=== PATIENT | female | born 1975 | race Caucasian/White ===

== ENCOUNTER 2017-11-21 12:58 | Emergency (ER) | payer MEDICAID, SELFPAY ==
[2017-11-21 12:59] VITALS: BP 151/93; PULSE 75; RESP 17; TEMP 36.9; O2SAT 95; BMI 81.8
--- NOTE | 2017-11-21 14:13 | ED.DCSUM_ITS ---
- ER Visit Summary Date of Service: 11/21/17 Chief Complaint: Abdominal wound evaluation History of Present Illness: The patient is a 42 F orbitally obese female who had a 9 years ago and has had trouble with the wound healing ever since. She states yesterday she noticed that a small area is open that was not before. It is unknown when this occurred. She has no pain or fevers, there is a much larger open area that is also not bothering her. She has trouble bandaging the area because of her obesity and the location on the underside of her pannus. Incidentally she has had about 1 week of upper respiratory infection symptoms with congestion, rhinorrhea, nonproductive cough, dry mouth. No dyspnea with exertion, wheezing, headache, facial pain, fevers. Physical Examination: Other than mild hypertension her vital signs are normal and she is well-appearing. Morbidly obese. On the underside of her pannus there is a vertical scar, there appears to be a chronic dehiscence of this at the caudal aspect of it, maybe 6 cm or so in length, superficial. There is a second 1 superior to this that is around 1-2 cm in length, also superficial and nontender. All of this area is nontender, without any signs of cellulitis or discharge or abscess. Lungs are clear to auscultation throughout, no cervical lymphadenopathy, TMs normal bilaterally. Posterior pharynx is clear. Lips are dry oral mucous membranes are moist. No sinus tenderness. Test Results: n/a Emergency Department Course and Treatment: Reassured. Her wound dehiscence is of unknown age and suturing for healing by primary intent is not indicated. We placed gauze packing/dressing with Mastisol for increased adhesion, and reevaluation with her PCP. No indication for antibiotics at this time for this , or her upper respiratory infection, which I think is viral. Advised that she could take Coricidin high blood pressure or Afrin as needed for symptoms. Treatment Plan: As above, supportive Disposition: Discharge home Impression: Chronic abdominal wound dehiscence Viral upper respiratory infection This note was generated with [employer] software. It may contain incorrect words, spelling, and punctuation that were not noted in review of the chart prior to signing ED Disposition - Plan for ED Patient: Disposition: Home or Assisted Living Chief Complaint: Wound Instructions: ED Burn Wound Check No Infec, ED URI Viral Referrals: Franco Bardales DO [Primary Care Provider] - 3-5 Days
== END 2017-11-21 14:29 | disposition home or self-care (01) ==
PROVIDERS: Emergency Provider Emergency Medicine; Family Provider Student in an Organized Health Care Education/Training Program; PCP Student in an Organized Health Care Education/Training Program
DX: T81.30XA Disruption of wound, unspecified, initial encounter (principal); J06.9 Acute upper respiratory infection, unspecified; E66.01 Morbid (severe) obesity due to excess calories; I10 Essential (primary) hypertension; R73.03 Prediabetes; R11.0 Nausea; Z79.899 Other long term (current) drug therapy
CPT/HCPCS: 99282

== ENCOUNTER 2018-03-08 00:42 | Emergency (ER) | payer MEDICAID, SELFPAY ==
--- NOTE | 2018-03-08 00:42 | DT_ITS ---
This patient was seen during an EMR downtime March 08, 2018 - March 15, 2018. This patient may have a combination of paper and electronic documentation or all paper documentation. All documentation is viewable within the e-chart portion of [employer] for each patient visit.
[2018-03-08 00:43] VITALS: BP 144/86; PULSE 91; RESP 20; TEMP 36.9; O2SAT 98; BMI 97.9
--- NOTE | 2018-03-08 00:54 | CT_ITS ---
STUDY: CT ABDOMEN AND PELVIS WITHOUT CONTRAST REASON FOR EXAM: Female, 42 years old. Hernia, abdominal pain RADIATION DOSAGE (If Supplied By Facility): CTDIvol = ( 24.18 ) mGy, DLP = ( 1579.66 ) mGycm TECHNIQUE: Transaxial 2.5 mm images were obtained from the dome of the diaphragm to the symphysis pubis without oral contrast, and without intravenous contrast. Sagittal and coronal images were reconstructed. This examination is limited for the evaluation of gastrointestinal, solid organs and vascular structures due to the lack of intravenous and oral contrast. There is obesity, the entirety of soft tissue is not imaged. There is poor [id number] ratio limiting the examination. The anterior abdominal wall cutaneous tissue and portion of the peritoneum are not included. Individualized dose optimization techniques were used for this CT. COMPARISON: None. FINDINGS: The visualized lung bases are unremarkable. The visualized portions of the heart are within normal limits. There is decreased attenuation of the enlarged liver consistent with steatosis. There are surgical clips in the gallbladder fossa consistent with a prior cholecystectomy. Normal spleen. Poorly visualized pancreas and bilateral adrenal glands. No overt significant hydronephrosis. Calcification left inferior renal pole likely nonobstructing calculus. Normal visualized stomach. What is seen of the intraperitoneal small and large bowel is nonobstructed. Extremely limited gastrointestinal assessment. There is non-visualization of the appendix. Normal abdominal aorta. Normal inferior vena cava. Normal retroperitoneum. Normal urinary bladder. There is a portion of a left lower anterior abdominal wall hernia containing small bowel partially imaged, opening of the hernia appears to be 4.5 cm coronal image 23. Hernia sac and hernia content detail is not included on the images. Fat attenuation of the inferior pannus partially noted. Retrolisthesis L5 on S1. Joint space narrowing. CT/Abdomen/Pelvis without Cont IMPRESSION: Extremely limited examination, the majority of the anterior abdominal subcutaneous tissue, wall and anterior peritoneal are not included in the [id number]. Portion of a left anterior inferior abdominal wall hernia with an opening of 4.5 cm containing small bowel is imaged. No overt colonic or small bowel obstruction, ascites or pneumoperitoneum on submitted images. Hepatomegaly and hepatic steatosis. Cholecystectomy. Nonobstructing left inferior renal pole calculus. Electronically Signed: Marisol Harris MD at 2:52 EDT , Service support ,
--- NOTE | 2018-03-08 01:01 | ED.VISSUMM ---
- ER Visit Summary Date of Service: 03/08/18 Chief Complaint: [] Abdominal pain History of Present Illness: The patient is a 42 F [] who is extremely morbidly obese weighing over 500 pounds presenting with abdominal pain around her umbilical area. Her mother is at the bedside. The patient is concerned for umbilical hernia. She has an extremely large abdomen with a very large pannus. She reports she is taking Bactrim and Keflex for a nonhealing incision from over 10 years ago. In review of her pill bottles she has been noncompliant since the date of the onset of the antibiotic prescription for this wound. Her main concern however is not this nonhealing wound but rather the pain from her umbilical area. She does report a previous surgical history of cholecystectomy. Past medical history of borderline diabetes, hypertension, enlarged liver, thyroid disease. Physical Examination: [] Afebrile, vital signs stable. 42-year-old female in no acute distress. Extreme morbid obesity. Patient is conversational. Cardiovascular exam is regular rate and rhythm. Lungs are clear to auscultation however there is diminished breath sounds secondary to body habitus. Abdomen is morbidly obese with tenderness around the umbilical area. It is hard to determine on palpation if what I am palpating is an incarcerated hernia or just soft tissue/adipose. Test Results: [] Labs: CT of the abdomen/pelvis without contrast: Emergency Department Course and Treatment: [] Patient given intravenous fluid bolus, Phenergan, Dilaudid. Treatment Plan: [] Disposition: [] Impression: [] This note was generated with [employer] dictation software. It may contain incorrect words, spelling, and punctuation that were not noted in review of the chart prior to signing ED Disposition - Plan for ED Patient: Chief Complaint: Abd Pain Referrals: Franco Bardales DO [Primary Care Provider] -
[2018-03-08] MEDS: proMETHazine 25 MG/ML Syringe 6.25 MG IV (01:12)
[2018-03-08] MEDS: 0.9% Normal Saline 1,000 ML 1000 ML IV (01:13)
[2018-03-08] MEDS: HYDROmorphone 1 MG/ML Syringe IV (01:13)
[2018-03-08 02:44] LABS: Absolute Neutrophil Count 12.2 X10^3/uL (2.0-7.7); Basophil# 0.03 X10^3/uL; Basophil% 0.2 % (0-1); Eosinophil# 0.29 X10^3/uL; Eosinophils% 1.9 % (0-5); Hematocrit 39.5 % (37-47); Hemoglobin 12.3 g/dl (12.0-15.0); Lymphocyte % 14.7 % (19-41); Mean Corp Hgb Conc 31.1 g/gl (32-36); Mean Corpuscular Hgb 29.8 pg (27.0-32.0); Mean Corpuscular Volume 95.6 fL (81-99); Mean Platelet Vol. 10.5 fl (6.2-12.0); Monocyte# 0.82 X10^3/uL; Monocyte% 5.2 % (0-10); Neutrophil # 12.18 X10^3/uL (2.7-7.7); Neutrophil % 77.7 % (47-70); Platelet Count 277 K/mm3 (150-450); RBC Distribution Width CV 14.2 % (11.6-14.6); RBC Distribution Width SD 47.9 fl (35.1-43.9); Red Blood Count 4.13 M/mm3 (4.2-5.4); White Blood Count 15.7 K/mm3 (4.4-11.0)
[2018-03-08 02:49] LABS: POSITIVE COUNT NO; POSITIVE DIFFERENTIAL NO; POSITIVE MORPHOLOGY NO
[2018-03-08 02:50] VITALS: BP 140/70; PULSE 85; RESP 16; O2SAT 94
[2018-03-08 02:52] LABS: AST(SGOT) 21 U/L (15-37); Alanine Aminotransfer ALT/SGPT 23 U/L (13-56); Albumin, Serum 3.6 g/dL (3.2-5.0); Alkaline Phosphatase 51 U/L (45-117); Anion Gap 7 (5-15); BUN 10 mg/dL (7-18); BUN/Creat Ratio 9.7 RATIO (10-20); Chloride 102 mmol/L (98-107); Creatinine, Serum 1.03 mg/dL (0.55-1.02); EST Glomerular Filtration Rate 62 mL/min (>60); Est Glom Filt Rate - Afr Amer 75 mL/min (>60); Estimated Creatinine Clearance 53.69 ml/min; Globulin 4.5 g/dL (2.2-4.2); Glucose 111 mg/dL (74-106); Lipase 168 U/L (73-393); Potassium 3.7 mmol/L (3.5-5.1); Protein, Total 8.1 g/dL (6.4-8.2); Sodium Level 139 mmol/L (136-145)
[2018-03-08 02:55] LABS: International Normalized Ratio 0.9; Prothrombin Time (Protime)PT. 12.6 SECONDS (11.7-14.9)
[2018-03-08 03:04] LABS: Lactic Acid 1.4 mmol/L (0.4-2.0)
[2018-03-08 03:15] VITALS: BP 145/84; RESP 18; O2SAT 96
--- NOTE | 2018-03-15 08:07 | ED.RN ---
see downtime documentation
== END 2018-03-08 07:00 | disposition short-term general hospital (02) ==
LOC: ED 02:06
PROVIDERS: Emergency Provider Emergency Medicine; Family Provider Student in an Organized Health Care Education/Training Program; PCP Student in an Organized Health Care Education/Training Program
DX: R10.9 Unspecified abdominal pain (principal); E11.9 Type 2 diabetes mellitus without complications; I10 Essential (primary) hypertension; E66.01 Morbid (severe) obesity due to excess calories; R16.0 Hepatomegaly, not elsewhere classified; E07.9 Disorder of thyroid, unspecified
CPT/HCPCS: 36415; 74176; 80048; 80076; 83605; 83690; 85025; 85610; 86850; 86900; 96374; 96375; 96376; 99282; 99284; J7030; A4216

== ENCOUNTER 2018-05-06 15:10 | Inpatient (IN) | payer MEDICAID, SELFPAY ==
[2018-05-06 15:11] VITALS: BP 127/84; PULSE 106; RESP 20; TEMP 36.7; O2SAT 98; BMI 90.6
--- NOTE | 2018-05-06 15:30 | EKG12_ITS ---
Test Reason : WOUND Blood Pressure : / mmHG Vent. Rate : 098 BPM Atrial Rate : 098 BPM P-R Int : 166 ms QRS Dur : 086 ms QT Int : 352 ms P-R-T Axes : 062 005 029 degrees QTc Int : 449 ms Normal sinus rhythm Normal ECG Confirmed by GRACIE GILMORE, BROOKE ([id number]), society editor DON FARRELL ([id number]) on 05/10/2018 2:25:42 PM Referred By: FADY Confirmed By:BROOKE BOWMAN MD
--- NOTE | 2018-05-06 15:36 | ED.DCSUM_ITS ---
- ER Visit Summary Date of Service: 05/06/18 Chief Complaint: Abdominal wall infection History of Present Illness: The patient is a 42 F presenting with abdominal wall infection. She states this has been going on for some time and has worsened over the past several days. She was recently on Bactrim and Keflex. She finished these antibiotics over a week ago. She is not currently on antibiotics. She saw her primary care physician today who sent her to the ED for IV antibiotics. Physical Examination: Vitals are stable. Patient is afebrile. Alert no acute distress. HEENT exam is unremarkable. Lungs are clear and equal bilaterally. Heart is regular and tachycardic Abdomen is soft morbidly obese, erythema inferior aspect of the pannus with 8 cm open wound with foul-smelling purulent drainage Extremities: mild bilateral lower extremity erythema Skin is warm and dry. Remainder of exam is unremarkable. Emergency Department Course and Treatment: Patient is given Clindamycin IV. CBC shows a white count of 11.6. Chemistry is unremarkable other than potassium 3.3. Lactic acid 2.2. Blood cultures were sent. EKG is sinus rate of 98 with no acute ischemic changes. Chest x-ray shows right elevated hemidiaphragm which is nonspecific otherwise no acute process. Patient has failed outpatient treatment. Will discuss with the hospitalist for admission for IV antibiotics. Disposition: Admission Impression: Abdominal wall cellulitis This note was generated with [employer] dictation software. It may contain incorrect words, spelling, and punctuation that were not noted in review of the chart prior to signing ED Disposition - Plan for ED Patient: Chief Complaint: Wound Referrals: Franco Bardales DO [Primary Care Provider] -
--- NOTE | 2018-05-06 15:45 | RAD_ITS ---
STUDY: X-RAY CHEST REASON FOR EXAM: Female, 42 years old. Shortness of breath, dyspnea. Abdominal infection. TECHNIQUE: Portable chest AP upright COMPARISON: 05/12/2017. FINDINGS: Elevated right hemidiaphragm. Clear lungs. Normal cardiomediastinal silhouette, donn and pleural margins. No acute osseous or upper abdominal process is evident. RAD/Chest 1 View (Portable) IMPRESSION: Elevated hemidiaphragm on the right. Nonspecific. Otherwise no acute cardiopulmonary process is evident. Electronically Signed: Karthik Smart, at 16:27 EDT Tel , Service support ,
[2018-05-06 17:14] VITALS: BP 122/78; PULSE 102; RESP 18; O2SAT 97
[2018-05-06 17:24] LABS: Absolute Lymphocyte Count 2.75 X10^3/ul (0.83-4.51); Absolute Neutrophil Count 7.7 X10^3/uL (2.0-7.7); Basophil# 0.04 X10^3/uL; Basophil% 0.3 % (0-1); Eosinophil# 0.46 X10^3/uL; Hematocrit 38.1 % (37-47); Hemoglobin 11.7 g/dl (12.0-15.0); Lymphocyte # 2.75 X10^3/ul (4.0); Lymphocyte % 23.7 % (19-41); Mean Corp Hgb Conc 30.7 g/gl (32-36); Mean Corpuscular Hgb 26.8 pg (27.0-32.0); Mean Corpuscular Volume 87.2 fL (81-99); Mean Platelet Vol. 10.6 fl (6.2-12.0); Monocyte# 0.66 X10^3/uL; Monocyte% 5.7 % (0-10); Neutrophil # 7.66 X10^3/uL (2.7-7.7); Neutrophil % 66.1 % (47-70); Platelet Count 293 K/mm3 (150-450); RBC Distribution Width CV 14.3 % (11.6-14.6); RBC Distribution Width SD 45.7 fl (35.1-43.9); Red Blood Count 4.37 M/mm3 (4.2-5.4); White Blood Count 11.6 K/mm3 (4.4-11.0)
[2018-05-06 17:31] LABS: POSITIVE COUNT NO; POSITIVE DIFFERENTIAL NO; POSITIVE MORPHOLOGY NO
[2018-05-06 17:40] LABS: Anion Gap 5 (5-15); BUN 7 mg/dL (7-18); BUN/Creat Ratio 8.8 RATIO (10-20); Calcium,Total 8.9 mg/dL (8.5-10.1); Chloride 106 mmol/L (98-107); EST Glomerular Filtration Rate 83 mL/min (>60); Est Glom Filt Rate - Afr Amer 101 mL/min (>60); Estimated Creatinine Clearance 69.13 ml/min; Glucose 89 mg/dL (74-106); Potassium 3.3 mmol/L (3.5-5.1); Sodium Level 140 mmol/L (136-145)
[2018-05-06 17:51] LABS: Lactic Acid 2.2 mmol/L (0.4-2.0)
--- NOTE | 2018-05-06 17:56 | ED.RN ---
PT VERBALIZES UNABLE TO GIVE URINE SAMPLE AT THIS TIME
[2018-05-06 19:48] VITALS: BP 120/62; PULSE 83; RESP 18; O2SAT 97
--- NOTE | 2018-05-06 19:55 | HP.PCM_ITS ---
Problem List (1) Panniculitis Status: Acute (2) Anxiety and depression Status: Chronic (3) Allergic rhinitis Status: Chronic Qualifiers: Allergic rhinitis trigger: unspecified (4) MARCE (obstructive sleep apnea) Status: Chronic Comment: not on CPAP (pt refusal) (5) Asthma Status: Chronic Qualifiers: Asthma severity: unspecified severity Asthma persistence: unspecified Asthma complication type: unspecified Qualified Code(s): J45.909 - Unspecified asthma, uncomplicated (6) Prediabetes Status: Chronic (7) Hypertension Status: Chronic Qualifiers: Hypertension type: essential hypertension Qualified Code(s): I10 - Essential (primary) hypertension (8) Hypothyroid Status: Chronic Qualifiers: Hypothyroidism type: unspecified Qualified Code(s): E03.9 - Hypothyroidism , unspecified History of Present Illness Date of Admission: 05/06/18 Chief Complaint: Abdominal fold redness, infection ongoing despite outpatient treatment. The patient is a 42 y/o F w/ PMHx: Morbid Obesity, Asthma, MARCE refusing to wear CPAP, Pre-Diabetes mellitus mellitus, HTN, GERD, Anxiety and Depression, Allergic Rhinitis, Hypothyroidism who presents to the [facility] ED on 05/06/18 with history of prolonged difficulties w/ abdominal wall/pannicular cellulitis most recently treated inpatient ~ 2 months prior at [facility] with improvement; however, worsened again recently after completion of outpatient abx therapy (~2 weeks prior) w/ PCP directed abx attempt (3 total including bactrim, keflex and another unclear agent) outpatient but not resolving with no associated fevers or chills. Patient notes she needs to have resolution of the infection in order to continue with future plans for panniculectomy although she does need to loose more weight prior. Workup in the ED included T 98.1, heart rate 106, BP 127/84, respiratory rate 22, 98% on room air, CBC w/ WBC 11.6, Hgb 11.7, Plts 293 without marked shift, BMP w/ K 3.3, LA 2.2, CXR with elevated R hemidiaphragm otherwise not marked appearing, Bld Cx x 2 obtained in the ED. In the ED patient administered Clindamycin. Past Medical History Past Medical History (Chronic Problems): Chronic Problems Anxiety and depression (Chronic) Allergic rhinitis (Chronic) MARCE (obstructive sleep apnea) (Chronic) not on CPAP (pt refusal) Obesity, Class III, BMI 40-49.9 (morbid obesity) (Chronic) Asthma (Chronic) Super-super obese (Chronic) Prediabetes (Chronic) Hypertension (Chronic) Hypothyroid (Chronic) Allergies diphenhydramine HCl [From Benadryl] Allergy (Verified 05/06/18 15:13) Hives metronidazole [From Flagyl] Allergy (Verified 05/06/18 15:13) Rash venom-honey bee [bee venom (honey bee)] Allergy (Verified 05/06/18 15:13) Anaphylaxis aspirin Adverse Reaction (Verified 05/06/18 15:13) Upset Stomach codeine Adverse Reaction (Verified 05/06/18 15:13) Other ibuprofen Adverse Reaction (Verified 05/06/18 15:13) Upset Stomach Penicillins Adverse Reaction (Verified 05/06/18 15:13) Nausea Home Medications: Ambulatory Orders Medication Instructions Recorded Lisinopril/Hydrochlorothiazide 1 tablet PO DAILY 03/08/18 [Zestoretic 10/12.5 Tablet] Loratadine [Claritin] 10 mg PO DAILY 03/08/18 Montelukast Sodium [Singulair] 10 mg PO DAILY 03/08/18 Omeprazole [Prilosec] 20 mg PO DAILY 03/08/18 Sertraline HCl [Zoloft] 100 mg PO DAILY 03/08/18 Dimethicone/Da/Vit A,C,E/Kristian 1 applic TP PRN PRN 05/06/18 [Gold Mustafa Ult Diabetic Cream] Levothyroxine Sodium [Synthroid] 300 mcg PO DAILY 05/06/18 Naproxen Sodium [Aleve] 440 mg PO PRN PRN 05/06/18 Surgical History: - - ?3, cholecystectomy, tonsillectomy. Psychiatric History: Anxiety, Depression PROCESSING ASSISTANT History: No pertinent PROCESSING ASSISTANT history Lives: With Family - Patient lives with her 3 children. Smoking Status: Never smoker Tobacco Use: Non-smoker Alcohol: None Drugs: None - *Family History Maternal History Items: - - Patient notes a maternal and paternal family history of heart disease, diabetes, high cholesterol, cancer. Paternal History Items: - - Patient notes a maternal and paternal family history of heart disease, diabetes, high cholesterol, cancer. Review of Systems Constitutional: Reports: Malaise, Weakness, Fatigue. Denies: Chills, Fever, Weight Change HEENT: Denies: Head Aches, Sinus Congestion, Sinus Drainage Cardiovascular: Denies: Chest Pain, Palpitations Respiratory: Reports: Shortness of breath upon exertion. Denies: Cough, Shortness of breath at rest, Sputum production Gastrointestinal: Denies: Abdominal Pain, Nausea, Vomiting Genitourinary: Denies: Dysuria Musculoskeletal: Reports: Back Pain. Denies: Joint Pain, Joint Tenderness Skin: Reports: Skin Changes. Denies: Rash, Wounds Neurological: Denies: Numbness, Tingling, Focal weakness Psychiatric: Reports: Anxiety, Depression. Denies: Homicidal Ideations, Suicidal Ideations Hematologic/ Lymphatic: Denies: Easy Bruising, Easy Bleeding VTE Information - Inpt Only VTE Present on Admission: No VTE Mechan Device Prophylaxis: SCD's VTE Pharm Prophylaxis ordered?: Yes Subjective: Seated upright in the ED bed, NAD, foul smell immediately upon entering room. Objective: Physical Examination: General: awake, alert, oriented x 3 and cooperative, seated upright in the ED bed in no apparent distress. Skin: normal color, turgor, no icterus, cyanosis except notable RLE appearance ? erythema, warm to touch, TTP, 1+ pitting edema to this region in addition to pannicular erythema, TTP, no fluctuant regions noted. HEENT: AT/NC, EOMI, PERRLA, mildly dry MM, no carotid bruits or JVD noted; however, habitus makes this difficult to exam. Lungs: Diminished BS diffusely, distant, likely secondary to habitus, mild effort, no rales, ronchi or wheezing. Heart: Mildly tachycardic with regular rhythm; no gallop, rub audible. Abdomen: soft, morbidly obese, notable pannus w/ acute panniculitis notable, see skin, expected TTP of this region otherwise NTTP upper abd, ND, distant BS, unable to assess HSM well secondary to morbid obesity. Extremities: no cyanosis, clubbing, see skin. Neurological: patient awake, alert, oriented x 3; cognitive function intact; pupils equally reactive to light and accomodation; cranial nerves II-XII grossly normal, moving all 4 extremities, no focal deficits, strength severely globally decreased secondary to habitus and acute presentation. Psychiatric: affect appears normal, no acute evidence of depressive or anxiety feelings. - Physical Exam Vital Signs Temp Pulse Resp BP Pulse Ox 98.1 F 102 H 18 122/78 H 97 05/06/18 15:11 05/06/18 17:14 05/06/18 17:14 05/06/18 17:14 05/06/18 17:14 Oxygen Delivery Method Room Air Weight: 480 lb Body Mass Index (BMI) 90.6 Laboratory Tests Past 24 Hrs 05/06/18 05/06/18 05/06/18 16:50 16:50 16:50 WBC 11.6 H RBC 4.37 Hgb 11.7 L Hct 38.1 MCV 87.2 MCH 26.8 L MCHC 30.7 L RDW 14.3 RDW Differential 45.7 H Plt Count 293 MPV 10.6 Immature Gran % (Auto) 0.200 Neut % (Auto) 66.1 Lymph % (Auto) 23.7 [place] % (Auto) 5.7 Eos % (Auto) 4.0 Baso % (Auto) 0.3 Absolute Neuts (auto) 7.7 Absolute Lymphs (auto) 2.75 Total Counted Not Reportable Sodium 140 Potassium 3.3 L Chloride 106 Carbon Dioxide 29.0 Anion Gap 5 BUN 7 Creatinine 0.80 Estim Creat Clear Calc 69.13 Est GFR (MDRD) Af Amer 101 Est GFR (MDRD) Non-Af 83 BUN/Creatinine Ratio 8.8 L Glucose 89 Lactic Acid 2.2 H Calcium 8.9 Assessment/Plan All Active Problems Severe sepsis (Acute) UTI (urinary tract infection) (Acute) Panniculitis (Acute) Recurrent cellulitis (Acute) Left sided abdominal pain (Acute) UTI (urinary tract infection) (Acute) The patient is a 42 y/o F w/ PMHx: Morbid Obesity, Asthma, MARCE refusing to wear CPAP, Pre-Diabetes mellitus mellitus, HTN, GERD, Anxiety and Depression, Allergic Rhinitis, Hypothyroidism who presents to the [facility] ED on 05/06/18 with history of prolonged difficulties w/ abdominal wall/pannicular cellulitis most recently treated inpatient ~ 2 months prior at [facility] with improvement; however, worsened again recently w/ PCP directed abx attempt outpatient but not resolving with no associated fevers or chills. (1) Severe Sepsis secondary to Abdominal Wall, Pannicular Cellulitis, Failed outpatient Abx Therapies w/ Intertrigo, ? Concurrent RLE anterior tidwell Cellulitis versus Chronic Venous Stasis Changes: ED evaluation w/ tachycardia, increased RR, elevated LA. Will admit to [facility], maintain on IV vanc and zosyn, if able will obtain Wound Cx and Wound MRSA PCR, plan repeat CBC in AM, continue pannus elevation as able, monitor erythema outline with VS checks, attempt to keep pannus region clean and dry, consult Wound RN. Mag pending. HgBA1c pending. DVT US RLE pending. Repeat LA per protocol. (2) Hypertension: Continue home regimen including lisinopril, hydrochlorothiazide, PRN hydralazine. (3) Diabetes mellitus type II: Not on regimen, HgbA1c pending, ADA diet, accu checks w/ ISS. (4) Morbid Obesity: Weight loss and lifestyle changes encouraged, nutrition consulted. (5) Hypothyroidism: Continue home synthroid regimen. (6) Allergic rhinitis: Continue home Claritin and Singulair regimen. (7) Anxiety and Depression: Continue home zoloft regimen. (8) GERD: Famotidine. (9) MARCE: CPAP non-compliant. (10) Asthma: Likely hypoventilation syndrome contributing, PRN albuterol, HOB, IS. (11) Hypokalemia: Admission K+ 3.3, supplementation given, repeat level in AM. (12) DVT Prophylaxis: SCDs, lovenox 40 BID given habitus. Code Visit Inpatient E&M: 53709 Init Hosp L3
--- NOTE | 2018-05-06 20:12 | VDLE_ITS ---
Reason For Study: RLE Pain RIGHT GSV is normal. POP V is compressible, spontaneous, phasic, competent and demonstrates normal augmentation. T/P Trunk is compressible. PTV is compressible. RT PerV is compressible. Unable to visualize Rt CFV, Rt FV prox/mid, Rt GSV thigh, Rt PTV prox, and Rt PeroV prox due to pt body habitus. Procedure Exam performed portable in patient room. The study was technically difficult. The study was technically limited. A preliminary report was called and/or faxed to [facility]. Interpretation Summary What was visualized of the right lower extremity deep venous system appears patent and compressible. There is no evidence of right lower extremity deep vein thrombosis. However, the right common femoral vein, proximal and mid- femoral vein, proximal posterior tibial vein and proximal peroneal vein were not visualized due to the patient's body habitus. The right greater saphenous vein appears patent and compressible, though the greater saphenous vein in the thigh was not visualized. Ordering Physician: Cuca Mast Referring Physician: Franco Jacques Performed By: Anna Cespedes, SHARAD, RVT
[2018-05-06 20:31] VITALS: BMI 90.6
[2018-05-06 20:34] VITALS: BP 130/74; PULSE 86; RESP 20; TEMP 36.9; O2SAT 97
[2018-05-06 20:47] VITALS: BMI 90.7
[2018-05-06 21:02] LABS: Hemoglobin A1c 5.7 % (4.2-6.3)
[2018-05-06 21:08] LABS: Reflex Lactate? Y
[2018-05-06] MEDS: 0.9% Normal Saline 1,000 ML 125 ML IV (21:15)
[2018-05-06] MEDS: Nystatin Powder 15gm Bottle 1 APPLIC TOPICAL (21:43)
[2018-05-06] MEDS: Enoxaparin 40 MG/0.4 ML Syringe SC (21:44)
[2018-05-06] MEDS: Famotidine 20 MG Tablet PO (21:44)
[2018-05-06 22:00] LABS: Bedside Glucose 81 mg/dL (70-110)
[2018-05-06 22:03] LABS: Lactic Acid 1.1 mmol/L (0.4-2.0)
[2018-05-06] MEDS: Piperacil/Tazobactam 3.375 GM/50 ML ML IV (22:46)
[2018-05-06 23:45] VITALS: O2SAT 96
[2018-05-07] VITALS (8 sets, daily range): BP systolic 112–122; BP diastolic 68–78; PULSE 74–91; RESP 18–20; TEMP 36.9–37.2; O2SAT 93–97
[2018-05-07 06:08] LABS: Absolute Lymphocyte Count 1.73 X10^3/ul (0.83-4.51); Absolute Neutrophil Count 4.1 X10^3/uL (2.0-7.7); Basophil# 0.03 X10^3/uL; Basophil% 0.4 % (0-1); Eosinophil# 0.45 X10^3/uL; Eosinophils% 6.5 % (0-5); Hemoglobin 10.4 g/dl (12.0-15.0); Lymphocyte # 1.73 X10^3/ul (4.0); Lymphocyte % 24.9 % (19-41); Mean Corp Hgb Conc 30.6 g/gl (32-36); Mean Corpuscular Hgb 27.1 pg (27.0-32.0); Mean Corpuscular Volume 88.5 fL (81-99); Mean Platelet Vol. 10.4 fl (6.2-12.0); Monocyte# 0.64 X10^3/uL; Monocyte% 9.2 % (0-10); Neutrophil # 4.08 X10^3/uL (2.7-7.7); Neutrophil % 58.9 % (47-70); Platelet Count 274 K/mm3 (150-450); RBC Distribution Width CV 14.3 % (11.6-14.6); RBC Distribution Width SD 45.6 fl (35.1-43.9); Red Blood Count 3.84 M/mm3 (4.2-5.4); White Blood Count 6.9 K/mm3 (4.4-11.0)
[2018-05-07 06:09] LABS: POSITIVE COUNT NO; POSITIVE DIFFERENTIAL NO; POSITIVE MORPHOLOGY NO
[2018-05-07 06:32] LABS: Anion Gap 10 (5-15); BUN 7 mg/dL (7-18); Calcium,Total 8.1 mg/dL (8.5-10.1); Chloride 109 mmol/L (98-107); EST Glomerular Filtration Rate 97 mL/min (>60); Est Glom Filt Rate - Afr Amer 118 mL/min (>60); Glucose 91 mg/dL (74-106); Potassium 3.5 mmol/L (3.5-5.1); Sodium Level 144 mmol/L (136-145)
[2018-05-07] MEDS: Piperacil/Tazobactam 3.375 GM/50 ML ML IV ×2 (06:48→14:21)
[2018-05-07] MEDS: Levothyroxine 150 MCG Tablet 300 MCG PO (06:48)
[2018-05-07] MEDS: Nystatin Powder 15gm Bottle 1 APPLIC TOPICAL ×3 (06:48→21:31)
[2018-05-07 06:55] LABS: Bedside Glucose 102 mg/dL (70-110)
[2018-05-07] MEDS: 0.9% Normal Saline 1,000 ML 125 ML IV ×2 (07:30→17:04)
[2018-05-07] MEDS: Enoxaparin 40 MG/0.4 ML Syringe SC ×2 (09:45→21:32)
[2018-05-07] MEDS: Sertraline 100 MG Tablet PO (09:46)
[2018-05-07] MEDS: Famotidine 20 MG Tablet PO ×2 (09:46→21:31)
[2018-05-07] MEDS: HYDROCHLOROTHIAZIDE 12.5 MG CAPSULE PO (09:46)
[2018-05-07] MEDS: Lisinopril 10 MG Tablet PO (09:46)
[2018-05-07] MEDS: Loratadine 10 MG Tablet PO (09:46)
[2018-05-07] MEDS: Montelukast 10 MG Tablet PO (09:46)
--- NOTE | 2018-05-07 11:44 | CASEMGMT ---
JENIFER SHAH Face to Face with patient for initial transition planning/care coordination assessment. RN PABLO introduced self and role at [facility]. Patient lying, alert and oriented. Patient willing to participate in assessment and is able to answer all questions appropriately. Care providers, pharmacy, and demographics verified. See link attached. Patient wishes to discharge home with resumption of alf HHC with [facility]. Patient states she has no further needs or concerns at this time. CM to follow for discharge planning needs that may arise. Disposition Plan: Patient to discharge home with resumption of HHC, family support, and follow-up plans in place.
[2018-05-07 11:46] LABS: Bedside Glucose 93 mg/dL (70-110)
[2018-05-07] MEDS: Furosemide 40 MG/4 ML Vial IV ×2 (18:32→21:25)
--- NOTE | 2018-05-07 19:09 | PCM.CONS.GEN ---
Reason for Consult Date of Consultation: 05/07/18 Reason for Consultation: Nonhealing infected ulcer lower anterior abdominal wall with massive panniculus and panniculitis. REFERRING PHYSICIAN: Dr. Mast. [employer]BER: Dr. Hendricks. History of Present Illness: The patient is a 42 year old F with a history of morbid obesity and borderline diabetes who presented to the ED with worsening pain and redness and swelling in her massive abdominal panniculus with a nonhealing infected ulcer and panniculitis. She has been treated for her intermittent bouts of abdominal panniculitis, the most recent in [place]. Recently she was placed on oral antibiotics for another episode and has worsening symptomatology. In the ED, her WBC was 11.6 and her Lactate was 2.2. Repeat labs the next morning showed the WBC had improved to 6.9 and the Lactate had decreased to 1.1. She was given Cleocin in the ED. On the floor she was started on Ancef. Patient states she has an umbilical hernia and she was told that will be repaired in the future after she loses weight. She was in the ED back in 03/[address] Abdomen and Pelvis was done. It showed extremely limited examination, the majority of the anterior abdominal subcutaneous tissue, wall and anterior peritoneal are not included in the [id number]. Portion of a left anterior inferior abdominal wall hernia with an opening of 4.5 cm containing small bowel is imaged. No overt colonic or small bowel obstruction, ascites or pneumoperitoneum on submitted images. Hepatomegaly and hepatic steatosis. Cholecystectomy. Nonobstructing left inferior renal pole calculus. I was asked to evaluate this patient for surgical options for treatment. Past Medical History Past Medical History (Chronic Problems): Chronic Problems Erythema intertrigo (Chronic) abdominal wall skin crease intertrigo Abdominal panniculus, symptomatic (Chronic) Skin ulcer of abdominal wall with fat layer exposed (Chronic) Anxiety and depression (Chronic) Allergic rhinitis (Chronic) MARCE (obstructive sleep apnea) (Chronic) not on CPAP (pt refusal) Obesity, Class III, BMI 40-49.9 (morbid obesity) (Chronic) Asthma (Chronic) Super-super obese (Chronic) Prediabetes (Chronic) Hypertension (Chronic) Hypothyroid (Chronic) Allergies diphenhydramine HCl [From Benadryl] Allergy (Verified 05/06/18 15:13) Hives metronidazole [From Flagyl] Allergy (Verified 05/06/18 15:13) Rash venom-honey bee [bee venom (honey bee)] Allergy (Verified 05/06/18 15:13) Anaphylaxis aspirin Adverse Reaction (Verified 05/06/18 15:13) Upset Stomach codeine Adverse Reaction (Verified 05/06/18 15:13) Other ibuprofen Adverse Reaction (Verified 05/06/18 15:13) Upset Stomach Penicillins Adverse Reaction (Verified 05/06/18 15:13) Nausea Current Medications Acetaminophen (Tylenol) 650 mg PO Q6H PRN Al Hydroxide/Mg Hydroxide (Mylanta Ii) 30 ml PO Q6H PRN Albuterol Sulfate (Ventolin Aerosols) 2.5 mg INHALATION Q2H PRN Enoxaparin Sodium (Lovenox) 40 mg SC BID [facility] Famotidine (Pepcid) 20 mg PO BID [facility] Furosemide (Lasix) 40 mg IV Q8 [facility] Cefazolin Sodium () 1 gm in 50 mls @ 100 mls/hr IV Q8 [facility] Levothyroxine Sodium (Synthroid) 300 mcg PO DAILY@0600 [facility] Lisinopril (Zestril) 10 mg PO DAILY [facility] Loratadine (Claritin) 10 mg PO DAILY [facility] Magnesium Hydroxide (Milk Of Magnesia) 30 ml PO DAILY PRN Montelukast Sodium (Singulair) 10 mg PO DAILY [facility] Morphine Sulfate () 2 - 4 mg IV Q3H PRN Morphine Sulfate () 1 - 2 mg IV Q4H PRN Nutritional Formula (Lactose Free) (Glucerna Shake) 120 ml PO TIDCM [facility] Nystatin (Mycostatin Powder) 1 applic TOPICAL TID [facility] Ondansetron HCl (Zofran) 4 mg IV Q8H PRN Oxycodone HCl (Oxyir) 5 mg PO Q4H PRN Potassium Chloride (K-Dur) 20 meq PO BIDCM [facility] Promethazine HCl (Phenergan) 12.5 mg IV Q6H PRN Sertraline HCl (Zoloft) 100 mg PO DAILY [facility] Home Medications: Ambulatory Orders Medication Instructions Recorded Lisinopril/Hydrochlorothiazide 1 tablet PO DAILY 03/08/18 [Zestoretic 10/12.5 Tablet] Loratadine [Claritin] 10 mg PO DAILY 03/08/18 Montelukast Sodium [Singulair] 10 mg PO DAILY 03/08/18 Omeprazole [Prilosec] 20 mg PO DAILY 03/08/18 Sertraline HCl [Zoloft] 100 mg PO DAILY 03/08/18 Dimethicone/Da/Vit A,C,E/Kristian 1 applic TP DAILY PRN PRN 05/06/18 [Gold Mustafa Ult Diabetic Cream] Levothyroxine Sodium [Synthroid] 300 mcg PO DAILY 05/06/18 Naproxen Sodium [Aleve] 440 mg PO Q12H PRN PRN 05/06/18 Surgical History: - - ?3, cholecystectomy, tonsillectomy. 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 Smoking Status: Never smoker Tobacco Use: Non-smoker Alcohol: None Drugs: None - *Family History Maternal History Items: - - Patient notes a maternal and paternal family history of heart disease, diabetes, high cholesterol, cancer. Paternal History Items: - - Patient notes a maternal and paternal family history of heart disease, diabetes, high cholesterol, cancer. Review of Systems Comment: General - Denies fever, fatigue, and weight loss. Eyes - Denies cataracts and glaucoma. ENT - Denies nasal congestion and sore throat. Endocrine - Denies excessive thirst and urination. Has borderline diabetes. Skin - Denies skin cancer. Has massive abdominal panniculus with non healing infected ulcer and panniculitis. Musculoskeletal - Denies joint pain, joint stiffness, weakness of muscles and joints, back pain, and arthritis. Neuro - Denies headaches. Cardiovascular - Denies chest pain, fatigue, and shortness of breath with exertion. Psych - Denies anxiety and depression. Respiratory - Denies chronic cough and shortness of breath. Gastrointestinal - Denies nausea, vomiting, diarrhea, and constipation. Hematologic - Denies abnormal bruising and bleeding. Genitourinary - Denies hematuria and urinary frequency. Patient Problems: Active and Suspected Problems Panniculitis (Acute) Incisional hernia (Acute) - Physical Exam General - Alert and Oriented HEENT - PERRL. EOMI. Throat is clear. Neck - Supple and nontender. No cervical adenopathy. Lungs - Clear to auscultation. Heart - Regular rate and rhythm. Abdomen - Massive abdominal panniculus with panniculitis. Tenderness to palpation lower anterior abdominal wall. Large ulceration in midline scar. Measures 15 cm. Exudate present. Surrounding cellulitis. Firm dependent edema present. No purulent drainage noted. Lower midline scar from umbilicus to pubis. Extensive abdominal wall skin crease intertrigo. Extremities - FROM. No axillary adenopathy. Radial pulses are palpable. Neuro - CN II-XII grossly intact. Psych - Normal mood and affect. Vital Signs Temp Pulse Resp BP Pulse Ox 98.9 F 80 18 120/69 97 05/07/18 17:01 05/07/18 17:01 05/07/18 17:01 05/07/18 17:01 05/07/18 17:01 Oxygen Delivery Method Room Air Weight: 479 lb 15.988 oz Body Mass Index (BMI) 90.6 Intake and Output for Last 24 Hours 05/05/18 05/06/18 05/07/18 23:59 23:59 23:59 Intake Total 3169 / 3169 Output Total 725 / 725 Balance 2444 / 2444 Laboratory Tests Past 24 Hrs 05/06/18 05/07/18 05/07/18 21:23 05:36 05:36 WBC 6.9 RBC 3.84 L Hgb 10.4 L Hct 34.0 L MCV 88.5 MCH 27.1 MCHC 30.6 L RDW 14.3 RDW Differential 45.6 H Plt Count 274 MPV 10.4 Immature Gran % (Auto) 0.100 Neut % (Auto) 58.9 Lymph % (Auto) 24.9 [place] % (Auto) 9.2 Eos % (Auto) 6.5 H Baso % (Auto) 0.4 Absolute Neuts (auto) 4.1 Absolute Lymphs (auto) 1.73 Total Counted Not Reportable Sodium 144 Potassium 3.5 Chloride 109 H Carbon Dioxide 25.0 Anion Gap 10 BUN 7 Creatinine 0.70 Estim Creat Clear Calc 79.00 Est GFR (MDRD) Af Amer 118 Est GFR (MDRD) Non-Af 97 BUN/Creatinine Ratio 10.0 Glucose 91 Lactic Acid 1.1 Calcium 8.1 L POC Glucose 05/07/18 05/07/18 05/06/18 11:38 06:39 21:49 POC Glucose 93 102 81 Diagnostic Data Chest X-Ray 05/06/18 15:45 IMPRESSION: Elevated hemidiaphragm on the right. Nonspecific. Otherwise no acute cardiopulmonary process is evident. Electronically Signed: Karthik Smart, at 16:27 EDT Tel , Service support , Assessment/Plan All Active Problems Panniculitis (Acute) Incisional hernia (Acute) Severe sepsis (Acute) 1. 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 2. Borderline diabetes. 3. Abdominal wall skin crease intertrigo. 4. Left anterior inferior abdominal wall hernia containing small bowel (umbilical per patient?). 5. Morbid obesity. 6. Incisional hernia. Patient was started on Ancef. Based on previous cultures and her risk of infection, I will change the antibiotics to Vancomycin, Cleocin, and Levaquin. Will check a wound culture. Her previous cultures from last May showed Staphylococcus aureus, Streptococcus group G, and E. coli. Will begin wound care with half strength Dakin's twice a day to the abdominal wall infected ulcer. Will repeat the CT Abdomen and Pelvis with contrast. Presence of a hernia will complicate the decision making. Most of the redness and swelling and pain and ulceration is on the right abdominal wall. Excision of this infected tissue can be done. Usually requires extension to the abdominal wall especially if necrotizing infection is seen at the time of surgery. Even the limited excisional debridement and panniculectomy (which would still be extensive due to her size) would be risky for the patient and the presence of the hernia would increase that risk tremendously. If the CT shows the hernia is mostly an umbilical hernia, the excisional debridement is limited to the tissue below the umbilicus. However, before I proceed with any operative debridement, General Surgery evaluation would be needed and they would need to be available if the hernia is worse than expected and needed to be repaired. If they think that surgery would be too high risk for [facility], then she would need to go to a tertiary center for further treatment. She states she has been in [place] before. Anticipate increased metabolic demands from her ulcerations and infection. Will check a Prealbumin. Encourage nutritional supplementation with protein to help the healing process. If surgery is done here, then postop wound care would be with the [facility]. Post discharge, can then followup at the Wound Center. Any tissue that is removed would be sent to Pathology for analysis to rule out carcinoma and to Microbiology for culture. A positive culture may necessitate antibiotic modification. Patient was informed of the risks and complications of the procedure including alternatives to surgery. These were discussed with the patient personally. Patient voices understanding and wishes to proceed. She understands that surgery may need to be done at a tertiary center. Code Visit Inpatient E&M: 26055 Init Hosp L2 - ICD-10 - L98.492, E65, M79.3, R73.03, L30.4, K43.2, E66.9
--- NOTE | 2018-05-07 19:30 | PN_ITS ---
Subjective: She was seen and examined today, mainly she has severe edema over the abdominal wall, there is an orange peel appearance to the skin. There is also a pressure injury over an old scarred area from a previous . There is odor from the area but I think this is mainly from poor hygiene and possibly yeast. Patient was admitted yesterday for possible severe sepsis, she did not meet criteria however for sepsis as there were not enough servers criteria-admitting physician documented an increased respiratory rate above 20 but there was no documentation the patient's chart to support this. Patient had history of wound on her abdomen in the past which grew out E. coli and strep group G, patient's white blood cell count today was 6.9. I have decided to stop the patient's vancomycin and Zosyn and place her on Ancef, I have plastic surgery see the patient for consultation today. Patient has super morbid obesity, this will greatly complicate her wound healing and she also has hygiene issues that are unusual for a patient of age 42. - Physical Exam General: Alert, Oriented x3, Cooperative, No apparent distress, Well developed HEENT: Atraumatic, PERRLA, EOMI, Normocephalic Oral: Moist Mucosa Neck: Supple, No JVD, Trachea Midline, Thyroid Normal Size and Texture Lungs: Clear to auscultation, Normal air movement, No rhonchi, No wheeze Cardiovascular: Regular rate, Regular Rhythm, Normal S1, Normal S2, No murmurs, No Ectopic Activity, PMI Normal, No rub noted, No Gallop Abdomen: Bowel Sounds Present, Soft, Non Tender, Non-Distended, Obese, No hernias noted, - - There is an open area over a scarred area of her lower abdomen which is open, this area is approximately 6 cm in diameter and is a shallow wound. I see no purulent material coming from the area at the time my examination today Extremities: No clubbing, No cyanosis, Capillary Refill Less than 3 Seconds Skin: No rashes, No breakdown Musculoskeletal: No Tenderness to Palpation of Joints or Extremities Neurological: Cranial nerves II-XII grossly intact, Neuro grossly intact, Sensory exam intact to light touch and pain, Coordination normal Psych/Mental Status: Normal Affect, Appropriate, Alert and oriented to time, place, person, mood and affect Vital Signs Temp Pulse Resp BP Pulse Ox 98.9 F 80 18 120/69 97 05/07/18 17:01 05/07/18 17:01 05/07/18 17:01 05/07/18 17:01 05/07/18 17:01 Oxygen Delivery Method Room Air Weight: 217.724 kg Body Mass Index (BMI) 90.6 Intake and Output for Last 24 Hours 05/05/18 05/06/18 05/07/18 23:59 23:59 23:59 Intake Total 3169 / 3169 Output Total 725 / 725 Balance 2444 / 2444 Laboratory Tests Past 24 Hrs 05/06/18 05/07/18 05/07/18 21:23 05:36 05:36 WBC 6.9 RBC 3.84 L Hgb 10.4 L Hct 34.0 L MCV 88.5 MCH 27.1 MCHC 30.6 L RDW 14.3 RDW Differential 45.6 H Plt Count 274 MPV 10.4 Immature Gran % (Auto) 0.100 Neut % (Auto) 58.9 Lymph % (Auto) 24.9 [place] % (Auto) 9.2 Eos % (Auto) 6.5 H Baso % (Auto) 0.4 Absolute Neuts (auto) 4.1 Absolute Lymphs (auto) 1.73 Total Counted Not Reportable Sodium 144 Potassium 3.5 Chloride 109 H Carbon Dioxide 25.0 Anion Gap 10 BUN 7 Creatinine 0.70 Estim Creat Clear Calc 79.00 Est GFR (MDRD) Af Amer 118 Est GFR (MDRD) Non-Af 97 BUN/Creatinine Ratio 10.0 Glucose 91 Lactic Acid 1.1 Calcium 8.1 L POC Glucose 05/07/18 05/07/18 05/06/18 11:38 06:39 21:49 POC Glucose 93 102 81 Medical Necessity - Tobacco Use Smoking Status: Never smoker Tobacco Use: Non-smoker Assessment/Plan All Active Problems Severe sepsis (Acute) UTI (urinary tract infection) (Acute) Panniculitis (Acute) Recurrent cellulitis (Acute) Left sided abdominal pain (Resolved) UTI (urinary tract infection) (Resolved) #1 abdominal wall cellulitis complicated by generalized edema in the abdominal wall which appears to be chronic in nature, patient's antibiotics were changed today, I have placed her on IV Lasix to try to diurese her, BMP will be repeated tomorrow #2 super morbid obesity-complicates care greatly #3 large panniculus #4 poor hygiene #5 hypokalemia-resolved #6 poor compliance with medical regimen-patient history antibiotics a week ago, she states she was supposed to make an appointment with wound care center who called her but she was unable to because she is moving from her house #7 obstructive sleep apnea-noncompliant with treatment #8 asthma by history #9 hypertension #10 depression and anxiety Code Visit Inpatient E&M: 18739 Subs Hosp L2
[2018-05-07] MEDS: Acetaminophen 325 MG Tablet 650 MG PO (21:26)
[2018-05-07] MEDS: Cefazolin 1 GM/50 ML BAG IV (21:26)
[2018-05-07 22:30] LABS: Vancomycin, Trough Level 10.6 ug/mL (5.0-15.0)
[2018-05-08 04:09] VITALS: BP 107/66; PULSE 79; RESP 18; TEMP 36.6; O2SAT 97
[2018-05-08] MEDS: Levothyroxine 150 MCG Tablet 300 MCG PO (05:52)
[2018-05-08] MEDS: Cefazolin 1 GM/50 ML BAG IV (05:55)
[2018-05-08] MEDS: Furosemide 40 MG/4 ML Vial IV ×3 (05:55→21:56)
[2018-05-08] MEDS: Nystatin Powder 15gm Bottle 1 APPLIC TOPICAL ×3 (05:55→21:57)
[2018-05-08 06:58] VITALS: O2SAT 96
[2018-05-08 07:25] LABS: Anion Gap 9 (5-15); BUN 7 mg/dL (7-18); BUN/Creat Ratio 10.5 RATIO (10-20); Calcium,Total 8.3 mg/dL (8.5-10.1); Chloride 105 mmol/L (98-107); Creatinine, Serum 0.67 mg/dL (0.55-1.02); EST Glomerular Filtration Rate 103 mL/min (>60); Est Glom Filt Rate - Afr Amer 124 mL/min (>60); Estimated Creatinine Clearance 82.54 ml/min; Glucose 96 mg/dL (74-106); Potassium 3.5 mmol/L (3.5-5.1); Sodium Level 143 mmol/L (136-145)
[2018-05-08 08:08] VITALS: BP 123/69; PULSE 72; RESP 16; TEMP 36.7; O2SAT 99
--- NOTE | 2018-05-08 09:54 | PCM.PN.HOSP ---
Subjective: States that the some discomfort in her lower pannus. Patient did have some erythema involving which seems to be improving. Vitals/I&O's: Vital Signs Temp Pulse Resp BP Pulse Ox 36.7 C 72 16 123/69 H 99 05/08/18 08:08 05/08/18 08:08 05/08/18 08:08 05/08/18 08:08 05/08/18 08:08 Oxygen Delivery Method Room Air Weight: 217.724 kg Body Mass Index (BMI) 90.6 Intake and Output for Last 24 Hours 05/06/18 05/07/18 05/08/18 23:59 23:59 23:59 Intake Total 3169 / 3169 1026 / 1026 Output Total 1625 / 1625 6025 / 6025 Balance 1544 / 1544 -4999 / -4999 General: Alert, Cooperative, No apparent distress HEENT: Atraumatic, Normocephalic Oral: Moist Mucosa, No Gingival or Mucosal Lesions/ Ulcerations Neck: No Nodes, Thyroid Normal Size and Texture Abdomen: Obese, - - Large pannus Extremities: No Calf Tenderness, Edema - Trace Skin: - - Patient with large pannus and patient has a old vertical scar and on the underside of the pannus dressings with some serous drainage noted. Did not remove the dressing. Patient had some mild erythema of her right anterior tidwell that had areas of demarcation. Appears to be withdrawn from the lines of demarcation. Musculoskeletal: No Tenderness to Palpation of Joints or Extremities, No Muscle Wasting Psych/Mental Status: Normal Affect, Appropriate Laboratory Results 05/07/18 11:38: POC Glucose 93 05/07/18 21:53: Vancomycin Trough 10.6 05/08/18 06:18: Sodium 143, Potassium 3.5, Chloride 105, Carbon Dioxide 29.0, Anion Gap 9, BUN 7, Creatinine 0.67, Estim Creat Clear Calc 82.54, Est GFR (MDRD) Af Amer 124, Est GFR (MDRD) Non-Af 103, BUN/Creatinine Ratio 10.5, Glucose 96, Calcium 8.3 L Current Medications Acetaminophen (Tylenol) 650 mg PO Q6H PRN PRN PRN Reason: Mild Pain (scale 0-3)/T>100.7 Last Admin: 05/07/18 21:26 Dose: 650 mg Al Hydroxide/Mg Hydroxide (Mylanta Ii) 30 ml PO Q6H PRN PRN PRN Reason: Gastric burning Albuterol Sulfate (Ventolin Aerosols) 2.5 mg INHALATION Q2H PRN PRN PRN Reason: dyspnea, wheezing Enoxaparin Sodium (Lovenox) 40 mg SC BID [facility] Last Admin: 05/07/18 21:32 Dose: 40 mg Famotidine (Pepcid) 20 mg PO BID [facility] Last Admin: 05/07/18 21:31 Dose: 20 mg Furosemide (Lasix) 40 mg IV Q8 [facility] Last Admin: 05/08/18 05:55 Dose: 40 mg Sodium Chloride () 250 mls @ 15 mls/hr IV .[id number] PRN PRN Reason: SALINE FLUSH Cefazolin Sodium () 1 gm in 50 mls @ 100 mls/hr IV Q8 [facility] Last Admin: 05/08/18 05:55 Dose: 100 mls/hr Levothyroxine Sodium (Synthroid) 300 mcg PO DAILY@0600 [facility] Last Admin: 05/08/18 05:52 Dose: 300 mcg Lisinopril (Zestril) 10 mg PO DAILY [facility] Last Admin: 05/07/18 09:46 Dose: 10 mg Loratadine (Claritin) 10 mg PO DAILY [facility] Last Admin: 05/07/18 09:46 Dose: 10 mg Magnesium Hydroxide (Milk Of Magnesia) 30 ml PO DAILY PRN PRN PRN Reason: Constipation Montelukast Sodium (Singulair) 10 mg PO DAILY [facility] Last Admin: 05/07/18 09:46 Dose: 10 mg Morphine Sulfate () 2 - 4 mg IV Q3H PRN PRN PRN Reason: Severe Pain (pain scale 6-10) Morphine Sulfate () 1 - 2 mg IV Q4H PRN PRN PRN Reason: Moderate Pain (pain scale 4-5) Nutritional Formula (Lactose Free) (Glucerna Shake) 120 ml PO TIDCM [facility] Last Admin: 05/08/18 08:19 Dose: Not Given Nystatin (Mycostatin Powder) 1 applic TOPICAL TID [facility] PRN Reason: Protocol Last Admin: 05/08/18 05:55 Dose: 1 applicatio Ondansetron HCl (Zofran) 4 mg IV Q8H PRN PRN PRN Reason: NAUSEA Oxycodone HCl (Oxyir) 5 mg PO Q4H PRN PRN PRN Reason: Moderate Pain (pain scale 4-5) Potassium Chloride (K-Dur) 20 meq PO BIDCM [facility] Last Admin: 05/08/18 08:20 Dose: 20 meq Promethazine HCl (Phenergan) 12.5 mg IV Q6H PRN PRN PRN Reason: NAUSEA/VOMITING Sertraline HCl (Zoloft) 100 mg PO DAILY [facility] Last Admin: 05/07/18 09:46 Dose: 100 mg Sodium Chloride () 5 - 30 ml IV UD PRN PRN Reason: SALINE FLUSH Medical Necessity - Tobacco Use Smoking Status: Never smoker Tobacco Use: Non-smoker Assessment/Plan All Active Problems Severe sepsis (Acute) UTI (urinary tract infection) (Acute) Panniculitis (Acute) Recurrent cellulitis (Acute) Left sided abdominal pain (Resolved) UTI (urinary tract infection) (Resolved) 1. Severe sepsis Present on arrival Secondary to panniculitis/cellulitis Resolved 2. Panniculitis/cellulitis Patient has had a history of vertical scar related with an emergent she had with her 22-year-old and then had a 19-year-old and 10-year-old twins who all underwent C-sections. Patient has had some dehiscence of that wound. Patient was seen by Dr. foster and the plan is to take her to surgery either on over the Patient has been recommended weight loss on numerous occasions as patient is very large pannus continues to add same amount attention to this wound and continue to make it worse. Patient does have some edema and has been started on Lasix Blood cultures from the 2nd so far negative on Cefazolin. 3. Morbid obesity Causing significant morbidity for this patient 4. Obstructive sleep apnea Patient has not been able to tolerate a variety of CPAP masks, including full face, nasal pillows and the like. Patient said that she gets too claustrophobic Advised patient to follow-up with otolaryngology as outpatient to see if a UPPP would be advisable Feel that her untreated sleep and may be contributing to potentially right heart strain and pulmonary hypertension that may lead to some of his edema that we are encountering 5. DVT prophylaxis with Lovenox Code Visit Inpatient E&M: 18469 Subs Hosp L2
[2018-05-08] MEDS: Famotidine 20 MG Tablet PO ×2 (09:56→21:56)
[2018-05-08] MEDS: Loratadine 10 MG Tablet PO (09:56)
[2018-05-08] MEDS: Montelukast 10 MG Tablet PO (09:56)
[2018-05-08] MEDS: Lisinopril 10 MG Tablet PO (09:56)
[2018-05-08] MEDS: Sertraline 100 MG Tablet PO (09:56)
[2018-05-08] MEDS: Enoxaparin 40 MG/0.4 ML Syringe SC ×2 (09:57→21:57)
--- NOTE | 2018-05-08 10:01 | PN_ITS ---
Subjective: States that the some discomfort in her lower pannus. Patient did have some erythema involving which seems to be improving. Vitals/I&O's: Vital Signs Temp Pulse Resp BP Pulse Ox 36.7 C 72 16 123/69 H 99 05/08/18 08:08 05/08/18 08:08 05/08/18 08:08 05/08/18 08:08 05/08/18 08:08 Oxygen Delivery Method Room Air Weight: 217.724 kg Body Mass Index (BMI) 90.6 Intake and Output for Last 24 Hours 05/06/18 05/07/18 05/08/18 23:59 23:59 23:59 Intake Total 3169 / 3169 1026 / 1026 Output Total 1625 / 1625 6025 / 6025 Balance 1544 / 1544 -4999 / -4999 General: Alert, Cooperative, No apparent distress HEENT: Atraumatic, Normocephalic Oral: Moist Mucosa, No Gingival or Mucosal Lesions/ Ulcerations Neck: No Nodes, Thyroid Normal Size and Texture Abdomen: Obese, - - Large pannus Extremities: No Calf Tenderness, Edema - Trace Skin: - - Patient with large pannus and patient has a old vertical scar and on the underside of the pannus dressings with some serous drainage noted. Did not remove the dressing. Patient had some mild erythema of her right anterior tidwell that had areas of demarcation. Appears to be withdrawn from the lines of demarcation. Musculoskeletal: No Tenderness to Palpation of Joints or Extremities, No Muscle Wasting Psych/Mental Status: Normal Affect, Appropriate Laboratory Results 05/07/18 11:38: POC Glucose 93 05/07/18 21:53: Vancomycin Trough 10.6 05/08/18 06:18: Sodium 143, Potassium 3.5, Chloride 105, Carbon Dioxide 29.0, Anion Gap 9, BUN 7, Creatinine 0.67, Estim Creat Clear Calc 82.54, Est GFR (MDRD ) Af Amer 124, Est GFR (MDRD) Non-Af 103, BUN/Creatinine Ratio 10.5, Glucose 96 , Calcium 8.3 L Current Medications Acetaminophen (Tylenol) 650 mg PO Q6H PRN PRN PRN Reason: Mild Pain (scale 0-3)/T>100.7 Last Admin: 05/07/18 21:26 Dose: 650 mg Al Hydroxide/Mg Hydroxide (Mylanta Ii) 30 ml PO Q6H PRN PRN PRN Reason: Gastric burning Albuterol Sulfate (Ventolin Aerosols) 2.5 mg INHALATION Q2H PRN PRN PRN Reason: dyspnea, wheezing Enoxaparin Sodium (Lovenox) 40 mg SC BID [facility] Last Admin: 05/07/18 21:32 Dose: 40 mg Famotidine (Pepcid) 20 mg PO BID [facility] Last Admin: 05/07/18 21:31 Dose: 20 mg Furosemide (Lasix) 40 mg IV Q8 [facility] Last Admin: 05/08/18 05:55 Dose: 40 mg Sodium Chloride () 250 mls @ 15 mls/hr IV .[id number] PRN PRN Reason: SALINE FLUSH Cefazolin Sodium () 1 gm in 50 mls @ 100 mls/hr IV Q8 [facility] Last Admin: 05/08/18 05:55 Dose: 100 mls/hr Levothyroxine Sodium (Synthroid) 300 mcg PO DAILY@0600 [facility] Last Admin: 05/08/18 05:52 Dose: 300 mcg Lisinopril (Zestril) 10 mg PO DAILY [facility] Last Admin: 05/07/18 09:46 Dose: 10 mg Loratadine (Claritin) 10 mg PO DAILY [facility] Last Admin: 05/07/18 09:46 Dose: 10 mg Magnesium Hydroxide (Milk Of Magnesia) 30 ml PO DAILY PRN PRN PRN Reason: Constipation Montelukast Sodium (Singulair) 10 mg PO DAILY [facility] Last Admin: 05/07/18 09:46 Dose: 10 mg Morphine Sulfate () 2 - 4 mg IV Q3H PRN PRN PRN Reason: Severe Pain (pain scale 6-10) Morphine Sulfate () 1 - 2 mg IV Q4H PRN PRN PRN Reason: Moderate Pain (pain scale 4-5) Nutritional Formula (Lactose Free) (Glucerna Shake) 120 ml PO TIDCM [facility] Last Admin: 05/08/18 08:19 Dose: Not Given Nystatin (Mycostatin Powder) 1 applic TOPICAL TID [facility] PRN Reason: Protocol Last Admin: 05/08/18 05:55 Dose: 1 applicatio Ondansetron HCl (Zofran) 4 mg IV Q8H PRN PRN PRN Reason: NAUSEA Oxycodone HCl (Oxyir) 5 mg PO Q4H PRN PRN PRN Reason: Moderate Pain (pain scale 4-5) Potassium Chloride (K-Dur) 20 meq PO BIDCM [facility] Last Admin: 05/08/18 08:20 Dose: 20 meq Promethazine HCl (Phenergan) 12.5 mg IV Q6H PRN PRN PRN Reason: NAUSEA/VOMITING Sertraline HCl (Zoloft) 100 mg PO DAILY [facility] Last Admin: 05/07/18 09:46 Dose: 100 mg Sodium Chloride () 5 - 30 ml IV UD PRN PRN Reason: SALINE FLUSH Medical Necessity - Tobacco Use Smoking Status: Never smoker Tobacco Use: Non-smoker Assessment/Plan All Active Problems Severe sepsis (Acute) UTI (urinary tract infection) (Acute) Panniculitis (Acute) Recurrent cellulitis (Acute) Left sided abdominal pain (Resolved) UTI (urinary tract infection) (Resolved) 1. Severe sepsis * Present on arrival * Secondary to panniculitis/cellulitis * Resolved 2. Panniculitis/cellulitis * Patient has had a history of vertical scar related with an emergent she had with her 22-year-old and then had a 19-year-old and 10-year- old twins who all underwent C-sections. Patient has had some dehiscence of that wound. * Patient was seen by Dr. foster and the plan is to take her to surgery either on over the * Patient has been recommended weight loss on numerous occasions as patient is very large pannus continues to add same amount attention to this wound and continue to make it worse. * Patient does have some edema and has been started on Lasix * Blood cultures from the 2nd so far negative * on Cefazolin. 3. Morbid obesity * Causing significant morbidity for this patient 4. Obstructive sleep apnea * Patient has not been able to tolerate a variety of CPAP masks, including full face, nasal pillows and the like. Patient said that she gets too claustrophobic * Advised patient to follow-up with otolaryngology as outpatient to see if a UPPP would be advisable * Feel that her untreated sleep and may be contributing to potentially right heart strain and pulmonary hypertension that may lead to some of his edema that we are encountering 5. DVT prophylaxis with Lovenox Code Visit Inpatient E&M: 93335 Subs Hosp L2
--- NOTE | 2018-05-08 13:08 | CT_ITS ---
STUDY: CT ABDOMEN AND PELVIS WITH CONTRAST REASON FOR EXAM: Female, 42 years old. Abdominal pain, umbilical hernia. RADIATION DOSAGE (If Supplied By Facility): CTDIvol = ( 34.45 ) mGy, DLP = ( 2595.49 ) mGycm TECHNIQUE: Transaxial images were obtained from the dome of the diaphragm to the symphysis pubis with oral contrast. 100ML ml of Isovue 300 contrast was administered. Sagittal and coronal images were reconstructed. Individualized dose optimization techniques were used for this CT. COMPARISON: CT Abdomen/Pelvis Mar 08 2018 1:48am FINDINGS: The visualized lung bases are unremarkable. The visualized portions of the heart are within normal limits. Normal liver. There are surgical clips in the gallbladder fossa consistent with a prior cholecystectomy. Normal spleen. Normal pancreas. Normal bilateral adrenal glands. Normal right kidney. Normal left kidney. Normal visualized stomach. There is a lower midline ventral hernia containing nonobstructed small bowel. Small bowel extends into the patient's pannus. Normal colon. There is non-visualization of the appendix. Normal abdominal aorta. Normal inferior vena cava. Normal retroperitoneum. Normal urinary bladder. Normal visualized uterus. Normal abdominal wall. Normal osseous structures. CT/Abdomen/Pelvis WITH Contrast IMPRESSION: There is a lower midline ventral hernia containing nonobstructed small bowel. Small bowel extends into the patient's pannus. Electronically Signed: Bry Yoon MD at 20:00 EDT , Service support ,
[2018-05-08 14:08] VITALS: BP 122/68; PULSE 85; RESP 16; TEMP 37.1; O2SAT 94
[2018-05-08] MEDS: levoFLOXacin IV 500 MG/100 ML BAG 100 MG IV (14:46)
--- NOTE | 2018-05-08 15:39 | PCM.RX.CS ---
Consult Pharmacy has been consulted to manage selected antiobiotic: Vancomycin Type of Consult: New start Suspected Infection: Skin/Soft tissue Labs: Sodium 143 mmol/L (136-145) 05/08/18 06:18 Potassium 3.5 mmol/L (3.5-5.1) 05/08/18 06:18 Chloride 105 mmol/L (98-107) 05/08/18 06:18 Carbon Dioxide 29.0 mmol/L (21.0-32.0) 05/08/18 06:18 Anion Gap 9 (5-15) 05/08/18 06:18 BUN 7 mg/dL (7-18) 05/08/18 06:18 Creatinine 0.67 mg/dL (0.55-1.02) 05/08/18 06:18 Est GFR (MDRD) Af Amer 124 mL/min (>60) 05/08/18 06:18 Est GFR (MDRD) Non-Af 103 mL/min (>60) 05/08/18 06:18 BUN/Creatinine Ratio 10.5 RATIO (10-20) 05/08/18 06:18 Glucose 96 mg/dL (74-106) 05/08/18 06:18 Vancomycin Trough 10.6 ug/mL (5.0-15.0) 05/07/18 21:53 Weight used for dosin kg Goal Trough: 10-15 mcg/mL Pharmacy Plan for Drug Dosing: Patient previously maintained on vancomycin 1500mg IV q8h with trough in current goal range. Recommend to re-start at same dose and interval, check trough prior to 4th dose per nomogram/protocol. Pharmacy Service will continue to monitor and adjust dosing as required. Follow-Up Labs: Trough Vancomycin - 05/09/18 @ 1600
[2018-05-08 17:11] LABS: M R Staph aureus DNA By PCR Negative (Negative); Probe Check PASS; Specimen Processing Control PASS; Staph aureus DNA By PCR NEGATIVE (Negative)
[2018-05-08 20:38] VITALS: BP 106/62; PULSE 83; RESP 16; TEMP 36.8; O2SAT 97
[2018-05-08] MEDS: oxyCODONE 5 MG Tablet PO (20:43)
[2018-05-09 02:30] VITALS: BP 118/68; PULSE 80; RESP 16; TEMP 37.1; O2SAT 96
[2018-05-09 06:12] LABS: Anion Gap 9 (5-15); BUN 9 mg/dL (7-18); BUN/Creat Ratio 13.3 RATIO (10-20); Calcium,Total 8.5 mg/dL (8.5-10.1); Chloride 103 mmol/L (98-107); Creatinine, Serum 0.68 mg/dL (0.55-1.02); EST Glomerular Filtration Rate 101 mL/min (>60); Est Glom Filt Rate - Afr Amer 123 mL/min (>60); Estimated Creatinine Clearance 81.33 ml/min; Glucose 91 mg/dL (74-106); Potassium 3.9 mmol/L (3.5-5.1); Prealbumin 17.3 mg/dL (20.0-40.0); Sodium Level 142 mmol/L (136-145)
[2018-05-09] MEDS: Nystatin Powder 15gm Bottle 1 APPLIC TOPICAL ×3 (06:14→21:58)
[2018-05-09] MEDS: Furosemide 40 MG/4 ML Vial IV ×3 (06:14→21:57)
[2018-05-09] MEDS: Levothyroxine 150 MCG Tablet 300 MCG PO (06:14)
[2018-05-09 06:48] LABS: Erythrocyte Sedimentation Rate 40 mm/hr (0-20)
[2018-05-09 08:11] VITALS: BP 101/70; PULSE 71; RESP 20; TEMP 36.5; O2SAT 95
--- NOTE | 2018-05-09 09:25 | PCM.PN.HOSP ---
Subjective: No new events. Vitals/I&O's: Vital Signs Temp Pulse Resp BP Pulse Ox 36.5 C L 71 20 H 101/70 95 05/09/18 08:11 05/09/18 08:11 05/09/18 08:11 05/09/18 08:11 05/09/18 08:11 Oxygen Delivery Method Room Air Weight: 217.724 kg Body Mass Index (BMI) 90.6 Intake and Output for Last 24 Hours 05/07/18 05/08/18 05/09/18 23:59 23:59 23:59 Intake Total 3169 / 3169 2229 / 2229 755 / 755 Output Total 1625 / 1625 9225 / 9225 2300 / 2300 Balance 1544 / 1544 -6996 / -6996 -1545 / -1545 General: Alert, No apparent distress HEENT: Atraumatic, Normocephalic Oral: Moist Mucosa, No Gingival or Mucosal Lesions/ Ulcerations Lungs: Clear to auscultation, Normal air movement, No rhonchi, No wheeze Cardiovascular: Regular rate, Regular Rhythm, Normal S1, Normal S2, No murmurs Abdomen: Bowel Sounds Present, Soft, Non Tender, Obese Extremities: No edema, No Calf Tenderness Skin: - - clean based ulcer at vertical scar ~2cm. resolving erythema of RLE. decreased induration and swelling of pannus. Musculoskeletal: No Tenderness to Palpation of Joints or Extremities, No Muscle Wasting Psych/Mental Status: Normal Affect, Appropriate Laboratory Results 05/08/18 15:40: S.aureus Protein A PCR NEGATIVE, MRSA (PCR) Negative 05/09/18 05:10: Sodium 142, Potassium 3.9, Chloride 103, Carbon Dioxide 30.0, Anion Gap 9, BUN 9, Creatinine 0.68, Estim Creat Clear Calc 81.33, Est GFR (MDRD) Af Amer 123, Est GFR (MDRD) Non-Af 101, BUN/Creatinine Ratio 13.3, Glucose 91, Calcium 8.5, C-React Prot Ext Range 16.60 H, Prealbumin 17.3 L 05/09/18 05:10: ESR 40 H Clinical Impression(s) from Imaging Studies Abdomen/Pelvis CT 05/08/18 13:08 IMPRESSION: There is a lower midline ventral hernia containing nonobstructed small bowel. Small bowel extends into the patient's pannus. Electronically Signed: Bry Yoon MD at 20:00 EDT , Service support , Current Medications Acetaminophen (Tylenol) 650 mg PO Q6H PRN PRN PRN Reason: Mild Pain (scale 0-3)/T>100.7 Last Admin: 05/07/18 21:26 Dose: 650 mg Al Hydroxide/Mg Hydroxide (Mylanta Ii) 30 ml PO Q6H PRN PRN PRN Reason: Gastric burning Albuterol Sulfate (Ventolin Aerosols) 2.5 mg INHALATION Q2H PRN PRN PRN Reason: dyspnea, wheezing Enoxaparin Sodium (Lovenox) 40 mg SC BID [facility] Last Admin: 05/08/18 21:57 Dose: 40 mg Famotidine (Pepcid) 20 mg PO BID [facility] Last Admin: 05/08/18 21:56 Dose: 20 mg Furosemide (Lasix) 40 mg IV Q8 [facility] Last Admin: 05/09/18 06:14 Dose: 40 mg Sodium Chloride () 250 mls @ 15 mls/hr IV .[id number] PRN PRN Reason: SALINE FLUSH Clindamycin Phosphate 600 mg/ (Dextrose) 54 mls @ 162 mls/hr IV Q8 [facility] Last Admin: 05/09/18 06:13 Dose: 162 mls/hr Levofloxacin (Levaquin Iv) 500 mg in 100 mls @ 100 mls/hr IV Q24 [facility] Last Admin: 05/08/18 14:46 Dose: 100 mls/hr Vancomycin HCl 1,500 mg/ (Sodium Chloride) 530 mls @ 250 mls/hr IV Q8H [facility] Last Admin: 05/09/18 08:05 Dose: 250 mls/hr Levothyroxine Sodium (Synthroid) 300 mcg PO DAILY@0600 [facility] Last Admin: 05/09/18 06:14 Dose: 300 mcg Lisinopril (Zestril) 10 mg PO DAILY [facility] Last Admin: 05/08/18 09:56 Dose: 10 mg Loratadine (Claritin) 10 mg PO DAILY [facility] Last Admin: 05/08/18 09:56 Dose: 10 mg Magnesium Hydroxide (Milk Of Magnesia) 30 ml PO DAILY PRN PRN PRN Reason: Constipation Montelukast Sodium (Singulair) 10 mg PO DAILY [facility] Last Admin: 05/08/18 09:56 Dose: 10 mg Morphine Sulfate () 2 - 4 mg IV Q3H PRN PRN PRN Reason: Severe Pain (pain scale 6-10) Morphine Sulfate () 1 - 2 mg IV Q4H PRN PRN PRN Reason: Moderate Pain (pain scale 4-5) Nutritional Formula (Lactose Free) (Glucerna Shake) 120 ml PO TIDCM [facility] Last Admin: 05/08/18 16:53 Dose: Not Given Nystatin (Mycostatin Powder) 1 applic TOPICAL TID [facility] PRN Reason: Protocol Last Admin: 05/09/18 06:14 Dose: 1 applicatio Ondansetron HCl (Zofran) 4 mg IV Q8H PRN PRN PRN Reason: NAUSEA Oxycodone HCl (Oxyir) 5 mg PO Q4H PRN PRN PRN Reason: Moderate Pain (pain scale 4-5) Last Admin: 05/08/18 20:43 Dose: 5 mg Potassium Chloride (K-Dur) 20 meq PO BIDCM [facility] Last Admin: 05/09/18 08:07 Dose: 20 meq Promethazine HCl (Phenergan) 12.5 mg IV Q6H PRN PRN PRN Reason: NAUSEA/VOMITING Sertraline HCl (Zoloft) 100 mg PO DAILY [facility] Last Admin: 05/08/18 09:56 Dose: 100 mg Sodium Chloride () 5 - 30 ml IV UD PRN PRN Reason: SALINE FLUSH Medical Necessity - Tobacco Use Smoking Status: Never smoker Tobacco Use: Non-smoker Assessment/Plan All Active Problems Severe sepsis (Acute) UTI (urinary tract infection) (Acute) Panniculitis (Acute) Recurrent cellulitis (Acute) Left sided abdominal pain (Resolved) UTI (urinary tract infection) (Resolved) 1. Severe sepsis Present on arrival Secondary to panniculitis/cellulitis Resolved 2. Panniculitis/cellulitis Patient has had a history of vertical scar related with an emergent she had with her 22-year-old and then had a 19-year-old and 10-year-old twins who all underwent C-sections. Patient has had some dehiscence of that wound. Patient was seen by Dr. foster and the plan is to take her to surgery either on 6 over the seventh Patient has been recommended weight loss on numerous occasions as patient is very large pannus continues to add same amount attention to this wound and continue to make it worse. Patient does have some edema and has been started on Lasix Blood cultures from the 2nd so far negative changed to Clinda, Vanc and Lvq by PRS Left message with Dr. Hendricks to discuss CT finding. 3. Morbid obesity Causing significant morbidity for this patient 4. Obstructive sleep apnea Patient has not been able to tolerate a variety of CPAP masks, including full face, nasal pillows and the like. Patient said that she gets too claustrophobic Advised patient to follow-up with otolaryngology as outpatient to see if a UPPP would be advisable Feel that her untreated sleep and may be contributing to potentially right heart strain and pulmonary hypertension that may lead to some of his edema that we are encountering 5. DVT prophylaxis with Lovenox Code Visit Inpatient E&M: [id number] Subs Hosp L2
--- NOTE | 2018-05-09 09:38 | PN_ITS ---
Subjective: No new events. Vitals/I&O's: Vital Signs Temp Pulse Resp BP Pulse Ox 36.5 C L 71 20 H 101/70 95 05/09/18 08:11 05/09/18 08:11 05/09/18 08:11 05/09/18 08:11 05/09/18 08:11 Oxygen Delivery Method Room Air Weight: 217.724 kg Body Mass Index (BMI) 90.6 Intake and Output for Last 24 Hours 05/07/18 05/08/18 05/09/18 23:59 23:59 23:59 Intake Total 3169 / 3169 2229 / 2229 755 / 755 Output Total 1625 / 1625 9225 / 9225 2300 / 2300 Balance 1544 / 1544 -6996 / -6996 -1545 / -1545 General: Alert, No apparent distress HEENT: Atraumatic, Normocephalic Oral: Moist Mucosa, No Gingival or Mucosal Lesions/ Ulcerations Lungs: Clear to auscultation, Normal air movement, No rhonchi, No wheeze Cardiovascular: Regular rate, Regular Rhythm, Normal S1, Normal S2, No murmurs Abdomen: Bowel Sounds Present, Soft, Non Tender, Obese Extremities: No edema, No Calf Tenderness Skin: - - clean based ulcer at vertical scar ~2cm. resolving erythema of RLE. decreased induration and swelling of pannus. Musculoskeletal: No Tenderness to Palpation of Joints or Extremities, No Muscle Wasting Psych/Mental Status: Normal Affect, Appropriate Laboratory Results 05/08/18 15:40: S.aureus Protein A PCR NEGATIVE, MRSA (PCR) Negative 05/09/18 05:10: Sodium 142, Potassium 3.9, Chloride 103, Carbon Dioxide 30.0, Anion Gap 9, BUN 9, Creatinine 0.68, Estim Creat Clear Calc 81.33, Est GFR (MDRD ) Af Amer 123, Est GFR (MDRD) Non-Af 101, BUN/Creatinine Ratio 13.3, Glucose 91 , Calcium 8.5, C-React Prot Ext Range 16.60 H, Prealbumin 17.3 L 05/09/18 05:10: ESR 40 H Clinical Impression(s) from Imaging Studies Abdomen/Pelvis CT 05/08/18 13:08 IMPRESSION: There is a lower midline ventral hernia containing nonobstructed small bowel. Small bowel extends into the patient's pannus. Electronically Signed: Bry Yoon MD at 20:00 EDT , Service support , Current Medications Acetaminophen (Tylenol) 650 mg PO Q6H PRN PRN PRN Reason: Mild Pain (scale 0-3)/T>100.7 Last Admin: 05/07/18 21:26 Dose: 650 mg Al Hydroxide/Mg Hydroxide (Mylanta Ii) 30 ml PO Q6H PRN PRN PRN Reason: Gastric burning Albuterol Sulfate (Ventolin Aerosols) 2.5 mg INHALATION Q2H PRN PRN PRN Reason: dyspnea, wheezing Enoxaparin Sodium (Lovenox) 40 mg SC BID [facility] Last Admin: 05/08/18 21:57 Dose: 40 mg Famotidine (Pepcid) 20 mg PO BID [facility] Last Admin: 05/08/18 21:56 Dose: 20 mg Furosemide (Lasix) 40 mg IV Q8 [facility] Last Admin: 05/09/18 06:14 Dose: 40 mg Sodium Chloride () 250 mls @ 15 mls/hr IV .[id number] PRN PRN Reason: SALINE FLUSH Clindamycin Phosphate 600 mg/ (Dextrose) 54 mls @ 162 mls/hr IV Q8 [facility] Last Admin: 05/09/18 06:13 Dose: 162 mls/hr Levofloxacin (Levaquin Iv) 500 mg in 100 mls @ 100 mls/hr IV Q24 [facility] Last Admin: 05/08/18 14:46 Dose: 100 mls/hr Vancomycin HCl 1,500 mg/ (Sodium Chloride) 530 mls @ 250 mls/hr IV Q8H [facility] Last Admin: 05/09/18 08:05 Dose: 250 mls/hr Levothyroxine Sodium (Synthroid) 300 mcg PO DAILY@0600 [facility] Last Admin: 05/09/18 06:14 Dose: 300 mcg Lisinopril (Zestril) 10 mg PO DAILY [facility] Last Admin: 05/08/18 09:56 Dose: 10 mg Loratadine (Claritin) 10 mg PO DAILY [facility] Last Admin: 05/08/18 09:56 Dose: 10 mg Magnesium Hydroxide (Milk Of Magnesia) 30 ml PO DAILY PRN PRN PRN Reason: Constipation Montelukast Sodium (Singulair) 10 mg PO DAILY [facility] Last Admin: 05/08/18 09:56 Dose: 10 mg Morphine Sulfate () 2 - 4 mg IV Q3H PRN PRN PRN Reason: Severe Pain (pain scale 6-10) Morphine Sulfate () 1 - 2 mg IV Q4H PRN PRN PRN Reason: Moderate Pain (pain scale 4-5) Nutritional Formula (Lactose Free) (Glucerna Shake) 120 ml PO TIDCM [facility] Last Admin: 05/08/18 16:53 Dose: Not Given Nystatin (Mycostatin Powder) 1 applic TOPICAL TID [facility] PRN Reason: Protocol Last Admin: 05/09/18 06:14 Dose: 1 applicatio Ondansetron HCl (Zofran) 4 mg IV Q8H PRN PRN PRN Reason: NAUSEA Oxycodone HCl (Oxyir) 5 mg PO Q4H PRN PRN PRN Reason: Moderate Pain (pain scale 4-5) Last Admin: 05/08/18 20:43 Dose: 5 mg Potassium Chloride (K-Dur) 20 meq PO BIDCM [facility] Last Admin: 05/09/18 08:07 Dose: 20 meq Promethazine HCl (Phenergan) 12.5 mg IV Q6H PRN PRN PRN Reason: NAUSEA/VOMITING Sertraline HCl (Zoloft) 100 mg PO DAILY [facility] Last Admin: 05/08/18 09:56 Dose: 100 mg Sodium Chloride () 5 - 30 ml IV UD PRN PRN Reason: SALINE FLUSH Medical Necessity - Tobacco Use Smoking Status: Never smoker Tobacco Use: Non-smoker Assessment/Plan All Active Problems Severe sepsis (Acute) UTI (urinary tract infection) (Acute) Panniculitis (Acute) Recurrent cellulitis (Acute) Left sided abdominal pain (Resolved) UTI (urinary tract infection) (Resolved) 1. Severe sepsis * Present on arrival * Secondary to panniculitis/cellulitis * Resolved 2. Panniculitis/cellulitis * Patient has had a history of vertical scar related with an emergent she had with her 22-year-old and then had a 19-year-old and 10-year- old twins who all underwent C-sections. Patient has had some dehiscence of that wound. * Patient was seen by Dr. foster and the plan is to take her to surgery either on 6 over the seventh * Patient has been recommended weight loss on numerous occasions as patient is very large pannus continues to add same amount attention to this wound and continue to make it worse. * Patient does have some edema and has been started on Lasix * Blood cultures from the 2nd so far negative * changed to Clinda, Vanc and Lvq by PRS * Left message with Dr. Hendricks to discuss CT finding. 3. Morbid obesity * Causing significant morbidity for this patient 4. Obstructive sleep apnea * Patient has not been able to tolerate a variety of CPAP masks, including full face, nasal pillows and the like. Patient said that she gets too claustrophobic * Advised patient to follow-up with otolaryngology as outpatient to see if a UPPP would be advisable * Feel that her untreated sleep and may be contributing to potentially right heart strain and pulmonary hypertension that may lead to some of his edema that we are encountering 5. DVT prophylaxis with Lovenox Code Visit Inpatient E&M: 89540 Subs Hosp L2
[2018-05-09] MEDS: Loratadine 10 MG Tablet PO (10:46)
[2018-05-09] MEDS: Enoxaparin 40 MG/0.4 ML Syringe SC ×2 (10:46→21:57)
[2018-05-09] MEDS: Famotidine 20 MG Tablet PO ×2 (10:46→21:57)
[2018-05-09] MEDS: Sertraline 100 MG Tablet PO (10:47)
[2018-05-09] MEDS: Lisinopril 10 MG Tablet PO (10:47)
[2018-05-09] MEDS: Montelukast 10 MG Tablet PO (10:47)
--- NOTE | 2018-05-09 11:37 | NURSING ---
1100 IV out-leaking. charge nurse aware and 2 New IV attempts tried with no success. Dr Madrigal notified. new order given for midline placement. pt aware Olman Mcgee RN
[2018-05-09] MEDS: 0.9% NaCl Peripheral Flush Adult/Peds IV ×2 (13:20→22:03)
[2018-05-09] MEDS: levoFLOXacin IV 500 MG/100 ML BAG 100 MG IV (13:24)
[2018-05-09 14:00] VITALS: BP 97/60; PULSE 86; RESP 20; TEMP 36.6; O2SAT 95
[2018-05-09 14:45] VITALS: PULSE 86
[2018-05-09 16:05] LABS: Vancomycin, Trough Level 20.4 ug/mL (5.0-15.0)
[2018-05-09] MEDS: Glucerna Shake 120 ML LIQUID PO (17:22)
--- NOTE | 2018-05-09 18:40 | CON.PCM_ITS ---
Problem List (1) Incisional hernia Status: Acute Qualifiers: Obstruction and gangrene presence: without obstruction or gangrene Qualified Code(s): K43.2 - Incisional hernia without obstruction or gangrene; K43.91 - Incisional hernia, without obstruction or gangrene Reason for Consult Date of Consultation: 05/09/18 History of Present Illness: The patient is a 42 year old F with a history of morbid obesity and borderline diabetes who presented to the ED with worsening pain and redness and swelling in her massive abdominal panniculus with a nonhealing infected ulcer and panniculitis. She has been treated for her intermittent bouts of abdominal panniculitis, the most recent in [place]. Recently she was placed on oral antibiotics for another episode and has worsening symptomatology. In the ED, her WBC was 11.6 and her Lactate was 2.2. Repeat labs the next morning showed the WBC had improved to 6.9 and the Lactate had decreased to 1.1. She was given Cleocin in the ED. On the floor she was started on Ancef. Patient states she has an umbilical hernia and she was told that will be repaired in the future after she loses weight. She was in the ED back in 03/[address] Abdomen and Pelvis was done. It showed extremely limited examination, the majority of the anterior abdominal subcutaneous tissue, wall and anterior peritoneal are not included in the field- of-view. Portion of a left anterior inferior abdominal wall hernia with an opening of 4.5 cm containing small bowel is imaged. No overt colonic or small bowel obstruction, ascites or pneumoperitoneum on submitted images. Hepatomegaly and hepatic steatosis. Cholecystectomy. Nonobstructing left inferior renal pole calculus. I was asked to evaluate this patient for possible hernia repair in conjunction with panniculectomy. I discussed this case with Dr. Hendricks and he would like surgery backup in case he gets into the hernia at the time of the panniculectomy. Past Medical History Past Medical History (Chronic Problems): Chronic Problems Anxiety and depression (Chronic) Allergic rhinitis (Chronic) MARCE (obstructive sleep apnea) (Chronic) not on CPAP (pt refusal) Obesity, Class III, BMI 40-49.9 (morbid obesity) (Chronic) Asthma (Chronic) Super-super obese (Chronic) Prediabetes (Chronic) Hypertension (Chronic) Hypothyroid (Chronic) Allergies diphenhydramine HCl [From Benadryl] Allergy (Verified 05/06/18 15:13) Hives metronidazole [From Flagyl] Allergy (Verified 05/06/18 15:13) Rash venom-honey bee [bee venom (honey bee)] Allergy (Verified 05/06/18 15:13) Anaphylaxis aspirin Adverse Reaction (Verified 05/06/18 15:13) Upset Stomach codeine Adverse Reaction (Verified 05/06/18 15:13) Other ibuprofen Adverse Reaction (Verified 05/06/18 15:13) Upset Stomach Penicillins Adverse Reaction (Verified 05/06/18 15:13) Nausea Home Medications: Ambulatory Orders Medication Instructions Recorded Lisinopril/Hydrochlorothiazide 1 tablet PO DAILY 03/08/18 [Zestoretic 10/12.5 Tablet] Loratadine [Claritin] 10 mg PO DAILY 03/08/18 Montelukast Sodium [Singulair] 10 mg PO DAILY 03/08/18 Omeprazole [Prilosec] 20 mg PO DAILY 03/08/18 Sertraline HCl [Zoloft] 100 mg PO DAILY 03/08/18 Dimethicone/Da/Vit A,C,E/Kristian 1 applic TP DAILY PRN PRN 05/06/18 [Gold Mustafa Ult Diabetic Cream] Levothyroxine Sodium [Synthroid] 300 mcg PO DAILY 05/06/18 Naproxen Sodium [Aleve] 440 mg PO Q12H PRN PRN 05/06/18 Surgical History: cholecystectomy - Patient has had sections in the past, - - ?3, cholecystectomy, tonsillectomy. 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 Smoking Status: Never smoker Tobacco Use: Non-smoker Alcohol: None Drugs: None - *Family History Maternal History Items: - - Patient notes a maternal and paternal family history of heart disease, diabetes, high cholesterol, cancer. Paternal History Items: - - Patient notes a maternal and paternal family history of heart disease, diabetes, high cholesterol, cancer. Review of Systems Constitutional: Denies: Chills, Fever, Weight Change Cardiovascular: Denies: Chest Pain, Chest Pressure, Chest Tightness, Palpitations Respiratory: Denies: Cough, Hemoptysis, Shortness of breath at rest, Shortness of breath upon exertion, Wheezing Gastrointestinal: Denies: Abdominal Pain, Constipation, Diarrhea, Hematemesis, Nausea, Melena, Vomiting Patient Problems: Active and Suspected Problems Incisional hernia (Acute) - Physical Exam Lungs: Clear to auscultation Cardiovascular: Regular rate, Regular Rhythm, No murmurs Abdomen: Obese - Extremely large pannus and hernia is clearly palpable at the umbilicus and extending down into the pannus itself. Large ulceration in midline extending to right side. Measures 15 cm. Exudate present. Surrounding cellulitis. Firm dependent edema present. No purulent drainage noted. Lower midline scar from umbilicus to pubis. Vital Signs Temp Pulse Resp BP Pulse Ox 98 F 86 20 H 97/60 95 05/09/18 14:00 05/09/18 14:45 05/09/18 14:00 05/09/18 14:00 05/09/18 14:00 Oxygen Delivery Method Room Air Weight: 479 lb 15.988 oz Body Mass Index (BMI) 90.6 Intake and Output for Last 24 Hours 05/07/18 05/08/18 05/09/18 23:59 23:59 23:59 Intake Total 3169 / 3169 2229 / 2229 1938 / 1938 Output Total 1625 / 1625 9225 / 9225 4850 / 4850 Balance 1544 / 1544 -6996 / -6996 -2912 / -2912 Laboratory Tests Past 24 Hrs 05/09/18 05/09/18 05/09/18 05:10 05:10 15:30 ESR 40 H Sodium 142 Potassium 3.9 Chloride 103 Carbon Dioxide 30.0 Anion Gap 9 BUN 9 Creatinine 0.68 Estim Creat Clear Calc 81.33 Est GFR (MDRD) Af Amer 123 Est GFR (MDRD) Non-Af 101 BUN/Creatinine Ratio 13.3 Glucose 91 Calcium 8.5 C-React Prot Ext Range 16.60 H Prealbumin 17.3 L Vancomycin Trough 20.4 H Assessment/Plan All Active Problems Incisional hernia (Acute) Severe sepsis (Acute) UTI (urinary tract infection) (Acute) Panniculitis (Acute) Recurrent cellulitis (Acute) Left sided abdominal pain (Resolved) UTI (urinary tract infection) (Resolved) I discussed this case with Dr. kelley and I will have to ask if 1 of my partners would like to be on standby for him. I will be unavailable the rest of this week. In looking at the hernia I cannot see how he is not possibly going to get into the defect. Which then leads she going to need tissue component separation to close the defect as well as repair of the pannus that he is going to remove. If 1 of my partners thinks that this would be better in a tertiary referral center that I think that that is probably going to be the best case scenario here.
[2018-05-09 21:52] VITALS: BP 101/61; PULSE 85; RESP 18; TEMP 36.8; O2SAT 96
[2018-05-10] MEDS: oxyCODONE 5 MG Tablet PO (00:10)
[2018-05-10 03:54] VITALS: BP 114/66; PULSE 80; RESP 18; TEMP 36.9; O2SAT 95
[2018-05-10] MEDS: Nystatin Powder 15gm Bottle 1 APPLIC TOPICAL ×3 (05:56→21:28)
[2018-05-10] MEDS: Furosemide 40 MG/4 ML Vial IV (05:56)
[2018-05-10] MEDS: Levothyroxine 150 MCG Tablet 300 MCG PO (05:56)
[2018-05-10] MEDS: 0.9% NaCl Peripheral Flush Adult/Peds IV ×2 (05:57→21:29)
[2018-05-10 09:09] VITALS: BP 105/67; PULSE 68; RESP 16; TEMP 36.7; O2SAT 94
[2018-05-10] MEDS: Glucerna Shake 120 ML LIQUID PO ×3 (09:11→16:34)
[2018-05-10] MEDS: levoFLOXacin IV 500 MG/100 ML BAG 100 MG IV (09:12)
[2018-05-10] MEDS: Sertraline 100 MG Tablet PO (09:13)
[2018-05-10] MEDS: Lisinopril 10 MG Tablet PO (09:13)
[2018-05-10] MEDS: Famotidine 20 MG Tablet PO ×2 (09:13→21:28)
[2018-05-10] MEDS: Loratadine 10 MG Tablet PO (09:14)
[2018-05-10] MEDS: Enoxaparin 40 MG/0.4 ML Syringe SC ×2 (09:14→21:28)
[2018-05-10] MEDS: Montelukast 10 MG Tablet PO (09:14)
--- NOTE | 2018-05-10 09:44 | PN_ITS ---
Patient Problems: Active and Suspected Problems Incisional hernia (Acute) Subjective: Chief complaint: Follow-up after admission for massive abdominal panniculus with nonhealing infected ulcer and panniculitis. Patient seen and examined. No acute events overnight. She denies any significant complaints. She denies abdominal pain, nausea or vomiting. Denied fever or chills. Denies chest pain or shortness of breath. Her vital signs are stable. - Physical Exam General: Alert, Oriented x3, Cooperative, No apparent distress HEENT: Atraumatic, PERRLA, EOMI, Normocephalic Oral: Moist Mucosa, No Gingival or Mucosal Lesions/ Ulcerations Neck: Supple, No JVD, Trachea Midline, Thyroid Normal Size and Texture Lungs: Clear to auscultation, No rhonchi, No wheeze, No rales, Diminished Cardiovascular: Regular rate, Regular Rhythm, Normal S1, Normal S2, No murmurs Abdomen: Bowel Sounds Present, Soft, Non Tender, Non-Distended, No Hepato- splenomegaly, Obese Extremities: No clubbing, No cyanosis, No edema, - - Right leg: Minimal redness and hot to palpation. Skin: No rashes, - - Lower abdominal pannus with erythema and swelling consistent with panniculitis. Lymphatic: No Cervical, Supraclavicular, or Inguinal Adenopathy Neurological: Cranial nerves II-XII grossly intact, Motor Exam 5/5 strength throughout Psych/Mental Status: Normal Affect, Appropriate, Alert and oriented to time, place, person, mood and affect Vital Signs Temp Pulse Resp BP Pulse Ox 98.0 F 68 16 105/67 94 05/10/18 09:09 05/10/18 09:09 05/10/18 09:09 05/10/18 09:09 05/10/18 09:09 Oxygen Delivery Method Room Air Weight: 479 lb 15.988 oz Body Mass Index (BMI) 90.6 Intake and Output for Last 24 Hours 05/08/18 05/09/18 05/10/18 23:59 23:59 23:59 Intake Total 2229 / 2229 3388 / 3388 579 / 579 Output Total 9225 / 9225 6825 / 6825 2800 / 2800 Balance -6996 / -6996 -3437 / -3437 -2221 / -2221 Laboratory Tests Past 24 Hrs 05/09/18 15:30 Vancomycin Trough 20.4 H Medical Necessity - Tobacco Use Smoking Status: Never smoker Tobacco Use: Non-smoker Assessment/Plan All Active Problems Incisional hernia (Acute) Severe sepsis (Acute) UTI (urinary tract infection) (Acute) Panniculitis (Acute) Recurrent cellulitis (Acute) Left sided abdominal pain (Resolved) UTI (urinary tract infection) (Resolved) This is a 42 years old female patient presented to the emergency room because of worsening abdominal wall pain, erythema and swelling with 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 #1 acute/recurrent anterior abdominal wall cellulitis/nonhealing infected ulcer and panniculitis: She is on IV clindamycin and Levaquin. Her vital signs are stable, afebrile. White blood cell count is back to normal. Blood culture showed no growth in 48 hours. Plastic and general surgery consulted, plan for surgery this coming . #2 severe sepsis: Secondary to above. She has been on IV fluids and IV antibiotics. Lactic acid is back to normal. Hemodynamically stable, afebrile. Plan as above. #3 hypertension: Blood pressure stable, continue lisinopril. #4 hypothyroidism: Continue levothyroxine. #5 bronchial asthma: #6 obstructive sleep apnea: Clinically stable, pulse ox is maintained on room air. She is on albuterol as needed. #7 depression: Continue Zoloft. Continue Zoloft. #8 DVT prophylaxis: Subcu Lovenox. This note was generated with [employer] dictation software. It may contain incorrect words, spelling, and punctuation that were not noted in checking the note before signing. Code Visit Inpatient E&M: 60225 Subs Hosp L2
--- NOTE | 2018-05-10 11:09 | PCM.PN.SRG ---
Patient Problems: Active and Suspected Problems Incisional hernia (Acute) Subjective: The patient reports no changes or issues overnight. - Physical Exam General: Alert, Oriented x3, Cooperative Neck: No JVD Lungs: Normal air movement Cardiovascular: Regular rate, Regular Rhythm Abdomen: Obese, - - As an open area at the bottom of her pannus with cellulitis. Vital Signs Temp Pulse Resp BP Pulse Ox 98.0 F 68 16 105/67 94 05/10/18 09:09 05/10/18 09:09 05/10/18 09:09 05/10/18 09:09 05/10/18 09:09 Oxygen Delivery Method Room Air Weight: 479 lb 15.988 oz Body Mass Index (BMI) 90.6 Intake and Output for Last 24 Hours 05/08/18 05/09/18 05/10/18 23:59 23:59 23:59 Intake Total 2229 / 2229 3388 / 3388 579 / 579 Output Total 9225 / 9225 6825 / 6825 2800 / 2800 Balance -6996 / -6996 -3437 / -3437 -2221 / -2221 Laboratory Tests Past 24 Hrs 05/09/18 15:30 Vancomycin Trough 20.4 H Medical Necessity - Tobacco Use Smoking Status: Never smoker Tobacco Use: Non-smoker Assessment/Plan All Active Problems Incisional hernia (Acute) Severe sepsis (Acute) UTI (urinary tract infection) (Acute) Panniculitis (Acute) Recurrent cellulitis (Acute) Left sided abdominal pain (Resolved) UTI (urinary tract infection) (Resolved) 42-year-old female with panniculitis and incisional ventral hernia 1. I was contacted by Dr. Hendricks to be available to help him during panniculectomy with the repair of hernia. I discussed this with Dr. Hendricks and the patient. The hernia neck appears small and it may be able to be repaired primarily or may require component separation. I would not like to place any synthetic mesh in the face of active inflammation and infection. I may place a biologic and if there is a recurrence of hernia, fix it laparoscopically from the inside once inflammation has resolved. 2. I discussed the risks of surgery including but not limited to bleeding, infection, recurrence of hernia, bowel injury, need for component separation. 3. As of now the plan is for surgery Gato Lobo MD Pager: [facility] [address] [place] [address], [facility] [address] [place] [address] Office:
--- NOTE | 2018-05-10 11:12 | PN.SURG_ITS ---
Patient Problems: Active and Suspected Problems Incisional hernia (Acute) Subjective: The patient reports no changes or issues overnight. - Physical Exam General: Alert, Oriented x3, Cooperative Neck: No JVD Lungs: Normal air movement Cardiovascular: Regular rate, Regular Rhythm Abdomen: Obese, - - As an open area at the bottom of her pannus with cellulitis. Vital Signs Temp Pulse Resp BP Pulse Ox 98.0 F 68 16 105/67 94 05/10/18 09:09 05/10/18 09:09 05/10/18 09:09 05/10/18 09:09 05/10/18 09:09 Oxygen Delivery Method Room Air Weight: 479 lb 15.988 oz Body Mass Index (BMI) 90.6 Intake and Output for Last 24 Hours 05/08/18 05/09/18 05/10/18 23:59 23:59 23:59 Intake Total 2229 / 2229 3388 / 3388 579 / 579 Output Total 9225 / 9225 6825 / 6825 2800 / 2800 Balance -6996 / -6996 -3437 / -3437 -2221 / -2221 Laboratory Tests Past 24 Hrs 05/09/18 15:30 Vancomycin Trough 20.4 H Medical Necessity - Tobacco Use Smoking Status: Never smoker Tobacco Use: Non-smoker Assessment/Plan All Active Problems Incisional hernia (Acute) Severe sepsis (Acute) UTI (urinary tract infection) (Acute) Panniculitis (Acute) Recurrent cellulitis (Acute) Left sided abdominal pain (Resolved) UTI (urinary tract infection) (Resolved) 42-year-old female with panniculitis and incisional ventral hernia 1. I was contacted by Dr. Hendricks to be available to help him during panniculectomy with the repair of hernia. I discussed this with Dr. Hendricks and the patient. The hernia neck appears small and it may be able to be repaired primarily or may require component separation. I would not like to place any synthetic mesh in the face of active inflammation and infection. I may place a biologic and if there is a recurrence of hernia, fix it laparoscopically from the inside once inflammation has resolved. 2. I discussed the risks of surgery including but not limited to bleeding, infection, recurrence of hernia, bowel injury, need for component separation. 3. As of now the plan is for surgery Gato Lobo MD Pager: [facility] [address] [place] [address], [facility] [address] [place] [address] Office:
[2018-05-10 15:40] VITALS: BP 108/67; PULSE 84; RESP 18; TEMP 36.7; O2SAT 94
[2018-05-10 21:18] VITALS: BP 139/72; PULSE 91; RESP 18; TEMP 36.7; O2SAT 100
--- NOTE | 2018-05-10 22:09 | PCM.PN.SRG ---
Patient Problems: Active and Suspected Problems Incisional hernia (Acute) Subjective: Patient is resting comfortably. She states the pain has improved with the IV antibiotics. - Physical Exam General: Alert, Oriented x3 HEENT: PERRLA, EOMI Oral: Moist Mucosa Neck: Supple, JVD, Left Lungs: Clear to auscultation Cardiovascular: Regular rate, Regular Rhythm Abdomen: Obese, - - lower midline nonhealing ulcer in previous scar is stable. Less exudate. Less tender. The dependent massive panniculus is less heavy and less red. Most of the redness is on the right side. milling machine tender to palpation. Extremities: No clubbing, No cyanosis, Edema - in lower extremities., Peripheral Pulses Normal Lymphatic: - - no inguinal adenopathy,. Neurological: Cranial nerves II-XII grossly intact Psych/Mental Status: Normal Affect, Appropriate Vital Signs Temp Pulse Resp BP Pulse Ox 98.0 F 91 18 139/72 H 100 05/10/18 21:18 05/10/18 21:18 05/10/18 21:18 05/10/18 21:18 05/10/18 21:18 Oxygen Delivery Method Room Air Weight: 479 lb 15.988 oz Body Mass Index (BMI) 90.6 Intake and Output for Last 24 Hours 05/08/18 05/09/18 05/10/18 23:59 23:59 23:59 Intake Total 2229 / 2229 3388 / 3388 919 / 919 Output Total 9225 / 9225 6825 / 6825 5100 / 5100 Balance -6996 / -6996 -3437 / -3437 -4181 / -4181 Diagnostic Data Chest X-Ray 05/06/18 15:45 IMPRESSION: Elevated hemidiaphragm on the right. Nonspecific. Otherwise no acute cardiopulmonary process is evident. Electronically Signed: Karthik Smart, at 16:27 EDT Tel , Service support , Abdomen/Pelvis CT 05/08/18 13:08 IMPRESSION: There is a lower midline ventral hernia containing nonobstructed small bowel. Small bowel extends into the patient's pannus. Electronically Signed: Bry Yoon MD at 20:00 EDT , Service support , Medical Necessity - Tobacco Use Smoking Status: Never smoker Tobacco Use: Non-smoker Assessment/Plan All Active Problems Incisional hernia (Acute) Severe sepsis (Acute) 1. 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 2. Borderline diabetes. 3. Abdominal wall skin crease intertrigo. 4. Left anterior inferior abdominal wall hernia containing small bowel (umbilical per patient?). 5. Morbid obesity. Continue Cleocin and Levaquin. The Vancomycin has been stopped. Will check a wound culture. Her previous cultures from last May showed Staphylococcus aureus, Streptococcus group G, and E. coli. Continue wound care with half strength Dakin's twice a day to the abdominal wall infected ulcer. Repeat CT Abdomen and Pelvis showed presence of a hernia. General Surgery was consulted. Dr. Hollingsworth and Dr. Lobo input appreciated. Dr. Lobo is willing to be available for repair of the hernia. Mesh cannot be used because of the infection. Biologic graft can be used as a temporizing measure if necessary. Doubt that complex abdominal wall reconstruction with components separation with myofascial advancement flaps would be needed but won't hesitate to proceed with the complex reconstruction if necessary. Will excise the area of most induration and pain and redness along with the ulceration in the midline. Tissue will be sent to Pathology for analysis to rule out carcinoma and to Microbiology for culture. A positive culture may necessitate antibiotic modification. Presence of a hernia will complicate the decision making. Most of the redness and swelling and pain and ulceration is on the right abdominal wall. Excision of this infected tissue can be done. Usually requires extension to the abdominal wall especially if necrotizing infection is seen at the time of surgery. Even the limited excisional debridement and panniculectomy (which would still be extensive due to her size) would be risky for the patient and the presence of the hernia would increase that risk tremendously. She is aware of that possibility and increased risk and voices understanding and wishes to proceed. Anticipate increased metabolic demands from her ulcerations and infection. Will check a Prealbumin. Encourage nutritional supplementation with protein to help the healing process. After surgery, the postop wound care would be with the VAC. Post discharge, can then followup at the Wound Center. Patient was informed of the risks and complications of the procedure including alternatives to surgery. These were discussed with the patient personally. Patient voices understanding and wishes to proceed. She understands the wound will not be closed initially and that a large wound is anticipated. She voices understanding. She is also aware that excising all the tissue will not be done at one time because of anticipated large amounts of blood loss. Excision will be done safely and in stages.
[2018-05-11] VITALS (11 sets, daily range): BP systolic 109–129; BP diastolic 59–96; PULSE 67–104; RESP 16–18; TEMP 36.3–37; O2SAT 94–100; BMI 90.6
[2018-05-11 05:58] LABS: Absolute Lymphocyte Count 2.04 X10^3/ul (0.83-4.51); Absolute Neutrophil Count 5.7 X10^3/uL (2.0-7.7); Basophil# 0.04 X10^3/uL; Basophil% 0.4 % (0-1); Eosinophils% 4.5 % (0-5); Hematocrit 35.6 % (37-47); Lymphocyte # 2.04 X10^3/ul (4.0); Lymphocyte % 22.8 % (19-41); Mean Corp Hgb Conc 30.9 g/gl (32-36); Mean Corpuscular Volume 87.5 fL (81-99); Mean Platelet Vol. 10.4 fl (6.2-12.0); Monocyte# 0.71 X10^3/uL; Monocyte% 7.9 % (0-10); Neutrophil # 5.72 X10^3/uL (2.7-7.7); Platelet Count 261 K/mm3 (150-450); RBC Distribution Width CV 14.8 % (11.6-14.6); RBC Distribution Width SD 46.6 fl (35.1-43.9); Red Blood Count 4.07 M/mm3 (4.2-5.4)
[2018-05-11 06:01] LABS: International Normalized Ratio 1.1; Partial Thromboplast Time 30.9 Seconds (24.1-36.2); Prothrombin Time (Protime)PT. 13.8 SECONDS (11.7-14.9)
[2018-05-11 06:05] LABS: POSITIVE COUNT NO; POSITIVE DIFFERENTIAL NO; POSITIVE MORPHOLOGY NO
[2018-05-11] MEDS: Levothyroxine 150 MCG Tablet 300 MCG PO (06:33)
[2018-05-11] MEDS: Nystatin Powder 15gm Bottle 1 APPLIC TOPICAL ×3 (06:33→22:33)
[2018-05-11] MEDS: 0.9% NaCl Peripheral Flush Adult/Peds IV ×2 (06:34→22:34)
[2018-05-11 06:36] LABS: Pregnancy, Serum, hCG Quali. NEGATIVE Negative (0-9 Nonpreg)
[2018-05-11 06:38] LABS: Anion Gap 8 (5-15); BUN 14 mg/dL (7-18); BUN/Creat Ratio 18.3 RATIO (10-20); Chloride 100 mmol/L (98-107); Creatinine, Serum 0.77 mg/dL (0.55-1.02); EST Glomerular Filtration Rate 88 mL/min (>60); Est Glom Filt Rate - Afr Amer 106 mL/min (>60); Estimated Creatinine Clearance 71.82 ml/min; Glucose 94 mg/dL (74-106); Potassium 4.2 mmol/L (3.5-5.1); Sodium Level 139 mmol/L (136-145)
--- NOTE | 2018-05-11 07:35 | PCM.PN.SRG ---
Patient Problems: Active and Suspected Problems Panniculitis (Acute) Incisional hernia (Acute) Subjective: Patient had no issues overnight. - Physical Exam General: Alert, Oriented x3, Cooperative Lungs: Normal air movement Cardiovascular: Regular rate, Regular Rhythm Abdomen: Soft, Obese Vital Signs Temp Pulse Resp BP Pulse Ox 98.0 F 81 18 123/68 H 99 05/11/18 03:30 05/11/18 03:30 05/11/18 03:30 05/11/18 03:30 05/11/18 03:30 Oxygen Delivery Method Room Air Weight: 479 lb 15.988 oz Body Mass Index (BMI) 90.6 Intake and Output for Last 24 Hours 05/09/18 05/10/18 05/11/18 23:59 23:59 23:59 Intake Total 3388 / 3388 919 / 919 1206 / 1206 Output Total 6825 / 6825 5100 / 5100 100 / 100 Balance -3437 / -3437 -4181 / -4181 1106 / 1106 Laboratory Tests Past 24 Hrs 05/11/18 05/11/18 05/11/18 05:25 05:25 05:25 WBC 9.0 RBC 4.07 L Hgb 11.0 L Hct 35.6 L MCV 87.5 MCH 27.0 MCHC 30.9 L RDW 14.8 H RDW Differential 46.6 H Plt Count 261 MPV 10.4 Immature Gran % (Auto) 0.400 Neut % (Auto) 64.0 Lymph % (Auto) 22.8 [place] % (Auto) 7.9 Eos % (Auto) 4.5 Baso % (Auto) 0.4 Absolute Neuts (auto) 5.7 Absolute Lymphs (auto) 2.04 Total Counted Not Reportable PT 13.8 INR 1.1 APTT 30.9 Sodium 139 Potassium 4.2 Chloride 100 Carbon Dioxide 31.0 Anion Gap 8 BUN 14 Creatinine 0.77 Estim Creat Clear Calc 71.82 Est GFR (MDRD) Af Amer 106 Est GFR (MDRD) Non-Af 88 BUN/Creatinine Ratio 18.3 Glucose 94 Calcium 9.0 TSH 47.40 H Serum , Qual 05/11/18 05:25 WBC RBC Hgb Hct MCV MCH MCHC RDW RDW Differential Plt Count MPV Immature Gran % (Auto) Neut % (Auto) Lymph % (Auto) [place] % (Auto) Eos % (Auto) Baso % (Auto) Absolute Neuts (auto) Absolute Lymphs (auto) Total Counted PT INR APTT Sodium Potassium Chloride Carbon Dioxide Anion Gap BUN Creatinine Estim Creat Clear Calc Est GFR (MDRD) Af Amer Est GFR (MDRD) Non-Af BUN/Creatinine Ratio Glucose Calcium TSH Serum , Qual NEGATIVE Medical Necessity - Tobacco Use Smoking Status: Never smoker Tobacco Use: Non-smoker Assessment/Plan All Active Problems Panniculitis (Acute) Incisional hernia (Acute) Severe sepsis (Acute) 42-year-old female with panniculitis and ventral hernia 1. The patient is scheduled for abdominal wall debridement today as well as possible ventral hernia repair. I would be the one performing the ventral hernia repair and Dr. Hendricks will perform abdominal wall debridement. I described ventral hernia repair to the patient in detail and I explained that I would not be placing any synthetic mesh for the risk of infection. I explained that this will increase her risk of recurrence but in the face of cellulitis and infection I would not want to have a mesh infection as well. I also explained the possibility of using biologic mesh to reinforce the repair. I also explained the possibility of having to perform component separation. The patient understands the risks as I described them. I described the risks of bleeding, infection, bowel injury. The patient is willing to proceed with ventral hernia repair if needed during her abdominal wall debridement. Gato Lobo MD Pager: [facility] [address] [place] [address], [address] [place] [address] Office:
[2018-05-11] MEDS: Famotidine 20 MG Tablet PO ×2 (07:58→22:33)
[2018-05-11] MEDS: Loratadine 10 MG Tablet PO (07:58)
[2018-05-11] MEDS: Montelukast 10 MG Tablet PO (07:59)
[2018-05-11] MEDS: Lisinopril 10 MG Tablet PO (07:59)
[2018-05-11] MEDS: Sertraline 100 MG Tablet PO (07:59)
--- NOTE | 2018-05-11 08:50 | PCM.PROGNOTE ---
Patient Problems: Active and Suspected Problems Panniculitis (Acute) Incisional hernia (Acute) Subjective: Chief complaint: Follow-up after admission for massive abdominal panniculus with nonhealing infected ulcer and panniculitis. Patient seen and examined. No acute events overnight. She is asymptomatic, no significant complaints. Her vital signs are stable. She is going for surgery today. - Physical Exam General: Alert, Oriented x3, Cooperative, No apparent distress HEENT: Atraumatic, PERRLA, EOMI, Normocephalic Oral: Moist Mucosa, No Gingival or Mucosal Lesions/ Ulcerations Neck: Supple, No JVD, Negative Carotid Bruits, Trachea Midline, Thyroid Normal Size and Texture Lungs: Clear to auscultation, No rhonchi, No wheeze, No rales, Diminished Cardiovascular: Regular rate, Regular Rhythm, Normal S1, Normal S2, No murmurs Abdomen: Bowel Sounds Present, Soft, Non Tender, Non-Distended, No Hepato-splenomegaly, Obese Extremities: No clubbing, No cyanosis, No edema Skin: No rashes, Ulcer/ Wound Lymphatic: No Cervical, Supraclavicular, or Inguinal Adenopathy Neurological: Cranial nerves II-XII grossly intact, Neuro grossly intact Psych/Mental Status: Normal Affect, Appropriate, Alert and oriented to time, place, person, mood and affect Vital Signs Temp Pulse Resp BP Pulse Ox 98.0 F 81 18 123/68 H 99 05/11/18 03:30 05/11/18 03:30 05/11/18 03:30 05/11/18 03:30 05/11/18 03:30 Oxygen Delivery Method Room Air Weight: 479 lb 15.988 oz Body Mass Index (BMI) 90.6 Intake and Output for Last 24 Hours 05/09/18 05/10/18 05/11/18 23:59 23:59 23:59 Intake Total 3388 / 3388 919 / 919 1206 / 1206 Output Total 6825 / 6825 5100 / 5100 100 / 100 Balance -3437 / -3437 -4181 / -4181 1106 / 1106 Laboratory Tests Past 24 Hrs 05/11/18 05/11/18 05/11/18 05:25 05:25 05:25 WBC 9.0 RBC 4.07 L Hgb 11.0 L Hct 35.6 L MCV 87.5 MCH 27.0 MCHC 30.9 L RDW 14.8 H RDW Differential 46.6 H Plt Count 261 MPV 10.4 Immature Gran % (Auto) 0.400 Neut % (Auto) 64.0 Lymph % (Auto) 22.8 Randolph % (Auto) 7.9 Eos % (Auto) 4.5 Baso % (Auto) 0.4 Absolute Neuts (auto) 5.7 Absolute Lymphs (auto) 2.04 Total Counted Not Reportable PT 13.8 INR 1.1 APTT 30.9 Sodium 139 Potassium 4.2 Chloride 100 Carbon Dioxide 31.0 Anion Gap 8 BUN 14 Creatinine 0.77 Estim Creat Clear Calc 71.82 Est GFR (MDRD) Af Amer 106 Est GFR (MDRD) Non-Af 88 BUN/Creatinine Ratio 18.3 Glucose 94 Calcium 9.0 TSH 47.40 H Serum , Qual 05/11/18 05:25 WBC RBC Hgb Hct MCV MCH MCHC RDW RDW Differential Plt Count MPV Immature Gran % (Auto) Neut % (Auto) Lymph % (Auto) Randolph % (Auto) Eos % (Auto) Baso % (Auto) Absolute Neuts (auto) Absolute Lymphs (auto) Total Counted PT INR APTT Sodium Potassium Chloride Carbon Dioxide Anion Gap BUN Creatinine Estim Creat Clear Calc Est GFR (MDRD) Af Amer Est GFR (MDRD) Non-Af BUN/Creatinine Ratio Glucose Calcium TSH Serum , Qual NEGATIVE Medical Necessity - Tobacco Use Smoking Status: Never smoker Tobacco Use: Non-smoker Assessment/Plan All Active Problems Panniculitis (Acute) Incisional hernia (Acute) Severe sepsis (Acute) This is a 42 years old female patient presented to the emergency room because of worsening abdominal wall pain, erythema and swelling with 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 #1 acute/recurrent anterior abdominal wall cellulitis/nonhealing infected ulcer and panniculitis: She is on IV clindamycin and Levaquin. Her vital signs are stable, afebrile. White blood cell count is back to normal. Blood culture showed no growth in 48 hours. Wound cultures pending. Plastic and general surgery on the case, plan for surgery today. #2 severe sepsis: Secondary to above. She has been on IV fluids and IV antibiotics. Lactic acid is back to normal. Hemodynamically stable, afebrile. Plan as above. #3 hypertension: Blood pressure stable, continue lisinopril. #4 hypothyroidism: Continue levothyroxine. #5 bronchial asthma: #6 obstructive sleep apnea: Clinically stable, pulse ox is maintained on room air. She is on albuterol as needed. #7 depression: Continue Zoloft. Continue Zoloft. #8 DVT prophylaxis: Subcu Lovenox. This note was generated with [employer] dictation software. It may contain incorrect words, spelling, and punctuation that were not noted in checking the note before signing. Code Visit Inpatient E&M: 23906 Subs Hosp L2
--- NOTE | 2018-05-11 09:00 | PANN_PTH ---
PATIENT: ROSALIE RUFF LOC: MS3 U#:[id number] AGE/SX: 42/F ROOM: MS317 RE05/06/[address]: Dr. Cuca Mast MD : 1975 BED: 1 DIS: 05/21/2018 SPEC #: [id number] RECD: 05/12/18 08:33 STATUS: NIMISHA REQ #: [id number] TANA: 05/11/18 09:[address]: Yrn Hendricks DEPT: SURGICAL PATHOLOGY RECD BY: Karthik Burrell ENTERED: 05/12/18 13:01 SP TYPE: PANNUS OTHR DR: MD Dr. Adonay Vinson MD Dr. Ghasem E Ashelfah, MD Dr. Jordan Garrison, DO Dr. James A Slaby, MD Tissues: Abdomen, NOS Procedures: Surgery Specimen Level III Comments: @ Ordering doctor for SUIV edited from to @ by DARWINOD at 05/12/18 1504 @ Submitting doctor edited from to @ by RGOOD at 05/12/18 1504 HEADER OPERATION: Abdominal panniculectomy, debridement, ulcer, lower abdominal wall PRE-OP DIAGNOSIS: Panniculitis, severe sepsis TISSUE SUBMITTED: Abdominal wall abscess/tissue MICROSCOPIC DIAGNOSIS Abdominal wall abscess/tissue, panniculectomy: Pieces of skin with underlying tissue with focal ulceration, fat necrosis and associated inflammation. MOOK:jeromy 05/13/18 MICROSCOPIC DESCRIPTION Slides are reviewed. GROSS DESCRIPTION Received in fixative is one container labeled with the patient's name and designated abdominal wall abscess/tissue. The specimen consists of a piece of skin with underlying tissue measuring 21 x 19 cm and up to 5 cm in thickness. Also present in the container is a detached piece of skin with underlying tissue. The skin piece measures 8 x 9 cm and the underlying tissue measures 13 x 6 x 3 cm. A focal area of ulceration is noted in this piece. Sections do not reveal any mass lesion. [employer] sections are submitted in four cassettes. / MOOK:jeromy 05/12/18 TC:2 CPT: 57635
[2018-05-11] MEDS: levoFLOXacin IV 500 MG/100 ML BAG 100 MG IV (09:29)
--- NOTE | 2018-05-11 17:37 | PCA ---
pt off floor
--- NOTE | 2018-05-11 18:30 | OP.PN_ITS ---
Immediate Post-Op Note Date of Procedure: 05/11/18 Primary Surgeon/Physician: Yrn Hendricks elevator operator: Gato Lobo MD Pre-Operative Diagnosis: 1. 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 2. Borderline diabetes. 3. Abdominal wall skin crease intertrigo. 4. Morbid obesity. 5. Incisional hernia. Post-Operative Diagnosis: 1. Massive abdominal panniculus with nonhealing infected ulcer and panniculitis and necrotizing soft tissue infection. 2. Borderline diabetes. 3. Abdominal wall skin crease intertrigo. 4. Morbid obesity. 5. Incisional hernia. Surgery/Procedure Performed:: Surgical preparation lower anterior abdominal wall massive panniculus with excisional debridement nonhealing ulcer and skin and subcutaneous tissue for necrotizing soft tissue infection and panniculectomy (777 cm2). Description of Surgical Findings:: The patient is a 42 year old F with a history of morbid obesity and borderline diabetes who presented to the ED with worsening pain and redness and swelling in her massive abdominal panniculus with a nonhealing infected ulcer and panniculitis. She has been treated for her intermittent bouts of abdominal panniculitis, the most recent in [place]. Recently she was placed on oral antibiotics for another episode and has worsening symptomatology. In the ED, her WBC was 11.6 and her Lactate was 2.2. Repeat labs the next morning showed the WBC had improved to 6.9 and the Lactate had decreased to 1.1. She was given Cleocin in the ED. On the floor she was started on Ancef. Patient states she has an umbilical hernia and she was told that will be repaired in the future after she loses weight. She was in the ED back in 03/[address] Abdomen and Pelvis was done. It showed A lower midline ventral hernia containing nonobstructed small bowel. Small bowel extends into the patient's pannus. Dr. Lobo from General Surgery was consulted to assist with the dissection and to repair the hernia if it is involved with the infected tissue that is being excised. Today the patient underwent surgical preparation lower anterior abdominal wall massive panniculus with excisional debridement nonhealing ulcer and skin and subcutaneous tissue for necrotizing soft tissue infection and panniculectomy ( 777 cm2). Size of defect lower anterior abdominal wall area - 21 x 37 x 4 cm. Estimated Blood Loss: 150 ml. Specimen's removed: Nonhealing ulcer abdominal wall with abdominal panniculus to Pathology and Microbiology. Drains: None. Type of Anesthesia:: General - Admit VTE Documentation VTE Present on Admission: No VTE Mechan Device Prophylaxis: SCD's VTE Pharm Prophylaxis ordered?: Yes
[2018-05-12] VITALS (8 sets, daily range): BP systolic 93–127; BP diastolic 47–69; PULSE 88–108; RESP 16–20; TEMP 36.6–37.1; O2SAT 94–99
[2018-05-12 06:04] LABS: Mean Corp Hgb Conc 29.7 g/gl (32-36); Mean Corpuscular Hgb 26.5 pg (27.0-32.0); Mean Corpuscular Volume 89.2 fL (81-99); Mean Platelet Vol. 10.1 fl (6.2-12.0); Platelet Count 273 K/mm3 (150-450); RBC Distribution Width CV 14.9 % (11.6-14.6); RBC Distribution Width SD 48.4 fl (35.1-43.9); Red Blood Count 4.15 M/mm3 (4.2-5.4); White Blood Count 16.5 K/mm3 (4.4-11.0)
[2018-05-12 06:07] LABS: Scan Indicated on CBC? Y/N NO
[2018-05-12] MEDS: Levothyroxine 150 MCG Tablet 300 MCG PO (06:15)
[2018-05-12] MEDS: Morphine 2 MG/ML Syringe IV ×4 (06:15→21:40)
[2018-05-12] MEDS: Nystatin Powder 15gm Bottle 1 APPLIC TOPICAL ×3 (06:15→21:41)
[2018-05-12] MEDS: 0.9% NaCl Peripheral Flush Adult/Peds IV ×3 (06:16→21:52)
[2018-05-12 06:32] LABS: Anion Gap 7 (5-15); BUN 9 mg/dL (7-18); Calcium,Total 8.6 mg/dL (8.5-10.1); Chloride 102 mmol/L (98-107); Creatinine, Serum 0.64 mg/dL (0.55-1.02); EST Glomerular Filtration Rate 107 mL/min (>60); Est Glom Filt Rate - Afr Amer 129 mL/min (>60); Estimated Creatinine Clearance 86.41 ml/min; Glucose 107 mg/dL (74-106); Potassium 4.5 mmol/L (3.5-5.1); Prealbumin 21.1 mg/dL (20.0-40.0); Sodium Level 139 mmol/L (136-145)
--- NOTE | 2018-05-12 08:56 | PCM.PROGNOTE ---
Patient Problems: Active and Suspected Problems Incisional hernia (Acute) Subjective: Chief complaint: Follow-up after admission for massive abdominal panniculus with nonhealing infected ulcer and panniculitis. Patient seen and examined. No acute events overnight. She denied any significant complaints. Her vital signs are stable. - Physical Exam General: Alert, Oriented x3, Cooperative, No apparent distress HEENT: Atraumatic, PERRLA, EOMI, Normocephalic Oral: Moist Mucosa, No Gingival or Mucosal Lesions/ Ulcerations Neck: Supple, No JVD, Negative Carotid Bruits, Trachea Midline, Thyroid Normal Size and Texture Lungs: Clear to auscultation, No rhonchi, No wheeze, No rales, Diminished Cardiovascular: Regular rate, Regular Rhythm, Normal S1, Normal S2, No murmurs Abdomen: Bowel Sounds Present, Soft, Non Tender, Non-Distended, No Hepato-splenomegaly, Obese Extremities: No clubbing, No cyanosis, No edema, Edema Skin: No rashes, Ulcer/ Wound Lymphatic: No Cervical, Supraclavicular, or Inguinal Adenopathy Neurological: Cranial nerves II-XII grossly intact, Motor Exam 5/5 strength throughout Psych/Mental Status: Normal Affect, Appropriate, Alert and oriented to time, place, person, mood and affect Vital Signs Temp Pulse Resp BP Pulse Ox 97.8 F 97 16 127/67 H 96 05/12/18 06:11 05/12/18 06:11 05/12/18 06:11 05/12/18 06:11 05/12/18 06:11 Oxygen Flow Rate (L/min) 2 Oxygen Delivery Method Nasal Cannula Weight: 479 lb 15.988 oz Body Mass Index (BMI) 90.6 Intake and Output for Last 24 Hours 05/10/18 05/11/18 05/12/18 23:59 23:59 23:59 Intake Total 919 / 919 4476 / 4476 934 / 934 Output Total 5100 / 5100 2465 / 2465 475 / 475 Balance -4181 / -4181 2010 459 / 459 Microbiology Past 72 Hours 05/10/18 21:50 Gram Stain - Final Wound - Abdominal Laboratory Tests Past 24 Hrs 05/12/18 05/12/18 05:40 05:40 WBC 16.5 H RBC 4.15 L Hgb 11.0 L Hct 37.0 MCV 89.2 MCH 26.5 L MCHC 29.7 L RDW 14.9 H RDW Differential 48.4 H Plt Count 273 MPV 10.1 Sodium 139 Potassium 4.5 Chloride 102 Carbon Dioxide 30.0 Anion Gap 7 BUN 9 Creatinine 0.64 Estim Creat Clear Calc 86.41 Est GFR (MDRD) Af Amer 129 Est GFR (MDRD) Non-Af 107 BUN/Creatinine Ratio 14.0 Glucose 107 H Calcium 8.6 Prealbumin 21.1 Medical Necessity - Tobacco Use Smoking Status: Never smoker Tobacco Use: Non-smoker Assessment/Plan All Active Problems Panniculitis (Acute) Incisional hernia (Acute) Severe sepsis (Acute) This is a 42 years old female patient presented to the emergency room because of worsening abdominal wall pain, erythema and swelling with 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 #1 acute/recurrent anterior abdominal wall cellulitis/nonhealing infected ulcer and panniculitis: Status post excision of nonhealing ulcer and panniculectomy, postoperative day 1. Remains on IV clindamycin and Levaquin. Her vital signs are stable, afebrile. White blood cell count is trending up, afebrile. Blood culture showed no growth in 48 hours. Wound cultures pending. Culture of the surgical specimen is pending as well. Plastic surgery on the case. Plan to continue same treatment, awaiting culture results. #2 severe sepsis: Secondary to above. She has been on IV fluids and IV antibiotics. Lactic acid is back to normal. Hemodynamically stable, afebrile. Plan as above. #3 hypertension: Blood pressure stable, continue lisinopril. #4 hypothyroidism: Continue levothyroxine. #5 bronchial asthma: #6 obstructive sleep apnea: Clinically stable, pulse ox is maintained on room air. She is on albuterol as needed. #7 depression: Continue Zoloft. Continue Zoloft. #8 DVT prophylaxis: Subcu Lovenox. This note was generated with [employer] dictation software. It may contain incorrect words, spelling, and punctuation that were not noted in checking the note before signing. Code Visit Inpatient E&M: 03350 Subs Hosp L2
[2018-05-12] MEDS: Lactated Ringers 1,000 ML 60 ML IV (09:17)
[2018-05-12] MEDS: levoFLOXacin IV 500 MG/100 ML BAG 100 MG IV (09:22)
[2018-05-12] MEDS: Sertraline 100 MG Tablet PO (09:22)
[2018-05-12] MEDS: Enoxaparin 40 MG/0.4 ML Syringe SC ×2 (09:23→21:41)
[2018-05-12] MEDS: Lisinopril 10 MG Tablet PO (09:23)
[2018-05-12] MEDS: Famotidine 20 MG Tablet PO ×2 (09:23→21:42)
[2018-05-12] MEDS: Montelukast 10 MG Tablet PO (09:23)
[2018-05-12] MEDS: Loratadine 10 MG Tablet PO (09:23)
--- NOTE | 2018-05-12 09:23 | OP.PCM_ITS ---
Report of Operation Date of Procedure: 05/11/18 Pre-Operative Diagnosis: 1. 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 2. Borderline diabetes. 3. Abdominal wall skin crease intertrigo. 4. Morbid obesity. 5. Incisional hernia. Post-Operative Diagnosis: 1. Massive abdominal panniculus with nonhealing infected ulcer and panniculitis and necrotizing soft tissue infection. 2. Borderline diabetes. 3. Abdominal wall skin crease intertrigo. 4. Morbid obesity. 5. Incisional hernia. Surgery/Procedure Performed:: Surgical preparation lower anterior abdominal wall massive panniculus with excisional debridement nonhealing ulcer and skin and subcutaneous tissue for necrotizing soft tissue infection and panniculectomy (777 cm2). Description of Surgical Findings:: The patient is a 42 year old F with a history of morbid obesity and borderline diabetes who presented to the ED with worsening pain and redness and swelling in her massive abdominal panniculus with a nonhealing infected ulcer and panniculitis. She has been treated for her intermittent bouts of abdominal panniculitis, the most recent in [place]. Recently she was placed on oral antibiotics for another episode and has worsening symptomatology. In the ED, her WBC was 11.6 and her Lactate was 2.2. Repeat labs the next morning showed the WBC had improved to 6.9 and the Lactate had decreased to 1.1. She was given Cleocin in the ED. On the floor she was started on Ancef. Patient states she has an umbilical hernia and she was told that will be repaired in the future after she loses weight. She was in the ED back in 03/[address] Abdomen and Pelvis was done. It showed A lower midline ventral hernia containing nonobstructed small bowel. Small bowel extends into the patient's pannus. Dr. Lobo from General Surgery was consulted to assist with the dissection and to repair the hernia if it is involved with the infected tissue that is being excised. Patient was informed of the risks and complications of the procedure including alternatives to surgery. These were discussed with the patient personally. Patient voices understanding and wishes to proceed. Patient understands the wound will be left open initially with wound care using the VAC. And removing this massive panniculus will take multiple procedures. Size of defect lower anterior abdominal wall area - 21 x 37 x 4 cm. director apparel: Gato Lobo MD Type of Anesthesia:: General Specimen's removed: Nonhealing ulcer abdominal wall with abdominal panniculus to Pathology and Microbiology. Drains: None. Estimated Blood Loss (mL): 150 ml. Description of Procedure: Patient was taken to the OR in supine position and was placed under general anesthesia. Her abdominal wall and pubic area and upper thighs were prepped and draped in the usual fashion. SCD's were placed for DVT prophylaxis. Perioperative antibiotics were given intravenously. A brady catheter was placed. Most of the infection was located just to the right of the midline in the lower most dependent portion of her massive panniculus. Dr. Lobo assisted me during the surgery. He performed a necessary and very important function of navigating around the hernia sac during the excision of the infected tissue. He was here to repair the incisional hernia if it became exposed during the excision of the infected tissue. Because of his expertise in dissecting the subcutaneous tissue off of the area that was located very closely clinically to the hernia, we were able to avoid having to repair the hernia at this time which would have increased the risk of postop problems since this was an infected ulcerated area that was excised and debrided. During the excisional debridement, there was a lot of fat necrosis and surrounding edema. Dissection was carried down to the abdominal wall fascia where the most indurated area was which looked viable and slightly inflamed. All of this fat necrosis was sharply excised and debrided. The nonhealing ulcer in the midline was also sharply excised and debrided. Some of the soft tissue was sent to Pathology for analysis to rule out carcinoma and to Microbiology for culture. A positive culture may necessitate antibiotic modification. There was a fair amount of bleeding that was easily controlled with electrocautery. The wound was irrigated with saline. After the indurated erythematous infected tissue was excised, the remaining tissue edges were soft and viable. No hernia sac was encountered. The size of the wound defect after excision and debridement of this necrotizing soft tissue infection was 21 x 37 x 4 cm or 777 cm2. The wound was then dressed with Mepitel nonadherent dressing followed by Kerlix gauze with Betadine followed by dry Kerlix gauze and ABD pads for a compression dressing. The VAC will be placed tomorrow. Will also place an abdominal binder on after she gets out of bed tomorrow. Patient tolerated the procedure well and was sent to PACU in satisfactory condition. She will be sent back upstairs for continued postop care. Due to the complexity of the wound and the need for a VAC and probably IV antibiotics, she may be better off going to an ECF for a short while at discharge. After discharge, she can followup at the [facility]. If there is a plateau in the healing process, can proceed with delayed closure with skin grafting or a complex secondary wound closure. Once again, Dr. Lobo assisted me during the surgery. He performed a necessary and very important function of navigating around the hernia sac during the excision of the infected tissue. Grafts/Implants Used: None. - Complications None. - Admit VTE Documentation VTE Present on Admission: No VTE Mechan Device Prophylaxis: SCD's VTE Pharm Prophylaxis ordered?: Yes Code Visit Surgery Charges CPT - 06489 ICD-10 - L98.492, M79.89, E65, M79.3, R73.03, L30.4, K43.2, E66.9
--- NOTE | 2018-05-12 14:30 | CASEMGMT ---
RN CM discussed discharge disposition plans with patient. RN CM discussed option of LTACH with patient and increased care for wounds and iv ATBs. Patient voiced understanding and would like to discuss plans with mother. RN CM will remain available for discharge planning.
--- NOTE | 2018-05-12 15:00 | CASEMGMT ---
RN CM asked to room. Patient, mother, and eldest daughter in room. RN CM explained details regarding LTACH and potential needs. Mother states that patient does not want to go to LTACH due to it being in [place] and does not want to be away from family. Patient wishes to discharge home with resumption of HHC. CM will follow up with [facility] if they are able to resume care with patient.
--- NOTE | 2018-05-12 15:30 | CASEMGMT ---
JENIFER SHAH discussed with [facility] patient's needs at discharge. [facility] is reviewing patient's care and if they are able to accept. JENIFER SHAH updated patient and asked if she would be willing to go to SNF if [facility] is unable to accept her. Patient states she is agreeable to SNF if [facility] can not be setup with [facility]. JENIFER SHAH updated SW in regard to potential SNF referral. PABLO will continue to follow this patient and plan for a safe discharge.
--- NOTE | 2018-05-12 19:09 | PN.SURG_ITS ---
Patient Problems: Active and Suspected Problems Incisional hernia (Acute) Subjective: Postop #1 VAC placed today. - Physical Exam General: Alert, Oriented x3 HEENT: PERRLA, EOMI Oral: Moist Mucosa Neck: Supple Abdomen: Hernia - stable. Skin: Ulcer/ Wound - lower anterior abdominal wall wound is stable. No bleeding noted. VAC applied today. Neurological: Cranial nerves II-XII grossly intact Psych/Mental Status: Normal Affect, Appropriate Vital Signs Temp Pulse Resp BP Pulse Ox 98.7 F 108 H 16 98/54 L 95 05/12/18 13:33 05/12/18 13:33 05/12/18 13:33 05/12/18 13:33 05/12/18 13:33 Oxygen Flow Rate (L/min) 2 Oxygen Delivery Method Room Air Weight: 479 lb 15.988 oz Body Mass Index (BMI) 90.6 Intake and Output for Last 24 Hours 05/10/18 05/11/18 05/12/18 23:59 23:59 23:59 Intake Total 919 / 919 4476 / 4476 934 / 934 Output Total 5100 / 5100 2465 / 2465 475 / 475 Balance -4181 / -4181 2010 459 / 459 Microbiology Past 72 Hours 05/11/18 Unknown Gram Stain - Final Incision/Surgical Site Wound Culture - Preliminary No growth-Final to follow 05/10/18 21:50 Gram Stain - Final Wound - Abdominal Wound Culture - Preliminary Staphylococcus species Laboratory Tests Past 24 Hrs 05/12/18 05/12/18 05:40 05:40 WBC 16.5 H RBC 4.15 L Hgb 11.0 L Hct 37.0 MCV 89.2 MCH 26.5 L MCHC 29.7 L RDW 14.9 H RDW Differential 48.4 H Plt Count 273 MPV 10.1 Sodium 139 Potassium 4.5 Chloride 102 Carbon Dioxide 30.0 Anion Gap 7 BUN 9 Creatinine 0.64 Estim Creat Clear Calc 86.41 Est GFR (MDRD) Af Amer 129 Est GFR (MDRD) Non-Af 107 BUN/Creatinine Ratio 14.0 Glucose 107 H Calcium 8.6 Prealbumin 21.1 Medical Necessity - Tobacco Use Smoking Status: Never smoker Tobacco Use: Non-smoker Assessment/Plan All Active Problems Necrotizing soft tissue infection (Acute) Panniculitis (Acute) Incisional hernia (Acute) Severe sepsis (Acute) 1. Massive abdominal panniculus with nonhealing infected ulcer and panniculitis and necrotizing soft tissue infection. 2. Borderline diabetes. 3. Abdominal wall skin crease intertrigo. 4. Morbid obesity. 5. Incisional hernia. 6. s/p surgical preparation lower anterior abdominal wall massive panniculus with excisional debridement nonhealing ulcer and skin and subcutaneous tissue for necrotizing soft tissue infection and panniculectomy (777 cm2). Continue Cleocin and Levaquin. Culture thus far shows Staphylococcus aureus. Operative cultures are pending. VAC was applied today without difficulty. To be changed three times per week at 150 mmHg continuous suction. Prealbumin was 21.1. Encourage nutritional supplementation with protein to help the healing process. With the complexity of the wound with the VAC and with the need for IV antibiotics, she would be best served for a short stay at an [facility]. Patient was in agreement with that plan. Post discharge, can then followup at the Wound Center. Code Visit Inpatient E&M: 47840 Subs Hosp L2 - ICD-10 - L98.492, M79.89, E65, M79.3, R73.03, L30.4, K43.2, E66.9
[2018-05-12] MEDS: Ondansetron 4 MG/2 ML Vial IV (21:39)
[2018-05-13] VITALS (9 sets, daily range): BP systolic 85–121; BP diastolic 41–63; PULSE 83–104; RESP 16–18; TEMP 36.4–37.3; O2SAT 94–100
[2018-05-13] MEDS: 0.9% Normal Saline 1,000 ML 999 ML IV ×2 (02:03→04:30)
[2018-05-13 05:36] LABS: Absolute Lymphocyte Count 2.56 X10^3/ul (0.83-4.51); Basophil# 0.03 X10^3/uL; Basophil% 0.2 % (0-1); Eosinophil# 0.26 X10^3/uL; Eosinophils% 2.2 % (0-5); Hematocrit 30.6 % (37-47); Hemoglobin 9.2 g/dl (12.0-15.0); Lymphocyte # 2.56 X10^3/ul (4.0); Lymphocyte % 21.2 % (19-41); Mean Corp Hgb Conc 30.1 g/gl (32-36); Mean Corpuscular Hgb 27.2 pg (27.0-32.0); Mean Corpuscular Volume 90.5 fL (81-99); Mean Platelet Vol. 10.5 fl (6.2-12.0); Monocyte# 1.16 X10^3/uL; Monocyte% 9.6 % (0-10); Neutrophil # 8.01 X10^3/uL (2.7-7.7); Neutrophil % 66.4 % (47-70); Platelet Count 234 K/mm3 (150-450); Red Blood Count 3.38 M/mm3 (4.2-5.4); White Blood Count 12.1 K/mm3 (4.4-11.0)
[2018-05-13 05:52] LABS: POSITIVE COUNT NO; POSITIVE DIFFERENTIAL NO; POSITIVE MORPHOLOGY NO
[2018-05-13 05:56] LABS: Anion Gap 7 (5-15); BUN 18 mg/dL (7-18); BUN/Creat Ratio 22.1 RATIO (10-20); Calcium,Total 7.9 mg/dL (8.5-10.1); Chloride 105 mmol/L (98-107); Creatinine, Serum 0.82 mg/dL (0.55-1.02); EST Glomerular Filtration Rate 82 mL/min (>60); Est Glom Filt Rate - Afr Amer 99 mL/min (>60); Estimated Creatinine Clearance 67.44 ml/min; Glucose 90 mg/dL (74-106); Potassium 4.5 mmol/L (3.5-5.1); Sodium Level 140 mmol/L (136-145)
[2018-05-13 05:59] LABS: Lactic Acid 0.5 mmol/L (0.4-2.0)
[2018-05-13] MEDS: 0.9% NaCl Peripheral Flush Adult/Peds IV (06:10)
[2018-05-13] MEDS: Nystatin Powder 15gm Bottle 1 APPLIC TOPICAL ×3 (06:11→20:57)
[2018-05-13] MEDS: Levothyroxine 150 MCG Tablet 300 MCG PO (06:12)
--- NOTE | 2018-05-13 09:06 | PCM.PROGNOTE ---
Patient Problems: Active and Suspected Problems Incisional hernia (Acute) Subjective: Chief complaint: Follow-up after admission for massive abdominal panniculus with nonhealing infected ulcer and panniculitis. Patient seen and examined. Overnight, patient became hypotensive while asleep. She received bolus of IV fluids and his blood pressure improved. She complains of lower abdominal discomfort after incision of the wound VAC. This morning, her vital signs are stable. - Physical Exam General: Alert, Oriented x3, Cooperative, No apparent distress HEENT: Atraumatic, PERRLA, EOMI, Normocephalic Oral: Moist Mucosa, No Gingival or Mucosal Lesions/ Ulcerations Neck: Supple, No JVD, Negative Carotid Bruits, Trachea Midline, Thyroid Normal Size and Texture Lungs: Clear to auscultation, No rhonchi, No wheeze, No rales, Diminished Cardiovascular: Regular rate, Regular Rhythm, Normal S1, Normal S2, PMI Normal Abdomen: Bowel Sounds Present, Soft, Non Tender, Non-Distended, No Hepato-splenomegaly, Obese Extremities: No clubbing, No cyanosis, No edema Skin: No rashes, Ulcer/ Wound Lymphatic: No Cervical, Supraclavicular, or Inguinal Adenopathy Neurological: Cranial nerves II-XII grossly intact, Neuro grossly intact Psych/Mental Status: Normal Affect, Appropriate, Alert and oriented to time, place, person, mood and affect Vital Signs Temp Pulse Resp BP Pulse Ox 98.7 F 95 16 121/63 H 100 05/13/18 07:43 05/13/18 07:43 05/13/18 07:43 05/13/18 07:43 05/13/18 07:43 Oxygen Flow Rate (L/min) 2 Oxygen Delivery Method Nasal Cannula Weight: 479 lb 15.988 oz Body Mass Index (BMI) 90.6 Intake and Output for Last 24 Hours 05/11/18 05/12/18 05/13/18 23:59 23:59 23:59 Intake Total 4476 / 4476 2575 / 2575 2586 / 2586 Output Total 2465 / 2465 1100 / 1100 850 / 850 Balance 2010 1475 / 1475 1736 / 1736 Microbiology Past 72 Hours 05/10/18 21:50 Gram Stain - Final Wound - Abdominal Wound Culture - Preliminary Staphylococcus species Anaerobic Culture - Preliminary Checking for anaerobes, further studies to follow. 05/11/18 Unknown Gram Stain - Final Incision/Surgical Site Wound Culture - Preliminary No growth-Final to follow Laboratory Tests Past 24 Hrs 05/13/18 05/13/18 05/13/18 05:00 05:00 05:00 WBC 12.1 H RBC 3.38 L Hgb 9.2 L Hct 30.6 L MCV 90.5 MCH 27.2 MCHC 30.1 L RDW 15.0 H RDW Differential 49.0 H Plt Count 234 MPV 10.5 Immature Gran % (Auto) 0.400 Neut % (Auto) 66.4 Lymph % (Auto) 21.2 [place] % (Auto) 9.6 Eos % (Auto) 2.2 Baso % (Auto) 0.2 Absolute Neuts (auto) 8.0 H Absolute Lymphs (auto) 2.56 Total Counted Not Reportable Sodium 140 Potassium 4.5 Chloride 105 Carbon Dioxide 28.0 Anion Gap 7 BUN 18 Creatinine 0.82 Estim Creat Clear Calc 67.44 Est GFR (MDRD) Af Amer 99 Est GFR (MDRD) Non-Af 82 BUN/Creatinine Ratio 22.1 H Glucose 90 Lactic Acid 0.5 Calcium 7.9 L Medical Necessity - Tobacco Use Smoking Status: Never smoker Tobacco Use: Non-smoker Assessment/Plan All Active Problems Panniculitis (Acute) Incisional hernia (Acute) Severe sepsis (Acute) This is a 42 years old female patient presented to the emergency room because of worsening abdominal wall pain, erythema and swelling with 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 #1 acute/recurrent anterior abdominal wall cellulitis/nonhealing infected ulcer and panniculitis: Status post excision of nonhealing ulcer and panniculectomy, status post wound VAC insertion, postoperative day 2. Remains on IV clindamycin and Levaquin. Overnight, she became hypotensive while asleep but blood pressure improved after IV fluid bolus. White blood cell count is trending down, afebrile. Blood culture showed no growth in 5 days. Wound cultures revealed Staphylococcus species, final is pending. Culture of the surgical specimen is pending as well. Plastic surgery on the case. Plan to continue same treatment, patient will need placement [facility]. #2 severe sepsis: Secondary to above. She has been on IV fluids and IV antibiotics. Lactic acid is back to normal. Plan as above. #3 hypertension: Blood pressure became low last night while patient sleep, improved with IV fluid bolus. This morning, blood pressure stable, continue lisinopril. #4 hypothyroidism: Continue levothyroxine. #5 bronchial asthma: Clinically stable, pulse ox is maintained on 2 L. She is on albuterol as needed. #6 depression: Continue Zoloft. Continue Zoloft. #7 DVT prophylaxis: Subcu Lovenox. This note was generated with Slingbox dictation software. It may contain incorrect words, spelling, and punctuation that were not noted in checking the note before signing. Code Visit Inpatient E&M: 80907 Subs Hosp L2
--- NOTE | 2018-05-13 10:04 | CASEMGMT ---
Social Work Note RN PABLO Ryan informed this worker that pt's care might be too much for HHC and pt could benefit from SNF at discharge. SW in to speak with pt regarding SNF. Pt agreeable to SNF referral. SW provided verbal list of in network facilities to pt. Pt states that she would like a referral sent to either [facility] or [facility]. Pt doesn't want a referral sent to [facility] as pt states her dad was at [facility] and didn't get the help he needed. SW explained referral process and pre-certification process. Pt states understanding. Pt denied additional needs or concerns at this time. SW faxed referral to both [facility] and [facility]. Plan: SNF pending acceptance and pre-cert Lindsay Noguera AUTO ELECTRICAL TECHNICIAN, RUG SHAMPOOER
[2018-05-13] MEDS: levoFLOXacin IV 500 MG/100 ML BAG 100 MG IV (10:27)
[2018-05-13] MEDS: Famotidine 20 MG Tablet PO ×2 (10:29→21:00)
[2018-05-13] MEDS: Enoxaparin 40 MG/0.4 ML Syringe SC ×2 (10:29→21:00)
[2018-05-13] MEDS: Loratadine 10 MG Tablet PO (10:29)
[2018-05-13] MEDS: Lisinopril 10 MG Tablet PO (10:30)
[2018-05-13] MEDS: Sertraline 100 MG Tablet PO (10:30)
[2018-05-13] MEDS: Montelukast 10 MG Tablet PO (10:30)
[2018-05-13] MEDS: Lactated Ringers 1,000 ML 60 ML IV (10:36)
--- NOTE | 2018-05-13 12:29 | CASEMGMT ---
Addendum entered by Lindsay Noguera 05/13/18 14:41: GEORGIE attempted to see pt to update of acceptance into [facility] but pt soundly sleeping. GEROGIE will attempt at a later time as time allows or update pt tomorrow. Original Note: Social Work Note GEORGIE received message from Halina at [facility] inquiring about pt having own cpap, about therapy, and about IV antibiotics for pt. SW in to ask pt about cpap. Pt states that she doesn't have a cpap. GEORGIE placed a call back to Halina and informed her that pt doesn't have a cpap, that pt is not getting therapy at [facility] and per JENIFER Stephens pt is standy by for therapy including transfers, and that pt is currently on IV Clindamycin and Levofloxacin and that pt will be discharged on IV antiobiotics but that this worker is unsure at this time the IV antibiotics pt will be on at discharge. Halina states that she is able to accept pt and will submit for pre-cert. GEORGIE faxed wound vac order to Halina at [facility]. GEORGIE placed a call to Charlette at [facility] and left her a message that pt has been accepted into another facility and to cancel referral for [facility]. Plan: [facility] pending pre-cert Lindsay Noguera CASE INVESTIGATOR, RETORT FURNACE OPERATOR
[2018-05-13] MEDS: Acetaminophen 325 MG Tablet 650 MG PO (20:58)
[2018-05-13] MEDS: oxyCODONE 5 MG Tablet PO (20:59)
--- NOTE | 2018-05-14 01:45 | NURSING ---
Pt oxygen sats alarm going off with 02 2l. Pt is mouth breather, 02 tubing placed in mouth. Pt having periods of sleep apnea also. Pt had told this nurse previously that she is suppose to wear cpap, and refuses as she has claustraphobia.
[2018-05-14 04:00] VITALS: BP 111/55; PULSE 82; RESP 18; TEMP 36.8; O2SAT 96
[2018-05-14] MEDS: Lactated Ringers 1,000 ML 60 ML IV (05:35)
[2018-05-14] MEDS: Nystatin Powder 15gm Bottle 1 APPLIC TOPICAL ×3 (05:36→22:06)
[2018-05-14] MEDS: Levothyroxine 150 MCG Tablet 300 MCG PO (05:37)
[2018-05-14 07:40] VITALS: O2SAT 97
--- NOTE | 2018-05-14 09:03 | PCM.RX.CS ---
Consult Pharmacy has been consulted to manage selected antiobiotic: Vancomycin Type of Consult: New start Suspected Infection: Sepsis Labs: Sodium 140 mmol/L (136-145) 05/13/18 05:00 Potassium 4.5 mmol/L (3.5-5.1) 05/13/18 05:00 Chloride 105 mmol/L (98-107) 05/13/18 05:00 Carbon Dioxide 28.0 mmol/L (21.0-32.0) 05/13/18 05:00 Anion Gap 7 (5-15) 05/13/18 05:00 BUN 18 mg/dL (7-18) 05/13/18 05:00 Creatinine 0.82 mg/dL (0.55-1.02) 05/13/18 05:00 Est GFR (MDRD) Af Amer 99 mL/min (>60) 05/13/18 05:00 Est GFR (MDRD) Non-Af 82 mL/min (>60) 05/13/18 05:00 BUN/Creatinine Ratio 22.1 RATIO (10-20) H 05/13/18 05:00 Glucose 90 mg/dL (74-106) 05/13/18 05:00 Vancomycin Trough 20.4 ug/mL (5.0-15.0) H 05/09/18 15:30 Microbiology: Microbiology 05/10/18 21:50 Wound - Abdominal Gram Stain - Final 05/10/18 21:50 Wound - Abdominal Wound Culture - Final Staphylococcus epidermidis Corynebacterium amycolatum 05/10/18 21:50 Wound - Abdominal Anaerobic Culture - Final No anaerobic bacteria isolated. 05/11/18 Unknown Incision/Surgical Site Gram Stain - Final 05/11/18 Unknown Incision/Surgical Site Wound Culture - Preliminary Gram positive organism Weight used for dosin.7 kg Estimated Creatinine Clearance: 67 Goal Trough: 15-20 mcg/mL - PATIENT PREVIOUSLY ON VANCOMYCIN. WILL DOSE AT 1250MG Q8H AND CHECK TROUGH ON 05/15/18 @ 0830 PRIOR TO 4TH NEW DOSE. Pharmacy Plan for Drug Dosing: Pharmacy Service will continue to monitor and adjust dosing as required.
--- NOTE | 2018-05-14 09:06 | PN_ITS ---
Patient Problems: Active and Suspected Problems Incisional hernia (Acute) Subjective: Chief complaint: Follow-up after admission for massive abdominal panniculus with nonhealing infected ulcer and panniculitis. Patient seen and examined. No acute events overnight. She has no specific complaints. Vital signs are stable, afebrile. - Physical Exam General: Alert, Oriented x3, Cooperative, No apparent distress HEENT: Atraumatic, PERRLA, EOMI, Normocephalic Oral: Moist Mucosa, No Gingival or Mucosal Lesions/ Ulcerations Neck: Supple, No JVD, Negative Carotid Bruits, Trachea Midline, Thyroid Normal Size and Texture Lungs: Clear to auscultation, No rhonchi, No wheeze, No rales, Diminished Cardiovascular: Regular rate, Regular Rhythm, Normal S1, Normal S2, No murmurs, PMI Normal Abdomen: Bowel Sounds Present, Soft, Non Tender, Non-Distended, No Hepato- splenomegaly, Obese Extremities: No clubbing, No cyanosis, No edema Skin: No rashes, Ulcer/ Wound Lymphatic: No Cervical, Supraclavicular, or Inguinal Adenopathy Neurological: Cranial nerves II-XII grossly intact, Neuro grossly intact Psych/Mental Status: Normal Affect Vital Signs Temp Pulse Resp BP Pulse Ox 98.2 F 82 18 111/55 L 97 05/14/18 04:00 05/14/18 04:00 05/14/18 04:00 05/14/18 04:00 05/14/18 07:40 Oxygen Flow Rate (L/min) 2 Oxygen Delivery Method Room Air Weight: 479 lb 15.988 oz Body Mass Index (BMI) 90.6 Intake and Output for Last 24 Hours 05/12/18 05/13/18 05/14/18 23:59 23:59 23:59 Intake Total 2575 / 2575 4306 / 4306 1866 / 1866 Output Total 1100 / 1100 3525 / 3525 1350 / 1350 Balance 1475 / 1475 781 / 781 516 / 516 Microbiology Past 72 Hours 05/10/18 21:50 Gram Stain - Final Wound - Abdominal Wound Culture - Final Staphylococcus epidermidis Corynebacterium amycolatum Anaerobic Culture - Final No anaerobic bacteria isolated. 05/11/18 Unknown Gram Stain - Final Incision/Surgical Site Wound Culture - Preliminary Gram positive organism Microbiology 05/10/18 21:50 Wound - Abdominal Gram Stain - Final 05/10/18 21:50 Wound - Abdominal Wound Culture - Final Staphylococcus epidermidis Corynebacterium amycolatum 05/10/18 21:50 Wound - Abdominal Anaerobic Culture - Final No anaerobic bacteria isolated. 05/11/18 Unknown Incision/Surgical Site Gram Stain - Final 05/11/18 Unknown Incision/Surgical Site Wound Culture - Preliminary Gram positive organism 05/06/18 17:00 Blood Culture (Wb) - Right Hand Blood Culture - Final No growth in 5 days. 05/06/18 16:50 Blood Culture (Wb) - Left Hand Blood Culture - Final No growth in 5 days. 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 #1 acute/recurrent anterior abdominal wall cellulitis/nonhealing infected ulcer and panniculitis: Status post excision of nonhealing ulcer and panniculectomy, status post wound VAC insertion, postoperative day 3. Remains on IV clindamycin and Levaquin. Vital signs are stable. Wound culture revealed staph epidermidis and corynebacterium. Staph epidermidis is resistant to oxacillin as well as clindamycin and Levaquin. Blood culture showed no growth in 5 days. Plan: Change antibiotics to IV vancomycin, DC IV clindamycin and Levaquin, infectious disease consult. #2 severe sepsis: Secondary to above. She has been on IV fluids and IV antibiotics. Lactic acid is back to normal. Plan as above. #3 hypertension: This morning, blood pressure stable, continue lisinopril. #4 hypothyroidism: Continue levothyroxine. #5 bronchial asthma: Clinically stable, pulse ox is maintained on 2 L. She is on albuterol as needed. #6 depression: Continue Zoloft. Continue Zoloft. #7 DVT prophylaxis: Subcu Lovenox. This note was generated with Access Intelligenceation software. It may contain incorrect words, spelling, and punctuation that were not noted in checking the note before signing. Code Visit Inpatient E&M: 31356 Subs Hosp L2
--- NOTE | 2018-05-14 09:16 | CASEMGMT ---
Addendum entered by Lindsay Noguera 05/14/18 14:35: SW received update from Yennifer BRUNER who states she got a call from Halina at [facility] stating that they have called [facility] and has not heard back yet in regards to pre-cert. Original Note: Addendum entered by Lindsay Noguera 05/14/18 12:21: SW updated pt on acceptance into [facility] and waiting for pre-cert. Pt states understanding. Pt denied additional needs or concerns at this time. Original Note: Social Work Note SW faxed updated clinicals to [facility]. Plan: [facility] pending pre-cert Lindsay Noguera EDUCATIONAL ADVISER, TILT TRAY DRIVER
[2018-05-14 09:35] VITALS: BP 119/61; PULSE 92; RESP 20; TEMP 36.7; O2SAT 100
[2018-05-14] MEDS: Loratadine 10 MG Tablet PO (09:59)
[2018-05-14] MEDS: Famotidine 20 MG Tablet PO ×2 (09:59→22:07)
[2018-05-14] MEDS: Lisinopril 10 MG Tablet PO (10:00)
[2018-05-14] MEDS: Sertraline 100 MG Tablet PO (10:00)
[2018-05-14] MEDS: Enoxaparin 40 MG/0.4 ML Syringe SC ×2 (10:00→22:07)
[2018-05-14] MEDS: Montelukast 10 MG Tablet PO (10:00)
[2018-05-14] MEDS: oxyCODONE 5 MG Tablet PO ×2 (10:03→17:07)
[2018-05-14 10:05] VITALS: O2SAT 99
[2018-05-14] MEDS: Morphine 2 MG/ML Syringe IV ×2 (13:33→16:44)
[2018-05-14] MEDS: 0.9% NaCl Peripheral Flush Adult/Peds IV ×2 (13:41→16:45)
--- NOTE | 2018-05-14 13:56 | PCM.HP.ID ---
Problem List (1) Necrotizing soft tissue infection Status: Acute (2) Panniculitis Status: Acute Reason for Consult: panniculitis Consulted by: Dr. Jones History of Present Illness: The patient is a 42 year old F with morbid obesity and recurrent panniculitis for several years who presented with several weeks of worsened pain, redness, swelling. Some chills. Had been at [facility] recently and d/c on iv abx. Now came to ED, taken to OR 05/[address] Hendricks. Now on iv vanc, picc in place. Feeling better but abd still sore. No n/v/d. Full ROS performed and neg except as noted above. - Medical History Past Medical History (Chronic Problems): Chronic Problems Erythema intertrigo (Chronic) abdominal wall skin crease intertrigo Abdominal panniculus, symptomatic (Chronic) Skin ulcer of abdominal wall with fat layer exposed (Chronic) Anxiety and depression (Chronic) Allergic rhinitis (Chronic) MARCE (obstructive sleep apnea) (Chronic) not on CPAP (pt refusal) Obesity, Class III, BMI 40-49.9 (morbid obesity) (Chronic) Asthma (Chronic) Super-super obese (Chronic) Prediabetes (Chronic) Hypertension (Chronic) Hypothyroid (Chronic) Allergies/Adverse Reactions: Allergies diphenhydramine HCl [From Benadryl] Allergy (Verified 05/06/18 15:13) Hives metronidazole [From Flagyl] Allergy (Verified 05/06/18 15:13) Rash venom-honey bee [bee venom (honey bee)] Allergy (Verified 05/06/18 15:13) Anaphylaxis aspirin Adverse Reaction (Verified 05/06/18 15:13) Upset Stomach codeine Adverse Reaction (Verified 05/06/18 15:13) Other ibuprofen Adverse Reaction (Verified 05/06/18 15:13) Upset Stomach Penicillins Adverse Reaction (Verified 05/06/18 15:13) Nausea Home Medications: Ambulatory Orders Medication Instructions Recorded Lisinopril/Hydrochlorothiazide 1 tablet PO DAILY 03/08/18 [Zestoretic 10/12.5 Tablet] Loratadine [Claritin] 10 mg PO DAILY 03/08/18 Montelukast Sodium [Singulair] 10 mg PO DAILY 03/08/18 Omeprazole [Prilosec] 20 mg PO DAILY 03/08/18 Sertraline HCl [Zoloft] 100 mg PO DAILY 03/08/18 Dimethicone/Da/Vit A,C,E/Kristian 1 applic TP DAILY PRN PRN 05/06/18 [Gold Mustafa Ult Diabetic Cream] Levothyroxine Sodium [Synthroid] 300 mcg PO DAILY 05/06/18 Naproxen Sodium [Aleve] 440 mg PO Q12H PRN PRN 05/06/18 Vancomycin IV 1,250 mg IV Q8H 10 Days #30 vial 05/14/18 - Social History SMOKING STATUS:: Never smoker Vital Signs Temp Pulse Resp BP Pulse Ox 98.0 F 92 20 H 119/61 99 05/14/18 09:35 05/14/18 09:35 05/14/18 09:35 05/14/18 09:35 05/14/18 10:05 Oxygen Flow Rate (L/min) 2 Oxygen Delivery Method Room Air Weight: 217.724 kg Body Mass Index (BMI) 90.6 Microbiology Past 72 Hours 05/11/18 Unknown Gram Stain - Final Incision/Surgical Site Wound Culture - Preliminary Gram positive organism Anaerobic Culture - Preliminary Checking for anaerobes, further studies to follow. 05/10/18 21:50 Gram Stain - Final Wound - Abdominal Wound Culture - Final Staphylococcus epidermidis Corynebacterium amycolatum Anaerobic Culture - Final No anaerobic bacteria isolated. - Other Studies Radiology: [] reviewed Other Studies: [] Route of nutrition/ use of supplements: [] Nutritional Intake: [] IV Site: [] Vitale Catheter: [] - Physical Exam General: Alert, Oriented x3, Cooperative, No apparent distress HEENT: Atraumatic, PERRLA, EOMI Neck: Supple, No Nodes Lungs: Clear to auscultation, Normal air movement Cardiovascular: Regular rate, Regular Rhythm Abdomen: Soft, Non Tender, Non-Distended Extremities: Edema Skin: Ulcer/ Wound - wound vac in place over abd pannus IV Site: PICC, without redness Musculoskeletal: No Tenderness to Palpation of Joints or Extremities Neurological: Cranial nerves II-XII grossly intact - Assessment/Plan Antibiotics: [] Assessment/Plan: [] Active and Suspected Problems Incisional hernia (Acute) Abd panniculitis with necrotizing infection - surg cx with GPC. Wound cx with MRSE, corynebacterium. MRSE was R to clinda and levaquin. Agree with vanc. Plan on discharge on iv vanc for 10 more days for 14 day total. Weekly bmp, cbc, and vanc trough. Will follow, thank you. D/w patient case manager, rx written for labs and abx.
--- NOTE | 2018-05-14 14:01 | CON.PCM_ITS ---
Problem List (1) Necrotizing soft tissue infection Status: Acute (2) Panniculitis Status: Acute Reason for Consult: panniculitis Consulted by: Dr. Jones History of Present Illness: The patient is a 42 year old F with morbid obesity and recurrent panniculitis for several years who presented with several weeks of worsened pain, redness, swelling. Some chills. Had been at [facility] recently and d/c on iv abx. Now came to ED, taken to OR 05/[address] Hendricks. Now on iv vanc, picc in place. Feeling better but abd still sore. No n/v/d. Full ROS performed and neg except as noted above. - Medical History Past Medical History (Chronic Problems): Chronic Problems Erythema intertrigo (Chronic) abdominal wall skin crease intertrigo Abdominal panniculus, symptomatic (Chronic) Skin ulcer of abdominal wall with fat layer exposed (Chronic) Anxiety and depression (Chronic) Allergic rhinitis (Chronic) MARCE (obstructive sleep apnea) (Chronic) not on CPAP (pt refusal) Obesity, Class III, BMI 40-49.9 (morbid obesity) (Chronic) Asthma (Chronic) Super-super obese (Chronic) Prediabetes (Chronic) Hypertension (Chronic) Hypothyroid (Chronic) Allergies/Adverse Reactions: Allergies diphenhydramine HCl [From Benadryl] Allergy (Verified 05/06/18 15:13) Hives metronidazole [From Flagyl] Allergy (Verified 05/06/18 15:13) Rash venom-honey bee [bee venom (honey bee)] Allergy (Verified 05/06/18 15:13) Anaphylaxis aspirin Adverse Reaction (Verified 05/06/18 15:13) Upset Stomach codeine Adverse Reaction (Verified 05/06/18 15:13) Other ibuprofen Adverse Reaction (Verified 05/06/18 15:13) Upset Stomach Penicillins Adverse Reaction (Verified 05/06/18 15:13) Nausea Home Medications: Ambulatory Orders Medication Instructions Recorded Lisinopril/Hydrochlorothiazide 1 tablet PO DAILY 03/08/18 [Zestoretic 10/12.5 Tablet] Loratadine [Claritin] 10 mg PO DAILY 03/08/18 Montelukast Sodium [Singulair] 10 mg PO DAILY 03/08/18 Omeprazole [Prilosec] 20 mg PO DAILY 03/08/18 Sertraline HCl [Zoloft] 100 mg PO DAILY 03/08/18 Dimethicone/Da/Vit A,C,E/Kristian 1 applic TP DAILY PRN PRN 05/06/18 [Gold Mustafa Ult Diabetic Cream] Levothyroxine Sodium [Synthroid] 300 mcg PO DAILY 05/06/18 Naproxen Sodium [Aleve] 440 mg PO Q12H PRN PRN 05/06/18 Vancomycin IV 1,250 mg IV Q8H 10 Days #30 vial 05/14/18 - Social History SMOKING STATUS:: Never smoker Vital Signs Temp Pulse Resp BP Pulse Ox 98.0 F 92 20 H 119/61 99 05/14/18 09:35 05/14/18 09:35 05/14/18 09:35 05/14/18 09:35 05/14/18 10:05 Oxygen Flow Rate (L/min) 2 Oxygen Delivery Method Room Air Weight: 217.724 kg Body Mass Index (BMI) 90.6 Microbiology Past 72 Hours 05/11/18 Unknown Gram Stain - Final Incision/Surgical Site Wound Culture - Preliminary Gram positive organism Anaerobic Culture - Preliminary Checking for anaerobes, further studies to follow. 05/10/18 21:50 Gram Stain - Final Wound - Abdominal Wound Culture - Final Staphylococcus epidermidis Corynebacterium amycolatum Anaerobic Culture - Final No anaerobic bacteria isolated. - Other Studies Radiology: [] reviewed Other Studies: [] Route of nutrition/ use of supplements: [] Nutritional Intake: [] IV Site: [] Vitale Catheter: [] - Physical Exam General: Alert, Oriented x3, Cooperative, No apparent distress HEENT: Atraumatic, PERRLA, EOMI Neck: Supple, No Nodes Lungs: Clear to auscultation, Normal air movement Cardiovascular: Regular rate, Regular Rhythm Abdomen: Soft, Non Tender, Non-Distended Extremities: Edema Skin: Ulcer/ Wound - wound vac in place over abd pannus IV Site: PICC, without redness Musculoskeletal: No Tenderness to Palpation of Joints or Extremities Neurological: Cranial nerves II-XII grossly intact - Assessment/Plan Antibiotics: [] Assessment/Plan: [] Active and Suspected Problems Incisional hernia (Acute) Abd panniculitis with necrotizing infection - surg cx with GPC. Wound cx with MRSE, corynebacterium. MRSE was R to clinda and levaquin. Agree with vanc. Plan on discharge on iv vanc for 10 more days for 14 day total. Weekly bmp, cbc , and vanc trough. Will follow, thank you. D/w manager case management, rx written for labs and abx.
--- NOTE | 2018-05-14 15:08 | CASEMGMT ---
Social Work Note SW placed a call to Halina at [facility] and informed her that this worker is leaving for the day and if she gets pre-cert to call [facility] main line. SW provided [facility] main line. GEORGIE updated [employer] of this. Plan: [facility] pending pre-cert Lindsay Noguera OUTREACH PROFESSIONAL, FINANCIAL PROFESSIONAL
--- NOTE | 2018-05-14 17:13 | PN.SURG_ITS ---
Patient Problems: Active and Suspected Problems Incisional hernia (Acute) Subjective: Postop #3 Patient complains of wound pain. - Physical Exam General: Alert, Oriented x3 HEENT: PERRLA, EOMI Oral: Moist Mucosa Neck: Supple Lungs: Clear to auscultation Cardiovascular: Regular rate, Regular Rhythm Abdomen: Obese, Hernia - stable Extremities: No clubbing, No cyanosis, Edema - mild edema in lower extremities. Skin: Ulcer/ Wound - lower anterior abdominal wall wound is stable. No bleeding noted. VAC changed today without difficulty. Neurological: Cranial nerves II-XII grossly intact Psych/Mental Status: Normal Affect, Appropriate Vital Signs Temp Pulse Resp BP Pulse Ox 98.0 F 92 20 H 119/61 99 05/14/18 09:35 05/14/18 09:35 05/14/18 09:35 05/14/18 09:35 05/14/18 10:05 Oxygen Flow Rate (L/min) 2 Oxygen Delivery Method Room Air Weight: 479 lb 15.988 oz Body Mass Index (BMI) 90.6 Intake and Output for Last 24 Hours 05/12/18 05/13/18 05/14/18 23:59 23:59 23:59 Intake Total 2575 / 2575 4306 / 4306 2646 / 2646 Output Total 1100 / 1100 3525 / 3525 1750 / 1750 Balance 1475 / 1475 781 / 781 896 / 896 Microbiology Past 72 Hours 05/11/18 Unknown Gram Stain - Final Incision/Surgical Site Wound Culture - Preliminary Gram positive organism Anaerobic Culture - Preliminary Checking for anaerobes, further studies to follow. 05/10/18 21:50 Gram Stain - Final Wound - Abdominal Wound Culture - Final Staphylococcus epidermidis Corynebacterium amycolatum Anaerobic Culture - Final No anaerobic bacteria isolated. Medical Necessity - Tobacco Use Smoking Status: Never smoker Tobacco Use: Non-smoker Assessment/Plan All Active Problems Necrotizing soft tissue infection (Acute) Panniculitis (Acute) Incisional hernia (Acute) Severe sepsis (Acute) 1. Massive abdominal panniculus with nonhealing infected ulcer and panniculitis and necrotizing soft tissue infection. 2. Borderline diabetes. 3. Abdominal wall skin crease intertrigo. 4. Morbid obesity. 5. Incisional hernia. 6. s/p surgical preparation lower anterior abdominal wall massive panniculus with excisional debridement nonhealing ulcer and skin and subcutaneous tissue for necrotizing soft tissue infection and panniculectomy (777 cm2). 7. MRSE. Operative culture shows MRSE. Levaquin and Cleocin has been discontinued. Started IV Vancomycin. Infectious Diseases consulted. VAC changed today without difficulty. To be changed three times per week at 150 mmHg continuous suction. Prealbumin was 21.1. Encourage nutritional supplementation with protein to help the healing process. With the complexity of the wound with the VAC and with the need for IV antibiotics, she would be best served for a short stay at an [facility]. Patient was in agreement with that plan. Post discharge, can then followup at the [facility]. Code Visit Inpatient E&M: 75281 Subs Hosp L2 - ICD-10 - L98.492, M79.89, E65, M79.3, R73.03, L30.4, K43.2, E66.9
[2018-05-14 17:42] VITALS: BP 116/58; PULSE 95; RESP 18; TEMP 37.3; O2SAT 96
[2018-05-14 21:58] VITALS: BP 120/61; PULSE 103; RESP 16; TEMP 37.2; O2SAT 97
[2018-05-15 04:00] VITALS: BP 121/64; PULSE 100; RESP 16; TEMP 36.6; O2SAT 95
[2018-05-15] MEDS: Levothyroxine 150 MCG Tablet 300 MCG PO (06:35)
[2018-05-15] MEDS: Nystatin Powder 15gm Bottle 1 APPLIC TOPICAL ×3 (06:36→22:28)
[2018-05-15 07:30] VITALS: O2SAT 96
[2018-05-15 09:00] VITALS: BP 134/68; PULSE 98; RESP 20; TEMP 36.6; O2SAT 99
--- NOTE | 2018-05-15 09:06 | PN_ITS ---
Patient Problems: Active and Suspected Problems Incisional hernia (Acute) Subjective: Chief complaint: Follow-up after admission for massive abdominal panniculus with nonhealing infected ulcer and panniculitis. Patient seen and examined. No acute events overnight. She denied any significant complaints. Vital signs are stable, afebrile. - Physical Exam General: Alert, Oriented x3, Cooperative, No apparent distress HEENT: Atraumatic, PERRLA, EOMI, Normocephalic Oral: Moist Mucosa, No Gingival or Mucosal Lesions/ Ulcerations Neck: Supple, No JVD, Negative Carotid Bruits, Trachea Midline, Thyroid Normal Size and Texture Lungs: Clear to auscultation, No rhonchi, No wheeze, No rales, Diminished Cardiovascular: Regular rate, Regular Rhythm, Normal S1, Normal S2, No murmurs Abdomen: Bowel Sounds Present, Soft, Non Tender, Non-Distended, No Hepato- splenomegaly, Obese Extremities: No clubbing, No cyanosis, No edema Skin: No rashes, Ulcer/ Wound Lymphatic: No Cervical, Supraclavicular, or Inguinal Adenopathy Neurological: Cranial nerves II-XII grossly intact, Neuro grossly intact Psych/Mental Status: Normal Affect, Appropriate, Alert and oriented to time, place, person, mood and affect Vital Signs Temp Pulse Resp BP Pulse Ox 98 F 100 16 121/64 H 96 05/15/18 04:00 05/15/18 04:00 05/15/18 04:00 05/15/18 04:00 05/15/18 07:30 Oxygen Flow Rate (L/min) 2 Oxygen Delivery Method Nasal Cannula Weight: 479 lb 15.988 oz Body Mass Index (BMI) 90.6 Intake and Output for Last 24 Hours 05/13/18 05/14/18 05/15/18 23:59 23:59 23:59 Intake Total 4306 / 4306 2646 / 2646 400 / 400 Output Total 3525 / 3525 1750 / 1750 Balance 781 / 781 896 / 896 400 / 400 Microbiology Past 72 Hours 05/11/18 Unknown Gram Stain - Final Incision/Surgical Site Wound Culture - Final Enterococcus faecalis Gram positive marisel Staphylococcus hominis hominis Anaerobic Culture - Preliminary Checking for anaerobes, further studies to follow. 05/10/18 21:50 Gram Stain - Final Wound - Abdominal Wound Culture - Final Staphylococcus epidermidis Corynebacterium amycolatum Anaerobic Culture - Final No anaerobic bacteria isolated. Laboratory Tests Past 24 Hrs 05/15/18 08:24 Vancomycin Trough Pending Medical Necessity - Tobacco Use Smoking Status: Never smoker Tobacco Use: Non-smoker Assessment/Plan All Active Problems Necrotizing soft tissue infection (Acute) Panniculitis (Acute) Incisional hernia (Acute) Severe sepsis (Acute) This is a 42 years old female patient presented to the emergency room because of worsening abdominal wall pain, erythema and swelling with 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 #1 acute/recurrent anterior abdominal wall cellulitis/nonhealing infected ulcer and panniculitis: Status post excision of nonhealing ulcer and panniculectomy, status post wound VAC insertion, postoperative day 4. Vancomycin based on wound cultures. IV clindamycin and Levaquin discontinued. Vital signs are stable. Wound culture revealed methicillin-resistant staph epidermidis and corynebacterium. Wound culture of the surgical specimen revealed Enterococcus faecalis, staph hominis hominis and gram-positive rods. Blood culture showed no growth in 5 days. Infectious disease consulted. Plan to continue IV vancomycin for another 10 days to complete total of 14 days of treatment, awaiting insurance approval for placement to residential facility. #2 severe sepsis: Secondary to above. She has been on IV fluids and IV antibiotics. Lactic acid is back to normal. Plan as above. #3 hypertension: blood pressure stable, continue lisinopril. #4 hypothyroidism: Continue levothyroxine. #5 bronchial asthma: Clinically stable, pulse ox is maintained on 2 L. She is on albuterol as needed. #6 depression: Continue Zoloft. Continue Zoloft. #7 DVT prophylaxis: Subcu Lovenox. This note was generated with [employer] dictation software. It may contain incorrect words, spelling, and punctuation that were not noted in checking the note before signing. Code Visit Inpatient E&M: 89059 Subs Hosp L2
[2018-05-15] MEDS: Montelukast 10 MG Tablet PO (09:37)
[2018-05-15] MEDS: Lisinopril 10 MG Tablet PO (09:37)
[2018-05-15] MEDS: Loratadine 10 MG Tablet PO (09:37)
[2018-05-15] MEDS: Sertraline 100 MG Tablet PO (09:37)
[2018-05-15] MEDS: Famotidine 20 MG Tablet PO ×2 (09:37→22:28)
[2018-05-15] MEDS: Enoxaparin 40 MG/0.4 ML Syringe SC ×2 (09:38→22:37)
--- NOTE | 2018-05-15 13:23 | PHA.PHARE_ITS ---
Consult Pharmacy has been consulted to manage selected antiobiotic: Vancomycin Type of Consult: Follow-up Suspected Infection: Skin/Soft tissue Prior Doses of Antibiotics Received/Current Regimen: CURRENT REGIMEN 1250MG IV Q8H Labs: Sodium 140 mmol/L (136-145) 05/13/18 05:00 Potassium 4.5 mmol/L (3.5-5.1) 05/13/18 05:00 Chloride 105 mmol/L (98-107) 05/13/18 05:00 Carbon Dioxide 28.0 mmol/L (21.0-32.0) 05/13/18 05:00 Anion Gap 7 (5-15) 05/13/18 05:00 BUN 18 mg/dL (7-18) 05/13/18 05:00 Creatinine 0.82 mg/dL (0.55-1.02) 05/13/18 05:00 Est GFR (MDRD) Af Amer 99 mL/min (>60) 05/13/18 05:00 Est GFR (MDRD) Non-Af 82 mL/min (>60) 05/13/18 05:00 BUN/Creatinine Ratio 22.1 RATIO (10-20) H 05/13/18 05:00 Glucose 90 mg/dL (74-106) 05/13/18 05:00 Vancomycin Trough 13.0 ug/mL (5.0-15.0) 05/15/18 08:24 Microbiology: Microbiology 05/11/18 Unknown Incision/Surgical Site Gram Stain - Final 05/11/18 Unknown Incision/Surgical Site Wound Culture - Final Enterococcus faecalis Gram positive marisel Staphylococcus hominis hominis 05/11/18 Unknown Incision/Surgical Site Anaerobic Culture - Preliminary Checking for anaerobes, further studies to follow. 05/10/18 21:50 Wound - Abdominal Gram Stain - Final 05/10/18 21:50 Wound - Abdominal Wound Culture - Final Staphylococcus epidermidis Corynebacterium amycolatum 05/10/18 21:50 Wound - Abdominal Anaerobic Culture - Final No anaerobic bacteria isolated. Weight used for dosin.7 kg Estimated Creatinine Clearance: 67 ML/MIN Goal Trough: 15-20 mcg/mL Pharmacy Plan for Drug Dosing: Vancomycin dose and trough reviewed. Trough in AM 05.15.18 is 13 (goal 15-20 mcg/ ml). Renal function unchanged (Cr 0.8). Per pharmacokinetcs will increase dose to 1500mg iv q8h and get repeat vancomycin trough level before 4th dose of new regimen. Pharmacy Service will continue to monitor and adjust dosing as required. Follow-Up Labs: Trough Vancomycin - 8.18 @7963
[2018-05-15 15:17] VITALS: BP 113/67; PULSE 99; RESP 18; TEMP 36.9; O2SAT 100
[2018-05-15] MEDS: Glucerna Shake 120 ML LIQUID PO (18:04)
[2018-05-15 21:00] VITALS: BP 139/69; PULSE 103; RESP 20; TEMP 37.4; O2SAT 98
[2018-05-15] MEDS: oxyCODONE 5 MG Tablet PO (23:38)
[2018-05-16 03:00] VITALS: BP 116/64; PULSE 99; RESP 20; TEMP 36.9; O2SAT 94
[2018-05-16] MEDS: Levothyroxine 150 MCG Tablet 300 MCG PO (06:07)
[2018-05-16] MEDS: 0.9% NaCl Peripheral Flush Adult/Peds IV (06:08)
[2018-05-16] MEDS: Nystatin Powder 15gm Bottle 1 APPLIC TOPICAL ×3 (06:09→22:06)
[2018-05-16 08:10] VITALS: BP 119/67; PULSE 99; RESP 18; TEMP 36.7; O2SAT 95
--- NOTE | 2018-05-16 08:55 | PCM.PROGNOTE ---
Patient Problems: Active and Suspected Problems Incisional hernia (Acute) Subjective: Chief complaint: Follow-up after admission for massive abdominal panniculus with nonhealing infected ulcer and panniculitis. Patient seen and examined. No acute events overnight. She has no significant complaints. Vital signs are stable. - Physical Exam General: Alert, Oriented x3, Cooperative, No apparent distress HEENT: Atraumatic, PERRLA, EOMI, Normocephalic Oral: Moist Mucosa, No Gingival or Mucosal Lesions/ Ulcerations Neck: Supple, No JVD, Negative Carotid Bruits, Trachea Midline, Thyroid Normal Size and Texture Lungs: Clear to auscultation, No rhonchi, No wheeze, No rales, Diminished Cardiovascular: Regular rate, Regular Rhythm, Normal S1, Normal S2, PMI Normal Abdomen: Bowel Sounds Present, Soft, Non Tender, Non-Distended, No Hepato-splenomegaly, Obese Extremities: No clubbing, No cyanosis, No edema Skin: No rashes, No breakdown Lymphatic: No Cervical, Supraclavicular, or Inguinal Adenopathy Neurological: Cranial nerves II-XII grossly intact, Neuro grossly intact Psych/Mental Status: Normal Affect, Appropriate, Alert and oriented to time, place, person, mood and affect Vital Signs Temp Pulse Resp BP Pulse Ox 98.0 F 99 18 119/67 95 05/16/18 08:10 05/16/18 08:10 05/16/18 08:10 05/16/18 08:10 05/16/18 08:10 Oxygen Flow Rate (L/min) 2 Oxygen Delivery Method Room Air Weight: 479 lb 15.988 oz Body Mass Index (BMI) 90.6 Intake and Output for Last 24 Hours 05/14/18 05/15/18 05/16/18 23:59 23:59 23:59 Intake Total 2646 / 2646 2612 / 2612 1573 / 1573 Output Total 1750 / 1750 6 / 6 900 / 900 Balance 896 / 896 2606 / 2606 673 / 673 Microbiology Past 72 Hours 05/11/18 Unknown Gram Stain - Final Incision/Surgical Site Wound Culture - Final Enterococcus faecalis Gram positive marisel Staphylococcus hominis hominis Anaerobic Culture - Preliminary Checking for anaerobes, further studies to follow. 05/10/18 21:50 Gram Stain - Final Wound - Abdominal Wound Culture - Final Staphylococcus epidermidis Corynebacterium amycolatum Anaerobic Culture - Final No anaerobic bacteria isolated. Laboratory Tests Past 24 Hrs 05/15/18 08:24 Vancomycin Trough 13.0 Medical Necessity - Tobacco Use Smoking Status: Never smoker Tobacco Use: Non-smoker Assessment/Plan All Active Problems Necrotizing soft tissue infection (Acute) Panniculitis (Acute) Incisional hernia (Acute) Severe sepsis (Acute) This is a 42 years old female patient presented to the emergency room because of worsening abdominal wall pain, erythema and swelling with 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 #1 Polymicrobial acute/recurrent anterior abdominal wall cellulitis/nonhealing infected ulcer and panniculitis: Status post excision of nonhealing ulcer and panniculectomy, status post wound VAC insertion, postoperative day 5. She remained on IV vancomycin. Vital signs are stable. Wound culture revealed methicillin-resistant staph epidermidis and corynebacterium. Wound culture of the surgical specimen revealed Enterococcus faecalis, staph hominis hominis and gram-positive rods. Blood culture showed no growth in 5 days. Infectious disease consulted. Plan to continue IV vancomycin for total of 14 days, awaiting [facility]. #2 severe sepsis: Secondary to above. She has been on IV fluids and IV antibiotics. Lactic acid is back to normal. Plan as above. #3 hypertension: blood pressure stable, continue lisinopril. #4 hypothyroidism: Continue levothyroxine. #5 bronchial asthma: Clinically stable, pulse ox is maintained on room air. She is on albuterol as needed. #6 depression: Continue Zoloft. Continue Zoloft. #7 DVT prophylaxis: Subcu Lovenox. This note was generated with [employer] dictation software. It may contain incorrect words, spelling, and punctuation that were not noted in checking the note before signing. Code Visit Inpatient E&M: 56956 Subs Hosp L2
--- NOTE | 2018-05-16 08:58 | PN_ITS ---
Patient Problems: Active and Suspected Problems Incisional hernia (Acute) Subjective: Chief complaint: Follow-up after admission for massive abdominal panniculus with nonhealing infected ulcer and panniculitis. Patient seen and examined. No acute events overnight. She has no significant complaints. Vital signs are stable. - Physical Exam General: Alert, Oriented x3, Cooperative, No apparent distress HEENT: Atraumatic, PERRLA, EOMI, Normocephalic Oral: Moist Mucosa, No Gingival or Mucosal Lesions/ Ulcerations Neck: Supple, No JVD, Negative Carotid Bruits, Trachea Midline, Thyroid Normal Size and Texture Lungs: Clear to auscultation, No rhonchi, No wheeze, No rales, Diminished Cardiovascular: Regular rate, Regular Rhythm, Normal S1, Normal S2, PMI Normal Abdomen: Bowel Sounds Present, Soft, Non Tender, Non-Distended, No Hepato- splenomegaly, Obese Extremities: No clubbing, No cyanosis, No edema Skin: No rashes, No breakdown Lymphatic: No Cervical, Supraclavicular, or Inguinal Adenopathy Neurological: Cranial nerves II-XII grossly intact, Neuro grossly intact Psych/Mental Status: Normal Affect, Appropriate, Alert and oriented to time, place, person, mood and affect Vital Signs Temp Pulse Resp BP Pulse Ox 98.0 F 99 18 119/67 95 05/16/18 08:10 05/16/18 08:10 05/16/18 08:10 05/16/18 08:10 05/16/18 08:10 Oxygen Flow Rate (L/min) 2 Oxygen Delivery Method Room Air Weight: 479 lb 15.988 oz Body Mass Index (BMI) 90.6 Intake and Output for Last 24 Hours 05/14/18 05/15/18 05/16/18 23:59 23:59 23:59 Intake Total 2646 / 2646 2612 / 2612 1573 / 1573 Output Total 1750 / 1750 6 / 6 900 / 900 Balance 896 / 896 2606 / 2606 673 / 673 Microbiology Past 72 Hours 05/11/18 Unknown Gram Stain - Final Incision/Surgical Site Wound Culture - Final Enterococcus faecalis Gram positive marisel Staphylococcus hominis hominis Anaerobic Culture - Preliminary Checking for anaerobes, further studies to follow. 05/10/18 21:50 Gram Stain - Final Wound - Abdominal Wound Culture - Final Staphylococcus epidermidis Corynebacterium amycolatum Anaerobic Culture - Final No anaerobic bacteria isolated. Laboratory Tests Past 24 Hrs 05/15/18 08:24 Vancomycin Trough 13.0 Medical Necessity - Tobacco Use Smoking Status: Never smoker Tobacco Use: Non-smoker Assessment/Plan All Active Problems Necrotizing soft tissue infection (Acute) Panniculitis (Acute) Incisional hernia (Acute) Severe sepsis (Acute) This is a 42 years old female patient presented to the emergency room because of worsening abdominal wall pain, erythema and swelling with 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 #1 Polymicrobial acute/recurrent anterior abdominal wall cellulitis/nonhealing infected ulcer and panniculitis: Status post excision of nonhealing ulcer and panniculectomy, status post wound VAC insertion, postoperative day 5. She remained on IV vancomycin. Vital signs are stable. Wound culture revealed methicillin-resistant staph epidermidis and corynebacterium. Wound culture of the surgical specimen revealed Enterococcus faecalis, staph hominis hominis and gram-positive rods. Blood culture showed no growth in 5 days. Infectious disease consulted. Plan to continue IV vancomycin for total of 14 days, awaiting insurance approval for placement to [facility] facility. #2 severe sepsis: Secondary to above. She has been on IV fluids and IV antibiotics. Lactic acid is back to normal. Plan as above. #3 hypertension: blood pressure stable, continue lisinopril. #4 hypothyroidism: Continue levothyroxine. #5 bronchial asthma: Clinically stable, pulse ox is maintained on room air. She is on albuterol as needed. #6 depression: Continue Zoloft. Continue Zoloft. #7 DVT prophylaxis: Subcu Lovenox. This note was generated with [employer] dictation software. It may contain incorrect words, spelling, and punctuation that were not noted in checking the note before signing. Code Visit Inpatient E&M: 52597 Subs Hosp L2
[2018-05-16] MEDS: Loratadine 10 MG Tablet PO (10:15)
[2018-05-16] MEDS: Famotidine 20 MG Tablet PO ×2 (10:16→22:06)
[2018-05-16] MEDS: Montelukast 10 MG Tablet PO (10:16)
[2018-05-16] MEDS: Enoxaparin 40 MG/0.4 ML Syringe SC ×2 (10:16→22:06)
[2018-05-16] MEDS: Sertraline 100 MG Tablet PO (10:16)
[2018-05-16] MEDS: Lisinopril 10 MG Tablet PO (10:16)
[2018-05-16 15:25] VITALS: BP 118/62; PULSE 99; RESP 18; TEMP 37.2; O2SAT 99
[2018-05-16] MEDS: oxyCODONE 5 MG Tablet PO (15:25)
[2018-05-16] MEDS: Acetaminophen 325 MG Tablet 650 MG PO (18:09)
[2018-05-16 18:11] LABS: Vancomycin, Trough Level 18.8 ug/mL (5.0-15.0)
--- NOTE | 2018-05-16 18:48 | PCM.RX.CS ---
Consult Pharmacy has been consulted to manage selected antiobiotic: Vancomycin Type of Consult: Follow-up Suspected Infection: Sepsis Prior Doses of Antibiotics Received/Current Regimen: Currently on 1500mg iv q8h. Labs: Sodium 140 mmol/L (136-145) 05/13/18 05:00 Potassium 4.5 mmol/L (3.5-5.1) 05/13/18 05:00 Chloride 105 mmol/L (98-107) 05/13/18 05:00 Carbon Dioxide 28.0 mmol/L (21.0-32.0) 05/13/18 05:00 Anion Gap 7 (5-15) 05/13/18 05:00 BUN 18 mg/dL (7-18) 05/13/18 05:00 Creatinine 0.82 mg/dL (0.55-1.02) 05/13/18 05:00 Est GFR (MDRD) Af Amer 99 mL/min (>60) 05/13/18 05:00 Est GFR (MDRD) Non-Af 82 mL/min (>60) 05/13/18 05:00 BUN/Creatinine Ratio 22.1 RATIO (10-20) H 05/13/18 05:00 Glucose 90 mg/dL (74-106) 05/13/18 05:00 Vancomycin Trough 18.8 ug/mL (5.0-15.0) H 05/16/18 17:30 Microbiology: Microbiology 05/11/18 Unknown Incision/Surgical Site Gram Stain - Final 05/11/18 Unknown Incision/Surgical Site Wound Culture - Final Enterococcus faecalis Gram positive marisel Staphylococcus hominis hominis 05/11/18 Unknown Incision/Surgical Site Anaerobic Culture - Preliminary Checking for anaerobes, further studies to follow. 05/10/18 21:50 Wound - Abdominal Gram Stain - Final 05/10/18 21:50 Wound - Abdominal Wound Culture - Final Staphylococcus epidermidis Corynebacterium amycolatum 05/10/18 21:50 Wound - Abdominal Anaerobic Culture - Final No anaerobic bacteria isolated. Weight used for dosin.7 kg Estimated Creatinine Clearance: ~67 ml/min Goal Trough: 15-20 mcg/mL Pharmacy Plan for Drug Dosing: Vancomycin trough 05.16.18 @1730 was 18.8 (goal 15-20 mcg/ml). Renal function unchanged. Will continue with same dose and get repeat vancomycin trough before 3rd dose. Pharmacy Service will continue to monitor and adjust dosing as required.
[2018-05-16 21:56] VITALS: BP 109/62; PULSE 99; RESP 18; TEMP 36.7; O2SAT 95
[2018-05-17 04:20] VITALS: BP 112/58; PULSE 94; RESP 18; TEMP 36.6; O2SAT 96
[2018-05-17] MEDS: Levothyroxine 150 MCG Tablet 300 MCG PO (06:15)
[2018-05-17] MEDS: Nystatin Powder 15gm Bottle 1 APPLIC TOPICAL ×3 (06:16→21:17)
[2018-05-17 07:39] VITALS: O2SAT 91
[2018-05-17 09:00] VITALS: BP 106/65; PULSE 107; RESP 18; TEMP 36.6; O2SAT 98
[2018-05-17] MEDS: Glucerna Shake 120 ML LIQUID PO (09:01)
[2018-05-17] MEDS: Lisinopril 10 MG Tablet PO (09:02)
[2018-05-17] MEDS: Loratadine 10 MG Tablet PO (09:02)
[2018-05-17] MEDS: Enoxaparin 40 MG/0.4 ML Syringe SC ×2 (09:02→21:17)
[2018-05-17] MEDS: Sertraline 100 MG Tablet PO (09:02)
[2018-05-17] MEDS: Montelukast 10 MG Tablet PO (09:02)
[2018-05-17] MEDS: Famotidine 20 MG Tablet PO ×2 (09:02→21:17)
--- NOTE | 2018-05-17 09:55 | CASEMGMT ---
Social Work Note SW faxed updated clinicals to [facility]. Plan: [facility] pending pre-cert Lindsay Noguera PRODUCTION CREW SUPERVISOR, MATERIAL CONTROL CLERK
[2018-05-17 10:20] LABS: Vancomycin, Trough Level 19.5 ug/mL (5.0-15.0)
--- NOTE | 2018-05-17 11:20 | PCM.TXEXTCAR ---
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 kerlix - Suggestions for Active Care Change Position every (hours): 3 Hours to sit in a chair: 3 Times a day to sit in chair: 3 - Therapies Weight Bearing: Weight bearing as tolerated Physical Therapy: Eval and Treat Occupational Therapy: Eval and Treat Speech Therapy: Eval and Treat - Allergies/Procedures Done in Hospital Allergies/Adverse Reactions: Allergies diphenhydramine HCl [From Benadryl] Allergy (Verified 05/06/18 15:13) Hives metronidazole [From Flagyl] Allergy (Verified 05/06/18 15:13) Rash venom-honey bee [bee venom (honey bee)] Allergy (Verified 05/06/18 15:13) Anaphylaxis aspirin Adverse Reaction (Verified 05/06/18 15:13) Upset Stomach codeine Adverse Reaction (Verified 05/06/18 15:13) Other ibuprofen Adverse Reaction (Verified 05/06/18 15:13) Upset Stomach Penicillins Adverse Reaction (Verified 05/06/18 15:13) Nausea - Type of Care/Length of Stay Estimated LOS: Convalescent Care Less Than 30 days Type of Care Needed: Skilled Rehab Potential: Good Prognosis: Good - Additional Orders/Day of Discharge H&P will serve as current which was dated: 05/06/18 Day of Discharge: 05/17/18 - Dietary and Speech Recommendations Dietitian Recommendations/Changes: Please check current wt. Rec diet change to 2000 calorie diet. Will d/c ONS medpass - pt receiving on meal trays. Rec Royer bid to help w/ wound healing (order from pharmacy). - Follow Up Care Primary Care Physician: Franco Bardales DO [Primary Care Provider] - Please follow up with your Primary Care Physician in: 1 week. Please Follow Up With: Yrn Hendricks MD When: in 1-2 weeks at the wound care center. Please Follow Up With: Moisés Soriano MD When: call his office.
--- NOTE | 2018-05-17 12:00 | PCM.PROGNOTE ---
Patient Problems: Active and Suspected Problems Incisional hernia (Acute) Subjective: Chief complaint: Follow-up after admission for massive abdominal panniculus with nonhealing infected ulcer and panniculitis. Patient seen and examined. No acute events overnight. She remains asymptomatic, no complaints. Her vital signs are stable. We are still awaiting insurance approval for placement to long-term facility. - Physical Exam General: Alert, Oriented x3, Cooperative, No apparent distress HEENT: Atraumatic, PERRLA, EOMI, Normocephalic Oral: Moist Mucosa, No Gingival or Mucosal Lesions/ Ulcerations Neck: Supple, No JVD, Negative Carotid Bruits, Trachea Midline, Thyroid Normal Size and Texture Lungs: Clear to auscultation, No rhonchi, No wheeze, No rales, Diminished Cardiovascular: Regular rate, Regular Rhythm, Normal S1, Normal S2, PMI Normal Abdomen: Bowel Sounds Present, Soft, Non Tender, Non-Distended, No Hepato-splenomegaly, Obese Extremities: No clubbing, No cyanosis, No edema Skin: No rashes, Ulcer/ Wound Lymphatic: No Cervical, Supraclavicular, or Inguinal Adenopathy Neurological: Cranial nerves II-XII grossly intact, Motor Exam 5/5 strength throughout Psych/Mental Status: Normal Affect, Appropriate, Alert and oriented to time, place, person, mood and affect Vital Signs Temp Pulse Resp BP Pulse Ox 97.8 F 107 H 18 106/65 98 05/17/18 09:00 05/17/18 09:00 05/17/18 09:00 05/17/18 09:00 05/17/18 09:00 Oxygen Flow Rate (L/min) 2 Oxygen Delivery Method Room Air Weight: 479 lb 15.988 oz Body Mass Index (BMI) 90.6 Intake and Output for Last 24 Hours 05/15/18 05/16/18 05/17/18 23:59 23:59 23:59 Intake Total 2612 / 2612 3347 / 3347 3173 / 3173 Output Total / 900 / 900 1300 / 1300 Balance 2606 / 2606 2447 / 2447 1873 / 1873 Microbiology Past 72 Hours 05/11/18 Unknown Gram Stain - Final Incision/Surgical Site Wound Culture - Final Enterococcus faecalis Gram positive marisel Staphylococcus hominis hominis Anaerobic Culture - Preliminary Checking for anaerobes, further studies to follow. 05/10/18 21:50 Gram Stain - Final Wound - Abdominal Wound Culture - Final Staphylococcus epidermidis Corynebacterium amycolatum Anaerobic Culture - Final No anaerobic bacteria isolated. Laboratory Tests Past 24 Hrs 05/16/18 05/17/18 17:30 09:30 Vancomycin Trough 18.8 H 19.5 H Medical Necessity - Tobacco Use Smoking Status: Never smoker Tobacco Use: Non-smoker Assessment/Plan All Active Problems Necrotizing soft tissue infection (Acute) Panniculitis (Acute) Incisional hernia (Acute) Severe sepsis (Acute) This is a 42 years old female patient presented to the emergency room because of worsening abdominal wall pain, erythema and swelling with 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 #1 Polymicrobial acute/recurrent anterior abdominal wall cellulitis/nonhealing infected ulcer and panniculitis: Status post excision of nonhealing ulcer and panniculectomy, status post wound VAC insertion, postoperative day 6. She remained on IV vancomycin. Vital signs are stable. Wound culture revealed methicillin-resistant staph epidermidis and corynebacterium. Wound culture of the surgical specimen revealed Enterococcus faecalis, staph hominis hominis and gram-positive rods. Blood culture showed no growth in 5 days. Infectious disease consulted. Plan to continue IV vancomycin for total of 14 days, awaiting insurance approval for placement to long-term facility. #2 severe sepsis: Secondary to above. She has been on IV fluids and IV antibiotics. Lactic acid is back to normal. Plan as above. #3 hypertension: blood pressure stable, continue lisinopril. #4 hypothyroidism: Continue levothyroxine. #5 bronchial asthma: Clinically stable, pulse ox is maintained on room air. She is on albuterol as needed. #6 depression: Continue Zoloft. Continue Zoloft. #7 DVT prophylaxis: Subcu Lovenox. This note was generated with [employer] software. It may contain incorrect words, spelling, and punctuation that were not noted in checking the note before signing.
--- NOTE | 2018-05-17 12:09 | CASEMGMT ---
Social Work Note SW placed a call to [facility] and pre-cert is still pending. Plan: [place] pending pre-cert Lindsay Noguera EMPLOYMENT ATTORNEY, PHOTOGRAPH EDITOR
--- NOTE | 2018-05-17 13:46 | PCM.PN.ID ---
Patient Problems: Active and Suspected Problems Incisional hernia (Acute) Subjective: Feeling better, abd less sore, no fever - Physical Exam General: Alert, Cooperative, No apparent distress Lungs: Clear to auscultation, Normal air movement Cardiovascular: Regular rate, Regular Rhythm Abdomen: Soft, Obese, - - wound vac in place, improved redness Vital Signs Temp Pulse Resp BP Pulse Ox 97.8 F 107 H 18 106/65 98 05/17/18 09:00 05/17/18 09:00 05/17/18 09:00 05/17/18 09:00 05/17/18 09:00 Oxygen Flow Rate (L/min) 2 Oxygen Delivery Method Room Air Weight: 217.724 kg Body Mass Index (BMI) 90.6 Intake and Output for Last 24 Hours 05/15/18 05/16/18 05/17/18 23:59 23:59 23:59 Intake Total 2612 / 2612 3347 / 3347 3173 / 3173 Output Total 6 / 6 900 / 900 1300 / 1300 Balance 2606 / 2606 2447 / 2447 1873 / 1873 Microbiology Past 72 Hours 05/11/18 Unknown Gram Stain - Final Incision/Surgical Site Wound Culture - Final Enterococcus faecalis Gram positive marisel Staphylococcus hominis hominis Anaerobic Culture - Preliminary Checking for anaerobes, further studies to follow. Laboratory Tests Past 24 Hrs 05/16/18 05/17/18 17:30 09:30 Vancomycin Trough 18.8 H 19.5 H Medical Necessity - Tobacco Use Smoking Status: Never smoker Tobacco Use: Non-smoker Route of nutrition/ use of supplements: [] Nutritional Intake: [] IV Site: [] Vitale Catheter: [] - Assessment/Plan Antibiotics: [] Assessment/Plan: [] Active and Suspected Problems Incisional hernia (Acute) Abd panniculitis with necrotizing infection - surg cx with efaecalis and staph hominis. Wound cx with MRSE, corynebacterium. MRSE was R to clinda and levaquin. Improving with vanc. Plan on discharge on iv vanc for 8 more days for 14 day total. Weekly bmp, cbc, and vanc trough. Will follow, D/w case finisher, rx updated
--- NOTE | 2018-05-17 14:33 | PCM.DC.SUM ---
Discharge Date and Diagnosis - Problem List Patient Problems: Active and Suspected Problems Incisional hernia (Acute) Date of Admission: 05/06/18 Date of Discharge: 05/17/18 - Primary Discharge Diagnosis Active and Suspected Problems Incisional hernia (Acute) - Secondary Discharge Diagnosis Chronic Problems Erythema intertrigo (Chronic) abdominal wall skin crease intertrigo Abdominal panniculus, symptomatic (Chronic) Skin ulcer of abdominal wall with fat layer exposed (Chronic) Anxiety and depression (Chronic) Allergic rhinitis (Chronic) MARCE (obstructive sleep apnea) (Chronic) not on CPAP (pt refusal) Obesity, Class III, BMI 40-49.9 (morbid obesity) (Chronic) Asthma (Chronic) Super-super obese (Chronic) Prediabetes (Chronic) Hypertension (Chronic) Hypothyroid (Chronic) Hospital Course and Treatment Imaging Results: Clinical Impression(s) from Imaging Studies Chest X-Ray 05/06/18 15:45 IMPRESSION: Elevated hemidiaphragm on the right. Nonspecific. Otherwise no acute cardiopulmonary process is evident. Electronically Signed: Karthik Smart at 16:27 EDT Tel , Service support , Abdomen/Pelvis CT 05/08/18 13:08 IMPRESSION: There is a lower midline ventral hernia containing nonobstructed small bowel. Small bowel extends into the patient's pannus. Electronically Signed: Bry Yoon MD at 20:00 EDT , Service support , Operations: None Summary of Care Provided: The patient is a 42 year old F [] Home Medications: Medications to take at Discharge Lisinopril/Hydrochlorothiazide [Zestoretic 10/12.5 Tablet] 1 tablet PO DAILY 03/08/18 Loratadine [Claritin] 10 mg PO DAILY 03/08/18 Montelukast Sodium [Singulair] 10 mg PO DAILY 03/08/18 Omeprazole [Prilosec] 20 mg PO DAILY 03/08/18 Sertraline HCl [Zoloft] 100 mg PO DAILY 03/08/18 Dimethicone/Da/Vit A,C,E/Kristian [Gold Mustafa Ult Diabetic Cream] 1 applic TP DAILY PRN PRN 05/06/18 Levothyroxine Sodium [Synthroid] 300 mcg PO DAILY 05/06/18 Naproxen Sodium [Aleve] 440 mg PO Q12H PRN PRN 05/06/18 Vancomycin IV 1,500 mg IV Q12H #16 vial 05/17/18 Following Prescrptions Were Given to Patient: Vancomycin IV 1,500 mg IV Q12H #16 vial Primary Care Physician: Franco Bardales DO [Primary Care Provider] - Please follow up with your Primary Care Physician in: 1 week. Please Follow Up With: Yrn Hendricks MD When: in 1-2 weeks at the wound care center. Please Follow Up With: Moisés Soriano MD When: call his office. Medical Necessity - Tobacco Use Smoking Status: Never smoker Tobacco Use: Non-smoker
[2018-05-17 15:22] VITALS: BP 110/63; PULSE 98; RESP 18; TEMP 36.6; O2SAT 96
--- NOTE | 2018-05-17 16:32 | CASEMGMT ---
Social Work Note SW received call from Judi at [place] stating that they have been in contact with [facility] and [facility] has told them that they can take up to 10 days to approve or deny pre-cert. Judi states that she will call this worker as soon as they hear from [facility]. Plan: [place] pending pre-cert Lindsay Noguera ACCOUNTANT BOOKKEEPER, TACK CUTTER
[2018-05-17] MEDS: oxyCODONE 5 MG Tablet PO ×2 (16:50→21:32)
[2018-05-17 21:00] VITALS: BP 112/58; PULSE 103; RESP 18; TEMP 37.4; O2SAT 97
--- NOTE | 2018-05-17 23:30 | PCM.PN.SRG ---
Patient Problems: Active and Suspected Problems Incisional hernia (Acute) Subjective: Postop #6 Patient is resting comfortably. VAC changed today and was tolerated reasonably well. - Physical Exam General: Alert, Oriented x3 HEENT: PERRLA, EOMI Neck: Supple Lungs: Clear to auscultation Cardiovascular: Regular rate, Regular Rhythm Abdomen: Obese, Hernia - stable Extremities: No clubbing, No cyanosis, Edema - mid edema in lower extremities. Skin: Ulcer/ Wound - lower anterior abdominal wall wound is stable. No bleeding noted. VAC changed today without diffculty. Neurological: Cranial nerves II-XII grossly intact Psych/Mental Status: Normal Affect, Appropriate Vital Signs Temp Pulse Resp BP Pulse Ox 99.3 F H 103 H 18 112/58 L 97 05/17/18 21:00 05/17/18 21:00 05/17/18 21:00 05/17/18 21:00 05/17/18 21:00 Oxygen Flow Rate (L/min) 2 Oxygen Delivery Method Room Air Weight: 479 lb 15.988 oz Body Mass Index (BMI) 90.6 Intake and Output for Last 24 Hours 05/15/18 05/16/18 05/17/18 23:59 23:59 23:59 Intake Total 2612 / 2612 3347 / 3347 3173 / 3173 Output Total 900 / 900 1300 / 1300 Balance 2606 / 2606 2447 / 2447 1873 / 1873 Microbiology Past 72 Hours 05/11/18 Unknown Gram Stain - Final Incision/Surgical Site Wound Culture - Final Enterococcus faecalis Gram positive marisel Staphylococcus hominis hominis Anaerobic Culture - Preliminary Checking for anaerobes, further studies to follow. Laboratory Tests Past 24 Hrs 05/17/18 09:30 Vancomycin Trough 19.5 H Medical Necessity - Tobacco Use Smoking Status: Never smoker Tobacco Use: Non-smoker Assessment/Plan All Active Problems Panniculitis (Acute) Necrotizing soft tissue infection (Acute) Panniculitis (Acute) Incisional hernia (Acute) Severe sepsis (Acute) 1. Massive abdominal panniculus with nonhealing infected ulcer and panniculitis and necrotizing soft tissue infection. 2. Borderline diabetes. 3. Abdominal wall skin crease intertrigo. 4. Morbid obesity. 5. Incisional hernia. 6. s/p surgical preparation lower anterior abdominal wall massive panniculus with excisional debridement nonhealing ulcer and skin and subcutaneous tissue for necrotizing soft tissue infection and panniculectomy (777 cm2). 7. MRSE. Operative culture shows Enterococcus faecalis, and Staphylococcus hominis hominis, and Gram positive marisel. Continue Vancomycin. Anaerobes are pending. VAC changed today without difficulty. To be changed three times per week at 150 mmHg continuous suction. Prealbumin was 21.1. Encourage nutritional supplementation with protein to help the healing process. With the complexity of the wound with the VAC and with the need for IV antibiotics, she would be best served for [facility] Awaiting approval from the insurance. Patient was in agreement with that plan. Post discharge, can then followup at the Wound Center. Code Visit Inpatient E&M: 97892 Subs Hosp L2 - ICD-10 - L98.492, M79.89, E65, M79.3, R73.03, L30.4, K43.2, E66.9
[2018-05-18] MEDS: oxyCODONE 5 MG Tablet PO (02:47)
[2018-05-18 02:56] VITALS: BP 117/64; PULSE 94; RESP 20; TEMP 36.8; O2SAT 98
[2018-05-18] MEDS: Levothyroxine 150 MCG Tablet 300 MCG PO (06:18)
[2018-05-18] MEDS: Nystatin Powder 15gm Bottle 1 APPLIC TOPICAL ×3 (06:18→21:21)
[2018-05-18 07:50] VITALS: BP 110/57; PULSE 88; RESP 18; TEMP 37.1; O2SAT 97
--- NOTE | 2018-05-18 07:50 | PCM.RX.CS ---
Consult Pharmacy has been consulted to manage selected antiobiotic: Vancomycin Type of Consult: Follow-up Suspected Infection: Skin/Soft tissue Prior Doses of Antibiotics Received/Current Regimen: Medications Discontinued Medications Vancomycin HCl 1,500 mg/ (Sodium Chloride) 530 mls @ 250 mls/hr IV Q8H GHISLAINE Last Admin: 05/17/18 09:43 Dose: 250 mls/hr Labs: Sodium 140 mmol/L (136-145) 05/13/18 05:00 Potassium 4.5 mmol/L (3.5-5.1) 05/13/18 05:00 Chloride 105 mmol/L (98-107) 05/13/18 05:00 Carbon Dioxide 28.0 mmol/L (21.0-32.0) 05/13/18 05:00 Anion Gap 7 (5-15) 05/13/18 05:00 BUN 18 mg/dL (7-18) 05/13/18 05:00 Creatinine 0.82 mg/dL (0.55-1.02) 05/13/18 05:00 Est GFR (MDRD) Af Amer 99 mL/min (>60) 05/13/18 05:00 Est GFR (MDRD) Non-Af 82 mL/min (>60) 05/13/18 05:00 BUN/Creatinine Ratio 22.1 RATIO (10-20) H 05/13/18 05:00 Glucose 90 mg/dL (74-106) 05/13/18 05:00 Vancomycin Trough 19.5 ug/mL (5.0-15.0) H 05/17/18 09:30 Microbiology: Microbiology 05/11/18 Unknown Incision/Surgical Site Gram Stain - Final 05/11/18 Unknown Incision/Surgical Site Wound Culture - Final Enterococcus faecalis Gram positive marisel Staphylococcus hominis hominis 05/11/18 Unknown Incision/Surgical Site Anaerobic Culture - Preliminary Checking for anaerobes, further studies to follow. 05/10/18 21:50 Wound - Abdominal Gram Stain - Final 05/10/18 21:50 Wound - Abdominal Wound Culture - Final Staphylococcus epidermidis Corynebacterium amycolatum 05/10/18 21:50 Wound - Abdominal Anaerobic Culture - Final No anaerobic bacteria isolated. Weight used for dosin kg Goal Trough: 10-15 mcg/mL Pharmacy Plan for Drug Dosing: Vancomycin trough within goal range, however, per Dr Soriano will decrease goal to 10-15 mcg/mL. Recommend to hold until Thursday, re-start 1500mg IV q12h. No trough for now, will have weekly at home. Pharmacy Service will continue to monitor and adjust dosing as required.
[2018-05-18 07:54] VITALS: PULSE 60
[2018-05-18] MEDS: 0.9% NaCl Peripheral Flush Adult/Peds IV ×5 (08:04→21:24)
[2018-05-18] MEDS: Montelukast 10 MG Tablet PO (09:29)
[2018-05-18] MEDS: Famotidine 20 MG Tablet PO ×2 (09:29→21:28)
[2018-05-18] MEDS: Enoxaparin 40 MG/0.4 ML Syringe SC ×2 (09:29→21:24)
[2018-05-18] MEDS: Loratadine 10 MG Tablet PO (09:30)
[2018-05-18] MEDS: Sertraline 100 MG Tablet PO (09:30)
[2018-05-18] MEDS: Lisinopril 10 MG Tablet PO (09:30)
--- NOTE | 2018-05-18 09:52 | PCM.PROGNOTE ---
Patient Problems: Active and Suspected Problems Incisional hernia (Acute) Subjective: Chief complaint: Follow-up after admission for massive abdominal panniculus with nonhealing infected ulcer and panniculitis. Patient seen and examined. No acute events overnight. She denied any significant complaints. Her vital signs are stable, afebrile. - Physical Exam General: Alert, Oriented x3, Cooperative, No apparent distress HEENT: Atraumatic, PERRLA, EOMI, Normocephalic Oral: Moist Mucosa, No Gingival or Mucosal Lesions/ Ulcerations Neck: Supple, No JVD, Negative Carotid Bruits, Trachea Midline, Thyroid Normal Size and Texture Lungs: Clear to auscultation, No rhonchi, No wheeze, No rales, Diminished Cardiovascular: Regular rate, Regular Rhythm, Normal S1, Normal S2, PMI Normal Abdomen: Bowel Sounds Present, Soft, Non Tender, Non-Distended, No Hepato-splenomegaly, Obese Extremities: No clubbing, No cyanosis, No edema Skin: No rashes, Ulcer/ Wound Lymphatic: No Cervical, Supraclavicular, or Inguinal Adenopathy Neurological: Cranial nerves II-XII grossly intact, Neuro grossly intact Psych/Mental Status: Normal Affect, Appropriate, Alert and oriented to time, place, person, mood and affect Vital Signs Temp Pulse Resp BP Pulse Ox 98.7 F 60 18 110/57 L 97 05/18/18 07:50 05/18/18 07:54 05/18/18 07:50 05/18/18 07:50 05/18/18 07:50 Oxygen Flow Rate (L/min) 2 Oxygen Delivery Method Room Air Weight: 479 lb 15.988 oz Body Mass Index (BMI) 90.6 Intake and Output for Last 24 Hours 05/16/18 05/17/18 05/18/18 23:59 23:59 23:59 Intake Total 3347 / 3347 3173 / 3173 1470 / 1470 Output Total 900 / 900 1300 / 1300 950 / 950 Balance 2447 / 2447 1873 / 1873 520 / 520 Microbiology Past 72 Hours 05/11/18 Unknown Gram Stain - Final Incision/Surgical Site Wound Culture - Final Enterococcus faecalis Gram positive marisel Staphylococcus hominis hominis Anaerobic Culture - Final Prevotella melaninogenica Anaerococcus prevotii Laboratory Tests Past 24 Hrs 05/17/18 09:30 Vancomycin Trough 19.5 H Medical Necessity - Tobacco Use Smoking Status: Never smoker Tobacco Use: Non-smoker Assessment/Plan All Active Problems Necrotizing soft tissue infection (Acute) Panniculitis (Acute) Incisional hernia (Acute) Severe sepsis (Acute) This is a 42 years old female patient presented to the emergency room because of worsening abdominal wall pain, erythema and swelling with 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 #1 Polymicrobial acute/recurrent anterior abdominal wall cellulitis/nonhealing infected ulcer and panniculitis: Status post excision of nonhealing ulcer and panniculectomy, status post wound VAC insertion, postoperative day 7. She remained on IV vancomycin. Vital signs are stable. Wound culture revealed methicillin-resistant staph epidermidis and corynebacterium. Wound culture of the surgical specimen revealed Enterococcus faecalis, staph hominis hominis and gram-positive rods. Blood culture showed no growth in 5 days. Infectious disease consulted. Plan to continue IV vancomycin for total of 14 days, awaiting insurance approval for placement to longterm facility. #2 severe sepsis: Secondary to above. She has been on IV fluids and IV antibiotics. Lactic acid is back to normal. Plan as above. #3 hypertension: blood pressure stable, continue lisinopril. #4 hypothyroidism: Continue levothyroxine. #5 bronchial asthma: Clinically stable, pulse ox is maintained on room air. She is on albuterol as needed. #6 depression: Continue Zoloft. Continue Zoloft. #7 DVT prophylaxis: Subcu Lovenox. This note was generated with [employer] dictation software. It may contain incorrect words, spelling, and punctuation that were not noted in checking the note before signing. Code Visit Inpatient E&M: 58343 Subs Hosp L2
--- NOTE | 2018-05-18 11:48 | CASEMGMT ---
Social Work Note SW faxed updated clinicals to [facility]. Plan: [facility] pending pre-cert Lindsay Noguera HOT DOG VENDOR, ARMED SECURITY OFFICER
[2018-05-18 13:46] VITALS: BP 120/71; PULSE 96; RESP 16; TEMP 37.3; O2SAT 93
[2018-05-18 20:25] VITALS: BP 132/55; PULSE 99; RESP 18; TEMP 37.7; O2SAT 97
[2018-05-18 22:30] VITALS: PULSE 99; RESP 18; O2SAT 97
[2018-05-19] MEDS: oxyCODONE 5 MG Tablet PO ×2 (00:03→15:39)
[2018-05-19 03:00] VITALS: BP 107/47; PULSE 87; RESP 18; TEMP 36.9; O2SAT 100
[2018-05-19 03:10] VITALS: PULSE 87
[2018-05-19] MEDS: Levothyroxine 150 MCG Tablet 300 MCG PO (06:12)
[2018-05-19] MEDS: Clindamycin HCl 150 MG Capsule 300 MG PO ×3 (06:12→22:22)
[2018-05-19] MEDS: Nystatin Powder 15gm Bottle 1 APPLIC TOPICAL ×3 (06:13→22:22)
[2018-05-19] MEDS: Ondansetron 4 MG/2 ML Vial IV (06:56)
[2018-05-19] MEDS: 0.9% NaCl Peripheral Flush Adult/Peds IV ×5 (06:56→20:13)
--- NOTE | 2018-05-19 08:22 | PCM.PN.HOSP ---
Patient Problems: Active and Suspected Problems Incisional hernia (Acute) Subjective: Patient with no acute events overnight per self and per nursing report. Patient states pain controlled on oral regimen. Patient tolerating VAC placement and changes with plan to change today if detention facility transition not yet authorized per insurance. Patient states she is tolerating therapies and moving with greater ease than initial presentation. Patient denies fevers, chills, nausea, emesis, abdominal pain, chest pain or dyspnea. Objective: Physical Examination: General: awake, alert, oriented x 3 and cooperative, seated upright in the bed in no apparent distress. Skin: normal color, turgor, no icterus, cyanosis except for markedly improved abdominal erythema, status post operative intervention with VAC in place with no christina-incisional erythema noted, VAC output serosanguineous in appearance, decreased edema to this region, less tender to palpation, bilateral lower extremities with chronic venous stasis skin changes with no obvious cellulitic findings. HEENT: AT/NC, EOMI, PERRLA, improved MMM. Lungs: Diminished BS BL bases, distant, mild effort, no rales, ronchi or wheezing. Heart: Regular rate and regular rhythm; no gallop, rub audible. Abdomen: soft, morbidly obese, notable pannus, s/p OR as noted, see skin, VAC in place, expected mild TTP but notable improved since initial presentation, ND but difficult assessment given habitus, distant BS. Extremities: no cyanosis, clubbing, see skin. Neurological: patient awake, alert, oriented x 3; cognitive function intact; pupils equally reactive to light and accomodation; cranial nerves II-XII grossly normal, moving all 4 extremities, no focal deficits, strength improved, moderately to severely globally decreased secondary to habitus and acute presentation. Psychiatric: affect appears normal, no acute evidence of depressive or anxiety feelings. Vitals/I&O's: Vital Signs Temp Pulse Resp BP Pulse Ox 98.5 F 87 18 107/47 L 100 05/19/18 03:00 05/19/18 03:10 05/19/18 03:00 05/19/18 03:00 05/19/18 03:00 Oxygen Flow Rate (L/min) 2 Oxygen Delivery Method Room Air Weight: 479 lb 15.988 oz Body Mass Index (BMI) 90.6 Intake and Output for Last 24 Hours 05/17/18 05/18/18 05/19/18 23:59 23:59 23:59 Intake Total 3173 / 3173 2172 / 2172 1824 / 1824 Output Total 1300 / 1300 950 / 950 900 / 900 Balance 1873 / 1873 1222 / 1222 924 / 924 Microbiology Past 72 Hours 05/11/18 Unknown Incision/Surgical Site Gram Stain - Final 05/11/18 Unknown Incision/Surgical Site Wound Culture - Final Enterococcus faecalis Gram positive marisel Staphylococcus hominis hominis 05/11/18 Unknown Incision/Surgical Site Anaerobic Culture - Final Prevotella melaninogenica Anaerococcus prevotii Current Medications Acetaminophen (Tylenol) 650 mg PO Q6H PRN PRN PRN Reason: Mild Pain (scale 0-3)/T>100.7 Last Admin: 05/16/18 18:09 Dose: 650 mg Al Hydroxide/Mg Hydroxide (Mylanta Ii) 30 ml PO Q6H PRN PRN PRN Reason: Gastric burning Albuterol Sulfate (Ventolin Aerosols) 2.5 mg INHALATION Q2H PRN PRN PRN Reason: dyspnea, wheezing Clindamycin HCl (Cleocin) 300 mg PO TID [facility] Last Admin: 05/19/18 06:12 Dose: 300 mg Enoxaparin Sodium (Lovenox) 40 mg SC BID [facility] Last Admin: 05/18/18 21:24 Dose: 40 mg Famotidine (Pepcid) 20 mg PO BID [facility] Last Admin: 05/18/18 21:28 Dose: 20 mg Sodium Chloride () 250 mls @ 15 mls/hr IV .[id number] PRN PRN Reason: SALINE FLUSH Vancomycin HCl 1,500 mg/ (Sodium Chloride) 530 mls @ 250 mls/hr IV Q12H [facility] Last Admin: 05/18/18 20:27 Dose: 250 mls/hr Levothyroxine Sodium (Synthroid) 300 mcg PO DAILY@0600 [facility] Last Admin: 05/19/18 06:12 Dose: 300 mcg Lisinopril (Zestril) 10 mg PO DAILY [facility] Last Admin: 05/18/18 09:30 Dose: 10 mg Loratadine (Claritin) 10 mg PO DAILY [facility] Last Admin: 05/18/18 09:30 Dose: 10 mg Magnesium Hydroxide (Milk Of Magnesia) 30 ml PO DAILY PRN PRN PRN Reason: Constipation Montelukast Sodium (Singulair) 10 mg PO DAILY [facility] Last Admin: 05/18/18 09:29 Dose: 10 mg Morphine Sulfate () 2 - 4 mg IV Q3H PRN PRN PRN Reason: Severe Pain (pain scale 6-10) Morphine Sulfate () 1 - 2 mg IV Q4H PRN PRN PRN Reason: Moderate Pain (pain scale 4-5) Morphine Sulfate () 2 - 4 mg IV Q3H PRN PRN PRN Reason: Severe Pain (pain scale 6-10) Nystatin (Mycostatin Powder) 1 applic TOPICAL TID [facility] PRN Reason: Protocol Last Admin: 05/19/18 06:13 Dose: 1 applicatio Ondansetron HCl (Zofran) 4 mg IV Q8H PRN PRN PRN Reason: NAUSEA Last Admin: 05/19/18 06:56 Dose: 4 mg Oxycodone HCl (Oxyir) 5 mg PO Q4H PRN PRN PRN Reason: Moderate Pain (pain scale 4-5) Last Admin: 05/19/18 00:03 Dose: 5 mg Promethazine HCl (Phenergan) 12.5 mg IV Q6H PRN PRN PRN Reason: NAUSEA/VOMITING Sertraline HCl (Zoloft) 100 mg PO DAILY [facility] Last Admin: 05/18/18 09:30 Dose: 100 mg Sodium Chloride () 5 - 30 ml IV UD PRN PRN Reason: SALINE FLUSH Last Admin: 05/19/18 06:56 Dose: 20 ml Medical Necessity - Tobacco Use Smoking Status: Never smoker Tobacco Use: Non-smoker Assessment/Plan All Active Problems Necrotizing soft tissue infection (Acute) Panniculitis (Acute) Incisional hernia (Acute) Severe sepsis (Acute) The patient is a 42 y/o F w/ PMHx: Morbid Obesity, Asthma, MARCE refusing to wear CPAP, Pre-Diabetes mellitus mellitus, HTN, GERD, Anxiety and Depression, Allergic Rhinitis, Hypothyroidism who presents to the [facility] ED on 05/06/18 with history of prolonged difficulties w/ abdominal wall/pannicular cellulitis most recently treated inpatient ~ 2 months prior at [facility] with improvement; however, worsened again recently w/ PCP directed abx attempt outpatient but not resolving with no associated fevers or chills. (1) Severe Sepsis secondary to Polymicrobial Acute Panniculitis w/ Necrotizing Infection w/ Non-healing Ulcers (Wound Cx methicillin-resistant staph epidermidis and corynebacterium, Wound OR Cx Enterococcus faecalis, staph hominis hominis and gram-positive rods) w/ Intertrigo, Concurrent RLE anterior tidwell Cellulitis RULED OUT, felt secondary to Chronic Venous Stasis Changes, Failed outpatient Abx Therapies: ED evaluation w/ tachycardia, increased RR, elevated LA. Admitted to [facility], maintained initially on IV vanc and zosyn-->transitioned to vanc per ID and clinda per Surgery, Wound Cx methicillin-resistant staph epidermidis and corynebacterium and Wound Cx OR w/ Enterococcus faecalis, staph hominis hominis and gram-positive rods. OR 05/11/18 with excisional debridement of nonhealing ulcer and skin and subcutaneous tissue for necrotizing soft tissue infection and panniculectomy with VAC placement following. Bld Cx NGTD. Infectious disease and Plastic Surgery consulted and following. Plan per ID recommendation to continue IV vancomycin x 14 days (currently 6 days remaining including today) with SNF transition once approval obtained. VAC changes MWF, awaiting SNF possible transition today, will hold on AM VAC change, if remains will change today otherwise will need to transition to wet-->dry with VAC placement af facility. Will need follow-up with Surgery. Lab trending (weekly bmp, cbc, vanc trough) w/ Vanc usage per ID in addition to oral clindamycin with planned 14 days total regimen w/ currently 7 additional day need (completion date: 05/26/18). (2) Hypertension: Continue home regimen including lisinopril, hydrochlorothiazide, PRN hydralazine. (3) Diabetes mellitus type II: Not on regimen, HgbA1c 5.7%, ADA diet, accu checks w/ ISS. (4) Morbid Obesity: Weight loss and lifestyle changes encouraged, nutrition consulted. (5) Hypothyroidism: Continue home synthroid regimen. 05/11/18 TSH obtained 47.40, acute setting, repeated TSH as clinically improved w/ FT4 to assess regimen change needs, TSH 4.27, FT4 1.64, will plan on repeat in 4-6 weeks given acute presentation and not marked since initial check. (6) Allergic rhinitis: Continue home Claritin and Singulair regimen. (7) Anxiety and Depression: Continue home zoloft regimen. (8) GERD: Famotidine. (9) MARCE: CPAP non-compliant. (10) Asthma: Likely hypoventilation syndrome contributing, PRN albuterol, HOB, IS. (11) Hypokalemia: Admission K+ 3.3, supplementation given, resolved. (12) DVT Prophylaxis: SCDs, lovenox. Code Visit Inpatient E&M: 03839 Subs Hosp L2
--- NOTE | 2018-05-19 08:39 | CASEMGMT ---
Social Work Note SW placed a call to Halina at [facility] asking for update on pre-cert. Halina states that she hasn't heard back yet from [facility] and she will be calling them today around 9:00am to see about an update. Plan: [facility] pending pre-cert Lindsay Noguera ABATTOIR SUPERVISOR, MASH PREPARATORY OPERATOR
[2018-05-19 08:50] VITALS: BP 103/61; PULSE 90; RESP 16; RESP 17; TEMP 37; O2SAT 99
[2018-05-19] MEDS: Sertraline 100 MG Tablet PO (09:05)
[2018-05-19] MEDS: Montelukast 10 MG Tablet PO (09:06)
[2018-05-19] MEDS: Lisinopril 10 MG Tablet PO (09:06)
[2018-05-19] MEDS: Loratadine 10 MG Tablet PO (09:06)
[2018-05-19] MEDS: Enoxaparin 40 MG/0.4 ML Syringe SC ×2 (09:08→22:22)
[2018-05-19] MEDS: Famotidine 20 MG Tablet PO ×2 (09:08→22:22)
[2018-05-19 09:26] VITALS: O2SAT 98
[2018-05-19 10:26] LABS: T4 Free Direct 1.64 ng/dL (0.76-1.46); Thyroid Stim Hormone (TSH) 4.27 uIU/mL (0.358-3.74)
--- NOTE | 2018-05-19 10:50 | PCM.PN.ID ---
Patient Problems: Active and Suspected Problems Incisional hernia (Acute) Subjective: Feeling ok, some nausea with clinda. No fever. - Physical Exam General: Alert, Cooperative, No apparent distress Lungs: Clear to auscultation, Normal air movement Cardiovascular: Regular rate, Regular Rhythm Abdomen: Soft, Non Tender, Non-Distended Skin: Ulcer/ Wound - wound vac in place Vital Signs Temp Pulse Resp BP Pulse Ox 98.6 F 90 17 103/61 98 05/19/18 08:50 05/19/18 08:50 05/19/18 08:50 05/19/18 08:50 05/19/18 09:26 Oxygen Flow Rate (L/min) 2 Oxygen Delivery Method Room Air Weight: 217.724 kg Body Mass Index (BMI) 90.6 Intake and Output for Last 24 Hours 05/17/18 05/18/18 05/19/18 23:59 23:59 23:59 Intake Total 3173 / 3173 2172 / 2172 1824 / 1824 Output Total 1300 / 1300 950 / 950 900 / 900 Balance 1873 / 1873 1222 / 1222 924 / 924 Microbiology Past 72 Hours 05/11/18 Unknown Gram Stain - Final Incision/Surgical Site Wound Culture - Final Enterococcus faecalis Gram positive marisel Staphylococcus hominis hominis Anaerobic Culture - Final Prevotella melaninogenica Anaerococcus prevotii Laboratory Tests Past 24 Hrs 05/19/18 09:55 TSH 4.27 H Free T4 1.64 H Medical Necessity - Tobacco Use Smoking Status: Never smoker Tobacco Use: Non-smoker Route of nutrition/ use of supplements: [] Nutritional Intake: [] IV Site: [] Vitale Catheter: [] - Assessment/Plan Antibiotics: [] Assessment/Plan: [] Active and Suspected Problems Incisional hernia (Acute) Abd panniculitis with necrotizing infection - surg cx with efaecalis and staph hominis. Wound cx with MRSE, corynebacterium. MRSE was R to clinda and levaquin. Now growth of anaerobes. Improving with vanc. Plan on discharge on iv vanc and po clinda for 7 more days for 14 day total from date of surgery. Weekly bmp, cbc, and vanc trough. Will follow, D/w primary team
--- NOTE | 2018-05-19 12:49 | PCM.TXEXTCAR ---
- Diet 05/11/18 22:23 Diet: Calorie Controlled and Cardiac Diet Type of Dietary Supplement:: Glucerna Shake Is pt able to select menu?: Yes Diet Comments: prefers chocolate glucerna How many daily calories?: 1600 calorie - Routine Orders/Code Status Enema Type: Fleetz Enema Frequency: Daily PRN Suppository Type: Dulcolax 10mg Suppository Frequency: Daily PRN Keep PO Greater than or Equal to (%): 92 Routine Lab Work: - - CBC, BMP, vanc trough weekly while on the antibiotic therapy with results to be faxed to Dr. Soriano. Code Status: Full Code - Wound(s) LOWER ABD Wound Type: non healing surgical incision Dressing Change: VAC MWF mid abd Wound Type: Surgical Incision Dressing Change: mepitel/ ABDs/ Medipore/ betadine wood boring machine operator kerlix - Suggestions for Active Care Change Position every (hours): 3 Hours to sit in a chair: 6 Times a day to sit in chair: 3 - Therapies Weight Bearing: Weight bearing as tolerated Physical Therapy: Eval and Treat Occupational Therapy: Eval and Treat - Problem/Diagnosis (1) Panniculitis Status: Acute Current Visit: No (2) Anxiety and depression Status: Chronic Current Visit: No (3) Allergic rhinitis Status: Chronic Current Visit: No (4) MARCE (obstructive sleep apnea) Status: Chronic Comment: not on CPAP (pt refusal) Current Visit: No (5) Asthma Status: Chronic Current Visit: No (6) Prediabetes Status: Chronic Current Visit: No (7) Hypertension Status: Chronic Current Visit: No (8) Hypothyroid Status: Chronic Current Visit: No - Allergies/Procedures Done in Hospital Allergies/Adverse Reactions: Allergies diphenhydramine HCl [From Benadryl] Allergy (Verified 05/06/18 15:13) Hives metronidazole [From Flagyl] Allergy (Verified 05/06/18 15:13) Rash venom-honey bee [bee venom (honey bee)] Allergy (Verified 05/06/18 15:13) Anaphylaxis aspirin Adverse Reaction (Verified 05/06/18 15:13) Upset Stomach codeine Adverse Reaction (Verified 05/06/18 15:13) Other ibuprofen Adverse Reaction (Verified 05/06/18 15:13) Upset Stomach Penicillins Adverse Reaction (Verified 05/06/18 15:13) Nausea Procedures: - - OR 05/11/18 with excisional debridement of nonhealing ulcer and skin and subcutaneous tissue for necrotizing soft tissue infection and panniculectomy with VAC placement following. - Type of Care/Length of Stay Estimated LOS: Convalescent Care Less Than 30 days Type of Care Needed: Skilled Rehab Potential: Good Prognosis: Good - Additional Orders/Day of Discharge Additional Orders: (1) VAC changes MWF with Wound RN to follow. (2) Fall precautions. (3) HOB > 30 with continued IS 10x/hr 7a-7p. (4) Encourage CPAP usage, non-compliant, q HS. (5) Continue nutrition consultation for morbid obesity. (6) Recommendation repeat TSH, Free T4 in 4-6 weeks as abnormal during admission but obtained during acute illness. (7) Noted Diabetes history, HgBA1c 5.7%, recommend continued ADA diet. H&P will serve as current which was dated: 05/06/18 Day of Discharge: 05/17/18 - Dietary and Speech Recommendations Dietitian Recommendations/Changes: Please check current wt. Rec diet change to 2000 calorie diet. Will d/c ONS medpass - pt receiving on meal trays. Rec Royer bid to help w/ wound healing (order from pharmacy). - Follow Up Care Primary Care Physician: Franco Bardales DO [Primary Care Provider] - Please follow up with your Primary Care Physician in: 1 week. Please Follow Up With: Yrn Hendricks MD When: in 1-2 weeks at the wound care center. Please Follow Up With: Moisés Soriano MD When: As needed, will continue to follow routine labs while on antibiotics
--- NOTE | 2018-05-19 14:47 | CASEMGMT ---
Social Work Note SW placed a call to [facility]. [facility] states that they have received referral and it is still pending and that they have 10 days to get back to SNF in regard to pre-cert. Lindsay Noguera RESEARCH AND DEVELOPMENT TESTER, OIL HEAT TECHNICIAN
[2018-05-19 15:41] VITALS: BP 101/61; PULSE 88; RESP 17; TEMP 36.9; O2SAT 96
--- NOTE | 2018-05-19 15:50 | NURSING ---
wound photo: mid/right lower abdomen
[2018-05-19 20:23] VITALS: BP 103/62; PULSE 97; RESP 16; TEMP 36.8; O2SAT 98
[2018-05-20 02:20] VITALS: BP 108/62; PULSE 72; RESP 16; TEMP 36.8; O2SAT 94
[2018-05-20] MEDS: Levothyroxine 150 MCG Tablet 300 MCG PO (05:18)
[2018-05-20] MEDS: Clindamycin HCl 150 MG Capsule 300 MG PO ×3 (05:18→21:27)
[2018-05-20] MEDS: Nystatin Powder 15gm Bottle 1 APPLIC TOPICAL ×3 (05:19→21:27)
[2018-05-20 07:12] VITALS: O2SAT 94
[2018-05-20] MEDS: Famotidine 20 MG Tablet PO ×2 (10:05→21:27)
[2018-05-20] MEDS: Enoxaparin 40 MG/0.4 ML Syringe SC ×2 (10:05→21:27)
[2018-05-20] MEDS: Sertraline 100 MG Tablet PO (10:06)
[2018-05-20] MEDS: Montelukast 10 MG Tablet PO (10:06)
[2018-05-20] MEDS: Lisinopril 10 MG Tablet PO (10:06)
[2018-05-20] MEDS: Loratadine 10 MG Tablet PO (10:06)
--- NOTE | 2018-05-20 10:10 | PCM.PN.ID ---
Patient Problems: Active and Suspected Problems Incisional hernia (Acute) Subjective: Feeling ok, nausea improved, no fever. - Physical Exam General: Alert, Cooperative Lungs: Clear to auscultation, Normal air movement Cardiovascular: Regular rate, Regular Rhythm Abdomen: Soft, Non Tender, Non-Distended, Obese Skin: Ulcer/ Wound - wound vac in place, reviewed photos Vital Signs Temp Pulse Resp BP Pulse Ox 98.3 F 72 16 108/62 94 05/20/18 02:20 05/20/18 02:20 05/20/18 02:20 05/20/18 02:20 05/20/18 07:12 Oxygen Flow Rate (L/min) 2 Oxygen Delivery Method Room Air Weight: 217.724 kg Body Mass Index (BMI) 90.6 Intake and Output for Last 24 Hours 05/18/18 05/19/18 05/20/18 23:59 23:59 23:59 Intake Total 2172 / 2172 2350 / 2350 323 / 323 Output Total 950 / 950 1300 / 1300 Balance 1222 / 1222 1050 / 1050 323 / 323 Microbiology Past 72 Hours 05/11/18 Unknown Gram Stain - Final Incision/Surgical Site Wound Culture - Final Enterococcus faecalis Gram positive marisel Staphylococcus hominis hominis Anaerobic Culture - Final Prevotella melaninogenica Anaerococcus prevotii Laboratory Tests Past 24 Hrs 05/19/18 09:55 TSH 4.27 H Free T4 1.64 H Medical Necessity - Tobacco Use Smoking Status: Never smoker Tobacco Use: Non-smoker Route of nutrition/ use of supplements: [] Nutritional Intake: [] IV Site: [] Vitale Catheter: [] - Assessment/Plan Antibiotics: [] Assessment/Plan: [] Active and Suspected Problems Incisional hernia (Acute) Abd panniculitis with necrotizing infection - surg cx with efaecalis and staph hominis. Wound cx with MRSE, corynebacterium. MRSE was R to clinda and levaquin. Now growth of anaerobes. Improving with vanc/clinda. Plan on discharge on iv vanc and po clinda for 5 more days for 14 day total from date of surgery, stop date 05/25/18. Weekly bmp, cbc, and vanc trough. Nausea improved. Will follow, D/w caser up.
[2018-05-20 10:12] VITALS: BP 124/58; PULSE 89; RESP 18; TEMP 37.1; O2SAT 98
[2018-05-20 10:26] LABS: Absolute Lymphocyte Count 2.13 X10^3/ul (0.83-4.51); Basophil# 0.04 X10^3/uL; Basophil% 0.4 % (0-1); Eosinophil# 0.49 X10^3/uL; Eosinophils% 4.7 % (0-5); Hematocrit 29.8 % (37-47); Lymphocyte # 2.13 X10^3/ul (4.0); Lymphocyte % 20.3 % (19-41); Mean Corp Hgb Conc 30.2 g/gl (32-36); Mean Corpuscular Hgb 26.3 pg (27.0-32.0); Mean Corpuscular Volume 87.1 fL (81-99); Mean Platelet Vol. 9.7 fl (6.2-12.0); Monocyte% 7.6 % (0-10); Neutrophil # 6.97 X10^3/uL (2.7-7.7); Neutrophil % 66.6 % (47-70); POSITIVE COUNT NO; POSITIVE DIFFERENTIAL NO; POSITIVE MORPHOLOGY NO; Platelet Count 324 K/mm3 (150-450); RBC Distribution Width CV 14.9 % (11.6-14.6); RBC Distribution Width SD 47.7 fl (35.1-43.9); Red Blood Count 3.42 M/mm3 (4.2-5.4); White Blood Count 10.5 K/mm3 (4.4-11.0)
[2018-05-20 10:40] LABS: Anion Gap 9 (5-15); BUN 11 mg/dL (7-18); BUN/Creat Ratio 16.7 RATIO (10-20); Calcium,Total 8.8 mg/dL (8.5-10.1); Chloride 104 mmol/L (98-107); Creatinine, Serum 0.66 mg/dL (0.55-1.02); EST Glomerular Filtration Rate 104 mL/min (>60); Est Glom Filt Rate - Afr Amer 126 mL/min (>60); Estimated Creatinine Clearance 83.79 ml/min; Glucose 104 mg/dL (74-106); Potassium 4.2 mmol/L (3.5-5.1); Sodium Level 139 mmol/L (136-145)
--- NOTE | 2018-05-20 11:31 | PCM.PN.HOSP ---
Patient Problems: Active and Suspected Problems Incisional hernia (Acute) Subjective: Patient overnight with VAC malfunction with removal of VAC today with possibility of replacement versus hold if able to transfer to senior care facility with redo back at facility. Patient denies any other acute events and confirmed by nursing staff. Patient continues to improve daily with greater ease of movement and increased activity toleration. Still awaiting allowance for transition to senior care facility. Patient denies fevers, chills, nausea, emesis, abdominal pain, chest pain or dyspnea. Objective: Physical Examination: General: awake, alert, oriented x 3 and cooperative, seated upright in the bed in no apparent distress. Skin: normal color, turgor, no icterus, cyanosis except for markedly improved abdominal erythema, status post operative intervention with initially VAC in place, currently being taken down secondary to malfunction, prior noted only continued canister serosanguineous. HEENT: AT/NC, EOMI, PERRLA, MMM. Lungs: Diminished BS BL bases, distant, mild effort, no rales, ronchi or wheezing. Heart: Regular rate and regular rhythm; no gallop, rub audible. Abdomen: soft, morbidly obese, notable pannus, s/p OR as noted, see skin, expected mild TTP but notable improved since initial presentation, ND but difficult assessment given habitus, distant BS. Extremities: no cyanosis, clubbing, see skin. Neurological: patient awake, alert, oriented x 3; cognitive function intact; pupils equally reactive to light and accomodation; cranial nerves II-XII grossly normal, moving all 4 extremities, no focal deficits, strength improved, moderately globally decreased secondary to habitus and acute presentation. Psychiatric: affect appears normal, no acute evidence of depressive or anxiety feelings. Vitals/I&O's: Vital Signs Temp Pulse Resp BP Pulse Ox 98.8 F 89 18 124/58 H 98 05/20/18 10:12 05/20/18 10:12 05/20/18 10:12 05/20/18 10:12 05/20/18 10:12 Oxygen Flow Rate (L/min) 2 Oxygen Delivery Method Room Air Weight: 479 lb 15.988 oz Body Mass Index (BMI) 90.6 Intake and Output for Last 24 Hours 05/18/18 05/19/18 05/20/18 23:59 23:59 23:59 Intake Total 2172 / 2172 2350 / 2350 323 / 323 Output Total 950 / 950 1300 / 1300 Balance 1222 / 1222 1050 / 1050 323 / 323 Microbiology Past 72 Hours 05/11/18 Unknown Incision/Surgical Site Gram Stain - Final 05/11/18 Unknown Incision/Surgical Site Wound Culture - Final Enterococcus faecalis Gram positive marisel Staphylococcus hominis hominis 05/11/18 Unknown Incision/Surgical Site Anaerobic Culture - Final Prevotella melaninogenica Anaerococcus prevotii Laboratory Results 05/20/18 10:15: WBC 10.5, RBC 3.42 L, Hgb 9.0 L, Hct 29.8 L, MCV 87.1, MCH 26.3 L, MCHC 30.2 L, RDW 14.9 H, RDW Differential 47.7 H, Plt Count 324, MPV 9.7, Immature Gran % (Auto) 0.400, Neut % (Auto) 66.6, Lymph % (Auto) 20.3, Lamb % (Auto) 7.6, Eos % (Auto) 4.7, Baso % (Auto) 0.4, Absolute Neuts (auto) 7.0, Absolute Lymphs (auto) 2.13, Total Counted Not Reportable 05/20/18 10:15: Sodium 139, Potassium 4.2, Chloride 104, Carbon Dioxide 26.0, Anion Gap 9, BUN 11, Creatinine 0.66, Estim Creat Clear Calc 83.79, Est GFR (MDRD) Af Amer 126, Est GFR (MDRD) Non-Af 104, BUN/Creatinine Ratio 16.7, Glucose 104, Calcium 8.8 Current Medications Acetaminophen (Tylenol) 650 mg PO Q6H PRN PRN PRN Reason: Mild Pain (scale 0-3)/T>100.7 Last Admin: 05/16/18 18:09 Dose: 650 mg Al Hydroxide/Mg Hydroxide (Mylanta Ii) 30 ml PO Q6H PRN PRN PRN Reason: Gastric burning Albuterol Sulfate (Ventolin Aerosols) 2.5 mg INHALATION Q2H PRN PRN PRN Reason: dyspnea, wheezing Clindamycin HCl (Cleocin) 300 mg PO TID [facility] Last Admin: 05/20/18 05:18 Dose: 300 mg Enoxaparin Sodium (Lovenox) 40 mg SC BID [facility] Last Admin: 05/20/18 10:05 Dose: 40 mg Famotidine (Pepcid) 20 mg PO BID [facility] Last Admin: 05/20/18 10:05 Dose: 20 mg Sodium Chloride () 250 mls @ 15 mls/hr IV .[id number] PRN PRN Reason: SALINE FLUSH Vancomycin HCl 1,500 mg/ (Sodium Chloride) 530 mls @ 250 mls/hr IV Q12H [facility] Last Admin: 05/19/18 20:12 Dose: 250 mls/hr Levothyroxine Sodium (Synthroid) 300 mcg PO DAILY@0600 [facility] Last Admin: 05/20/18 05:18 Dose: 300 mcg Lisinopril (Zestril) 10 mg PO DAILY [facility] Last Admin: 05/20/18 10:06 Dose: 10 mg Loratadine (Claritin) 10 mg PO DAILY [facility] Last Admin: 05/20/18 10:06 Dose: 10 mg Magnesium Hydroxide (Milk Of Magnesia) 30 ml PO DAILY PRN PRN PRN Reason: Constipation Montelukast Sodium (Singulair) 10 mg PO DAILY [facility] Last Admin: 05/20/18 10:06 Dose: 10 mg Morphine Sulfate () 2 - 4 mg IV Q3H PRN PRN PRN Reason: Severe Pain (pain scale 6-10) Morphine Sulfate () 1 - 2 mg IV Q4H PRN PRN PRN Reason: Moderate Pain (pain scale 4-5) Morphine Sulfate () 2 - 4 mg IV Q3H PRN PRN PRN Reason: Severe Pain (pain scale 6-10) Nystatin (Mycostatin Powder) 1 applic TOPICAL TID [facility] PRN Reason: Protocol Last Admin: 05/20/18 05:19 Dose: 1 applicatio Ondansetron HCl (Zofran) 4 mg IV Q8H PRN PRN PRN Reason: NAUSEA Last Admin: 05/19/18 06:56 Dose: 4 mg Oxycodone HCl (Oxyir) 5 mg PO Q4H PRN PRN PRN Reason: Moderate Pain (pain scale 4-5) Last Admin: 05/19/18 15:39 Dose: 5 mg Promethazine HCl (Phenergan) 12.5 mg IV Q6H PRN PRN PRN Reason: NAUSEA/VOMITING Sertraline HCl (Zoloft) 100 mg PO DAILY [facility] Last Admin: 05/20/18 10:06 Dose: 100 mg Sodium Chloride () 5 - 30 ml IV UD PRN PRN Reason: SALINE FLUSH Last Admin: 05/19/18 20:13 Dose: 10 ml Medical Necessity - Tobacco Use Smoking Status: Never smoker Tobacco Use: Non-smoker Assessment/Plan All Active Problems Panniculitis (Acute) Necrotizing soft tissue infection (Acute) Panniculitis (Acute) Incisional hernia (Acute) Severe sepsis (Acute) The patient is a 42 y/o F w/ PMHx: Morbid Obesity, Asthma, MARCE refusing to wear CPAP, Pre-Diabetes mellitus mellitus, HTN, GERD, Anxiety and Depression, Allergic Rhinitis, Hypothyroidism who presents to the [facility] ED on 05/06/18 with history of prolonged difficulties w/ abdominal wall/pannicular cellulitis most recently treated inpatient ~ 2 months prior at [facility] with improvement; however, worsened again recently w/ PCP directed abx attempt outpatient but not resolving with no associated fevers or chills. (1) Severe Sepsis secondary to Polymicrobial Acute Panniculitis w/ Necrotizing Infection w/ Non-healing Ulcers (Wound Cx methicillin-resistant staph epidermidis and corynebacterium, Wound OR Cx Enterococcus faecalis, staph hominis hominis and gram-positive rods) w/ Intertrigo, Concurrent RLE anterior tidwell Cellulitis RULED OUT, felt secondary to Chronic Venous Stasis Changes, Failed outpatient Abx Therapies: ED evaluation w/ tachycardia, increased RR, elevated LA. Admitted to [place], maintained initially on IV vanc and zosyn-->transitioned to vanc per ID and clinda per Surgery, Wound Cx methicillin-resistant staph epidermidis and corynebacterium and Wound Cx OR w/ Enterococcus faecalis, staph hominis hominis and gram-positive rods. OR 05/11/18 with excisional debridement of nonhealing ulcer and skin and subcutaneous tissue for necrotizing soft tissue infection and panniculectomy with VAC placement following. Bld Cx NGTD. Infectious disease and Plastic Surgery consulted and following. Will need follow-up with Surgery. Lab trending (weekly bmp, cbc, vanc trough) w/ Vanc usage per ID in addition to oral clindamycin with planned 14 days total regimen w/ currently 7 additional day need (completion date: 05/26/18). VAC malfunction 05/20/18 AM, taken down, awaiting CM update for possible SNF transition and if transfer today will hold on VAC replacement and perform at facility upon arrival. (2) Acute on Suspected Chronic Anemia: Admission Hgb 11.7, hydrated and decreased since admission, 05/20/18 Hgb 9, likely associated with operative intervention, Fe panel, ferritin, vitamin B12 and folic acid levels pending. (3) Hypertension: Continue home regimen including lisinopril, hydrochlorothiazide, PRN hydralazine. (4) Diet Controlled Diabetes mellitus type II: Not on regimen upon presentation, confirmed HgbA1c 5.7%, ADA diet, deferred accu checks/ISS. (5) Morbid Obesity: Weight loss and lifestyle changes encouraged, nutrition consulted for education and teaching. (6) Hypothyroidism: Continue home synthroid regimen. 05/11/18 TSH obtained 47.40, acute setting, repeated TSH as clinically improved w/ FT4 to assess regimen change needs, TSH 4.27, FT4 1.64, will plan on repeat in 4-6 weeks given acute presentation and not marked since initial check. (7) Allergic rhinitis: Continue home Claritin and Singulair regimen. (8) Anxiety and Depression: Continue home zoloft regimen. (9) GERD: Famotidine. (10) MARCE: CPAP non-compliant. (11) Asthma: Likely hypoventilation syndrome contributing, PRN albuterol, HOB, IS. (12) Hypokalemia: Admission K+ 3.3, supplementation given, resolved. 05/20/18 K 4.2. (13) DVT Prophylaxis: SCDs, lovenox. Code Visit Inpatient E&M: 50217 Subs Hosp L2
--- NOTE | 2018-05-20 12:33 | NURSING ---
letterpress printing machinist called regarding results of cxr, they are to return call.
--- NOTE | 2018-05-20 12:41 | NURSING ---
This nurse talked with Emeli from recruiting internship. She was made aware that PICC line is not giving a blood return but flushes easily and that xray was obtained and the results of that xray. Emeli suggested CathFlo or to replace the PICC line. This nurse will call Dr. Mast and ask her what we want to do.
[2018-05-20 13:01] LABS: Ferritin 95 ng/mL (8-252); Iron 20 ug/dL (50-170); Iron Binding Capacity,Total 338 ug/dL (250-450); PERCENT IRON SATURATION 5.9 % (15.0-55.0)
--- NOTE | 2018-05-20 13:06 | NURSING ---
This nurse spoke with Dr. Mast. Order to place new PICC at this time. volcanologist called and made aware. Emeli jiménez volcanologist will be here between 1400 and 1500 today to insert new PICC.
--- NOTE | 2018-05-20 15:12 | NURSING ---
Emeli from [facility] here and looked at the xray that was taken this morning. Emeli thinks that the tip of the catheter is in the right place and just did show up on xray b/c she is a bigger patient. This nurse informed Dr. Mast and after ditch worker suggested that we do cathflo instead of inserting a new PICC, Dr. Mast agreed and order was obtained.
[2018-05-20] MEDS: Alteplase 2 MG/2 ML Vial IV (15:48)
[2018-05-20 16:00] VITALS: BP 117/41; PULSE 85; RESP 18; TEMP 37.4; O2SAT 100
[2018-05-20] MEDS: 0.9% NaCl Peripheral Flush Adult/Peds IV ×3 (16:25→21:29)
[2018-05-20 20:16] VITALS: BP 119/60; PULSE 97; RESP 18; TEMP 37.3; O2SAT 98
[2018-05-21 02:15] VITALS: BP 113/61; PULSE 88; RESP 18; TEMP 37; O2SAT 94
[2018-05-21] MEDS: Clindamycin HCl 150 MG Capsule 300 MG PO ×2 (05:47→13:28)
[2018-05-21] MEDS: Levothyroxine 150 MCG Tablet 300 MCG PO (05:47)
[2018-05-21] MEDS: Nystatin Powder 15gm Bottle 1 APPLIC TOPICAL ×2 (05:47→13:28)
[2018-05-21 07:28] VITALS: O2SAT 97
[2018-05-21 08:15] VITALS: BP 100/57; PULSE 97; RESP 16; TEMP 36.6; O2SAT 96
[2018-05-21 08:24] LABS: Vancomycin, Trough Level 8.2 ug/mL (5.0-15.0)
[2018-05-21 08:37] LABS: Vitamin B12 392 pg/mL (211-911)
[2018-05-21] MEDS: Loratadine 10 MG Tablet PO (09:50)
[2018-05-21] MEDS: Enoxaparin 40 MG/0.4 ML Syringe SC (09:50)
[2018-05-21] MEDS: Famotidine 20 MG Tablet PO (09:51)
[2018-05-21] MEDS: Lisinopril 10 MG Tablet PO (09:51)
[2018-05-21] MEDS: Montelukast 10 MG Tablet PO (09:51)
[2018-05-21] MEDS: Sertraline 100 MG Tablet PO (09:51)
[2018-05-21 09:54] VITALS: BP 124/82; PULSE 96
--- NOTE | 2018-05-21 10:33 | PCM.RX.CS ---
Consult Pharmacy has been consulted to manage selected antiobiotic: Vancomycin Type of Consult: Follow-up Suspected Infection: Skin/Soft tissue Prior Doses of Antibiotics Received/Current Regimen: Medications Vancomycin HCl 1,500 mg/ (Sodium Chloride) 530 mls @ 250 mls/hr IV Q12H [facility] Last Admin: 05/21/18 08:26 Dose: 250 mls/hr Labs: Sodium 139 mmol/L (136-145) 05/20/18 10:15 Potassium 4.2 mmol/L (3.5-5.1) 05/20/18 10:15 Chloride 104 mmol/L (98-107) 05/20/18 10:15 Carbon Dioxide 26.0 mmol/L (21.0-32.0) 05/20/18 10:15 Anion Gap 9 (5-15) 05/20/18 10:15 BUN 11 mg/dL (7-18) 05/20/18 10:15 Creatinine 0.66 mg/dL (0.55-1.02) 05/20/18 10:15 Est GFR (MDRD) Af Amer 126 mL/min (>60) 05/20/18 10:15 Est GFR (MDRD) Non-Af 104 mL/min (>60) 05/20/18 10:15 BUN/Creatinine Ratio 16.7 RATIO (10-20) 05/20/18 10:15 Glucose 104 mg/dL (74-106) 05/20/18 10:15 Vancomycin Trough 8.2 ug/mL (5.0-15.0) 05/21/18 07:42 Microbiology: Microbiology 05/11/18 Unknown Incision/Surgical Site Gram Stain - Final 05/11/18 Unknown Incision/Surgical Site Wound Culture - Final Enterococcus faecalis Gram positive marisel Staphylococcus hominis hominis 05/11/18 Unknown Incision/Surgical Site Anaerobic Culture - Final Prevotella melaninogenica Anaerococcus prevotii 05/10/18 21:50 Wound - Abdominal Gram Stain - Final 05/10/18 21:50 Wound - Abdominal Wound Culture - Final Staphylococcus epidermidis Corynebacterium amycolatum 05/10/18 21:50 Wound - Abdominal Anaerobic Culture - Final No anaerobic bacteria isolated. Weight used for dosin kg Estimated Creatinine Clearance: 84 ml/min Goal Trough: 10-15 mcg/mL Pharmacy Plan for Drug Dosing: Vancomycin trough slightly below goal at this time. However, patient missed a dose yesterday due to PICC line difficulty, then received the 2000 dose 3 hours early, making this a 15 hr trough with a previous missed dose. Recommend to continue as ordered. Per Dr Soriano, will not order any more trough levels for duration of current therapy. Pharmacy Service will continue to monitor and adjust dosing as required.
--- NOTE | 2018-05-21 12:05 | PCM.DC.SUM ---
Discharge Date and Diagnosis - Problem List Patient Problems: Active and Suspected Problems Incisional hernia (Acute) Date of Admission: 05/06/18 Date of Discharge: 05/21/18 - Primary Discharge Diagnosis Active and Suspected Problems (1) Severe Sepsis secondary to Polymicrobial Acute Panniculitis w/ Necrotizing Infection w/ Non-healing Ulcers (Wound Cx methicillin-resistant staph epidermidis and corynebacterium, Wound OR Cx Enterococcus faecalis, staph hominis hominis and gram-positive rods) w/ Intertrigo, Concurrent RLE anterior tidwell Cellulitis RULED OUT, felt secondary to Chronic Venous Stasis Changes, Failed outpatient Abx Therapies (2) Acute on Chronic Anemia secondary to Operative Intervention and Blood Loss (3) Hypertension (4) Diet Controlled Diabetes mellitus type II (5) Morbid Obesity (6) Hypothyroidism (05/11/18 TSH obtained 47.40, acute setting, repeated TSH as clinically improved w/ FT4 to assess regimen change needs, TSH 4.27, FT4 1.64, recommended repeat 4-6 weeks given acute presentation) (7) Allergic rhinitis (8) Anxiety and Depression (9) GERD (10) MARCE, CPAP non-compliant. (11) Asthma (12) Hypokalemia - Secondary Discharge Diagnosis Chronic Problems Erythema intertrigo (Chronic) abdominal wall skin crease intertrigo Abdominal panniculus, symptomatic (Chronic) Skin ulcer of abdominal wall with fat layer exposed (Chronic) Anxiety and depression (Chronic) Allergic rhinitis (Chronic) MARCE (obstructive sleep apnea) (Chronic) not on CPAP (pt refusal) Obesity, Class III, BMI 40-49.9 (morbid obesity) (Chronic) Asthma (Chronic) Super-super obese (Chronic) Prediabetes (Chronic) Hypertension (Chronic) Hypothyroid (Chronic) Hospital Course and Treatment Dr. Hendricks Surgery, Plastic Dr. Soriano Infectious Disease Operations: - - OR 05/11/18 with excisional debridement of nonhealing ulcer and skin and subcutaneous tissue for necrotizing soft tissue infection and panniculectomy with VAC placement following per Dr. Hendricks. Procedures: EKG Summary of Care Provided: The patient is a 42 y/o F w/ PMHx: Morbid Obesity, Asthma, MARCE refusing to wear CPAP, Pre-Diabetes mellitus mellitus, HTN, GERD, Anxiety and Depression, Allergic Rhinitis, Hypothyroidism who presented to the [facility] ED on 05/06/18 with history of prolonged difficulties w/ abdominal wall/pannicular cellulitis most recently treated inpatient ~ 2 months prior at [facility] with improvement; however, worsened again recently w/ PCP directed abx attempt outpatient but not resolving with no associated fevers or chills. Patient admitted and treated for Severe Sepsis secondary to Polymicrobial Acute Panniculitis w/ Necrotizing Infection w/ Non-healing Ulcers (Wound Cx methicillin-resistant staph epidermidis and corynebacterium, Wound OR Cx Enterococcus faecalis, staph hominis hominis and gram-positive rods) w/ Intertrigo, Concurrent RLE anterior tidwell Cellulitis RULED OUT, felt secondary to Chronic Venous Stasis Changes, Failed outpatient Abx Therapies. ED evaluation w/ tachycardia, increased RR, elevated LA. Admitted to [place], maintained initially on IV vanc and zosyn-->transitioned to vanc per ID and clinda per Surgery, Wound Cx methicillin-resistant staph epidermidis and corynebacterium and Wound Cx OR w/ Enterococcus faecalis, staph hominis hominis and gram-positive rods. OR 05/11/18 with excisional debridement of nonhealing ulcer and skin and subcutaneous tissue for necrotizing soft tissue infection and panniculectomy with VAC placement following. Bld Cx NGTD. Infectious disease and Plastic Surgery consulted and followed. During admission patient w/ acute on Chronic Anemia secondary to operative interventions and blood loss. Patient w/ diet Controlled Diabetes mellitus type II, not on regimen upon presentation, confirmed HgbA1c 5.7%. Weight loss and lifestyle changes encouraged, nutrition consulted for education and teaching. Continued home synthroid regimen. 05/11/18 TSH obtained 47.40, acute setting, repeated TSH as clinically improved w/ FT4 to assess regimen change needs, TSH 4.27, FT4 1.64 with recommended repeat in 4-6 weeks given acute presentation and not marked since initial check. Encouraged MARCE CPAP compliance as not using. Upon discharge to [facility] planned follow-up with Plastic Surgery, ongoing Wound Care, ID as needed in addition to her PCP w/ lab trending (weekly bmp, cbc, vanc trough) w/ Vanc usage per ID in addition to oral clindamycin with planned 14 days total regimen w/ completion date: 05/26/18 and VAC changes MWF. DAY OF DISCHARGE PROGRESS NOTE: Subjective: Patient without acute event overnight per self and nursing report. Patient with back off currently with some serosanguineous drainage but not marketed with planned VAC replacement at facility. Patient denies fever, chills, nausea, emesis, abdominal pain, chest pain or dyspnea. Patient agreeable to discharge to SNF for ongoing antibiotic therapy, wound care, physical and occupational therapies. Patient will be discharged with follow-up with primary care physician, Plastic surgery as well as Infectious disease as needed. Objective: T 98, heart rate 97, BP 124/82, respiratory rate 18, 96% on room air. Physical Examination: General: awake, alert, oriented x 3 and cooperative, seated upright in the bed in no apparent distress. Skin: normal color, turgor, no icterus, cyanosis except for markedly improved abdominal erythema, status post operative intervention, dressing packing in place w/ mild serosanguineous drainage, VAC off. HEENT: AT/NC, EOMI, PERRLA, MMM. Lungs: Diminished BS BL bases, distant, mild effort, no rales, ronchi or wheezing. Heart: Regular rate and regular rhythm; no gallop, rub audible. Abdomen: soft, morbidly obese, notable pannus, s/p OR as noted, see skin, expected mild TTP but notable improved since initial presentation, ND but difficult assessment given habitus, distant BS. Extremities: no cyanosis, clubbing, see skin. Neurological: patient awake, alert, oriented x 3; cognitive function intact; pupils equally reactive to light and accomodation; cranial nerves II-XII grossly normal, moving all 4 extremities, no focal deficits, strength improved, moderately globally decreased secondary to habitus and acute presentation. Psychiatric: affect appears normal, no acute evidence of depressive or anxiety feelings. Assessment and Plan: Please see hospital summary above. Home Medications: Medications to take at Discharge Lisinopril/Hydrochlorothiazide [Zestoretic 10/12.5 Tablet] 1 tablet PO DAILY 03/08/18 Loratadine [Claritin] 10 mg PO DAILY 03/08/18 Montelukast Sodium [Singulair] 10 mg PO DAILY 03/08/18 Omeprazole [Prilosec] 20 mg PO DAILY 03/08/18 Sertraline HCl [Zoloft] 100 mg PO DAILY 03/08/18 Dimethicone/Da/Vit A,C,E/Kristian [Gold Mustafa Ult Diabetic Cream] 1 applic TP DAILY PRN PRN 05/06/18 Levothyroxine Sodium [Synthroid] 300 mcg PO DAILY 05/06/18 Naproxen Sodium [Aleve] 440 mg PO Q12H PRN PRN 05/06/18 Vancomycin IV 1,500 mg IV Q12H #16 vial 05/17/18 Acetaminophen [Tylenol Tablet] 650 mg PO Q6H PRN PRN tablet 05/19/18 Albuterol Aerosols [Ventolin Aerosols] 2.5 mg INHALATION Q2H PRN PRN #1 box 05/19/18 Clindamycin [Cleocin] 300 mg PO TID 7 Days capsule 05/19/18 Nystatin Powder [Mycostatin Powder] 1 applic TOPICAL TID #1 bottle 05/19/18 Oxycodone [Oxyir] 5 - 10 mg PO Q4H PRN PRN 5 Days #60 tab 05/19/18 Following Prescrptions Were Given to Patient: Albuterol Aerosols [Ventolin Aerosols] 2.5 mg INHALATION Q2H PRN PRN #1 box PRN Reason: dyspnea, wheezing Oxycodone [Oxyir] 5 - 10 mg PO Q4H PRN PRN 5 Days #60 tab PRN Reason: Moderate Pain (pain scale 4-5) Vancomycin IV 1,500 mg IV Q12H #16 vial Clindamycin [Cleocin] 300 mg PO TID 7 Days capsule Nystatin Powder [Mycostatin Powder] 1 applic TOPICAL TID #1 bottle Primary Care Physician: Franco Bardales DO [Primary Care Provider] - Please follow up with your Primary Care Physician in: 1 week. Please Follow Up With: Yrn Hendricks MD When: in 1-2 weeks at the wound care center. Please Follow Up With: Moisés Soriano MD When: As needed, will continue to follow routine labs while on antibiotics Disposition: Alf facility Minutes spent on discharge:: 35 Patient Condition:: Fair Medical Necessity - Tobacco Use Smoking Status: Never smoker Tobacco Use: Non-smoker Meaningful Use Info Meaningful Use Diagnoses (Choose all that apply): None applicable Code Visit Inpatient E&M: 50689 Disch Hosp
--- NOTE | 2018-05-21 12:36 | CASEMGMT ---
Social Work Note SW received message from Halina at [facility] stating that she has received pre-cert for pt to discharge today. GEORGIE updated Dr. Hendricks, Dr. Cuca Mast and RN of this. Dr. Cuca Mast states that she has completed discharge paperwork and has put discharge orders in. GEORGIE faxed completed discharge paperwork to Halina at [facility] including transfer to extended care facility, signed medication list and any scripts to [facility]. Originals in SNF folder and copy on pt's chart. [facility] has been completed in [facility]. Originals in SNF folder and copy on pt's chart. GEORGIE set up transportation via bariatric cot through [facility] for 2:00pm. Transportation form on SNF folder and copy on pt's chart. GEORGIE updated pt, JENIFER Zhao and placed a call to Halina at [facility] to update her on transportation time. Pt states that she will call her mom to let her know of discharge. Pt denied additional needs or concerns at this time. Plan: Pt to discharge to [facility] for continued care under skilled with [facility] transporting via bariatric cot at 2:00pm. Lindsay Noguera MANAGER [employer], [employer]
--- NOTE | 2018-05-21 12:42 | PCM.PN.ID ---
Patient Problems: Active and Suspected Problems Incisional hernia (Acute) Subjective: Abd feels heavier. No fever, no n/v/d. - Physical Exam General: Alert, Cooperative Lungs: Clear to auscultation, Normal air movement Cardiovascular: Regular rate, Regular Rhythm Abdomen: Soft, Non Tender, Non-Distended, Obese Skin: Ulcer/ Wound - wound vac off Vital Signs Temp Pulse Resp BP Pulse Ox 98 F 96 16 124/82 H 96 05/21/18 08:15 05/21/18 09:54 05/21/18 08:15 05/21/18 09:54 05/21/18 08:15 Oxygen Flow Rate (L/min) 2 Oxygen Delivery Method Room Air Weight: 217.724 kg Body Mass Index (BMI) 90.6 Intake and Output for Last 24 Hours 05/19/18 05/20/18 05/21/18 23:59 23:59 23:59 Intake Total 2350 / 2350 323 / 323 861 / 861 Output Total 1300 / 1300 300 / 300 Balance 1050 / 1050 323 / 323 561 / 561 Laboratory Tests Past 24 Hrs 05/20/18 05/20/18 05/21/18 10:15 10:15 07:42 Iron 20 L TIBC 338 Iron Saturation 5.9 L Ferritin 95 Vitamin B12 392 Folate 13.30 Vancomycin Trough 8.2 Medical Necessity - Tobacco Use Smoking Status: Never smoker Tobacco Use: Non-smoker Route of nutrition/ use of supplements: [] Nutritional Intake: [] IV Site: [] Vitale Catheter: [] - Assessment/Plan Antibiotics: [] Assessment/Plan: [] Active and Suspected Problems Incisional hernia (Acute) Abd panniculitis with necrotizing infection - surg cx with efaecalis and staph hominis. Wound cx with MRSE, corynebacterium. MRSE was R to clinda and levaquin. Now growth of anaerobes. Improving with vanc/clinda. Plan on discharge on iv vanc and po clinda for 4 more days for 14 day total from date of surgery, stop date 05/25/18. Nausea improved. Will follow, D/w case advocate.
[2018-05-21 13:26] VITALS: BP 147/73; PULSE 102; RESP 18; TEMP 36.4; O2SAT 99
--- NOTE | 2018-05-21 13:43 | NURSING ---
Pt being discharged to the long term today. wound VAC to be reapplied when the patient gets to the long term.
== END 2018-05-21 14:30 | disposition skilled nursing facility (03) | DRG 710 ==
LOC: ED 16:21 → MS3 20:11
PROVIDERS: Anesthesiology; Hospitalist; Internal Medicine; Internal Medicine Infectious Disease; Surgery; Admitting Provider Family Medicine; Emergency Provider Emergency Medicine; Family Provider Student in an Organized Health Care Education/Training Program; PCP Student in an Organized Health Care Education/Training Program; Visit Provider Family Medicine
PROC: 0JB80ZZ Excision of Abdomen Subcutaneous Tissue and Fascia, Open Approach (ICD-10-PCS; CPT 15830; principal; 2018-05-11 08:45)
DX: A41.9 Sepsis, unspecified organism (principal); L03.311 Cellulitis of abdominal wall; M79.3 Panniculitis, unspecified; E66.01 Morbid (severe) obesity due to excess calories; G47.33 Obstructive sleep apnea (adult) (pediatric); E03.9 Hypothyroidism, unspecified; Z68.45 Body mass index [BMI] 70 or greater, adult; I10 Essential (primary) hypertension; Z79.899 Other long term (current) drug therapy; E87.6 Hypokalemia; I87.8 Other specified disorders of veins; E11.9 Type 2 diabetes mellitus without complications; F32.9 Major depressive disorder, single episode, unspecified; F40.240 Claustrophobia; K21.9 Gastro-esophageal reflux disease without esophagitis; J45.909 Unspecified asthma, uncomplicated; L30.4 Erythema intertrigo; K43.2 Incisional hernia without obstruction or gangrene; L98.492 Non-pressure chronic ulcer of skin of other sites with fat layer exposed; Z91.19 Patient's noncompliance with other medical treatment and regimen; B95.7 Other staphylococcus as the cause of diseases classified elsewhere; B95.2 Enterococcus as the cause of diseases classified elsewhere
CPT/HCPCS: 36415; 36569; 71045; 74177; 80048; 80202; 82607; 82728; 82746; 82962; 83036; 83540; 83550; 83605; 83735; 84134; 84439; 84443; 84703; 85025; 85027; 85610; 85652; 85730; 86140; 87040; 87070; 87075; 87076; 87077; 87102; 87186; 87205; 87206; 87640; 88304; 88305; 93005; 93971; 97802; 99282; J2997; J7030; J7040; J7050; J7120; Q9967; A4216; C1751; J1940; J2405

== ENCOUNTER 2018-06-29 17:44 | Emergency (ER) | payer MEDICAID, SELFPAY ==
[2018-06-29 17:45] VITALS: PULSE 97; RESP 16; TEMP 37.5; O2SAT 95; BMI 82.5
[2018-06-29 17:48] VITALS: BP 117/67; PULSE 102; RESP 16; O2SAT 85
[2018-06-29 19:20] LABS: Lactic Acid 1.7 mmol/L (0.4-2.0)
[2018-06-29 19:31] LABS: Absolute Lymphocyte Count 2.09 X10^3/ul (0.83-4.51); Absolute Neutrophil Count 6.6 X10^3/uL (2.0-7.7); Basophil# 0.02 X10^3/uL; Basophil% 0.2 % (0-1); Eosinophil# 0.19 X10^3/uL; Eosinophils% 1.9 % (0-5); Hematocrit 31.5 % (37-47); Hemoglobin 9.2 g/dl (12.0-15.0); Lymphocyte # 2.09 X10^3/ul (4.0); Mean Corp Hgb Conc 29.2 g/gl (32-36); Mean Corpuscular Volume 78.8 fL (81-99); Mean Platelet Vol. 9.9 fl (6.2-12.0); Monocyte# 1.02 X10^3/uL; Monocyte% 10.3 % (0-10); Neutrophil % 66.3 % (47-70); POSITIVE COUNT NO; POSITIVE DIFFERENTIAL NO; POSITIVE MORPHOLOGY NO; Platelet Count 359 K/mm3 (150-450); RBC Distribution Width CV 15.8 % (11.6-14.6); RBC Distribution Width SD 45.7 fl (35.1-43.9)
[2018-06-29 19:41] LABS: Anion Gap 9 (5-15); BUN 13 mg/dL (7-18); BUN/Creat Ratio 21.5 RATIO (10-20); Chloride 98 mmol/L (98-107); EST Glomerular Filtration Rate 115 mL/min (>60); Est Glom Filt Rate - Afr Amer 139 mL/min (>60); Estimated Creatinine Clearance 91.23 ml/min; Glucose 100 mg/dL (74-106); Potassium 3.3 mmol/L (3.5-5.1); Sodium Level 136 mmol/L (136-145)
--- NOTE | 2018-06-29 21:10 | ED.DCSUM_ITS ---
- ER Visit Summary Date of Service: 06/29/18 Chief Complaint: Temperature 100.1 and concern for panniculitis History of Present Illness: The patient is a 43 F who was admitted for severe sepsis secondary to polymicrobial infection of panniculus. Patient and mother report increased swelling of the right abdominal wall with mild erythema. She has had a temperature documented 100.1. She has had no shaking chills. There is no complaint of nausea vomiting. She denies dysuria, frequency, urgency hematuria. She denies diarrhea. She has numerous allergies. Her prior records were reviewed. She denies cough, shortness of breath, difficulty breathing. Please read written note for complete detail Physical Examination: Vital signs noted and only abnormality is heart rate of 102. BMI is 82.5. The right abdominal wall is slightly erythematous with induration and slight warmth. The dressing was taken down and the wound has granulation tissue without drainage. Unable to determine lymphadenopathy similar to body habitus. Heart is regular without murmur, gallop or rub. S1 and S2 are normal. Lungs are clear to auscultation with good movement of air bilaterally. Test Results: White count is normal with normal differential. There is evidence of microcytic anemia with a hemoglobin 9.2 and MCV of 78. Electro panel revealed potassium 3.3. Emergency Department Course and Treatment: Because of the elevated temperature, which is not a fever by definition blood work was obtained. Since there is no leukocytosis or shift or hemodynamic instability will treat with p.o. antibiotics Treatment Plan: Bactrim and cephalexin for 7 days Disposition: Return to nursing facility Impression: Cellulitis abdominal wall This note was generated with [employer] dictation software. It may contain incorrect words, spelling, and punctuation that were not noted in review of the chart prior to signing ED Disposition - Plan for ED Patient: Disposition: Home or Assisted Living Chief Complaint: Fever Instructions: ED Infec Skin Cellulitis Prescriptions: Smz/Tmp Ds [Bactrim Ds] 1 tab PO BID #14 tab Cephalexin 500 mg PO 4X/DAY #28 cap Referrals: Franco Bardales DO [Primary Care Provider] - 3-5 Days
[2018-06-29] MEDS: Cephalexin 250 MG Capsule 500 MG PO (22:09)
[2018-06-29] MEDS: Smz/Tmp Ds Tablet 1 TABLET PO (22:09)
--- NOTE | 2018-06-29 22:40 | ED.RN ---
luther called and updated on patient discharge instructions
[2018-06-29 22:42] VITALS: BP 111/67; PULSE 92; RESP 18; O2SAT 98
== END 2018-06-29 23:19 | disposition skilled nursing facility (03) ==
PROVIDERS: Emergency Provider Emergency Medicine; Family Provider Student in an Organized Health Care Education/Training Program; PCP Student in an Organized Health Care Education/Training Program
DX: L03.311 Cellulitis of abdominal wall (principal); E66.9 Obesity, unspecified; Z68.45 Body mass index [BMI] 70 or greater, adult; Z86.19 Personal history of other infectious and parasitic diseases; Z79.899 Other long term (current) drug therapy
CPT/HCPCS: 80048; 83605; 85025; 99285

== ENCOUNTER 2018-08-02 10:06 | Outpatient (RCR) | payer MEDICAID, SELFPAY ==
[2018-08-02 10:45] VITALS: BP 149/80; PULSE 121; RESP 18; TEMP 37; BMI 81.8
--- NOTE | 2018-08-02 22:16 | PN.PCM_ITS ---
Type of Wound Date of Service: 08/02/18 Chief Complaint: Nonhealing ulcer lower anterior abdominal wall. History of Wound: Surgery 05/11/18 - Surgical preparation lower anterior abdominal wall massive panniculus with excisional debridement nonhealing ulcer and skin and subcutaneous tissue for necrotizing soft tissue infection and panniculectomy (777 cm2). Wound care - Silver. Operative culture - MRSE, Enterococcus faecalis, Methicillin resistant Staphylococcus hominis hominis, Prevotella roger ninogenica, Anaerococcus prevotii, and Corynebacterium amycolatum. She was treated with Vancomycin and Clindamycin and has finished them. Prealbumin from 05/12/18 was 21.1. Encourage nutritional supplementation with protein to help the healing process. CT from 05/08/18 showed a lower midline ventral hernia with nonobstructed small bowel extending into the pannus.. Today she has some discomfort in the right side of her large pannus because that is how she is rotated in bed and it has more dependent edema as compared to the left side of her large pannus. Progress of Wound: Slowly improving. - Physical Exam Vital Signs Temp Pulse Resp BP 98.6 F 121 H 18 149/80 H 08/02/18 10:45 08/02/18 10:45 08/02/18 10:45 08/02/18 10:45 Abdomen: Hernia - lower midline ventral hernia noted., - - massive abdominal panniculus with right sided panniculitis from the way she is lying in the bed. She is rotated toward the right leading to increased dependent edema. Right side area of panniculitis measures about 65 cm. Wound Measurements and Assessment WC - Nurse 1 - General Ulcer Measurement Start: 08/02/18 10:44 Freq: Status: Active Protocol: Activity Type Activity Date Activity User E-Sign Co-Sign Detail Recorded Client Recorded Date Recorded By Document 08/02/18 10:45 DV [id number] 08/02/18 10:55 DV 08/02/18 10:45 Wound Center Nurse 1 [Ulcer Assessment] #1 Right Pannis -Combined with other wound No -Current Size (cm) - Length 3.8 -Current Size (cm) - Width 25.0 -Current Size (cm) - Depth 1.8 -Total Square Cm 95.00 -Photo Taken Yes -Epithelialization None Present -Tunneling No -Undermining/Tunneling No -Circular Undermining No -Classification - Thickness Full Thickness without Exposed Support Structure -Exudate Amt Large (67-100%) -Exudate Type Serosanguineous -Wound Margin Distinct, Outline Attached -Granulation Amt Large (67-100%) -Granulation Quality [place] -Slough/Fibrin Yes -Necrosis Amt Large (67-100%) -Necrotic Tissue Type Adherent Slough -Structure Exposed N/A -Texture (Lyly-wound Skin Appearance) Assessed Scarring -Moisture (Lyly-wound Skin Appearance Assessed ) Weeping -Color (Lyly-wound Skin Appearance) Assessed Erythema -Temperature (Lyly-wound Skin No Abnormality Appearance) (Pt Warm) -Tenderness on Palpation (Lyly-wound No Skin Appearance) -Ulcer Cleansing Wound Cleanser -Foul Odor after Cleansing Yes -Anesthetic Used 5% Lidocaine Gel - Nurse 2 - General Ulcer CM Notes Start: 08/02/18 10:44 Freq: Status: Active Protocol: Activity Type Activity Date Activity User E-Sign Co-Sign Detail Recorded Client Recorded Date Recorded By Document 08/02/18 11:46 LOIS [id number] 08/02/18 11:47 08/02/18 11:46 Wound Center Nurse 2 [Procedure/Treatment] -Time 11:47 -Correct Patient Yes -Correct Side, Site, Position Yes -Correct Procedure Yes -Procedure Performed Yes -Type of Procedure Debridement -Clinical Debridement Subcutaneous -Post Debridement Size (cm) - Length 3.8 -Post Debridement Size (cm) - Width 25.1 -Post Debridement Size (cm) - Depth 1.8 -Total Square Cm 95.38 -Wound/Ulcer Outcome Not Healed -Ulcer Cleansing Rinsed/ Irrigated with Saline -Foul Odor after Cleansing No -Bioengineered Tissue No -Bleeding Controlled with Pressure -Treatment Response Procedure Tolerated Well [See Physician Procedure note for Specifics] Pain Scale: 0-10 Numeric [Pain] -Is Patient Pain Free? Yes Debridement Note Post-Debridement Measurements/Treatment - Nurse 2 - General Ulcer CM Notes Start: 08/02/18 10:44 Freq: Status: Active Protocol: Activity Type Activity Date Activity User E-Sign Co-Sign Detail Recorded Client Recorded Date Recorded By Document 08/02/18 11:46 LOIS [id number] 08/02/18 11:47 LOIS 08/02/18 11:46 Wound Center Nurse 2 #1 Right Pannis -Time 11:47 -Correct Patient Yes -Correct Side, Site, Position Yes -Correct Procedure Yes -Procedure Performed Yes -Type of Procedure Debridement -Clinical Debridement Subcutaneous -Post Debridement Size (cm) - Length 3.8 -Post Debridement Size (cm) - Width 25.1 -Post Debridement Size (cm) - Depth 1.8 -Total Square Cm 95.38 -Wound/Ulcer Outcome Not Healed -Ulcer Cleansing Rinsed/ Irrigated with Saline -Foul Odor after Cleansing No -Bioengineered Tissue No -Bleeding Controlled with Pressure -Treatment Response Procedure Tolerated Well Pain Scale: 0-10 Numeric Is Patient Pain Free? Yes Wound debrided: #1 Lower anterior abdominal wall. Laterality: Not Applicable Wound Grade/Stage: 3. Type of Debridement: Excisional debridement Anesthesia Used: 4% Lidocaine Solution Depth: Down to and including healthy tissue, in the subcutaneous layer Percentage of wound debrided: 100 Instrument Used: 7mm curette Tissue Removed: subcutaneous tissue. Severity: Fat Layer Exposed Amount of bleeding with debridement: Mild Bleeding Controlled with: Pressure Patient tolerated procedure well Assessment/Plan Assessment: 1. 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 2. 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 3. Borderline diabetes. 4. Abdominal wall skin crease intertrigo. 5. Morbid obesity. 6. Incisional hernia. 7. s/p surgical preparation lower anterior abdominal wall massive panniculus with excisional debridement nonhealing ulcer and skin and subcutaneous tissue for necrotizing soft tissue infection and panniculectomy (777 cm2). Plan: Continue Silver dressing changes daily. The right side of her large abdominal pannus has dependent edema and is at risk for another necrotizing infection. When she was in the hospital, it was discussed with her that she would need multiple panniculectomy procedures because of the risk of excising the massive panniculus all at once. Also the central portion would be excised last because of the presence of the hernia. At that time would need assistance from General Surgery for repair of the hernia. Will schedule the panniculectomy under general anesthesia with a surgical observation overnight stay in the hospital. The VAC will be applied the following day. Her Prealbumin from 05/12/18 was 21.1. Encourage nutritional supplementation with protein to help the healing process. Patient was informed of the risks and complications of the procedure including alternatives to surgery. These were discussed with her personally. She voices understanding and wishes to proceed. Followup 2 weeks.
== END 2018-08-04 23:59 ==
LOC: WC 10:06
PROVIDERS: Family Provider Student in an Organized Health Care Education/Training Program; PCP Student in an Organized Health Care Education/Training Program; Visit Provider Surgery
DX: L98.492 Non-pressure chronic ulcer of skin of other sites with fat layer exposed (principal); R73.09 Other abnormal glucose; E66.01 Morbid (severe) obesity due to excess calories; Z71.3 Dietary counseling and surveillance; L30.4 Erythema intertrigo; E65 Localized adiposity
CPT/HCPCS: 11042; 11045; 99213; G0463

== ENCOUNTER 2018-08-23 10:30 | Outpatient (RCR) | payer MEDICAID, SELFPAY ==
[2018-08-05 02:03] VITALS: BP 149/80; PULSE 121; RESP 18; TEMP 37
[2018-08-16 12:10] VITALS: BP 123/69; PULSE 115; RESP 16; TEMP 36.4
--- NOTE | 2018-08-16 22:00 | PCM.WC.PN ---
Type of Wound Date of Service: 08/16/18 Chief Complaint: Nonhealing ulcer lower anterior abdominal wall. History of Wound: Surgery 05/11/18 - Surgical preparation lower anterior abdominal wall massive panniculus with excisional debridement nonhealing ulcer and skin and subcutaneous tissue for necrotizing soft tissue infection and panniculectomy (777 cm2). Wound care - Silver. Operative culture - MRSE, Enterococcus faecalis, Methicillin resistant Staphylococcus hominis hominis, Prevotella melaninogenica, Anaerococcus prevotii, and Corynebacterium amycolatum. She was treated with Vancomycin and Clindamycin and has finished them. Prealbumin from 05/12/18 was 21.1. Encourage nutritional supplementation with protein to help the healing process. CT from 05/08/18 showed a lower midline ventral hernia with nonobstructed small bowel extending into the pannus.. Today she has some discomfort in the right side of her large pannus because that is how she is rotated in bed and it has more dependent edema as compared to the left side of her large pannus. Progress of Wound: Slowly improving. - Physical Exam Vital Signs Temp Pulse Resp BP 97.5 F L 115 H 16 123/69 H 08/16/18 12:10 08/16/18 12:10 08/16/18 12:10 08/16/18 12:10 Abdomen: Hernia - lower midline ventral hernia noted., - - massive abdominal panniculus with right sided panniculitis from the way she is lying in the bed. She is rotated toward the right leading to increased dependent edema. Right side area of panniculitis measures about 65 cm. Wound Measurements and Assessment WC - Nurse 1 - General Ulcer Measurement Start: 08/16/18 12:01 Freq: Status: Active Protocol: Activity Type Activity Date Activity User E-Sign Co-Sign Detail Recorded Client Recorded Date Recorded By Document 08/16/18 12:10 [facility] [id number] 08/16/18 12:11 [facility] 08/16/18 12:10 Wound Center Nurse 1 [Ulcer Assessment] #1 Right Pannis -Combined with other wound No -Current Size (cm) - Length 5 -Current Size (cm) - Width 21.1 -Current Size (cm) - Depth 2 -Total Square Cm 105.5 -Photo Taken No -Epithelialization Small 1-33% -Tunneling No -Undermining/Tunneling No -Circular Undermining No -Exudate Amt Large (67-100%) -Exudate Type Serosanguineous -Wound Margin Thickened -Granulation Amt Large (67-100%) -Granulation Quality [place] -Slough/Fibrin Yes -Necrosis Amt Small (1-33%) -Necrotic Tissue Type Adherent Slough -Texture (Lyly-wound Skin Appearance) Scarring -Moisture (Lyly-wound Skin Appearance Assessed ) -Color (Lyly-wound Skin Appearance) Assessed -Temperature (Lyly-wound Skin No Abnormality Appearance) (Pt Warm) -Tenderness on Palpation (Lyly-wound No Skin Appearance) -Ulcer Cleansing Wound Cleanser -Foul Odor after Cleansing No -Anesthetic Used 4% Lidocaine Solution - Nurse 2 - General Ulcer CM Notes Start: 08/16/18 12:01 Freq: Status: Active Protocol: Activity Type Activity Date Activity User E-Sign Co-Sign Detail Recorded Client Recorded Date Recorded By Document 08/16/18 12:29 [email or web address] 08/16/18 12:30 08/16/18 12:29 Wound Center Nurse 2 [Procedure/Treatment] -Time 12:29 -Correct Patient Yes -Correct Side, Site, Position Yes -Correct Procedure Yes -Procedure Performed Yes -Type of Procedure Debridement -Clinical Debridement Subcutaneous -Post Debridement Size (cm) - Length 5 -Post Debridement Size (cm) - Width 21.2 -Post Debridement Size (cm) - Depth 2.0 -Total Square Cm 106.0 -Wound/Ulcer Outcome Not Healed -Ulcer Cleansing Rinsed/ Irrigated with Saline -Foul Odor after Cleansing No -Bioengineered Tissue No -Bleeding Controlled with Pressure -Treatment Response Procedure Tolerated Well [See Physician Procedure note for Specifics] Pain Scale: 0-10 Numeric [Pain] -Is Patient Pain Free? Yes Debridement Note Post-Debridement Measurements/Treatment - Nurse 2 - General Ulcer CM Notes Start: 08/16/18 12:01 Freq: Status: Active Protocol: Activity Type Activity Date Activity User E-Sign Co-Sign Detail Recorded Client Recorded Date Recorded By Document 08/16/18 12:29 LOIS [id number] 08/16/18 12:30 08/16/18 12:29 Wound Center Nurse 2 #1 Right Pannis -Time 12:29 -Correct Patient Yes -Correct Side, Site, Position Yes -Correct Procedure Yes -Procedure Performed Yes -Type of Procedure Debridement -Clinical Debridement Subcutaneous -Post Debridement Size (cm) - Length 5 -Post Debridement Size (cm) - Width 21.2 -Post Debridement Size (cm) - Depth 2.0 -Total Square Cm 106.0 -Wound/Ulcer Outcome Not Healed -Ulcer Cleansing Rinsed/ Irrigated with Saline -Foul Odor after Cleansing No -Bioengineered Tissue No -Bleeding Controlled with Pressure -Treatment Response Procedure Tolerated Well Pain Scale: 0-10 Numeric Is Patient Pain Free? Yes Wound debrided: #1 Lower anterior abdominal wall. Laterality: Not Applicable Wound Grade/Stage: 3. Type of Debridement: Excisional debridement Anesthesia Used: 4% Lidocaine Solution Depth: Down to and including healthy tissue, in the subcutaneous layer Percentage of wound debrided: 100 Instrument Used: 7mm curette Tissue Removed: subcutaneous tissue. Severity: Fat Layer Exposed Amount of bleeding with debridement: Mild Bleeding Controlled with: Pressure Patient tolerated procedure well Assessment/Plan Assessment: 1. 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 2. 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 3. Borderline diabetes. 4. Abdominal wall skin crease intertrigo. 5. Morbid obesity. 6. Incisional hernia. 7. s/p surgical preparation lower anterior abdominal wall massive panniculus with excisional debridement nonhealing ulcer and skin and subcutaneous tissue for necrotizing soft tissue infection and panniculectomy (777 cm2). Plan: Continue Silver dressing changes daily. The right side of her large abdominal pannus has dependent edema and is at risk for another necrotizing infection. When she was in the hospital, it was discussed with her that she would need multiple panniculectomy procedures because of the risk of excising the massive panniculus all at once. Also the central portion would be excised last because of the presence of the hernia. At that time would need assistance from General Surgery for repair of the hernia. Will schedule the panniculectomy under general anesthesia with a surgical observation overnight stay in the hospital. The VAC will be applied the following day. Her Prealbumin from 05/12/18 was 21.1. Encourage nutritional supplementation with protein to help the healing process. Patient was informed of the risks and complications of the procedure including alternatives to surgery. These were discussed with her personally. She voices understanding and wishes to proceed. Followup 2 weeks.
--- NOTE | 2018-08-18 22:00 | PN.PCM_ITS ---
Type of Wound Date of Service: 08/16/18 Chief Complaint: Nonhealing ulcer lower anterior abdominal wall. History of Wound: Surgery 05/11/18 - Surgical preparation lower anterior abdominal wall massive panniculus with excisional debridement nonhealing ulcer and skin and subcutaneous tissue for necrotizing soft tissue infection and panniculectomy (777 cm2). Wound care - Silver. Operative culture - MRSE, Enterococcus faecalis, Methicillin resistant Staphylococcus hominis hominis, Prevotella roger ninogenica, Anaerococcus prevotii, and Corynebacterium amycolatum. She was treated with Vancomycin and Clindamycin and has finished them. Prealbumin from 05/12/18 was 21.1. Encourage nutritional supplementation with protein to help the healing process. CT from 05/08/18 showed a lower midline ventral hernia with nonobstructed small bowel extending into the pannus.. Today she has some discomfort in the right side of her large pannus because that is how she is rotated in bed and it has more dependent edema as compared to the left side of her large pannus. Progress of Wound: Slowly improving. - Physical Exam Vital Signs Temp Pulse Resp BP 97.5 F L 115 H 16 123/69 H 08/16/18 12:10 08/16/18 12:10 08/16/18 12:10 08/16/18 12:10 Abdomen: Hernia - lower midline ventral hernia noted., - - massive abdominal panniculus with right sided panniculitis from the way she is lying in the bed. She is rotated toward the right leading to increased dependent edema. Right side area of panniculitis measures about 65 cm. Wound Measurements and Assessment WC - Nurse 1 - General Ulcer Measurement Start: 08/16/18 12:01 Freq: Status: Active Protocol: Activity Type Activity Date Activity User E-Sign Co-Sign Detail Recorded Client Recorded Date Recorded By Document 08/16/18 12:10 [facility] [id number] 08/16/18 12:11 [facility] 08/16/18 12:10 Wound Center Nurse 1 [Ulcer Assessment] #1 Right Pannis -Combined with other wound No -Current Size (cm) - Length 5 -Current Size (cm) - Width 21.1 -Current Size (cm) - Depth 2 -Total Square Cm 105.5 -Photo Taken No -Epithelialization Small 1-33% -Tunneling No -Undermining/Tunneling No -Circular Undermining No -Exudate Amt Large (67-100%) -Exudate Type Serosanguineous -Wound Margin Thickened -Granulation Amt Large (67-100%) -Granulation Quality [place] -Slough/Fibrin Yes -Necrosis Amt Small (1-33%) -Necrotic Tissue Type Adherent Slough -Texture (Lyly-wound Skin Appearance) Scarring -Moisture (Lyly-wound Skin Appearance Assessed ) -Color (Lyly-wound Skin Appearance) Assessed -Temperature (Lyly-wound Skin No Abnormality Appearance) (Pt Warm) -Tenderness on Palpation (Lyly-wound No Skin Appearance) -Ulcer Cleansing Wound Cleanser -Foul Odor after Cleansing No -Anesthetic Used 4% Lidocaine Solution - Nurse 2 - General Ulcer CM Notes Start: 08/16/18 12:01 Freq: Status: Active Protocol: Activity Type Activity Date Activity User E-Sign Co-Sign Detail Recorded Client Recorded Date Recorded By Document 08/16/18 12:29 LOIS [id number] 08/16/18 12:30 08/16/18 12:29 Wound Center Nurse 2 [Procedure/Treatment] -Time 12:29 -Correct Patient Yes -Correct Side, Site, Position Yes -Correct Procedure Yes -Procedure Performed Yes -Type of Procedure Debridement -Clinical Debridement Subcutaneous -Post Debridement Size (cm) - Length 5 -Post Debridement Size (cm) - Width 21.2 -Post Debridement Size (cm) - Depth 2.0 -Total Square Cm 106.0 -Wound/Ulcer Outcome Not Healed -Ulcer Cleansing Rinsed/ Irrigated with Saline -Foul Odor after Cleansing No -Bioengineered Tissue No -Bleeding Controlled with Pressure -Treatment Response Procedure Tolerated Well [See Physician Procedure note for Specifics] Pain Scale: 0-10 Numeric [Pain] -Is Patient Pain Free? Yes Debridement Note Post-Debridement Measurements/Treatment - Nurse 2 - General Ulcer CM Notes Start: 08/16/18 12:01 Freq: Status: Active Protocol: Activity Type Activity Date Activity User E-Sign Co-Sign Detail Recorded Client Recorded Date Recorded By Document 08/16/18 12:29 LOIS [id number] 08/16/18 12:30 LOIS 08/16/18 12:29 Wound Center Nurse 2 #1 Right Pannis -Time 12:29 -Correct Patient Yes -Correct Side, Site, Position Yes -Correct Procedure Yes -Procedure Performed Yes -Type of Procedure Debridement -Clinical Debridement Subcutaneous -Post Debridement Size (cm) - Length 5 -Post Debridement Size (cm) - Width 21.2 -Post Debridement Size (cm) - Depth 2.0 -Total Square Cm 106.0 -Wound/Ulcer Outcome Not Healed -Ulcer Cleansing Rinsed/ Irrigated with Saline -Foul Odor after Cleansing No -Bioengineered Tissue No -Bleeding Controlled with Pressure -Treatment Response Procedure Tolerated Well Pain Scale: 0-10 Numeric Is Patient Pain Free? Yes Wound debrided: #1 Lower anterior abdominal wall. Laterality: Not Applicable Wound Grade/Stage: 3. Type of Debridement: Excisional debridement Anesthesia Used: 4% Lidocaine Solution Depth: Down to and including healthy tissue, in the subcutaneous layer Percentage of wound debrided: 100 Instrument Used: 7mm curette Tissue Removed: subcutaneous tissue. Severity: Fat Layer Exposed Amount of bleeding with debridement: Mild Bleeding Controlled with: Pressure Patient tolerated procedure well Assessment/Plan Assessment: 1. 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 2. 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 3. Borderline diabetes. 4. Abdominal wall skin crease intertrigo. 5. Morbid obesity. 6. Incisional hernia. 7. s/p surgical preparation lower anterior abdominal wall massive panniculus with excisional debridement nonhealing ulcer and skin and subcutaneous tissue for necrotizing soft tissue infection and panniculectomy (777 cm2). Plan: Continue Silver dressing changes daily. The right side of her large abdominal pannus has dependent edema and is at risk for another necrotizing infection. When she was in the hospital, it was discussed with her that she would need multiple panniculectomy procedures because of the risk of excising the massive panniculus all at once. Also the central portion would be excised last because of the presence of the hernia. At that time would need assistance from General Surgery for repair of the hernia. Will schedule the panniculectomy under general anesthesia with a surgical observation overnight stay in the hospital. The VAC will be applied the following day. Her Prealbumin from 05/12/18 was 21.1. Encourage nutritional supplementation with protein to help the healing process. Patient was informed of the risks and complications of the procedure including alternatives to surgery. These were discussed with her personally. She voices understanding and wishes to proceed. Followup 2 weeks.
[2018-08-23 10:39] VITALS: BP 121/60; PULSE 92; RESP 20; TEMP 36.6
--- NOTE | 2018-08-23 17:32 | PCM.WC.PN ---
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 Status: Chronic Current Visit: Yes Code(s): L98.492 - Non-pressure chronic ulcer of skin of other sites with fat layer exposed (2) Erythema intertrigo Status: Chronic Current Visit: Yes Code(s): L30.4 - Erythema intertrigo Comment: abdominal wall skin crease intertrigo (3) Abdominal panniculus, symptomatic Status: Chronic Current Visit: Yes Code(s): E65 - Localized adiposity (4) Obesity, Class III, BMI 40-49.9 (morbid obesity) Status: Chronic Current Visit: Yes Code(s): E66.01 - Morbid (severe) obesity due to excess calories Type of Wound Date of Service: 08/23/18 Chief Complaint: Nonhealing ulcer lower anterior abdominal wall. History of Wound: Surgery 05/11/18 - Surgical preparation lower anterior abdominal wall massive panniculus with excisional debridement nonhealing ulcer and skin and subcutaneous tissue for necrotizing soft tissue infection and panniculectomy (777 cm2). Wound care - Silver. Operative culture - MRSE, Enterococcus faecalis, Methicillin resistant Staphylococcus hominis hominis, Prevotella melaninogenica, Anaerococcus prevotii, and Corynebacterium amycolatum. She was treated with Vancomycin and Clindamycin and has finished them. Prealbumin from 05/12/18 was 21.1. Encourage nutritional supplementation with protein to help the healing process. CT from 05/08/18 showed a lower midline ventral hernia with nonobstructed small bowel extending into the pannus.. Today she has some discomfort in the right side of her large pannus because that is how she is rotated in bed and it has more dependent edema as compared to the left side of her large pannus. Progress of Wound: Slowly improving. - Physical Exam Vital Signs Temp Pulse Resp BP 97.8 F 92 20 H 121/60 H 08/23/18 10:39 08/23/18 10:39 08/23/18 10:39 08/23/18 10:39 General: Alert, Oriented x3, Cooperative HEENT: Atraumatic Extremities: Diminished Peripheral Pulses, Edema Skin: Ulcer/ Wound - Right bakari Panus ulcer Wound Measurements and Assessment WC - Nurse 1 - General Ulcer Measurement Start: 08/16/18 12:01 Freq: Status: Active Protocol: Activity Type Activity Date Activity User E-Sign Co-Sign Detail Recorded Client Recorded Date Recorded By Document 08/23/18 10:39 DL [id number] 08/23/18 10:54 DL 08/23/18 10:39 Wound Center Nurse 1 [Ulcer Assessment] #1 Right Pannis -Current Size (cm) - Length 4 -Current Size (cm) - Width 22.5 -Current Size (cm) - Depth 0.5 -Total Square Cm 90.0 -Photo Taken No -Exudate Amt Medium (34-66%) -Exudate Type Serosanguineous -Wound Margin Distinct, Outline Attached -Granulation Amt Large (67-100%) -Granulation Quality Red -Necrosis Amt Small (1-33%) -Necrotic Tissue Type Adherent Slough -Structure Exposed N/A -Texture (Lyly-wound Skin Appearance) Scarring -Moisture (Lyly-wound Skin Appearance Maceration ) -Color (Lyly-wound Skin Appearance) Rubor -Temperature (Lyly-wound Skin No Abnormality Appearance) (Pt Warm) -Ulcer Cleansing Wound Cleanser -Foul Odor after Cleansing No -Anesthetic Used 4% Lidocaine Solution WC - Nurse 2 - General Ulcer CM Notes Start: 08/16/18 12:01 Freq: Status: Active Protocol: Activity Type Activity Date Activity User E-Sign Co-Sign Detail Recorded Client Recorded Date Recorded By Document 08/23/18 11:13 [id number] 08/23/18 11:14 08/23/18 11:13 Wound Center Nurse 2 [Procedure/Treatment] -Time 11:13 -Correct Patient Yes -Correct Side, Site, Position Yes -Correct Procedure Yes -Procedure Performed Yes -Type of Procedure Debridement -Clinical Debridement Subcutaneous -Post Debridement Size (cm) - Length 4 -Post Debridement Size (cm) - Width 22.6 -Post Debridement Size (cm) - Depth 0.5 -Total Square Cm 90.4 -Wound/Ulcer Outcome Not Healed -Ulcer Cleansing Rinsed/ Irrigated with Saline -Foul Odor after Cleansing No -Bioengineered Tissue No -Bleeding Controlled with Pressure -Treatment Response Procedure Tolerated Well [See Physician Procedure note for Specifics] Pain Scale: 0-10 Numeric [Pain] -Is Patient Pain Free? Yes Musculoskeletal: No Tenderness to Palpation of Joints or Extremities Neurological: Neuro grossly intact Psych/Mental Status: Normal Affect, Appropriate Debridement Note Post-Debridement Measurements/Treatment WC - Nurse 2 - General Ulcer CM Notes Start: 08/16/18 12:01 Freq: Status: Active Protocol: Activity Type Activity Date Activity User E-Sign Co-Sign Detail Recorded Client Recorded Date Recorded By Document 08/16/18 12:29 [id number] 08/16/18 12:30 Document 08/23/18 11:13 [id number] 08/23/18 11:14 08/16/18 08/23/18 12:29 11:13 Wound Center Nurse 2 #1 Right Pannis -Time 12:29 11:13 -Correct Patient Yes Yes -Correct Side, Site, Position Yes Yes -Correct Procedure Yes Yes -Procedure Performed Yes Yes -Type of Procedure Debridement Debridement -Clinical Debridement Subcutaneous Subcutaneous -Post Debridement Size (cm) - Length 5 4 -Post Debridement Size (cm) - Width 21.2 22.6 -Post Debridement Size (cm) - Depth 2.0 0.5 -Total Square Cm 106.0 90.4 -Wound/Ulcer Outcome Not Healed Not Healed -Ulcer Cleansing Rinsed/ Rinsed/ Irrigated with Irrigated with Saline Saline -Foul Odor after Cleansing No No -Bioengineered Tissue No No -Bleeding Controlled with Pressure Pressure -Treatment Response Procedure Procedure Tolerated Well Tolerated Well Pain Scale: 0-10 Numeric Is Patient Pain Free? Yes Yes Wound debrided: Right sided panus fold Laterality: Right Type of Debridement: Excisional debridement Anesthesia Used: 4% Lidocaine Solution Depth: Down to and including healthy tissue, in the subcutaneous layer Percentage of wound debrided: 100 Instrument Used: 3mm curette Tissue Removed: Subcutaneous tissue and slough Severity: Fat Layer Exposed Amount of bleeding with debridement: Mild Bleeding Controlled with: Pressure Patient tolerated procedure well Assessment/Plan Active Problems Erythema intertrigo (Chronic) abdominal wall skin crease intertrigo Abdominal panniculus, symptomatic (Chronic) Skin ulcer of abdominal wall with fat layer exposed (Chronic) Obesity, Class III, BMI 40-49.9 (morbid obesity) (Chronic) Assessment: 1. 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 2. 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 3. Borderline diabetes. 4. Abdominal wall skin crease intertrigo. 5. Morbid obesity. 6. Incisional hernia. 7. s/p surgical preparation lower anterior abdominal wall massive panniculus with excisional debridement nonhealing ulcer and skin and subcutaneous tissue for necrotizing soft tissue infection and panniculectomy (777 cm2). Plan: Continue Silver dressing changes daily. The right side of her large abdominal pannus has dependent edema and is at risk for another necrotizing infection. When she was in the hospital, it was discussed with her that she would need multiple panniculectomy procedures because of the risk of excising the massive panniculus all at once. Also the central portion would be excised last because of the presence of the hernia. At that time would need assistance from General Surgery for repair of the hernia. Will schedule the panniculectomy under general anesthesia with a surgical observation overnight stay in the hospital. The VAC will be applied the following day. Her Prealbumin from 05/12/18 was 21.1. Encourage nutritional supplementation with protein to help the healing process. Patient was informed of the risks and complications of the procedure including alternatives to surgery. These were discussed with her personally. She voices understanding and wishes to proceed. Followup 2 weeks. Code Visit 111xxx-113xx: 24547 Josephine subq tissue 20 sq cm/< Add On Codes: [id number] Josephine subq tissue add-on - x4
--- NOTE | 2018-08-24 11:36 | PN.PCM_ITS ---
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 Status: Chronic Current Visit: Yes Code(s): L98.492 - Non-pressure chronic ulcer of skin of other sites with fat layer exposed (2) Erythema intertrigo Status: Chronic Current Visit: Yes Code(s): L30.4 - Erythema intertrigo Comment: abdominal wall skin crease intertrigo (3) Abdominal panniculus, symptomatic Status: Chronic Current Visit: Yes Code(s): E65 - Localized adiposity (4) Obesity, Class III, BMI 40-49.9 (morbid obesity) Status: Chronic Current Visit: Yes Code(s): E66.01 - Morbid (severe) obesity due to excess calories Type of Wound Date of Service: 08/23/18 Chief Complaint: Nonhealing ulcer lower anterior abdominal wall. History of Wound: Surgery 05/11/18 - Surgical preparation lower anterior abdominal wall massive panniculus with excisional debridement nonhealing ulcer and skin and subcutaneous tissue for necrotizing soft tissue infection and panniculectomy (777 cm2). Wound care - Silver. Operative culture - MRSE, Enterococcus faecalis, Methicillin resistant Staphylococcus hominis hominis, Prevotella melaninogenica, Anaerococcus prevotii, and Corynebacterium amycolatum. She was treated with Vancomycin and Clindamycin and has finished them. Prealbumin from 05/12/18 was 21.1. Encourage nutritional supplementation with protein to help the healing process. CT from 05/08/18 showed a lower midline ventral hernia with nonobstructed small bowel extending into the pannus.. Today she has some discomfort in the right side of her large pannus because that is how she is rotated in bed and it has more dependent edema as compared to the left side of her large pannus. Progress of Wound: Slowly improving. - Physical Exam Vital Signs Temp Pulse Resp BP 97.8 F 92 20 H 121/60 H 08/23/18 10:39 08/23/18 10:39 08/23/18 10:39 08/23/18 10:39 General: Alert, Oriented x3, Cooperative HEENT: Atraumatic Extremities: Diminished Peripheral Pulses, Edema Skin: Ulcer/ Wound - Right bakari Panus ulcer Wound Measurements and Assessment WC - Nurse 1 - General Ulcer Measurement Start: 08/16/18 12:01 Freq: Status: Active Protocol: Activity Type Activity Date Activity User E-Sign Co-Sign Detail Recorded Client Recorded Date Recorded By Document 08/23/18 10:39 DL [id number] 08/23/18 10:54 DL 08/23/18 10:39 Wound Center Nurse 1 [Ulcer Assessment] #1 Right Pannis -Current Size (cm) - Length 4 -Current Size (cm) - Width 22.5 -Current Size (cm) - Depth 0.5 -Total Square Cm 90.0 -Photo Taken No -Exudate Amt Medium (34-66%) -Exudate Type Serosanguineous -Wound Margin Distinct, Outline Attached -Granulation Amt Large (67-100%) -Granulation Quality Red -Necrosis Amt Small (1-33%) -Necrotic Tissue Type Adherent Slough -Structure Exposed N/A -Texture (Lyly-wound Skin Appearance) Scarring -Moisture (Lyly-wound Skin Appearance Maceration ) -Color (Lyly-wound Skin Appearance) Rubor -Temperature (Lyly-wound Skin No Abnormality Appearance) (Pt Warm) -Ulcer Cleansing Wound Cleanser -Foul Odor after Cleansing No -Anesthetic Used 4% Lidocaine Solution WC - Nurse 2 - General Ulcer CM Notes Start: 08/16/18 12:01 Freq: Status: Active Protocol: Activity Type Activity Date Activity User E-Sign Co-Sign Detail Recorded Client Recorded Date Recorded By Document 08/23/18 11:13 [id number] 08/23/18 11:14 08/23/18 11:13 Wound Center Nurse 2 [Procedure/Treatment] -Time 11:13 -Correct Patient Yes -Correct Side, Site, Position Yes -Correct Procedure Yes -Procedure Performed Yes -Type of Procedure Debridement -Clinical Debridement Subcutaneous -Post Debridement Size (cm) - Length 4 -Post Debridement Size (cm) - Width 22.6 -Post Debridement Size (cm) - Depth 0.5 -Total Square Cm 90.4 -Wound/Ulcer Outcome Not Healed -Ulcer Cleansing Rinsed/ Irrigated with Saline -Foul Odor after Cleansing No -Bioengineered Tissue No -Bleeding Controlled with Pressure -Treatment Response Procedure Tolerated Well [See Physician Procedure note for Specifics] Pain Scale: 0-10 Numeric [Pain] -Is Patient Pain Free? Yes Musculoskeletal: No Tenderness to Palpation of Joints or Extremities Neurological: Neuro grossly intact Psych/Mental Status: Normal Affect, Appropriate Debridement Note Post-Debridement Measurements/Treatment WC - Nurse 2 - General Ulcer CM Notes Start: 08/16/18 12:01 Freq: Status: Active Protocol: Activity Type Activity Date Activity User E-Sign Co-Sign Detail Recorded Client Recorded Date Recorded By Document 08/16/18 12:29 [id number] 08/16/18 12:30 Document 08/23/18 11:13 [id number] 08/23/18 11:14 08/16/18 08/23/18 12:29 11:13 Wound Center Nurse 2 #1 Right Pannis -Time 12:29 11:13 -Correct Patient Yes Yes -Correct Side, Site, Position Yes Yes -Correct Procedure Yes Yes -Procedure Performed Yes Yes -Type of Procedure Debridement Debridement -Clinical Debridement Subcutaneous Subcutaneous -Post Debridement Size (cm) - Length 5 4 -Post Debridement Size (cm) - Width 21.2 22.6 -Post Debridement Size (cm) - Depth 2.0 0.5 -Total Square Cm 106.0 90.4 -Wound/Ulcer Outcome Not Healed Not Healed -Ulcer Cleansing Rinsed/ Rinsed/ Irrigated with Irrigated with Saline Saline -Foul Odor after Cleansing No No -Bioengineered Tissue No No -Bleeding Controlled with Pressure Pressure -Treatment Response Procedure Procedure Tolerated Well Tolerated Well Pain Scale: 0-10 Numeric Is Patient Pain Free? Yes Yes Wound debrided: Right sided panus fold Laterality: Right Type of Debridement: Excisional debridement Anesthesia Used: 4% Lidocaine Solution Depth: Down to and including healthy tissue, in the subcutaneous layer Percentage of wound debrided: 100 Instrument Used: 3mm curette Tissue Removed: Subcutaneous tissue and slough Severity: Fat Layer Exposed Amount of bleeding with debridement: Mild Bleeding Controlled with: Pressure Patient tolerated procedure well Assessment/Plan Active Problems Erythema intertrigo (Chronic) abdominal wall skin crease intertrigo Abdominal panniculus, symptomatic (Chronic) Skin ulcer of abdominal wall with fat layer exposed (Chronic) Obesity, Class III, BMI 40-49.9 (morbid obesity) (Chronic) Assessment: 1. 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 2. 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 3. Borderline diabetes. 4. Abdominal wall skin crease intertrigo. 5. Morbid obesity. 6. Incisional hernia. 7. s/p surgical preparation lower anterior abdominal wall massive panniculus with excisional debridement nonhealing ulcer and skin and subcutaneous tissue for necrotizing soft tissue infection and panniculectomy (777 cm2). Plan: Continue Silver dressing changes daily. The right side of her large abdominal pannus has dependent edema and is at risk for another necrotizing infection. When she was in the hospital, it was discussed with her that she would need multiple panniculectomy procedures because of the risk of excising the massive panniculus all at once. Also the central portion would be excised last because of the presence of the hernia. At that time would need assistance from General Surgery for repair of the hernia. Will schedule the panniculectomy under general anesthesia with a surgical observation overnight stay in the hospital. The VAC will be applied the following day. Her Prealbumin from 05/12/18 was 21.1. Encourage nutritional supplementation with protein to help the healing process. Patient was informed of the risks and complications of the procedure including alternatives to surgery. These were discussed with her personally. She voices understanding and wishes to proceed. Followup 2 weeks. Code Visit 111xxx-113xx: [id number] Josephine subq tissue 20 sq cm/< Add On Codes: [id number] Josephine subq tissue add-on - x4
== END 2018-09-03 23:59 ==
LOC: WC 10:30
PROVIDERS: Family Provider Student in an Organized Health Care Education/Training Program; PCP Student in an Organized Health Care Education/Training Program; Visit Provider Surgery
DX: L98.492 Non-pressure chronic ulcer of skin of other sites with fat layer exposed (principal); R73.09 Other abnormal glucose; E66.01 Morbid (severe) obesity due to excess calories; E65 Localized adiposity; L30.4 Erythema intertrigo
CPT/HCPCS: 11042; 11045

== ENCOUNTER 2018-09-06 08:31 | Outpatient (RCR) | payer MEDICAID, SELFPAY ==
[2018-09-04 01:38] VITALS: BP 121/60; PULSE 92; RESP 20; TEMP 36.6
[2018-09-06 10:09] VITALS: BMI 81.8
--- NOTE | 2018-09-06 11:47 | PN.PCM_ITS ---
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 Status: Chronic Current Visit: Yes Code(s): L98.492 - Non-pressure chronic ulcer of skin of other sites with fat layer exposed (2) Panniculitis Status: Chronic Current Visit: Yes Code(s): M79.3 - Panniculitis, unspecified (3) Erythema intertrigo Status: Chronic Current Visit: Yes Code(s): L30.4 - Erythema intertrigo Comment: abdominal wall skin crease intertrigo (4) Super-super obese Status: Chronic Current Visit: Yes Code(s): E66.9 - Obesity, unspecified (5) Prediabetes Status: Chronic Current Visit: Yes Code(s): R73.03 - Prediabetes Type of Wound Date of Service: 09/06/18 Chief Complaint: Nonhealing ulcer lower anterior abdominal wall. History of Wound: Surgery 05/11/18 - Surgical preparation lower anterior abdominal wall massive panniculus with excisional debridement nonhealing ulcer and skin and subcutaneous tissue for necrotizing soft tissue infection and panniculectomy (777 cm2). Wound care - Silver. Operative culture - MRSE, Enterococcus faecalis, Methicillin resistant Staphylococcus hominis hominis, Prevotella melaninogenica, Anaerococcus prevotii, and Corynebacterium amycolatum. She was treated with Vancomycin and Clindamycin and has finished them. Prealbumin from 05/12/18 was 21.1. Encourage nutritional supplementation with protein to help the healing process. CT from 05/08/18 showed a lower midline ventral hernia with nonobstructed small bowel extending into the pannus.. Today she has some discomfort in the right side of her large pannus because that is how she is rotated in bed and it has more dependent edema as compared to the left side of her large pannus. Progress of Wound: Slowly improving. - Physical Exam Vital Signs Temp Pulse Resp BP 97.8 F 92 20 H 121/60 H 09/04/18 01:38 09/04/18 01:38 09/04/18 01:38 09/04/18 01:38 General: Alert, Oriented x3, Cooperative HEENT: Atraumatic Oral: Moist Mucosa Lungs: Normal air movement Cardiovascular: Regular rate Abdomen: Obese Extremities: Capillary Refill Less than 3 Seconds, Edema Skin: Ulcer/ Wound - Right abdomen under large panniculus. Has intertrigo pre sent also Wound Measurements and Assessment IRAIS - Nurse 1 - General Ulcer Measurement Start: 09/06/18 10:09 Freq: Status: Active Protocol: Activity Type Activity Date Activity User E-Sign Co-Sign Detail Recorded Client Recorded Date Recorded By Document 09/06/18 10:09 NORMA [id number] 09/06/18 10:16 NORMA 09/06/18 10:09 Wound Center Nurse 1 [Ulcer Assessment] #1 Right Pannis -Current Size (cm) - Length 3.4 -Current Size (cm) - Width 20.3 -Current Size (cm) - Depth 0.3 -Total Square Cm 69.02 -Photo Taken No -Epithelialization Small 1-33% -Tunneling No -Undermining/Tunneling No -Circular Undermining No -Classification - Thickness Full Thickness without Exposed Support Structure -Exudate Amt Large (67-100%) -Exudate Type Serosanguineous -Wound Margin Flat & Intact -Granulation Amt Large (67-100%) -Granulation Quality Red -Slough/Fibrin Yes -Necrosis Amt Medium (34-66%) -Necrotic Tissue Type Adherent Slough -Structure Exposed None/Limited to Skin Breakdown -Texture (Lyly-wound Skin Appearance) Assessed Localized Edema Scarring -Moisture (Lyly-wound Skin Appearance Assessed ) Weeping -Color (Lyly-wound Skin Appearance) Assessed Erythema -Temperature (Lyly-wound Skin No Abnormality Appearance) (Pt Warm) -Tenderness on Palpation (Lyly-wound No Skin Appearance) -Ulcer Cleansing soap -Foul Odor after Cleansing No -Anesthetic Used 4% Lidocaine Solution IRAIS - Nurse 2 - General Ulcer CM Notes Start: 09/06/18 10:09 Freq: Status: Active Protocol: Activity Type Activity Date Activity User E-Sign Co-Sign Detail Recorded Client Recorded Date Recorded By Document 09/06/18 10:52 LOIS [id number] 09/06/18 10:53 LOIS 09/06/18 10:52 Wound Center Nurse 2 [Procedure/Treatment] -Time 10:52 -Correct Patient Yes -Correct Side, Site, Position Yes -Correct Procedure Yes -Procedure Performed Yes -Type of Procedure Debridement -Clinical Debridement Subcutaneous -Post Debridement Size (cm) - Length 3.2 -Post Debridement Size (cm) - Width 21.4 -Post Debridement Size (cm) - Depth 0.3 -Total Square Cm 68.48 -Wound/Ulcer Outcome Not Healed -Ulcer Cleansing Rinsed/ Irrigated with Saline -Foul Odor after Cleansing No -Bioengineered Tissue No -Bleeding Controlled with Pressure -Offloading No [See Physician Procedure note for Specifics] Pain Scale: 0-10 Numeric [Pain] -Is Patient Pain Free? Yes Musculoskeletal: No Tenderness to Palpation of Joints or Extremities Neurological: Neuro grossly intact Psych/Mental Status: Normal Affect, Appropriate Debridement Note Post-Debridement Measurements/Treatment WC - Nurse 2 - General Ulcer CM Notes Start: 09/06/18 10:09 Freq: Status: Active Protocol: Activity Type Activity Date Activity User E-Sign Co-Sign Detail Recorded Client Recorded Date Recorded By Document 09/06/18 10:52 LOIS [id number] 09/06/18 10:53 LOIS 09/06/18 10:52 Wound Center Nurse 2 #1 Right Pannis -Time 10:52 -Correct Patient Yes -Correct Side, Site, Position Yes -Correct Procedure Yes -Procedure Performed Yes -Type of Procedure Debridement -Clinical Debridement Subcutaneous -Post Debridement Size (cm) - Length 3.2 -Post Debridement Size (cm) - Width 21.4 -Post Debridement Size (cm) - Depth 0.3 -Total Square Cm 68.48 -Wound/Ulcer Outcome Not Healed -Ulcer Cleansing Rinsed/ Irrigated with Saline -Foul Odor after Cleansing No -Bioengineered Tissue No -Bleeding Controlled with Pressure -Offloading No Pain Scale: 0-10 Numeric Is Patient Pain Free? Yes Wound debrided: Right lower abdomen under pannus Laterality: Right Type of Debridement: Excisional debridement Anesthesia Used: 4% Lidocaine Solution Depth: Down to and including healthy tissue, in the subcutaneous layer Percentage of wound debrided: 100 Instrument Used: 3mm curette Tissue Removed: Subcutaneous tissue and slough Severity: Limited To Skin Breakdown Amount of bleeding with debridement: Mild Bleeding Controlled with: Pressure Patient tolerated procedure well Assessment/Plan Active Problems Erythema intertrigo (Chronic) abdominal wall skin crease intertrigo Panniculitis (Chronic) Skin ulcer of abdominal wall with fat layer exposed (Chronic) Super-super obese (Chronic) Prediabetes (Chronic) Assessment: 1. 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 2. 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 3. Borderline diabetes. 4. Abdominal wall skin crease intertrigo. 5. Morbid obesity. 6. Incisional hernia. 7. s/p surgical preparation lower anterior abdominal wall massive panniculus with excisional debridement nonhealing ulcer and skin and subcutaneous tissue for necrotizing soft tissue infection and panniculectomy (777 cm2). Plan: Continue Silver dressing changes daily. The right side of her large abdominal pannus has dependent edema and is at risk for another necrotizing infection. She is being discharged from [facility] tomorrow and is going home. When she was in the hospital, it was discussed with her that she would need multiple panniculectomy procedures because of the risk of excising the massive panniculus all at once. Also the central portion would be excised last because of the presence of the hernia. At that time would need assistance from General Surgery for repair of the hernia. Will schedule the panniculectomy under general anesthesia with a surgical observation overnight stay in the hospital. The VAC will be applied the following day. Her Prealbumin from 05/12/18 was 21.1. Encourage nutritional supplementation with protein to help the healing process. Patient was informed of the risks and complications of the procedure including alternatives to surgery. These were discussed with her personally. She voices understanding and wishes to proceed. Followup 2 weeks. Code Visit 111xxx-113xx: [id number] Josephine subq tissue 20 sq cm/< Add On Codes: [id number] Josephine subq tissue add-on - x3
--- OUTSIDE RECORDS SUMMARY | 2018-10-30 08:58 | XMS RPT_ITS ---
:1975 Author Organization OHIP Support Name Relationship Address Phone SERENITY, PAT Unavailable [address] + [place] [address] UE Unavailable Unavailable Unavailable SERENITY, PAT Unavailable [address] + [place] [address] UE Unavailable Unavailable Unavailable SERENITY, PAT Unavailable [address] + [place] [address] UE Unavailable Unavailable Unavailable SERENITY, PAT Unavailable [address] + [place] [address] UE Unavailable Unavailable Unavailable SERENITY, PAT Unavailable [address] + [place] [address] UE Unavailable Unavailable Unavailable SERENITY, PAT Unavailable [address] + [place] [address] UE Unavailable Unavailable Unavailable SERENITY, PAT Unavailable [address] + [place] [address] UE Unavailable Unavailable Unavailable SERENITY, PAT Unavailable [address] + [place] [address] UE Unavailable Unavailable Unavailable SERENITY, PAT Unavailable [address] + [place] [address] UE Unavailable Unavailable Unavailable SERENITY, PAT Unavailable [address] + [place] [address] UE Unavailable Unavailable Unavailable SERENITY, PAT Unavailable [address] + [place] [address] UE Unavailable Unavailable Unavailable SERENITY, PAT Unavailable [address] + [place] [address] YESI HORNE Unavailable [address] + [place] [address] UE Unavailable Unavailable Unavailable SERENITY, PAT Unavailable [address] + [place] [address] SPEEDY YESI Unavailable [address] + [place] [address] UE Unavailable Unavailable Unavailable SERENITY, PAT Unavailable [address] + [place] [address] SPEEDY, YESI Unavailable [address] + [place] [address] UE Unavailable Unavailable Unavailable SERENITY, PAT Unavailable [address] + [place] [address] SPEDEY, YESI Unavailable [address] + [place] [address] UE Unavailable Unavailable Unavailable SERENITY, PAT Unavailable [address] + [place] [address] SPEEDY, YESI Unavailable [address] + [place] [address] UE Unavailable Unavailable Unavailable SERENITY, PAT Unavailable [address] + [place] [address] SPEEDY, YESI Unavailable [address] + [place] [address] UE Unavailable Unavailable Unavailable SERENITY, PAT Unavailable [address] + [place] [address] SPEEDY, YESI Unavailable [address] + [place] [address] UE Unavailable Unavailable Unavailable SERENITY, PAT Unavailable [address] + [place] [address] SPEEDY, YESI Unavailable [address] + [place] [address] UE Unavailable Unavailable Unavailable SERENITY, PAT Unavailable [address] + [place] [address] SPEEDY, YESI Unavailable [address] + [place] [address] UE Unavailable Unavailable Unavailable SERENITY, PAT Unavailable [address] + [place] [address] SPEEDY, YESI Unavailable [address] + [place] [address] UE Unavailable Unavailable Unavailable SERENITY, PAT Unavailable [address] + [place] [address] SPEEDY, YESI Unavailable [address] + [place] [address] UE Unavailable Unavailable Unavailable SERENITY, PAT Unavailable [address] + [place] [address] SPEEDY, YESI Unavailable [address] + [place] [address] UE Unavailable Unavailable Unavailable SERENITY, PAT Unavailable [address] + [place] [address] SPEEDY, YESI Unavailable [address] + [place] [address] UE Unavailable Unavailable Unavailable SERENITY, PAT Unavailable [address] + [place] [address] SPEEDY, YESI Unavailable [address] + [place] [address] UE Unavailable Unavailable Unavailable SERENITY, PAT Unavailable [address] + [place] [address] SPEEDY, YESI Unavailable [address] + [place] [address] UE Unavailable Unavailable Unavailable SERENITY, PAT Unavailable [address] + [place] [address] SPEEDY, YESI Unavailable [address] + [place] [address] UE Unavailable Unavailable Unavailable SERENITY, PAT Unavailable [address] + [place] [address] SPEEDY, YESI Unavailable [address] + [place] [address] UE Unavailable Unavailable Unavailable SERENITY, PAT Unavailable [address] + [place] [address] SPEEDY, YESI Unavailable [address] + [place] [address] UE Unavailable Unavailable Unavailable SERENITY, PAT Unavailable [address] + [place] [address] SPEEDY, YESI Unavailable [address] + [place] [address] UE Unavailable Unavailable Unavailable SERENITY, PAT Unavailable [address] + [place] [address] SPEEDY, YESI Unavailable [address] + [place] [address] UE Unavailable Unavailable Unavailable SERENITY, PAT Unavailable [address] + [place] [address] SPEEDY, YESI Unavailable [address] + [place] [address] UE Unavailable Unavailable Unavailable SERENITY, PAT Unavailable [address] + [place] [address] SPEEDY, YESI Unavailable [address] + [place] [address] UE Unavailable Unavailable Unavailable SERENITY, PAT Unavailable [address] + [place] [address] SPEEDY, YESI Unavailable [address] + [place] [address] UE Unavailable Unavailable Unavailable SERENITY, PAT Unavailable [address] + [place] [address] SPEEDY, YESI Unavailable [address] + [place] [address] UE Unavailable Unavailable Unavailable SERENITY, PAT Unavailable [address] + [place] [address] SPEEDY, YESI Unavailable [address] + [place] [address] UE Unavailable Unavailable Unavailable SERENITY, PAT Unavailable [address] + [place] [address] SPEEDY, YESI Unavailable [address] + [place] [address] UE Unavailable Unavailable Unavailable SERENITY, PAT Unavailable [address] + [place] [address] SPEEDY, YESI Unavailable [address] + [place] [address] UE Unavailable Unavailable Unavailable SERENITY, PAT Unavailable [address] + [place] [address] SPEEDY, YESI Unavailable [address] + [place] [address] UE Unavailable Unavailable Unavailable SERENITY, OLIVIER/PAT Unavailable [address] + [place] [address] SPEEDY, YESI Unavailable [address] + [place] [address] UE Unavailable Unavailable Unavailable Care Team Providers Name Role Phone [facility] Primary Care Unavailable Elsy Levine Attending Unavailable Gato Lobo Attending Unavailable Slaby, Yrn Referring Unavailable Bardales, Franco Primary Care Unavailable Ruthie, Yrn Consulting Unavailable Jared Ambrose Attending Unavailable Slaby, Yrn Referring Unavailable Bardales, Franco Primary Care Unavailable Arnav Webber D.O. Consulting Unavailable Tersanjuanitaky, Jared Consulting Unavailable Ruthie, Yrn Consulting Unavailable Arnav Webber D.O. Attending Unavailable Ruthie, Yrn Referring Unavailable Bardales, Franco Primary Care Unavailable Arnav Webber D.O. Consulting Unavailable Nanciky, Jared Consulting Unavailable Mary Sanchez Consulting Unavailable Bardales, Franco Primary Care Unavailable PERRY MAY Attending Unavailable Bardales, Franco Primary Care Unavailable Xiomara Bynum Attending Unavailable Bardales, Cary Primary Care Unavailable White, Cuca Admitting Unavailable White, Cuca Attending Unavailable Slaby, Yrn Consulting Unavailable Huntington, Adonay Consulting Unavailable Olivier Sorinao Consulting Unavailable White, Cuca Admitting Unavailable White, Cuca Attending Unavailable Bardales, Franco Primary Care Unavailable White, Cuca Consulting Unavailable White, Cuca Admitting Unavailable Halie Jared Attending Unavailable Bardales, Franco Primary Care Unavailable Burtony, Yrn Consulting Unavailable Nanciky, Jared Consulting Unavailable White, Cuca Admitting Unavailable Rohan, Jerry Attending Unavailable Bardales, Franco Primary Care Unavailable Slaby, Yrn Consulting Unavailable Jopperi, Jerry Consulting Unavailable White, Cuca Admitting Unavailable Laylaeri, Jerry Attending Unavailable Bardales, Franco Primary Care Unavailable Slaby, Yrn Consulting Unavailable Jopperi, Jerry Consulting Unavailable White, Cuca Admitting Unavailable Darrick, Adonay Attending Unavailable Bardales, Franco Primary Care Unavailable Slaby, Yrn Consulting Unavailable Huntington, Adonay Consulting Unavailable Jopperi, Jerry Consulting Unavailable White, Cuca Admitting Unavailable Gato Lobo Attending Unavailable Bardales, Franco Primary Care Unavailable Slaby, Yrn Consulting Unavailable Darrick, Adonya Consulting Unavailable Ashelfah, Ghasem Consulting Unavailable White, Cuca Admitting Unavailable Ashelfah, Ghasem Attending Unavailable [facility] Unavailable Slaby, Yrn Consulting Unavailable Huntington, Adonay Consulting Unavailable Ashelfah, Ghasem Consulting Unavailable White, Cuca Admitting Unavailable Slaby, Yrn Attending Unavailable [facility] Primary Care Unavailable Slaby, Yrn Consulting Unavailable Darrick, Adonay Consulting Unavailable Ashelfah, Ghasem Consulting Unavailable White, Cuca Admitting Unavailable Gato Lobo Attending Un[facility] Unavailable Slaby, Yrn Consulting Unavailable Darrick, Adonay Consulting Unavailable Ashelfah, Ghasem Consulting Unavailable White, Cuca Admitting Unavailable Ashelfah, Ghasem Attending Unavailable [facility] Primary Care Unavailable Slaby, Yrn Consulting Unavailable Darrick, Adonay Consulting Unavailable Ashelfah, Ghasem Consulting Unavailable White, Cuca Admitting Unavailable Ashelfah, Ghasem Attending Unavailable [facility] Primary Care Unavailable Slaby, Yrn Consulting Unavailable Huntington, Adonay Consulting Unavailable Ashelfah, Ghasem Consulting Unavailable White, Cuca Admitting Unavailable Slaby, Yrn Attending Unavailable [facility] Primary Care Unavailable Slaby, Yrn Consulting Unavailable Darrick, Adonay Consulting Unavailable Ashelfah, Ghasem Consulting Unavailable White, Cuca Admitting Unavailable Ashelfah, Ghasem Attending Unavailable [facility] Primary Care Unavailable Slaby, Yrn Consulting Unavailable Darrick, Adonay Consulting Unavailable Ashelfah, Ghasem Consulting Unavailable White, Cuca Admitting Unavailable Ashelfah, Ghasem Attending Unavailable [facility] Primary Care Unavailable Slaby, Yrn Consulting Unavailable Darrick, Adonay Consulting Unavailable Ashelfah, Ghasem Consulting Unavailable White, Cuca Admitting Unavailable Slaby, Yrn Attending Unavailable [facility] Primary Care Unavailable Slaby, Yrn Consulting Unavailable Huntington, Adonay Consulting Unavailable Ashelfah, Ghasem Consulting Unavailable White, Cuca Admitting Unavailable Ashelfah, Ghasem Attending Unavailable [facility] Primary Care Unavailable Slaby, Yrn Consulting Unavailable Huntington, Adonay Consulting Unavailable Christie, Olivier Consulting Unavailable Ashelfah, Ghasem Consulting Unavailable White, Cuca Admitting Unavailable Ashelfah, Ghasem Attending Unavailable [facility] Primary Care Unavailable Slaby, Yrn Consulting Unavailable Huntington, Adonay Consulting Unavailable Christie, Olivier Consulting Unavailable Ashelfah, Ghasem Consulting Unavailable White, Cuca Admitting Unavailable Slaby, Yrn Attending Unavailable Bardales, Franco Primary Care Unavailable Slaby, Yrn Consulting Unavailable Darrick, Adonay Consulting Unavailable Christie, Olivier Consulting Unavailable Ashelfah, Ghasem Consulting Unavailable White, Cuca Admitting Unavailable Ashelfah, Ghasem Attending Unavailable Bardales, Franco Primary Care Unavailable Slaby, Yrn Consulting Unavailable Huntington, Adonay Consulting Unavailable Christie, Olivier Consulting Unavailable Ashelfah, Ghasem Consulting Unavailable White, Cuca Admitting Unavailable Ashelfah, Ghasem Attending Unavailable Bardales, Franco Primary Care Unavailable Slaby, Yrn Consulting Unavailable Darrick, Adonay Consulting Unavailable Christie, Olivier Consulting Unavailable Ashelfah, Ghasem Consulting Unavailable White, Cuca Admitting Unavailable White, Cuca Attending Unavailable Bardales, Franco Primary Care Unavailable Slaby, Yrn Consulting Unavailable Darrick, Adonay Consulting Unavailable Christie, Olivier Consulting Unavailable White, Cuca Consulting Unavailable White, Cuca Admitting Unavailable White, Cuca Attending Unavailable [facility] Primary Care Unavailable Slaby, Yrn Consulting Unavailable Darrick, Adonay Consulting Unavailable Christie, Olivier Consulting Unavailable White, Cuca Consulting Unavailable White, Cuca Admitting Unavailable White, Cuca Attending Unavailable Bardales, Franco Primary Care Unavailable Slaby, Yrn Consulting Unavailable Darrick, Adonay Consulting Unavailable Christie, Olivier Consulting Unavailable White, Cuca Consulting Unavailable Neville, Gabe Attending Unavailable White, Cuca Referring Unavailable Bardales, Franco Primary Care Unavailable Wyatt, Davon Attending Unavailable Slaby, Yrn Attending Unavailable Bardales, Franco Primary Care Unavailable Slaby, Yrn Attending Unavailable Bardales, Franco Primary Care Unavailable Slaby, Yrn Attending Unavailable Bardales, Franco Primary Care Unavailable Slaby, Yrn Consulting Unavailable Slaby, Yrn Attending Unavailable Bardales, Franco Primary Care Unavailable Slaby, Yrn Consulting Unavailable Sheron, Belinda E Attending Unavailable Bardales, Franco Primary Care Unavailable Slaby, Yrn Consulting Unavailable Slaby, Yrn Attending Unavailable Bardales, Franco Primary Care Unavailable Sheron, Belinda E Attending Unavailable Bardales, Franco Primary Care Unavailable Slaby, Yrn Consulting Unavailable Slaby, Yrn Referring Unavailable Slaby, Yrn Attending Unavailable Slaby, Yrn Referring Unavailable Bardales, Franco Primary Care Unavailable Burtony, Yrn Admitting Unavailable Arnav Brown, D.O. Consulting Unavailable Jared Ambrose Consulting Unavailable CORNIELLO, TRISHA L (POWDER BLENDER AND POURER) Attending Unavailable BARDALESFRANCO L Attending Unavailable CORNIELLO, TRISHA L (POWDER BLENDER AND POURER) Attending Unavailable BARDALES, FRANCO L Referring Unavailable CORNIELLO, TRISHA L (POWDER BLENDER AND POURER) Referring Unavailable BARDALES, FRANCO L Referring Unavailable CORNIELLO, TRISHA L (POWDER BLENDER AND POURER) Attending Unavailable CORNIELLO, TRISHA L (POWDER BLENDER AND POURER) Attending Unavailable CORNIELLO, TRISHA L (POWDER BLENDER AND POURER) Attending Unavailable CORNIELLO, TRISHA L (POWDER BLENDER AND POURER) Referring Unavailable ELRIFAI, MOHAMED Admitting Unavailable ELRIFAI, MOHAMED Attending Unavailable YVONNE CONTI Consulting Unavailable FRANCO BARDALES Primary Care Unavailable ELRIFAI, MOHAMED Admitting Unavailable ELRIFAI, MOHAMED Attending Unavailable Janeen CONTI Consulting Unavailable PROBLEMS PROBLEMS DATE TYPE CONDITION / CODE ATTENDING STATUS SOURCE 05/21/2018 Unknown M79.89 - Other White, Cuca Active [place] specified soft Community tissue disorders / Hospital M79.89(ICD-10) Repository 06/11/2018 Unknown Z01.810 - Encounter Gabe Lozada Active [place] for preprocedural [facility] examination / Repository Z01.810(ICD-10) 03/08/2018 Active Cellulitis of ELRIFAI, Active [place] abdominal wall / [facility] Other L03.311(ICD-10) [place] Repository 03/08/2018 Active Unspecified open ELRIFAI, Active [place] wound of abdominal [facility] Other wall, unspecified [place] quadrant without Repository penetration into peritoneal cavity, initial encounter / S31.109A(ICD-10) 03/08/2018 Active Local infection of ELRIFAI, Active [place] the skin and [facility] Other subcutaneous tissue, [place] unspecified / Repository L08.9(ICD-10) 03/08/2018 Active Umbilical hernia ELRIFAI, Active [place] with obstruction, [facility] Other without gangrene / [place] K42.0(ICD-10) Repository 03/08/2018 Admitting Unknown / ELRIFAI, Active [place] [facility] diagnosis UNK(Unknown) [facility] Repository 04/01/2018 Unknown R10.9 - Unspecified Ahmed, Rami Active [place] abdominal pain / Community R10.9(ICD-10) Hospital Repository 02/15/2018 Active Encounter for NA Active [place] screening mammogram [facility] for malignant [place] neoplasm of breast / Repository Z12.31(ICD-10) 05/05/2017 Active Localized adiposity NA Active [place] / E65(ICD-10) [facility] [place] Repository 12/16/2017 Active Hypothyroidism, NA Active [place] unspecified / [facility] E03.9(ICD-10) [place] Repository PROCEDURES PROCEDURES No Procedure Records FoundRESULTS RESULTS CONSULTATION Observed: 09/22/2018 Status: F Source: [place] 7:19 AM [facility] REPOSITORY [facility] Medical Records Department [address] [place] [address] Consultation 09/21/18 1524 MR#: [id number] Acct: [id number] Name: ROSALIE HORNE Rep #: [id number] : 1975 43 From: Arnav Webber DO PCP: Franco Jacques DO Status: REG [facility] Y Location: ICU [place] [address] Reason for Consult Date of Consultation: 09/21/18 Reason for Consultation: Hypovolemic/hemorrhagic shock History of Present Illness: The patient is a morbidly obese 43-year-old female, with a history as outlined below, who presented to the hospital for a scheduled excisional debridement and panniculectomy by Dr. Hendricks. The patient has a history of a nonhealing ulcer in the central aspect of her lower abdominal panniculus. The patient underwent a similar procedure in May 2018, at which time, operative cultures revealed staph hominis and anaerobes. Despite treatment with antibiotics, the patient had a persistent ulceration and worsening pain. Therefore, she presented to the hospital for surgical intervention. Postoperatively, I was contacted by anesthesia, who indicated that the patient was hypotensive in the PACU. A repeat H AND H obtained shortly after surgery revealed a hemoglobin of 6.2 g/dL. The patient's preoperative hemoglobin was 10.6 g/dL. The patient does report a long-standing history of anemia, but has been intolerant of iron sulfate therapy. I was told by anesthesia that the intraoperative blood loss was minimal, but that the patient did receive a total of 4 L of fluid. In the PACU, both a central venous catheter and arterial line was placed. The patient was given a total of 4 units of packed red blood cells. Despite having a central venous catheter in place, phenylephrine was initiated in the PACU through a peripheral IV. The patient was then transferred to the medical intensive care unit for ongoing management. 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) Erythema intertrigo (Chronic) abdominal wall skin crease intertrigo Panniculitis (Chronic) Abdominal panniculus, symptomatic (Chronic) Skin ulcer of abdominal wall with fat layer exposed (Chronic) Incisional hernia (Chronic) Anxiety and depression (Chronic) Allergic rhinitis (Chronic) MARCE (obstructive sleep apnea) (Chronic) not on CPAP (pt refusal) Obesity, Class III, BMI 40-49.9 (morbid obesity) (Chronic) Asthma (Chronic) Super-super obese (Chronic) Prediabetes (Chronic) Hypertension (Chronic) Hypothyroid (Chronic) Allergies diphenhydramine HCl [From Benadryl] Allergy (Verified 09/17/18 14:22) Hives metronidazole [From Flagyl] Allergy (Verified 09/17/18 14:22) Rash venom-honey bee [bee venom (honey bee)] Allergy (Verified 09/17/18 14:22) Anaphylaxis aspirin Adverse Reaction (Verified 09/17/18 14:22) Upset Stomach codeine Adverse Reaction (Verified 09/17/18 14:22) Other ibuprofen Adverse Reaction (Verified 09/17/18 14:22) Upset Stomach Penicillins Adverse Reaction (Verified 09/17/18 14:22) Nausea Home Medications: Ambulatory Orders Medication Instructions Recorded Loratadine [Claritin] 10 mg PO DAILY 03/08/18 Montelukast Sodium [Singulair] 10 mg PO DAILY 03/08/18 Omeprazole [Prilosec] 20 mg PO DAILY 03/08/18 Surgical History: - - 3, cholecystectomy, tonsillectomy. Psychiatric History: Anxiety, Depression MICA SPREADER History: No pertinent MICA SPREADER history Smoking Status: Never smoker - *Family History Maternal History Items: - - Patient notes a maternal and paternal family history of heart disease, diabetes, high cholesterol, cancer. Paternal History Items: - - Patient notes a maternal and paternal family history of heart disease, diabetes, high cholesterol, cancer. Review of Systems Constitutional: Denies: Chills, Fever, Weight Change Eyes: Denies: Blurred vision, Double vision HEENT: Denies: Head Aches, Sinus Congestion, Sinus Drainage Cardiovascular: Denies: Chest Pain, Palpitations Respiratory: Denies: Cough, Shortness of breath at rest, Sputum production Gastrointestinal: Reports: Abdominal Pain, Nausea, Vomiting Genitourinary: Denies: Dysuria Musculoskeletal: Denies: Joint Pain, Joint Tenderness Skin: Denies: Rash, Wounds Neurological: Denies: Numbness, Tingling, Focal weakness Psychiatric: Denies: Anxiety, Depression, Homicidal Ideations, Suicidal Ideations Hematologic/ Lymphatic: Reports: Anemia, Hx of blood transfusion Patient Problems: Active and Suspected Problems Encounter for adjustment or management of vascular access device (Acute) Objective: The patient's most recent lab work, culture data and imaging studies have all been personally reviewed. - Physical Exam General: Alert, Cooperative, - - Super morbidly obese. Nontoxic in appearance. HEENT: Atraumatic, PERRLA, Normocephalic Oral: No Gingival or Mucosal Lesions/ Ulcerations Neck: Supple, No Nodes, Trachea Midline, - - Large neck circumference with redundant soft tissue Lungs: No rhonchi, No wheeze, No rales, Diminished, - - Poor inspiratory effort Cardiovascular: Normal S1, Normal S2, No murmurs, Tachycardic Abdomen: Soft, Tender, - - Large pannus with postsurgical changes noted Extremities: No clubbing, No cyanosis, No edema Skin: Incision Musculoskeletal: No Muscle Wasting Lymphatic: No Cervical, Supraclavicular, or Inguinal Adenopathy Neurological: Neuro grossly intact Psych/Mental Status: Anxious Vital Signs Temp Pulse Resp BP Pulse Ox 36.1 C L 114 H 24 H 121/50 H 100 09/21/18 14:15 09/21/18 14:15 09/21/18 14:15 09/21/18 14:15 09/21/18 14:15 Oxygen Flow Rate (L/min) 6 Oxygen Delivery Method Simple Mask Weight: 415 lb Body Mass Index (BMI) 78.4 Intake and Output for Last 24 Hours Intake Total 5500 / 5500 Output Total 135 / 135 Balance 5365 / 5365 Microbiology Past 72 Hours 09/21/18 11:34 Gram Stain - Final Tissue - Other Laboratory Tests Past 24 Hrs WBC 7.6 RBC 4.99 Hgb 10.6 L Hct 36.7 L MCV 73.5 L WBC RBC Hgb 6.2 L Hct MCV MCH MCHC RDW RDW Differential Plt Count Clinical Impression(s) from Imaging Studies Chest X-Ray 09/21/18 14:03 IMPRESSION: The tip of the left central line is at the junction of the superior vena cava and left brachiocephalic vein. Electronically Signed: Michel Shannon MD at 14:27 EST Tel [phone], Service support , Clinical Impression(s) from Imaging Studies Chest X-Ray 09/21/18 14:03 IMPRESSION: The tip of the left central line is at the junction of the superior vena cava and left brachiocephalic vein. Electronically Signed: Michel Shannon MD at 14:27 EST Tel [phone], Service support , Assessment/Plan Active and Suspected Problems Encounter for adjustment or management of vascular access device (Acute) RECOMMENDATIONS: 1. Discontinue phenylephrine and monitor for hemodynamic stability. 2. If the patient does become hemodynamically stable once again, and initiate Levophed through central venous line. 3. Recheck stat H AND H. 4. Check free T4 level. 5. Continue antiemetics and pain control per surgery. 6. Continue broad-spectrum antibiotics. IMPRESSIONS: 1. Nonhealing ulcer of abdominal wall, now POD #0 s/p excisional debridement and panniculectomy Continue current supportive measures including supplemental IV fluid hydration, while the patient is n.p.o., along with pain control and antiemetics per surgery recommendations. Continue local wound care. Continue broad-spectrum antibiotics. 2. Hypovolemic versus hemorrhagic shock The patient was reportedly hypotensive and anemic postoperatively. Although it was reported that the blood loss intraoperatively was minimal, the patient's hemoglobin dropped by 4 g upon recheck in the PACU. She did receive 4 L of fluid intraoperatively, so it is unclear whether the repeat H AND H was delusional in nature. Despite this, the patient was given 4 units of packed red blood cells through a rapid infuser in the PACU. A follow- up H AND H in the ICU revealed a hemoglobin of 10.5. The patient did arrive on Eleuterio-Synephrine, which was able to be weaned off completely shortly after her arrival. She has remained hemodynamically stable without any signs of overt blood loss. Recommend monitoring hemoglobin with plans to transfuse if it drops below 7 g/dL. 3. Super morbid obesity/hypothyroidism/hypertension/anxiety/depression/asthma Complicates care, management, report recovery and prognosis. Continue home medications, once the patient is able to tolerate p.o. intake. Advance diet per surgery recommendations. TIME: 38 minutes of critical care time, independent of procedures, was spent addressing the patient's nonhealing abdominal wall ulcer, hypovolemic versus hemorrhagic shock, anemia, review of all data and collaboration with the care team. ([id number]) Code Visit 9xxxx: [id number] Critical care first hour 09/22/18718 <Electronically signed by Arnav Webber DO> Date Arnav Webber DO Cosigner Signature (if applicable): Date CC: Arnav Webber D.O.; Yrn Hendricks MD; Franco Jacques DO; Jared Ambrose DO Signed CBC-COMPLETE BLOOD CNT Collected: 09/22/2018 Status: F Source: [place] NO DIFF 5:00 AM [facility] REPOSITORY TYPE CODE TESTS RESULT OUT OF RANGE REFERENCE UNITS LAB L100.1000 4.4-11.0 K/mm3 High WBC 12.6 LAB L100.1200 4.2-5.4 M/mm3 Low RBC 3.59 LAB L100.1300 12.0-15.0 g/dl Low HGB 9.0 LAB L100.1400 37-47 % Low HCT 28.3 LAB L100.1500 81-99 fL Low MCV 78.8 LAB L100.1600 27.0-32.0 pg Low MCH 25.1 LAB L100.1700 32-36 g/gl Low MCHC 31.8 LAB L100.1810 11.6-14.6 % High RDW CV 18.5 LAB L100.1820 35.1-43.9 fl High RDW SD 53.8 LAB L100.1900 150-450 K/mm3 Normal PLT 207 LAB L100.2000 6.2-12.0 fl Normal MPV 9.8 Performed By: #### L100.0500 #### [facility] [address] [place], [address] BASIC METABOLIC Collected: 09/22/2018 Status: F Source: [place] PROFILE (BMP) 5:00 AM [facility] REPOSITORY TYPE CODE TESTS RESULT OUT OF RANGE REFERENCE UNITS LAB L501.0100 74-106 mg/dL High GLU 116 Result Comment: Fasting Glucose result from 100 to 125 mg/dL suggests IMPAIRED HOMEOSTASIS per A.D.A. criteria. Please note revised GLUCOSE reference range effective 2017. LAB L501.1000 7-18 mg/dL Normal BUN 15 LAB L501.1100 0.55-1.02 mg/dL Normal CREAT,SERUM 0.75 Result Comment: The validity of the calculated GFR AND GFRAA in patients over 70 years has not been determined. Clinical correlation is essential. LAB L501.1110 >60 mL/min Normal EST GFR 90 Result Comment: Non- GFR Calc LAB L501.1115 >60 mL/min Normal EST GFR - AA 109 Result Comment: GFR Calc LAB L501.1255 ml/min Normal Estimated CRCL 72.98 LAB L501.1300 10-20 RATIO Normal BUN/CRE 20.0 LAB L501.2200 8.5-10 mg/dL Low .1 CA 7.5 LAB L501.5300 136-14 mmol/L Normal 5 NA 141 LAB L501.5600 3.5-5. mmol/L Normal 1 K 4.4 LAB L501.5900 98-107 mmol/L Normal CL 107 LAB L501.6100 21.0-3 mmol/L Normal 2.0 CO2 26.0 LAB L501.6200 5-15 Normal GAP 8 Performed By: #### L500.2500, L506.0500 #### [facility] [address] [facility] [address] [address] [place], [address] PREALBUMIN Collected: 09/22/2018 Status: F Source: [place] 5:00 AM [facility] REPOSITORY TYPE CODE TESTS RESULT OUT OF REFERENCE UNITS RANGE LAB L506.0500 20.0-40.0 mg/dL Low PREALBUMIN 12.0 Performed By: #### L500.2500, L506.0500 #### [facility] [address] [place], [address] HEMOGLOBIN A1C Collected: 09/22/2018 Status: F Source: [place] 5:00 AM [facility] REPOSITORY TYPE CODE TESTS RESULT OUT OF RANGE REFERENCE UNITS LAB L501.9985 4.2-6.3 % Normal HGB A1C 5.2 Performed By: #### L501.9985 #### [facility] [address] [place], [address] HH, HEMOGLOBIN AND Collected: 09/21/2018 Status: F Source: [place] HEMATOCRIT 3:45 PM [facility] REPOSITORY TYPE CODE TESTS RESULT OUT OF RANGE REFERENCE UNITS LAB L100.1300 12.0-15.0 g/dl Low HGB 10.5 LAB L100.1400 37-47 % Low HCT 34.0 Performed By: #### L100.0600 #### [facility] [address] [place], [address] T4 FREE DIRECT Collected: 09/21/2018 Status: F Source: [place] 3:45 PM [facility] REPOSITORY TYPE CODE TESTS RESULT OUT OF REFERENCE UNITS RANGE LAB L506.0400 0.76-1.46 ng/dL High T4 FREE 1.53 DIRECT Performed By: #### L506.0400 #### [facility] [address] [place], [address] OPERATIVE REPORT Observed: 09/21/2018 Status: F Source: [place] 2:46 PM [facility] REPOSITORY [facility] Medical Records Department [address] [place] [id number] Operative Report 09/21/18 1441 MR#: [id number] Acct: [id number] Name: ROSALIE HORNE Tara Rep #: [id number] : 1975 43 From: Gato Lobo MD PCP: Franco Jacques DO Status: REG SDC Y Location: ICU ICU05-1 Problem List (1) Encounter for adjustment or management of vascular access device Status: Acute Report of Operation Date of Procedure: 09/21/18 Pre-Operative Diagnosis: Need for central venous access Post-Operative Diagnosis: Same. Surgery/Procedure Performed:: Ultrasound-guided left central line placement utilizing left IJ Description of Procedure: The patient's left neck was prepped and I was called into place a central access device. The left IJ was identified using ultrasound guidance and the skin was anesthetized with lidocaine. Using the access needle the IJ was accessed using direct visualization. There was good flow in the catheter and this was nonpulsatile. Next a guidewire was placed into this vessel and the needle was removed. A small incision was made and the dilator was placed over this as well as the central catheter. The guidewire was removed and there was nonpulsatile bleeding from the catheter. Next all the ports were aspirated and then flushed with saline. There is good draw back and flow in each of the ports. Next the skin was anesthetized with lidocaine and 2 sutures were used to suture the central line to the skin of the neck. The dressing was then placed by nursing and the drape was removed. The patient tolerated the procedure well and a chest x-ray will be obtained. Grafts/Implants Used: Triple lumen catheter 09/21/18 1446 <Electronically signed by Gato Lobo MD> Date Gato Lobo MD CC: Gato Lobo MD; Yrn Hendricks MD; Franco Jacques DO Signed CHEST 1 VIEW Observed: 09/21/2018 Status: F Source: [place] (PORTABLE) 2:04 PM [facility] REPOSITORY [facility] Imaging Services [address] [place] [address] Chest 1 View (Portable) MR#: [id number] Acct: [id number] Name: ROSALIE HORNE Rep #: [id number] : 1975 F 43 From: Michel Shannon MD PCP: Franco Jacques DO Status: REG [facility] [place] Study: Chest 1 View (Portable) Date of Exam: 09/21/18 Exam# [id number] Ordering Dr: Jerry Petersen MD STUDY: X-RAY CHEST REASON FOR EXAM: Female, 43 years old. Central line placement. TECHNIQUE: Single AP portable view of the chest. COMPARISON: Comparison is made with prior study dated May 06, 2018. FINDINGS: A left-sided central line catheter was placed. The tip is at the junction of the superior vena cava and left brachiocephalic vein. Mild increased linear markings in the upper lobes suggestive of a linear atelectasis and/or scarring. There is no demonstrated pleural abnormality. Normal size heart. Normal mediastinum and donn. Normal visualized pulmonary arteries. Normal visualized aortic arch and descending thoracic aorta. There are degenerative changes of the visualized thoracic spine. Normal visualized ribs, clavicles, and shoulders. There is no demonstrated abnormality of the visualized soft tissue structures of the upper abdomen. RAD/Chest 1 View (Portable) IMPRESSION: The tip of the left central line is at the junction of the superior vena cava and left brachiocephalic vein. Electronically Signed: Michel Shannon MD at 14:27 EST Tel [phone], Service support , CC: Jerry Petersen MD; Franco Jacques DO Efficiency Manager: Signed HEMOGLOBIN Collected: 09/21/2018 Status: F Source: [place] 12:05 PM [facility] REPOSITORY TYPE CODE TESTS RESULT OUT OF RANGE REFERENCE UNITS LAB L100.1300 12.0-15.0 g/dl Low HGB 6.2 Performed By: #### L100.1300 #### [facility] [address], [address] TYPE AND SCREEN Collected: 09/21/2018 Status: F Source: [place] 12:05 PM [facility] REPOSITORY Order Comment: CMV NEG? N Number of units to transfuse: 2 Comments: panniculectomy Is there a >20% drop in pt's BP? N Is the pt's CVP (central venous pressure) <3 cm/H2O? N Is the EBL >/= 1000ml in adults or >/= 12ml/kg in children? N Is there an orthostatic change in pt's BP(SBP drop >10mmHg)? N Is pt's HR > 100 bpm? N Reason for Ordering Blood: Acute Are the blood/blood products to be transfused? Y Is the patient having/had surgery? Y Has pt arrived? N Anticipated time of surgery: 09 CMV NEG?* N Give When? When Ready Irradiated? N Leukodepleted? Y Reason for Type AND Screen/Red Cells: SURGERY Surgery Date: 09/21/18 Time: 1200 Other - use comments: . Type of Surgery: OTHER TYPE CODE TESTS RESULT OUT OF RANGE REFERENCE UNITS LAB B10.0800 A Normal BLOOD TYPE GEL POSITIVE LAB B100.4000 Normal Antibody NEGATIVE Screen Performed By: #### B101.7450 #### [facility] [place], [address] RC Collected: 09/21/2018 Status: F Source: MELANIE 12:05 PM [facility] REPOSITORY TYPE CODE TESTS RESULT OUT OF REFERENCE UNITS RANGE LAB U100.0000 [id number] TRANSFUSED PRODUCT: T AND S with Crossmatch, Red Cells COUNT: 2 Performed By: #### U100.0000 #### [facility] - refer to report for specific site RC Collected: 09/21/2018 Status: F Source: MEL[place]IE 12:05 PM [facility] REPOSITORY TYPE CODE TESTS RESULT OUT OF REFERENCE UNITS RANGE LAB U100.0000 [id number] TRANSFUSED PRODUCT: T AND S with Crossmatch, Red Cells COUNT: 2 Performed By: #### U100.0000 #### [facility] - refer to report for specific site Observed: 09/21/2018 Status: P Source: [place]IE CULTURE, DEEP WOUND 11:34 AM [facility] REPOSITORY Order Date: 05/06/17 List Antibiotics Last 48 Hours? VANCOMYCIN Has pt arrived? Y Comments: TISSUE RIGHT PANNUS Gram Stain Gram Stain 4+ Red Blood Cells 1+ White Blood Cells No organisms seen Wound Culture Further studies to follow. ORGANISM 1: Mixed Gram Positive Organisms Amount Growth 1+ Performed By: #### M100.1500 #### [facility] [place], [address] CBC W/DIFF, AUTOMATED Collected: 09/21/2018 Status: F Source: MELANIE 7:31 AM [facility] REPOSITORY Order Comment: Reason for Laboratory Test surgery TYPE CODE TESTS RESULT OUT OF RANGE REFERENCE UNITS LAB L100.1000 4.4-11.0 K/mm3 Normal WBC 7.6 LAB L100.1200 4.2-5.4 M/mm3 Normal RBC 4.99 LAB L100.1300 12.0-15.0 g/dl Low HGB 10.6 LAB L100.1400 37-47 % Low HCT 36.7 LAB L100.1500 81-99 fL Low MCV 73.5 LAB L100.1600 27.0-32.0 pg Low MCH 21.2 LAB L100.1700 32-36 g/gl Low MCHC 28.9 LAB L100.1810 11.6-14.6 % High RDW CV 19.4 LAB L100.1820 35.1-43.9 fl High RDW SD 52.5 LAB L100.1900 150-450 K/mm3 Normal PLT 306 LAB L100.2000 6.2-12.0 fl Normal MPV 10.1 LAB L100.2100 47-70 % Normal NEUT% 57.7 LAB L100.2200 19-41 % Normal LY% 30.9 LAB L100.2300 0-10 % Normal MONO% 5.8 LAB L100.2400 0-5 % High EO% 5.2 LAB L100.2500 0-1 % Normal BASO% 0.3 LAB L100.2550 0.0-0.9 % Normal IM GRAN % 0.100 Result Comment: IG% - Immature Granulocytes (promyelocytes, myelocytes and metamyelocytes) > 1% indicates that a LEFT SHIFT is Present. LAB L100.2620 2.0-7.7 X10 3/uL Normal Absolute Neut 4.4 LAB L100.2720 0.83-4.51 X10 3/ul Normal Absolute Lymph 2.33 LAB L100.4500 Normal SMEAR COMMENT COMMENT Result Comment: SLIDE SCANNED - 1+ HYPOCHROMIA, 1+ TARGET CELLS. Performed By: #### L100.0100 #### [facility] [address] [place], [place], [address] BASIC METABOLIC Collected: 09/21/2018 Status: F Source: [place]IE PROFILE (BMP) 7:31 AM [facility] REPOSITORY Order Comment: Reason for Laboratory Test surgery TYPE CODE TESTS RESULT OUT OF RANGE REFERENCE UNITS LAB L501.0100 74-106 mg/dL High GLU 108 Result Comment: Fasting Glucose result from 100 to 125 mg/dL suggests IMPAIRED HOMEOSTASIS per A.D.A. criteria. Please note revised GLUCOSE reference range effective 2017. LAB L501.1000 7-18 mg/dL Normal BUN 10 LAB L501.1100 0.55-1.02 mg/dL Normal CREAT,SERUM 0.63 Result Comment: The validity of the calculated GFR AND GFRAA in patients over 70 years has not been determined. Clinical correlation is essential. LAB L501.1110 >60 mL/min Normal EST GFR 110 Result Comment: Non- GFR Calc LAB L501.1115 >60 mL/min Normal EST GFR - AA 133 Result Comment: GFR Calc LAB L501.1255 ml/min Normal Estimated CRCL 86.89 LAB L501.1300 10-20 RATIO Normal BUN/CRE 15.9 LAB L501.2200 8.5-10 mg/dL Normal .1 CA 9.0 LAB L501.5300 136-14 mmol/L Normal 5 NA 139 LAB L501.5600 3.5-5. mmol/L Normal 1 K 3.5 LAB L501.5900 98-107 mmol/L Normal CL 104 LAB L501.6100 21.0-3 mmol/L Normal 2.0 CO2 25.0 LAB L501.6200 5-15 Normal GAP 10 Performed By: #### L500.2500, L501.9520 #### [facility] [address] [place], [place], [address] THYROID STIM HORMONE Collected: 09/21/2018 Status: F Source: MELANIE (TSH) 7:31 AM [facility] REPOSITORY Order Comment: Reason for Laboratory Test surgery TYPE CODE TESTS RESULT OUT OF RANGE REFERENCE UNITS LAB L501.9520 0.358-3.74 uIU/mL Low TSH 0.11 Performed By: #### L500.2500, L501.9520 #### [facility] [address] [place], [address] ,SERUM,HCG QUALI. Collected: Status: F Source: [place] 09/21/2018 7:31 AM [facility] REPOSITORY TYPE CODE TESTS RESULT OUT OF REFERENCE UNITS RANGE LAB L700.6700 =>Qualitative mIU/mL Normal HCG Qual < 1 triggr LAB L700.7000 0-9 Nonpreg Negative Normal HCGSQUAL NEGATIVE Performed By: #### L700.6800 #### [facility] [address], [address] CNPN Observed: 08/19/2018 Status: COMPLETED Source: [place] 12:00 AM [facility] RE[facility]IT[facility] ROSALIE HORNE ([id number]) 1975 F Date Time Provider Department 08/19/18 [facility] During your visit today, we recorded the following information about you: Bebe Velazco LPN 08/19/2018 1:50 PM Signed Jazmin with [facility] [phone] calling to request a prescription again for a Bariatric Wheelchair. This was orders for patient earlier and delivered but the patient was not able to fit in it and they had to come and pick it up. Patient has lost weight and will be able to fit in it now. [facility] requires a new prescription be sent to them and they can deliver to patient. Bebe Redding APRN.ALYCIA 08/19/2018 2:07 PM Signed Please process request. VASILIY Interiano LPN 08/19/2018 3:36 PM Signed Order pending. Please print order. Will fax once printed and signed. Satish Redding APRN.ALYCIA 08/19/2018 3:38 PM Signed completed Satish [place] LPN 08/19/2018 3:54 PM Signed Order printed and faxed to [facility]. Satish Braswell, RN, RN 08/20/2018 12:37 PM Signed [facility] calls, stating pt has requested wheelchair in past but was not able to fit. Message below given regarding weight loss. Faxed last office notes to [facility] per her request. Allergies As of Date: 08/19/2018 Noted Allergy Reaction ASA (ASPIRIN) 01/20/2012 14 - Other: See Comments Comments: Upset stomach BEES 07/21/2005 7 - Swelling BENADRYL (DIPHENHYDRAMINE HCL) 07/21/2005 4 - Hives CODEINE 07/21/2005 1 - Mental Status Change Comments: HALLUCINATIONS FLAGYL (METRONIDAZOLE HCL) 03/08/2018 14 - Other: See Comments Comments: Per pt, topical flagyl irritated her incision and po flagyl gave her GI upset. IBUPROFEN 07/21/2005 8 - GI Upset PENICILLINS 05/10/2015 8 - GI Upset Date Reviewed: 05/06/2018 Reviewed by: Satish [place] LPN - Fully Assessed Reason for Visit: Orders [681] Visit Diagnoses:Morbid obesity with BMI of 70 and over, adult (HCC) [E66.01, Z68.45] Arthralgia of multiple joints [M25.50] Order(s):COMPOUNDED PRESCRIPTIONBariatric Wheelchair Dx: E66.01 Z68.45 M25.50 Please send to address: [address] [place] [address](pt currently at this facility)Disp: 1 EachRfl: 0 Prescriptions as of 08/19/2018 Sig: COMPOUNDED PRESCRIPTION Bariatric Wheelchair Dx: E66.* TRANSPARENT DRESSINGS 4 12/10 * Apply 1 application to affect* GAUZE BANDAGE 4 X 4 Apply 1 application to affect* SODIUM CHLORIDE 0.75 X 39 B* Apply 1 application to affect* ADHESIVE TAPE 2 X 10 YARD Apply 1 application to affect* SODIUM CHLORIDE 0.9 % IRRIGAT* Irrigate 3-5 mL as instructed* LANCETS Test blood sugar(s) 1 times d* BLOOD SUGAR DIAGNOSTIC STRIPS Test blood sugar(s) 1 times d* NON-ADHERENT BANDAGE 5 X 9 Apply 1 application to affect* BOOST ORAL Take 1 Can by mouth twice dottie* SERTRALINE 100 MG TABLET Take 100 mg by mouth once dottie* LEVOTHYROXINE 300 MCG TABLET Take 1 tablet by mouth once d* PROTEIN ORAL POWDER Take 1 Dose by mouth twice da* OMEPRAZOLE 20 MG CAPSULE,RACHID* Take 1 capsule by mouth once * LISINOPRIL 10 MG-HYDROCHLOROT* Take 1 tablet by mouth once d* MONTELUKAST 10 MG TABLET Take 1 tablet by mouth once d* BLOOD-GLUCOSE METER KIT Glucose Meter of Choice - Kit* LANCING DEVICE Test blood sugar(s) 1 times d* ALBUTEROL SULFATE HFA 90 MCG/* Inhale 2 Puffs as instructed * EPINEPHRINE 0.3 MG/0.3 ML INJ* Use as needed for bee sting Problem List As Of Date 08/19/2018 Noted Resolved Environmental allergies [Z91.09] INVALID FOR* Major depressive disorder, recurrent episode (H*INVALID FOR* More... Obesity, Unspecified [E66.9] INVALID FOR*09/19/2009 Hypothyroidism [E03.9] INVALID FOR* Unspecified essential hypertension [I10] 03/22/2013 Adjustment disorder with depressed mood [F43.21] 12/15/2017 Unspecified asthma [J45.909] INVALID FOR* PLANTAR Fasciitis [M72.2] INVALID FOR* Calcaneal Spur [M77.30] INVALID FOR*09/19/2009 Supervision of Other High-Risk [O09.8*INVALID FOR*09/19/2009 Panic attacks [F41.0] INVALID FOR* Allergic rhinitis [J30.9] INVALID FOR*12/15/2017 Asthma [J45.909] INVALID FOR*08/13/2017 More... Esophageal reflux [K21.9] INVALID FOR* More... Hypertension [I10] INVALID FOR* More... Gallbladder disorder [K82.9] INVALID FOR*12/15/2017 Abnormal gallbladder ultrasound [R93.2] INVALID FOR*12/15/2017 Need for tetanus booster [Z23] INVALID FOR*12/15/2017 Epigastric pain [R10.13] INVALID FOR*12/15/2017 Unspecified gastritis and gastroduodenitis with*INVALID FOR* Morbid obesity with BMI of 70 and over, adult [*INVALID FOR* Cholelithiasis [K80.20] INVALID FOR* Chest pain [R07.9] INVALID FOR* Priority: A More... SUMMARY INVALID FOR*08/13/2017 Priority: A More... Borderline diabetes [R73.03] INVALID FOR*08/13/2017 Cellulitis, abdominal wall [L03.311] INVALID FOR* IFG (impaired fasting glucose) [R73.01] INVALID FOR* Abdominal pannus [E65] INVALID FOR* Vaginal odor [N89.8] INVALID FOR* Myalgia [M79.10] INVALID FOR* Arthralgia of multiple joints [M25.50] INVALID FOR* Protein-deficiency anemia [D53.0] INVALID FOR* Abdominal wall cellulitis [L03.311] INVALID FOR* Prescriptions ordered this encounter Disp Refills Start End COMPOUNDED PRESCRIPTION 1 Ea* 0 08/19/2018 Class: Print RX Sig: Bariatric Wheelchair Dx: E66.01 Z68.45 M25.50 [place] [address] [place] [address](pt currently at this facility) Medications Discontinued During This Encounter COMPOUNDED PRESCRIPTION 1 Ea* 0 06/02/2018 08/19/2018 Class: Print RX Sig: Bariatric Wheelchair Dx: E66.01 Z68.45 M25.50 Please send to address: [address] [place] [address](pt currently at this facility) Disc: Reason for discontinue is not on file. Encounter Status:Closed by SATISH HERNANDEZ LPN on 08/19/18 EMERGENCY DEPARTMENT Observed: 08/03/2018 Status: F Source: [place] SUMMARY 9:05 AM [facility] REPOSITORY [facility] Medical Records Department [address] [place] [address] Emergency Department Summary 03/08/18 0101 MR#: [id number] Acct: [id number] Name: ROSALIE HORNE Rep #: [id number] : 1975 42 From: Xiomara Bynum DO PCP: Franco Jacques DO Status: DEP ER - ER Visit Summary Date of Service: 03/08/18 Chief Complaint: [] Abdominal pain History of Present Illness: The patient is a 42 F [] who is extremely morbidly obese weighing over 500 pounds presenting with abdominal pain around her umbilical area. Her mother is at the bedside. The patient is concerned for umbilical hernia. She has an extremely large abdomen with a very large pannus. She reports she is taking Bactrim and Keflex for a nonhealing incision from over 10 years ago. In review of her pill bottles she has been noncompliant since the date of the onset of the antibiotic prescription for this wound. Her main concern however is not this nonhealing wound but rather the pain from her umbilical area. She does report a previous surgical history of cholecystectomy. Past medical history of borderline diabetes, hypertension, enlarged liver, thyroid disease. Physical Examination: [] Afebrile, vital signs stable. 42-year-old female in no acute distress. Extreme morbid obesity. Patient is conversational. Cardiovascular exam is regular rate and rhythm. Lungs are clear to auscultation however there is diminished breath sounds secondary to body habitus. Abdomen is morbidly obese with tenderness around the umbilical area. It is hard to determine on palpation if what I am palpating is an incarcerated hernia or just soft tissue/adipose. Test Results: [] Labs: CT of the abdomen/pelvis without contrast: Emergency Department Course and Treatment: [] Patient given intravenous fluid bolus, Phenergan, Dilaudid. Treatment Plan: [] Disposition: [] Impression: [] This note was generated with Streak dictation software. It may contain incorrect words, spelling, and punctuation that were not noted in review of the chart prior to signing ED Disposition - Plan for ED Patient: Chief Complaint: Abd Pain Referrals: Franco Bardales DO [Primary Care Provider] - What to do if you have Problems For any increased pain, shortness of breath, bleeding, nausea or vomiting, chest pain, or any unexpected problems, contact your Primary Care Provider. Call [facility] [facility] ([phone]) or report to the closest Emergency Room. Call 911 if necessary. Date Xiomara Bynum DO Cosigner Signature (If Indicated): Date CC: Franco Jacques DO EMERGENCY DEPARTMENT Observed: 06/29/2018 Status: F Source: [place] SUMMARY 9:13 PM [facility] REPOSITORY [facility] Medical Records Department [address] [place] [address] Emergency Department Summary 06/29/18 2106 MR#: [id number] Acct: [id number] Name: ROSALIE HORNE Rep #: [id number] : 1975 43 From: Davon Wyatt MD PCP: Franco Jacques DO Status: REG ER - ER Visit Summary Date of Service: 06/29/18 Chief Complaint: Temperature 100.1 and concern for panniculitis History of Present Illness: The patient is a 43 F who was admitted for severe sepsis secondary to polymicrobial infection of panniculus. Patient and mother report increased swelling of the right abdominal wall with mild erythema. She has had a temperature documented 100.1. She has had no shaking chills. There is no complaint of nausea vomiting. She denies dysuria, frequency, urgency hematuria. She denies diarrhea. She has numerous allergies. Her prior records were reviewed. She denies cough, shortness of breath, difficulty breathing. Please read written note for complete detail Physical Examination: Vital signs noted and only abnormality is heart rate of 102. BMI is 82.5. The right abdominal wall is slightly erythematous with induration and slight warmth. The dressing was taken down and the wound has granulation tissue without drainage. Unable to determine lymphadenopathy similar to body habitus. Heart is regular without murmur, gallop or rub. S1 and S2 are normal. Lungs are clear to auscultation with good movement of air bilaterally. Test Results: White count is normal with normal differential. There is evidence of microcytic anemia with a hemoglobin 9.2 and MCV of 78. Electro panel revealed potassium 3.3. Emergency Department Course and Treatment: Because of the elevated temperature, which is not a fever by definition blood work was obtained. Since there is no leukocytosis or shift or hemodynamic instability will treat with p.o. antibiotics Treatment Plan: Bactrim and cephalexin for 7 days Disposition: Return to nursing facility Impression: Cellulitis abdominal wall This note was generated with Streak dictation software. It may contain incorrect words, spelling, and punctuation that were not noted in review of the chart prior to signing ED Disposition - Plan for ED Patient: Disposition: Home or Assisted Living Chief Complaint: Fever Instructions: ED Infec Skin Cellulitis Prescriptions: Smz/Tmp Ds [Bactrim Ds] 1 tab PO BID #14 tab Cephalexin 500 mg PO 4X/DAY #28 cap Referrals: Franco Bardales DO [Primary Care Provider] - 3-5 Days What to do if you have Problems For any increased pain, shortness of breath, bleeding, nausea or vomiting, chest pain, or any unexpected problems, contact your Primary Care Provider. Call [facility] ([phone]) or report to the closest Emergency Room. Call 911 if necessary. 06/29/182112 <Electronically signed by Davon Wyatt MD> Date Davon Wyatt MD Cosigner Signature (If Indicated): Date CC: Yrn Hendricks MD; Franco Jacques DO LACTIC ACID Collected: 06/29/2018 Status: F Source: [place] 6:45 PM [facility] REPOSITORY Order Comment: Yes/No query for Sepsis Lactate Rule Y TYPE CODE TESTS RESULT OUT OF RANGE REFERENCE UNITS LAB L503.6005 0.4-2.0 mmol/L Normal LACTIC ACID 1.7 Performed By: #### L503.6005 #### [facility] [address] [place], [address] CBC W/DIFF, AUTOMATED Collected: 06/29/2018 Status: F Source: [place] 6:45 PM [facility] REPOSITORY TYPE CODE TESTS RESULT OUT OF RANGE REFERENCE UNITS LAB L100.1000 4.4-11.0 K/mm3 Normal WBC 10.0 LAB L100.1200 4.2-5.4 M/mm3 Low RBC 4.00 LAB L100.1300 12.0-15.0 g/dl Low HGB 9.2 LAB L100.1400 37-47 % Low HCT 31.5 LAB L100.1500 81-99 fL Low MCV 78.8 LAB L100.1600 27.0-32.0 pg Low MCH 23.0 LAB L100.1700 32-36 g/gl Low MCHC 29.2 LAB L100.1810 11.6-14.6 % High RDW CV 15.8 LAB L100.1820 35.1-43.9 fl High RDW SD 45.7 LAB L100.1900 150-450 K/mm3 Normal PLT 359 LAB L100.2000 6.2-12.0 fl Normal MPV 9.9 LAB L100.2100 47-70 % Normal NEUT% 66.3 LAB L100.2200 19-41 % Normal LY% 21.0 LAB L100.2300 0-10 % High MONO% 10.3 LAB L100.2400 0-5 % Normal EO% 1.9 LAB L100.2500 0-1 % Normal BASO% 0.2 LAB L100.2550 0.0-0.9 % Normal IM GRAN % 0.300 Result Comment: IG% - Immature Granulocytes (promyelocytes, myelocytes and metamyelocytes) > 1% indicates that a LEFT SHIFT is Present. LAB L100.2620 2.0-7.7 X10 3/uL Normal Absolute Neut 6.6 LAB L100.2720 0.83-4.51 X10 3/ul Normal Absolute Lymph 2.09 Performed By: #### L100.0100 #### [facility] [address] [place], [place], [id number] BASIC METABOLIC Collected: 06/29/2018 Status: F Source: [place] PROFILE (BMP) 6:45 PM [facility] REPOSITORY TYPE CODE TESTS RESULT OUT OF RANGE REFERENCE UNITS LAB L501.0100 74-106 mg/dL Normal GLU 100 Result Comment: Fasting Glucose result from 100 to 125 mg/dL suggests IMPAIRED HOMEOSTASIS per A.D.A. criteria. Please note revised GLUCOSE reference range effective 2017. LAB L501.1000 7-18 mg/dL Normal BUN 13 LAB L501.1100 0.55-1.02 mg/dL Normal CREAT,SERUM 0.60 Result Comment: The validity of the calculated GFR AND GFRAA in patients over 70 years has not been determined. Clinical correlation is essential. LAB L501.1110 >60 mL/min Normal EST GFR 115 Result Comment: Non- GFR Calc LAB L501.1115 >60 mL/min Normal EST GFR - AA 139 Result Comment: GFR Calc LAB L501.1255 ml/min Normal Estimated CRCL 91.23 LAB L501.1300 10-20 RATIO High BUN/CRE 21.5 LAB L501.2200 8.5-10 mg/dL Normal .1 CA 9.0 LAB L501.5300 136-14 mmol/L Normal 5 NA 136 LAB L501.5600 3.5-5. mmol/L Low 1 K 3.3 LAB L501.5900 98-107 mmol/L Normal CL 98 LAB L501.6100 21.0-3 mmol/L Normal 2.0 CO2 29.0 LAB L501.6200 5-15 Normal GAP 9 Performed By: #### L500.2500 #### [facility] [address] [place], [address] DISCHARGE SUMMARY Observed: 05/21/2018 Status: F Source: [place] 12:18 PM [facility] REPOSITORY [facility] Medical Records Department [facility] [place] [address] Discharge Summary 05/21/18 1205 MR#: [id number] Acct: [id number] Name: ROSALIE HORNE Tara Rep #: [id number] : 1975 42 From: Cuca Mast PCP: Franco Jacques DO Status: ADM IN Y [facility] Dis[facility] Date and Diagnosis - Problem List Patient Problems: Active and Suspected Problems Incisional hernia (Acute) Date of Admission: 05/06/18 Date of Discharge: 05/21/18 - Primary Discharge Diagnosis Active and Suspected Problems (1) Severe Sepsis secondary to Polymicrobial Acute Panniculitis w/ Necrotizing Infection w/ Non-healing Ulcers (Wound Cx methicillin-resistant staph epidermidis and corynebacterium, Wound OR Cx Enterococcus faecalis, staph hominis hominis and gram- positive rods) w/ Intertrigo, Concurrent RLE anterior tidwell Cellulitis RULED OUT, felt secondary to Chronic Venous Stasis Changes, Failed outpatient Abx Therapies (2) Acute on Chronic Anemia secondary to Operative Intervention and Blood Loss (3) Hypertension (4) Diet Controlled Diabetes mellitus type II (5) Morbid Obesity (6) Hypothyroidism (05/11/18 TSH obtained 47.40, acute setting, repeated TSH as clinically improved w/ FT4 to assess regimen change needs, TSH 4.27, FT4 1.64, recommended repeat 4-6 weeks given acute presentation) (7) Allergic rhinitis (8) Anxiety and Depression (9) GERD (10) MARCE, CPAP non-compliant. (11) Asthma (12) Hypokalemia - Secondary Discharge Diagnosis Chronic Problems Erythema intertrigo (Chronic) abdominal wall skin crease intertrigo Abdominal panniculus, symptomatic (Chronic) Skin ulcer of abdominal wall with fat layer exposed (Chronic) Anxiety and depression (Chronic) Allergic rhinitis (Chronic) MARCE (obstructive sleep apnea) (Chronic) not on CPAP (pt refusal) Obesity, Class III, BMI 40-49.9 (morbid obesity) (Chronic) Asthma (Chronic) Super-super obese (Chronic) Prediabetes (Chronic) Hypertension (Chronic) Hypothyroid (Chronic) Hospital Course and Treatment Dr. Hendricks Surgery, Plastic Dr. Soriano Infectious Disease Operations: - - OR 05/11/18 with excisional debridement of nonhealing ulcer and skin and subcutaneous tissue for necrotizing soft tissue infection and panniculectomy with VAC placement following per Dr. Hendricks. Procedures: EKG Summary of Care Provided: The patient is a 42 y/o F w/ PMHx: Morbid Obesity, Asthma, MARCE refusing to wear CPAP, Pre-Diabetes mellitus mellitus, HTN, GERD, Anxiety and Depression, Allergic Rhinitis, Hypothyroidism who presented to the [facility] ED on 05/06/18 with history of prolonged difficulties w/ abdominal wall/pannicular cellulitis most recently treated inpatient 2 months prior at [facility] with improvement; however, worsened again recently w/ PCP directed abx attempt outpatient but not resolving with no associated fevers or chills. Patient admitted and treated for Severe Sepsis secondary to Polymicrobial Acute Panniculitis w/ Necrotizing Infection w/ Non-healing Ulcers (Wound Cx methicillin-resistant staph epidermidis and corynebacterium, Wound OR Cx Enterococcus faecalis, staph hominis hominis and gram-positive rods) w/ Intertrigo, Concurrent RLE anterior tidwell Cellulitis RULED OUT, felt secondary to Chronic Venous Stasis Changes, Failed outpatient Abx Therapies. ED evaluation w/ tachycardia, increased RR, elevated LA. Admitted to [place], maintained initially on IV vanc and zosyn-->transitioned to vanc per ID and clinda per Surgery, Wound Cx methicillin-resistant staph epidermidis and corynebacterium and Wound Cx OR w/ Enterococcus faecalis, staph hominis hominis and gram-positive rods. OR 05/11/18 with excisional debridement of nonhealing ulcer and skin and subcutaneous tissue for necrotizing soft tissue infection and panniculectomy with VAC placement following. Bld Cx NGTD. Infectious disease and Plastic Surgery consulted and followed. During admission patient w/ acute on Chronic Anemia secondary to operative interventions and blood loss. Patient w/ diet Controlled Diabetes mellitus type II, not on regimen upon presentation, confirmed HgbA1c 5.7%. Weight loss and lifestyle changes encouraged, nutrition consulted for education and teaching. Continued home synthroid regimen. 05/11/18 TSH obtained 47.40, acute setting, repeated TSH as clinically improved w/ FT4 to assess regimen change needs, TSH 4.27, FT4 1.64 with recommended repeat in 4-6 weeks given acute presentation and not marked since initial check. Encouraged MARCE CPAP compliance as not using. Upon discharge to SNF planned follow- up with Plastic Surgery, ongoing Wound Care, ID as needed in addition to her PCP w/ lab trending (weekly bmp, cbc, vanc trough) w/ Vanc usage per ID in addition to oral clindamycin with planned 14 days total regimen w/ completion date: 05/26/18 and VAC changes MWF. DAY OF DISCHARGE PROGRESS NOTE: Subjective: Patient without acute event overnight per self and nursing report. Patient with back off currently with some serosanguineous drainage but not marketed with planned VAC replacement at facility. Patient denies fever, chills, nausea, emesis, abdominal pain, chest pain or dyspnea. Patient agreeable to discharge to SNF for ongoing antibiotic therapy, wound care, physical and occupational therapies. Patient will be discharged with follow-up with primary care physician, Plastic surgery as well as Infectious disease as needed. Objective: T 98, heart rate 97, BP 124/82, respiratory rate 18, 96% on room air. Physical Examination: General: awake, alert, oriented x 3 and cooperative, seated upright in the bed in no apparent distress. Skin: normal color, turgor, no icterus, cyanosis except for markedly improved abdominal erythema, status post operative intervention, dressing packing in place w/ mild serosanguineous drainage, VAC off. HEENT: AT/NC, EOMI, PERRLA, MMM. Lungs: Diminished BS BL bases, distant, mild effort, no rales, ronchi or wheezing. Heart: Regular rate and regular rhythm; no gallop, rub audible. Abdomen: soft, morbidly obese, notable pannus, s/p OR as noted, see skin, expected mild TTP but notable improved since initial presentation, ND but difficult assessment given habitus, distant BS. Extremities: no cyanosis, clubbing, see skin. Neurological: patient awake, alert, oriented x 3; cognitive function intact; pupils equally reactive to light and accomodation; cranial nerves II-XII grossly normal, moving all 4 extremities, no focal deficits, strength improved, moderately globally decreased secondary to habitus and acute presentation. Psychiatric: affect appears normal, no acute evidence of depressive or anxiety feelings. Assessment and Plan: Please see hospital summary above. Home Medications: Medications to take at Discharge Lisinopril/Hydrochlorothiazide [Zestoretic 07/16.5 Tablet] 1 tablet PO DAILY 03/08/18 Loratadine [Claritin] 10 mg PO DAILY 03/08/18 Montelukast Sodium [Singulair] 10 mg PO DAILY 03/08/18 Omeprazole [Prilosec] 20 mg PO DAILY 03/08/18 Sertraline HCl [Zoloft] 100 mg PO DAILY 03/08/18 Dimethicone/Da/Vit A,C,E/Kristian [Gold Mustafa Ult Diabetic Cream] 1 applic TP DAILY PRN PRN 05/06/18 Levothyroxine Sodium [Synthroid] 300 mcg PO DAILY 05/06/18 Naproxen Sodium [Aleve] 440 mg PO Q12H PRN PRN 05/06/18 Vancomycin IV 1,500 mg IV Q12H #16 vial 05/17/18 Acetaminophen [Tylenol Tablet] 650 mg PO Q6H PRN PRN tablet 05/19/18 Albuterol Aerosols [Ventolin Aerosols] 2.5 mg INHALATION Q2H PRN PRN #1 box 05/19/18 Clindamycin [Cleocin] 300 mg PO TID 7 Days capsule 05/19/18 Nystatin Powder [Mycostatin Powder] 1 applic TOPICAL TID #1 bottle 05/19/18 Oxycodone [Oxyir] 5 - 10 mg PO Q4H PRN PRN 5 Days #60 tab 05/19/18 Following Prescrptions Were Given to Patient: Albuterol Aerosols [Ventolin Aerosols] 2.5 mg INHALATION Q2H PRN PRN #1 box PRN Reason: dyspnea, wheezing Oxycodone [Oxyir] 5 - 10 mg PO Q4H PRN PRN 5 Days #60 tab PRN Reason: Moderate Pain (pain scale 4-5) Vancomycin IV 1,500 mg IV Q12H #16 vial Clindamycin [Cleocin] 300 mg PO TID 7 Days capsule Nystatin Powder [Mycostatin Powder] 1 applic TOPICAL TID #1 bottle Primary Care Physician: Franco Bardales DO [Primary Care Provider] - Please follow up with your Primary Care Physician in: 1 week. Please Follow Up With: Yrn Hendricks MD When: in 1-2 weeks at the wound care center. Please Follow Up With: Olivier Soriano MD When: As needed, will continue to follow routine labs while on antibiotics Disposition: Correction facility Minutes spent on discharge:: 35 Patient Condition:: Fair Medical Necessity - Tobacco Use Smoking Status: Never smoker Tobacco Use: Non-smoker Meaningful Use Info Meaningful Use Diagnoses (Choose all that apply): None applicable Code Visit Inpatient E AND M: 17250 Disch Hosp 05/21/18 1218 <Electronically signed by Cuca Mast > Date Cuca Mast Cosigner Signature (if applicable): Date CC: Cuca Mast; Franco Jacques DO Signed PROGRESS Observed: 05/21/2018 Status: COMPLETED Source: [place] 9:46 AM [facility] REPOSITORY HNO ID: [id number] Author: Porfirio Nguyen (Rn) Service: (none) Author Type: Registered Nurse Type: Progress Notes Filed: 05/21/2018 9:52 AM Note Text: PRIMARY CARE COORDINATION FOLLOW-UP NOTE Provider Action/CA Spk with [facility] Lindsay Joe RN CM, Pt remains Inpt awaiting precert authorization from Care source with anticipated transfer to [place] for IV ATB s/p Panniculectomy. Patient identified by name and date of . YES Wendy Monroy RN May 21, 2018 VANCOMYCIN, TROUGH Collected: 05/21/2018 Status: F Source: [facility] 7:42 AM [facility] REPOSITORY Order Comment: Time Medication is to be Given? 0730 TYPE CODE TESTS RESULT OUT OF RANGE REFERENCE UNITS LAB L501.8820 5.0-15.0 ug/mL Normal VANCO, TROUGH 8.2 Result Comment: VANCOMYCIN STANDARED DRUG THERAPY TROUGH LEVEL: 5.0 - 15.0 mg/L VANCOMYCIN HIGH INTENSITY THERAPY TROUGH LEVEL: 15.0 - 20.0 mg/L High Intensity therapy recommended for serious life threatening infections include: - Meningitis -Endocarditis -Pneumonia (Ventilator/Healtcare Associated) -Sepsis PLEASE CONTACT PHARMACY SERVICES (#[id number]) FOR INTERPRETATION OF RESULTS. Performed By: #### L501.8820 #### [facility] [address] [place], [place] [address]tara. [place], [address] [facility] Observed: 05/21/2018 Status: COMPLETED Source: [place] 12:00 AM [facility] REPOSITORY Patient Outreach (FAMPWS) ROSALIE HORNE ([id number]) 1975 F Date Time Provider Department 05/21/18 MONROY M WENDY (RN) FAMPWS During your visit today, we recorded the following information about you: Wendy Monroy RN 05/21/2018 9:52 AM Signed PRIMARY CARE COORDINATION FOLLOW-UP NOTE Provider Action/FYI Spk with [facility] Lindsay Joe RN CM, Pt remains Inpt awaiting precert authorization from Care source with anticipated transfer to [place] for IV ATB s/p Panniculectomy. Patient identified by name and date of . YES Wendy Monroy RN May 21, 2018 Allergies As of Date: 05/21/2018 Noted Allergy Reaction ASA (ASPIRIN) 01/20/2012 14 - Other: See Comments Comments: Upset stomach BEES 07/21/2005 7 - Swelling BENADRYL (DIPHENHYDRAMINE HCL) 07/21/2005 4 - Hives CODEINE 07/21/2005 1 - Mental Status Change Comments: HALLUCINATIONS FLAGYL (METRONIDAZOLE HCL) 03/08/2018 14 - Other: See Comments Comments: Per pt, topical flagyl irritated her incision and po flagyl gave her GI upset. IBUPROFEN 07/21/2005 8 - GI Upset PENICILLINS 05/10/2015 8 - GI Upset Date Reviewed: 05/06/2018 Reviewed by: Satish Hernandez LPN - Fully Assessed Reason for Visit: Facilities Supervisor Hospital Follow Up [4408] Cmt: [facility] Prescriptions as of 05/21/2018 Sig: TRANSPARENT DRESSINGS 4 12/10 * Apply 1 application to affect* GAUZE BANDAGE 4 X 4 Apply 1 application to affect* SODIUM CHLORIDE 0.75 X 39 B* Apply 1 application to affect* ADHESIVE TAPE 2 X 10 YARD Apply 1 application to affect* SODIUM CHLORIDE 0.9 % IRRIGAT* Irrigate 3-5 mL as instructed* LANCETS Test blood sugar(s) 1 times d* BLOOD SUGAR DIAGNOSTIC STRIPS Test blood sugar(s) 1 times d* NON-ADHERENT BANDAGE 5 X 9 Apply 1 application to affect* BOOST ORAL Take 1 Can by mouth twice dottie* SERTRALINE 100 MG TABLET Take 100 mg by mouth once dottie* LEVOTHYROXINE 300 MCG TABLET Take 1 tablet by mouth once d* PROTEIN ORAL POWDER Take 1 Dose by mouth twice da* OMEPRAZOLE 20 MG CAPSULE,RACHID* Take 1 capsule by mouth once * LISINOPRIL 10 MG-HYDROCHLOROT* Take 1 tablet by mouth once d* MONTELUKAST 10 MG TABLET Take 1 tablet by mouth once d* BLOOD-GLUCOSE METER KIT Glucose Meter of Choice - Kit* LANCING DEVICE Test blood sugar(s) 1 times d* ALBUTEROL SULFATE HFA 90 MCG/* Inhale 2 Puffs as instructed * EPINEPHRINE 0.3 MG/0.3 ML INJ* Use as needed for bee sting Problem List As Of Date 05/21/2018 Noted Resolved Environmental allergies [Z91.09] INVALID FOR* Major depressive disorder, recurrent episode (H*INVALID FOR* More... Obesity, Unspecified [E66.9] INVALID FOR*09/19/2009 Hypothyroidism [E03.9] INVALID FOR* Unspecified essential hypertension [I10] 03/22/2013 Adjustment disorder with depressed mood [F43.21] 12/15/2017 Unspecified asthma [J45.909] INVALID FOR* PLANTAR Fasciitis [M72.2] INVALID FOR* Calcaneal Spur [M77.30] INVALID FOR*09/19/2009 Supervision of Other High-Risk [O09.8*INVALID FOR*09/19/2009 Panic attacks [F41.0] INVALID FOR* Allergic rhinitis [J30.9] INVALID FOR*12/15/2017 Asthma [J45.909] INVALID FOR*08/13/2017 More... Esophageal reflux [K21.9] INVALID FOR* More... Hypertension [I10] INVALID FOR* More... Gallbladder disorder [K82.9] INVALID FOR*12/15/2017 Abnormal gallbladder ultrasound [R93.2] INVALID FOR*12/15/2017 Need for tetanus booster [Z23] INVALID FOR*12/15/2017 Epigastric pain [R10.13] INVALID FOR*12/15/2017 Unspecified gastritis and gastroduodenitis with*INVALID FOR* Morbid obesity with BMI of 70 and over, adult [*INVALID FOR* Cholelithiasis [K80.20] INVALID FOR* Chest pain [R07.9] INVALID FOR* Priority: A More... SUMMARY INVALID FOR*08/13/2017 Priority: A More... Borderline diabetes [R73.03] INVALID FOR*08/13/2017 Cellulitis, abdominal wall [L03.311] INVALID FOR* IFG (impaired fasting glucose) [R73.01] INVALID FOR* Abdominal pannus [E65] INVALID FOR* Vaginal odor [N89.8] INVALID FOR* Myalgia [M79.1] INVALID FOR* Arthralgia of multiple joints [M25.50] INVALID FOR* Protein-deficiency anemia [D53.0] INVALID FOR* Abdominal wall cellulitis [L03.311] INVALID FOR* Encounter Status:Closed by WENDY MONROY on 05/21/18 PROGRESS Observed: 05/20/2018 Status: COMPLETED Source: [place] 2:41 PM [facility] REPOSITORY HNO ID: [id number] Author: Porfirio Nguyen (Rn) Service: (none) Author Type: Registered Nurse Type: Progress Notes Filed: 05/20/2018 3:02 PM Note Text: PRIMARY CARE COORDINATION QUICK NOTE Provider Action/FYI 1. Chart review, Pt discharged to SNF 05/19/18 for Vac changes surgical wound M/W/F, Atb therapy, f/u at wound Care Center in 1-2 weeks. Hgb A1C 5.7. 2.Discharge documentation forwarded to Dr. Bardales 4. No Care Coordination needs at this time. Patient identified by name and date . Wendy Monroy RN May 20, 2018 2:41 PM CBC W/DIFF, AUTOMATED Collected: 05/20/2018 Status: F Source: [place] 10:15 AM [facility] REPOSITORY Order Comment: NURSE DRAW UTO TO OBTAIN FROM LINE CALLED LAB TO DRAW. TYPE CODE TESTS RESULT OUT OF RANGE REFERENCE UNITS LAB L100.1000 4.4-11.0 K/mm3 Normal WBC 10.5 LAB L100.1200 4.2-5.4 M/mm3 Low RBC 3.42 LAB L100.1300 12.0-15.0 g/dl Low HGB 9.0 LAB L100.1400 37-47 % Low HCT 29.8 LAB L100.1500 81-99 fL Normal MCV 87.1 LAB L100.1600 27.0-32.0 pg Low MCH 26.3 LAB L100.1700 32-36 g/gl Low MCHC 30.2 LAB L100.1810 11.6-14.6 % High RDW CV 14.9 LAB L100.1820 35.1-43.9 fl High RDW SD 47.7 LAB L100.1900 150-450 K/mm3 Normal PLT 324 LAB L100.2000 6.2-12.0 fl Normal MPV 9.7 LAB L100.2100 47-70 % Normal NEUT% 66.6 LAB L100.2200 19-41 % Normal LY% 20.3 LAB L100.2300 0-10 % Normal MONO% 7.6 LAB L100.2400 0-5 % Normal EO% 4.7 LAB L100.2500 0-1 % Normal BASO% 0.4 LAB L100.2550 0.0-0.9 % Normal IM GRAN % 0.400 Result Comment: IG% - Immature Granulocytes (promyelocytes, myelocytes and metamyelocytes) > 1% indicates that a LEFT SHIFT is Present. LAB L100.2620 2.0-7.7 X10 3/uL Normal Absolute Neut 7.0 LAB L100.2720 0.83-4.51 X10 3/ul Normal Absolute Lymph 2.13 Performed By: #### L100.0100 #### [facility] [address], [address] BASIC METABOLIC Collected: 05/20/2018 Status: F Source: [place] PROFILE (BMP) 10:15 AM [facility] REPOSITORY Order Comment: NURSE DRAW. UTO TO OBTAIN FROM LINE CALLED LAB TO DRAW. TYPE CODE TESTS RESULT OUT OF RANGE REFERENCE UNITS LAB L501.0100 74-106 mg/dL Normal GLU 104 Result Comment: Fasting Glucose result from 100 to 125 mg/dL suggests IMPAIRED HOMEOSTASIS per A.D.A. criteria. Please note revised GLUCOSE reference range effective 2017. LAB L501.1000 7-18 mg/dL Normal BUN 11 LAB L501.1100 0.55-1.02 mg/dL Normal CREAT,SERUM 0.66 Result Comment: The validity of the calculated GFR AND GFRAA in patients over 70 years has not been determined. Clinical correlation is essential. LAB L501.1110 >60 mL/min Normal EST GFR 104 Result Comment: Non- GFR Calc LAB L501.1115 >60 mL/min Normal EST GFR - AA 126 Result Comment: GFR Calc LAB L501.1255 ml/min Normal Estimated CRCL 83.79 LAB L501.1300 10-20 RATIO Normal BUN/CRE 16.7 LAB L501.2200 8.5-10 mg/dL Normal .1 CA 8.8 LAB L501.5300 136-14 mmol/L Normal 5 NA 139 LAB L501.5600 3.5-5. mmol/L Normal 1 K 4.2 LAB L501.5900 98-107 mmol/L Normal CL 104 LAB L501.6100 21.0-3 mmol/L Normal 2.0 CO2 26.0 LAB L501.6200 5-15 Normal GAP 9 Performed By: #### L500.2500 #### [facility] [address] [place], [address] IRON+IRON BINDING Collected: 05/20/2018 Status: F Source: [facility] 10:15 AM [facility] REPOSITORY TYPE CODE TESTS RESULT OUT OF RANGE REFERENCE UNITS LAB L503.6075 250-450 ug/dL TIBC Normal 338 LAB L503.6150 50-170 ug/dL Low IRON 20 LAB L503.6250 15.0-55.0 % Low IRON SATURATION 5.9 Performed By: #### L503.6030, L503.6550, L506.0250 #### [facility] [address] [place], [address] FERRITIN Collected: 05/20/2018 Status: F Source: [place] 10:15 AM [facility] REPOSITORY TYPE CODE TESTS RESULT OUT OF RANGE REFERENCE UNITS LAB L503.6550 8-252 ng/mL Normal FERRITIN 95 Performed By: #### L503.6030, L503.6550, L506.0250 #### [facility] [address] [place], [address] FOLATES, (FOLIC ACID) Collected: 05/20/2018 Status: F Source: [place] 10:15 AM [facility] REPOSITORY TYPE CODE TESTS RESULT OUT OF RANGE REFERENCE UNITS LAB L506.0250 3.1-55.4 ng/mL Normal FOLATES 13.30 Result Comment: Slight Hemolysis, Result may be falsely increased. Performed By: #### L503.6030, L503.6550, L506.0250 #### [facility] [address] [place], [address] VITAMIN B12 Collected: 05/20/2018 Status: F Source: [place] 10:15 AM [facility] REPOSITORY TYPE CODE TESTS RESULT OUT OF RANGE REFERENCE UNITS LAB L503.0105 211-911 pg/mL Normal Vitamin B12 392 Performed By: #### L503.0105 #### [facility] [address] [place], [address] CXR FOR LINE PLACEMENT Observed: 05/20/2018 Status: F Source: [place] 9:50 AM [facility] REPOSITORY [facility] Imaging Services [address] [place] [address] CXR for Line Placement MR#: [id number] Acct: [id number] Name: ROSALIE HORNE Rep #: [id number] : 1975 F 42 From: Michel Shannon MD PCP: Franco Jacques DO Status: ADM IN Study: CXR for Line Placement Date of Exam: 05/20/18 Exam# [id number] Ordering Dr: Cuca Mast STUDY: X-RAY CHEST REASON FOR EXAM: Female, 42 years old. PICC line placement. TECHNIQUE: Single AP portable view of the chest. COMPARISON: Comparison is made with prior study dated May 06, 2018. FINDINGS: A right-sided PICC line catheter is seen with the tip in the midportion of the superior vena cava. Stable mild elevation of the right hemidiaphragm. There is no demonstrated pleural abnormality. Normal size heart. Normal mediastinum and donn. Normal visualized pulmonary arteries. Normal visualized aortic arch and descending thoracic aorta. Normal visualized thoracic spine. Normal visualized ribs, clavicles, and shoulders. There is no demonstrated abnormality of the visualized soft tissue structures of the upper abdomen. RAD/CXR for Line Placement IMPRESSION: The tip of the right PICC line catheter is in the midportion of the superior vena cava. Electronically Signed: Michel Shannon MD at 12:23 EDT Tel [phone], Service support , CC: Cuca Mast; Franco Jacques DO Efficiency Manager: Signed ALYCIATOUTRBREEZY Observed: 05/20/2018 Status: COMPLETED Source: [place] 12:00 AM [facility] REPOSITORY Patient Outreach (FAMPWS) ROSALIE HORNE ([id number]) 1975 F Date Time Provider Department 05/20/18 PORFIRIO NGUYEN (RN) [facility] During your visit today, we recorded the following information about you: Wendy Monroy RN 05/20/2018 3:02 PM Signed PRIMARY CARE COORDINATION QUICK NOTE Provider Action/FYI 1. Chart review, Pt discharged to SNF 05/19/18 for Vac changes surgical wound M/W/F, Atb therapy, f/u at wound Care Center in 1-2 weeks. Hgb A1C 5.7. 2.Discharge documentation forwarded to Dr. Bardales 4. No Care Coordination needs at this time. Patient identified by name and date . Wendy Monroy RN May 20, 2018 2:41 PM Allergies As of Date: 05/20/2018 Noted Allergy Reaction ASA (ASPIRIN) 01/20/2012 14 - Other: See Comments Comments: Upset stomach BEES 07/21/2005 7 - Swelling BENADRYL (DIPHENHYDRAMINE HCL) 07/21/2005 4 - Hives CODEINE 07/21/2005 1 - Mental Status Change Comments: HALLUCINATIONS FLAGYL (METRONIDAZOLE HCL) 03/08/2018 14 - Other: See Comments Comments: Per pt, topical flagyl irritated her incision and po flagyl gave her GI upset. IBUPROFEN 07/21/2005 8 - GI Upset PENICILLINS 05/10/2015 8 - GI Upset Date Reviewed: 05/06/2018 Reviewed by: Satish Hernandez LPN - Fully Assessed Reason for Visit: Facilities Supervisor- Other [[id number]] Cmt: D/C to [facility] 05/19/18 Reason For Visit History Recorded Prescriptions as of 05/20/2018 Sig: TRANSPARENT DRESSINGS 4 3/ * Apply 1 application to affect* GAUZE BANDAGE 4 X 4 Apply 1 application to affect* SODIUM CHLORIDE 0.75 X 39 B* Apply 1 application to affect* ADHESIVE TAPE 2 X 10 YARD Apply 1 application to affect* SODIUM CHLORIDE 0.9 % IRRIGAT* Irrigate 3-5 mL as instructed* LANCETS Test blood sugar(s) 1 times d* BLOOD SUGAR DIAGNOSTIC STRIPS Test blood sugar(s) 1 times d* NON-ADHERENT BANDAGE 5 X 9 Apply 1 application to affect* BOOST ORAL Take 1 Can by mouth twice dottie* SERTRALINE 100 MG TABLET Take 100 mg by mouth once dottie* LEVOTHYROXINE 300 MCG TABLET Take 1 tablet by mouth once d* PROTEIN ORAL POWDER Take 1 Dose by mouth twice da* OMEPRAZOLE 20 MG CAPSULE,RACHID* Take 1 capsule by mouth once * LISINOPRIL 10 MG-HYDROCHLOROT* Take 1 tablet by mouth once d* MONTELUKAST 10 MG TABLET Take 1 tablet by mouth once d* BLOOD-GLUCOSE METER KIT Glucose Meter of Choice - Kit* LANCING DEVICE Test blood sugar(s) 1 times d* ALBUTEROL SULFATE HFA 90 MCG/* Inhale 2 Puffs as instructed * EPINEPHRINE 0.3 MG/0.3 ML INJ* Use as needed for bee sting Problem List As Of Date 05/20/2018 Noted Resolved Environmental allergies [Z91.09] INVALID FOR* Major depressive disorder, recurrent episode (H*INVALID FOR* More... Obesity, Unspecified [E66.9] INVALID FOR*09/19/2009 Hypothyroidism [E03.9] INVALID FOR* Unspecified essential hypertension [I10] 03/22/2013 Adjustment disorder with depressed mood [F43.21] 12/15/2017 Unspecified asthma [J45.909] INVALID FOR* PLANTAR Fasciitis [M72.2] INVALID FOR* Calcaneal Spur [M77.30] INVALID FOR*09/19/2009 Supervision of Other High-Risk [O09.8*INVALID FOR*09/19/2009 Panic attacks [F41.0] INVALID FOR* Allergic rhinitis [J30.9] INVALID FOR*12/15/2017 Asthma [J45.909] INVALID FOR*08/13/2017 More... Esophageal reflux [K21.9] INVALID FOR* More... Hypertension [I10] INVALID FOR* More... Gallbladder disorder [K82.9] INVALID FOR*12/15/2017 Abnormal gallbladder ultrasound [R93.2] INVALID FOR*12/15/2017 Need for tetanus booster [Z23] INVALID FOR*12/15/2017 Epigastric pain [R10.13] INVALID FOR*12/15/2017 Unspecified gastritis and gastroduodenitis with*INVALID FOR* Morbid obesity with BMI of 70 and over, adult [*INVALID FOR* Cholelithiasis [K80.20] INVALID FOR* Chest pain [R07.9] INVALID FOR* Priority: A More... SUMMARY INVALID FOR*08/13/2017 Priority: A More... Borderline diabetes [R73.03] INVALID FOR*08/13/2017 Cellulitis, abdominal wall [L03.311] INVALID FOR* IFG (impaired fasting glucose) [R73.01] INVALID FOR* Abdominal pannus [E65] INVALID FOR* Vaginal odor [N89.8] INVALID FOR* Myalgia [M79.1] INVALID FOR* Arthralgia of multiple joints [M25.50] INVALID FOR* Protein-deficiency anemia [D53.0] INVALID FOR* Abdominal wall cellulitis [L03.311] INVALID FOR* Encounter Status:Closed by WENDY MONROY on 05/20/18 TRANSFER TO EXTENDED Observed: 05/19/2018 Status: F Source: [facility] 12:58 PM [facility] REPOSITORY [facility] Medical Records Department [address] [place] [address] Transfer to [facility] Care MR#: [id number] Acct: [id number] Name: ROSALIE HORNE Rep #: [id number] : 1975 42 From: Cuca Mast PCP: Franco Jacques DO Status: ADM IN ROSALIE HORNE (Patient) (Health Ins. Claim No.) (Day of Discharge to Facility) Certification of patient admission REQUIRED AT TIME OF ADMISSION. I CERTIFY THAT POST-HOSPITAL ECF SERVICES ARE REQUIRED TO BE GIVEN ON AN IN-PATIENT BASIS BECAUSE OF THE ABOVE NAMED PATIENT'S NEED FOR LONG TERM CARE ON A CONTINUING BASIS FOR THE CONDITION(S) FOR WHICH HE/SHE WAS RECEIVING IN-PATIENT HOSPITAL SERVICES PRIOR TO HIS/HER TRANSFER TO THE ECF. 05/19/18 1258 <Electronically signed by Cuca Mast > Date Cuca Mast - Diet 05/11/18 22:23 Diet: Calorie Controlled and Cardiac Diet Type of Dietary Supplement:: Glucerna Shake Is pt able to select menu?: Yes Diet Comments: prefers chocolate glucerna How many daily calories?: 1600 calorie - Routine Orders/Code Status Enema Type: Fleetz Enema Frequency: Daily PRN Suppository Type: Dulcolax 10mg Suppository Frequency: Daily PRN Keep PO Greater than or Equal to (%): 92 Routine Lab Work: - - CBC, BMP, vanc trough weekly while on the antibiotic therapy with results to be faxed to Dr. Soriano. Code Status: Full Code - Wound(s) LOWER ABD Wound Type: non healing surgical incision Dressing Change: VAC MWF mid abd Wound Type: Surgical Incision Dressing Change: mepitel/ ABDs/ Medipore/ betadine diamond polisher kerlix - Suggestions for Active Care Change Position every (hours): 3 Hours to sit in a chair: 6 Times a day to sit in chair: 3 - Therapies Weight Bearing: Weight bearing as tolerated Physical Therapy: Eval and Treat Occupational Therapy: Eval and Treat - Problem/Diagnosis (1) Panniculitis Status: Acute Current Visit: No (2) Anxiety and depression Status: Chronic Current Visit: No (3) Allergic rhinitis Status: Chronic Current Visit: No (4) MARCE (obstructive sleep apnea) Status: Chronic Comment: not on CPAP (pt refusal) Current Visit: No (5) Asthma Status: Chronic Current Visit: No (6) Prediabetes Status: Chronic Current Visit: No (7) Hypertension Status: Chronic Current Visit: No (8) Hypothyroid Status: Chronic Current Visit: No - Allergies/Procedures Done in Hospital Allergies/Adverse Reactions: Allergies diphenhydramine HCl [From Benadryl] Allergy (Verified 05/06/18 15:13) Hives metronidazole [From Flagyl] Allergy (Verified 05/06/18 15:13) Rash venom-honey bee [bee venom (honey bee)] Allergy (Verified 05/06/18 15:13) Anaphylaxis aspirin Adverse Reaction (Verified 05/06/18 15:13) Upset Stomach codeine Adverse Reaction (Verified 05/06/18 15:13) Other ibuprofen Adverse Reaction (Verified 05/06/18 15:13) Upset Stomach Penicillins Adverse Reaction (Verified 05/06/18 15:13) Nausea Procedures: - - OR 05/11/18 with excisional debridement of nonhealing ulcer and skin and subcutaneous tissue for necrotizing soft tissue infection and panniculectomy with VAC placement following. - Type of Care/Length of Stay Estimated LOS: Convalescent Care Less Than 30 days Type of Care Needed: Skilled Rehab Potential: Good Prognosis: Good - Additional Orders/Day of Discharge Additional Orders: (1) VAC changes MWF with Wound RN to follow. (2) Fall precautions. (3) HOB > 30 with continued IS 10x/hr 7a-7p. (4) Encourage CPAP usage, non-compliant, q HS. (5) Continue nutrition consultation for morbid obesity. (6) Recommendation repeat TSH, Free T4 in 4-6 weeks as abnormal during admission but obtained during acute illness. (7) Noted Diabetes history, HgBA1c 5.7%, recommend continued ADA diet. H AND P will serve as current which was dated: 05/06/18 Day of Discharge: 05/17/18 - Dietary and Speech Recommendations Dietitian Recommendations/Changes: Please check current wt. Rec diet change to 2000 calorie diet. Will d/c ONS medpass - pt receiving on meal trays. Rec Royer bid to help w/ wound healing (order from pharmacy). - Follow Up Care Primary Care Physician: Franco Bardales DO [Primary Care Provider] - Please follow up with your Primary Care Physician in: 1 week. Please Follow Up With: Yrn Hendricks MD When: in 1-2 weeks at the wound care center. Please Follow Up With: Olivier Soriano MD When: As needed, will continue to follow routine labs while on antibiotics 05/19/18 1258 <Electronically signed by Cuca Mast > Date Cuca Mast CC: Adonay Hollingsworth MD; Yrn Hendricks MD; Franco Jacques DO; Olivier Soriano MD Signed THYROID STIM HORMONE Collected: 05/19/2018 Status: F Source: [place] ([place]) 9:55 AM [facility] REPOSITORY TYPE CODE TESTS RESULT OUT OF RANGE REFERENCE UNITS LAB L501.9520 0.358-3.74 uIU/mL High TSH 4.27 Performed By: #### L501.9520, L506.0400 #### [facility] [address] [place], [address] T4 FREE DIRECT Collected: 05/19/2018 Status: F Source: [place] 9:55 AM [facility] REPOSITORY TYPE CODE TESTS RESULT OUT OF REFERENCE UNITS RANGE LAB L506.0400 0.76-1.46 ng/dL High T4 FREE 1.64 DIRECT Performed By: #### L501.9520, L506.0400 #### [facility] [address] [place], [address] TRANSFER TO EXTENDED Observed: 05/17/2018 Status: F Source: [place] [facility] 11:23 AM [facility] REPOSITORY [facility] Medical Records Department [address] [place] [id number] Transfer to Extended Care MR#: [id number] Acct: [id number] Name: ROSALIE HRONE Rep #: [id number] : 1975 42 From: Lawrence Jones MD PCP: Franco Jacques DO Status: ADM IN SPEEDYROSALIE CROFT Tara (Patient) (Health Ins. Claim No.) (Day of Discharge to Facility) Certification of patient admission REQUIRED AT TIME OF ADMISSION. I CERTIFY THAT POST-HOSPITAL ECF SERVICES ARE REQUIRED TO BE GIVEN ON AN IN-PATIENT BASIS BECAUSE OF THE ABOVE NAMED PATIENT'S NEED FOR LONG TERM CARE ON A CONTINUING BASIS FOR THE CONDITION(S) FOR WHICH HE/SHE WAS RECEIVING IN-PATIENT HOSPITAL SERVICES PRIOR TO HIS/HER TRANSFER TO THE [facility]ICAL [facility]. 05/17/18 1123 <Electronically signed by Lawrence Jones MD> Date Lawrence Jones MD 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 diamond polisher kerlix - Suggestions for Active Care Change Position every (hours): 3 Hours to sit in a chair: 3 Times a day to sit in chair: 3 - Therapies Weight Bearing: Weight bearing as tolerated Physical Therapy: Eval and Treat Occupational Therapy: Eval and Treat Speech Therapy: Eval and Treat - Allergies/Procedures Done in Hospital Allergies/Adverse Reactions: Allergies diphenhydramine HCl [From Benadryl] Allergy (Verified 05/06/18 15:13) Hives metronidazole [From Flagyl] Allergy (Verified 05/06/18 15:13) Rash venom-honey bee [bee venom (honey bee)] Allergy (Verified 05/06/18 15:13) Anaphylaxis aspirin Adverse Reaction (Verified 05/06/18 15:13) Upset Stomach codeine Adverse Reaction (Verified 05/06/18 15:13) Other ibuprofen Adverse Reaction (Verified 05/06/18 15:13) Upset Stomach Penicillins Adverse Reaction (Verified 05/06/18 15:13) Nausea - Type of Care/Length of Stay Estimated LOS: Convalescent Care Less Than 30 days Type of Care Needed: Skilled Rehab Potential: Good Prognosis: Good - Additional Orders/Day of Discharge H AND P will serve as current which was dated: 05/06/18 Day of Discharge: 05/17/18 - Dietary and Speech Recommendations Dietitian Recommendations/Changes: Please check current wt. Rec diet change to 2000 calorie diet. Will d/c ONS medpass - pt receiving on meal trays. Rec Royer bid to help w/ wound healing (order from pharmacy). - Follow Up Care Primary Care Physician: Franco Bardales DO [Primary Care Provider] - Please follow up with your Primary Care Physician in: 1 week. Please Follow Up With: Yrn Hendricks MD When: in 1-2 weeks at the wound care center. Please Follow Up With: Olivier Soriano MD When: call his office. 05/17/18 1123 <Electronically signed by Lawrence Jones MD> Date Lawrence Jones MD CC: Adonay Hollingsworth MD; Yrn Hendricks MD; Franco Jacques DO; Olivier Soriano MD Signed VANCOMYCIN, TROUGH Collected: 05/17/2018 Status: F Source: [place] LEVEL 9:30 AM [facility] REPOSITORY Order Comment: Time Medication is to be Given? 1000 TYPE CODE TESTS RESULT OUT OF REFERENCE UNITS RANGE LAB L501.8820 5.0-15.0 ug/mL High VANCO, TROUGH 19.5 Result Comment: VANCOMYCIN STANDARED DRUG THERAPY TROUGH LEVEL: 5.0 - 15.0 mg/L VANCOMYCIN HIGH INTENSITY THERAPY TROUGH LEVEL: 15.0 - 20.0 mg/L High Intensity therapy recommended for serious life threatening infections include: - Meningitis -Endocarditis -Pneumonia (Ventilator/Healtcare Associated) -Sepsis PLEASE CONTACT PHARMACY SERVICES (#[id number]) FOR INTERPRETATION OF RESULTS. Performed By: #### L501.8820 #### [facility] [address] [place], [address] VANCOMYCIN, TROUGH Collected: 05/16/2018 Status: F Source: [place] L[place] 5:30 PM [facility] REPOSITORY Order Comment: Time Medication is to be Given? 1800 TYPE CODE TESTS RESULT OUT OF REFERENCE UNITS RANGE LAB L501.8820 5.0-15.0 ug/mL High VANCO, TROUGH 18.8 Result Comment: VANCOMYCIN STANDARED DRUG THERAPY TROUGH LEVEL: 5.0 - 15.0 mg/L VANCOMYCIN HIGH INTENSITY THERAPY TROUGH LEVEL: 15.0 - 20.0 mg/L High Intensity therapy recommended for serious life threatening infections include: - Meningitis -Endocarditis -Pneumonia (Ventilator/Healtcare Associated) -Sepsis PLEASE CONTACT PHARMACY SERVICES (#[id number]) FOR INTERPRETATION OF RESULTS. Performed By: #### L501.8820 #### [facility] [address], [address] VANCOMYCIN, TROUGH Collected: 05/15/2018 Status: F Source: [place] LEV[place] 8:24 AM [facility] REPOSITORY Order Comment: Comments: DRAW TROUGH LEVEL AT 0830 ON 05/15/18 Time Medication is to be Given? 0900 TYPE CODE TESTS RESULT OUT OF RANGE REFERENCE UNITS LAB L501.8820 5.0-15.0 ug/mL Normal VANCO, TROUGH 13.0 Result Comment: VANCOMYCIN STANDARED DRUG THERAPY TROUGH LEVEL: 5.0 - 15.0 mg/L VANCOMYCIN HIGH INTENSITY THERAPY TROUGH LEVEL: 15.0 - 20.0 mg/L High Intensity therapy recommended for serious life threatening infections include: - Meningitis -Endocarditis -Pneumonia (Ventilator/Healtcare Associated) -Sepsis PLEASE CONTACT PHARMACY SERVICES (#[id number]) FOR INTERPRETATION OF RESULTS. Performed By: #### L501.8820 #### [facility] [address] [place], [address] CONSULTATION Observed: 05/14/2018 Status: F Source: [place] 2:03 PM [facility] REPOSITORY [facility] Medical Records Department [address] [place] [address] Consultation 05/14/18 1356 MR#: [id number] Acct: [id number] Name: SPEEDYROSALIE E Rep #: [id number] : 1975 42 From: Olivier Soriano MD PCP: Franco Jacques DO Status: ADM IN Y [facility] Problem List (1) Necrotizing soft tissue infection Status: Acute (2) Panniculitis Status: Acute Reason for Consult: panniculitis Consulted by: Dr. Jones History of Present Illness: The patient is a 42 year old F with morbid obesity and recurrent panniculitis for several years who presented with several weeks of worsened pain, redness, swelling. Some chills. Had been at [facility] recently and d/c on iv abx. Now came to ED, taken to OR 05/[address] Hendricks. Now on iv vanc, picc in place. Feeling better but abd still sore. No n/v/d. Full ROS performed and neg except as noted above. - Medical History Past Medical History (Chronic Problems): Chronic Problems Erythema intertrigo (Chronic) abdominal wall skin crease intertrigo Abdominal panniculus, symptomatic (Chronic) Skin ulcer of abdominal wall with fat layer exposed (Chronic) Anxiety and depression (Chronic) Allergic rhinitis (Chronic) MARCE (obstructive sleep apnea) (Chronic) not on CPAP (pt refusal) Obesity, Class III, BMI 40-49.9 (morbid obesity) (Chronic) Asthma (Chronic) Super-super obese (Chronic) Prediabetes (Chronic) Hypertension (Chronic) Hypothyroid (Chronic) Allergies/Adverse Reactions: Allergies diphenhydramine HCl [From Benadryl] Allergy (Verified 05/06/18 15:13) Hives metronidazole [From Flagyl] Allergy (Verified 05/06/18 15:13) Rash venom-honey bee [bee venom (honey bee)] Allergy (Verified 05/06/18 15:13) Anaphylaxis aspirin Adverse Reaction (Verified 05/06/18 15:13) Upset Stomach codeine Adverse Reaction (Verified 05/06/18 15:13) Other ibuprofen Adverse Reaction (Verified 05/06/18 15:13) Upset Stomach Penicillins Adverse Reaction (Verified 05/06/18 15:13) Nausea Home Medications: Ambulatory Orders Medication Instructions Recorded - Social History SMOKING STATUS:: Never smoker Vital Signs Temp Pulse Resp BP Pulse Ox 98.0 F 92 20 H 119/61 99 05/14/18 09:35 05/14/18 09:35 05/14/18 09:35 05/14/18 09:35 05/14/18 10:05 Oxygen Flow Rate (L/min) 2 Oxygen Delivery Method Room Air Weight: 217.724 kg Body Mass Index (BMI) 90.6 Microbiology Past 72 Hours 05/11/18 Unknown Gram Stain - Final - Other Studies Radiology: [] reviewed Other Studies: [] Route of nutrition/ use of supplements: [] Nutritional Intake: [] IV Site: [] Vitale Catheter: [] - Physical Exam General: Alert, Oriented x3, Cooperative, No apparent distress HEENT: Atraumatic, PERRLA, EOMI Neck: Supple, No Nodes Lungs: Clear to auscultation, Normal air movement Cardiovascular: Regular rate, Regular Rhythm Abdomen: Soft, Non Tender, Non-Distended Extremities: Edema Skin: Ulcer/ Wound - wound vac in place over abd pannus IV Site: PICC, without redness Musculoskeletal: No Tenderness to Palpation of Joints or Extremities Neurological: Cranial nerves II-XII grossly intact - Assessment/Plan Antibiotics: [] Assessment/Plan: [] Active and Suspected Problems Incisional hernia (Acute) Abd panniculitis with necrotizing infection - surg cx with GPC. Wound cx with MRSE, corynebacterium. MRSE was R to clinda and levaquin. Agree with vanc. Plan on discharge on iv vanc for 10 more days for 14 day total. Weekly bmp, cbc, and vanc trough. Will follow, thank you. D/w director case, rx written for labs and abx. 05/14/18 1403 <Electronically signed by Olivier Soriano MD> Date Olivier Soriano MD Cosigner Signature (if applicable): Date CC: Adonay Hollingsworth MD; Yrn Hendricks MD; Franco Jacques DO; Olivier Soriano MD Signed OPERATIVE REPORT Observed: 05/14/2018 Status: F Source: [place] 1:32 PM [facility] REPOSITORY [facility] Medical Records Department [address] [place] [address] Operative Report 05/11/183 MR#: [id number] Acct: [id number] Name: ROSALIE HORNE Rep #: [id number] : 1975 42 From: Yrn Hendricks MD PCP: Franco Jacques DO Status: ADM IN Y Location: [place] [id number] Report of Operation Date of Procedure: 05/11/18 Pre-Operative Diagnosis: 1. 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 2. Borderline diabetes. 3. Abdominal wall skin crease intertrigo. 4. Morbid obesity. 5. Incisional hernia. Post-Operative Diagnosis: 1. Massive abdominal panniculus with nonhealing infected ulcer and panniculitis and necrotizing soft tissue infection. 2. Borderline diabetes. 3. Abdominal wall skin crease intertrigo. 4. Morbid obesity. 5. Incisional hernia. Surgery/Procedure Performed:: Surgical preparation lower anterior abdominal wall massive panniculus with excisional debridement nonhealing ulcer and skin and subcutaneous tissue for necrotizing soft tissue infection and panniculectomy (777 cm2). Description of Surgical Findings:: The patient is a 42 year old F with a history of morbid obesity and borderline diabetes who presented to the ED with worsening pain and redness and swelling in her massive abdominal panniculus with a nonhealing infected ulcer and panniculitis. She has been treated for her intermittent bouts of abdominal panniculitis, the most recent in [place]. Recently she was placed on oral antibiotics for another episode and has worsening symptomatology. In the ED, her WBC was 11.6 and her Lactate was 2.2. Repeat labs the next morning showed the WBC had improved to 6.9 and the Lactate had decreased to 1.1. She was given Cleocin in the ED. On the floor she was started on Ancef. Patient states she has an umbilical hernia and she was told that will be repaired in the future after she loses weight. She was in the ED back in 03/[address] Abdomen and Pelvis was done. It showed A lower midline ventral hernia containing nonobstructed small bowel. Small bowel extends into the patient's pannus. Dr. Lobo from General Surgery was consulted to assist with the dissection and to repair the hernia if it is involved with the infected tissue that is being excised. Patient was informed of the risks and complications of the procedure including alternatives to surgery. These were discussed with the patient personally. Patient voices understanding and wishes to proceed. Patient understands the wound will be left open initially with wound care using the VAC. And removing this massive panniculus will take multiple procedures. Size of defect lower anterior abdominal wall area - 21 x 37 x 4 cm. railroad purchasing agent: Gato Lobo MD Type of Anesthesia:: General Specimen's removed: Nonhealing ulcer abdominal wall with abdominal panniculus to Pathology and Microbiology. Drains: None. Estimated Blood Loss (mL): 150 ml. Description of Procedure: Patient was taken to the OR in supine position and was placed under general anesthesia. Her abdominal wall and pubic area and upper thighs were prepped and draped in the usual fashion. SCD's were placed for DVT prophylaxis. Perioperative antibiotics were given intravenously. A vitale catheter was placed. Most of the infection was located just to the right of the midline in the lower most dependent portion of her massive panniculus. Dr. Lobo assisted me during the surgery. He performed a necessary and very important function of navigating around the hernia sac during the excision of the infected tissue. He was here to repair the incisional hernia if it became exposed during the excision of the infected tissue. Because of his expertise in dissecting the subcutaneous tissue off of the area that was located very closely clinically to the hernia, we were able to avoid having to repair the hernia at this time which would have increased the risk of postop problems since this was an infected ulcerated area that was excised and debrided. During the excisional debridement, there was a lot of fat necrosis and surrounding edema. Dissection was carried down to the abdominal wall fascia where the most indurated area was which looked viable and slightly inflamed. All of this fat necrosis was sharply excised and debrided. The nonhealing ulcer in the midline was also sharply excised and debrided. Some of the soft tissue was sent to Pathology for analysis to rule out carcinoma and to Microbiology for culture. A positive culture may necessitate antibiotic modification. There was a fair amount of bleeding that was easily controlled with electrocautery. The wound was irrigated with saline. After the indurated erythematous infected tissue was excised, the remaining tissue edges were soft and viable. No hernia sac was encountered. The size of the wound defect after excision and debridement of this necrotizing soft tissue infection was 21 x 37 x 4 cm or 777 cm2. The wound was then dressed with Mepitel nonadherent dressing followed by Kerlix gauze with Betadine followed by dry Kerlix gauze and ABD pads for a compression dressing. The VAC will be placed tomorrow. Will also place an abdominal binder on after she gets out of bed tomorrow. Patient tolerated the procedure well and was sent to PACU in satisfactory condition. She will be sent back upstairs for continued postop care. Due to the complexity of the wound and the need for a VAC and probably IV antibiotics, she may be better off going to an ECF for a short while at discharge. After discharge, she can followup at the [facility]. If there is a plateau in the healing process, can proceed with delayed closure with skin grafting or a complex secondary wound closure. Once again, Dr. Lobo assisted me during the surgery. He performed a necessary and very important function of navigating around the hernia sac during the excision of the infected tissue. Grafts/Implants Used: None. - Complications None. - Admit VTE Documentation VTE Present on Admission: No VTE Mechan Device Prophylaxis: SCD's VTE Pharm Prophylaxis ordered?: Yes Code Visit Surgery Charges CPT - 49031 ICD-10 - L98.492, M79.89, E65, M79.3, R73.03, L30.4, K43.2, E66.9 05/14/18 1332 <Electronically signed by Yrn Hendricks MD> Date Yrn Hendricks MD CC: Gato Lobo MD; Cuca Mast; Adonya Hollinsgworth MD; Jerry Madrigal DO; Lawrence Jones; Yrn Hendricks MD; Franco Jacques DO; Jared Ambrose DO; [facility] Signed CBC W/DIFF, AUTOMATED Collected: 05/13/2018 Status: F Source: MELANIE 5:00 AM [facility] REPOSITORY Order Comment: SPECIMEN OBTAINED FROM LINE DRAW TYPE CODE TESTS RESULT OUT OF RANGE REFERENCE UNITS LAB L100.1000 4.4-11.0 K/mm3 High WBC 12.1 LAB L100.1200 4.2-5.4 M/mm3 Low RBC 3.38 LAB L100.1300 12.0-15.0 g/dl Low HGB 9.2 LAB L100.1400 37-47 % Low HCT 30.6 LAB L100.1500 81-99 fL Normal MCV 90.5 LAB L100.1600 27.0-32.0 pg Normal MCH 27.2 LAB L100.1700 32-36 g/gl Low MCHC 30.1 LAB L100.1810 11.6-14.6 % High RDW CV 15.0 LAB L100.1820 35.1-43.9 fl High RDW SD 49.0 LAB L100.1900 150-450 K/mm3 Normal PLT 234 LAB L100.2000 6.2-12.0 fl Normal MPV 10.5 LAB L100.2100 47-70 % Normal NEUT% 66.4 LAB L100.2200 19-41 % Normal LY% 21.2 LAB L100.2300 0-10 % Normal MONO% 9.6 LAB L100.2400 0-5 % Normal EO% 2.2 LAB L100.2500 0-1 % Normal BASO% 0.2 LAB L100.2550 0.0-0.9 % Normal IM GRAN % 0.400 Result Comment: IG% - Immature Granulocytes (promyelocytes, myelocytes and metamyelocytes) > 1% indicates that a LEFT SHIFT is Present. LAB L100.2620 2.0-7.7 X10 3/uL High Absolute Neut 8.0 LAB L100.2720 0.83-4.51 X10 3/ul Normal Absolute Lymph 2.56 Performed By: #### L100.0100 #### [facility] [address] [place], [place], [address] BASIC METABOLIC Collected: 05/13/2018 Status: F Source: [place] PROFILE (BMP) 5:00 AM [facility] REPOSITORY Order Comment: SPECIMEN OBTAINED FROM LINE DRAW TYPE CODE TESTS RESULT OUT OF RANGE REFERENCE UNITS LAB L501.0100 74-106 mg/dL Normal GLU 90 Result Comment: Please note revised GLUCOSE reference range effective 2017. LAB L501.1000 7-18 mg/dL Normal BUN 18 LAB L501.1100 0.55-1.02 mg/dL Normal CREAT,SERUM 0.82 Result Comment: The validity of the calculated GFR AND GFRAA in patients over 70 years has not been determined. Clinical correlation is essential. LAB L501.1110 >60 mL/min Normal EST GFR 82 Result Comment: Non- GFR Calc LAB L501.1115 >60 mL/min Normal EST GFR - AA 99 Result Comment: GFR Calc LAB L501.1255 ml/min Normal Estimated CRCL 67.44 LAB L501.1300 10-20 RATIO High BUN/CRE 22.1 LAB L501.2200 8.5-10 mg/dL Low .1 CA 7.9 LAB L501.5300 136-14 mmol/L Normal 5 NA 140 LAB L501.5600 3.5-5. mmol/L Normal 1 K 4.5 LAB L501.5900 98-107 mmol/L Normal CL 105 LAB L501.6100 21.0-3 mmol/L Normal 2.0 CO2 28.0 LAB L501.6200 5-15 Normal GAP 7 Performed By: #### L500.2500 #### [facility] [address] [place], [place], [address] LACTIC ACID Collected: 05/13/2018 Status: F Source: MELANIE 5:00 AM [facility] REPOSITORY Order Comment: SPECIMEN OBTAINED FROM LINE DRAW Yes/No query for Sepsis Lactate Rule Y TYPE CODE TESTS RESULT OUT OF RANGE REFERENCE UNITS LAB L503.6005 0.4-2.0 mmol/L Normal LACTIC ACID 0.5 Performed By: #### L503.6005 #### [facility] [address] [place], [place], [address] CBC-COMPLETE BLOOD CNT Collected: 05/12/2018 Status: F Source: MELANIE NO DIFF 5:40 AM [facility] REPOSITORY Order Comment: SPECIMEN OBTAINED FROM LINE DRAW TYPE CODE TESTS RESULT OUT OF RANGE REFERENCE UNITS LAB L100.1000 4.4-11.0 K/mm3 High WBC 16.5 LAB L100.1200 4.2-5.4 M/mm3 Low RBC 4.15 LAB L100.1300 12.0-15.0 g/dl Low HGB 11.0 LAB L100.1400 37-47 % Normal HCT 37.0 LAB L100.1500 81-99 fL Normal MCV 89.2 LAB L100.1600 27.0-32.0 pg Low MCH 26.5 LAB L100.1700 32-36 g/gl Low MCHC 29.7 LAB L100.1810 11.6-14.6 % High RDW CV 14.9 LAB L100.1820 35.1-43.9 fl High RDW SD 48.4 LAB L100.1900 150-450 K/mm3 Normal PLT 273 LAB L100.2000 6.2-12.0 fl Normal MPV 10.1 Performed By: #### L100.0500 #### [facility] [address] [place], [address] BASIC METABOLIC Collected: 05/12/2018 Status: F Source: [place] PROFILE (BMP) 5:40 AM [facility] REPOSITORY Order Comment: SPECIMEN OBTAINED FROM LINE DRAW TYPE CODE TESTS RESULT OUT OF RANGE REFERENCE UNITS LAB L501.0100 74-106 mg/dL High GLU 107 Result Comment: Fasting Glucose result from 100 to 125 mg/dL suggests IMPAIRED HOMEOSTASIS per A.D.A. criteria. Please note revised GLUCOSE reference range effective 2017. LAB L501.1000 7-18 mg/dL Normal BUN 9 LAB L501.1100 0.55-1.02 mg/dL Normal CREAT,SERUM 0.64 Result Comment: The validity of the calculated GFR AND GFRAA in patients over 70 years has not been determined. Clinical correlation is essential. LAB L501.1110 >60 mL/min Normal EST GFR 107 Result Comment: Non- GFR Calc LAB L501.1115 >60 mL/min Normal EST GFR - AA 129 Result Comment: GFR Calc LAB L501.1255 ml/min Normal Estimated CRCL 86.41 LAB L501.1300 10-20 RATIO Normal BUN/CRE 14.0 LAB L501.2200 8.5-10 mg/dL Normal .1 CA 8.6 LAB L501.5300 136-14 mmol/L Normal 5 NA 139 LAB L501.5600 3.5-5. mmol/L Normal 1 K 4.5 LAB L501.5900 98-107 mmol/L Normal CL 102 LAB L501.6100 21.0-3 mmol/L Normal 2.0 CO2 30.0 LAB L501.6200 5-15 Normal GAP 7 Performed By: #### L500.2500, L506.0500 #### [facility] [address] [place], [place], [address] PREALBUMIN Collected: 05/12/2018 Status: F Source: [place] 5:40 AM [facility] REPOSITORY Order Comment: SPECIMEN OBTAINED FROM LINE DRAW TYPE CODE TESTS RESULT OUT OF RANGE REFERENCE UNITS LAB L506.0500 20.0-40.0 mg/dL Normal PREALBUMIN 21.1 Performed By: #### L500.2500, L506.0500 #### [facility] [address] [place], [place], [address] PANNUS Observed: 05/11/2018 Status: F Source: [place] 9:00 AM [facility] REPOSITORY Patient: ROSALIE HORNE : 1975 (42/F) Acct Num: [id number] Phys: Lawrence Jones Unit Num: [id number] Loc: MS3 FE560-0 Specimen: [id number] Received: 05/12/18832 Spec Type: PANNUS TISSUES TISSUES: Abdomen, NOS GROSS DESCRIPTION Received in fixative is one container labeled with the patient's name and designated abdominal wall abscess/tissue. The specimen consists of a piece of skin with underlying tissue measuring 21 x 19 cm and up to 5 cm in thickness. Also present in the container is a detached piece of skin with underlying tissue. The skin piece measures 8 x 9 cm and the underlying tissue measures 13 x 6 x 3 cm. A focal area of ulceration is noted in this piece. Sections do not reveal any mass lesion. Information Technology Security Analyst sections are submitted in four cassettes. / MOOK:jeromy 05/12/18 TC:2 CPT: 84666 HEADER OPERATION: Abdominal panniculectomy, debridement, ulcer, lower abdominal wall PRE-OP DIAGNOSIS: Panniculitis, severe sepsis TISSUE SUBMITTED: Abdominal wall abscess/tissue MICROSCOPIC DESCRIPTION Slides are reviewed. MICROSCOPIC DIAGNOSIS Abdominal wall abscess/tissue, panniculectomy: Pieces of skin with underlying tissue with focal ulceration, fat necrosis and associated inflammation. MOOK:jeromy 05/13/18 Signed Hang Chew 05/13/18 <signature on file> Performed By: #### PPANN #### [facility] [address], [address] PROTHROMBIN TIME W/INR Collected: 05/11/2018 Status: F Source: [place] 5:25 AM [facility] REPOSITORY TYPE CODE TESTS RESULT OUT OF RANGE REFERENCE UNITS LAB L300.4150 11.7-14.9 SECONDS Normal PROTIME 13.8 LAB L300.4200 Normal INR 1.1 Performed By: #### L300.3900, L300.4310, L100.0100, L700.6800 #### [facility] [address] [place], [address] PARTIAL THROMBOPLAST Collected: 05/11/2018 Status: F Source: [place] TIME 5:25 AM [facility] REPOSITORY TYPE CODE TESTS RESULT OUT OF RANGE REFERENCE UNITS LAB L300.4310 24.1-36.2 Seconds Normal PTT 30.9 Performed By: #### L300.3900, L300.4310, L100.0100, L700.6800 #### [facility] [address] [place], [address] CBC W/DIFF, AUTOMATED Collected: 05/11/2018 Status: F Source: [place] 5:25 AM [facility] REPOSITORY TYPE CODE TESTS RESULT OUT OF RANGE REFERENCE UNITS LAB L100.1000 4.4-11.0 K/mm3 Normal WBC 9.0 LAB L100.1200 4.2-5.4 M/mm3 Low RBC 4.07 LAB L100.1300 12.0-15.0 g/dl Low HGB 11.0 LAB L100.1400 37-47 % Low HCT 35.6 LAB L100.1500 81-99 fL Normal MCV 87.5 LAB L100.1600 27.0-32.0 pg Normal MCH 27.0 LAB L100.1700 32-36 g/gl Low MCHC 30.9 LAB L100.1810 11.6-14.6 % High RDW CV 14.8 LAB L100.1820 35.1-43.9 fl High RDW SD 46.6 LAB L100.1900 150-450 K/mm3 Normal PLT 261 LAB L100.2000 6.2-12.0 fl Normal MPV 10.4 LAB L100.2100 47-70 % Normal NEUT% 64.0 LAB L100.2200 19-41 % Normal LY% 22.8 LAB L100.2300 0-10 % Normal MONO% 7.9 LAB L100.2400 0-5 % Normal EO% 4.5 LAB L100.2500 0-1 % Normal BASO% 0.4 LAB L100.2550 0.0-0.9 % Normal IM GRAN % 0.400 Result Comment: IG% - Immature Granulocytes (promyelocytes, myelocytes and metamyelocytes) > 1% indicates that a LEFT SHIFT is Present. LAB L100.2620 2.0-7.7 X10 3/uL Normal Absolute Neut 5.7 LAB L100.2720 0.83-4.51 X10 3/ul Normal Absolute Lymph 2.04 Performed By: #### L300.3900, L300.4310, L100.0100, L700.6800 #### [facility] [address] [facility] [place], [place], [address] ,SERUM,HCG QUALI. Collected: Status: F Source: [place] 05/11/2018 5:25 AM [facility] REPOSITORY TYPE CODE TESTS RESULT OUT OF REFERENCE UNITS RANGE LAB L700.7000 0-9 Nonpreg Negative Normal HCGSQUAL NEGATIVE LAB L700.6700 =>Qualitative mIU/mL Normal HCG Qual < 1 triggr Performed By: #### L300.3900, L300.4310, L100.0100, L700.6800 #### [facility] [address] [place], [place], [address] BASIC METABOLIC Collected: 05/11/2018 Status: F Source: [place] PROFILE (BMP) 5:25 AM [facility] REPOSITORY TYPE CODE TESTS RESULT OUT OF RANGE REFERENCE UNITS LAB L501.0100 74-106 mg/dL Normal GLU 94 Result Comment: Please note revised GLUCOSE reference range effective 2017. LAB L501.1000 7-18 mg/dL Normal BUN 14 LAB L501.1100 0.55-1.02 mg/dL Normal CREAT,SERUM 0.77 Result Comment: The validity of the calculated GFR AND GFRAA in patients over 70 years has not been determined. Clinical correlation is essential. LAB L501.1110 >60 mL/min Normal EST GFR 88 Result Comment: Non- GFR Calc LAB L501.1115 >60 mL/min Normal EST GFR - AA 106 Result Comment: GFR Calc LAB L501.1255 ml/min Normal Estimated CRCL 71.82 LAB L501.1300 10-20 RATIO Normal BUN/CRE 18.3 LAB L501.2200 8.5-10 mg/dL Normal .1 CA 9.0 LAB L501.5300 136-14 mmol/L Normal 5 NA 139 LAB L501.5600 3.5-5. mmol/L Normal 1 K 4.2 LAB L501.5900 98-107 mmol/L Normal CL 100 LAB L501.6100 21.0-3 mmol/L Normal 2.0 CO2 31.0 LAB L501.6200 5-15 Normal GAP 8 Performed By: #### L500.2500, L501.9520 #### [facility] [address] [place], [place], [address] THYROID STIM HORMONE Collected: 05/11/2018 Status: F Source: [place] (TSH) 5:25 AM [facility] REPOSITORY TYPE CODE TESTS RESULT OUT OF RANGE REFERENCE UNITS LAB L501.9520 0.358-3.74 uIU/mL High TSH 47.40 Performed By: #### L500.2500, L501.9520 #### [facility] [address] [place], [address] Observed: 05/11/2018 Status: F Source: [place] CULTURE, DEEP WOUND 12:00 AM [facility] REPOSITORY Comments: 1) ABDOMINAL WALL ABSCESS/TISSUE Gram Stain Gram Stain 1+ Red Cell Stroma No organisms seen Wound Culture #2 Gram positive marisel suggestive of a diptheroid. There are no CLSI standards for interpretation of this Drug/Organism combination. ORGANISM 1: Enterococcus faecalis Amount Growth Rare ORGANISM 2: Gram positive marisel Amount Growth Rare ORGANISM 3: Staphylococcus hominis hominis Enterococcus faecalis: REACTION Ampicillin $ <=2 S Benzylpenicillin NF 2 S Gentamicin SYN-S S Linezolid $$$$ 2 S Tigecycline $$$$ <=0.12 S Streptomycin $ SYN-S S Vancomycin $ 1 S (NF) indicates non-formulary drug at [facility]. Approval by Infectious Disease Specialist required before non-formulary drugs may be ordered and/or dispensed. * CLSI guidelines does not recommend testing of cephalosporins. This interpretation is deduced from Beta-lactam/penicillin results. Staphylococcus hominis hominis: REACTION Benzylpenicillin NF >=0.5 R Cefoxitin *NF + Clindamycin $$ >=8 R Inducable Clindamycin Resistan - Erythromycin $ >=8 R Gentamicin $ <=0.5 S Levofloxacin $ >=8 R Oxacillin NF >=4 R Tigecycline $$$$ <=0.12 S Rifampin $$ 1 S Tetracycline NF >=16 R Vancomycin $ 1 S (NF) indicates non-formulary drug at [facility]. Approval by Infectious Disease Specialist required before non-formulary drugs may be ordered and/or dispensed. * CLSI guidelines does not recommend testing of cephalosporins. This interpretation is deduced from Beta-lactam/penicillin results. Cult, Anaerobic #1 Studies have confirmed that Prevotella, Porphyromonas and Bacteroides species other than B. fragilis group are routinely susceptible to: Ampicillin/Sulbactam, Piperacillin/Tazobactam, Cefoxitin, Tigecycline, Ertapenem, Imipenem, Meropenem and Metronidazole and variable in resistance to: Penicillin/Ampicillin, Clindamycin and Moxifloxacin. #2 Studies have confirmed that Anaerobic Gram Positive Cocci are routinely susceptible to: Penicillin/Ampicillin, Ampicillin/Sulbactam, Piperacillin/Tazobactam, Cefoxatin, Ertapenem, Imipenem, Meropenem and Metronidazole and vary in resistance to: Clindamycin and Moxifloxacin. ORGANISM 1: Prevotella melaninogenica Beta Lactamase Negative ORGANISM 2: Anaerococcus prevotii Performed By: #### M100.1500 #### [facility] [place], [address] Observed: 05/11/2018 Status: F Source: REMI ALCANTAR W/ 12:00 [facility] [id number] REPOSITORY Comments: 1) ABDOMINAL WALL ABSCESS/TISSUE Is this test to exclude patient from TB Isolation? N [id number] TESTING PERFORMED AT [facility]. ORIGINAL REPORT ON FILE IN LAB CONTAINS ADDITIONAL TEST SITE INFORMATION. CUF No yeast or mold isolated after [address] TESTING PERFORMED AT [facility]. ORIGINAL REPORT ON FILE IN LAB CONTAINS ADDITIONAL TEST SITE INFORMATION. Fungus Stain No yeast or mold observed. Performed By: #### M600.1900 #### [facility] [address] [place] [address]. [place], [address] CONSULTATION Observed: 05/10/2018 Status: F Source: [place] 10:59 PM [facility] REPOSITORY [facility] Medical Records Department [address] [place] [id number] Consultation 05/07/18 190 MR#: [id number] Acct: [id number] Name: ROSALIE HORNE Tara Rep #: [id number] : 1975 42 From: Yrn Hendricks MD PCP: Franco Jacques DO Status: ADM IN Y Location: [facility] [place] [id number] Reason for Consult Date of Consultation: 05/07/18 Reason for Consultation: Nonhealing infected ulcer lower anterior abdominal wall with massive panniculus and panniculitis. REFERRING PHYSICIAN: Dr. Mast. PEDIATRIC PSYCHIATRIST: Dr. Hendricks. History of Present Illness: The patient is a 42 year old F with a history of morbid obesity and borderline diabetes who presented to the ED with worsening pain and redness and swelling in her massive abdominal panniculus with a nonhealing infected ulcer and panniculitis. She has been treated for her intermittent bouts of abdominal panniculitis, the most recent in [place]. Recently she was placed on oral antibiotics for another episode and has worsening symptomatology. In the ED, her WBC was 11.6 and her Lactate was 2.2. Repeat labs the next morning showed the WBC had improved to 6.9 and the Lactate had decreased to 1.1. She was given Cleocin in the ED. On the floor she was started on Ancef. Patient states she has an umbilical hernia and she was told that will be repaired in the future after she loses weight. She was in the ED back in 03/[address] Abdomen and Pelvis was done. It showed extremely limited examination, the majority of the anterior abdominal subcutaneous tissue, wall and anterior peritoneal are not included in the [id number]. Portion of a left anterior inferior abdominal wall hernia with an opening of 4.5 cm containing small bowel is imaged. No overt colonic or small bowel obstruction, ascites or pneumoperitoneum on submitted images. Hepatomegaly and hepatic steatosis. Cholecystectomy. Nonobstructing left inferior renal pole calculus. I was asked to evaluate this patient for surgical options for treatment. Past Medical History Past Medical History (Chronic Problems): Chronic Problems Erythema intertrigo (Chronic) abdominal wall skin crease intertrigo Abdominal panniculus, symptomatic (Chronic) Skin ulcer of abdominal wall with fat layer exposed (Chronic) Anxiety and depression (Chronic) Allergic rhinitis (Chronic) MARCE (obstructive sleep apnea) (Chronic) not on CPAP (pt refusal) Obesity, Class III, BMI 40-49.9 (morbid obesity) (Chronic) Asthma (Chronic) Super-super obese (Chronic) Prediabetes (Chronic) Hypertension (Chronic) Hypothyroid (Chronic) Allergies diphenhydramine HCl [From Benadryl] Allergy (Verified 05/06/18 15:13) Hives metronidazole [From Flagyl] Allergy (Verified 05/06/18 15:13) Rash venom-honey bee [bee venom (honey bee)] Allergy (Verified 05/06/18 15:13) Anaphylaxis aspirin Adverse Reaction (Verified 05/06/18 15:13) Upset Stomach codeine Adverse Reaction (Verified 05/06/18 15:13) Other ibuprofen Adverse Reaction (Verified 05/06/18 15:13) Upset Stomach Penicillins Adverse Reaction (Verified 05/06/18 15:13) Nausea Current Medications Acetaminophen (Tylenol) 650 mg PO Q6H PRN Al Hydroxide/Mg Hydroxide (Mylanta Ii) 30 ml PO Q6H PRN Albuterol Sulfate (Ventolin Aerosols) 2.5 mg INHALATION Q2H PRN Enoxaparin Sodium (Lovenox) 40 mg SC BID GHISLAINE Famotidine (Pepcid) 20 mg PO BID GHISLAINE Furosemide (Lasix) 40 mg IV Q8 GHISLAINE Cefazolin Sodium () 1 gm in 50 mls @ 100 mls/hr IV Q8 GHISLAINE Levothyroxine Sodium (Synthroid) 300 mcg PO DAILY@0600 GHISLAINE Lisinopril (Zestril) 10 mg PO DAILY GHISLAINE Loratadine (Claritin) 10 mg PO DAILY GHISLAINE Magnesium Hydroxide (Milk Of Magnesia) 30 ml PO DAILY PRN Montelukast Sodium (Singulair) 10 mg PO DAILY GHISLAINE Morphine Sulfate () 2 - 4 mg IV Q3H PRN Morphine Sulfate () 1 - 2 mg IV Q4H PRN Nutritional Formula (Lactose Free) (Glucerna Shake) 120 ml PO TIDCM GHISLAINE Nystatin (Mycostatin Powder) 1 applic TOPICAL TID GHISLAINE Ondansetron HCl (Zofran) 4 mg IV Q8H PRN Oxycodone HCl (Oxyir) 5 mg PO Q4H PRN Potassium Chloride (K-Dur) 20 meq PO BIDCM GHISLAINE Promethazine HCl (Phenergan) 12.5 mg IV Q6H PRN Sertraline HCl (Zoloft) 100 mg PO DAILY [facility] Home Medications: Ambulatory Orders Medication Instructions Recorded Lisinopril/Hydrochlorothiazide 1 tablet PO DAILY 03/08/18 [Zestoretic 10/12.5 Tablet] Loratadine [Claritin] 10 mg PO DAILY 03/08/18 Surgical History: - - 3, cholecystectomy, tonsillectomy. 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 Smoking Status: Never smoker Tobacco Use: Non-smoker Alcohol: None Drugs: None - *Family History Maternal History Items: - - Patient notes a maternal and paternal family history of heart disease, diabetes, high cholesterol, cancer. Paternal History Items: - - Patient notes a maternal and paternal family history of heart disease, diabetes, high cholesterol, cancer. Review of Systems Comment: General - Denies fever, fatigue, and weight loss. Eyes - Denies cataracts and glaucoma. ENT - Denies nasal congestion and sore throat. Endocrine - Denies excessive thirst and urination. Has borderline diabetes. Skin - Denies skin cancer. Has massive abdominal panniculus with non healing infected ulcer and panniculitis. Musculoskeletal - Denies joint pain, joint stiffness, weakness of muscles and joints, back pain, and arthritis. Neuro - Denies headaches. Cardiovascular - Denies chest pain, fatigue, and shortness of breath with exertion. Psych - Denies anxiety and depression. Respiratory - Denies chronic cough and shortness of breath. Gastrointestinal - Denies nausea, vomiting, diarrhea, and constipation. Hematologic - Denies abnormal bruising and bleeding. Genitourinary - Denies hematuria and urinary frequency. Patient Problems: Active and Suspected Problems Panniculitis (Acute) Incisional hernia (Acute) - Physical Exam General - Alert and Oriented HEENT - PERRL. EOMI. Throat is clear. Neck - Supple and nontender. No cervical adenopathy. Lungs - Clear to auscultation. Heart - Regular rate and rhythm. Abdomen - Massive abdominal panniculus with panniculitis. Tenderness to palpation lower anterior abdominal wall. Large ulceration in midline scar. Measures 15 cm. Exudate present. Surrounding cellulitis. Firm dependent edema present. No purulent drainage noted. Lower midline scar from umbilicus to pubis. Extensive abdominal wall skin crease intertrigo. Extremities - FROM. No axillary adenopathy. Radial pulses are palpable. Neuro - CN II-XII grossly intact. Psych - Normal mood and affect. Vital Signs Temp Pulse Resp BP Pulse Ox 98.9 F 80 18 120/69 97 05/07/18 17:01 05/07/18 17:01 05/07/18 17:01 05/07/18 17:01 05/07/18 17:01 Oxygen Delivery Method Room Air Weight: 479 lb 15.988 oz Body Mass Index (BMI) 90.6 Intake and Output for Last 24 Hours Intake Total 3169 / 3169 Output Total 725 / 725 Balance 2444 / 2444 Laboratory Tests Past 24 Hrs WBC 6.9 RBC 3.84 L Hgb 10.4 L Hct 34.0 L MCV 88.5 MCH 27.1 MCHC 30.6 L RDW 14.3 RDW Differential 45.6 H POC Glucose POC Glucose 93 102 81 Diagnostic Data Chest X-Ray 05/06/18 15:45 IMPRESSION: Elevated hemidiaphragm on the right. Nonspecific. Otherwise no acute cardiopulmonary process is evident. Electronically Signed: Karthik Smart, at 16:27 EDT Tel , Service support , Assessment/Plan All Active Problems Panniculitis (Acute) Incisional hernia (Acute) Severe sepsis (Acute) 1. 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 2. Borderline diabetes. 3. Abdominal wall skin crease intertrigo. 4. Left anterior inferior abdominal wall hernia containing small bowel (umbilical per patient?). 5. Morbid obesity. 6. Incisional hernia. Patient was started on Ancef. Based on previous cultures and her risk of infection, I will change the antibiotics to Vancomycin, Cleocin, and Levaquin. Will check a wound culture. Her previous cultures from last May showed Staphylococcus aureus, Streptococcus group G, and E. coli. Will begin wound care with half strength Dakin's twice a day to the abdominal wall infected ulcer. Will repeat the CT Abdomen and Pelvis with contrast. Presence of a hernia will complicate the decision making. Most of the redness and swelling and pain and ulceration is on the right abdominal wall. Excision of this infected tissue can be done. Usually requires extension to the abdominal wall especially if necrotizing infection is seen at the time of surgery. Even the limited excisional debridement and panniculectomy (which would still be extensive due to her size) would be risky for the patient and the presence of the hernia would increase that risk tremendously. If the CT shows the hernia is mostly an umbilical hernia, the excisional debridement is limited to the tissue below the umbilicus. However, before I proceed with any operative debridement, General Surgery evaluation would be needed and they would need to be available if the hernia is worse than expected and needed to be repaired. If they think that surgery would be too high risk for [facility], then she would need to go to a tertiary center for further treatment. She states she has been in [place] before. Anticipate increased metabolic demands from her ulcerations and infection. Will check a Prealbumin. Encourage nutritional supplementation with protein to help the healing process. If surgery is done here, then postop wound care would be with the [facility]. Post discharge, can then followup at the Wound Center. Any tissue that is removed would be sent to Pathology for analysis to rule out carcinoma and to Microbiology for culture. A positive culture may necessitate antibiotic modification. Patient was informed of the risks and complications of the procedure including alternatives to surgery. These were discussed with the patient personally. Patient voices understanding and wishes to proceed. She understands that surgery may need to be done at a tertiary center. Code Visit Inpatient E AND M: [id number] Init Hosp L2 - ICD-10 - L98.492, E65, M79.3, R73.03, L30.4, K43.2, E66.9 05/10/18 2259 <Electronically signed by Yrn Hendricks MD> Date Yrn Hendricks MD Cosigner Signature (if applicable): Date CC: Cuca Mast; Adonay Hollingsworth MD; Yrn Hendricks MD; Franco Jacques DO; Jared Ambrose DO; [facility] Signed Observed: 05/10/2018 Status: F Source: [place] CULTURE, DEEP WOUND 9:50 PM [facility] REPOSITORY Gram Stain Gram Stain 2+ White Blood Cells 2+ Gram positive cocci Wound Culture Clinical correlation necessary, Possible skin contamination. #2 There are no CLSI standards for interpretation of this Drug/Organism combination. ORGANISM 1: Staphylococcus epidermidis Amount Growth 2+ ORGANISM 2: Corynebacterium amycolatum Amount Growth 2+ Staphylococcus epidermidis: REACTION Benzylpenicillin NF >=0.5 R Cefoxitin *NF + Clindamycin $$ >=8 R Inducable Clindamycin Resistan - Erythromycin $ >=8 R Gentamicin $ <=0.5 S Levofloxacin $ >=8 R Linezolid $$$$ 1 S Oxacillin NF >=4 R Tigecycline $$$$ <=0.12 S Rifampin $$ <=0.5 S Tetracycline NF >=16 R Vancomycin $ 1 S (NF) indicates non-formulary drug at [facility]. Approval by Infectious Disease Specialist required before non-formulary drugs may be ordered and/or dispensed. * CLSI guidelines does not recommend testing of cephalosporins. This interpretation is deduced from Beta-lactam/penicillin results. Cult, Anaerobic No anaerobic bacteria isolated. Performed By: #### M100.1500 #### [facility] [address] [place], [address] 12 LEAD ELECTROCARDIOGRAM Observed: 05/10/2018 Status: F Source: [place] 2:26 PM [facility] REPOSITORY [facility] Cardiovascular Services [address] [place] [address] 12 Lead EKG 05/06/18 1543 MR#: [id number] Acct: [id number] Name: ROSALIE HORNE Rep #: [id number] : 1975 42 From: Nathan Alva MD Attending Dr: Lawrence Jones Status: ADM IN Ordering Dr: Mercedes Bear MD Date: 05/06/18 Location[place] [facility] [place] Sex: F C Admitted: 05/06/18 Test Reason : WOUND Blood Pressure : / mmHG Vent. Rate : 098 BPM Atrial Rate : 098 BPM P-R Int : 166 ms QRS Dur : 086 ms QT Int : 352 ms P-R-T Axes : 062 005 029 degrees QTc Int : 449 ms Normal sinus rhythm Normal ECG Confirmed by GRACIE GILMORE, NATHAN ([id number]), film or videotape editor DON FARRELL ([id number]) on 05/10/2018 2:25:42 PM Referred By: FADY Confirmed By:NATHAN ALVA MD 05/10/18 1425 Date Nathan Alva MD CC: Mercedes Bear MD; Lawrence Jones; Franco Jacques DO Signed CONSULTATION Observed: 05/09/2018 Status: F Source: [place] 6:41 PM [facility] REPOSITORY [facility] Medical Records Department [address] [place] [address] Consultation 05/09/18 1836 MR#: [id number] Acct: [id number] Name: ROSALIE HORNE Rep #: [id number] : 1975 42 From: Adonay Hollingsworth MD PCP: Fracno Jacques DO Status: ADM IN Y Location: [facility] [place] BM010-5 Problem List (1) Incisional hernia Status: Acute Qualifiers: Obstruction and gangrene presence: without obstruction or gangrene Qualified Code(s): K43.2 - Incisional hernia without obstruction or gangrene; K43.91 - Incisional hernia, without obstruction or gangrene Reason for Consult Date of Consultation: 05/09/18 History of Present Illness: The patient is a 42 year old F with a history of morbid obesity and borderline diabetes who presented to the ED with worsening pain and redness and swelling in her massive abdominal panniculus with a nonhealing infected ulcer and panniculitis. She has been treated for her intermittent bouts of abdominal panniculitis, the most recent in [place]. Recently she was placed on oral antibiotics for another episode and has worsening symptomatology. In the ED, her WBC was 11.6 and her Lactate was 2.2. Repeat labs the next morning showed the WBC had improved to 6.9 and the Lactate had decreased to 1.1. She was given Cleocin in the ED. On the floor she was started on Ancef. Patient states she has an umbilical hernia and she was told that will be repaired in the future after she loses weight. She was in the ED back in 03/[address] Abdomen and Pelvis was done. It showed extremely limited examination, the majority of the anterior abdominal subcutaneous tissue, wall and anterior peritoneal are not included in the [id number]. Portion of a left anterior inferior abdominal wall hernia with an opening of 4.5 cm containing small bowel is imaged. No overt colonic or small bowel obstruction, ascites or pneumoperitoneum on submitted images. Hepatomegaly and hepatic steatosis. Cholecystectomy. Nonobstructing left inferior renal pole calculus. I was asked to evaluate this patient for possible hernia repair in conjunction with panniculectomy. I discussed this case with Dr. Hendricks and he would like surgery backup in case he gets into the hernia at the time of the panniculectomy. Past Medical History Past Medical History (Chronic Problems): Chronic Problems Anxiety and depression (Chronic) Allergic rhinitis (Chronic) MARCE (obstructive sleep apnea) (Chronic) not on CPAP (pt refusal) Obesity, Class III, BMI 40-49.9 (morbid obesity) (Chronic) Asthma (Chronic) Super-super obese (Chronic) Prediabetes (Chronic) Hypertension (Chronic) Hypothyroid (Chronic) Allergies diphenhydramine HCl [From Benadryl] Allergy (Verified 05/06/18 15:13) Hives metronidazole [From Flagyl] Allergy (Verified 05/06/18 15:13) Rash venom-honey bee [bee venom (honey bee)] Allergy (Verified 05/06/18 15:13) Anaphylaxis aspirin Adverse Reaction (Verified 05/06/18 15:13) Upset Stomach codeine Adverse Reaction (Verified 05/06/18 15:13) Other ibuprofen Adverse Reaction (Verified 05/06/18 15:13) Upset Stomach Penicillins Adverse Reaction (Verified 05/06/18 15:13) Nausea Home Medications: Ambulatory Orders Medication Instructions Recorded Lisinopril/Hydrochlorothiazide 1 tablet PO DAILY 03/08/18 [Zestoretic 10/12.5 Tablet] Loratadine [Claritin] 10 mg PO DAILY 03/08/18 Surgical History: cholecystectomy - Patient has had sections in the past, - - 3, cholecystectomy, tonsillectomy. 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 Smoking Status: Never smoker Tobacco Use: Non-smoker Alcohol: None Drugs: None - *Family History Maternal History Items: - - Patient notes a maternal and paternal family history of heart disease, diabetes, high cholesterol, cancer. Paternal History Items: - - Patient notes a maternal and paternal family history of heart disease, diabetes, high cholesterol, cancer. Review of Systems Constitutional: Denies: Chills, Fever, Weight Change Cardiovascular: Denies: Chest Pain, Chest Pressure, Chest Tightness, Palpitations Respiratory: Denies: Cough, Hemoptysis, Shortness of breath at rest, Shortness of breath upon exertion, Wheezing Gastrointestinal: Denies: Abdominal Pain, Constipation, Diarrhea, Hematemesis, Nausea, Melena, Vomiting Patient Problems: Active and Suspected Problems Incisional hernia (Acute) - Physical Exam Lungs: Clear to auscultation Cardiovascular: Regular rate, Regular Rhythm, No murmurs Abdomen: Obese - Extremely large pannus and hernia is clearly palpable at the umbilicus and extending down into the pannus itself. Large ulceration in midline extending to right side. Measures 15 cm. Exudate present. Surrounding cellulitis. Firm dependent edema present. No purulent drainage noted. Lower midline scar from umbilicus to pubis. Vital Signs Temp Pulse Resp BP Pulse Ox 98 F 86 20 H 97/60 95 05/09/18 14:00 05/09/18 14:45 05/09/18 14:00 05/09/18 14:00 05/09/18 14:00 Oxygen Delivery Method Room Air Weight: 479 lb 15.988 oz Body Mass Index (BMI) 90.6 Intake and Output for Last 24 Hours Laboratory Tests Past 24 Hrs Assessment/Plan All Active Problems Incisional hernia (Acute) Severe sepsis (Acute) UTI (urinary tract infection) (Acute) Panniculitis (Acute) Recurrent cellulitis (Acute) Left sided abdominal pain (Resolved) UTI (urinary tract infection) (Resolved) I discussed this case with Dr. kelley and I will have to ask if 1 of my partners would like to be on standby for him. I will be unavailable the rest of this week. In looking at the hernia I cannot see how he is not possibly going to get into the defect. Which then leads she going to need tissue component separation to close the defect as well as repair of the pannus that he is going to remove. If 1 of my partners thinks that this would be better in a tertiary referral center that I think that that is probably going to be the best case scenario here. 05/09/18 1841 <Electronically signed by Adonay Hollingsworth MD> Date Adonay Hollingsworth MD Cosigner Signature (if applicable): Date CC: Adonay Hollingsworth MD; Yrn Hendricks MD; Franco Jacques DO Signed VANCOMYCIN, TROUGH Collected: 05/09/2018 Status: F Source: [place] LEVEL 3:30 PM [facility] REPOSITORY Order Comment: Time Medication is to be Given? 1600 TYPE CODE TESTS RESULT OUT OF REFERENCE UNITS RANGE LAB L501.8820 5.0-15.0 ug/mL High VANCO, TROUGH 20.4 Result Comment: VANCOMYCIN STANDARED DRUG THERAPY TROUGH LEVEL: 5.0 - 15.0 mg/L VANCOMYCIN HIGH INTENSITY THERAPY TROUGH LEVEL: 15.0 - 20.0 mg/L High Intensity therapy recommended for serious life threatening infections include: - Meningitis -Endocarditis -Pneumonia (Ventilator/Healtcare Associated) -Sepsis PLEASE CONTACT PHARMACY SERVICES (#[id number]) FOR INTERPRETATION OF RESULTS. Performed By: #### L501.8820 #### [facility] [address] [place], [address] BASIC METABOLIC Collected: 05/09/2018 Status: F Source: [place] PROFILE (BMP) 5:10 AM [facility] REPOSITORY TYPE CODE TESTS RESULT OUT OF RANGE REFERENCE UNITS LAB L501.0100 74-106 mg/dL Normal GLU 91 Result Comment: Please note revised GLUCOSE reference range effective 2017. LAB L501.1000 7-18 mg/dL Normal BUN 9 LAB L501.1100 0.55-1.02 mg/dL Normal CREAT,SERUM 0.68 Result Comment: The validity of the calculated GFR AND GFRAA in patients over 70 years has not been determined. Clinical correlation is essential. LAB L501.1110 >60 mL/min Normal EST GFR 101 Result Comment: Non- GFR Calc LAB L501.1115 >60 mL/min Normal EST GFR - AA 123 Result Comment: GFR Calc LAB L501.1255 ml/min Normal Estimated CRCL 81.33 LAB L501.1300 10-20 RATIO Normal BUN/CRE 13.3 LAB L501.2200 8.5-10 mg/dL Normal .1 CA 8.5 LAB L501.5300 136-14 mmol/L Normal 5 NA 142 LAB L501.5600 3.5-5. mmol/L Normal 1 K 3.9 LAB L501.5900 98-107 mmol/L Normal CL 103 LAB L501.6100 21.0-3 mmol/L Normal 2.0 CO2 30.0 LAB L501.6200 5-15 Normal GAP 9 Performed By: #### L500.2500, L501.6710, L506.0500 #### [facility] [address] [place], [address] CRP Collected: 05/09/2018 Status: F Source: [place] 5:10 AM [facility] REPOSITORY TYPE CODE TESTS RESULT OUT OF RANGE REFERENCE UNITS LAB L501.6710 0.0-3.0 mg/L High 16.60 C-REACTIVE PROT Result Comment: C-Reactive Protein (CRP) provides useful information for the diagnosis, therapy and monitoring of inflammatory processes and associated diseases. For the evaluation of Relative Risk for Cardiovascular Disease, a High Sensitivity CRP (HSCRP) should be ordered. Performed By: #### L500.2500, L501.6710, L506.0500 #### [facility] [address] [place], [address] PREALBUMIN Collected: 05/09/2018 Status: F Source: [place] 5:10 AM [facility] REPOSITORY TYPE CODE TESTS RESULT OUT OF REFERENCE UNITS RANGE LAB L506.0500 20.0-40.0 mg/dL Low PREALBUMIN 17.3 Performed By: #### L500.2500, L501.6710, L506.0500 #### [facility] [address] [place], [address] ERYTHROCYTE SED RATE Collected: 05/09/2018 Status: F Source: [place] 5:10 AM [facility] REPOSITORY TYPE CODE TESTS RESULT OUT OF RANGE REFERENCE UNITS LAB L102.0000 0-20 mm/hr High SED RATE 40 Performed By: #### L101.9900 #### [facility] [address] [place], [address] MRSA WOUND DNA BY Collected: 05/08/2018 Status: F Source: [place] PCR 3:40 PM [facility] REPOSITORY TYPE CODE TESTS RESULT OUT OF RANGE REFERENCE UNITS LAB L8200.1100 Negative Normal MRSA Negative RESULT LAB L8200.1150 Negative Normal SA RESULT NEGATIVE Performed By: #### L8200.1075 #### [facility] [address] [place], [address] VENOUS DUPLEX LOWER Observed: 05/08/2018 Status: F Source: [place] EXTREMITY 2:42 PM [facility] REPOSITORY [facility] Cardiovascular Services [address] [place] [address] Venous Duplex US, Unilateral 05/07/18 0833 MR#: [id number] Acct: [id number] Name: ROSALIE HORNE Rep #: [id number] : 1975 42 From: Beto Syed MD Attending Dr: Jerry Madrigal DO Status: ADM IN Ordering Dr: Cuca Mast Date: 05/06/18 Location: [facility] [place] Sex: F C Admitted: 05/06/18 Reason For Study: RLE Pain RIGHT GSV is normal. POP V is compressible, spontaneous, phasic, competent and demonstrates normal augmentation. T/P Trunk is compressible. PTV is compressible. RT PerV is compressible. Unable to visualize Rt CFV, Rt FV prox/mid, Rt GSV thigh, Rt PTV prox, and Rt PeroV prox due to pt body habitus. Procedure Exam performed portable in patient room. The study was technically difficult. The study was technically limited. A preliminary report was called and/or faxed to [facility] [place]. Interpretation Summary What was visualized of the right lower extremity deep venous system appears patent and compressible. There is no evidence of right lower extremity deep vein thrombosis. However, the right common femoral vein, proximal and mid- femoral vein, proximal posterior tibial vein and proximal peroneal vein were not visualized due to the patient's body habitus. The right greater saphenous vein appears patent and compressible, though the greater saphenous vein in the thigh was not visualized. Ordering Physician: Cuca Mast Referring Physician: Franco Jacques Performed By: Anna Cespedes RDCS, RVT 05/08/18 1441 Date Beto Syed MD CC: Cuca Mast; Jerry Madrigal DO; Franco Jacques DO Date Dictated: 05/07/1833 Date Transcribed: 05/08/18 144 Efficiency Manager: Signed ABDOMEN/PELVIS WITH Observed: 05/08/2018 Status: F Source: [place] CONTRAST 1:12 PM [facility] REPOSITORY [facility] Imaging Services [address] [place] [address] Abdomen/Pelvis WITH Contrast MR#: [id number] Acct: [id number] Name: ROSALIE HORNE Rep #: [id number] : 1975 F 42 From: Bry Yoon MD PCP: Franco Jacques DO Status: ADM IN Study: Abdomen/Pelvis WITH Contrast Date of Exam: 05/08/18 Exam# [id number] Ordering Dr: Yrn Hendricks MD STUDY: CT ABDOMEN AND PELVIS WITH CONTRAST REASON FOR EXAM: Female, 42 years old. Abdominal pain, umbilical hernia. RADIATION DOSAGE (If Supplied By Facility): CTDIvol = ( 34.45 ) mGy, DLP = ( 2595.49 ) mGycm TECHNIQUE: Transaxial images were obtained from the dome of the diaphragm to the symphysis pubis with oral contrast. 100ML ml of Isovue 300 contrast was administered. Sagittal and coronal images were reconstructed. Individualized dose optimization techniques were used for this CT. COMPARISON: CT Abdomen/Pelvis Mar 08 2018 1:48am FINDINGS: The visualized lung bases are unremarkable. The visualized portions of the heart are within normal limits. Normal liver. There are surgical clips in the gallbladder fossa consistent with a prior cholecystectomy. Normal spleen. Normal pancreas. Normal bilateral adrenal glands. Normal right kidney. Normal left kidney. Normal visualized stomach. There is a lower midline ventral hernia containing nonobstructed small bowel. Small bowel extends into the patient's pannus. Normal colon. There is non-visualization of the appendix. Normal abdominal aorta. Normal inferior vena cava. Normal retroperitoneum. Normal urinary bladder. Normal visualized uterus. Normal abdominal wall. Normal osseous structures. CT/Abdomen/Pelvis WITH Contrast IMPRESSION: There is a lower midline ventral hernia containing nonobstructed small bowel. Small bowel extends into the patient's pannus. Electronically Signed: Bry Yoon MD at 20:00 EDT , Service support , CC: Yrn Hendricks MD; Franco Jacques DO Efficiency Manager: Signed BASIC METABOLIC Collected: 05/08/2018 Status: F Source: [place] PROFILE (BMP) 6:18 AM [facility] REPOSITORY TYPE CODE TESTS RESULT OUT OF RANGE REFERENCE UNITS LAB L501.0100 74-106 mg/dL Normal GLU 96 Result Comment: Please note revised GLUCOSE reference range effective 2017. LAB L501.1000 7-18 mg/dL Normal BUN 7 LAB L501.1100 0.55-1.02 mg/dL Normal CREAT,SERUM 0.67 Result Comment: The validity of the calculated GFR AND GFRAA in patients over 70 years has not been determined. Clinical correlation is essential. LAB L501.1110 >60 mL/min Normal EST GFR 103 Result Comment: Non- GFR Calc LAB L501.1115 >60 mL/min Normal EST GFR - AA 124 Result Comment: GFR Calc LAB L501.1255 ml/min Normal Estimated CRCL 82.54 LAB L501.1300 10-20 RATIO Normal BUN/CRE 10.5 LAB L501.2200 8.5-10 mg/dL Low .1 CA 8.3 LAB L501.5300 136-14 mmol/L Normal 5 NA 143 LAB L501.5600 3.5-5. mmol/L Normal 1 K 3.5 LAB L501.5900 98-107 mmol/L Normal CL 105 LAB L501.6100 21.0-3 mmol/L Normal 2.0 CO2 29.0 LAB L501.6200 5-15 Normal GAP 9 Performed By: #### L500.2500 #### [facility] [address] [place], [address] VANCOMYCIN, TROUGH Collected: 05/07/2018 Status: F Source: [place] LEVEL 9:53 PM [facility] REPOSITORY Order Comment: Time Medication is to be Given? 2300 TYPE CODE TESTS RESULT OUT OF RANGE REFERENCE UNITS LAB L501.8820 5.0-15.0 ug/mL Normal VANCO, TROUGH 10.6 Result Comment: VANCOMYCIN STANDARED DRUG THERAPY TROUGH LEVEL: 5.0 - 15.0 mg/L VANCOMYCIN HIGH INTENSITY THERAPY TROUGH LEVEL: 15.0 - 20.0 mg/L High Intensity therapy recommended for serious life threatening infections include: - Meningitis -Endocarditis -Pneumonia (Ventilator/Healtcare Associated) -Sepsis PLEASE CONTACT PHARMACY SERVICES (#[id number]) FOR INTERPRETATION OF RESULTS. Performed By: #### L501.8820 #### [facility] [address] [place], [address] BEDSIDE GLUCOSE Collected: 05/07/2018 Status: F Source: [place] 11:38 AM [facility] REPOSITORY TYPE CODE TESTS RESULT OUT OF RANGE REFERENCE UNITS LAB L501.080 70-110 mg/dL Normal BEDSIDE GLU 93 Result Comment: MANAGEMENT OF PATIENT CARE PER NURSING PROTOCOL Performed By: #### L501.080 #### [facility] Point of Care [address] [place] [address] BEDSIDE GLUCOSE Collected: 05/07/2018 Status: F Source: [place] 6:39 AM [facility] REPOSITORY TYPE CODE TESTS RESULT OUT OF RANGE REFERENCE UNITS LAB L501.080 70-110 mg/dL Normal BEDSIDE GLU 102 Result Comment: MANAGEMENT OF PATIENT CARE PER NURSING PROTOCOL Performed By: #### L501.080 #### [facility] Point of Care [address] [place] [address] CBC W/DIFF, AUTOMATED Collected: 05/07/2018 Status: F Source: [place] 5:36 AM [facility] REPOSITORY TYPE CODE TESTS RESULT OUT OF RANGE REFERENCE UNITS LAB L100.1000 4.4-11.0 K/mm3 Normal WBC 6.9 LAB L100.1200 4.2-5.4 M/mm3 Low RBC 3.84 LAB L100.1300 12.0-15.0 g/dl Low HGB 10.4 LAB L100.1400 37-47 % Low HCT 34.0 LAB L100.1500 81-99 fL Normal MCV 88.5 LAB L100.1600 27.0-32.0 pg Normal MCH 27.1 LAB L100.1700 32-36 g/gl Low MCHC 30.6 LAB L100.1810 11.6-14.6 % Normal RDW CV 14.3 LAB L100.1820 35.1-43.9 fl High RDW SD 45.6 LAB L100.1900 150-450 K/mm3 Normal PLT 274 LAB L100.2000 6.2-12.0 fl Normal MPV 10.4 LAB L100.2100 47-70 % Normal NEUT% 58.9 LAB L100.2200 19-41 % Normal LY% 24.9 LAB L100.2300 0-10 % Normal MONO% 9.2 LAB L100.2400 0-5 % High EO% 6.5 LAB L100.2500 0-1 % Normal BASO% 0.4 LAB L100.2550 0.0-0.9 % Normal IM GRAN % 0.100 Result Comment: IG% - Immature Granulocytes (promyelocytes, myelocytes and metamyelocytes) > 1% indicates that a LEFT SHIFT is Present. LAB L100.2620 2.0-7.7 X10 3/uL Normal Absolute Neut 4.1 LAB L100.2720 0.83-4.51 X10 3/ul Normal Absolute Lymph 1.73 Performed By: #### L100.0100 #### [facility] [address] [place], [place], [id number] BASIC METABOLIC Collected: 05/07/2018 Status: F Source: MELANIE PROFILE (BMP) 5:36 AM [facility] REPOSITORY TYPE CODE TESTS RESULT OUT OF RANGE REFERENCE UNITS LAB L501.0100 74-106 mg/dL Normal GLU 91 Result Comment: Please note revised GLUCOSE reference range effective 2017. LAB L501.1000 7-18 mg/dL Normal BUN 7 LAB L501.1100 0.55-1.02 mg/dL Normal CREAT,SERUM 0.70 Result Comment: The validity of the calculated GFR AND GFRAA in patients over 70 years has not been determined. Clinical correlation is essential. LAB L501.1110 >60 mL/min Normal EST GFR 97 Result Comment: Non- GFR Calc LAB L501.1115 >60 mL/min Normal EST GFR - AA 118 Result Comment: GFR Calc LAB L501.1255 ml/min Normal Estimated CRCL 79.00 LAB L501.1300 10-20 RATIO Normal BUN/CRE 10.0 LAB L501.2200 8.5-10 mg/dL Low .1 CA 8.1 LAB L501.5300 136-14 mmol/L Normal 5 NA 144 LAB L501.5600 3.5-5. mmol/L Normal 1 K 3.5 LAB L501.5900 98-107 mmol/L High CL 109 LAB L501.6100 21.0-3 mmol/L Normal 2.0 CO2 25.0 LAB L501.6200 5-15 Normal GAP 10 Performed By: #### L500.2500 #### [facility] [address] [place] [address], [id number] BEDSIDE GLUCOSE Collected: 05/06/2018 Status: F Source: [place] 9:49 PM [facility] REPOSITORY TYPE CODE TESTS RESULT OUT OF RANGE REFERENCE UNITS LAB L501.080 70-110 mg/dL Normal BEDSIDE GLU 81 Result Comment: MANAGEMENT OF PATIENT CARE PER NURSING PROTOCOL Performed By: #### L501.080 #### [facility] Point of Care [address] [place], [place] [address] LACTIC ACID Collected: 05/06/2018 Status: F Source: [place] 9:23 PM [facility] REPOSITORY TYPE CODE TESTS RESULT OUT OF RANGE REFERENCE UNITS LAB L503.6005 0.4-2.0 mmol/L Normal LACTIC ACID 1.1 Performed By: #### L503.6005 #### [facility] [address] [place], [address] HISTORY AND PHYSICAL Observed: 05/06/2018 Status: F Source: [place] EXAM 8:17 PM [facility] REPOSITORY [facility] Medical Records Department [address] [place] [address] History and Physical 05/06/186 MR#: [id number] Acct: [id number] Name: ROSALIE HORNE Rep #: [id number] : 1975 42 From: Cuca Mast PCP: Franco Jacques DO Status: ADM IN Y [facility] Problem List (1) Panniculitis Status: Acute (2) Anxiety and depression Status: Chronic (3) Allergic rhinitis Status: Chronic Qualifiers: Allergic rhinitis trigger: unspecified (4) MARCE (obstructive sleep apnea) Status: Chronic Comment: not on CPAP (pt refusal) (5) Asthma Status: Chronic Qualifiers: Asthma severity: unspecified severity Asthma persistence: unspecified Asthma complication type: unspecified Qualified Code(s): J45.909 - Unspecified asthma, uncomplicated (6) Prediabetes Status: Chronic (7) Hypertension Status: Chronic Qualifiers: Hypertension type: essential hypertension Qualified Code(s): I10 - Essential (primary) hypertension (8) Hypothyroid Status: Chronic Qualifiers: Hypothyroidism type: unspecified Qualified Code(s): E03.9 - Hypothyroidism, unspecified History of Present Illness Date of Admission: 05/06/18 Chief Complaint: Abdominal fold redness, infection ongoing despite outpatient treatment. The patient is a 42 y/o F w/ PMHx: Morbid Obesity, Asthma, MARCE refusing to wear CPAP, Pre-Diabetes mellitus mellitus, HTN, GERD, Anxiety and Depression, Allergic Rhinitis, Hypothyroidism who presents to the [facility] ED on 05/06/18 with history of prolonged difficulties w/ abdominal wall/pannicular cellulitis most recently treated inpatient 2 months prior at [facility] with improvement; however, worsened again recently after completion of outpatient abx therapy ( 2 weeks prior) w/ PCP directed abx attempt (3 total including bactrim, keflex and another unclear agent) outpatient but not resolving with no associated fevers or chills. Patient notes she needs to have resolution of the infection in order to continue with future plans for panniculectomy although she does need to loose more weight prior. Workup in the ED included T 98.1, heart rate 106, BP 127/84, respiratory rate 22, 98% on room air, CBC w/ WBC 11.6, Hgb 11.7, Plts 293 without marked shift, BMP w/ K 3.3, LA 2.2, CXR with elevated R hemidiaphragm otherwise not marked appearing, Bld Cx x 2 obtained in the ED. In the ED patient administered Clindamycin. Past Medical History Past Medical History (Chronic Problems): Chronic Problems Anxiety and depression (Chronic) Allergic rhinitis (Chronic) MARCE (obstructive sleep apnea) (Chronic) not on CPAP (pt refusal) Obesity, Class III, BMI 40-49.9 (morbid obesity) (Chronic) Asthma (Chronic) Super-super obese (Chronic) Prediabetes (Chronic) Hypertension (Chronic) Hypothyroid (Chronic) Allergies diphenhydramine HCl [From Benadryl] Allergy (Verified 05/06/18 15:13) Hives metronidazole [From Flagyl] Allergy (Verified 05/06/18 15:13) Rash venom-honey bee [bee venom (honey bee)] Allergy (Verified 05/06/18 15:13) Anaphylaxis aspirin Adverse Reaction (Verified 05/06/18 15:13) Upset Stomach codeine Adverse Reaction (Verified 05/06/18 15:13) Other ibuprofen Adverse Reaction (Verified 05/06/18 15:13) Upset Stomach Penicillins Adverse Reaction (Verified 05/06/18 15:13) Nausea Home Medications: Ambulatory Orders Medication Instructions Recorded Lisinopril/Hydrochlorothiazide 1 tablet PO DAILY 03/08/18 [Zestoretic 10/12.5 Tablet] Loratadine [Claritin] 10 mg PO DAILY 03/08/18 Surgical History: - - 3, cholecystectomy, tonsillectomy. 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 Smoking Status: Never smoker Tobacco Use: Non-smoker Alcohol: None Drugs: None - *Family History Maternal History Items: - - Patient notes a maternal and paternal family history of heart disease, diabetes, high cholesterol, cancer. Paternal History Items: - - Patient notes a maternal and paternal family history of heart disease, diabetes, high cholesterol, cancer. Review of Systems Constitutional: Reports: Malaise, Weakness, Fatigue. Denies: Chills, Fever, Weight Change HEENT: Denies: Head Aches, Sinus Congestion, Sinus Drainage Cardiovascular: Denies: Chest Pain, Palpitations Respiratory: Reports: Shortness of breath upon exertion. Denies: Cough, Shortness of breath at rest, Sputum production Gastrointestinal: Denies: Abdominal Pain, Nausea, Vomiting Genitourinary: Denies: Dysuria Musculoskeletal: Reports: Back Pain. Denies: Joint Pain, Joint Tenderness Skin: Reports: Skin Changes. Denies: Rash, Wounds Neurological: Denies: Numbness, Tingling, Focal weakness Psychiatric: Reports: Anxiety, Depression. Denies: Homicidal Ideations, Suicidal Ideations Hematologic/ Lymphatic: Denies: Easy Bruising, Easy Bleeding VTE Information - Inpt Only VTE Present on Admission: No VTE Mechan Device Prophylaxis: SCD's VTE Pharm Prophylaxis ordered?: Yes Subjective: Seated upright in the ED bed, NAD, foul smell immediately upon entering room. Objective: Physical Examination: General: awake, alert, oriented x 3 and cooperative, seated upright in the ED bed in no apparent distress. Skin: normal color, turgor, no icterus, cyanosis except notable RLE appearance ? erythema, warm to touch, TTP, 1+ pitting edema to this region in addition to pannicular erythema, TTP, no fluctuant regions noted. HEENT: AT/NC, EOMI, PERRLA, mildly dry MM, no carotid bruits or JVD noted; however, habitus makes this difficult to exam. Lungs: Diminished BS diffusely, distant, likely secondary to habitus, mild effort, no rales, ronchi or wheezing. Heart: Mildly tachycardic with regular rhythm; no gallop, rub audible. Abdomen: soft, morbidly obese, notable pannus w/ acute panniculitis notable, see skin, expected TTP of this region otherwise NTTP upper abd, ND, distant BS, unable to assess HSM well secondary to morbid obesity. Extremities: no cyanosis, clubbing, see skin. Neurological: patient awake, alert, oriented x 3; cognitive function intact; pupils equally reactive to light and accomodation; cranial nerves II-XII grossly normal, moving all 4 extremities, no focal deficits, strength severely globally decreased secondary to habitus and acute presentation. Psychiatric: affect appears normal, no acute evidence of depressive or anxiety feelings. - Physical Exam Vital Signs Temp Pulse Resp BP Pulse Ox 98.1 F 102 H 18 122/78 H 97 05/06/18 15:11 05/06/18 17:14 05/06/18 17:14 05/06/18 17:14 05/06/18 17:14 Oxygen Delivery Method Room Air Weight: 480 lb Body Mass Index (BMI) 90.6 Laboratory Tests Past 24 Hrs WBC 11.6 H RBC 4.37 Hgb 11.7 L Hct 38.1 MCV 87.2 MCH 26.8 L MCHC 30.7 L RDW 14.3 RDW Differential 45.7 H Assessment/Plan All Active Problems Severe sepsis (Acute) UTI (urinary tract infection) (Acute) Panniculitis (Acute) Recurrent cellulitis (Acute) Left sided abdominal pain (Acute) UTI (urinary tract infection) (Acute) The patient is a 42 y/o F w/ PMHx: Morbid Obesity, Asthma, MARCE refusing to wear CPAP, Pre-Diabetes mellitus mellitus, HTN, GERD, Anxiety and Depression, Allergic Rhinitis, Hypothyroidism who presents to the [facility] ED on 05/06/18 with history of prolonged difficulties w/ abdominal wall/pannicular cellulitis most recently treated inpatient 2 months prior at [facility] with improvement; however, worsened again recently w/ PCP directed abx attempt outpatient but not resolving with no associated fevers or chills. (1) Severe Sepsis secondary to Abdominal Wall, Pannicular Cellulitis, Failed outpatient Abx Therapies w/ Intertrigo, ? Concurrent RLE anterior tidwell Cellulitis versus Chronic Venous Stasis Changes: ED evaluation w/ tachycardia, increased RR, elevated LA. Will admit to MS, maintain on IV vanc and zosyn, if able will obtain Wound Cx and Wound MRSA PCR, plan repeat CBC in AM, continue pannus elevation as able, monitor erythema outline with VS checks, attempt to keep pannus region clean and dry, consult Wound RN. Mag pending. HgBA1c pending. DVT US RLE pending. Repeat LA per protocol. (2) Hypertension: Continue home regimen including lisinopril, hydrochlorothiazide, PRN hydralazine. (3) Diabetes mellitus type II: Not on regimen, HgbA1c pending, ADA diet, accu checks w/ ISS. (4) Morbid Obesity: Weight loss and lifestyle changes encouraged, nutrition consulted. (5) Hypothyroidism: Continue home synthroid regimen. (6) Allergic rhinitis: Continue home Claritin and Singulair regimen. (7) Anxiety and Depression: Continue home zoloft regimen. (8) GERD: Famotidine. (9) MARCE: CPAP non-compliant. (10) Asthma: Likely hypoventilation syndrome contributing, PRN albuterol, HOB, IS. (11) Hypokalemia: Admission K+ 3.3, supplementation given, repeat level in AM. (12) DVT Prophylaxis: SCDs, lovenox 40 BID given habitus. Code Visit Inpatient E AND M: [id number] Init Hosp L3 05/06/18 2017 <Electronically signed by Cuca Mast > Date Cuca Mast Cosigner Signature: Date (if applicable) CC: Cuca Mast; Franco Jacques DO Signed EMERGENCY DEPARTMENT Observed: 05/06/2018 Status: F Source: [place] SUMMARY 7:49 PM [facility] REPOSITORY [facility] Medical Records Department [address] [place] [address] Emergency Department Summary 05/06/18 1533 MR#: [id number] Acct: [id number] Name: ROSALIE HORNE Rep #: [id number] : 1975 42 From: Mercedes Bear MD PCP: Franco Jacques DO Status: REG ER - ER Visit Summary Date of Service: 05/06/18 Chief Complaint: Abdominal wall infection History of Present Illness: The patient is a 42 F presenting with abdominal wall infection. She states this has been going on for some time and has worsened over the past several days. She was recently on Bactrim and Keflex. She finished these antibiotics over a week ago. She is not currently on antibiotics. She saw her primary care physician today who sent her to the ED for IV antibiotics. Physical Examination: Vitals are stable. Patient is afebrile. Alert no acute distress. HEENT exam is unremarkable. Lungs are clear and equal bilaterally. Heart is regular and tachycardic Abdomen is soft morbidly obese, erythema inferior aspect of the pannus with 8 cm open wound with foul-smelling purulent drainage Extremities: mild bilateral lower extremity erythema Skin is warm and dry. Remainder of exam is unremarkable. Emergency Department Course and Treatment: Patient is given Clindamycin IV. CBC shows a white count of 11.6. Chemistry is unremarkable other than potassium 3.3. Lactic acid 2.2. Blood cultures were sent. EKG is sinus rate of 98 with no acute ischemic changes. Chest x-ray shows right elevated hemidiaphragm which is nonspecific otherwise no acute process. Patient has failed outpatient treatment. Will discuss with the hospitalist for admission for IV antibiotics. Disposition: Admission Impression: Abdominal wall cellulitis This note was generated with Streak dictation software. It may contain incorrect words, spelling, and punctuation that were not noted in review of the chart prior to signing ED Disposition - Plan for ED Patient: Chief Complaint: Wound Referrals: Franco Bardales DO [Primary Care Provider] - What to do if you have Problems For any increased pain, shortness of breath, bleeding, nausea or vomiting, chest pain, or any unexpected problems, contact your Primary Care Provider. Call [facility] ([phone]) or report to the closest Emergency Room. Call 911 if necessary. 05/06/181948 <Electronically signed by Mercedes Bear MD> Date Mercedes Bear MD Cosigner Signature (If Indicated): Date CC: Franco Jacques DO Observed: 05/06/2018 Status: F Source: MELANIE CULTURE, BLOOD (WB) 5:00 PM [facility]OSPITAL REPOSITORY No growth in 5 days. Performed By: #### M200.1000 #### [facility] [address] [place], [place], [address] CBC W/DIFF, AUTOMATED Collected: 05/06/2018 Status: F Source: MELANIE 4:50 PM [facility] REPOSITORY TYPE CODE TESTS RESULT OUT OF RANGE REFERENCE UNITS LAB L100.1000 4.4-11.0 K/mm3 High WBC 11.6 LAB L100.1200 4.2-5.4 M/mm3 Normal RBC 4.37 LAB L100.1300 12.0-15.0 g/dl Low HGB 11.7 LAB L100.1400 37-47 % Normal HCT 38.1 LAB L100.1500 81-99 fL Normal MCV 87.2 LAB L100.1600 27.0-32.0 pg Low MCH 26.8 LAB L100.1700 32-36 g/gl Low MCHC 30.7 LAB L100.1810 11.6-14.6 % Normal RDW CV 14.3 LAB L100.1820 35.1-43.9 fl High RDW SD 45.7 LAB L100.1900 150-450 K/mm3 Normal PLT 293 LAB L100.2000 6.2-12.0 fl Normal MPV 10.6 LAB L100.2100 47-70 % Normal NEUT% 66.1 LAB L100.2200 19-41 % Normal LY% 23.7 LAB L100.2300 0-10 % Normal MONO% 5.7 LAB L100.2400 0-5 % Normal EO% 4.0 LAB L100.2500 0-1 % Normal BASO% 0.3 LAB L100.2550 0.0-0.9 % Normal IM GRAN % 0.200 Result Comment: IG% - Immature Granulocytes (promyelocytes, myelocytes and metamyelocytes) > 1% indicates that a LEFT SHIFT is Present. LAB L100.2620 2.0-7.7 X10 3/uL Normal Absolute Neut 7.7 LAB L100.2720 0.83-4.51 X10 3/ul Normal Absolute Lymph 2.75 Performed By: #### L100.0100 #### [facility] [address] [place], [address] BASIC METABOLIC Collected: 05/06/2018 Status: F Source: MELANIE PROFILE (BMP) 4:50 PM [facility] REPOSITORY TYPE CODE TESTS RESULT OUT OF RANGE REFERENCE UNITS LAB L501.0100 74-106 mg/dL Normal GLU 89 Result Comment: Please note revised GLUCOSE reference range effective 2017. LAB L501.1000 7-18 mg/dL Normal BUN 7 LAB L501.1100 0.55-1.02 mg/dL Normal CREAT,SERUM 0.80 Result Comment: The validity of the calculated GFR AND GFRAA in patients over 70 years has not been determined. Clinical correlation is essential. LAB L501.1110 >60 mL/min Normal EST GFR 83 Result Comment: Non- GFR Calc LAB L501.1115 >60 mL/min Normal EST GFR - AA 101 Result Comment: GFR Calc LAB L501.1255 ml/min Normal Estimated CRCL 69.13 LAB L501.1300 10-20 RATIO Low BUN/CRE 8.8 LAB L501.2200 8.5-10 mg/dL Normal .1 CA 8.9 LAB L501.5300 136-14 mmol/L Normal 5 NA 140 LAB L501.5600 3.5-5. mmol/L Low 1 K 3.3 LAB L501.5900 98-107 mmol/L Normal CL 106 LAB L501.6100 21.0-3 mmol/L Normal 2.0 CO2 29.0 LAB L501.6200 5-15 Normal GAP 5 Performed By: #### L500.2500 #### [facility] [address] [place], [place], [address] LACTIC ACID Collected: 05/06/2018 Status: F Source: MELANIE 4:50 PM [facility] REPOSITORY Order Comment: Yes/No query for Sepsis Lactate Rule Y TYPE CODE TESTS RESULT OUT OF REFERENCE UNITS RANGE LAB L503.6005 0.4-2.0 mmol/L High LACTIC ACID 2.2 Result Comment: Critical Result(s) Called at: 17:50:38 05/06/2018 by: [facility] Performed By: #### L503.6005 #### [facility] [address] [place], [address] MAGNESIUM Collected: 05/06/2018 Status: F Source: MELANIE 4:50 PM [facility] REPOSITORY TYPE CODE TESTS RESULT OUT OF RANGE REFERENCE UNITS LAB L501.5200 1.6-2.6 mg/dL Normal MG 2.0 Performed By: #### L501.5200 #### [facility] [address] [place], [address] HEMOGLOBIN A1C Collected: 05/06/2018 Status: F Source: MELANIE 4:50 PM [facility] REPOSITORY TYPE CODE TESTS RESULT OUT OF RANGE REFERENCE UNITS LAB L501.9985 4.2-6.3 % Normal HGB A1C 5.7 Performed By: #### L501.9985 #### [facility] [address] [place], [address] Observed: 05/06/2018 Status: F Source: MELANIE CULTURE, BLOOD (WB) 4:50 PM [facility] REPOSITORY BC No growth in 5 days. Performed By: #### M200.1000 #### [facility] [address] [place], [address] CHEST 1 VIEW Observed: 05/06/2018 Status: F Source: MELANIE (PORTABLE) 3:32 PM [facility] REPOSITORY [facility] Imaging Services [address] [place] [id number] Chest 1 View (Portable) MR#: [id number] Acct: [id number] Name: ROSALIE HORNE Tara Rep #: [id number] : 1975 F 42 From: Karthik Smart MD PCP: Franco Jacques DO Status: REG ER Study: Chest 1 View (Portable) Date of Exam: 05/06/18 Exam# [id number] Ordering Dr: Mercedes Bear MD STUDY: X-RAY CHEST REASON FOR EXAM: Female, 42 years old. Shortness of breath, dyspnea. Abdominal infection. TECHNIQUE: Portable chest AP upright COMPARISON: 05/12/2017. FINDINGS: Elevated right hemidiaphragm. Clear lungs. Normal cardiomediastinal silhouette, donn and pleural margins. No acute osseous or upper abdominal process is evident. RAD/Chest 1 View (Portable) IMPRESSION: Elevated hemidiaphragm on the right. Nonspecific. Otherwise no acute cardiopulmonary process is evident. Electronically Signed: Karthik Smart, at 16:27 EDT Tel , Service support , CC: Mercedes Bear MD; Franco Jacques DO Efficiency Manager: Signed PROGRESS Observed: 05/06/2018 Status: COMPLETED Source: [place] 2:22 PM [facility] REPOSITORY HNO ID: [id number] Author: Trisha Marie (Fur Stylist) Brittany Service: (none) Author Type: Nurse Practitioner Type: Progress Notes Filed: 05/06/2018 3:02 PM Note Text: HPI/CC: Rosalie Horne is a 42 year old female who presents for Recheck (4-6 week follow up). Patient states overall pannus wound not improving maybe even worse. Home care nurse 3 days a week for wound care, daughter completes wound care on the other days. Reports increased redness, swelling and tenderness. Now has extended to left pannus with open area, Fluid leaking from left panis. Also c/o RLE swelling, erythema and tenderness. Reports fatigue ROS as above, otherwise non-contributory. Reviewed PMHx, PSHx, social Hx, medications and allergies. PHYSICAL EXAMINATION: BP 118/82 Pulse 104 Resp 18 Wt (!) 217.7 kg (480 lb) BMI 90.70 kg/m? General appearance: Well appearing, alert, in no acute distress, well-hydrated, well nourished. and Morbidly obese Skin: right pannus- csection wound bed red/white in color, foul odor noted. Pannus is erythematous and edema with Peau d'orange appearance, tenderness to palpation. This has extended to the left pannus with serosanguinous drainage. ASSESSMENT/PLAN: 1. Cellulitis of skin - ICD9: 682.9, ICD10: L03.90 - ER for parenteral antibiotics and possible admission - verbalizes understanding and will go to [facility] ER. Trisha Redding APRN.CNP CNOV Observed: 05/06/2018 Status: COMPLETED Source: [place] 2:00 PM [facility] REPOSITORY Office Visit (FAMPWS) ROSALIE HORNE ([id number]) 1975 F Date Time Provider Department 05/06/18 2:00 PM TRISHA REDDING (ALYCIA) FAMPWS During your visit today, we recorded the following information about you: Pulse Respiration Blood pressure Weight 104/minute 18/minute 118/82 217.7 kg Trisha Redding APRN.CNP 05/06/2018 3:02 PM Signed HPI/CC: Rosalie Horne is a 42 year old female who presents for Recheck (4-6 week follow up). Patient states overall pannus wound not improving maybe even worse. Home care nurse 3 days a week for wound care, daughter completes wound care on the other days. Reports increased redness, swelling and tenderness. Now has extended to left pannus with open area, Fluid leaking from left panis. Also c/o RLE swelling, erythema and tenderness. Reports fatigue ROS as above, otherwise non-contributory. Reviewed PMHx, PSHx, social Hx, medications and allergies. PHYSICAL EXAMINATION: BP 118/82 Pulse 104 Resp 18 Wt (!) 217.7 kg (480 lb) BMI 90.70 kg/m? General appearance: Well appearing, alert, in no acute distress, well-hydrated, well nourished. and Morbidly obese Skin: right pannus- csection wound bed red/white in color, foul odor noted. Pannus is erythematous and edema with Peau d'orange appearance, tenderness to palpation. This has extended to the left pannus with serosanguinous drainage. ASSESSMENT/PLAN: 1. Cellulitis of skin - ICD9: 682.9, ICD10: L03.90 - ER for parenteral antibiotics and possible admission - verbalizes understanding and will go to [facility] ER. Trisha Redding APRN.POWDER BLENDER AND POURER Referring Provider: TRISHA REDDING (POWDER BLENDER AND POURER) [[id number]] Allergies As of Date: 05/06/2018 Noted Allergy Reaction ASA (ASPIRIN) 01/20/2012 14 - Other: See Comments Comments: Upset stomach BEES 07/21/2005 7 - Swelling BENADRYL (DIPHENHYDRAMINE HCL) 07/21/2005 4 - Hives CODEINE 07/21/2005 1 - Mental Status Change Comments: HALLUCINATIONS FLAGYL (METRONIDAZOLE HCL) 03/08/2018 14 - Other: See Comments Comments: Per pt, topical flagyl irritated her incision and po flagyl gave her GI upset. IBUPROFEN 07/21/2005 8 - GI Upset PENICILLINS 05/10/2015 8 - GI Upset Date Reviewed: 05/06/2018 Reviewed by: Satish Hernandez LPN - Fully Assessed Reason for Visit: Recheck [92] Cmt: 4-6 week follow up Primary Visit Diagnosis:Cellulitis of skin [L03.90] Order(s):Transparent Dressings (TEGADERM ABSORBENT) 4 3/8 X 5 bndgApply 1 application to affected area once daily.Disp: 90 EachRfl: 3 Gauze Bandage 4 X 4 bndgApply 1 application to affected area once daily.Disp: 90 EachRfl: 3 Prescriptions as of 05/06/2018 Sig: TRANSPARENT DRESSINGS 4 3/8 * Apply 1 application to affect* GAUZE BANDAGE 4 X 4 Apply 1 application to affect* SODIUM CHLORIDE 0.75 X 39 B* Apply 1 application to affect* ADHESIVE TAPE 2 X 10 YARD Apply 1 application to affect* SODIUM CHLORIDE 0.9 % IRRIGAT* Irrigate 3-5 mL as instructed* LANCETS Test blood sugar(s) 1 times d* BLOOD SUGAR DIAGNOSTIC STRIPS Test blood sugar(s) 1 times d* NON-ADHERENT BANDAGE 5 X 9 Apply 1 application to affect* BOOST ORAL Take 1 Can by mouth twice dottie* SERTRALINE 100 MG TABLET Take 100 mg by mouth once dottie* LEVOTHYROXINE 300 MCG TABLET Take 1 tablet by mouth once d* PROTEIN ORAL POWDER Take 1 Dose by mouth twice da* OMEPRAZOLE 20 MG CAPSULE,RACHID* Take 1 capsule by mouth once * LISINOPRIL 10 MG-HYDROCHLOROT* Take 1 tablet by mouth once d* MONTELUKAST 10 MG TABLET Take 1 tablet by mouth once d* BLOOD-GLUCOSE METER KIT Glucose Meter of Choice - Kit* LANCING DEVICE Test blood sugar(s) 1 times d* ALBUTEROL SULFATE HFA 90 MCG/* Inhale 2 Puffs as instructed * EPINEPHRINE 0.3 MG/0.3 ML INJ* Use as needed for bee sting Problem List As Of Date 05/06/2018 Noted Resolved Environmental allergies [Z91.09] INVALID FOR* Major depressive disorder, recurrent episode (H*INVALID FOR* More... Obesity, Unspecified [E66.9] INVALID FOR*09/19/2009 Hypothyroidism [E03.9] INVALID FOR* Unspecified essential hypertension [I10] 03/22/2013 Adjustment disorder with depressed mood [F43.21] 12/15/2017 Unspecified asthma [J45.909] INVALID FOR* PLANTAR Fasciitis [M72.2] INVALID FOR* Calcaneal Spur [M77.30] INVALID FOR*09/19/2009 Supervision of Other High-Risk [O09.8*INVALID FOR*09/19/2009 Panic attacks [F41.0] INVALID FOR* Allergic rhinitis [J30.9] INVALID FOR*12/15/2017 Asthma [J45.909] INVALID FOR*08/13/2017 More... Esophageal reflux [K21.9] INVALID FOR* More... Hypertension [I10] INVALID FOR* More... Gallbladder disorder [K82.9] INVALID FOR*12/15/2017 Abnormal gallbladder ultrasound [R93.2] INVALID FOR*12/15/2017 Need for tetanus booster [Z23] INVALID FOR*12/15/2017 Epigastric pain [R10.13] INVALID FOR*12/15/2017 Unspecified gastritis and gastroduodenitis with*INVALID FOR* Morbid obesity with BMI of 70 and over, adult [*INVALID FOR* Cholelithiasis [K80.20] INVALID FOR* Chest pain [R07.9] INVALID FOR* Priority: A More... SUMMARY INVALID FOR*08/13/2017 Priority: A More... Borderline diabetes [R73.03] INVALID FOR*08/13/2017 Cellulitis, abdominal wall [L03.311] INVALID FOR* IFG (impaired fasting glucose) [R73.01] INVALID FOR* Abdominal pannus [E65] INVALID FOR* Vaginal odor [N89.8] INVALID FOR* Myalgia [M79.1] INVALID FOR* Arthralgia of multiple joints [M25.50] INVALID FOR* Protein-deficiency anemia [D53.0] INVALID FOR* Abdominal wall cellulitis [L03.311] INVALID FOR* Prescriptions ordered this encounter Disp Refills Start End TRANSPARENT DRESSINGS 4 3/8 X 5 90 E* 3 05/06/2018 Route: TOPICAL Sig: Apply 1 application to affected area once daily. GAUZE BANDAGE 4 X 4 90 E* 3 05/06/2018 Route: TOPICAL Sig: Apply 1 application to affected area once daily. Medications Discontinued During This Encounter Transparent Dressings (TEGADERM ABSO* 30 E* 1 04/01/2018 05/06/2018 Class: Print RX Route: TOPICAL Sig: Apply 1 application to affected area once daily. Disc: Reason for discontinue is not on file. Gauze Bandage 4 X 4 bndg 30 E* 1 04/01/2018 05/06/2018 Class: Print RX Route: TOPICAL Sig: Apply 1 application to affected area once daily. Disc: Reason for discontinue is not on file. Encounter Status:Closed by TRISHA REDDING CNP on 05/06/18 PROGRESS Observed: 03/31/2018 Status: COMPLETED Source: [place] 2:25 PM [facility] REPOSITORY O ID: [id number] Author: Trisha Marie (Alycia) Brittany Service: (none) Author Type: Nurse Practitioner Type: Progress Notes Filed: 03/31/2018 2:39 PM Note Text: HPI/CC: Rosalie Horne is a 42 year old female who presents for wound Recheck. Right sided panis wound dressing changed daily by HH. Patient stating nurse is asking for a different order for bandaging- will need clarified. Patient is accompanied by daughter who helps with the dressing changes. Denies new symptoms. Denies fevers, chills, N/V, change in appetite. ROS as above, otherwise non-contributory. Reviewed PMHx, PSHx, social Hx, medications and allergies. PHYSICAL EXAMINATION: BP 106/82 (BP Site: Left Arm, BP Position: Sitting, BP Cuff Size: Regular Adult) Pulse 80 Resp 18 Wt (!) 211.4 kg (466 lb) BMI 88.05 kg/m? General appearance: Well appearing, alert, in no acute distress, well-hydrated, well nourished., Morbidly obese Skin: right panis/ c section scar site with open area measuring 3.5cm x 2.5cm x 0.2 cm. Wound bed appears to have granular tissue. No drainage, no erythema to surrounding tissue Lungs: Lungs clear to auscultation. No wheezing, rhonchi, rales Heart: RRR without murmur, gallop, or rubs. No ectopy ASSESSMENT/PLAN: 1. Cellulitis of skin - ICD9: 682.9, ICD10: L03.90 (primary diagnosis) 2. Open wound - ICD9: 879.8, ICD10: T14.8XXA - continue with HH daily dressing changes- orders updated awaiting PCP to sign for faxing - f/u in 4-6 weeks or before if healed VASILIY Interiano Observed: 03/31/2018 Status: COMPLETED Source: [place] 2:20 PM [facility] REPOSITORY Office Visit (FAMPWS) ROSALIE HORNE ([id number]) 1975 F Date Time Provider Department 03/31/18 2:20 PM TRISHA REDDING (ALYCIA) FAMPWS During your visit today, we recorded the following information about you: Pulse Respiration Blood pressure Weight 80/minute 18/minute 106/82 211.4 kg Trisha Redding APRN.CNP 03/31/2018 2:39 PM Signed HPI/CC: Rosalie Horne is a 42 year old female who presents for wound Recheck. Right sided panis wound dressing changed daily by HH. Patient stating nurse is asking for a different order for bandaging- will need clarified. Patient is accompanied by daughter who helps with the dressing changes. Denies new symptoms. Denies fevers, chills, N/V, change in appetite. ROS as above, otherwise non-contributory. Reviewed PMHx, PSHx, social Hx, medications and allergies. PHYSICAL EXAMINATION: BP 106/82 (BP Site: Left Arm, BP Position: Sitting, BP Cuff Size: Regular Adult) Pulse 80 Resp 18 Wt (!) 211.4 kg (466 lb) BMI 88.05 kg/m? General appearance: Well appearing, alert, in no acute distress, well-hydrated, well nourished., Morbidly obese Skin: right panis/ c section scar site with open area measuring 3.5cm x 2.5cm x 0.2 cm. Wound bed appears to have granular tissue. No drainage, no erythema to surrounding tissue Lungs: Lungs clear to auscultation. No wheezing, rhonchi, rales Heart: RRR without murmur, gallop, or rubs. No ectopy ASSESSMENT/PLAN: 1. Cellulitis of skin - ICD9: 682.9, ICD10: L03.90 (primary diagnosis) 2. Open wound - ICD9: 879.8, ICD10: T14.8XXA - continue with HH daily dressing changes- orders updated awaiting PCP to sign for faxing - f/u in 4-6 weeks or before if healed Trisha Redding APRN.POWDER BLENDER AND POURER Referring Provider: SELF [[id number]] Allergies As of Date: 03/31/2018 Noted Allergy Reaction ASA (ASPIRIN) 01/20/2012 14 - Other: See Comments Comments: Upset stomach BEES 07/21/2005 7 - Swelling BENADRYL (DIPHENHYDRAMINE HCL) 07/21/2005 4 - Hives CODEINE 07/21/2005 1 - Mental Status Change Comments: HALLUCINATIONS FLAGYL (METRONIDAZOLE HCL) 03/08/2018 14 - Other: See Comments Comments: Per pt, topical flagyl irritated her incision and po flagyl gave her GI upset. IBUPROFEN 07/21/2005 8 - GI Upset PENICILLINS 05/10/2015 8 - GI Upset Date Reviewed: 03/31/2018 Reviewed by: Arianna Nath LPN - Fully Assessed Reason for Visit: Recheck [92] Primary Visit Diagnosis:Cellulitis of skin [L03.90] Other Visit Diagnoses:Open wound [T14.8XXA] Abdominal wall cellulitis [L03.311] Order(s):Sodium Chloride (MESALT) 0.75 X 39 bndgApply 1 application to affected area once daily.Disp: 30 EachRfl: 1 Adhesive Tape (ALL PURPOSE CLOTH TAPE) 2 X 10 -yard tapeApply 1 application to affected area once daily.Disp: 5 EachRfl: 3 sodium chloride 0.9 % IRRIGATIONIrrigate 3-5 mL as instructed once daily.Disp: 100 mLRfl: 1 Prescriptions as of 03/31/2018 Sig: SODIUM CHLORIDE 0.75 X 39 B* Apply 1 application to affect* ADHESIVE TAPE 2 X 10 YARD Apply 1 application to affect* SODIUM CHLORIDE 0.9 % IRRIGAT* Irrigate 3-5 mL as instructed* LANCETS Test blood sugar(s) 1 times d* BLOOD SUGAR DIAGNOSTIC STRIPS Test blood sugar(s) 1 times d* NON-ADHERENT BANDAGE 5 X 9 Apply 1 application to affect* FLUCONAZOLE 200 MG TABLET Take 1 tablet by mouth once d* CLINDAMYCIN HCL 300 MG CAPSULE Take 1 capsule by mouth every* CEFADROXIL 500 MG CAPSULE Take 2 capsules by mouth twic* BOOST ORAL Take 1 Can by mouth twice dottie* SERTRALINE 100 MG TABLET Take 100 mg by mouth once dottie* LEVOTHYROXINE 300 MCG TABLET Take 1 tablet by mouth once d* PROTEIN ORAL POWDER Take 1 Dose by mouth twice da* OMEPRAZOLE 20 MG CAPSULE,RACHID* Take 1 capsule by mouth once * LISINOPRIL 10 MG-HYDROCHLOROT* Take 1 tablet by mouth once d* MONTELUKAST 10 MG TABLET Take 1 tablet by mouth once d* BLOOD-GLUCOSE METER KIT Glucose Meter of Choice - Kit* LANCING DEVICE Test blood sugar(s) 1 times d* ALBUTEROL SULFATE HFA 90 MCG/* Inhale 2 Puffs as instructed * EPINEPHRINE 0.3 MG/0.3 ML INJ* Use as needed for bee sting Problem List As Of Date 03/31/2018 Noted Resolved Environmental allergies [Z91.09] INVALID FOR* Major depressive disorder, recurrent episode (H*INVALID FOR* More... Obesity, Unspecified [E66.9] INVALID FOR*09/19/2009 Hypothyroidism [E03.9] INVALID FOR* Unspecified essential hypertension [I10] 03/22/2013 Adjustment disorder with depressed mood [F43.21] 12/15/2017 Unspecified asthma [J45.909] INVALID FOR* PLANTAR Fasciitis [M72.2] INVALID FOR* Calcaneal Spur [M77.30] INVALID FOR*09/19/2009 Supervision of Other High-Risk [O09.8*INVALID FOR*09/19/2009 Panic attacks [F41.0] INVALID FOR* Allergic rhinitis [J30.9] INVALID FOR*12/15/2017 Asthma [J45.909] INVALID FOR*08/13/2017 More... Esophageal reflux [K21.9] INVALID FOR* More... Hypertension [I10] INVALID FOR* More... Gallbladder disorder [K82.9] INVALID FOR*12/15/2017 Abnormal gallbladder ultrasound [R93.2] INVALID FOR*12/15/2017 Need for tetanus booster [Z23] INVALID FOR*12/15/2017 Epigastric pain [R10.13] INVALID FOR*12/15/2017 Unspecified gastritis and gastroduodenitis with*INVALID FOR* Morbid obesity with BMI of 70 and over, adult [*INVALID FOR* Cholelithiasis [K80.20] INVALID FOR* Chest pain [R07.9] INVALID FOR* Priority: A More... SUMMARY INVALID FOR*08/13/2017 Priority: A More... Borderline diabetes [R73.03] INVALID FOR*08/13/2017 Cellulitis, abdominal wall [L03.311] INVALID FOR* IFG (impaired fasting glucose) [R73.01] INVALID FOR* Abdominal pannus [E65] INVALID FOR* Vaginal odor [N89.8] INVALID FOR* Myalgia [M79.1] INVALID FOR* Arthralgia of multiple joints [M25.50] INVALID FOR* Protein-deficiency anemia [D53.0] INVALID FOR* Abdominal wall cellulitis [L03.311] INVALID FOR* Prescriptions ordered this encounter Disp Refills Start End SODIUM CHLORIDE 0.75 X 39 BANDAGE 30 E* 1 03/31/2018 Class: Print RX Route: TOPICAL Sig: Apply 1 application to affected area once daily. ADHESIVE TAPE 2 X 10 YARD 5 Ea* 3 03/31/2018 Class: Print RX Route: TOPICAL Sig: Apply 1 application to affected area once daily. SODIUM CHLORIDE 0.9 % IRRIGATION MIKKI* 100 * 1 03/31/2018 Class: Print RX Route: IRRIGATION Sig: Irrigate 3-5 mL as instructed once daily. Medications Discontinued During This Encounter Sodium Chloride (MESALT) 0.75 X 39 * 30 E* 1 03/17/2018 03/31/2018 Class: Print RX Route: TOPICAL Sig: Apply 1 application to affected area once daily. Disc: Reason for discontinue is not on file. Encounter Status:Closed by TRISHA REDDING CNP on 03/31/18 DOWNTIME REPORT Observed: 03/24/2018 Status: F Source: [place] 2:02 PM [facility] REPOSITORY [facility] Medical Records Department [address] [place] [address] Downtime Report MR#: [id number] Acct: [id number] Name: ROSALIE HORNE Rep #: [id number] : 1975 42 From: Steven Farrell MD PCP: Franco Jacques DO Status: DEP ER This patient was seen during an EMR downtime March 08, 2018 - March 15, 2018. This patient may have a combination of paper and electronic documentation or all paper documentation. All documentation is viewable within the e-chart portion of [employer] for each patient visit. CNOV Observed: 03/17/2018 Status: COMPLETED Source: [place] 1:20 PM [facility] REPOSITORY Office Visit (FAMPWS) ROSALIE HORNE ([id number]) 1975 F Date Time Provider Department 03/17/18 1:20 PM TRISHA REDDING (ALYCIA) FAMPWS During your visit today, we recorded the following information about you: Pulse Respiration Blood pressure Weight 76/minute 18/minute 118/84 218.2 kg Trisha Redding APRN.CNP 03/17/2018 1:54 PM Signed HPI/CC: Rosalieangela Horne is a 42 year old female who presents for hospital f/u d/t abdominal panis cellulitis. Cellulitis is a chronic recurrent problem. Admitted from 03/08/2018 to 2017 to [facility]. Was treated with IV antibiotics and sent home with Clindamycin, Ultracef and Diflucan. Also receiving home health care for wound care. HH nurse using mesalt and covering with bandage. Overall doing okay. Denies fevers, chills. ROS as above, otherwise non-contributory. Reviewed PMHx, PSHx, social Hx, medications and allergies. PHYSICAL EXAMINATION: BP 118/84 (BP Site: Left Arm, BP Position: Sitting, BP Cuff Size: Large Adult) Pulse 76 Resp 18 Wt (!) 218.2 kg (481 lb) BMI 90.88 kg/m? General appearance: Well appearing, alert, in no acute distress, well-hydrated, well nourished., Morbidly obese Skin: Skin color, texture, turgor normal, no suspicious rashes or lesions, right panis at c section insciion with open wound, serosang drainage, no purulent drainage. Lungs: Lungs clear to auscultation. No wheezing, rhonchi, rales Heart: RRR without murmur, gallop, or rubs. No ectopy ASSESSMENT/PLAN: 1. Abdominal wall cellulitis - ICD9: 682.2, ICD10: L03.311 - Continue treatment with Po antibiotics as ordered - Follow up for recheck in 2 weeks - follow up with ID - continue home health care with wound managment - SODIUM CHLORIDE 0.75 X 39 BANDAGE - NON-ADHERENT BANDAGE 5 X 9 - SKIN BARRIER WIPES BOX AK 50 Trisha Redding APRN.POWDER BLENDER AND POURER Referring Provider: SELF [200] Allergies As of Date: 03/17/2018 Noted Allergy Reaction ASA (ASPIRIN) 01/20/2012 14 - Other: See Comments Comments: Upset stomach BEES 07/21/2005 7 - Swelling BENADRYL (DIPHENHYDRAMINE HCL) 07/21/2005 4 - Hives CODEINE 07/21/2005 1 - Mental Status Change Comments: HALLUCINATIONS FLAGYL (METRONIDAZOLE HCL) 03/08/2018 14 - Other: See Comments Comments: Per pt, topical flagyl irritated her incision and po flagyl gave her GI upset. IBUPROFEN 07/21/2005 8 - GI Upset PENICILLINS 05/10/2015 8 - GI Upset Date Reviewed: 03/17/2018 Reviewed by: Arianna Nath LPN - Fully Assessed Reason for Visit: Recheck [92] Cmt: wound supplies Primary Visit Diagnosis:Abdominal wall cellulitis [L03.311] Order(s):Lancets lancetsTest blood sugar(s) 1 times daily. Dx: Other DM Code IFG Insulin: NoDisp: 50 EachRfl: 11 blood sugar diagnostic (BLOOD GLUCOSE TEST) test stripTest blood sugar(s) 1 times daily. Dx: Other DM Code IFG Insulin: NoDisp: 50 StripRfl: 11 Sodium Chloride (MESALT) 0.75 X 39 bndgApply 1 application to affected area once daily.Disp: 30 EachRfl: 1 Non-Adherent Bandage (CURITY ABDOMINAL PAD) 5 X 9 bndgApply 1 application to affected area once daily.Disp: 30 EachRfl: 1 SKIN BARRIER WIPES BOX AK 50 [[id number]] Order #: [id number] Prescriptions as of 03/17/2018 Sig: LANCETS Test blood sugar(s) 1 times d* BLOOD SUGAR DIAGNOSTIC STRIPS Test blood sugar(s) 1 times d* SODIUM CHLORIDE 0.75 X 39 B* Apply 1 application to affect* NON-ADHERENT BANDAGE 5 X 9 Apply 1 application to affect* FLUCONAZOLE 200 MG TABLET Take 1 tablet by mouth once d* CLINDAMYCIN HCL 300 MG CAPSULE Take 1 capsule by mouth every* CEFADROXIL 500 MG CAPSULE Take 2 capsules by mouth twic* BOOST ORAL Take 1 Can by mouth twice dottie* SERTRALINE 100 MG TABLET Take 100 mg by mouth once dottie* LEVOTHYROXINE 300 MCG TABLET Take 1 tablet by mouth once d* PROTEIN ORAL POWDER Take 1 Dose by mouth twice da* OMEPRAZOLE 20 MG CAPSULE,RACHID* Take 1 capsule by mouth once * LISINOPRIL 10 MG-HYDROCHLOROT* Take 1 tablet by mouth once d* MONTELUKAST 10 MG TABLET Take 1 tablet by mouth once d* BLOOD-GLUCOSE METER KIT Glucose Meter of Choice - Kit* LANCING DEVICE Test blood sugar(s) 1 times d* ALBUTEROL SULFATE HFA 90 MCG/* Inhale 2 Puffs as instructed * EPINEPHRINE 0.3 MG/0.3 ML INJ* Use as needed for bee sting Problem List As Of Date 03/17/2018 Noted Resolved Environmental allergies [Z91.09] INVALID FOR* Major depressive disorder, recurrent episode (H*INVALID FOR* More... Obesity, Unspecified [E66.9] INVALID FOR*09/19/2009 Hypothyroidism [E03.9] INVALID FOR* Unspecified essential hypertension [I10] 03/22/2013 Adjustment disorder with depressed mood [F43.21] 12/15/2017 Unspecified asthma [J45.909] INVALID FOR* PLANTAR Fasciitis [M72.2] INVALID FOR* Calcaneal Spur [M77.30] INVALID FOR*09/19/2009 Supervision of Other High-Risk [O09.8*INVALID FOR*09/19/2009 Panic attacks [F41.0] INVALID FOR* Allergic rhinitis [J30.9] INVALID FOR*12/15/2017 Asthma [J45.909] INVALID FOR*08/13/2017 More... Esophageal reflux [K21.9] INVALID FOR* More... Hypertension [I10] INVALID FOR* More... Gallbladder disorder [K82.9] INVALID FOR*12/15/2017 Abnormal gallbladder ultrasound [R93.2] INVALID FOR*12/15/2017 Need for tetanus booster [Z23] INVALID FOR*12/15/2017 Epigastric pain [R10.13] INVALID FOR*12/15/2017 Unspecified gastritis and gastroduodenitis with*INVALID FOR* Morbid obesity with BMI of 70 and over, adult [*INVALID FOR* Cholelithiasis [K80.20] INVALID FOR* Chest pain [R07.9] INVALID FOR* Priority: A More... SUMMARY INVALID FOR*08/13/2017 Priority: A More... Borderline diabetes [R73.03] INVALID FOR*08/13/2017 Cellulitis, abdominal wall [L03.311] INVALID FOR* IFG (impaired fasting glucose) [R73.01] INVALID FOR* Abdominal pannus [E65] INVALID FOR* Vaginal odor [N89.8] INVALID FOR* Myalgia [M79.1] INVALID FOR* Arthralgia of multiple joints [M25.50] INVALID FOR* Protein-deficiency anemia [D53.0] INVALID FOR* Abdominal wall cellulitis [L03.311] INVALID FOR* Prescriptions ordered this encounter Disp Refills Start End LANCETS 50 E* 11 03/17/2018 Sig: Test blood sugar(s) 1 times daily. Dx: Other DM Code IFG Insulin: No BLOOD SUGAR DIAGNOSTIC STRIPS 50 S* 11 03/17/2018 Sig: Test blood sugar(s) 1 times daily. Dx: Other DM Code IFG Insulin: No SODIUM CHLORIDE 0.75 X 39 BANDAGE 30 E* 1 03/17/2018 Class: Print RX Route: TOPICAL Sig: Apply 1 application to affected area once daily. NON-ADHERENT BANDAGE 5 X 9 30 E* 1 03/17/2018 Class: Print RX Route: TOPICAL Sig: Apply 1 application to affected area once daily. Medications Discontinued During This Encounter Lancets lancets 50 E* 11 02/06/2017 03/17/2018 Sig: Test blood sugar(s) 1 times daily. Dx: Other DM Code IFG Insulin: No Disc: Reason for discontinue is not on file. blood sugar diagnostic (BLOOD GLUCOS* 50 S* 11 02/06/2017 03/17/2018 Sig: Test blood sugar(s) 1 times daily. Dx: Other DM Code IFG Insulin: No Disc: Reason for discontinue is not on file. Encounter Status:Closed by TRISHA REDDING CNP on 03/17/18 PROGRESS Observed: 03/17/2018 Status: COMPLETED Source: [place] 1:15 PM [facility] REPOSITORY [facility] ID: [id number] Author: Trisha Marie (Alycia) Brittany Service: (none) Author Type: Nurse Practitioner Type: Progress Notes Filed: 03/17/2018 1:54 PM Note Text: HPI/CC: Rosalie Horne is a 42 year old female who presents for hospital f/u d/t abdominal panis cellulitis. Cellulitis is a chronic recurrent problem. Admitted from 03/08/2018 to 2017 to [facility]. Was treated with IV antibiotics and sent home with Clindamycin, Ultracef and Diflucan. Also receiving home health care for wound care. nurse using mesalt and covering with bandage. Overall doing okay. Denies fevers, chills. ROS as above, otherwise non-contributory. Reviewed PMHx, PSHx, social Hx, medications and allergies. PHYSICAL EXAMINATION: BP 118/84 (BP Site: Left Arm, BP Position: Sitting, BP Cuff Size: Large Adult) Pulse 76 Resp 18 Wt (!) 218.2 kg (481 lb) BMI 90.88 kg/m? General appearance: Well appearing, alert, in no acute distress, well-hydrated, well nourished., Morbidly obese Skin: Skin color, texture, turgor normal, no suspicious rashes or lesions, right panis at c section insciion with open wound, serosang drainage, no purulent drainage. Lungs: Lungs clear to auscultation. No wheezing, rhonchi, rales Heart: RRR without murmur, gallop, or rubs. No ectopy ASSESSMENT/PLAN: 1. Abdominal wall cellulitis - ICD9: 682.2, ICD10: L03.311 - Continue treatment with Po antibiotics as ordered - Follow up for recheck in 2 weeks - follow up with ID - continue home health care with wound managment - SODIUM CHLORIDE 0.75 X 39 BANDAGE - NON-ADHERENT BANDAGE 5 X 9 - SKIN BARRIER WIPES BOX AK 50 Trisha Redding APRN.POWDER BLENDER AND POURER [facility] Observed: 03/12/2018 Status: COMPLETED Source: [place] 4:11 PM [facility] REPOSIT[facility] HNO ID: [id number] Author: Barb Sood Coord Service: (none) Author Type: (none) Type: Allied Health Filed: 03/12/2018 4:12 PM Note Text: ADMINISTRATIVE ASSISTANT OFFICE MANAGER NOTE SERVICE DATE: 03/12/2018 SERVICE TIME: 4:11 PM Home Care consult ordered by Sanjay Alarcon DO SIGNATURE: Barb Sood Coord PATIENT NAME: Rosalie Horne DATE: March 12, 2018 TIME: 4:11 PM [facility] Observed: 03/12/2018 Status: COMPLETED Source: [place] 3:41 PM [facility] REPOSITORY HNO ID: [id number] Author: Dina VickRn) ADRIANNA Thomas Service: Home Care Services Author Type: Registered Nurse Type: Allied Health Filed: 03/12/2018 3:49 PM Note Text: ADMINISTRATIVE ASSISTANT OFFICE MANAGER NOTE SERVICE DATE: 03/12/2018 SERVICE TIME: 3:42 PM Discharge: Aware of Discharge home today Physician order placed for Home Care Services Home Care Agency: [facility] Start of care date: Patient/Family agree to discharge plan: SIGNATURE: Dina Thomas RN PATIENT NAME: Rosalie Horne DATE: March 12, 2018 TIME: 3:41 PM CNDS Observed: 03/12/2018 Status: COMPLETED Source: [place] 3:10 PM [facility] OTHER CAMPUS REPOSITORY HNO ID: [id number] Author: Sanjay Alarcon Service: Hospital Medicine Author Type: Physician Type: Discharge Summaries Filed: 03/12/2018 3:24 PM Note Text: DISCHARGE SUMMARY PATIENT NAME: Rosalie Horne ADMISSION DATE: 03/08/2018 DISCHARGE DATE: 03/12/2018 ATTENDING PHYSICIAN: Aj You MD REASON FOR HOSPITALIZATION: Abdominal wall cellulitis DIAGNOSIS: Active Problems: Abdominal wall cellulitis Resolved Problems: * No resolved hospital problems. * OPERATIONS DURING HOSPITALIZATION: None PROCEDURES DURING HOSPITALIZATION: No procedures performed HOSPITAL COURSE: This is a 42 year old female who presents with abdominal wall cellulitis. Was treated with IV antibiotics and discharged on oral antibiotics per ID recommendations. She will complete 3 weeks of antibiotics and follow up with Dr. Benjamin in person or over the phone. Surgery was consulted for possible incarcerated hernia, which was reduced in ED by surgery. No further inpatient interventions recommended by surgery. Patient stable for discharge. LABS AND PROCEDURES PENDING AT DISCHARGE: No pending results. CONSULTING TEAMS DURING HOSPITALIZATION: Infectious Disease: Dr. Benjamin Surgery : General PATIENT CONDITION AT DISCHARGE: Stable DISCHARGE DISPOSITION: Home with Home Health Care 03/11/18 1650 03/11/18 2200 03/12/18 0400 03/12/18 0739 BP: 137/74 137/74 137/77 108/52 Pulse: 78 84 80 85 Resp: Temp: 36.5 ?C (97.7 ?F) 36.6 ?C (97.9 ?F) 36.5 ?C (97.7 ?F) 36 ?C (96.8 ?F) TempSrc: Temporal Artery Oral Temporal Artery SpO2: 96% 94% 95% 93% Weight: Height: General: AANDOx3, NAD, Cooperative CV: RRR, +[id number], no murmurs Resp: CTA b/l, no wheeze Abd: Distended abdomen, Lower abdomen with dressings in place. No obvious drainage. Ext: no LE edema. DISCHARGE MEDICATION: Current Discharge Medication List START taking these medications fluconazole (DIFLUCAN) 200 mg Take 200 mg by mouth once daily. Qty: 21 tablet Refills: 0 clindamycin (CLEOCIN) 300 mg Take 300 mg by mouth every 6 hours. Qty: 83 capsule Refills: 0 cefADROxil (DURICEF) 1,000 mg Take 1,000 mg by mouth twice daily. Qty: 84 capsule Refills: 0 CONTINUE these medications which have NOT CHANGED lactose-reduced food (BOOST ORAL) 1 Can Take 1 Can by mouth twice daily. sertraline (ZOLOFT) 100 mg Take 100 mg by mouth once daily. levothyroxine (SYNTHROID) 300 mcg Take 300 mcg by mouth once daily. Take with 200 mcg tablet to total 225 mg a day Qty: 90 tablet Refills: 3 Associated Diagnoses:Hypothyroidism, unspecified type omeprazole (PriLOSEC) 20 mg Take 20 mg by mouth once daily. Qty: 60 capsule Refills: 11 lisinopril-hydrochlorothiazide (PRINZIDE,ZESTORETIC) 1 tablet Take 1 tablet by mouth once daily. Qty: 30 tablet Refills: 11 Associated Diagnoses:Essential hypertension montelukast (SINGULAIR) 10 mg Take 10 mg by mouth once daily. Qty: 30 tablet Refills: 11 Associated Diagnoses:Environmental allergies Blood-Glucose Meter monitoring kit Glucose Meter of Choice - Kit - Dx: Other DM Code Impaired fasting glucose Qty: 1 Each Refills: 0 blood sugar diagnostic (BLOOD GLUCOSE TEST) test strip Test blood sugar(s) 1 times daily. Dx: Other DM Code IFG Insulin: No Qty: 50 Strip Refills: 11 Lancets lancets Test blood sugar(s) 1 times daily. Dx: Other DM Code IFG Insulin: No Qty: 50 Each Refills: 11 EPINEPHrine (EPIPEN) 0.3 mg/0.3 mL PnIj Use as needed for bee sting Qty: 2 Each Refills: 1 Protein 1 Dose Take 1 Dose by mouth twice daily. Qty: 3 Can Refills: 3 Associated Diagnoses:Other iron deficiency anemia Lancing Device misc Test blood sugar(s) 1 times daily. Dx: Other DM Code IFG Insulin: No Qty: 1 Each Refills: 0 albuterol HFA (PROVENTIL HFA, VENTOLIN HFA) 2 Puffs Inhale 2 Puffs as instructed four times daily. Qty: 1 Each Refills: 11 Associated Diagnoses:Unspecified asthma(493.90) STOP taking these medications naproxen sodium (ALEVE ORAL) Comments: Reason for Stopping: cephALEXin (KEFLEX) 500 mg Comments: Reason for Stopping: sulfamethoxazole-trimethoprim (BACTRIM DS,SEPTRA DS) 1 tablet Comments: Reason for Stopping: metroNIDAZOLE 1 application Comments: Reason for Stopping: mupirocin (BACTROBAN) 1 application Comments: Reason for Stopping: loratadine (CLARITIN) 10 mg Comments: Reason for Stopping: nystatin (MYCOSTATIN) 1 application Comments: Reason for Stopping: buPROPion SR (ZYBAN SR; WELLBUTRIN SR) 150 mg Comments: Reason for Stopping: triamcinolone acetonide (KENALOG) 1 application Comments: Reason for Stopping: diclofenac sodium (VOLTAREN) 1 g Comments: Reason for Stopping: ondansetron (ZOFRAN) 4 mg Comments: Reason for Stopping: FUTURE APPOINTMENTS: Follow Up with PCP: Franco Bardales DO Follow Up with ID TIME OF CARE (Use first blank if not applicable): TIME OF CARE: Discharge Management: I personally spent greater than 30 minutes involved in the discharge management of this patient. SIGNATURE: Sanjay Alarcon DO PATIENT NAME: Rosalie Horne DATE: March 12, 2018 TIME: 3:10 PM PAGER/CONTACT #: [facility] Observed: 03/12/2018 Status: COMPLETED Source: [place] 2:29 PM CLINIC OTHER CAMPUS REPOSITORY [facility] ID: [id number] Author: Dina (Adrianna) ADRIANNA Granados Service: Home Care Services Author Type: Registered Nurse Type: Allied Health Filed: 03/12/2018 2:30 PM Note Text: ADMINISTRATIVE ASSISTANT OFFICE MANAGER NOTE SERVICE DATE: 03/12/2018 SERVICE TIME: 2:29 PM Patient Choice: Spoke with patient at bedside. Discussed home health care services. Patient given a choice - chose [facility] or first available. Discussed homebound requirements with pt. SIGNATURE: Dina Granados RN PATIENT NAME: Rosalie Horne DATE: March 12, 2018 TIME: 2:29 PM PROGRESS Observed: 03/12/2018 Status: COMPLETED Source: [place] 11:52 AM CLINIC OTHER CAMPUS REPOSITORY [facility] ID: [id number] Author: Candido Benjamin III Service: Infectious Disease Author Type: Physician Type: Progress Notes Filed: 03/12/2018 11:57 AM Note Text: CONSULT PROGRESS NOTE SERVICE DATE: March 12, 2018 11:52 AM CONSULTING SERVICE: INFECTIOUS DISEASE Subjective INTERVAL HPI: F/u panniculitis onzosyn, fluconazole Feeling better. Now has no in abdomen at rest, now only hurts when she gets up to go to the bathroom. No fevers or chills. Not having any nausea or diarrhea. No rashes. Current hospital medications: piperacillin-tazobactam 3.375 g in dextrose (iso-osmotic) 50 mL (ZOSYN) 3.375 g INTRAVENOUS q 6 H fluconazole 400 mg tab(s) (DIFLUCAN) 400 mg ORAL DAILY iv contrast (radiology procedure) INTRAVENOUS DIRECTED PRN albuterol HFA 90 mcg/actuation 2 Puff (PROVENTIL HFA, VENTOLIN HFA) 2 Puff INHALATION QID montelukast 10 mg tab(s) (SINGULAIR) 10 mg ORAL AT BEDTIME pantoprazole DR 40 mg tab(s) (PROTONIX) 40 mg ORAL DAILY (6 AM) levothyroxine 300 mcg (SYNTHROID) 300 mcg ORAL BEFORE BREAKFAST DAILY ondansetron 4 mg tab(s) (ZOFRAN) 4 mg ORAL q 6 H PRN ondansetron (PF) 4 mg injection (ZOFRAN) 4 mg INTRAVENOUS q 6 H PRN magnesium hydroxide 400 mg/5 mL 30 mL (MOM) 30 mL ORAL DAILY PRN docusate sodium 100 mg cap(s) (COLACE) 100 mg ORAL BID PRN acetaminophen 650 mg tab(s) (TYLENOL) 650 mg ORAL q 6 H PRN morphine 1-2 mg injection 1-2 mg INTRAVENOUS q 4 H PRN lisinopril 10 mg tab(s) (ZESTRIL, PRINIVIL) 10 mg ORAL DAILY hydroCHLOROthiazide 12.5 mg tab(s) (HYDRODIURIL, ESIDRIX) 12.5 mg ORAL DAILY heparin 5,000 Units injection 5,000 Units SUBCUTANEOUS q 8 H pill splitter (patient-specific) 1 Each Miscell. (Med.Supl.;Non- Drugs) PRN pill splitter (patient-specific) 1 Each Miscell. (Med.Supl.;Non- Drugs) PRN Objective PHYSICAL EXAM: Physical Exam Performed: General: Morbidly obese, no distress HEENT: no thrush Abdomen: Much better appearance to pannus. Mild hyperpigmentation. No tenderness. No erythema or warmth. Wounds currently bandaged. Fungal dermatitis on inner thighs has resolved. BP 108/52 Pulse 85 Temp (Src) 96.8 (Temporal Artery) Resp 18 Ht 5' 1 (1.55m) Wt 512 lb 4.8 oz (232.4kg) SpO2 93% BMI 96.85 kg/(m2). DATA: Diagnostic tests reviewed for today's visit: Wound culture- amato-susceptible E. coli Impression/Recommendations 42 year old female with morbid obesity with panniculitis with wound growing E. Coli. Also want to cover for strep, anaerobes and yeast as part of definitive therapy. She is intolerant to augmentin and flagyl, so next best choice for anaerobes will be clindamycin. Plan: 1) Narrow zosyn to ancef plus oral clindamycin. When discharged change the ancef to oral cefadroxil 1000mg BID. 2) Continue fluconazole- decrease to 200mg daily Will plan on giving all of the above (cefadroxil plus clinda plus fluconazole) x 3 weeks as an outpatient. Was going to have patient into the office then to reassess but she thinks it will be difficult to get into the office so told her to follow up by phone in about 2.5 weeks- on discharge instructions please have her call [phone] the week of 03/22 so she and I can discuss. 3) Needs to lose weight Ok for discharge from my standpoint. Will sign off SIGNATURE: Candido Benjamin III, MD PATIENT NAME: Rosalie Horne DATE: March 12, 2018 TIME: 11:57 AM PAGER/CONTACT #: [phone] CASE MANAGEM Observed: 03/12/2018 Status: COMPLETED Source: [place] 10:55 AM CLINIC OTHER CAMPUS REPOSITORY [facility] ID: [id number] Author: Cathy Adame) ADRIANNA Crouch Service: Care Management Author Type: Registered Nurse Type: Care Mgt Progress Note Filed: 03/12/2018 10:56 AM Note Text: CARE MANAGEMENT PROGRESS NOTE SERVICE DATE: 03/12/2018 SERVICE TIME: 1055 LOS: 4 days Needs Prior to Discharge: Home Care Order Discharge plan remains return to home when medically stable. C following for SN at discharge to assist with wound care/teaching; patient reports daughter is able to assist/learn. Per ID-awaiting final wound cultures to determine discharge antibiotics; Dr Benjamin states he anticipates oral antibiotic needed. No new discharge needs noted at this time. SIGNATURE: Cathy Crouch RN PATIENT NAME: Rosalie Horne DATE: March 12, 2018 TIME: 10:55 AM PAGER/CONTACT #: [phone] GLUCOSE METER Collected: 03/12/2018 Status: F Source: [employer] [facility] 6:58 AM HEALTH SYSTEM REPOSITORY TYPE CODE TESTS RESULT OUT OF REFERENCE UNITS RANGE LAB GLUBL(LOINC 70-99 mg/dL ) Glucose Meter 97 Result Comment: RN NOTIFIED Performed By: #### GLMET #### [place] [address] HEMOGRAM Collected: 03/12/2018 Status: F Source: [employer] [facility] 4:20 AM HEALTH SYSTEM REPOSITORY TYPE CODE TESTS RESULT OUT OF REFERENCE UNITS RANGE LAB WBC(LOINC) 3.98-10.04 thou/cmm WBC 8.61 LAB RBC(LOINC) 3.93-5.22 mil/cmm Low RBC 3.51 LAB HGB(LOINC) 11.2-15.7 g/dL Low Hgb 10.3 LAB HCT(LOINC) 34.1-44.9 % Low Hct 32.9 LAB MCV(LOINC) 79.4-94.8 fl MCV 93.7 LAB MCH(LOINC) 25.6-32.2 pg MCH 29.3 LAB MCHC(LOINC) 31.6-34.8 % Low MCHC 31.3 LAB RDW(LOINC) 11.7-14.4 % RDW 14.4 LAB RDWSD(LOINC 36.4-46.3 fl ) High RDW SD 49.1 LAB PLT(LOINC) 182-369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 96.85 kg/(m2). GENERAL: Alert, no distress, cooperative BACK: Back symmetric, Normal curvature, ROM normal, No CVAT. LUNGS: Lungs clear to auscultation, Good diaphragmatic excursion CARDIAC: Normal S1 and S2; no rubs, murmurs, or gallops ABDOMEN: Abdomen soft, obese non-tender, has mild ertyehma of lower abdomen- from umbilicus to mons pubis. Large pannus. IN midline of the lower abdomen there is a wound that appears to be about 6 x 1.5cm and appears macerated. No purulent drainage at this site. Has abdominal wall edema with some seepage of clear fluid.EXTREMITIES: Extremities normal, no deformities, edema, clubbing or skin discoloration. NEURO: No focal motor or sensory deficit PULSES: 2+ radial, 2+ carotid DATA: Diagnostic tests reviewed for today's visit: Most recent labs and imaging results. Assessment/Plan ? # Abdominal wall cellulites, c/w Linezolid and zosyn, ID and wound care following ? # Abdominal hernia, reducible by surgery, surgery following ? # HTN, hypothyroidism, DM, stable, resume home meds ? # Morbid obesity, pt will benefit from bypass surgery eventually ? SIGNATURE: Aj You MD PATIENT NAME: Rosalie Horne TIME: 1:29 PM PAGER/CONTACT #: GLUCOSE METER Collected: 03/10/2018 Status: F Source: [facility] 7:06 AM HEALTH SYSTEM REPOSITORY TYPE CODE TESTS RESULT OUT OF REFERENCE UNITS RANGE LAB GLUBL(LOINC 70-99 mg/dL ) Glucose Meter 92 Result Comment: RN NOTIFIED Performed By: #### GLMET #### [place] [id number] GLUCOSE METER Collected: 03/09/2018 Status: F Source: [facility] 9:41 PM HEALTH SYSTEM REPOSITORY TYPE CODE TESTS RESULT OUT OF REFERENCE UNITS RANGE LAB GLUBL(LOINC 70-99 mg/dL ) High Glucose Meter 100 Result Comment: RN NOTIFIED Performed By: #### GLMET #### [place] [id number] CASE MGT INIT Observed: 03/09/2018 Status: COMPLETED Source: [place] 2:52 PM CLINIC OTHER CAMPUS REPOSITORY HNO ID: [id number] Author: Cathy (Rn) ADRIANNA Crouch Service: Care Management Author Type: Registered Nurse Type: Care Mgt Initial Assessment Filed: 03/09/2018 3:07 PM Note Text: CARE MANAGEMENT: ASSESSMENT AND DISCHARGE PLAN SERVICE DATE: 03/09/2018 SERVICE TIME: 1425 PRIMARY CARE PHYSICIAN: Franco Bardales DO ADMISSION STATUS: Inpatient Needs Prior to Discharge: None 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 Health Insurance: [facility] MEDICA[facility] Health Issues Impacting Discharge Plan: umbilial hernia and abdominal wall cellulitis Last Admission Date: Previous admit date: 01/30/2016 Is this Within the Past 30 days? No Advance Directive: Health Literacy: 1. How often do you need to have someone help you when you read instructions, pamphlets, or other written material from your doctor or pharmacy? Rarely - 2 2. How confident are you filling out medical forms by yourself? Quite a bit - 2 If Patient scores > 3 on either question, the following interventions were put into place: Use of plain language and active listening with Patient and family, Use concrete and specific phrases, avoid medical jargon, Gave Patient the opportunity to ask questions and Patient did not score > 3 FUNCTIONAL AND COGNITIVE/BEHAVIORAL PRIOR TO ADMISSION: Baseline Mental Status: Alert AND Oriented, Person, Place , Time and Situation Functional Status: Needs Assistance Does Patient Currently Receive Any Community Services or Home Care? None Equipment Prior to Admission: Bi-level Positive Airway Pressure/Continuous Positive Airway Pressure Cane - Straight Walker Has the Patient Been in a Correction Facility in the Past 30 days? No SOCIAL: Living Arrangement: Home Lives With: Spouse and kids Financial Resources: Unemployed Primary Contact: Extended Emergency Contact Information Primary Emergency Contact: SerenityAna sandy Relation: Mother Supportive: Yes Other Important Patient Contacts: None Caregiver Assessment: Caregiver is ready, willing and able to meet the patient's needs as recommended by the inter-professional team? Yes Patient's transition needs and plan for meeting these needs: Patient plans to return home with /kids assistance when medically stable. Does the patient have an acute stroke diagnosis, or has the patient had a stroke during this admission? No Medication Adherence: I am convinced of the importance of my prescription medication: Agree mostly - 0 I worry that my prescription medication will do more harm than good to me Disagree completely - 0 I feel financially burdened by my xde-eu-vlueiw expenses for my prescription medication: Disagree somewhat - 0 Patient is categorized as low risk < 2 Are you interested in bedside delivery of your medications? Yes Food Concerns: In the Last Month, Have You had Trouble Getting Food? No trouble getting food During the Last Month, Have You Worried Whether Your Food Would Run Out Before You Had Enough Money to Buy More? No Is the Patient Psychosocially Complex? No ASSESSMENT AND PLAN: Medical Needs: 2 or more chronic diseases and Obesity Psychosocial Needs: None FREEDOM OF CHOICE EXPLAINED: N/A --no discharge needs noted at this time POTENTIAL TRANSITION PLANS Home SIGNATURE: Cathy Crouch RN PATIENT NAME: Rosalie Horne DATE: March 09, 2018 TIME: 2:53 PM PAGER/CONTACT #: [phone] PROGRESS Observed: 03/09/2018 Status: COMPLETED Source: [place] 1:29 PM CLINIC OTHER CAMPUS REPOSITORY O ID: [id number] Author: Aj You MD Service: Hospital Medicine Author Type: Physician Type: Progress Notes Filed: 03/09/2018 1:34 PM Note Text: DEPARTMENT OF HOSPITAL MEDICINE PROGRESS NOTE Subjective Patient was seen, no abdominal pain Denies fever, chills, n, v, cp, sob, palpitation, headache MEDICATIONS: Reviewed Objective PHYSICAL EXAM: BP 127/77 Pulse 85 Temp (Src) 97.9 (Temporal Artery) Resp 18 Ht 5' 1 (1.55m) Wt 512 lb 4.8 oz (232.4kg) SpO2 99% BMI 96.85 kg/(m2). GENERAL: Alert, no distress, cooperative BACK: Back symmetric, Normal curvature, ROM normal, No CVAT. LUNGS: Lungs clear to auscultation, Good diaphragmatic excursion CARDIAC: Normal S1 and S2; no rubs, murmurs, or gallops ABDOMEN: Abdomen soft, obese non-tender, has mild ertyehma of lower abdomen- from umbilicus to mons pubis. Large pannus. IN midline of the lower abdomen there is a wound that appears to be about 6 x 1.5cm and appears macerated. No purulent drainage at this site. Has abdominal wall edema with some seepage of clear fluid. Erythema on inner thighs with satellite lesions suggestive of fungal infection EXTREMITIES: Extremities normal, no deformities, edema, clubbing or skin discoloration. NEURO: No focal motor or sensory deficit PULSES: 2+ radial, 2+ carotid DATA: Diagnostic tests reviewed for today's visit: Most recent labs and imaging results. Assessment/Plan ? # Abdominal wall cellulites, c/w Linezolid and zosyn, Dc IVF, ID and wound care following ? # Abdominal hernia, reducible by surgery, surgery following ? # HTN, hypothyroidism, DM, stable, resume home meds ? # Morbid obesity, pt will benefit from bypass surgery eventually ? SIGNATURE: Aj You MD PATIENT NAME: Rosalie Horne TIME: 1:29 PM PAGER/CONTACT #: Observed: 03/09/2018 Status: F Source: [facility] 12:30 PM HEALTH SYSTEM AND AER REPOSITORY Test performed at [facility] Few Mixed skin landon. No further identification to follow. Plates will be held for 5 days. Few Mixed anaerobic landon. No further identification to follow. Plates will be held for 5 days. Few WBC No organisms seen ORGANISM: Escherichia coli (ID: 1) Rare Performed By: #### C_ANA #### [facility] [address] [place] [id number] CONSULT Observed: 03/09/2018 Status: COMPLETED Source: [place] 12:04 PM CLINIC OTHER CAMPUS REPOSITORY HNO ID: [id number] Author: Candido Benjamin III Service: Infectious Disease Author Type: Physician Type: Consults Filed: 03/09/2018 12:20 PM Note Text: CONSULT: INFECTIOUS DISEASE SERVICE SERVICE DATE: 03/09/2018 SERVICE TIME: 12:04 PM REASON FOR CONSULT: abdominal wall cellulitis REQUESTING PHYSICIAN: Dr. You PRIMARY CARE PHYSICIAN: Franco Bardales DO Subjective 42 year old female morbidly obese (BMI=96.8) with history of borderline diabetes and with hypdertension and hypothyroidism was transferred from outside hospital due to concern for incarcerated hernia. Here she was seen by surgery. It was found to be reducible. CT could not be performed due to patient's size. We were consulted for abdominal wall cellulitis. Patient has been having wound issues for the past year. This is at the site of three prior C-sections, the last of which was ten years ago. Wound opened up last year. She has been on and off of antibiotics for the past year. She recalls that it is usually a combination of bactrim plus keflex. She says she recalls having a staph infection in the past. The longest she has been on antibiotics at a time is two weeks but then the infection usually comes back. Last week she has return of the redness. She developed fevers and chills. Curerntly no fevers or chills. She has pain in the lower abdomen across the lower abdomen in band-like fashion. ALLERGIES Allergen Reactions - Asa [Aspirin] Other: See Comments Upset stomach - Bees Swelling - Benadryl [Diphenhyd* Hives - Codeine Mental Status Change HALLUCINATIONS - Flagyl [Metronidazo* Other: See Comments Per pt, topical flagyl irritated her incision and po flagyl gave her GI upset. - Ibuprofen GI Upset - Penicillins GI Upset- tolerates cephalosporins FUNCTIONAL STATUS: Partially dependent PAST MEDICAL HISTORY Diagnosis Date - Adjustment disorder with depressed mood - Impaired fasting glucose 6.0% - Migraines - Morbid obesity (HCC) - Unspecified asthma(493.90) - Unspecified essential hypertension - Unspecified hypothyroidism 06/2003 PAST SURGICAL HISTORY Procedure Laterality Date - DELIVERY ONLY 02/20/1999 AND 05/03/1996 AND 2007 - CHOLECYSTECTOMY - EGD W/O [facility] SPECIMEN W/BX 04/11/13 mild gastritis - MIDLINE CATHETER 01/31/2016 - TONSILLECTOMY HX FAMILY HISTORY Problem Relation Age of Onset - Breast Cancer Maternal Grandmother - Breast Cancer Paternal Aunt - Hypertension both grandmothers and both sides of the family/aunts and uncles - Heart Father - Diabetes Father was in a coma x 1 month due to diabetes per patient - Arthritis Mother - Asthma Mother - Thyroid Mother Social History Substance Use Topics - Smoking status: Former Smoker Quit date: 01/06/2007 - Smokeless tobacco: Never Used Comment: SOCIALLY ONLY OR WHEN STRESSED - Alcohol use Yes Comment: rare Prescriptions Prior to Admission: lactose-reduced food (BOOST ORAL) Take 1 Can by mouth twice daily. Disp: Rfl: 03/07/2018 naproxen sodium (ALEVE ORAL) Take by mouth as directed. Disp: Rfl: 03/03/2018 sertraline (ZOLOFT) 100 mg tablet Take 100 mg by mouth once daily. Disp: Rfl: levothyroxine (SYNTHROID) 300 mcg tablet Take 1 tablet by mouth once daily. Take with 200 mcg tablet to total 225 mg a day Disp: 90 tablet Rfl: 3 03/06/2018 metroNIDAZOLE 0.75 % lotn Apply 1 application to affected area once daily. To area of open wound on abdomen Disp: 1 Bottle Rfl: 3 omeprazole (PRILOSEC) 20 mg capsule Take 1 capsule by mouth once daily. Disp: 60 capsule Rfl: 11 03/06/2018 mupirocin (BACTROBAN) 2 % ointment Apply 1 application to affected area twice daily. Disp: 30 g Rfl: 0 lisinopril-hydrochlorothiazide (PRINZIDE,ZESTORETIC) 10-12.5 mg per tablet Take 1 tablet by mouth once daily. Disp: 30 tablet Rfl: 11 03/06/2018 montelukast (SINGULAIR) 10 mg tablet Take 1 tablet by mouth once daily. Disp: 30 tablet Rfl: 03/06/2018 loratadine (CLARITIN) 10 mg tablet Take 1 tablet by mouth once daily. Disp: 30 tablet Rfl: 11 03/06/2018 nystatin (NYSTOP) powder Apply 1 application to affected area three times daily. intertrigo Disp: 60 g Rfl: 3 03/07/2018 Blood-Glucose Meter monitoring kit Glucose Meter of Choice - Kit - Dx: Other DM Code Impaired fasting glucose Disp: 1 Each Rfl: 0 blood sugar diagnostic (BLOOD GLUCOSE TEST) test strip Test blood sugar(s) 1 times daily. Dx: Other DM Code IFG Insulin: No Disp: 50 Strip Rfl: 11 Lancets lancets Test blood sugar(s) 1 times daily. Dx: Other DM Code IFG Insulin: No Disp: 50 Each Rfl: 11 ondansetron (ZOFRAN, HYDROCHLORIDE,) 4 mg tablet Take 1 tablet by mouth three times daily as needed (15-30 minutes before eating). Disp: 60 tablet Rfl: 1 Unknown at Unknown time EPINEPHrine (EPIPEN) 0.3 mg/0.3 mL PnIj Use as needed for bee sting Disp: 2 Each Rfl: 1 Unknown at Unknown time Protein (ENSURE HIGH PROTEIN) powd Take 1 Dose by mouth twice daily. Disp: 3 Can Rfl: 3 Lancing Device misc Test blood sugar(s) 1 times daily. Dx: Other DM Code IFG Insulin: No Disp: 1 Each Rfl: 0 buPROPion SR (ZYBAN SR; WELLBUTRIN SR) 150 mg 12 hr tablet Take 1 tablet by mouth as directed. Take 1 tablet PO daily x 2 weeks then increase to 1 tablet PO twice a day Disp: 60 tablet Rfl: 3 triamcinolone acetonide (KENALOG) 0.1 % ointment Apply 1 application to affected area twice daily. Disp: 1 Tube Rfl: 1 Unknown at Unknown time albuterol HFA (PROAIR HFA) 90 mcg/actuation inhaler Inhale 2 Puffs as instructed four times daily. Disp: 1 Each Rfl: 11 Past Week at Unknown time Diclofenac Sodium (VOLTAREN) 1 % gel Apply 1 g to affected area four times daily as needed. Disp: 1 Tube Rfl: 3 Past Week at Unknown time Current hospital medications: NaCl 0.9% iv infusion 125 mL/hr INTRAVENOUS CONTINUOUS iv contrast (radiology procedure) INTRAVENOUS DIRECTED PRN albuterol HFA 90 mcg/actuation 2 Puff (PROVENTIL HFA, VENTOLIN HFA) 2 Puff INHALATION QID montelukast 10 mg tab(s) (SINGULAIR) 10 mg ORAL AT BEDTIME pantoprazole DR 40 mg tab(s) (PROTONIX) 40 mg ORAL DAILY (6 AM) levothyroxine 300 mcg (SYNTHROID) 300 mcg ORAL BEFORE BREAKFAST DAILY ondansetron 4 mg tab(s) (ZOFRAN) 4 mg ORAL q 6 H PRN ondansetron (PF) 4 mg injection (ZOFRAN) 4 mg INTRAVENOUS q 6 H PRN magnesium hydroxide 400 mg/5 mL 30 mL (MOM) 30 mL ORAL DAILY PRN docusate sodium 100 mg cap(s) (COLACE) 100 mg ORAL BID PRN acetaminophen 650 mg tab(s) (TYLENOL) 650 mg ORAL q 6 H PRN morphine 1-2 mg injection 1-2 mg INTRAVENOUS q 4 H PRN vancomycin 1.25 g in D5W 250 mL (VANCOCIN) 1.25 g INTRAVENOUS q 12 HR lisinopril 10 mg tab(s) (ZESTRIL, PRINIVIL) 10 mg ORAL DAILY hydroCHLOROthiazide 12.5 mg tab(s) (HYDRODIURIL, ESIDRIX) 12.5 mg ORAL DAILY ceFAZolin 500 mg in D5W 100 mL (ANCEF) 500 mg INTRAVENOUS q 8 H heparin 5,000 Units injection 5,000 Units SUBCUTANEOUS q 8 H pill splitter (patient-specific) 1 Each Miscell. (Med.Supl.;Non- Drugs) PRN pill splitter (patient-specific) 1 Each Miscell. (Med.Supl.;Non- Drugs) PRN Allergies As of Date: 03/08/2018 Allergen Noted Reaction ASA [ASPIRIN] 01/20/2012 Other: See Comments BEES 07/21/2005 Swelling BENADRYL [DIPHENHYDRAMINE HCL] 07/21/2005 Hives CODEINE 07/21/2005 Mental Status Change FLAGYL [METRONIDAZOLE HCL] 03/08/2018 Other: See Comments IBUPROFEN 07/21/2005 GI Upset PENICILLINS 05/10/2015 GI Upset Fully Assessed 03/08/2018 COMPLETE REVIEW OF SYSTEMS: GENERAL: Fevers and chills last week, none now. She says that she gains weight even when she doesn't eat much. Fatigued. HEENT: Negative for frequent or significant headaches, No changes in hearing or vision, no nose bleeds or other nasal problems RESPIRATORY: No cough or dyspnea. 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 No rashes or lesions., has mild ertyehma of lower abdomen- from umbilicus to mons pubis. Large pannus. IN midline of the lower abdomen there is a wound that appears to be about 6 x 1.5cm and appears macerated. No purulent drainage at this site. Has abdominal wall edema with some seepage of clear fluid. Erythema on inner thighs with satellite lesions suggestive of fungal infection EYES: PERRLA, Sclera anicteric, conjunctiva clear OROPHARYNX: Poor dentition. No thrush LUNGS: Lungs clear to auscultation, Good diaphragmatic excursion CARDIAC: Normal S1 and S2; no rubs, murmurs, or gallops ABDOMEN: Abdomen soft, non-tender, BS normal, No masses or organomegaly and see above regarding appearance of skin EXTREMITIES: Mild lymphedema of both lower extremities LYMPH: No cervical adenopathy BP 127/77 Pulse 85 Temp (Src) 97.9 (Temporal Artery) Resp 18 Ht 5' 1 (1.55m) Wt 512 lb 4.8 oz (232.4kg) SpO2 99% BMI 96.85 kg/(m2). DATA: Diagnostic tests reviewed for today's visit: Component Latest Ref Rng AND Units 03/08/2018 03/08/2018 03/08/2018 03/08/2018 03/08/2018 03/09/2018 9:45 AM 1:50 PM 7:50 PM 8:40 PM 9:33 PM WBC 3.98 - 10.04 thou/cmm 14.72 (H) 11.63 (H) 10.56 (H) RBC 3.93 - 5.22 mil/cmm 3.69 (L) 3.67 (L) 3.68 (L) HGB 11.2 - 15.7 g/dL 10.9 (L) 10.9 (L) 10.9 (L) Hematocrit 34.1 - 44.9 % 34.5 34.5 35.1 MCV 79.4 - 94.8 fl 93.5 94.0 95.4 (H) MCH 25.6 - 32.2 pg 29.5 29.7 29.6 MCHC 31.6 - 34.8 % 31.6 31.6 31.1 (L) RDW 11.7 - 14.4 % 14.3 14.0 14.1 RDW-SD 36.4 - 46.3 fl 48.6 (H) 47.7 (H) 48.9 (H) Platelet Count 182 - 369 thou/cmm 200 222 215 MPV 9.4 - 12.3 fl 11.2 10.3 10.4 Seg Neutrophil % 77.6 66.8 Immature Grans % 0.50 0.40 Lymphocyte % 15.3 25.6 Monocyte % 4.3 4.8 Eosinophil % 2.0 2.1 Basophil % 0.3 0.3 Abs. Neut(Anc) 1.56 - 6.13 thou/cmm 11.42 (H) 7.77 (H) Immature Grans # 0.00 - 0.05 thou/cmm 0.07 (H) 0.05 Abs. Lymph 1.18 - 3.74 thou/cmm 2.25 2.98 Abs. Hill 0.27 - 0.70 thou/cmm 0.63 0.56 Abs. Eosin 0.00 - 0.31 thou/cmm 0.29 0.24 Abs. 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 Presented with sepsis and leukocytosis which is better with vanco and low dose ance. This would suggest that staph/strep involved due to improvement with these drugs but would expect with panniculitis that there are also gram negatives and anaerobes.Also expect anthony to be involved given the appearance of fungal dermatitis May need longer course of antibiotics, possibly 4-6 weeks to clear this. Treatment and recovery is complicated by her morbid obesity and the edema of the abdominal wall that is present as this will greatly inhibit her healing of the wound that is there Additionally her morbid obesity complicates antibiotic dosing Has listed penicillin allergy but this is GI intolerance with oral penicillins- I think will be ok to give IV sozyn for now PLAN: 1) change vanco to linezolid- with her weight,we would have to give her dangerously high doses of vanc to reach therapeutic level 2) Change cefazolin to zosyn- will have broader gram negative coverage and also anaerobic coverage 3) Add fluconazole 4) Once panniculitis is improving, may want to perform panniculectomy at some point SIGNATURE: Candido Benjamin III, MD PATIENT NAME: Rosalie Horne DATE: March 09, 2018 TIME: 12:04 PM PAGER: [phone] CONSULT PROG Observed: 03/09/2018 Status: COMPLETED Source: [place] 10:12 AM CLINIC OTHER CAMPUS REPOSITORY HNO ID: [id number] Author: Gely Singer) Wesley Service: Wound Care Team Author Type: Nurse Practitioner Type: Consult Progress Note Filed: 03/09/2018 10:15 AM Note Text: WOUND CARE NURSE CONSULT NOTE SERVICE DATE: 03/09/2018 SERVICE TIME: 929 REASON FOR VISIT: Wound TIME SPENT (minutes): 30 PATIENT NAME: Rosalie Horne Reason for Assessment: Abdominal wall cellulitis Assessment: Wound #1 Abdomen - midline is a Full Thickness Surgical Wound and has received a status of Not Healed. Initial wound encounter measurements are 6cm length x 1cm width x 0.2cm depth, with an area of 6 sq cm and a volume of 1.2 cubic cm. No tunneling has been noted. No undermining has been noted. There is a moderate amount of sero-sanguineous drainage noted which has a mild odor. The patient reports a wound pain of level 5/10. The wound margin is flat and intact. Wound bed has 76-100% bright red, pink granulation. The periwound skin texture is normal. The periwound skin moisture is normal. The periwound skin exhibited: Erythema. The temperature of the periwound skin is Warm. Periwound skin presents with s/s of infection. Confirmation Description AND Treatment Plan is: Signs AND Symptoms Present, Systemic Antibiotics Prescribed. General Notes: old midline incision opened in areas. Patient states incision never really healed. Wound #2 Abdomen pannus is an Eschar covered Dermatologic/Rash and has received a status of Not Healed. There was no drainage noted. Wound bed has 76-100% epithelialization. The periwound skin texture is normal. The periwound skin exhibited: Moist, Erythema. The temperature of the periwound skin is Warm. Periwound skin presents with s/s of infection. Confirmation Description AND Treatment Plan is: Signs AND Symptoms Present, Systemic Antibiotics Prescribed. General Notes:abdominal pannus on left side excoriated with rash. Wound #3 Left, Anterior Abdomen is a chronic Partial Thickness Dermatologic/Rash and has received a status of Not Healed. Initial wound encounter measurements are 1cm length x 1cm width x 0.1cm depth, with an area of 1 sq cm and a volume of 0.1 cubic cm. No tunneling has been noted. No undermining has been noted. There is a moderate amount of serous drainage noted which has no odor. The patient reports a wound pain of level 0/10. The wound margin is flat and intact. Wound bed has 76-100% pink granulation. The periwound skin texture is normal. The periwound skin moisture is normal. The periwound skin color is normal. The temperature of the periwound skin is WNL. General Notes:small superficial wound that drains a lot of serous fluid, according to patient. Wound Evaluation: Newly Identified Goals: Heal wound Recommendations: Mesalt daily to midline abodominal wound cover with gauze dressing. Coveraderm daily to left anterior abdomen wall, and Interdry to abdominal pannus. Currently on bariatric bed. Denies wounds to heels or buttocks. Documentation from Wound Expert can be found in scanned documents. SIGNATURE: HAMMAD Yo, CWOCN PATIENT NAME: Rosalie Horne DATE: March 09, 2018 TIME: 10:12 AM CONTACT#: [id number] CASE MANAGEM Observed: 03/09/2018 Status: COMPLETED Source: [place] 7:38 AM CLINIC OTHER CAMPUS REPOSITORY HNO ID: [id number] Author: Cathy Adame) ARDIANNA Crouch Service: Care Management Author Type: Registered Nurse Type: Care Mgt Progress Note Filed: 03/09/2018 7:39 AM Note Text: CARE MANAGEMENT PROGRESS NOTE SERVICE DATE: 03/09/2018 SERVICE TIME: 737 LOS: 1 day Needs Prior to Discharge: To Be Determined Chart reviewed. Patient admitted with umbilical hernia, abdominal wall cellulitis/panniculitis. Per General Surgery--no surgical intervention planned as hernia is reducible and patient is poor surgical candidate. Patient started on IV Cefazolin, IV Vanco; ID consult pending, Wound Care consult pending. Continue to follow for discharge planning needs. SIGNATURE: Cathy Crouch RN PATIENT NAME: Rosalie Horne DATE: March 09, 2018 TIME: 7:38 AM PAGER/CONTACT #: [phone] GLUCOSE METER Collected: 03/09/2018 Status: F Source: [facility] 6:54 AM HEALTH SYSTEM REPOSITORY TYPE CODE TESTS RESULT OUT OF REFERENCE UNITS RANGE LAB GLUBL(LOINC 70-99 mg/dL ) Glucose Meter 93 Result Comment: RN NOTIFIED Performed By: #### GLMET #### [place] [address] PROGRESS Observed: 03/09/2018 Status: COMPLETED Source: [place] 6:15 AM CLINIC OTHER CAMPUS REPOSITORY HNO ID: [id number] Author: Diana Hyman Service: General Surgery Author Type: Resident Type: Progress Notes Filed: 03/09/2018 6:55 AM Note Text: Attestation signed by Cole Calle at 03/09/2018 10:41 AM As above. Tolerating PO without N/V. No surgical issues. Risk of elective repair of hernia outweigh benefits. Discussed weight loss. Dietary consult. Will sign off. I saw and evaluated the patient. I reviewed the resident's note and agree. Cole Calle MD, [facility], [facility] Emergency General Surgery Service Pager: For questions or concerns Mon-Fri 6a-5p please page [phone]. After 5pm and on Weekends and Holidays, please page [phone] if in ICU or [phone] if on RNF. General Surgery Progress Note SERVICE DATE: 03/09/2018 SUBJECTIVE: No acute issues. reprots abdominal spasm o/n, resolved currently. +flatus, -BM. Tearful this am. Reports chronic issues with pain/decreased mobility. Tolerating diet DIET HEART HEALTHY OBJECTIVE: Vitals: Temp (24hrs), Av.7 ?C (98 ?F), Min:36.4 ?C (97.5 ?F), Max:37 ?C (98.6 ?F) BP 136/87 Pulse 85 Temp 36.4 ?C (97.5 ?F) (Oral) Resp 18 Ht 154.9 cm (5' 1) Wt (!) 232.4 kg (512 lb 4.8 oz) SpO2 100% BMI 96.80 kg/m? O2 Therapy: Room Air IANDO: Date 03/08/18699 - 03/09/1865803/09/18699 - 03/10/18 0659 Shift 5239-7064 9562-5555 5584-7407 24 Hour Total 6557-8012 3900-4285 9812-8187 24 Hour Total I N T A K E PO 360 360 PO 360 360 IV 6957 255 2875 NS 0.9% 1000 1000 Vancomycin IV 200 200 Cefazolin IV 100 100 Shift Total 4603 477 8583 O U T P U T Urine 113 671 5448 Void (ml) 919 391 2882 Shift Total 920 297 0311 Weight (kg) 233.1 232.4 232.4 232.4 232.4 232.4 232.4 232.4 MEDICATIONS Current Facility-Administered Medications: NaCl 0.9% iv infusion 125 mL/hr INTRAVENOUS CONTINUOUS iv contrast (radiology procedure) INTRAVENOUS DIRECTED PRN albuterol HFA 90 mcg/actuation 2 Puff (PROVENTIL HFA, VENTOLIN HFA) 2 Puff INHALATION QID montelukast 10 mg tab(s) (SINGULAIR) 10 mg ORAL AT BEDTIME pantoprazole DR 40 mg tab(s) (PROTONIX) 40 mg ORAL DAILY (6 AM) levothyroxine 300 mcg (SYNTHROID) 300 mcg ORAL BEFORE BREAKFAST DAILY ondansetron 4 mg tab(s) (ZOFRAN) 4 mg ORAL q 6 H PRN Or ondansetron (PF) 4 mg injection (ZOFRAN) 4 mg INTRAVENOUS q 6 H PRN magnesium hydroxide 400 mg/5 mL 30 mL (MOM) 30 mL ORAL DAILY PRN docusate sodium 100 mg cap(s) (COLACE) 100 mg ORAL BID PRN acetaminophen 650 mg tab(s) (TYLENOL) 650 mg ORAL q 6 H PRN morphine 1-2 mg injection 1-2 mg INTRAVENOUS q 4 H PRN vancomycin 1.25 g in D5W 250 mL (VANCOCIN) 1.25 g INTRAVENOUS q 12 HR lisinopril 10 mg tab(s) (ZESTRIL, PRINIVIL) 10 mg ORAL DAILY hydroCHLOROthiazide 12.5 mg tab(s) (HYDRODIURIL, ESIDRIX) 12.5 mg ORAL DAILY ceFAZolin 500 mg in D5W 100 mL (ANCEF) 500 mg INTRAVENOUS q 8 H heparin 5,000 Units injection 5,000 Units SUBCUTANEOUS q 8 H pill splitter (patient-specific) 1 Each Miscell. (Med.Supl.;Non- Drugs) PRN pill splitter (patient-specific) 1 Each Miscell. (Med.Supl.;Non- Drugs) PRN Labs: Recent Labs 03/09/18 0304 03/08/18 2040 03/08/18 0945 NA 137 137 -- K 3.6 3.5 -- CHLOR 104 103 -- CO2 26 29 -- BUN 6* 7 -- CREAT 0.86 0.90 -- GLUC 112* 83 -- ANION 11 9 -- CA 8.5 8.7 -- WBC 10.56* 11.63* 14.72* HB 10.9* 10.9* 10.9* HCT 35.1 34.5 34.5 PLT 215 222 200 LACT -- -- 1.4 Exam: GENERAL: No distress, Alert NEURO: AANDOx3, CN II-XII grossly intact HEENT: normocephalic, atraumatic LUNGS: Unlabored breathing CARDIAC: Regular rate and rhythm as above ABDOMEN: Soft, obese, minimally-tender, non-distended, indurated/erythematous pannis, purulent discharge in crevice of prior scar. EXTREMITIES: COWAN, No deformities, No edema SKIN: Skin color, texture, turgor normal, No rashes or lesions ASSESSMENT AND PLAN: Active Hospital Problems Diagnosis Date Noted - Abdominal wall cellulitis 03/08/2018 42 year old female umbilical hernia/panniculitis -hernia reducible -tolerating po, continued bowel function -medical management per primary -poor surgical candidate SIGNATURE: Diana Hyman MD PATIENT NAME: Rosalie Horne DATE: March 09, 2018 TIME: 6:15 AM Pager: [phone] Collected: 03/09/2018 Status: F Source: [facility] 3:04 AM HEALTH SYSTEM REPOSITORY TYPE CODE TESTS RESULT OUT OF REFERENCE UNITS RANGE LAB WBC(LOINC) 3.98-10.04 thou/cmm High WBC 10.56 LAB RBC(LOINC) 3.93-5.22 mil/cmm Low RBC 3.68 LAB HGB(LOINC) 11.2-15.7 g/dL Low Hgb 10.9 LAB HCT(LOINC) 34.1-44.9 % Hct 35.1 LAB MCV(LOINC) 79.4-94.8 fl High MCV 95.4 LAB MCH(LOINC) 25.6-32.2 pg MCH 29.6 LAB MCHC(LOINC) 31.6-34.8 % Low MCHC 31.1 LAB RDW(LOINC) 11.7-14.4 % RDW 14.1 LAB RDWSD(LOINC 36.4-46.3 fl ) High RDW SD 48.9 LAB PLT(LOINC) 182-369 thou/cmm Platelet 215 LAB MPV(LOINC) 9.4-12.3 fl MPV 10.4 Performed By: #### CBC1 #### [address] [address] BASIC PANEL Collected: 03/09/2018 Status: F Source: [facility] 3:04 AM HEALTH SYSTEM REPOSITORY TYPE CODE TESTS RESULT OUT OF REFERENCE UNITS RANGE LAB NA(LOINC) 136-145 mEq/L Sodium Blood 137 LAB K(LOINC) 3.5-5.1 mEq/L Potassium Blood 3.6 LAB CL(LOINC) 98-107 mEq/L Chloride Blood 104 LAB CO2(LOINC) 21-32 mEq/L CO2 Blood 26 LAB GLU(LOINC) 70-99 mg/dL Glucose High Blood 112 LAB BUN(LOINC) 7-18 mg/dL Low BUN Blood 6 LAB CREA(LOINC 0.51-0.95 mg/dL ) Creatinine Blood 0.86 LAB CA(LOINC) 8.5-10.1 mg/dL Calcium Blood 8.5 LAB ANGAP(LOIN 8-16 C) Anion Gap 11 Performed By: #### P8 #### [facility] [address] [place] [address] MDRD GFR Collected: 03/09/2018 Status: F Source: [facility] 3:04 AM HEALTH SYSTEM REPOSITORY TYPE CODE TESTS RESULT OUT OF RANGE REFERENCE UNITS LAB GFRFN(LOINC >60mL/min/1.73m ) 2 eGFR >60 Result Comment: If the patient is , multiply the result by 1.210. Performed By: #### GFR #### [facility] [address] [place] [address] GLUCOSE METER Collected: 03/08/2018 Status: F Source: [facility] 9:33 PM HEALTH SYSTEM REPOSITORY TYPE CODE TESTS RESULT OUT OF REFERENCE UNITS RANGE LAB GLUBL(LOINC 70-99 mg/dL ) Glucose Meter 89 Result Comment: RN NOTIFIED Performed By: #### GLMET #### [place] [address] HEMOGRAM/DIFF Collected: 03/08/2018 Status: F Source: [facility] 8:40 PM HEALTH SYSTEM REPOSITORY TYPE CODE TESTS RESULT OUT OF REFERENCE UNITS RANGE LAB WBC(LOINC) 3.98-10.04 thou/cmm WBC High 11.63 LAB RBC(LOINC) 3.93-5.22 mil/cmm Low RBC 3.67 LAB HGB(LOINC) 11.2-15.7 g/dL Low Hgb 10.9 LAB HCT(LOINC) 34.1-44.9 % Hct 34.5 LAB MCV(LOINC) 79.4-94.8 fl MCV 94.0 LAB MCH(LOINC) 25.6-32.2 pg MCH 29.7 LAB MCHC(LOINC 31.6-34.8 % ) MCHC 31.6 LAB RDW(LOINC) 11.7-14.4 % RDW 14.0 LAB RDWSD(LOIN 36.4-46.3 fl C) RDW SD High 47.7 LAB PLT(LOINC) 182-369 thou/cmm Platelet 222 LAB MPV(LOINC) 9.4-12.3 fl MPV 10.3 LAB SEG(LOINC) % Seg Neutrophil 66.8 LAB IGRE(LOINC % ) Immature Grans 0.40 LAB LYMPH(LOIN % C) Lymphocyte 25.6 LAB MNO(LOINC) % Monocyte 4.8 LAB EOSIN(LOIN % C) Eosinophil 2.1 LAB BASO(LOINC % ) Basophil 0.3 LAB SEGN(LOINC 1.56-6.13 thou/cmm ) Abs. High Neut (ANC) 7.77 LAB IGAB(LOINC 0.00-0.05 thou/cmm ) Abs Immature Grans 0.05 LAB LYMN(LOINC 1.18-3.74 thou/cmm ) Abs. Lymph 2.98 LAB MONON(LOIN 0.27-0.70 thou/cmm C) Abs. Hill 0.56 LAB EOSN(LOINC 0.00-0.31 thou/cmm ) Abs. Eosin 0.24 LAB BASON(LOIN 0.01-0.08 thou/cmm C) Abs. Baso 0.03 Performed By: #### CBCD1 #### [place] [address] BASIC PANEL Collected: 03/08/2018 Status: F Source: [facility] 8:40 PM HEALTH SYSTEM REPOSITORY TYPE CODE TESTS RESULT OUT OF REFERENCE UNITS RANGE LAB NA(LOINC) 136-145 mEq/L Sodium Blood 137 LAB K(LOINC) 3.5-5.1 mEq/L Potassium Blood 3.5 LAB CL(LOINC) 98-107 mEq/L Chloride Blood 103 LAB CO2(LOINC) 21-32 mEq/L CO2 Blood 29 LAB GLU(LOINC) 70-99 mg/dL Glucose Blood 83 LAB BUN(LOINC) 7-18 mg/dL BUN Blood 7 LAB CREA(LOINC 0.51-0.95 mg/dL ) Creatinine Blood 0.90 LAB CA(LOINC) 8.5-10.1 mg/dL Calcium Blood 8.7 LAB ANGAP(LOIN 8-16 C) Anion Gap 9 Performed By: #### P8 #### [facility] [address] [place], [place] [address] MDRD GFR Collected: 03/08/2018 Status: F Source: [facility] 8:40 PM HEALTH SYSTEM REPOSITORY TYPE CODE TESTS RESULT OUT OF RANGE REFERENCE UNITS LAB GFRFN(LOINC >60mL/min/1.73m ) 2 eGFR >60 Result Comment: If the patient is , multiply the result by 1.210. Performed By: #### GFR #### [facility] [address] [place] [address] GLUCOSE METER Collected: 03/08/2018 Status: F Source: [facility] 7:50 PM HEALTH SYSTEM REPOSITORY TYPE CODE TESTS RESULT OUT OF REFERENCE UNITS RANGE LAB GLUBL(LOINC 70-99 mg/dL ) Glucose Meter 81 Result Comment: RN NOTIFIED Performed By: #### GLMET #### [facility] [address] [place], [place] [address] CONSULT Observed: 03/08/2018 Status: COMPLETED Source: [place] 4:42 PM [facility] OTHER CAMPUS REPOSITORY O ID: [id number] Author: Yvonne Zendejas Service: General Surgery Author Type: Resident Type: Consults Filed: 03/08/2018 5:16 PM Note Text: Attestation signed by Cole Calle at 03/08/2018 5:31 PM Hernia defect 4 cm and is reduced. 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 Will follow. I saw and evaluated the patient. I reviewed the resident's note and agree. Cole Calle MD, [facility], [facility] CONSULT: EGS SERVICE SERVICE DATE: 03/08/2018 SERVICE TIME: 4:43 PM REASON FOR CONSULT: Umbilical hernia REQUESTING PHYSICIAN: ED PRIMARY CARE PHYSICIAN: Franco Bardales, Subjective Ms. Horne is a 42 year old female who presents for abdominal pain. She reports that at the of her first child 10 years ago she developed an umbilical hernia, which grew larger at the of her twins 10 years ago. Also at that time she developed a chronic nonhealing wound at her scar which has been present since. She reports ~12-18 hours of sudden onset crampy pain at her hernia site. Initially reported she was having both BM and flatus, but then says her flatus amount is down and hasn't had any for a while. Minimal nausea, no vomiting. Patient is minimally ambulatory and gets SOB readily at home 2/2 her weight. Was initially worked up at [facility] where she had a CT showing an umbilical hernia containing unobstructed bowel. She was transferred here for level of care, however no imaging was able to be sent with her. As a result we tried to re-CT her however her weight of [address] scanner limits. The hernia was initially partially reducible, but Dr Calle personally examined the patient and was able to reduce the hernia. FUNCTIONAL STATUS: Limited most or all of the time (uses scooter, mobility device) PAST MEDICAL HISTORY Diagnosis Date - Adjustment disorder with depressed mood - Impaired fasting glucose 6.0% - Migraines - Morbid obesity (HCC) - Unspecified asthma(493.90) - Unspecified essential hypertension - Unspecified hypothyroidism 06/2003 PAST SURGICAL HISTORY Procedure Laterality Date - DELIVERY ONLY 02/20/1999 AND 05/03/1996 AND 2007 - CHOLECYSTECTOMY - EGD W/O [facility] SPECIMEN W/BX 04/11/13 mild gastritis - MIDLINE CATHETER 01/31/2016 - TONSILLECTOMY HX FAMILY HISTORY Problem Relation Age of Onset - Breast Cancer Maternal Grandmother - Breast Cancer Paternal Aunt - Hypertension both grandmothers and both sides of the family/aunts and uncles - Heart Father - Diabetes Father was in a coma x 1 month due to diabetes per patient - Arthritis Mother - Asthma Mother - Thyroid Mother Social History Substance Use Topics - Smoking status: Former Smoker Quit date: 01/06/2007 - Smokeless tobacco: Never Used Comment: SOCIALLY ONLY OR WHEN STRESSED - Alcohol use Yes Comment: rare (Not in a hospital admission) Current hospital medications: NaCl 0.9% iv infusion 125 mL/hr INTRAVENOUS CONTINUOUS iv contrast (radiology procedure) INTRAVENOUS DIRECTED PRN Allergies As of Date: 03/08/2018 Allergen Noted Reaction ASA [ASPIRIN] 01/20/2012 Other: See Comments BEES 07/21/2005 Swelling BENADRYL [DIPHENHYDRAMINE HCL] 07/21/2005 Hives CODEINE 07/21/2005 Mental Status Change FLAGYL [METRONIDAZOLE HCL] 03/08/2018 Other: See Comments IBUPROFEN 07/21/2005 GI Upset PENICILLINS 05/10/2015 GI Upset Fully Assessed 03/08/2018 COMPLETE REVIEW OF SYSTEMS: See HPI Objective PHYSICAL EXAM: Physical Exam Performed: NAD NL resp RRR Abdomen extremely obese, pannus extends to knees. Mass palpable 4 inches superior to umbilicus (which is inferiorly displaced due to the pannus), feels partially reducible. No skin changes overlying the hernia. It is quite tender, but she tolerates reduction OK. After reduction a wide defect is palpable with clean fascial edges. The pannus inferior to the umbilicus is indurated, erythematous, and there are two lobes beneath the umbilicus that come together in the midline around her old scar. Her scar is open and macerated at two points, and the superior/anteriormost location is purulent. BP 151/77 Pulse 87 Temp 98.6 Resp 18 Ht 5' 1 (1.55m) Wt 514 lb (233.1kg) SpO2 97% BMI 97.17 kg/(m2). DATA: Diagnostic tests reviewed for today's visit: CBC, Coags, BMP, Mg, Phos Recent Labs 03/08/18 0945 WBC 14.72* HB 10.9* HCT 34.5 PLT 200 Liver Function, Amylase, AND Lipase Recent Labs 03/08/[address] from OSH: images not available, read: extremely limited examiation, majority of anterior abdominal subQ tissue, wall and anterior peritoneum are not included in field of view. Portion of a left anterior inferior abdominal wall hernia with an opening of 4.5cm containing small bowel. No overt colonic or small bowel obstruction, ascites, or pneumoperitoneum. Impression/Recommendations 42 year old F w/ umbilical hernia/panniculitis -discussed with Dr Calle -hernia reduced in ED -medical admit for IV treatment of panniculitis -very poor operative candidate -will follow Emergency General Surgery Service Pager: For questions or concerns Mon-Fri 6a-5p please page [phone]. After 5pm and on Weekends and Holidays, please page [phone] if in ICU or [phone] if on RNF. SIGNATURE: Yvonne Zendejas MD PATIENT NAME: Rosalie Horne DATE: March 08, 2018 TIME: 4:42 PM PAGER: [phone] PLAN OF CARE Observed: 03/08/2018 Status: COMPLETED Source: [place] 3:42 PM CLINIC OTHER CAMPUS REPOSITORY HNO ID: [id number] Author: Dwight Baires (Research [employer]er [employer]) Service: (none) Author Type: Aircraft Designer Type: Plan of Care Filed: 03/08/2018 3:45 PM Note Text: MEDICATION HISTORY Patient Name:Felton Horne : 1975 Source of history:Patient: Reliability of source: Appears reliable, clearly identified: Medication name, Medication dose, Medication route and Medication frequency and Pharmacy records: [facility], [place] [phone] Medication Nonadherence Identified: Cost The above information represents the best possible medication history: Yes Additional comments: Pt. states she has not been taking her meds because she has been sick. Started back on meds recently but some are too costly. Allergies: ALLERGIES Allergen Reactions - Asa [Aspirin] Other: See Comments Upset stomach - Bees Swelling - Benadryl [Diphenhyd* Hives - Codeine Mental Status Change HALLUCINATIONS - Flagyl [Metronidazo* Other: See Comments Per pt, topical flagyl irritated her incision and po flagyl gave her GI upset. - Ibuprofen GI Upset - Penicillins GI Upset Preferred Pharmacy: [facility], [place] [phone] Current [facility] Medications: Prior to Admission medications as of 03/08/18 1541 Medication Sig Last Dose Taking lactose-reduced food (BOOST ORAL) Take 1 Can by mouth twice daily. 03/07/2018 Yes naproxen sodium (ALEVE ORAL) Take by mouth as directed. 03/03/2018 Yes levothyroxine (SYNTHROID) 300 mcg tablet Take 1 tablet by mouth once daily. Take with 200 mcg tablet to total 225 mg a day 03/06/2018 Yes metroNIDAZOLE 0.75 % lotn Apply 1 application to affected area once daily. To area of open wound on abdomen Yes omeprazole (PRILOSEC) 20 mg capsule Take 1 capsule by mouth once daily. 03/06/2018 Yes mupirocin (BACTROBAN) 2 % ointment Apply 1 application to affected area twice daily. Yes lisinopril-hydrochlorothiazide (PRINZIDE,ZESTORETIC) 10-12.5 mg per tablet Take 1 tablet by mouth once daily. 03/06/2018 Yes montelukast (SINGULAIR) 10 mg tablet Take 1 tablet by mouth once daily. 03/06/2018 Yes loratadine (CLARITIN) 10 mg tablet Take 1 tablet by mouth once daily. 03/06/2018 Yes nystatin (NYSTOP) powder Apply 1 application to affected area three times daily. intertrigo 03/07/2018 Yes Blood-Glucose Meter monitoring kit Glucose Meter of Choice - Kit - Dx: Other DM Code Impaired fasting glucose Yes blood sugar diagnostic (BLOOD GLUCOSE TEST) test strip Test blood sugar(s) 1 times daily. Dx: Other DM Code IFG Insulin: No Yes Lancets lancets Test blood sugar(s) 1 times daily. Dx: Other DM Code IFG Insulin: No Yes ondansetron (ZOFRAN, HYDROCHLORIDE,) 4 mg tablet Take 1 tablet by mouth three times daily as needed (15-30 minutes before eating). Yes EPINEPHrine (EPIPEN) 0.3 mg/0.3 mL PnIj Use as needed for bee sting Yes Protein (ENSURE HIGH PROTEIN) powd Take 1 Dose by mouth twice daily. metroNIDAZOLE 0.75 % cream Insert 1 applicator-full vaginally at night for 5-7days. Lancing Device misc Test blood sugar(s) 1 times daily. Dx: Other DM Code IFG Insulin: No buPROPion SR (ZYBAN SR; WELLBUTRIN SR) 150 mg 12 hr tablet Take 1 tablet by mouth as directed. Take 1 tablet PO daily x 2 weeks then increase to 1 tablet PO twice a day triamcinolone acetonide (KENALOG) 0.1 % ointment Apply 1 application to affected area twice daily. albuterol HFA (PROAIR HFA) 90 mcg/actuation inhaler Inhale 2 Puffs as instructed four times daily. multivitamin (DAILY MULTIPLE) tablet Take 1 tablet by mouth once daily. Diclofenac Sodium (VOLTAREN) 1 % gel Apply 1 g to affected area four times daily as needed. naproxen (NAPROSYN) 500 mg ORAL tablet Take 1 tablet by mouth twice daily as needed. FOR PAIN. TAKE WITH FOOD. acetaminophen(TYLENOL ARTHRITIS 650 MG TAB) prn Dwight Baires ([employer]) WK pager [phone] March 08, 2018 3:42 PM ED NOTE Observed: 03/08/2018 Status: COMPLETED Source: [place] 3:25 PM [facility] REPOSITORY HNO ID: [id number] Author: Betsy Adame) ADRIANNA Alfaro Service: Emergency Medicine Author Type: Registered Nurse Type: ED Notes Filed: 03/08/2018 3:25 PM Note Text: Pt ambulated to restroom with assist. ED NOTE Observed: 03/08/2018 Status: COMPLETED Source: [place] 3:25 PM [facility] REPOSITORY HNO ID: [id number] Author: Betsy Adame) ADRIANNA Alfaro Service: Emergency Medicine Author Type: Registered Nurse Type: ED Notes Filed: 03/08/2018 3:26 PM Note Text: Patient returned to the Emergency Department. URINE HCG, QUAL. Collected: 03/08/2018 Status: F Source: [facility] 1:50 PM HEALTH SYSTEM REPOSITORY TYPE CODE TESTS RESULT OUT OF REFERENCE UNITS RANGE LAB URHCG(LOIN Negative C) HCG, Qual. Negative Urine LAB SPGR(LOINC 1.005-1.030 ) Specific 1.012 [place], Ur Performed By: #### HCGUR #### [place] [address] ED NOTE Observed: 03/08/2018 Status: COMPLETED Source: [place] 1:49 PM [facility] REPOSITORY HNO ID: [id number] Author: Angela Adame) ADRIANNA Kimble Service: Emergency Medicine Author Type: Registered Nurse Type: ED Notes Filed: 03/08/2018 1:49 PM Note Text: Clean catch urine specimen obtained and sent. HISTORY PHYSICAL Observed: 03/08/2018 Status: COMPLETED Source: [place] 12:42 PM CLINIC OTHER CAMPUS REPOSITORY HNO ID: [id number] Author: Aj You MD Service: Hospital Medicine Author Type: Physician Type: HANDP Filed: 03/08/2018 1:49 PM Note Text: DEPARTMENT OF HOSPITAL MEDICINE HISTORY AND PHYSICAL EXAM SERVICE DATE: 03/08/2018 Primary Care Physician: Franco Bardales DO Subjective CHIEF COMPLAINT: Abdominal wound infection HPI: 42 year old CF with PMHx of chronic pannus wound from prior , morbid obesity, asthma, migraines, HTN who was seen as a new admission due to abdominal wound infection, she was sent from [place] for possible incarcerated hernia. Per patient she went to [place] earlier today for 1 hour of severe periumbical pain, There they did basic labs, and were obtain to obtain a CT non-contrast which was noted to be extremely limited, with the majority of the anterior abdominal subcutaneous tissue, wall, and anterior peritoneal not included in the field of view. Pt was seen by surgery at our ER for possible incarcerated hernia, were able to reduce it, Pt was seemed at the ER, denies fever but have chills, have mild lower abdominal pain; have mild nausea but no vomiting; denies chest pain, SOB or dysuria ? PAST MEDICAL HISTORY Diagnosis Date - Adjustment disorder with depressed mood - Impaired fasting glucose 6.0% - Migraines - Morbid obesity (HCC) - Unspecified asthma(493.90) - Unspecified essential hypertension - Unspecified hypothyroidism 06/2003 PAST SURGICAL HISTORY Procedure Laterality Date - DELIVERY ONLY 02/20/1999 AND 05/03/1996 AND 2007 - CHOLECYSTECTOMY - EGD W/O BRSH SPECIMEN W/BX 04/11/13 mild gastritis - MIDLINE CATHETER 01/31/2016 - TONSILLECTOMY HX FAMILY HISTORY Problem Relation Age of Onset - Breast Cancer Maternal Grandmother - Breast Cancer Paternal Aunt - Hypertension both grandmothers and both sides of the family/aunts and uncles - Heart Father - Diabetes Father was in a coma x 1 month due to diabetes per patient - Arthritis Mother - Asthma Mother - Thyroid Mother Social History Substance Use Topics - Smoking status: Former Smoker Quit date: 01/06/2007 - Smokeless tobacco: Never Used Comment: SOCIALLY ONLY OR WHEN STRESSED - Alcohol use Yes Comment: rare MEDICATIONS: Reviewed ALLERGIES Allergen Reactions - Asa [Aspirin] Other: See Comments Upset stomach - Bees Swelling - Benadryl [Diphenhyd* Hives - Codeine Mental Status Change HALLUCINATIONS - Flagyl [Metronidazo* Other: See Comments Per pt, topical flagyl irritated her incision and po flagyl gave her GI upset. - Ibuprofen GI Upset - Penicillins GI Upset REVIEW OF SYSTEM: All other systems reviewed and negative except for what mentioned in HPI Objective PHYSICAL EXAM: BP 153/86 Pulse 97 Temp 98.6 Resp 18 Ht 5' 1 (1.55m) Wt 514 lb (233.1kg) SpO2 96% BMI 97.17 kg/(m2). GENERAL: Alert, no distress, cooperative HEAD/SINUSES: No significant findings EYES: PERRLA, EOMI EARS: External ears normal, canals clear NOSE: Nares normal. Septum midline. OROPHARYNX: Lips, mucosa, and tongue normal. Teeth and gums normal. Oropharynx normal. NECK: No jugulovenous distention, No carotid bruits, Carotid pulse normal contour, Supple BACK: Back symmetric, Normal curvature, ROM normal, No CVAT. LUNGS: Lungs clear to auscultation, Good diaphragmatic excursion CARDIAC: Normal S1 and S2; no rubs, murmurs, or gallops ABDOMEN: Abdomen obese, soft, from the umbilicus down have reddish skin with pannus formation with foul odor EXTREMITIES: Extremities normal, no deformities, edema, clubbing or skin discoloration. NEURO: no focal motor or sensory deficit nerves PULSES: 2+ radial, 2+ carotid DATA: Diagnostic tests reviewed for today's visit: Most recent labs and imaging results. Assessment/Plan # Abdominal wall cellulites, start Vanc and zosyn, IVF, consult ID and wound care consult # Abdominal hernia, reducible by surgery, to follow with surgery # HTN, hypothyroidism, DM, stable, resume home meds # Morbid obesity, counseled on diet and exercise but pt will benefit from bypass surgery eventually SIGNATURE: Aj You MD PATIENT NAME: Rosalie Horne DATE: March 08, 2018 TIME: 12:42 PM PAGER/CONTACT #: ED NOTE Observed: 03/08/2018 Status: COMPLETED Source: [place] 12:21 PM CL[facility] OTHER CAMPUS REPOSITORY HNO ID: [id number] Author: Betsy VickRn) ADRIANNA Alfaro Service: Emergency Medicine Author Type: Registered Nurse Type: ED Notes Filed: 03/08/2018 12:22 PM Note Text: Pt upset as the doctor told her they are going to prescribe ATBs and not perform surgery. Pt upset and tearful; emotional support given. ED NOTE Observed: 03/08/2018 Status: COMPLETED Source: [place] 11:22 AM CLINIC OTHER CAMPUS REPOSITORY HNO ID: [id number] Author: Betsy VickRn) ADRIANNA Alfaro Service: Emergency Medicine Author Type: Registered Nurse Type: ED Notes Filed: 03/08/2018 11:23 AM Note Text: Surgery resident at bedside; ok to cancel visual acuity test. ED NOTE Observed: 03/08/2018 Status: COMPLETED Source: [place] 10:55 AM [facility] OTHER CAMPUS REPOSITORY HNO ID: [id number] Author: Betsy VickRn) ADRIANNA Alfaro Service: Emergency Medicine Author Type: Registered Nurse Type: ED Notes Filed: 03/08/2018 11:10 AM Note Text: Informed Dr Franco and Joey that pt's weight is 514lbs which is over the weight limit for our CT scanners. HEMOGRAM/DIFF Collected: 03/08/2018 Status: F Source: [facility] 9:45 AM HEALTH SYSTEM REPOSITORY TYPE CODE TESTS RESULT OUT OF REFERENCE UNITS RANGE LAB WBC(LOINC) 3.98-10.04 thou/cmm WBC High 14.72 LAB RBC(LOINC) 3.93-5.22 mil/cmm Low RBC 3.69 LAB HGB(LOINC) 11.2-15.7 g/dL Low Hgb 10.9 LAB HCT(LOINC) 34.1-44.9 % Hct 34.5 LAB MCV(LOINC) 79.4-94.8 fl MCV 93.5 LAB MCH(LOINC) 25.6-32.2 pg MCH 29.5 LAB MCHC(LOINC 31.6-34.8 % ) MCHC 31.6 LAB RDW(LOINC) 11.7-14.4 % RDW 14.3 LAB RDWSD(LOIN 36.4-46.3 fl C) RDW SD High 48.6 LAB PLT(LOINC) 182-369 thou/cmm Platelet 200 LAB MPV(LOINC) 9.4-12.3 fl MPV 11.2 LAB SEG(LOINC) % Seg Neutrophil 77.6 LAB IGRE(LOINC % ) Immature Grans 0.50 LAB LYMPH(LOIN % C) Lymphocyte 15.3 LAB MNO(LOINC) % Monocyte 4.3 LAB EOSIN(LOIN % C) Eosinophil 2.0 LAB BASO(LOINC % ) Basophil 0.3 LAB SEGN(LOINC 1.56-6.13 thou/cmm ) Abs. High Neut (ANC) 11.42 LAB IGAB(LOINC 0.00-0.05 thou/cmm ) Abs High Immature Grans 0.07 LAB LYMN(LOINC 1.18-3.74 thou/cmm ) Abs. Lymph 2.25 LAB MONON(LOIN 0.27-0.70 thou/cmm C) Abs. Hill 0.63 LAB EOSN(LOINC 0.00-0.31 thou/cmm ) Abs. Eosin 0.29 LAB BASON(LOIN 0.01-0.08 thou/cmm C) Abs. Baso 0.04 Result Comment: Smear scanned; tech agrees with automated differential Performed By: #### [id number] #### [place] [address] LACTIC ACID Collected: 03/08/2018 Status: F Source: [facility] 9:45 AM HEALTH SYSTEM REPOSITORY TYPE CODE TESTS RESULT OUT OF REFERENCE UNITS RANGE LAB LAC(LOINC) 0.4-2.0 mEq/L Lactic Acid 1.4 Performed By: #### LAC #### [place] [address] ED PROV NOTE Observed: 03/08/2018 Status: COMPLETED Source: [place] 9:13 AM CLINIC OTHER CAMPUS REPOSITORY HNO ID: [id number] Author: Jerry Franco MD Service: Emergency Medicine Author Type: Resident Type: ED Provider Notes Filed: 03/08/2018 12:39 PM Note Text: Attestation signed by Navin Cook MD at 03/10/2018 2:27 PM Attending Note I evaluated the patient and personally participated in the rae components. I agree with the resident's findings and plan as documented and have discussed the case and management of the patient's care with the resident. Signature: Navin Cook MD Date: 03/10/2018 Time: 2:19 PM ED Provider Note Patient Name: Rosalie Horne SERVICE DATE: 03/08/18 History Patient presents with: Abdominal Pain: Pt is a transfer from [place] with a ? incarcerated hernia. 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 Per patient she went to [place] earlier today for 1 hour of severe periumbical pain w/o N/V/D. There they did basic labs, and were obtain to obtain a CT non-contrast which was noted to be extremely limited, with the majority of the anterior abdominal subcutaneous tissue, wall, and anterior peritoneal not included in the field of view. I did note a portion of the left anterior inferior abdominal wall hernia with an opening of 4.5 cm containing small bowel. There is no overt colonic or small bowel obstruction. There is no ascites or pneumoperitoneum on imaging. There is also noted to be hepatomegaly and hepatic steatosis. Patient is status post cholecystectomy. There is a nonobstructing left inferior renal pole calculus. Pt accepted to be seen by surgery here Dr. Goodwin accepted. Pt also reports wound on the abdomen that is chronic and draining. History provided by: Patient and medical records filer helper used: No PAST MEDICAL HISTORY Diagnosis Date - Adjustment disorder with depressed mood - Impaired fasting glucose 6.0% - Migraines - Morbid obesity (HCC) - Unspecified asthma(493.90) - Unspecified essential hypertension - Unspecified hypothyroidism 06/2003 PAST SURGICAL HISTORY Procedure Laterality Date - DELIVERY ONLY 02/20/1999 AND 05/03/1996 AND 2007 - CHOLECYSTECTOMY - EGD W/O BRSH SPECIMEN W/BX 04/11/13 mild gastritis - MIDLINE CATHETER 01/31/2016 - TONSILLECTOMY HX FAMILY HISTORY Problem Relation Age of Onset - Breast Cancer Maternal Grandmother - Breast Cancer Paternal Aunt - Hypertension both grandmothers and both sides of the family/aunts and uncles - Heart Father - Diabetes Father was in a coma x 1 month due to diabetes per patient - Arthritis Mother - Asthma Mother - Thyroid Mother Social History Social History Main Topics - Smoking status: Former Smoker Quit date: 01/06/2007 - Smokeless tobacco: Never Used Comment: SOCIALLY ONLY OR WHEN STRESSED - Alcohol use Yes Comment: rare - Drug use: No - Sexual activity: Yes Partners: Male control/ protection: Vasectomy Comment: umair ALLERGIES Allergen Reactions - Asa [Aspirin] Other: See Comments Upset stomach - Bees Swelling - Benadryl [Diphenhyd* Hives - Codeine Mental Status Change HALLUCINATIONS - Flagyl [Metronidazo* Other: See Comments Per pt, topical flagyl irritated her incision and po flagyl gave her GI upset. - Ibuprofen GI Upset - Penicillins GI Upset Review of Systems Constitutional: Negative for chills and fever. HENT: Negative for congestion and sore throat. Eyes: Negative for photophobia, pain, discharge, redness, itching and visual disturbance. Respiratory: Negative for cough and shortness of breath. Cardiovascular: Negative for chest pain and leg swelling. Gastrointestinal: Positive for abdominal distention, abdominal pain and nausea. Negative for anal bleeding, blood in stool, constipation, diarrhea, rectal pain and vomiting. Endocrine: Negative for polyuria. Genitourinary: Negative for decreased urine volume, difficulty urinating, dyspareunia, dysuria, enuresis, flank pain, frequency, genital sores, hematuria, menstrual problem, pelvic pain, urgency, vaginal bleeding, vaginal discharge and vaginal pain. Musculoskeletal: Negative for back pain and neck pain. Skin: Negative for rash and wound. Neurological: Negative for dizziness, weakness and headaches. All other systems reviewed and are negative. Physical Exam BP 148/73 Pulse 96 Temp 98.6 Resp 16 Ht 5' 1 (1.55m) Wt 480 lb (217.7kg) SpO2 95% BMI 90.74 kg/(m2). Physical Exam Constitutional: She is oriented to person, place, and time. She appears well-developed and well-nourished. No distress. HENT: Head: Normocephalic and atraumatic. Right Ear: External ear normal. Left Ear: External ear normal. Nose: Nose normal. Mouth/Throat: Oropharynx is clear and moist. No oropharyngeal exudate. Eyes: EOM are normal. Pupils are equal, round, and reactive to light. Right eye exhibits no discharge. No foreign body present in the right eye. Right conjunctiva is not injected. Right conjunctiva has no hemorrhage. Left conjunctiva is not injected. Left conjunctiva has no hemorrhage. Right eye exhibits normal extraocular motion and no nystagmus. Left eye exhibits normal extraocular motion and no nystagmus. Right pupil is round and reactive. Left pupil is round and reactive. Pupils are equal. Neck: Normal range of motion. Neck supple. No tracheal deviation present. Cardiovascular: Normal rate, regular rhythm, normal heart sounds and intact distal pulses. Exam reveals no gallop and no friction rub. No murmur heard. Pulmonary/Chest: Effort normal and breath sounds normal. No stridor. No respiratory distress. She has no wheezes. She has no rales. She exhibits no tenderness. Abdominal: Soft. She exhibits no distension and no mass. There is tenderness. There is no rebound and no guarding. Morbidly obese abdomen. She is tender around her umbilicus. Her pannus has a midline separation, this is apparently prior scar, in this area there is erythema, some purulent drainage, and there is additional erythema and induration around the 2 lobes of her mons pannus. Musculoskeletal: Normal range of motion. She exhibits no edema, tenderness or deformity. Neurological: She is alert and oriented to person, place, and time. She exhibits normal muscle tone. Skin: Skin is warm and dry. No rash noted. She is not diaphoretic. No erythema. Nursing note and vitals reviewed. 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 Per patient she went to [place] earlier today for 1 hour of severe periumbical pain w/o N/V/D. There they did basic labs, and were obtain to obtain a CT non-contrast which was noted to be extremely limited, but did show bowel containing hernia. Vitals review, WNL. Morbidly obese abdomen. She is tender around her umbilicus. Her pannus has a midline separation, this is apparently prior scar, in this area there is erythema, some purulent drainage, and there is additional erythema and induration around the 2 lobes of her mons pannus. Could not obtain CT on CD from [place] despite multiple calls as their system is down. Could not obtain CT here as pt is 514 lbs, max is 500. Surgery resident and attending at [facility], able to reduce hernia. They recommend admission for IV Abx for cellulitis, but no further surgical intervention. Our Labs: CBC - leukocytosis 14.72, Hgb 10.9 MCV 93.5, ANC 11.42 Lactic- 1.4 Outside hospital labs: Lactic 1.4 CMP - BUN 10, Creat 1.03, remainder grossly unremarkable Pt has PCP but Medicaid, therefore House paged. Capped. Spoke with AJ Amaya of [facility] who agrees to admission. Will start Vanc 2 gm IV for cellulitis with purulent drainage. Clinical Impressions as of Mar 08 1211 Incarcerated umbilical hernia Abdominal wall cellulitis Chronic wound infection of abdomen, initial encounter Plan The patient was ADMITTED TO: Regular nursing floor. Condition at time of disposition: stable SIGNATURE: Jerry Franco MD Attending Note I evaluated the patient and personally participated in the rae components. I agree with the resident's findings and plan as documented and have discussed the case and management of the patient's care with the resident. 42-year-old female was a transfer from [facility] for surgical evaluation of an incarcerated wall hernia. Patient states she's had a known umbilical hernia since her first child was born. Last night she had sudden onset of pain in her mid abdomen. On exam patient signs reviewed. Patient is morbidly obese heart regular rate and rhythm lungs clear to auscultation abdomen is soft tender to palpation periumbilically. There is a large pannus. Normal bowel sounds Signature: Navin Cook MD Date: 03/08/2018 Time: 10:33 AM Jerry (Res) MD [place] Resident 03/08/18 1239 Navin Cook MD 03/10/18 1427 ED NOTE Observed: 03/08/2018 Status: COMPLETED Source: [place] 8:36 AM CLINIC OTHER CAMPUS REPOSITORY HNO ID: [id number] Author: Drew (Medic) Ania Mas Service: (none) Author Type: Timber Trimmer and Aircraft Designer Type: ED Notes Filed: 03/08/2018 8:36 AM Note Text: Bed: ED-32 Expected date: 03/08/18 Expected time: 8:18 AM Means of arrival: [facility] Comments: [facility] transfer CBC W/DIFF, AUTOMATED Collected: 03/08/2018 Status: F Source: [place] 2:25 AM [facility] REPOSITORY TYPE CODE TESTS RESULT OUT OF RANGE REFERENCE UNITS LAB L100.1000 4.4-11.0 K/mm3 High WBC 15.7 LAB L100.1200 4.2-5.4 M/mm3 Low RBC 4.13 LAB L100.1300 12.0-15.0 g/dl Normal HGB 12.3 LAB L100.1400 37-47 % Normal HCT 39.5 LAB L100.1500 81-99 fL Normal MCV 95.6 LAB L100.1600 27.0-32.0 pg Normal MCH 29.8 LAB L100.1700 32-36 g/gl Low MCHC 31.1 LAB L100.1810 11.6-14.6 % Normal RDW CV 14.2 LAB L100.1820 35.1-43.9 fl High RDW SD 47.9 LAB L100.1900 150-450 K/mm3 Normal PLT 277 LAB L100.2000 6.2-12.0 fl Normal MPV 10.5 LAB L100.2100 47-70 % High NEUT% 77.7 LAB L100.2200 19-41 % Low LY% 14.7 LAB L100.2300 0-10 % Normal MONO% 5.2 LAB L100.2400 0-5 % Normal EO% 1.9 LAB L100.2500 0-1 % Normal BASO% 0.2 LAB L100.2550 0.0-0.9 % Normal IM GRAN % 0.300 Result Comment: IG% - Immature Granulocytes (promyelocytes, myelocytes and metamyelocytes) > 1% indicates that a LEFT SHIFT is Present. LAB L100.2620 2.0-7.7 X10 3/uL High Absolute Neut 12.2 LAB L100.2720 0.83-4.51 X10 3/ul Normal Absolute Lymph 2.30 Performed By: #### L100.0100 #### [facility] [address] [place], [address] BASIC METABOLIC Collected: 03/08/2018 Status: F Source: [place] PROFILE (BMP) 2:25 AM [facility] REPOSITORY TYPE CODE TESTS RESULT OUT OF RANGE REFERENCE UNITS LAB L501.0100 74-106 mg/dL High GLU 111 Result Comment: Fasting Glucose result from 100 to 125 mg/dL suggests IMPAIRED HOMEOSTASIS per A.D.A. criteria. Please note revised GLUCOSE reference range effective 2017. LAB L501.1000 7-18 mg/dL Normal BUN 10 LAB L501.1100 0.55-1.02 mg/dL High CREAT,SERUM 1.03 Result Comment: The validity of the calculated GFR AND GFRAA in patients over 70 years has not been determined. Clinical correlation is essential. LAB L501.1110 >60 mL/min Normal EST GFR 62 Result Comment: Non- GFR Calc LAB L501.1115 >60 mL/min Normal EST GFR - AA 75 Result Comment: GFR Calc LAB L501.1255 ml/min Normal Estimated CRCL 53.69 LAB L501.1300 10-20 RATIO Low BUN/CRE 9.7 LAB L501.2200 8.5-10 mg/dL Normal .1 CA 9.0 LAB L501.5300 136-14 mmol/L Normal 5 NA 139 LAB L501.5600 3.5-5. mmol/L Normal 1 K 3.7 LAB L501.5900 98-107 mmol/L Normal CL 102 LAB L501.6100 21.0-3 mmol/L Normal 2.0 CO2 30.0 LAB L501.6200 5-15 Normal GAP 7 Performed By: #### L500.2500, L500.3400, L501.2450 #### [facility] [address] [place], [place], [id number] LIVER PROFILE Collected: 03/08/2018 Status: F Source: [place] 2:25 AM [facility] REPOSITORY TYPE CODE TESTS RESULT OUT OF RANGE REFERENCE UNITS LAB L501.1500 6.4-8.2 g/dL Normal T PROT 8.1 LAB L501.1800 3.2-5.0 g/dL Normal ALB 3.6 LAB L501.1950 2.2-4.2 g/dL High GLOB 4.5 LAB L501.4100 15-37 U/L Normal AST 21 LAB L501.4305 45-117 U/L Normal ALK P 51 LAB L501.4405 13-56 U/L Normal ALT 23 LAB L501.4600 0.20-1.00 mg/dL Normal T BILI 0.30 LAB L501.4700 0.00-0.30 mg/dL Normal D BILI 0.10 Performed By: #### L500.2500, L500.3400, L501.2450 #### [facility] [address] [place], [place], [id number] LIPASE Collected: 03/08/2018 Status: F Source: [place] 2:25 AM [facility] REPOSITORY TYPE CODE TESTS RESULT OUT OF RANGE REFERENCE UNITS LAB L501.2450 73-393 U/L Normal LIPASE 168 Performed By: #### L500.2500, L500.3400, L501.2450 #### [facility] [address] [place], [address] PROTHROMBIN TIME W/INR Collected: 03/08/2018 Status: F Source: [place] 2:25 AM [facility] REPOSITORY TYPE CODE TESTS RESULT OUT OF RANGE REFERENCE UNITS LAB L300.4150 11.7-14.9 SECONDS Normal PROTIME 12.6 LAB L300.4200 Normal INR 0.9 Performed By: #### L300.3900 #### [facility] [address] [place], [address] TYPE AND SCREEN Collected: 03/08/2018 Status: F Source: [place] 2:25 AM [facility] REPOSITORY Order Comment: RESULT(S) PREVIOUSLY REPORTED ON MANUAL REQUISITION DURING DOWNTIME. Reason for Type AND Screen/Red Cells: SURGERY TYPE CODE TESTS RESULT OUT OF RANGE REFERENCE UNITS LAB B10.0800 A Normal BLOOD TYPE GEL POSITIVE LAB B100.4000 Normal Antibody NEGATIVE Screen Performed By: #### B101.7450 #### [facility] [address] [place], [address] LACTIC ACID Collected: 03/08/2018 Status: F Source: [place] 2:25 AM [facility] REPOSITORY Order Comment: Yes/No query for Sepsis Lactate Rule Y TYPE CODE TESTS RESULT OUT OF RANGE REFERENCE UNITS LAB L503.6005 0.4-2.0 mmol/L Normal LACTIC ACID 1.4 Performed By: #### L503.6005 #### [facility] [address] [place], [address] ABDOMEN/PELVIS WITHOUT Observed: 03/08/2018 Status: F Source: [place] 12:56 AM [facility] REPOSITORY [facility] Imaging Services [address] [place] [address] Abdomen/Pelvis without Cont MR#: [id number] Acct: [id number] Name: ROSALIE HORNE Tara Rep #: [id number] : 1975 F 42 From: Marisol Harris MD PCP: Franco Jacques DO Status: REG ER Study: Abdomen/Pelvis without Cont Date of Exam: 03/08/18 Exam# [id number] Ordering Dr: Xiomara Bynum DO STUDY: CT ABDOMEN AND PELVIS WITHOUT CONTRAST REASON FOR EXAM: Female, 42 years old. Hernia, abdominal pain RADIATION DOSAGE (If Supplied By Facility): CTDIvol = ( 24.18 ) mGy, DLP = ( 1579.66 ) mGycm TECHNIQUE: Transaxial 2.5 mm images were obtained from the dome of the diaphragm to the symphysis pubis without oral contrast, and without intravenous contrast. Sagittal and coronal images were reconstructed. This examination is limited for the evaluation of gastrointestinal, solid organs and vascular structures due to the lack of intravenous and oral contrast. There is obesity, the entirety of soft tissue is not imaged. There is poor hcgvus-vk-[id number] ratio limiting the examination. The anterior abdominal wall cutaneous tissue and portion of the peritoneum are not included. Individualized dose optimization techniques were used for this CT. COMPARISON: None. FINDINGS: The visualized lung bases are unremarkable. The visualized portions of the heart are within normal limits. There is decreased attenuation of the enlarged liver consistent with steatosis. There are surgical clips in the gallbladder fossa consistent with a prior cholecystectomy. Normal spleen. Poorly visualized pancreas and bilateral adrenal glands. No overt significant hydronephrosis. Calcification left inferior renal pole likely nonobstructing calculus. Normal visualized stomach. What is seen of the intraperitoneal small and large bowel is nonobstructed. Extremely limited gastrointestinal assessment. There is non-visualization of the appendix. Normal abdominal aorta. Normal inferior vena cava. Normal retroperitoneum. Normal urinary bladder. There is a portion of a left lower anterior abdominal wall hernia containing small bowel partially imaged, opening of the hernia appears to be 4.5 cm coronal image 23. Hernia sac and hernia content detail is not included on the images. Fat attenuation of the inferior pannus partially noted. Retrolisthesis L5 on S1. Joint space narrowing. CT/Abdomen/Pelvis without Cont IMPRESSION: Extremely limited examination, the majority of the anterior abdominal subcutaneous tissue, wall and anterior peritoneal are not included in the nkvik-bs-[id number]. Portion of a left anterior inferior abdominal wall hernia with an opening of 4.5 cm containing small bowel is imaged. No overt colonic or small bowel obstruction, ascites or pneumoperitoneum on submitted images. Hepatomegaly and hepatic steatosis. Cholecystectomy. Nonobstructing left inferior renal pole calculus. Electronically Signed: Marisol Harris MD at 2:52 EDT , Service support , CC: Franco Jacques DO; Xiomara Bynum DO Efficiency Manager: Signed CNCO Observed: 02/15/2018 Status: COMPLETED Source: [place] 2:41 PM [facility] REPOSITORY HNO ID: [id number] Author: Mammography Coordinator Service: (none) Author Type: Physician Type: Letter Filed: 02/16/2018 11:32 PM Note Text: February 15, 2018 PID: [id number] Rosalie Horne [address] [place] [address] Dear Ms. Horne, We are pleased to inform you that the results of your recent breast imaging exam on 02/15/2018 are normal. Early detection of cancer is very important. We also understand recommendations regarding breast cancer screening are controversial. Please discuss with your primary care provider which strategy is best for you and whether a mammogram is right for you. Your imaging studies and report will be kept on file at [facility] as part of your permanent medical record and are available for your continuing care. Thank you for allowing us to help in meeting your health care needs. Sincerely, Dr. Carmona Interpreting Radiologist [facility] (Normal over 40) [facility] SCREENING Observed: 02/15/2018 Status: F Source: [place] 1:29 PM [facility] REPOSITORY * * *Final Report* * * DATE OF EXAM: Feb 15 2018 1:29PM [facility] 0581 - [facility] SCREENING / PROCEDURE REASON: Encounter for screening mammogram for malignant neoplasm of breast * * * * Physician Interpretation * * * * RESULT: #[id number] - [facility] SCREENING BILATERAL DIGITAL SCREENING MAMMOGRAM WITH CAD: 02/15/2018 HISTORY: Encounter For Screening Mammogram For Malignant Neoplasm Of Breast. RESULT: TECHNIQUE: The study was acquired using full field digital technology and interpreted from soft copy. Current study was also evaluated with a Computer Aided Detection (CAD). Comparison is made to exams dated: 08/11/2016 mammogram, 08/29/2015 mammogram, and 04/20/2013 mammogram - [facility]. The tissue of both breasts is predominantly fatty. No significant masses, calcifications, or other findings are seen in either breast. There has been no significant interval change. IMPRESSION: NEGATIVE There is no mammographic evidence of malignancy. A 1 year screening mammogram is recommended. Liliane Carmona M.D., jr/penrad:02/15/2018 14:41:49 Sanitation Lead: Osiris BRIGHT(Shelby)(Rojas), [facility] letter sent: Normal over 40 Mammogram BI-RADS: 1 Negative Efficiency Manager: Cheng Transcribe Date/Time: Feb 15 2018 1:03P Dictated by: LILIANE CARMONA MD This examination was interpreted and the report reviewed and electronically signed by: LILIANE CARMONA MD on Feb 15 2018 2:41PM EST [id number] CBC AND DIFFERENTIAL Collected: 12/16/2017 Status: F Source: [place] 2:40 PM [facility] REPOSITORY TYPE CODE TESTS RESULT OUT OF REFERENCE UNITS RANGE LAB WBC 3.70-11.00 k/uL WBC 10.65 LAB RBC 3.90-5.20 m/uL RBC 4.47 LAB HGB 11.5-15.5 g/dL Hemoglobin 13.0 LAB HCT 36.0-46.0 % Hematocrit 42.8 LAB MCV 80.0-100.0 fL MCV 95.7 LAB MCH 26.0-34.0 pG MCH 29.1 LAB MCHC 30.5-36.0 g/dL Low MCHC 30.4 LAB RDWCV 11.5-15.0 % RDW-CV 14.9 LAB PLTCT 150-400 k/uL Platelet Count 342 LAB MPV 9.0-12.7 fL MPV 11.4 LAB ANEUT % Neut% 57.6 LAB AANEUT 1.45-7.50 k/uL Abs Neut 6.13 LAB ALYMP % Lymph% 33.7 LAB AALYMP 1.00-4.00 k/uL Abs Lymph 3.59 LAB AMONO % Hill% 5.2 LAB AAMONO <0.87 k/uL Abs Hill 0.55 LAB AEOS % Eosin% 2.5 LAB AAEOS <0.46 k/uL Abs Eosin 0.27 LAB ABASO % Baso% 1.0 LAB AABASO <0.11 k/uL Abs Baso High 0.11 LAB AUNRBC 0 /100 WBC NRBCs 0.0 LAB ABNRBC <0.01 k/uL Absolute nRBC <0.01 LAB DTYP DTYPE Auto Diff Performed By: #### CBCDIF, CMP, TSH, FT4, T3 #### [facility] [address] [place], [place] [address] COMP METABOLIC PANEL Collected: 12/16/2017 Status: F Source: [place] 2:40 PM [facility] REPOSITORY TYPE CODE TESTS RESULT OUT OF REFERENCE UNITS RANGE LAB TP 6.3-8.0 g/dL Protein, High Total 8.3 LAB ALB 3.9-4.9 g/dL Albumin 4.9 LAB CA 8.5-10.2 mg/dL Calcium, Total 9.5 LAB TBIL 0.2-1.3 mg/dL Bilirubin, Total 0.3 LAB ALKP 32-117 U/L Alkaline Phosphatase 39 LAB AST 13-35 U/L AST 22 LAB GLU 74-99 mg/dL Glucose 80 Result Comment: The [place] Diabetes Association (ADA) provides guidance for cutoff values for fasting glucose and random glucose. The ADA defines fasting as no caloric intake for at least 8 hours. Fas ting plasma glucose results between 100 to 125 mg/dL indicate increased risk for diabetes (prediabetes). Fasting plasma glucose results greater than or equal to 126 mg/dL meet the criteria for diagnosis of diabetes. In the absence of unequivocal hyperglycemia, results should be confirmed by repeat testing. In a patient with classic symptoms of hyperglycemia or hyperglycemic crisis, random plasma glucose results greater than or equal to 200 mg/dL meet the criteria for diagnosis of diabetes. Reference: Standards of Medical Care in Diabetes 2016, [place] [employer] Association. Diabetes Care. 2016.39(Suppl 1). LAB BUN 7-21 mg/dL BUN 10 LAB CRET 0.58-0.96 mg/dL Creatinine High 1.21 LAB NA 136-144 mmol/L Sodium 138 LAB K 3.7-5.1 mmol/L Potassium 4.5 LAB CL 97-105 mmol/L Low Chloride 95 LAB CO2 22-30 mmol/L CO2 26 LAB AGAP 9-18 mmol/L Anion Gap 17 LAB ALT 7-38 U/L ALT 13 LAB GFRAA eGFR- Amer. 59 LAB GFRNAA . eGFR-All Other Races 49 Result Comment: eGFR (Estimated GFR) Units of measure: mL/min/1.73 meters squared eGFR is derived from the reexpressed MDRD Study equation using the following parameters: serum creatinine, age, gender and race. The creatinine assay has been calibrated to be traceable to IDMS. An eGFR <60 mL/min/1.73m2 for >3 months is consistent with chronic kidney disease. Refer to KDOQI guidelines for clinical interpretation. In patients with unstable renal function, e.g. those with acute kidney injury, the eGFR may not accurately reflect actual GFR. Performed By: #### CBCDIF, CMP, TSH, FT4, T3 #### [facility] [address] [place], [place] [address] TSH Collected: 12/16/2017 Status: F Source: [place] 2:40 PM [facility] REPOSITORY TYPE CODE TESTS RESULT OUT OF RANGE REFERENCE UNITS LAB TSH 0.400-5.500 uU/mL High TSH 97.250 Result Comment: If the patient is , TSH reference range varies by gestational period: First Trimester 0.100-2.500 uU/mL Second Trimester 0.200-3.000 uU/mL Third Trimester 0.300-3.000 uU/mL References: 1. Farley L, Jami M, Elfego EK, et al. Management of Thyroid Dysfunction during and : An Endocrine Society Clinical Practice Guideline. J Clin Endocrinol Metab, 2012:97:1670-0523. 2. Carlos RODNEY. Overview of thyroid disease in . UpToDate. 2016. Accessed on March 21, 2016. Performed By: #### CBCDIF, CMP, TSH, FT4, T3 #### [facility] [address] [place], [place] [address] FREE T4 Collected: 12/16/2017 Status: F Source: [place] 2:40 PM [facility] REPOSITORY TYPE CODE TESTS RESULT OUT OF RANGE REFERENCE UNITS LAB FT4 0.9-1.7 ng/dL Low Free T4 <0.1 Result Comment: Result rechecked. Performed By: #### CBCDIF, CMP, TSH, FT4, T3 #### [facility] [address] [place], [place] [address] T3 Collected: 12/16/2017 Status: F Source: [facility] 2:40 PM [facility] REPOSITORY TYPE CODE TESTS RESULT OUT OF RANGE REFERENCE UNITS LAB T3 79-165 ng/dL Low T3 <20 Result Comment: Result rechecked. Performed By: #### CBCDIF, CMP, TSH, FT4, T3 #### [facility] [address] [place], [place] [address] CNOV Observed: 12/16/2017 Status: COMPLETED Source: [place] 2:00 PM [facility] REPOSITORY Office Visit (FAMPWS) ROSALIE HORNE ([id number]) 1975 F Date Time Provider Department 12/16/17 2:00 PM TRISHA REDDING (ALYCIA) FAMPWS During your visit today, we recorded the following information about you: Pulse Respiration Blood pressure Weight 72/minute 16/minute 124/78 226.8 kg Last Period 12/02/17 Trisha Redding CNP, CNP 12/16/2017 3:25 PM Signed HPI/CC:Rosalie Horne is a 42 year old female who presents in follow up Infection. Was started on additional antibiotics and lotion. Has seen improvement. Was started on a high protein diet, activa yogart daily. Decreased drainage. Decreased mobility d/t increased panus cellulitis. Patient reports area is about the same as prior OV. Denies CP , SOB, fever, chills, N/V. ROS as above, otherwise non-contributory. Reviewed PMHx, PSHx, social Hx, medications and allergies. PHYSICAL EXAMINATION: BP 124/78 (BP Site: Right Arm, BP Position: Sitting, BP Cuff Size: Regular Adult) Pulse 72 Resp 16 Wt (!) 226.8 kg (500 lb) LMP 12/02/2017 BMI 88.59 kg/m2 General appearance: Well appearing, alert, in no acute distress, well-hydrated, well nourished., Morbidly obese Skin: right panus red, firm, warm to palpation Lungs: Lungs clear to auscultation. No wheezing, rhonchi, rales Heart: RRR without murmur, gallop, or rubs. No ectopy ASSESSMENT/PLAN: 1. Cellulitis, abdominal wall - ICD9: 682.2, ICD10: L03.311 (primary diagnosis) - CBC + DIFF - CEPHALEXIN 500 MG CAPSULE - SULFAMETHOXAZOLE 800 MG-TRIMETHOPRIM 160 MG TABLET - CONSULT TO GENERAL SURGERY - COMP METABOLIC PANEL 2. Wound dehiscence, - ICD9: 674.10, ICD10: O90.0 - CEPHALEXIN 500 MG CAPSULE - SULFAMETHOXAZOLE 800 MG-TRIMETHOPRIM 160 MG TABLET 3. Abdominal pannus - ICD9: 278.1, ICD10: E65 - CBC + DIFF - CONSULT TO GENERAL SURGERY 4. Hypothyroidism, acquired - ICD9: 244.9, ICD10: E03.9 - Instructed patient on importance of taking on an empty stomach either first thing in the morning or at bedtime. - TSH BLD - T3 BLD - T4 FREE/FREE THYROX -f/u PRN, discussed when to go to ER Trisha Redding CNP Referring Provider: FRANCO BARDALES [[id number]] Allergies As of Date: 12/16/2017 Noted Allergy Reaction ASA (ASPIRIN) 01/20/2012 14 - Other: See Comments Comments: Upset stomach BEES 07/21/2005 7 - Swelling BENADRYL (DIPHENHYDRAMINE HCL) 07/21/2005 4 - Hives CODEINE 07/21/2005 1 - Mental Status Change Comments: HALLUCINATIONS IBUPROFEN 07/21/2005 8 - GI Upset PENICILLINS 05/10/2015 8 - GI Upset Date Reviewed: 12/16/2017 Reviewed by: Charley Pool Ma - Fully Assessed Reason for Visit: Infection Follow Up [486] Primary Visit Diagnosis:Cellulitis, abdominal wall [L03.311] Other Visit Diagnoses:Wound dehiscence, [O90.0] Abdominal pannus [E65] Hypothyroidism, acquired [E03.9] Order(s):CBC + DIFF [SQCBCDIF] Order #: [id number] FUTURE cephALEXin (KEFLEX) 500 mg capsuleTake 1 capsule by mouth four times daily for 14 days.Disp: 56 capsuleRfl: 0 sulfamethoxazole-trimethoprim (BACTRIM DS,SEPTRA DS) 800-160 mg per tabletTake 1 tablet by mouth twice daily for 14 days.Disp: 28 tabletRfl: 0 CONSULT TO GENERAL SURGERY [9011] Order #: [id number]: 1 TSH BLD [SQTSH] Order #: [id number] FUTURE T3 BLD [SQT3] Order #: [id number] FUTURE T4 FREE/FREE THYROX [SQFT4] Order #: [id number] FUTURE COMP METABOLIC PANEL [SQCMP] Order #: [id number] FUTURE Prescriptions as of 12/16/2017 Sig: PROTEIN ORAL POWDER Take 1 Dose by mouth twice da* OMEPRAZOLE 20 MG CAPSULE,RACHID* Take 1 capsule by mouth once * MUPIROCIN 2 % TOPICAL OINTMENT Apply 1 application to affect* LEVOTHYROXINE 25 MCG TABLET Take 1 tablet by mouth once d* LEVOTHYROXINE 200 MCG TABLET Take 1 tablet by mouth once d* SERTRALINE 100 MG TABLET Take 1 tablet by mouth once d* LISINOPRIL 10 MG-HYDROCHLOROT* Take 1 tablet by mouth once d* MONTELUKAST 10 MG TABLET Take 1 tablet by mouth once d* LORATADINE 10 MG TABLET Take 1 tablet by mouth once d* NYSTATIN 100,000 UNIT/GRAM TO* Apply 1 application to affect* BLOOD-GLUCOSE METER KIT Glucose Meter of Choice - Kit* BLOOD SUGAR DIAGNOSTIC STRIPS Test blood sugar(s) 1 times d* LANCETS Test blood sugar(s) 1 times d* LANCING DEVICE Test blood sugar(s) 1 times d* BUPROPION HCL SR 150 MG TABLE* Take 1 tablet by mouth as dir* NYSTATIN 100,000 UNIT/GRAM TO* Apply 1 application to affect* TRIAMCINOLONE ACETONIDE 0.1 %* Apply 1 application to affect* ALBUTEROL SULFATE HFA 90 MCG/* Inhale 2 Puffs as instructed * MULTIVITAMIN TABLET Take 1 tablet by mouth once d* DICLOFENAC 1 % TOPICAL GEL Apply 1 g to affected area fo* ONDANSETRON HCL 4 MG TABLET Take 1 tablet by mouth three * EPINEPHRINE 0.3 MG/0.3 ML INJ* Use as needed for bee sting NAPROXEN 500 MG TABLET Take 1 tablet by mouth twice * TYLENOL ARTHRITIS 650 MG TABL* prn CEPHALEXIN 500 MG CAPSULE Take 1 capsule by mouth four * SULFAMETHOXAZOLE 800 MG-TRIME* Take 1 tablet by mouth twice * METRONIDAZOLE 0.75 % LOTION Apply 1 application to affect* METRONIDAZOLE 0.75 % TOPICAL * Insert 1 applicator-full vagi* LEVONORGESTREL-ETHINYL ESTRAD* Take 1 tablet by mouth once d* LEVONORGESTREL-ETHINYL ESTRAD* Take 1 tablet by mouth once d* Problem List As Of Date 12/16/2017 Noted Resolved Environmental allergies [Z91.09] INVALID FOR* Major depressive disorder, recurrent episode (H*INVALID FOR* More... Obesity, Unspecified [E66.9] INVALID FOR*09/19/2009 Hypothyroidism [E03.9] INVALID FOR* Unspecified essential hypertension [I10] 03/22/2013 Adjustment disorder with depressed mood [F43.21] 12/15/2017 Unspecified asthma [J45.909] INVALID FOR* PLANTAR Fasciitis [M72.2] INVALID FOR* Calcaneal Spur [M77.30] INVALID FOR*09/19/2009 Supervision of Other High-Risk [O09.8*INVALID FOR*09/19/2009 Panic attacks [F41.0] INVALID FOR* Allergic rhinitis [J30.9] INVALID FOR*12/15/2017 Asthma [J45.909] INVALID FOR*08/13/2017 More... Esophageal reflux [K21.9] INVALID FOR* More... Hypertension [I10] INVALID FOR* More... Gallbladder disorder [K82.9] INVALID FOR*12/15/2017 Abnormal gallbladder ultrasound [R93.2] INVALID FOR*12/15/2017 Need for tetanus booster [Z23] INVALID FOR*12/15/2017 Epigastric pain [R10.13] INVALID FOR*12/15/2017 Unspecified gastritis and gastroduodenitis with*INVALID FOR* Morbid obesity with BMI of 70 and over, adult [*INVALID FOR* Cholelithiasis [K80.20] INVALID FOR* Chest pain [R07.9] INVALID FOR* Priority: A More... SUMMARY INVALID FOR*08/13/2017 Priority: A More... Borderline diabetes [R73.03] INVALID FOR*08/13/2017 Cellulitis, abdominal wall [L03.311] INVALID FOR* IFG (impaired fasting glucose) [R73.01] INVALID FOR* Abdominal pannus [E65] INVALID FOR* Vaginal odor [N89.8] INVALID FOR* Myalgia [M79.1] INVALID FOR* Arthralgia of multiple joints [M25.50] INVALID FOR* Protein-deficiency anemia [D53.0] INVALID FOR* Prescriptions ordered this encounter Disp Refills Start End CEPHALEXIN 500 MG CAPSULE 56 c* 0 12/16/2017 12/30/2017 Route: ORAL Sig: Take 1 capsule by mouth four times daily for 14 days. SULFAMETHOXAZOLE 800 MG-TRIMETHOPRIM* 28 t* 0 12/16/2017 12/30/2017 Route: ORAL Sig: Take 1 tablet by mouth twice daily for 14 days. Medications Discontinued During This Encounter cephALEXin (KEFLEX) 500 mg capsule 56 c* 0 11/30/2017 12/16/2017 Route: ORAL Sig: Take 1 capsule by mouth four times daily for 14 days. Disc: Reason for discontinue is not on file. sulfamethoxazole-trimethoprim (BACTR* 28 t* 0 11/30/2017 12/16/2017 Route: ORAL Sig: Take 1 tablet by mouth twice daily for 14 days. Disc: Reason for discontinue is not on file. Encounter Status:Closed by TRISHA REDDING CNP on 12/16/17 PROGRESS Observed: 12/16/2017 Status: COMPLETED Source: [place] 1:55 PM [facility] REPOSITORY HNO ID: [id number] Author: Trisha Marie (Fur Stylist) ALYCIA Redding Service: (none) Author Type: Nurse Practitioner Type: Progress Notes Filed: 12/16/2017 3:25 PM Note Text: HPI/CC:Rosalie Horne is a 42 year old female who presents in follow up Infection. Was started on additional antibiotics and lotion. Has seen improvement. Was started on a high protein diet, activa yogart daily. Decreased drainage. Decreased mobility d/t increased panus cellulitis. Patient reports area is about the same as prior OV. Denies CP , SOB, fever, chills, N/V. ROS as above, otherwise non-contributory. Reviewed PMHx, PSHx, social Hx, medications and allergies. PHYSICAL EXAMINATION: BP 124/78 (BP Site: Right Arm, BP Position: Sitting, BP Cuff Size: Regular Adult) Pulse 72 Resp 16 Wt (!) 226.8 kg (500 lb) LMP 12/02/2017 BMI 88.59 kg/m2 General appearance: Well appearing, alert, in no acute distress, well-hydrated, well nourished., Morbidly obese Skin: right panus red, firm, warm to palpation Lungs: Lungs clear to auscultation. No wheezing, rhonchi, rales Heart: RRR without murmur, gallop, or rubs. No ectopy ASSESSMENT/PLAN: 1. Cellulitis, abdominal wall - ICD9: 682.2, ICD10: L03.311 (primary diagnosis) - CBC + DIFF - CEPHALEXIN 500 MG CAPSULE - SULFAMETHOXAZOLE 800 MG-TRIMETHOPRIM 160 MG TABLET - CONSULT TO GENERAL SURGERY - COMP METABOLIC PANEL 2. Wound dehiscence, - ICD9: 674.10, ICD10: O90.0 - CEPHALEXIN 500 MG CAPSULE - SULFAMETHOXAZOLE 800 MG-TRIMETHOPRIM 160 MG TABLET 3. Abdominal pannus - ICD9: 278.1, ICD10: E65 - CBC + DIFF - CONSULT TO GENERAL SURGERY 4. Hypothyroidism, acquired - ICD9: 244.9, ICD10: E03.9 - Instructed patient on importance of taking on an empty stomach either first thing in the morning or at bedtime. - TSH BLD - T3 BLD - T4 FREE/FREE THYROX -f/u PRN, discussed when to go to ER Trisha Redding CNP PROGRESS Observed: 11/30/2017 Status: COMPLETED Source: [place] 2:26 PM [facility] REPOSITORY O ID: [id number] Author: Franco Bardales Service: (none) Author Type: Physician Type: Progress Notes Filed: 11/30/2017 2:32 PM Note Text: CC: Rosalie Horne is a 42 year old female who presents to the office for abdominal wound HPI: Abdominal old uterine scar dehiscence, present for the last few days/week, was seen at [facility], not started on treatment. No fevers or chills. Tries best she can to keep area dry but this is a struggle. Hx of low protein levels, was on Ensure with benefit in the past. PAST MEDICAL HISTORY Diagnosis Date - Adjustment disorder with depressed mood - Impaired fasting glucose 6.0% - Migraines - Morbid obesity (HCC) - Unspecified asthma(493.90) - Unspecified essential hypertension - Unspecified hypothyroidism 06/2003 PAST SURGICAL HISTORY Procedure Laterality Date - DELIVERY ONLY 02/20/1999 AND 05/03/1996 AND 2007 - CHOLECYSTECTOMY - EGD W/O BRSH SPECIMEN W/BX 04/11/13 mild gastritis - MIDLINE CATHETER 01/31/2016 - TONSILLECTOMY HX Current Outpatient Prescriptions: omeprazole (PRILOSEC) 20 mg capsule Take 1 capsule by mouth once daily. mupirocin (BACTROBAN) 2 % ointment Apply 1 application to affected area twice daily. levothyroxine (LEVOXYL) 25 mcg tablet Take 1 tablet by mouth once daily. Take with 200 mcg tablet to total 225 mg a day, Take on empty stomach. For Thyroid levothyroxine (LEVOXYL) 200 mcg tablet Take 1 tablet by mouth once daily. Take with 200 mcg tablet to total 225 mg a day sertraline (ZOLOFT) 100 mg tablet Take 1 tablet by mouth once daily. lisinopril-hydrochlorothiazide (PRINZIDE,ZESTORETIC) 10-12.5 mg per tablet Take 1 tablet by mouth once daily. montelukast (SINGULAIR) 10 mg tablet Take 1 tablet by mouth once daily. loratadine (CLARITIN) 10 mg tablet Take 1 tablet by mouth once daily. nystatin (NYSTOP) powder Apply 1 application to affected area three times daily. intertrigo Blood-Glucose Meter monitoring kit Glucose Meter of Choice - Kit - Dx: Other DM Code Impaired fasting glucose blood sugar diagnostic (BLOOD GLUCOSE TEST) test strip Test blood sugar(s) 1 times daily. Dx: Other DM Code IFG Insulin: No Lancets lancets Test blood sugar(s) 1 times daily. Dx: Other DM Code IFG Insulin: No Lancing Device misc Test blood sugar(s) 1 times daily. Dx: Other DM Code IFG Insulin: No buPROPion SR (ZYBAN SR; WELLBUTRIN SR) 150 mg 12 hr tablet Take 1 tablet by mouth as directed. Take 1 tablet PO daily x 2 weeks then increase to 1 tablet PO twice a day nystatin (MYCOSTATIN) ointment Apply 1 application to affected area twice daily. triamcinolone acetonide (KENALOG) 0.1 % ointment Apply 1 application to affected area twice daily. albuterol HFA (PROAIR HFA) 90 mcg/actuation inhaler Inhale 2 Puffs as instructed four times daily. multivitamin (DAILY MULTIPLE) tablet Take 1 tablet by mouth once daily. Diclofenac Sodium (VOLTAREN) 1 % gel Apply 1 g to affected area four times daily as needed. ondansetron (ZOFRAN, HYDROCHLORIDE,) 4 mg tablet Take 1 tablet by mouth three times daily as needed (15-30 minutes before eating). EPINEPHrine (EPIPEN) 0.3 mg/0.3 mL PnIj Use as needed for bee sting naproxen (NAPROSYN) 500 mg ORAL tablet Take 1 tablet by mouth twice daily as needed. FOR PAIN. TAKE WITH FOOD. acetaminophen(TYLENOL ARTHRITIS 650 MG TAB) prn Protein (ENSURE HIGH PROTEIN) powd Take 1 Dose by mouth twice daily. metroNIDAZOLE 0.75 % lotn Apply 1 application to affected area once daily. To area of open wound on abdomen cephALEXin (KEFLEX) 500 mg capsule Take 1 capsule by mouth four times daily for 14 days. sulfamethoxazole-trimethoprim (BACTRIM DS,SEPTRA DS) 800-160 mg per tablet Take 1 tablet by mouth twice daily for 14 days. metroNIDAZOLE 0.75 % cream Insert 1 applicator-full vaginally at night for 5-7days. Levonorgestrel-Ethinyl Estrad 0.1mg - 20mcg per tablet Take 1 tablet by mouth once daily. Levonorgestrel-Ethinyl Estrad 0.1mg - 20mcg per tablet Take 1 tablet by mouth once daily. No current facility-administered medications for this visit. 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 Social History Main Topics Smoking status: Former Smoker Packs/day: 0.00 Years: 0.00 Quit date: 01/06/2007 Smokeless status: Never Used Comment: SOCIALLY ONLY OR WHEN STRESSED Alcohol use: Yes Comment: rare Drug use: No Sexual activity: Yes Partners with: Male control/protection: Vasectomy Comment: umair Social History Narrative x 19 years, 4 children (3 pregnancies, last are twins) ROS: See HPI PE: BP 136/80 Pulse 80 Temp (Src) 98.4 (Left Tympanic) Resp 24 Wt 492 lb (223.2kg) LMP 11/09/2017 Gen: AANDOX3, NAD, non-toxic appearing HEENT: PERRLA, EOMs intact b/l, nares without drainage, pharynx without erythema, exudate, lesions, or drainage. Uvula midline. Neck: No LAD, no thyromegaly, no meningismus. CV: RRR, no murmur Lungs: CTA b/l, no wheezing Skin: No rashes, lesions, or wounds on exposed skin. ASSESSMENT/PLAN: 1. Other iron deficiency anemia - ICD9: 280.8, ICD10: D50.8 (primary diagnosis) - rx as below - PROTEIN ORAL POWDER 2. Visit for screening mammogram - ICD9: V76.12, ICD10: Z12.31 - PAUL SCREENING 3. Disruption of external surgical wound, initial encounter - ICD9: 998.32, ICD10: T81.31XA - rx as below, likely to continue to reocur due to sight and warmth/moisture, keep area dry and clean, f/u in office in 2 weeks. 4. Cellulitis, abdominal wall - ICD9: 682.2, ICD10: L03.311 - rx as below, likely to continue to reocur due to sight and warmth/moisture, keep area dry and clean, f/u in office in 2 weeks. - METRONIDAZOLE 0.75 % LOTION - CEPHALEXIN 500 MG CAPSULE - SULFAMETHOXAZOLE 800 MG-TRIMETHOPRIM 160 MG TABLET 5. Wound dehiscence, - ICD9: 674.10, ICD10: O90.0 - rx as below, likely to continue to reocur due to sight and warmth/moisture, keep area dry and clean, f/u in office in 2 weeks. - METRONIDAZOLE 0.75 % LOTION - CEPHALEXIN 500 MG CAPSULE - SULFAMETHOXAZOLE 800 MG-TRIMETHOPRIM 160 MG TABLET Franco Bardales DO Return if no improvement. Follow up with Franco Bardales DO. Discussed risks, benefits, alternatives, and potential side effects of medications. Patient/Guardian expressed understanding and agreed with the plan. See patient instructions. Franco Bardales DO [address] [place] [address] EMERGENCY DEPARTMENT Observed: 11/21/2017 Status: F Source: [place] SUMMARY 2:13 PM [facility] REPOSITORY [facility] Medical Records Department [address] [place] [address] Emergency Department Summary 11/21/17 1408 MR#: [id number] Acct: [id number] Name: ROSALIE HORNE Rep #: [id number] : 1975 42 From: Perry May MD PCP: Franco Bardales DO Status: REG ER - ER Visit Summary Date of Service: 11/21/17 Chief Complaint: Abdominal wound evaluation History of Present Illness: The patient is a 42 F orbitally obese female who had a 9 years ago and has had trouble with the wound healing ever since. She states yesterday she noticed that a small area is open that was not before. It is unknown when this occurred. She has no pain or fevers, there is a much larger open area that is also not bothering her. She has trouble bandaging the area because of her obesity and the location on the underside of her pannus. Incidentally she has had about 1 week of upper respiratory infection symptoms with congestion, rhinorrhea, nonproductive cough, dry mouth. No dyspnea with exertion, wheezing, headache, facial pain, fevers. Physical Examination: Other than mild hypertension her vital signs are normal and she is well-appearing. Morbidly obese. On the underside of her pannus there is a vertical scar, there appears to be a chronic dehiscence of this at the caudal aspect of it, maybe 6 cm or so in length, superficial. There is a second 1 superior to this that is around 1-2 cm in length, also superficial and nontender. All of this area is nontender, without any signs of cellulitis or discharge or abscess. Lungs are clear to auscultation throughout, no cervical lymphadenopathy, TMs normal bilaterally. Posterior pharynx is clear. Lips are dry oral mucous membranes are moist. No sinus tenderness. Test Results: n/a Emergency Department Course and Treatment: Reassured. Her wound dehiscence is of unknown age and suturing for healing by primary intent is not indicated. We placed gauze packing/dressing with Mastisol for increased adhesion, and reevaluation with her PCP. No indication for antibiotics at this time for this, or her upper respiratory infection, which I think is viral. Advised that she could take Coricidin high blood pressure or Afrin as needed for symptoms. Treatment Plan: As above, supportive Disposition: Discharge home Impression: Chronic abdominal wound dehiscence Viral upper respiratory infection This note was generated with Streak dictation software. It may contain incorrect words, spelling, and punctuation that were not noted in review of the chart prior to signing ED Disposition - Plan for ED Patient: Disposition: Home or Assisted Living Chief Complaint: Wound Instructions: ED Burn Wound Check No Infec, ED URI Viral Referrals: Franco Bardales DO [Primary Care Provider] - 3-5 Days What to do if you have Problems For any increased pain, shortness of breath, bleeding, nausea or vomiting, chest pain, or any unexpected problems, contact your Primary Care Provider. Call [facility] ([phone]) or report to the closest Emergency Room. Call 911 if necessary. 11/21/17 1413 <Electronically signed by Perry May MD> Date Perry May MD Cosigner Signature (If Indicated): Date CC: Franco Bardales DO PROGRESS Observed: 10/09/2017 Status: COMPLETED Source: [place] 1:47 PM [facility] REPOSITORY O ID: [id number] Author: Trisha Marie (Fur Stylist) ALYCIA Redding Service: (none) Author Type: Nurse Practitioner Type: Progress Notes Filed: 10/09/2017 1:54 PM Note Text: HPI/CC: Rosalie Horne is a 42 year old female who presents for [facility] ER follow up dx: cellulitis, started on Keflex and Bactrim. Was given IV antibiotics in ER and discharged with PO regimen. Labs normal. Reports scant amount of drainage and foul odor. Denies fevers, chills, N/V, change in appetite. Also c/o frequent intermittent numbness and tingling to UE and LE R>L x month ROS as above, otherwise non-contributory. Reviewed PMHx, PSHx, social Hx, medications and allergies. PHYSICAL EXAMINATION: BP 134/86 Pulse 80 Resp 16 Wt (!) 218.6 kg (482 lb) BMI 85.4 kg/m2 General appearance: Well appearing, alert, in no acute distress, well-hydrated, well nourished., Morbidly obese Skin: panus at site with open area noted, scant amount of yellow/drain drainage, surrounding skin erythematous, foul odor present Lungs: Lungs clear to auscultation. No wheezing, rhonchi, rales Heart: RRR without murmur, gallop, or rubs. No ectopy ASSESSMENT/PLAN: 1. Cellulitis of skin - ICD9: 682.9, ICD10: L03.90 (primary diagnosis) - Continue treatment with Cephalaxin (Keflex) and bactrim - Follow up for recheck in 3 weeks or before - Start topical ointment TID 2. Numbness and tingling of left upper and lower extremity - ICD9: 782.0, ICD10: R20.0, R20.2 - EMG(NEURO/NI) Trisha Redding CNP CNOV Observed: 10/09/2017 Status: COMPLETED Source: [place] 1:20 PM [facility] REPOSITORY Office Visit (FAMPWS) RSOALIE HORNE ([id number]) 1975 F Date Time Provider Department 10/09/17 1:20 PM TRISHA REDDING) FAMPWS During your visit today, we recorded the following information about you: Pulse Respiration Blood pressure Weight 80/minute 16/minute 134/86 218.6 kg Trisha Redding CNP, CNP 10/09/2017 1:45 PM Signed Continue antibiotics as prescribed in ER. Start Bactroban ointment as ordered. Follow up in 3 weeks Trisha Redding CNP, CNP 10/09/2017 1:54 PM Signed HPI/CC: Rosalie Horne is a 42 year old female who presents for [facility] ER follow up dx: cellulitis, started on Keflex and Bactrim. Was given IV antibiotics in ER and discharged with PO regimen. Labs normal. Reports scant amount of drainage and foul odor. Denies fevers, chills, N/V, change in appetite. Also c/o frequent intermittent numbness and tingling to UE and LE RANDgt;L x month ROS as above, otherwise non-contributory. Reviewed PMHx, PSHx, social Hx, medications and allergies. PHYSICAL EXAMINATION: BP 134/86 Pulse 80 Resp 16 Wt (!) 218.6 kg (482 lb) BMI 85.4 kg/m2 General appearance: Well appearing, alert, in no acute distress, well-hydrated, well nourished., Morbidly obese Skin: panus at site with open area noted, scant amount of yellow/drain drainage, surrounding skin erythematous, foul odor present Lungs: Lungs clear to auscultation. No wheezing, rhonchi, rales Heart: RRR without murmur, gallop, or rubs. No ectopy ASSESSMENT/PLAN: 1. Cellulitis of skin - ICD9: 682.9, ICD10: L03.90 (primary diagnosis) - Continue treatment with Cephalaxin (Keflex) and bactrim - Follow up for recheck in 3 weeks or before - Start topical ointment TID 2. Numbness and tingling of left upper and lower extremity - ICD9: 782.0, ICD10: R20.0, R20.2 - EMG(NEURO/NI) Trisha Redding CNP Referring Provider: SELF [200] Allergies As of Date: 10/09/2017 Noted Allergy Reaction ASA (ASPIRIN) 01/20/2012 14 - Other: See Comments Comments: Upset stomach BEES 07/21/2005 7 - Swelling BENADRYL (DIPHENHYDRAMINE HCL) 07/21/2005 4 - Hives CODEINE 07/21/2005 1 - Mental Status Change Comments: HALLUCINATIONS IBUPROFEN 07/21/2005 8 - GI Upset PENICILLINS 05/10/2015 8 - GI Upset Date Reviewed: 10/09/2017 Reviewed by: Satish Hernandez LPN - Fully Assessed Reason for Visit: ED Follow-up [821] Cmt: [facility] ER follow up dx: cellulitis, started on Keflex and Bactrim Primary Visit Diagnosis:Cellulitis of skin [L03.90] Other Visit Diagnosis:Numbness and tingling of left upper and lower extremity [R20.0, R20.2] Order(s):omeprazole (PRILOSEC) 20 mg capsuleTake 1 capsule by mouth once daily.Disp: 60 capsuleRfl: 11 mupirocin (BACTROBAN) 2 % ointmentApply 1 application to affected area twice daily.Disp: 30 gRfl: 0 EMG(NEURO/NI) [20110103] Order #: [id number]: 1 FUTURE Prescriptions as of 10/09/2017 Sig: OMEPRAZOLE 20 MG CAPSULE,RACHID* Take 1 capsule by mouth once * LEVOTHYROXINE 25 MCG TABLET Take 1 tablet by mouth once d* LEVOTHYROXINE 200 MCG TABLET Take 1 tablet by mouth once d* SERTRALINE 100 MG TABLET Take 1 tablet by mouth once d* LISINOPRIL 10 MG-HYDROCHLOROT* Take 1 tablet by mouth once d* MONTELUKAST 10 MG TABLET Take 1 tablet by mouth once d* LORATADINE 10 MG TABLET Take 1 tablet by mouth once d* NYSTATIN 100,000 UNIT/GRAM TO* Apply 1 application to affect* METRONIDAZOLE 0.75 % TOPICAL * Insert 1 applicator-full vagi* BLOOD-GLUCOSE METER KIT Glucose Meter of Choice - Kit* BLOOD SUGAR DIAGNOSTIC STRIPS Test blood sugar(s) 1 times d* LANCETS Test blood sugar(s) 1 times d* LANCING DEVICE Test blood sugar(s) 1 times d* LEVONORGESTREL-ETHINYL ESTRAD* Take 1 tablet by mouth once d* BUPROPION HCL SR 150 MG TABLE* Take 1 tablet by mouth as dir* LEVONORGESTREL-ETHINYL ESTRAD* Take 1 tablet by mouth once d* NYSTATIN 100,000 UNIT/GRAM TO* Apply 1 application to affect* TRIAMCINOLONE ACETONIDE 0.1 %* Apply 1 application to affect* ALBUTEROL SULFATE HFA 90 MCG/* Inhale 2 Puffs as instructed * MULTIVITAMIN TABLET Take 1 tablet by mouth once d* DICLOFENAC 1 % TOPICAL GEL Apply 1 g to affected area fo* ONDANSETRON HCL 4 MG TABLET Take 1 tablet by mouth three * EPINEPHRINE 0.3 MG/0.3 ML INJ* Use as needed for bee sting NAPROXEN 500 MG TABLET Take 1 tablet by mouth twice * TYLENOL ARTHRITIS 650 MG TABL* prn MUPIROCIN 2 % TOPICAL OINTMENT Apply 1 application to affect* Problem List As Of Date 10/09/2017 Noted Resolved Environmental allergies [Z91.09] INVALID FOR* Major depressive disorder, recurrent episode (H*INVALID FOR* More... Obesity, Unspecified [E66.9] INVALID FOR*09/19/2009 Hypothyroidism [E03.9] INVALID FOR* Unspecified essential hypertension [I10] 03/22/2013 Adjustment disorder with depressed mood [F43.21] Unspecified asthma [J45.909] INVALID FOR* PLANTAR Fasciitis [M72.2] INVALID FOR* Calcaneal Spur [M77.30] INVALID FOR*09/19/2009 Supervision of Other High-Risk [O09.8*INVALID FOR*09/19/2009 Panic attacks [F41.0] INVALID FOR* Allergic rhinitis [J30.9] INVALID FOR* Asthma [J45.909] INVALID FOR*08/13/2017 More... Esophageal reflux [K21.9] INVALID FOR* More... Hypertension [I10] INVALID FOR* More... Gallbladder disorder [K82.9] INVALID FOR* Abnormal gallbladder ultrasound [R93.2] INVALID FOR* Need for tetanus booster [Z23] INVALID FOR* Epigastric pain [R10.13] INVALID FOR* Unspecified gastritis and gastroduodenitis with*INVALID FOR* Morbid obesity with BMI of 70 and over, adult [*INVALID FOR* Cholelithiasis [K80.20] INVALID FOR* Chest pain [R07.9] INVALID FOR* Priority: A More... SUMMARY INVALID FOR*08/13/2017 Priority: A More... Borderline diabetes [R73.03] INVALID FOR*08/13/2017 Cellulitis, abdominal wall [L03.311] INVALID FOR* IFG (impaired fasting glucose) [R73.01] INVALID FOR* Abdominal pannus [E65] INVALID FOR* Vaginal odor [N89.8] INVALID FOR* Myalgia [M79.1] INVALID FOR* Arthralgia of multiple joints [M25.50] INVALID FOR* Other instructions from your clinician: Continue antibiotics as prescribed in ER. Start Bactroban ointment as ordered. Follow up in 3 weeks Prescriptions ordered this encounter Disp Refills Start End OMEPRAZOLE 20 MG CAPSULE,DELAYED REL* 60 c* 11 10/09/2017 Route: ORAL Sig: Take 1 capsule by mouth once daily. MUPIROCIN 2 % TOPICAL OINTMENT 30 g 0 10/09/2017 Route: TOPICAL Sig: Apply 1 application to affected area twice daily. Medications Discontinued During This Encounter omeprazole (PRILOSEC) 20 mg capsule 60 c* 11 05/26/2016 10/09/2017 Route: ORAL Sig: Take 1 capsule by mouth once daily. Disc: Reason for discontinue is not on file. Encounter Status:Closed by TRISHA REDDING CNP on 10/09/17 DISCHARGE INSTRUCTION Observed: 10/01/2017 Status: F Source: [place] 2:24 PM [facility] REPOSITORY [facility] Medical Records Department [address] [place] [id number] Discharge Instruction 10/01/17 1423 MR#: [id number] Acct: [id number] Name: ROSALIE HORNE Rep #: [id number] : 1975 42 From: Elsy Levine DO PCP: Franco Bardales DO Status: REG ER ED Disposition - Plan for ED Patient: Chief Complaint: General Illness Instructions: Discharge Instructions for Cellulitis Prescriptions: Cephalexin [Keflex] 500 mg PO Q6 #40 cap Smz/Tmp Ds [Bactrim Ds] 1 tab PO BID #20 tab Referrals: Franco Bardales DO [Primary Care Provider] - 3-5 Days What to do if you have Problems For any increased pain, shortness of breath, bleeding, nausea or vomiting, chest pain, or any unexpected problems, contact your Primary Care Provider. Call [facility] ([phone]) or report to the closest Emergency Room. Call 911 if necessary. 10/01/17 1424 <Electronically signed by Elsy Levine DO> Date Elsy Levine DO Cosigner Signature (If Indicated): Date CC: Franco Bardales DO EMERGENCY DEPARTMENT Observed: 10/01/2017 Status: F Source: [place] SUMMARY 2:23 PM [facility] REPOSITORY [facility] Medical Records Department [address] [place] [address] Emergency Department Summary 10/01/17 1420 MR#: [id number] Acct: [id number] Name: ROSALIE HORNE Rep #: [id number] : 1975 42 From: Elsy Levine DO PCP: Franco Bardales DO Status: REG ER - ER Visit Summary Date of Service: 10/01/17 Chief Complaint: [Concern for sepsis] History of Present Illness: The patient is a 42 F [presents to the emergency department with erythema to her lower abdomen pannus. Patient states the erythema started yesterday. Patient states that she was admitted in May of this year for sepsis related to her urine. Patient also has a chronic wound to her prior abdominal incision for that she feels may have gotten slightly more dehisced. Patient does describe some foul odor from the wound. She denies any fever. She denies feeling lightheaded or dizzy. Patient states that she just wanted to catch things early.] Physical Examination: [HEENT-PERRLA, EOMI. Cranial nerves II through XII grossly intact. TMs clear. Mucous membranes moist. No adenopathy. Cardiovascular-regular rate and rhythm without murmur or ectopy Lungs-clear to auscultation, chest wall stable without crepitus or subcu emphysema Abdomen-normoactive bowel sounds, soft, nontender, no rebound or rigidity. Patient is morbidly obese. Patient does have some faint diffuse erythema to the lower pannus. Patient has a vertical abdominal wall incision with approximately 5 cm of dehiscence to the most distal portion. No purulent drainage noted from the wound and it appears superficial. There is some foul odor noted when the pannus is lifted off of the lower pelvic region. Extremities-intact 4, normal range of motion, normal pulses, atraumatic] Test Results: [CBC with differential obtained showed a white blood cell count of 10.0, hemoglobin 12.9, hematocrit 42, platelets 249. Chemistries unremarkable. Lactate was normal 2.0. Urinalysis was normal.] Emergency Department Course and Treatment: [Patient was given clindamycin 900 mill grams IV.] Treatment Plan: [Patient would prefer to treated as an outpatient and does not want to be admitted at this point. She tells me she is responded well to Keflex and Bactrim in the past. Patient will be started on Keflex and Bactrim.] Disposition: [Discharged to home stable condition] Impression: [Cellulitis abdominal wall/pannus] This note was generated with Streak dictation software. It may contain incorrect words, spelling, and punctuation that were not noted in review of the chart prior to signing ED Disposition - Plan for ED Patient: Chief Complaint: General Illness Referrals: Franco Bardales DO [Primary Care Provider] - What to do if you have Problems For any increased pain, shortness of breath, bleeding, nausea or vomiting, chest pain, or any unexpected problems, contact your Primary Care Provider. Call [facility] ([phone]) or report to the closest Emergency Room. Call 911 if necessary. 10/01/17 1423 <Electronically signed by Elsy Levine DO> Date Elsy Levine DO Cosigner Signature (If Indicated): Date CC: Franco Bardales DO Observed: 10/01/2017 Status: F Source: [place] CULTURE, BLOOD (WB) 2:05 PM [facility] REPOSITORY BC No growth in 5 days. Performed By: #### M200.1000 #### [facility] [address] [place], [address] URINALYSIS, COMPLETE Collected: 10/01/2017 Status: F Source: [place] 1:50 PM [facility] REPOSITORY Order Comment: Order Date: 10/01/17 Has pt arrived? Y How was Urine Obtained? CLEAN CATCH TYPE CODE TESTS RESULT OUT OF RANGE REFERENCE UNITS LAB L400.3000 Yellow COLOR Normal Yellow LAB L400.3050 Clear Normal CLARITY Sl. Cloudy LAB L400.3200 Normal mg/dl Normal GLUCOSE, UR Normal LAB L400.3300 Negative mg/dL Normal BILIRUBIN URINE Negative LAB L400.3400 Negative mg/dl Normal KETONE UR Negative LAB L400.3465 1.002-1.030 Normal SP.GR. DIPSTX 1.015 LAB L400.3550 5.0 - 8.0 pH UR Normal 6.0 LAB L400.3600 Negative mg/dl PROT Normal DIPSTX Negative LAB L400.3700 Normal mg/dl Normal UROBILI Normal LAB L400.3750 Negative Normal NITRITE UR Negative LAB L400.3780 Negative /ul Normal OCCULT BLOOD-UR Negative LAB L400.3800 Negative /ul LEUK Normal ESTERASE Negative LAB L400.4050 0-5 /hpf WBC 0 Normal SEEN LAB L400.4100 0-5 /hpf 0 Normal RBC-UA SEEN LAB L400.4150 5-10 /hpf SQUAM Normal EPI 0-5 SEEN LAB L400.4300 None Seen /hpf 0 Normal BACTERIA SEEN LAB L400.4350 <or=2+ /hpf 0 Normal MUCUS, URINE SEEN Performed By: #### L400.0001 #### [facility] [address] [place], [address] CBC W/DIFF, AUTOMATED Collected: 10/01/2017 Status: F Source: [place] 12:30 PM [facility] REPOSITORY TYPE CODE TESTS RESULT OUT OF RANGE REFERENCE UNITS LAB L100.1000 4.4-11.0 K/mm3 Normal WBC 10.0 LAB L100.1200 4.2-5.4 M/mm3 Normal RBC 4.47 LAB L100.1300 12.0-15.0 g/dl Normal HGB 12.9 LAB L100.1400 37-47 % Normal HCT 41.6 LAB L100.1500 81-99 fL Normal MCV 93.1 LAB L100.1600 27.0-32.0 pg Normal MCH 28.9 LAB L100.1700 32-36 g/gl Low MCHC 31.0 LAB L100.1810 11.6-14.6 % High RDW CV 15.5 LAB L100.1820 35.1-43.9 fl High RDW SD 52.5 LAB L100.1900 150-450 K/mm3 Normal PLT 249 LAB L100.2000 6.2-12.0 fl Normal MPV 10.8 LAB L100.2100 47-70 % Normal NEUT% 57.0 LAB L100.2200 19-41 % Normal LY% 30.7 LAB L100.2300 0-10 % Normal MONO% 4.9 LAB L100.2400 0-5 % High EO% 6.7 LAB L100.2500 0-1 % Normal BASO% 0.6 LAB L100.2550 0.0-0.9 % Normal IM GRAN % 0.100 Result Comment: IG% - Immature Granulocytes (promyelocytes, myelocytes and metamyelocytes) > 1% indicates that a LEFT SHIFT is Present. LAB L100.2620 2.0-7.7 X10 3/uL Normal Absolute Neut 5.7 LAB L100.2720 0.83-4.51 X10 3/ul Normal Absolute Lymph 3.08 Performed By: #### L100.0100 #### [facility] [address] [place], [place], [address] COMPREHENSIVE METABOLIC Collected: 10/01/2017 Status: F Source: [facility] 12:30 PM [facility] REPOSITORY TYPE CODE TESTS RESULT OUT OF RANGE REFERENCE UNITS LAB L501.0100 70-110 mg/dL Normal GLU 94 LAB L501.1000 7-18 mg/dL Normal BUN 10 LAB L501.1100 0.55-1.02 mg/dL High 1.09 CREAT,SERUM Result Comment: The validity of the calculated GFR AND GFRAA in patients over 70 years has not been determined. Clinical correlation is essential. LAB L501.1110 >60 mL/min Low EST GFR 58 Result Comment: Non- GFR Calc LAB L501.1115 >60 mL/min Normal EST GFR - AA 71 Result Comment: GFR Calc LAB L501.1255 ml/min Normal Estimated CRCL 50.74 LAB L501.1300 10-20 RATIO Low BUN/CRE 9.2 LAB L501.1500 6.4-8. g/dL Normal 2 T PROT 7.7 LAB L501.1800 3.4-5. g/dL Normal 0 ALB 3.8 Result Comment: Please note revised Albumin AND Globulin reference range effective 2017. LAB L501.1950 2.2-4.2 g/dL Normal GLOB 3.9 LAB L501.2000 0.9-2.4 RATIO Normal A/G 1.0 LAB L501.2200 8.5-10.1 mg/dL Normal CA 8.9 LAB L501.4100 15-37 U/L Normal AST 26 LAB L501.4305 45-117 U/L Low ALK P 38 LAB L501.4405 12-78 U/L Normal ALT 27 LAB L501.4600 0.20-1.00 mg/dL Normal T BILI 0.60 LAB L501.5300 136-145 mmol/L Normal NA 138 LAB L501.5600 3.5-5.1 mmol/L Normal K 4.1 LAB L501.5900 98-107 mmol/L Normal CL 101 LAB L501.6100 21.0-32.0 mmol/L Normal CO2 29.0 LAB L501.6200 5-15 Normal GAP 8 Performed By: #### L500.4050 #### [facility] [address] [place], [address] LACTIC ACID Collected: 10/01/2017 Status: F Source: MELANIE 12:30 PM [facility] REPOSITORY Order Comment: Yes/No query for Sepsis Lactate Rule Y TYPE CODE TESTS RESULT OUT OF RANGE REFERENCE UNITS LAB L503.6005 0.4-2.0 mmol/L Normal LACTIC ACID 2.0 Result Comment: Critical Result(s) Called at: 13:10:52 10/01/2017 by: Alex Bailey RN (ER). Performed By: #### L503.6005 #### [facility] [address] [place], [address] Observed: 10/01/2017 Status: F Source: MELANIE CULTURE, BLOOD (WB) 12:30 PM [facility] REPOSITORY BC No growth in 5 days. Performed By: #### M200.1000 #### [facility] [address] [place], [address] ALLERGIES ALLERGIES DATE TYPE / NAME / CODE REACTION SEVERITY SOURCE CODE 09/17/2018 Drug diphenhydramine Hives Unknown [place] Allergy/41 HCl/[id number](RXNORM Community 9357370([facility]) Repository 09/17/2018 Drug Penicillins/[id number] Nausea Unknown [place] Allergy/41 6(RXNORM) Community 0397850([facility]) Repository 09/17/2018 Drug codeine/[id number](RX Other Unknown [place] Allergy/41 NORM) Community 6702206([facility]) Repository 09/17/2018 Drug aspirin/[id number](RX Upset Stomach Unknown [place] Allergy/41 NORM) Community 9857384([facility]) Repository 09/17/2018 Drug ibuprofen/[id number]( Upset Stomach Unknown [place] Allergy/41 RXNORM) Community 9403150([facility]) Repository 09/17/2018 Drug venom-honey Anaphylaxis Unknown [place] Allergy/41 bee/[id number](RXNORM Community 2684875([facility]) Repository 09/17/2018 Drug metronidazole/[id number] Rash Unknown [place] Allergy/41 958(RXNORM) Community 3040694([facility]) Repository 03/08/2018 DRUG METRONIDAZOLE HCL OTHER: SEE C [place] INGREDI/41 Clinic Main 1150671([facility]) Repository 05/10/2015 Drug PENICILLINS GI UPSET [place] Class/4195 Clinic Main [address]([facility] ED CT) Repository 01/20/2012 DRUG ASPIRIN OTHER: SEE C [place] INGREDI/41 [facility] 07/21/2005 Environ/42 BEES SWELLING [place] 7697060([facility] Main OMED CT) [place] Repository 07/21/2005 DRUG DIPHENHYDRAMINE HCL HIVES [place] INGREDI/41 Clinic Main 6524222([facility] CT) Repository 07/21/2005 DRUG CODEINE Mental Chg [place] INGREDI/41 [facility] 07/21/2005 DRUG IBUPROFEN GI UPSET [place] INGREDI/41 Clinic Main 7052950([place] OMED CT) Repository NG/0514918 ASPIRIN [facility] Repository NG/7853024 BEES [facility] 06([facility]) Repository NG/3985547 DIPHENHYDRAMINE HCL [facility] 06([facility] [employer] [facility]) Repository NG/1310823 CODEINE [facility] 06([facility] CT) Repository NG/1206368 METRONIDAZOLE HCL [facility] 06([facility] [employer] [facility]) Repository NG/3341365 IBUPROFEN [facility] 06([facility] CT) Repository NG/8317390 PENICILLINS [facility] 06([facility] CT) Repository ENCOUNTERS ENCOUNTERS ADMIT/DISCHARGE ACCOUNT NUMBER ADMITTING ENCOUNTER LOCATION SOURCE CLASS 09/21/2018 [id number] Ambulatory BMSBuilding: [place] BMS.[facility] Repository 09/21/2018 [id number] Ambulatory BMSBuilding: [place] BMS.[facility] Repository 09/21/2018 [id number] Ambulatory BMSBuilding: [place] BMS.CF.[facility] Repository 09/21/2018 [id number] [facility] Repository : WUU32Dzk: 1 09/06/2018 [id number] Ambulatory BMSBuilding: [place] BMS.[facility] Repository 09/06/[id number] [facility] ding:WC Repository 08/23/2018 [id number] [facility] [place] [facility] 08/23/2018/09/03/20 [id number] Ambulatory [address] ding:WC Repository 08/16/2018 [id number] Ambulatory BMSBuilding: [place] BMS.CF.[facility] Repository 08/02/2018 [id number] [facility] [place] [facility] 08/02/2018/08/04/20 [id number] Ambulatory [address] ding:WC Repository 06/29/2018/06/29/20 [id number] Emergency [address] ding:ED Repository 05/06/2018/05/21/20 [id number] White, Cuca Inpatient [place] Melanie 18 Encounter [facility] ding:HT4Vzfv Repository : GX119Wos: 1 05/06/2018 [id number] White, Cuca Ambulatory BMSBuilding: [place] BMS.[facility] Repository 05/06/2018 [id number] White, Cuca Ambulatory BMSBuilding: [place] BMS.[facility] Repository 05/06/2018 [id number] White, Cuca Ambulatory BMSBuilding: [place] BMS.[facility] Repository 05/06/2018 [id number] White, Cuca Ambulatory BMSBuilding: [place] BMS.[facility] Repository 05/06/2018 [id number] White, Cuca Ambulatory BMSBuilding: [place] BMS..[facility] Repository 05/06/2018 [id number] White, Cuca Ambulatory BMSBuilding: [place] BMS..[facility] Repository 05/06/2018 [id number] White, Cuca Ambulatory BMSBuilding: [place] BMS.[facility] Repository 05/06/2018 [id number] White, Cuca Ambulatory BMSBuilding: [place] BMS..[facility] Repository 05/06/2018 [id number] White, Cuca Ambulatory BMSBuilding: [place] BMS.[facility] Repository 05/06/2018 [id number] White, Cuca Ambulatory BMSBuilding: [place] BMS.[facility] Repository 05/06/2018 [id number] White, Cuca Ambulatory BMSBuilding: [place] BMS.[facility] Repository 05/06/2018 [id number] White, Cuca Ambulatory BMSBuilding: [place] BMS.[facility] Repository 05/06/2018 [id number] White, Cuca Ambulatory BMSBuilding: [place] BMS.[facility] Repository 05/06/2018 [id number] White, Cuca Ambulatory BMSBuilding: [place] BMS.[facility] Repository 05/06/2018 [id number] White, Cuca Ambulatory B[facility]Building: [place] [facility] 05/06/2018 [id number] White, Cuca Ambulatory BMSBuilding: [place] BMS.[facility] Repository 05/06/2018 [id number] White, Cuca Ambulatory BMSBuilding: [place] BMS.[facility] Repository 05/06/2018 [id number] White, Cuca Ambulatory BMSBuilding: [place] BMS.[facility] Repository 05/06/2018 [id number] White, Cuca Ambulatory BMSBuilding: [place] BMS.[facility] Repository 05/06/2018 [id number] White, Cuca Ambulatory BMSBuilding: [place] BMS.[facility] Repository 05/06/2018 [id number] White, Cuca Ambulatory BMSBuilding: [place] BMS.[facility] Repository 05/06/2018 [id number] White, Cuca Ambulatory BMSBuilding: [place] BMS.[facility] Repository 05/06/2018 [id number] White, Cuca Ambulatory BMSBuilding: [place] BMS.[facility] Repository 05/06/2018/05/21/20 [id number] Ambulatory BMSBuilding: [place] 18 [facility] Repository 05/06/2018/05/07/20 [id number] Ambulatory [address] Repository 03/31/2018/04/01/20 [id number] Ambulatory [address] Repository 03/17/2018/03/18/20 [id number] Ambulatory [address] Repository 03/08/2018/03/12/20 [id number] [facility], Inpatient [address] Repository 03/08/2018/03/12/20 [id number] [facility], Inpatient [address] MEDICAL Repository CENTERBuildi nARoom: 5207Bed: 03/08/2018/03/08/20 [id number] Emergency [address] ding:ED Repository 02/15/2018/02/16/20 [id number] Ambulatory [address] Repository 12/16/2017/12/17/19 [id number] Ambulatory [address] Repository 12/16/2017/12/18/19 [id number] Ambulatory [address] Repository 11/30/2017/12/05/19 [id number] Ambulatory [address] Repository 11/21/2017/11/21/19 [id number] Emergency [place] Mel[place] [address] [place] [address] ding:ED Repository 10/09/2017/10/12/19 [id number] Ambulatory [address] Repository 10/01/2017/10/01/20 [id number] Emergency [place] Melanie 17 [facility] ding:ED Repository PAYERS PAYERS ENCOUNTER GUARANTOR PAYER SUBSCRIBER SOURCE 09/21/2018 ROSALIE E Primary ROSALIE E [place] [address] Insurance:CARESOURCEP STROUSEDOB: [facility] [place] Number: [id number] Hospital [address]Npc: 330 [id number] Repository [phone] () Date:2018-09-07 [address]ATTN: [place] [address]KB: 09/21/2018 Secondary NOT GIVENUNK [place] Insurance:SELF PAY [facility] Number: Effective Repository Date:2018-09-21 09/21/2018 ROSALIE E Primary ROSALIE E [place] [address] Insurance:CARESOURCEP STROUSEDOB: [facility] [place] Number: [id number] Hospital 70383Owe: 330 [id number] Repository [phone] () Date:2018-09-07 [address]ATTN: [place] [address]EY: 09/21/2018 Secondary NOT GIVENUNK [place] Insurance:SELF PAY [facility] Number: Effective Repository Date:2018-09-21 09/21/2018 ROSALIE E Primary ROSALIE E [place] [address] Insurance:CARESOURCEP STROUSEDOB: [facility] [place] Number: [id number] Hospital 42644Rss: (494) [id number] Repository [phone] () Date:2018-09-07 [address]ATTN: [place] [address]DF: 09/21/2018 Secondary NOT GIVENUNK [place] Insurance:SELF PAY [facility] Number: Effective Repository Date:2018-09-21 09/21/2018 ROSALIE E Primary ROSALIE E [place] [address] Insurance:CARESOURCEP [place]OUSEDOB: [place] Number: [id number] Hospital 04334Rub: [phone]) [id number] Repository [phone] () Date:2018-09-07 [address]ATTN: [place] [address]UF: 09/21/2018 Secondary NOT GIVENUNK [place] Insurance:SELF PAY [facility] Number: Effective Repository Date:2018-09-07 09/06/2018 Yesi Grady Primary ROSALIE E [place] [address] Insurance:CARESOURCEP STROUSEDOB: [facility] [place] Number: [id number] Hospital [address]Kbv: [phone]) [id number] Repository [phone] () Date:2018-07-16 [address]ATTN: [place] [address]DH: 09/06/2018 Secondary NOT GIVENUNK [place] Insurance:SELF PAY [facility] Number: Effective Repository Date:2018-09-06 09/06/2018 Yesi Grady Primary ROSALIE E [place] [address] Insurance:CARESOURCEP STROUSEDOB: [place] Number: [id number] Hospital [address]Ekg: [phone]) [id number] Repository [phone] () Date:2018-07-16 [address]ATTN: [place] [address]IX: 09/06/2018 Secondary NOT GIVENUNK [place] Insurance:SELF PAY [facility] Number: Effective Repository Date:2018-09-04 08/23/2018 Yesi Grady Primary ROSALIE E [place] [address] Insurance:CARESOURCEP STROUSEDOB: [place] Number: [id number] Hospital [address]Lah: ([phone]) [id number] Repository [phone] () Date:2018-07-16 [address]ATTN: [place] [address]BD: 08/23/2018 Secondary NOT GIVENUNK [place] Insurance:SELF PAY [facility] Number: Effective Repository Date:2018-08-23 08/23/2018 Yesi Ysabel Primary ROSALIE E [place] [address] Insurance:CARESOURCEP STROUSEDOB: [facility] [place] Number: [id number] Hospital [address]Ffo: ([phone]) [id number] Repository [phone] () Date:2018-07-16 [address]ATTN: [place] [address]TG: 08/23/2018 Secondary NOT GIVENUNK [place] Insurance:SELF PAY [facility] Number: Effective Repository Date:2018-08-05 08/16/2018 Yesi Grady Primary ROSALIE E [place] [address] Insurance:CARESOURCEP STROUSEDOB: [facility] [place] Number: [id number] Hospital 57[address]Tfx: [phone]) [id number] Repository [phone] () Date:2018-07-16 [address]ATTN: [place] [address]GM: 08/16/2018 Secondary NOT GIVENUNK [place] Insurance:SELF PAY [facility] Number: Effective Repository Date:2018-08-16 08/02/2018 Yesi Grady Primary ROSALIE E [place] [address] Insurance:CARESOURCEP STROUSEDOB: [facility] [place] Number: [id number] Hospital 739[address]Lqa: [phone]) [id number] Repository [phone] () Date:2018-07-16 [address]ATTN: [place] [address]SV: 08/02/2018 Secondary NOT GIVENUNK [place] Insurance:SELF PAY [facility] Number: Effective Repository Date:2018-08-02 08/02/2018 Yesi Ysabel Primary ROSALIE E [place] [address] Insurance:CARESOURCEP STROUSEDOB: [place] Number: [id number] Hospital [address]24[address]Bmc: ([phone]) [id number] Repository [phone] () Date:2018-07-16 [address]ATTN: [place] [address]NO: 08/02/2018 Secondary NOT GIVENUNK [place] Insurance:SELF PAY [facility] Number: Effective Repository Date:2018-07-16 06/29/2018 Yesi N Primary ROSALIE E [place] [address] Insurance:CARESOURCEP STROUSEDOB: [place] Number: [id number] Hospital [address]Tna: ([phone]) [id number] Repository [phone] () Date:2018-06-29P [address]ATTN: [place] [address]FX: 06/29/2018 Secondary NOT GIVENUNK [place] Insurance:SELF PAY [facility] Number: Effective Repository Date:2018-06-29 05/06/2018 Yesi Ysabel Primary ROSALIE E [place] [address] Insurance:CARESOURCEP STROUSEDOB: [place] Number: [id number] Hospital 27[address]Yhm: ([phone]) [id number] Repository [phone] () Date:2018-05-06P [address]ATTN: [place] [address]SE: 05/06/2018 Secondary NOT GIVENUNK [place] Insurance:SELF PAY [facility] Number: Effective Repository Date:2018-05-06 05/06/2018 Yesi Grady Primary ROSALIE E [place] [address] Insurance:CARESOURCEP STROUSEDOB: [place] Number: [id number] Hospital [address]99[address]Gmg: ([phone]) [id number] Repository [phone] () Date:2018-05-06P [address]ATTN: [place] [address]OD: 05/06/2018 Secondary NOT GIVENUNK [place] Insurance:SELF PAY [facility] Number: Effective Repository Date:2018-05-06 05/06/2018 Yesi Ysabel Primary ROSALIE E [place] [address] Insurance:CARESOURCEP STROUSEDOB: [facility] [place] Number: [id number] Hospital 795[address]Cqe: ([phone]) [id number] Repository [phone] () Date:2018-05-06 [address]ATTN: [place] [address]QD: 05/06/2018 Secondary NOT GIVENUNK [place] Insurance:SELF PAY [facility] Number: Effective Repository Date:2018-05-06 05/06/2018 Yesi Ysabel Primary ROSALIE E [place] [address] Insurance:CARESOURCEP STROUSEDOB: [facility] [place] Number: [id number] Hospital 317[address]Djk: ([phone]) [id number] Repository [phone] () Date:2018-05-06 [address]ATTN: [place] [address]TF: 05/06/2018 Secondary NOT GIVENUNK [place] Insurance:SELF PAY [facility] Number: Effective Repository Date:2018-05-06 05/06/2018 Yesi N Primary ROSALIE E [place] [address] Insurance:CARESOURCEP STROUSEDOB: [facility] [place] Number: [id number] Hospital 348[address]Spb: ([phone]) [id number] Repository [phone] () Date:2018-05-06P [address]ATTN: [place] [address]OY: 05/06/2018 Secondary NOT GIVENUNK [place] Insurance:SELF PAY [facility] Number: Effective Repository Date:2018-05-06 05/06/2018 Yesi Ysabel Primary ROSALIE E [place] [address] Insurance:CARESOURCEP STROUSEDOB: [place] [address] Number: [id number] Hospital 9[address]Jrn: ([phone]) [id number] Repository [phone] () Date:2018-05-06P [address]ATTN: [place] [address]FK: 05/06/2018 Secondary NOT GIVENUNK [place] Insurance:SELF PAY [facility] Number: Effective Repository Date:2018-05-06 05/06/2018 Yesi Ysabel Primary ROSALIE E [place] [address] Insurance:CARESOURCEP STROUSEDOB: [facility] [address] Number: [id number] Hospital 6[address]Ekb: ([phone]) [id number] Repository [phone] () Date:2018-05-06P [address]ATTN: [place] [address]DY: 05/06/2018 Secondary NOT GIVENUNK [place] Insurance:SELF PAY [facility] Number: Effective Repository Date:2018-05-06 05/06/2018 Yesi Ysabel Primary ROSALIE E [place] [address] Insurance:CARESOURCEP STROUSEDOB: [facility] [address] Number: [id number] Hospital 6[address]Ins: ([phone]) [id number] Repository [phone] () Date:2018-05-06P [address]ATTN: [place] [address]IJ: 05/06/2018 Secondary NOT GIVENUNK [place] Insurance:SELF PAY [facility] Number: Effective Repository Date:2018-05-06 05/06/2018 Yesi Ysabel Primary ROSALIE E [place] [address] Insurance:CARESOURCEP STROUSEDOB: [place] Number: [id number] Hospital 355[address]Xrq: ([phone]) [id number] Repository [phone] () Date:2018-05-06P [address]ATTN: [place] [address]IK: 05/06/2018 Secondary NOT GIVENUNK [place] Insurance:SELF PAY [facility] Number: Effective Repository Date:2018-05-06 05/06/2018 Yesi Ysabel Primary ROSALIE E [place] [address] Insurance:CARESOURCEP STROUSEDOB: [facility] [place] Number: [id number] Hospital 840[address]Sbn: ([phone]) [id number] Repository [phone] () Date:2018-05-06 [address]ATTN: [place] [address]PW: 05/06/2018 Secondary NOT GIVENUNK [place] Insurance:SELF PAY [facility] Number: Effective Repository Date:2018-05-06 05/06/2018 Yesi Grady Primary ROSALIE E [place] [address] Insurance:CARESOURCEP STROUSEDOB: [facility] Number: [id number] Hospital 335[address]Hkn: ([phone]) [id number] Repository [phone] () Date:2018-05-06 [address]ATTN: [place] [address]YK: 05/06/2018 Secondary NOT GIVENUNK [place] Insurance:SELF PAY [facility] Number: Effective Repository Date:2018-05-06 05/06/2018 Yesi Grady Primary ROSALIE E [place] [address] Insurance:CARESOURCEP STROUSEDOB: [facility] [place] Number: [id number] Hospital 16671Nyi: ([phone]) [id number] Repository [phone] () Date:2018-05-06P [address]ATTN: [place] [address]VC: 05/06/2018 Secondary NOT GIVENUNK [place] Insurance:SELF PAY [facility] Number: Effective Repository Date:2018-05-06 05/06/2018 Yesi Ysabel Primary ROSALIE E [place] [address] Insurance:CARESOURCEP STROUSEDOB: [place] Number: [id number] Hospital 956[address]Emk: ([phone]) [id number] Repository [phone] () Date:2018-05-06P [address]ATTN: [place] [address]HD: 05/06/2018 Secondary NOT GIVENUNK [place] Insurance:SELF PAY [facility] Number: Effective Repository Date:2018-05-06 05/06/2018 Yesi Ysabel Primary ROSALIE E [place] [address] Insurance:CARESOURCEP STROUSEDOB: [place] [address] Number: [id number] Hospital 80[address]Tqf: ([phone]) [id number] Repository [phone] () Date:2018-05-06P [address]ATTN: [place] [address]JZ: 05/06/2018 Secondary NOT GIVENUNK [place] Insurance:SELF PAY [facility] Number: Effective Repository Date:2018-05-06 05/06/2018 Yesi Ysabel Primary ROSALIE E [place] [address] Insurance:CARESOURCEP STROUSEDOB: [place] Number: [id number] Hospital 913[address]Vtz: (219) [id number] Repository [phone] () Date:2018-05-06P [address]ATTN: [place] [address]JU: 05/06/2018 Secondary NOT GIVENUNK [place] Insurance:SELF PAY [facility] Number: Effective Repository Date:2018-05-06 05/06/2018 Yesi Ysabel Primary ROSALIE E [place] [address] Insurance:CARESOURCEP STROUSEDOB: [place] Number: [id number] Hospital 82810Hzw: ([phone]) [id number] Repository [phone] () Date:2018-05-06P [address]ATTN: [place] [address]EO: 05/06/2018 Secondary NOT GIVENUNK [place] Insurance:SELF PAY [facility] Number: Effective Repository Date:2018-05-06 05/06/2018 Yesi Grady Primary ROSALIE E [place] [address] Insurance:CARESOURCEP STROUSEDOB: [facility] [place] Number: [id number] Hospital [address]Inu: (108) [id number] Repository [phone] () Date:2018-05-06P [address]ATTN: [place] [address]HZ: 05/06/2018 Secondary NOT GIVENUNK [place] Insurance:SELF PAY [facility] Number: Effective Repository Date:2018-05-06 05/06/2018 Yesi Grady Primary ROSALIE E [place] [address] Insurance:CARESOURCEP STROUSEDOB: [facility] [place] Number: [id number] Hospital 579[address]Ibx: ([phone]) [id number] Repository [phone] () Date:2018-05-06P [address]ATTN: [place] [address]CQ: 05/06/2018 Secondary NOT GIVENUNK [place] Insurance:SELF PAY [facility] Number: Effective Repository Date:2018-05-06 05/06/2018 Yesi Grady Primary ROSALIE E [place] [address] Insurance:CARESOURCEP STROUSEDOB: [facility] [place] Number: [id number] Hospital 66[address]Eyg: ([phone]) [id number] Repository [phone] () Date:2018-05-06P [address]ATTN: [place] [address]DS: 05/06/2018 Secondary NOT GIVENUNK [place] Insurance:SELF PAY [facility] Number: Effective Repository Date:2018-05-06 05/06/2018 Yesi Ysabel Primary ROSALIE E [place] [address] Insurance:CARESOURCEP STROUSEDOB: [place] [address] Number: [id number] Hospital [address]Vto: ([phone]) [id number] Repository [phone] () Date:2018-05-06P [address]ATTN: [place] [address]VA: 05/06/2018 Secondary NOT GIVENUNK [place] Insurance:SELF PAY [facility] Number: Effective Repository Date:2018-05-06 05/06/2018 Yesi Ysabel Primary ROSALIE E [place] [address] Insurance:CARESOURCEP STROUSEDOB: [place] [address] Number: [id number] Hospital 613[address]Kul: ([phone]) [id number] Repository [phone] () Date:2018-05-06P [address]ATTN: [place] [address]IL: 05/06/2018 Secondary NOT GIVENUNK [place] Insurance:[facility] [facility] Number: Effective Repository Date:2018-05-06 05/06/2018 Yesi Ysabel Primary ROSALIE E [place] [address] Insurance:CARESOURCEP STROUSEDOB: [place] [address] Number: [id number] Hospital [address]Fer: [phone] [id number] Repository [phone] () Date:2018-05-06[address]ATTN: [place] [address]TE: 05/06/2018 Secondary NOT GIVENUNK Melanie Insurance:SELF PAY [facility] Number: Effective Repository Date:2018-05-06 05/06/2018 Yesi Ysabel Primary ROSALIE E [place] [address] Insurance:CARESOURCEP STROUSEDOB: [place] [address] Number: [id number] Hospital [address]Uiv: [phone] [id number] Repository [phone] () Date:2018-05-06[address]ATTN: [place] [address]EY: 05/06/2018 Secondary NOT GIVENUNK [place] Insurance:SELF PAY [facility] Number: Effective Repository Date:2018-05-06 05/06/2018 Yesi Grady Primary ROSLAIE E [place] [address] [address] Insurance:CARESOURCEP STROUSEDOB: [address] Number: [id number] Hospital [address]Mht: [phone]) [id number] Repository [phone] () Date:2018-05-06[address]ATTN: [place] [address]CK: 05/06/2018 Secondary NOT GIVENUNK [place] Insurance:SELF PAY [facility] Number: Effective Repository Date:2018-05-06 05/06/2018 Yesi Grady Primary ROSALIE E [place] [address] [address] Insurance:CARESOURCEP [address] Number: [id number] Hospital [address]Dni: [phone] [id number] Repository [phone] () Date:2018-05-06[address]ATTN: [place] [address]CE: 05/06/2018 Secondary NOT GIVENUNK [place] Insurance:SELF PAY [facility] Number: Effective Repository Date:2018-05-06 03/08/2018 ROSALIE E Primary ROSALIE E [facility] STROUSEDOB: Insurance:CARESOURCE STROUSEDOB: [facility] [id number] BOX MEDICAIDPolicy [id number] [place] Number: [id number]: [phone] [id number] [phone] () Date: 03/08/2018 Yesi Grady Primary ROSALIE E [place] [address] Insurance:CARESOURCEP STROUSEDOB: [facility] [place] Number: [id number] Hospital [address]Jzq: [phone] [id number] Repository [phone] () Date:2018-03-08[address]ATTN: [place] [address]LF: 03/08/2018 Secondary NOT GIVENUNK [place] Insurance:SELF PAY [facility] Number: Effective Repository Date:2018-03-08 11/21/2017 Yesi Ysabel Primary ROSALIE E [place] [address] Insurance:CARESOURCEP STROUSEDOB: [facility] [address] [place] Number: [id number] Hospital [address]Dqm: [phone] [id number] Repository [phone] () Date:2017-11-21[address]ATTN: [place] [address]MF: 11/21/2017 Secondary NOT GIVENUNK [place] Insurance:SELF PAY [facility] Number: Effective Repository Date:2017-11-21 10/01/2017 Yesi Ysabel Primary ROSALIE E [place] [address] Insurance:CARESOURCEP STROUSEDOB: [facility] [address] [place] Number: [id number] Hospital [address]Gdu: [phone] [id number] Repository [phone] () Date:2017-10-01[address]ATTN: [place] [address]MQ: 10/01/2017 Secondary NOT GIVENUNK [place] Insurance:SELF PAY [facility] Number: Effective Repository Date:2017-10-01
== END 2018-10-04 23:59 ==
LOC: WC 08:31
PROVIDERS: Family Provider Student in an Organized Health Care Education/Training Program; PCP Student in an Organized Health Care Education/Training Program; Visit Provider Surgery
DX: L98.492 Non-pressure chronic ulcer of skin of other sites with fat layer exposed (principal); R73.09 Other abnormal glucose; E66.01 Morbid (severe) obesity due to excess calories; Z71.3 Dietary counseling and surveillance; L30.4 Erythema intertrigo; E65 Localized adiposity
CPT/HCPCS: 11042; 11045

== ENCOUNTER 2018-09-21 13:42 | Inpatient (IN) | payer MEDICAID, SELFPAY ==
--- NOTE | 2018-09-20 19:57 | PCM.HP.BLA ---
History and Physical Date of Admission: 09/21/18 HISTORY OF PRESENT ILLNESS The patient is a 43 year old F with a history of morbid obesity and borderline diabetes who presents with worsening pain and swelling in her massive abdominal panniculus mostly on the right side. The left side is much softer. This has a persistent nonhealing ulcer in the central aspect of the lower abdominal panniculus. She was hospitalized in May, and had surgery where she underwent surgical preparation lower anterior abdominal wall massive panniculus with excisional debridement nonhealing ulcer and skin and subcutaneous tissue for necrotizing soft tissue infection and panniculectomy (777 cm2). Operative cultures showed Methicillin resistant Staphylococcus hominis hominis and Anaerobes. She was treated with Vancomycin and Cleocin. She has a persistent ulceration centrally in the lower abdominal panniculus and is doing daily Silver dressing changes. She denies any fever. With the increasing pain and swelling in the right side of her massive panniculus, she presents today to begin surgical debridement. PAST MEDICAL HISTORY abdominal wall skin crease intertrigo. Abdominal panniculus, symptomatic. Skin ulcer of abdominal wall with fat layer exposed. Anxiety and depression. Allergic rhinitis. MARCE (obstructive sleep apnea). Obesity, Class III, BMI 40-49.9. Asthma. Prediabetes. Hypertension. Hypothyroid. PAST SURGICAL HISTORY ?3, cholecystectomy, tonsillectomy. Surgical preparation lower anterior abdominal wall massive panniculus with excisional debridement nonhealing ulcer and skin and subcutaneous tissue for necrotizing soft tissue infection and panniculectomy (777 cm2) - 05/11/18. ALLERGIES diphenhydramine HCl [From Benadryl] metronidazole [From Flagyl] venom-honey bee [bee venom (honey bee)] aspirin codeine ibuprofen Penicillins MEDICATIONS Tylenol. Albuterol. HCTZ. Synthroid. Claritin. Singulair. Aleve. Nystatin Powder. Prilosec. Zofran. OxyIR. Zoloft. 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 Smoking Status: Never smoker Tobacco Use: Non-smoker Alcohol: None Drugs: None FAMILY HISTORY Maternal - Patient notes a maternal and paternal family history of heart disease, diabetes, high cholesterol, cancer. Paternal - Patient notes a maternal and paternal family history of heart disease, diabetes, high cholesterol, cancer. REVIEW OF SYSTEMS General - Denies fever, fatigue, and weight loss. Eyes - Denies cataracts and glaucoma. ENT - Denies nasal congestion and sore throat. Endocrine - Denies excessive thirst and urination. Has borderline diabetes. Skin - Denies skin cancer. Has massive abdominal panniculus with non healing infected ulcer and panniculitis. Musculoskeletal - Denies joint pain, joint stiffness, weakness of muscles and joints, back pain, and arthritis. Neuro - Denies headaches. Cardiovascular - Denies chest pain, fatigue, and shortness of breath with exertion. Psych - Denies anxiety and depression. Respiratory - Denies chronic cough and shortness of breath. Gastrointestinal - Denies nausea, vomiting, diarrhea, and constipation. Hematologic - Denies abnormal bruising and bleeding. Genitourinary - Denies hematuria and urinary frequency. PHYSICAL EXAMINATION General - Alert and Oriented HEENT - PERRL. EOMI. Throat is clear. Neck - Supple and nontender. No cervical adenopathy. Lungs - Clear to auscultation. Heart - Regular rate and rhythm. Abdomen - Firm dependent edema present. No purulent drainage noted. Lower midline scar from umbilicus to pubis. Extensive abdominal wall skin crease intertrigo. Lower midline ventral hernia. Massive abdominal panniculus with right sided panniculitis from the way she is lying in the bed. She is rotated toward the right leading to increased dependent edema. Right side area of panniculitis measures about 65 cm. Tender to palpation. Has nonhealing ulcer in central aspect of lower abdominal wall panniculus. Extremities - FROM. No axillary adenopathy. Radial pulses are palpable. Neuro - CN II-XII grossly intact. Psych - Normal mood and affect. ASSESSMENT 1. 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 2. Nonhealing ulcer central aspect lower anterior abdominal wall. 3. Borderline diabetes. 4. Abdominal wall skin crease intertrigo. 5. Morbid obesity. 6. Incisional hernia. 7. History of methicillin resistant Staphylococcus hominis hominis. PLAN With her previous operative culture in May that showed a Methicillin resistant Staphylococcus hominis hominis, will treat her perioperatively with Vancomycin. Continue Silver dressing changes daily. The right side of her large abdominal pannus has dependent edema and is at risk for another necrotizing infection. When she was in the hospital, it was discussed with her that she would need multiple panniculectomy procedures because of the risk of excising the massive panniculus all at once. Also the central portion would be excised last because of the presence of the hernia. At that time would need assistance from General Surgery for repair of the hernia. Will schedule the panniculectomy under general anesthesia with a surgical observation overnight stay in the hospital. The VAC will be applied the following day. Her Prealbumin from 05/12/18 was 21.1. Encourage nutritional supplementation with protein to help the healing process. Patient was informed of the risks and complications of the procedure including alternatives to surgery. These were discussed with her personally. She voices understanding and wishes to proceed. She understands that multiple procedures will be necessary. I will be conservative in my excision to minimize problems postoperatively. One of the limiting factors is the amount of blood loss during the surgery. I anticipate about 450-500 ml blood loss that I will tolerate before stopping the surgery. After some healing has occurred, I can proceed with additional operative excision. Any tissue that is removed would be sent to Pathology for analysis to rule out carcinoma and to Microbiology for culture. A positive culture may necessitate antibiotic modification.
[2018-09-21] VITALS (29 sets, daily range): BP systolic 50–133; BP diastolic 27–89; PULSE 101–132; RESP 12–24; TEMP 36.1–36.5; O2SAT 98–100; BMI 78.7; BMI 78.4
[2018-09-21 07:47] LABS: Absolute Lymphocyte Count 2.33 X10^3/ul (0.83-4.51); Absolute Neutrophil Count 4.4 X10^3/uL (2.0-7.7); Basophil# 0.02 X10^3/uL; Basophil% 0.3 % (0-1); Eosinophil# 0.39 X10^3/uL; Eosinophils% 5.2 % (0-5); Hematocrit 36.7 % (37-47); Hemoglobin 10.6 g/dl (12.0-15.0); Lymphocyte # 2.33 X10^3/ul (4.0); Lymphocyte % 30.9 % (19-41); Mean Corp Hgb Conc 28.9 g/gl (32-36); Mean Corpuscular Hgb 21.2 pg (27.0-32.0); Mean Corpuscular Volume 73.5 fL (81-99); Mean Platelet Vol. 10.1 fl (6.2-12.0); Monocyte# 0.44 X10^3/uL; Monocyte% 5.8 % (0-10); Neutrophil # 4.36 X10^3/uL (2.7-7.7); Neutrophil % 57.7 % (47-70); Platelet Count 306 K/mm3 (150-450); RBC Distribution Width CV 19.4 % (11.6-14.6); RBC Distribution Width SD 52.5 fl (35.1-43.9); Red Blood Count 4.99 M/mm3 (4.2-5.4); White Blood Count 7.6 K/mm3 (4.4-11.0)
[2018-09-21 07:48] LABS: POSITIVE COUNT NO; POSITIVE DIFFERENTIAL NO; POSITIVE MORPHOLOGY YES
[2018-09-21 07:49] LABS: Differential Indicated SCAN CRITERIA MET
[2018-09-21 08:02] LABS: Anion Gap 10 (5-15); BUN 10 mg/dL (7-18); BUN/Creat Ratio 15.9 RATIO (10-20); Chloride 104 mmol/L (98-107); Creatinine, Serum 0.63 mg/dL (0.55-1.02); EST Glomerular Filtration Rate 110 mL/min (>60); Est Glom Filt Rate - Afr Amer 133 mL/min (>60); Estimated Creatinine Clearance 86.89 ml/min; Glucose 108 mg/dL (74-106); Potassium 3.5 mmol/L (3.5-5.1); Sodium Level 139 mmol/L (136-145); Thyroid Stim Hormone (TSH) 0.11 uIU/mL (0.358-3.74)
[2018-09-21] MEDS: Vancomycin IV 1,000 MG/200 ML BAG 200 MG IV (08:02)
[2018-09-21 08:07] LABS: Pregnancy, Serum, hCG Quali. NEGATIVE Negative (0-9 Nonpreg)
--- NOTE | 2018-09-21 08:30 | PANN_PTH ---
PATIENT: ROSALIE RUFF LOC: [facility]2 U#:[id number] AGE/SX: 43/F ROOM: MS212 RE09/21/[address]: Dr. Jerry Madrigal DO : 1975 BED: 1 DIS: 09/26/2018 SPEC #: [id number] RECD: 09/21/18 11:24 STATUS: NIMISHA RESimeon #: [id number] TANA: 09/21/18 08:[address]: Yrn Hendricks DEPT: SURGICAL PATHOLOGY RECD BY: Uri Arguello ENTERED: 09/21/18 12:05 SP TYPE: PANNUS CHRIS DR: Dr. Franco Bardales DO Tissues: Abdomen, NOS Procedures: Surgery Specimen Level IV HEADER OPERATION: Panniculus excisional debridement ulcer, skin and subcutaneous PRE-OP DIAGNOSIS: Massive abdominal panniculus with nonhealing infected ulcer and panniculitis; abdominal wall skin crease intertrigo; morbid obesity TISSUE SUBMITTED: Tissue right pannus MICROSCOPIC DIAGNOSIS Right pannus tissue: Fat necrosis, fibrosis, granulation and associated chronic inflammation. Focal dystrophic microcalcifications. AM:jeromy 09/23/18 COMMENT The findings are consistent with panniculitis. Clinical correaltion is suggested. MICROSCOPIC DESCRIPTION Slides are reviewed. GROSS DESCRIPTION Received is one container labeled with the patient's name and not further designated. The specimen consists of multiple irregular fragments of skin with attached yellow fatty tissue ranging in size from 5 to 30 cm in greatest dimension and in aggregate weighing 4859 gm. No cutaneous lesions are identified. Serial sections reveal chalky yellow cut surfaces. The cutaneous surface does not contain mass lesions. Grinder Mill Operator sections are submitted in six cassettes. / AM:jeromy 09/22/18 TC:3 CPT: 95856
--- NOTE | 2018-09-21 11:08 | OP.PN_ITS ---
Immediate Post-Op Note Date of Procedure: 09/21/18 Primary Surgeon/Physician: Yrn Hendricks MD sales and marketing intern: Mercedes Fuchs. sales and marketing intern: Dimitris Stack. Pre-Operative Diagnosis: 1. 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 2. Nonhealing ulcer central aspect lower anterior abdominal wall. 3. Borderline diabetes. 4. Abdominal wall skin crease intertrigo. 5. Morbid obesity. 6. Incisional hernia. 7. History of methicillin resistant Staphylococcus hominis hominis. Post-Operative Diagnosis: Same. Surgery/Procedure Performed:: Surgical preparation right lateral abdominal wall massive panniculus with excisional debridement skin and subcutaneous tissue for necrotizing soft tissue infection and panniculectomy (858 cm2). Description of Surgical Findings:: The patient is a 43 year old F with a history of morbid obesity and borderline diabetes who presents with worsening pain and swelling in her massive abdominal panniculus mostly on the right side. The left side is much softer. This has a persistent nonhealing ulcer in the central aspect of the lower abdominal panniculus. She was hospitalized in May, and had surgery where she underwent surgical preparation lower anterior abdominal wall massive panniculus with excisional debridement nonhealing ulcer and skin and subcutaneous tissue for necrotizing soft tissue infection and panniculectomy (777 cm2). Operative cultures showed Methicillin resistant Staphylococcus hominis hominis and Anaerobes. She was treated with Vancomycin and Cleocin. She has a persistent ulceration centrally in the lower abdominal panniculus and is doing daily Silver dressing changes. She denies any fever. With the increasing pain and swelling in the right side of her massive panniculus, she presents today to begin surgical debridement which will be done in stages. Today the patient underwent surgical preparation right lateral abdominal wall ma ssive panniculus with excisional debridement skin and subcutaneous tissue for necrotizing soft tissue infection and panniculectomy (858 cm2). During the surgery, there were issues with hypotension and aggressive fluid resuscitation was done. Anticipate the need for PRBC postop and will order a Type and Cross. Size of defect right abdominal wall - 22 x 39 x 5 cm. I used Veronica absorbable hemostat, (I used 2 vials). Reference Number - [id number]. Lot Number - [id number]. Expiration - June 01, 2023. Estimated Blood Loss: 650 ml. Specimen's removed: Right lateral abdominal wall massive panniculus with panniculitis to Pathology and Microbiology. Drains: None. Type of Anesthesia:: General - Admit VTE Documentation VTE Present on Admission: No VTE Mechan Device Prophylaxis: SCD's VTE Pharm Prophylaxis ordered?: Yes
[2018-09-21 12:27] LABS: Hemoglobin 6.2 g/dl (12.0-15.0)
--- NOTE | 2018-09-21 13:05 | CASEMGMT ---
Referral by physician for custodial placement. Pt is not yet to the floor. SW will see pt tomorrow. Pt was here in 05/22 and went to [facility]. BEATRIS Phillips, JUNIOR ARCHITECT
--- NOTE | 2018-09-21 14:03 | RAD_ITS ---
STUDY: X-RAY CHEST REASON FOR EXAM: Female, 43 years old. Central line placement. TECHNIQUE: Single AP portable view of the chest. COMPARISON: Comparison is made with prior study dated May 06, 2018. FINDINGS: A left-sided central line catheter was placed. The tip is at the junction of the superior vena cava and left brachiocephalic vein. Mild increased linear markings in the upper lobes suggestive of a linear atelectasis and/or scarring. There is no demonstrated pleural abnormality. Normal size heart. Normal mediastinum and donn. Normal visualized pulmonary arteries. Normal visualized aortic arch and descending thoracic aorta. There are degenerative changes of the visualized thoracic spine. Normal visualized ribs, clavicles, and shoulders. There is no demonstrated abnormality of the visualized soft tissue structures of the upper abdomen. RAD/Chest 1 View (Portable) IMPRESSION: The tip of the left central line is at the junction of the superior vena cava and left brachiocephalic vein. Electronically Signed: Michel Shannon MD at 14:27 EST Tel [phone], Service support ,
--- NOTE | 2018-09-21 14:26 | PCM.RX.CS ---
Consult Pharmacy has been consulted to manage selected antiobiotic: Vancomycin Type of Consult: New start Suspected Infection: Skin/Soft tissue Prior Doses of Antibiotics Received/Current Regimen: VANCOMYCIN 1000MG IV PREOP 09/21 @0802 Labs: Sodium 139 mmol/L (136-145) 09/21/18 07:31 Potassium 3.5 mmol/L (3.5-5.1) 09/21/18 07:31 Chloride 104 mmol/L (98-107) 09/21/18 07:31 Carbon Dioxide 25.0 mmol/L (21.0-32.0) 09/21/18 07:31 Anion Gap 10 (5-15) 09/21/18 07:31 BUN 10 mg/dL (7-18) 09/21/18 07:31 Creatinine 0.63 mg/dL (0.55-1.02) 09/21/18 07:31 Est GFR (MDRD) Af Amer 133 mL/min (>60) 09/21/18 07:31 Est GFR (MDRD) Non-Af 110 mL/min (>60) 09/21/18 07:31 BUN/Creatinine Ratio 15.9 RATIO (10-20) 09/21/18 07:31 Glucose 108 mg/dL (74-106) H 09/21/18 07:31 Microbiology: Microbiology 09/21/18 11:34 Tissue - Other Gram Stain - Final Weight used for dosin kg Estimated Creatinine Clearance: 88 ML/MIN Goal Trough: 10-15 mcg/mL Pharmacy Plan for Drug Dosing: Pharmacy to manage vancomycin dosing per protocol post-op. The patient got a preop dose of 1000mg IV... due to body weight, an initial standard dose per protocol would be 2000mg followed by scheduled dosing. Since the consult was placed almost 6hrs from the time the preop dose was given, clinical judgement was used and a supplemental 1g dose to get standard dose will not be given. In lieu of this, will schedule the patient's scheduled vancomycin 8 hours from the preop dose. Will schedule the trough prior to the 4th dose of scheduled vancomycin, since the preop dose was not what would be given per protocol of the pharmacy's vancomycin dosing. PLAN/RECOMMENDATIONS 1. Vancomycin 1250mg IV Q12hrs to start 09/21 @1600 2. Trough scheduled for 09/23 @0330, prior to 4th dose of scheduled vancomycin 3. Pharmacy Service will continue to monitor and adjust dosing as required.
--- NOTE | 2018-09-21 14:41 | PCM.OPRPT ---
Problem List (1) Encounter for adjustment or management of vascular access device Status: Acute Report of Operation Date of Procedure: 09/21/18 Pre-Operative Diagnosis: Need for central venous access Post-Operative Diagnosis: Same. Surgery/Procedure Performed:: Ultrasound-guided left central line placement utilizing left IJ Description of Procedure: The patient's left neck was prepped and I was called into place a central access device. The left IJ was identified using ultrasound guidance and the skin was anesthetized with lidocaine. Using the access needle the IJ was accessed using direct visualization. There was good flow in the catheter and this was nonpulsatile. Next a guidewire was placed into this vessel and the needle was removed. A small incision was made and the dilator was placed over this as well as the central catheter. The guidewire was removed and there was nonpulsatile bleeding from the catheter. Next all the ports were aspirated and then flushed with saline. There is good draw back and flow in each of the ports. Next the skin was anesthetized with lidocaine and 2 sutures were used to suture the central line to the skin of the neck. The dressing was then placed by nursing and the drape was removed. The patient tolerated the procedure well and a chest x-ray will be obtained. Grafts/Implants Used: Triple lumen catheter
--- NOTE | 2018-09-21 15:11 | SUR.PHASEI ---
1240 LABS DRAWN, STAT EKG 1300 RADIAL ARTERIAL LINE PLACED PER DR MARLEY, PHENYLEPHRINE DRIP STARTED @10MCG/MIN 1330 CENTRAL LINE PLACED IN PACU BY DR CAZARES. 4 UNITS TRANSFUSED VIA TRANSFUSER IN PACU 1410 PHENYLEPHRINE DRIP TITRATED TO 5MCG/MIN.
--- NOTE | 2018-09-21 15:17 | SUR.PHASEI ---
1430 REPORT CALLED JENIFER COLLINS IN ICU.
--- NOTE | 2018-09-21 15:24 | PCM.CON.CC ---
Reason for Consult Date of Consultation: 09/21/18 Reason for Consultation: Hypovolemic/hemorrhagic shock History of Present Illness: The patient is a morbidly obese 43-year-old female, with a history as outlined below, who presented to the hospital for a scheduled excisional debridement and panniculectomy by Dr. Hendricks. The patient has a history of a nonhealing ulcer in the central aspect of her lower abdominal panniculus. The patient underwent a similar procedure in May 2018, at which time, operative cultures revealed staph hominis and anaerobes. Despite treatment with antibiotics, the patient had a persistent ulceration and worsening pain. Therefore, she presented to the hospital for surgical intervention. Postoperatively, I was contacted by anesthesia, who indicated that the patient was hypotensive in the PACU. A repeat H&H obtained shortly after surgery revealed a hemoglobin of 6.2 g/dL. The patient's preoperative hemoglobin was 10.6 g/dL. The patient does report a long-standing history of anemia, but has been intolerant of iron sulfate therapy. I was told by anesthesia that the intraoperative blood loss was minimal, but that the patient did receive a total of 4 L of fluid. In the PACU, both a central venous catheter and arterial line was placed. The patient was given a total of 4 units of packed red blood cells. Despite having a central venous catheter in place, phenylephrine was initiated in the PACU through a peripheral IV. The patient was then transferred to the medical intensive care unit for ongoing management. 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) Erythema intertrigo (Chronic) abdominal wall skin crease intertrigo Panniculitis (Chronic) Abdominal panniculus, symptomatic (Chronic) Skin ulcer of abdominal wall with fat layer exposed (Chronic) Incisional hernia (Chronic) Anxiety and depression (Chronic) Allergic rhinitis (Chronic) MARCE (obstructive sleep apnea) (Chronic) not on CPAP (pt refusal) Obesity, Class III, BMI 40-49.9 (morbid obesity) (Chronic) Asthma (Chronic) Super-super obese (Chronic) Prediabetes (Chronic) Hypertension (Chronic) Hypothyroid (Chronic) Allergies diphenhydramine HCl [From Benadryl] Allergy (Verified 09/17/18 14:22) Hives metronidazole [From Flagyl] Allergy (Verified 09/17/18 14:22) Rash venom-honey bee [bee venom (honey bee)] Allergy (Verified 09/17/18 14:22) Anaphylaxis aspirin Adverse Reaction (Verified 09/17/18 14:22) Upset Stomach codeine Adverse Reaction (Verified 09/17/18 14:22) Other ibuprofen Adverse Reaction (Verified 09/17/18 14:22) Upset Stomach Penicillins Adverse Reaction (Verified 09/17/18 14:22) Nausea Home Medications: Ambulatory Orders Medication Instructions Recorded Loratadine [Claritin] 10 mg PO DAILY 03/08/18 Montelukast Sodium [Singulair] 10 mg PO DAILY 03/08/18 Omeprazole [Prilosec] 20 mg PO DAILY 03/08/18 Sertraline HCl [Zoloft] 100 mg PO DAILY 03/08/18 Levothyroxine Sodium [Synthroid] 300 mcg PO DAILY 05/06/18 Naproxen Sodium [Aleve] 440 mg PO Q12H PRN PRN 05/06/18 Acetaminophen [Tylenol Tablet] 650 mg PO Q6H PRN PRN tablet 05/19/18 Albuterol Aerosols [Ventolin 2.5 mg INHALATION Q2H PRN PRN #1 05/19/18 Aerosols] box Nystatin Powder [Mycostatin Powder] 1 applic TOPICAL TID #1 bottle 05/19/18 Oxycodone [Oxyir] 5 - 10 mg PO Q4H PRN PRN 5 Days 05/19/18 #60 tab Hydrochlorothiazide [Hctz] 25 mg PO DAILY 08/02/18 Ondansetron [Zofran Odt] 4 mg PO Q12H PRN PRN 09/17/18 Surgical History: - - ?3, cholecystectomy, tonsillectomy. 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 Paternal History Items: - - Patient notes a maternal and paternal family history of heart disease, diabetes, high cholesterol, cancer. Review of Systems Constitutional: Denies: Chills, Fever, Weight Change Eyes: Denies: Blurred vision, Double vision HEENT: Denies: Head Aches, Sinus Congestion, Sinus Drainage Cardiovascular: Denies: Chest Pain, Palpitations Respiratory: Denies: Cough, Shortness of breath at rest, Sputum production Gastrointestinal: Reports: Abdominal Pain, Nausea, Vomiting Genitourinary: Denies: Dysuria Musculoskeletal: Denies: Joint Pain, Joint Tenderness Skin: Denies: Rash, Wounds Neurological: Denies: Numbness, Tingling, Focal weakness Psychiatric: Denies: Anxiety, Depression, Homicidal Ideations, Suicidal Ideations Hematologic/ Lymphatic: Reports: Anemia, Hx of blood transfusion Patient Problems: Active and Suspected Problems Encounter for adjustment or management of vascular access device (Acute) Objective: The patient's most recent lab work, culture data and imaging studies have all been personally reviewed. - Physical Exam General: Alert, Cooperative, - - Super morbidly obese. Nontoxic in appearance. HEENT: Atraumatic, PERRLA, Normocephalic Oral: No Gingival or Mucosal Lesions/ Ulcerations Neck: Supple, No Nodes, Trachea Midline, - - Large neck circumference with redundant soft tissue Lungs: No rhonchi, No wheeze, No rales, Diminished, - - Poor inspiratory effort Cardiovascular: Normal S1, Normal S2, No murmurs, Tachycardic Abdomen: Soft, Tender, - - Large pannus with postsurgical changes noted Extremities: No clubbing, No cyanosis, No edema Skin: Incision Musculoskeletal: No Muscle Wasting Lymphatic: No Cervical, Supraclavicular, or Inguinal Adenopathy Neurological: Neuro grossly intact Psych/Mental Status: Anxious Vital Signs Temp Pulse Resp BP Pulse Ox 36.1 C L 114 H 24 H 121/50 H 100 09/21/18 14:15 09/21/18 14:15 09/21/18 14:15 09/21/18 14:15 09/21/18 14:15 Oxygen Flow Rate (L/min) 6 Oxygen Delivery Method Simple Mask Weight: 415 lb Body Mass Index (BMI) 78.4 Intake and Output for Last 24 Hours 09/19/18 09/20/18 09/21/18 23:59 23:59 23:59 Intake Total 5500 / 5500 Output Total 135 / 135 Balance 5365 / 5365 Microbiology Past 72 Hours 09/21/18 11:34 Gram Stain - Final Tissue - Other Laboratory Tests Past 24 Hrs 09/21/18 09/21/18 09/21/18 07:31 07:31 07:31 WBC 7.6 RBC 4.99 Hgb 10.6 L Hct 36.7 L MCV 73.5 L MCH 21.2 L MCHC 28.9 L RDW 19.4 H RDW Differential 52.5 H Plt Count 306 MPV 10.1 Immature Gran % (Auto) 0.100 Neut % (Auto) 57.7 Lymph % (Auto) 30.9 [place] % (Auto) 5.8 Eos % (Auto) 5.2 H Baso % (Auto) 0.3 Absolute Neuts (auto) 4.4 Absolute Lymphs (auto) 2.33 Total Counted Not Reportable Differential Comment COMMENT Sodium 139 Potassium 3.5 Chloride 104 Carbon Dioxide 25.0 Anion Gap 10 BUN 10 Creatinine 0.63 Estim Creat Clear Calc 86.89 Est GFR (MDRD) Af Amer 133 Est GFR (MDRD) Non-Af 110 BUN/Creatinine Ratio 15.9 Glucose 108 H Calcium 9.0 TSH 0.11 L Serum , Qual NEGATIVE Blood Type Antibody Screen Crossmatch 09/21/18 09/21/18 09/21/18 12:05 12:05 12:05 WBC RBC Hgb 6.2 L Hct MCV MCH MCHC RDW RDW Differential Plt Count MPV Immature Gran % (Auto) Neut % (Auto) Lymph % (Auto) [place] % (Auto) Eos % (Auto) Baso % (Auto) Absolute Neuts (auto) Absolute Lymphs (auto) Total Counted Differential Comment Sodium Potassium Chloride Carbon Dioxide Anion Gap BUN Creatinine Estim Creat Clear Calc Est GFR (MDRD) Af Amer Est GFR (MDRD) Non-Af BUN/Creatinine Ratio Glucose Calcium TSH Serum , Qual Blood Type A POSITIVE Antibody Screen NEGATIVE Crossmatch See Detail See Detail Clinical Impression(s) from Imaging Studies Chest X-Ray 09/21/18 14:03 IMPRESSION: The tip of the left central line is at the junction of the superior vena cava and left brachiocephalic vein. Electronically Signed: Michel Shannon MD at 14:27 EST Tel [phone], Service support , Clinical Impression(s) from Imaging Studies Chest X-Ray 09/21/18 14:03 IMPRESSION: The tip of the left central line is at the junction of the superior vena cava and left brachiocephalic vein. Electronically Signed: Michel Shannon MD at 14:27 EST Tel [phone], Service support , Assessment/Plan Active and Suspected Problems Encounter for adjustment or management of vascular access device (Acute) RECOMMENDATIONS: 1. Discontinue phenylephrine and monitor for hemodynamic stability. 2. If the patient does become hemodynamically stable once again, and initiate Levophed through central venous line. 3. Recheck stat H&H. 4. Check free T4 level. 5. Continue antiemetics and pain control per surgery. 6. Continue broad-spectrum antibiotics. IMPRESSIONS: 1. Nonhealing ulcer of abdominal wall, now POD #0 s/p excisional debridement and panniculectomy Continue current supportive measures including supplemental IV fluid hydration, while the patient is n.p.o., along with pain control and antiemetics per surgery recommendations. Continue local wound care. Continue broad-spectrum antibiotics. 2. Hypovolemic versus hemorrhagic shock The patient was reportedly hypotensive and anemic postoperatively. Although it was reported that the blood loss intraoperatively was minimal, the patient's hemoglobin dropped by 4 g upon recheck in the PACU. She did receive 4 L of fluid intraoperatively, so it is unclear whether the repeat H&H was delusional in nature. Despite this, the patient was given 4 units of packed red blood cells through a rapid infuser in the PACU. A follow-up H&H in the ICU revealed a hemoglobin of 10.5. The patient did arrive on Eleuterio-Synephrine, which was able to be weaned off completely shortly after her arrival. She has remained hemodynamically stable without any signs of overt blood loss. Recommend monitoring hemoglobin with plans to transfuse if it drops below 7 g/dL. 3. Super morbid obesity/hypothyroidism/hypertension/anxiety/depression/asthma Complicates care, management, report recovery and prognosis. Continue home medications, once the patient is able to tolerate p.o. intake. Advance diet per surgery recommendations. TIME: 38 minutes of critical care time, independent of procedures, was spent addressing the patient's nonhealing abdominal wall ulcer, hypovolemic versus hemorrhagic shock, anemia, review of all data and collaboration with the care team. ([id number]) Code Visit 9xxxx: 23110 Critical care first hour
[2018-09-21] MEDS: Ondansetron 4 MG/2 ML Vial IV ×2 (15:28→21:00)
[2018-09-21] MEDS: HYDROmorphone 1 MG/ML Syringe IV ×2 (15:45→21:00)
[2018-09-21 15:51] LABS: Hemoglobin 10.5 g/dl (12.0-15.0)
[2018-09-21 16:15] LABS: T4 Free Direct 1.53 ng/dL (0.76-1.46)
--- NOTE | 2018-09-21 16:43 | PCM.OPRPT ---
Report of Operation Date of Procedure: 09/21/18 Pre-Operative Diagnosis: 1. 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 2. Nonhealing ulcer central aspect lower anterior abdominal wall. 3. Borderline diabetes. 4. Abdominal wall skin crease intertrigo. 5. Morbid obesity. 6. Incisional hernia. 7. History of methicillin resistant Staphylococcus hominis hominis. Post-Operative Diagnosis: Same. Surgery/Procedure Performed:: Surgical preparation right lateral abdominal wall massive panniculus with excisional debridement skin and subcutaneous tissue for necrotizing soft tissue infection and panniculectomy (858 cm2). Description of Surgical Findings:: The patient is a 43 year old F with a history of morbid obesity and borderline diabetes who presents with worsening pain and swelling in her massive abdominal panniculus mostly on the right side. The left side is much softer. This has a persistent nonhealing ulcer in the central aspect of the lower abdominal panniculus. She was hospitalized in May, and had surgery where she underwent surgical preparation lower anterior abdominal wall massive panniculus with excisional debridement nonhealing ulcer and skin and subcutaneous tissue for necrotizing soft tissue infection and panniculectomy (777 cm2). Operative cultures showed Methicillin resistant Staphylococcus hominis hominis and Anaerobes. She was treated with Vancomycin and Cleocin. She has a persistent ulceration centrally in the lower abdominal panniculus and is doing daily Silver dressing changes. She denies any fever. With the increasing pain and swelling in the right side of her massive panniculus, she presents today to begin surgical debridement which will be done in stages. Patient was informed of the risks and complications of the procedure including alternatives to surgery. These were discussed with the patient personally. Patient voices understanding and wishes to proceed. Size of defect right abdominal wall - 22 x 39 x 5 cm. I used Veronica absorbable hemostat, (I used 2 vials). Reference Number - [id number]. Lot Number - [id number]. Expiration - June 01, 2023. lead web developer: Mercedes Fuchs. lead web developer: Dimitris Stack. Type of Anesthesia:: General Specimen's removed: Right lateral abdominal wall massive panniculus with panniculitis to Pathology and Microbiology. Drains: None. Estimated Blood Loss (mL): 650 ml. Description of Procedure: Patient was taken to OR in supine position and was placed under general anesthesia. The right abdominal wall was prepped and draped in the usual fashion. SCD's were placed for DVT prophylaxis. Perioperative antibiotics were given intravenously. A brady catheter was placed. Incision was made on the right lateral abdominal wall where the greatest amount of induration and dependent edema was located. Dissection was slow as there were multiple areas of venous bleeding present that needed ligation with hemostats and cauterization. Cauterization was difficult secondary to the amount of edema present that had to be suctioned out in order to get hemostasis. No gross pus was seen, but there was evidence of necrotizing soft tissue infection in the deep subcutaneous and sub-Albino's fascial area. These areas of necrotizing soft tissue infection were excised and debrided. Hemostasis obtained with electrocautery. There was about 650 ml of blood loss. The patient developed issues with hypotension during the surgery and aggressive fluid resuscitation was done. The surgery was then terminated because of the amount of blood loss and the need to stabilize the patient. Due to the amount of blood loss, I anticipate the need for PRBC postop and will order a Type and Cross. I had discussed with the patient preoperatively, that multiple surgical procedures would be necessary in order to remove her massive pannus. I generally stop the surgery when I get into the 500 ml blood loss range. Obviously more abdominal pannus tissue needs to be excised, but will need to wait until the next surgery (I generally wait 3-6 months depending on the general medical status of the patient at the time). Tissue that was removed today will be sent to Pathology for analysis and to Microbiology for culture. She had a resistant Staph back in May and will be treated perioperatively with Vancomycin. A positive culture may necessitate antibiotic modification. The size of the defect after excision and debridement was 22 x 39 x 5 cm. The wound was irrigated with saline. I sprayed Veronica absorbable hemostat into the wound to minimize seroma formation. I used 2 vials. The wound was then dressed with Mepitel nonadherent dressing followed by Kerlix gauze and Betadine followed by dry Kerlix gauze and ABD pads compression dressing. This was followed by an abdominal binder. At the time of the dressing, the wound was stable with no evidence of active bleeding. Will check a Hgb in PACU as I anticipate it will be low and PRBC will need to be given. I will also order a Type and Cross as well. Patient tolerated the procedure with some issues with hypotension and after aggressive fluid resuscitation was sent to PACU in stable condition and anticipate will need continued fluid resuscitation which will include PRBC. Depending on how well she responds to fluid resuscitation will determine if she is sent to the floor for continued postop care or whether she needs to go to the ICU for closer monitoring overnight. Grafts/Implants Used: None. - Complications Patient had issues during surgery with hypotension. Aggressive fluid resuscitation was done. Anticipate the need for PRBC postop and ordered a Type and Cross. - Admit VTE Documentation VTE Present on Admission: No VTE Mechan Device Prophylaxis: SCD's VTE Pharm Prophylaxis ordered?: Yes Code Visit Surgery Charges CPT - 11450 ICD-10 - E65, M79.3, L98.492, M79.89, L30.4, E66.9, Z86.19, R73.03, K43.2
--- NOTE | 2018-09-21 20:06 | PN_ITS ---
Patient Problems: Active and Suspected Problems Encounter for adjustment or management of vascular access device (Acute) Subjective: Patient was seen and examined in the ICU at the request of plastic surgery who performed a surgery today for repair of a nonhealing ulcer of her right lateral abdominal panniculus. Postop, critical care was contacted by anesthesia who indicated that the patient was hypotensive in PACU, and H&H was obtained shortly after the surgery revealing a hemoglobin of 6.2. Anesthesia informed pulmonary medicine at the patient's intraoperative blood loss was minimal but the patient was given a total of 4 L of fluid and in PACU both a central venous catheter and arterial line was placed. Patient was also given 4 units of packed red blood cells. Patient was then started on phenylephrine and transferred to the ICU for ongoing care where she was seen by pulmonary medicine today. Patient's phenylephrine drip was able to be stopped in the ICU. Follow-up hemoglobin today after her blood transfusion and fluid was 10.5. At the time of my examination this evening in the ICU, patient appears alert, she appears in no distress and is not complaining of any shortness of breath or chest pain. Patient's last charted blood pressure was 127/81 with a pulse rate of 118. - Physical Exam General: Alert, Oriented x3, Cooperative, No apparent distress, Well developed, - - Patient has severe morbid obesity HEENT: Atraumatic, PERRLA, EOMI, Normocephalic Oral: Moist Mucosa Neck: Supple, No JVD, Negative Carotid Bruits, No Nuchal Rigidity, Trachea Midline, Thyroid Normal Size and Texture Lungs: Clear to auscultation, Normal air movement, No rhonchi, No wheeze, No rales Cardiovascular: Regular rate, Regular Rhythm, Normal S1, Normal S2, No murmurs, No Ectopic Activity, PMI Normal, No rub noted, Tachycardic Extremities: No clubbing, No cyanosis, Capillary Refill Less than 3 Seconds Musculoskeletal: No Tenderness to Palpation of Joints or Extremities Neurological: Cranial nerves II-XII grossly intact, Neuro grossly intact, Sensory exam intact to light touch and pain, Coordination normal Psych/Mental Status: Normal Affect, Appropriate, Alert and oriented to time, place, person, mood and affect Vital Signs Temp Pulse Resp BP Pulse Ox 97.4 F L 118 H 18 127/81 H 98 09/21/18 16:00 09/21/18 19:00 09/21/18 19:00 09/21/18 19:00 09/21/18 19:00 Oxygen Flow Rate (L/min) 2 Oxygen Delivery Method Nasal Cannula Weight: 188.241 kg Body Mass Index (BMI) 78.4 Intake and Output for Last 24 Hours 09/19/18 09/20/18 09/21/18 23:59 23:59 23:59 Intake Total 5500 / 5500 Output Total 875 / 875 Balance 4625 / 4625 Microbiology Past 72 Hours 09/21/18 11:34 Gram Stain - Final Tissue - Other Laboratory Tests Past 24 Hrs 09/21/18 09/21/18 09/21/18 07:31 07:31 07:31 WBC 7.6 RBC 4.99 Hgb 10.6 L Hct 36.7 L MCV 73.5 L MCH 21.2 L MCHC 28.9 L RDW 19.4 H RDW Differential 52.5 H Plt Count 306 MPV 10.1 Immature Gran % (Auto) 0.100 Neut % (Auto) 57.7 Lymph % (Auto) 30.9 [place] % (Auto) 5.8 Eos % (Auto) 5.2 H Baso % (Auto) 0.3 Absolute Neuts (auto) 4.4 Absolute Lymphs (auto) 2.33 Total Counted Not Reportable Differential Comment COMMENT Sodium 139 Potassium 3.5 Chloride 104 Carbon Dioxide 25.0 Anion Gap 10 BUN 10 Creatinine 0.63 Estim Creat Clear Calc 86.89 Est GFR (MDRD) Af Amer 133 Est GFR (MDRD) Non-Af 110 BUN/Creatinine Ratio 15.9 Glucose 108 H Calcium 9.0 TSH 0.11 L Free T4 Serum , Qual NEGATIVE Blood Type Antibody Screen Crossmatch 09/21/18 09/21/18 09/21/18 12:05 12:05 12:05 WBC RBC Hgb 6.2 L Hct MCV MCH MCHC RDW RDW Differential Plt Count MPV Immature Gran % (Auto) Neut % (Auto) Lymph % (Auto) [place] % (Auto) Eos % (Auto) Baso % (Auto) Absolute Neuts (auto) Absolute Lymphs (auto) Total Counted Differential Comment Sodium Potassium Chloride Carbon Dioxide Anion Gap BUN Creatinine Estim Creat Clear Calc Est GFR (MDRD) Af Amer Est GFR (MDRD) Non-Af BUN/Creatinine Ratio Glucose Calcium TSH Free T4 Serum , Qual Blood Type A POSITIVE Antibody Screen NEGATIVE Crossmatch See Detail See Detail 09/21/18 09/21/18 15:45 15:45 WBC RBC Hgb 10.5 L Hct 34.0 L MCV MCH MCHC RDW RDW Differential Plt Count MPV Immature Gran % (Auto) Neut % (Auto) Lymph % (Auto) [place] % (Auto) Eos % (Auto) Baso % (Auto) Absolute Neuts (auto) Absolute Lymphs (auto) Total Counted Differential Comment Sodium Potassium Chloride Carbon Dioxide Anion Gap BUN Creatinine Estim Creat Clear Calc Est GFR (MDRD) Af Amer Est GFR (MDRD) Non-Af BUN/Creatinine Ratio Glucose Calcium TSH Free T4 1.53 H Serum , Qual Blood Type Antibody Screen Crossmatch Medical Necessity - Tobacco Use Smoking Status: Never smoker Assessment/Plan All Active Problems Encounter for adjustment or management of vascular access device (Acute) Severe sepsis (Resolved) #1 acute blood loss anemia-as an expected consequence from extensive surgical debridement of panniculus and panniculus ulcer-patient's hemoglobin appears to be stable at this time, repeat labs will be obtained in the morning #2 hypotension secondary to #1-resolved at this time, patient is currently on no pressors #3 super morbid obesity #4 essential hypertension #5 hypothyroidism #6 obstructive sleep apnea-noncompliant on CPAP #7 chronic panniculitis-past history of multiple bacteria cultured from her wound including enterococcus, Prevotella, corynebacterium, and staph-patient currently is on vancomycin #8 generalized debility-patient states she will be going to an extended care facility when she is released from the hospital here, PT and OT have been ordered Code Visit Inpatient E&M: 13937 Subs Hosp L2
[2018-09-21] MEDS: 0.9% NaCl Peripheral Flush Adult/Peds IV (20:59)
[2018-09-21] MEDS: Docusate Sodium 100 MG Capsule PO (22:30)
[2018-09-22] VITALS (26 sets, daily range): BP systolic 90–158; BP diastolic 63–95; PULSE 111–129; RESP 12–20; TEMP 36.6–37.6; O2SAT 88–99
[2018-09-22] MEDS: HYDROmorphone 1 MG/ML Syringe IV (05:06)
[2018-09-22] MEDS: Enoxaparin 40 MG/0.4 ML Syringe SC (05:06)
[2018-09-22 05:29] LABS: Hematocrit 28.3 % (37-47); Mean Corp Hgb Conc 31.8 g/gl (32-36); Mean Corpuscular Hgb 25.1 pg (27.0-32.0); Mean Corpuscular Volume 78.8 fL (81-99); Mean Platelet Vol. 9.8 fl (6.2-12.0); Platelet Count 207 K/mm3 (150-450); RBC Distribution Width CV 18.5 % (11.6-14.6); RBC Distribution Width SD 53.8 fl (35.1-43.9); Red Blood Count 3.59 M/mm3 (4.2-5.4); White Blood Count 12.6 K/mm3 (4.4-11.0)
[2018-09-22 05:34] LABS: Scan Indicated on CBC? Y/N NO
--- NOTE | 2018-09-22 05:43 | PCA ---
unable to get patients weight 09/22 due to bed scale being broken
[2018-09-22 06:04] LABS: Anion Gap 8 (5-15); BUN 15 mg/dL (7-18); Calcium,Total 7.5 mg/dL (8.5-10.1); Chloride 107 mmol/L (98-107); Creatinine, Serum 0.75 mg/dL (0.55-1.02); EST Glomerular Filtration Rate 90 mL/min (>60); Est Glom Filt Rate - Afr Amer 109 mL/min (>60); Estimated Creatinine Clearance 72.98 ml/min; Glucose 116 mg/dL (74-106); Potassium 4.4 mmol/L (3.5-5.1); Sodium Level 141 mmol/L (136-145)
--- NOTE | 2018-09-22 07:13 | PCM.PROGNOTE ---
Patient Problems: Active and Suspected Problems Encounter for adjustment or management of vascular access device (Acute) Subjective: Patient is a 43-year-old female with a past medical history of super morbid obesity, anxiety/depression, allergic rhinitis, obstructive sleep apnea, asthma, hypertension, hypothyroidism, nonhealing ulcer of lower abdominal panniculus and prediabetes who was taken to surgery by Dr. Hendricks in May of 2018 for debridement of a necrotizing infection of the panniculus and panniculectomy. Cultures at that time were positive for methicillin-resistant Staphylococcus hominis and anaerobes. She was treated with vancomycin and Cleocin. She continued to have persistent ulceration of the lower abdominal panniculus and was doing daily silver alginate dressing changes. She was taken to surgery on 09/21/[address] Hendricks for debridement of the ulcer. All events of the past 24 Hours have been reviewed Antibiotic day #2 vancomycin VS: Stable. Her weight has decreased from 479 pounds in May to 415 pounds currently. TMAX -97.7 I&O -fluid balance is +2346 since admission. She has had a total of 625 cc of urine output since admission to the ICU. Telemetry -sinus tachycardia Blood sugars -fasting blood sugar today is 116 and hemoglobin A1c is pending. Lab: White blood cell count is 12.6 today. Hemoglobin is 9.0 and platelets are within normal limits. Electrolytes, BUN and creatinine are all normal. MCV at admission was 73.5 with an RDW of 19.4. Free T4 is high at 1.53 and the TSH is low at 0.11 Micro: Wound cultures are pending. There were 1+ white blood cells in the Gram stain with no organisms seen. Chest x-ray at admission showed no infiltrates, pleural effusions or pulmonary vascular congestion. Subjective: Denies chest pain, denies shortness of breath, denies nausea/vomiting. States her pain is adequately controlled. Her only complaint is a dry mouth and she says this runs in her family. She has tried Biotene in the past with no relief. Objective: PHYSICAL EXAM: GENERAL: alert, oriented X 3, Cooperative, NAD ORAL: dry mucosa, no mucosal lesions NECK: No JVD, supple, trachea midline LUNGS: CTA, symmetric chest expansion, diminished BS's due to body habitus HEART: RRR, Normal S1 and S2, no rub, no gallop, no MM ABDOMEN: soft, NT, ND, BS present, no guarding with palpation, I did not take the dressing down.......to get wound vac today....will examine at that time or when Dr. Hendricks takes the dressing down EXTREMITIES: edema, no cyanosis, no calf tenderness SKIN: No rashes, surgical wound of the abdomen NEUROLOGIC: no focal neurologic deficits PSYCH: appropriate, normal affect, pleasant - Physical Exam Vital Signs Temp Pulse Resp BP Pulse Ox 98.4 F 124 H 14 110/69 97 09/22/18 04:00 09/22/18 07:00 09/22/18 07:00 09/22/18 07:00 09/22/18 07:00 Oxygen Flow Rate (L/min) 2 Oxygen Delivery Method Nasal Cannula Weight: 415 lb Body Mass Index (BMI) 78.4 Intake and Output for Last 24 Hours 09/20/18 09/21/18 09/22/18 23:59 23:59 23:59 Intake Total 5500 / 5500 2746 / 2746 Output Total 875 / 875 400 / 400 Balance 4625 / 4625 2346 / 2346 Microbiology Past 72 Hours 09/21/18 11:34 Gram Stain - Final Tissue - Other Laboratory Tests Past 24 Hrs 09/21/18 09/21/18 09/21/18 07:31 07:31 07:31 WBC 7.6 RBC 4.99 Hgb 10.6 L Hct 36.7 L MCV 73.5 L MCH 21.2 L MCHC 28.9 L RDW 19.4 H RDW Differential 52.5 H Plt Count 306 MPV 10.1 Immature Gran % (Auto) 0.100 Neut % (Auto) 57.7 Lymph % (Auto) 30.9 [place] % (Auto) 5.8 Eos % (Auto) 5.2 H Baso % (Auto) 0.3 Absolute Neuts (auto) 4.4 Absolute Lymphs (auto) 2.33 Total Counted Not Reportable Differential Comment COMMENT Sodium 139 Potassium 3.5 Chloride 104 Carbon Dioxide 25.0 Anion Gap 10 BUN 10 Creatinine 0.63 Estim Creat Clear Calc 86.89 Est GFR (MDRD) Af Amer 133 Est GFR (MDRD) Non-Af 110 BUN/Creatinine Ratio 15.9 Glucose 108 H Hemoglobin A1c Calcium 9.0 Prealbumin TSH 0.11 L Free T4 Serum , Qual NEGATIVE Blood Type Antibody Screen Crossmatch 09/21/18 09/21/18 09/21/18 12:05 12:05 12:05 WBC RBC Hgb 6.2 L Hct MCV MCH MCHC RDW RDW Differential Plt Count MPV Immature Gran % (Auto) Neut % (Auto) Lymph % (Auto) [place] % (Auto) Eos % (Auto) Baso % (Auto) Absolute Neuts (auto) Absolute Lymphs (auto) Total Counted Differential Comment Sodium Potassium Chloride Carbon Dioxide Anion Gap BUN Creatinine Estim Creat Clear Calc Est GFR (MDRD) Af Amer Est GFR (MDRD) Non-Af BUN/Creatinine Ratio Glucose Hemoglobin A1c Calcium Prealbumin TSH Free T4 Serum , Qual Blood Type A POSITIVE Antibody Screen NEGATIVE Crossmatch See Detail See Detail 09/21/18 09/21/18 09/22/18 15:45 15:45 05:00 WBC 12.6 H RBC 3.59 L Hgb 10.5 L 9.0 L Hct 34.0 L 28.3 L MCV 78.8 L MCH 25.1 L MCHC 31.8 L RDW 18.5 H RDW Differential 53.8 H Plt Count 207 MPV 9.8 Immature Gran % (Auto) Neut % (Auto) Lymph % (Auto) [place] % (Auto) Eos % (Auto) Baso % (Auto) Absolute Neuts (auto) Absolute Lymphs (auto) Total Counted Differential Comment Sodium Potassium Chloride Carbon Dioxide Anion Gap BUN Creatinine Estim Creat Clear Calc Est GFR (MDRD) Af Amer Est GFR (MDRD) Non-Af BUN/Creatinine Ratio Glucose Hemoglobin A1c Calcium Prealbumin TSH Free T4 1.53 H Serum , Qual Blood Type Antibody Screen Crossmatch 09/22/18 09/22/18 05:00 05:00 WBC RBC Hgb Hct MCV MCH MCHC RDW RDW Differential Plt Count MPV Immature Gran % (Auto) Neut % (Auto) Lymph % (Auto) [place] % (Auto) Eos % (Auto) Baso % (Auto) Absolute Neuts (auto) Absolute Lymphs (auto) Total Counted Differential Comment Sodium 141 Potassium 4.4 Chloride 107 Carbon Dioxide 26.0 Anion Gap 8 BUN 15 Creatinine 0.75 Estim Creat Clear Calc 72.98 Est GFR (MDRD) Af Amer 109 Est GFR (MDRD) Non-Af 90 BUN/Creatinine Ratio 20.0 Glucose 116 H Hemoglobin A1c Pending Calcium 7.5 L Prealbumin 12.0 L TSH Free T4 Serum , Qual Blood Type Antibody Screen Crossmatch Medical Necessity - Tobacco Use Smoking Status: Never smoker Assessment/Plan All Active Problems Encounter for adjustment or management of vascular access device (Acute) Severe sepsis (Resolved) Impressions 1. Panniculitis - S/P debridement 2. Hypotension - suspect due to anesthesia 3. super morbid obesity 4. MARCE 5. Hypertension 6. Hypothyroidism hx with iatrogenic hyperthyroidism 7. Generalized debility secondary to super morbid obesity 8. chronically dry mouth 9. Hx of MRSA infection in the past Hold the levothyroid until Thursday and then start 200 mcg daily 2,000 calorie diet Check a mag and phos Transfer to [place] check iron studies.......may be affected by the transfusion yesterday Check SSA and SSB Start an iron supplement Start Glucophage 500 BID for HGA1C of 7.5 PT/OT Wound vac Continue Vancomycin and await the results of the wound culture Add Flagyl for anaerobic coverage
--- NOTE | 2018-09-22 07:19 | PCM.PN.INT ---
Subjective: The patient was seen and examined at the bedside this morning. Events from the last 24 hours have been reviewed. The patient is currently afebrile, hemodynamically stable and maintaining appropriate oxygen saturations on 2 L/min via nasal cannula. Hemoglobin is stable this morning without overt signs of blood loss overnight. Objective: The patient's most recent lab work, culture data and imaging studies have all been personally reviewed. General: Alert, Cooperative, No apparent distress, - - Super morbidly obese HEENT: Atraumatic, PERRLA, Normocephalic Oral: No Gingival or Mucosal Lesions/ Ulcerations Neck: Supple, No Nodes, Trachea Midline, - - Large neck circumference with redundant soft tissue. Lungs: No rhonchi, No wheeze, No rales, Diminished Cardiovascular: Regular rate, Regular Rhythm, Normal S1, Normal S2, No murmurs Abdomen: Bowel Sounds Present, Soft, Non Tender Extremities: No clubbing, No cyanosis, Edema Skin: - - Surgical wound present, currently with dressing in place. Musculoskeletal: No Muscle Wasting Lymphatic: No Cervical, Supraclavicular, or Inguinal Adenopathy Neurological: Cranial nerves II-XII grossly intact, Neuro grossly intact Psych/Mental Status: Normal Affect, Appropriate Vital Signs Temp Pulse Resp BP Pulse Ox 36.9 C 124 H 14 110/69 97 09/22/18 04:00 09/22/18 07:00 09/22/18 07:00 09/22/18 07:00 09/22/18 07:00 Oxygen Flow Rate (L/min) 2 Oxygen Delivery Method Nasal Cannula Weight: 415 lb Body Mass Index (BMI) 78.4 Intake and Output for Last 24 Hours 09/20/18 09/21/18 09/22/18 23:59 23:59 23:59 Intake Total 5500 / 5500 2746 / 2746 Output Total 875 / 875 400 / 400 Balance 4625 / 4625 2346 / 2346 Labs (Last 48 Hours) 09/21/18 09/21/18 09/21/18 07:31 07:31 07:31 WBC 7.6 RBC 4.99 Hgb 10.6 L Hct 36.7 L MCV 73.5 L MCH 21.2 L MCHC 28.9 L RDW 19.4 H RDW Differential 52.5 H Plt Count 306 MPV 10.1 Immature Gran % (Auto) 0.100 Neut % (Auto) 57.7 Lymph % (Auto) 30.9 [place] % (Auto) 5.8 Eos % (Auto) 5.2 H Baso % (Auto) 0.3 Absolute Neuts (auto) 4.4 Absolute Lymphs (auto) 2.33 Total Counted Not Reportable Differential Comment COMMENT Sodium 139 Potassium 3.5 Chloride 104 Carbon Dioxide 25.0 Anion Gap 10 BUN 10 Creatinine 0.63 Estim Creat Clear Calc 86.89 Est GFR (MDRD) Af Amer 133 Est GFR (MDRD) Non-Af 110 BUN/Creatinine Ratio 15.9 Glucose 108 H Hemoglobin A1c Calcium 9.0 Prealbumin TSH 0.11 L Free T4 Serum , Qual NEGATIVE Blood Type Antibody Screen Crossmatch 09/21/18 09/21/18 09/21/18 12:05 12:05 12:05 WBC RBC Hgb 6.2 L Hct MCV MCH MCHC RDW RDW Differential Plt Count MPV Immature Gran % (Auto) Neut % (Auto) Lymph % (Auto) [place] % (Auto) Eos % (Auto) Baso % (Auto) Absolute Neuts (auto) Absolute Lymphs (auto) Total Counted Differential Comment Sodium Potassium Chloride Carbon Dioxide Anion Gap BUN Creatinine Estim Creat Clear Calc Est GFR (MDRD) Af Amer Est GFR (MDRD) Non-Af BUN/Creatinine Ratio Glucose Hemoglobin A1c Calcium Prealbumin TSH Free T4 Serum , Qual Blood Type A POSITIVE Antibody Screen NEGATIVE Crossmatch See Detail See Detail 09/21/18 09/21/18 09/22/18 15:45 15:45 05:00 WBC 12.6 H RBC 3.59 L Hgb 10.5 L 9.0 L Hct 34.0 L 28.3 L MCV 78.8 L MCH 25.1 L MCHC 31.8 L RDW 18.5 H RDW Differential 53.8 H Plt Count 207 MPV 9.8 Immature Gran % (Auto) Neut % (Auto) Lymph % (Auto) [place] % (Auto) Eos % (Auto) Baso % (Auto) Absolute Neuts (auto) Absolute Lymphs (auto) Total Counted Differential Comment Sodium Potassium Chloride Carbon Dioxide Anion Gap BUN Creatinine Estim Creat Clear Calc Est GFR (MDRD) Af Amer Est GFR (MDRD) Non-Af BUN/Creatinine Ratio Glucose Hemoglobin A1c Calcium Prealbumin TSH Free T4 1.53 H Serum , Qual Blood Type Antibody Screen Crossmatch 09/22/18 09/22/18 05:00 05:00 WBC RBC Hgb Hct MCV MCH MCHC RDW RDW Differential Plt Count MPV Immature Gran % (Auto) Neut % (Auto) Lymph % (Auto) [place] % (Auto) Eos % (Auto) Baso % (Auto) Absolute Neuts (auto) Absolute Lymphs (auto) Total Counted Differential Comment Sodium 141 Potassium 4.4 Chloride 107 Carbon Dioxide 26.0 Anion Gap 8 BUN 15 Creatinine 0.75 Estim Creat Clear Calc 72.98 Est GFR (MDRD) Af Amer 109 Est GFR (MDRD) Non-Af 90 BUN/Creatinine Ratio 20.0 Glucose 116 H Hemoglobin A1c Pending Calcium 7.5 L Prealbumin 12.0 L TSH Free T4 Serum , Qual Blood Type Antibody Screen Crossmatch Microbiology 09/21/18 11:34 Tissue - Other Gram Stain - Final Clinical Impression(s) from Imaging Studies Chest X-Ray 09/21/18 14:03 IMPRESSION: The tip of the left central line is at the junction of the superior vena cava and left brachiocephalic vein. Electronically Signed: Michel Shannon MD at 14:27 EST Tel [phone], Service support , Medical Necessity - Tobacco Use Smoking Status: Never smoker Assessment/Plan All Active Problems Encounter for adjustment or management of vascular access device (Acute) Severe sepsis (Resolved) RECOMMENDATIONS: 1. Continue antibiotics as ordered 2. Check H&H daily with plans to transfuse if hemoglobin drops below 7 g/dL. 3. Continue local wound care. 4. Pain control per surgery recommendations. 5. Encourage incentive spirometer use and mobilize patient as tolerated. IMPRESSIONS: 1. Nonhealing ulcer of abdominal wall, now POD #1 s/p excisional debridement and panniculectomy Continue current supportive measures with antibiotics, local wound care and pain control. Encourage aggressive incentive spirometer use and mobilize patient as tolerated. 2. Hypovolemic versus hemorrhagic shock The patient was reportedly hypotensive and anemic postoperatively. Although it was reported that the blood loss intraoperatively was minimal, the patient's hemoglobin dropped by 4 g upon recheck in the PACU. She did receive 4 L of fluid intraoperatively, so it is unclear whether the repeat H&H was delusional in nature. Despite this, the patient was given 4 units of packed red blood cells through a rapid infuser in the PACU. A follow-up H&H in the ICU revealed a hemoglobin of 10.5. The patient did arrive on Eleuterio-Synephrine, which was able to be weaned off completely shortly after her arrival. She has remained hemodynamically stable without any signs of overt blood loss. Recommend monitoring hemoglobin with plans to transfuse if it drops below 7 g/dL. 3. Super morbid obesity/hypothyroidism/hypertension/anxiety/depression/asthma Complicates care, management, report recovery and prognosis. Continue home medications, once the patient is able to tolerate p.o. intake. Advance diet per surgery recommendations. This note was generated with [employer] dictation software. It may contain incorrect words, spelling, and punctuation that were not noted in checking the note before signing. DISPOSITION: The patient is medically stable for transfer out of the intensive care unit. Given the patient's lack of further ICU needs, will sign off. Please call with any additional questions. Code Visit Inpatient E&M: [id number] [facility] Hosp L3
[2018-09-22 08:02] LABS: Hemoglobin A1c 5.2 % (4.2-6.3)
[2018-09-22] MEDS: Docusate Sodium 100 MG Capsule PO ×2 (09:30→21:52)
--- NOTE | 2018-09-22 11:04 | CASEMGMT ---
Addendum entered by Althea Fisher 09/22/18 13:19: Valentina from [facility] called and said they can take pt and will start precert, and asked for updates as available. SW let pt know [facility] can take her and will work on precert. SW will continue to follow. BEATRIS Phillips, SITE PROMOTION AGENT Original Note: Addendum entered by Althea Fisher 09/22/18 12:54: Valentina called, asked about what type of infection pt has. SW faxed the microbiology that is back so far. Valentina then called back to ask if pt has flesh eating bacteria. SW asked physician, he states no, pt has necrotizing tissue in fat, but not the muscle. SW let Valentina know. Valentina will let this SW know shortly if they can definitely take pt. BEATRIS Phillips, SITE PROMOTION AGENT Original Note: SW received referral that pt would like to go to SNF. SW met w/pt in room. Pt was home from [facility] about 2 weeks, lives w/her mother, 3 children. Pt had home health, does not remember the name of the agency. Pt uses a walker and wheelchair, also has a shower chair. Pt would like to return to [facility] at discharge, she states they know her and that's where she would like to be. SW explained will make referral and will let her know if they can take her. GEORGIE called [facility], spoke w/Valentina, faxed referral. They will work on precert. PT/OT are pending, SW will fax the therapy evaluations once completed. GE[facility]GIE will continue to follow. BEATRIS Phillips, SITE PROMOTION AGENT
[2018-09-22] MEDS: Mupirocin Ointment 22gm Tube 1 APPLIC NASAL ×2 (11:39→21:53)
--- NOTE | 2018-09-22 11:43 | OP.PCM_ITS ---
Report of Operation Date of Procedure: 09/21/18 Pre-Operative Diagnosis: 1. 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 2. Nonhealing ulcer central aspect lower anterior abdominal wall. 3. Borderline diabetes. 4. Abdominal wall skin crease intertrigo. 5. Morbid obesity. 6. Incisional hernia. 7. History of methicillin resistant Staphylococcus hominis hominis. Post-Operative Diagnosis: Same. Surgery/Procedure Performed:: Surgical preparation right lateral abdominal wall massive panniculus with excisional debridement skin and subcutaneous tissue for necrotizing soft tissue infection and panniculectomy (858 cm2). Description of Surgical Findings:: The patient is a 43 year old F with a history of morbid obesity and borderline diabetes who presents with worsening pain and swelling in her massive abdominal panniculus mostly on the right side. The left side is much softer. This has a persistent nonhealing ulcer in the central aspect of the lower abdominal panniculus. She was hospitalized in May, and had surgery where she underwent surgical preparation lower anterior abdominal wall massive panniculus with excisional debridement nonhealing ulcer and skin and subcutaneous tissue for necrotizing soft tissue infection and panniculectomy (777 cm2). Operative cultures showed Methicillin resistant Staphylococcus hominis hominis and Anaerobes. She was treated with Vancomycin and Cleocin. She has a persistent ulceration centrally in the lower abdominal panniculus and is doing daily Silver dressing changes. She denies any fever. With the increasing pain and swelling in the right side of her massive panniculus, she presents today to begin surgical debridement which will be done in stages. Patient was informed of the risks and complications of the procedure including alternatives to surgery. These were discussed with the patient personally. Patient voices understanding and wishes to proceed. Size of defect right abdominal wall - 22 x 39 x 5 cm. I used Veronica absorbable hemostat, (I used 2 vials). Reference Number - [id number]. Lot Number - [id number]. Expiration - June 01, 2023. halver machine operator: Mercedes Fuchs. halver machine operator: Dimitris Stack. Type of Anesthesia:: General Specimen's removed: Right lateral abdominal wall massive panniculus with panniculitis to Pathology and Microbiology. Drains: None. Estimated Blood Loss (mL): 650 ml. Description of Procedure: Patient was taken to OR in supine position and was placed under general anesthesia. The right abdominal wall was prepped and draped in the usual fashion. SCD's were placed for DVT prophylaxis. Perioperative antibiotics were given intravenously. A brady catheter was placed. Incision was made on the right lateral abdominal wall where the greatest amount of induration and de pendent edema was located. Dissection was slow as there were multiple areas of venous bleeding present that needed ligation with hemostats and cauterization. Cauterization was difficult secondary to the amount of edema present that had to be suctioned out in order to get hemostasis. No gross pus was seen, but there was evidence of necrotizing soft tissue infection in the deep subcutaneous and s ub-Albino's fascial area. These areas of necrotizing soft tissue infection were excised and debrided. Hemostasis obtained with electrocautery. There was about 650 ml of blood loss. The patient developed issues with hypotension during the surgery and aggressive fluid resuscitation was done. The surgery was then terminated because of the amount of blood loss and the need to stabilize the patient. Due to the amount of blood loss, I anticipate the need for PRBC postop and will order a Type and Cross. I had discussed with the patient preoperatively, that multiple surgical procedures would be necessary in order to remove her massive pannus. I generally stop the surgery when I get into the 500 ml blood loss range. Obviously more abdominal pannus tissue needs to be excised, but will need to wait until the next surgery (I generally wait 3-6 months depending on the general medical status of the patient at the time). Tissue that was removed today will be sent to Pathology for analysis and to Microbiology for culture. She had a resistant Staph back in May and will be treated perioperatively with Vancomycin. A positive culture may necessitate antibiotic modification. The size of the defect after excision and debridement was 22 x 39 x 5 cm. The wound was irrigated with saline. I sprayed Veronica absorbable hemostat into the wound to minimize seroma formation. I used 2 vials. The wound was then dressed with Mepitel nonadherent dressing followed by Kerlix gauze and Betadine followed by dry Kerlix gauze and ABD pads compression dressing. This was followed by an abdominal binder. At the time of the dressing, the wound was stable with no evidence of active bleeding. Will check a Hgb in PACU as I anticipate it will be low and PRBC will need to be given. I will also order a Type and Cross as well. Patient tolerated the procedure with some issues with hypotension and after aggressive fluid resuscitation was sent to PACU in stable condition and anticipate will need continued fluid resuscitation which will include PRBC. Depending on how well she responds to fluid resuscitation will determine if she is sent to the floor for continued postop care or whether she needs to go to the ICU for closer monitoring overnight. Grafts/Implants Used: None. - Complications Patient had issues during surgery with hypotension. Aggressive fluid resuscitation was done. Anticipate the need for PRBC postop and ordered a Type and Cross. - Admit VTE Documentation VTE Present on Admission: No VTE Mechan Device Prophylaxis: SCD's VTE Pharm Prophylaxis ordered?: Yes Code Visit Surgery Charges CPT - 24908 ICD-10 - E65, M79.3, L98.492, M79.89, L30.4, E66.9, Z86.19, R73.03, K43.2
--- NOTE | 2018-09-22 12:23 | EKG12_ITS ---
Test Reason : DYSRHYTHMIA Blood Pressure : / mmHG Vent. Rate : 122 BPM Atrial Rate : 122 BPM P-R Int : 140 ms QRS Dur : 080 ms QT Int : 294 ms P-R-T Axes : 055 003 051 degrees QTc Int : 418 ms Sinus tachycardia Otherwise normal ECG When compared with ECG of 21-SEP-2018 12:39, MANUAL COMPARISON REQUIRED, DATA IS UNCONFIRMED Confirmed by MADISON GILMORE, DARNELL ([id number]), loan expeditor DON FARRELL ([id number]) on 09/24/2018 2:18:55 PM Referred By: Yrn Hendricks Confirmed By:DARNELL WALLACE MD
[2018-09-22] MEDS: 0.9% NaCl Peripheral Flush Adult/Peds IV ×2 (13:18→16:51)
[2018-09-22] MEDS: Ondansetron 4 MG/2 ML Vial IV ×2 (13:18→20:22)
--- NOTE | 2018-09-22 13:35 | PCM.PN.SRG ---
Patient Problems: Active and Suspected Problems Encounter for adjustment or management of vascular access device (Acute) Subjective: Postop #1 Patient complains of wound pain and being tired. - Physical Exam General: Alert, Oriented x3 HEENT: PERRLA, EOMI Oral: Moist Mucosa Neck: Supple Abdomen: Soft, Non-Distended Skin: Ulcer/ Wound - right lateral abdominal wound is stable. No active bleeding noted. VAC applied today. Neurological: Cranial nerves II-XII grossly intact Psych/Mental Status: Normal Affect, Appropriate Vital Signs Temp Pulse Resp BP Pulse Ox 99.7 F H 122 H 20 H 133/90 H 94 09/22/18 11:49 09/22/18 11:49 09/22/18 11:49 09/22/18 11:49 09/22/18 11:49 Oxygen Flow Rate (L/min) 2 Oxygen Delivery Method Room Air Weight: 415 lb 0.006 oz Body Mass Index (BMI) 78.4 Intake and Output for Last 24 Hours 09/20/18 09/21/18 09/22/18 23:59 23:59 23:59 Intake Total 5500 / 5500 4026 / 4026 Output Total 875 / 875 725 / 725 Balance 4625 / 4625 3301 / 3301 Microbiology Past 72 Hours 09/21/18 11:34 Gram Stain - Final Tissue - Other Wound Culture - Preliminary Mixed Gram Positive Organisms Laboratory Tests Past 24 Hrs 09/21/18 09/21/18 09/21/18 12:05 12:05 15:45 WBC RBC Hgb Hct MCV MCH MCHC RDW RDW Differential Plt Count MPV Sodium Potassium Chloride Carbon Dioxide Anion Gap BUN Creatinine Estim Creat Clear Calc Est GFR (MDRD) Af Amer Est GFR (MDRD) Non-Af BUN/Creatinine Ratio Glucose Hemoglobin A1c Calcium Prealbumin Free T4 1.53 H Blood Type A POSITIVE Antibody Screen NEGATIVE Crossmatch See Detail See Detail 09/21/18 09/22/18 09/22/18 15:45 05:00 05:00 WBC 12.6 H RBC 3.59 L Hgb 10.5 L 9.0 L Hct 34.0 L 28.3 L MCV 78.8 L MCH 25.1 L MCHC 31.8 L RDW 18.5 H RDW Differential 53.8 H Plt Count 207 MPV 9.8 Sodium 141 Potassium 4.4 Chloride 107 Carbon Dioxide 26.0 Anion Gap 8 BUN 15 Creatinine 0.75 Estim Creat Clear Calc 72.98 Est GFR (MDRD) Af Amer 109 Est GFR (MDRD) Non-Af 90 BUN/Creatinine Ratio 20.0 Glucose 116 H Hemoglobin A1c Calcium 7.5 L Prealbumin 12.0 L Free T4 Blood Type Antibody Screen Crossmatch 09/22/18 05:00 WBC RBC Hgb Hct MCV MCH MCHC RDW RDW Differential Plt Count MPV Sodium Potassium Chloride Carbon Dioxide Anion Gap BUN Creatinine Estim Creat Clear Calc Est GFR (MDRD) Af Amer Est GFR (MDRD) Non-Af BUN/Creatinine Ratio Glucose Hemoglobin A1c 5.2 Calcium Prealbumin Free T4 Blood Type Antibody Screen Crossmatch Medical Necessity - Tobacco Use Smoking Status: Never smoker Assessment/Plan All Active Problems Encounter for adjustment or management of vascular access device (Acute) Severe sepsis (Resolved) 1. 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 2. Nonhealing ulcer central aspect lower anterior abdominal wall. 3. Borderline diabetes. 4. Abdominal wall skin crease intertrigo. 5. Morbid obesity. 6. Incisional hernia. 7. History of methicillin resistant Staphylococcus hominis hominis. 8. s/p surgical preparation right lateral abdominal wall massive panniculus with excisional debridement skin and subcutaneous tissue for necrotizing soft tissue infection and panniculectomy (858 cm2). 9. Anemia of chronic disease, acute on chronic. Wound is stable. No active bleeding seen. VAC applied. Hgb is stable at 9.0 after PRBC. Patient is hemodynamically stable. Continue Vancomycin. Operative culture shows Mixed Gram Positive Organisms. Transfer to Med Surg today. ECF evaluation in process.
[2018-09-22] MEDS: CHLORHEXIDINE GLUC 2% CLOTH 1 EACH TOWELETTE TOPICAL (13:55)
--- NOTE | 2018-09-22 14:09 | NURSING ---
wound photo: right abdomen
--- NOTE | 2018-09-22 15:05 | CASEMGMT ---
Addendum entered by Althea Fisher 09/22/18 15:25: PT/OT evaluations faxed to [facility] made aware. BEATRIS Phillips, AUTOMOTIVE SERVICE PROFESSIONAL Original Note: GEORGIE faxed wound vac information to [facility]. GEORGIE let Valentina at [facility] know--she confirms received the information . BEATRIS Phillips, AUTOMOTIVE SERVICE PROFESSIONAL
[2018-09-22] MEDS: hydroCHLOROthiazide 25 MG Tablet PO (16:45)
[2018-09-22] MEDS: Montelukast 10 MG Tablet PO (16:45)
[2018-09-22] MEDS: Pantoprazole Sodium 20 MG Tablet PO (16:45)
[2018-09-22] MEDS: Loratadine 10 MG Tablet PO (16:45)
[2018-09-22] MEDS: Ascorbic Acid 500 MG Tablet PO (17:00)
[2018-09-22] MEDS: Sertraline 100 MG Tablet PO (17:00)
[2018-09-22] MEDS: Nystatin Powder 15gm Bottle 1 APPLIC TOPICAL ×2 (17:01→21:52)
[2018-09-22 17:37] LABS: Ferritin 28 ng/mL (8-252); Iron 23 ug/dL (50-170); Iron Binding Capacity,Total 234 ug/dL (250-450); Magnesium 1.6 mg/dL (1.6-2.6); PERCENT IRON SATURATION 9.8 % (15.0-55.0); Phosphorus 2.9 mg/dL (2.5-4.9)
--- NOTE | 2018-09-22 22:37 | NURSING ---
Was given a room of Med/Surg @ #212 @ 22:00 with request to hold onto pt until the nurse could call to get report, by JENIFER Daley. Called JENIFER Daley at 22:37 to give report. Report received. 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
--- NOTE | 2018-09-22 23:00 | NURSING ---
Pt transferred from ICU.
[2018-09-23] VITALS (12 sets, daily range): BP systolic 112–118; BP diastolic 58–70; PULSE 105–122; RESP 16–20; TEMP 36.6–37.2; O2SAT 95–97
[2018-09-23] MEDS: 0.9% NaCl Peripheral Flush Adult/Peds IV ×3 (04:32→20:28)
[2018-09-23] MEDS: Enoxaparin 40 MG/0.4 ML Syringe SC (06:43)
[2018-09-23] MEDS: Nystatin Powder 15gm Bottle 1 APPLIC TOPICAL ×3 (06:43→22:19)
[2018-09-23 07:17] LABS: Hematocrit 23.1 % (37-47); Hemoglobin 7.2 g/dl (12.0-15.0); Mean Corp Hgb Conc 31.2 g/gl (32-36); Mean Corpuscular Hgb 24.8 pg (27.0-32.0); Mean Corpuscular Volume 79.7 fL (81-99); Mean Platelet Vol. 9.7 fl (6.2-12.0); Platelet Count 200 K/mm3 (150-450); RBC Distribution Width CV 19.6 % (11.6-14.6); RBC Distribution Width SD 57.2 fl (35.1-43.9); White Blood Count 13.4 K/mm3 (4.4-11.0)
[2018-09-23 07:18] LABS: Scan Indicated on CBC? Y/N NO
[2018-09-23 07:34] LABS: Anion Gap 9 (5-15); BUN 12 mg/dL (7-18); BUN/Creat Ratio 22.5 RATIO (10-20); Calcium,Total 7.6 mg/dL (8.5-10.1); Chloride 105 mmol/L (98-107); Creatinine, Serum 0.53 mg/dL (0.55-1.02); EST Glomerular Filtration Rate 133 mL/min (>60); Est Glom Filt Rate - Afr Amer 160 mL/min (>60); Estimated Creatinine Clearance 103.28 ml/min; Glucose 86 mg/dL (74-106); Magnesium 1.9 mg/dL (1.6-2.6); Phosphorus 2.9 mg/dL (2.5-4.9); Sodium Level 139 mmol/L (136-145)
[2018-09-23] MEDS: Ascorbic Acid 500 MG Tablet PO ×2 (08:24→17:26)
[2018-09-23] MEDS: Pantoprazole Sodium 20 MG Tablet PO ×2 (10:12→22:18)
[2018-09-23] MEDS: Mupirocin Ointment 22gm Tube 1 APPLIC NASAL ×2 (10:13→22:19)
[2018-09-23] MEDS: hydroCHLOROthiazide 25 MG Tablet PO (10:13)
[2018-09-23] MEDS: Montelukast 10 MG Tablet PO (10:13)
[2018-09-23] MEDS: Sertraline 100 MG Tablet PO (10:13)
[2018-09-23] MEDS: Loratadine 10 MG Tablet PO (10:13)
--- NOTE | 2018-09-23 12:01 | CASEMGMT ---
Social Work Note SW spoke with Valentina at [facility] and updated her that this worker is following pt today. GEORGIE will fax updates when available. Plan: [facility] pending pre-cert Lindsay Noguera HOT DIP GALVANIZER, SHAPER SETTER
--- NOTE | 2018-09-23 14:00 | CASEMGMT ---
Social Work Note SW faxed updated clinicals to [facility]. GEORGIE informed [facility] that pt would be ready for discharge once pre-cert is obtained. Plan: [facility] pending pre-cert Lindsay Noguera WAFER BATTER MIXER, FRONT LOADER RESIDENTIAL DRIVER
--- NOTE | 2018-09-23 14:52 | PCM.PN.SRG ---
Patient Problems: Active and Suspected Problems Encounter for adjustment or management of vascular access device (Acute) Subjective: Postop #2 Patient is resting comfortably. Feels tired. - Physical Exam General: Alert, Oriented x3 HEENT: PERRLA, EOMI Oral: Moist Mucosa Neck: Supple Abdomen: Soft, Non-Distended Skin: Ulcer/ Wound - right lateral abdominal wall wound is stable. VAC in place. Small amount of drainage in the canister. Neurological: Cranial nerves II-XII grossly intact Psych/Mental Status: Normal Affect, Appropriate Vital Signs Temp Pulse Resp BP Pulse Ox 97.9 F 114 H 18 112/62 96 09/23/18 08:25 09/23/18 08:25 09/23/18 08:49 09/23/18 08:25 09/23/18 08:25 Oxygen Flow Rate (L/min) 2 Oxygen Delivery Method Room Air Weight: 415 lb 0.006 oz Body Mass Index (BMI) 78.4 Intake and Output for Last 24 Hours 09/21/18 09/22/18 09/23/18 23:59 23:59 23:59 Intake Total 5500 / 5500 5378 / 5378 1400 / 1400 Output Total 875 / 875 1375 / 1375 2400 / 2400 Balance 4625 / 4625 4003 / 4003 -1000 / -1000 Microbiology Past 72 Hours 09/21/18 16:35 Urine Culture - Final Urine Catheter - Vitale Culture exhibits no growth. 09/21/18 11:34 Gram Stain - Final Tissue - Other Wound Culture - Preliminary Mixed Gram Positive Organisms Laboratory Tests Past 24 Hrs 09/22/18 09/22/18 09/22/18 16:55 16:55 16:55 WBC RBC Hgb Hct MCV MCH MCHC RDW RDW Differential Plt Count MPV Sodium Potassium Chloride Carbon Dioxide Anion Gap BUN Creatinine Estim Creat Clear Calc Est GFR (MDRD) Af Amer Est GFR (MDRD) Non-Af BUN/Creatinine Ratio Glucose Calcium Phosphorus 2.9 Magnesium 1.6 Iron 23 L TIBC 234 L Iron Saturation 9.8 L Ferritin 28 Anti-ss DNA IgG Ab Pending 09/23/18 09/23/18 07:10 07:10 WBC 13.4 H RBC 2.90 L Hgb 7.2 L Hct 23.1 L MCV 79.7 L MCH 24.8 L MCHC 31.2 L RDW 19.6 H RDW Differential 57.2 H Plt Count 200 MPV 9.7 Sodium 139 Potassium 3.0 L Chloride 105 Carbon Dioxide 25.0 Anion Gap 9 BUN 12 Creatinine 0.53 L Estim Creat Clear Calc 103.28 Est GFR (MDRD) Af Amer 160 Est GFR (MDRD) Non-Af 133 BUN/Creatinine Ratio 22.5 H Glucose 86 Calcium 7.6 L Phosphorus 2.9 Magnesium 1.9 Iron TIBC Iron Saturation Ferritin Anti-ss DNA IgG Ab Medical Necessity - Tobacco Use Smoking Status: Never smoker Assessment/Plan All Active Problems Encounter for adjustment or management of vascular access device (Acute) Severe sepsis (Resolved) 1. 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 2. Nonhealing ulcer central aspect lower anterior abdominal wall. 3. Borderline diabetes. 4. Abdominal wall skin crease intertrigo. 5. Morbid obesity. 6. Incisional hernia. 7. History of methicillin resistant Staphylococcus hominis hominis. 8. s/p surgical preparation right lateral abdominal wall massive panniculus with excisional debridement skin and subcutaneous tissue for necrotizing soft tissue infection and panniculectomy (858 cm2). 9. Anemia of chronic disease, acute on chronic. 10. Hypophosphatemia. Wound is stable. VAC in place. Small amount of drainage in the canister. Hgb has decreased to 7.2 from 9.0. If it drops below 7, will need PRBC. Get Iron supplementation. Fe studies are low. Prealbumin is 12.0. Encourage nutritional supplementation with protein to help the healing process. K is low at 3.0. Will add K-Dur supplementation. Continue Vancomycin. Operative culture shows Mixed Gram Positive Organisms. ECF evaluation in process.
--- NOTE | 2018-09-23 16:03 | CASEMGMT ---
Social Work Note GEORGIE received call from Valentina at [facility] requesting to know 1. if patient has a wound vac 2. the end date for Vanco 3. if pt is ambulatory or loretta 4. if patient will still be in isolation when pt returns to [facility]. GEORGIE informed Valentina that pt does have a wound vac and that this worker will find out the other answers and give her a call. GEORGIE placed a call to Dr. Hendricks and left him a message asking when pt's end date for Vanco will be. GEORGIE spoke with JENIFER Turner who states pt has not been out of bed and refuses to get out of bed. Per Yue pt would need to be a loretta lift. Yue states that pt is not in isolation anymore. GEORGIE waiting for call back from Dr. Hendricks in regards to end date for Vanco. Plan: [facility] pending pre-cert Lindsay Noguera SUPPORT COORDINATOR, WIND ENERGY TECHNICIAN
[2018-09-23 16:37] LABS: Vancomycin, Trough Level 13.3 ug/mL (5.0-15.0)
--- NOTE | 2018-09-23 19:09 | PCM.RX.CS ---
Consult Pharmacy has been consulted to manage selected antiobiotic: Vancomycin Type of Consult: Follow-up Suspected Infection: Skin/Soft tissue Prior Doses of Antibiotics Received/Current Regimen: Currently on 1250mg iv q12h. Labs: Sodium 139 mmol/L (136-145) 09/23/18 07:10 Potassium 3.0 mmol/L (3.5-5.1) L 09/23/18 07:10 Chloride 105 mmol/L (98-107) 09/23/18 07:10 Carbon Dioxide 25.0 mmol/L (21.0-32.0) 09/23/18 07:10 Anion Gap 9 (5-15) 09/23/18 07:10 BUN 12 mg/dL (7-18) 09/23/18 07:10 Creatinine 0.53 mg/dL (0.55-1.02) L 09/23/18 07:10 Est GFR (MDRD) Af Amer 160 mL/min (>60) 09/23/18 07:10 Est GFR (MDRD) Non-Af 133 mL/min (>60) 09/23/18 07:10 BUN/Creatinine Ratio 22.5 RATIO (10-20) H 09/23/18 07:10 Glucose 86 mg/dL (74-106) 09/23/18 07:10 Vancomycin Trough 13.3 ug/mL (5.0-15.0) 09/23/18 15:41 Microbiology: Microbiology 09/21/18 16:35 Urine Catheter - Vitale Urine Culture - Final Culture exhibits no growth. 09/21/18 11:34 Tissue - Other Gram Stain - Final 09/21/18 11:34 Tissue - Other Wound Culture - Preliminary Mixed Gram Positive Organisms Weight used for dosin kg Estimated Creatinine Clearance: 103 ml/min Goal Trough: 10-15 mcg/mL Pharmacy Plan for Drug Dosing: Vancomycin trough of 09.23.18 was 13.3 (goal range 10-15mcg/ml). Cr 0.53 with CrCl ~103. Will continue same dose and get repeat vancomycin trough on 09.25.18 @0330. Pharmacy Service will continue to monitor and adjust dosing as required. Follow-Up Labs: Trough Vancomycin - 09.25.18 @0330 before 0400 dose
[2018-09-23] MEDS: oxyCODONE 5 MG Tablet PO (20:28)
[2018-09-24] VITALS (10 sets, daily range): BP systolic 99–125; BP diastolic 39–67; PULSE 103–111; RESP 16–18; TEMP 36.8–37.4; O2SAT 92–96
[2018-09-24 05:25] LABS: Hemoglobin 6.9 g/dl (12.0-15.0); Mean Corpuscular Volume 83.3 fL (81-99); Mean Platelet Vol. 10.2 fl (6.2-12.0); Platelet Count 206 K/mm3 (150-450); RBC Distribution Width CV 19.7 % (11.6-14.6); RBC Distribution Width SD 56.6 fl (35.1-43.9); Red Blood Count 2.76 M/mm3 (4.2-5.4); White Blood Count 12.8 K/mm3 (4.4-11.0)
[2018-09-24 05:43] LABS: Anion Gap 10 (5-15); BUN 11 mg/dL (7-18); Calcium,Total 7.7 mg/dL (8.5-10.1); Chloride 103 mmol/L (98-107); Creatinine, Serum 0.52 mg/dL (0.55-1.02); EST Glomerular Filtration Rate 135 mL/min (>60); Est Glom Filt Rate - Afr Amer 164 mL/min (>60); Estimated Creatinine Clearance 105.26 ml/min; Glucose 80 mg/dL (74-106); Potassium 2.8 mmol/L (3.5-5.1); Sodium Level 140 mmol/L (136-145)
[2018-09-24 05:55] LABS: Scan Indicated on CBC? Y/N NO
[2018-09-24] MEDS: Levothyroxine 100 MCG Tablet 200 MCG PO (06:46)
[2018-09-24] MEDS: Enoxaparin 40 MG/0.4 ML Syringe SC (06:46)
[2018-09-24] MEDS: Nystatin Powder 15gm Bottle 1 APPLIC TOPICAL ×3 (06:47→21:58)
[2018-09-24] MEDS: Potassium Chloride 10mEq/100mL 10 MEQ/100 ML IV.SOLN. 100 MEQ IV BOLUS ×8 (07:57→18:10)
--- NOTE | 2018-09-24 09:00 | CASEMGMT ---
JENIFER SHAH NOTE: [facility] Angela, to inquire about update on pt/tentative discharge date. Informed Angela that plans are for pt to go to [facility] on discharge and that pre-cert is pending. Angela stated to have someone call her if there are any needs on discharge. Her contact # is [phone]. Suly CANTOR RN CM
[2018-09-24] MEDS: Ondansetron ODT 4 MG Tablet PO (09:41)
[2018-09-24] MEDS: Loratadine 10 MG Tablet PO (09:42)
[2018-09-24] MEDS: Montelukast 10 MG Tablet PO (09:42)
[2018-09-24] MEDS: hydroCHLOROthiazide 25 MG Tablet PO (09:42)
[2018-09-24] MEDS: Ascorbic Acid 500 MG Tablet PO ×2 (09:43→16:42)
[2018-09-24] MEDS: Sertraline 100 MG Tablet PO (09:43)
[2018-09-24] MEDS: Mupirocin Ointment 22gm Tube 1 APPLIC NASAL ×2 (09:43→21:59)
[2018-09-24] MEDS: Pantoprazole Sodium 20 MG Tablet PO ×2 (09:45→21:58)
--- NOTE | 2018-09-24 11:11 | PN_ITS ---
Patient Problems: Active and Suspected Problems Encounter for adjustment or management of vascular access device (Acute) Subjective: Postoperative day #3 Day #4 vancomycin All events of the past 24 hours of been reviewed Afebrile, blood pressure is within normal limits. She continues to have mild tachycardia with heart rates in the 104-108 range today...... levothyroid has been held for the past few days secondary to iatrogenic hyperthyroidism. All lab was personally reviewed. White blood cell count is persistently elevat ed and is 12.8 today. Hemoglobin is 6.9 however I suspect that this may be dilutional as she is +7900 cc since admission. Platelets are within normal limits. Potassium is low at 2.8. Creatinine is stable at 0.52. Iron studies showed a low serum iron at 23, low TIBC at 234, low iron saturation at 9.8 and a low ferritin at 28........... ferritin is actually likely lower than this because ferritin is an acute phase reactant and she has panniculitis. The wound culture is positive for Staphylococcus simulans, corynebacterium striatum and corynebacterium amycolatum. The staph simulans is sensitive to oxacillin. It is resistant to clindamycin and penicillin and erythromycin. She is c/o nausea after the PO potassium and got Zofran. Objective: PHYSICAL EXAM: GENERAL: alert, oriented X 3, Cooperative, NAD ORAL: dry mucosa, no mucosal lesions NECK: No JVD, supple, trachea midline LUNGS: CTA, symmetric chest expansion, diminished BS's due to body habitus, no conversational dyspnea, no accessory muscle use and no tachypnea HEART: RRR, Normal S1 and S2, no rub, no gallop, no MM, + tachycardic....likely still due to the iatrogenic hyperthyroidism ABDOMEN: soft, NT, ND, BS present, no guarding with palpation, I did not take the dressing down, wound vac in place EXTREMITIES: edema, no cyanosis, no calf tenderness SKIN: No rashes, surgical wound of the abdomen NEUROLOGIC: no focal neurologic deficits PSYCH: appropriate, pleasant, flat affect - Physical Exam Vital Signs Temp Pulse Resp BP Pulse Ox 99.4 F H 104 H 18 114/39 L 94 09/24/18 08:00 09/24/18 08:00 09/24/18 08:00 09/24/18 08:00 09/24/18 08:00 Oxygen Flow Rate (L/min) 2 Oxygen Delivery Method Room Air Weight: 415 lb 0.006 oz Body Mass Index (BMI) 78.4 Intake and Output for Last 24 Hours 09/22/18 09/23/18 09/24/18 23:59 23:59 23:59 Intake Total 5378 / 5378 2275 / 2275 2096 / 2096 Output Total 1375 / 1375 3100 / 3100 1999 / 1999 Balance 4003 / 4003 -825 / -825 97 / 97 Microbiology Past 72 Hours 09/21/18 11:34 Gram Stain - Final Tissue - Other Wound Culture - Final Staphylococcus simulans Corynebacterium striatum Corynebacterium amycolatum 09/21/18 16:35 Urine Culture - Final Urine Catheter - Vitale Culture exhibits no growth. Laboratory Tests Past 24 Hrs 09/23/18 09/24/18 09/24/18 15:41 05:16 05:16 WBC 12.8 H RBC 2.76 L Hgb 6.9 L Hct 23.0 L MCV 83.3 MCH 25.0 L MCHC 30.0 L RDW 19.7 H RDW Differential 56.6 H Plt Count 206 MPV 10.2 Sodium 140 Potassium 2.8 L Chloride 103 Carbon Dioxide 27.0 Anion Gap 10 BUN 11 Creatinine 0.52 L Estim Creat Clear Calc 105.26 Est GFR (MDRD) Af Amer 164 Est GFR (MDRD) Non-Af 135 BUN/Creatinine Ratio 21.0 H Glucose 80 Calcium 7.7 L Vancomycin Trough 13.3 Medical Necessity - Tobacco Use Smoking Status: Never smoker Assessment/Plan All Active Problems Encounter for adjustment or management of vascular access device (Acute) Severe sepsis (Resolved) Impressions 1. Panniculitis - S/P debridement 2. Hypotension - suspect due to anesthesia 3. super morbid obesity 4. MARCE 5. Hypertension 6. Hypothyroidism hx with iatrogenic hyperthyroidism 7. Generalized debility secondary to super morbid obesity 8. chronically dry mouth 9. Hx of MRSA infection in the past 10. Hypokalemia 11. Depression Supplement potassium Recheck potassium at noon and if it is 3.5 or greater we will give Lasix 40 mg IV and recheck H and H 6 hours later...if the HGB is still less than 7 will transfuse with 2 units of PRBC's. type and screen today Wound culture is growing methicillin sensitive Staphylococcus simulans will discuss with Dr. Hendricks, discontinuing vancomycin and starting Levaquin or dicloxacillin Discharge to group home when medically stable....possibly tomorrow Start Wellbutrin in addition to the Zoloft for undertreated depression and this should also help to decrease appetite Recheck a TSH and a T4 in 1 month Code Visit Inpatient E&M: 18371 Subs Hosp L2
[2018-09-24 13:10] LABS: Potassium 3.4 mmol/L (3.5-5.1)
--- NOTE | 2018-09-24 14:05 | NURSING ---
Pt refused to sit up in chair.
[2018-09-24] MEDS: Furosemide 40 MG/4 ML Vial IV (14:42)
--- NOTE | 2018-09-24 16:13 | CASEMGMT ---
Social Work GEORGIE spoke with Valentina at [facility] and precert has been obtained. Physician informed and pt will not be ready today but likely will be ready tomorrow. SW informed [facility] and precert is still good for tomorrow. GEORGIE met with pt in room and informed of above d/c plan. Pt is agreeable and would like transportation set up with [facility]. GEORGIE requested to call pt mother to inform and pt denied stating mother will be in later today and pt will tell her d/c plan. HENS completed and placed on chart. Plan: [facility] on Thursday ASHANTI Rodriguez
--- NOTE | 2018-09-24 17:18 | PCM.PN.SRG ---
Patient Problems: Active and Suspected Problems Acute blood loss anemia (Acute) Subjective: Postop #3 Patient is resting comfortably. - Physical Exam General: Alert, Oriented x3 HEENT: PERRLA, EOMI Oral: Moist Mucosa Neck: Supple Abdomen: Soft, Non-Distended Skin: Ulcer/ Wound - wound is stable. No active bleeding noted. VAC in place. Small amount drainage in the canister. Neurological: Cranial nerves II-XII grossly intact Psych/Mental Status: Normal Affect, Appropriate Vital Signs Temp Pulse Resp BP Pulse Ox 98.3 F 111 H 16 99/57 L 96 09/24/18 14:48 09/24/18 14:48 09/24/18 14:48 09/24/18 14:48 09/24/18 14:48 Oxygen Flow Rate (L/min) 2 Oxygen Delivery Method Room Air Weight: 415 lb 0.006 oz Body Mass Index (BMI) 78.4 Intake and Output for Last 24 Hours 09/22/18 09/23/18 09/24/18 23:59 23:59 23:59 Intake Total 5378 / 5378 2275 / 2275 3011 / 3011 Output Total 1375 / 1375 3100 / 3100 6100 / 6100 Balance 4003 / 4003 -825 / -825 -3089 / -3089 Microbiology Past 72 Hours 09/21/18 11:34 Gram Stain - Final Tissue - Other Wound Culture - Final Staphylococcus simulans Corynebacterium striatum Corynebacterium amycolatum 09/21/18 16:35 Urine Culture - Final Urine Catheter - Vitale Culture exhibits no growth. Laboratory Tests Past 24 Hrs 09/24/18 09/24/18 09/24/18 05:16 05:16 12:34 WBC 12.8 H RBC 2.76 L Hgb 6.9 L Hct 23.0 L MCV 83.3 MCH 25.0 L MCHC 30.0 L RDW 19.7 H RDW Differential 56.6 H Plt Count 206 MPV 10.2 Sodium 140 Potassium 2.8 L 3.4 L Chloride 103 Carbon Dioxide 27.0 Anion Gap 10 BUN 11 Creatinine 0.52 L Estim Creat Clear Calc 105.26 Est GFR (MDRD) Af Amer 164 Est GFR (MDRD) Non-Af 135 BUN/Creatinine Ratio 21.0 H Glucose 80 Calcium 7.7 L Medical Necessity - Tobacco Use Smoking Status: Never smoker Assessment/Plan All Active Problems Acute blood loss anemia (Acute) Encounter for adjustment or management of vascular access device (Acute) Severe sepsis (Resolved) 1. 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 2. Nonhealing ulcer central aspect lower anterior abdominal wall. 3. Borderline diabetes. 4. Abdominal wall skin crease intertrigo. 5. Morbid obesity. 6. Incisional hernia. 7. History of methicillin resistant Staphylococcus hominis hominis. 8. s/p surgical preparation right lateral abdominal wall massive panniculus with excisional debridement skin and subcutaneous tissue for necrotizing soft tissue infection and panniculectomy (858 cm2). 9. Anemia of chronic disease, acute on chronic. 10. Hypophosphatemia. Wound is stable. VAC in place. Small amount of drainage in the canister. Hgb has decreased to 6.9 from 7.2. Is clinically stable at present. Will watch closely and repeat later today. Continue Iron supplementation. Fe studies are low. His I's/O's are positive about 6 liters contributing to dilution. Will give dose of Lasix today. Prealbumin is 12.0. Encourage nutritional supplementation with protein to help the healing process. K is low at 3.4. Continue K-Dur supplementation. Operative culture shows Staphylococcus simulans and Corynebacterium striatum and Corynebacterium amycolatum. Will stop the Vancomycin and start Levaquin. ECF evaluation in process.
[2018-09-24] MEDS: oxyCODONE 5 MG Tablet PO (18:16)
[2018-09-24] MEDS: levoFLOXacin 500 MG Tablet PO (20:03)
[2018-09-24 20:50] LABS: Hematocrit 23.4 % (37-47); Hemoglobin 7.2 g/dl (12.0-15.0)
[2018-09-24 20:54] LABS: Potassium 3.4 mmol/L (3.5-5.1)
[2018-09-25] VITALS (16 sets, daily range): BP systolic 91–126; BP diastolic 53–65; PULSE 96–103; RESP 15–18; TEMP 36.6–37.3; O2SAT 95–98
[2018-09-25] MEDS: Enoxaparin 40 MG/0.4 ML Syringe SC (05:52)
[2018-09-25] MEDS: Nystatin Powder 15gm Bottle 1 APPLIC TOPICAL ×3 (05:52→21:22)
[2018-09-25] MEDS: levoFLOXacin 500 MG Tablet PO (05:52)
[2018-09-25] MEDS: Levothyroxine 100 MCG Tablet 200 MCG PO (05:52)
[2018-09-25 06:51] LABS: Hematocrit 22.8 % (37-47); Hemoglobin 6.9 g/dl (12.0-15.0); Mean Corp Hgb Conc 30.3 g/gl (32-36); Mean Corpuscular Hgb 25.4 pg (27.0-32.0); Mean Corpuscular Volume 83.8 fL (81-99); Platelet Count 227 K/mm3 (150-450); RBC Distribution Width CV 20.5 % (11.6-14.6); RBC Distribution Width SD 59.4 fl (35.1-43.9); Red Blood Count 2.72 M/mm3 (4.2-5.4); White Blood Count 13.3 K/mm3 (4.4-11.0)
[2018-09-25 06:52] LABS: Scan Indicated on CBC? Y/N YES- FLAGS NOTED
[2018-09-25 07:02] LABS: Anion Gap 7 (5-15); BUN 9 mg/dL (7-18); BUN/Creat Ratio 15.1 RATIO (10-20); Calcium,Total 7.9 mg/dL (8.5-10.1); Chloride 100 mmol/L (98-107); EST Glomerular Filtration Rate 117 mL/min (>60); Est Glom Filt Rate - Afr Amer 142 mL/min (>60); Estimated Creatinine Clearance 91.23 ml/min; Glucose 85 mg/dL (74-106); Potassium 3.7 mmol/L (3.5-5.1); Sodium Level 139 mmol/L (136-145)
[2018-09-25] MEDS: Alteplase 2 MG/2 ML Vial IV (09:05)
[2018-09-25] MEDS: Docusate Sodium 100 MG Capsule PO ×2 (09:07→21:17)
[2018-09-25] MEDS: buPROPion (XL) 150 MG TABLET.XL PO (09:07)
[2018-09-25] MEDS: Ascorbic Acid 500 MG Tablet PO ×2 (09:07→16:35)
[2018-09-25] MEDS: Loratadine 10 MG Tablet PO (09:08)
[2018-09-25] MEDS: hydroCHLOROthiazide 25 MG Tablet PO (09:08)
[2018-09-25] MEDS: Montelukast 10 MG Tablet PO (09:08)
[2018-09-25] MEDS: Sertraline 100 MG Tablet PO (09:09)
[2018-09-25] MEDS: Mupirocin Ointment 22gm Tube 1 APPLIC NASAL ×2 (09:10→21:20)
[2018-09-25] MEDS: Pantoprazole Sodium 20 MG Tablet PO ×2 (09:20→21:17)
--- NOTE | 2018-09-25 10:23 | PCM.PN.HOSP ---
Patient Problems: Active and Suspected Problems Acute blood loss anemia (Acute) Subjective: Some discomfort at the surgical site. Vitals/I&O's: Vital Signs Temp Pulse Resp BP Pulse Ox 36.9 C 100 18 107/61 98 09/25/18 09:16 09/25/18 09:16 09/25/18 09:16 09/25/18 09:16 09/25/18 09:16 Oxygen Flow Rate (L/min) 2 Oxygen Delivery Method Room Air Weight: 188.241 kg Body Mass Index (BMI) 78.4 Intake and Output for Last 24 Hours 09/23/18 09/24/18 09/25/18 23:59 23:59 23:59 Intake Total 2275 / 2275 6041 / 6041 185 / 185 Output Total 3100 / 3100 7850 / 7850 1000 / 1000 Balance -825 / -825 -1809 / -1809 -815 / -815 General: Alert, Cooperative, No apparent distress HEENT: Atraumatic, Normocephalic Oral: Moist Mucosa, No Gingival or Mucosal Lesions/ Ulcerations Neck: No Nodes, Thyroid Normal Size and Texture Lungs: Clear to auscultation, Normal air movement, No rhonchi, No wheeze Cardiovascular: Regular rate, Regular Rhythm, Normal S1, Normal S2, No murmurs Abdomen: Bowel Sounds Present, Soft, Non Tender, Non-Distended, No Hepato-splenomegaly Extremities: No edema, No Calf Tenderness Psych/Mental Status: Normal Affect, Appropriate Microbiology Past 72 Hours 09/21/18 11:34 Tissue - Other Gram Stain - Final 09/21/18 11:34 Tissue - Other Wound Culture - Final Staphylococcus simulans Corynebacterium striatum Corynebacterium amycolatum 09/21/18 16:35 Urine Catheter - Vitale Urine Culture - Final Culture exhibits no growth. Laboratory Results 09/24/18 12:34: Potassium 3.4 L 09/24/18 20:40: Hgb 7.2 L, Hct 23.4 L 09/24/18 20:40: Potassium 3.4 L 09/25/18 06:36: WBC 13.3 H, RBC 2.72 L, Hgb 6.9 L, Hct 22.8 L, MCV 83.8, MCH 25.4 L, MCHC 30.3 L, RDW 20.5 H, RDW Differential 59.4 H, Plt Count 227, MPV 10.0, Differential Comment 09/25/18 06:36: Sodium 139, Potassium 3.7, Chloride 100, Carbon Dioxide 32.0, Anion Gap 7, BUN 9, Creatinine 0.60, Estim Creat Clear Calc 91.23, Est GFR (MDRD) Af Amer 142, Est GFR (MDRD) Non-Af 117, BUN/Creatinine Ratio 15.1, Glucose 85, Calcium 7.9 L 09/25/18 09:25: Blood Type Pending, Antibody Screen Pending, Crossmatch See Detail Current Medications Acetaminophen (Tylenol) 650 mg PO Q6H PRN PRN PRN Reason: Mild Pain (scale 0-3)/T>100.7 Albuterol Sulfate (Ventolin Aerosols) 2.5 mg INHALATION Q2H PRN PRN PRN Reason: dyspnea, wheezing Ascorbic Acid (Vitamin C) [facility] Last Admin: 09/25/18 09:07 Dose: 500 mg Bupropion HCl (Wellbutrin Xl) 150 mg PO DAILY [facility] Last Admin: 09/25/18 09:07 Dose: 150 mg Docusate Sodium (Colace) 100 mg PO BID [facility] Last Admin: 09/25/18 09:07 Dose: 100 mg Enoxaparin Sodium (Lovenox) 40 mg SC DAILY@0600 [facility] Last Admin: 09/25/18 05:52 Dose: 40 mg Ferrous Sulfate (Ferrous Sulfate) 325 mg [facility] Last Admin: 09/25/18 09:07 Dose: Not Given Hydrochlorothiazide (Hctz) 25 mg PO DAILY [facility] Last Admin: 09/25/18 09:08 Dose: 25 mg Hydromorphone HCl (Dilaudid Inj) 1 mg IV Q3H PRN PRN PRN Reason: SEVERE PAIN (6-10/10) Last Admin: 09/22/18 05:06 Dose: 1 mg Sodium Chloride () 250 mls @ 15 mls/hr IV .[id number] PRN PRN Reason: SALINE FLUSH Last Admin: 09/24/18 04:41 Dose: 15 mls/hr Sodium Chloride () 500 mls @ 15 mls/hr IV .[id number] PRN PRN Reason: SALINE FLUSH Levofloxacin (Levaquin Tablet) 500 mg PO DAILY@0600 [facility] Last Admin: 09/25/18 05:52 Dose: 500 mg Levothyroxine Sodium (Synthroid) 200 mcg PO DAILY@0600 [facility] Last Admin: 09/25/18 05:52 Dose: 200 mcg Loratadine (Claritin) 10 mg PO DAILY [facility] Last Admin: 09/25/18 09:08 Dose: 10 mg Metformin HCl (Glucophage) 500 [facility] Last Admin: 09/25/18 09:08 Dose: 500 mg Montelukast Sodium (Singulair) 10 mg PO DAILY [facility] Last Admin: 09/25/18 09:08 Dose: 10 mg Mupirocin (Bactroban) 1 applic NASAL BID [facility]; Protocol Stop: 09/26/18 22:01 Last Admin: 09/25/18 09:10 Dose: 1 applic Naproxen (Naprosyn) 500 mg PO Q12H PRN PRN PRN Reason: HEADACHE Nutritional Formula (Royer - [place] Flavor) 1 [facility] Last Admin: 09/25/18 09:10 Dose: 1 packet Nutritional Formula (Lactose Free) (Ensure Clear) 120 ml PO TIDCM [facility] Last Admin: 09/25/18 09:06 Dose: 120 ml Nystatin (Mycostatin Powder) 1 applic TOPICAL TID [facility]; Protocol Last Admin: 09/25/18 05:52 Dose: 1 applicatio Ondansetron HCl (Zofran) 4 mg IV Q6H PRN PRN PRN Reason: NAUSEA Last Admin: 09/22/18 20:22 Dose: 4 mg Ondansetron HCl (Zofran Odt) 4 mg PO Q12H PRN PRN PRN Reason: NAUSEA Last Admin: 09/24/18 09:41 Dose: 4 mg Oxycodone HCl (Oxyir) 10 mg PO Q4H PRN PRN PRN Reason: SEVERE PAIN (6-10/10) Oxycodone HCl (Oxyir) 5 - 10 mg PO Q4H PRN PRN PRN Reason: Moderate Pain (pain scale 4-5) Last Admin: 09/24/18 18:16 Dose: 5 mg Pantoprazole Sodium (Protonix) 20 mg PO BID [facility] Last Admin: 09/25/18 09:20 Dose: 20 mg Potassium Chloride (K-Dur) 20 meq [facility] Last Admin: 09/25/18 09:08 Dose: 20 meq Promethazine HCl (Phenergan Tablet) 25 mg PO Q4H PRN PRN PRN Reason: NAUSEA/VOMITING Sertraline HCl (Zoloft) 100 mg PO DAILY [facility] Last Admin: 09/25/18 09:09 Dose: 100 mg Sodium Chloride () 5 - 15 ml IV UD PRN PRN Reason: SALINE FLUSH Last Admin: 09/23/18 20:28 Dose: 10 ml Sodium Chloride () 10 - 40 ml IV UD PRN PRN Reason: MULTILUMEN/HICMAN CATH FLUSH Last Admin: 09/24/18 04:41 Dose: 40 ml Medical Necessity - Tobacco Use Smoking Status: Never smoker Assessment/Plan All Active Problems Acute blood loss anemia (Acute) Encounter for adjustment or management of vascular access device (Acute) Severe sepsis (Resolved) 1. Acute blood loss anemia has remained fairly stable after the initial drop. given that it is 03/13, I ordered another unit of PRBCs After the transfusion, patient can be discharged to SNF, if deemed ok by the primary service. follow up H/H as outpt in 1 and 2 weeks. 2. Hypokalemia: resolved can discontinue scheduled potassium upon discharge 3. DVT proph: lovenox. would recommend continuing some form of DVT prophylaxis at SNF upon discharge given reluctance to engage in therapy (09/22 note) 4. Panniculitis s/p Debridement + MSSA, corynebacterium on Levaquin, would treat through 10/04 (10 days) Code Visit Inpatient E&M: 19272 Subs Hosp L2
--- NOTE | 2018-09-25 10:34 | PN_ITS ---
Patient Problems: Active and Suspected Problems Acute blood loss anemia (Acute) Subjective: Some discomfort at the surgical site. Vitals/I&O's: Vital Signs Temp Pulse Resp BP Pulse Ox 36.9 C 100 18 107/61 98 09/25/18 09:16 09/25/18 09:16 09/25/18 09:16 09/25/18 09:16 09/25/18 09:16 Oxygen Flow Rate (L/min) 2 Oxygen Delivery Method Room Air Weight: 188.241 kg Body Mass Index (BMI) 78.4 Intake and Output for Last 24 Hours 09/23/18 09/24/18 09/25/18 23:59 23:59 23:59 Intake Total 2275 / 2275 6041 / 6041 185 / 185 Output Total 3100 / 3100 7850 / 7850 1000 / 1000 Balance -825 / -825 -1809 / -1809 -815 / -815 General: Alert, Cooperative, No apparent distress HEENT: Atraumatic, Normocephalic Oral: Moist Mucosa, No Gingival or Mucosal Lesions/ Ulcerations Neck: No Nodes, Thyroid Normal Size and Texture Lungs: Clear to auscultation, Normal air movement, No rhonchi, No wheeze Cardiovascular: Regular rate, Regular Rhythm, Normal S1, Normal S2, No murmurs Abdomen: Bowel Sounds Present, Soft, Non Tender, Non-Distended, No Hepato- splenomegaly Extremities: No edema, No Calf Tenderness Psych/Mental Status: Normal Affect, Appropriate Microbiology Past 72 Hours 09/21/18 11:34 Tissue - Other Gram Stain - Final 09/21/18 11:34 Tissue - Other Wound Culture - Final Staphylococcus simulans Corynebacterium striatum Corynebacterium amycolatum 09/21/18 16:35 Urine Catheter - Vitale Urine Culture - Final Culture exhibits no growth. Laboratory Results 09/24/18 12:34: Potassium 3.4 L 09/24/18 20:40: Hgb 7.2 L, Hct 23.4 L 09/24/18 20:40: Potassium 3.4 L 09/25/18 06:36: WBC 13.3 H, RBC 2.72 L, Hgb 6.9 L, Hct 22.8 L, MCV 83.8, MCH 25.4 L, MCHC 30.3 L, RDW 20.5 H, RDW Differential 59.4 H, Plt Count 227, MPV 10.0, Differential Comment 09/25/18 06:36: Sodium 139, Potassium 3.7, Chloride 100, Carbon Dioxide 32.0, Anion Gap 7, BUN 9, Creatinine 0.60, Estim Creat Clear Calc 91.23, Est GFR (MDRD) Af Amer 142, Est GFR (MDRD) Non-Af 117, BUN/Creatinine Ratio 15.1, Glucose 85, Calcium 7.9 L 09/25/18 09:25: Blood Type Pending, Antibody Screen Pending, Crossmatch See Detail Current Medications Acetaminophen (Tylenol) 650 mg PO Q6H PRN PRN PRN Reason: Mild Pain (scale 0-3)/T>100.7 Albuterol Sulfate (Ventolin Aerosols) 2.5 mg INHALATION Q2H PRN PRN PRN Reason: dyspnea, wheezing Ascorbic Acid (Vitamin C) [facility] Last Admin: 09/25/18 09:07 Dose: 500 mg Bupropion HCl (Wellbutrin Xl) 150 mg PO DAILY [facility] Last Admin: 09/25/18 09:07 Dose: 150 mg Docusate Sodium (Colace) 100 mg PO BID [facility] Last Admin: 09/25/18 09:07 Dose: 100 mg Enoxaparin Sodium (Lovenox) 40 mg SC DAILY@0600 [facility] Last Admin: 09/25/18 05:52 Dose: 40 mg Ferrous Sulfate (Ferrous Sulfate) [facility] Last Admin: 09/25/18 09:07 Dose: Not Given Hydrochlorothiazide (Hctz) 25 mg PO DAILY [facility] Last Admin: 09/25/18 09:08 Dose: 25 mg Hydromorphone HCl (Dilaudid Inj) 1 mg IV Q3H PRN PRN PRN Reason: SEVERE PAIN (6-10/10) Last Admin: 09/22/18 05:06 Dose: 1 mg Sodium Chloride () 250 mls @ 15 mls/hr IV .[id number] PRN PRN Reason: SALINE FLUSH Last Admin: 09/24/18 04:41 Dose: 15 mls/hr Sodium Chloride () 500 mls @ 15 mls/hr IV .[id number] PRN PRN Reason: SALINE FLUSH Levofloxacin (Levaquin Tablet) 500 mg PO DAILY@0600 [facility] Last Admin: 09/25/18 05:52 Dose: 500 mg Levothyroxine Sodium (Synthroid) 200 mcg PO DAILY@0600 [facility] Last Admin: 09/25/18 05:52 Dose: 200 mcg Loratadine (Claritin) 10 mg PO DAILY [facility] Last Admin: 09/25/18 09:08 Dose: 10 mg Metformin HCl (Glucophage) [facility] Last Admin: 09/25/18 09:08 Dose: 500 mg Montelukast Sodium (Singulair) 10 mg PO DAILY [facility] Last Admin: 09/25/18 09:08 Dose: 10 mg Mupirocin (Bactroban) 1 applic NASAL BID [facility]; Protocol Stop: 09/26/18 22:01 Last Admin: 09/25/18 09:10 Dose: 1 applic Naproxen (Naprosyn) 500 mg PO Q12H PRN PRN PRN Reason: HEADACHE Nutritional Formula (Royer - [place] Flavor) [facility] Last Admin: 09/25/18 09:10 Dose: 1 packet Nutritional Formula (Lactose Free) (Ensure Clear) 120 ml PO TIDCM [facility] Last Admin: 09/25/18 09:06 Dose: 120 ml Nystatin (Mycostatin Powder) 1 applic TOPICAL TID [facility]; Protocol Last Admin: 09/25/18 05:52 Dose: 1 applicatio Ondansetron HCl (Zofran) 4 mg IV Q6H PRN PRN PRN Reason: NAUSEA Last Admin: 09/22/18 20:22 Dose: 4 mg Ondansetron HCl (Zofran Odt) 4 mg PO Q12H PRN PRN PRN Reason: NAUSEA Last Admin: 09/24/18 09:41 Dose: 4 mg Oxycodone HCl (Oxyir) 10 mg PO Q4H PRN PRN PRN Reason: SEVERE PAIN (6-10/10) Oxycodone HCl (Oxyir) 5 - 10 mg PO Q4H PRN PRN PRN Reason: Moderate Pain (pain scale 4-5) Last Admin: 09/24/18 18:16 Dose: 5 mg Pantoprazole Sodium (Protonix) 20 mg PO BID [facility] Last Admin: 09/25/18 09:20 Dose: 20 mg Potassium Chloride (K-Dur) [facility]q [facility] Last Admin: 09/25/18 09:08 Dose: 20 meq Promethazine HCl (Phenergan Tablet) 25 mg PO Q4H PRN PRN PRN Reason: NAUSEA/VOMITING Sertraline HCl (Zoloft) 100 mg PO DAILY [facility] Last Admin: 09/25/18 09:09 Dose: 100 mg Sodium Chloride () 5 - 15 ml IV UD PRN PRN Reason: SALINE FLUSH Last Admin: 09/23/18 20:28 Dose: 10 ml Sodium Chloride () 10 - 40 ml IV UD PRN PRN Reason: MULTILUMEN/HICMAN CATH FLUSH Last Admin: 09/24/18 04:41 Dose: 40 ml Medical Necessity - Tobacco Use Smoking Status: Never smoker Assessment/Plan All Active Problems Acute blood loss anemia (Acute) Encounter for adjustment or management of vascular access device (Acute) Severe sepsis (Resolved) 1. Acute blood loss anemia * has remained fairly stable after the initial drop. * given that it is 03/13, I ordered another unit of PRBCs * After the transfusion, patient can be discharged to SNF, if deemed ok by the primary service. * follow up H/H as outpt in 1 and 2 weeks. 2. Hypokalemia: * resolved * can discontinue scheduled potassium upon discharge 3. DVT proph: lovenox. would recommend continuing some form of DVT prophylaxis at SNF upon discharge given reluctance to engage in therapy (09/22 note) 4. Panniculitis * s/p Debridement * + MSSA, corynebacterium * on Levaquin, would treat through 10/04 (10 days) Code Visit Inpatient E&M: 95567 Subs Hosp L2
[2018-09-25] MEDS: oxyCODONE 5 MG Tablet 10 MG PO (10:54)
--- NOTE | 2018-09-25 11:38 | PCM.PN.SRG ---
Subjective: Postop #4 Patient is resting comfortably. - Physical Exam General: Alert, Oriented x3 HEENT: PERRLA, EOMI Oral: Moist Mucosa Neck: Supple Abdomen: Soft, Non-Distended Skin: Ulcer/ Wound - wound is stable. No active bleeding noted. VAC in place. Small amount drainage in the canister. Neurological: Cranial nerves II-XII grossly intact Psych/Mental Status: Normal Affect, Appropriate Vital Signs Temp Pulse Resp BP Pulse Ox 98.4 F 100 18 107/61 98 09/25/18 09:16 09/25/18 09:16 09/25/18 09:16 09/25/18 09:16 09/25/18 09:16 Oxygen Flow Rate (L/min) 2 Oxygen Delivery Method Room Air Weight: 415 lb 0.006 oz Body Mass Index (BMI) 78.4 Intake and Output for Last 24 Hours 09/23/18 09/24/18 09/25/18 23:59 23:59 23:59 Intake Total 2275 / 2275 6041 / 6041 185 / 185 Output Total 3100 / 3100 7850 / 7850 1000 / 1000 Balance -825 / -825 -1809 / -1809 -815 / -815 Microbiology Past 72 Hours 09/21/18 11:34 Gram Stain - Final Tissue - Other Wound Culture - Final Staphylococcus simulans Corynebacterium striatum Corynebacterium amycolatum 09/21/18 16:35 Urine Culture - Final Urine Catheter - Vitale Culture exhibits no growth. Laboratory Tests Past 24 Hrs 09/24/18 09/24/18 09/24/18 12:34 20:40 20:40 WBC RBC Hgb 7.2 L Hct 23.4 L MCV MCH MCHC RDW RDW Differential Plt Count MPV Differential Comment Sodium Potassium 3.4 L 3.4 L Chloride Carbon Dioxide Anion Gap BUN Creatinine Estim Creat Clear Calc Est GFR (MDRD) Af Amer Est GFR (MDRD) Non-Af BUN/Creatinine Ratio Glucose Calcium Blood Type Antibody Screen Crossmatch 09/25/18 09/25/18 09/25/18 06:36 06:36 09:25 WBC 13.3 H RBC 2.72 L Hgb 6.9 L Hct 22.8 L MCV 83.8 MCH 25.4 L MCHC 30.3 L RDW 20.5 H RDW Differential 59.4 H Plt Count 227 MPV 10.0 Differential Comment Sodium 139 Potassium 3.7 Chloride 100 Carbon Dioxide 32.0 Anion Gap 7 BUN 9 Creatinine 0.60 Estim Creat Clear Calc 91.23 Est GFR (MDRD) Af Amer 142 Est GFR (MDRD) Non-Af 117 BUN/Creatinine Ratio 15.1 Glucose 85 Calcium 7.9 L Blood Type A POSITIVE Antibody Screen NEGATIVE Crossmatch See Detail Medical Necessity - Tobacco Use Smoking Status: Never smoker Assessment/Plan All Active Problems Open wound of lateral abdominal wall (Acute) Acute blood loss anemia (Acute) Encounter for adjustment or management of vascular access device (Acute) Severe sepsis (Resolved) 1. 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 2. Nonhealing ulcer central aspect lower anterior abdominal wall. 3. Borderline diabetes. 4. Abdominal wall skin crease intertrigo. 5. Morbid obesity. 6. Incisional hernia. 7. History of methicillin resistant Staphylococcus hominis hominis. 8. s/p surgical preparation right lateral abdominal wall massive panniculus with excisional debridement skin and subcutaneous tissue for necrotizing soft tissue infection and panniculectomy (858 cm2). 9. Anemia of chronic disease, acute on chronic. 10. Hypophosphatemia, improving. Wound is stable. VAC in place. Small amount of drainage in the canister. Hgb had increased to 7.2 from 6.9. It has drifted back down to 6.9. Will give PRBC today. Would like it in the 8-9 range when she goes to the ECF. Continue Iron supplementation. Fe studies are low. His I's/O's are positive about 4.5 liters contributing to dilution. There was some increased diuresis with the Lasix. Prealbumin is 12.0. Encourage nutritional supplementation with protein to help the healing process. K is low at 3.4. Continue K-Dur supplementation. Operative culture shows Staphylococcus simulans and Corynebacterium striatum and Corynebacterium amycolatum. Continue Levaquin. ECF evaluation in process. Code Visit Inpatient E&M: 52560 Subs Hosp L2 - ICD-10 - E65, M79.3, S31.109A, M79.89, E66.9, L30.4, D62, K43.2, R73.03
--- NOTE | 2018-09-25 11:40 | NURSING ---
Talked with Doctor Hendricks who states pt can get 2 units of PRBC- Recieved call from lab ashley that unit is ready, notified ashley that doctor maría would like 2 units given, ashley states he can add a second unit to this req
[2018-09-26 01:34] VITALS: PULSE 96
[2018-09-26 04:23] VITALS: PULSE 92
[2018-09-26 04:53] VITALS: BP 103/62; PULSE 95; RESP 15; TEMP 36.6; O2SAT 96
[2018-09-26] MEDS: Levothyroxine 100 MCG Tablet 200 MCG PO (04:57)
[2018-09-26] MEDS: levoFLOXacin 500 MG Tablet PO (04:58)
[2018-09-26] MEDS: Nystatin Powder 15gm Bottle 1 APPLIC TOPICAL (04:58)
[2018-09-26] MEDS: Enoxaparin 40 MG/0.4 ML Syringe SC (04:58)
[2018-09-26 05:00] VITALS: RESP 15
[2018-09-26 07:33] LABS: Absolute Lymphocyte Count 2.22 X10^3/ul (0.83-4.51); Absolute Neutrophil Count 7.6 X10^3/uL (2.0-7.7); Basophil# 0.04 X10^3/uL; Basophil% 0.3 % (0-1); Eosinophil# 0.59 X10^3/uL; Hematocrit 28.1 % (37-47); Hemoglobin 8.7 g/dl (12.0-15.0); Lymphocyte # 2.22 X10^3/ul (4.0); Mean Corpuscular Hgb 26.3 pg (27.0-32.0); Mean Corpuscular Volume 84.9 fL (81-99); Mean Platelet Vol. 10.4 fl (6.2-12.0); Monocyte# 1.15 X10^3/uL; Monocyte% 9.8 % (0-10); Neutrophil # 7.61 X10^3/uL (2.7-7.7); Neutrophil % 65.1 % (47-70); POSITIVE COUNT NO; POSITIVE DIFFERENTIAL NO; POSITIVE MORPHOLOGY NO; Platelet Count 263 K/mm3 (150-450); RBC Distribution Width CV 18.9 % (11.6-14.6); RBC Distribution Width SD 57.2 fl (35.1-43.9); Red Blood Count 3.31 M/mm3 (4.2-5.4); White Blood Count 11.7 K/mm3 (4.4-11.0)
[2018-09-26 07:54] VITALS: PULSE 96
[2018-09-26 07:55] LABS: Anion Gap 7 (5-15); BUN 10 mg/dL (7-18); BUN/Creat Ratio 18.9 RATIO (10-20); Calcium,Total 8.2 mg/dL (8.5-10.1); Chloride 101 mmol/L (98-107); Creatinine, Serum 0.53 mg/dL (0.55-1.02); EST Glomerular Filtration Rate 134 mL/min (>60); Est Glom Filt Rate - Afr Amer 162 mL/min (>60); Estimated Creatinine Clearance 103.28 ml/min; Glucose 81 mg/dL (74-106); Potassium 3.7 mmol/L (3.5-5.1); Sodium Level 140 mmol/L (136-145)
[2018-09-26] MEDS: buPROPion (XL) 150 MG TABLET.XL PO (08:37)
[2018-09-26] MEDS: Ferrous Sulfate 325 MG Tablet PO (08:37)
[2018-09-26] MEDS: Docusate Sodium 100 MG Capsule PO (08:37)
[2018-09-26] MEDS: Ascorbic Acid 500 MG Tablet PO (08:37)
[2018-09-26] MEDS: hydroCHLOROthiazide 25 MG Tablet PO (08:37)
[2018-09-26] MEDS: Pantoprazole Sodium 20 MG Tablet PO (08:38)
[2018-09-26] MEDS: Loratadine 10 MG Tablet PO (08:38)
[2018-09-26] MEDS: Mupirocin Ointment 22gm Tube 1 APPLIC NASAL (08:38)
[2018-09-26] MEDS: Montelukast 10 MG Tablet PO (08:38)
[2018-09-26] MEDS: Sertraline 100 MG Tablet PO (08:39)
[2018-09-26 08:44] VITALS: BP 102/60; PULSE 102; RESP 18; TEMP 37.1; O2SAT 96
--- NOTE | 2018-09-26 10:09 | PN_ITS ---
Patient Problems: Active and Suspected Problems Acute blood loss anemia (Acute) Subjective: feeling well. no new complaints. Vitals/I&O's: Vital Signs Temp Pulse Resp BP Pulse Ox 37.1 C 102 H 18 102/60 96 09/26/18 08:44 09/26/18 08:44 09/26/18 08:44 09/26/18 08:44 09/26/18 08:44 Oxygen Flow Rate (L/min) 2 Oxygen Delivery Method Room Air Weight: 188.241 kg Body Mass Index (BMI) 78.4 Intake and Output for Last 24 Hours 09/24/18 09/25/18 09/26/18 23:59 23:59 23:59 Intake Total 6041 / 6041 2285 / 2285 550 / 550 Output Total 7850 / 7850 2750 / 2750 2200 / 2200 Balance -1809 / -1809 -465 / -465 -1650 / -1650 General: Alert, Cooperative, No apparent distress HEENT: Atraumatic, Normocephalic Oral: Moist Mucosa, No Gingival or Mucosal Lesions/ Ulcerations Neck: No Nodes, Thyroid Normal Size and Texture Lungs: Clear to auscultation, Normal air movement, No rhonchi, No wheeze Cardiovascular: Regular rate, Regular Rhythm, Normal S1, Normal S2, No murmurs Abdomen: Bowel Sounds Present, Soft, Non Tender, Non-Distended, No Hepato- splenomegaly, Obese Psych/Mental Status: Normal Affect, Appropriate Microbiology Past 72 Hours 09/21/18 11:34 Tissue - Other Gram Stain - Final 09/21/18 11:34 Tissue - Other Wound Culture - Final Staphylococcus simulans Corynebacterium striatum Corynebacterium amycolatum 09/21/18 16:35 Urine Catheter - Vitale Urine Culture - Final Culture exhibits no growth. Laboratory Results 09/25/18 09:25: Blood Type A POSITIVE, Antibody Screen NEGATIVE, Crossmatch See Detail 09/26/18 07:19: WBC 11.7 H, RBC 3.31 L, Hgb 8.7 L, Hct 28.1 L, MCV 84.9, MCH 26.3 L, MCHC 31.0 L, RDW 18.9 H, RDW Differential 57.2 H, Plt Count 263, MPV 10.4, Immature Gran % (Auto) 0.800, Neut % (Auto) 65.1, Lymph % (Auto) 19.0, [place] % (Auto) 9.8, Eos % (Auto) 5.0, Baso % (Auto) 0.3, Absolute Neuts (auto) 7.6, Absolute Lymphs (auto) 2.22, Total Counted Not Reportable 09/26/18 07:19: Sodium 140, Potassium 3.7, Chloride 101, Carbon Dioxide 32.0, Anion Gap 7, BUN 10, Creatinine 0.53 L, Estim Creat Clear Calc 103.28, Est GFR (MDRD) Af Amer 162, Est GFR (MDRD) Non-Af 134, BUN/Creatinine Ratio 18.9, Glucose 81, Calcium 8.2 L Current Medications Acetaminophen (Tylenol) 650 mg PO Q6H PRN PRN PRN Reason: Mild Pain (scale 0-3)/T>100.7 Albuterol Sulfate (Ventolin Aerosols) 2.5 mg INHALATION Q2H PRN PRN PRN Reason: dyspnea, wheezing Ascorbic [facility] ([facility]itamin C) [facility] [address] Last Admin: 09/26/18 08:37 Dose: 500 mg Bupropion HCl (Wellbutrin Xl) 150 mg PO DAILY [facility] Last Admin: 09/26/18 08:37 Dose: 150 mg Docusate Sodium (Colace) 100 mg PO BID [facility] Last Admin: 09/26/18 08:37 Dose: 100 mg Enoxaparin Sodium (Lovenox) 40 mg SC DAILY@0600 [facility] Last Admin: 09/26/18 04:58 Dose: 40 mg Ferrous Sulfate (Ferrous Sulfate) [facility] Last Admin: 09/26/18 08:37 Dose: 325 mg Hydrochlorothiazide (Hctz) 25 mg PO DAILY [facility] Last Admin: 09/26/18 08:37 Dose: 25 mg Hydromorphone HCl (Dilaudid Inj) 1 mg IV Q3H PRN PRN PRN Reason: SEVERE PAIN (6-10/10) Last Admin: 09/22/18 05:06 Dose: 1 mg Sodium Chloride () 250 mls @ 15 mls/hr IV .[id number] PRN PRN Reason: SALINE FLUSH Last Admin: 09/24/18 04:41 Dose: 15 mls/hr Sodium Chloride () 500 mls @ 15 mls/hr IV .[id number] PRN PRN Reason: SALINE FLUSH Levofloxacin (Levaquin Tablet) 500 mg PO DAILY@0600 [facility] Last Admin: 09/26/18 04:58 Dose: 500 mg Levothyroxine Sodium (Synthroid) 200 mcg PO DAILY@0600 [facility] Last Admin: 09/26/18 04:57 Dose: 200 mcg Loratadine (Claritin) 10 mg PO DAILY [facility] Last Admin: 09/26/18 08:38 Dose: 10 mg Metformin HCl (Glucophage) 500 mg PO BIDCM [facility] Last Admin: 09/26/18 08:38 Dose: 500 mg Montelukast Sodium (Singulair) 10 mg PO DAILY [facility] Last Admin: 09/26/18 08:38 Dose: 10 mg Mupirocin (Bactroban) 1 applic NASAL BID [facility]; Protocol Stop: 09/26/18 22:01 Last Admin: 09/26/18 08:38 Dose: 1 applic Naproxen (Naprosyn) 500 mg PO Q12H PRN PRN PRN Reason: HEADACHE Nutritional Formula (Royer - [place] Flavor) 1 packet PO BIDCM [facility] Last Admin: 09/26/18 08:36 Dose: 1 packet Nutritional Formula (Lactose Free) (Ensure Clear) 120 ml PO TIDCM [facility] Last Admin: 09/26/18 08:36 Dose: 120 ml Nystatin (Mycostatin Powder) 1 applic TOPICAL TID [facility]; Protocol Last Admin: 09/26/18 04:58 Dose: 1 applicatio Ondansetron HCl (Zofran) 4 mg IV Q6H PRN PRN PRN Reason: NAUSEA Last Admin: 09/22/18 20:22 Dose: 4 mg Ondansetron HCl (Zofran Odt) 4 mg PO Q12H PRN PRN PRN Reason: NAUSEA Last Admin: 09/24/18 09:41 Dose: 4 mg Oxycodone HCl (Oxyir) 10 mg PO Q4H PRN PRN PRN Reason: SEVERE PAIN (6-10/10) Last Admin: 09/25/18 10:54 Dose: 10 mg Oxycodone HCl (Oxyir) 5 - 10 mg PO Q4H PRN PRN PRN Reason: Moderate Pain (pain scale 4-5) Last Admin: 09/24/18 18:16 Dose: 5 mg Pantoprazole Sodium (Protonix) 20 mg PO BID [facility] Last Admin: 09/26/18 08:38 Dose: 20 mg Potassium Chloride (K-Dur) [facility] Last Admin: 09/26/18 08:39 Dose: 20 meq Promethazine HCl (Phenergan Tablet) 25 mg PO Q4H PRN PRN PRN Reason: NAUSEA/VOMITING Sertraline HCl (Zoloft) 100 mg PO DAILY [facility] Last Admin: 09/26/18 08:39 Dose: 100 mg Sodium Chloride () 5 - 15 ml IV UD PRN PRN Reason: SALINE FLUSH Last Admin: 09/23/18 20:28 Dose: 10 ml Sodium Chloride () 10 - 40 ml IV UD PRN PRN Reason: MULTILUMEN/HICMAN CATH FLUSH Last Admin: 09/24/18 04:41 Dose: 40 ml Medical Necessity - Tobacco Use Smoking Status: Never smoker Assessment/Plan All Active Problems Open wound of lateral abdominal wall (Acute) Acute blood loss anemia (Acute) Encounter for adjustment or management of vascular access device (Acute) Severe sepsis (Resolved) 1. Acute blood loss anemia * improved after 2 addition untis (total 6) * follow up H/H as outpt in 1 and 2 weeks. 2. Hypokalemia: * resolved * can discontinue scheduled potassium upon discharge 3. DVT proph: lovenox. would recommend continuing some form of DVT prophylaxis at [facility] upon discharge given reluctance to engage in therapy (09/22 note) 4. Panniculitis * s/p Debridement * + MSSA, corynebacterium * on Levaquin, would treat through 10/04 (10 days) Code Visit Inpatient E&M: 20251 Subs Hosp L2
[2018-09-26] MEDS: oxyCODONE 5 MG Tablet 10 MG PO (11:19)
[2018-09-26] MEDS: Ondansetron ODT 4 MG Tablet PO (11:19)
--- NOTE | 2018-09-26 13:13 | PCM.PN.SRG ---
Subjective: Postop #5 Patient is resting comfortably. - Physical Exam General: Alert, Oriented x3 HEENT: Atraumatic, PERRLA, EOMI Oral: Moist Mucosa Neck: Supple Abdomen: Soft, Non-Distended Skin: Ulcer/ Wound - wound is stable. No active bleeding noted. VAC in place. Small amount drainage in the canister. Neurological: Cranial nerves II-XII grossly intact Psych/Mental Status: Normal Affect, Appropriate Vital Signs Temp Pulse Resp BP Pulse Ox 98.8 F 102 H 18 102/60 96 09/26/18 08:44 09/26/18 08:44 09/26/18 08:44 09/26/18 08:44 09/26/18 08:44 Oxygen Flow Rate (L/min) 2 Oxygen Delivery Method Room Air Weight: 415 lb 0.006 oz Body Mass Index (BMI) 78.4 Intake and Output for Last 24 Hours 09/24/18 09/25/18 09/26/18 23:59 23:59 23:59 Intake Total 6041 / 6041 2285 / 2285 550 / 550 Output Total 7850 / 7850 2750 / 2750 2500 / 2500 Balance -1809 / -1809 -465 / -465 -1950 / -1950 Microbiology Past 72 Hours 09/21/18 11:34 Gram Stain - Final Tissue - Other Wound Culture - Final Staphylococcus simulans Corynebacterium striatum Corynebacterium amycolatum 09/21/18 16:35 Urine Culture - Final Urine Catheter - Vitale Culture exhibits no growth. Laboratory Tests Past 24 Hrs 09/25/18 09/26/18 09/26/18 09:25 07:19 07:19 WBC 11.7 H RBC 3.31 L Hgb 8.7 L Hct 28.1 L MCV 84.9 MCH 26.3 L MCHC 31.0 L RDW 18.9 H RDW Differential 57.2 H Plt Count 263 MPV 10.4 Immature Gran % (Auto) 0.800 Neut % (Auto) 65.1 Lymph % (Auto) 19.0 [place] % (Auto) 9.8 Eos % (Auto) 5.0 Baso % (Auto) 0.3 Absolute Neuts (auto) 7.6 Absolute Lymphs (auto) 2.22 Total Counted Not Reportable Sodium 140 Potassium 3.7 Chloride 101 Carbon Dioxide 32.0 Anion Gap 7 BUN 10 Creatinine 0.53 L Estim Creat Clear Calc 103.28 Est GFR (MDRD) Af Amer 162 Est GFR (MDRD) Non-Af 134 BUN/Creatinine Ratio 18.9 Glucose 81 Calcium 8.2 L Blood Type A POSITIVE Antibody Screen NEGATIVE Crossmatch See Detail Medical Necessity - Tobacco Use Smoking Status: Never smoker Assessment/Plan All Active Problems Open wound of lateral abdominal wall (Acute) Acute blood loss anemia (Acute) Encounter for adjustment or management of vascular access device (Acute) Severe sepsis (Resolved) 1. 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 2. Nonhealing ulcer central aspect lower anterior abdominal wall. 3. Borderline diabetes. 4. Abdominal wall skin crease intertrigo. 5. Morbid obesity. 6. Incisional hernia. 7. History of methicillin resistant Staphylococcus hominis hominis. 8. s/p surgical preparation right lateral abdominal wall massive panniculus with excisional debridement skin and subcutaneous tissue for necrotizing soft tissue infection and panniculectomy (858 cm2). 9. Anemia of chronic disease, acute on chronic. 10. Hypophosphatemia, improving. Wound is stable. VAC in place. Small amount of drainage in the canister. Hgb had increased to 8.7 after PRBC. Continue Iron supplementation. Fe studies are low. Her I's/O's are positive about 3 liters contributing to dilution. There was some increased diuresis with the Lasix. Prealbumin is 12.0. Encourage nutritional supplementation with protein to help the healing process. K has improved to 3.7. Continue K-Dur supplementation. Operative culture shows Staphylococcus simulans and Corynebacterium striatum and Corynebacterium amycolatum. Continue Levaquin. ECF evaluation has been approved. Discharge today. Vitale catheter was removed and she was able to void without difficulty. Followup at Wound Center in 3-4 weeks.
--- NOTE | 2018-09-26 13:20 | PCM.TXEXTCAR ---
- Diet 09/22/18 16:21 Diet: Calorie Controlled Food consistency:: Regular Liquid Consistency:: Regular/Thin Type of Dietary Supplement:: Glucerna Shake Is pt able to select menu?: Yes How many daily calories?: 2000 calorie Encourage nutritional supplementation with protein to help the healing process. - Routine Orders/Code Status Vitale Catheter Size: 16 - change monthly and prn Change Vitale Catheter: monthly and prn Routine Lab Work: CBC - in two weeks. fax results to wound center at [phone]. - Wound(s) ABD Wound Type: Open Surgical Wound Dressing Change: AntiMicrobial (Aquacel AG, etc) right abdomen Wound Type: Open Surgical Wound Dressing Change: VAC at 150 mmHg continuous suction - Suggestions for Active Care Change Position every (hours): 2 Hours to sit in a chair: 6 Times a day to sit in chair: 3 - Therapies Weight Bearing: Weight bearing as tolerated Physical Therapy: Eval and Treat - Problem/Diagnosis (1) Open wound of lateral abdominal wall Status: Acute Comment: open surgical wound right lateral abdominal wall Current Visit: Yes (2) Necrotizing soft tissue infection Status: Chronic Current Visit: Yes (3) Abdominal panniculus, symptomatic Status: Chronic Current Visit: No (4) Panniculitis Status: Chronic Current Visit: No (5) Erythema intertrigo Status: Chronic Comment: abdominal wall skin crease intertrigo Current Visit: No (6) Skin ulcer of abdominal wall with fat layer exposed Status: Chronic Current Visit: No (7) Incisional hernia Status: Chronic Current Visit: No (8) Acute blood loss anemia Status: Acute Current Visit: Yes - Allergies/Procedures Done in Hospital Allergies/Adverse Reactions: Allergies diphenhydramine HCl [From Benadryl] Allergy (Verified 09/17/18 14:22) Hives metronidazole [From Flagyl] Allergy (Verified 09/17/18 14:22) Rash venom-honey bee [bee venom (honey bee)] Allergy (Verified 09/17/18 14:22) Anaphylaxis aspirin Adverse Reaction (Verified 09/17/18 14:22) Upset Stomach codeine Adverse Reaction (Verified 09/17/18 14:22) Other ibuprofen Adverse Reaction (Verified 09/17/18 14:22) Upset Stomach Penicillins Adverse Reaction (Verified 09/17/18 14:22) Nausea Procedures: Wound Vac placement, - - 09/21/18 - Surgical preparation right lateral abdominal wall massive panniculus with excisional debridement skin and subcutaneous tissue for necrotizing soft tissue infection and panniculectomy (858 cm2). - Type of Care/Length of Stay Estimated LOS: More Than 30 Days Type of Care Needed: Skilled Rehab Potential: Fair Prognosis: Fair - Additional Orders/Day of Discharge H&P will serve as current which was dated: 09/20/18 Day of Discharge: 09/26/18 - Dietary and Speech Recommendations Dietitian Recommendations/Changes: Rec diet change to 2000 calorie controlled. Encourage pt to try Royer BID- states it makes her nauseated but consumption would be ideal for wound healing. Will continue ONS as ordered. - Follow Up Care Primary Care Physician: Franco Bardales DO [Primary Care Provider] - Please Follow Up With: Yrn Hendricks MD When: 4 weeks at wound center. call [phone] for appt. Please Follow Up With: Belinda Holbrook LIGHT RAIL VEHICLE OPERATOR-C When: 3 weeks at wound center. call [phone] for appt.
--- NOTE | 2018-09-26 13:25 | TREXTCAR_ITS ---
- Diet 09/22/18 16:21 Diet: Calorie Controlled Food consistency:: Regular Liquid Consistency:: Regular/Thin Type of Dietary Supplement:: Glucerna Shake Is pt able to select menu?: Yes How many daily calories?: 2000 calorie Encourage nutritional supplementation with protein to help the healing process. - Routine Orders/Code Status Vitale Catheter Size: 16 - change monthly and prn Change Vitale Catheter: monthly and prn Routine Lab Work: CBC - in two weeks. fax results to wound center at [phone]. - Wound(s) ABD Wound Type: Open Surgical Wound Dressing Change: AntiMicrobial (Aquacel AG, etc) right abdomen Wound Type: Open Surgical Wound Dressing Change: VAC at 150 mmHg continuous suction - Suggestions for Active Care Change Position every (hours): 2 Hours to sit in a chair: 6 Times a day to sit in chair: 3 - Therapies Weight Bearing: Weight bearing as tolerated Physical Therapy: Eval and Treat - Problem/Diagnosis (1) Open wound of lateral abdominal wall Status: Acute Comment: open surgical wound right lateral abdominal wall Current Visit: Yes (2) Necrotizing soft tissue infection Status: Chronic Current Visit: Yes (3) Abdominal panniculus, symptomatic Status: Chronic Current Visit: No (4) Panniculitis Status: Chronic Current Visit: No (5) Erythema intertrigo Status: Chronic Comment: abdominal wall skin crease intertrigo Current Visit: No (6) Skin ulcer of abdominal wall with fat layer exposed Status: Chronic Current Visit: No (7) Incisional hernia Status: Chronic Current Visit: No (8) Acute blood loss anemia Status: Acute Current Visit: Yes - Allergies/Procedures Done in Hospital Allergies/Adverse Reactions: Allergies diphenhydramine HCl [From Benadryl] Allergy (Verified 09/17/18 14:22) Hives metronidazole [From Flagyl] Allergy (Verified 09/17/18 14:22) Rash venom-honey bee [bee venom (honey bee)] Allergy (Verified 09/17/18 14:22) Anaphylaxis aspirin Adverse Reaction (Verified 09/17/18 14:22) Upset Stomach codeine Adverse Reaction (Verified 09/17/18 14:22) Other ibuprofen Adverse Reaction (Verified 09/17/18 14:22) Upset Stomach Penicillins Adverse Reaction (Verified 09/17/18 14:22) Nausea Procedures: Wound Vac placement, - - 09/21/18 - Surgical preparation right lateral abdominal wall massive panniculus with excisional debridement skin and subcutaneous tissue for necrotizing soft tissue infection and panniculectomy (858 cm2). - Type of Care/Length of Stay Estimated LOS: More Than 30 Days Type of Care Needed: Skilled Rehab Potential: Fair Prognosis: Fair - Additional Orders/Day of Discharge H&P will serve as current which was dated: 09/20/18 Day of Discharge: 09/26/18 - Dietary and Speech Recommendations Dietitian Recommendations/Changes: Rec diet change to 2000 calorie controlled. Encourage pt to try Royer BID- states it makes her nauseated but consumption would be ideal for wound healing. Will continue ONS as ordered. - Follow Up Care Primary Care Physician: Franco Bardales DO [Primary Care Provider] - Please Follow Up With: Yrn Hendricks MD When: 4 weeks at wound center. call [phone] for appt. Please Follow Up With: Belinda Holbrook CLEANER TOUCH UP WORKER-C When: 3 weeks at wound center. call [phone] for appt.
--- NOTE | 2018-09-26 13:30 | DS.PCM_ITS ---
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 Open surgical wound right lateral abdominal wall. Necrotizing soft tissue infection. Anemia of chronic disease, acute on chronic. Hypokalemia. - Secondary Discharge Diagnosis abdominal wall skin crease intertrigo Nonhealing ulcer central aspect lower anterior abdominal wall Incisional hernia Anxiety and depression Allergic rhinitis MARCE (obstructive sleep apnea) Obesity Asthma Prediabetes Hypertension Hypothyroid History of methicillin resistant Staphylococcus hominis hominis. Hospital Course and Treatment Imaging Results: Diagnostic Data Chest X-Ray 09/21/18 14:03 IMPRESSION: The tip of the left central line is at the junction of the superior vena cava and left brachiocephalic vein. Electronically Signed: iMchel Shannon MD at 14:27 EST Tel [phone], Service support , Consultations 09/21/18 17:25 Consult: Onc/Wound/kickboxing instructor Routine Comment: Hospitalist Group - Dr. Sanchez, Dr. Ambrose, and Dr. Madrigal. Civil Manager - Dr. Webber. General Surgery - Dr. Lobo. Operations: - - 09/21/18 - Surgical preparation right lateral abdominal wall massive panniculus with excisional debridement skin and subcutaneous tissue for necrotizing soft tissue infection and panniculectomy (858 cm2). Procedures: Aterial line placement, Blood transfusion, Central line placement, Wound vac placement Summary of Care Provided: The patient is a 43 year old F with a history of morbid obesity and borderline diabetes who presents with worsening pain and swelling in her massive abdominal panniculus mostly on the right side. The left side is much softer. This has a persistent nonhealing ulcer in the central aspect of the lower abdominal panniculus. She was hospitalized in May, and had surgery where she underwent surgical preparation lower anterior abdominal wall massive panniculus with excisional debridement nonhealing ulcer and skin and subcutaneous tissue for necrotizing soft tissue infection and panniculectomy (777 cm2). Operative cultures showed Methicillin resistant Staphylococcus hominis hominis and Anaero bes. She was treated with Vancomycin and Cleocin. She has a persistent ulceration centrally in the lower abdominal panniculus and is doing daily Silver dressing changes. She denies any fever. With the increasing pain and swelling in the right side of her massive panniculus, she presents today to begin surgical debridement which will be done in stages. On 09/21/18, the patient went to surgery and underwent surgical preparation right lateral abdominal wall massive panniculus with excisional debridement skin and subcutaneous tissue for necrotizing soft tissue infection and panniculectomy (858 cm2). During the surgery, there were issues with hypotension and aggressive fluid resuscitation was done. Postop she needed to go to the ICU for close monitoring and for continued aggressive resuscitation. She had an arterial line placed, a central line placed, and PRBC given. Her Hgb drifted down into the 6 range and after PRBC her Hgb at discharge was 8.7. She was also started on Iron supplementation. Hospitalist Group was consulted for medical management. Dr. Webber, Civil Manager, was consulted for management in the ICU. She stabilized and was discharged from the ICU the next day. Also postop her Potassium was low (less than 3) that needed Potassium supplementation. At discharge it was 3.7. Her Prealbumin was 12.0. Encouraged nutritional supplementation with protein to help the healing process. On the first postop day, the VAC was applied without difficulty. She was treated perioperatively with Vancomycin because of a previous culture that showed Methicillin resistant Staphylococcus hominis hominis. The operative culture showed Staphylococcus simulans, Corynebacterium striatum, and Corynebacterium amycolatum. The Vancomycin was stopped and she was started on Levaquin. On the 5th postop day, she was discharged to the [facility]. Her brady catheter was removed and she was able to void without difficulty. Will continue the VAC to be changed three times per week at 150 mmHg continuous suction. Will continue Iron supplementation. Will recheck a Hgb in 2 weeks. Will continue Levaquin for 30 days. Wrote scripts for Percocet for pain (50 tabs) and for Valium for spasm (20 tabs). Due to her inactivity, will continue Lovenox until she becomes more ambulatory. Followup at Wound Center in 3-4 weeks. Subjective: Patient resting comfortably. - Physical Exam General: Alert, Oriented x3 HEENT: PERRLA, EOMI Oral: Moist Mucosa Neck: Supple Abdomen: Soft, Non-Distended Skin: Ulcer/ Wound - wound is stable. No active bleeding noted. VAC in place. Small amount drainage in the canister. Neurological: Cranial nerves II-XII grossly intact Psych/Mental Status: Normal Affect, Appropriate Vital Signs Temp Pulse Resp BP Pulse Ox 98.8 F 102 H 18 102/60 96 09/26/18 08:44 09/26/18 08:44 09/26/18 08:44 09/26/18 08:44 09/26/18 08:44 Oxygen Flow Rate (L/min) 2 Oxygen Delivery Method Room Air Weight: 415 lb 0.006 oz Body Mass Index (BMI) 78.4 Intake and Output for Last 24 Hours 09/24/18 09/25/18 09/26/18 23:59 23:59 23:59 Intake Total 6041 / 6041 2285 / 2285 550 / 550 Output Total 7850 / 7850 2750 / 2750 2500 / 2500 Balance -1809 / -1809 -465 / -465 -1950 / -1950 Microbiology Past 72 Hours 09/21/18 11:34 Gram Stain - Final Tissue - Other Wound Culture - Final Staphylococcus simulans Corynebacterium striatum Corynebacterium amycolatum 09/21/18 16:35 Urine Culture - Final Urine Catheter - Brady Culture exhibits no growth. Laboratory Tests Past 24 Hrs 09/25/18 09/26/18 09/26/18 09:25 07:19 07:19 WBC 11.7 H RBC 3.31 L Hgb 8.7 L Hct 28.1 L MCV 84.9 MCH 26.3 L MCHC 31.0 L RDW 18.9 H RDW Differential 57.2 H Plt Count 263 MPV 10.4 Immature Gran % (Auto) 0.800 Neut % (Auto) 65.1 Lymph % (Auto) 19.0 [place] % (Auto) 9.8 Eos % (Auto) 5.0 Baso % (Auto) 0.3 Absolute Neuts (auto) 7.6 Absolute Lymphs (auto) 2.22 Total Counted Not Reportable Sodium 140 Potassium 3.7 Chloride 101 Carbon Dioxide 32.0 Anion Gap 7 BUN 10 Creatinine 0.53 L Estim Creat Clear Calc 103.28 Est GFR (MDRD) Af Amer 162 Est GFR (MDRD) Non-Af 134 BUN/Creatinine Ratio 18.9 Glucose 81 Calcium 8.2 L Blood Type A POSITIVE Antibody Screen NEGATIVE Crossmatch See Detail Discharge Diet: No Restrictions, - - encourage nutritional supplementation with protein to help the healing process. Discharge Activity: May Shower - on the days the vac is changed. May shower in (days): 2 - on days the vac is changed. Weight Bearing Status: Weight bearing as tolerated Call your doctor if your incision/area has: Continuous Slow Oozing, Sudden Increased Bleeding, Increased Pain/ Swelling, Increased Redness, Foul Smelling Discharge, Swelling at the incision site Call your doctor if you observe: Coldness, Increased Pain, Shortness of breath, Chest pain, Calf discomfort, Uncontrolled pain Suture Line Care: - - vac changes three times per week at 150 mmHg continuous suction. Change Dressing in (Days):: 2 - vac changes three times per week. Cleanse incision/area with: Soap & Water - may cleanse the wound with soap and water on the days the vac is changed., - - may shower on the days the vac is changed. Catheter: Brady to large bag Home Medications: Medications to take at Discharge Loratadine [Claritin] 10 mg PO DAILY 03/08/18 Montelukast Sodium [Singulair] 10 mg PO DAILY 03/08/18 Omeprazole [Prilosec] 20 mg PO DAILY 03/08/18 Sertraline HCl [Zoloft] 100 mg PO DAILY 03/08/18 Levothyroxine Sodium [Synthroid] 300 mcg PO DAILY 05/06/18 Naproxen Sodium [Aleve] 440 mg PO Q12H PRN PRN 05/06/18 Acetaminophen [Tylenol Tablet] 650 mg PO Q6H PRN PRN tablet 05/19/18 Albuterol Aerosols [Ventolin Aerosols] 2.5 mg INHALATION Q2H PRN PRN #1 box 05/19/18 Nystatin Powder [Mycostatin Powder] 1 applic TOPICAL TID #1 bottle 05/19/18 Hydrochlorothiazide [Hctz] 25 mg PO DAILY 08/02/18 Ondansetron [Zofran Odt] 4 mg PO Q12H PRN PRN 09/17/18 Ascorbic Acid [Vitamin C] 500 mg PO BIDCM tablet 09/26/18 Diazepam [Valium] 5 mg PO TID #20 tab 09/26/18 Docusate Sodium [Colace] 100 mg PO BID capsule 09/26/18 Enoxaparin [Lovenox] 40 mg SC DAILY@0600 syringe 09/26/18 Ensure Clear 120 ml PO TIDCM liquid 09/26/18 Ferrous Sulfate 325 mg PO BIDCM tablet 09/26/18 Metformin HCl [Glucophage] 500 mg PO BIDCM tablet 09/26/18 Mupirocin [Bactroban] 1 applic NASAL BID tube 09/26/18 Nutritional Supplement [Royer - ORANGE FLAVOR] 1 packet PO BIDCM packet 09/26/18 Oxycodone HCl/Acetaminophen [Percocet 5/325] 1 - 2 tab PO 4X/DAY PRN PRN 7 Days #50 tab 09/26/18 Pantoprazole Sodium [Protonix] 20 mg PO BID tablet 09/26/18 Potassium Chloride [K-Dur] 20 meq PO BIDCM tablet 09/26/18 buPROPion XL [Wellbutrin Xl] 150 mg PO DAILY tablet.xl 09/26/18 levoFLOXacin tablet [Levaquin tablet] 500 mg PO DAILY@0600 #30 tab 09/26/18 proMETHazine tablet [Phenergan tablet] 25 mg PO Q4H PRN PRN tablet 09/26/18 Following Prescrptions Were Given to Patient: levoFLOXacin tablet [Levaquin tablet] 500 mg PO DAILY@0600 #30 tab Oxycodone HCl/Acetaminophen [Percocet 5/325] 1 - 2 tab PO 4X/DAY PRN PRN 7 Days #50 tab PRN Reason: Pain Diazepam [Valium] 5 mg PO TID #20 tab Other Amb Orders: ,Urine Time Frame: 09/21/18, Location: Laboratory Primary Care Physician: Franco Bardales DO [Primary Care Provider] - Please Follow Up With: Yrn Hendricks MD When: 4 weeks at wound center. call [phone] for appt. Please Follow Up With: Belinda Holbrook NP-C When: 3 weeks at wound center. call [phone] for appt. Additional Instructions: Patient should have a CBC drawn in two weeks. Fax results to Wound Center at [phone]. Disposition: [facility] facility Minutes spent on discharge:: 35 Patient Condition:: Fair Medical Necessity - Tobacco Use Smoking Status: Never smoker Meaningful Use Info Meaningful Use Diagnoses (Choose all that apply): None applicable Code Visit Inpatient E&M: 58153 Disch Hosp - ICD-10 - E65, M79.3, S31.109A, M79.89, E66.9, L30.4, D62, K43.2, R73.03
--- NOTE | 2018-09-26 13:37 | PCM.TXEXTCAR ---
- Diet 09/22/18 16:21 Diet: Calorie Controlled Food consistency:: Regular Liquid Consistency:: Regular/Thin Type of Dietary Supplement:: Glucerna Shake Is pt able to select menu?: Yes How many daily calories?: 2000 calorie - Routine Orders/Code Status Vitale Catheter Size: 16 - change monthly and prn Change Vitale Catheter: monthly and prn Routine Lab Work: CBC - in two weeks. fax results to wound center at [phone]. - Wound(s) ABD Wound Type: Open Surgical Wound Dressing Change: AntiMicrobial (Aquacel AG, etc) right abdomen Wound Type: Open Surgical Wound Dressing Change: VAC at 150 mmHg continuous suction - Suggestions for Active Care Change Position every (hours): 2 Hours to sit in a chair: 6 Times a day to sit in chair: 3 - Therapies Weight Bearing: Weight bearing as tolerated Physical Therapy: Eval and Treat - Problem/Diagnosis (1) Open wound of lateral abdominal wall Status: Acute Comment: open surgical wound right lateral abdominal wall Current Visit: Yes (2) Necrotizing soft tissue infection Status: Chronic Current Visit: Yes (3) Abdominal panniculus, symptomatic Status: Chronic Current Visit: No (4) Panniculitis Status: Chronic Current Visit: No (5) Erythema intertrigo Status: Chronic Comment: abdominal wall skin crease intertrigo Current Visit: No (6) Skin ulcer of abdominal wall with fat layer exposed Status: Chronic Current Visit: No (7) Incisional hernia Status: Chronic Current Visit: No (8) Acute blood loss anemia Status: Acute Current Visit: Yes - Allergies/Procedures Done in Hospital Allergies/Adverse Reactions: Allergies diphenhydramine HCl [From Benadryl] Allergy (Verified 09/17/18 14:22) Hives metronidazole [From Flagyl] Allergy (Verified 09/17/18 14:22) Rash venom-honey bee [bee venom (honey bee)] Allergy (Verified 09/17/18 14:22) Anaphylaxis aspirin Adverse Reaction (Verified 09/17/18 14:22) Upset Stomach codeine Adverse Reaction (Verified 09/17/18 14:22) Other ibuprofen Adverse Reaction (Verified 09/17/18 14:22) Upset Stomach Penicillins Adverse Reaction (Verified 09/17/18 14:22) Nausea Procedures: Wound Vac placement, - - 09/21/18 - Surgical preparation right lateral abdominal wall massive panniculus with excisional debridement skin and subcutaneous tissue for necrotizing soft tissue infection and panniculectomy (858 cm2). - Type of Care/Length of Stay Estimated LOS: More Than 30 Days Type of Care Needed: Skilled Rehab Potential: Fair Prognosis: Fair - Additional Orders/Day of Discharge H&P will serve as current which was dated: 09/20/18 Day of Discharge: 09/26/18 - Dietary and Speech Recommendations Dietitian Recommendations/Changes: Rec diet change to 2000 calorie controlled. Encourage pt to try Royer BID- states it makes her nauseated but consumption would be ideal for wound healing. Will continue ONS as ordered. - Follow Up Care Primary Care Physician: Franco Bardales DO [Primary Care Provider] - Please Follow Up With: Yrn Hendricks MD When: 4 weeks at wound center. call [phone] for appt. Please Follow Up With: Belinda Holbrook NP-C When: 3 weeks at wound center. call [phone] for appt.
--- NOTE | 2018-09-26 13:53 | NURSING ---
CALL PLACED TO [facility] AND REPORT GIVEN TO NURSE WHOM WILL BE TAKING OVER CARE FOR THIS PATIENT
--- OUTSIDE RECORDS SUMMARY | 2018-12-23 11:29 | XMS RPT_ITS ---
:1975 Author Organization OHIP Support Name Relationship Address Phone CLINTON, PAT Unavailable [address] + [place] [address] UE Unavailable Unavailable Unavailable CLINTON, PAT Unavailable [address] + [place] [address] UE Unavailable Unavailable Unavailable CLINTON, PAT Unavailable [address] + [place] [address] UE Unavailable Unavailable Unavailable CLINTON, PAT Unavailable [address] + [place] [address] UE Unavailable Unavailable Unavailable CLINTON, PAT Unavailable [address] + [place] [address] UE Unavailable Unavailable Unavailable CLINTON, PAT Unavailable [address] + [place] [address] UE Unavailable Unavailable Unavailable CLINTON, PAT Unavailable [address] + [place] [address] UE Unavailable Unavailable Unavailable CLINTON, PAT Unavailable [address] + [place] [address] UE Unavailable Unavailable Unavailable CLINTON, PAT Unavailable [address] + [place] [address] UE Unavailable Unavailable Unavailable CLINTON, PAT Unavailable [address] + [place] [address] UE Unavailable Unavailable Unavailable CLINTON, PAT Unavailable [address] + [place] [address] UE Unavailable Unavailable Unavailable CLINTON, PAT Unavailable [address] + [place] [address] UE Unavailable Unavailable Unavailable CLINTON, PAT Unavailable [address] + [place] [address] UE Unavailable Unavailable Unavailable CLINTON, PAT Unavailable [address] + [place] [address] UE Unavailable Unavailable Unavailable CLINTON, PAT Unavailable [address] + [place] [address] UE Unavailable Unavailable Unavailable CLINTON, PAT Unavailable [address] + [place] [address] UE Unavailable Unavailable Unavailable CLINTON, PAT Unavailable [address] + [place] [address] UE Unavailable Unavailable Unavailable CLINTON, PAT Unavailable [address] + [place] [address] UE Unavailable Unavailable Unavailable CLINTON, PAT Unavailable [address] + [place] [address] UE Unavailable Unavailable Unavailable CLINTON, PAT Unavailable [address] + [place] [address] UE Unavailable Unavailable Unavailable CLINTON, PAT Unavailable [address] + [place] [address] UE Unavailable Unavailable Unavailable CLINTON, PAT Unavailable [address] + [place] [address] UE Unavailable Unavailable Unavailable CLINTON, PAT Unavailable [address] + [place] [address] UE Unavailable Unavailable Unavailable CLINTON, PAT Unavailable [address] + [place] [address] UE Unavailable Unavailable Unavailable CLINTON, PAT Unavailable [address] + [place] [address] UE Unavailable Unavailable Unavailable CLINTON, PAT Unavailable [address] + [place] [address] UE Unavailable Unavailable Unavailable CLINTON, PAT Unavailable [address] + [place] [address] UE Unavailable Unavailable Unavailable CLINTON, PAT Unavailable [address] + [place] [address] UE Unavailable Unavailable Unavailable CLINTON, PAT Unavailable [address] + [place] [address] COLEEN, YESI Unavailable [address] + [place] [address] UE Unavailable Unavailable Unavailable CLINTON, PAT Unavailable [address] + [place] [address] COLEEN, YESI Unavailable [address] + [place] [address] UE Unavailable Unavailable Unavailable CLINTON, PAT Unavailable [address] + [place] [address] COLEEN, YESI Unavailable [address] + [place] [address] UE Unavailable Unavailable Unavailable CLINTON, PAT Unavailable [address] + [place] [address] COLEEN, YESI Unavailable [address] + [place] [address] UE Unavailable Unavailable Unavailable CLINTON, PAT Unavailable [address] + [place] [address] COLEEN, YESI Unavailable [address] + [place] [address] UE Unavailable Unavailable Unavailable CLINTON, PAT Unavailable [address] + [place] [address] COLEEN, YESI Unavailable [address] + [place] [address] UE Unavailable Unavailable Unavailable CLINTON, PAT Unavailable [address] + [place] [address] COLEEN, YESI Unavailable [address] + [place] [address] UE Unavailable Unavailable Unavailable CLINTON, PAT Unavailable [address] + [place] [address] COLEEN, YESI Unavailable [address] + [place] [address] UE Unavailable Unavailable Unavailable CLINTON, PAT Unavailable [address] + [place] [address] COLEEN, YESI Unavailable [address] + [place] [address] UE Unavailable Unavailable Unavailable CLINTON, PAT Unavailable [address] + [place] [address] COLEEN, YESI Unavailable [address] + [place] [address] UE Unavailable Unavailable Unavailable CLINTON, PAT Unavailable [address] + [place] [address] COLEEN YESI Unavailable [address] + [place] [address] UE Unavailable Unavailable Unavailable CLINTON, PAT Unavailable [address] + [place] [address] COLEEN, YESI Unavailable [address] + [place] [address] UE Unavailable Unavailable Unavailable CLINTON, PAT Unavailable [address] + [place] [address] COLEEN, YESI Unavailable [address] + [place] [address] UE Unavailable Unavailable Unavailable CLINTON, PAT Unavailable [address] + [place] [address] COLEEN, YESI Unavailable [address] + [place] [address] UE Unavailable Unavailable Unavailable CLINTON, PAT Unavailable [address] + [place] [address] COLEEN, YESI Unavailable [address] + [place] [address] UE Unavailable Unavailable Unavailable CLINTON, PAT Unavailable [address] + [place] [address] COLEEN, YESI Unavailable [address] + [place] [address] UE Unavailable Unavailable Unavailable CLINTON, PAT Unavailable [address] + [place] [address] COLEEN, YESI Unavailable [address] + [place] [address] UE Unavailable Unavailable Unavailable CLINTON, PAT Unavailable [address] + [place] [address] COLEEN, YESI Unavailable [address] + [place] [address] UE Unavailable Unavailable Unavailable CLINTON, PAT Unavailable [address] + [place] [address] COLEEN, YESI Unavailable [address] + [place] [address] UE Unavailable Unavailable Unavailable CLINTON, PAT Unavailable [address] + [place] [address] COLEEN, YESI Unavailable [address] + [place] [address] UE Unavailable Unavailable Unavailable CLINTON, PAT Unavailable [address] + [place] [address] COLEEN, YESI Unavailable [address] + [place] [address] UE Unavailable Unavailable Unavailable CLINTON, PAT Unavailable [address] + [place] [address] COLEEN, YESI Unavailable [address] + [place] [address] UE Unavailable Unavailable Unavailable CLINTON, PAT Unavailable [address] + [place] [address] COLEEN, YESI Unavailable [address] + [place] [address] UE Unavailable Unavailable Unavailable CLINTON, PAT Unavailable [address] + [place] [address] COLEEN, YESI Unavailable [address] + [place] [address] UE Unavailable Unavailable Unavailable CLINTON, PAT Unavailable [address] + [place] [address] COLEEN, YESI Unavailable [address] + [place] [address] UE Unavailable Unavailable Unavailable CLINTON, PAT Unavailable [address] + [place] [address] COLEEN, YESI Unavailable [address] + [place] [address] UE Unavailable Unavailable Unavailable CLINTON, PAT Unavailable [address] + [place] [address] COLEEN, YESI Unavailable [address] + [place] [address] UE Unavailable Unavailable Unavailable CLINTON, PAT Unavailable [address] + [place] [address] YESI HORNE Unavailable [address] + [place] [address] UE Unavailable Unavailable Unavailable Care Team Providers Name Role Phone BARDALES, FRANCO L Attending Unavailable CORNIELLO, TRISHA L (MONKEY BREEDER) Attending Unavailable BARDALES, FRANCO L Referring Unavailable CORNIELLO, TRISHA L (MONKEY BREEDER) Referring Unavailable BARDALES, FRANCO L Referring Unavailable CORNIELLO, TRISHA L ([facility]) Attending Unavailable CORNIELLO, TRISHA L (MONKEY BREEDER) Attending Unavailable CORNIELLO, TRISHA L ([facility]) Attending Unavailable CORNIELLO, TRISHA L (MONKEY BREEDER) Referring Unavailable Gato Lobo Attending Unavailable Yrn Hendricks Referring Unavailable Bardales, Franco Primary Care Unavailable Yrn Hendricks Consulting Unavailable Jared mAbrose Attending Unavailable Yrn Hendricks Referring Unavailable Bardales, Franco Primary Care Unavailable Arnav Webber D.O. Consulting Unavailable Jared Ambrose Consulting Unavailable Yrn Hendricks Consulting Unavailable Arnav Webber D.O. Attending Unavailable Yrn Hendricks Referring Unavailable Bardales, Franco Primary Care Unavailable Arnav Webber D.O. Consulting Unavailable aJred Ambrose Consulting Unavailable Mary Sanchez Consulting Unavailable Yrn Hendricks Admitting Unavailable Arnav Webber D.O. Attending Unavailable Yrn Hendricks Referring Unavailable Bardales, Franco Primary Care Unavailable Halie, Jared Consulting Unavailable Arnav Webber D.O. Consulting Unavailable Yrn Hendricks Consulting Unavailable Bardales, Franco Primary Care Unavailable PERRY MAY Attending Unavailable Bardales, Franco Primary Care Unavailable Xiomara Bynum Attending Unavailable Bardales, Franco Primary Care Unavailable White, Cuca Admitting Unavailable White, Cuca Attending Unavailable Yrn Hendricks Consulting Unavailable Adonay Hollingsworth Consulting Unavailable Moisés Soriano Consulting Unavailable White, Cuca Admitting Unavailable White, Cuca Attending Unavailable Bardales, Franco Primary Care Unavailable White, Cuca Consulting Unavailable White, Cuca Admitting Unavailable Halie Jared Attending Unavailable Bardales, Franco Primary Care Unavailable Yrn Hendricks Consulting Unavailable Halie, Jared Consulting Unavailable White, Cuca Admitting Unavailable Jerry Madrigal Attending Unavailable Bardales, Franco Primary Care Unavailable Yrn Hendricks Consulting Unavailable Jerry Madrigal Consulting Unavailable White, Cuca Admitting Unavailable Jerry Madrigal Attending Unavailable Bardales, Franco Primary Care Unavailable Slaby, Yrn Consulting Unavailable Jopperi, Jerry Consulting Unavailable White, Cuca Admitting Unavailable Cleveland, Adonay Attending Un[facility] Unavailable Slaby, Yrn Consulting Unavailable Cleveland, Adonay Consulting Unavailable Jopperi, Jerry Consulting Unavailable White, Cuca Admitting Unavailable Calabretta, Gato Attending Unavailable [facility] Primary Care Unavailable Slaby, Yrn Consulting Unavailable Darrick, Adonay Consulting Unavailable Ashelfah, Ghasem Consulting Unavailable White, Cuca Admitting Unavailable Ashelfah, Ghasem Attending Unavailable [facility] Primary Care Unavailable Slaby, Yrn Consulting Unavailable Cleveland, Adonay Consulting Unavailable Ashelfah, Ghasem Consulting Unavailable White, Cuca Admitting Unavailable Slaby, Yrn Attending Unavailable [facility] Primary Care Unavailable Slaby, Yrn Consulting Unavailable Cleveland, Adonay Consulting Unavailable Ashelfah, Ghasem Consulting Unavailable White, Cuca Admitting Unavailable Ronalabretta, Gato Attending Unavailable [facility] Primary Care Unavailable Slaby, Yrn Consulting Unavailable Cleveland, Adonay Consulting Unavailable Ashelfah, Ghasem Consulting Unavailable White, Cuca Admitting Unavailable Ashelfah, Ghasem Attending Unavailable [facility] Primary Care Unavailable Slaby, Yrn Consulting Unavailable Cleveland, Adonay Consulting Unavailable Ashelfah, Ghasem Consulting Unavailable White, Cuca Admitting Unavailable Ashelfah, Ghasem Attending Unavailable [facility] Primary Care Unavailable Slaby, Yrn Consulting Unavailable Cleveland, Adonay Consulting Unavailable Ashelfah, Ghasem Consulting Unavailable White, Cuca Admitting Unavailable Slaby, Yrn Attending Unavailable [facility] Primary Care Unavailable Slaby, Yrn Consulting Unavailable Darrick, Adonay Consulting Unavailable Ashelfah, Ghasem Consulting Unavailable White, Cuca Admitting Unavailable Ashelfah, Ghasem Attending Unavailable [facility] Primary Care Unavailable Slaby, Yrn Consulting Unavailable Darrick, Adonay Consulting Unavailable Ashelfah, Ghasem Consulting Unavailable Slaby, Yrn Admitting Unavailable Slaby, Yrn Attending Unavailable [facility] Primary Care Unavailable Tereletsky, Jared Consulting Unavailable Jopperi, Jerry Referring Unavailable Víctor Urias.O. Consulting Unavailable Slaby, Yrn Consulting Unavailable Slaby, Yrn Admitting Unavailable Slaby, Yrn Attending Unavailable [facility] Primary Care Unavailable Tereletsky, Jared Consulting Unavailable Jopperi, Jerry Referring Unavailable Víctor Urias.O. Consulting Unavailable Slaby, Yrn Consulting Unavailable Slaby, Yrn Admitting Unavailable Slaby, Yrn Attending [facility]available [facility] Unavailable Tereletsky, Jared Consulting Unavailable Jopperi, Jerry Referring Unavailable Víctor Urias.O. Consulting Unavailable Slaby, Yrn Consulting Unavailable Slaby, Yrn Admitting Unavailable Sementi, Mary Attending Unavailable Slaby, Yrn Referring Unavailable [facility] Unavailable Tereletsky, Jared Consulting Unavailable Víctor Urias.O. Consulting Unavailable Slaby, Yrn Consulting Unavailable Slaby, Yrn Admitting Unavailable Sementi, Mary Attending Unavailable Slaby, Yrn Referring Unavailable [facility] Unavailable Tereletsky, Jared Consulting Unavailable Víctor Urias.O. Consulting Unavailable Slaby, Yrn Consulting Unavailable Slaby, Ryn Admitting Unavailable Slaby, Yrn Attending Unavailable [facility] Primary Care Unavailable Tereletsky, Jared Consulting Unavailable Jopperi, Jerry Referring Unavailable Víctor Urias.O. Consulting Unavailable Jopperi, Jerry Consulting Unavailable Slaby, Yrn Admitting Unavailable Jopperi, Jerry Attending Unavailable Slaby, Yrn Referring Unavailable [facility] Unavailable Tereletsky, Jared Consulting Unavailable Víctor Urias.O. Consulting Unavailable Jopperi, Jerry Consulting Unavailable Slaby, Yrn Admitting Unavailable Jopperi, Jerry Attending Unavailable Slaby, Yrn Referring Unavailable [facility] Unavailable Tereletsky, Jared Consulting Unavailable Víctor Urias.O. Consulting Unavailable Jopperi, Jerry Consulting Unavailable Slaby, Yrn Admitting Unavailable Slaby, Yrn Attending Unavailable [facility] Primary Care Unavailable Tereletsky, Jared Consulting Unavailable Jopperi, Jerry Referring Unavailable Arnav Webber, D.O. Consulting Unavailable Jopperi, Jerry Consulting Unavailable Slaby, Yrn Admitting Unavailable Slaby, Yrn Attending Unavailable [facility] Primary Care Unavailable Tereletsky, Jared Consulting Unavailable Jopperi, Jerry Referring Unavailable Arnav Webber, D.O. Consulting Unavailable Jopperi, Jerry Consulting Unavailable Slaby, Yrn Admitting Unavailable Slaby, Yrn Attending Unavailable [facility] Unavailable Tereletsky, Jared Consulting Unavailable Jopperi, Jerry Referring Unavailable Arnav Webber, D.O. Consulting Unavailable Jopperi, Jerry Consulting Unavailable Slaby, Yrn Attending Unavailable Bardales, Franco Primary Care Unavailable Sheron, Belinda E Attending Unavailable Bardales, Franco Primary Care Unavailable NevillePaul julienril Attending Unavailable Jerry Madrigal Referring Unavailable NevillePaul julienril Attending Unavailable Courtney Dean Referring Unavailable Sheron, Belinda E Attending Unavailable Bardales, Franco Primary Care Unavailable Sheron, Belinda E Consulting Unavailable Slaby, Yrn Referring Unavailable White, Cuca Admitting Unavailable Ashelfah, Ghasem Attending Unavailable Bardales, Franco Primary Care Unavailable Slaby, Yrn Consulting Unavailable Cleveland, Adonay Consulting Unavailable Ashelfah, Ghasem Consulting Unavailable White, Cuca Admitting Unavailable Slaby, Yrn Attending Unavailable Bardales, Franco Primary Care Unavailable Slaby, Yrn Consulting Unavailable Darrick, Adonay Consulting Unavailable Ashelfah, Ghasem Consulting Unavailable White, Cuca Admitting Unavailable Ashelfah, Ghasem Attending Unavailable Bardales, Franco Primary Care Unavailable Slaby, Yrn Consulting Unavailable Cleveland, Adonay Consulting Unavailable Christie, Moisés Consulting Unavailable Ashelfah, Ghasem Consulting Unavailable White, Cuca Admitting Unavailable Ashelfah, Ghasem Attending Unavailable Bardales, Franco Primary Care Unavailable Slaby, Yrn Consulting Unavailable Darrick, Adonay Consulting Unavailable Christie, Moisés Consulting Unavailable Ashelfah, Ghasem Consulting Unavailable White, Cuca Admitting Unavailable Slaby, Yrn Attending Unavailable Bardales, Franco Primary Care Unavailable Slaby, Yrn Consulting Unavailable Darrick, Adonay Consulting Unavailable Christie, Moisés Consulting Unavailable Ashelfah, Ghasem Consulting Unavailable White, Cuca Admitting Unavailable Ashelfah, Ghasem Attending Unavailable Bardales, Franco Primary Care Unavailable Slaby, Yrn Consulting Unavailable Cleveland, Adonay Consulting Unavailable Christie, Moisés Consulting Unavailable Ashelfah, Ghasem Consulting Unavailable White, Cuca Admitting Unavailable Ashelfah, Ghasem Attending Unavailable Bardales, Franco Primary Care Unavailable Slaby, Yrn Consulting Unavailable Cleveland, Adonay Consulting Unavailable Christie, Moisés Consulting Unavailable Ashelfah, Ghasem Consulting Unavailable White, Cuca Admitting Unavailable White, Cuca Attending Unavailable Bardales, Franco Primary Care Unavailable Slaby, Yrn Consulting Unavailable Cleveland, Adonay Consulting Unavailable Christie, Moisés Consulting Unavailable White, Cuca Consulting Unavailable White, Cuca Admitting Unavailable White, Cuca Attending Unavailable Bardales, Franco Primary Care Unavailable Slaby, Yrn Consulting Unavailable Cleveland, Adonay Consulting Unavailable Christie, Moisés Consulting Unavailable White, Cuca Consulting Unavailable White, Cuca Admitting Unavailable White, Cuca Attending Unavailable Bardales, Franco Primary Care Unavailable Slaby, Yrn Consulting Unavailable Darrick, Adonay Consulting Unavailable Christie, Moisés Consulting Unavailable White, Cuca Consulting Unavailable Neville, Joaquin Attending Unavailable White, Cuca Referring Unavailable Bardales, [...] Unavailable Slaby, Yrn Referring Unavailable Slaby, Yrn Referring Unavailable Bardales, Franco Primary Care Unavailable Slaby, Yrn Admitting Unavailable Tereletsky, Jared Consulting Unavailable Rohan, Jerry Attending Unavailable Arnav Webber D.O. Consulting Unavailable ELRIFAI, MOHAMED Admitting Unavailable ELRIFAI, MOHAMED Attending Unavailable YVONNE CONTI Consulting Unavailable BARDALES, [facility] Primary Care Unavailable ELRIFAI, MOHAMED Admitting Unavailable ELBOGDANFAI, MOHAMED Attending Unavailable Janeen CONTI Consulting Unavailable PROBLEMS PROBLEMS DATE TYPE CONDITION / CODE ATTENDING STATUS SOURCE 10/07/2018 Unknown G89.18 - Other acute Yrn Hendricks Active [facility] / G89.18(ICD-10) Hospital Repository 10/07/2018 Unknown M79.3 - Slaby, Yrn Active [facility] Panniculitis, Community unspecified / Hospital M79.3(ICD-10) Repository 10/13/2018 Unknown R00.0 - Tachycardia, Neville, Joaquin Active [facility] unspecified / Community R00.0(ICD-10) Hospital Repository 10/13/2018 Unknown I10 - Essential Neville, Gabe Active [facility] (primary) Community hypertension / Hospital I10(ICD-10) Repository 05/21/2018 Unknown M79.89 - Other White, Cuca Active [facility] specified soft Community tissue disorders / Hospital M79.89(ICD-10) Repository 06/11/2018 Unknown Z01.810 - Encounter Gabe Lozada Active [facility] for preprocedural [facility] examination / Repository Z01.810(ICD-10) 03/08/2018 Active Cellulitis of ELRIFAI, Active [facility] abdominal wall / [facility] Other L03.311(ICD-10) [facility] Repository 03/08/2018 Active Unspecified open ELRIFAI, Active [facility] wall, unspecified [facility] quadrant without Repository penetration into peritoneal cavity, initial encounter / S31.109A(ICD-10) 03/08/2018 Active Local infection of ELRIFAI, Active [facility] Other subcutaneous tissue, [facility] unspecified / Repository L08.9(ICD-10) 03/08/2018 Active Umbilical hernia ELRIFAI, Active [facility] with obstruction, [facility] Other without gangrene / [facility] K42.0(ICD-10) Repository 03/08/2018 Admitting Unknown / ELRIFAI, Active [facility] diagnosis UNK(Unknown) [facility] Repository 04/01/2018 Unknown R10.9 - Unspecified Ahmed, Rami Active [facility] abdominal pain / Community R10.9(ICD-10) Hospital Repository 02/15/2018 Active Encounter for NA Active [facility] screening [facility] for malignant [facility] neoplasm of breast / Repository Z12.31(ICD-10) 05/05/2017 Active Localized adiposity NA Active [facility] / E65(ICD-10) [facility] Repository 12/16/2017 Active Hypothyroidism, NA Active [facility] unspecified / [facility] E03.9(ICD-10) [facility] Repository PROCEDURES PROCEDURES No Procedure Records FoundRESULTS RESULTS OPERATIVE REPORT Observed: 10/02/2018 Status: F Source: [facility] 6:29 PM [facility] REPOSITORY [facility] Medical Records Department [address] [place] [address] Operative Report 09/21/18 1643 MR#: [id number] Acct: [id number] Name: ROSALIE HORNE Rep #: [id number] : 1975 43 From: Yrn Hendricks MD PCP: Franco Jacques, DO Status: DIS IN Y Location: MS2 [id number] Report of Operation Date of Procedure: 09/21/18 Pre-Operative Diagnosis: 1. 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 2. Nonhealing ulcer central aspect lower anterior abdominal wall. 3. Borderline diabetes. 4. Abdominal wall skin crease intertrigo. 5. Morbid obesity. 6. Incisional hernia. 7. History of methicillin resistant Staphylococcus hominis hominis. Post-Operative Diagnosis: Same. Surgery/Procedure Performed:: Surgical preparation right lateral abdominal wall massive panniculus with excisional debridement skin and subcutaneous tissue for necrotizing soft tissue infection and panniculectomy (858 cm2). Description of Surgical Findings:: The patient is a 43 year old F with a history of morbid obesity and borderline diabetes who presents with worsening pain and swelling in her massive abdominal panniculus mostly on the right side. The left side is much softer. This has a persistent nonhealing ulcer in the central aspect of the lower abdominal panniculus. She was hospitalized in May, and had surgery where she underwent surgical preparation lower anterior abdominal wall massive panniculus with excisional debridement nonhealing ulcer and skin and subcutaneous tissue for necrotizing soft tissue infection and panniculectomy (777 cm2). Operative cultures showed Methicillin resistant Staphylococcus hominis hominis and Anaerobes. She was treated with Vancomycin and Cleocin. She has a persistent ulceration centrally in the lower abdominal panniculus and is doing daily Silver dressing changes. She denies any fever. With the increasing pain and swelling in the right side of her massive panniculus, she presents today to begin surgical debridement which will be done in stages. Patient was informed of the risks and complications of the procedure including alternatives to surgery. These were discussed with the patient personally. Patient voices understanding and wishes to proceed. Size of defect right abdominal wall - 22 x 39 x 5 cm. I used Veronica absorbable hemostat, (I used 2 vials). Reference Number - [id number]. Lot Number - [id number]. Expiration - June 01, 2023. travel med surg rn: Mercedes Fuchs. travel med surg rn: Dimitris Stack. Type of Anesthesia:: General Specimen's removed: Right lateral abdominal wall massive panniculus with panniculitis to Pathology and Microbiology. Drains: None. Estimated Blood Loss (mL): 650 ml. Description of Procedure: Patient was taken to OR in supine position and was placed under general anesthesia. The right abdominal wall was prepped and draped in the usual fashion. SCD's were placed for DVT prophylaxis. Perioperative antibiotics were given intravenously. A vitale catheter was placed. Incision was made on the right lateral abdominal wall where the greatest amount of induration and dependent edema was located. Dissection was slow as there were multiple areas of venous bleeding present that needed ligation with hemostats and cauterization. Cauterization was difficult secondary to the amount of edema present that had to be suctioned out in order to get hemostasis. No gross pus was seen, but there was evidence of necrotizing soft tissue infection in the deep subcutaneous and sub-Albino's fascial area. These areas of necrotizing soft tissue infection were excised and debrided. Hemostasis obtained with electrocautery. There was about 650 ml of blood loss. The patient developed issues with hypotension during the surgery and aggressive fluid resuscitation was done. The surgery was then terminated because of the amount of blood loss and the need to stabilize the patient. Due to the amount of blood loss, I anticipate the need for PRBC postop and will order a Type and Cross. I had discussed with the patient preoperatively, that multiple surgical procedures would be necessary in order to remove her massive pannus. I generally stop the surgery when I get into the 500 ml blood loss range. Obviously more abdominal pannus tissue needs to be excised, but will need to wait until the next surgery (I generally wait 3-6 months depending on the general medical status of the patient at the time). Tissue that was removed today will be sent to Pathology for analysis and to Microbiology for culture. She had a resistant Staph back in May and will be treated perioperatively with Vancomycin. A positive culture may necessitate antibiotic modification. The size of the defect after excision and debridement was 22 x 39 x 5 cm. The wound was irrigated with saline. I sprayed Veronica absorbable hemostat into the wound to minimize seroma formation. I used 2 vials. The wound was then dressed with Mepitel nonadherent dressing followed by Kerlix gauze and Betadine followed by dry Kerlix gauze and ABD pads compression dressing. This was followed by an abdominal binder. At the time of the dressing, the wound was stable with no evidence of active bleeding. Will check a Hgb in PACU as I anticipate it will be low and PRBC will need to be given. I will also order a Type and Cross as well. Patient tolerated the procedure with some issues with hypotension and after aggressive fluid resuscitation was sent to PACU in stable condition and anticipate will need continued fluid resuscitation which will include PRBC. Depending on how well she responds to fluid resuscitation will determine if she is sent to the floor for continued postop care or whether she needs to go to the ICU for closer monitoring overnight. Grafts/Implants Used: None. - Complications Patient had issues during surgery with hypotension. Aggressive fluid resuscitation was done. Anticipate the need for PRBC postop and ordered a Type and Cross. - Admit VTE Documentation VTE Present on Admission: No VTE Mechan Device Prophylaxis: SCD's VTE Pharm Prophylaxis ordered?: Yes Code Visit Surgery Charges CPT - 19573 ICD-10 - E65, M79.3, L98.492, M79.89, L30.4, E66.9, Z86.19, R73.03, K43.2 10/02/18 1829 <Electronically signed by Yrn Hendricks MD> Date Yrn Hendricks MD CC: Arnav Webber D.O.; Yrn Hendricks MD; Franco Jacques DO; Jared Ambrose DO Signed DISCHARGE SUMMARY Observed: 09/29/2018 Status: F Source: [place] 12:39 AM [facility] REPOSITORY [facility] Medical Records Department [address] [place] [id number] Discharge Summary 09/26/18 1330 MR#: [id number] Acct: [id number] Name: ROSALIE HORNE Rep #: [id number] : 1975 43 From: Yrn Hendricks MD PCP: Franco Jacques DO Status: DIS IN Y Location: MS2 AZ219-4 Discharge Date and Diagnosis Date of Admission: 09/21/18 Date of Discharge: 09/26/18 - Primary Discharge Diagnosis 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 Open surgical wound right lateral abdominal wall. Necrotizing soft tissue infection. Anemia of chronic disease, acute on chronic. Hypokalemia. - Secondary Discharge Diagnosis abdominal wall skin crease intertrigo Nonhealing ulcer central aspect lower anterior abdominal wall Incisional hernia Anxiety and depression Allergic rhinitis MARCE (obstructive sleep apnea) Obesity Asthma Prediabetes Hypertension Hypothyroid History of methicillin resistant Staphylococcus hominis hominis. Hospital Course and Treatment Imaging Results: Diagnostic Data Chest X-Ray 09/21/18 14:03 IMPRESSION: The tip of the left central line is at the junction of the superior vena cava and left brachiocephalic vein. Electronically Signed: Michel Shannon MD at 14:27 EST Tel [phone], Service support , Consultations 09/21/18 17:25 Consult: Onc/Wound/senior caregiver Routine Comment: Hospitalist Group - Dr. Sanchez, Dr. Ambrose, and Dr. Madrigal. Enterprise Engineer - Dr. Webber. General Surgery - Dr. Lobo. Operations: - - 09/21/18 - Surgical preparation right lateral abdominal wall massive panniculus with excisional debridement skin and subcutaneous tissue for necrotizing soft tissue infection and panniculectomy (858 cm2). Procedures: Aterial line placement, Blood transfusion, Central line placement, Wound vac placement Summary of Care Provided: The patient is a 43 year old F with a history of morbid obesity and borderline diabetes who presents with worsening pain and swelling in her massive abdominal panniculus mostly on the right side. The left side is much softer. This has a persistent nonhealing ulcer in the central aspect of the lower abdominal panniculus. She was hospitalized in May, and had surgery where she underwent surgical preparation lower anterior abdominal wall massive panniculus with excisional debridement nonhealing ulcer and skin and subcutaneous tissue for necrotizing soft tissue infection and panniculectomy (777 cm2). Operative cultures showed Methicillin resistant Staphylococcus hominis hominis and Anaerobes. She was treated with Vancomycin and Cleocin. She has a persistent ulceration centrally in the lower abdominal panniculus and is doing daily Silver dressing changes. She denies any fever. With the increasing pain and swelling in the right side of her massive panniculus, she presents today to begin surgical debridement which will be done in stages. On 09/21/18, the patient went to surgery and underwent surgical preparation right lateral abdominal wall massive panniculus with excisional debridement skin and subcutaneous tissue for necrotizing soft tissue infection and panniculectomy (858 cm2). During the surgery, there were issues with hypotension and aggressive fluid resuscitation was done. Postop she needed to go to the ICU for close monitoring and for continued aggressive resuscitation. She had an arterial line placed, a central line placed, and PRBC given. Her Hgb drifted down into the 6 range and after PRBC her Hgb at discharge was 8.7. She was also started on Iron supplementation. Hospitalist Group was consulted for medical management. Dr. Webber, Enterprise Engineer, was consulted for management in the ICU. She stabilized and was discharged from the ICU the next day. Also postop her Potassium was low (less than 3) that needed Potassium supplementation. At discharge it was 3.7. Her Prealbumin was 12.0. Encouraged nutritional supplementation with protein to help the healing process. On the first postop day, the VAC was applied without difficulty. She was treated perioperatively with Vancomycin because of a previous culture that showed Methicillin resistant Staphylococcus hominis hominis. The operative culture showed Staphylococcus simulans, Corynebacterium striatum, and Corynebacterium amycolatum. The Vancomycin was stopped and she was started on Levaquin. On the 5th postop day, she was discharged to the [facility]. Her vitale catheter was removed and she was able to void without difficulty. Will continue the VAC to be changed three times per week at 150 mmHg continuous suction. Will continue Iron supplementation. Will recheck a Hgb in 2 weeks. Will continue Levaquin for 30 days. Wrote scripts for Percocet for pain (50 tabs) and for Valium for spasm (20 tabs). Due to her inactivity, will continue Lovenox until she becomes more ambulatory. Followup at Wound Center in 3-4 weeks. Subjective: Patient resting comfortably. - Physical Exam General: Alert, Oriented x3 HEENT: PERRLA, EOMI Oral: Moist Mucosa Neck: Supple Abdomen: Soft, Non-Distended Skin: Ulcer/ Wound - wound is stable. No active bleeding noted. VAC in place. Small amount drainage in the canister. Neurological: Cranial nerves II-XII grossly intact Psych/Mental Status: Normal Affect, Appropriate Vital Signs Temp Pulse Resp BP Pulse Ox 98.8 F 102 H 18 102/60 96 09/26/18 08:44 09/26/18 08:44 09/26/18 08:44 09/26/18 08:44 09/26/18 08:44 Oxygen Flow Rate (L/min) 2 Oxygen Delivery Method Room Air Weight: 415 lb 0.006 oz Body Mass Index (BMI) 78.4 Intake and Output for Last 24 Hours Intake Total 6041 / 6041 2285 / 2285 550 / 550 Output Total 7850 / 7850 2750 / 2750 2500 / 2500 Balance -1809 / -1809 -465 / -465 -1950 / -1950 Microbiology Past 72 Hours 09/21/18 11:34 Gram Stain - Final Tissue - Other Wound Culture - Final Laboratory Tests Past 24 Hrs WBC 11.7 H Discharge Diet: No Restrictions, - - encourage nutritional supplementation with protein to help the healing process. Discharge Activity: May Shower - on the days the vac is changed. May shower in (days): 2 - on days the vac is changed. Weight Bearing Status: Weight bearing as tolerated Call your doctor if your incision/area has: Continuous Slow Oozing, Sudden Increased Bleeding, Increased Pain/ Swelling, Increased Redness, Foul Smelling Discharge, Swelling at the incision site Call your doctor if you observe: Coldness, Increased Pain, Shortness of breath, Chest pain, Calf discomfort, Uncontrolled pain Suture Line Care: - - vac changes three times per week at 150 mmHg continuous suction. Change Dressing in (Days):: 2 - vac changes three times per week. Cleanse incision/area with: Soap AND Water - may cleanse the wound with soap and water on the days the vac is changed., - - may shower on the days the vac is changed. Catheter: Vitale to large bag Home Medications: Medications to take at Discharge Loratadine [Claritin] 10 mg PO DAILY 03/08/18 Montelukast Sodium [Singulair] 10 mg PO DAILY 03/08/18 Omeprazole [Prilosec] 20 mg PO DAILY 03/08/18 Sertraline HCl [Zoloft] 100 mg PO DAILY 03/08/18 Levothyroxine Sodium [Synthroid] 300 mcg PO DAILY 05/06/18 Naproxen Sodium [Aleve] 440 mg PO Q12H PRN PRN 05/06/18 Acetaminophen [Tylenol Tablet] 650 mg PO Q6H PRN PRN tablet 05/19/18 Albuterol Aerosols [Ventolin Aerosols] 2.5 mg INHALATION Q2H PRN PRN #1 box 05/19/18 Nystatin Powder [Mycostatin Powder] 1 applic TOPICAL TID #1 bottle 05/19/18 Hydrochlorothiazide [Hctz] 25 mg PO DAILY 08/02/18 Ondansetron [Zofran Odt] 4 mg PO Q12H PRN PRN 09/17/18 Ascorbic Acid [Vitamin C] 500 mg PO BIDCM tablet 09/26/18 Diazepam [Valium] 5 mg PO TID #20 tab 09/26/18 Docusate Sodium [Colace] 100 mg PO BID capsule 09/26/18 Enoxaparin [Lovenox] 40 mg SC DAILY@0600 syringe 09/26/18 Ensure Clear 120 ml PO TIDCM liquid 09/26/18 Ferrous Sulfate 325 mg PO BIDCM tablet 09/26/18 Metformin HCl [Glucophage] 500 mg PO BIDCM tablet 09/26/18 Mupirocin [Bactroban] 1 applic NASAL BID tube 09/26/18 Nutritional Supplement [Royer - ORANGE FLAVOR] 1 packet PO BIDCM packet 09/26/18 Oxycodone HCl/Acetaminophen [Percocet 5/325] 1 - 2 tab PO 4X/DAY PRN PRN 7 Days #50 tab 09/26/18 Pantoprazole Sodium [Protonix] 20 mg PO BID tablet 09/26/18 Potassium Chloride [K-Dur] 20 meq PO BIDCM tablet 09/26/18 buPROPion XL [Wellbutrin Xl] 150 mg PO DAILY tablet.xl 09/26/18 levoFLOXacin tablet [Levaquin tablet] 500 mg PO DAILY@0600 #30 tab 09/26/18 proMETHazine tablet [Phenergan tablet] 25 mg PO Q4H PRN PRN tablet 09/26/18 Following Prescrptions Were Given to Patient: levoFLOXacin tablet [Levaquin tablet] 500 mg PO DAILY@0600 #30 tab Oxycodone HCl/Acetaminophen [Percocet 5/325] 1 - 2 tab PO 4X/DAY PRN PRN 7 Days #50 tab PRN Reason: Pain Diazepam [Valium] 5 mg PO TID #20 tab Other Amb Orders: ,Urine Time Frame: 09/21/18, Location: Laboratory Primary Care Physician: Franco Bardales DO [Primary Care Provider] - Please Follow Up With: Yrn Hendricks MD When: 4 weeks at wound [place]. call [phone] for appt. Please Follow Up With: Belinda Holbrook NP-C When: 3 weeks at wound center. call [phone] for appt. Additional Instructions: Patient should have a CBC drawn in two weeks. Fax results to [facility] at [phone]. Disposition: Jail facility Minutes spent on discharge:: 35 Patient Condition:: Fair Medical Necessity - Tobacco Use Smoking Status: Never smoker Meaningful Use Info Meaningful Use Diagnoses (Choose all that apply): None applicable Code Visit Inpatient E AND M: 80803 Disch Hosp - ICD-10 - E65, M79.3, S31.109A, M79.89, E66.9, L30.4, D62, K43.2, R73.03 09/29/18 0039 <Electronically signed by Yrn Hendricks MD> Date Yrn Hendricks MD Cosigner Signature (if applicable): Date CC: Gato Lobo MD; Mary Sanchez; Arnav Webber D.O.; Jerry Madrigal DO; Yrn Hendricks MD; Franco Jacques DO; Jared Ambrose DO; Wound Care Center Signed [facility]SFER TO [facility] Observed: 09/26/2018 Status: F Source: [facility] 1:44 PM [facility] REPOSITORY [facility] Medical Records Department [address] [place] [address] [facility] Care MR#: [id number] Acct: [id number] Name: ROSALIE HORNE Rep #: [id number] : 1975 43 From: Yrn Hendricks MD PCP: Franco Jacques DO Status: ADM IN ROSALIE HORNE (Patient) (Health Ins. Claim No.) (Day of Discharge to Facility) Certification of patient admission REQUIRED AT TIME OF ADMISSION. I CERTIFY THAT POST-HOSPITAL ECF SERVICES ARE REQUIRED TO BE GIVEN ON AN IN-PATIENT BASIS BECAUSE OF THE ABOVE NAMED PATIENT'S NEED FOR PENITENTIARY CARE ON A CONTINUING BASIS FOR THE CONDITION(S) FOR WHICH HE/SHE WAS RECEIVING IN-PATIENT HOSPITAL SERVICES PRIOR TO HIS/HER TRANSFER TO THE F. 09/26/18 1329 <Electronically signed by Yrn Hendricks MD> Date Yrn Hendricks MD ADDENDUM by Yrn Hendricks MD on 09/26/18 at 1344 Code Visit Vitale catheter was removed prior to discharge. 09/26/18 1344 <Electronically signed by Yrn Hendricks MD> Date Yrn Hendricks MD cc: Arnav Webber D.O.; Franco Jacques DO; Jared Ambrose DO; Wound Care Center * Signed ADDENDUM by Yrn Hendricks MD on 09/26/18 at 1340 Code Visit Patient will continue Levaquin 500mg daily for 30 days. Other procedures done during her hospital stay - Arterial Line Placement, Blood Transfusion, Central Line Placement. 09/26/18 1340 <Electronically signed by Yrn Hendricks MD> Date Yrn Hendricks MD cc: Arnav Webber D.O.; Franco Jacques DO; Jaerd Ambrose DO; Wound Care Center * Signed - Diet 09/22/18 16:21 Diet: Calorie Controlled Food consistency:: Regular Liquid Consistency:: Regular/Thin Type of Dietary Supplement:: Glucerna Shake Is pt able to select menu?: Yes How many daily calories?: 2000 calorie Encourage nutritional supplementation with protein to help the healing process. - Routine Orders/Code Status Vitale Catheter Size: 16 - change monthly and prn Change Vitale Catheter: monthly and prn Routine Lab Work: CBC - in two weeks. fax results to wound center at [phone]. - Wound(s) ABD Wound Type: Open Surgical Wound Dressing Change: AntiMicrobial (Aquacel AG, etc) right abdomen Wound Type: Open Surgical Wound Dressing Change: VAC at 150 mmHg continuous suction - Suggestions for Active Care Change Position every (hours): 2 Hours to sit in a chair: 6 Times a day to sit in chair: 3 - Therapies Weight Bearing: Weight bearing as tolerated Physical Therapy: Eval and Treat - Problem/Diagnosis (1) Open wound of lateral abdominal wall Status: Acute Comment: open surgical wound right lateral abdominal wall Current Visit: Yes (2) Necrotizing soft tissue infection Status: Chronic Current Visit: Yes (3) Abdominal panniculus, symptomatic Status: Chronic Current Visit: No (4) Panniculitis Status: Chronic Current Visit: No (5) Erythema intertrigo Status: Chronic Comment: abdominal wall skin crease intertrigo Current Visit: No (6) Skin ulcer of abdominal wall with fat layer exposed Status: Chronic Current Visit: No (7) Incisional hernia Status: Chronic Current Visit: No (8) Acute blood loss anemia Status: Acute Current Visit: Yes - Allergies/Procedures Done in Hospital Allergies/Adverse Reactions: [...] Penicillins Adverse Reaction (Verified 09/17/18 14:22) Nausea Procedures: Wound Vac placement, - - 09/21/18 - Surgical preparation right lateral abdominal wall massive panniculus with excisional debridement skin and subcutaneous tissue for necrotizing soft tissue infection and panniculectomy (858 cm2). - Type of Care/Length of Stay Estimated LOS: More Than 30 Days Type of Care Needed: Skilled Rehab Potential: Fair Prognosis: Fair - Additional Orders/Day of Discharge H AND P will serve as current which was dated: 09/20/18 Day of Discharge: 09/26/18 - Dietary and Speech Recommendations Dietitian Recommendations/Changes: Rec diet change to 2000 calorie controlled. Encourage pt to try Royer BID- states it makes her nauseated but consumption would be ideal for wound healing. Will continue ONS as ordered. - Follow Up Care Primary Care Physician: Franco Bardales DO [Primary Care Provider] - Please Follow Up With: Yrn Hendricks MD When: 4 weeks at wound center. call [phone] for appt. Please Follow Up With: Belinda Holbrook [employer] SALES COUNTER MANAGER-C When: 3 weeks at wound center. call [phone] for appt. 09/26/18 1329 <Electronically signed by Yrn Hendricks MD> Date Yrn Hendricks MD CC: Arnav Webber D.O.; Franco Jacques DO; Jared Ambrose DO; Wound Care Center Signed CBC W/DIFF, AUTOMATED Collected: 09/26/2018 Status: F Source: [place] 7:19 AM [facility] REPOSITORY TYPE CODE TESTS RESULT OUT OF RANGE REFERENCE UNITS LAB L100.1000 4.4-11.0 K/mm3 High WBC 11.7 LAB L100.1200 4.2-5.4 M/mm3 Low RBC 3.31 LAB L100.1300 12.0-15.0 g/dl Low HGB 8.7 LAB L100.1400 37-47 % Low HCT 28.1 LAB L100.1500 81-99 fL Normal MCV 84.9 LAB L100.1600 27.0-32.0 pg Low MCH 26.3 LAB L100.1700 32-36 g/gl Low MCHC 31.0 LAB L100.1810 11.6-14.6 % High RDW CV 18.9 LAB L100.1820 35.1-43.9 fl High RDW SD 57.2 LAB L100.1900 150-450 K/mm3 Normal PLT 263 LAB L100.2000 6.2-12.0 fl Normal MPV 10.4 LAB L100.2100 47-70 % Normal NEUT% 65.1 LAB L100.2200 19-41 % Normal LY% 19.0 LAB L100.2300 0-10 % Normal MONO% 9.8 LAB L100.2400 0-5 % Normal EO% 5.0 LAB L100.2500 0-1 % Normal BASO% 0.3 LAB L100.2550 0.0-0.9 % Normal IM GRAN % 0.800 Result Comment: IG% - Immature Granulocytes (promyelocytes, myelocytes and metamyelocytes) > 1% indicates that a LEFT SHIFT is Present. LAB L100.2620 2.0-7.7 X10 3/uL Normal Absolute Neut 7.6 LAB L100.2720 0.83-4.51 X10 3/ul Normal Absolute Lymph 2.22 Performed By: #### L100.0100 #### [facility] [address] [place], [address] BASIC METABOLIC Collected: 09/26/2018 Status: F Source: [place] PROFILE ([facility]) 7:19 AM [facility] REPOSITORY TYPE CODE TESTS RESULT OUT OF RANGE REFERENCE UNITS LAB L501.0100 74-106 mg/dL Normal GLU 81 Result Comment: Please note revised GLUCOSE reference range effective 2017. LAB L501.1000 7-18 mg/dL Normal BUN 10 LAB L501.1100 0.55-1.02 mg/dL Low CREAT,SERUM 0.53 Result Comment: The validity of the calculated GFR AND GFRAA in patients over 70 years has not been determined. Clinical correlation is essential. LAB L501.1110 >60 mL/min Normal EST GFR 134 Result Comment: Non- GFR Calc LAB L501.1115 >60 mL/min Normal EST GFR - AA 162 Result Comment: GFR Calc LAB L501.1255 ml/min Normal Estimated CRCL 103.28 LAB L501.1300 10-20 RATIO BUN/CRE Normal 18.9 LAB L501.2200 8.5-10 mg/dL Low .1 CA 8.2 LAB L501.5300 136-14 mmol/L 5 NA Normal 140 LAB L501.5600 3.5-5. mmol/L 1 K Normal 3.7 LAB L501.5900 98-107 mmol/L CL Normal 101 LAB L501.6100 21.0-3 mmol/L 2.0 CO2 Normal 32.0 LAB L501.6200 5-15 GAP Normal 7 Performed By: #### L500.2500 #### [facility] [address] [place], [place], [address] TYPE AND SCREEN Collected: 09/25/2018 Status: F Source: [place] 9:25 AM [facility] REPOSITORY Order Comment: CMV NEG? N Number of units to transfuse: 1 Reason for Ordering Blood: Acute Are the blood/blood products to be transfused? Y Is the patient having/had surgery? Y CMV NEG?* N Give When? When Ready Irradiated? N Leukodepleted? Y Reason for Type AND Screen/Red Cells: ANEMIA Other - use comments: OTHER Type of Surgery: OTHER TYPE CODE TESTS RESULT OUT OF RANGE REFERENCE UNITS LAB B10.0800 A Normal BLOOD TYPE GEL POSITIVE LAB B100.4000 Normal Antibody NEGATIVE Screen Performed By: #### B101.7450 #### [facility] [address] [facility] [address] [place], [place], [address] RC Collected: 09/25/2018 Status: F Source: [place] 9:25 AM [facility] REPOSITORY TYPE CODE TESTS RESULT OUT OF REFERENCE UNITS RANGE LAB U100.0000 [id number] TRANSFUSED PRODUCT: T AND S with Crossmatch, Red Cells COUNT: 2 Performed By: #### U100.0000 #### Non-[facility] - refer to report for specific site CBC-COMPLETE BLOOD CNT Collected: 09/25/2018 Status: F Source: [place] NO DIFF 6:36 AM [facility] REPOSITORY TYPE CODE TESTS RESULT OUT OF RANGE REFERENCE UNITS LAB L100.1000 4.4-11.0 K/mm3 High WBC 13.3 LAB L100.1200 4.2-5.4 M/mm3 Low RBC 2.72 LAB L100.1300 12.0-15.0 g/dl Low HGB 6.9 LAB L100.1400 37-47 % Low HCT 22.8 LAB L100.1500 81-99 fL Normal MCV 83.8 LAB L100.1600 27.0-32.0 pg Low MCH 25.4 LAB L100.1700 32-36 g/gl Low MCHC 30.3 LAB L100.1810 11.6-14.6 % High RDW CV 20.5 LAB L100.1820 35.1-43.9 fl High RDW SD 59.4 LAB L100.1900 150-450 K/mm3 Normal PLT 227 LAB L100.2000 6.2-12.0 fl Normal MPV 10.0 Performed By: #### L100.0500, L100.4500 #### [facility] [address] [place], [place], [id number] DIFFERENTIAL COMMENT Collected: 09/25/2018 Status: F Source: [place] 6:36 AM [facility] REPOSITORY TYPE CODE TESTS RESULT OUT OF RANGE REFERENCE UNITS LAB L100.4500 Normal SMEAR COMMENT Result Comment: ANISOCYTOSIS 2+ HYPOCHROMIA 1+ POLYCHROMASIA 1+ Performed By: #### L100.0500, L100.4500 #### [facility] [address] [place], [place], [id number] BASIC METABOLIC Collected: 09/25/2018 Status: F Source: [place] PROFILE ([facility]) 6:36 AM [facility] REPOSITORY TYPE CODE TESTS RESULT OUT OF RANGE REFERENCE UNITS LAB L501.0100 74-106 mg/dL Normal GLU 85 Result Comment: Please note revised GLUCOSE reference range effective 2017. LAB L501.1000 7-18 mg/dL Normal BUN 9 LAB L501.1100 0.55-1.02 mg/dL Normal CREAT,SERUM 0.60 Result Comment: The validity of the calculated GFR AND GFRAA in patients over 70 years has not been determined. Clinical correlation is essential. LAB L501.1110 >60 mL/min Normal EST GFR 117 Result Comment: Non- GFR Calc LAB L501.1115 >60 mL/min Normal EST GFR - AA 142 Result Comment: GFR Calc LAB L501.1255 ml/min Normal Estimated CRCL 91.23 LAB L501.1300 10-20 RATIO Normal BUN/CRE 15.1 LAB L501.2200 8.5-10 mg/dL Low .1 CA 7.9 LAB L501.5300 136-14 mmol/L Normal 5 NA 139 LAB L501.5600 3.5-5. mmol/L Normal 1 K 3.7 LAB L501.5900 98-107 mmol/L Normal CL 100 LAB L501.6100 21.0-3 mmol/L Normal 2.0 CO2 32.0 LAB L501.6200 5-15 Normal GAP 7 Performed By: #### L500.2500 #### [facility] [address] [place], [address] HH, HEMOGLOBIN AND Collected: 09/24/2018 Status: F Source: [place] HEMATOCRIT 8:40 PM [facility] REPOSITORY TYPE CODE TESTS RESULT OUT OF RANGE REFERENCE UNITS LAB L100.1300 12.0-15.0 g/dl Low HGB 7.2 LAB L100.1400 37-47 % Low HCT 23.4 Performed By: #### L100.0600 #### [facility] [address] [facility] [place], [address] POTASSIUM Collected: 09/24/2018 Status: F Source: [place] 8:40 PM [facility] REPOSITORY TYPE CODE TESTS RESULT OUT OF RANGE REFERENCE UNITS LAB L501.5600 3.5-5.1 mmol/L Low K 3.4 Performed By: #### L501.5600 #### [facility] [address] [place], [address] 12 LEAD ELECTROCARDIOGRAM Observed: 09/24/2018 Status: F Source: MELANIE 2:19 PM [facility] REPOSITORY [facility] Cardiovascular Services [address] [place] [address] 12 Lead EKG 09/22/18 0935 MR#: [id number] Acct: [id number] Name: ROSALIE HORNE Rep #: [id number] : 1975 43 From: Gabe Lozada MD Attending Dr: Yrn Hendricks MD Status: ADM IN Ordering Dr: Rojas Sanchez DO Date: 09/22/18 Location: MS2 Sex: F C Admitted: 09/21/18 Test Reason : DYSRHYTHMIA Blood Pressure : / mmHG Vent. Rate : 122 BPM Atrial Rate : 122 BPM P-R Int : 140 ms QRS Dur : 080 ms QT Int : 294 ms P-R-T Axes : 055 003 051 degrees QTc Int : 418 ms Sinus tachycardia Otherwise normal ECG When compared with ECG of 21-SEP-2018 12:39, MANUAL COMPARISON REQUIRED, DATA IS UNCONFIRMED Confirmed by NEVILLE GILMORE, GABE ([id number]), editorial specialist DON STANFORD ([id number]) on 09/24/2018 2:18:55 PM Referred By: Yrn Hendricks Confirmed By:GABE LOZADA MD 09/24/18 1419 Date Gabe Lozada MD CC: Mary Sanchez; Yrn Hendricks MD; Franco Jacques DO Signed POTASSIUM Collected: 09/24/2018 Status: F Source: MELANIE 12:34 PM [facility] REPOSITORY TYPE CODE TESTS RESULT OUT OF RANGE REFERENCE UNITS LAB L501.5600 3.5-5.1 mmol/L Low K 3.4 Performed By: #### L501.5600 #### [facility] [address] [place], [address] BASIC METABOLIC Collected: 09/24/2018 Status: F Source: [place] PROFILE (BMP) 5:16 AM [facility] REPOSITORY TYPE CODE TESTS RESULT OUT OF RANGE REFERENCE UNITS LAB L501.0100 74-106 mg/dL Normal GLU 80 Result Comment: Please note revised GLUCOSE reference range effective 2017. LAB L501.1000 7-18 mg/dL Normal BUN 11 LAB L501.1100 0.55-1.02 mg/dL Low CREAT,SERUM 0.52 Result Comment: The validity of the calculated GFR AND GFRAA in patients over 70 years has not been determined. Clinical correlation is essential. LAB L501.1110 >60 mL/min Normal EST GFR 135 Result Comment: Non- GFR Calc LAB L501.1115 >60 mL/min Normal EST GFR - AA 164 Result Comment: GFR Calc LAB L501.1255 ml/min Normal Estimated CRCL 105.26 LAB L501.1300 10-20 RATIO High BUN/CRE 21.0 LAB L501.2200 8.5-10 mg/dL Low .1 CA 7.7 LAB L501.5300 136-14 mmol/L 5 NA Normal 140 LAB L501.5600 3.5-5. mmol/L Low 1 K 2.8 LAB L501.5900 98-107 mmol/L CL Normal 103 LAB L501.6100 21.0-3 mmol/L 2.0 CO2 Normal 27.0 LAB L501.6200 5-15 GAP Normal 10 Performed By: #### L500.2500 #### [facility] [address] [facility] [place], [place], [id number] CBC-COMPLETE BLOOD CNT Collected: 09/24/2018 Status: F Source: MELANIE NO DIFF 5:16 AM [facility] REPOSITORY TYPE CODE TESTS RESULT OUT OF RANGE REFERENCE UNITS LAB L100.1000 4.4-11.0 K/mm3 High WBC 12.8 LAB L100.1200 4.2-5.4 M/mm3 Low RBC 2.76 LAB L100.1300 12.0-15.0 g/dl Low HGB 6.9 LAB L100.1400 37-47 % Low HCT 23.0 LAB L100.1500 81-99 fL Normal MCV 83.3 LAB L100.1600 27.0-32.0 pg Low MCH 25.0 LAB L100.1700 32-36 g/gl Low MCHC 30.0 LAB L100.1810 11.6-14.6 % High RDW CV 19.7 LAB L100.1820 35.1-43.9 fl High RDW SD 56.6 LAB L100.1900 150-450 K/mm3 Normal PLT 206 LAB L100.2000 6.2-12.0 fl Normal MPV 10.2 Performed By: #### L100.0500 #### [facility] [address] [place], [place], [id number] VANCOMYCIN, TROUGH Collected: 09/23/2018 Status: F Source: MELANIE LEVEL 3:41 PM [facility] REPOSITORY Order Comment: Comments: PLEASE DRAW 30MIN PRIOR TO DOSE ON 09/23 @1600 Time Medication is to be Given? 1600 TYPE CODE TESTS RESULT OUT OF RANGE REFERENCE UNITS LAB L501.8820 5.0-15.0 ug/mL Normal VANCO, TROUGH 13.3 Result Comment: VANCOMYCIN STANDARED DRUG THERAPY TROUGH LEVEL: 5.0 - 15.0 mg/L VANCOMYCIN HIGH INTENSITY THERAPY TROUGH LEVEL: 15.0 - 20.0 mg/L High Intensity therapy recommended for serious life threatening infections include: - Meningitis -Endocarditis -Pneumonia (Ventilator/Healtcare Associated) -Sepsis PLEASE CONTACT PHARMACY SERVICES (#[id number]) FOR INTERPRETATION OF RESULTS. Performed By: #### L501.8820 #### [facility] [address] [place], [address] CBC-COMPLETE BLOOD CNT Collected: 09/23/2018 Status: F Source: [place]IE NO DIFF 7:10 AM [facility] REPOSITORY TYPE CODE TESTS RESULT OUT OF RANGE REFERENCE UNITS LAB L100.1000 4.4-11.0 K/mm3 High WBC 13.4 LAB L100.1200 4.2-5.4 M/mm3 Low RBC 2.90 LAB L100.1300 12.0-15.0 g/dl Low HGB 7.2 LAB L100.1400 37-47 % Low HCT 23.1 LAB L100.1500 81-99 fL Low MCV 79.7 LAB L100.1600 27.0-32.0 pg Low MCH 24.8 LAB L100.1700 32-36 g/gl Low MCHC 31.2 LAB L100.1810 11.6-14.6 % High RDW CV 19.6 LAB L100.1820 35.1-43.9 fl High RDW SD 57.2 LAB L100.1900 150-450 K/mm3 Normal PLT 200 LAB L100.2000 6.2-12.0 fl Normal MPV 9.7 Performed By: #### L100.0500 #### [facility] [address] [place], [address] BASIC METABOLIC Collected: 09/23/2018 Status: F Source: [place]IE PROFILE (BMP) 7:10 AM [facility] REPOSITORY TYPE CODE TESTS RESULT OUT OF RANGE REFERENCE UNITS LAB L501.0100 74-106 mg/dL Normal GLU 86 Result Comment: Please note revised GLUCOSE reference range effective 2017. LAB L501.1000 7-18 mg/dL Normal BUN 12 LAB L501.1100 0.55-1.02 mg/dL Low CREAT,SERUM 0.53 Result Comment: The validity of the calculated GFR AND GFRAA in patients over 70 years has not been determined. Clinical correlation is essential. LAB L501.1110 >60 mL/min Normal EST GFR 133 Result Comment: Non- GFR Calc LAB L501.1115 >60 mL/min Normal EST GFR - AA 160 Result Comment: GFR Calc LAB L501.1255 ml/min Normal Estimated CRCL 103.28 LAB L501.1300 10-20 RATIO High BUN/CRE 22.5 LAB L501.2200 8.5-10 mg/dL Low .1 CA 7.6 LAB L501.5300 136-14 mmol/L 5 NA Normal 139 LAB L501.5600 3.5-5. mmol/L Low 1 K 3.0 LAB L501.5900 98-107 mmol/L CL Normal 105 LAB L501.6100 21.0-3 mmol/L 2.0 CO2 Normal 25.0 LAB L501.6200 5-15 GAP Normal 9 Performed By: #### L500.2500, L501.2300, L501.5200 #### [facility] [address], [place], [id number] PHOSPHORUS Collected: 09/23/2018 Status: F Source: [place] 7:10 AM [facility] REPOSITORY TYPE CODE TESTS RESULT OUT OF RANGE REFERENCE UNITS LAB L501.2300 2.5-4.9 mg/dL Normal PHOS 2.9 Performed By: #### L500.2500, L501.2300, L501.5200 #### [facility] [address], [place], [id number] MAGNESIUM Collected: 09/23/2018 Status: F Source: [place] 7:10 AM [facility] REPOSITORY TYPE CODE TESTS RESULT OUT OF RANGE REFERENCE UNITS LAB L501.5200 1.6-2.6 mg/dL Normal MG 1.9 Performed By: #### L500.2500, L501.2300, L501.5200 #### [facility] [address] [place], [address] HISTORY AND PHYSICAL Observed: 09/22/2018 Status: F Source: [place] EXAM 9:49 PM [facility] REPOSITORY [facility] Medical Records Department [address] [place] [address] History and Physical 09/20/181956 MR#: [id number] Acct: [id number] Name: ROSALIE HORNE Rep #: [id number] : 1975 43 From: Yrn Hendricks MD PCP: Franco Jacques, DO Status: ADM IN Y Location: ICU ICU05-1 History and Physical Date of Admission: 09/21/18 HISTORY OF PRESENT ILLNESS The patient is a 43 year old F with a history of morbid obesity and borderline diabetes who presents with worsening pain and swelling in her massive abdominal panniculus mostly on the right side. The left side is much softer. This has a persistent nonhealing ulcer in the central aspect of the lower abdominal panniculus. She was hospitalized in May, and had surgery where she underwent surgical preparation lower anterior abdominal wall massive panniculus with excisional debridement nonhealing ulcer and skin and subcutaneous tissue for necrotizing soft tissue infection and panniculectomy (777 cm2). Operative cultures showed Methicillin resistant Staphylococcus hominis hominis and Anaerobes. She was treated with Vancomycin and Cleocin. She has a persistent ulceration centrally in the lower abdominal panniculus and is doing daily Silver dressing changes. She denies any fever. With the increasing pain and swelling in the right side of her massive panniculus, she presents today to begin surgical debridement. PAST MEDICAL HISTORY abdominal wall skin crease intertrigo. Abdominal panniculus, symptomatic. Skin ulcer of abdominal wall with fat layer exposed. Anxiety and depression. Allergic rhinitis. MARCE (obstructive sleep apnea). Obesity, Class III, BMI 40-49.9. Asthma. Prediabetes. Hypertension. Hypothyroid. PAST SURGICAL HISTORY 3, cholecystectomy, tonsillectomy. Surgical preparation lower anterior abdominal wall massive panniculus with excisional debridement nonhealing ulcer and skin and subcutaneous tissue for necrotizing soft tissue infection and panniculectomy (777 cm2) - 05/11/18. ALLERGIES diphenhydramine HCl [From Benadryl] metronidazole [From Flagyl] venom-honey bee [bee venom (honey bee)] aspirin codeine ibuprofen Penicillins MEDICATIONS Tylenol. Albuterol. HCTZ. Synthroid. Claritin. Singulair. Aleve. Nystatin Powder. Prilosec. Zofran. OxyIR. Zoloft. SOCIAL HISTORY Psychiatric History: Anxiety, Depression GLOBAL MARKETING OPERATIONS MANAGER History: No pertinent GLOBAL MARKETING OPERATIONS MANAGER history Lives: With Family - Patient lives with her 3 children. Smoking Status: Never smoker Tobacco Use: Non-smoker Alcohol: None Drugs: None FAMILY HISTORY Maternal - Patient notes a maternal and paternal family history of heart disease, diabetes, high cholesterol, cancer. Paternal - Patient notes a maternal and paternal family history of heart disease, diabetes, high cholesterol, cancer. REVIEW OF SYSTEMS General - Denies fever, fatigue, and weight [...] Genitourinary - Denies hematuria and urinary frequency. PHYSICAL EXAMINATION General - Alert and Oriented HEENT - PERRL. EOMI. Throat is clear. Neck - Supple and nontender. No cervical adenopathy. Lungs - Clear to auscultation. Heart - Regular rate and rhythm. Abdomen - Firm dependent edema present. No purulent drainage noted. Lower midline scar from umbilicus to pubis. Extensive abdominal wall skin crease intertrigo. Lower midline ventral hernia. Massive abdominal panniculus with right sided panniculitis from the way she is lying in the bed. She is rotated toward the right leading to increased dependent edema. Right side area of panniculitis measures about 65 cm. Tender to palpation. Has nonhealing ulcer in central aspect of lower abdominal wall panniculus. Extremities - FROM. No axillary adenopathy. Radial pulses are palpable. Neuro - CN II-XII grossly intact. Psych - Normal mood and affect. ASSESSMENT 1. 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 2. Nonhealing ulcer central aspect lower anterior abdominal wall. 3. Borderline diabetes. 4. Abdominal wall skin crease intertrigo. 5. Morbid obesity. 6. Incisional hernia. 7. History of methicillin resistant Staphylococcus hominis hominis. PLAN With her previous operative culture in May that showed a Methicillin resistant Staphylococcus hominis hominis, will treat her perioperatively with Vancomycin. Continue Silver dressing changes daily. The right side of her large abdominal pannus has dependent edema and is at risk for another necrotizing infection. When she was in the hospital, it was discussed with her that she would need multiple panniculectomy procedures because of the risk of excising the massive panniculus all at once. Also the central portion would be excised last because of the presence of the hernia. At that time would need assistance from General Surgery for repair of the hernia. Will schedule the panniculectomy under general anesthesia with a surgical observation overnight stay in the hospital. The VAC will be applied the following day. Her Prealbumin from 05/12/18 was 21.1. Encourage nutritional supplementation with protein to help the healing process. Patient was informed of the risks and complications of the procedure including alternatives to surgery. These were discussed with her personally. She voices understanding and wishes to proceed. She understands that multiple procedures will be necessary. I will be conservative in my excision to minimize problems postoperatively. One of the limiting factors is the amount of blood loss during the surgery. I anticipate about 450-500 ml blood loss that I will tolerate before stopping the surgery. After some healing has occurred, I can proceed with additional operative excision. Any tissue that is removed would be sent to Pathology for analysis to rule out carcinoma and to Microbiology for culture. A positive culture may necessitate antibiotic modification. 09/22/18 1573 <Electronically signed by Yrn Hendricks MD> Date Yrn Hendricks MD Cosigner Signature: Date (if applicable) CC: Yrn Hendricks MD; Franco Jacques DO; [facility] Signed MAGNESIUM Collected: 09/22/2018 Status: F Source: MELANIE 4:55 PM [facility] REPOSITORY TYPE CODE TESTS RESULT OUT OF RANGE REFERENCE UNITS LAB L501.5200 1.6-2.6 mg/dL Normal MG 1.6 Performed By: #### L501.5200, L503.6030, L503.6550 #### [facility] [address] [place], [address] IRON+IRON BINDING Collected: 09/22/2018 Status: F Source: MELANIE CAPACITY 4:55 PM [facility] REPOSITORY TYPE CODE TESTS RESULT OUT OF REFERENCE UNITS RANGE LAB L503.6075 250-450 ug/dL Low TIBC 234 LAB L503.6150 50-170 ug/dL Low IRON 23 LAB L503.6250 15.0-55.0 % Low IRON SATURATION 9.8 Performed By: #### L501.5200, L503.6030, L503.6550 #### [facility] [address] [place], [address] FERRITIN Collected: 09/22/2018 Status: F Source: [place] 4:55 PM [facility] REPOSITORY TYPE CODE TESTS RESULT OUT OF RANGE REFERENCE UNITS LAB L503.6550 8-252 ng/mL Normal FERRITIN 28 Performed By: #### L501.5200, L503.6030, L503.6550 #### [facility] [address] [place], [address] PHOSPHORUS Collected: 09/22/2018 Status: F Source: [place] 4:55 PM [facility] REPOSITORY Order Comment: Comments: OK to use the AM blood draw TYPE CODE TESTS RESULT OUT OF RANGE REFERENCE UNITS LAB L501.2300 2.5-4.9 mg/dL Normal PHOS 2.9 Performed By: #### L501.2300 #### [facility] [address] [place], [address] ANTI-DNA (SINGLE) Collected: 09/22/2018 Status: F Source: [place] IGG, AB 4:55 PM [facility] REPOSITORY TYPE CODE TESTS RESULT OUT OF RANGE REFERENCE UNITS LAB L3410.0300 0-19 EU Normal SS AB <20 [id number] Result Comment: Negative: <20 Borderline: 20 - 25 Positive: >25 Performed at: - [facility] [id number] [employer] Clerk: Yanna Ying MD, Phone: [phone] Performed By: #### L3410.0300 #### [facility] (refer to report for specific site) refer to report for address and phone number CONSULTATION Observed: 09/22/2018 Status: F Source: MELANIE 7:19 AM [facility] REPOSITORY [facility] Medical Records Department [address] [facility] [place] [address] Consultation 09/21/18 1524 MR#: [id number] Acct: [id number] Name: ROSALIE HORNE Rep #: [id number] : 1975 43 From: Arnav Webber DO PCP: Franco Jacques DO Status: REG SD Y [facility] Reason for Consult Date of Consultation: 09/21/18 [...] 3, cholecystectomy, tonsillectomy. Psychiatric History: Anxiety, Depression GLO[employer] MARKETING OPERATIONS MANAGER History: No pertinent GLOBAL MARKETING OPERATIONS MANAGER history Smoking Status: Never smoker - *Family [...] Michel Shannon MD at 14:27 EST Tel [phone], Service support , Clinical Impression(s) from Imaging Studies Chest X-Ray 09/21/18 14:03 IMPRESSION: The tip of the left central line is at the junction of the superior vena cava and left brachiocephalic vein. Electronically Signed: Michel Shannon MD at 14:27 EST Tel [phone], Service support , Assessment/Plan Active and Suspected [...] data and collaboration with the care team. ([id number]) Code Visit 9xxxx: [id number] Critical care first hour 09/22/18 0719 <Electronically signed by Arnav Webber DO> Date Arnav Webber DO Cosigner Signature (if applicable): Date CC: Arnav Webber D.O.; Yrn Hendricks MD; Franco Jacques DO; Jared Ambrose DO Signed CBC-COMPLETE BLOOD CNT Collected: 09/22/2018 Status: F Source: [place]IE NO DIFF 5:00 AM [facility] REPOSITORY TYPE CODE TESTS RESULT OUT OF [...] MPV 9.8 Performed By: #### L100.0500 #### [facility] [address] [place], [address] BASIC METABOLIC Collected: 09/22/2018 Status: F Source: [place] PROFILE (BMP) 5:00 AM [facility] REPOSITORY TYPE CODE TESTS RESULT OUT OF [...] 8 Performed By: #### L500.2500, L506.0500 #### [facility] [address] [place], [address] PREALBUMIN Collected: 09/22/2018 Status: F Source: MELANIE 5:00 AM [facility] REPOSITORY TYPE CODE TESTS RESULT OUT OF REFERENCE UNITS RANGE LAB L506.0500 20.0-40.0 mg/dL Low PREALBUMIN 12.0 Performed By: #### L500.2500, L506.0500 #### [facility] [address] [place], [address] HEMOGLOBIN A1C Collected: 09/22/2018 Status: F Source: MEL[place]IE 5:00 AM [facility] REPOSITORY TYPE CODE TESTS RESULT OUT OF RANGE REFERENCE UNITS LAB L501.9985 4.2-6.3 % Normal HGB A1C 5.2 Performed By: #### L501.9985 #### [facility] [address] [place], [address] Observed: 09/21/2018 Status: F Source: [place]IE CULTURE, URINE 4:35 PM [facility] REPOSITORY Urine Culture Culture exhibits no growth. Performed By: #### M100.0650 #### [facility] [place], [address] HH, HEMOGLOBIN AND Collected: 09/21/2018 Status: F Source: [place]IE HEMATOCRIT 3:45 PM [facility] REPOSITORY TYPE CODE TESTS RESULT OUT OF RANGE REFERENCE UNITS LAB L100.1300 12.0-15.0 g/dl Low HGB 10.5 LAB L100.1400 37-47 % Low HCT 34.0 Performed By: #### L100.0600 #### [facility] [address] [place], [address] T4 FREE DIRECT Collected: 09/21/2018 Status: F Source: [place]IE 3:45 PM [facility] REPOSITORY TYPE CODE TESTS RESULT OUT OF REFERENCE UNITS RANGE LAB L506.0400 0.76-1.46 ng/dL High T4 FREE 1.53 DIRECT Performed By: #### L506.0400 #### [facility] [address] [place], [address] OPERATIVE REPORT Observed: 09/21/2018 Status: F Source: [place]EL[place]IE 2:46 PM [facility] REPOSITORY [facility] Medical Records Department [address] [address] Operative Report 09/21/18 1441 MR#: [id number] Acct: [id number] Name: ROSALIE HORNE Rep #: [id number] : 1975 43 From: Gato Lobo MD PCP: Franco Jacques DO Status: REG SDC Y [facility] Problem List (1) Encounter for adjustment or [...] 1 VIEW Observed: 09/21/2018 Status: F Source: [place] (PORTABLE) 2:04 PM [facility] REPOSITORY [facility] Imaging Services [address] [place] [address] Chest 1 View (Portable) MR#: [id number] Acct: [id number] Name: ROSALIE HORNE Rep #: [id number] : 1975 F 43 From: Michel Shannon MD PCP: Franco Jacques DO Status: REG [facility] Study: Chest 1 View (Portable) Date of Exam: 09/21/18 Exam# [id number] Ordering Dr: Jerry Petersen MD STUDY: X-RAY [...] Michel Shannon MD at 14:27 EST Tel [phone], Service support , CC: Jerry Petersen MD; Franco Jacques DO Publicity Writer: Signed HEMOGLOBIN Collected: 09/21/2018 Status: F Source: [place] 12:05 PM [facility] REPOSITORY TYPE CODE TESTS RESULT OUT OF RANGE REFERENCE UNITS LAB L100.1300 12.0-15.0 g/dl Low HGB 6.2 Performed By: #### L100.1300 #### [facility] [address] [facility] [place], [place], [id number] TYPE AND SCREEN Collected: 09/21/2018 Status: F Source: [place] 12:05 PM [facility] REPOSITORY Order Comment: CMV NEG? N Number [...] pt arrived? N Anticipated time of surgery: 0900 CMV NEG?* N Give When? When Ready Irradiated? N Leukodepleted? Y Reason for Type AND Screen/Red Cells: SURGERY Surgery Date: 09/21/18 Time: 1200 Other - use comments: . Type of Surgery: OTHER TYPE CODE TESTS RESULT OUT OF RANGE REFERENCE UNITS LAB B10.0800 A Normal BLOOD TYPE GEL POSITIVE LAB B100.4000 Normal Antibody NEGATIVE Screen Performed By: #### B101.7450 #### [facility] [address] [facility] [place], [place], [address] RC Collected: 09/21/2018 Status: F Source: [place] 12:05 PM [facility] REPOSITORY TYPE CODE TESTS RESULT OUT OF REFERENCE UNITS RANGE LAB U100.0000 [id number] TRANSFUSED PRODUCT: T AND S with Crossmatch, Red Cells COUNT: 2 Performed By: #### U100.0000 #### [facility] - refer to report for specific site RC Collected: 09/21/2018 Status: F Source: [place] 12:05 PM [facility] REPOSITORY TYPE CODE TESTS RESULT OUT OF REFERENCE UNITS RANGE LAB U100.0000 [id number] TRANSFUSED PRODUCT: T AND S with Crossmatch, Red Cells COUNT: 2 Performed By: #### U100.0000 #### [facility] - refer to report for specific site Observed: 09/21/2018 Status: F Source: [place] CULTURE, DEEP WOUND 11:34 AM [facility] REPOSITORY Order Date: 05/06/17 List Antibiotics Last 48 Hours? VANCOMYCIN Has pt arrived? Y Comments: TISSUE RIGHT PANNUS Gram Stain Gram Stain 4+ Red Blood Cells 1+ White Blood Cells No organisms seen Wound Culture #2 AND 3 There are no CLSI standards for interpretation of this Drug/Organism combination. ORGANISM 1: Staphylococcus simulans Amount Growth 1+ ORGANISM 2: Corynebacterium striatum Amount Growth Rare ORGANISM 3: Corynebacterium amycolatum Amount Growth Rare Staphylococcus simulans: REACTION Benzylpenicillin NF <=0.03 R Cefoxitin *NF - Clindamycin $$ >=8 R Inducable Clindamycin Resistan - Erythromycin $ >=8 R Gentamicin $ <=0.5 S Levofloxacin $ <=0.12 S Oxacillin NF <=0.25 S Tigecycline $$$$ <=0.12 S Rifampin $$ <=0.5 S Tetracycline NF <=1 S Vancomycin $ <=0.5 S (NF) indicates non-formulary drug at [facility]. Approval by Infectious Disease Specialist required before non-formulary drugs may be ordered and/or dispensed. * CLSI guidelines does not recommend testing of cephalosporins. This interpretation is deduced from Beta-lactam/penicillin results. Cult, Anaerobic Studies have confirmed that Anaerobic Gram Positive Cocci are routinely susceptible to: Penicillin/Ampicillin, Ampicillin/Sulbactam, Piperacillin/Tazobactam, Cefoxatin, Ertapenem, Imipenem, Meropenem and Metronidazole and vary in resistance to: Clindamycin and Moxifloxacin. ORGANISM 1: Anaerobic cocci Performed By: #### M100.1500 #### [facility] [address] [place], [address] Observed: 09/21/2018 Status: P Source: [place] CULTURE, FUNGUS W/ 11:34 AM [facility] [id number] REPOSITORY Comments: TISSUE RIGHT PANNUS Has pt arrived? Y Is this test to exclude patient from TB Isolation? [address] TESTING PERFORMED AT [facility]. ORIGINAL REPORT ON FILE IN LAB CONTAINS ADDITIONAL TEST SITE INFORMATION. Fungus Stain No yeast or mold observed. Performed By: #### M600.1900 #### [facility] [address] [place], [address] PANNUS Observed: 09/21/2018 Status: F Source: [place] 8:30 [facility] REPOSITORY Patient: ROSALIE HORNE : 1975 (43/F) Acct Num: [id number] Phys: Yrn Hendricks MD Unit Num: [id number] Loc: MS2 [id number] Specimen: [id number] Received: 09/21/184 Spec Type: PANNUS TISSUES 1 TISSUES: Abdomen, NOS COMMENT The findings are consistent with panniculitis. Clinical correaltion is suggested. GROSS DESCRIPTION Received is one container labeled with the patient's name and not further designated. The specimen consists of multiple irregular fragments of skin with attached yellow fatty tissue ranging in size from 5 to 30 cm in greatest dimension and in aggregate weighing 4859 gm. No cutaneous lesions are identified. Serial sections reveal chalky yellow cut surfaces. The cutaneous surface does not contain mass lesions. Licensed Pesticide Applicator sections are submitted in six cassettes. / AM:jeromy 09/22/18 TC:3 CPT: 93008 HEADER OPERATION: Panniculus excisional debridement ulcer, skin and subcutaneous PRE-OP DIAGNOSIS: Massive abdominal panniculus with nonhealing infected ulcer and panniculitis; abdominal wall skin crease intertrigo; morbid obesity TISSUE SUBMITTED: Tissue right pannus MICROSCOPIC DESCRIPTION Slides are reviewed. MICROSCOPIC DIAGNOSIS Right pannus tissue: Fat necrosis, fibrosis, granulation and associated chronic inflammation. Focal dystrophic microcalcifications. AM:jeromy 09/23/18 Signed Roman Alarcon, DO 09/23/18 <signature on file> Performed By: #### PPANN #### [facility] [address] [place], [address] CBC W/DIFF, AUTOMATED Collected: 09/21/2018 Status: F Source: [place] 7:31 AM [facility] REPOSITORY Order Comment: Reason for Laboratory Test [...] TARGET CELLS. Performed By: #### L100.0100 #### [facility] [address] [place], [address] BASIC METABOLIC Collected: 09/21/2018 Status: F Source: [place] PROFILE (BMP) 7:31 AM [facility] REPOSITORY Order Comment: Reason for Laboratory Test [...] 10 Performed By: #### L500.2500, L501.9520 #### [facility] [address] [place], [address] THYROID STIM HORMONE Collected: 09/21/2018 Status: F Source: [place] (TSH) 7:31 AM [facility] REPOSITORY Order Comment: Reason for Laboratory Test surgery TYPE CODE TESTS RESULT OUT OF RANGE REFERENCE UNITS LAB L501.9520 0.358-3.74 uIU/mL Low TSH 0.11 Performed By: #### L500.2500, L501.9520 #### [facility] [address] [place], [address] ,SERUM,HCG QUALI. Collected: Status: F Source: [place] 09/21/2018 7:31 AM [facility] REPOSITORY TYPE CODE TESTS RESULT OUT OF REFERENCE UNITS RANGE LAB L700.6700 =>Qualitative mIU/mL Normal HCG Qual < 1 triggr LAB L700.7000 0-9 Nonpreg Negative Normal HCGSQUAL NEGATIVE Performed By: #### L700.6800 #### [facility] [address] [place], [address] CNPN Observed: 08/19/2018 Status: COMPLETED Source: [place] 12:00 AM [facility] REPOSITORY [facility] ROSALIE [facility]OR[facility] ([id number]) 1975 F Date Time Provider Department 08/19/18 FRANCO BARDALES [facility] During your visit today, we recorded the following information about you: Bebe Velazco LPN 08/19/2018 1:50 PM Signed Jazmin with [facility] [phone] calling to request a prescription again for a Bariatric Wheelchair. This was orders for patient earlier and delivered but the patient was not able to fit in it and they had to come and pick it up. Patient has lost weight and will be able to fit in it now. [facility] requires a new prescription be sent to them and they can deliver to patient. Bebe Redding APRN.ALYCIA 08/19/2018 2:07 PM Signed Please process request. Trisha Redding APRN.ALYCIA Hernandez LPN 08/19/2018 3:36 PM Signed Order pending. Please print order. Will fax once printed and signed. Satish Redding APRN.ALYCIA 08/19/2018 3:38 PM Signed completed Satish Hernandez LPN 08/19/2018 3:54 PM Signed Order printed and [facility] to [facility] Satish Braswell, RN, RN 08/20/2018 12:37 PM [...] E66.01 Z68.45 M25.50 Please send to address: [address] [place] [address](pt currently at this facility)Disp: 1 EachRfl: 0 Prescriptions as of 08/19/2018 Sig: COMPOUNDED PRESCRIPTION Bariatric Wheelchair Dx: E66.* TRANSPARENT DRESSINGS 4 3/8 * Apply 1 [...] E66.01 Z68.45 M25.50 Please send [place] address: [place] [address](pt currently at this facility) Medications Discontinued During This Encounter COMPOUNDED PRESCRIPTION 1 Ea* 0 06/02/2018 08/19/2018 Class: Print RX Sig: Bariatric Wheelchair Dx: E66.01 Z68.45 M25.50 Please send to address: [place] [address](pt currently at this facility) Disc: Reason for discontinue is not on file. Encounter Status:Closed by SATISH HERNANDEZ LPN on 08/19/18 EMERGENCY DEPARTMENT Observed: 08/03/2018 Status: F Source: [place] SUMMARY 9:05 [facility] REPOSITORY [facility] Medical Records Department [address] [place] [address] Emergency Department Summary 03/08/18 0101 MR#: [id number] Acct: [id number] Name: ROSALIE HORNE Rep #: [id number] : 1975 42 From: Xiomara Bynum DO [...] Impression: [] This note was generated with Arche[employer] dictation software. It may contain incorrect words, [...] your Primary Care Provider. Call [facility] ([phone]) or report to the closest Emergency Room. Call 911 if necessary. Date Xiomara Bynum DO Cosigner Signature (If Indicated): Date CC: Franco Jacques DO EMERGENCY DEPARTMENT Observed: 06/29/2018 Status: F Source: [place] SUMMARY 9:13 PM [facility] REPOSITORY [facility] Medical Records Department [address] [place] [address] Emergency Department Summary 06/29/18 2106 MR#: [id number] Acct: [id number] Name: ROSALIE HORNE Rep #: [id number] : 1975 43 From: Davon Wyatt MD [...] abdominal wall This note was generated with Arche[employer] dictation software. It may contain incorrect words, [...] your Primary Care Provider. Call [facility] ([phone]) or report to the closest Emergency Room. Call 911 if necessary. 06/29/182112 <Electronically signed by Davon Wyatt MD> Date Davon Wyatt MD Cosigner Signature (If Indicated): Date CC: Yrn Hendricks MD; Franco Jacques DO LACTIC ACID Collected: 06/29/2018 Status: F Source: [place] 6:45 PM [facility] REPOSITORY Order Comment: Yes/No query for Sepsis Lactate Rule Y TYPE CODE TESTS RESULT OUT OF RANGE REFERENCE UNITS LAB L503.6005 0.4-2.0 mmol/L Normal LACTIC ACID 1.7 Performed By: #### L503.6005 #### [facility] [address] [place], [place], [address] CBC W/DIFF, AUTOMATED Collected: 06/29/2018 Status: F Source: [place] 6:45 PM [facility] REPOSITORY TYPE CODE TESTS RESULT OUT OF [...] Lymph 2.09 Performed By: #### L100.0100 #### [facility] [address] [place], [place], [address] BASIC METABOLIC Collected: 06/29/2018 Status: F Source: [place] PROFILE ([facility]) 6:45 PM [facility] REPOSITORY TYPE CODE TESTS RESULT OUT OF [...] GAP 9 Performed By: #### L500.2500 #### [facility] [address] [place], [address] DISCHARGE SUMMARY Observed: 05/21/2018 Status: F Source: [place] 12:18 PM [facility] REPOSITORY [facility] Medical Records Department [address] [place] [address] Discharge Summary 05/21/18 1205 MR#: [id number] Acct: [id number] Name: COLEENROSALIE E Rep #: [id number] : 1975 42 From: Cuca Mast PCP: Franco Jacques DO Status: ADM IN Y Location: MS3 SE418-3 Discharge Date and Diagnosis - Problem List [...] Allergic Rhinitis, Hypothyroidism who presented to the [facility] ED on 05/06/18 with history of prolonged difficulties w/ abdominal wall/pannicular cellulitis most recently treated inpatient 2 months prior at [facility] with improvement; however, worsened again recently w/ [...] tachycardia, increased RR, elevated LA. Admitted to [place], maintained initially on IV vanc and zosyn-->transitioned [...] compliance as not using. Upon discharge to [facility] planned follow- up with Plastic Surgery, ongoing [...] Medications to take at Discharge Lisinopril/Hydrochlorothiazide [Zestoretic 10/12.5 Tablet] 1 tablet PO DAILY 03/08/18 Loratadine [...] wound care center. Please Follow Up With: Moisés Soriano MD When: As needed, will continue to follow routine labs while on antibiotics Disposition: [facility] facility Minutes spent on discharge:: 35 Patient Condition:: Fair Medical Necessity - Tobacco Use Smoking Status: Never smoker Tobacco Use: Non-smoker Meaningful Use Info Meaningful Use Diagnoses (Choose all that apply): None applicable Code Visit Inpatient E AND M: 86117 Disch Hosp 05/21/18 1218 <Electronically signed by Cuca Mast > Date Cuca Cynthia Mast Cosigner Signature (if applicable): Date CC: Cuca Mast; Franco Jacques DO Signed PROGRESS Observed: 05/21/2018 Status: COMPLETED Source: [place] 9:46 AM [facility] REPOSITORY HNO ID: [id number] Author: Porfirio Nguyen (Rn) Service: (none) Author Type: Registered Nurse Type: Progress Notes Filed: 05/21/2018 9:52 AM Note Text: PRIMARY CARE COORDINATION FOLLOW-UP NOTE Provider Action/FYI Spk with [facility] Lindsay Joe RN CM, Pt remains Inpt awaiting precert authorization from Care source with anticipated transfer to [place] for IV ATB s/p Panniculectomy. Patient identified by name and date of . YES Wendy Monroy RN May 21, 2018 VANCOMYCIN, TROUGH Collected: 05/21/2018 Status: F Source: [facility] 7:42 AM [facility] REPOSITORY Order Comment: Time Medication is to [...] (Ventilator/Healtcare Associated) -Sepsis PLEASE CONTACT PHARMACY SERVICES (#3124) FOR INTERPRETATION OF RESULTS. Performed By: #### L501.8820 #### [facility] [place], [address] CNPTOUTREACH Observed: 05/21/2018 Status: COMPLETED Source: [place] 12:00 AM [facility] REPOSITORY Patient Outreach (FAMPWS) ROSALIE HORNE ([id number]) 1975 F Date Time Provider Department 05/21/18 PORFIRIO NGUYEN (RN) FAMPWS During your visit today, we recorded the following information about you: Wendy Monroy RN 05/21/2018 9:52 AM Signed PRIMARY CARE COORDINATION FOLLOW-UP NOTE Provider Action/FYI Spk with [facility] Lindsay Joe RN CM, Pt remains Inpt awaiting precert authorization from Care source with anticipated transfer to [place] for IV ATB s/p Panniculectomy. Patient identified [...] LPN - Fully Assessed Reason for Visit: Compliance Technician Hospital Follow Up [6359] Cmt: [facility] Prescriptions as of 05/21/2018 Sig: TRANSPARENT DRESSINGS 4 3/8 * Apply [...] 05/21/18 PROGRESS Observed: 05/20/2018 Status: COMPLETED Source: [place] 2:41 PM [facility] REPOSITORY HNO ID: [id number] Author: Porfirio Nguyen (Rn) Service: (none) Author [...] 05/20/2018 Status: F Source: [place] 10:15 AM [facility] REPOSITORY Order Comment: NURSE DRAW UTO TO [...] Lymph 2.13 Performed By: #### L100.0100 #### [facility] [address] [place], [address] BASIC METABOLIC Collected: 05/20/2018 Status: F Source: [place] PROFILE ([facility]) 10:15 AM [facility] REPOSITORY Order Comment: NURSE DRAW. UTO TO [...] GAP 9 Performed By: #### L500.2500 #### [facility] [address] [place], [place], [address] IRON+IRON BINDING Collected: 05/20/2018 Status: F Source: [facility] 10:15 AM [facility] REPOSITORY TYPE CODE TESTS RESULT OUT OF RANGE REFERENCE UNITS LAB L503.6075 250-450 ug/dL TIBC Normal 338 LAB L503.6150 50-170 ug/dL Low IRON 20 LAB L503.6250 15.0-55.0 % Low IRON SATURATION 5.9 Performed By: #### L503.6030, L503.6550, L506.0250 #### [facility] [address] [place], [address] FERRITIN Collected: 05/20/2018 Status: F Source: [place] 10:15 AM [facility] REPOSITORY TYPE CODE TESTS RESULT OUT OF RANGE REFERENCE UNITS LAB L503.6550 8-252 ng/mL Normal FERRITIN 95 Performed By: #### L503.6030, L503.6550, L506.0250 #### [facility] [address] [place], [address] FOLATES, (FOLIC ACID) Collected: 05/20/2018 Status: F Source: [place] 10:15 AM [facility] REPOSITORY TYPE CODE TESTS RESULT OUT OF RANGE REFERENCE UNITS LAB L506.0250 3.1-55.4 ng/mL Normal FOLATES 13.30 Result Comment: Slight Hemolysis, Result may be falsely increased. Performed By: #### L503.6030, L503.6550, L506.0250 #### [facility] [address] [place], [address] VITAMIN B12 Collected: 05/20/2018 Status: F Source: [place] 10:15 AM [facility] REPOSITORY TYPE CODE TESTS RESULT OUT OF RANGE REFERENCE UNITS LAB L503.0105 211-911 pg/mL Normal Vitamin B12 392 Performed By: #### L503.0105 #### [facility] [address] [facility] [place], [address] CXR FOR LINE PLACEMENT Observed: 05/20/2018 Status: F Source: [place] 9:50 AM [facility] REPOSITORY [facility] Imaging Services [address] [place] [address] CXR for Line Placement MR#: [id number] Acct: [id number] Name: ROSALIE HORNE Rep #: [id number] : 1975 F 42 From: Michel Shannon MD PCP: Franco Jacques DO Status: ADM IN Study: CXR for Line Placement Date of Exam: 05/20/18 Exam# [id number] Ordering Dr: Cuca Mast STUDY: X-RAY CHEST [...] Michel Shannon MD at 12:23 EDT Tel [phone], Service support , CC: Cuca Mast; Franco Jacques DO Publicity Writer: Signed ALYCIATOUTREACH Observed: 05/20/2018 Status: COMPLETED Source: [place] 12:00 AM [facility] REPOSITORY Patient Outreach (FAMPWS) ROSALIE HORNE ([id number]) 1975 F Date Time Provider Department 05/20/18 PORFIRIO NGUYEN (RN) FAMPWS During your visit today, we [...] LPN - Fully Assessed Reason for Visit: Compliance Technician- Other [3898] Cmt: D/C to SNF 05/19/18 Reason For Visit History Recorded Prescriptions as of 05/20/2018 Sig: TRANSPARENT DRESSINGS 4 12/10 * Apply [...] by WENDY MONROY on 05/20/18 TRANSFER TO [facility] Observed: 05/19/2018 Status: F Source: [facility] 12:58 PM [facility] REPOSITORY [facility] Medical Records Department [address] [place] [address] [facility] Care MR#: [id number] Acct: [id number] Name: ROSALIE HORNE Rep #: [id number] : 1975 42 From: Cuca Mast PCP: Franco Jacques DO Status: ADM IN ROSALIE HORNE (Patient) (Health Ins. Claim No.) (Day of Discharge to Facility) Certification of patient admission REQUIRED AT TIME OF ADMISSION. I CERTIFY THAT POST-HOSPITAL [facility] SERVICES ARE REQUIRED TO BE GIVEN ON AN IN-PATIENT BASIS BECAUSE OF THE ABOVE NAMED PATIENT'S NEED FOR PENITENTIARY CARE ON A CONTINUING BASIS FOR THE CONDITION(S) FOR WHICH HE/SHE WAS RECEIVING IN-PATIENT HOSPITAL SERVICES PRIOR TO HIS/HER TRANSFER TO THE [facility]. 05/19/18 1258 <Electronically signed by Cuca Mast [...] Incision Dressing Change: mepitel/ ABDs/ Medipore/ betadine communications attendant kerlix - Suggestions for Active Care Change [...] wound care center. Please Follow Up With: Moisés Soriano MD When: As needed, will continue to follow routine labs while on antibiotics 05/19/18 1258 <Electronically signed by Cuca Mast > Date Cuca Mast CC: Adonay Hollingsworth MD; Yrn Hendricks MD; Franco Jacques DO; Moisés Soriano MD Signed THYROID STIM HORMONE Collected: 05/19/2018 Status: F Source: [place] (TSH) 9:55 AM [facility] REPOSITORY TYPE CODE TESTS RESULT OUT OF RANGE REFERENCE UNITS LAB L501.9520 0.358-3.74 uIU/mL High TSH 4.27 Performed By: #### L501.9520, L506.0400 #### [facility] [address] [place], [address] T4 FREE DIRECT Collected: 05/19/2018 Status: F Source: [place] 9:55 AM [facility] REPOSITORY TYPE CODE TESTS RESULT OUT OF REFERENCE UNITS RANGE LAB L506.0400 0.76-1.46 ng/dL High T4 FREE 1.64 DIRECT Performed By: #### L501.9520, L506.0400 #### [facility] [address] [place], [address] TRANSFER TO [facility] Observed: 05/17/2018 Status: F Source: [place] CARE 11:23 AM [facility] REPOSITORY [facility] Medical Records Department [address] [place] [address] [facility] Care MR#: [id number] Acct: [id number] Name: ROSALIE HORNE Rep #: [id number] : 1975 42 From: Lawrence Jones MD PCP: Franco Jacques DO Status: ADM IN ROSALIE HORNE (Patient) (Health Ins. Claim No.) (Day of Discharge to Facility) Certification of patient admission REQUIRED AT TIME OF ADMISSION. I CERTIFY THAT POST-HOSPITAL [facility] SERVICES ARE REQUIRED TO BE GIVEN ON AN IN-PATIENT BASIS BECAUSE OF THE ABOVE NAMED PATIENT'S NEED FOR PENITENTIARY CARE ON A CONTINUING BASIS FOR THE CONDITION(S) FOR WHICH HE/SHE WAS RECEIVING IN-PATIENT HOSPITAL SERVICES PRIOR TO HIS/HER TRANSFER TO THE ECF. 05/17/18 1123 <Electronically signed by Lawrence Jones [...] Incision Dressing Change: mepitel/ ABDs/ Medipore/ betadine communications attendant kerlix - Suggestions for Active Care Change [...] wound care center. Please Follow Up With: Moisés Soriano MD When: call his office. 05/17/18 1123 <Electronically signed by Lawrence Jones MD> Date Lawrence Jones MD CC: Adonay Hollingsworth MD; Yrn Hendricks MD; Franco Jacques DO; Moisés Soriano MD Signed VANCOMYCIN, TROUGH Collected: 05/17/2018 Status: F Source: [place]IE LEVEL 9:30 AM [facility] REPOSITORY Order Comment: Time Medication is to [...] (Ventilator/Healtcare Associated) -Sepsis PLEASE CONTACT PHARMACY SERVICES (#2865) FOR INTERPRETATION OF RESULTS. Performed By: #### L501.8820 #### [facility] [address] [place], [address] VANCOMYCIN, TROUGH Collected: 05/16/2018 Status: F Source: [place] LEVEL 5:30 PM [facility] REPOSITORY Order Comment: Time Medication is to [...] (Ventilator/Healtcare Associated) -Sepsis PLEASE CONTACT PHARMACY SERVICES (#2439) FOR INTERPRETATION OF RESULTS. Performed By: #### L501.8820 #### [facility] [address] [place], [address] VANCOMYCIN, TROUGH Collected: 05/15/2018 Status: F Source: [place]IE LEVEL 8:24 AM [facility] REPOSITORY Order Comment: Comments: DRAW TROUGH LEVEL [...] (Ventilator/Healtcare Associated) -Sepsis PLEASE CONTACT PHARMACY SERVICES (#5701) FOR INTERPRETATION OF RESULTS. Performed By: #### L501.8820 #### [facility] [address] [place], [address] CONSULTATION Observed: 05/14/2018 Status: F Source: [place] 2:03 PM [facility] REPOSITORY [facility] Medical Records Department [address] [facility] [place] [address] Consultation 05/14/18 1356 MR#: [id number] Acct: [id number] Name: DC HORNETALITA Pacheco Rep #: [id number] : 1975 42 From: Moisés Soriano MD PCP: Franco Jacques DO Status: ADM IN Y Location: MS3 SY180-2 Problem List (1) Necrotizing soft tissue infection Status: Acute (2) Panniculitis Status: Acute Reason for Consult: panniculitis Consulted by: Dr. Jones History of Present Illness: The patient is a 42 year old F with morbid obesity and recurrent panniculitis for several years who presented with several weeks of worsened pain, redness, swelling. Some chills. Had been at [facility] recently and d/c on iv abx. Now [...] vanc trough. Will follow, thank you. D/w medical case worker, rx written for labs and abx. 05/14/18 1403 <Electronically signed by Moisés Soriano MD> Date Moisés Soriano MD Cosigner Signature (if applicable): Date CC: Adonay Hollingsworth MD; Yrn Hendricks MD; Franco Jacques DO; Moisés Soriano MD Signed OPERATIVE REPORT Observed: 05/14/2018 Status: F Source: [place] 1:32 PM [facility] REPOSITORY [facility] Medical Records Department [address] [place] [address] Operative Report 05/11/183 MR#: [id number] Acct: [id number] Name: ROSALIE HORNE Rep #: [id number] : 1975 42 From: Yrn Hendricks MD PCP: Franco Jacques, DO Status: ADM IN Y Location: [facility] [id number] Report of Operation Date of Procedure: 05/11/18 [...] of abdominal panniculitis, the most recent in [place]. Recently she was placed on oral antibiotics [...] - 21 x 37 x 4 cm. travel med surg rn: Gato Lobo MD Type of Anesthesia:: General [...] Yes Code Visit Surgery Charges CPT - 03196 ICD-10 - L98.492, M79.89, E65, M79.3, R73.03, L30.4, K43.2, E66.9 05/14/18 1332 <Electronically signed by Yrn Hendricks MD> Date Yrn Hendricks MD CC: Gato Lobo MD; Cuca Mast; Adonay Hollingsworth MD; Jerry Madrigal DO; [place] Jones; Yrn Hendricks MD; Franco Jacques DO; Jared Ambrose DO; [facility] Signed CBC W/DIFF, AUTOMATED Collected: 05/13/2018 Status: F Source: [place] 5:00 AM [facility] REPOSITORY Order Comment: SPECIMEN OBTAINED FROM LINE [...] Lymph 2.56 Performed By: #### L100.0100 #### [facility] [address] [place], [address] BASIC METABOLIC Collected: 05/13/2018 Status: F Source: [place] PROFILE ([facility]) 5:00 AM [facility] REPOSITORY Order Comment: SPECIMEN OBTAINED FROM LINE [...] GAP 7 Performed By: #### L500.2500 #### [facility] [address] [facility] [place], [address] LACTIC ACID Collected: 05/13/2018 Status: F Source: [place] 5:00 AM [facility] REPOSITORY Order Comment: SPECIMEN OBTAINED FROM LINE DRAW Yes/No query for Sepsis Lactate Rule Y TYPE CODE TESTS RESULT OUT OF RANGE REFERENCE UNITS LAB L503.6005 0.4-2.0 mmol/L Normal LACTIC ACID 0.5 Performed By: #### L503.6005 #### [facility] [address] [place], [address] CBC-COMPLETE BLOOD CNT Collected: 05/12/2018 Status: F Source: [place] NO DIFF 5:40 AM [facility] REPOSITORY Order Comment: SPECIMEN OBTAINED FROM LINE [...] MPV 10.1 Performed By: #### L100.0500 #### [facility] [address] [place], [address] BASIC METABOLIC Collected: 05/12/2018 Status: F Source: [place] PROFILE (BMP) 5:40 AM [facility] REPOSITORY Order Comment: SPECIMEN OBTAINED FROM LINE [...] 7 Performed By: #### L500.2500, L506.0500 #### [facility] [address] [place], [address] PREALBUMIN Collected: 05/12/2018 Status: F Source: [place] 5:40 AM [facility] REPOSITORY Order Comment: SPECIMEN OBTAINED FROM LINE DRAW TYPE CODE TESTS RESULT OUT OF RANGE REFERENCE UNITS LAB L506.0500 20.0-40.0 mg/dL Normal PREALBUMIN 21.1 Performed By: #### L500.2500, L506.0500 #### [facility] [address] [place], [address] PANNUS Observed: 05/11/2018 Status: F Source: [place] 9:00 AM [facility] REPOSITORY Patient: ROSALIE HORNE : 1975 (42/F) Acct Num: [id number] Phys: Lawrence Jones Unit Num: [id number] Loc: MS3 FO959-6 Specimen: [id number] Received: 05/12/18832 Spec Type: PANNUS TISSUES TISSUES: [...] Sections do not reveal any mass lesion. Licensed Pesticide Applicator sections are submitted in four cassettes. / MOOK:jeromy 05/12/18 TC:2 CPT: 44008 HEADER OPERATION: Abdominal panniculectomy, debridement, ulcer, lower abdominal wall PRE-OP DIAGNOSIS: Panniculitis, severe sepsis TISSUE SUBMITTED: Abdominal wall abscess/tissue MICROSCOPIC DESCRIPTION Slides are reviewed. MICROSCOPIC DIAGNOSIS Abdominal wall abscess/tissue, panniculectomy: Pieces of skin with underlying tissue with focal ulceration, fat necrosis and associated inflammation. MOOK:jeromy 05/13/18 Signed Hang Chew 05/13/18 <signature on file> Performed By: #### PPANN #### [facility] [address] [facility] [place], [address] PROTHROMBIN TIME W/INR Collected: 05/11/2018 Status: F Source: [place] 5:25 AM [facility] REPOSITORY TYPE CODE TESTS RESULT OUT OF RANGE REFERENCE UNITS LAB L300.4150 11.7-14.9 SECONDS Normal PROTIME 13.8 LAB L300.4200 Normal INR 1.1 Performed By: #### L300.3900, L300.4310, L100.0100, L700.6800 #### [facility] [facility] [place], [address] PARTIAL THROMBOPLAST Collected: 05/11/2018 Status: F Source: [place] TIME 5:25 AM [facility] REPOSITORY TYPE CODE TESTS RESULT OUT OF RANGE REFERENCE UNITS LAB L300.4310 24.1-36.2 Seconds Normal PTT 30.9 Performed By: #### L300.3900, L300.4310, L100.0100, L700.6800 #### [facility] [address] [facility] [facility] [place], [address] CBC W/DIFF, AUTOMATED Collected: 05/11/2018 Status: F Source: [place] 5:25 AM [facility] REPOSITORY TYPE CODE TESTS RESULT OUT OF [...] By: #### L300.3900, L300.4310, L100.0100, L700.6800 #### [facility] [address] [facility] [facility] [place], [place], [address] ,SERUM,HCG QUALI. Collected: Status: F Source: [place] 05/11/2018 5:25 AM [facility] REPOSITORY TYPE CODE TESTS RESULT OUT OF REFERENCE UNITS RANGE LAB L700.7000 0-9 Nonpreg Negative Normal HCGSQUAL NEGATIVE LAB L700.6700 =>Qualitative mIU/mL Normal HCG Qual < 1 triggr Performed By: #### L300.3900, L300.4310, L100.0100, L700.6800 #### [facility] [address] [facility] [place], [place], [address] BASIC METABOLIC Collected: 05/11/2018 Status: F Source: [place] PROFILE (BMP) 5:25 AM [facility] REPOSITORY TYPE CODE TESTS RESULT OUT OF [...] 8 Performed By: #### L500.2500, L501.9520 #### [facility] [address] [place], [place], [address] THYROID STIM HORMONE Collected: 05/11/2018 Status: F Source: [place]IE (TSH) 5:25 AM [facility] REPOSITORY TYPE CODE TESTS RESULT OUT OF RANGE REFERENCE UNITS LAB L501.9520 0.358-3.74 uIU/mL High TSH 47.40 Performed By: #### L500.2500, L501.9520 #### [facility] [address] [place], [address] Observed: 05/11/2018 Status: F Source: [place] CULTURE, DEEP WOUND 12:00 AM [facility] REPOSITORY Comments: 1) ABDOMINAL WALL ABSCESS/TISSUE Gram [...] 1 S (NF) indicates non-formulary drug at [facility]. Approval by Infectious Disease [...] 1 S (NF) indicates non-formulary drug at [facility]. Approval by Infectious Disease [...] Anaerococcus prevotii Performed By: #### M100.1500 #### [facility] [address] [place], [address] Observed: 05/11/2018 Status: F Source: MELANIE HERNANDEZ, REMI W/ 12:00 AM [facility] [id number] REPOSITORY Comments: 1) ABDOMINAL WALL ABSCESS/TISSUE Is this test to exclude patient from TB Isolation? N UniqueSlieae8746 TESTING PERFORMED AT [facility]. ORIGINAL REPORT ON FILE IN LAB CONTAINS ADDITIONAL TEST SITE INFORMATION. CUF No yeast or mold isolated after [address] TESTING PERFORMED AT [facility]. ORIGINAL REPORT ON FILE IN LAB CONTAINS ADDITIONAL TEST SITE INFORMATION. Fungus Stain No yeast or mold observed. Performed By: #### M600.1900 #### [facility] [address] [place], [address] CONSULTATION Observed: 05/10/2018 Status: F Source: [place] 10:59 PM [facility] REPOSITORY [facility] Medical Records Department [address] [address] [facility] [address] [address] Consultation 05/07/18 1909 MR#: [id number] Acct: [id number] Name: ROSALIE HORNE Rep #: [id number] : 1975 42 From: Yrn Hendricks MD PCP: Franco Jacques DO Status: ADM IN Location: [facility] [place] [id number] Reason for Consult Date of Consultation: 05/07/18 Reason for Consultation: Nonhealing infected ulcer lower anterior abdominal wall with massive panniculus and panniculitis. REFERRING PHYSICIAN: Dr. Mast. HAT BRIM AND CROWN LAMINATING OPERATOR: Dr. Hendricks. History of Present Illness: The patient is a 42 year old F with a history of morbid obesity and borderline diabetes who presented to the ED with worsening pain and redness and swelling in her massive abdominal panniculus with a nonhealing infected ulcer and panniculitis. She has been treated for her intermittent bouts of abdominal panniculitis, the most recent in [place]. Recently she was placed on oral antibiotics [...] anterior peritoneal are not included in the glsrw-jb-gkwq. Portion of a left anterior inferior abdominal [...] Sertraline HCl (Zoloft) 100 mg PO DAILY [facility] Home Medications: Ambulatory Orders Medication Instructions Recorded Lisinopril/Hydrochlorothiazide 1 tablet PO DAILY 03/08/18 [Zestoretic 10/12.5 Tablet] Loratadine [Claritin] 10 mg PO DAILY 03/08/18 Surgical History: - - 3, cholecystectomy, tonsillectomy. Psychiatric History: Anxiety, Depression GLOBAL MARKETING OPERATIONS MANAGER History: No pertinent GLOBAL MARKETING OPERATIONS MANAGER history Lives: With Family - Patient lives [...] surgery would be too high risk for [facility], then she would need to go to a tertiary center for further treatment. She states she has been in [place] before. Anticipate increased metabolic demands from her [...] center. Code Visit Inpatient E AND M: 50722 Init Hosp L2 - ICD-10 - L98.492, E65, M79.3, R73.03, L30.4, K43.2, E66.9 05/10/18 1641 <Electronically signed by Yrn Hendricks MD> Date Yrn Hendricks MD Cosigner Signature (if applicable): Date CC: Cuca Mast; Adonay Hollingsworth MD; Yrn Hendricks MD; Franco Jacques DO; Jared Ambrose DO; [facility] Signed Observed: 05/10/2018 Status: F Source: [place] CULTURE, DEEP WOUND 9:50 PM [facility] REPOSITORY Gram Stain Gram Stain 2+ White [...] 1 S (NF) indicates non-formulary drug at [facility]. Approval by Infectious Disease Specialist required before non-formulary drugs may be ordered and/or dispensed. * CLSI guidelines does not recommend testing of cephalosporins. This interpretation is deduced from Beta-lactam/penicillin results. Cult, Anaerobic No anaerobic bacteria isolated. Performed By: #### M100.1500 #### [facility] [address] [facility] [facility] [place], [address] 12 LEAD ELECTROCARDIOGRAM Observed: 05/10/2018 Status: F Source: [place] 2:26 PM [facility] REPOSITORY [facility] Cardiovascular Services [address] [place] [address] 12 Lead EKG 05/06/18 1543 MR#: [id number] Acct: [id number] Name: ROSALIE HORNE Rep #: [id number] : 1975 42 From: Nathan Alva MD Attending Dr: Lawrence Jones Status: ADM IN Ordering Dr: Mercedes Baer MD Date: 05/06/18 [facility] Normal ECG Confirmed by GRACIE GILMORE, NATHAN ([id number]), editorial specialist DON STANFORD ([id number]) on 05/10/2018 2:25:42 PM Referred By: FADY Confirmed By:NATHAN ALVA MD 05/10/18 1425 Date Nathan Alva MD CC: Mercedes Bear MD; Lawrence Jones; Franco Jacques DO Signed CONSULTATION Observed: 05/09/2018 Status: F Source: [place] 6:41 PM [facility] REPOSITORY [facility] Medical Records Department [address] [place] [address] Consultation 05/09/18 1836 MR#: [id number] Acct: [id number] Name: ROSALIE HORNE Rep #: [id number] : 1975 42 From: Adonay Hollingsworth MD PCP: Franco Jacques DO Status: ADM IN Y Location: [place] [id number] Problem List (1) Incisional hernia Status: Acute [...] of abdominal panniculitis, the most recent in [place]. Recently she was placed on oral antibiotics [...] anterior peritoneal are not included in the dalnf-fm-kkbb. Portion of a left anterior inferior abdominal [...] 3, cholecystectomy, tonsillectomy. 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 05/09/18 522 <Electronically signed by Adonay Hollingsworth MD> Date Adonay Hollingsworth MD Cosigner Signature (if applicable): Date CC: Adonay Hollingsworth MD; Yrn Hendricks MD; Franco Jacques DO Signed VANCOMYCIN, TROUGH Collected: 05/09/2018 Status: F Source: [place] LEVEL 3:30 PM [facility] REPOSITORY Order Comment: Time Medication is to [...] (Ventilator/Healtcare Associated) -Sepsis PLEASE CONTACT PHARMACY SERVICES (#[id number]) FOR INTERPRETATION OF RESULTS. Performed By: #### L501.8820 #### [facility] [place], [address] BASIC METABOLIC Collected: 05/09/2018 Status: F Source: [place] PROFILE (BMP) 5:10 AM [facility] REPOSITORY TYPE CODE TESTS RESULT OUT OF [...] Performed By: #### L500.2500, L501.6710, L506.0500 #### [facility] [address] [facility] [place], [place], [address] CRP Collected: 05/09/2018 Status: F Source: [place] 5:10 AM [facility] REPOSITORY TYPE CODE TESTS RESULT OUT OF RANGE REFERENCE UNITS LAB L501.6710 0.0-3.0 mg/L High 16.60 C-REACTIVE PROT Result Comment: C-Reactive Protein (CRP) provides useful information for the diagnosis, therapy and monitoring of inflammatory processes and associated diseases. For the evaluation of Relative Risk for Cardiovascular Disease, a High Sensitivity CRP (HSCRP) should be ordered. Performed By: #### L500.2500, L501.6710, L506.0500 #### [facility] [address] [facility] [place], [place], [address] PREALBUMIN Collected: 05/09/2018 Status: F Source: [place] 5:10 AM [facility] REPOSITORY TYPE CODE TESTS RESULT OUT OF REFERENCE UNITS RANGE LAB L506.0500 20.0-40.0 mg/dL Low PREALBUMIN 17.3 Performed By: #### L500.2500, L501.6710, L506.0500 #### [facility] [address] [facility] [place], [place], [address] ERYTHROCYTE SED RATE Collected: 05/09/2018 Status: F Source: [place] 5:10 AM [facility] REPOSITORY TYPE CODE TESTS RESULT OUT OF RANGE REFERENCE UNITS LAB L102.0000 0-20 mm/hr High SED RATE 40 Performed By: #### L101.9900 #### [facility] [address] [place], [address] MRSA WOUND DNA BY Collected: 05/08/2018 Status: F Source: [place]IE PCR 3:40 PM [facility] REPOSITORY TYPE CODE TESTS RESULT OUT OF RANGE REFERENCE UNITS LAB L8200.1100 Negative Normal MRSA Negative RESULT LAB L8200.1150 Negative Normal SA RESULT NEGATIVE Performed By: #### L8200.1075 #### [facility] [address] [place], [address] VENOUS DUPLEX LOWER Observed: 05/08/2018 Status: F Source: [place] EXTREMITY 2:42 PM [facility] REPOSITORY [facility] Cardiovascular Services [address] [facility] [place] [address] Venous Duplex US, Unilateral 05/07/18 0833 MR#: [id number] Acct: [id number] Name: ROSALIE HORNE Rep #: [id number] : 1975 42 From: Beto Syed MD Attending Dr: Jerry Madrigal DO Status: ADM IN Ordering Dr: Cuca Mast Date: 05/06/18 Location: [facility] Sex: F C Admitted: 05/06/18 Reason For [...] preliminary report was called and/or faxed to [facility]. Interpretation Summary What was visualized of the [...] Date Dictated: 05/07/1833 Date Transcribed: 05/08/18 144 Publicity Writer: Signed ABDOMEN/PELVIS WITH Observed: 05/08/2018 Status: F Source: [place] CONTRAST 1:12 PM [facility] REPOSITORY [facility] Imaging Services [address] [facility] [place] [address] Abdomen/Pelvis WITH Contrast MR#: [id number] Acct: [id number] Name: ROSALIE HORNE Rep #: [id number] : 1975 F 42 From: Bry Yoon MD PCP: Franco Jacques DO Status: ADM IN Study: Abdomen/Pelvis WITH Contrast Date of Exam: 05/08/18 Exam# [id number] Ordering Dr: Yrn Hendricks MD STUDY: CT [...] CC: Yrn Hendricks MD; Franco Jacques DO Publicity Writer: Signed BASIC METABOLIC Collected: 05/08/2018 Status: F Source: [place]IE PROFILE (BMP) 6:18 AM [facility] REPOSITORY TYPE CODE TESTS RESULT OUT OF [...] GAP 9 Performed By: #### L500.2500 #### [facility] [address] [facility] [place], [address] VANCOMYCIN, TROUGH Collected: 05/07/2018 Status: F Source: [place] LEVEL 9:53 PM [facility] REPOSITORY Order Comment: Time Medication is to [...] (Ventilator/Healtcare Associated) -Sepsis PLEASE CONTACT PHARMACY SERVICES (#[id number]) FOR INTERPRETATION OF RESULTS. Performed By: #### L501.8820 #### [facility] [address] [place], [address] BEDSIDE GLUCOSE Collected: 05/07/2018 Status: F Source: [place] 11:38 AM [facility] REPOSITORY TYPE CODE TESTS RESULT OUT OF RANGE REFERENCE UNITS LAB L501.080 70-110 mg/dL Normal BEDSIDE GLU 93 Result Comment: MANAGEMENT OF PATIENT CARE PER NURSING PROTOCOL Performed By: #### L501.080 #### [facility] Point of Care [address] [place], [place] [address] BEDSIDE GLUCOSE Collected: 05/07/2018 Status: F Source: [place] 6:39 AM [facility] REPOSITORY TYPE CODE TESTS RESULT OUT OF RANGE REFERENCE UNITS LAB L501.080 70-110 mg/dL Normal BEDSIDE GLU 102 Result Comment: MANAGEMENT OF PATIENT CARE PER NURSING PROTOCOL Performed By: #### L501.080 #### [facility] [place] [address] CBC W/DIFF, AUTOMATED Collected: 05/07/2018 Status: F Source: [place] 5:36 AM [facility] REPOSITORY TYPE CODE TESTS RESULT OUT OF [...] Lymph 1.73 Performed By: #### L100.0100 #### [facility] [address] [facility] [place], [address] BASIC METABOLIC Collected: 05/07/2018 Status: F Source: [place] PROFILE (BMP) 5:36 AM [facility] REPOSITORY TYPE CODE TESTS RESULT OUT OF [...] GAP 10 Performed By: #### L500.2500 #### [facility] [address] [place], [address] BEDSIDE GLUCOSE Collected: 05/06/2018 Status: F Source: [place]IE 9:49 PM [facility] REPOSITORY TYPE CODE TESTS RESULT OUT OF RANGE REFERENCE UNITS LAB L501.080 70-110 mg/dL Normal BEDSIDE GLU 81 Result Comment: MANAGEMENT OF PATIENT CARE PER NURSING PROTOCOL Performed By: #### L501.080 #### [facility] Point of Care [address] [facility] [place] [address] LACTIC ACID Collected: 05/06/2018 Status: F Source: [place] 9:23 PM [facility] REPOSITORY TYPE CODE TESTS RESULT OUT OF RANGE REFERENCE UNITS LAB L503.6005 0.4-2.0 mmol/L Normal LACTIC ACID 1.1 Performed By: #### L503.6005 #### [facility] [address] [place], [address] HISTORY AND PHYSICAL Observed: 05/06/2018 Status: F Source: [place] EXAM 8:17 PM [facility] REPOSITORY [facility] Medical Records Department [address] [place] [address] History and Physical 05/06/181945 MR#: [id number] Acct: [id number] Name: ROSALIE HORNE Rep #: [id number] : 1975 42 From: Cuca Mast PCP: Franco Jacques DO Status: ADM IN Location: [address] Problem List (1) Panniculitis Status: Acute (2) [...] Allergic Rhinitis, Hypothyroidism who presents to the [facility] ED on 05/06/18 with history of prolonged difficulties w/ abdominal wall/pannicular cellulitis most recently treated inpatient 2 months prior at [facility] with improvement; however, worsened again recently after [...] 3, cholecystectomy, tonsillectomy. Psychiatric History: Anxiety, Depression GLOBAL MARKETING OPERATIONS MANAGER History: No pertinent GLOBAL MARKETING OPERATIONS MANAGER history Lives: With Family - Patient lives [...] Allergic Rhinitis, Hypothyroidism who presents to the [facility] ED on 05/06/18 with history of prolonged difficulties w/ abdominal wall/pannicular cellulitis most recently treated inpatient 2 months prior at [facility] with improvement; however, worsened again recently w/ [...] habitus. Code Visit Inpatient E AND M: 88790 Init Hosp L3 05/06/18 2017 <Electronically signed by Cuca Mast > Date Cuca Mast Cosigner Signature: Date (if applicable) CC: Cuca Mast; Franco Jacques DO Signed EMERGENCY DEPARTMENT Observed: 05/06/2018 Status: F Source: [place] SUMMARY 7:49 PM [facility] REPOSITORY [facility] Medical Records Department [address] [place] [address] Emergency Department Summary 05/06/18 1533 MR#: [id number] Acct: [id number] Name: ROSALIE HORNE Rep #: [id number] : 1975 42 From: Mercedes Bear MD [...] wall cellulitis This note was generated with [employer] dictation software. It may contain incorrect words, spelling, and punctuation that were not noted in review of the chart prior to signing ED Disposition - Plan for ED Patient: Chief Complaint: Wound Referrals: Franco Bardales, DO [Primary Care Provider] - What to do if you have Problems For any increased pain, shortness of breath, bleeding, nausea or vomiting, chest pain, or any unexpected problems, contact your Primary Care Provider. Call [facility] ([phone]) or report to the closest Emergency Room. Call 911 if necessary. 05/06/181948 <Electronically signed by Mercedes Bear MD> Date Mercedes Bear MD Cosigner Signature (If Indicated): Date CC: Franco Jacques DO Observed: 05/06/2018 Status: F Source: [place]IE CULTURE, BLOOD (WB) 5:00 PM [facility] REPOSITORY BC No growth in 5 days. Performed By: #### M200.1000 #### [facility] [address] [place], [address] CBC W/DIFF, AUTOMATED Collected: 05/06/2018 Status: F Source: MEL[place]IE 4:50 PM [facility] REPOSITORY TYPE CODE TESTS RESULT OUT OF [...] Lymph 2.75 Performed By: #### L100.0100 #### [facility] [address] [place], [place], [address] BASIC METABOLIC Collected: 05/06/2018 Status: F Source: [place] PROFILE (BMP) 4:50 PM [facility] REPOSITORY TYPE CODE TESTS RESULT OUT OF [...] GAP 5 Performed By: #### L500.2500 #### [facility] [address] [place], [place], [address] LACTIC ACID Collected: 05/06/2018 Status: F Source: [place] 4:50 PM [facility] REPOSITORY Order Comment: Yes/No query for Sepsis Lactate Rule Y TYPE CODE TESTS RESULT OUT OF REFERENCE UNITS RANGE LAB L503.6005 0.4-2.0 mmol/L High LACTIC ACID 2.2 Result Comment: Critical Result(s) Called at: 17:50:38 05/06/2018 by: Daina Almonte to onnors Performed By: #### L503.6005 #### [facility] [address] [place], [address] MAGNESIUM Collected: 05/06/2018 Status: F Source: [place]IE 4:50 PM [facility] REPOSITORY TYPE CODE TESTS RESULT OUT OF RANGE REFERENCE UNITS LAB L501.5200 1.6-2.6 mg/dL Normal MG 2.0 Performed By: #### L501.5200 #### [facility] [address] [place], [address] HEMOGLOBIN A1C Collected: 05/06/2018 Status: F Source: [place]IE 4:50 PM [facility] REPOSITORY TYPE CODE TESTS RESULT OUT OF RANGE REFERENCE UNITS LAB L501.9985 4.2-6.3 % Normal HGB A1C 5.7 Performed By: #### L501.9985 #### [facility] [address] [place], [address] Observed: 05/06/2018 Status: F Source: [place]EL[place]IE CULTURE, BLOOD (WB) 4:50 PM [facility] REPOSITORY BC No growth in 5 days. Performed By: #### M200.1000 #### [facility] [address] [place], [address] CHEST 1 VIEW Observed: 05/06/2018 Status: F Source: [place]EL[place]IE (PORTABLE) 3:32 PM [facility] REPOSITORY [facility] Imaging Services [address] [place] [address] Chest 1 View (Portable) MR#: [id number] Acct: [id number] Name: ROSALIE HORNE Rep #: [id number] : 1975 F 42 From: Karthik Smart MD PCP: Franco Jacques DO Status: REG ER Study: Chest 1 View (Portable) Date of Exam: 05/06/18 Exam# [id number] Ordering Dr: Mercedes Bear MD STUDY: X-RAY [...] CC: Mercedes Bear MD; Franco Jacques DO Publicity Writer: Signed PROGRESS Observed: 05/06/2018 Status: COMPLETED Source: [place] 2:22 PM [facility] [place] REPOSITORY HNO ID: [id number] Author: Trisha Marie (Shade Hanger) Brittany Service: (none) Author Type: Nurse Practitioner [...] - verbalizes understanding and will go to [facility] ER. VASILIY Interiano Observed: 05/06/2018 Status: COMPLETED Source: [place] 2:00 PM [facility] REPOSITORY Office Visit (FAMPWS) ROSALIE HORNE ([id number]) 1975 F Date Time Provider Department 05/06/18 2:00 PM TRISHA REDDING (ALYCIA) FAMPWS During your visit today, we recorded the following information about you: Pulse Respiration Blood pressure Weight 104/minute 18/minute 118/82 217.7 kg Trisha Redding APRN.CNP 05/06/2018 3:02 PM Signed HPI/CC: Rosalie Herrerause is a 42 year old female who [...] - verbalizes understanding and will go to [facility] ER. Trisha Redding APRN.MONKEY BREEDER Referring Provider: TRISHA REDDING (MONKEY BREEDER) [[id number]] Allergies As of Date: 05/06/2018 Noted Allergy [...] skin [L03.90] Order(s):Transparent Dressings (TEGADERM ABSORBENT) 4 8 X 5 bndgApply 1 application to affected [...] 05/06/18 PROGRESS Observed: 03/31/2018 Status: COMPLETED Source: [place] 2:25 PM [facility] [place] REPOSITORY [facility] ID: [id number] Author: Trisha Marie (Alycia) Brittany Service: (none) [...] weeks or before if healed Trisha Redding APRN.ALYCIA CNOV Observed: 03/31/2018 Status: COMPLETED Source: [place] 2:20 PM [facility] REPOSITORY Office Visit (FAMPWS) ROSALIE HORNE ([id number]) 1975 F Date Time Provider Department 03/31/18 [...] weeks or before if healed Trisha Redding APRN.ALYCIA Referring Provider: SELF [200] Allergies As of [...] DOWNTIME REPORT Observed: 03/24/2018 Status: F Source: [place] 2:02 PM [facility] REPOSITORY [facility] Medical Records Department [address] [place] [address] Downtime Report MR#: [id number] Acct: [id number] Name: ROSALIE HORNE Rep #: [id number] : 1975 42 From: Steven Stanford MD PCP: Franco Jacques DO Status: DEP This patient was seen during an EMR downtime March 08, 2018 - March 15, 2018. This patient may have a combination of paper and electronic documentation or all paper documentation. All documentation is viewable within the e-chart portion of [email or web address] for each patient visit. CNOV Observed: 03/17/2018 Status: COMPLETED Source: [place] 1:20 PM [facility] REPOSITORY Office Visit (FAMPWS) ROSALIE HORNE ([id number]) 1975 F Date Time Provider Department 03/17/18 1:20 PM TRISHA REDDING (ALYCIA) TRACEYPWS During your visit today, we recorded the following information about you: Pulse Respiration Blood pressure Weight 76/minute 18/minute 118/84 218.2 kg Trisha Redding APRN.CNP 03/17/2018 1:54 PM Signed HPI/CC: Rosalie Horne is a 42 year old female who presents for hospital f/u d/t abdominal panis cellulitis. Cellulitis is a chronic recurrent problem. Admitted from 03/08/2018 to 2017 to [facility]. Was treated with IV antibiotics and sent [...] X 9 - SKIN BARRIER WIPES BOX ID 50 Trisha [place] APRN.CNP Referring Provider: SELF [200] Allergies As of [...] 30 EachRfl: 1 SKIN BARRIER WIPES BOX ID 50 [[id number]] Order #: [id number] Prescriptions as of 03/17/2018 Sig: LANCETS Test [...] 03/17/18 PROGRESS Observed: 03/17/2018 Status: COMPLETED Source: [facility] 1:15 PM [facility] REPOSITORY HNO ID: [id number] Author: Trisha Marie (Alycia) Brittany Service: (none) Author Type: Nurse Practitioner Type: Progress Notes Filed: 03/17/2018 1:54 PM Note Text: HPI/CC: Rosalie Horne is a 42 year old female who presents for hospital f/u d/t abdominal panis cellulitis. Cellulitis is a chronic recurrent problem. Admitted from 03/08/2018 to 2017 to [facility]. Was treated with IV antibiotics and sent [...] X 9 - SKIN BARRIER WIPES BOX ID 50 Trisha [place] APRN.[facility] Observed: 03/12/2018 Status: COMPLETED Source: [facility] 4:11 PM [facility] [place] REPOSITORY HNO ID: [id number] Author: Barb Reed Office Coord Service: (none) Author Type: (none) Type: Allied Health Filed: 03/12/2018 4:12 PM Note Text: STAFF TOXICOLOGIST NOTE SERVICE DATE: 03/12/2018 SERVICE TIME: 4:11 PM Home Care consult ordered by Sanjay Alarcon DO SIGNATURE: Barb Reed Office Coord PATIENT NAME: Rosalie Horne DATE: March 12, 2018 TIME: 4:11 PM [facility] Observed: 03/12/2018 Status: COMPLETED Source: [facility] 3:41 PM [facility] [place] REPOSITORY HNO ID: [id number] Author: Dina VickRn) JENIFER Thomas Service: Home Care Services Author Type: Registered Nurse Type: Allied Health Filed: 03/12/2018 3:49 PM Note Text: STAFF TOXICOLOGIST NOTE SERVICE DATE: 03/12/2018 SERVICE TIME: 3:42 PM Discharge: Aware of Discharge home today Physician order placed for Home Care Services Home Care Agency: [facility] Start of care date: Patient/Family agree to discharge plan: SIGNATURE: Dina Thomas RN PATIENT NAME: Rosalie Horne DATE: March 12, 2018 TIME: 3:41 PM CNDS Observed: 03/12/2018 Status: COMPLETED Source: [facility] 3:10 PM [facility]IN[facility] OTHER CAMPUS REPOSITORY O ID: [id number] Author: Sanjay Alarcon Service: Hospital Medicine Author [...] Height: General: AANDOx3, NAD, Cooperative CV: RRR, [id number], no murmurs Resp: CTA b/l, no wheeze [...] 12, 2018 TIME: 3:10 PM PAGER/CONTACT #: Maegan [facility] Observed: 03/12/2018 Status: COMPLETED Source: [facility] 2:29 PM [facility] OTHER CAMPUS REPOSITORY [facility] ID: [id number] Author: Dina Adame) JENIFER Granados Service: Home Care Services Author Type: Registered Nurse Type: Allied Health Filed: 03/12/2018 2:30 PM Note Text: STAFF TOXICOLOGIST NOTE SERVICE DATE: 03/12/2018 SERVICE TIME: 2:29 PM Patient Choice: Spoke with patient at bedside. Discussed home health care services. Patient given a choice - chose [facility] or first available. Discussed homebound requirements with pt. SIGNATURE: Dina Granados RN PATIENT NAME: Rosalie Horne DATE: March 12, 2018 TIME: 2:29 PM PROGRESS Observed: 03/12/2018 Status: COMPLETED Source: [facility] 11:52 AM CLINIC OTHER CAMPUS REPOSITORY HNO ID: [id number] Author: Candido Benjamin III Service: Infectious Disease [...] on discharge instructions please have her call [phone] the week of 03/22 so she and I can discuss. 3) Needs to lose weight Ok for discharge from my standpoint. Will sign off SIGNATURE: Candido Benjamin III, MD PATIENT NAME: Rosalie Horne DATE: March 12, 2018 TIME: 11:57 AM PAGER/CONTACT #: [phone] CASE MANAGEM Observed: 03/12/2018 Status: COMPLETED Source: [facility] 10:55 AM CLINIC OTHER CAMPUS REPOSITORY HNO ID: [id number] Author: Cathy (Rn) JENIFER Crouch Service: Care Management Author Type: Registered Nurse Type: Care Mgt Progress Note Filed: 03/12/2018 10:56 AM Note Text: CARE MANAGEMENT PROGRESS NOTE SERVICE DATE: 03/12/2018 SERVICE TIME: 1055 LOS: 4 days Needs Prior to Discharge: Home Care Order Discharge plan remains return to home when medically stable. [facility] following for SN at discharge to assist with wound care/teaching; patient reports daughter is able to assist/learn. Per ID-awaiting final wound cultures to determine discharge antibiotics; Dr Benjamin states he anticipates oral antibiotic needed. No new discharge needs noted at this time. SIGNATURE: Cathy Crouch RN PATIENT NAME: Rosalie Horne DATE: March 12, 2018 TIME: 10:55 AM PAGER/CONTACT #: [phone] GLUCOSE METER Collected: 03/12/2018 Status: F Source: [facility] 6:58 AM HEALTH SYSTEM REPOSITORY TYPE CODE TESTS RESULT OUT OF REFERENCE UNITS RANGE LAB GLUBL(LOINC 70-99 mg/dL ) Glucose Meter 97 Result Comment: RN NOTIFIED Performed By: #### GLMET #### [place] [address] HEMOGRAM Collected: 03/12/2018 Status: F Source: [facility] 4:20 AM HEALTH SYSTEM REPOSITORY TYPE [...] MPV 10.3 Performed By: #### CBC1 #### [facility] [address] [place] [address] BASIC PANEL Collected: 03/12/2018 Status: F Source: [facility] 4:20 AM HEALTH SYSTEM REPOSITORY TYPE [...] Gap 8 Performed By: #### P8 #### [place] [address] MDRD GFR Collected: 03/12/2018 Status: F Source: [facility] 4:20 AM HEALTH SYSTEM REPOSITORY TYPE CODE TESTS RESULT OUT OF RANGE REFERENCE UNITS LAB GFRFN(LOINC >60mL/min/1.73m ) 2 eGFR 57.91 Result Comment: If the patient is , multiply the result by 1.210. Performed By: #### GFR #### [facility] [address] [place], [place] [address] GLUCOSE METER Collected: 03/11/2018 Status: F Source: [facility] 9:55 PM HEALTH SYSTEM REPOSITORY TYPE CODE TESTS RESULT OUT OF REFERENCE UNITS RANGE LAB GLUBL(LOINC 70-99 mg/dL ) High Glucose Meter 111 Result Comment: RN NOTIFIED Performed By: #### GLMET #### [place] [id number] NURSING PROG Observed: 03/11/2018 Status: COMPLETED Source: [facility] 1:29 PM [facility] REPOSITORY HNO ID: [id number] Author: Rosibel Adame) JENIFER Feliciano Service: Nursing Author Type: Registered Nurse Type: Nursing Progress Note Filed: 03/11/2018 1:32 PM Note Text: Nursing Progress Note Patient Name: Rosalie Horne Patient Location: [place] [id number] Event(s) / Intervention Note: The patient was [...] RN PROGRESS Observed: 03/11/2018 Status: COMPLETED Source: [facility] 11:41 AM [facility] REPOSITORY HNO ID: [id number] Author: Aj You MD Service: Hospital Medicine [...] #: PROGRESS Observed: 03/11/2018 Status: COMPLETED Source: [facility] 10:22 AM CLINIC OTHER CAMPUS REPOSITORY HNO ID: [id number] Author: Candido Benjamin III Service: Infectious Disease [...] 11, 2018 TIME: 10:48 AM PAGER/CONTACT #: [phone] NUTRITION Observed: 03/11/2018 Status: COMPLETED Source: [facility] 9:34 AM CLINIC OTHER CAMPUS REPOSITORY HNO ID: [id number] Author: Kendra Warren RD Service: Nutrition Therapy [...] 14g protein per packet Coordination of Care: JENIFER Gleason Monitor and Evaluation: Goal: Meet >75% of estimated needs Monitor fluid/electrolyte balance Monitor labs, I/Os, vital signs, weight Discharge Nutrition Recommendations: Diet: heart healthy, 1800 kcal maximum daily calories Reason for Assessment: Consult for Weight Loss Per HPI: This is a 42 year old female presenting from [facility] for a possible incarcerated hernia and [...] AND 2007 - CHOLECYSTECTOMY - EGD W/O [facility] SPECIMEN W/BX 04/11/13 mild gastritis - MIDLINE CATHETER 01/31/2016 - TONSILLECTOMY HX Met with patient who reports small PO intake [employer]. She reports having a Boost High Protein [...] kg (420 lb) Adjusted Body Weight: 93.9 [place] Body Weight: 47.7 kgkg Resting Metabolic Rate: 2921 Estimated kilocalorie needs: 1880 - 2350 kilocalories determined by 20-25 kcal/kg Adjusted Body Weight - used ABW due to risk of underfeeding. Estimated protein needs: 62-81 grams determined by 1.3-1.7 g/kg [place] weight Estimated fluid needs: 1880+ milliliters based [...] March 11, 2018 TIME: 9:34 AM PAGER: [phone] CASE MANAGEM Observed: 03/11/2018 Status: COMPLETED Source: [facility] 8:55 AM [facility]INIC OTHER CAMPUS REPOSITORY HNO ID: [id number] Author: Cathy (Rn) JENIFER Crouch Service: Care Management Author Type: Registered Nurse Type: Care Mgt Progress Note Filed: 03/11/2018 8:56 AM Note Text: CARE MANAGEMENT PROGRESS NOTE SERVICE DATE: 03/11/2018 SERVICE TIME: 854 LOS: 3 days Needs Prior to Discharge: Home Care Order Chart reviewed. Per ID notes, awaiting wound cultures to determine discharge antibiotic needs. Discharge plan remains return to home when medically stable. [facility] following for SN at discharge to assist with wound care/teaching; patient reports daughter is able to assist/learn. No new discharge needs noted at this time. SIGNATURE: Cathy Crouch RN PATIENT NAME: Rosalie Horne DATE: March 11, 2018 TIME: 8:55 AM PAGER/CONTACT #: [phone] GLUCOSE METER Collected: 03/11/2018 Status: F Source: [facility] 7:15 AM HEALTH SYSTEM REPOSITORY TYPE CODE TESTS RESULT OUT OF REFERENCE UNITS RANGE LAB GLUBL(LOINC 70-99 mg/dL ) Glucose Meter 84 Result Comment: RN NOTIFIED Performed By: #### GLMET #### [place] [address] COMPREHENSIVE PANEL Collected: 03/11/2018 Status: F Source: [facility] 5:20 AM HEALTH SYSTEM REPOSITORY TYPE CODE [...] Gap 8 Performed By: #### P14 #### [facility] [address] [place] [address] MDRD GFR Collected: 03/11/2018 Status: F Source: [facility] 5:20 AM HEALTH SYSTEM REPOSITORY TYPE CODE TESTS RESULT OUT OF RANGE REFERENCE UNITS LAB GFRFN(LOINC >60mL/min/1.73m ) 2 eGFR 56.04 Result Comment: If the patient is , multiply the result by 1.210. Performed By: #### GFR #### [facility] [address] [place] [address] HEMOGRAM/DIFF Collected: 03/11/2018 Status: F Source: [facility] 3:20 AM HEALTH SYSTEM REPOSITORY TYPE CODE [...] 2.84 LAB MONON(LOIN 0.27-0.70 thou/cmm C) Abs. [place] 0.68 LAB EOSN(LOINC 0.00-0.31 thou/cmm ) Abs. High Eosin 0.41 LAB BASON(LOIN 0.01-0.08 thou/cmm C) Abs. Baso 0.06 Performed By: #### CBCD1 #### [place] [address] GLUCOSE METER Collected: 03/10/2018 Status: F Source: [facility] 9:08 PM HEALTH SYSTEM REPOSITORY TYPE CODE TESTS RESULT OUT OF REFERENCE UNITS RANGE LAB GLUBL(LOINC 70-99 mg/dL ) Glucose Meter 99 Result Comment: RN NOTIFIED Performed By: #### GLMET #### [place] [address] ALLIED HEALTH Observed: 03/10/2018 Status: COMPLETED Source: [facility] 3:21 PM [facility] OTHER CAMPUS REPOSITORY HNO ID: [id number] Author: Barb Reed Office Coord Service: (none) Author Type: (none) Type: Allied Health Filed: 03/10/2018 3:21 PM Note Text: STAFF TOXICOLOGIST NOTE SERVICE DATE: 03/10/2018 SERVICE TIME: 3:21 PM Referral: Home Care referral received by: CM Will continue to follow for physician orders SIGNATURE: Barb Reed Office Coord PATIENT NAME: Rosalie Horne DATE: March 10, 2018 TIME: 3:21 PM CASE MANAGEM Observed: 03/10/2018 Status: COMPLETED Source: [facility] 2:26 PM CLINIC OTHER CAMPUS REPOSITORY HNO ID: [id number] Author: Cathy (Rn) JENIFER Crouch Service: Care Management Author Type: Registered Nurse Type: Care Mgt Progress Note Filed: 03/10/2018 2:30 PM Note Text: CARE MANAGEMENT PROGRESS NOTE SERVICE DATE: 03/10/2018 SERVICE TIME: 1425 LOS: 2 days Needs Prior to Discharge: Home Care Order Met with patient at bedside--patient requesting [facility] SN for wound care/instructions at discharge, states daughter is available to learn/assist; current dressing changes and wound care are new for patient. [facility] Coordinator notified to follow. SIGNATURE: Cathy Crouch RN PATIENT NAME: Rosalie Horne DATE: March 10, 2018 TIME: 2:26 PM PAGER/CONTACT #: [phone] PROGRESS Observed: 03/10/2018 Status: COMPLETED Source: [facility] 1:45 PM [facility] REPOSITORY HNO ID: [id number] Author: Candido Benjamin III Service: Infectious Disease [...] March 10, 2018 TIME: 1:45 PM PAGER: [phone] PROGRESS Observed: 03/10/2018 Status: COMPLETED Source: [facility] 12:47 PM CLINIC OTHER CAMPUS REPOSITORY HNO ID: [id number] Author: Aj You MD Service: Hospital Medicine [...] GLUCOSE METER Collected: 03/10/2018 Status: F Source: [facility] 7:06 AM HEALTH SYSTEM REPOSITORY TYPE CODE TESTS RESULT OUT OF REFERENCE UNITS RANGE LAB GLUBL(LOINC 70-99 mg/dL ) Glucose Meter 92 Result Comment: RN NOTIFIED Performed By: #### GLMET #### [facility] [address] [place], [place] [address] GLUCOSE METER Collected: 03/09/2018 Status: F Source: [facility] 9:41 PM HEALTH SYSTEM REPOSITORY TYPE CODE TESTS RESULT OUT OF REFERENCE UNITS RANGE LAB GLUBL(LOINC 70-99 mg/dL ) High Glucose Meter 100 Result Comment: RN NOTIFIED Performed By: #### GLMET #### [facility] [address] [place], [place] [address] CASE MGT INIT Observed: 03/09/2018 Status: COMPLETED Source: [facility] 2:52 PM CLINIC OTHER CAMPUS REPOSITORY HNO ID: [id number] Author: Cathy (Rn) JENIFER Crouch Service: Care Management Author Type: Registered Nurse Type: Care Mgt Initial Assessment Filed: 03/09/2018 3:07 PM Note Text: CARE MANAGEMENT: ASSESSMENT AND DISCHARGE PLAN SERVICE DATE: 03/09/2018 SERVICE TIME: 1425 PRIMARY CARE PHYSICIAN: Franco Bardales DO ADMISSION STATUS: Inpatient Needs Prior to Discharge: None 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 Health Insurance: [facility] MEDICA[facility] Health Issues Impacting Discharge Plan: umbilial [...] Walker Has the Patient Been in a Jail Facility in the Past 30 days? No SOCIAL: Living Arrangement: Home Lives With: Spouse and kids Financial Resources: Unemployed Primary Contact: Extended Emergency Contact Information Primary Emergency Contact: Ana Benton Relation: Mother Supportive: Yes Other Important Patient [...] 0 I feel financially burdened by my [id number] expenses for my prescription medication: Disagree somewhat [...] 09, 2018 TIME: 2:53 PM PAGER/CONTACT #: [phone] PROGRESS Observed: 03/09/2018 Status: COMPLETED Source: [facility] 1:29 PM [facility]IN[facility] OTHER CAMPUS REPOSITORY HNO ID: [id number] Author: Aj You MD Service: Hospital Medicine [...] PAGER/CONTACT #: Observed: 03/09/2018 Status: F Source: [facility] 12:30 PM HEALTH SYSTEM AND AER REPOSITORY Test performed at [facility] Few Mixed skin landon. No further identification to follow. Plates will be held for 5 days. Few Mixed anaerobic landon. No further identification to follow. Plates will be held for 5 days. Few WBC No organisms seen ORGANISM: Escherichia coli (ID: 1) Rare Performed By: #### C_ANA #### [facility] [address] [place] [address] CONSULT Observed: 03/09/2018 Status: COMPLETED Source: [facility] 12:04 PM CLINIC OTHER CAMPUS REPOSITORY HNO ID: [id number] Author: Candido Benjamin III Service: Infectious Disease [...] daily. 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 [place] 0.27 - 0.70 thou/cmm 0.63 0.56 Abs. [...] 11 HCG Qualitative, Urine Negative Negative Specific [place], Ur 1.005 - 1.030 1.012 Lactic Acid [...] March 09, 2018 TIME: 12:04 PM PAGER: [phone] CONSULT PROG Observed: 03/09/2018 Status: COMPLETED Source: [facility] 10:12 AM [facility] OTHER CAMPUS REPOSITORY O ID: [id number] Author: Gely Olson Service: Wound Care Team Author Type: Nurse [...] found in scanned documents. SIGNATURE: HAMMAD Yo, ANNEMARIE PATIENT NAME: Rosalie Horne DATE: March 09, 2018 TIME: 10:12 AM CONTACT#: [id number] CASE MANAGEM Observed: 03/09/2018 Status: COMPLETED Source: [facility] 7:38 AM [facility] REPOSITORY HNO ID: [id number] Author: Cathy Adaem) JENIFER Crouch Service: Care Management Author Type: Registered [...] 09, 2018 TIME: 7:38 AM PAGER/CONTACT #: [phone] GLUCOSE METER Collected: 03/09/2018 Status: F Source: [facility] 6:54 AM HEALTH SYSTEM REPOSITORY TYPE CODE TESTS RESULT OUT OF REFERENCE UNITS RANGE LAB GLUBL(LOINC 70-99 mg/dL ) Glucose Meter 93 Result Comment: RN NOTIFIED Performed By: #### GLMET #### [place] [address] PROGRESS Observed: 03/09/2018 Status: COMPLETED Source: [facility] 6:15 AM [facility] REPOSITORY HNO ID: [id number] Author: Diana Hyman Service: General Surgery Author [...] resident's note and agree. Cole Calle MD, FACS, [facility] Emergency General Surgery Service Pager: For questions or concerns Mon-Fri 6a-5p please page [phone]. After 5pm and on Weekends and Holidays, please page [phone] if in ICU or [phone] if on RNF. General Surgery Progress Note [...] 03/08/18699 - 03/09/1865803/09/18699 - 03/10/18 0659 Shift 5095-5009 7791-0113 4920-5589 24 Hour Total 0163-3842 6066-5257 5715-8705 24 Hour Total I N T A K E PO 360 360 PO 360 360 IV 4717 891 0104 NS 0.9% 1000 1000 Vancomycin IV 200 200 Cefazolin IV 100 100 Shift Total 3428 605 6442 O U T P U T Urine 162 111 5245 Void (ml) 171 316 3352 Shift Total 264 565 5852 Weight (kg) 233.1 232.4 232.4 232.4 232.4 [...] Pager: HEMOGRAM Collected: 03/09/2018 Status: F Source: [facility] 3:04 AM HEALTH SYSTEM REPOSITORY TYPE CODE [...] MPV 10.4 Performed By: #### CBC1 #### [place] [address] BASIC PANEL Collected: 03/09/2018 Status: F Source: [facility] 3:04 AM HEALTH SYSTEM REPOSITORY TYPE CODE [...] Gap 11 Performed By: #### P8 #### [place] [address] MDRD GFR Collected: 03/09/2018 Status: F Source: [facility] 3:04 AM HEALTH SYSTEM REPOSITORY TYPE CODE TESTS RESULT OUT OF RANGE REFERENCE UNITS LAB GFRFN(LOINC >60mL/min/1.73m ) 2 eGFR >60 Result Comment: If the patient is , multiply the result by 1.210. Performed By: #### GFR #### [place] [address] GLUCOSE METER Collected: 03/08/2018 Status: F Source: [facility] 9:33 PM HEALTH SYSTEM REPOSITORY TYPE CODE TESTS RESULT OUT OF REFERENCE UNITS RANGE LAB GLUBL(LOINC 70-99 mg/dL ) Glucose Meter 89 Result Comment: RN NOTIFIED Performed By: #### GLMET #### [place] [address] HEMOGRAM/DIFF Collected: 03/08/2018 Status: F Source: [facility] 8:40 PM HEALTH SYSTEM REPOSITORY TYPE CODE [...] 2.98 LAB MONON(LOIN 0.27-0.70 thou/cmm C) Abs. [place] 0.56 LAB EOSN(LOINC 0.00-0.31 thou/cmm ) Abs. Eosin 0.24 LAB BASON(LOIN 0.01-0.08 thou/cmm C) Abs. Baso 0.03 Performed By: #### CBCD1 #### [address] [address] BASIC PANEL Collected: 03/08/2018 Status: F Source: [facility] 8:40 PM HEALTH SYSTEM REPOSITORY TYPE CODE [...] Gap 9 Performed By: #### P8 #### [facility] [address] [place] [address] MDRD GFR Collected: 03/08/2018 Status: F Source: [facility] 8:40 PM HEALTH SYSTEM REPOSITORY TYPE CODE TESTS RESULT OUT OF RANGE REFERENCE UNITS LAB GFRFN(LOINC >60mL/min/1.73m ) 2 eGFR >60 Result Comment: If the patient is , multiply the result by 1.210. Performed By: #### GFR #### [facility] [address] [place] [address] GLUCOSE METER Collected: 03/08/2018 Status: F Source: [facility] 7:50 PM HEALTH SYSTEM REPOSITORY TYPE CODE TESTS RESULT OUT OF REFERENCE UNITS RANGE LAB GLUBL(LOINC 70-99 mg/dL ) Glucose Meter 81 Result Comment: RN NOTIFIED Performed By: #### GLMET #### [place] [address] CONSULT Observed: 03/08/2018 Status: COMPLETED Source: [facility] 4:42 PM CLIN[facility] OTHER CAMPUS REPOSITORY HNO ID: [id number] Author: Yvonne Zendejas Service: General Surgery Author Type: Resident Type: Consults Filed: 03/08/2018 5:16 PM Note Text: Attestation signed by Cole Calle at 03/08/2018 5:31 PM Hernia defect 4 cm and is reduced. 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 Will follow. I saw and evaluated the patient. I reviewed the resident's note and agree. Cole Calle MD, [facility], [facility] CONSULT: EGS SERVICE SERVICE DATE: 03/08/2018 SERVICE TIME: 4:43 PM REASON FOR CONSULT: Umbilical hernia REQUESTING PHYSICIAN: ED PRIMARY CARE PHYSICIAN: DO Nereyda Mckeon Ms. Horne is a 42 year old [...] her weight. Was initially worked up at [facility] where she had a CT showing [...] please page [phone] if in ICU or [phone] if on RNF. SIGNATURE: Yvonne Zendejas MD PATIENT NAME: Rosalie Horne DATE: March 08, 2018 TIME: 4:42 PM PAGER: [phone] PLAN OF CARE Observed: 03/08/2018 Status: COMPLETED Source: [facility] 3:42 PM [facility] OTHER CAMPUS REPOSITORY O ID: [id number] Author: Dwight Baires (Cleaning Porter) Service: (none) Author Type: Motor Builder Winder Type: Plan of Care Filed: 03/08/2018 3:45 PM Note Text: MEDICATION HISTORY Patient Name:Felton Horne : 1975 Source of history:Patient: Reliability of source: Appears reliable, clearly identified: Medication name, Medication dose, Medication route and Medication frequency and Pharmacy records: [facility] [phone] Medication Nonadherence Identified: Cost The above information [...] Upset - Penicillins GI Upset Preferred Pharmacy: [facility] [phone] Current [employer] Medications: Prior to Admission medications as of [...] ARTHRITIS 650 MG TAB) prn Dwight Baires (Cleaning Porter) WK pager [phone] March 08, 2018 3:42 PM ED NOTE Observed: 03/08/2018 Status: COMPLETED Source: [facility] 3:25 PM [facility] REPOSITORY HNO ID: [id number] Author: Betsy VickRn) JENIFER Alfaro Service: Emergency Medicine Author Type: Registered Nurse Type: ED Notes Filed: 03/08/2018 3:25 PM Note Text: Pt ambulated to restroom with assist. ED NOTE Observed: 03/08/2018 Status: COMPLETED Source: [facility] 3:25 PM [facility] REPOSITORY HNO ID: [id number] Author: Betsy VickRn) JENIFER Alfaro Service: Emergency Medicine Author Type: Registered Nurse Type: ED Notes Filed: 03/08/2018 3:26 PM Note Text: Patient returned to the Emergency Department. URINE HCG, QUAL. Collected: 03/08/2018 Status: F Source: [facility] 1:50 PM HEALTH SYSTEM REPOSITORY TYPE CODE TESTS RESULT OUT OF REFERENCE UNITS RANGE LAB URHCG(LOIN Negative C) HCG, Qual. Negative Urine LAB SPGR(LOINC 1.005-1.030 ) Specific 1.012 [place], Ur Performed By: #### HCGUR #### [place] [address] ED NOTE Observed: 03/08/2018 Status: COMPLETED Source: [facility] 1:49 PM CLINIC OTHER CAMPUS REPOSITORY HNO ID: [id number] Author: Angela (Rn) JENIFER Kimble Service: Emergency Medicine Author Type: Registered Nurse Type: ED Notes Filed: 03/08/2018 1:49 PM Note Text: Clean catch urine specimen obtained and sent. HISTORY PHYSICAL Observed: 03/08/2018 Status: COMPLETED Source: [facility] 12:42 PM [facility] OTHER CAMPUS REPOSITORY HNO ID: [id number] Author: Aj You MD Service: Hospital Medicine [...] abdominal wound infection, she was sent from [place] for possible incarcerated hernia. Per patient she went to [place] earlier today for 1 hour of severe [...] ED NOTE Observed: 03/08/2018 Status: COMPLETED Source: [facility] 12:21 PM [facility] REPOSITORY HNO ID: [id number] Author: Betsy VickRn) JENIFER Alfaro Service: Emergency Medicine Author Type: Registered Nurse Type: ED Notes Filed: 03/08/2018 12:22 PM Note Text: Pt upset as the doctor told her they are going to prescribe ATBs and not perform surgery. Pt upset and tearful; emotional support given. ED NOTE Observed: 03/08/2018 Status: COMPLETED Source: [facility] 11:22 AM [facility] REPOSITORY HNO ID: [id number] Author: Betsy VickRn) JENIFER Alfaro Service: Emergency Medicine Author Type: Registered Nurse Type: ED Notes Filed: 03/08/2018 11:23 AM Note Text: Surgery resident at bedside; ok to cancel visual acuity test. ED NOTE Observed: 03/08/2018 Status: COMPLETED Source: [facility] 10:55 AM [facility] REPOSITORY HNO ID: [id number] Author: Betsy VickRn) JENIFER Alfaro Service: Emergency Medicine Author Type: Registered Nurse Type: ED Notes Filed: 03/08/2018 11:10 AM Note Text: Informed Dr Franco and Joey that pt's weight is 514lbs which is over the weight limit for our CT scanners. HEMOGRAM/DIFF Collected: 03/08/2018 Status: F Source: [facility] 9:45 AM HEALTH SYSTEM REPOSITORY TYPE CODE [...] 2.25 LAB MONON(LOIN 0.27-0.70 thou/cmm C) Abs. [place] 0.63 LAB EOSN(LOINC 0.00-0.31 thou/cmm ) Abs. Eosin 0.29 LAB BASON(LOIN 0.01-0.08 thou/cmm C) Abs. Baso 0.04 Result Comment: Smear scanned; tech agrees with automated differential Performed By: #### CBCD1 #### [place] [address] LACTIC ACID Collected: 03/08/2018 Status: F Source: [facility] 9:45 AM HEALTH SYSTEM REPOSITORY TYPE CODE TESTS RESULT OUT OF REFERENCE UNITS RANGE LAB LAC(LOINC) 0.4-2.0 mEq/L Lactic Acid 1.4 Performed By: #### LAC #### [place] [address] ED PROV NOTE Observed: 03/08/2018 Status: COMPLETED Source: [facility] 9:13 AM CLINIC OTHER CAMPUS REPOSITORY HNO ID: [id number] Author: Jerry Franco MD Service: Emergency Medicine [...] Abdominal Pain: Pt is a transfer from [place] with a ? incarcerated hernia. 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 Per patient she went to [place] earlier today for 1 hour of severe [...] History provided by: Patient and medical records cnc technician used: No PAST MEDICAL HISTORY Diagnosis Date [...] Yes Partners: Male control/ protection: Vasectomy Comment: alesse ALLERGIES Allergen Reactions - Asa [Aspirin] Other: [...] asthma, migraines, HTN - CC sent from [place] for possible incarcerated hernia. Per patient she went to [place] earlier today for 1 hour of severe [...] Could not obtain CT on CD from [place] despite multiple calls as their system is down. Could not obtain CT here as pt is 514 lbs, max is 500. Surgery resident and attending at [facility], able to reduce hernia. They recommend admission for IV Abx for cellulitis, but no further surgical intervention. Our Labs: CBC - leukocytosis 14.72, Hgb 10.9 MCV 93.5, ANC 11.42 Lactic- 1.4 Outside hospital labs: Lactic 1.4 CMP - BUN 10, Creat 1.03, remainder grossly unremarkable Pt has PCP but Medicaid, therefore House paged. Capped. Spoke with AJ Amaya of [facility] who agrees to admission. Will start Vanc [...] resident. 42-year-old female was a transfer from [facility] for surgical evaluation of an incarcerated wall [...] ED NOTE Observed: 03/08/2018 Status: COMPLETED Source: [facility] 8:36 AM CLINIC OTHER CAMPUS REPOSITORY HNO ID: [id number] Author: Drew (Medic) Ania Mas Service: (none) Author Type: Mine Environmental Engineer and Motor Builder Winder Type: ED Notes Filed: 03/08/2018 8:36 AM Note Text: Bed: ED-32 Expected date: 03/08/18 Expected time: 8:18 AM Means of arrival: [facility] Comments: [facility] transfer CBC W/DIFF, AUTOMATED Collected: 03/08/2018 Status: F Source: [place] 2:25 AM [facility] REPOSITORY TYPE CODE TESTS RESULT OUT OF [...] Lymph 2.30 Performed By: #### L100.0100 #### [facility] [address] [place], [address] BASIC METABOLIC Collected: 03/08/2018 Status: F Source: [place] PROFILE (BMP) 2:25 AM [facility] REPOSITORY TYPE CODE TESTS RESULT OUT OF [...] Performed By: #### L500.2500, L500.3400, L501.2450 #### [facility] [address] [place], [place], [id number] LIVER PROFILE Collected: 03/08/2018 Status: F Source: [place] 2:25 AM [facility] REPOSITORY TYPE CODE TESTS RESULT OUT OF [...] Performed By: #### L500.2500, L500.3400, L501.2450 #### [facility] [address] [facility] [place], [place], [id number] LIPASE Collected: 03/08/2018 Status: F Source: [place] 2:25 AM [facility] REPOSITORY TYPE CODE TESTS RESULT OUT OF RANGE REFERENCE UNITS LAB L501.2450 73-393 U/L Normal LIPASE 168 Performed By: #### L500.2500, L500.3400, L501.2450 #### [facility] [address] [place], [place], [address] PROTHROMBIN TIME W/INR Collected: 03/08/2018 Status: F Source: [place] 2:25 AM [facility] REPOSITORY TYPE CODE TESTS RESULT OUT OF RANGE REFERENCE UNITS LAB L300.4150 11.7-14.9 SECONDS Normal PROTIME 12.6 LAB L300.4200 Normal INR 0.9 Performed By: #### L300.3900 #### [facility] [address] [place], [address] TYPE AND SCREEN Collected: 03/08/2018 Status: F Source: [place] 2:25 AM [facility] REPOSITORY Order Comment: RESULT(S) PREVIOUSLY REPORTED ON MANUAL REQUISITION DURING DOWNTIME. Reason for Type AND Screen/Red Cells: SURGERY TYPE CODE TESTS RESULT OUT OF RANGE REFERENCE UNITS LAB B10.0800 A Normal BLOOD TYPE GEL POSITIVE LAB B100.4000 Normal Antibody NEGATIVE Screen Performed By: #### B101.7450 #### [facility] [address] [place], [address] LACTIC ACID Collected: 03/08/2018 Status: F Source: [place] 2:25 AM [facility] REPOSITORY Order Comment: Yes/No query for Sepsis Lactate Rule Y TYPE CODE TESTS RESULT OUT OF RANGE REFERENCE UNITS LAB L503.6005 0.4-2.0 mmol/L Normal LACTIC ACID 1.4 Performed By: #### L503.6005 #### [facility] [address] [place], [address] ABDOMEN/PELVIS WITHOUT Observed: 03/08/2018 Status: F Source: [place] CONT 12:56 AM [facility] REPOSITORY [facility] Imaging Services [address] [place] [address] Abdomen/Pelvis without Cont MR#: [id number] Acct: [id number] Name: ROSALIE HORNE Tara Rep #: [id number] : 1975 F 42 From: Marisol Harris MD PCP: Franco Jacques DO Status: REG ER Study: Abdomen/Pelvis without Cont Date of Exam: 03/08/18 Exam# [id number] Ordering Dr: Xiomara Bynum DO STUDY: CT [...] tissue is not imaged. There is poor jihyxz-nn-vmlzv ratio limiting the examination. The anterior abdominal [...] anterior peritoneal are not included in the squbu-pb-tfby. Portion of a left anterior inferior abdominal wall hernia with an opening of 4.5 cm containing small bowel is imaged. No overt colonic or small bowel obstruction, ascites or pneumoperitoneum on submitted images. Hepatomegaly and hepatic steatosis. Cholecystectomy. Nonobstructing left inferior renal pole calculus. Electronically Signed: Marisol Steven, MD at 2:52 EDT , Service support , CC: Franco Jacques DO; Xiomara Bynum DO Publicity Writer: Signed CNCO Observed: 02/15/2018 Status: COMPLETED Source: [facility] 2:41 PM [facility] REPOSITORY HNO ID: [id number] Author: Mammography Coordinator Service: (none) Author Type: Physician Type: Letter Filed: 02/16/2018 11:32 PM Note Text: February 15, 2018 PID: [id number] Rosalie Lazara Coleen [address] [place] [address] Dear Ms. Horne, We are pleased to [...] report will be kept on file at [facility] as part of your permanent medical record and are available for your continuing care. Thank you for allowing us to help in meeting your health care needs. Sincerely, Dr. Carmona Interpreting Radiologist [facility] (Normal over 40) [facility] SCREENING Observed: 02/15/2018 Status: F Source: [facility] 1:29 PM [facility] [place] REPOSITORY * * *Final Report* * * DATE OF EXAM: Feb 15 2018 1:29PM [facility] 0581 - [facility] SCREENING / PROCEDURE REASON: Encounter for screening mammogram for malignant neoplasm of breast * * * * Physician Interpretation * * * * RESULT: #[id number] - [facility] SCREENING BILATERAL DIGITAL SCREENING MAMMOGRAM WITH CAD: 02/15/2018 HISTORY: Encounter For Screening Mammogram For Malignant Neoplasm Of Breast. RESULT: TECHNIQUE: The study was acquired using full field digital technology and interpreted from soft copy. Current study was also evaluated with a Computer Aided Detection (CAD). Comparison is made to exams dated: 08/11/2016 mammogram, 08/29/2015 mammogram, and 04/20/2013 mammogram - [facility]. The tissue of both breasts is predominantly fatty. No significant masses, calcifications, or other findings are seen in either breast. There has been no significant interval change. IMPRESSION: NEGATIVE There is no mammographic evidence of malignancy. A 1 year screening mammogram is recommended. Liliane Carmona M.D., jr/cheng:02/15/2018 14:41:49 Utility Spray Operator: Osiris JIMÉNEZ)(Rojas), [facility] letter sent: Normal over 40 Mammogram BI-RADS: 1 Negative Publicity Writer: Cheng Transcribe Date/Time: Feb 15 2018 1:03P Dictated by: LILIANE CARMONA MD This examination was interpreted and the report reviewed and electronically signed by: LILIANE CARMONA MD on Feb 15 2018 2:41PM EST [id number] CBC AND DIFFERENTIAL Collected: 12/16/2017 Status: F Source: [facility] 2:40 PM CLINIC MAIN CAMPUS REPOSITORY TYPE CODE TESTS RESULT [...] k/uL Abs Lymph 3.59 LAB AMONO % [place]% 5.2 LAB AAMONO <0.87 k/uL Abs [place] 0.55 LAB AEOS % Eosin% 2.5 LAB AAEOS <0.46 k/uL Abs Eosin 0.27 LAB ABASO % Baso% 1.0 LAB AABASO <0.11 k/uL Abs Baso High 0.11 LAB AUNRBC 0 /100 WBC NRBCs 0.0 LAB ABNRBC <0.01 k/uL Absolute nRBC <0.01 LAB DTYP DTYPE Auto Diff Performed By: #### CBCDIF, CMP, TSH, FT4, T3 #### [facility] [address] [place], [place] [address] COMP METABOLIC PANEL Collected: 12/16/2017 Status: F Source: [facility] 2:40 PM [facility] REPOSITORY TYPE CODE TESTS RESULT OUT OF REFERENCE UNITS RANGE LAB TP 6.3-8.0 g/dL Protein, High Total 8.3 LAB ALB 3.9-4.9 g/dL Albumin 4.9 LAB CA 8.5-10.2 mg/dL Calcium, Total 9.5 LAB TBIL 0.2-1.3 mg/dL Bilirubin, Total 0.3 LAB ALKP 32-117 U/L Alkaline Phosphatase 39 LAB AST 13-35 U/L AST 22 LAB GLU 74-99 mg/dL Glucose 80 Result Comment: The [place] Diabetes Association (ADA) provides guidance for cutoff [...] Standards of Medical Care in Diabetes 2016, [place] Diabetes Association. Diabetes Care. 2016.39(Suppl 1). LAB [...] #### CBCDIF, CMP, TSH, FT4, T3 #### [facility] [address] [place], [place] [address] TSH Collected: 12/16/2017 Status: F Source: [facility] 2:40 PM [facility] REPOSITORY TYPE CODE TESTS RESULT OUT OF RANGE REFERENCE UNITS LAB TSH 0.400-5.500 uU/mL High TSH 97.250 Result Comment: If the patient is , TSH reference range varies by gestational period: First Trimester 0.100-2.500 uU/mL Second Trimester 0.200-3.000 uU/mL Third Trimester 0.300-3.000 uU/mL References: 1. De John L, Jami M, Elfego EK, et al. Management of Thyroid Dysfunction during and : An Endocrine Society Clinical Practice Guideline. J Clin Endocrinol Metab, 2012:97:6125-5173. 2. Carlos RODNEY. Overview of thyroid disease in . UpToDate. 2016. Accessed on March 21, 2016. Performed By: #### CBCDIF, CMP, TSH, FT4, T3 #### [facility] [address] [place], [place] [address] FREE T4 Collected: 12/16/2017 Status: F Source: [facility] 2:40 PM [facility] REPOSITORY TYPE CODE TESTS RESULT OUT OF RANGE REFERENCE UNITS LAB FT4 0.9-1.7 ng/dL Low Free T4 <0.1 Result Comment: Result rechecked. Performed By: #### CBCDIF, CMP, TSH, FT4, T3 #### [facility] [address] [place], [place] [address] T3 Collected: 12/16/2017 Status: F Source: [facility] 2:40 PM [facility] REPOSITORY TYPE CODE TESTS RESULT OUT OF RANGE REFERENCE UNITS LAB T3 79-165 ng/dL Low T3 <20 Result Comment: Result rechecked. Performed By: #### CBCDIF, CMP, TSH, FT4, T3 #### [facility] [address] [place], [place] [address] CNOV Observed: 12/16/2017 Status: COMPLETED Source: [facility] 2:00 PM [facility] REPOSITORY Office Visit (FAMPWS) COLEENROSALIE Tara ([id number]) 1975 F Date Time Provider Department 12/16/17 2:00 PM TRISHA REDDING (ALYCIA) FAMPWS During your visit today, we recorded the following information about you: Pulse Respiration Blood pressure Weight 72/minute 16/minute 124/78 226.8 kg Last Period 12/02/17 Trisha Redding CNP, [facility] 12/16/2017 3:25 PM Signed HPI/CC:Rosalie Horne is [...] discussed when to go to ER Trisha Redding, ALYCIA Referring Provider: FRANCO BARDALES [[id number]] Allergies As of Date: 12/16/2017 Noted Allergy [...] [E03.9] Order(s):CBC + DIFF [SQCBCDIF] Order #: [id number] FUTURE cephALEXin (KEFLEX) 500 mg capsuleTake 1 capsule by mouth four times daily for 14 days.Disp: 56 capsuleRfl: 0 sulfamethoxazole-trimethoprim (BACTRIM DS,SEPTRA DS) 800-160 mg per tabletTake 1 tablet by mouth twice daily for 14 days.Disp: 28 tabletRfl: 0 CONSULT TO GENERAL SURGERY [9011] Order #: [id number]: 1 TSH BLD [SQTSH] Order #: [id number] FUTURE T3 BLD [SQT3] Order #: [id number] FUTURE T4 FREE/FREE THYROX [SQFT4] Order #: [id number] FUTURE COMP METABOLIC PANEL [SQCMP] Order #: [id number] FUTURE Prescriptions as of 12/16/2017 Sig: PROTEIN [...] 12/16/17 PROGRESS Observed: 12/16/2017 Status: COMPLETED Source: [facility] 1:55 PM [facility] REPOSITORY HNO ID: [id number] Author: Trisha Marie (Alycia) ALYCIA Redding Service: (none) Author Type: Nurse [...] CNP PROGRESS Observed: 11/30/2017 Status: COMPLETED Source: [facility] 2:26 PM [facility] [place] REPOSITORY O ID: [id number] Author: Franco Bardales Service: (none) Author Type: Physician Type: Progress Notes Filed: 11/30/2017 2:32 PM Note Text: CC: Rosalie Horne is a 42 year old female who presents to the office for abdominal wound HPI: 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 No fevers [...] AND 2007 - CHOLECYSTECTOMY - EGD W/O [facility] SPECIMEN W/BX 04/11/13 mild gastritis - MIDLINE [...] plan. See patient instructions. Franco Bardales DO [address] [place] [address] EMERGENCY DEPARTMENT Observed: 11/21/2017 Status: F Source: [place] SUMMARY 2:13 PM [facility] REPOSITORY [facility] Medical Records Department [address] [place] [address] Emergency Department Summary 11/21/17 1408 MR#: [id number] Acct: [id number] Name: ROSALIE HORNE Rep #: [id number] : 1975 42 From: Perry May MD [...] respiratory infection This note was generated with [employer] dictation software. It may contain incorrect words, spelling, and punctuation that were not noted in review of the chart prior to signing ED Disposition - Plan for ED Patient: Disposition: Home or Assisted Living Chief Complaint: Wound Instructions: ED Burn Wound Check No Infec, ED URI Viral Referrals: Franco Bardales, [Primary Care Provider] - 3-5 Days What to do if you have Problems For any increased pain, shortness of breath, bleeding, nausea or vomiting, chest pain, or any unexpected problems, contact your Primary Care Provider. Call [facility] ([phone]) or report to the closest Emergency Room. Call 911 if necessary. 11/21/17 1413 <Electronically signed by Perry May MD> Date Perry May MD Cosigner Signature (If Indicated): Date CC: Franco Bardales DO ALLERGIES ALLERGIES DATE TYPE / NAME / CODE REACTION SEVERITY SOURCE CODE 09/17/2018 Drug diphenhydramine Hives Unknown [place] Allergy/41 HCl/[id number](RXNORM [facility] [id number]) Repository 09/17/2018 Drug Penicillins/[id number] Nausea Unknown [place] Allergy/41 6(RXNORM) [facility] 4655661([facility]) Repository 09/17/2018 Drug codeine/N480524436(RX Other Unknown [place] Allergy/41 NORM) [facility] 7654531([facility]) Repository 09/17/2018 Drug aspirin/V822653653(RX Upset Stomach Unknown [place] Allergy/41 NORM) Community 6720170([facility] OMED [facility]) Repository 09/17/2018 Drug ibuprofen/Z923154529( Upset Stomach Unknown [place] Allergy/41 RXNORM) Community 8886856([facility] OMED CT) Repository 09/17/2018 Drug metronidazole/F383258 Rash Unknown [place] Allergy/41 958(RXNORM) [facility] 2291680([facility] OMED CT) Repository 09/17/2018 Drug venom-honey Anaphylaxis Unknown [place] Allergy/41 bee/I098045026(RXNORM Community 6213331([facility] OMED CT) Repository 03/08/2018 DRUG METRONIDAZOLE HCL OTHER: [facility] 0981731([facility] OMED [facility]) Repository 05/10/2015 Drug PENICILLINS GI UPSET [place] Class/4195 Clinic Main 29542([facility] [place] [facility]) Repository 01/20/2012 DRUG ASPIRIN OTHER: [facility] 7495234( [place] OMED [facility]) Repository 07/21/2005 Environ/42 BEES SWELLING [place] 0374898( Clinic Main OMED CT) [place] Repository 07/21/2005 DRUG DIPHENHYDRAMINE HCL HIVES [facility] 2229005([facility] OMED CT) Repository 07/21/2005 DRUG CODEINE Mental Chg [facility] 3179891([facility] OMED CT) Repository 07/21/2005 DRUG IBUPROFEN GI UPSET [facility]/41 Clinic Main 5376059( [place] OMED [facility]) Repository NG/3051451 ASPIRIN [facility]) Repository NG/7803649 BEES [facility] 06([facility]) Repository NG/3783988 DIPHENHYDRAMINE HCL [facility] 06([facility]) Repository NG/9332941 CODEINE [facility] 06([facility]) Repository NG/7270620 METRONIDAZOLE HCL [facility] 06([employer] [employer]) Repository NG/8893652 IBUPROFEN [facility] 06([facility]) Repository NG/4601101 PENICILLINS [facility] 06([facility] [employer]) Repository ENCOUNTERS ENCOUNTERS ADMIT/DISCHARGE ACCOUNT NUMBER ADMITTING ENCOUNTER LOCATION SOURCE CLASS 10/25/2018 [id number] Ambulatory General acute hospital ding: Repository 10/12/2018 [id number] [facility] [place] [facility] 10/12/2018 [id number] Ambulatory General acute hospital ding: Repository 09/21/2018 [id number] Ambulatory BMSBuilding: [place] BMS.[facility] Repository 09/21/2018 [id number] Ambulatory BMSBuilding: [place] BMS.[facility] Repository 09/21/2018 [id number] Ambulatory BMSBuilding: [place] BMS.Counts include 234 beds at the [facility] Repository 09/21/2018 [id number] Yrn Hendricks Ambulatory BMSBuilding: [place] BMS.[facility] Repository 09/21/2018 [id number] Yrn Hendricks Ambulatory BMSBuilding: [place] BMS.[facility] Repository 09/21/2018 [id number] Yrn Hendricks Ambulatory BMSBuilding: [place] BMS.[facility] Repository 09/21/2018 [id number] Yrn eHndricks Ambulatory BMSBuilding: [place] BMS.[facility] Repository 09/21/2018 [id number] Yrn Hendricsk Ambulatory BMSBuilding: [place] BMS.[facility] Repository 09/21/2018 [id number] Yrn Hendricks Ambulatory BMSBuilding: [place] BMS.[facility] Repository 09/21/2018 [id number] Yrn Hendricks Ambulatory BMSBuilding: [place] BMS.[facility] Repository 09/21/2018 [id number] Yrn Hendricks Ambulatory BMSBuilding: [place] BMS.[facility] Repository 09/21/2018 [id number] Yrn Hendricks Ambulatory BMSBuilding: [place] [facility]MS.[facility] Repository 09/21/2018 [id number] Yrn Hendricks Ambulatory BMSBuilding: [place] BMS.[facility] Repository 09/21/2018 [id number] Yrn Hendricks Ambulatory BMSBuilding: [place] BMS.[facility] Repository 09/21/2018 [id number] Yrn Hendricks Ambulatory [facility]MSBuilding[facility] [place] [facility] 09/21/2018 [id number] Ambulatory BMSBuilding: [place] [facility] Repository 09/21/2018/09/26/20 [id number] Ambulatory BMSBuilding: [place] [facility] Repository 09/21/2018/09/26/20 [id number] Yrn Hendricks Inpatient [place] 18 Encounter [facility] ding:[id number] Repository : [id number]: 1 09/06/2018 [id number] Ambulatory BMSBuilding: [place] BMS.[facility] Repository 09/06/2018/10/04/20 [id number] Ambulatory [place] [address] ding: Repository 08/23/2018 [id number] Ambulatory BMSBuilding: [place] BMS.[facility] Repository 08/23/2018/09/03/20 [id number] Ambulatory [place] [address] ding: Repository 08/16/2018 [id number] Ambulatory BMSBuilding: [place] BMS..[facility] Repository 08/02/2018 [id number] Ambulatory BMSBuilding: [place] BMS.[facility] Repository 08/02/2018/08/04/20 [id number] Ambulatory [address] ding:WC Repository 06/29/2018/06/29/20 [id number] Emergency [place] [address] ding:ED Repository 05/06/2018/05/21/20 [id number] White, Cuca Inpatient [place] 18 Encounter [facility] ding:[id number] Repository : [id number]: 1 05/06/2018 [id number] White, Cuca Ambulatory BMSBuilding: [place] BMS.[facility] Repository 05/06/2018 [id number] White, Cuca Ambulatory BMSBuilding: [place] [facility]MS.[facility] Repository 05/06/2018 [id number] White, Cuca Ambulatory BMSBuilding: [place] [facility]MS.[facility] Repository 05/06/2018 [id number] White, Cuca Ambulatory BMSBuilding: [place] [facility]MS.[facility] Repository 05/06/2018 [id number] White, Cuca Ambulatory BMSBuilding: [place] BMS..Counts include 234 beds at the [facility] Repository 05/06/2018 [id number] White, Cuca Ambulatory BMSBuilding: [place] BMS..Counts include 234 beds at the [facility] Repository 05/06/2018 [id number] White, Cuca Ambulatory BMSBuilding: [place] BMS.[facility] Repository 05/06/2018 [id number] White, Cuca Ambulatory BMSBuilding: [place] BMS..[facility] Repository 05/06/2018 [id number] White, Cuca Ambulatory BMSBuilding: [place] BMS..Counts include 234 beds at the [facility] Repository 05/06/2018 [id number] White, Cuca Ambulatory BMSBuilding: [place] BMS.[facility] Repository 05/06/2018 [id number] White, Cuca Ambulatory BMSBuilding: [place] BMS.[facility] Repository 05/06/2018 [id number] White, Cuca Ambulatory BMSBuilding: [place] BMS..[facility] Repository 05/06/2018 [id number] White, Cuca Ambulatory BMSBuilding: [place] BMS.[facility] Repository 05/06/2018 [id number] White, Cuca Ambulatory BMSBuilding: [place] [facility]MS.[facility] Repository 05/06/2018 [id number] White, Cuca Ambulatory BMSBuilding: [place] BMS..[facility] Repository 05/06/2018 [id number] White, Cuca Ambulatory BMSBuilding: [place] BMS.[facility] Repository 05/06/2018 [id number] White, Cuca Ambulatory BMSBuilding: [place] [facility] Repository 05/06/2018 [id number] White, Cuca Ambulatory [facility]Building[facility] [place] [facility] 05/06/2018 [id number] White, Cuca Ambulatory BMSBuilding: [place] BMS.[facility] Repository 05/06/2018 [id number] White, Cuca Ambulatory BMSBuilding: [place] [facility] Repository 05/06/2018 [id number] White, Cuca Ambulatory BMSBuilding: [place] [facility] Repository 05/06/2018 [id number] , Ambulatory BMSBuilding: [place] BMS.[facility] Repository 05/06/2018 [id number] , Ambulatory BMSBuilding: [place] BMS.[facility] Repository 05/06/2018/05/21/20 [id number] Ambulatory BMSBuilding: [place] [facility] Repository 05/06/2018/05/07/20 [id number] Ambulatory [address] Repository 03/31/2018/04/01/20 [id number] Ambulatory [address] Repository 03/17/2018/03/18/20 [id number] Ambulatory [address] Repository 03/08/2018/03/12/20 [id number] RIGLEN [facility], Inpatient [address] Repository 03/08/2018/03/12/20 [id number] [facility], Inpatient [address] MEDICAL Repository DESTREHANBuildi nARoom: 5207Bed: 03/08/2018/03/08/20 [id number] Emergency [place] ding:ED Repository 02/15/2018/02/16/20 [id number] Ambulatory [address] Repository 12/16/2017/12/17/19 [id number] Ambulatory [address] Repository 12/16/2017/12/18/19 [id number] Ambulatory [address] Repository 11/30/2017/12/05/19 [id number] Ambulatory [address] Repository 11/21/2017/11/21/19 [id number] Emergency [place] ding:ED Repository PAYERS PAYERS ENCOUNTER GUARANTOR PAYER SUBSCRIBER SOURCE 10/25/2018 ROSALIE Pacheco Primary ROSALIE GEE O BOX Insurance:CARESOURCEP STROUSEDOB: [address] Number: [id number] Hospital 67651Bqt: (081) [id number] Repository [phone] () Date:2018-07-16 [address]ATTN: [place] [address]ZI: 10/25/2018 Secondary NOT GIVENUNK [place] Insurance:SELF PAY [facility] Number: Effective Repository Date:2018-10-05 10/12/2018 ROSALIE E Primary ROSALIE E [place] STR[address] BOX Insurance:CARESOURCEP STROUSEDOB: [facility] [place] Number: [id number] Hospital 49812Aqc: 330 [id number] Repository [phone] () Date:2018-10-12 [address]ATTN: [place] [address]FT: 10/12/2018 Secondary NOT GIVENUNK Melanie Insurance:SELF PAY [facility] Number: Effective Repository Date:2018-10-12 10/12/2018 ROSALIE E Primary NOT GIVENUNK [place] [address]OX Insurance:SELF PAY [address] [address]Lrb: 330) Number: Effective Repository [phone] () Date:2018-10-06 09/21/2018 ROSALIE E Primary ROSALIE E [place] STROUSEP O BOX Insurance:CARESOURCEP STROUSEDOB: [place] Number: [id number] Hospital 11795Wym: 330 [id number] Repository [phone] () Date:2018-09-07 [address]ATTN: [place] [address]QB: 09/21/2018 Secondary NOT GIVENUNK [place] Insurance:SELF PAY [facility] Number: Effective Repository Date:2018-09-21 09/21/2018 ROSALIE E Primary ROSALIE E [place] STROUSEP O BOX Insurance:CARESOURCEP [place]OUSEDOB: [place] Number: [id number] Hospital 64907Tot: 330 [id number] Repository [phone] () Date:2018-09-07P [address]ATTN: [place] [address]IW: 09/21/2018 Secondary NOT GIVENUNK [place] Insurance:SELF PAY [facility] Number: Effective Repository Date:2018-09-21 09/21/2018 ROSALIE E Primary ROSALIE E [place] [address] Insurance:CARESOURCEP STROUSEDOB: [place] Number: [id number] Hospital 86254Dqp: (111) [id number] Repository [phone] () Date:2018-09-[address]ATTN: [place] [address]QN: 09/21/2018 Secondary NOT GIVENUNK [place] Insurance:SELF PAY [facility] Number: Effective Repository Date:2018-09-21 09/21/2018 ROSALIE E Primary ROSALIE E [place] [address] Insurance:CARESOURCEP STROUSEDOB: [place] Number: [id number] Hospital 10530Epe: ([phone]) [id number] Repository [phone] () Date:2018-09-07 [address]ATTN: [place] [address]BL: 09/21/2018 Secondary NOT GIVENUNK [place] Insurance:SELF PAY [facility] Number: Effective Repository Date:2018-09-21 09/21/2018 ROSALIE E Primary ROSALIE E [place] [address] Insurance:CARESOURCEP STROUSEDOB: [place] Number: [id number] Hospital 24107Bex: ([phone]) [id number] Repository [phone] () Date:2018-09-07 [address]ATTN: [place] [address]LD: 09/21/2018 Secondary NOT GIVENUNK [place] Insurance:SELF PAY [facility] Number: Effective Repository Date:2018-09-20 09/21/2018 ROSALIE E Primary ROSALIE E [place] [address] Insurance:CARESOURCEP STROUSEDOB: [place] Number: [id number] Hospital 20087Enb: ([phone]) [id number] Repository [phone] () Date:2018-09-07 [address]ATTN: [place] [address]YO: 09/21/2018 Secondary NOT GIVENUNK [place] Insurance:SELF PAY [facility] Number: Effective Repository Date:2018-09-21 09/21/2018 ROSALIE E Primary ROSALIE E [place] [address] Insurance:CARESOURCEP STROUSEDOB: [place] Number: [id number] Hospital 33497Tsh: ([phone]) [id number] Repository [phone] () Date:2018-09-07 [address]ATTN: [place] [address]QQ: 09/21/2018 Secondary NOT GIVENUNK [place] Insurance:SELF PAY [facility] Number: Effective Repository Date:2018-09-21 09/21/2018 ROSALIE E Primary ROSALIE E [place] [address] Insurance:CARESOURCEP STROUSEDOB: [place] Number: [id number] Hospital 49584Bhd: 330 [id number] Repository [phone] () Date:2018-09-07 [address]ATTN: [place] [address]XJ: 09/21/2018 Secondary NOT GIVENUNK [place] Insurance:SELF PAY [facility] Number: Effective Repository Date:2018-09-21 09/21/2018 ROSALIE E Primary ROSALIE E [place] [address] Insurance:CARESOURCEP STROUSEDOB: [place] Number: [id number] Hospital 44224Zjj: (863) [id number] Repository [phone] () Date:2018-09-07 [address]ATTN: [place] [address]YC: 09/21/2018 Secondary NOT GIVENUNK [place] Insurance:SELF PAY [facility] Number: Effective Repository Date:2018-09-21 09/21/2018 ROSALIE E Primary ROSALIE E [place] [address] Insurance:CARESOURCEP STROUSEDOB: [place] Number: [id number] Hospital 69826Jtu: (358) [id number] Repository [phone] () Date:2018-09-07 [address]N: [place] [address]WQ: 09/21/2018 Secondary NOT GIVENUNK [place] Insurance:SELF PAY [facility] Number: Effective Repository Date:2018-09-21 09/21/2018 ROSALIE E Primary ROSALIE E [place] STR[address]P [address]OX Insurance:CARESOURCEP STROUSEDOB: [place] Number: [id number] Hospital 37976Hqu: ([phone]) [id number] Repository [phone] () Date:2018-09-07 [address]N: [place] [address]HU: 09/21/2018 Secondary NOT GIVENUNK [place] Insurance:SELF PAY [facility] Number: Effective Repository Date:2018-09-21 09/21/2018 ROSALIE E Primary ROSALIE E [place] [address] Insurance:CARESOURCEP STROUSEDOB: [place] Number: [id number] Hospital 80671Axe: ([phone]) [id number] Repository [phone] () Date:2018-09-07 [address]ATTN: [place] [address]HF: 09/21/2018 Secondary NOT GIVENUNK [place] Insurance:SELF PAY [facility] Number: Effective Repository Date:2018-09-21 09/21/2018 ROSALIE E Primary ROSALIE E [place] [address]OX Insurance:CARESOURCEP STROUSEDOB: [place] Number: [id number] Hospital 68036Tjb: ([phone]) [id number] Repository [phone] () Date:2018-09-07 [address]ATTN: [place] [address]UB: 09/21/2018 Secondary NOT GIVENUNK [place] Insurance:SELF PAY [facility] Number: Effective Repository Date:2018-09-21 09/21/2018 ROSALIE E Primary ROSALIE E [place] [address] Insurance:CARESOURCEP STROUSEDOB: [place] [address] Number: [id number] Hospital 17948Rlm: ([phone]) [id number] Repository [phone] () Date:2018-09-07 [address]ATTN: [place] [address]RP: 09/21/2018 Secondary NOT GIVENUNK [place] Insurance:SELF PAY [facility] Number: Effective Repository Date:2018-09-21 09/21/2018 ROSALIE E Primary ROSALIE E [place] [address] Insurance:CARESOURCEP STROUSEDOB: [place] [address] Number: [id number] Hospital 15482Bll: 330 [id number] Repository [phone] () Date:2018-09-07 [address]ATTN: [place] [address]VX: 09/21/2018 Secondary NOT GIVENUNK [place] Insurance:SELF PAY [facility] Number: Effective Repository Date:2018-09-21 09/21/2018 ROSALIE E Primary ROSALIE E [place] [address] Insurance:CARESOURCEP STR[place]OB: [place] [address] Number: [id number] Hospital 67590Abi: (242) [id number] Repository [phone] () Date:2018-09-07 [address]ATTN: [facility] [facility] [address]QS: 09/21/2018 Secondary NOT GIVENUNK [place] Insurance:SELF PAY [facility]: Effective Repository Date:2018-09-21 09/21/2018 ROSALIE E Primary ROSALIE E [place] STR[address]OX Insurance:CARESOURCEP STR[place]EDOB: [place] [address] Number: [id number] Hospital 63947Zce: ([phone]) [id number] Repository [phone] () Date:2018-09-07 [address]ATTN: [place] [address]JB: 09/21/2018 Secondary NOT GIVENUNK [place] Insurance:SELF PAY [facility] Number: Effective Repository Date:2018-09-21 09/21/2018 ROSALIE E Primary ROSALIE E [place] [address] Insurance:CARESOURCEP [place]OB: [place] Number: [id number] Hospital 55538Ugc: ([phone]) [id number] Repository [phone] () Date:2018-09-07 [address]ATTN: [place] [address]VM: 09/21/2018 Secondary NOT GIVENUNK [place] Insurance:SELF PAY [facility] Number: Effective Repository Date:2018-09-07 09/06/2018 Yesi Grady Primary ROSALIE E [place] Str[address] Box Insurance:CARESOURCEP STROUSEDOB: [place] [address] Number: [id number] Hospital 01353Nxh: ([phone]) [id number] Repository [phone] () Date:2018-07-16 [address]ATTN: [place] [address]VB: 09/06/2018 Secondary NOT GIVENUNK [place] Insurance:SELF PAY [facility] Number: Effective Repository Date:2018-09-06 09/06/2018 Yesi N Primary ROSALIE E [place] [address] Insurance:CARESOURCEP [place]OB: [place] Number: [id number] Hospital 42009Pzw: ([phone]) [id number] Repository [phone] () Date:2018-07-16 [address]ATTN: [place] [address]VG: 09/06/2018 Secondary NOT GIVENUNK [place] Insurance:SELF PAY [facility] Number: Effective Repository Date:2018-09-04 08/23/2018 Yesi Ysabel Primary ROSALIE E [place] [address] Insurance:CARESOURCEP [place]OUSEDOB: [place] Number: [id number] Hospital 94136Mqm: (271) [id number] Repository [phone] () Date:2018-07-16 [address]ATTN: [place] [address]VP: 08/23/2018 Secondary NOT GIVENUNK [place] Insurance:SELF PAY [facility] Number: Effective Repository Date:2018-08-23 08/23/2018 Yesi Ysabel Primary ROSALIE E [place] [address] Insurance:CARESOURCEP [place]OUS[place]OB: [place]: [id number] Hospital 93161Vvr: ([phone]) [id number] Repository [phone] () Date:2018-07-16 [address]ATTN: [place] [address]TM: 08/23/2018 Secondary NOT GIVENUNK [place] Insurance:SELF PAY [facility] Number: Effective Repository Date:2018-08-05 08/16/2018 Yesi Ysabel Primary ROSALIE E [place] [address] Insurance:CARESOURCEP [place]OB: [place] Number: [id number] Hospital 82662Iah: (199) [id number] Repository [phone] () Date:2018-07-16 [address]ATTN: [place] [address]QY: 08/16/2018 Secondary NOT GIVENUNK [place] Insurance:SELF PAY [facility] Number: Effective Repository Date:2018-08-16 08/02/2018 Yesi N Primary ROSALIE E [place] [address] Insurance:CARESOURCEP STROUS[place]OB: [place] Number: [id number] Hospital 75971Zok: (498) [id number] Repository [phone] () Date:2018-07-16 [address]ATTN: [place] [address]EG: 08/02/2018 Secondary NOT GIVENUNK [place] Insurance:SELF PAY [facility] Number: Effective Repository Date:2018-08-02 08/02/2018 Yesi Grady Primary ROSALIE E [place] [address] Insurance:CARESOURCEP STR[place]OB: [place] Number: [id number] Hospital 02909Jge: ([phone]) [id number] Repository [phone] () Date:2018-07-16 [address]ATTN: [place] [address]OX: 08/02/2018 Secondary NOT GIVENUNK [place] Insurance:SELF PAY [facility] Number: Effective Repository Date:2018-07-16 06/29/2018 Yesi Grady Primary ROSALIE E [place] [address] Insurance:CARESOURCEP STROUS[place]OB: [place] Number: [id number] Hospital 92400Hyn: ([phone]) [id number] Repository [phone] () Date:2018-06-29P [address]ATTN: [place] [address]RG: 06/29/2018 Secondary NOT GIVENUNK [place] Insurance:SELF PAY [facility] Number: Effective Repository Date:2018-06-29 05/06/2018 Yesi Grady Primary ROSALIE E [place] [address] Insurance:CARESOURCEP STR[place]OB: [place] Number: [id number] Hospital 71017Sxa: ([phone]) [id number] Repository [phone] () Date:2018-05-06 [address]ATTN: [place] [address]RG: 05/06/2018 Secondary NOT GIVENUNK [place] Insurance:SELF PAY [facility] Number: Effective Repository Date:2018-05-06 05/06/2018 Yesi N Primary ROSALIE E [place] [address] Insurance:CARESOURCEP STROUSEDOB: [facility] [place] Number: [id number] Hospital 05739Qnz: ([phone]) [id number] Repository [phone] () Date:2018-05-06 [address]ATTN: [place] [address]LS: 05/06/2018 Secondary NOT GIVENUNK [place] Insurance:SELF PAY [facility] Number: Effective Repository Date:2018-05-06 05/06/2018 Yesi Grady Primary ROSALIE E [place] [address] Insurance:CARESOURCEP [place]OUS[place]OB: [place]: [id number] Hospital 90383Jex: ([phone]) [id number] Repository [phone] () Date:2018-05-06 [address]ATTN: [place] [address]WC: 05/06/2018 Secondary NOT GIVENUNK [place] Insurance:SELF PAY [facility] Number: Effective Repository Date:2018-05-06 05/06/2018 Yesi Grady Primary ROSALIE E [place] [address] Insurance:CARESOURCEP [place]OUS[place]OB: [place] Number: [id number] Hospital 07746Xlx: ([phone]) [id number] Repository [phone] () Date:2018-05-06 [address]ATTN: [place] [address]CI: 05/06/2018 Secondary NOT GIVENUNK [place] Insurance:SELF PAY [facility] Number: Effective Repository Date:2018-05-06 05/06/2018 Yesi N Primary ROSALIE E [place] [address] Insurance:CARESOURCEP STR[place]OB: [place] Number: [id number] Hospital 04295Zyn: ([phone]) [id number] Repository [phone] (HP) Date:2018-05-06 [address]ATTN: [place] [address]UT: 05/06/2018 Secondary NOT GIVENUNK [place] Insurance:SELF PAY [facility] Number: Effective Repository Date:2018-05-06 05/06/2018 Yesi Grady Primary ROSALIE E [place] [address] Insurance:CARESOURCEP STR[place]OB: [place] Number: [id number] Hospital 33419Lbm: ([phone]) [id number] Repository [phone] () Date:2018-05-06 [address]ATTN: [place] [address]DB: 05/06/2018 Secondary NOT GIVENUNK [place] Insurance:SELF PAY [facility] Number: Effective Repository Date:2018-05-06 05/06/2018 Yesi Grady Primary ROSALIE E [place] [address] Insurance:CARESOURCEP STR[place]OB: [place] Number: [id number] Hospital 02136Pzs: ([phone]) [id number] Repository [phone] () Date:2018-05-06P [address]ATTN: [place] [address]RQ: 05/06/2018 Secondary NOT GIVENUNK [place] Insurance:SELF PAY [facility] Number: Effective Repository Date:2018-05-06 05/06/2018 Yesi Grady Primary ROSALIE E [place] [address] Insurance:CARESOURCEP STROUS[place]OB: [place] Number: [id number] Hospital 87974Koc: (692) [id number] Repository [phone] () Date:2018-05-06 [address]ATTN: [place] [address]AR: 05/06/2018 Secondary NOT GIVENUNK [place] Insurance:SELF PAY [facility] Number: Effective Repository Date:2018-05-06 05/06/2018 Yesi Ysabel Primary ROSALIE E [place] [address] Insurance:CARESOURCEP [place]OB: [place]: [id number] Hospital 23152Pgt: (151) [id number] Repository [phone] () Date:2018-05-06 [address]ATTN: [place] [address]HQ: 05/06/2018 Secondary NOT GIVENUNK [place] Insurance:SELF PAY [facility] Number: Effective Repository Date:2018-05-06 05/06/2018 Yesi Grady Primary ROSALIE E [place] [address] Insurance:CARESOURCEP STR[place]OB: [place] Number: [id number] Hospital 44630Bfq: ([phone]) [id number] Repository [phone] () Date:2018-05-06 [address]ATTN: [place] [address]QU: 05/06/2018 Secondary NOT GIVENUNK [place] Insurance:SELF PAY [facility] Number: Effective Repository Date:2018-05-06 05/06/2018 Yesi N Primary ROSALIE E [place] [address] Insurance:CARESOURCEP [place]OUS[place]OB: [place]: [id number] Hospital 93073Jpj: (093) [id number] Repository [phone] () Date:2018-08-02P [address]ATTN: [place] [address]FQ: 05/06/2018 Secondary NOT GIVENUNK [place] Insurance:SELF PAY [facility] Number: Effective Repository Date:2018-05-06 05/06/2018 Yesi N Primary ROSALIE E [place] [address] Insurance:CARESOURCEP STR[place]OB: [place] Number: [id number] Hospital 37089Srd: ([phone]) [id number] Repository [phone] () Date:2018-05-06P [address]ATTN: [place] [address]EI: 05/06/2018 Secondary NOT GIVENUNK [place] Insurance:SELF PAY [facility] Number: Effective Repository Date:2018-05-06 05/06/2018 Yesi N Primary ROSALIE E [place] [address] Insurance:CARESOURCEP STR[place]OB: [place] Number: [id number] Hospital 28296Qtn: ([phone]) [id number] Repository [phone] () Date:2018-05-06P [address]ATTN: [place] [address]KC: 05/06/2018 Secondary NOT GIVENUNK [place] Insurance:SELF PAY [facility] Number: Effective Repository Date:2018-05-06 05/06/2018 Yesi Ysabel Primary ROSALIE E [place] [address] Insurance:CARESOURCEP STROUSEDOB: [place] Number: [id number] Hospital 30897Kym: (648) [id number] Repository [phone] () Date:2018-05-06P [address]ATTN: [place] [address]KP: 05/06/2018 Secondary NOT GIVENUNK [place] Insurance:SELF PAY [facility] Number: Effective Repository Date:2018-05-06 05/06/2018 Yesi N Primary ROSALIE E [place] [address] Insurance:CARESOURCEP STROUS[place]OB: [place] Number: [id number] Hospital 99776Pzv: ([phone]) [id number] Repository [phone] () Date:2018-05-06P [address]ATTN: [place] [address]HW: 05/06/2018 Secondary NOT GIVENUNK [place] Insurance:SELF PAY [facility] Number: Effective Repository Date:2018-05-06 05/06/2018 Yesi Grady Primary ROSALIE E [place] [address] Insurance:CARESOURCEP STROUSEDOB: [place] Number: [id number] Hospital 55506Afu: (448) [id number] Repository [phone] () Date:2018-05-06 [address]ATTN: [place] [address]BH: 05/06/2018 Secondary NOT GIVENUNK [place] Insurance:SELF PAY [facility] Number: Effective Repository Date:2018-05-06 05/06/2018 Yesi Grady Primary ROSALIE E [place] [address] Insurance:CARESOURCEP STROUS[place]OB: [place] Number: [id number] Hospital 75605Zwk: (264) [id number] Repository [phone] () Date:2018-05-06 [address]ATTN: [place] [address]AM: 05/06/2018 Secondary NOT GIVENUNK [place] Insurance:SELF PAY [facility] Number: Effective Repository Date:2018-05-06 05/06/2018 Yesi Grady Primary ROSALIE E [place] [address] Insurance:CARESOURCEP STROUS[place]OB: [place] Number: [id number] Hospital 91621Voz: (695) [id number] Repository [phone] () Date:2018-05-06P [address]ATTN: [place] [address]LR: 05/06/2018 Secondary NOT GIVENUNK [place] Insurance:SELF PAY [facility] Number: Effective Repository Date:2018-05-06 05/06/2018 Yesi N Primary ROSALIE E [place] [address] Insurance:CARESOURCEP STROUS[place]OB: [place] Number: [id number] Hospital 19350Fvb: (136) [id number] Repository [phone] () Date:2018-05-06P [address]ATTN: [place] [address]ZU: 05/06/2018 Secondary NOT GIVENUNK [place] Insurance:SELF PAY [facility] Number: Effective Repository Date:2018-05-06 05/06/2018 Yesi Ysabel Primary ROSALIE E [place] [address] Insurance:CARESOURCEP STR[place]OB: [place] Number: [id number] Hospital 35584Pqh: (193) [id number] Repository [phone] () Date:2018-05-06P [address]ATTN: [place] [address]YF: 05/06/2018 Secondary NOT GIVENUNK [place] Insurance:SELF PAY [facility] Number: Effective Repository Date:2018-05-06 05/06/2018 Yesi N Primary ROSALIE E [place] [address] Insurance:CARESOURCEP [place]OB: [place] Number: [id number] Hospital 44413Wqm: (687) [id number] Repository [phone] () Date:2018-05-06P [address]ATTN: [facility] [place] [address]TM: 05/06/2018 Secondary NOT GIVENUNK [place] Insurance:SELF PAY [facility] Number: Effective Repository Date:2018-05-06 05/06/2018 Yesi N Primary ROSALIE E [place] [address] Insurance:CARESOURCEP [place]OUS[place]OB: [place] Number: [id number] Hospital 53527Nfh: ([phone]) [id number] Repository [phone] () Date:2018-05-06 [address]ATTN: [place] [address]VK: 05/06/2018 Secondary NOT GIVENUNK [place] Insurance:SELF PAY [facility] Number: Effective Repository Date:2018-05-06 05/06/2018 Yesi Grady Primary ROSALIE E [place] [address] Insurance:CARESOURCEP [place]OB: [place] Number: [id number] Hospital 51374Qit: ([phone]) [id number] Repository [phone] () Date:2018-05-06 [address]ATTN: [place] [address]IZ: 05/06/2018 Secondary NOT GIVENUNK [place] Insurance:SELF PAY [facility] Number: Effective Repository Date:2018-05-06 05/06/2018 Yesi Grady Primary ROSALIE E [place] [address] Insurance:CARESOURCEP STROUS[place]OB: [place] Number: [id number] Hospital 35080Ujb: ([phone]) [id number] Repository [phone] () Date:2018-05-06 [address]ATTN: [place] [address]NZ: 05/06/2018 Secondary NOT GIVENUNK [place] Insurance:SELF PAY [facility] Number: Effective Repository Date:2018-05-06 05/06/2018 Yesi Grady Primary ROSALIE E [place] [address] Insurance:CARESOURCEP [place]OB: [place] Number: [id number] Hospital 10899Udu: ([phone]) [id number] Repository [phone] () Date:2018-05-06P [address]ATTN: [place] [address]CX: 05/06/2018 Secondary NOT GIVENUNK [place] Insurance:SELF PAY [facility] Number: Effective Repository Date:2018-05-06 03/08/2018 ROSALIE E Primary ROSALIE E [facility] STROUSEDOB: Insurance:CARESOURCE STROUSEDOB: [facility] [id number] BOX MEDICAIDPolicy [id number] Repository [address] Number: [address]Cib: 330 [id number] [phone] (HP) Date: 03/08/2018 Yesi N Primary ROSALIE E [place] [address] Insurance:CARESOURCEP [place]OB: [place] Number: [id number] Hospital 81574Fpa: (226) [id number] Repository [phone] Date:2018-03-08[address]ATTN: [place] [address]XN: 03/08/2018 Secondary NOT GIVENUNK Melanie Insurance:SELF PAY [facility] Number: Effective Repository Date:2018-03-08 11/21/2017 Yesi Ysabel Primary ROSALIE E [place] [address] Insurance:CARESOURCEP STROUSEDOB: [facility] [address] Number: [id number] [id number]: [phone] [id number] Repository [phone] ([phone]) Date:2017-11-21[address]ATTN: [place] [address]WL: 11/21/2017 Secondary NOT GIVENUNK [place] Insurance:SELF PAY [facility] Number: Effective Repository Date:2017-11-21
== END 2018-09-26 14:44 | disposition skilled nursing facility (03) | DRG 364 ==
LOC: ICU 09-22 06:56 → MS2 09-23 09:59 → ICU 09-23 10:13
PROVIDERS: Anesthesiology; Internal Medicine; Internal Medicine Critical Care Medicine; Admitting Provider Surgery; Family Provider Student in an Organized Health Care Education/Training Program; PCP Student in an Organized Health Care Education/Training Program; Referring Provider Surgery
PROC: 0JB80ZZ Excision of Abdomen Subcutaneous Tissue and Fascia, Open Approach (ICD-10-PCS; CPT 15830; principal; 2018-09-21 08:15)
DX: M79.3 Panniculitis, unspecified (principal); E66.01 Morbid (severe) obesity due to excess calories; Z68.45 Body mass index [BMI] 70 or greater, adult; I96 Gangrene, not elsewhere classified; L98.499 Non-pressure chronic ulcer of skin of other sites with unspecified severity; T81.19XA Other postprocedural shock, initial encounter; D62 Acute posthemorrhagic anemia; L30.4 Erythema intertrigo; R73.03 Prediabetes; E87.6 Hypokalemia; K43.2 Incisional hernia without obstruction or gangrene; G47.33 Obstructive sleep apnea (adult) (pediatric); F32.9 Major depressive disorder, single episode, unspecified; F41.9 Anxiety disorder, unspecified; I10 Essential (primary) hypertension; E03.9 Hypothyroidism, unspecified; J45.909 Unspecified asthma, uncomplicated; D63.8 Anemia in other chronic diseases classified elsewhere; B95.7 Other staphylococcus as the cause of diseases classified elsewhere; B96.89 Other specified bacterial agents as the cause of diseases classified elsewhere; Z86.14 Personal history of Methicillin resistant Staphylococcus aureus infection
CPT/HCPCS: 36415; 71045; 80048; 80202; 82728; 83036; 83540; 83550; 83735; 84100; 84132; 84134; 84439; 84443; 84703; 85014; 85018; 85025; 85027; 86226; 86850; 86900; 86920; 86922; 87070; 87075; 87077; 87086; 87102; 87186; 87205; 87206; 88305; 93005; 97110; 97162; 97165; 97530; 97802; J2997; J7030; J7040; J7050; J7120; P9016; A4216; C1751; J1940; J2405; J3490

== ENCOUNTER 2018-10-12 14:38 | Outpatient (RCR) | payer MEDICAID, SELFPAY ==
[2018-10-06 17:27] VITALS: BMI 78.4
[2018-10-12 15:03] VITALS: BP 122/73; PULSE 128; RESP 18; TEMP 36.6; BMI 78.4
--- NOTE | 2018-10-12 15:23 | PCM.WC.PN ---
(1) Open wound of lateral abdominal wall Status: Acute Current Visit: Yes Code(s): S31.109A - Unspecified open wound of abdominal wall, unspecified quadrant without penetration into peritoneal cavity, initial encounter Comment: open surgical wound right lateral abdominal wall (2) Panniculitis Status: Chronic Current Visit: No Code(s): M79.3 - Panniculitis, unspecified (3) Abdominal panniculus, symptomatic Status: Chronic Current Visit: Yes Code(s): E65 - Localized adiposity (4) Obesity, Class III, BMI 40-49.9 (morbid obesity) Status: Chronic Current Visit: Yes Code(s): E66.01 - Morbid (severe) obesity due to excess calories (5) H/O staphylococcal infection Status: Chronic Current Visit: Yes Code(s): Z86.19 - Personal history of other infectious and parasitic diseases Comment: history of methicillin resistant Staphylococcus hominis hominis Type of Wound Date of Service: 10/12/18 Chief Complaint: Nonhealing ulcer lower anterior abdominal wall. History of Wound: Surgery 05/11/18 - Surgical preparation lower anterior abdominal wall massive panniculus with excisional debridement nonhealing ulcer and skin and subcutaneous tissue for necrotizing soft tissue infection and panniculectomy (777 cm2). Wound care - Silver. Operative culture - MRSE, Enterococcus faecalis, Methicillin resistant Staphylococcus hominis hominis, Prevotella melaninogenica, Anaerococcus prevotii, and Corynebacterium amycolatum. She was treated with Vancomycin and Clindamycin and has finished them. Prealbumin from 05/12/18 was 21.1. Encourage nutritional supplementation with protein to help the healing process. CT from 05/08/18 showed a lower midline ventral hernia with nonobstructed small bowel extending into the pannus. Surgery on 09/21/18 Surgical preparation right lateral abdominal wall assivie panniculus with excisional debridement skin and subcutaneous tissue for necrotizing soft tissue infetion and panniculectomy (858 cm2). Operative cultures showed Staphylococcus simulans, Corynebacterium striatum, Corynebacterium amycolatum and Anaerobic cocci. Progress of Wound: Using wound VAC. Areas of fat necrosis on lateral side of opened area. - Physical Exam Vital Signs Temp Pulse Resp BP 98 F 128 H 18 122/73 H 10/12/18 15:03 10/12/18 15:03 10/12/18 15:03 10/12/18 15:03 General: Alert, Oriented x3, Cooperative HEENT: Atraumatic Oral: Moist Mucosa Lungs: Normal air movement Abdomen: Obese, Tender Extremities: Edema Skin: Ulcer/ Wound - Right pannus opened wound Wound Measurements and Assessment WC - Nurse 1 - General Ulcer Measurement Start: 10/12/18 14:57 Freq: Status: Active Protocol: Activity Type Activity Date Activity User E-Sign Co-Sign Detail Recorded Client Recorded Date Recorded By Document 10/12/18 15:03 [id number] 10/12/18 15:14 10/12/18 15:03 Wound Center Nurse 1 [Ulcer Assessment] #2 right pannus post-op -Combined with other wound No -Current Size (cm) - Length 29 -Current Size (cm) - Width 27.5 -Current Size (cm) - Depth 2 -Total Square Cm 797.5 -Date of Last Picture (Recall this 10/12/18 field) -Photo Taken Yes -Epithelialization None Present -Tunneling No -Undermining/Tunneling No -Circular Undermining No -Exudate Amt Large (67-100%) -Exudate Type Serosanguineous -Wound Margin Distinct, Outline Attached -Granulation Amt Large (67-100%) -Granulation Quality Red -Slough/Fibrin Yes -Necrosis Amt Large (67-100%) -Necrotic Tissue Type Adherent Slough -Structure Exposed N/A -Texture (Lyly-wound Skin Appearance) Friable Localized Edema -Moisture (Lyly-wound Skin Appearance Assessed ) -Color (Lyly-wound Skin Appearance) Erythema -Temperature (Lyly-wound Skin No Abnormality Appearance) (Pt Warm) -Tenderness on Palpation (Lyly-wound Yes Skin Appearance) -Ulcer Cleansing soap/water -Foul Odor after Cleansing No -Anesthetic Used 4% Lidocaine Solution [Edema Assessment] -Lower Limb Edema Present NA Musculoskeletal: No Tenderness to Palpation of Joints or Extremities Neurological: Neuro grossly intact Psych/Mental Status: Normal Affect, Appropriate Debridement Note Wound debrided: Right pannus Laterality: Right Type of Debridement: Excisional debridement Anesthesia Used: 4% Lidocaine Solution Depth: Down to and including healthy tissue, in the subcutaneous layer Percentage of wound debrided: 80 Instrument Used: 7mm curette Tissue Removed: Subcutaneous tissue, slough Severity: Limited To Skin Breakdown Amount of bleeding with debridement: Mild Bleeding Controlled with: Pressure, Compression and gauze On right lateral wound there are areas of necrotizing adipose tissue that have hardened and are becoming dark. The entire wound is very hypersensitive to touch during debridement. Assessment/Plan Active Problems H/O staphylococcal infection (Chronic) history of methicillin resistant Staphylococcus hominis hominis Open wound of lateral abdominal wall (Acute) open surgical wound right lateral abdominal wall Abdominal panniculus, symptomatic (Chronic) Obesity, Class III, BMI 40-49.9 (morbid obesity) (Chronic) Assessment: 1. Open wound of lateral abdominal wall (surgery 09/21/18). 2. 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 3. Borderline diabetes. 4. Abdominal wall skin crease intertrigo. 5. Morbid obesity. 6. Incisional hernia. 7. s/p surgical preparation right lateral abdominal wall massive panniculus with excisional debridement skin and subcutaneous tissue for necrotizing soft tissue infection and panniculectomy (858 cm2). Plan: Will hold wound VAC at this time and start 1/4 Dakins solution daily. She is currently staying at [facility] for wound care. Her recent surgery on 09/21/18 was the first stage of multiple panniculectomy procedures because of the risk of excising the massive panniculus all at once. Also the central portion would be excised last because of the presence of the hernia. At that time would need assistance from General Surgery for repair of the hernia. Her Prealbumin from 09/21/18 was 12.0. Encourage nutritional supplementation with protein to help the healing process. Discussed patient's wound and wound care with Dr. Hendricks. She will need further surgical debridement, but will do more conservative measures at this time to attempt to improve the wound bed. Patient states that she has not been taking her pain medication because if she doesn't move she is not having pain. Instructed the patient of the importance of moving and ambulating and that she needs to shower. Instructed her to start to take her pain medication so she is able to ambulate and be able to taken off her Lovenox. Instructed her that she needs to shower and get clean, which will also make her feel better. Instructed her to make sure that Partridge is cleaning her wound with soap and water before her dressing changes. Patient verbalizes understanding. Code Visit [id number]: [id number] Josephine subq tissue 20 sq cm/< Add On Codes: 43973 Josephine subq tissue add-on - x 40 (forty)
== END 2018-11-04 23:59 ==
LOC: WC 14:38
PROVIDERS: Family Provider Student in an Organized Health Care Education/Training Program; PCP Student in an Organized Health Care Education/Training Program; Visit Provider Nurse Practitioner Family
DX: L98.492 Non-pressure chronic ulcer of skin of other sites with fat layer exposed (principal); L98.491 Non-pressure chronic ulcer of skin of other sites limited to breakdown of skin; R73.09 Other abnormal glucose; E66.01 Morbid (severe) obesity due to excess calories; Z71.3 Dietary counseling and surveillance; E65 Localized adiposity; L30.4 Erythema intertrigo
CPT/HCPCS: 11042; 11045

== ENCOUNTER 2018-10-25 11:06 | Outpatient (RCR) | payer MEDICAID, SELFPAY ==
[2018-10-05 01:08] VITALS: BP 121/60; PULSE 92; RESP 20; TEMP 36.6; BMI 81.8
[2018-10-25 11:29] VITALS: BP 143/92; PULSE 116; RESP 18; TEMP 36.4; BMI 78.4
--- NOTE | 2018-10-25 21:35 | PCM.WC.PN ---
Type of Wound Date of Service: 10/25/18 Chief Complaint: Nonhealing ulcers right lateral abdominal wall and lower anterior abdominal wall. History of Wound: Surgery 09/21/18 - Surgical preparation right lateral abdominal wall massive panniculus with excisional debridement skin and subcutaneous tissue for necrotizing soft tissue infection and panniculectomy (858 cm2). Wound care - Dakin's dressing changes. Initially she had the VAC and had issues with it at the [facility]. Operative culture - Staphylococcus simulans, Corynebacteriurm striatum, Corynebacterium amycolatum, and Anaerobic cocci. She was treated initially with Vancomycin and then was placed on Levaquin for the [facility]. With the recent Anaerobic cocci, will add Cleocin. Prealbumin from 09/22/18 was 12.0. Encouraged nutritional supplementation with protein to help the healing process. Today she denies fever. Her appetite is ok. She states she feels better as she is able to get out of bed easier at the [facility] and ambulate better. Progress of Wound: Improved. - Physical Exam Vital Signs Temp Pulse Resp BP 97.5 F L 116 H 18 143/92 H 10/25/18 11:29 10/25/18 11:29 10/25/18 11:29 10/25/18 11:29 Wound Measurements and Assessment WC - Nurse 1 - General Ulcer Measurement Start: 10/25/18 11:29 Freq: Status: Active Protocol: Activity Type Activity Date Activity User E-Sign Co-Sign Detail Recorded Client Recorded Date Recorded By Document 10/25/18 11:29 [facility] [id number] 10/25/18 11:46 [facility] 10/25/18 11:29 Wound Center Nurse 1 [Ulcer Assessment] #3 Mid Abdominal Fold -Combined with other wound No -Current Size (cm) - Length 2.6 -Current Size (cm) - Width 18.0 -Current Size (cm) - Depth 0.1 -Total Square Cm 46.80 -Photo Taken Yes -Epithelialization None Present -Tunneling No -Undermining/Tunneling No -Circular Undermining No -Classification - Thickness Full Thickness without Exposed Support Structure -Exudate Type Serosanguineous -Wound Margin Flat & Intact -Granulation Amt None Present (0 %) -Granulation Quality N/A -Slough/Fibrin Yes -Necrosis Amt Large (67-100%) -Necrotic Tissue Type Adherent Slough -Structure Exposed None/Limited to Skin Breakdown -Texture (Lyly-wound Skin Appearance) Assessed Excoriation Scarring -Moisture (Lyly-wound Skin Appearance Assessed ) Weeping -Color (Lyly-wound Skin Appearance) No Abnormality Assessed -Temperature (Lyly-wound Skin No Abnormality Appearance) (Pt Warm) -Tenderness on Palpation (Lyly-wound No Skin Appearance) -Ulcer Cleansing soap -Foul Odor after Cleansing No -Anesthetic Used 4% Lidocaine Solution #2 right pannus post-op -Combined with other wound No -Current Size (cm) - Length 23.8 -Current Size (cm) - Width 30.3 -Current Size (cm) - Depth 1.9 -Total Square Cm 721.14 -Photo Taken No -Epithelialization Medium 34-66% -Tunneling No -Undermining/Tunneling No -Circular Undermining No -Classification - Thickness Full Thickness without Exposed Support Structure -Exudate Amt Large -Exudate Type Serosanguineous -Wound Margin Flat & Intact -Granulation Amt Large (67-100%) -Granulation Quality Red -Necrosis Amt Large (67-100%) -Necrotic Tissue Type Adherent Slough -Structure Exposed Fat Layer Exposed -Texture (Lyly-wound Skin Appearance) Assessed Scarring -Moisture (Lyly-wound Skin Appearance Assessed ) Weeping -Color (Lyly-wound Skin Appearance) No Abnormality Assessed -Temperature (Lyly-wound Skin No Abnormality Appearance) (Pt Warm) -Tenderness on Palpation (Lyly-wound No Skin Appearance) -Ulcer Cleansing soap -Foul Odor after Cleansing No -Anesthetic Used 4% Lidocaine Solution [Edema Assessment] -Lower Limb Edema Present No WC - Nurse 2 - General Ulcer CM Notes Start: 10/25/18 11:29 Freq: Status: Active Protocol: Activity Type Activity Date Activity User E-Sign Co-Sign Detail Recorded Client Recorded Date Recorded By Document 10/25/18 12:01 LOIS [id number] 10/25/18 12:04 LOIS 10/25/18 12:01 Wound Center Nurse 2 [Procedure/Treatment] #3 Mid Abdominal Fold -Time 12:03 -Correct Patient Yes -Correct Side, Site, Position Yes -Correct Procedure Yes -Procedure Performed Yes -Type of Procedure Debridement -Clinical Debridement Subcutaneous -Post Debridement Size (cm) - Length 2.6 -Post Debridement Size (cm) - Width 18.1 -Post Debridement Size (cm) - Depth 0.1 -Total Square Cm 47.06 -Wound/Ulcer Outcome Not Healed -Ulcer Cleansing Rinsed/ Irrigated with Saline -Foul Odor after Cleansing No -Bioengineered Tissue No -Bleeding Controlled with Pressure -Offloading No -Treatment Response Procedure Tolerated Well #2 right pannus post-op -Time 12:03 -Correct Patient Yes -Correct Side, Site, Position Yes -Correct Procedure Yes -Procedure Performed Yes -Type of Procedure Debridement -Clinical Debridement Subcutaneous -Post Debridement Size (cm) - Length 24 -Post Debridement Size (cm) - Width 30.3 -Post Debridement Size (cm) - Depth 1.9 -Total Square Cm 727.2 -Wound/Ulcer Outcome Not Healed -Ulcer Cleansing Rinsed/ Irrigated with Saline -Foul Odor after Cleansing No -Bioengineered Tissue No -Bleeding Controlled with Pressure -Offloading No -Treatment Response Procedure Tolerated Well [See Physician Procedure note for Specifics] Pain Scale: 0-10 Numeric [Pain] -Is Patient Pain Free? Yes Debridement Note Post-Debridement Measurements/Treatment WC - Nurse 2 - General Ulcer CM Notes Start: 10/25/18 11:29 Freq: Status: Active Protocol: Activity Type Activity Date Activity User E-Sign Co-Sign Detail Recorded Client Recorded Date Recorded By Document 10/25/18 12:01 LOIS [id number] 10/25/18 12:04 LOIS 10/25/18 12:01 Wound Center Nurse 2 #3 Mid Abdominal Fold -Time 12:03 -Correct Patient Yes -Correct Side, Site, Position Yes -Correct Procedure Yes -Procedure Performed Yes -Type of Procedure Debridement -Clinical Debridement Subcutaneous -Post Debridement Size (cm) - Length 2.6 -Post Debridement Size (cm) - Width 18.1 -Post Debridement Size (cm) - Depth 0.1 -Total Square Cm 47.06 -Wound/Ulcer Outcome Not Healed -Ulcer Cleansing Rinsed/ Irrigated with Saline -Foul Odor after Cleansing No -Bioengineered Tissue No -Bleeding Controlled with Pressure -Offloading No -Treatment Response Procedure Tolerated Well #2 right pannus post-op -Time 12:03 -Correct Patient Yes -Correct Side, Site, Position Yes -Correct Procedure Yes -Procedure Performed Yes -Type of Procedure Debridement -Clinical Debridement Subcutaneous -Post Debridement Size (cm) - Length 24 -Post Debridement Size (cm) - Width 30.3 -Post Debridement Size (cm) - Depth 1.9 -Total Square Cm 727.2 -Wound/Ulcer Outcome Not Healed -Ulcer Cleansing Rinsed/ Irrigated with Saline -Foul Odor after Cleansing No -Bioengineered Tissue No -Bleeding Controlled with Pressure -Offloading No -Treatment Response Procedure Tolerated Well Pain Scale: 0-10 Numeric Is Patient Pain Free? Yes Wound debrided: #2 Right lateral abdominal wall. Laterality: Right Wound Grade/Stage: 3. Type of Debridement: Excisional debridement Anesthesia Used: 4% Lidocaine Solution Depth: Down to and including healthy tissue, in the subcutaneous layer Percentage of wound debrided: 100 Instrument Used: 7mm curette Tissue Removed: subcutaneous tissue. Severity: Fat Layer Exposed Amount of bleeding with debridement: Mild Bleeding Controlled with: Pressure Patient tolerated procedure well - Additional Wound Wound debrided: #3 Lower anterior abdominal wall. Laterality: Not Applicable Wound Grade/Stage: 3. Type of Debridement: Excisional debridement Anesthesia Used: 4% Lidocaine Solution Depth: Down to and including healthy tissue, in the subcutaneous layer Percentage of wound debrided: 100 Instrument Used: 7mm curette Tissue Removed: subcutaneous tissue. Severity: Fat Layer Exposed Amount of bleeding with debridement: Mild Bleeding Controlled with: Pressure Patient tolerated procedure: Patient tolerated procedure well Assessment/Plan Assessment: 1. Nonhealing ulcers right lateral abdominal wall and lower anterior abdominal wall in massive abdominal panniculus. 2. Massive abdominal panniculus with panniculitis. 3. Borderline diabetes. 4. Abdominal wall skin crease intertrigo. 5. Morbid obesity. 6. Incisional hernia. 7. s/p surgical preparation right lateral abdominal wall massive panniculus with excisional debridement skin and subcutaneous tissue for necrotizing soft tissue infection and panniculectomy (858 cm2). Plan: Continue Dakin's dressing changes as it has helped to clean up the ulcer and improve the odor as well. There is residual fat necrosis in the ulcer that will persist until the next operative procedure. The next surgery will take place in 6 months because of her blood pressure issues after the last surgery necessitating ICU admission and pressors and PRBC. She understands that multiple procedures will be necessary. Also the central portion would be excised last because of the presence of the hernia. At that time would need assistance from General Surgery for repair of the hernia. Her operative culture showed Staphylococcus simulans, Corynebacterium striatum, and Corynebacterium amycolatum, and Anaerobic cocci. She has been on Levaquin. Cleocin will be added for 10 days. Her Prealbumin from 09/22/18 was 12.0. Encourage nutritional supplementation with protein to help the healing process. Followup one week. She has been getting out of bed more and will stop the Lovenox.
--- OUTSIDE RECORDS SUMMARY | 2018-12-27 21:22 | XMS RPT_ITS ---
:1975 Author Organization OHIP Support Name Relationship Address Phone CLINTON, PAT Unavailable [address] + [place] [address] UE Unavailable Unavailable Unavailable CLINTON, PAT Unavailable [address] + [place] [address] UE Unavailable Unavailable Unavailable CLINTON, PAT Unavailable [address] + [place] [address] UE Unavailable Unavailable Unavailable CLINTON, PAT Unavailable [address] + [place] [address] UE Unavailable Unavailable Unavailable CLINTON, PAT Unavailable [address] + [place] [address] UE Unavailable Unavailable Unavailable CLINTON, PAT Unavailable [address] + [place] [address] UE Unavailable Unavailable Unavailable CLINTON, PAT Unavailable [address] + [place] [address] UE Unavailable Unavailable Unavailable CLINTON, PAT Unavailable [address] + [place] [address] UE Unavailable Unavailable Unavailable CLINTON, PAT Unavailable [address] + [place] [address] UE Unavailable Unavailable Unavailable CLINTON, PAT Unavailable [address] + [place] [address] UE Unavailable Unavailable Unavailable CLINTON, PAT Unavailable [address] + [place] [address] UE Unavailable Unavailable Unavailable CLINTON, PAT Unavailable [address] + [place] [address] UE Unavailable Unavailable Unavailable CLINTON, PAT Unavailable [address] + [place] [address] UE Unavailable Unavailable Unavailable CLINTON, PAT Unavailable [address] + [place] [address] UE Unavailable Unavailable Unavailable CLINTON, PAT Unavailable [address] + [place] [address] UE Unavailable Unavailable Unavailable CLINTON, PAT Unavailable [address] + [place] [address] UE Unavailable Unavailable Unavailable CLINTON, PAT Unavailable [address] + [place] [address] UE Unavailable Unavailable Unavailable CLINTON, PAT Unavailable [address] + [place] [address] UE Unavailable Unavailable Unavailable CLINTON, PAT Unavailable [address] + [place] [address] UE Unavailable Unavailable Unavailable CLINTON, PAT Unavailable [address] + [place] [address] UE Unavailable Unavailable Unavailable CLINTON, PAT Unavailable [address] + [place] [address] UE Unavailable Unavailable Unavailable CLINTON, PAT Unavailable [address] + [place] [address] UE Unavailable Unavailable Unavailable CLINTON, PAT Unavailable [address] + [place] [address] UE Unavailable Unavailable Unavailable CLINTON, PAT Unavailable [address] + [place] [address] UE Unavailable Unavailable Unavailable CLINTON, PAT Unavailable [address] + [place] [address] UE Unavailable Unavailable Unavailable CLINTON, PAT Unavailable [address] + [place] [address] UE Unavailable Unavailable Unavailable CLINTON, PAT Unavailable [address] + [place] [address] UE Unavailable Unavailable Unavailable CLINTON, PAT Unavailable [address] + [place] [address] UE Unavailable Unavailable Unavailable CLINTON, PAT Unavailable [address] + [place] [address] COLEEN, YESI Unavailable [address] + [place] [address] UE Unavailable Unavailable Unavailable CLINTON, PAT Unavailable [address] + [place] [address] COLEEN, YESI Unavailable [address] + [place] [address] UE Unavailable Unavailable Unavailable CLINTON, PAT Unavailable [address] + [place] [address] COLEEN, YESI Unavailable [address] + [place] [address] UE Unavailable Unavailable Unavailable CLINTON, PAT Unavailable [address] + [place] [address] COLEEN, YESI Unavailable [address] + [place] [address] UE Unavailable Unavailable Unavailable CLINTON, PAT Unavailable [address] + [place] [address] COLEEN, YESI Unavailable [address] + [place] [address] UE Unavailable Unavailable Unavailable CLINTON, PAT Unavailable [address] + [place] [address] COLEEN, YESI Unavailable [address] + [place] [address] UE Unavailable Unavailable Unavailable CLINTON, PAT Unavailable [address] + [place] [address] COLEEN, YESI Unavailable [address] + [place] [address] UE Unavailable Unavailable Unavailable CLINTON, PAT Unavailable [address] + [place] [address] COLEEN, YESI Unavailable [address] + [place] [address] UE Unavailable Unavailable Unavailable CLINTON, PAT Unavailable [address] + [place] [address] COLEEN, YESI Unavailable [address] + [place] [address] UE Unavailable Unavailable Unavailable CLINTON, PAT Unavailable [address] + [place] [address] COLEEN, YESI Unavailable [address] + [place] [address] UE Unavailable Unavailable Unavailable CLINTON, PAT Unavailable [address] + [place] [address] COLEEN YESI Unavailable [address] + [place] [address] UE Unavailable Unavailable Unavailable CLINTON, PAT Unavailable [address] + [place] [address] COLEEN, YESI Unavailable [address] + [place] [address] UE Unavailable Unavailable Unavailable CLINTON, PAT Unavailable [address] + [place] [address] COLEEN, YESI Unavailable [address] + [place] [address] UE Unavailable Unavailable Unavailable CLINTON, PAT Unavailable [address] + [place] [address] COLEEN, YESI Unavailable [address] + [place] [address] UE Unavailable Unavailable Unavailable CLINTON, PAT Unavailable [address] + [place] [address] COLEEN, YESI Unavailable [address] + [place] [address] UE Unavailable Unavailable Unavailable CLINTON, PAT Unavailable [address] + [place] [address] COLEEN, YESI Unavailable [address] + [facility] [place] [address] UE Unavailable Unavailable Unavailable CLINTON, PAT Unavailable [address] + [place] [address] COLEEN, YESI Unavailable [address] + [place] [address] UE Unavailable Unavailable Unavailable CLINTON, PAT Unavailable [address] + [place] [address] COLEEN, YESI Unavailable [address] + [place] [address] UE Unavailable Unavailable Unavailable CLINTON, PAT Unavailable [address] + [place] [address] COLEEN, YESI Unavailable [address] + [place] [address] UE Unavailable Unavailable Unavailable CLINTON, PAT Unavailable [address] + [place] [address] COLEEN, YESI Unavailable [address] + [place] [address] UE Unavailable Unavailable Unavailable CLINTON, PAT Unavailable [address] + [place] [address] COLEEN, YESI Unavailable [address] + [place] [address] UE Unavailable Unavailable Unavailable CLINTON, PAT Unavailable [address] + [place] [address] COLEEN, YESI Unavailable [address] + [place] [address] UE Unavailable Unavailable Unavailable CLINTON, PAT Unavailable [address] + [place] [address] COLEEN, YESI Unavailable [address] + [place] [address] UE Unavailable Unavailable Unavailable CLINTON, PAT Unavailable [address] + [place] [address] COLEEN, YESI Unavailable [address] + [place] [address] UE Unavailable Unavailable Unavailable CLINTON, PAT Unavailable [address] + [place] [address] COLEEN, YESI Unavailable [address] + [place] [address] UE Unavailable Unavailable Unavailable CLINTON, PAT Unavailable [address] + [place] [address] COLEEN, YESI Unavailable [address] + [place] [address] UE Unavailable Unavailable Unavailable CLINTON, PAT Unavailable [address] + [place] [address] COLEEN, YESI Unavailable [address] + [place] [address] UE Unavailable Unavailable Unavailable CLINTON, PAT Unavailable [address] + [place] [address] YESI HORNE Unavailable [address] + [place] [address] UE Unavailable Unavailable Unavailable Care Team Providers Name Role Phone Gato Lobo Attending Unavailable Ruthie Yrn Referring Unavailable Bardales, Franco Primary Care Unavailable Slabvika, Yrn Consulting Unavailable Jared Ambrose Attending Unavailable Slaby, Yrn Referring Unavailable Bardales, Franco Primary Care Unavailable Jaleesa UriasOValentina Consulting Unavailable Tersanjuanitaky, Jared Consulting Unavailable Slaby, Yrn Consulting Unavailable Jaleesa UriasO. Attending Unavailable Slaby, Yrn Referring Unavailable Bardales, Franco Primary Care Unavailable Jaleesa UriasO. Consulting Unavailable Halie, Jared Consulting Unavailable Mary Sanchez Consulting Unavailable Slaby, Yrn Admitting Unavailable Jaleesa UriasO. Attending Unavailable Slaby, Yrn Referring Unavailable Bardales, Franco Primary Care Unavailable Nanciky, Jared Consulting Unavailable Víctor Urias.O. Consulting Unavailable Slaby, Yrn Consulting Unavailable Bardales, Franco Primary Care Unavailable PERRY MAY Attending Unavailable Bardales, Franco Primary Care Unavailable Xiomara Bynum Attending Unavailable Bardales, Franco Primary Care Unavailable White, Cuca Admitting Unavailable White, Cuca Attending Unavailable Slaby, Yrn Consulting Unavailable [place], Adonay Consulting Unavailable Moisés Soriano Consulting Unavailable White, Cuca Admitting Unavailable White, Cuca Attending Unavailable Bardales, Franco Primary Care Unavailable White, Cuca Consulting Unavailable White, Cuca Admitting Unavailable Tersanjuanitaky, Jared Attending Unavailable Bardales, Franco Primary Care Unavailable Slaby, Yrn Consulting Unavailable Tereletsky, Jared Consulting Unavailable White, Cuca Admitting Unavailable Jopperi, Jerry Attending Unavailable Bardales, Franco Primary Care Unavailable Slaby, Yrn Consulting Unavailable Jopperi, Jerry Consulting Unavailable White, Cuca Admitting Unavailable Jopperi, Jerry Attending Unavailable Bardales, Franco Primary Care Unavailable Slaby, Yrn Consulting Unavailable Jopperi, Jerry Consulting Unavailable White, Cuca Admitting Unavailable Darrick, Adonay Attending Unavailable Bardales, Franco Primary Care Unavailable Slaby, Yrn Consulting Unavailable Darrick, Adonay Consulting Unavailable Jopperi, Jerry Consulting Unavailable White, Cuca Admitting Unavailable Gato Lobo Attending Unavailable Bardales, Franco Primary Care Unavailable Slaby, Yrn Consulting Unavailable Darrick, Adonay Consulting Unavailable Ashelfsaurabh, Ghasem Consulting Unavailable White, Cuca Admitting Unavailable Ashelfah, Ghasem Attending Un[facility] Unavailable Slaby, Yrn Consulting Unavailable [place], Adonay Consulting Unavailable Ashelfah, Ghasem Consulting Unavailable White, Cuca Admitting Unavailable Slaby, Yrn Attending Un[facility] Unavailable Slaby, Yrn Consulting Unavailable Darrick, Adonay Consulting Unavailable Ashelfah, Ghasem Consulting Unavailable White, Cuca Admitting Unavailable Gato Lobo Attending Unavailable [facility] Unavailable Slaby, Yrn Consulting Unavailable [place], Adonay Consulting Unavailable Ashelfah, Ghasem Consulting Unavailable White, Cuca Admitting Unavailable Ashelfah, Ghasem Attending Unavailable [facility] Unavailable Slaby, Yrn Consulting Unavailable [place], Adonay Consulting Unavailable Ashelfah, Ghasem Consulting Unavailable White, Cuca Admitting Unavailable Ashelfah, Ghasem Attending Unavailable [facility] Unavailable Slaby, Yrn Consulting Unavailable [place], Adonay Consulting Unavailable Ashelfah, Ghasem Consulting Unavailable White, Cuca Admitting Unavailable Slaby, Yrn Attending Unavailable [facility] Unavailable Slaby, Yrn Consulting Unavailable [place], Adonay Consulting Unavailable Ashelfah, Ghasem Consulting Unavailable White, Cuca Admitting Unavailable Ashelfah, Ghasem Attending Unavailable [facility] Unavailable Slaby, Yrn Consulting Unavailable Darrick, Adonay Consulting Unavailable Ashelfah, Ghasem Consulting Unavailable Slaby, Yrn Admitting Unavailable Slaby, Yrn Attending Unavailable [facility] Unavailable Tereletsky, Jared Consulting Unavailable Jopperi, Jerry Referring Unavailable Arnav Webber, D.O. Consulting Unavailable Slaby, Yrn Consulting Unavailable Slaby, Yrn Admitting Unavailable Slaby, Yrn Attending [facility]available [facility] Unavailable Tereletsky, Jared Consulting Unavailable Jopperi, Jerry Referring Unavailable Arnav Brown, D.O. Consulting Unavailable Slaby, Yrn Consulting Unavailable Slaby, Yrn Admitting Unavailable Slaby, Yrn Attending [facility]available [facility] Unavailable Tereletsky, Jared Consulting Unavailable Jopperi, Jerry Referring Unavailable Arnav Brown, D.O. Consulting Unavailable Slaby, Yrn Consulting Unavailable Slaby, Yrn Admitting Unavailable Mary Sanchez Attending Unavailable Slaby, Yrn Referring Unavailable [facility] Unavailable Tereletsky, Jared Consulting Unavailable Víctor Urias.O. Consulting Unavailable Slaby, Yrn Consulting Unavailable Slaby, Yrn Admitting Unavailable Mary Sanchez Attending Unavailable Slaby, Yrn Referring Unavailable [facility] Unavailable Tereletsky, Jared Consulting Unavailable Arnav Webber, Víctor.O. Consulting Unavailable Slaby, Yrn Consulting Unavailable Slaby, Yrn Admitting Unavailable Slaby, Yrn Attending Unavailable [facility] Unavailable Tereletsky, Jared Consulting Unavailable Jopperi, Jerry Referring Unavailable Arnav Webber, D.O. Consulting Unavailable Jopperi, Jerry Consulting Unavailable Slaby, Yrn Admitting Unavailable Jopperi, Jerry Attending Unavailable Slaby, Yrn Referring Unavailable [facility] Unavailable Tereletsky, Jared Consulting Unavailable Arnav Webber, D.O. Consulting Unavailable Jopperi, Jerry Consulting Unavailable Slaby, Yrn Admitting Unavailable Jopperi, Jerry Attending Unavailable Slaby, Yrn Referring Unavailable [facility] Unavailable Tereletsky, Jared Consulting Unavailable Arnav Webber, D.O. Consulting Unavailable Jopperi, Jerry Consulting Unavailable Slaby, Yrn Admitting Unavailable Slaby, Yrn Attending [facility]available [facility] Unavailable Tereletsky, Jared Consulting Unavailable Jopperi, Jerry Referring Unavailable Arnav Akbar, D.O. Consulting Unavailable Jopperi, Jerry Consulting Unavailable Slaby, Yrn Admitting Unavailable Slaby, Yrn Attending Unavailable [facility] Unavailable Tereletsky, Jared Consulting Unavailable Jopperi, Jerry Referring Unavailable Arnav Akbar, D.O. Consulting Unavailable Jopperi, Jerry Consulting Unavailable Slaby, Yrn Admitting Unavailable Slaby, Yrn Attending Unavailable [facility] Unavailable Tereletsky, Jared Consulting Unavailable Jopperi, Jerry Referring Unavailable Arnav Brown, D.O. Consulting Unavailable Jopperi, Jerry Consulting Unavailable Slaby, Yrn Attending Unavailable [facility] Unavailable Sheron, Belinda E Attending Unavailable [facility] Unavailable Neville, Allenton Attending Unavailable Jopperi, Jerry Referring Unavailable Neville, Allenton Attending Unavailable Semaskiene, Courtney Referring Unavailable Sheron, Belinda E Attending Unavailable [facility] Unavailable Sheron, Belinda E Consulting Unavailable Slaby, Yrn Referring Unavailable White, Cuca Admitting Unavailable Ashelfah, Ghasem Attending Unavailable Bardales, Franco Primary Care Unavailable Slaby, Yrn Consulting Unavailable [place], Adonay Consulting Unavailable Ashelfah, Ghasem Consulting Unavailable White, Cuca Admitting Unavailable Slaby, Yrn Attending Unavailable Bardales, Franco Primary Care Unavailable Slaby, Yrn Consulting Unavailable [place], Adonay Consulting Unavailable Ashelfah, Ghasem Consulting Unavailable White, Cuca Admitting Unavailable Ashelfah, Ghasem Attending Unavailable Bardales, Franco Primary Care Unavailable Slaby, Yrn Consulting Unavailable Darrick, Adonay Consulting Unavailable Christie, Moisés Consulting Unavailable Ashelfah, Ghasem Consulting Unavailable White, Cuca Admitting Unavailable Ashelfah, Ghasem Attending Unavailable Bardales, Franco Primary Care Unavailable Slaby, Yrn Consulting Unavailable [place], Adonay Consulting Unavailable Christie, Moisés Consulting Unavailable Ashelfah, Ghasem Consulting Unavailable White, Cuca Admitting Unavailable Ruthie Yrn Attending Unavailable Bardales, Franco Primary Care Unavailable Slaby, Yrn Consulting Unavailable [place], Adonay Consulting Unavailable Christie, Moisés Consulting Unavailable [...] Primary Care Unavailable Slaby, Yrn Consulting Unavailable [place], Adonay Consulting Unavailable Christie, Moisés Consulting Unavailable White, Cuca Consulting Unavailable White, Cuca Admitting Unavailable White, Cuca Attending Unavailable Bardales, Franco Primary Care Unavailable Slaby, Yrn Consulting Unavailable [place], Adonay Consulting Unavailable Christie, Moisés Consulting Unavailable [...] Yrn Admitting Unavailable Tereletsky, Jared Consulting Unavailable Jerry Madrigal Attending Unavailable Arnav Webber D.O. Consulting Unavailable BARDALES, FRANCO L Attending Unavailable CORNIELLO, TRISHA L (BATTERBOARD SETTER) Attending Unavailable BARDALES, FRANCO L Referring Unavailable CORNIELLO, TRISHA L (BATTERBOARD SETTER) Referring Unavailable BARDALES, FRANCO L Referring Unavailable CORNIELLO, TRISHA L (BATTERBOARD SETTER) Attending Unavailable CORNIELLO, TRISHA L (BATTERBOARD SETTER) Attending Unavailable CORNIELLO, TRISHA L (BATTERBOARD SETTER) Attending Unavailable CORNIELLO, TRISHA L (BATTERBOARD SETTER) Referring Unavailable ELRIFAI, MOHAMED Admitting Unavailable ELRIFAI, MOHAMED Attending Unavailable YVONNE CONTI Consulting Unavailable BARDALES, FRANCO L Primary Care Unavailable ELRIFAI, MOHAMED Admitting Unavailable ELRIFAI, MOHAMED Attending Unavailable Janeen CONTI Consulting Unavailable PROBLEMS PROBLEMS DATE TYPE CONDITION / CODE ATTENDING STATUS SOURCE 10/07/2018 Unknown G89.18 - Other acute Yrn Hendricks Active [facility] / G89.18(ICD-10) Hospital Repository 10/07/2018 Unknown M79.3 - Slaby, Yrn Active [facility] Panniculitis, Community unspecified / Hospital M79.3(ICD-10) Repository 10/13/2018 Unknown R00.0 - Tachycardia, Neville, Allenton Active [facility] unspecified / Community R00.0(ICD-10) Hospital Repository 10/13/2018 Unknown I10 - Essential Neville, Gabe Active [facility] (primary) Community hypertension / Hospital I10(ICD-10) Repository 05/21/2018 Unknown M79.89 - Other White, Cuca Active [facility] specified soft Community tissue disorders / Hospital M79.89(ICD-10) Repository 06/11/2018 Unknown Z01.810 - Encounter Gabe Lozada Active [facility] for preprocedural [facility] examination / Repository Z01.810(ICD-10) 03/08/2018 Active Cellulitis of ELRIFAI, Active [facility] abdominal wall / [facility] Other L03.311(ICD-10) [place] Repository 03/08/2018 Active Unspecified open ELRIFAI, Active [facility] wound of abdominal [facility] Other wall, unspecified [place] quadrant without Repository penetration into peritoneal cavity, initial encounter / S31.109A(ICD-10) 03/08/2018 Active Local infection of ELRIFAI, Active [facility] the skin and [facility] Other subcutaneous tissue, [place] unspecified / Repository L08.9(ICD-10) 03/08/2018 Active Umbilical hernia ELRIFAI, Active [facility] with obstruction, [facility] Other without gangrene / [place] K42.0(ICD-10) Repository 03/08/2018 Admitting Unknown / ELRIFAI, Active [facility] diagnosis UNK(Unknown) [facility] Repository 04/01/2018 Unknown R10.9 - Unspecified Ahmed, Rami Active [facility] abdominal pain / Community R10.9(ICD-10) Hospital Repository 02/15/2018 Active Encounter for NA Active [place] screening mammogram [facility] for malignant [place] neoplasm of breast / Repository Z12.31(ICD-10) 05/05/2017 Active Localized adiposity NA Active [facility] / E65(ICD-10) Clinic Main [place] Repository 12/16/2017 Active Hypothyroidism, NA Active [facility] unspecified / Clinic Main E03.9(ICD-10) [place] Repository PROCEDURES PROCEDURES No Procedure Records FoundRESULTS RESULTS OPERATIVE REPORT Observed: 10/02/2018 Status: F Source: [place] 6:29 PM [facility] REPOSITORY [facility] Medical Records Department [address] [place] [address] Operative Report 09/21/18 1643 MR#: [id number] Acct: [id number] Name: ROSALIE HORNE Rep #: [id number] : 1975 43 From: Yrn Hendricks MD PCP: Franco Jacques, DO Status: DIS IN Y Location: MS2 MY158-0 Report of Operation Date of Procedure: 09/21/18 [...] (I used 2 vials). Reference Number - [id number]. Lot Number - [id number]. Expiration - June 01, 2023. display manager: Mercedes Fuchs. display manager: Dimitris Stack. Type of Anesthesia:: General Specimen's [...] Yes Code Visit Surgery Charges CPT - 39250 ICD-10 - E65, M79.3, L98.492, M79.89, L30.4, E66.9, Z86.19, R73.03, K43.2 10/02/18 1829 <Electronically signed by Yrn Hendricks MD> Date Yrn Hendricks MD CC: Arnav Webber D.O.; Yrn Hendricks MD; Franco Jacques DO; Jared Ambrose DO Signed DISCHARGE SUMMARY Observed: 09/29/2018 Status: F Source: [place] 12:39 AM [facility] Medical Records Department [address] [place] [id number] Discharge Summary 09/26/18 1330 MR#: [id number] Acct: [id number] Name: ROSALIE HORNE Rep #: [id number] : 1975 43 From: Yrn Hendricks MD PCP: Franco Jacques DO Status: DIS IN Y Location: MS2 [id number] Discharge Date and Diagnosis Date of Admission: [...] Michel Shannon MD at 14:27 EST Tel [phone], Service support , Consultations 09/21/18 17:25 Consult: Onc/Wound/keller machine operator Routine Comment: Hospitalist Group - Dr. Sanchez, Dr. Ambrose, and Dr. Madrigal. Barrel Plater - Dr. Webber. General Surgery - Dr. [...] was consulted for medical management. Dr. Webber, Barrel Plater, was consulted for management in the ICU. [...] she was discharged to the [facility]. Her vitale catheter was removed and she [...] Hendricks MD When: 4 weeks at wound [facility] [place]. call [phone] for appt. Please Follow Up With: Belinda Holbrook NP-C When: 3 weeks at wound center. call [phone] for appt. Additional Instructions: Patient should have a CBC drawn in two weeks. Fax results to [facility] at [phone]. Disposition: Detention facility Minutes spent on discharge:: 35 Patient Condition:: Fair Medical Necessity - Tobacco Use Smoking Status: Never smoker Meaningful Use Info Meaningful Use Diagnoses (Choose all that apply): None applicable Code Visit Inpatient E AND M: 71820 Disch Hosp - ICD-10 - E65, M79.3, S31.109A, M79.89, E66.9, L30.4, D62, K43.2, R73.03 09/29/18 0039 <Electronically signed by Yrn Hendricks MD> Date Yrn Hendricks MD Cosigner Signature (if applicable): Date CC: Gato Lobo MD; Mary Sanchez; Arnav Webber D.O.; Jerry Madrigal DO; Yrn Hendricks MD; Franco Jacques DO; Jared Ambrose DO; Wound Care Center Signed TRANSFER TO [facility] Observed: 09/26/2018 Status: F Source: [facility] 1:44 PM [facility] Medical Records Department [address] [place] [address] Transfer to [facility] Care MR#: [id number] Acct: [id number] Name: ROSALIE HORNE Rep #: [id number] : 1975 43 From: Yrn Hendricks MD PCP: Franco Jacques DO Status: ADM IN ROSALIE HORNE (Patient) (Health Ins. Claim No.) (Day of Discharge to Facility) Certification of patient admission REQUIRED AT TIME OF ADMISSION. I CERTIFY THAT POST-HOSPITAL ECF SERVICES ARE REQUIRED TO BE GIVEN ON AN IN-PATIENT BASIS BECAUSE OF THE ABOVE NAMED PATIENT'S NEED FOR [facility] CARE ON A CONTINUING BASIS FOR THE [...] weeks. fax results to wound center at [phone]. - Wound(s) ABD Wound Type: Open Surgical [...] When: 4 weeks at wound center. call [phone] for appt. Please Follow Up With: Belinda Holbrook RN INFUSION-C When: 3 weeks at wound center. call [phone] for appt. 09/26/18 1329 <Electronically signed by Yrn Hendricks MD> Date Yrn Hendricks MD CC: Arnav Webber D.O.; Franco Jacques DO; Jared Ambrose DO; Wound Care Center Signed CBC W/DIFF, AUTOMATED Collected: 09/26/2018 Status: F Source: [place] 7:19 AM [facility] TYPE CODE TESTS RESULT OUT OF [...] Lymph 2.22 Performed By: #### L100.0100 #### [facility] [address] [place], [address] BASIC METABOLIC Collected: 09/26/2018 Status: F Source: [place] PROFILE ([facility]) 7:19 AM [facility] TYPE CODE TESTS RESULT OUT OF [...] Normal 7 Performed By: #### L500.2500 #### [facility] [address] [address] [place], [place], [address] TYPE AND SCREEN Collected: 09/25/2018 Status: F Source: [place] 9:25 AM [facility] Order Comment: CMV NEG? N Number [...] NEGATIVE Screen Performed By: #### B101.7450 #### [facility] [address] [facility] [address] [place], [place], [address] RC Collected: 09/25/2018 Status: F Source: [place] 9:25 AM [facility] TYPE CODE TESTS RESULT OUT OF REFERENCE UNITS RANGE LAB U100.0000 [id number] TRANSFUSED PRODUCT: T AND S with Crossmatch, Red Cells COUNT: 2 Performed By: #### U100.0000 #### [facility] - refer to report for specific site CBC-COMPLETE BLOOD CNT Collected: 09/25/2018 Status: F Source: MELANIE NO DIFF 6:36 AM [facility] TYPE CODE TESTS RESULT OUT OF [...] 10.0 Performed By: #### L100.0500, L100.4500 #### [facility] [address] [place], [place], [address] DIFFERENTIAL COMMENT Collected: 09/25/2018 Status: F Source: [place]ELANIE 6:36 AM [facility] TYPE CODE TESTS RESULT OUT OF RANGE REFERENCE UNITS LAB L100.4500 Normal SMEAR COMMENT Result Comment: ANISOCYTOSIS 2+ HYPOCHROMIA 1+ POLYCHROMASIA 1+ Performed By: #### L100.0500, L100.4500 #### [facility] [address] [place], [place], [address] BASIC METABOLIC Collected: 09/25/2018 Status: F Source: MELANIE PROFILE (BMP) 6:36 AM [facility] TYPE CODE TESTS RESULT OUT OF [...] GAP 7 Performed By: #### L500.2500 #### [facility] [address] [place], [address] HH, HEMOGLOBIN AND Collected: 09/24/2018 Status: F Source: LENOX HEMATOCRIT 8:40 PM [facility] TYPE CODE TESTS RESULT OUT OF RANGE REFERENCE UNITS LAB L100.1300 12.0-15.0 g/dl Low HGB 7.2 LAB L100.1400 37-47 % Low HCT 23.4 Performed By: #### L100.0600 #### [facility] [address] [facility] [place], [address] POTASSIUM Collected: 09/24/2018 Status: F Source: LENOX 8:40 PM [facility] TYPE CODE TESTS RESULT OUT OF RANGE REFERENCE UNITS LAB L501.5600 3.5-5.1 mmol/L Low K 3.4 Performed By: #### L501.5600 #### [facility] [address] [place], [address] 12 LEAD ELECTROCARDIOGRAM Observed: 09/24/2018 Status: F Source: MELANIE 2:19 PM [facility] Cardiovascular Services [address] [place] [address] 12 Lead EKG 09/22/18 0935 MR#: [id number] Acct: [id number] Name: ROSALIE HORNE Rep #: [id number] : 1975 43 From: Gabe Lozada MD [...] UNCONFIRMED Confirmed by NEVILLE GILMORE, GABE ([id number]), editor publications DON STANFORD ([id number]) on 09/24/2018 2:18:55 PM Referred By: Yrn Hendricks Confirmed By:GABE LOZADA MD 09/24/18 1419 Date Gabe Lozada MD CC: Mary Sanchez; Yrn Hnedricks MD; Franco Jacques DO Signed POTASSIUM Collected: 09/24/2018 Status: F Source: [place]IE 12:34 PM [facility] TYPE CODE TESTS RESULT OUT OF RANGE REFERENCE UNITS LAB L501.5600 3.5-5.1 mmol/L Low K 3.4 Performed By: #### L501.5600 #### [facility] [address] [place], [address] BASIC METABOLIC Collected: 09/24/2018 Status: F Source: L[place] PROFILE (BMP) 5:16 AM [facility] TYPE CODE TESTS RESULT OUT OF [...] Normal 10 Performed By: #### L500.2500 #### [facility] [address] [facility] [place], [place], [address] CBC-COMPLETE BLOOD CNT Collected: 09/24/2018 Status: F Source: MEL[place]IE NO DIFF 5:16 AM [facility] TYPE CODE TESTS RESULT OUT OF [...] MPV 10.2 Performed By: #### L100.0500 #### [facility] [address] [place], [place], [address] VANCOMYCIN, TROUGH Collected: 09/23/2018 Status: F Source: M[place]IE LEVEL 3:41 PM [facility] Order Comment: Comments: PLEASE DRAW 30MIN [...] (Ventilator/Healtcare Associated) -Sepsis PLEASE CONTACT PHARMACY SERVICES (#[id number]) FOR INTERPRETATION OF RESULTS. Performed By: #### L501.8820 #### [facility] [address] [place], [address] CBC-COMPLETE BLOOD CNT Collected: 09/23/2018 Status: F Source: [place]IE NO DIFF 7:10 AM [facility] TYPE CODE TESTS RESULT OUT OF [...] MPV 9.7 Performed By: #### L100.0500 #### [facility] [address] [place], [address] BASIC METABOLIC Collected: 09/23/2018 Status: F Source: MELANIE PROFILE (BMP) 7:10 AM [facility] TYPE CODE TESTS RESULT OUT OF [...] Performed By: #### L500.2500, L501.2300, L501.5200 #### [facility] [address] [place], [place], [address] PHOSPHORUS Collected: 09/23/2018 Status: F Source: [place] 7:10 AM [facility] TYPE CODE TESTS RESULT OUT OF RANGE REFERENCE UNITS LAB L501.2300 2.5-4.9 mg/dL Normal PHOS 2.9 Performed By: #### L500.2500, L501.2300, L501.5200 #### [facility] [address] [place], [place], [address] MAGNESIUM Collected: 09/23/2018 Status: F Source: [place] 7:10 AM [facility] TYPE CODE TESTS RESULT OUT OF RANGE REFERENCE UNITS LAB L501.5200 1.6-2.6 mg/dL Normal MG 1.9 Performed By: #### L500.2500, L501.2300, L501.5200 #### [facility] [address] [place], [address] HISTORY AND PHYSICAL Observed: 09/22/2018 Status: F Source: [place] EXAM 9:49 PM [facility] Medical Records Department [address] [place] [address] History and Physical 09/20/181956 MR#: [id number] Acct: [id number] Name: ROSALIE HORNE Rep #: [id number] : 1975 43 From: Yrn Hendricks MD [...] Zoloft. 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 09/22/18 5509 <Electronically signed by Yrn Hendricks MD> Date Yrn Hendricks MD Cosigner Signature: Date (if applicable) CC: Yrn Hendricks MD; Franco Jacques DO; [facility] Signed MAGNESIUM Collected: 09/22/2018 Status: F Source: [place]ANIE 4:55 PM [facility] [place] TYPE CODE TESTS RESULT OUT OF RANGE REFERENCE UNITS LAB L501.5200 1.6-2.6 mg/dL Normal MG 1.6 Performed By: #### L501.5200, L503.6030, L503.6550 #### [facility] [address] [place], [address] IRON+IRON BINDING Collected: 09/22/2018 Status: F Source: [place] CAPACITY 4:55 PM [facility] TYPE CODE TESTS RESULT OUT OF REFERENCE UNITS RANGE LAB L503.6075 250-450 ug/dL Low TIBC 234 LAB L503.6150 50-170 ug/dL Low IRON 23 LAB L503.6250 15.0-55.0 % Low IRON SATURATION 9.8 Performed By: #### L501.5200, L503.6030, L503.6550 #### [facility] [address] [place], [address] FERRITIN Collected: 09/22/2018 Status: F Source: [place] 4:55 PM [facility] TYPE CODE TESTS RESULT OUT OF RANGE REFERENCE UNITS LAB L503.6550 8-252 ng/mL Normal FERRITIN 28 Performed By: #### L501.5200, L503.6030, L503.6550 #### [facility] [address] [place], [address] PHOSPHORUS Collected: 09/22/2018 Status: F Source: [place] 4:55 PM [facility] Order Comment: Comments: OK to use the AM blood draw TYPE CODE TESTS RESULT OUT OF RANGE REFERENCE UNITS LAB L501.2300 2.5-4.9 mg/dL Normal PHOS 2.9 Performed By: #### L501.2300 #### [facility] [address] [place], [address] ANTI-DNA (SINGLE) Collected: 09/22/2018 Status: F Source: [place] IGG, AB 4:55 PM [facility] TYPE CODE TESTS RESULT OUT OF RANGE REFERENCE UNITS LAB L3410.0300 0-19 EU Normal SS AB <20 [id number] Result Comment: Negative: <20 Borderline: 20 - 25 Positive: >25 Performed at: - [facility] [id number] Lug Loader: Yanna Ying MD, Phone: [phone] Performed By: #### L3410.0300 #### [facility] (refer to report for specific site) refer to report for address and phone number CONSULTATION Observed: 09/22/2018 Status: F Source: [place]IE 7:19 AM [facility] Medical Records Department [address] [facility] [place] [address] Consultation 09/21/18 1524 MR#: [id number] Acct: [id number] Name: ROSALIE HORNE Rep #: [id number] : 1975 43 From: Arnav Webber DO PCP: Franco Jacques DO Status: REG SD Y [facility] Reason for Consult Date of Consultation: 09/21/18 [...] 3, cholecystectomy, tonsillectomy. Psychiatric History: Anxiety, Depression DIRECTOR OF MIDWIFERY/STAFF MIDWIFE History: No pertinent DIRECTOR OF MIDWIFERY/STAFF MIDWIFE history Smoking Status: Never smoker - *Family [...] Michel Shannon MD at 14:27 EST Tel [phone], Service support , Clinical Impression(s) from Imaging Studies Chest X-Ray 09/21/18 14:03 IMPRESSION: The tip of the left central line is at the junction of the superior vena cava and left brachiocephalic vein. Electronically Signed: Michel Shannon MD at 14:27 EST Tel [phone], Service support , Assessment/Plan Active and Suspected [...] data and collaboration with the care team. ([id number]) Code Visit 9xxxx: [id number] Critical care first hour 09/22/18 0719 <Electronically signed by Arnav Webber DO> Date Arnav Webber DO Cosigner Signature (if applicable): Date CC: Arnav Webber D.O.; Yrn Hendricks MD; Franco Jacques DO; Jared Ambrose DO Signed CBC-COMPLETE BLOOD CNT Collected: 09/22/2018 Status: F Source: [place]IE NO DIFF 5:00 AM [facility] TYPE CODE TESTS RESULT OUT OF [...] MPV 9.8 Performed By: #### L100.0500 #### [facility] [address] [place], [address] BASIC METABOLIC Collected: 09/22/2018 Status: F Source: [place] PROFILE (BMP) 5:00 AM [facility] [place] TYPE CODE TESTS RESULT OUT OF [...] 8 Performed By: #### L500.2500, L506.0500 #### [facility] [address] [place], [address] PREALBUMIN Collected: 09/22/2018 Status: F Source: [place]EL[place]IE 5:00 AM [facility] [place] TYPE CODE TESTS RESULT OUT OF REFERENCE UNITS RANGE LAB L506.0500 20.0-40.0 mg/dL Low PREALBUMIN 12.0 Performed By: #### L500.2500, L506.0500 #### [facility] [address] [place], [address] HEMOGLOBIN A1C Collected: 09/22/2018 Status: F Source: MELANIE 5:00 AM [facility] [place] TYPE CODE TESTS RESULT OUT OF RANGE REFERENCE UNITS LAB L501.9985 4.2-6.3 % Normal HGB A1C 5.2 Performed By: #### L501.9985 #### [facility] [address] [place], [address] Observed: 09/21/2018 Status: F Source: MELANIE CULTURE, URINE 4:35 PM [facility] Urine Culture Culture exhibits no growth. Performed By: #### M100.0650 #### [facility] [place], [address] HH, HEMOGLOBIN AND Collected: 09/21/2018 Status: F Source: MEL[place]IE HEMATOCRIT 3:45 PM [facility] [place] TYPE CODE TESTS RESULT OUT OF RANGE REFERENCE UNITS LAB L100.1300 12.0-15.0 g/dl Low HGB 10.5 LAB L100.1400 37-47 % Low HCT 34.0 Performed By: #### L100.0600 #### [facility] [address] [place], [address] T4 FREE DIRECT Collected: 09/21/2018 Status: F Source: [place]EL[place]IE 3:45 PM [facility] TYPE CODE TESTS RESULT OUT OF REFERENCE UNITS RANGE LAB L506.0400 0.76-1.46 ng/dL High T4 FREE 1.53 DIRECT Performed By: #### L506.0400 #### [facility] [address] [place], [address] OPERATIVE REPORT Observed: 09/21/2018 Status: F Source: [place]EL[place]IE 2:46 PM [facility] Medical Records Department [address] [address] Operative Report 09/21/18 1441 MR#: [id number] Acct: [id number] Name: ROSALIE HORNE Rep #: [id number] : 1975 43 From: Gato Lobo MD PCP: Franco Jacques DO Status: REG SDC Y [facility] Problem List (1) Encounter for adjustment or [...] 1 VIEW Observed: 09/21/2018 Status: F Source: LENOX (PORTABLE) 2:04 PM [facility] Imaging Services [address] [place] [address] Chest 1 View (Portable) MR#: [id number] Acct: [id number] Name: ROSALIE HORNE Rep #: [id number] : 1975 F 43 From: Michel Shannon MD PCP: Franco Jacques DO Status: REG [facility] Study: Chest 1 View (Portable) Date of Exam: 09/21/18 Exam# [id number] Ordering Dr: Jerry Petersen MD STUDY: X-RAY [...] Michel Shannon MD at 14:27 EST Tel [phone], Service support , CC: Jerry Petersen MD; Franco Jacques DO Special Education Director: Signed HEMOGLOBIN Collected: 09/21/2018 Status: F Source: [place] 12:05 PM [facility] TYPE CODE TESTS RESULT OUT OF RANGE REFERENCE UNITS LAB L100.1300 12.0-15.0 g/dl Low HGB 6.2 Performed By: #### L100.1300 #### [facility] [address] [facility] [place], [place], [address] TYPE AND SCREEN Collected: 09/21/2018 Status: F Source: [place] 12:05 PM [facility] Order Comment: CMV NEG? N Number [...] NEGATIVE Screen Performed By: #### B101.7450 #### [facility] [address] [facility] [place], [place], [address] RC Collected: 09/21/2018 Status: F Source: [place] 12:05 PM [facility] TYPE CODE TESTS RESULT OUT OF REFERENCE UNITS RANGE LAB U100.0000 [id number] TRANSFUSED PRODUCT: T AND S with Crossmatch, Red Cells COUNT: 2 Performed By: #### U100.0000 #### [facility] - refer to report for specific site RC Collected: 09/21/2018 Status: F Source: [place] 12:05 PM [facility] TYPE CODE TESTS RESULT OUT OF REFERENCE UNITS RANGE LAB U100.0000 [id number] TRANSFUSED PRODUCT: T AND S with Crossmatch, Red Cells COUNT: 2 Performed By: #### U100.0000 #### [facility] - refer to report for specific site Observed: 09/21/2018 Status: F Source: MELANIE CULTURE, DEEP WOUND 11:34 AM [facility] Order Date: 05/06/17 List Antibiotics Last [...] <=0.5 S (NF) indicates non-formulary drug at [facility]. Approval by Infectious Disease Specialist [...] Anaerobic cocci Performed By: #### M100.1500 #### [facility] [address] [place], [address] Observed: 09/21/2018 Status: P Source: MELANIE CULTURE, FUNGUS W/ 11:34 AM [facility] [place] [id number] REPOSITORY Comments: TISSUE RIGHT PANNUS Has pt arrived? Y Is this test to exclude patient from TB Isolation? [address] TESTING PERFORMED AT [facility]. ORIGINAL REPORT ON FILE IN LAB CONTAINS ADDITIONAL TEST SITE INFORMATION. Fungus Stain No yeast or mold observed. Performed By: #### M600.1900 #### [facility] [address] [place], [address] PANNUS Observed: 09/21/2018 Status: F Source: [place] 8:30 [facility] Patient: ROSALIE HORNE : 1975 (43/F) Acct Num: [id number] Phys: Yrn Hendricks MD Unit Num: [id number] Loc: MS2 MD763-6 Specimen: [id number] Received: 09/21/184 Spec Type: PANNUS TISSUES 1 [...] cutaneous surface does not contain mass lesions. Baker sections are submitted in six cassettes. / AM:jeromy 09/22/18 TC:3 CPT: 45756 HEADER OPERATION: Panniculus excisional debridement ulcer, skin [...] on file> Performed By: #### PPANN #### [facility] [address] [place], [address] CBC W/DIFF, AUTOMATED Collected: 09/21/2018 Status: F Source: [place] 7:31 AM [facility] Order Comment: Reason for Laboratory Test [...] TARGET CELLS. Performed By: #### L100.0100 #### [facility] [address] [place], [address] BASIC METABOLIC Collected: 09/21/2018 Status: F Source: [place] PROFILE (BMP) 7:31 AM [facility] Order Comment: Reason for Laboratory Test [...] 10 Performed By: #### L500.2500, L501.9520 #### [facility] [address] [place], [address] THYROID STIM HORMONE Collected: 09/21/2018 Status: F Source: MELANIE (TSH) 7:31 AM [facility] Order Comment: Reason for Laboratory Test surgery TYPE CODE TESTS RESULT OUT OF RANGE REFERENCE UNITS LAB L501.9520 0.358-3.74 uIU/mL Low TSH 0.11 Performed By: #### L500.2500, L501.9520 #### [facility] [address] [place], [address] ,SERUM,HCG QUALI. Collected: Status: F Source: MELANIE 09/21/2018 7:31 AM [facility] TYPE CODE TESTS RESULT OUT OF REFERENCE UNITS RANGE LAB L700.6700 =>Qualitative mIU/mL Normal HCG Qual < 1 triggr LAB L700.7000 0-9 Nonpreg Negative Normal HCGSQUAL NEGATIVE Performed By: #### L700.6800 #### [facility] [address] [place], [address] CNPN Observed: 08/19/2018 Status: COMPLETED Source: VILLAREAL 12:00 AM [facility] REPOSITORY [facility] ROSALIE HORNE ([id number]) 1975 F Date Time Provider Department 08/19/18 FRANCO BARDALES [facility] During your visit today, we recorded the following information about you: Bebe Velazco LPN 08/19/2018 1:50 PM Signed Jazmin with [facility] [phone] calling to request a prescription again for [...] PM Signed [facility] Satish Braswell, RN, RN 08/20/2018 12:37 PM [...] E66.01 Z68.45 M25.50 Please send to address: [address] [place] [address](pt currently at this facility)Disp: 1 EachRfl: 0 [...] Z68.45 M25.50 Please send to address: [place] [address](pt currently at this facility) Medications Discontinued During This Encounter COMPOUNDED PRESCRIPTION 1 Ea* 0 06/02/2018 08/19/2018 Class: Print RX Sig: Bariatric Wheelchair Dx: E66.01 Z68.45 M25.50 Please send to address: [place] [address](pt currently at this facility) Disc: Reason for discontinue is not on file. Encounter Status:Closed by SATISH HERNANDEZ LPN on 08/19/18 EMERGENCY DEPARTMENT Observed: 08/03/2018 Status: F Source: MELANIE SUMMARY 9:05 [facility] REPOSITORY [facility] Medical Records Department [address] [place] [address] Emergency Department Summary 03/08/18 0101 MR#: [id number] Acct: [id number] Name: ROSALIE HORNE Rep #: [id number] : 1975 42 From: Xiomara Bynum DO [...] Impression: [] This note was generated with [employer] dictation software. It may contain incorrect words, [...] your Primary Care Provider. Call [facility] ([phone]) or report to the closest Emergency Room. Call 911 if necessary. Date Xiomara Bynum DO Cosigner Signature (If Indicated): Date CC: Franco Jacques DO EMERGENCY DEPARTMENT Observed: 06/29/2018 Status: F Source: LENOX SUMMARY 9:13 PM [facility] [facility] Medical Records Department [address] [place] [address] Emergency Department Summary 06/29/18 2106 MR#: [id number] Acct: [id number] Name: ROSALIE HORNE Rep #: [id number] : 1975 43 From: Davon Wyatt MD [...] abdominal wall This note was generated with [employer] dictation software. It may contain incorrect words, [...] your Primary Care Provider. Call [facility] ([phone]) or report to the closest Emergency Room. Call 911 if necessary. 06/29/182112 <Electronically signed by Davon Wyatt MD> Date Davon Wyatt MD Cosigner Signature (If Indicated): Date CC: Yrn Hendricks MD; Franco Jacques DO LACTIC ACID Collected: 06/29/2018 Status: F Source: [place]ELANIE 6:45 PM [facility] Order Comment: Yes/No query for Sepsis Lactate Rule Y TYPE CODE TESTS RESULT OUT OF RANGE REFERENCE UNITS LAB L503.6005 0.4-2.0 mmol/L Normal LACTIC ACID 1.7 Performed By: #### L503.6005 #### [facility] [address] [place], [place], [address] CBC W/DIFF, AUTOMATED Collected: 06/29/2018 Status: F Source: LENOX 6:45 PM [facility] TYPE CODE TESTS RESULT OUT OF [...] Lymph 2.09 Performed By: #### L100.0100 #### [facility] [address] [place], [place], [address] BASIC METABOLIC Collected: 06/29/2018 Status: F Source: [place]OX PROFILE ([facility]) 6:45 PM [facility] TYPE CODE TESTS RESULT OUT OF [...] GAP 9 Performed By: #### L500.2500 #### [facility] [address] [facility] [place], [address] DISCHARGE SUMMARY Observed: 05/21/2018 Status: F Source: LENOX 12:18 PM [facility] [facility] Medical Records Department [address] [facility] [place] [address] Discharge Summary 05/21/18 1205 MR#: [id number] Acct: [id number] Name: COLEENROSALIE E Rep #: [id number] : 1975 42 From: Cuca Mast PCP: Franco Jacques DO Status: ADM IN Y Location: MS3 XB902-1 Discharge Date and Diagnosis - Problem List [...] Allergic Rhinitis, Hypothyroidism who presented to the [facility] ED on 05/06/18 with history of prolonged difficulties w/ abdominal wall/pannicular cellulitis most recently treated inpatient 2 months prior at [facility] with improvement; however, worsened again recently w/ [...] tachycardia, increased RR, elevated LA. Admitted to NH, maintained initially on IV vanc and zosyn-->transitioned [...] compliance as not using. Upon discharge to [facility] planned follow- up with Plastic Surgery, ongoing [...] follow routine labs while on antibiotics Disposition: Detention facility Minutes spent on discharge:: 35 Patient Condition:: Fair Medical Necessity - Tobacco Use Smoking Status: Never smoker Tobacco Use: Non-smoker Meaningful Use Info Meaningful Use Diagnoses (Choose all that apply): None applicable Code Visit Inpatient E AND M: 60664 Disch Hosp 05/21/18 1218 <Electronically signed by Cuca Mast > Date Cuca Cynthia Mast Cosigner Signature (if applicable): Date CC: Cuca Mast; Franco Jacques DO Signed PROGRESS Observed: 05/21/2018 Status: COMPLETED Source: VIRDEN 9:46 AM [facility] REPOSITORY HNO ID: [id number] Author: Porfirio Nguyen (Rn) Service: (none) Author Type: Registered Nurse Type: Progress Notes Filed: 05/21/2018 9:52 AM Note Text: PRIMARY CARE COORDINATION FOLLOW-UP NOTE Provider Action/FYI Spk with [facility] Lindsay Joe RN CM, Pt remains Inpt awaiting precert authorization from Care source with anticipated transfer to [facility] for IV ATB s/p Panniculectomy. Patient identified by name and date of . YES Wendy Monroy RN May 21, 2018 VANCOMYCIN, TROUGH Collected: 05/21/2018 Status: F Source: [facility] 7:42 AM [facility] Order Comment: Time Medication is to [...] (Ventilator/Healtcare Associated) -Sepsis PLEASE CONTACT PHARMACY SERVICES (#[id number]) FOR INTERPRETATION OF RESULTS. Performed By: #### L501.8820 #### [facility] [place], [address] CNPTOUTREACH Observed: 05/21/2018 Status: COMPLETED Source: [place] 12:00 AM [facility] REPOSITORY Patient Outreach (FAMPWS) ROSALIE HORNE ([id number]) 1975 F Date Time Provider Department 05/21/18 PORFIRIO NGUYEN (RN) FAMPWS During your visit today, we recorded the following information about you: Wendy Monroy RN 05/21/2018 9:52 AM Signed PRIMARY CARE COORDINATION FOLLOW-UP NOTE Provider Action/FYI Spk with [facility] Lindsay Joe RN CM, Pt remains Inpt awaiting precert authorization from Care source with anticipated transfer to [place] for IV ATB s/p Panniculectomy. Patient identified [...] LPN - Fully Assessed Reason for Visit: Cost Specialist Hospital Follow Up [3914] Cmt: [facility] Prescriptions as of 05/21/2018 Sig: TRANSPARENT [...] 05/21/18 PROGRESS Observed: 05/20/2018 Status: COMPLETED Source: [place] 2:41 PM [facility] [place] REPOSITORY HNO ID: [id number] Author: Porfirio Nguyen (Rn) Service: (none) Author [...] 05/20/2018 Status: F Source: [place] 10:15 AM [facility] Order Comment: NURSE DRAW UTO TO [...] Lymph 2.13 Performed By: #### L100.0100 #### [facility] [address] [place], [address] BASIC METABOLIC Collected: 05/20/2018 Status: F Source: [place] PROFILE ([facility]) 10:15 AM [facility] [facility] Order Comment: NURSE DRAW. UTO TO [...] GAP 9 Performed By: #### L500.2500 #### [facility] [address] [place], [place], [address] IRON+IRON BINDING Collected: 05/20/2018 Status: F Source: [facility] 10:15 AM [facility] TYPE CODE TESTS RESULT OUT OF RANGE REFERENCE UNITS LAB L503.6075 250-450 ug/dL TIBC Normal 338 LAB L503.6150 50-170 ug/dL Low IRON 20 LAB L503.6250 15.0-55.0 % Low IRON SATURATION 5.9 Performed By: #### L503.6030, L503.6550, L506.0250 #### [facility] [address] [place], [address] FERRITIN Collected: 05/20/2018 Status: F Source: [place] 10:15 AM [facility] [place] TYPE CODE TESTS RESULT OUT OF RANGE REFERENCE UNITS LAB L503.6550 8-252 ng/mL Normal FERRITIN 95 Performed By: #### L503.6030, L503.6550, L506.0250 #### [facility] [address] [place], [address] FOLATES, (FOLIC ACID) Collected: 05/20/2018 Status: F Source: [place] 10:15 AM [facility] TYPE CODE TESTS RESULT OUT OF RANGE REFERENCE UNITS LAB L506.0250 3.1-55.4 ng/mL Normal FOLATES 13.30 Result Comment: Slight Hemolysis, Result may be falsely increased. Performed By: #### L503.6030, L503.6550, L506.0250 #### [facility] [address] [place], [address] VITAMIN B12 Collected: 05/20/2018 Status: F Source: [place] 10:15 AM [facility] [place] TYPE CODE TESTS RESULT OUT OF RANGE REFERENCE UNITS LAB L503.0105 211-911 pg/mL Normal Vitamin B12 392 Performed By: #### L503.0105 #### [facility] [address] [place], [address] CXR FOR LINE PLACEMENT Observed: 05/20/2018 Status: F Source: [place] 9:50 AM [facility] [place] [facility] Imaging Services [address] [place] [address] CXR for Line Placement MR#: [id number] Acct: [id number] Name: ROSALIE HONRE Rep #: [id number] : 1975 F 42 From: Michel Shannon MD PCP: Franco Jacques DO Status: ADM IN Study: CXR for Line Placement Date of Exam: 05/20/18 Exam# [id number] Ordering Dr: Cuca Mast STUDY: X-RAY CHEST [...] Michel Shannon MD at 12:23 EDT Tel [phone], Service support , CC: Cuca Mast; Franco Jacques DO Special Education Director: Signed ALYCIATOUTREACH Observed: 05/20/2018 Status: COMPLETED Source: [place] 12:00 AM [facility] REPOSITORY Patient Outreach (FAMPWS) ROSALIE HORNE ([id number]) 1975 F Date Time Provider Department 05/20/18 [...] LPN - Fully Assessed Reason for Visit: Cost Specialist- Other [1037] Cmt: D/C to SNF 05/19/18 Reason For [...] by WENDY MONROY on 05/20/18 TRANSFER TO [facility] Observed: 05/19/2018 Status: F Source: [facility] 12:58 PM [facility] [place] [facility] Medical Records Department [address] [place] [address] Transfer to [facility] Care MR#: [id number] Acct: [id number] Name: ROSALIE HORNE Rep #: [id number] : 1975 42 From: Cuca Mast PCP: Franco Jacques DO Status: ADM IN ROSALIE HORNE (Patient) (Health Ins. Claim No.) (Day of Discharge to Facility) Certification of patient admission REQUIRED AT TIME OF ADMISSION. I CERTIFY THAT POST-[facility] SERVICES ARE REQUIRED TO BE GIVEN ON AN IN-PATIENT BASIS BECAUSE OF THE ABOVE NAMED PATIENT'S NEED FOR [facility] CARE ON A CONTINUING BASIS FOR THE CONDITION(S) FOR WHICH HE/SHE WAS RECEIVING IN-PATIENT HOSPITAL SERVICES PRIOR TO HIS/HER TRANSFER TO THE [facility]. 05/19/18 1258 <Electronically signed by Cuca Mast [...] Incision Dressing Change: mepitel/ ABDs/ Medipore/ betadine study specialist kerlix - Suggestions for Active Care Change [...] Status: F Source: [place] (TSH) 9:55 AM [facility] TYPE CODE TESTS RESULT OUT OF RANGE REFERENCE UNITS LAB L501.9520 0.358-3.74 uIU/mL High TSH 4.27 Performed By: #### L501.9520, L506.0400 #### [facility] [address] [place], [address] T4 FREE DIRECT Collected: 05/19/2018 Status: F Source: [place] 9:55 AM [facility] [place] TYPE CODE TESTS RESULT OUT OF REFERENCE UNITS RANGE LAB L506.0400 0.76-1.46 ng/dL High T4 FREE 1.64 DIRECT Performed By: #### L501.9520, L506.0400 #### [facility] [address] [place], [address] TRANSFER TO [facility] Observed: 05/17/2018 Status: F Source: [place] CARE 11:23 AM [facility] [place] [facility] Medical Records Department [address] [place] [id number] Transfer to [facility] Care MR#: [id number] Acct: [id number] Name: ROSALIE HORNE Rep #: [id number] : 1975 42 From: Lawrence Jones MD PCP: Franco Jacques DO Status: ADM IN ROSALIE HORNE (Patient) (Health Ins. Claim No.) (Day of Discharge to Facility) Certification of patient admission REQUIRED AT TIME OF ADMISSION. I CERTIFY THAT POST-HOSPITAL [facility] SERVICES ARE REQUIRED TO BE GIVEN ON AN IN-PATIENT BASIS BECAUSE OF THE ABOVE NAMED PATIENT'S NEED FOR [facility] CARE ON A CONTINUING BASIS FOR THE [...] Incision Dressing Change: mepitel/ ABDs/ Medipore/ betadine study specialist kerlix - Suggestions for Active Care Change [...] Status: F Source: [place] LEVEL 9:30 AM [facility] Order Comment: Time Medication is to [...] (Ventilator/Healtcare Associated) -Sepsis PLEASE CONTACT PHARMACY SERVICES (#[id number]) FOR INTERPRETATION OF RESULTS. Performed By: #### L501.8820 #### [facility] [address] [place], [address] VANCOMYCIN, TROUGH Collected: 05/16/2018 Status: F Source: [place] LEVEL 5:30 PM [facility] [place] Order Comment: Time Medication is to [...] (Ventilator/Healtcare Associated) -Sepsis PLEASE CONTACT PHARMACY SERVICES (#8989) FOR INTERPRETATION OF RESULTS. Performed By: #### L501.8820 #### [facility] [address] [place], [address] VANCOMYCIN, TROUGH Collected: 05/15/2018 Status: F Source: [place] LEVEL 8:24 AM [facility] [place] Order Comment: Comments: DRAW TROUGH LEVEL [...] (Ventilator/Healtcare Associated) -Sepsis PLEASE CONTACT PHARMACY SERVICES (#[id number]) FOR INTERPRETATION OF RESULTS. Performed By: #### L501.8820 #### [facility] [address] [place], [address] CONSULTATION Observed: 05/14/2018 Status: F Source: [place] 2:03 PM [facility] [place] [facility] Medical Records Department [address] [place] [address] Consultation 05/14/18 1356 MR#: [id number] Acct: [id number] Name: DC HORNETALITA Pacheco Rep #: [id number] : 1975 42 From: Moisés Soriano MD PCP: Franco Jacques DO Status: ADM IN Y Location: MS3 EB062-4 Problem List (1) Necrotizing soft tissue infection Status: Acute (2) Panniculitis Status: Acute Reason for Consult: panniculitis Consulted by: Dr. Jones History of Present Illness: The patient is a 42 year old F with morbid obesity and recurrent panniculitis for several years who presented with several weeks of worsened pain, redness, swelling. Some chills. Had been at [facility] recently and d/c on iv abx. Now [...] vanc trough. Will follow, thank you. D/w case coordinator, rx written for labs and abx. 05/14/18 1403 <Electronically signed by Moisés Soriano MD> Date Moisés Soriano MD Cosigner Signature (if applicable): Date CC: Adonay Hollingsworth MD; Yrn Hendricks MD; Franco Jacques DO; Moisés Soriano MD Signed OPERATIVE REPORT Observed: 05/14/2018 Status: F Source: [place] 1:32 PM [facility] [place] [facility] Medical Records Department [address] [place] [address] Operative Report 05/11/183 MR#: [id number] Acct: [id number] Name: ROSALIE HORNE Rep #: [id number] : 1975 42 From: Yrn Hendricks MD PCP: Franco Jacques, DO Status: ADM IN Y Location: [facility] AM040-1 Report of Operation Date of Procedure: 05/11/18 [...] of abdominal panniculitis, the most recent in [place]. Recently she was placed on oral antibiotics [...] - 21 x 37 x 4 cm. display manager: Gato Lobo MD Type of Anesthesia:: General [...] Yes Code Visit Surgery Charges CPT - 48771 ICD-10 - L98.492, M79.89, E65, M79.3, R73.03, L30.4, K43.2, E66.9 05/14/18 1332 <Electronically signed by Yrn Hendricks MD> Date Yrn Hendricks MD CC: Gato Lobo MD; Cuca Mast; Adonay Hollingsworth MD; Jerry Madrigal DO; Lawrence Jones; Yrn Hendricks MD; Franco Jacques DO; Jared Ambrose DO; [facility] Signed CBC W/DIFF, AUTOMATED Collected: 05/13/2018 Status: F Source: [place] 5:00 AM [facility] Order Comment: SPECIMEN OBTAINED FROM LINE [...] Lymph 2.56 Performed By: #### L100.0100 #### [facility] [address] [place], [address] BASIC METABOLIC Collected: 05/13/2018 Status: F Source: [place] PROFILE ([facility]) 5:00 AM [facility] Order Comment: SPECIMEN OBTAINED FROM LINE [...] GAP 7 Performed By: #### L500.2500 #### [facility] [address] [facility] [place], [address] LACTIC ACID Collected: 05/13/2018 Status: F Source: [place] 5:00 AM [facility] [place] Order Comment: SPECIMEN OBTAINED FROM LINE DRAW Yes/No query for Sepsis Lactate Rule Y TYPE CODE TESTS RESULT OUT OF RANGE REFERENCE UNITS LAB L503.6005 0.4-2.0 mmol/L Normal LACTIC ACID 0.5 Performed By: #### L503.6005 #### [facility] [address] [place], [address] CBC-COMPLETE BLOOD CNT Collected: 05/12/2018 Status: F Source: [place] NO DIFF 5:40 AM [facility] [place] Order Comment: SPECIMEN OBTAINED FROM LINE [...] MPV 10.1 Performed By: #### L100.0500 #### [facility] [address] [place], [address] BASIC METABOLIC Collected: 05/12/2018 Status: F Source: [place] PROFILE (BMP) 5:40 AM [facility] [place] Order Comment: SPECIMEN OBTAINED FROM LINE [...] 7 Performed By: #### L500.2500, L506.0500 #### [facility] [address] [place], [address] PREALBUMIN Collected: 05/12/2018 Status: F Source: [place] 5:40 AM [facility] [place] Order Comment: SPECIMEN OBTAINED FROM LINE DRAW TYPE CODE TESTS RESULT OUT OF RANGE REFERENCE UNITS LAB L506.0500 20.0-40.0 mg/dL Normal PREALBUMIN 21.1 Performed By: #### L500.2500, L506.0500 #### [facility] [address] [place], [address] PANNUS Observed: 05/11/2018 Status: F Source: [place] 9:00 AM [facility] [place] Patient: ROSALIE HORNE : 1975 (42/F) Acct Num: [id number] Phys: Lawrence Jones Unit Num: [id number] Loc: MS3 DF712-3 Specimen: [id number] Received: 05/12/18832 Spec Type: PANNUS TISSUES TISSUES: [...] Sections do not reveal any mass lesion. Baker sections are submitted in four cassettes. / MOOK:jeromy 05/12/18 TC:2 CPT: 95063 HEADER OPERATION: Abdominal panniculectomy, debridement, ulcer, lower abdominal wall PRE-OP DIAGNOSIS: Panniculitis, severe sepsis TISSUE SUBMITTED: Abdominal wall abscess/tissue MICROSCOPIC DESCRIPTION Slides are reviewed. MICROSCOPIC DIAGNOSIS Abdominal wall abscess/tissue, panniculectomy: Pieces of skin with underlying tissue with focal ulceration, fat necrosis and associated inflammation. MOOK:jeromy 05/13/18 Signed Hang Chew 05/13/18 <signature on file> Performed By: #### PPANN #### [facility] [address] [facility] [place], [address] PROTHROMBIN TIME W/INR Collected: 05/11/2018 Status: F Source: [place] 5:25 AM [facility] [place] TYPE CODE TESTS RESULT OUT OF RANGE REFERENCE UNITS LAB L300.4150 11.7-14.9 SECONDS Normal PROTIME 13.8 LAB L300.4200 Normal INR 1.1 Performed By: #### L300.3900, L300.4310, L100.0100, L700.6800 #### [facility] [facility] [place], [address] PARTIAL THROMBOPLAST Collected: 05/11/2018 Status: F Source: [place] TIME 5:25 AM [facility] [place] TYPE CODE TESTS RESULT OUT OF RANGE REFERENCE UNITS LAB L300.4310 24.1-36.2 Seconds Normal PTT 30.9 Performed By: #### L300.3900, L300.4310, L100.0100, L700.6800 #### [facility] [address] [facility] [place], [address] CBC W/DIFF, AUTOMATED Collected: 05/11/2018 Status: F Source: [place] 5:25 AM [facility] TYPE CODE TESTS RESULT OUT OF [...] By: #### L300.3900, L300.4310, L100.0100, L700.6800 #### [facility] [address] [place], [place], [address] ,SERUM,HCG QUALI. Collected: Status: F Source: [place]IE 05/11/2018 5:25 AM [facility] [place] TYPE CODE TESTS RESULT OUT OF REFERENCE UNITS RANGE LAB L700.7000 0-9 Nonpreg Negative Normal HCGSQUAL NEGATIVE LAB L700.6700 =>Qualitative mIU/mL Normal HCG Qual < 1 triggr Performed By: #### L300.3900, L300.4310, L100.0100, L700.6800 #### [facility] [address] [place], [place], [address] BASIC METABOLIC Collected: 05/11/2018 Status: F Source: [place] PROFILE (BMP) 5:25 AM [facility] TYPE CODE TESTS RESULT OUT OF [...] 8 Performed By: #### L500.2500, L501.9520 #### [facility] [address] [place], [place], [address] THYROID STIM HORMONE Collected: 05/11/2018 Status: F Source: [place]IE (TSH) 5:25 AM [facility] [place] TYPE CODE TESTS RESULT OUT OF RANGE REFERENCE UNITS LAB L501.9520 0.358-3.74 uIU/mL High TSH 47.40 Performed By: #### L500.2500, L501.9520 #### [facility] [address] [place], [address] Observed: 05/11/2018 Status: F Source: [place] CULTURE, DEEP WOUND 12:00 AM [facility] Comments: 1) ABDOMINAL WALL ABSCESS/TISSUE Gram [...] 1 S (NF) indicates non-formulary drug at [facility]. Approval by Infectious Disease Specialist [...] 1 S (NF) indicates non-formulary drug at [facility]. Approval by Infectious Disease Specialist [...] Anaerococcus prevotii Performed By: #### M100.1500 #### [facility] [address] [place], [address] Observed: 05/11/2018 Status: F Source: EMLANIE HERNANDEZ, REMI W/ 12:00 AM [facility] [place] [id number] REPOSITORY Comments: 1) ABDOMINAL WALL ABSCESS/TISSUE Is this test to exclude patient from TB Isolation? N [facility]5932 TESTING PERFORMED AT [facility]. ORIGINAL REPORT ON FILE IN LAB CONTAINS ADDITIONAL TEST SITE INFORMATION. CUF No yeast or mold isolated after [address]136 TESTING PERFORMED AT [facility]. ORIGINAL REPORT ON FILE IN LAB CONTAINS ADDITIONAL TEST SITE INFORMATION. Fungus Stain No yeast or mold observed. Performed By: #### M600.1900 #### [facility] [address] [place], [address] CONSULTATION Observed: 05/10/2018 Status: F Source: [place] 10:59 PM [facility] [place] [facility] Medical Records Department [address] [place] [address] Consultation 05/07/18 1909 MR#: [id number] Acct: [id number] Name: ROSALIE HORNE Rep #: [id number] : 1975 42 From: Ynr Hendricks MD PCP: Franco Jacques DO Status: ADM IN Location: [facility] AP169-1 Reason for Consult Date of Consultation: 05/07/18 Reason for Consultation: Nonhealing infected ulcer lower anterior abdominal wall with massive panniculus and panniculitis. REFERRING PHYSICIAN: Dr. Mast. RIVET MACHINE OPERATOR: Dr. Hendricks. History of Present Illness: The patient is a 42 year old F with a history of morbid obesity and borderline diabetes who presented to the ED with worsening pain and redness and swelling in her massive abdominal panniculus with a nonhealing infected ulcer and panniculitis. She has been treated for her intermittent bouts of abdominal panniculitis, the most recent in [place]. Recently she was placed on oral antibiotics [...] anterior peritoneal are not included in the ldotd-lx-vfuc. Portion of a left anterior inferior abdominal [...] Sertraline HCl (Zoloft) 100 mg PO DAILY [facility] Home Medications: Ambulatory Orders Medication Instructions Recorded Lisinopril/Hydrochlorothiazide 1 tablet PO DAILY 03/08/18 [Zestoretic 10/12.5 Tablet] Loratadine [Claritin] 10 mg PO DAILY 03/08/18 Surgical History: - - 3, cholecystectomy, tonsillectomy. Psychiatric History: Anxiety, Depression DIRECTOR OF MIDWIFERY/STAFF MIDWIFE History: No pertinent DIRECTOR OF MIDWIFERY/STAFF MIDWIFE history Lives: With Family - Patient lives [...] surgery would be too high risk for [facility], then she would need to go to a tertiary center for further treatment. She states she has been in [place] before. Anticipate increased metabolic demands from her [...] center. Code Visit Inpatient E AND M: 74179 Init Hosp L2 - ICD-10 - L98.492, E65, M79.3, R73.03, L30.4, K43.2, E66.9 05/10/18 8750 <Electronically signed by Yrn Hendricks MD> Date Yrn Hendricks MD Cosigner Signature (if applicable): Date CC: Cuca Mast; Adonay Hollingsworth MD; Yrn Hendricks MD; Franco Jacques DO; Jared Ambrose DO; [facility] Signed Observed: 05/10/2018 Status: F Source: [place]ANIE CULTURE, DEEP WOUND 9:50 PM [facility] Gram Stain Gram Stain 2+ White [...] 1 S (NF) indicates non-formulary drug at [facility]. Approval by Infectious Disease Specialist required before non-formulary drugs may be ordered and/or dispensed. * CLSI guidelines does not recommend testing of cephalosporins. This interpretation is deduced from Beta-lactam/penicillin results. Cult, Anaerobic No anaerobic bacteria isolated. Performed By: #### M100.1500 #### [facility] [address] [facility] [place], [address] 12 LEAD ELECTROCARDIOGRAM Observed: 05/10/2018 Status: F Source: [place] 2:26 PM [facility] [place] [facility] [facility] Cardiovascular Services [address] [place] [address] 12 Lead EKG 05/06/18 1543 MR#: [id number] Acct: [id number] Name: ROSALIE HORNE Rep #: [id number] : 1975 42 From: Nathan Alva MD Attending Dr: Lawrence Jones Status: ADM IN Ordering Dr: Mercedes Bear MD Date: 05/06/18 Location: [facility] Sex: F C Admitted: 05/06/18 Test Reason : WOUND Blood Pressure : / mmHG Vent. Rate : 098 BPM Atrial Rate : 098 BPM P-R Int : 166 ms QRS Dur : 086 ms QT Int : 352 ms P-R-T Axes : 062 005 029 degrees QTc Int : 449 ms Normal sinus rhythm Normal ECG Confirmed by GRACIE GILMORE, NATHAN ([id number]), editor publications DON STANFORD ([id number]) on 05/10/2018 2:25:42 PM Referred By: FADY Confirmed By:NATHAN ALVA MD 05/10/18 1425 Date Nathan Alva MD CC: Mercedes Bear MD; Lawrence Jones; Franco Jacques DO Signed CONSULTATION Observed: 05/09/2018 Status: F Source: [place] 6:41 PM [facility] [place] [facility] Medical Records Department [address] [place] [address] Consultation 05/09/18 1836 MR#: [id number] Acct: [id number] Name: ROSALIE HORNE Rep #: [id number] : 1975 42 From: Adonay Hollingsworth MD PCP: Franco Jacques DO Status: ADM IN Y Location: [place] 932187-1 Problem List (1) Incisional hernia Status: Acute [...] of abdominal panniculitis, the most recent in [place]. Recently she was placed on oral antibiotics [...] anterior peritoneal are not included in the vgckq-lu-jvng. Portion of a left anterior inferior abdominal [...] 3, cholecystectomy, tonsillectomy. Psychiatric History: Anxiety, Depression DIRECTOR OF MIDWIFERY/STAFF MIDWIFE History: No pertinent DIRECTOR OF MIDWIFERY/STAFF MIDWIFE history Lives: With Family - Patient lives [...] be the best case scenario here. 05/09/18 071 <Electronically signed by Adnoay Hollingsworth MD> Date Adonay Hollingsworth MD Cosigner Signature (if applicable): Date CC: Adonay Hollingsworth MD; Yrn Hendricks MD; Franco Jacques DO Signed VANCOMYCIN, TROUGH Collected: 05/09/2018 Status: F Source: [place]IE LEVEL 3:30 PM [facility] Order Comment: Time Medication is to [...] (Ventilator/Healtcare Associated) -Sepsis PLEASE CONTACT PHARMACY SERVICES (#9199) FOR INTERPRETATION OF RESULTS. Performed By: #### L501.8820 #### [facility] [place], [address] BASIC METABOLIC Collected: 05/09/2018 Status: F Source: [place] PROFILE (BMP) 5:10 AM [facility] [place] TYPE CODE TESTS RESULT OUT OF [...] Performed By: #### L500.2500, L501.6710, L506.0500 #### [facility] [address] [facility] [address] [place], [place], [address] CRP Collected: 05/09/2018 Status: F Source: [place] 5:10 AM [facility] [place] TYPE CODE TESTS RESULT OUT OF RANGE REFERENCE UNITS LAB L501.6710 0.0-3.0 mg/L High 16.60 C-REACTIVE PROT Result Comment: C-Reactive Protein (CRP) provides useful information for the diagnosis, therapy and monitoring of inflammatory processes and associated diseases. For the evaluation of Relative Risk for Cardiovascular Disease, a High Sensitivity CRP (HSCRP) should be ordered. Performed By: #### L500.2500, L501.6710, L506.0500 #### [facility] [address] [facility] [address] [place], [place], [address] PREALBUMIN Collected: 05/09/2018 Status: F Source: [place] 5:10 AM [facility] [place] TYPE CODE TESTS RESULT OUT OF REFERENCE UNITS RANGE LAB L506.0500 20.0-40.0 mg/dL Low PREALBUMIN 17.3 Performed By: #### L500.2500, L501.6710, L506.0500 #### [facility] [address] [facility] [address] [place], [place], [address] ERYTHROCYTE SED RATE Collected: 05/09/2018 Status: F Source: [place] 5:10 AM [facility] [place] TYPE CODE TESTS RESULT OUT OF RANGE REFERENCE UNITS LAB L102.0000 0-20 mm/hr High SED RATE 40 Performed By: #### L101.9900 #### [facility] [address] [place], [address] MRSA WOUND DNA BY Collected: 05/08/2018 Status: F Source: MELANIE PCR 3:40 PM [facility] [place] REPOSITORY TYPE CODE TESTS RESULT OUT OF RANGE REFERENCE UNITS LAB L8200.1100 Negative Normal MRSA Negative RESULT LAB L8200.1150 Negative Normal SA RESULT NEGATIVE Performed By: #### L8200.1075 #### [facility] [address] [place], [address] VENOUS DUPLEX LOWER Observed: 05/08/2018 Status: F Source: [place] EXTREMITY 2:42 PM [facility] [facility] [place] [facility] Cardiovascular Services [address] [facility] [place] [address] Venous Duplex US, Unilateral 05/07/18 0833 MR#: [id number] Acct: [id number] Name: ROSALIE HORNE Rep #: [id number] : 1975 42 From: Beto Syed MD [...] Date Dictated: 05/07/1833 Date Transcribed: 05/08/18 144 Special Education Director: Signed ABDOMEN/PELVIS WITH Observed: 05/08/2018 Status: F Source: [place] CONTRAST 1:12 PM [facility] [facility] Imaging Services [address] [facility] [facility] [place] [address] Abdomen/Pelvis WITH Contrast MR#: [id number] Acct: [id number] Name: ROSALIE HORNE Rep #: [id number] : 1975 F 42 From: Bry Yoon MD PCP: Franco Jacques DO Status: ADM IN Study: Abdomen/Pelvis WITH Contrast Date of Exam: 05/08/18 Exam# [id number] Ordering Dr: Yrn Hendricks MD STUDY: CT [...] support , CC: Yrn Hendricks MD; Franco Jacuqes DO Special Education Director: Signed BASIC METABOLIC Collected: 05/08/2018 Status: F Source: [place] PROFILE (BMP) 6:18 AM [facility] [place] [facility] [place] TYPE CODE TESTS RESULT OUT OF [...] GAP 9 Performed By: #### L500.2500 #### [facility] [address] [facility] [place], [address] VANCOMYCIN, TROUGH Collected: 05/07/2018 Status: F Source: [place] LEVEL 9:53 PM [facility] [facility] [place] [facility] Order Comment: Time Medication is to [...] (Ventilator/Healtcare Associated) -Sepsis PLEASE CONTACT PHARMACY SERVICES (#[id number]) FOR INTERPRETATION OF RESULTS. Performed By: #### L501.8820 #### [facility] [address] [place], [address] BEDSIDE GLUCOSE Collected: 05/07/2018 Status: F Source: [place] 11:38 AM [facility] [place] [facility] [place] TYPE CODE TESTS RESULT OUT OF RANGE REFERENCE UNITS LAB L501.080 70-110 mg/dL Normal BEDSIDE GLU 93 Result Comment: MANAGEMENT OF PATIENT CARE PER NURSING PROTOCOL Performed By: #### L501.080 #### [facility] Point of Care [address] [facility] [address] [place], [place] [address] BEDSIDE GLUCOSE Collected: 05/07/2018 Status: F Source: [place] 6:39 AM [facility] [place] TYPE CODE TESTS RESULT OUT OF RANGE REFERENCE UNITS LAB L501.080 70-110 mg/dL Normal BEDSIDE GLU 102 Result Comment: MANAGEMENT OF PATIENT CARE PER NURSING PROTOCOL Performed By: #### L501.080 #### [facility] [place] [address] CBC W/DIFF, AUTOMATED Collected: 05/07/2018 Status: F Source: [place] 5:36 AM [facility] [place] [facility] [place] TYPE CODE TESTS RESULT OUT OF [...] Lymph 1.73 Performed By: #### L100.0100 #### [facility] [address] [facility] [place], [address] BASIC METABOLIC Collected: 05/07/2018 Status: F Source: [place] PROFILE (BMP) 5:36 AM [facility] [place] TYPE CODE TESTS RESULT OUT OF [...] GAP 10 Performed By: #### L500.2500 #### [facility] [address] [place], [address] BEDSIDE GLUCOSE Collected: 05/06/2018 Status: F Source: [place] 9:49 PM [facility] [place] TYPE CODE TESTS RESULT OUT OF RANGE REFERENCE UNITS LAB L501.080 70-110 mg/dL Normal BEDSIDE GLU 81 Result Comment: MANAGEMENT OF PATIENT CARE PER NURSING PROTOCOL Performed By: #### L501.080 #### [facility] Point of Care [address] [facility] [place] [address] LACTIC ACID Collected: 05/06/2018 Status: F Source: [place] 9:23 PM [facility] [facility] [place] TYPE CODE TESTS RESULT OUT OF RANGE REFERENCE UNITS LAB L503.6005 0.4-2.0 mmol/L Normal LACTIC ACID 1.1 Performed By: #### L503.6005 #### [facility] [address] [place], [address] HISTORY AND PHYSICAL Observed: 05/06/2018 Status: F Source: [place] EXAM 8:17 PM [facility] [place] [facility] Medical Records Department [address] [place] [address] History and Physical 05/06/181945 MR#: [id number] Acct: [id number] Name: ROSALIE HORNE Rep #: [id number] : 1975 42 From: Cuca Mast PCP: Franco Jacques DO Status: ADM IN Location: [address] Problem List (1) Panniculitis Status: Acute [...] Allergic Rhinitis, Hypothyroidism who presents to the [facility] ED on 05/06/18 with history of prolonged difficulties w/ abdominal wall/pannicular cellulitis most recently treated inpatient 2 months prior at [facility] with improvement; however, worsened again recently after [...] 3, cholecystectomy, tonsillectomy. Psychiatric History: Anxiety, Depression DIRECTOR OF MIDWIFERY/STAFF MIDWIFE History: No pertinent DIRECTOR OF MIDWIFERY/STAFF MIDWIFE history Lives: With Family - Patient lives [...] Allergic Rhinitis, Hypothyroidism who presents to the [facility] ED on 05/06/18 with history of prolonged difficulties w/ abdominal wall/pannicular cellulitis most recently treated inpatient 2 months prior at [facility] with improvement; however, worsened again recently w/ [...] habitus. Code Visit Inpatient E AND M: [id number] Init Hosp L3 05/06/18 2017 <Electronically signed by Cuca Mast > Date Cuca Mast Cosigner Signature: Date (if applicable) CC: Cuca Mast; Franco Jacques DO Signed EMERGENCY DEPARTMENT Observed: 05/06/2018 Status: F Source: [place] SUMMARY 7:49 PM [facility] [facility] [place] [facility] Medical Records Department [address] [place] [address] Emergency Department Summary 05/06/18 1533 MR#: [id number] Acct: [id number] Name: ROSALIE HORNE Rep #: [id number] : 1975 42 From: Mercedes Bear MD [...] wall cellulitis This note was generated with [employer] dictation software. It may contain incorrect words, [...] problems, contact your Primary Care Provider. Call [facility] ([phone]) or report to the closest Emergency Room. Call 911 if necessary. 05/06/181948 <Electronically signed by Mercedes Bear MD> Date Mercedes Bear MD Cosigner Signature (If Indicated): Date CC: Franco Jacques DO Observed: 05/06/2018 Status: F Source: [place] CULTURE, BLOOD (WB) 5:00 PM [facility] BC No growth in 5 days. Performed By: #### M200.1000 #### [facility] [address], [address] CBC W/DIFF, AUTOMATED Collected: 05/06/2018 Status: F Source: [place] 4:50 PM [facility] [place] TYPE CODE TESTS RESULT OUT OF [...] Lymph 2.75 Performed By: #### L100.0100 #### [facility] [address] [place], [place], [address] BASIC METABOLIC Collected: 05/06/2018 Status: F Source: [place] PROFILE (BMP) 4:50 PM [facility] [place] TYPE CODE TESTS RESULT OUT OF [...] GAP 5 Performed By: #### L500.2500 #### [facility] [address] [place], [place], [address] LACTIC ACID Collected: 05/06/2018 Status: F Source: [place] 4:50 PM [facility] [facility] [place] [facility] Order Comment: Yes/No query for Sepsis Lactate Rule Y TYPE CODE TESTS RESULT OUT OF REFERENCE UNITS RANGE LAB L503.6005 0.4-2.0 mmol/L High LACTIC ACID 2.2 Result Comment: Critical Result(s) Called at: 17:50:38 05/06/2018 by: Daina Almonte to onnors Performed By: #### L503.6005 #### [facility] [address] [place], [address] MAGNESIUM Collected: 05/06/2018 Status: F Source: [place] 4:50 PM [facility] [facility] [place] TYPE CODE TESTS RESULT OUT OF RANGE REFERENCE UNITS LAB L501.5200 1.6-2.6 mg/dL Normal MG 2.0 Performed By: #### L501.5200 #### [facility] [address] [place], [address] HEMOGLOBIN A1C Collected: 05/06/2018 Status: F Source: [place] 4:50 PM [facility] [place] TYPE CODE TESTS RESULT OUT OF RANGE REFERENCE UNITS LAB L501.9985 4.2-6.3 % Normal HGB A1C 5.7 Performed By: #### L501.9985 #### [facility] [address] [place], [address] Observed: 05/06/2018 Status: F Source: [place] CULTURE, BLOOD (WB) 4:50 PM [facility] [facility] BC No growth in 5 days. Performed By: #### M200.1000 #### [facility] [address] [place], [address] CHEST 1 VIEW Observed: 05/06/2018 Status: F Source: [place] (PORTABLE) 3:32 PM [facility] [place] Imaging Services [address] [place] [address] Chest 1 View (Portable) MR#: [id number] Acct: [id number] Name: ROSALIE HORNE Rep #: [id number] : 1975 F 42 From: Karthik Smart MD PCP: Franco Jacques DO Status: REG ER Study: Chest 1 View (Portable) Date of Exam: 05/06/18 Exam# [id number] Ordering Dr: Mercedes Baer MD STUDY: X-RAY CHEST REASON FOR EXAM: [...] CC: Mercedes Bear MD; Franco Jacques DO Special Education Director: Signed PROGRESS Observed: 05/06/2018 Status: COMPLETED Source: [place] 2:22 PM [facility] [place] REPOSIT[facility] HNO ID: [id number] Author: Trisha Marie (Cone Worker) Brittany Service: (none) Author Type: Nurse Practitioner [...] - verbalizes understanding and will go to [facility] ER. VASILIY Interiano Observed: 05/06/2018 Status: COMPLETED Source: [place] 2:00 PM [facility] REPOSITORY Office Visit (FAMPWS) ROSALIE HORNE ([id number]) 1975 F Date Time Provider Department 05/06/18 [...] - verbalizes understanding and will go to [facility] ER. Trisha Redding APRN.BATTERBOARD SETTER Referring Provider: TRISHA REDDING (BATTERBOARD SETTER) [[id number]] Allergies As of Date: 05/06/2018 Noted Allergy [...] 05/06/18 PROGRESS Observed: 03/31/2018 Status: COMPLETED Source: [place] 2:25 PM [facility] [place] REPOSITORY [facility] ID: [id number] Author: Trisha Marie (Alycia) Brittany Service: (none) [...] APRN.ALYCIA CNOV Observed: 03/31/2018 Status: COMPLETED Source: [place] 2:20 PM [facility] REPOSITORY Office Visit (FAMPWS) ROSALIE HORNE ([id number]) 1975 F Date Time Provider Department 03/31/18 [...] DOWNTIME REPORT Observed: 03/24/2018 Status: F Source: [place] 2:02 PM [facility] [place] [facility] Medical Records Department [address] [place] [address] Downtime Report MR#: [id number] Acct: [id number] Name: ROSALIE HORNE Rep #: [id number] : 1975 42 From: Steven Stanford MD PCP: Franco Jacques DO Status: DEP This patient was seen during an EMR downtime March 08, 2018 - March 15, 2018. This patient may have a combination of paper and electronic documentation or all paper documentation. All documentation is viewable within the e-chart portion of [employer] for each patient visit. CNOV Observed: 03/17/2018 Status: COMPLETED Source: [place] 1:20 PM [facility] REPOSITORY Office Visit (FAMPWS) ROSALIE HORNE ([id number]) 1975 F Date Time Provider Department 03/17/18 [...] problem. Admitted from 03/08/2018 to 2017 to [facility]. Was treated with IV antibiotics and sent [...] X 9 - SKIN BARRIER WIPES BOX IN 50 Trisha Redding APRN.CNP Referring Provider: SELF [...] 30 EachRfl: 1 SKIN BARRIER WIPES BOX IN 50 [[id number]] Order #: [id number] Prescriptions as of 03/17/2018 Sig: LANCETS Test [...] 03/17/18 PROGRESS Observed: 03/17/2018 Status: COMPLETED Source: [place] 1:15 PM [facility] REPOSITORY HNO ID: [id number] Author: Trisha Marie (Alycia) Brittany Service: (none) Author Type: Nurse Practitioner Type: Progress Notes Filed: 03/17/2018 1:54 PM Note Text: HPI/CC: Rosalie Horne is a 42 year old female who presents for hospital f/u d/t abdominal panis cellulitis. Cellulitis is a chronic recurrent problem. Admitted from 03/08/2018 to 2017 to [facility]. Was treated with IV antibiotics and sent [...] X 9 - SKIN BARRIER WIPES BOX IN 50 Trisha Redding APRN.BATTERBOARD SETTER [facility] Observed: 03/12/2018 Status: COMPLETED Source: [place] 4:11 PM [facility] [place] REPOS[facility] HNO ID: [id number] Author: Barb Reed Office Coord Service: (none) Author Type: (none) Type: Allied Health Filed: 03/12/2018 4:12 PM Note Text: PLANT OPERATIONS VICE PRESIDENT NOTE SERVICE DATE: 03/12/2018 SERVICE TIME: 4:11 PM Home Care consult ordered by Sanjay Alarcon DO SIGNATURE: Barb Reed Office Coord PATIENT NAME: Rosalie Horne DATE: March 12, 2018 TIME: 4:11 PM ALLIED HEALTH Observed: 03/12/2018 Status: COMPLETED Source: [place] 3:41 PM [facility] [place] REPOS[facility] HNO ID: [id number] Author: Dina VickRn) JENIFER Thomas Service: Home Care Services Author Type: Registered Nurse Type: Allied Health Filed: 03/12/2018 3:49 PM Note Text: PLANT OPERATIONS VICE PRESIDENT NOTE SERVICE DATE: 03/12/2018 SERVICE TIME: 3:42 PM Discharge: Aware of Discharge home today Physician order placed for Home Care Services Home Care Agency: [facility] Start of care date: Patient/Family agree to discharge plan: SIGNATURE: Dina Thomas RN PATIENT NAME: Rosalie Horne DATE: March 12, 2018 TIME: 3:41 PM CNDS Observed: 03/12/2018 Status: COMPLETED Source: [place] 3:10 PM CLINIC OTHER CAMPUS REPOSITORY O ID: [id number] Author: Sanjay Alarcon Service: Hospital Medicine Author [...] Height: General: AANDOx3, NAD, Cooperative CV: RRR, [id number], no murmurs Resp: CTA b/l, no wheeze [...] 2018 TIME: 3:10 PM PAGER/CONTACT #: [facility] Observed: 03/12/2018 Status: COMPLETED Source: [place] 2:29 PM [facility] OTHER CAMPUS REPOSITORY [facility] ID: [id number] Author: Dina Adame) JENIFER Granados Service: Home Care Services Author Type: Registered Nurse Type: Allied Health Filed: 03/12/2018 2:30 PM Note Text: PLANT OPERATIONS VICE PRESIDENT NOTE SERVICE DATE: 03/12/2018 SERVICE TIME: 2:29 PM Patient Choice: Spoke with patient at bedside. Discussed home health care services. Patient given a choice - chose [facility] or first available. Discussed homebound requirements with pt. SIGNATURE: Dina Granados RN PATIENT NAME: Rosalie Horne DATE: March 12, 2018 TIME: 2:29 PM PROGRESS Observed: 03/12/2018 Status: COMPLETED Source: [place] 11:52 AM CLINIC OTHER CAMPUS REPOSITORY HNO ID: [id number] Author: Candido Benjamin III Service: Infectious Disease [...] on discharge instructions please have her call [phone] the week of 03/22 so she and I can discuss. 3) Needs to lose weight Ok for discharge from my standpoint. Will sign off SIGNATURE: Candido Benjamin III, MD PATIENT NAME: Rosalie Horne DATE: March 12, 2018 TIME: 11:57 AM PAGER/CONTACT #: [phone] CASE MANAGEM Observed: 03/12/2018 Status: COMPLETED Source: [place] 10:55 AM CLINIC OTHER CAMPUS REPOSITORY HNO ID: [id number] Author: Ctahy (Rn) JENIFER Crouch Service: Care Management Author Type: Registered Nurse Type: Care Mgt Progress Note Filed: 03/12/2018 10:56 AM Note Text: CARE MANAGEMENT PROGRESS NOTE SERVICE DATE: 03/12/2018 SERVICE TIME: 1055 LOS: 4 days Needs Prior to Discharge: Home Care Order Discharge plan remains return to home when medically stable. [facility] following for SN at discharge to assist with wound care/teaching; patient reports daughter is able to assist/learn. Per ID-awaiting final wound cultures to determine discharge antibiotics; Dr Benjamin states he anticipates oral antibiotic needed. No new discharge needs noted at this time. SIGNATURE: Cathy Crouch RN PATIENT NAME: Rosalie Horne DATE: March 12, 2018 TIME: 10:55 AM PAGER/CONTACT #: [phone] GLUCOSE METER Collected: 03/12/2018 Status: F Source: [facility] 6:58 AM HEALTH SYSTEM REPOSITORY TYPE CODE TESTS RESULT OUT OF REFERENCE UNITS RANGE LAB GLUBL(LOINC 70-99 mg/dL ) Glucose Meter 97 Result Comment: RN NOTIFIED Performed By: #### GLMET #### [place] [address] HEMOGRAM Collected: 03/12/2018 Status: F Source: [facility] 4:20 AM HEALTH SYSTEM REPOSITORY TYPE [...] MPV 10.3 Performed By: #### CBC1 #### [facility] [address] [place] [address] BASIC PANEL Collected: 03/12/2018 Status: F Source: [facility] 4:20 AM HEALTH SYSTEM REPOSITORY TYPE [...] Gap 8 Performed By: #### P8 #### [place] [address] MDRD GFR Collected: 03/12/2018 Status: F Source: [facility] 4:20 AM HEALTH SYSTEM REPOSITORY TYPE CODE TESTS RESULT OUT OF RANGE REFERENCE UNITS LAB GFRFN(LOINC >60mL/min/1.73m ) 2 eGFR 57.91 Result Comment: If the patient is , multiply the result by 1.210. Performed By: #### GFR #### [facility] [address] [place], [place] [address] GLUCOSE METER Collected: 03/11/2018 Status: F Source: [facility] 9:55 PM HEALTH SYSTEM REPOSITORY TYPE CODE TESTS RESULT OUT OF REFERENCE UNITS RANGE LAB GLUBL(LOINC 70-99 mg/dL ) High Glucose Meter 111 Result Comment: RN NOTIFIED Performed By: #### GLMET #### [place] [id number] NURSING PROG Observed: 03/11/2018 Status: COMPLETED Source: [place] 1:29 PM [facility] REPOSITORY HNO ID: [id number] Author: Rosibel Adame) JENIFER Feliciano Service: Nursing Author Type: Registered Nurse Type: Nursing Progress Note Filed: 03/11/2018 1:32 PM Note Text: Nursing Progress Note Patient Name: Rosalie Horne Patient Location: [place] [id number] Event(s) / Intervention Note: The patient was [...] RN PROGRESS Observed: 03/11/2018 Status: COMPLETED Source: [place] 11:41 AM [facility] REPOSITORY HNO ID: [id number] Author: Aj You MD Service: Hospital Medicine [...] #: PROGRESS Observed: 03/11/2018 Status: COMPLETED Source: [place] 10:22 AM CLINIC OTHER CAMPUS REPOSITORY HNO ID: [id number] Author: Candido Benjamin III Service: Infectious Disease [...] 11, 2018 TIME: 10:48 AM PAGER/CONTACT #: [phone] NUTRITION Observed: 03/11/2018 Status: COMPLETED Source: [place] 9:34 AM CLINIC OTHER CAMPUS REPOSITORY HNO ID: [id number] Author: Kendra Warren RD Service: Nutrition Therapy [...] a 42 year old female presenting from [facility] for a possible incarcerated hernia and chronic [...] AND 2007 - CHOLECYSTECTOMY - EGD W/O [facility] SPECIMEN W/BX 04/11/13 mild gastritis - MIDLINE CATHETER 01/31/2016 - TONSILLECTOMY HX 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 She reports having a Boost High Protein [...] kg (420 lb) Adjusted Body Weight: 93.9 Gordon Body Weight: 47.7 kgkg Resting Metabolic Rate: 2921 Estimated kilocalorie needs: 1880 - 2350 kilocalories determined by 20-25 kcal/kg Adjusted Body Weight - used ABW due to risk of underfeeding. Estimated protein needs: 62-81 grams determined by 1.3-1.7 g/kg Gordon weight Estimated fluid needs: 1880+ milliliters based [...] March 11, 2018 TIME: 9:34 AM PAGER: [phone] CASE MANAGEM Observed: 03/11/2018 Status: COMPLETED Source: [place] 8:55 AM CLINIC OTHER CAMPUS REPOSITORY HNO ID: [id number] Author: Cathy (Rn) JENIFER Crouch Service: Care [...] remains return to home when medically stable. [facility] following for SN at discharge to assist with wound care/teaching; patient reports daughter is able to assist/learn. No new discharge needs noted at this time. SIGNATURE: Cathy Crouch RN PATIENT NAME: Rosalie Horne DATE: March 11, 2018 TIME: 8:55 AM PAGER/CONTACT #: [phone] GLUCOSE METER Collected: 03/11/2018 Status: F Source: [facility] 7:15 AM HEALTH SYSTEM REPOSITORY TYPE CODE TESTS RESULT OUT OF REFERENCE UNITS RANGE LAB GLUBL(LOINC 70-99 mg/dL ) Glucose Meter 84 Result Comment: RN NOTIFIED Performed By: #### GLMET #### [place] [address] COMPREHENSIVE PANEL Collected: 03/11/2018 Status: F Source: [facility] 5:20 AM HEALTH SYSTEM REPOSITORY TYPE [...] Gap 8 Performed By: #### P14 #### [facility] [address] [place] [address] MDRD GFR Collected: 03/11/2018 Status: F Source: [facility] 5:20 AM HEALTH SYSTEM REPOSITORY TYPE CODE TESTS RESULT OUT OF RANGE REFERENCE UNITS LAB GFRFN(LOINC >60mL/min/1.73m ) 2 eGFR 56.04 Result Comment: If the patient is , multiply the result by 1.210. Performed By: #### GFR #### [facility] [address] [place] [address] HEMOGRAM/DIFF Collected: 03/11/2018 Status: F Source: [facility] 3:20 AM HEALTH SYSTEM REPOSITORY TYPE [...] 2.84 LAB MONON(LOIN 0.27-0.70 thou/cmm C) Abs. [place] 0.68 LAB EOSN(LOINC 0.00-0.31 thou/cmm ) Abs. High Eosin 0.41 LAB BASON(LOIN 0.01-0.08 thou/cmm C) Abs. Baso 0.06 Performed By: #### CBCD1 #### [place] [address] GLUCOSE METER Collected: 03/10/2018 Status: F Source: [facility] 9:08 PM HEALTH SYSTEM REPOSITORY TYPE CODE TESTS RESULT OUT OF REFERENCE UNITS RANGE LAB GLUBL(LOINC 70-99 mg/dL ) Glucose Meter 99 Result Comment: RN NOTIFIED Performed By: #### GLMET #### [place] [address] ALLIED HEALTH Observed: 03/10/2018 Status: COMPLETED Source: [place] 3:21 PM [facility] OTHER CAMPUS REPOSITORY HNO ID: [id number] Author: Barb Reed Office Coord Service: (none) Author Type: (none) Type: Allied Health Filed: 03/10/2018 3:21 PM Note Text: PLANT OPERATIONS VICE PRESIDENT NOTE SERVICE DATE: 03/10/2018 SERVICE TIME: 3:21 PM Referral: Home Care referral received by: CM Will continue to follow for physician orders SIGNATURE: Barb Reed Office Coord PATIENT NAME: Rosalie Horne DATE: March 10, 2018 TIME: 3:21 PM CASE MANAGEM Observed: 03/10/2018 Status: COMPLETED Source: [place] 2:26 PM CLINIC OTHER CAMPUS REPOSITORY HNO ID: [id number] Author: Cathy (Rn) JENIFER Crouch Service: Care Management Author Type: Registered Nurse Type: Care Mgt Progress Note Filed: 03/10/2018 2:30 PM Note Text: CARE MANAGEMENT PROGRESS NOTE SERVICE DATE: 03/10/2018 SERVICE TIME: 1425 LOS: 2 days Needs Prior to Discharge: Home Care Order Met with patient at bedside--patient requesting [facility] SN for wound care/instructions at discharge, states daughter is available to learn/assist; current dressing changes and wound care are new for patient. [facility] Coordinator notified to follow. SIGNATURE: Cathy Crouch RN PATIENT NAME: Rosalie Horne DATE: March 10, 2018 TIME: 2:26 PM PAGER/CONTACT #: [phone] PROGRESS Observed: 03/10/2018 Status: COMPLETED Source: [place] 1:45 PM [facility] REPOSITORY HNO ID: [id number] Author: Candido Benjamin III Service: Infectious Disease [...] March 10, 2018 TIME: 1:45 PM PAGER: [phone] PROGRESS Observed: 03/10/2018 Status: COMPLETED Source: [place] 12:47 PM CLINIC OTHER CAMPUS REPOSITORY HNO ID: [id number] Author: Aj You MD Service: Hospital Medicine [...] GLUCOSE METER Collected: 03/10/2018 Status: F Source: [facility] 7:06 AM HEALTH SYSTEM REPOSITORY TYPE CODE TESTS RESULT OUT OF REFERENCE UNITS RANGE LAB GLUBL(LOINC 70-99 mg/dL ) Glucose Meter 92 Result Comment: RN NOTIFIED Performed By: #### GLMET #### [facility] [address] [place], [place] [address] GLUCOSE METER Collected: 03/09/2018 Status: F Source: [facility] 9:41 PM HEALTH SYSTEM REPOSITORY TYPE CODE TESTS RESULT OUT OF REFERENCE UNITS RANGE LAB GLUBL(LOINC 70-99 mg/dL ) High Glucose Meter 100 Result Comment: RN NOTIFIED Performed By: #### GLMET #### [facility] [address] [place], [place] [address] CASE MGT INIT Observed: 03/09/2018 Status: COMPLETED Source: [facility] 2:52 PM CLINIC OTHER CAMPUS REPOSITORY HNO ID: [id number] Author: Cathy (Rn) JENIFER Crouch Service: Care Management Author Type: Registered Nurse Type: Care Mgt Initial Assessment Filed: 03/09/2018 3:07 PM Note Text: CARE MANAGEMENT: ASSESSMENT AND DISCHARGE PLAN SERVICE DATE: 03/09/2018 SERVICE TIME: 1425 PRIMARY CARE PHYSICIAN: Franco Bardales DO ADMISSION STATUS: Inpatient Needs Prior to Discharge: None MEDICAL: Patient/Baker Stated Goals: I want to have surgery for this mass. Health Insurance: [facility] MEDICAID Health Issues Impacting Discharge Plan: [...] Walker Has the Patient Been in a Detention Facility in the Past 30 days? No [...] 0 I feel financially burdened by my ibz-sg-fbspog expenses for my prescription medication: Disagree somewhat [...] 09, 2018 TIME: 2:53 PM PAGER/CONTACT #: [phone] PROGRESS Observed: 03/09/2018 Status: COMPLETED Source: [place] 1:29 PM CLINIC OTHER CAMPUS REPOSITORY HNO ID: [id number] Author: Aj You MD Service: Hospital Medicine [...] PAGER/CONTACT #: Observed: 03/09/2018 Status: F Source: [facility] 12:30 PM HEALTH SYSTEM AND AER REPOSITORY Test performed at [facility] Few Mixed skin landon. No further identification to follow. Plates will be held for 5 days. Few Mixed anaerobic landon. No further identification to follow. Plates will be held for 5 days. Few WBC No organisms seen ORGANISM: Escherichia coli (ID: 1) Rare Performed By: #### C_ANA #### 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 [place] 0.27 - 0.70 thou/cmm 0.63 0.56 Abs. [...] 11 HCG Qualitative, Urine Negative Negative Specific Howard, Ur 1.005 - 1.030 1.012 Lactic Acid [...] March 09, 2018 TIME: 12:04 PM PAGER: [phone] CONSULT PROG Observed: 03/09/2018 Status: COMPLETED Source: [place] 10:12 AM [facility] OTHER CAMPUS REPOSITORY O ID: [id number] Author: Gely Olson Service: Wound Care Team [...] found in scanned documents. SIGNATURE: HAMMAD Yo, ANNEMAREI PATIENT NAME: Rosalie Horne DATE: March 09, 2018 TIME: 10:12 AM CONTACT#: [id number] CASE MANAGEM Observed: 03/09/2018 Status: COMPLETED Source: [place] 7:38 AM [facility] REPOSITORY HNO ID: [id number] Author: Cathy Adame) JENIFER Crouch Service: Care Management Author Type: [...] follow for discharge planning needs. SIGNATURE: Cathy Crouhc RN PATIENT NAME: Rosalie Horne DATE: March 09, 2018 TIME: 7:38 AM PAGER/CONTACT #: [phone] GLUCOSE METER Collected: 03/09/2018 Status: F Source: [facility] 6:54 AM HEALTH SYSTEM REPOSITORY TYPE CODE TESTS RESULT OUT OF REFERENCE UNITS RANGE LAB GLUBL(LOINC 70-99 mg/dL ) Glucose Meter 93 Result Comment: RN NOTIFIED Performed By: #### GLMET #### [place] [address] PROGRESS Observed: 03/09/2018 Status: COMPLETED Source: [place] 6:15 AM [facility] REPOSITORY HNO ID: [id number] Author: Diana Hyman Service: General Surgery Author [...] note and agree. Cole Calle MD, FACS, [facility] Emergency General Surgery Service Pager: For questions or concerns Mon-Fri 6a-5p please page [phone]. After 5pm and on Weekends and Holidays, please page [phone] if in ICU or [phone] if on RNF. General Surgery Progress Note [...] 03/08/18699 - 03/09/1865803/09/18699 - 03/10/18 0659 Shift 4533-0531 9916-1980 9775-0658 24 Hour Total 4911-4124 8620-0951 8290-8398 24 Hour Total I N T A K E PO 360 360 PO 360 360 IV 4152 129 1141 NS 0.9% 1000 1000 Vancomycin IV 200 200 Cefazolin IV 100 100 Shift Total 3506 444 0551 O U T P U T Urine 010 664 6297 Void (ml) 500 049 0639 Shift Total 728 640 3574 Weight (kg) 233.1 232.4 232.4 232.4 232.4 [...] Pager: HEMOGRAM Collected: 03/09/2018 Status: F Source: [facility] 3:04 AM HEALTH SYSTEM REPOSITORY TYPE [...] MPV 10.4 Performed By: #### CBC1 #### [place] [address] BASIC PANEL Collected: 03/09/2018 Status: F Source: [facility] 3:04 AM HEALTH SYSTEM REPOSITORY TYPE [...] Gap 11 Performed By: #### P8 #### [place] [address] MDRD GFR Collected: 03/09/2018 Status: F Source: [facility] 3:04 AM HEALTH SYSTEM REPOSITORY TYPE CODE TESTS RESULT OUT OF RANGE REFERENCE UNITS LAB GFRFN(LOINC >60mL/min/1.73m ) 2 eGFR >60 Result Comment: If the patient is , multiply the result by 1.210. Performed By: #### GFR #### [place] [address] GLUCOSE METER Collected: 03/08/2018 Status: F Source: [facility] 9:33 PM HEALTH SYSTEM REPOSITORY TYPE CODE TESTS RESULT OUT OF REFERENCE UNITS RANGE LAB GLUBL(LOINC 70-99 mg/dL ) Glucose Meter 89 Result Comment: RN NOTIFIED Performed By: #### GLMET #### [place] [address] HEMOGRAM/DIFF Collected: 03/08/2018 Status: F Source: [facility] 8:40 PM HEALTH SYSTEM REPOSITORY TYPE [...] 2.98 LAB MONON(LOIN 0.27-0.70 thou/cmm C) Abs. [place] 0.56 LAB EOSN(LOINC 0.00-0.31 thou/cmm ) Abs. Eosin 0.24 LAB BASON(LOIN 0.01-0.08 thou/cmm C) Abs. Baso 0.03 Performed By: #### CBCD1 #### [address] [address] BASIC PANEL Collected: 03/08/2018 Status: F Source: [facility] 8:40 PM HEALTH SYSTEM REPOSITORY TYPE [...] Gap 9 Performed By: #### P8 #### [facility] [address] [address] MDRD GFR Collected: 03/08/2018 Status: F Source: [facility] 8:40 PM HEALTH SYSTEM REPOSITORY TYPE CODE TESTS RESULT OUT OF RANGE REFERENCE UNITS LAB GFRFN(LOINC >60mL/min/1.73m ) 2 eGFR >60 Result Comment: If the patient is , multiply the result by 1.210. Performed By: #### GFR #### [facility] [address] [address] GLUCOSE METER Collected: 03/08/2018 Status: F Source: [facility] 7:50 PM HEALTH SYSTEM REPOSITORY TYPE CODE TESTS RESULT OUT OF REFERENCE UNITS RANGE LAB GLUBL(LOINC 70-99 mg/dL ) Glucose Meter 81 Result Comment: RN NOTIFIED Performed By: #### GLMET #### [place] [address] CONSULT Observed: 03/08/2018 Status: COMPLETED Source: [place] 4:42 PM CLINIC OTHER CAMPUS REPOSITORY HNO ID: [id number] Author: Yvonne Zendejas Service: General Surgery Author Type: Resident Type: Consults Filed: 03/08/2018 5:16 PM Note Text: Attestation signed by Cole Calle at 03/08/2018 5:31 PM Hernia defect 4 cm and is reduced. 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 Will follow. I saw and evaluated the patient. I reviewed the resident's note and agree. Cole Calle MD, [facility], [facility] CONSULT: EGS SERVICE SERVICE DATE: [...] her weight. Was initially worked up at [facility] where she had a CT showing an [...] please page [phone] if in ICU or [phone] if on RNF. SIGNATURE: Yvonne Zendejas MD PATIENT NAME: Rosalie Horne DATE: March 08, 2018 TIME: 4:42 PM PAGER: [phone] PLAN OF CARE Observed: 03/08/2018 Status: COMPLETED Source: [place] 3:42 PM [facility] OTHER CAMPUS REPOSITORY O ID: [id number] Author: Dwight Baires (Touch Up Painter Hand) Service: (none) Author Type: Loom Fixer Helper Type: Plan of Care Filed: 03/08/2018 3:45 PM Note Text: MEDICATION HISTORY Patient Name:Felton Horne : 1975 Source of history:Patient: Reliability of source: Appears reliable, clearly identified: Medication name, Medication dose, Medication route and Medication frequency and Pharmacy records: [facility] [phone] Medication Nonadherence Identified: Cost The above information [...] - Penicillins GI Upset Preferred Pharmacy: [facility] [phone] 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 ED NOTE Observed: 03/08/2018 Status: COMPLETED Source: [place] 3:25 PM [facility] REPOSITORY HNO ID: [id number] Author: Betsy VickRn) JENIFER Alfaro Service: Emergency Medicine Author Type: Registered Nurse Type: ED Notes Filed: 03/08/2018 3:26 PM Note Text: Patient returned to the Emergency Department. URINE HCG, QUAL. Collected: 03/08/2018 Status: F Source: [facility] 1:50 PM HEALTH SYSTEM REPOSITORY TYPE CODE TESTS RESULT OUT OF REFERENCE UNITS RANGE LAB URHCG(LOIN Negative C) HCG, Qual. Negative Urine LAB SPGR(LOINC 1.005-1.030 ) Specific 1.012 Howard, Ur Performed By: #### HCGUR #### [place] [address] ED NOTE Observed: 03/08/2018 Status: COMPLETED Source: [place] 1:49 PM CLINIC OTHER CAMPUS REPOSITORY HNO ID: [id number] Author: Angela (Rn) JENIFER Kimble Service: Emergency Medicine Author Type: Registered Nurse Type: ED Notes Filed: 03/08/2018 1:49 PM Note Text: Clean catch urine specimen obtained and sent. HISTORY PHYSICAL Observed: 03/08/2018 Status: COMPLETED Source: [place] 12:42 PM [facility] OTHER CAMPUS REPOSITORY HNO ID: [id number] Author: Aj You MD Service: Hospital Medicine [...] abdominal wound infection, she was sent from [place] for possible incarcerated hernia. Per patient she went to [place] earlier today for 1 hour of severe [...] ED NOTE Observed: 03/08/2018 Status: COMPLETED Source: [place] 12:21 PM [facility] REPOSITORY HNO ID: [id number] Author: Betsy VickRn) JENIFER Alfaro Service: Emergency Medicine Author Type: Registered Nurse Type: ED Notes Filed: 03/08/2018 12:22 PM Note Text: Pt upset as the doctor told her they are going to prescribe ATBs and not perform surgery. Pt upset and tearful; emotional support given. ED NOTE Observed: 03/08/2018 Status: COMPLETED Source: [place] 11:22 AM [facility] REPOSITORY HNO ID: [id number] Author: Betsy VickRn) JENIFER Alfaro Service: Emergency Medicine Author Type: Registered Nurse Type: ED Notes Filed: 03/08/2018 11:23 AM Note Text: Surgery resident at bedside; ok to cancel visual acuity test. ED NOTE Observed: 03/08/2018 Status: COMPLETED Source: [place] 10:55 AM [facility] REPOSITORY HNO ID: [id number] Author: Betsy VickRn) JENIFER Alfaro Service: Emergency Medicine Author Type: Registered Nurse Type: ED Notes Filed: 03/08/2018 11:10 AM Note Text: Informed Dr Franco and Joey that pt's weight is 514lbs which is over the weight limit for our CT scanners. HEMOGRAM/DIFF Collected: 03/08/2018 Status: F Source: [facility] 9:45 AM HEALTH SYSTEM REPOSITORY TYPE [...] 2.25 LAB MONON(LOIN 0.27-0.70 thou/cmm C) Abs. [place] 0.63 LAB EOSN(LOINC 0.00-0.31 thou/cmm ) Abs. Eosin 0.29 LAB BASON(LOIN 0.01-0.08 thou/cmm C) Abs. Baso 0.04 Result Comment: Smear scanned; tech agrees with automated differential Performed By: #### CBCD1 #### [place] [address] LACTIC ACID Collected: 03/08/2018 Status: F Source: [facility] 9:45 AM HEALTH SYSTEM REPOSITORY TYPE CODE TESTS RESULT OUT OF REFERENCE UNITS RANGE LAB LAC(LOINC) 0.4-2.0 mEq/L Lactic Acid 1.4 Performed By: #### LAC #### [place] [address] ED PROV NOTE Observed: 03/08/2018 Status: COMPLETED Source: [place] 9:13 AM CLINIC OTHER CAMPUS REPOSITORY HNO ID: [id number] Author: Jerry Franco MD Service: Emergency Medicine [...] Abdominal Pain: Pt is a transfer from [place] with a ? incarcerated hernia. 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 Per patient she went to [place] earlier today for 1 hour of severe [...] Could not obtain CT on CD from [place] despite multiple calls as their system is down. Could not obtain CT here as pt is 514 lbs, max is 500. Surgery resident and attending at [facility], able to reduce hernia. They recommend admission for IV Abx for cellulitis, but no further surgical intervention. Our Labs: CBC - leukocytosis 14.72, Hgb 10.9 MCV 93.5, ANC 11.42 Lactic- 1.4 Outside hospital labs: Lactic 1.4 CMP - BUN 10, Creat 1.03, remainder grossly unremarkable Pt has PCP but Medicaid, therefore House paged. Capped. Spoke with AJ Amaya of [facility] who agrees to admission. Will start Vanc [...] resident. 42-year-old female was a transfer from [facility] for surgical evaluation of an incarcerated wall [...] a large pannus. Normal bowel sounds Signature: Naivn Cook MD Date: 03/08/2018 Time: 10:33 AM Jerry (Res) MD Salvador Resident 03/08/18 1239 Navin Cook MD 03/10/18 1427 ED NOTE Observed: 03/08/2018 Status: COMPLETED Source: [place] 8:36 AM CLINIC OTHER CAMPUS REPOSITORY HNO ID: [id number] Author: Drew (Medic) Ania Mas Service: (none) Author Type: Lehr Operator and Loom Fixer Helper Type: ED Notes Filed: 03/08/2018 8:36 AM Note Text: Bed: ED-32 Expected date: 03/08/18 Expected time: 8:18 AM Means of arrival: [facility] Comments: [facility] transfer CBC W/DIFF, AUTOMATED Collected: 03/08/2018 Status: F Source: [place] 2:25 AM [facility] [place] TYPE CODE TESTS RESULT OUT OF [...] Lymph 2.30 Performed By: #### L100.0100 #### [facility] [address] [place], [address] BASIC METABOLIC Collected: 03/08/2018 Status: F Source: [place] PROFILE (BMP) 2:25 AM [facility] [place] TYPE CODE TESTS RESULT OUT OF [...] Performed By: #### L500.2500, L500.3400, L501.2450 #### [facility] [address] [place], [place], [id number] LIVER PROFILE Collected: 03/08/2018 Status: F Source: [place] 2:25 AM [facility] [place] TYPE CODE TESTS RESULT OUT OF [...] Performed By: #### L500.2500, L500.3400, L501.2450 #### [facility] [address] [place], [place], [id number] LIPASE Collected: 03/08/2018 Status: F Source: [place] 2:25 AM [facility] [place] TYPE CODE TESTS RESULT OUT OF RANGE REFERENCE UNITS LAB L501.2450 73-393 U/L Normal LIPASE 168 Performed By: #### L500.2500, L500.3400, L501.2450 #### [facility] [address] [place], [place], [address] PROTHROMBIN TIME W/INR Collected: 03/08/2018 Status: F Source: [place] 2:25 AM [facility] [place] TYPE CODE TESTS RESULT OUT OF RANGE REFERENCE UNITS LAB L300.4150 11.7-14.9 SECONDS Normal PROTIME 12.6 LAB L300.4200 Normal INR 0.9 Performed By: #### L300.3900 #### [facility] [address] [place], [address] TYPE AND SCREEN Collected: 03/08/2018 Status: F Source: [place] 2:25 AM [facility] [place] Order Comment: RESULT(S) PREVIOUSLY REPORTED ON MANUAL REQUISITION DURING DOWNTIME. Reason for Type AND Screen/Red Cells: SURGERY TYPE CODE TESTS RESULT OUT OF RANGE REFERENCE UNITS LAB B10.0800 A Normal BLOOD TYPE GEL POSITIVE LAB B100.4000 Normal Antibody NEGATIVE Screen Performed By: #### B101.7450 #### [facility] [address] [place], [address] LACTIC ACID Collected: 03/08/2018 Status: F Source: [place] 2:25 AM [facility] Order Comment: Yes/No query for Sepsis Lactate Rule Y TYPE CODE TESTS RESULT OUT OF RANGE REFERENCE UNITS LAB L503.6005 0.4-2.0 mmol/L Normal LACTIC ACID 1.4 Performed By: #### L503.6005 #### [facility] [address] [place], [address] ABDOMEN/PELVIS WITHOUT Observed: 03/08/2018 Status: F Source: [place] CONT 12:56 AM [facility] Imaging Services [address] [place] [address] Abdomen/Pelvis without Cont MR#: [id number] Acct: [id number] Name: ROSALIE HORNE Tara Rep #: [id number] : 1975 F 42 From: Marisol Harris MD PCP: Franco Jacques DO Status: REG ER Study: Abdomen/Pelvis without Cont Date of Exam: 03/08/18 Exam# [id number] Ordering Dr: Xiomara Bynum DO STUDY: CT [...] tissue is not imaged. There is poor qhyfiv-ik-jzqyk ratio limiting the examination. The anterior abdominal [...] anterior peritoneal are not included in the sffcj-fq-iaur. Portion of a left anterior inferior abdominal wall hernia with an opening of 4.5 cm containing small bowel is imaged. No overt colonic or small bowel obstruction, ascites or pneumoperitoneum on submitted images. Hepatomegaly and hepatic steatosis. Cholecystectomy. Nonobstructing left inferior renal pole calculus. Electronically Signed: Marisol Steven, MD at 2:52 EDT , Service support , CC: Franco Jacques DO; Xiomara Bynum DO Special Education Director: Signed CNCO Observed: 02/15/2018 Status: COMPLETED Source: [place] 2:41 PM [facility] REPOSITORY HNO ID: [id number] Author: Mammography Coordinator Service: (none) Author Type: Physician Type: Letter Filed: 02/16/2018 11:32 PM Note Text: February 15, 2018 PID: [id number] Rosalie Lazara Coleen [address] [place] [address] Dear Ms. Horne, We are pleased to [...] report will be kept on file at [facility] as part of your permanent medical record and are available for your continuing care. Thank you for allowing us to help in meeting your health care needs. Sincerely, Dr. Carmona Interpreting Radiologist [facility] (Normal over 40) [facility] SCREENING Observed: 02/15/2018 Status: F Source: [place] 1:29 PM [facility] [place] REPOSITORY * * *Final Report* * * DATE OF EXAM: Feb 15 2018 1:29PM [facility] - [facility] SCREENING / PROCEDURE REASON: Encounter for screening mammogram for malignant neoplasm of breast * * * * Physician Interpretation * * * * RESULT: #[id number] - [facility] SCREENING BILATERAL DIGITAL SCREENING MAMMOGRAM WITH CAD: 02/15/2018 HISTORY: Encounter For Screening Mammogram For Malignant Neoplasm Of Breast. RESULT: TECHNIQUE: The study was acquired using full field digital technology and interpreted from soft copy. Current study was also evaluated with a Computer Aided Detection (CAD). Comparison is made to exams dated: 08/11/2016 mammogram, 08/29/2015 mammogram, and 04/20/2013 mammogram - [facility]. The tissue of both breasts is predominantly fatty. No significant masses, calcifications, or other findings are seen in either breast. There has been no significant interval change. IMPRESSION: NEGATIVE There is no mammographic evidence of malignancy. A 1 year screening mammogram is recommended. Liliane Carmona M.D., jr/cheng:02/15/2018 14:41:49 It Support Consultant: Osiris JIMÉNEZ)(Rojas), [facility] letter sent: Normal over 40 Mammogram BI-RADS: 1 Negative Special Education Director: Cheng Transcribe Date/Time: Feb 15 2018 1:03P Dictated by: LILIANE CARMONA MD This examination was interpreted and the report reviewed and electronically signed by: LILIANE CARMONA MD on Feb 15 2018 2:41PM EST [id number] CBC AND DIFFERENTIAL Collected: 12/16/2017 Status: F Source: [place] 2:40 PM [facility]IC MAIN CAMPUS REPOSITORY TYPE [...] k/uL Abs Lymph 3.59 LAB AMONO % [place]% 5.2 LAB AAMONO <0.87 k/uL Abs [place] 0.55 LAB AEOS % Eosin% 2.5 LAB AAEOS <0.46 k/uL Abs Eosin 0.27 LAB ABASO % Baso% 1.0 LAB AABASO <0.11 k/uL Abs Baso High 0.11 LAB AUNRBC 0 /100 WBC NRBCs 0.0 LAB ABNRBC <0.01 k/uL Absolute nRBC <0.01 LAB DTYP DTYPE Auto Diff Performed By: #### CBCDIF, CMP, TSH, FT4, T3 #### [facility] [address] [place], [place] [address] COMP METABOLIC PANEL Collected: 12/16/2017 Status: F Source: [place] 2:40 PM [facility] REPOSITORY TYPE CODE TESTS RESULT OUT OF REFERENCE UNITS RANGE LAB TP 6.3-8.0 g/dL Protein, High Total 8.3 LAB ALB 3.9-4.9 g/dL Albumin 4.9 LAB CA 8.5-10.2 mg/dL Calcium, Total 9.5 LAB TBIL 0.2-1.3 mg/dL Bilirubin, Total 0.3 LAB ALKP 32-117 U/L Alkaline Phosphatase 39 LAB AST 13-35 U/L AST 22 LAB GLU 74-99 mg/dL Glucose 80 Result Comment: The [place] Diabetes Association (ADA) provides guidance for cutoff [...] Standards of Medical Care in Diabetes 2016, [place] Diabetes Association. Diabetes Care. 2016.39(Suppl 1). LAB [...] #### CBCDIF, CMP, TSH, FT4, T3 #### [facility] [address], [place] [address] TSH Collected: 12/16/2017 Status: F Source: [place] 2:40 PM [facility] REPOSITORY TYPE CODE TESTS RESULT OUT OF [...] Clinical Practice Guideline. J Clin Endocrinol Metab, 2012:97:8136-2592. 2. Carlos RODNEY. Overview of thyroid disease in . UpToDate. 2016. Accessed on March 21, 2016. Performed By: #### CBCDIF, CMP, TSH, FT4, T3 #### [facility] [address] [place], [place] [address] FREE T4 Collected: 12/16/2017 Status: F Source: [place] 2:40 PM [facility] REPOSITORY TYPE CODE TESTS RESULT OUT OF RANGE REFERENCE UNITS LAB FT4 0.9-1.7 ng/dL Low Free T4 <0.1 Result Comment: Result rechecked. Performed By: #### CBCDIF, CMP, TSH, FT4, T3 #### [facility] [address] [place], [place] [address] T3 Collected: 12/16/2017 Status: F Source: [facility] 2:40 PM [facility] REPOSITORY TYPE CODE TESTS RESULT OUT OF RANGE REFERENCE UNITS LAB T3 79-165 ng/dL Low T3 <20 Result Comment: Result rechecked. Performed By: #### CBCDIF, CMP, TSH, FT4, T3 #### [facility] [address] [place], [place] [address] CNOV Observed: 12/16/2017 Status: COMPLETED Source: [place] 2:00 PM [facility] REPOSITORY Office Visit (FAMPWS) COLEENROSALIE Tara ([id number]) 1975 F Date Time Provider Department 12/16/17 2:00 PM TRISHA REDDING (ALYCIA) FAMPWS During your visit today, we recorded the following information about you: Pulse Respiration Blood pressure Weight 72/minute 16/minute 124/78 226.8 kg Last Period 12/02/17 Trisha Redding CNP, [facility] 12/16/2017 3:25 PM Signed HPI/CC:Rosalie Horne [...] Trisha Redding, ALYCIA Referring Provider: FRANCO BARDALES [[id number]] Allergies As of Date: 12/16/2017 Noted Allergy [...] [E03.9] Order(s):CBC + DIFF [SQCBCDIF] Order #: [id number] FUTURE cephALEXin (KEFLEX) 500 mg capsuleTake 1 capsule by mouth four times daily for 14 days.Disp: 56 capsuleRfl: 0 sulfamethoxazole-trimethoprim (BACTRIM DS,SEPTRA DS) 800-160 mg per tabletTake 1 tablet by mouth twice daily for 14 days.Disp: 28 tabletRfl: 0 CONSULT TO GENERAL SURGERY [9011] Order #: [id number]: 1 TSH BLD [SQTSH] Order #: [id number] FUTURE T3 BLD [SQT3] Order #: [id number] FUTURE T4 FREE/FREE THYROX [SQFT4] Order #: [id number] FUTURE COMP METABOLIC PANEL [SQCMP] Order #: [id number] FUTURE Prescriptions as of 12/16/2017 Sig: PROTEIN [...] 12/16/17 PROGRESS Observed: 12/16/2017 Status: COMPLETED Source: [place] 1:55 PM [facility] REPOSITORY HNO ID: [id number] Author: Trisha Marie (Alycia) ALYCIA Redding Service: [...] CNP PROGRESS Observed: 11/30/2017 Status: COMPLETED Source: [place] 2:26 PM [facility] [place] REPOSITORY O ID: [id number] Author: Franco Bardales Service: (none) Author Type: Physician Type: Progress Notes Filed: 11/30/2017 2:32 PM Note Text: CC: Rosalie Horne is a 42 year old female who presents to the office for abdominal wound HPI: 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 No fevers [...] AND 2007 - CHOLECYSTECTOMY - EGD W/O [facility] SPECIMEN W/BX 04/11/13 mild gastritis - [...] plan. See patient instructions. Franco Bardales DO [address] [place] [address] EMERGENCY DEPARTMENT Observed: 11/21/2017 Status: F Source: [place] SUMMARY 2:13 PM [facility] Medical Records Department [address] [place] [address] Emergency Department Summary 11/21/17 1408 MR#: [id number] Acct: [id number] Name: ROSALIE HORNE Rep #: [id number] : 1975 42 From: Perry May MD PCP: Farnco Bardales DO Status: REG ER - ER [...] respiratory infection This note was generated with [employer] dictation software. It may contain incorrect words, [...] your Primary Care Provider. Call [facility] ([phone]) or report to the closest Emergency Room. Call 911 if necessary. 11/21/17 1413 <Electronically signed by Perry May MD> Date Perry May MD Cosigner Signature (If Indicated): Date CC: Franco Bardales DO ALLERGIES ALLERGIES DATE TYPE / NAME / CODE REACTION SEVERITY SOURCE CODE 09/17/2018 Drug diphenhydramine Hives Unknown [place] Allergy/41 HCl/[id number](RXNORM [facility] [id number]) Repository 09/17/2018 Drug Penicillins/[id number] Nausea Unknown [place] Allergy/41 6(RXNORM) [facility] 6189488([facility]) Repository 09/17/2018 Drug codeine/[id number](RX Other Unknown [place] Allergy/41 NORM) [facility] 7327752([facility] Repository 09/17/2018 Drug aspirin/[id number](RX Upset Stomach Unknown [place] Allergy/41 NORM) Community 3502182([facility] OMED [facility]) Repository 09/17/2018 Drug ibuprofen/[id number]( Upset Stomach Unknown [place] Allergy/41 RXNORM) Community 2564245([facility] OMED [facility]) Repository 09/17/2018 Drug metronidazole/[id number] Rash Unknown [place] Allergy/41 958(RXNORM) Community 1210605([facility] OMED CT) Repository 09/17/2018 Drug venom-honey Anaphylaxis Unknown [place] Allergy/41 bee/[id number](RXNORM Community 4891638([facility] OMED CT) Repository 03/08/2018 DRUG METRONIDAZOLE HCL OTHER: [facility] 5907517[facility]) Repository 05/10/2015 Drug PENICILLINS GI UPSET [place] Class/4195 Clinic Main 42294([facility] [place] ED [facility]) Repository 01/20/2012 DRUG ASPIRIN OTHER: [facility] 7307680( [place] OMED [facility]) Repository 07/21/2005 Environ/42 BEES SWELLING [place] 0376901( Clinic Main OMED [facility]) [place] Repository 07/21/2005 DRUG DIPHENHYDRAMINE HCL HIVES [facility] 8518252([facility] OMED [facility]) Repository 07/21/2005 DRUG CODEINE Mental Chg [facility] 9625114([facility] OMED [facility]) Repository 07/21/2005 DRUG IBUPROFEN GI UPSET [facility]/41 Clinic Main 7854997( [place] OMED [place]) Repository NG/0874232 ASPIRIN [facility] Repository NG/1148101 BEES [facility] Repository NG/5030798 DIPHENHYDRAMINE HCL [facility] Repository NG/0249288 CODEINE [facility] Repository NG/2653135 METRONIDAZOLE HCL [facility] Repository NG/7944968 IBUPROFEN [facility]) Repository NG/6772410 PENICILLINS [facility]) Repository ENCOUNTERS ENCOUNTERS ADMIT/DISCHARGE ACCOUNT NUMBER ADMITTING ENCOUNTER LOCATION SOURCE CLASS 10/25/2018 [id number] Ambulatory [facility] ding: Repository 10/12/2018 [id number] Ambulatory [facility] [place] [facility] 10/12/2018 [id number] Ambulatory [facility] ding: Repository 09/21/2018 [id number] Ambulatory BMSBuilding: [place] BMS.[facility] Repository 09/21/2018 [id number] Ambulatory BMSBuilding: [place] BMS.[facility] Repository 09/21/2018 [id number] Ambulatory BMSBuilding: [place] BMS.[facility] Repository 09/21/2018 [id number] Yrn Hendricks Ambulatory BMSBuilding: [place] BMS.[facility] Repository 09/21/2018 [id number] Yrn Hendricks Ambulatory BMSBuilding: [place] BMS.[facility] Repository 09/21/2018 [id number] Yrn Hendricks Ambulatory BMSBuilding: [place] BMS.[facility] Repository 09/21/2018 [id number] Yrn Hendricks Ambulatory BMSBuilding: [place] BMS.[facility] Repository 09/21/2018 [id number] Yrn Hendricks Ambulatory BMSBuilding: [place] BMS.[facility] Repository 09/21/2018 [id number] Yrn Hendricks Ambulatory BMSBuilding: [place] BMS.[facility] Repository 09/21/2018 [id number] Yrn Hendricks Ambulatory BMSBuilding: [place] BMS.[facility] Repository 09/21/2018 [id number] Yrn Hendricks Ambulatory BMSBuilding: [place] BMS.[facility] Repository 09/21/2018 [id number] Yrn Hendricks Ambulatory BMSBuilding: [place] [facility]MS.[facility] Repository 09/21/2018 [id number] Yrn Hendricks Ambulatory BMSBuilding: [place] BMS.[facility] Repository 09/21/2018 [id number] Yrn Hendricks Ambulatory BMSBuilding: [place] BMS.[facility] Repository 09/21/2018 [id number] Yrn Hendricks Ambulatory BMSBuilding: [place] [facility] 09/21/2018 [id number] Ambulatory BMSBuilding: [place] [facility] Repository 09/21/2018/09/26/20 [id number] Ambulatory BMSBuilding: [place] 18 [facility] Repository 09/21/2018/09/26/20 [id number] Yrn Hendricks Inpatient [place] 18 Encounter [facility] ding:[id number] Repository : IA408Igp: 1 09/06/2018 [id number] Ambulatory BMSBuilding: [place] BMS.[facility] Repository 09/06/2018/10/04/20 [id number] Ambulatory [place] [address] ding: Repository 08/23/2018 [id number] Ambulatory BMSBuilding: [place] BMS.[facility] Repository 08/23/2018/09/03/20 [id number] Ambulatory [place] [address] ding: Repository 08/16/2018 [id number] Ambulatory BMSBuilding: [place] BMS..[facility] Repository 08/02/2018 [id number] Ambulatory BMSBuilding: [place] BMS.[facility] Repository 08/02/2018/08/04/20 [id number] Ambulatory [address] ding:WC Repository 06/29/2018/06/29/20 [id number] Emergency [place] ding:ED Repository 05/06/2018/05/21/20 [id number] White, Cuca Inpatient [place] 18 Encounter [facility] ding:JP5Xllx Repository : FT384Xdj: 1 05/06/2018 [id number] White, Cuca Ambulatory BMSBuilding: [place] BMS.[facility] Repository 05/06/2018 [id number] White, Cuca Ambulatory BMSBuilding: [place] BMS.[facility] Repository 05/06/2018 [id number] White, Cuca Ambulatory BMSBuilding: [place] BMS.[facility] Repository 05/06/2018 [id number] White, Cuca Ambulatory BMSBuilding: [place] BMS.[facility] Repository 05/06/2018 [id number] White, Cuca Ambulatory BMSBuilding: [place] BMS..[facility] hospital Repository 05/06/2018 [id number] White, Cuca Ambulatory BMSBuilding: [place] BMS..[facility] hospital Repository 05/06/2018 [id number] White, Cuca Ambulatory BMSBuilding: [place] [facility]MS.[facility] Repository 05/06/2018 [id number] White, Cuca Ambulatory BMSBuilding: [place] BMS..[facility] Repository 05/06/2018 [id number] White, Cuca Ambulatory BMSBuilding: [place] BMS..[facility] hospital Repository 05/06/2018 [id number] White, Cuca Ambulatory BMSBuilding: [place] BMS.[facility] Repository 05/06/2018 [id number] White, Cuca Ambulatory BMSBuilding: [place] BMS.[facility] Repository 05/06/2018 [id number] White, Cuca Ambulatory BMSBuilding: [place] BMS..[facility] Repository 05/06/2018 [id number] White, Cuca Ambulatory BMSBuilding: [place] BMS.[facility] Repository 05/06/2018 [id number] White, Cuca Ambulatory BMSBuilding: [place] BMS.[facility] Repository 05/06/2018 [id number] White, Cuca Ambulatory BMSBuilding: [place] BMS..[facility] Repository 05/06/2018 [id number] White, Cuca Ambulatory BMSBuilding: [place] BMS.[facility] Repository 05/06/2018 [id number] White, Cuca Ambulatory BMSBuilding: [place] BMS.[facility] Repository 05/06/2018 [id number] White, Cuca Ambulatory [facility]Building[facility] [place] [facility] 05/06/2018 [id number] White, Cuca Ambulatory BMSBuilding: [place] BMS.[facility] Repository 05/06/2018 [id number] White, Cuca Ambulatory BMSBuilding: [place] BMS.[facility] Repository 05/06/2018 [id number] White, Cuca Ambulatory BMSBuilding: [place] BMS.[facility] Repository 05/06/2018 [id number] , Ambulatory BMSBuilding: [place] BMS.[facility] Repository 05/06/2018 [id number] , Ambulatory BMSBuilding: [place] BMS.[facility] Repository 05/06/2018/05/21/20 [id number] Ambulatory BMSBuilding: [place] 18 [facility] Repository 05/06/2018/05/07/20 [id number] Ambulatory [address] Repository 03/31/2018/04/01/20 [id number] Ambulatory [address] Repository 03/17/2018/03/18/20 [id number] Ambulatory [address] Repository 03/08/2018/03/12/20 [id number] [facility], Inpatient [address] Repository 03/08/2018/03/12/20 [id number] [facility], Inpatient [address] MEDICAL Repository [place] ROCKSBuildi nARoom: 5207Bed: 03/08/2018/03/08/20 [id number] Emergency [place] ding:ED Repository 02/15/2018/02/16/20 [id number] Ambulatory [address] Repository 12/16/2017/12/17/19 [id number] Ambulatory [address] Repository 12/16/2017/12/18/19 [id number] Ambulatory [address] Repository 11/30/2017/12/05/19 [id number] Ambulatory [address] Repository 11/21/2017/11/21/19 [id number] Emergency [place] ding:ED Repository PAYERS PAYERS ENCOUNTER GUARANTOR PAYER SUBSCRIBER SOURCE 10/25/2018 ROSALIE Pacheco Primary ROSALIE GEE O BOX Insurance:CARESOURCEP STR[address]OB: [address] Number: [id number] [facility] 91658Nve: [phone]) [id number] Repository [phone] () Date:2018-07-16 [address]ATTN: [place] [address]VO: 10/25/2018 Secondary NOT GIVENUNK [place] Insurance:SELF PAY [facility] Number: Effective Repository Date:2018-10-05 10/12/2018 ROSALIE E Primary ROSALIE E [place] STR[address]P O BOX Insurance:CARESOURCEP STROUSEDOB: [facility] [place] Number: [id number] [facility] 58958Vnl: 330 [id number] Repository [phone] () Date:2018-10-12 [address]ATTN: [place] [address]WI: 10/12/2018 Secondary NOT GIVENUNK [place] Insurance:SELF PAY [facility] Number: Effective Repository Date:2018-10-12 10/12/2018 ROSALIE E Primary NOT GIVENUNK [place] [address] BOX Insurance:SELF PAY [address] [address]Wba: 330) Number: Effective Repository [phone] () Date:2018-10-06 09/21/2018 ROSALIE E Primary ROSALIE E [place] STROU[address]P O BOX Insurance:CARESOURCEP STROUSEDOB: [place] Number: [id number] Hospital 27808Hzf: 330 [id number] Repository [phone] () Date:2018-09-07 [address]ATTN: [place] [address]LH: 09/21/2018 Secondary NOT GIVENUNK [place] Insurance:SELF PAY [facility] Number: Effective Repository Date:2018-09-21 09/21/2018 ROSALIE E Primary ROSALIE E [place] [address] BOX Insurance:CARESOURCEP [place]OUSEDOB: [place] Number: [id number] [facility] 86[address]Cum: 330 [id number] Repository [phone] () Date:2018-09-07P [address]ATTN: [place] [address]DB: 09/21/2018 Secondary NOT GIVENUNK [place] Insurance:SELF PAY [facility] Number: Effective Repository Date:2018-09-21 09/21/2018 ROSALIE E Primary ROSALIE E [place] [address] Insurance:CARESOURCEP STR[place]OB: [place] Number: [id number] Hospital [address]Ffn: [phone]) [id number] Repository [phone] () Date:2018-09-07 [address]ATTN: [place] [address]EY: 09/21/2018 Secondary NOT GIVENUNK [place] Insurance:SELF PAY [facility] Number: Effective Repository Date:2018-09-21 09/21/2018 ROSALIE E Primary ROSALIE E [place] [address] Insurance:CARESOURCEP STR[place]OB: [place] Number: [id number] Hospital 174[address]Yun: [phone]) [id number] Repository [phone] () Date:2018-09-07 [address]ATTN: [place] [address]AJ: 09/21/2018 Secondary NOT GIVENUNK [place] Insurance:SELF PAY [facility] Number: Effective Repository Date:2018-09-21 09/21/2018 ROSALIE E Primary ROSALIE E [place] [address] Insurance:CARESOURCEP STR[place]OB: [place] Number: [id number] Hospital [address]Eae: ([phone]) [id number] Repository [phone] () Date:2018-09-07 [address]ATTN: [place] [address]EB: 09/21/2018 Secondary NOT GIVENUNK [place] Insurance:SELF PAY [facility] Number: Effective Repository Date:2018-09-20 09/21/2018 ROSALIE E Primary ROSALIE E [place] [address] Insurance:CARESOURCEP STR[place]OB: [place] Number: [id number] Hospital [address]Fli: ([phone]) [id number] Repository [phone] () Date:2018-09-07 [address]ATTN: [place] [address]IY: 09/21/2018 Secondary NOT GIVENUNK [place] Insurance:SELF PAY [facility] Number: Effective Repository Date:2018-09-21 09/21/2018 ROSALIE E Primary ROSALIE E [place] [address] Insurance:CARESOURCEP STR[place]OB: [place] [address] Number: [id number] [facility] 947[address]Gtp: ([phone]) [id number] Repository [phone] () Date:2018-09-07 [address]ATTN: [place] [address]LZ: 09/21/2018 Secondary NOT GIVENUNK [place] Insurance:SELF PAY [facility] Number: Effective Repository Date:2018-09-21 09/21/2018 ROSALIE E Primary ROSALIE E [place] [address] Insurance:CARESOURCEP STROUSEDOB: [place] [address] Number: [id number] Hospital 56165Kcw: 330 [id number] Repository [phone] () Date:2018-09-07 [address]ATTN: [place] [address]VP: 09/21/2018 Secondary NOT GIVENUNK [place] Insurance:SELF PAY [facility] Number: Effective Repository Date:2018-09-21 09/21/2018 ROSALIE E Primary ROSALIE E [place] [address] Insurance:CARESOURCEP STR[place]: [place] [address] Number: [id number] Hospital 813[address]Imq: [phone]) [id number] Repository [phone] () Date:2018-09-07 [address]ATTN: [place] [address]EN: 09/21/2018 Secondary NOT GIVENUNK [place] Insurance:SELF PAY [facility] Number: Effective Repository Date:2018-09-21 09/21/2018 ROSALIE E Primary ROSALIE E [place] [address] Insurance:CARESOURCEP STR[place]ED[place]: [place] [address] Number: [id number] Hospital [address]Gci: ([phone]) [id number] Repository [phone] () Date:2018-09-07 [address]N: [place] [address]VS: 09/21/2018 Secondary NOT GIVENUNK [place] Insurance:SELF PAY [facility] Number: Effective Repository Date:2018-09-21 09/21/2018 ROSALIE E Primary ROSALIE E [place] [address] Insurance:CARESOURCEP [place]: [place] [address] Number: [id number] Hospital 388[address]Dkj: ([phone]) [id number] Repository [phone] () Date:2018-09-07 [address]N: [place] [address]IG: 09/21/2018 Secondary NOT GIVENUNK [place] Insurance:SELF PAY [facility] Number: Effective Repository Date:2018-09-21 09/21/2018 ROSALIE E Primary ROSALIE E [place] [address] Insurance:CARESOURCEP [place]: [place] [address] Number: [id number] Hospital 870[address]Ghy: ([phone]) [id number] Repository [phone] () Date:2018-09-07 [address]ATTN: [place] [address]YY: 09/21/2018 Secondary NOT GIVENUNK [place] Insurance:SELF PAY [facility] Number: Effective Repository Date:2018-09-21 09/21/2018 ROSALIE E Primary ROSALIE E [place] [address] Insurance:CARESOURCEP STR[place]: [place] Number: [id number] Hospital [address]Uua: [phone]) [id number] Repository [phone] () Date:2018-09-07 [address]ATTN: [place] [address]NX: 09/21/2018 Secondary NOT GIVENUNK [place] Insurance:SELF PAY [facility] Number: Effective Repository Date:2018-09-21 09/21/2018 ROSALIE E Primary ROSALIE E [place] [address] Insurance:CARESOURCEP [place]: [place] [address] Number: [id number] Hospital 45874Xbe: ([phone]) [id number] Repository [phone] () Date:2018-09-07 [address]ATTN: [place] [address]PQ: 09/21/2018 Secondary NOT GIVENUNK [place] Insurance:SELF PAY [facility] Number: Effective Repository Date:2018-09-21 09/21/2018 ROSALIE E Primary ROSALIE E [place] [address] Insurance:CARESOURCEP [place]: [place] [address] Number: [id number] Hospital 38[address]Pkh: 330 [id number] Repository [phone] () Date:2018-09-07 [address]ATTN: [place] [address]NV: 09/21/2018 Secondary NOT GIVENUNK [place] Insurance:SELF PAY [facility] Number: Effective Repository Date:2018-09-21 09/21/2018 ROSALIE E Primary ROSALIE E [place] [address] Insurance:CARESOURCEP [place]: [place] [address] Number: [id number] Hospital 74[address]Ucj: ([phone]) [id number] Repository [phone] () Date:2018-09-07 [address]ATTN: [place] [address]QT: 09/21/2018 Secondary NOT GIVENUNK [place] Insurance:SELF PAY [facility] Number: Effective Repository Date:2018-09-21 09/21/2018 ROSALIE E Primary ROSALIE E [place] [address]OX Insurance:CARESOURCEP [place]: [place] [address] Number: [id number] Hospital [address]Eyd: ([phone]) [id number] Repository [phone] () Date:2018-09-07 [address]ATTN: [place] [address]IC: 09/21/2018 Secondary NOT GIVENUNK [place] Insurance:SELF PAY [facility] Number: Effective Repository Date:2018-09-21 09/21/2018 ROSALIE E Primary ROSALIE E [place] [address] Insurance:CARESOURCEP [place]: [place] Number: [id number] Hospital 30[address]Imt: [phone]) [id number] Repository [phone] () Date:2018-09-07 [address]ATTN: [place] [address]MV: 09/21/2018 Secondary NOT GIVENUNK [place] Insurance:SELF PAY [facility] Number: Effective Repository Date:2018-09-07 09/06/2018 Yesi Grady Primary ROSALIE E [place] [address] Insurance:CARESOURCEP STR[place]EDOB: [place] [address] Number: [id number] Hospital 29574Xkq: ([phone]) [id number] Repository [phone] () Date:2018-07-16 [address]ATTN: [place] [address]AC: 09/06/2018 Secondary NOT GIVENUNK [place] Insurance:SELF PAY [facility] Number: Effective Repository Date:2018-09-06 09/06/2018 Yesi N Primary ROSALIE E [place] [address] Insurance:CARESOURCEP STR[place]: [place] [address] Number: [id number] Hospital [address]Icb: (459) [id number] Repository [phone] () Date:2018-07-16 [address]ATTN: [place] [address]LU: 09/06/2018 Secondary NOT GIVENUNK [place] Insurance:SELF PAY [facility] Number: Effective Repository Date:2018-09-04 08/23/2018 Yesi Ysabel Primary ROSALIE E [place] [address] Insurance:CARESOURCEP [place]OB: [place] Number: [id number] Hospital 35[address]Udb: ([phone]) [id number] Repository [phone] () Date:2018-07-16 [address]ATTN: [place] [address]WO: 08/23/2018 Secondary NOT GIVENUNK [place] Insurance:SELF PAY [facility] Number: Effective Repository Date:2018-08-23 08/23/2018 Yesi Ysabel Primary ROSALIE E [place] [address] Insurance:CARESOURCEP [place]OB: [place] Number: [id number] Hospital 19548Xds: ([phone]) [id number] Repository [phone] () Date:2018-07-16 [address]ATTN: [place] [address]TN: 08/23/2018 Secondary NOT GIVENUNK [place] Insurance:SELF PAY [facility] Number: Effective Repository Date:2018-08-05 08/16/2018 Yesi Ysabel Primary ROSALIE E [place] [address] Insurance:CARESOURCEP [place]OB: [place] Number: [id number] Hospital 64959Lps: [phone]) [id number] Repository [phone] () Date:2018-07-16 [address]ATTN: [place] [address]IP: 08/16/2018 Secondary NOT GIVENUNK [place] Insurance:SELF PAY [facility] Number: Effective Repository Date:2018-08-16 08/02/2018 Yesi N Primary ROSALIE E [place] [address] Insurance:CARESOURCEP STR[place]: [place] [address] Number: [id number] Hospital 74372Igj: ([phone]) [id number] Repository [phone] () Date:2018-07-16 [address]ATTN: [place] [address]BO: 08/02/2018 Secondary NOT GIVENUNK [place] Insurance:SELF PAY [facility] Number: Effective Repository Date:2018-08-02 08/02/2018 Yesi Grady Primary ROSALIE E [place] [address] Insurance:CARESOURCEP [place]: [place] Number: [id number] Hospital 324[address]Qus: ([phone]) [id number] Repository [phone] () Date:2018-07-16 [address]ATTN: [place] [address]RS: 08/02/2018 Secondary NOT GIVENUNK [place] Insurance:SELF PAY [facility] Number: Effective Repository Date:2018-07-16 06/29/2018 Yesi Grady Primary ROSALIE E [place] [address] Insurance:CARESOURCEP [place]: [place] Number: [id number] Hospital 65[address]Bhn: ([phone]) [id number] Repository [phone] () Date:2018-06-29P [address]ATTN: [place] [address]HA: 06/29/2018 Secondary NOT GIVENUNK [place] Insurance:SELF PAY [facility] Number: Effective Repository Date:2018-06-29 05/06/2018 Yesi Grady Primary ROSALIE E [place] [address] Insurance:CARESOURCEP [place]: [place] Number: [id number] Hospital 6[address]Dvb: ([phone]) [id number] Repository [phone] () Date:2018-05-06 [address]ATTN: [place] [address]OT: 05/06/2018 Secondary NOT GIVENUNK [place] Insurance:SELF PAY [facility] Number: Effective Repository Date:2018-05-06 05/06/2018 Yesi N Primary ROSALIE E [place] [address] Insurance:CARESOURCEP STROUSEDOB: [facility] [place] Number: [id number] Hospital [address]Izo: ([phone]) [id number] Repository [phone] () Date:2018-05-06 [address]ATTN: [place] [address]HX: 05/06/2018 Secondary NOT GIVENUNK [place] Insurance:SELF PAY [facility] Number: Effective Repository Date:2018-05-06 05/06/2018 Yesi Grady Primary ROSALIE E [place] [address] Insurance:CARESOURCEP [place]OB: [place] Number: [id number] Hospital 74[address]Isg: ([phone]) [id number] Repository [phone] () Date:2018-05-06 [address]ATTN: [place] [address]YC: 05/06/2018 Secondary NOT GIVENUNK [place] Insurance:SELF PAY [facility] Number: Effective Repository Date:2018-05-06 05/06/2018 Yesi Grady Primary ROSALIE E [place] [address] Insurance:CARESOURCEP STROUS[place]OB: [place] Number: [id number] Hospital [address]146Uvc: ([phone]) [id number] Repository [phone] () Date:2018-05-06 [address]ATTN: [place] [address]JG: 05/06/2018 Secondary NOT GIVENUNK [place] Insurance:SELF PAY [facility] Number: Effective Repository Date:2018-05-06 05/06/2018 Yesi N Primary ROSALIE E [place] [address] Insurance:CARESOURCEP STROUS[place]: [place] [address] Number: [id number] [address]Mot: [phone]) [id number] Repository [phone] (HP) Date:2018-05-06 [address]ATTN: [place] [address]JJ: 05/06/2018 Secondary NOT GIVENUNK [place] Insurance:SELF PAY [facility] Number: Effective Repository Date:2018-05-06 05/06/2018 Yesi Grady Primary ROSALIE E [place] [address] Insurance:CARESOURCEP STROUS[place]OB: [place] [address] Number: [id number] [address]64[address]Yrw: [phone]) [id number] Repository [phone] () Date:2018-05-06 [address]ATTN: [place] [address]FM: 05/06/2018 Secondary NOT GIVENUNK [place] Insurance:SELF PAY [facility] Number: Effective Repository Date:2018-05-06 05/06/2018 Yesi Grady Primary ROSALIE E [place] [address] Insurance:CARESOURCEP STROUS[place]OB: [place] [address] Number: [id number] [address]Vir: [phone]) [id number] Repository [phone] () Date:2018-05-06P [address]ATTN: [place] [address]KO: 05/06/2018 Secondary NOT GIVENUNK [place] Insurance:SELF PAY [facility] Number: Effective Repository Date:2018-05-06 05/06/2018 Yesi Grady Primary ROSALIE E [place] [address] Insurance:CARESOURCEP [place]: [place] [address] Number: [id number] [address]Abs: [phone]) [id number] Repository [phone] () Date:2018-05-06 [address]ATTN[place] [address]RF: 05/06/2018 Secondary NOT GIVENUNK [place] Insurance:SELF PAY [facility] Number: Effective Repository Date:2018-05-06 05/06/2018 Yesi Ysabel Primary ROSALIE E [place] [address] Insurance:CARESOURCEP [place]OUS[place]OB[place] Number: [id number] [address]Iio: [phone]) [id number] Repository [phone] () Date:2018-05-06 [address]ATTN: [place] [address]CV: 05/06/2018 Secondary NOT GIVENUNK [place] Insurance:SELF PAY [facility] Number: Effective Repository Date:2018-05-06 05/06/2018 Yesi Grady Primary ROSALIE E [place] [address] Insurance:CARESOURCEP [place]: [place] [address] Number: [id number] [facility] [address]Jht: [phone]) [id number] Repository [phone] () Date:2018-05-06 [address]ATTN: [place] [address]EK: 05/06/2018 Secondary NOT GIVENUNK [place] Insurance:SELF PAY [facility] Number: Effective Repository Date:2018-05-06 05/06/2018 Yesi N Primary ROSALIE [place] [address] Insurance:CARESOURCEP [place] Number: [id number] [facility] [address]Hwc: [phone]) [id number] Repository [phone] () Date:2018-08-02P [address]N: [place] [address]HP: 05/06/2018 Secondary NOT GIVENUNK [place] Insurance:SELF PAY [facility] Number: Effective Repository Date:2018-05-06 05/06/2018 Yesi N Primary ROSALIE E [place] [address] Insurance:CARESOURCEP STR[place]: [place] [address] Number: [id number] [address]Dsf: [phone]) [id number] Repository [phone] () Date:2018-05-06P [address]ATTN: [place] [address]UU: 05/06/2018 Secondary NOT GIVENUNK [place] Insurance:SELF PAY [facility] Number: Effective Repository Date:2018-05-06 05/06/2018 Yesi N Primary ROSALIE E [place] [address] Insurance:CARESOURCEP [place]: [place] [address] Number: [id number] [address]Nvn: [phone]) [id number] Repository [phone] () Date:2018-05-06P [address]ATTN: [place] [address]KW: 05/06/2018 Secondary NOT GIVENUNK [place] Insurance:SELF PAY [facility] Number: Effective Repository Date:2018-05-06 05/06/2018 Yesi Ysabel Primary ROSALIE E [place] [address] Insurance:CARESOURCEP STR[place]: [place] [address] Number: [id number] [facility] [address]Uda: [phone]) [id number] Repository [phone] () Date:2018-05-06P [address]ATTN: [place] [address]PE: 05/06/2018 Secondary NOT GIVENUNK [place] Insurance:SELF PAY [facility] Number: Effective Repository Date:2018-05-06 05/06/2018 Yesi N Primary ROSALIE E [place] [address] Insurance:CARESOURCEP [place]: [place] [address] Number: [id number] [facility] [address]Wux: [phone]) [id number] Repository [phone] () Date:2018-05-06P [address]ATTN: [place] [address]HF: 05/06/2018 Secondary NOT GIVENUNK [place] Insurance:SELF PAY [facility] Number: Effective Repository Date:2018-05-06 05/06/2018 Yesi Grady Primary ROSALIE E [place] [address] Insurance:CARESOURCEP [place]: [place] [address] Number: [id number] [facility] [address]Bea: [phone]) [id number] Repository [phone] () Date:2018-05-06 [address]ATTN: [place] [address]OM: 05/06/2018 Secondary NOT GIVENUNK [place] Insurance:SELF PAY [facility] Number: Effective Repository Date:2018-05-06 05/06/2018 Yesi Grady Primary ROSALIE E [place] [address] Insurance:CARESOURCEP [place]: [place] [address] Number: [id number] [facility] [address]Vik: [phone]) [id number] Repository [phone] () Date:2018-05-06 [address]ATTN: [place] [address]OH: 05/06/2018 Secondary NOT GIVENUNK [place] Insurance:SELF PAY [facility] Number: Effective Repository Date:2018-05-06 05/06/2018 Yesi Grady Primary ROSALIE E [place] [address] Insurance:CARESOURCEP [place]: [place] [address] Number: [id number] [address]Fgz: ([phone]) [id number] Repository [phone] () Date:2018-05-06P [address]ATTN: [place] [address]AS: 05/06/2018 Secondary NOT GIVENUNK [place] Insurance:SELF PAY [facility] Number: Effective Repository Date:2018-05-06 05/06/2018 Yesi N Primary ROSALIE E [place] [address] Insurance:CARESOURCEP [place]: [place] [address] Number: [id number] [facility] [address]Npu: [phone]) [id number] Repository [phone] () Date:2018-05-06P [address]ATTN: [place] [address]VW: 05/06/2018 Secondary NOT GIVENUNK [place] Insurance:SELF PAY [facility] Number: Effective Repository Date:2018-05-06 05/06/2018 Yesi Ysabel Primary ROSALIE E [place] [address] Insurance:CARESOURCEP [place]: [place] [address] Number: [id number] [facility] [address]Pcm: [phone]) [id number] Repository [phone] () Date:2018-05-06P [address]ATTN: [place] [address]PP: 05/06/2018 Secondary NOT GIVENUNK [place] Insurance:SELF PAY [facility] Number: Effective Repository Date:2018-05-06 05/06/2018 Yesi N Primary ROSALIE E [place] [address] Insurance:CARESOURCEP [place]: [place] [address] Number: [id number] [facility] [address]Vjk: [phone]) [id number] Repository [phone] () Date:2018-05-06P [address]ATTN: [place] [address]EK: 05/06/2018 Secondary NOT GIVENUNK [place] Insurance:SELF PAY [facility] Number: Effective Repository Date:2018-05-06 05/06/2018 Yesi N Primary ROSALIE E [place] [address] Insurance:CARESOURCEP [place]: [place] [address] Number: [id number] [facility] [address]Lub: [phone]) [id number] Repository [phone] () Date:2018-05-06 [address]ATTN: [place] [address]VN: 05/06/2018 Secondary NOT GIVENUNK [place] Insurance:SELF PAY [facility] Number: Effective Repository Date:2018-05-06 05/06/2018 Yesi Grady Primary ROSALIE E [place] [address] Insurance:CARESOURCEP [place]: [place] [address] Number: [id number] Hospital [address]Boy: [phone]) [id number] Repository [phone] () Date:2018-05-06 [address]ATTN: [place] [address]HF: 05/06/2018 Secondary NOT GIVENUNK [place] Insurance:SELF PAY [facility] Number: Effective Repository Date:2018-05-06 05/06/2018 Yesi Grady Primary ROSALIE E [place] [address] Insurance:CARESOURCEP [place]: [place] [address] Number: [id number] [facility] [address]Yti: [phone]) [id number] Repository [phone] () Date:2018-05-06 [address]ATTN: [place] [address]VK: 05/06/2018 Secondary NOT GIVENUNK [place] Insurance:SELF PAY [facility] Number: Effective Repository Date:2018-05-06 05/06/2018 Yesi Grady Primary ROSALIE E [place] [address] Insurance:CARESOURCEP [place]: [place] [address] Number: [id number] [facility] [address]Tbu: [phone]) [id number] Repository [phone] () Date:2018-05-06P [address]ATTN: [place] [address]FD: 05/06/2018 Secondary NOT GIVENUNK [place] Insurance:SELF PAY [facility] Number: Effective Repository Date:2018-05-06 03/08/2018 ROSALIE E Primary ROSALIE E [facility] STROUS[place]: Insurance:CARESOURCE STROUSEDOB: [facility] [id number]OX MEDICAIDPolicy [id number] Repository [address] Number: [address]Fke: [phone] [id number] [phone] (HP) Date: 03/08/2018 Yesi N Primary ROSALIE E [place] [address] Insurance:CARESOURCEP [place]: [place] [address] Number: [id number] [facility] [address]Vmg: [phone]) [id number] Repository [phone] () Date:2018-03-08P [address]ATTN: [place] [address]PZ: 03/08/2018 Secondary NOT GIVENUNK [place] Insurance:SELF PAY [facility] Number: Effective Repository Date:2018-03-08 11/21/2017 Yesi Ysabel Primary ROSALIE E [place] [address] Insurance:CARESOURCEP STROUSEDOB: [facility] [address] Number: [id number] [facility] [address]Aly: ([phone]) [id number] Repository [phone] (HP) Date:2017-11-21P [address]ATTN: [place] [address]LG: 11/21/2017 Secondary NOT GIVENUNK [place] Insurance:SELF PAY [facility] Number: Effective Repository Date:2017-11-21
== END 2018-11-04 23:59 ==
LOC: WC 11:06
PROVIDERS: Family Provider Student in an Organized Health Care Education/Training Program; PCP Student in an Organized Health Care Education/Training Program; Visit Provider Surgery
DX: L98.492 Non-pressure chronic ulcer of skin of other sites with fat layer exposed (principal); R73.09 Other abnormal glucose; E66.01 Morbid (severe) obesity due to excess calories; Z71.3 Dietary counseling and surveillance; E65 Localized adiposity; L30.4 Erythema intertrigo; L98.491 Non-pressure chronic ulcer of skin of other sites limited to breakdown of skin
CPT/HCPCS: 11042; 11045

== ENCOUNTER 2018-11-22 11:30 | Outpatient (RCR) | payer MEDICAID, SELFPAY ==
[2018-11-08 10:05] VITALS: BP 128/65; PULSE 103; RESP 18; TEMP 36.4; BMI 78.4
--- NOTE | 2018-11-08 10:40 | PN.PCM_ITS ---
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 History of Wound: Surgery 09/21/18 - Surgical preparation right lateral abdominal wall massive panniculus with excisional debridement skin and subcutaneous tissue for necrotizing soft tissue infection and panniculectomy (858 cm2). Wound care - Dakin's dressing changes. Initially she had the VAC and had issues with it at the [facility]. Operative culture - Staphylococcus simulans, Corynebacteriurm striatum, Corynebacterium amycolatum, and Anaerobic cocci. She was treated initially with Vancomycin and then was placed on Levaquin for the ECF. With the recent Anaerobic cocci, will add Cleocin. Prealbumin from 09/22/18 was 12.0. Encouraged nutritional supplementation with protein to help the healing process. Today she denies fever. Her appetite is ok. She states she feels better as she is able to get out of bed easier at the ECF and ambulate better. Progress of Wound: Improved. - Physical Exam Vital Signs Temp Pulse Resp BP 97.5 F L 103 H 18 128/65 H 11/08/18 10:05 11/08/18 10:05 11/08/18 10:05 11/08/18 10:05 General: Alert, Oriented x3, Cooperative HEENT: Atraumatic Oral: Moist Mucosa Lungs: Normal air movement Cardiovascular: Regular rate Abdomen: Obese Extremities: Capillary Refill Less than 3 Seconds, Diminished Peripheral Pulses, Edema Skin: Ulcer/ Wound - Right lateral abdominal ulcer Wound Measurements and Assessment WC - Nurse 1 - General Ulcer Measurement Start: 11/08/18 10:05 Freq: Status: Active Protocol: Activity Type Activity Date Activity User E-Sign Co-Sign Detail Recorded Client Recorded Date Recorded By Document 11/08/18 10:05 CARROLL [id number] 11/08/18 10:14 CARROLL 11/08/18 10:05 Wound Center Nurse 1 [Ulcer Assessment] #3 Mid Abdominal Fold -Combined with other wound No -Current Size (cm) - Length 1.2 -Current Size (cm) - Width 6.5 -Current Size (cm) - Depth 0.4 -Total Square Cm 7.80 -Photo Taken No -Epithelialization Small 1-33% -Tunneling No -Undermining/Tunneling No -Circular Undermining No -Exudate Amt Small -Exudate Type Serosanguineous -Wound Margin Flat & Intact -Granulation Amt Large (67-100%) -Granulation Quality [place] -Slough/Fibrin No -Necrosis Amt None Present (0 %) -Texture (Lyly-wound Skin Appearance) Scarring -Moisture (Lyly-wound Skin Appearance Assessed ) Maceration -Color (Lyly-wound Skin Appearance) Assessed Palor -Temperature (Lyly-wound Skin No Abnormality Appearance) (Pt Warm) -Tenderness on Palpation (Lyly-wound No Skin Appearance) -Ulcer Cleansing Wound Cleanser -Foul Odor after Cleansing No -Anesthetic Used 4% Lidocaine Solution #2 right pannus post-op -Combined with other wound No -Current Size (cm) - Length 15 -Current Size (cm) - Width 27 -Current Size (cm) - Depth 1.8 -Total Square Cm 405 -Photo Taken No -Epithelialization Small 1-33% -Tunneling No -Undermining/Tunneling No -Circular Undermining No -Exudate Amt Large -Exudate Type Serosanguineous -Wound Margin Flat & Intact -Granulation Amt Large (67-100%) -Granulation Quality Red -Slough/Fibrin Yes -Necrosis Amt Small (1-33%) -Necrotic Tissue Type Adherent Slough -Texture (Lyly-wound Skin Appearance) Scarring -Moisture (Lyly-wound Skin Appearance Assessed ) -Color (Lyly-wound Skin Appearance) Assessed -Temperature (Lyly-wound Skin No Abnormality Appearance) (Pt Warm) -Tenderness on Palpation (Lyly-wound No Skin Appearance) -Ulcer Cleansing Wound Cleanser -Foul Odor after Cleansing No -Anesthetic Used 4% Lidocaine Solution WC - Nurse 2 - General Ulcer CM Notes Start: 11/08/18 10:05 Freq: Status: Active Protocol: Activity Type Activity Date Activity User E-Sign Co-Sign Detail Recorded Client Recorded Date Recorded By Document 11/08/18 10:24 LOIS [id number] 11/08/18 10:29 LOIS 11/08/18 10:24 Wound Center Nurse 2 [Procedure/Treatment] #3 Mid Abdominal Fold -Time 10:26 -Correct Patient Yes -Correct Side, Site, Position Yes -Correct Procedure Yes -Procedure Performed Yes -Type of Procedure Debridement -Clinical Debridement Subcutaneous -Post Debridement Size (cm) - Length 1.2 -Post Debridement Size (cm) - Width 6.8 -Post Debridement Size (cm) - Depth 0.3 -Total Square Cm 8.16 -Wound/Ulcer Outcome Not Healed -Ulcer Cleansing Rinsed/ Irrigated with Saline -Foul Odor after Cleansing No -Bioengineered Tissue No -Bleeding Controlled with Pressure -Offloading No -Treatment Response Procedure Tolerated Well #2 right pannus post-op -Time 10:29 -Correct Patient Yes -Correct Side, Site, Position Yes -Correct Procedure Yes -Procedure Performed Yes -Type of Procedure Debridement -Clinical Debridement Subcutaneous -Post Debridement Size (cm) - Length 16.0 -Post Debridement Size (cm) - Width 27.2 -Post Debridement Size (cm) - Depth 0.2 -Total Square Cm 435.20 -Wound/Ulcer Outcome Not Healed -Ulcer Cleansing Rinsed/ Irrigated with Saline -Foul Odor after Cleansing No -Bioengineered Tissue No -Bleeding Controlled with Pressure -Offloading No -Treatment Response Procedure Tolerated Well [See Physician Procedure note for Specifics] Pain Scale: 0-10 Numeric [Pain] -Is Patient Pain Free? Yes Musculoskeletal: No Tenderness to Palpation of Joints or Extremities Neurological: Neuro grossly intact Psych/Mental Status: Normal Affect, Appropriate - She is in good spirits today and is talkative. She is better kempt today than she has been in the past. Debridement Note Post-Debridement Measurements/Treatment WC - Nurse 2 - General Ulcer CM Notes Start: 11/08/18 10:05 Freq: Status: Active Protocol: Activity Type Activity Date Activity User E-Sign Co-Sign Detail Recorded Client Recorded Date Recorded By Document 11/08/18 10:24 LOIS [id number] 11/08/18 10:29 JF 11/08/18 10:24 Wound Center Nurse 2 #3 Mid Abdominal Fold -Time 10:26 -Correct Patient Yes -Correct Side, Site, Position Yes -Correct Procedure Yes -Procedure Performed Yes -Type of Procedure Debridement -Clinical Debridement Subcutaneous -Post Debridement Size (cm) - Length 1.2 -Post Debridement Size (cm) - Width 6.8 -Post Debridement Size (cm) - Depth 0.3 -Total Square Cm 8.16 -Wound/Ulcer Outcome Not Healed -Ulcer Cleansing Rinsed/ Irrigated with Saline -Foul Odor after Cleansing No -Bioengineered Tissue No -Bleeding Controlled with Pressure -Offloading No -Treatment Response Procedure Tolerated Well #2 right pannus post-op -Time 10:29 -Correct Patient Yes -Correct Side, Site, Position Yes -Correct Procedure Yes -Procedure Performed Yes -Type of Procedure Debridement -Clinical Debridement Subcutaneous -Post Debridement Size (cm) - Length 16.0 -Post Debridement Size (cm) - Width 27.2 -Post Debridement Size (cm) - Depth 0.2 -Total Square Cm 435.20 -Wound/Ulcer Outcome Not Healed -Ulcer Cleansing Rinsed/ Irrigated with Saline -Foul Odor after Cleansing No -Bioengineered Tissue No -Bleeding Controlled with Pressure -Offloading No -Treatment Response Procedure Tolerated Well Pain Scale: 0-10 Numeric Is Patient Pain Free? Yes Wound debrided: Right lateral abdomen Laterality: Right Type of Debridement: Excisional debridement Anesthesia Used: 4% Lidocaine Solution Depth: Down to and including healthy tissue, in the subcutaneous layer Percentage of wound debrided: 100 Instrument Used: 7mm curette Tissue Removed: Subcutaneous tissue and slough Severity: Fat Layer Exposed Amount of bleeding with debridement: Mild Bleeding Controlled with: Pressure, Compression and gauze Patient tolerated procedure well - Additional Wound Wound debrided: Right medial abdomen in skin fold Laterality: Right Type of Debridement: Excisional debridement Anesthesia Used: 4% Lidocaine Solution Depth: Down to and including healthy tissue, in the subcutaneous layer Percentage of wound debrided: 100 Instrument Used: 5mm curette Tissue Removed: Subcutaneous tissue and slough Severity: Fat Layer Exposed Amount of bleeding with debridement: Mild Bleeding Controlled with: Pressure, Compression and gauze Patient tolerated procedure: Patient tolerated procedure well Assessment/Plan Active Problems Panniculitis (Chronic) Skin ulcer of abdominal wall with fat layer exposed (Chronic) Obesity, Class III, BMI 40-49.9 (morbid obesity) (Chronic) Prediabetes (Chronic) Assessment: 1. Nonhealing ulcers right lateral abdominal wall and lower anterior abdominal wall in massive abdominal panniculus. 2. Massive abdominal panniculus with panniculitis. 3. Borderline diabetes. 4. Abdominal wall skin crease intertrigo. 5. Morbid obesity. 6. Incisional hernia. 7. s/p surgical preparation right lateral abdominal wall massive panniculus with excisional debridement skin and subcutaneous tissue for necrotizing soft tissue infection and panniculectomy (858 cm2). Plan: Continue Dakin's dressing changes as it has helped to clean up the ulcer and improve the odor as well. There is residual fat necrosis in the ulcer that will persist until the next operative procedure. The next surgery will take place in 6 months because of her blood pressure issues after the last surgery necessitating ICU admission and pressors and PRBC. She understands that multiple procedures will be necessary. Also the central portion would be excised last because of the presence of the hernia. At that time would need assistance from General Surgery for repair of the hernia. Her operative culture showed Staphylococcus simulans, Corynebacterium striatum, and Corynebacterium amycolatum, and Anaerobic cocci. She has been on Levaquin. Cleocin will be added for 10 days. Her Prealbumin from 09/22/18 was 12.0. Encourage nutritional supplementation with protein to help the healing process. Followup one week. Her Lovenox has been stopped due to her her getting out of bed. She is better kempt. No odor from her wound. She is much better spirits today. Code Visit 111xxx-113xx: [id number] Josephine subq tissue 20 sq cm/< Add On Codes: 73991 Josephine subq tissue add-on - x22
[2018-11-22 11:55] VITALS: BP 125/73; PULSE 91; RESP 18; TEMP 36.3; BMI 78.4
--- NOTE | 2018-11-22 14:54 | PCM.WC.PN ---
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 Status: Chronic Current Visit: Yes Code(s): L98.492 - Non-pressure chronic ulcer of skin of other sites with fat layer exposed (2) Panniculitis Status: Chronic Current Visit: Yes Code(s): M79.3 - Panniculitis, unspecified (3) Obesity, Class III, BMI 40-49.9 (morbid obesity) Status: Chronic Current Visit: Yes Code(s): E66.01 - Morbid (severe) obesity due to excess calories (4) Prediabetes Status: Chronic Current Visit: Yes Code(s): R73.03 - Prediabetes (5) Necrotizing soft tissue infection Status: Chronic Current Visit: Yes Code(s): M79.89 - Other specified soft tissue disorders (6) Erythema intertrigo Status: Chronic Current Visit: Yes Code(s): L30.4 - Erythema intertrigo Comment: abdominal wall skin crease intertrigo (7) Incisional hernia Status: Chronic Current Visit: Yes Qualifiers: Obstruction and gangrene presence: without obstruction or gangrene Qualified Code(s): K43.2 - Incisional hernia without obstruction or gangrene; K43.91 - Incisional hernia, without obstruction or gangrene Code(s): K43.2 - Incisional hernia without obstruction or gangrene Type of Wound Date of Service: 11/22/18 Chief Complaint: Nonhealing ulcers right lateral abdominal wall and lower anterior abdominal wall. History of Wound: Surgery 09/21/18 - Surgical preparation right lateral abdominal wall massive panniculus with excisional debridement skin and subcutaneous tissue for necrotizing soft tissue infection and panniculectomy (858 cm2). Wound care - Traciin's dressing changes. Initially she had the VAC and had issues with it at the [facility]. Operative culture - Staphylococcus simulans, Corynebacteriurm striatum, Corynebacterium amycolatum, and Anaerobic cocci. She was treated initially with Vancomycin and then was placed on Levaquin for the ECF. With the recent Anaerobic cocci, will add Cleocin. Prealbumin from 09/22/18 was 12.0. Encouraged nutritional supplementation with protein to help the healing process. Today she denies fever. Her appetite is ok. She states she feels better as she is able to get out of bed easier at the [facility] and ambulate better. Progress of Wound: Improved. - Physical Exam Vital Signs Temp Pulse Resp BP 97.3 F L 91 18 125/73 H 11/22/18 11:55 11/22/18 11:55 11/22/18 11:55 11/22/18 11:55 General: Alert, Oriented x3, Cooperative HEENT: Atraumatic Oral: Moist Mucosa Lungs: Normal air movement Cardiovascular: Regular rate Skin: Ulcer/ Wound - Right abdomen Wound Measurements and Assessment WC - Nurse 1 - General Ulcer Measurement Start: 11/08/18 10:05 Freq: Status: Active Protocol: Activity Type Activity Date Activity User E-Sign Co-Sign Detail Recorded Client Recorded Date Recorded By Document 11/22/18 11:55 AN [id number] 11/22/18 12:14 AN 11/22/18 11:55 Wound Center Nurse 1 [Ulcer Assessment] #3 Mid Abdominal Fold -Current Size (cm) - Length 2.0 -Current Size (cm) - Width 4.8 -Current Size (cm) - Depth 0.1 -Total Square Cm 9.60 -Epithelialization None Present -Tunneling No -Undermining/Tunneling No -Classification - Thickness Full Thickness without Exposed Support Structure -Exudate Amt Large -Exudate Type Serosanguineous -Wound Margin Distinct, Outline Attached -Granulation Amt Large (67-100%) -Granulation Quality Red -Slough/Fibrin Yes -Necrosis Amt Small (1-33%) -Necrotic Tissue Type Adherent Slough -Structure Exposed None/Limited to Skin Breakdown -Texture (Lyly-wound Skin Appearance) Assessed Rash -Moisture (Lyly-wound Skin Appearance Assessed ) Maceration Weeping -Color (Lyly-wound Skin Appearance) Assessed Erythema -Temperature (Lyly-wound Skin No Abnormality Appearance) (Pt Warm) -Tenderness on Palpation (Lyly-wound Yes Skin Appearance) -Ulcer Cleansing Rinsed/ Irrigated with Saline #2 right pannus post-op -Current Size (cm) - Length 14 -Current Size (cm) - Width 17.2 -Current Size (cm) - Depth 0.1 -Total Square Cm 240.8 -Classification - Thickness Full Thickness without Exposed Support Structure -Exudate Amt Medium -Exudate Type Serosanguineous -Wound Margin Distinct, Outline Attached -Granulation Amt Large (67-100%) -Granulation Quality Red -Slough/Fibrin Yes -Necrosis Amt Small (1-33%) -Necrotic Tissue Type Adherent Slough -Structure Exposed None/Limited to Skin Breakdown -Texture (Lyly-wound Skin Appearance) Assessed Scarring -Moisture (Lyly-wound Skin Appearance Assessed ) -Color (Lyly-wound Skin Appearance) Assessed Erythema -Temperature (Lyly-wound Skin No Abnormality Appearance) (Pt Warm) -Tenderness on Palpation (Lyly-wound No Skin Appearance) -Ulcer Cleansing Rinsed/ Irrigated with Saline -Foul Odor after Cleansing No -Anesthetic Used 4% Lidocaine Solution WC - Nurse 2 - General Ulcer CM Notes Start: 11/08/18 10:05 Freq: Status: Active Protocol: Activity Type Activity Date Activity User E-Sign Co-Sign Detail Recorded Client Recorded Date Recorded By Document 11/22/18 12:58 MW [id number] 11/22/18 13:05 MW 11/22/18 12:58 Wound Center Nurse 2 [Procedure/Treatment] #3 Mid Abdominal Fold -Time 12:59 -Correct Patient Yes -Correct Side, Site, Position Yes -Correct Procedure Yes -Procedure Performed Yes -Type of Procedure Debridement -Clinical Debridement Subcutaneous -Post Debridement Size (cm) - Length 1.0 -Post Debridement Size (cm) - Width 5.3 -Post Debridement Size (cm) - Depth 0.2 -Total Square Cm 5.30 -Wound/Ulcer Outcome Not Healed -Ulcer Cleansing Rinsed/ Irrigated with Saline -Foul Odor after Cleansing No -Bioengineered Tissue No -Bleeding Controlled with Pressure -Offloading No -Treatment Response Procedure Tolerated Well #2 right pannus post-op -Time 12:59 -Correct Patient Yes -Correct Side, Site, Position Yes -Correct Procedure Yes -Procedure Performed Yes -Type of Procedure Debridement -Clinical Debridement Subcutaneous -Post Debridement Size (cm) - Length 15.7 -Post Debridement Size (cm) - Width 17.3 -Post Debridement Size (cm) - Depth 0.2 -Total Square Cm 271.61 -Wound/Ulcer Outcome Not Healed -Ulcer Cleansing Rinsed/ Irrigated with Saline -Foul Odor after Cleansing No -Bioengineered Tissue No -Bleeding Controlled with Pressure -Offloading No -Treatment Response Procedure Tolerated Well [See Physician Procedure note for Specifics] Pain Scale: 0-10 Numeric [Pain] -Is Patient Pain Free? Yes Musculoskeletal: No Tenderness to Palpation of Joints or Extremities Neurological: Neuro grossly intact Psych/Mental Status: Normal Affect, Appropriate Debridement Note Post-Debridement Measurements/Treatment WC - Nurse 2 - General Ulcer CM Notes Start: 11/08/18 10:05 Freq: Status: Active Protocol: Activity Type Activity Date Activity User E-Sign Co-Sign Detail Recorded Client Recorded Date Recorded By Document 11/08/18 10:24 [id number] 11/08/18 10:29 Document 11/22/18 12:58 MW [id number] 11/22/18 13:05 MW 11/08/18 11/22/18 10:24 12:58 Wound Center Nurse 2 #3 Mid Abdominal Fold -Time 10:26 12:59 -Correct Patient Yes Yes -Correct Side, Site, Position Yes Yes -Correct Procedure Yes Yes -Procedure Performed Yes Yes -Type of Procedure Debridement Debridement -Clinical Debridement Subcutaneous Subcutaneous -Post Debridement Size (cm) - Length 1.2 1.0 -Post Debridement Size (cm) - Width 6.8 5.3 -Post Debridement Size (cm) - Depth 0.3 0.2 -Total Square Cm 8.16 5.30 -Wound/Ulcer Outcome Not Healed Not Healed -Ulcer Cleansing Rinsed/ Rinsed/ Irrigated with Irrigated with Saline Saline -Foul Odor after Cleansing No No -Bioengineered Tissue No No -Bleeding Controlled with Pressure Pressure -Offloading No No -Treatment Response Procedure Procedure Tolerated Well Tolerated Well #2 right pannus post-op -Time 10:29 12:59 -Correct Patient Yes Yes -Correct Side, Site, Position Yes Yes -Correct Procedure Yes Yes -Procedure Performed Yes Yes -Type of Procedure Debridement Debridement -Clinical Debridement Subcutaneous Subcutaneous -Post Debridement Size (cm) - Length 16.0 15.7 -Post Debridement Size (cm) - Width 27.2 17.3 -Post Debridement Size (cm) - Depth 0.2 0.2 -Total Square Cm 435.20 271.61 -Wound/Ulcer Outcome Not Healed Not Healed -Ulcer Cleansing Rinsed/ Rinsed/ Irrigated with Irrigated with Saline Saline -Foul Odor after Cleansing No No -Bioengineered Tissue No No -Bleeding Controlled with Pressure Pressure -Offloading No No -Treatment Response Procedure Procedure Tolerated Well Tolerated Well Pain Scale: 0-10 Numeric Is Patient Pain Free? Yes Yes Wound debrided: Right abdomen Laterality: Right Type of Debridement: Excisional debridement Anesthesia Used: 4% Lidocaine Solution Depth: Down to and including healthy tissue, in the subcutaneous layer Percentage of wound debrided: 100 Instrument Used: 5mm curette Tissue Removed: Subcutaneous and tissue Severity: Limited To Skin Breakdown Amount of bleeding with debridement: Mild Bleeding Controlled with: Pressure, Compression and gauze Patient tolerated procedure well - Additional Wound Wound debrided: Right mid abdomen Laterality: Right Type of Debridement: Excisional debridement Anesthesia Used: 4% Lidocaine Solution Depth: Down to and including healthy tissue, in the subcutaneous layer Percentage of wound debrided: 100 Instrument Used: 5mm curette Tissue Removed: Subcutaneous tissue and slough Severity: Fat Layer Exposed Amount of bleeding with debridement: Mild Bleeding Controlled with: Pressure, Compression and gauze Patient tolerated procedure: Patient tolerated procedure well Assessment/Plan Active Problems (Last Reviewed 11/19/18 @ 10:25 by Angela Song) Panniculitis (Chronic) Necrotizing soft tissue infection (Chronic) Erythema intertrigo (Chronic) abdominal wall skin crease intertrigo Skin ulcer of abdominal wall with fat layer exposed (Chronic) Incisional hernia (Chronic) Obesity, Class III, BMI 40-49.9 (morbid obesity) (Chronic) Prediabetes (Chronic) Assessment: 1. Nonhealing ulcers right lateral abdominal wall and lower anterior abdominal wall in massive abdominal panniculus. 2. Massive abdominal panniculus with panniculitis. 3. Borderline diabetes. 4. Abdominal wall skin crease intertrigo. 5. Morbid obesity. 6. Incisional hernia. 7. s/p surgical preparation right lateral abdominal wall massive panniculus with excisional debridement skin and subcutaneous tissue for necrotizing soft tissue infection and panniculectomy (858 cm2). Plan: Continue Jeremiah's dressing changes. The wound is looking much imiproved. The next surgery will take place in 6 months because of her blood pressure issues after the last surgery necessitating ICU admission and pressors and PRBC. She understands that multiple procedures will be necessary. Also the central portion would be excised last because of the presence of the hernia. At that time would need assistance from General Surgery for repair of the hernia. Her operative culture showed Staphylococcus simulans, Corynebacterium striatum, and Corynebacterium amycolatum, and Anaerobic cocci. She has been on Levaquin. Cleocin will be added for 10 days. Her Prealbumin from 09/22/18 was 12.0. Encourage nutritional supplementation with protein to help the healing process. Followup two weeks. She has a colonoscopy scheduled next. Her Lovenox has been stopped due to her her getting out of bed. She is better kempt. No odor from her wound. She is much better spirits today. Code Visit 111xxx-113xx: 50451 Josephine subq tissue 20 sq cm/< Add On Codes: [id number] Josephine subq tissue add-on - x 13
--- NOTE | 2018-11-22 14:59 | PN.PCM_ITS ---
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 Status: Chronic Current Visit: Yes Code(s): L98.492 - Non-pressure chronic ulcer of skin of other sites with fat layer exposed (2) Panniculitis Status: Chronic Current Visit: Yes Code(s): M79.3 - Panniculitis, unspecified (3) Obesity, Class III, BMI 40-49.9 (morbid obesity) Status: Chronic Current Visit: Yes Code(s): E66.01 - Morbid (severe) obesity due to excess calories (4) Prediabetes Status: Chronic Current Visit: Yes Code(s): R73.03 - Prediabetes (5) Necrotizing soft tissue infection Status: Chronic Current Visit: Yes Code(s): M79.89 - Other specified soft tissue disorders (6) Erythema intertrigo Status: Chronic Current Visit: Yes Code(s): L30.4 - Erythema intertrigo Comment: abdominal wall skin crease intertrigo (7) Incisional hernia Status: Chronic Current Visit: Yes Qualifiers: Obstruction and gangrene presence: without obstruction or gangrene Qualified Code(s): K43.2 - Incisional hernia without obstruction or gangrene; K43.91 - Incisional hernia, without obstruction or gangrene Code(s): K43.2 - Incisional hernia without obstruction or gangrene Type of Wound Date of Service: 11/22/18 Chief Complaint: Nonhealing ulcers right lateral abdominal wall and lower anterior abdominal wall. History of Wound: Surgery 09/21/18 - Surgical preparation right lateral abd ominal wall massive panniculus with excisional debridement skin and subcutaneous tissue for necrotizing soft tissue infection and panniculectomy (858 cm2). Wound care - Traciin's dressing changes. Initially she had the VAC and had issues with it at the ECF. Operative culture - Staphylococcus simulans, Corynebacteriurm striatum, Corynebacterium amycolatum, and Anaerobic cocci. She was treated initially with Vancomycin and then was placed on Levaquin for the ECF. With the recent Anaerobic cocci, will add Cleocin. Prealbumin from 09/22/18 was 12.0. Encouraged nutritional supplementation with protein to help the healing process. Today she denies fever. Her appetite is ok. She states she feels better as she is able to get out of bed easier at the ECF and ambulate better. Progress of Wound: Improved. - Physical Exam Vital Signs Temp Pulse Resp BP 97.3 F L 91 18 125/73 H 11/22/18 11:55 11/22/18 11:55 11/22/18 11:55 11/22/18 11:55 General: Alert, Oriented x3, Cooperative HEENT: Atraumatic Oral: Moist Mucosa Lungs: Normal air movement Cardiovascular: Regular rate Skin: Ulcer/ Wound - Right abdomen Wound Measurements and Assessment WC - Nurse 1 - General Ulcer Measurement Start: 11/08/18 10:05 Freq: Status: Active Protocol: Activity Type Activity Date Activity User E-Sign Co-Sign Detail Recorded Client Recorded Date Recorded By Document 11/22/18 11:55 AN [id number] 11/22/18 12:14 AN 11/22/18 11:55 Wound Center Nurse 1 [Ulcer Assessment] #3 Mid Abdominal Fold -Current Size (cm) - Length 2.0 -Current Size (cm) - Width 4.8 -Current Size (cm) - Depth 0.1 -Total Square Cm 9.60 -Epithelialization None Present -Tunneling No -Undermining/Tunneling No -Classification - Thickness Full Thickness without Exposed Support Structure -Exudate Amt Large -Exudate Type Serosanguineous -Wound Margin Distinct, Outline Attached -Granulation Amt Large (67-100%) -Granulation Quality Red -Slough/Fibrin Yes -Necrosis Amt Small (1-33%) -Necrotic Tissue Type Adherent Slough -Structure Exposed None/Limited to Skin Breakdown -Texture (Lyly-wound Skin Appearance) Assessed Rash -Moisture (Lyly-wound Skin Appearance Assessed ) Maceration Weeping -Color (Lyly-wound Skin Appearance) Assessed Erythema -Temperature (Lyly-wound Skin No Abnormality Appearance) (Pt Warm) -Tenderness on Palpation (Lyly-wound Yes Skin Appearance) -Ulcer Cleansing Rinsed/ Irrigated with Saline #2 right pannus post-op -Current Size (cm) - Length 14 -Current Size (cm) - Width 17.2 -Current Size (cm) - Depth 0.1 -Total Square Cm 240.8 -Classification - Thickness Full Thickness without Exposed Support Structure -Exudate Amt Medium -Exudate Type Serosanguineous -Wound Margin Distinct, Outline Attached -Granulation Amt Large (67-100%) -Granulation Quality Red -Slough/Fibrin Yes -Necrosis Amt Small (1-33%) -Necrotic Tissue Type Adherent Slough -Structure Exposed None/Limited to Skin Breakdown -Texture (Lyly-wound Skin Appearance) Assessed Scarring -Moisture (Lyly-wound Skin Appearance Assessed ) -Color (Lyly-wound Skin Appearance) Assessed Erythema -Temperature (Lyly-wound Skin No Abnormality Appearance) (Pt Warm) -Tenderness on Palpation (Lyly-wound No Skin Appearance) -Ulcer Cleansing Rinsed/ Irrigated with Saline -Foul Odor after Cleansing No -Anesthetic Used 4% Lidocaine Solution WC - Nurse 2 - General Ulcer CM Notes Start: 11/08/18 10:05 Freq: Status: Active Protocol: Activity Type Activity Date Activity User E-Sign Co-Sign Detail Recorded Client Recorded Date Recorded By Document 11/22/18 12:58 MW [id number] 11/22/18 13:05 MW 11/22/18 12:58 Wound Center Nurse 2 [Procedure/Treatment] #3 Mid Abdominal Fold -Time 12:59 -Correct Patient Yes -Correct Side, Site, Position Yes -Correct Procedure Yes -Procedure Performed Yes -Type of Procedure Debridement -Clinical Debridement Subcutaneous -Post Debridement Size (cm) - Length 1.0 -Post Debridement Size (cm) - Width 5.3 -Post Debridement Size (cm) - Depth 0.2 -Total Square Cm 5.30 -Wound/Ulcer Outcome Not Healed -Ulcer Cleansing Rinsed/ Irrigated with Saline -Foul Odor after Cleansing No -Bioengineered Tissue No -Bleeding Controlled with Pressure -Offloading No -Treatment Response Procedure Tolerated Well #2 right pannus post-op -Time 12:59 -Correct Patient Yes -Correct Side, Site, Position Yes -Correct Procedure Yes -Procedure Performed Yes -Type of Procedure Debridement -Clinical Debridement Subcutaneous -Post Debridement Size (cm) - Length 15.7 -Post Debridement Size (cm) - Width 17.3 -Post Debridement Size (cm) - Depth 0.2 -Total Square Cm 271.61 -Wound/Ulcer Outcome Not Healed -Ulcer Cleansing Rinsed/ Irrigated with Saline -Foul Odor after Cleansing No -Bioengineered Tissue No -Bleeding Controlled with Pressure -Offloading No -Treatment Response Procedure Tolerated Well [See Physician Procedure note for Specifics] Pain Scale: 0-10 Numeric [Pain] -Is Patient Pain Free? Yes Musculoskeletal: No Tenderness to Palpation of Joints or Extremities Neurological: Neuro grossly intact Psych/Mental Status: Normal Affect, Appropriate Debridement Note Post-Debridement Measurements/Treatment WC - Nurse 2 - General Ulcer CM Notes Start: 11/08/18 10:05 Freq: Status: Active Protocol: Activity Type Activity Date Activity User E-Sign Co-Sign Detail Recorded Client Recorded Date Recorded By Document 11/08/18 10:24 [id number] 11/08/18 10:29 Document 11/22/18 12:58 MW [id number] 11/22/18 13:05 MW 11/08/18 11/22/18 10:24 12:58 Wound Center Nurse 2 #3 Mid Abdominal Fold -Time 10:26 12:59 -Correct Patient Yes Yes -Correct Side, Site, Position Yes Yes -Correct Procedure Yes Yes -Procedure Performed Yes Yes -Type of Procedure Debridement Debridement -Clinical Debridement Subcutaneous Subcutaneous -Post Debridement Size (cm) - Length 1.2 1.0 -Post Debridement Size (cm) - Width 6.8 5.3 -Post Debridement Size (cm) - Depth 0.3 0.2 -Total Square Cm 8.16 5.30 -Wound/Ulcer Outcome Not Healed Not Healed -Ulcer Cleansing Rinsed/ Rinsed/ Irrigated with Irrigated with Saline Saline -Foul Odor after Cleansing No No -Bioengineered Tissue No No -Bleeding Controlled with Pressure Pressure -Offloading No No -Treatment Response Procedure Procedure Tolerated Well Tolerated Well #2 right pannus post-op -Time 10:29 12:59 -Correct Patient Yes Yes -Correct Side, Site, Position Yes Yes -Correct Procedure Yes Yes -Procedure Performed Yes Yes -Type of Procedure Debridement Debridement -Clinical Debridement Subcutaneous Subcutaneous -Post Debridement Size (cm) - Length 16.0 15.7 -Post Debridement Size (cm) - Width 27.2 17.3 -Post Debridement Size (cm) - Depth 0.2 0.2 -Total Square Cm 435.20 271.61 -Wound/Ulcer Outcome Not Healed Not Healed -Ulcer Cleansing Rinsed/ Rinsed/ Irrigated with Irrigated with Saline Saline -Foul Odor after Cleansing No No -Bioengineered Tissue No No -Bleeding Controlled with Pressure Pressure -Offloading No No -Treatment Response Procedure Procedure Tolerated Well Tolerated Well Pain Scale: 0-10 Numeric Is Patient Pain Free? Yes Yes Wound debrided: Right abdomen Laterality: Right Type of Debridement: Excisional debridement Anesthesia Used: 4% Lidocaine Solution Depth: Down to and including healthy tissue, in the subcutaneous layer Percentage of wound debrided: 100 Instrument Used: 5mm curette Tissue Removed: Subcutaneous and tissue Severity: Limited To Skin Breakdown Amount of bleeding with debridement: Mild Bleeding Controlled with: Pressure, Compression and gauze Patient tolerated procedure well - Additional Wound Wound debrided: Right mid abdomen Laterality: Right Type of Debridement: Excisional debridement Anesthesia Used: 4% Lidocaine Solution Depth: Down to and including healthy tissue, in the subcutaneous layer Percentage of wound debrided: 100 Instrument Used: 5mm curette Tissue Removed: Subcutaneous tissue and slough Severity: Fat Layer Exposed Amount of bleeding with debridement: Mild Bleeding Controlled with: Pressure, Compression and gauze Patient tolerated procedure: Patient tolerated procedure well Assessment/Plan Active Problems (Last Reviewed 11/19/18 @ 10:25 by Angela Song) Panniculitis (Chronic) Necrotizing soft tissue infection (Chronic) Erythema intertrigo (Chronic) abdominal wall skin crease intertrigo Skin ulcer of abdominal wall with fat layer exposed (Chronic) Incisional hernia (Chronic) Obesity, Class III, BMI 40-49.9 (morbid obesity) (Chronic) Prediabetes (Chronic) Assessment: 1. Nonhealing ulcers right lateral abdominal wall and lower anterior abdominal wall in massive abdominal panniculus. 2. Massive abdominal panniculus with panniculitis. 3. Borderline diabetes. 4. Abdominal wall skin crease intertrigo. 5. Morbid obesity. 6. Incisional hernia. 7. s/p surgical preparation right lateral abdominal wall massive panniculus with excisional debridement skin and subcutaneous tissue for necrotizing soft tissue infection and panniculectomy (858 cm2). Plan: Continue Dakin's dressing changes. The wound is looking much imiproved. The next surgery will take place in 6 months because of her blood pressure issues after the last surgery necessitating ICU admission and pressors and PRBC. She understands that multiple procedures will be necessary. Also the central portion would be excised last because of the presence of the hernia. At that time would need assistance from General Surgery for repair of the hernia. Her operative culture showed Staphylococcus simulans, Corynebacterium striatum, and Corynebacterium amycolatum, and Anaerobic cocci. She has been on Levaquin. Cleocin will be added for 10 days. Her Prealbumin from 09/22/18 was 12.0. Encourage nutritional supplementation with protein to help the healing process. Followup two weeks. She has a colonoscopy scheduled next. Her Lovenox has been stopped due to her her getting out of bed. She is better kempt. No odor from her wound. She is much better spirits today. Code Visit 111xxx-113xx: 49323 Josephine subq tissue 20 sq cm/< Add On Codes: [id number] Josephine subq tissue add-on - x 13
== END 2018-12-02 23:59 ==
LOC: WC 11:30
PROVIDERS: Family Provider Student in an Organized Health Care Education/Training Program; PCP Student in an Organized Health Care Education/Training Program; Visit Provider Nurse Practitioner Family
DX: L98.492 Non-pressure chronic ulcer of skin of other sites with fat layer exposed (principal); E66.01 Morbid (severe) obesity due to excess calories; Z71.3 Dietary counseling and surveillance; E65 Localized adiposity; L30.4 Erythema intertrigo; R73.03 Prediabetes
CPT/HCPCS: 11042; 11045

== ENCOUNTER 2018-12-01 08:17 | Day surgery (SDC) | payer MEDICAID, SELFPAY ==
[2018-12-01 08:46] LABS: Bedside Glucose 92 mg/dL (70-110)
[2018-12-01 08:51] VITALS: BP 118/62; PULSE 102; RESP 18; TEMP 36.6; O2SAT 95; BMI 70.8
--- NOTE | 2018-12-01 09:30 | EGD_PTH ---
PATIENT: ROSALIE RUFF LOC: EN U#:[id number] AGE/SX: 43/F ROOM: RE12/01/[address]: Dr. Sveta Soria MD : 1975 BED: DIS: 12/01/2018 SPEC #: [id number] RECD: 12/01/18 10:28 STATUS: NIMISHA EVANGELISTA #: [id number] TANA: 12/01/18 09:[address]: Sveta Soria DEPT: SURGICAL PATHOLOGY RECD BY: Uri Arguello ENTERED: 12/01/18 11:57 SP TYPE: EGD BIOPSY OTHR DR: Dr. Franco Bardales, Tissues: Gastric mucous membrane Procedures: Surgery Specimen Level IV HEADER OPERATION: Colonoscopy, EGD ([facility] [place]) PRE-OP DIAGNOSIS: Blood in stool, anemia TISSUE SUBMITTED: Antral biopsy for histo and H. pylori MICROSCOPIC DIAGNOSIS Antral biopsy: Mild chronic gastritis. CE:jeromy 2/28/19 COMMENT The results of immunohistochemistry for Helicobacter pylori will be reported separately ([id number]). MICROSCOPIC DESCRIPTION Slides are reviewed. GROSS DESCRIPTION Received in fixative is one container labeled with the patient's name and designated antral biopsy. The specimen consists of one irregular fragment of light luna soft tissue that measures 0.3 x 0.2 x 0.1 cm. The specimen is totally submitted in one cassette. / CE:jeromy 12/01/18 TC: 3 CPT: 35911
--- NOTE | 2018-12-01 09:30 | IMM_PTH ---
PATIENT: ROSALIE RUFF LOC: EN U#:[id number] AGE/SX: 43/F ROOM: RE12/01/[address]: Dr. Sveta Soria MD : 1975 BED: DIS: 12/01/2018 SPEC #: [id number] RECD: 12/01/18 14:44 STATUS: NIMISHA REQ #: [id number] TANA: 12/01/18 09:[address]: Sveta Soria DEPT: IMMUNOHISTOCHEMISTRY RECD BY: Yue Rasheed ENTERED: 12/01/18 14:45 SP TYPE: IMMUNO OTHR DR: Dr. Franco Bardales DO Tissues: Stomach, NOS Procedures: H Pylori (initial) PHYSICIAN & INSTITUTION [place] [id number] SPECIMEN INFORMATION: Tissue Source: [place] [place] Clinical Info: Blood in stool, anemia Specimen Number: [id number] CPT code: 55497 METHODOLOGY: Deparaffinized sections of prefer/formalin-fixed tissue or PAP/DQ stained slides are incubated with monoclonal/polyclonal antibodies/oligonucleotide probes. Localization is made via biotin free immunoperoxidase method. Appropriate controls are performed and reacted as expected. Results on target cell population are indicated in the following table: RESULTS: ANTIBODY / CLONE RESULT H Pylori (polyclonal) negative These tests were developed and their performance characteristics determined by [facility]. They may not have been cleared or approved by the U.S. Food and Drug Administration. The FDA has determined that such clearance or approval is not necessary. INTERPRETATION: Antral biopsy: Negative for Helicobacter pylori organisms. CE:jeromy 12/02/18
[2018-12-01 10:16] VITALS: BP 118/62; BP 125/62; PULSE 80; RESP 16; TEMP 37.6; O2SAT 93
[2018-12-01 10:20] VITALS: BP 103/53; BP 118/62; PULSE 82; RESP 16; O2SAT 93
--- NOTE | 2018-12-01 10:21 | OP.ENDO_ITS ---
12/01/2018 Franco Bardales [address] [id number] Re : Upper GI endoscopy procedure for Didi Horne Dear Dr. Bardales This procedure was performed on Saturday, December 01, 2018. My impressions and recommendations are as follows: Impressions : - Normal esophagus. - Normal examined duodenum. - Erythematous mucosa in the antrum. - No specimens collected. - fundic polyp seen x 1 Recommendations : - Discharge patient to a senior care. - Await pathology results. - Continue present medications. My findings are described in the full procedure note, which is enclosed. If I can be of further assistance, please feel free to contact me at Doctor phone number(s): , Work: . Sincerely, MD Sveta Capellan MD 12/01/2018 10:21:11 AM This report has been signed electronically.
[2018-12-01 10:25] VITALS: BP 114/51; BP 118/62; PULSE 85; RESP 16; O2SAT 98
--- NOTE | 2018-12-01 10:25 | OP.ENDO_ITS ---
12/01/2018 Franco Bardales [address] [id number] Re : Colonoscopy procedure for Didi Coleen Dear Dr. Bardales This procedure was performed on Saturday, December 01, 2018. My impressions and recommendations are as follows: Impressions : - The entire examined colon is normal on direct and retroflexion views. - No specimens collected. Recommendations : - Discharge patient to a intermediate. - Continue present medications. - Repeat colonoscopy in 10 years for screening purposes. My findings are described in the full procedure note, which is enclosed. If I can be of further assistance, please feel free to contact me at Doctor phone number(s): , Work: . Sincerely, MD Sveta Capellan MD 12/01/2018 10:25:20 AM This report has been signed electronically.
[2018-12-01 10:34] VITALS: BP 102/53; BP 118/62; PULSE 85; RESP 16; TEMP 36.7; O2SAT 98
[2018-12-01 11:14] VITALS: BP 118/62
== END 2018-12-01 11:17 | disposition home or self-care (01) ==
LOC: EN 08:20 → AC 08:22
PROVIDERS: Family Provider Student in an Organized Health Care Education/Training Program; PCP Student in an Organized Health Care Education/Training Program; Referring Provider Surgery; Visit Provider Surgery
PROC: 0DJD8ZZ Inspection of Lower Intestinal Tract, Via Natural or Artificial Opening Endoscopic (ICD-10-PCS; CPT 45378; principal; 2018-12-01 09:25)
DX: K29.50 Unspecified chronic gastritis without bleeding (principal); D62 Acute posthemorrhagic anemia; K21.9 Gastro-esophageal reflux disease without esophagitis; F41.9 Anxiety disorder, unspecified; F32.9 Major depressive disorder, single episode, unspecified; G47.33 Obstructive sleep apnea (adult) (pediatric); J45.909 Unspecified asthma, uncomplicated; I10 Essential (primary) hypertension; E03.9 Hypothyroidism, unspecified; R73.03 Prediabetes; E66.01 Morbid (severe) obesity due to excess calories; Z68.45 Body mass index [BMI] 70 or greater, adult; Z79.51 Long term (current) use of inhaled steroids; Z79.84 Long term (current) use of oral hypoglycemic drugs; Z79.899 Other long term (current) drug therapy
CPT/HCPCS: 43239; 45378; 82962; 88305; 88342; J7120

== ENCOUNTER 2018-12-27 09:30 | Outpatient (RCR) | payer MEDICAID, SELFPAY ==
[2018-12-03 01:32] VITALS: BP 125/73; PULSE 91; RESP 18; TEMP 36.3; BMI 78.4
[2018-12-06 09:25] VITALS: BP 150/95; PULSE 110; RESP 18; TEMP 35.7; BMI 78.4
--- NOTE | 2018-12-06 16:53 | PCM.WC.PN ---
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 Status: Chronic Current Visit: Yes Code(s): L98.492 - Non-pressure chronic ulcer of skin of other sites with fat layer exposed (2) Abdominal panniculus, symptomatic Status: Chronic Current Visit: Yes Code(s): E65 - Localized adiposity (3) Erythema intertrigo Status: Chronic Current Visit: Yes Code(s): L30.4 - Erythema intertrigo Comment: abdominal wall skin crease intertrigo (4) Obesity, Class III, BMI 40-49.9 (morbid obesity) Status: Chronic Current Visit: Yes Code(s): E66.01 - Morbid (severe) obesity due to excess calories Type of Wound Date of Service: 12/06/18 Chief Complaint: Nonhealing ulcers right lateral abdominal wall and lower anterior abdominal wall. History of Wound: Surgery 09/21/18 - Surgical preparation right lateral abdominal wall massive panniculus with excisional debridement skin and subcutaneous tissue for necrotizing soft tissue infection and panniculectomy (858 cm2). Wound care - Traciin's dressing changes. Initially she had the VAC and had issues with it at the ECF. Today denies any fever, chills or nausea. She states her appetite is good and she is supplementing with protein shakes. Operative culture - Staphylococcus simulans, Corynebacteriurm striatum, Corynebacterium amycolatum, and Anaerobic cocci. She was treated initially with Vancomycin and then was placed on Levaquin for the ECF. With the recent Anaerobic cocci, will add Cleocin. Prealbumin from 09/22/18 was 12.0. Encouraged nutritional supplementation with protein to help the healing process. Today she denies fever. Her appetite is ok. She states she feels better as she is able to get out of bed easier at the ECF and ambulate better. Progress of Wound: Improved. - Physical Exam Vital Signs Temp Pulse Resp BP 96.2 F L 110 H 18 150/95 H 12/06/18 09:25 12/06/18 09:25 12/06/18 09:25 12/06/18 09:25 General: Alert, Oriented x3, Cooperative HEENT: Atraumatic Oral: Moist Mucosa Lungs: Normal air movement Cardiovascular: Regular rate Extremities: Capillary Refill Less than 3 Seconds, Edema Skin: Ulcer/ Wound - Right abdominal pannus and small mid abdominal open area in a skin fold. Wound Measurements and Assessment WC - Nurse 1 - General Ulcer Measurement Start: 12/06/18 09:25 Freq: Status: Active Protocol: Activity Type Activity Date Activity User E-Sign Co-Sign Detail Recorded Client Recorded Date Recorded By Document 12/06/18 09:25 RB [id number] 12/06/18 09:37 RB 12/06/18 09:25 Wound Center Nurse 1 [Ulcer Assessment] #3 Mid Abdominal Fold -Combined with other wound No -Current Size (cm) - Length 2.3 -Current Size (cm) - Width 0.7 -Current Size (cm) - Depth 0.2 -Total Square Cm 1.61 -Photo Taken No -Tunneling No -Undermining/Tunneling No -Circular Undermining No -Exudate Amt Medium -Exudate Type Serosanguineous -Wound Margin Distinct, Outline Attached -Granulation Amt Large (67-100%) -Granulation Quality [place] Red -Slough/Fibrin Yes -Necrosis Amt Small (1-33%) -Necrotic Tissue Type Adherent Slough -Structure Exposed N/A -Texture (Lyly-wound Skin Appearance) Assessed -Moisture (Lyly-wound Skin Appearance Assessed ) -Color (Lyly-wound Skin Appearance) Assessed -Temperature (Lyly-wound Skin No Abnormality Appearance) (Pt Warm) -Tenderness on Palpation (Lyly-wound No Skin Appearance) -Ulcer Cleansing Wound Cleanser -Foul Odor after Cleansing No -Anesthetic Used 4% Lidocaine Solution #2 right pannus post-op -Combined with other wound No -Current Size (cm) - Length 16.4 -Current Size (cm) - Width 10.8 -Current Size (cm) - Depth 0.5 -Total Square Cm 177.12 -Photo Taken No -Tunneling No -Undermining/Tunneling No -Circular Undermining No -Exudate Amt Large -Exudate Type Serosanguineous -Wound Margin Distinct, Outline Attached -Granulation Amt Large (67-100%) -Granulation Quality [place] Red -Slough/Fibrin Yes -Necrosis Amt Small (1-33%) -Necrotic Tissue Type Adherent Slough -Structure Exposed N/A -Texture (Lyly-wound Skin Appearance) Assessed -Moisture (Lyly-wound Skin Appearance Assessed ) -Color (Lyly-wound Skin Appearance) Assessed -Temperature (Lyly-wound Skin No Abnormality Appearance) (Pt Warm) -Tenderness on Palpation (Lyly-wound No Skin Appearance) -Ulcer Cleansing Wound Cleanser -Foul Odor after Cleansing No -Anesthetic Used 4% Lidocaine Solution WC - Nurse 2 - General Ulcer CM Notes Start: 12/06/18 09:25 Freq: Status: Active Protocol: Activity Type Activity Date Activity User E-Sign Co-Sign Detail Recorded Client Recorded Date Recorded By Document 12/06/18 09:51 [id number] 12/06/18 09:57 12/06/18 09:51 Wound Center Nurse 2 [Procedure/Treatment] #3 Mid Abdominal Fold -Time 09:52 -Correct Patient Yes -Correct Side, Site, Position Yes -Correct Procedure Yes -Procedure Performed Yes -Type of Procedure Debridement -Clinical Debridement Subcutaneous -Post Debridement Size (cm) - Length 0.7 -Post Debridement Size (cm) - Width 2.7 -Post Debridement Size (cm) - Depth 0.2 -Total Square Cm 1.89 -Wound/Ulcer Outcome Not Healed -Ulcer Cleansing Rinsed/ Irrigated with Saline -Foul Odor after Cleansing No -Bioengineered Tissue No -Bleeding Controlled with Pressure -Offloading No -Treatment Response Procedure Tolerated Well #2 right pannus post-op -Time 09:53 -Correct Patient Yes -Correct Side, Site, Position Yes -Correct Procedure Yes -Procedure Performed Yes -Type of Procedure Debridement -Clinical Debridement Subcutaneous -Post Debridement Size (cm) - Length 11.5 -Post Debridement Size (cm) - Width 16.0 -Post Debridement Size (cm) - Depth 1.2 -Total Square Cm 184.00 -Wound/Ulcer Outcome Not Healed -Ulcer Cleansing Rinsed/ Irrigated with Saline -Foul Odor after Cleansing No -Bioengineered Tissue No -Bleeding Controlled with Pressure -Offloading No -Treatment Response Procedure Tolerated Well [See Physician Procedure note for Specifics] Pain Scale: 0-10 Numeric [Pain] -Is Patient Pain Free? Yes Musculoskeletal: No Tenderness to Palpation of Joints or Extremities Neurological: Neuro grossly intact Psych/Mental Status: Normal Affect, Appropriate, Agitated Debridement Note Post-Debridement Measurements/Treatment WC - Nurse 2 - General Ulcer CM Notes Start: 12/06/18 09:25 Freq: Status: Active Protocol: Activity Type Activity Date Activity User E-Sign Co-Sign Detail Recorded Client Recorded Date Recorded By Document 12/06/18 09:51 [email or web address] 12/06/18 09:57 [email or web address] 12/06/18 09:51 Wound Center Nurse 2 #3 Mid Abdominal Fold -Time 09:52 -Correct Patient Yes -Correct Side, Site, Position Yes -Correct Procedure Yes -Procedure Performed Yes -Type of Procedure Debridement -Clinical Debridement Subcutaneous -Post Debridement Size (cm) - Length 0.7 -Post Debridement Size (cm) - Width 2.7 -Post Debridement Size (cm) - Depth 0.2 -Total Square Cm 1.89 -Wound/Ulcer Outcome Not Healed -Ulcer Cleansing Rinsed/ Irrigated with Saline -Foul Odor after Cleansing No -Bioengineered Tissue No -Bleeding Controlled with Pressure -Offloading No -Treatment Response Procedure Tolerated Well #2 right pannus post-op -Time 09:53 -Correct Patient Yes -Correct Side, Site, Position Yes -Correct Procedure Yes -Procedure Performed Yes -Type of Procedure Debridement -Clinical Debridement Subcutaneous -Post Debridement Size (cm) - Length 11.5 -Post Debridement Size (cm) - Width 16.0 -Post Debridement Size (cm) - Depth 1.2 -Total Square Cm 184.00 -Wound/Ulcer Outcome Not Healed -Ulcer Cleansing Rinsed/ Irrigated with Saline -Foul Odor after Cleansing No -Bioengineered Tissue No -Bleeding Controlled with Pressure -Offloading No -Treatment Response Procedure Tolerated Well Pain Scale: 0-10 Numeric Is Patient Pain Free? Yes Wound debrided: right pannus Laterality: Right Type of Debridement: Excisional debridement Anesthesia Used: 4% Lidocaine Solution Depth: Down to and including healthy tissue, in the subcutaneous layer Percentage of wound debrided: 100 Instrument Used: 7mm curette Tissue Removed: Subcutaneous tissue and slough Severity: Fat Layer Exposed Amount of bleeding with debridement: Mild Bleeding Controlled with: Pressure, Compression and gauze Patient tolerated procedure well Ulcer area is looking clean and beefy in color. The majority of the fat necrosis is gone since using the Dakin's solution. She has a decrease in the amount of slough and biofilm present. Assessment/Plan Active Problems (Last Reviewed 11/19/18 @ 10:25 by Angela Song) Erythema intertrigo (Chronic) abdominal wall skin crease intertrigo Abdominal panniculus, symptomatic (Chronic) Skin ulcer of abdominal wall with fat layer exposed (Chronic) Obesity, Class III, BMI 40-49.9 (morbid obesity) (Chronic) Assessment: 1. Nonhealing ulcers right lateral abdominal wall and lower anterior abdominal wall in massive abdominal panniculus. 2. Massive abdominal panniculus with panniculitis. 3. Borderline diabetes. 4. Abdominal wall skin crease intertrigo. 5. Morbid obesity. 6. Incisional hernia. 7. s/p surgical preparation right lateral abdominal wall massive panniculus with excisional debridement skin and subcutaneous tissue for necrotizing soft tissue infection and panniculectomy (858 cm2). Plan: Continue Dakin's dressing changes. The wound is looking much imiproved. The next surgery will take place in 6 months because of her blood pressure issues after the last surgery necessitating ICU admission and pressors and PRBC. She understands that multiple procedures will be necessary. Also the central portion would be excised last because of the presence of the hernia. At that time would need assistance from General Surgery for repair of the hernia. Her operative culture showed Staphylococcus simulans, Corynebacterium striatum, and Corynebacterium amycolatum, and Anaerobic cocci. She has been on Levaquin. Cleocin will be added for 10 days. Her Prealbumin from 09/22/18 was 12.0. Encourage nutritional supplementation with protein to help the healing process. She came home from [place] over the weekend. She is doing well. She states she has lost over 100 lbs since her surgery and is feeling well. She states she is able to move easier. Followup one week. Code Visit 111xxx-113xx: 19463 Josephine subq tissue 20 sq cm/< Add On Codes: 97258 Josephine subq tissue add-on - x 9
[2018-12-13 09:25] VITALS: BP 125/72; PULSE 106; RESP 22; TEMP 36.4; BMI 78.4
--- NOTE | 2018-12-13 11:23 | PN.PCM_ITS ---
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 Status: Chronic Current Visit: Yes Code(s): L98.492 - Non-pressure chronic ulcer of skin of other sites with fat layer exposed (2) Abdominal panniculus, symptomatic Status: Chronic Current Visit: Yes Code(s): E65 - Localized adiposity (3) Erythema intertrigo Status: Chronic Current Visit: Yes Code(s): L30.4 - Erythema intertrigo Comment: abdominal wall skin crease intertrigo (4) Obesity, Class III, BMI 40-49.9 (morbid obesity) Status: Chronic Current Visit: Yes Code(s): E66.01 - Morbid (severe) obesity due to excess calories Type of Wound Date of Service: 12/13/18 Chief Complaint: Nonhealing ulcers right lateral abdominal wall and lower anterior abdominal wall. History of Wound: Surgery 09/21/18 - Surgical preparation right lateral abdominal wall massive panniculus with excisional debridement skin and subcutaneous tissue for necrotizing soft tissue infection and panniculectomy (858 cm2). Wound care - Dakin's dressing changes. Initially she had the VAC and had issues with it at the ECF. Today denies any fever, chills or nausea. She states her appetite is good and she is supplementing with protein shakes. Operative culture - Staphylococcus simulans, Corynebacteriurm striatum, Corynebacterium amycolatum, and Anaerobic cocci. She was treated initially with Vancomycin and then was placed on Levaquin for the ECF. With the recent Anaerobic cocci, will add Cleocin. Prealbumin from 09/22/18 was 12.0. Encourag ed nutritional supplementation with protein to help the healing process. Today she denies fever. Her appetite is ok. She states she feels better as she is able to get out of bed easier at the ECF and ambulate better. Progress of Wound: Improved. - Physical Exam Vital Signs Temp Pulse Resp BP 97.5 F L 106 H 22 H 125/72 H 12/13/18 09:25 12/13/18 09:25 12/13/18 09:25 12/13/18 09:25 General: Alert, Oriented x3, Cooperative HEENT: Atraumatic Oral: Moist Mucosa Lungs: Normal air movement Cardiovascular: Regular rate Abdomen: Soft, Obese Extremities: Capillary Refill Less than 3 Seconds Skin: Ulcer/ Wound - Right abdominal pannus and mid abdominal ulcer Wound Measurements and Assessment WC - Nurse 1 - General Ulcer Measurement Start: 12/06/18 09:25 Freq: Status: Active Protocol: Activity Type Activity Date Activity User E-Sign Co-Sign Detail Recorded Client Recorded Date Recorded By Document 12/13/18 09:25 DL [id number] 12/13/18 09:35 DL 12/13/18 09:25 Wound Center Nurse 1 [Ulcer Assessment] #3 Mid Abdominal Fold -Current Size (cm) - Length 0.7 -Current Size (cm) - Width 2.2 -Current Size (cm) - Depth 0.1 -Total Square Cm 1.54 -Photo Taken No -Exudate Amt Small -Exudate Type Serosanguineous -Wound Margin Distinct, Outline Attached -Granulation Amt Large (67-100%) -Granulation Quality Red -Necrosis Amt None Present (0 %) -Structure Exposed N/A -Texture (Lyly-wound Skin Appearance) Scarring -Moisture (Lyly-wound Skin Appearance No Abnormality ) -Color (Lyly-wound Skin Appearance) No Abnormality -Temperature (Lyly-wound Skin No Abnormality Appearance) (Pt Warm) -Tenderness on Palpation (Lyly-wound No Skin Appearance) -Ulcer Cleansing Wound Cleanser -Foul Odor after Cleansing No -Anesthetic Used 4% Lidocaine Solution #2 right pannus post-op -Current Size (cm) - Length 11 -Current Size (cm) - Width 15 -Current Size (cm) - Depth 1 -Total Square Cm 165 -Photo Taken No -Exudate Amt Medium -Exudate Type Serosanguineous -Wound Margin Distinct, Outline Attached -Granulation Amt Medium (34-66%) -Granulation Quality Red -Necrosis Amt Medium (34-66%) -Necrotic Tissue Type Eschar -Structure Exposed N/A -Texture (Lyly-wound Skin Appearance) Scarring -Moisture (Lyly-wound Skin Appearance No Abnormality ) -Color (Lyly-wound Skin Appearance) Rubor -Temperature (Lyly-wound Skin No Abnormality Appearance) (Pt Warm) -Tenderness on Palpation (Lyly-wound No Skin Appearance) -Ulcer Cleansing Wound Cleanser -Foul Odor after Cleansing No -Anesthetic Used 4% Lidocaine Solution WC - Nurse 2 - General Ulcer CM Notes Start: 12/06/18 09:25 Freq: Status: Active Protocol: Activity Type Activity Date Activity User E-Sign Co-Sign Detail Recorded Client Recorded Date Recorded By Document 12/13/18 09:47 [email or web address] 12/13/18 09:51 12/13/18 09:47 Wound Center Nurse 2 [Procedure/Treatment] #3 Mid Abdominal Fold -Time 09:47 -Correct Patient Yes -Correct Side, Site, Position Yes -Correct Procedure Yes -Procedure Performed Yes -Type of Procedure Debridement -Clinical Debridement Subcutaneous -Post Debridement Size (cm) - Length 0.6 -Post Debridement Size (cm) - Width 2.5 -Post Debridement Size (cm) - Depth 0.2 -Total Square Cm 1.50 -Wound/Ulcer Outcome Not Healed -Ulcer Cleansing Rinsed/ Irrigated with Saline -Foul Odor after Cleansing No -Bioengineered Tissue No -Bleeding Controlled with Pressure -Offloading No -Treatment Response Procedure Tolerated Well #2 right pannus post-op -Time 09:48 -Correct Patient Yes -Correct Side, Site, Position Yes -Correct Procedure Yes -Procedure Performed Yes -Type of Procedure Debridement -Clinical Debridement Subcutaneous -Post Debridement Size (cm) - Length 10.0 -Post Debridement Size (cm) - Width 14.4 -Post Debridement Size (cm) - Depth 1.1 -Total Square Cm 144.00 -Wound/Ulcer Outcome Not Healed -Ulcer Cleansing Rinsed/ Irrigated with Saline -Foul Odor after Cleansing No -Bioengineered Tissue No -Bleeding Controlled with Pressure -Offloading No -Treatment Response Procedure Tolerated Well [See Physician Procedure note for Specifics] Pain Scale: 0-10 Numeric [Pain] -Is Patient Pain Free? Yes Musculoskeletal: No Tenderness to Palpation of Joints or Extremities Neurological: Neuro grossly intact Psych/Mental Status: Normal Affect, Appropriate Debridement Note Post-Debridement Measurements/Treatment WC - Nurse 2 - General Ulcer CM Notes Start: 12/06/18 09:25 Freq: Status: Active Protocol: Activity Type Activity Date Activity User E-Sign Co-Sign Detail Recorded Client Recorded Date Recorded By Document 12/06/18 09:51 [id number] 12/06/18 09:57 Document 12/13/18 09:47 [id number] 12/13/18 09:51 12/06/18 12/13/18 09:51 09:47 Wound Center Nurse 2 #3 Mid Abdominal Fold -Time 09:52 09:47 -Correct Patient Yes Yes -Correct Side, Site, Position Yes Yes -Correct Procedure Yes Yes -Procedure Performed Yes Yes -Type of Procedure Debridement Debridement -Clinical Debridement Subcutaneous Subcutaneous -Post Debridement Size (cm) - Length 0.7 0.6 -Post Debridement Size (cm) - Width 2.7 2.5 -Post Debridement Size (cm) - Depth 0.2 0.2 -Total Square Cm 1.89 1.50 -Wound/Ulcer Outcome Not Healed Not Healed -Ulcer Cleansing Rinsed/ Rinsed/ Irrigated with Irrigated with Saline Saline -Foul Odor after Cleansing No No -Bioengineered Tissue No No -Bleeding Controlled with Pressure Pressure -Offloading No No -Treatment Response Procedure Procedure Tolerated Well Tolerated Well #2 right pannus post-op -Time 09:53 09:48 -Correct Patient Yes Yes -Correct Side, Site, Position Yes Yes -Correct Procedure Yes Yes -Procedure Performed Yes Yes -Type of Procedure Debridement Debridement -Clinical Debridement Subcutaneous Subcutaneous -Post Debridement Size (cm) - Length 11.5 10.0 -Post Debridement Size (cm) - Width 16.0 14.4 -Post Debridement Size (cm) - Depth 1.2 1.1 -Total Square Cm 184.00 144.00 -Wound/Ulcer Outcome Not Healed Not Healed -Ulcer Cleansing Rinsed/ Rinsed/ Irrigated with Irrigated with Saline Saline -Foul Odor after Cleansing No No -Bioengineered Tissue No No -Bleeding Controlled with Pressure Pressure -Offloading No No -Treatment Response Procedure Procedure Tolerated Well Tolerated Well Pain Scale: 0-10 Numeric Is Patient Pain Free? Yes Yes Wound debrided: Right abdomen Laterality: Right Type of Debridement: Excisional debridement Anesthesia Used: 4% Lidocaine Solution Depth: Down to and including healthy tissue, in the subcutaneous layer Percentage of wound debrided: 100 Instrument Used: 7mm curette Tissue Removed: Subcutaneous tissue and slough Severity: Fat Layer Exposed Amount of bleeding with debridement: Mild Bleeding Controlled with: Compression and gauze Patient tolerated procedure well - Additional Wound Wound debrided: Midabdominal Laterality: Not Applicable Type of Debridement: Excisional debridement Anesthesia Used: 4% Lidocaine Solution Depth: Down to and including healthy tissue, in the subcutaneous layer Percentage of wound debrided: 100 Instrument Used: 7mm curette Tissue Removed: Subcutaneous tissue and slough Severity: Fat Layer Exposed Amount of bleeding with debridement: Mild Bleeding Controlled with: Pressure Patient tolerated procedure: Patient tolerated procedure well Assessment/Plan Active Problems (Last Reviewed 11/19/18 @ 10:25 by Angela Song) Erythema intertrigo (Chronic) abdominal wall skin crease intertrigo Abdominal panniculus, symptomatic (Chronic) Skin ulcer of abdominal wall with fat layer exposed (Chronic) Obesity, Class III, BMI 40-49.9 (morbid obesity) (Chronic) Assessment: 1. Nonhealing ulcers right lateral abdominal wall and lower anterior abdominal wall in massive abdominal panniculus. 2. Massive abdominal panniculus with panniculitis. 3. Borderline diabetes. 4. Abdominal wall skin crease intertrigo. 5. Morbid obesity. 6. Incisional hernia. 7. s/p surgical preparation right lateral abdominal wall massive panniculus with excisional debridement skin and subcutaneous tissue for necrotizing soft tissue infection and panniculectomy (858 cm2). Plan: Continue Dakin's dressing changes. The wound is looking much improved. The next surgery will take place in 6 months because of her blood pressure issues after the last surgery necessitating ICU admission and pressors and PRBC. She understands that multiple procedures will be necessary. Also the central portion would be excised last because of the presence of the hernia. At that time would need assistance from General Surgery for repair of the hernia. Her operative culture showed Staphylococcus simulans, Corynebacterium striatum, and Corynebacterium amycolatum, and Anaerobic cocci. She has been on Levaquin. Cleocin will be added for 10 days. Her Prealbumin from 09/22/18 was 12.0. Encourage nutritional supplementation with protein to help the healing process. She has been drinking [employer] protein supplement. She is home from [place]. She is doing well. Her mother is doing her dressing changes and is doing a good job with them. She states she has lost over 100 lbs since her surgery and is feeling well. She states she is able to move easier. She is in good spirits today. Followup one week. Code Visit 111xxx-113xx: 28217 Josephine subq tissue 20 sq cm/< Add On Codes: 99256 Josephine subq tissue add-on - x 7
[2018-12-20 09:18] VITALS: BP 150/85; PULSE 106; RESP 20; TEMP 35.9; BMI 78.4
--- NOTE | 2018-12-20 13:30 | PCM.WC.PN ---
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 Status: Chronic Current Visit: Yes Code(s): L98.492 - Non-pressure chronic ulcer of skin of other sites with fat layer exposed (2) Abdominal panniculus, symptomatic Status: Chronic Current Visit: Yes Code(s): E65 - Localized adiposity (3) Panniculitis Status: Chronic Current Visit: Yes Code(s): M79.3 - Panniculitis, unspecified (4) Erythema intertrigo Status: Chronic Current Visit: Yes Code(s): L30.4 - Erythema intertrigo Comment: abdominal wall skin crease intertrigo (5) Obesity, Class III, BMI 40-49.9 (morbid obesity) Status: Chronic Current Visit: Yes Code(s): E66.01 - Morbid (severe) obesity due to excess calories (6) Other specified soft tissue disorders Status: Chronic Current Visit: Yes Code(s): M79.89 - Other specified soft tissue disorders (7) Incisional hernia Status: Chronic Current Visit: Yes Qualifiers: Obstruction and gangrene presence: without obstruction or gangrene Qualified Code(s): K43.2 - Incisional hernia without obstruction or gangrene; K43.91 - Incisional hernia, without obstruction or gangrene Code(s): K43.2 - Incisional hernia without obstruction or gangrene Type of Wound Date of Service: 12/20/18 Chief Complaint: Nonhealing ulcers right lateral abdominal wall and lower anterior abdominal wall. History of Wound: Surgery 09/21/18 - Surgical preparation right lateral abdominal wall massive panniculus with excisional debridement skin and subcutaneous tissue for necrotizing soft tissue infection and panniculectomy (858 cm2). Wound care - Dakin's dressing changes. We will apply for Theraskin. She would benefit from having assistance with helping this right abdominal ulcer heal. Initially she had the VAC and had issues with it at the [facility]. Today denies any fever, chills or nausea. She states her appetite is good and she is supplementing with protein shakes. Operative culture - Staphylococcus simulans, Corynebacteriurm striatum, Corynebacterium amycolatum, and Anaerobic cocci. She was treated initially with Vancomycin and then was placed on Levaquin for the ECF. With the recent Anaerobic cocci, will add Cleocin. Prealbumin from 09/22/18 was 12.0. Encouraged nutritional supplementation with protein to help the healing process. Today she denies fever. Her appetite is ok. She is now home from the [facility]. Progress of Wound: Improved. - Physical Exam Vital Signs Temp Pulse Resp BP 96.6 F L 106 H 20 H 150/85 H 12/20/18 09:18 12/20/18 09:18 12/20/18 09:18 12/20/18 09:18 General: Alert, Oriented x3, Cooperative HEENT: Atraumatic Oral: Moist Mucosa Lungs: Normal air movement Cardiovascular: Regular rate Abdomen: Soft, Obese Extremities: Capillary Refill Less than 3 Seconds, Diminished Peripheral Pulses, Edema Skin: Ulcer/ Wound - Right abdominal ulcer and mid abdominal ulcer in skin fold Wound Measurements and Assessment WC - Nurse 1 - General Ulcer Measurement Start: 12/06/18 09:25 Freq: Status: Active Protocol: Activity Type Activity Date Activity User E-Sign Co-Sign Detail Recorded Client Recorded Date Recorded By Document 12/20/18 09:18 [facility] [id number] 12/20/18 09:23 [facility] 12/20/18 09:18 Wound Center Nurse 1 [Ulcer Assessment] #3 Mid Abdominal Fold -Combined with other wound No -Current Size (cm) - Length 0.5 -Current Size (cm) - Width 3.3 -Current Size (cm) - Depth 0.2 -Total Square Cm 1.65 -Photo Taken No -Epithelialization Small 1-33% -Tunneling No -Undermining/Tunneling No -Circular Undermining No -Exudate Amt Small -Exudate Type Serosanguineous -Wound Margin Distinct, Outline Attached -Granulation Amt Large (67-100%) -Granulation Quality Red -Slough/Fibrin No -Necrosis Amt None Present (0 %) -Texture (Lyly-wound Skin Appearance) Scarring -Moisture (Lyly-wound Skin Appearance Assessed ) -Color (Lyly-wound Skin Appearance) Assessed -Temperature (Lyly-wound Skin No Abnormality Appearance) (Pt Warm) -Tenderness on Palpation (Lyly-wound No Skin Appearance) -Ulcer Cleansing Wound Cleanser -Foul Odor after Cleansing No -Anesthetic Used 4% Lidocaine Solution #2 right pannus post-op -Combined with other wound No -Current Size (cm) - Length 10 -Current Size (cm) - Width 15 -Current Size (cm) - Depth 0.2 -Total Square Cm 150 -Photo Taken No -Epithelialization Small 1-33% -Tunneling No -Undermining/Tunneling No -Circular Undermining No -Exudate Amt Small -Exudate Type Serosanguineous -Wound Margin Distinct, Outline Attached -Granulation Amt Medium (34-66%) -Granulation Quality Red -Slough/Fibrin Yes -Necrosis Amt Medium (34-66%) -Necrotic Tissue Type Adherent Slough -Texture (Lyly-wound Skin Appearance) Scarring -Moisture (Lyly-wound Skin Appearance Assessed ) -Color (Lyly-wound Skin Appearance) Assessed -Temperature (Lyly-wound Skin No Abnormality Appearance) (Pt Warm) -Tenderness on Palpation (Lyly-wound No Skin Appearance) -Ulcer Cleansing Wound Cleanser -Anesthetic Used 4% Lidocaine Solution WC - Nurse 2 - General Ulcer CM Notes Start: 12/06/18 09:25 Freq: Status: Active Protocol: Activity Type Activity Date Activity User E-Sign Co-Sign Detail Recorded Client Recorded Date Recorded By Document 12/20/18 09:36 [id number] 12/20/18 09:37 [facility] 12/20/18 09:36 Wound Center Nurse 2 [Procedure/Treatment] #3 Mid Abdominal Fold -Time 09:36 -Correct Patient Yes -Correct Side, Site, Position Yes -Correct Procedure Yes -Procedure Performed Yes -Type of Procedure Debridement -Clinical Debridement Subcutaneous -Post Debridement Size (cm) - Length 0.5 -Post Debridement Size (cm) - Width 3.2 -Post Debridement Size (cm) - Depth 0.2 -Total Square Cm 1.60 -Wound/Ulcer Outcome Not Healed -Ulcer Cleansing Rinsed/ Irrigated with Saline -Foul Odor after Cleansing No -Bioengineered Tissue No -Bleeding Controlled with Pressure -Offloading No -Treatment Response Procedure Tolerated Well #2 right pannus post-op -Time 09:37 -Correct Patient Yes -Correct Side, Site, Position Yes -Correct Procedure Yes -Procedure Performed Yes -Type of Procedure Debridement -Clinical Debridement Subcutaneous -Post Debridement Size (cm) - Length 10.1 -Post Debridement Size (cm) - Width 15 -Post Debridement Size (cm) - Depth 0.2 -Total Square Cm 151.5 -Wound/Ulcer Outcome Not Healed -Ulcer Cleansing Rinsed/ Irrigated with Saline -Foul Odor after Cleansing No -Bioengineered Tissue No -Bleeding Controlled with Pressure -Offloading No -Treatment Response Procedure Tolerated Well [See Physician Procedure note for Specifics] Pain Scale: 0-10 Numeric [Pain] -Is Patient Pain Free? Yes Musculoskeletal: No Tenderness to Palpation of Joints or Extremities Neurological: Neuro grossly intact Psych/Mental Status: Normal Affect, Appropriate Debridement Note Post-Debridement Measurements/Treatment WC - Nurse 2 - General Ulcer CM Notes Start: 12/06/18 09:25 Freq: Status: Active Protocol: Activity Type Activity Date Activity User E-Sign Co-Sign Detail Recorded Client Recorded Date Recorded By Document 12/06/18 09:51 [id number] 12/06/18 09:57 Document 12/13/18 09:47 [id number] 12/13/18 09:51 Document 12/20/18 09:36 [id number] 12/20/18 09:37 12/06/18 12/13/18 12/20/18 09:51 09:47 09:36 Wound Center Nurse 2 #3 Mid Abdominal Fold -Time 09:52 09:47 09:36 -Correct Patient Yes Yes Yes -Correct Side, Site, Position Yes Yes Yes -Correct Procedure Yes Yes Yes -Procedure Performed Yes Yes Yes -Type of Procedure Debridement Debridement Debridement -Clinical Debridement Subcutaneous Subcutaneous Subcutaneous -Post Debridement Size (cm) - Length 0.7 0.6 0.5 -Post Debridement Size (cm) - Width 2.7 2.5 3.2 -Post Debridement Size (cm) - Depth 0.2 0.2 0.2 -Total Square Cm 1.89 1.50 1.60 -Wound/Ulcer Outcome Not Healed Not Healed Not Healed -Ulcer Cleansing Rinsed/ Rinsed/ Rinsed/ Irrigated with Irrigated with Irrigated with Saline Saline Saline -Foul Odor after Cleansing No No No -Bioengineered Tissue No No No -Bleeding Controlled with Pressure Pressure Pressure -Offloading No No No -Treatment Response Procedure Procedure Procedure Tolerated Well Tolerated Well Tolerated Well #2 right pannus post-op -Time 09:53 09:48 09:37 -Correct Patient Yes Yes Yes -Correct Side, Site, Position Yes Yes Yes -Correct Procedure Yes Yes Yes -Procedure Performed Yes Yes Yes -Type of Procedure Debridement Debridement Debridement -Clinical Debridement Subcutaneous Subcutaneous Subcutaneous -Post Debridement Size (cm) - Length 11.5 10.0 10.1 -Post Debridement Size (cm) - Width 16.0 14.4 15 -Post Debridement Size (cm) - Depth 1.2 1.1 0.2 -Total Square Cm 184.00 144.00 151.5 -Wound/Ulcer Outcome Not Healed Not Healed Not Healed -Ulcer Cleansing Rinsed/ Rinsed/ Rinsed/ Irrigated with Irrigated with Irrigated with Saline Saline Saline -Foul Odor after Cleansing No No No -Bioengineered Tissue No No No -Bleeding Controlled with Pressure Pressure Pressure -Offloading No No No -Treatment Response Procedure Procedure Procedure Tolerated Well Tolerated Well Tolerated Well Pain Scale: 0-10 Numeric Is Patient Pain Free? Yes Yes Yes Wound debrided: Right abdomen Laterality: Right Type of Debridement: Excisional debridement Anesthesia Used: 5% Lidocaine Gel Depth: Down to and including healthy tissue, in the subcutaneous layer Percentage of wound debrided: 100 Instrument Used: 7mm curette Tissue Removed: Subcutaneous tissue and slough Amount of bleeding with debridement: Mild Bleeding Controlled with: Pressure, Compression and gauze Patient tolerated procedure well - Additional Wound Wound debrided: mid abdominal ulcer Type of Debridement: Excisional debridement Anesthesia Used: 4% Lidocaine Solution Depth: Down to and including healthy tissue, in the subcutaneous layer Percentage of wound debrided: 100 Instrument Used: 7mm curette Tissue Removed: Subcutaneous tissue and slough Severity: Fat Layer Exposed Amount of bleeding with debridement: Mild Bleeding Controlled with: Pressure, Compression and gauze Patient tolerated procedure: Patient tolerated procedure well Assessment/Plan Active Problems (Last Reviewed 11/19/18 @ 10:25 by Angela Song) Other specified soft tissue disorders (Chronic) Panniculitis (Chronic) Erythema intertrigo (Chronic) abdominal wall skin crease intertrigo Abdominal panniculus, symptomatic (Chronic) Skin ulcer of abdominal wall with fat layer exposed (Chronic) Incisional hernia (Chronic) Obesity, Class III, BMI 40-49.9 (morbid obesity) (Chronic) Assessment: 1. Nonhealing ulcers right lateral abdominal wall and lower anterior abdominal wall in massive abdominal panniculus. 2. Massive abdominal panniculus with panniculitis. 3. Borderline diabetes. 4. Abdominal wall skin crease intertrigo. 5. Morbid obesity. 6. Incisional hernia. 7. s/p surgical preparation right lateral abdominal wall massive panniculus with excisional debridement skin and subcutaneous tissue for necrotizing soft tissue infection and panniculectomy (858 cm2). Plan: Continue Jeremiah's dressing changes. The wound is looking much improved. The next surgery will take place in 6 months because of her blood pressure issues after the last surgery necessitating ICU admission and pressors and PRBC. She understands that multiple procedures will be necessary. Also the central portion would be excised last because of the presence of the hernia. At that time would need assistance from General Surgery for repair of the hernia. Her wound bed is looking well. She would benefit from a skin substitute to help expidite her wound healing. With the size of her wound, Theraskin would be the best option in helping her heal quicker. We will apply for approval of Theraskin. Her operative culture showed Staphylococcus simulans, Corynebacterium striatum, and Corynebacterium amycolatum, and Anaerobic cocci. She has been on Levaquin. Cleocin will be added for 10 days. Her Prealbumin from 09/22/18 was 12.0. Encourage nutritional supplementation with protein to help the healing process. She has been drinking JuEyeVerifyen protein supplement. She is home from [employer]. She is doing well. Her mother is doing her dressing changes and is doing a good job with them. She states she has lost over 100 lbs since her surgery and is feeling well. She states she is able to move easier. She is now home. Followup one week. Code Visit [id number]: [id number] Josephine subq tissue 20 sq cm/< Add On Codes: [id number] Josephine subq tissue add-on - x15
--- NOTE | 2018-12-21 10:34 | PN.PCM_ITS ---
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 Status: Chronic Current Visit: Yes Code(s): L98.492 - Non-pressure chronic ulcer of skin of other sites with fat layer exposed (2) Abdominal panniculus, symptomatic Status: Chronic Current Visit: Yes Code(s): E65 - Localized adiposity (3) Panniculitis Status: Chronic Current Visit: Yes Code(s): M79.3 - Panniculitis, unspecified (4) Erythema intertrigo Status: Chronic Current Visit: Yes Code(s): L30.4 - Erythema intertrigo Comment: abdominal wall skin crease intertrigo (5) Obesity, Class III, BMI 40-49.9 (morbid obesity) Status: Chronic Current Visit: Yes Code(s): E66.01 - Morbid (severe) obesity due to excess calories (6) Other specified soft tissue disorders Status: Chronic Current Visit: Yes Code(s): M79.89 - Other specified soft tissue disorders (7) Incisional hernia Status: Chronic Current Visit: Yes Qualifiers: Obstruction and gangrene presence: without obstruction or gangrene Qualified Code(s): K43.2 - Incisional hernia without obstruction or gangrene; K43.91 - Incisional hernia, without obstruction or gangrene Code(s): K43.2 - Incisional hernia without obstruction or gangrene Type of Wound Date of Service: 12/20/18 Chief Complaint: Nonhealing ulcers right lateral abdominal wall and lower anterior abdominal wall. History of Wound: Surgery 09/21/18 - Surgical preparation right lateral abdominal wall massive panniculus with excisional debridement skin and subcutaneous tissue for necrotizing soft tissue infection and panniculectomy (858 cm2). Wound care - Dakin's dressing changes. We will apply for Theraskin. She would benefit from having assistance with helping this right abdominal ulcer heal. Initially she had the VAC and had issues with it at the [facility]. Today denies any fever, chills or nausea. She states her appetite is good and she is supplementing with protein shakes. Operative culture - Staphylococcus simulans, Corynebacteriurm striatum, Corynebacterium amycolatum, and Anaerobic cocci. She was treated initially with Vancomycin and then was placed on Levaquin for the ECF. With the recent Anaerobic cocci, will add Cleocin. Prealbumin from 09/22/18 was 12.0. Encouraged nutritional supplementation with protein to help the healing process. Today she denies fever. Her appetite is ok. She is now home from the [facility]. Progress of Wound: Improved. - Physical Exam Vital Signs Temp Pulse Resp BP 96.6 F L 106 H 20 H 150/85 H 12/20/18 09:18 12/20/18 09:18 12/20/18 09:18 12/20/18 09:18 General: Alert, Oriented x3, Cooperative HEENT: Atraumatic Oral: Moist Mucosa Lungs: Normal air movement Cardiovascular: Regular rate Abdomen: Soft, Obese Extremities: Capillary Refill Less than 3 Seconds, Diminished Peripheral Pulses, Edema Skin: Ulcer/ Wound - Right abdominal ulcer and mid abdominal ulcer in skin fold Wound Measurements and Assessment WC - Nurse 1 - General Ulcer Measurement Start: 12/06/18 09:25 Freq: Status: Active Protocol: Activity Type Activity Date Activity User E-Sign Co-Sign Detail Recorded Client Recorded Date Recorded By Document 12/20/18 09:18 [facility] [id number] 12/20/18 09:23 [facility] 12/20/18 09:18 Wound Center Nurse 1 [Ulcer Assessment] #3 Mid Abdominal Fold -Combined with other wound No -Current Size (cm) - Length 0.5 -Current Size (cm) - Width 3.3 -Current Size (cm) - Depth 0.2 -Total Square Cm 1.65 -Photo Taken No -Epithelialization Small 1-33% -Tunneling No -Undermining/Tunneling No -Circular Undermining No -Exudate Amt Small -Exudate Type Serosanguineous -Wound Margin Distinct, Outline Attached -Granulation Amt Large (67-100%) -Granulation Quality Red -Slough/Fibrin No -Necrosis Amt None Present (0 %) -Texture (Lyly-wound Skin Appearance) Scarring -Moisture (Lyly-wound Skin Appearance Assessed ) -Color (Lyly-wound Skin Appearance) Assessed -Temperature (Lyly-wound Skin No Abnormality Appearance) (Pt Warm) -Tenderness on Palpation (Lyly-wound No Skin Appearance) -Ulcer Cleansing Wound Cleanser -Foul Odor after Cleansing No -Anesthetic Used 4% Lidocaine Solution #2 right pannus post-op -Combined with other wound No -Current Size (cm) - Length 10 -Current Size (cm) - Width 15 -Current Size (cm) - Depth 0.2 -Total Square Cm 150 -Photo Taken No -Epithelialization Small 1-33% -Tunneling No -Undermining/Tunneling No -Circular Undermining No -Exudate Amt Small -Exudate Type Serosanguineous -Wound Margin Distinct, Outline Attached -Granulation Amt Medium (34-66%) -Granulation Quality Red -Slough/Fibrin Yes -Necrosis Amt Medium (34-66%) -Necrotic Tissue Type Adherent Slough -Texture (Lyly-wound Skin Appearance) Scarring -Moisture (Lyly-wound Skin Appearance Assessed ) -Color (Lyly-wound Skin Appearance) Assessed -Temperature (Lyly-wound Skin No Abnormality Appearance) (Pt Warm) -Tenderness on Palpation (Lyly-wound No Skin Appearance) -Ulcer Cleansing Wound Cleanser -Anesthetic Used 4% Lidocaine Solution WC - Nurse 2 - General Ulcer CM Notes Start: 12/06/18 09:25 Freq: Status: Active Protocol: Activity Type Activity Date Activity User E-Sign Co-Sign Detail Recorded Client Recorded Date Recorded By Document 12/20/18 09:36 [id number] 12/20/18 09:37 [facility] 12/20/18 09:36 Wound Center Nurse 2 [Procedure/Treatment] #3 Mid Abdominal Fold -Time 09:36 -Correct Patient Yes -Correct Side, Site, Position Yes -Correct Procedure Yes -Procedure Performed Yes -Type of Procedure Debridement -Clinical Debridement Subcutaneous -Post Debridement Size (cm) - Length 0.5 -Post Debridement Size (cm) - Width 3.2 -Post Debridement Size (cm) - Depth 0.2 -Total Square Cm 1.60 -Wound/Ulcer Outcome Not Healed -Ulcer Cleansing Rinsed/ Irrigated with Saline -Foul Odor after Cleansing No -Bioengineered Tissue No -Bleeding Controlled with Pressure -Offloading No -Treatment Response Procedure Tolerated Well #2 right pannus post-op -Time 09:37 -Correct Patient Yes -Correct Side, Site, Position Yes -Correct Procedure Yes -Procedure Performed Yes -Type of Procedure Debridement -Clinical Debridement Subcutaneous -Post Debridement Size (cm) - Length 10.1 -Post Debridement Size (cm) - Width 15 -Post Debridement Size (cm) - Depth 0.2 -Total Square Cm 151.5 -Wound/Ulcer Outcome Not Healed -Ulcer Cleansing Rinsed/ Irrigated with Saline -Foul Odor after Cleansing No -Bioengineered Tissue No -Bleeding Controlled with Pressure -Offloading No -Treatment Response Procedure Tolerated Well [See Physician Procedure note for Specifics] Pain Scale: 0-10 Numeric [Pain] -Is Patient Pain Free? Yes Musculoskeletal: No Tenderness to Palpation of Joints or Extremities Neurological: Neuro grossly intact Psych/Mental Status: Normal Affect, Appropriate Debridement Note Post-Debridement Measurements/Treatment WC - Nurse 2 - General Ulcer CM Notes Start: 12/06/18 09:25 Freq: Status: Active Protocol: Activity Type Activity Date Activity User E-Sign Co-Sign Detail Recorded Client Recorded Date Recorded By Document 12/06/18 09:51 [id number] 12/06/18 09:57 Document 12/13/18 09:47 [id number] 12/13/18 09:51 Document 12/20/18 09:36 [id number] 12/20/18 09:37 12/06/18 12/13/18 12/20/18 09:51 09:47 09:36 Wound Center Nurse 2 #3 Mid Abdominal Fold -Time 09:52 09:47 09:36 -Correct Patient Yes Yes Yes -Correct Side, Site, Position Yes Yes Yes -Correct Procedure Yes Yes Yes -Procedure Performed Yes Yes Yes -Type of Procedure Debridement Debridement Debridement -Clinical Debridement Subcutaneous Subcutaneous Subcutaneous -Post Debridement Size (cm) - Length 0.7 0.6 0.5 -Post Debridement Size (cm) - Width 2.7 2.5 3.2 -Post Debridement Size (cm) - Depth 0.2 0.2 0.2 -Total Square Cm 1.89 1.50 1.60 -Wound/Ulcer Outcome Not Healed Not Healed Not Healed -Ulcer Cleansing Rinsed/ Rinsed/ Rinsed/ Irrigated with Irrigated with Irrigated with Saline Saline Saline -Foul Odor after Cleansing No No No -Bioengineered Tissue No No No -Bleeding Controlled with Pressure Pressure Pressure -Offloading No No No -Treatment Response Procedure Procedure Procedure Tolerated Well Tolerated Well Tolerated Well #2 right pannus post-op -Time 09:53 09:48 09:37 -Correct Patient Yes Yes Yes -Correct Side, Site, Position Yes Yes Yes -Correct Procedure Yes Yes Yes -Procedure Performed Yes Yes Yes -Type of Procedure Debridement Debridement Debridement -Clinical Debridement Subcutaneous Subcutaneous Subcutaneous -Post Debridement Size (cm) - Length 11.5 10.0 10.1 -Post Debridement Size (cm) - Width 16.0 14.4 15 -Post Debridement Size (cm) - Depth 1.2 1.1 0.2 -Total Square Cm 184.00 144.00 151.5 -Wound/Ulcer Outcome Not Healed Not Healed Not Healed -Ulcer Cleansing Rinsed/ Rinsed/ Rinsed/ Irrigated with Irrigated with Irrigated with Saline Saline Saline -Foul Odor after Cleansing No No No -Bioengineered Tissue No No No -Bleeding Controlled with Pressure Pressure Pressure -Offloading No No No -Treatment Response Procedure Procedure Procedure Tolerated Well Tolerated Well Tolerated Well Pain Scale: 0-10 Numeric Is Patient Pain Free? Yes Yes Yes Wound debrided: Right abdomen Laterality: Right Type of Debridement: Excisional debridement Anesthesia Used: 5% Lidocaine Gel Depth: Down to and including healthy tissue, in the subcutaneous layer Percentage of wound debrided: 100 Instrument Used: 7mm curette Tissue Removed: Subcutaneous tissue and slough Amount of bleeding with debridement: Mild Bleeding Controlled with: Pressure, Compression and gauze Patient tolerated procedure well - Additional Wound Wound debrided: mid abdominal ulcer Type of Debridement: Excisional debridement Anesthesia Used: 4% Lidocaine Solution Depth: Down to and including healthy tissue, in the subcutaneous layer Percentage of wound debrided: 100 Instrument Used: 7mm curette Tissue Removed: Subcutaneous tissue and slough Severity: Fat Layer Exposed Amount of bleeding with debridement: Mild Bleeding Controlled with: Pressure, Compression and gauze Patient tolerated procedure: Patient tolerated procedure well Assessment/Plan Active Problems (Last Reviewed 11/19/18 @ 10:25 by Angela Song) Other specified soft tissue disorders (Chronic) Panniculitis (Chronic) Erythema intertrigo (Chronic) abdominal wall skin crease intertrigo Abdominal panniculus, symptomatic (Chronic) Skin ulcer of abdominal wall with fat layer exposed (Chronic) Incisional hernia (Chronic) Obesity, Class III, BMI 40-49.9 (morbid obesity) (Chronic) Assessment: 1. Nonhealing ulcers right lateral abdominal wall and lower anterior abdominal wall in massive abdominal panniculus. 2. Massive abdominal panniculus with panniculitis. 3. Borderline diabetes. 4. Abdominal wall skin crease intertrigo. 5. Morbid obesity. 6. Incisional hernia. 7. s/p surgical preparation right lateral abdominal wall massive panniculus with excisional debridement skin and subcutaneous tissue for necrotizing soft tissue infection and panniculectomy (858 cm2). Plan: Continue Jeremiah's dressing changes. The wound is looking much improved. The next surgery will take place in 6 months because of her blood pressure issues after the last surgery necessitating ICU admission and pressors and PRBC. She understands that multiple procedures will be necessary. Also the central portion would be excised last because of the presence of the hernia. At that time would need assistance from General Surgery for repair of the hernia. Her wound bed is looking well. She would benefit from a skin substitute to help expidite her wound healing. With the size of her wound, Theraskin would be the best option in helping her heal quicker. We will apply for approval of Theraskin. Her operative culture showed Staphylococcus simulans, Corynebacterium striatum, and Corynebacterium amycolatum, and Anaerobic cocci. She has been on Levaquin. Cleocin will be added for 10 days. Her Prealbumin from 09/22/18 was 12.0. Encourage nutritional supplementation with protein to help the healing process. She has been drinking JuHubkicken protein supplement. She is home from [place]. She is doing well. Her mother is doing her dressing changes and is doing a good job with them. She states she has lost over 100 lbs since her surgery and is feeling well. She states she is able to move easier. She is now home. Followup one week. Code Visit [id number]: 27190 Josephine subq tissue 20 sq cm/< Add On Codes: 22960 Josephine subq tissue add-on - x15
[2018-12-27 09:18] VITALS: BP 154/95; PULSE 108; RESP 18; TEMP 36; BMI 78.4
--- NOTE | 2018-12-27 10:11 | PCM.WC.PN ---
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 Status: Chronic Current Visit: Yes Code(s): L98.492 - Non-pressure chronic ulcer of skin of other sites with fat layer exposed (2) Abdominal panniculus, symptomatic Status: Chronic Current Visit: Yes Code(s): E65 - Localized adiposity (3) Panniculitis Status: Chronic Current Visit: Yes Code(s): M79.3 - Panniculitis, unspecified (4) Erythema intertrigo Status: Chronic Current Visit: Yes Code(s): L30.4 - Erythema intertrigo Comment: abdominal wall skin crease intertrigo (5) Obesity, Class III, BMI 40-49.9 (morbid obesity) Status: Chronic Current Visit: Yes Code(s): E66.01 - Morbid (severe) obesity due to excess calories (6) Other specified soft tissue disorders Status: Chronic Current Visit: Yes Code(s): M79.89 - Other specified soft tissue disorders (7) Incisional hernia Status: Chronic Current Visit: Yes Qualifiers: Obstruction and gangrene presence: without obstruction or gangrene Qualified Code(s): K43.2 - Incisional hernia without obstruction or gangrene; K43.91 - Incisional hernia, without obstruction or gangrene Code(s): K43.2 - Incisional hernia without obstruction or gangrene Type of Wound Date of Service: 12/27/18 Chief Complaint: Nonhealing ulcers right lateral abdominal wall and lower anterior abdominal wall. History of Wound: Surgery 09/21/18 - Surgical preparation right lateral abdominal wall massive panniculus with excisional debridement skin and subcutaneous tissue for necrotizing soft tissue infection and panniculectomy (858 cm2). Wound care - Jeremiah's dressing changes. Theraskin approved, will start next week. She would benefit from having assistance with helping this right abdominal ulcer heal. Initially she had the VAC and had issues with it at the [facility]. Today denies any fever, chills or nausea. She states her appetite is good and she is supplementing with protein shakes. Operative culture - Staphylococcus simulans, Corynebacteriurm striatum, Corynebacterium amycolatum, and Anaerobic cocci. She was treated initially with Vancomycin and then was placed on Levaquin for the ECF. With the recent Anaerobic cocci, will add Cleocin. Prealbumin from 09/22/18 was 12.0. Encouraged nutritional supplementation with protein to help the healing process. Today she denies fever. Her appetite is ok. She is now home from the [facility]. Progress of Wound: Improved. - Physical Exam Vital Signs Temp Pulse Resp BP 96.8 F L 108 H 18 154/95 H 12/27/18 09:18 12/27/18 09:18 12/27/18 09:18 12/27/18 09:18 General: Alert, Oriented x3, Cooperative HEENT: Atraumatic Oral: Moist Mucosa Lungs: Normal air movement Cardiovascular: Regular rate Abdomen: Obese Extremities: Capillary Refill Less than 3 Seconds, Edema Skin: Ulcer/ Wound - Right abdominal ulcer Wound Measurements and Assessment WC - Nurse 1 - General Ulcer Measurement Start: 12/06/18 09:25 Freq: Status: Active Protocol: Activity Type Activity Date Activity User E-Sign Co-Sign Detail Recorded Client Recorded Date Recorded By Document 12/27/18 09:18 [facility] [id number] 12/27/18 09:31 [facility] 12/27/18 09:18 Wound Center Nurse 1 [Ulcer Assessment] #3 Mid Abdominal Fold -Combined with other wound No -Current Size (cm) - Length 0.4 -Current Size (cm) - Width 2.7 -Current Size (cm) - Depth 0.3 -Total Square Cm 1.08 -Date of Last Picture (Recall this 12/27/18 field) -Photo Taken Yes -Epithelialization None Present -Tunneling No -Undermining/Tunneling No -Circular Undermining No -Exudate Amt Small -Exudate Type Serosanguineous -Wound Margin Distinct, Outline Attached -Granulation Amt Large (67-100%) -Granulation Quality Red -Slough/Fibrin Yes -Necrosis Amt Small (1-33%) -Necrotic Tissue Type Adherent Slough -Texture (Lyly-wound Skin Appearance) Scarring -Moisture (Lyly-wound Skin Appearance Assessed ) -Color (Lyly-wound Skin Appearance) Assessed -Temperature (Lyly-wound Skin No Abnormality Appearance) (Pt Warm) -Tenderness on Palpation (Lyly-wound No Skin Appearance) -Ulcer Cleansing Wound Cleanser -Foul Odor after Cleansing No -Anesthetic Used 4% Lidocaine Solution #2 right pannus post-op -Combined with other wound No -Current Size (cm) - Length 10.4 -Current Size (cm) - Width 12.6 -Current Size (cm) - Depth 0.1 -Total Square Cm 131.04 -Date of Last Picture (Recall this 12/27/18 field) -Photo Taken Yes -Epithelialization Small 1-33% -Tunneling No -Undermining/Tunneling No -Circular Undermining No -Exudate Amt Small -Exudate Type Serosanguineous -Wound Margin Flat & Intact -Granulation Amt Large (67-100%) -Granulation Quality Red -Slough/Fibrin Yes -Necrosis Amt Small (1-33%) -Necrotic Tissue Type Adherent Slough -Texture (Lyly-wound Skin Appearance) Assessed Scarring -Moisture (Lyly-wound Skin Appearance Assessed ) -Color (Lyly-wound Skin Appearance) Assessed -Temperature (Lyly-wound Skin No Abnormality Appearance) (Pt Warm) -Tenderness on Palpation (Lyly-wound No Skin Appearance) -Ulcer Cleansing Wound Cleanser -Foul Odor after Cleansing No -Anesthetic Used 4% Lidocaine Solution WC - Nurse 2 - General Ulcer CM Notes Start: 12/06/18 09:25 Freq: Status: Active Protocol: Activity Type Activity Date Activity User E-Sign Co-Sign Detail Recorded Client Recorded Date Recorded By Document 12/27/18 09:42 LOIS [id number] 12/27/18 09:53 LOIS 12/27/18 09:42 Wound Center Nurse 2 [Procedure/Treatment] #3 Mid Abdominal Fold -Time 09:42 -Correct Patient Yes -Correct Side, Site, Position Yes -Correct Procedure Yes -Procedure Performed Yes -Type of Procedure Debridement -Clinical Debridement Subcutaneous -Post Debridement Size (cm) - Length 0.5 -Post Debridement Size (cm) - Width 3 -Post Debridement Size (cm) - Depth 0.1 -Total Square Cm 1.5 -Wound/Ulcer Outcome Not Healed -Ulcer Cleansing Rinsed/ Irrigated with Saline -Foul Odor after Cleansing No -Bioengineered Tissue No -Bleeding Controlled with Pressure -Offloading No -Treatment Response Procedure Tolerated Well #2 right pannus post-op -Time 09:44 -Correct Patient Yes -Correct Side, Site, Position Yes -Correct Procedure Yes -Procedure Performed Yes -Type of Procedure Debridement -Clinical Debridement Subcutaneous -Post Debridement Size (cm) - Length 9.5 -Post Debridement Size (cm) - Width 14.0 -Post Debridement Size (cm) - Depth 0.2 -Total Square Cm 133.00 -Wound/Ulcer Outcome Not Healed -Ulcer Cleansing Rinsed/ Irrigated with Saline -Foul Odor after Cleansing No -Bioengineered Tissue No -Bleeding Controlled with Pressure -Offloading No -Treatment Response Procedure Tolerated Well [See Physician Procedure note for Specifics] Pain Scale: 0-10 Numeric [Pain] -Is Patient Pain Free? Yes Musculoskeletal: No Tenderness to Palpation of Joints or Extremities Neurological: Neuro grossly intact Psych/Mental Status: Normal Affect, Appropriate Debridement Note Post-Debridement Measurements/Treatment WC - Nurse 2 - General Ulcer CM Notes Start: 12/06/18 09:25 Freq: Status: Active Protocol: Activity Type Activity Date Activity User E-Sign Co-Sign Detail Recorded Client Recorded Date Recorded By Document 12/06/18 09:51 [id number] 12/06/18 09:57 Document 12/13/18 09:47 [id number] 12/13/18 09:51 Document 12/20/18 09:36 [id number] 12/20/18 09:37 Document 12/27/18 09:42 [id number] 12/27/18 09:53 12/06/18 12/13/18 12/20/18 09:51 09:47 09:36 Wound Center Nurse 2 #3 Mid Abdominal Fold -Time 09:52 09:47 09:36 -Correct Patient Yes Yes Yes -Correct Side, Site, Position Yes Yes Yes -Correct Procedure Yes Yes Yes -Procedure Performed Yes Yes Yes -Type of Procedure Debridement Debridement Debridement -Clinical Debridement Subcutaneous Subcutaneous Subcutaneous -Post Debridement Size (cm) - Length 0.7 0.6 0.5 -Post Debridement Size (cm) - Width 2.7 2.5 3.2 -Post Debridement Size (cm) - Depth 0.2 0.2 0.2 -Total Square Cm 1.89 1.50 1.60 -Wound/Ulcer Outcome Not Healed Not Healed Not Healed -Ulcer Cleansing Rinsed/ Rinsed/ Rinsed/ Irrigated with Irrigated with Irrigated with Saline Saline Saline -Foul Odor after Cleansing No No No -Bioengineered Tissue No No No -Bleeding Controlled with Pressure Pressure Pressure -Offloading No No No -Treatment Response Procedure Procedure Procedure Tolerated Well Tolerated Well Tolerated Well #2 right pannus post-op -Time 09:53 09:48 09:37 -Correct Patient Yes Yes Yes -Correct Side, Site, Position Yes Yes Yes -Correct Procedure Yes Yes Yes -Procedure Performed Yes Yes Yes -Type of Procedure Debridement Debridement Debridement -Clinical Debridement Subcutaneous Subcutaneous Subcutaneous -Post Debridement Size (cm) - Length 11.5 10.0 10.1 -Post Debridement Size (cm) - Width 16.0 14.4 15 -Post Debridement Size (cm) - Depth 1.2 1.1 0.2 -Total Square Cm 184.00 144.00 151.5 -Wound/Ulcer Outcome Not Healed Not Healed Not Healed -Ulcer Cleansing Rinsed/ Rinsed/ Rinsed/ Irrigated with Irrigated with Irrigated with Saline Saline Saline -Foul Odor after Cleansing No No No -Bioengineered Tissue No No No -Bleeding Controlled with Pressure Pressure Pressure -Offloading No No No -Treatment Response Procedure Procedure Procedure Tolerated Well Tolerated Well Tolerated Well Pain Scale: 0-10 Numeric Is Patient Pain Free? Yes Yes Yes 12/27/18 09:42 Wound Center Nurse 2 #3 Mid Abdominal Fold -Time 09:42 -Correct Patient Yes -Correct Side, Site, Position Yes -Correct Procedure Yes -Procedure Performed Yes -Type of Procedure Debridement -Clinical Debridement Subcutaneous -Post Debridement Size (cm) - Length 0.5 -Post Debridement Size (cm) - Width 3 -Post Debridement Size (cm) - Depth 0.1 -Total Square Cm 1.5 -Wound/Ulcer Outcome Not Healed -Ulcer Cleansing Rinsed/ Irrigated with Saline -Foul Odor after Cleansing No -Bioengineered Tissue No -Bleeding Controlled with Pressure -Offloading No -Treatment Response Procedure Tolerated Well #2 right pannus post-op -Time 09:44 -Correct Patient Yes -Correct Side, Site, Position Yes -Correct Procedure Yes -Procedure Performed Yes -Type of Procedure Debridement -Clinical Debridement Subcutaneous -Post Debridement Size (cm) - Length 9.5 -Post Debridement Size (cm) - Width 14.0 -Post Debridement Size (cm) - Depth 0.2 -Total Square Cm 133.00 -Wound/Ulcer Outcome Not Healed -Ulcer Cleansing Rinsed/ Irrigated with Saline -Foul Odor after Cleansing No -Bioengineered Tissue No -Bleeding Controlled with Pressure -Offloading No -Treatment Response Procedure Tolerated Well Pain Scale: 0-10 Numeric Is Patient Pain Free? Yes Wound debrided: Right abdomen Laterality: Right Type of Debridement: Excisional debridement Anesthesia Used: 4% Lidocaine Solution Depth: Down to and including healthy tissue, in the subcutaneous layer Percentage of wound debrided: 100 Instrument Used: 7mm curette Tissue Removed: Subcutaneous tissue and slough Severity: Fat Layer Exposed Amount of bleeding with debridement: Mild Bleeding Controlled with: Pressure, Compression and gauze Patient tolerated procedure well - Additional Wound Wound debrided: Mid abdominal ulcer Type of Debridement: Excisional debridement Anesthesia Used: 4% Lidocaine Solution Depth: Down to and including healthy tissue, in the subcutaneous layer Percentage of wound debrided: 100 Instrument Used: 7mm curette Tissue Removed: Subcutaneous tissue and slough Amount of bleeding with debridement: Mild Bleeding Controlled with: Pressure Patient tolerated procedure: Patient tolerated procedure well Assessment/Plan Active Problems (Last Reviewed 11/19/18 @ 10:25 by Angela Song) Other specified soft tissue disorders (Chronic) Panniculitis (Chronic) Erythema intertrigo (Chronic) abdominal wall skin crease intertrigo Abdominal panniculus, symptomatic (Chronic) Skin ulcer of abdominal wall with fat layer exposed (Chronic) Incisional hernia (Chronic) Obesity, Class III, BMI 40-49.9 (morbid obesity) (Chronic) Assessment: 1. Nonhealing ulcers right lateral abdominal wall and lower anterior abdominal wall in massive abdominal panniculus. 2. Massive abdominal panniculus with panniculitis. 3. Borderline diabetes. 4. Abdominal wall skin crease intertrigo. 5. Morbid obesity. 6. Incisional hernia. 7. s/p surgical preparation right lateral abdominal wall massive panniculus with excisional debridement skin and subcutaneous tissue for necrotizing soft tissue infection and panniculectomy (858 cm2). Plan: Continue Jeremiah's dressing changes. The wound is looking much improved. The next surgery will take place in 6 months because of her blood pressure issues after the last surgery necessitating ICU admission and pressors and PRBC. She understands that multiple procedures will be necessary. Also the central portion would be excised last because of the presence of the hernia. At that time would need assistance from General Surgery for repair of the hernia. Her wound bed is looking well. She would benefit from a skin substitute to help expidite her wound healing. With the size of her wound, Theraskin would be the best option in helping her heal quicker. She was approved for Theraskin, will start next week. Her operative culture showed Staphylococcus simulans, Corynebacterium striatum, and Corynebacterium amycolatum, and Anaerobic cocci. She has been on Levaquin. Cleocin will be added for 10 days. Her Prealbumin from 09/22/18 was 12.0. Encourage nutritional supplementation with protein to help the healing process. She has been drinking Jueven protein supplement. She is home from [place]. She is doing well. Her mother is doing her dressing changes and is doing a good job with them. She states she has lost over 100 lbs since her surgery and is feeling well. She states she is able to move easier. She is now home. Followup one week. Code Visit [id number]: [id number] Josephine subq tissue 20 sq cm/< Add On Codes: [id number] Josephine subq tissue add-on - x6
== END 2019-01-02 23:59 ==
LOC: WC 09:30
PROVIDERS: Family Provider Student in an Organized Health Care Education/Training Program; PCP Student in an Organized Health Care Education/Training Program; Visit Provider Nurse Practitioner Family
DX: L98.492 Non-pressure chronic ulcer of skin of other sites with fat layer exposed (principal); R73.09 Other abnormal glucose; E66.01 Morbid (severe) obesity due to excess calories; Z71.3 Dietary counseling and surveillance; E65 Localized adiposity; L30.4 Erythema intertrigo
CPT/HCPCS: 11042; 11045

== ENCOUNTER 2019-01-31 11:15 | Outpatient (RCR) | payer MEDICAID, SELFPAY ==
[2019-01-03 01:11] VITALS: BP 154/95; PULSE 108; RESP 18; TEMP 36
[2019-01-04 12:31] VITALS: BP 130/82; PULSE 129; RESP 18; TEMP 36; BMI 78.4
--- NOTE | 2019-01-04 14:33 | PCM.WC.PN ---
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 Status: Chronic Current Visit: Yes Code(s): L98.492 - Non-pressure chronic ulcer of skin of other sites with fat layer exposed (2) Erythema intertrigo Status: Chronic Current Visit: Yes Code(s): L30.4 - Erythema intertrigo Comment: abdominal wall skin crease intertrigo (3) Panniculitis Status: Chronic Current Visit: Yes Code(s): M79.3 - Panniculitis, unspecified (4) Obesity, Class III, BMI 40-49.9 (morbid obesity) Status: Chronic Current Visit: Yes Code(s): E66.01 - Morbid (severe) obesity due to excess calories (5) Prediabetes Status: Chronic Current Visit: Yes Code(s): R73.03 - Prediabetes Type of Wound Date of Service: 01/04/19 Chief Complaint: Nonhealing ulcers right lateral abdominal wall and lower anterior abdominal wall. History of Wound: Surgery 09/21/18 - Surgical preparation right lateral abdominal wall massive panniculus with excisional debridement skin and subcutaneous tissue for necrotizing soft tissue infection and panniculectomy (858 cm2). Wound care - Dakin's dressing changes. Theraskin #1 applied today. Initially she had the VAC and had issues with it at the [facility]. Today denies any fever, chills or nausea. She states her appetite is good and she is supplementing with protein shakes. Operative culture - Staphylococcus simulans, Corynebacteriurm striatum, Corynebacterium amycolatum, and Anaerobic cocci. She was treated initially with Vancomycin and then was placed on Levaquin for the ECF. With the recent Anaerobic cocci, will add Cleocin. Prealbumin from 09/22/18 was 12.0. Encouraged nutritional supplementation with protein to help the healing process. Today she denies fever. Her appetite is ok. She is now home from the [facility]. Progress of Wound: Improved. - Physical Exam Vital Signs Temp Pulse Resp BP 96.8 F L 129 H 18 130/82 H 01/04/19 12:31 01/04/19 12:31 01/04/19 12:31 01/04/19 12:31 General: Alert, Oriented x3, Cooperative HEENT: Atraumatic Oral: Moist Mucosa Lungs: Normal air movement Cardiovascular: Regular rate Abdomen: Obese Extremities: Capillary Refill Less than 3 Seconds, Edema Skin: Ulcer/ Wound - Right abdominal ulcer and mid abdominal open area in skin fold. Wound Measurements and Assessment WC - Nurse 1 - General Ulcer Measurement Start: 01/04/19 12:31 Freq: Status: Active Protocol: Activity Type Activity Date Activity User E-Sign Co-Sign Detail Recorded Client Recorded Date Recorded By Document 01/04/19 12:31 MW [id number] 01/04/19 12:41 MW 01/04/19 12:31 Wound Center Nurse 1 [Ulcer Assessment] #3 Mid Abdominal Fold -Combined with other wound No -Current Size (cm) - Length 0.2 -Current Size (cm) - Width 2.4 -Current Size (cm) - Depth 0.1 -Total Square Cm 0.48 -Date of Last Picture (Recall this 01/04/19 field) -Photo Taken Yes -Epithelialization Small 1-33% -Tunneling No -Undermining/Tunneling No -Circular Undermining No -Exudate Amt Small -Exudate Type Serous -Wound Margin Flat & Intact -Granulation Amt Large (67-100%) -Granulation Quality Red -Slough/Fibrin Yes -Necrosis Amt Small (1-33%) -Necrotic Tissue Type Adherent Slough -Structure Exposed N/A -Texture (Lyly-wound Skin Appearance) Assessed Scarring -Moisture (Lyly-wound Skin Appearance No Abnormality ) Assessed -Color (Lyly-wound Skin Appearance) No Abnormality Assessed -Temperature (Lyly-wound Skin No Abnormality Appearance) (Pt Warm) -Tenderness on Palpation (Lyly-wound No Skin Appearance) -Ulcer Cleansing soap and water -Foul Odor after Cleansing No -Anesthetic Used 4% Lidocaine Solution #2 right pannus post-op -Combined with other wound No -Current Size (cm) - Length 10.0 -Current Size (cm) - Width 10.2 -Current Size (cm) - Depth 0.1 -Total Square Cm 102.00 -Date of Last Picture (Recall this 01/04/19 field) -Photo Taken Yes -Epithelialization Small 1-33% -Tunneling No -Undermining/Tunneling No -Circular Undermining No -Exudate Amt Medium -Exudate Type Serous -Wound Margin Flat & Intact -Granulation Amt Large (67-100%) -Granulation Quality Red -Slough/Fibrin Yes -Necrosis Amt Small (1-33%) -Necrotic Tissue Type Adherent Slough -Structure Exposed N/A -Texture (Lyly-wound Skin Appearance) Assessed Scarring -Moisture (Lyly-wound Skin Appearance No Abnormality ) Assessed -Color (Lyly-wound Skin Appearance) No Abnormality Assessed -Temperature (Lyly-wound Skin No Abnormality Appearance) (Pt Warm) -Tenderness on Palpation (Lyly-wound Yes Skin Appearance) -Ulcer Cleansing soap and water -Foul Odor after Cleansing No -Anesthetic Used 4% Lidocaine Solution [Edema Assessment] -Lower Limb Edema Present No WC - Nurse 2 - General Ulcer CM Notes Start: 01/04/19 12:31 Freq: Status: Active Protocol: Activity Type Activity Date Activity User E-Sign Co-Sign Detail Recorded Client Recorded Date Recorded By Document 01/04/19 12:58 LOIS [id number] 01/04/19 13:00 LOIS 01/04/19 12:58 Wound Center Nurse 2 [Procedure/Treatment] #3 Mid Abdominal Fold -Time 12:58 -Correct Patient Yes -Correct Side, Site, Position Yes -Correct Procedure Yes -Procedure Performed Yes -Type of Procedure Debridement -Clinical Debridement Subcutaneous -Post Debridement Size (cm) - Length 0.6 -Post Debridement Size (cm) - Width 2.5 -Post Debridement Size (cm) - Depth 0.2 -Total Square Cm 1.50 -Wound/Ulcer Outcome Not Healed -Ulcer Cleansing Rinsed/ Irrigated with Saline -Foul Odor after Cleansing No -Bioengineered Tissue No -Type of bioengineered Tissue THERASKIN -Bleeding Controlled with Pressure -Offloading No -Treatment Response Procedure Tolerated Well #2 right pannus post-op -Time 12:59 -Correct Patient Yes -Correct Side, Site, Position Yes -Correct Procedure Yes -Procedure Performed Yes -Type of Procedure Debridement -Clinical Debridement Subcutaneous -Post Debridement Size (cm) - Length 9.4 -Post Debridement Size (cm) - Width 12.2 -Post Debridement Size (cm) - Depth 0.1 -Total Square Cm 114.68 -Wound/Ulcer Outcome Not Healed -Ulcer Cleansing Rinsed/ Irrigated with Saline -Foul Odor after Cleansing No -Bioengineered Tissue Yes -Type of bioengineered Tissue THERASKIN -Expiration Date 07/04/22 -Product Lot Number [id number] -Percent Used 100 -Saline Lot Number [id number] -Bleeding Controlled with Pressure -Other id:[id number] also used. -Offloading No -Treatment Response Procedure Tolerated Well [See Physician Procedure note for Specifics] Pain Scale: 0-10 Numeric [Pain] -Is Patient Pain Free? Yes Musculoskeletal: No Tenderness to Palpation of Joints or Extremities Neurological: Neuro grossly intact Psych/Mental Status: Normal Affect, Appropriate Debridement Note Post-Debridement Measurements/Treatment WC - Nurse 2 - General Ulcer CM Notes Start: 01/04/19 12:31 Freq: Status: Active Protocol: Activity Type Activity Date Activity User E-Sign Co-Sign Detail Recorded Client Recorded Date Recorded By Document 01/04/19 12:58 LOIS [id number] 01/04/19 13:00 LOIS 01/04/19 12:58 Wound Center Nurse 2 #3 Mid Abdominal Fold -Time 12:58 -Correct Patient Yes -Correct Side, Site, Position Yes -Correct Procedure Yes -Procedure Performed Yes -Type of Procedure Debridement -Clinical Debridement Subcutaneous -Post Debridement Size (cm) - Length 0.6 -Post Debridement Size (cm) - Width 2.5 -Post Debridement Size (cm) - Depth 0.2 -Total Square Cm 1.50 -Wound/Ulcer Outcome Not Healed -Ulcer Cleansing Rinsed/ Irrigated with Saline -Foul Odor after Cleansing No -Bioengineered Tissue No -Type of bioengineered Tissue THER[place]IN -Bleeding Controlled with Pressure -Offloading No -Treatment Response Procedure Tolerated Well #2 right pannus post-op -Time 12:59 -Correct Patient Yes -Correct Side, Site, Position Yes -Correct Procedure Yes -Procedure Performed Yes -Type of Procedure Debridement -Clinical Debridement Subcutaneous -Post Debridement Size (cm) - Length 9.4 -Post Debridement Size (cm) - Width 12.2 -Post Debridement Size (cm) - Depth 0.1 -Total Square Cm 114.68 -Wound/Ulcer Outcome Not Healed -Ulcer Cleansing Rinsed/ Irrigated with Saline -Foul Odor after Cleansing No -Bioengineered Tissue Yes -Type of bioengineered Tissue THER[place]IN -Expiration Date 07/04/22 -Product Lot Number [id number] -Percent Used 100 -Saline Lot Number [id number] -Bleeding Controlled with Pressure -Other id:[id number] also used. -Offloading No -Treatment Response Procedure Tolerated Well Pain Scale: 0-10 Numeric Is Patient Pain Free? Yes Wound debrided: Right abdominal ulcer Laterality: Right Type of Debridement: Excisional debridement Anesthesia Used: 4% Lidocaine Solution Depth: Down to and including healthy tissue, in the subcutaneous layer Percentage of wound debrided: 100 Instrument Used: 7mm curette Tissue Removed: Subcutaneous tissue and slough Severity: Fat Layer Exposed Amount of bleeding with debridement: Mild Bleeding Controlled with: Pressure, Compression and gauze Patient tolerated procedure well - Additional Wound Wound debrided: Mid abdominal ulcer in skin fold Laterality: Not Applicable Type of Debridement: Excisional debridement Anesthesia Used: 4% Lidocaine Solution Depth: Down to and including healthy tissue, in the subcutaneous layer Percentage of wound debrided: 100 Instrument Used: 5mm curette Tissue Removed: Subcutaneous tissue and slough Severity: Limited To Skin Breakdown Amount of bleeding with debridement: Mild Bleeding Controlled with: Pressure Patient tolerated procedure: Patient tolerated procedure well Assessment/Plan Active Problems (Last Reviewed 11/19/18 @ 10:25 by Angela Song) Erythema intertrigo (Chronic) abdominal wall skin crease intertrigo Panniculitis (Chronic) Skin ulcer of abdominal wall with fat layer exposed (Chronic) Obesity, Class III, BMI 40-49.9 (morbid obesity) (Chronic) Prediabetes (Chronic) Assessment: 1. Nonhealing ulcers right lateral abdominal wall and lower anterior abdominal wall in massive abdominal panniculus. 2. Massive abdominal panniculus with panniculitis. 3. Borderline diabetes. 4. Abdominal wall skin crease intertrigo. 5. Morbid obesity. 6. Incisional hernia. 7. s/p surgical preparation right lateral abdominal wall massive panniculus with excisional debridement skin and subcutaneous tissue for necrotizing soft tissue infection and panniculectomy (858 cm2). Plan: Stop Dakin's dressing changes. The wound bed is looking much improved. Theraskin #1 application applied. Placed two theraskin, using 100% of the products. Secured with dermabond and steri strips. Covered with adaptic wound veil secured with steri strips. Patient tolerated the application well. The next surgery will take place in 6 months because of her blood pressure issues after the last surgery necessitating ICU admission and pressors and PRBC. She understands that multiple procedures will be necessary. Also the central portion would be excised last because of the presence of the hernia. At that time would need assistance from General Surgery for repair of the hernia. Her operative culture showed Staphylococcus simulans, Corynebacterium striatum, and Corynebacterium amycolatum, and Anaerobic cocci. She has been on Levaquin. Cleocin will be added for 10 days. Her Prealbumin from 09/22/18 was 12.0. Encourage nutritional supplementation with protein to help the healing process. She has been drinking [employer] protein supplement. She is home from [place]. She is doing well. Her mother is doing her dressing changes and is doing a good job with them. She states she has lost over 100 lbs since her surgery and is feeling well. She states she is able to move easier. She is now home. Followup one week. Code Visit [id number]: 70045 Skin sub graft trnk/arm/leg
[2019-01-10 09:01] VITALS: BP 148/94; PULSE 115; RESP 18; TEMP 36.3; BMI 78.4
--- NOTE | 2019-01-10 10:31 | PCM.WC.PN ---
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 Status: Chronic Current Visit: Yes Code(s): L98.492 - Non-pressure chronic ulcer of skin of other sites with fat layer exposed (2) Erythema intertrigo Status: Chronic Current Visit: Yes Code(s): L30.4 - Erythema intertrigo Comment: abdominal wall skin crease intertrigo (3) Panniculitis Status: Chronic Current Visit: Yes Code(s): M79.3 - Panniculitis, unspecified (4) Obesity, Class III, BMI 40-49.9 (morbid obesity) Status: Chronic Current Visit: Yes Code(s): E66.01 - Morbid (severe) obesity due to excess calories (5) Prediabetes Status: Chronic Current Visit: Yes Code(s): R73.03 - Prediabetes Type of Wound Date of Service: 01/10/19 Chief Complaint: Nonhealing ulcers right lateral abdominal wall and lower anterior abdominal wall. History of Wound: Surgery 09/21/18 - Surgical preparation right lateral abdominal wall massive panniculus with excisional debridement skin and subcutaneous tissue for necrotizing soft tissue infection and panniculectomy (858 cm2). Wound care - Dakin's dressing changes. Theraskin #2 applied today. Initially she had the VAC and had issues with it at the [facility]. Today denies any fever, chills or nausea. She states her appetite is good and she is supplementing with protein shakes. Operative culture - Staphylococcus simulans, Corynebacteriurm striatum, Corynebacterium amycolatum, and Anaerobic cocci. She was treated initially with Vancomycin and then was placed on Levaquin for the ECF. With the recent Anaerobic cocci, will add Cleocin. Prealbumin from 09/22/18 was 12.0. Encouraged nutritional supplementation with protein to help the healing process. Today she denies fever. Her appetite is ok. She is now home from the [facility]. Progress of Wound: Improved. - Physical Exam Vital Signs Temp Pulse Resp BP 97.3 F L 115 H 18 148/94 H 01/10/19 09:01 01/10/19 09:01 01/10/19 09:01 01/10/19 09:01 General: Alert, Oriented x3, Cooperative HEENT: Atraumatic Oral: Moist Mucosa Lungs: Normal air movement Cardiovascular: Regular rate Abdomen: Obese Skin: Ulcer/ Wound - Right abdominal ulcer Wound Measurements and Assessment WC - Nurse 1 - General Ulcer Measurement Start: 01/04/19 12:31 Freq: Status: Active Protocol: Activity Type Activity Date Activity User E-Sign Co-Sign Detail Recorded Client Recorded Date Recorded By Document 01/10/19 09:01 MW [id number] 01/10/19 09:07 MW 01/10/19 09:01 Wound Center Nurse 1 [Ulcer Assessment] #3 Mid Abdominal Fold -Combined with other wound No -Current Size (cm) - Length 0.3 -Current Size (cm) - Width 2.4 -Current Size (cm) - Depth 0.2 -Total Square Cm 0.72 -Photo Taken No -Epithelialization Small 1-33% -Tunneling No -Undermining/Tunneling No -Circular Undermining No -Exudate Amt Small -Exudate Type Serosanguineous -Wound Margin Flat & Intact -Granulation Amt Large (67-100%) -Granulation Quality [place] -Slough/Fibrin Yes -Necrosis Amt Small (1-33%) -Necrotic Tissue Type Adherent Slough -Structure Exposed N/A -Texture (Lyly-wound Skin Appearance) Assessed Scarring -Moisture (Lyly-wound Skin Appearance No Abnormality ) Assessed -Color (Lyly-wound Skin Appearance) No Abnormality Assessed -Temperature (Lyly-wound Skin No Abnormality Appearance) (Pt Warm) -Tenderness on Palpation (Lyly-wound No Skin Appearance) -Ulcer Cleansing Rinsed/ Irrigated with Saline -Foul Odor after Cleansing No -Anesthetic Used 4% Lidocaine Solution #2 right pannus post-op -Combined with other wound No -Current Size (cm) - Length 8.6 -Current Size (cm) - Width 13.0 -Current Size (cm) - Depth 0.1 -Total Square Cm 111.80 -Photo Taken No -Epithelialization Small 1-33% -Tunneling No -Undermining/Tunneling No -Circular Undermining No -Exudate Amt Medium -Exudate Type Serosanguineous -Wound Margin Flat & Intact -Granulation Amt Small (1-33%) -Granulation Quality [place] -Slough/Fibrin Yes -Necrosis Amt Large (67-100%) -Necrotic Tissue Type Adherent Slough -Structure Exposed N/A -Texture (Lyly-wound Skin Appearance) Assessed Scarring -Moisture (Lyly-wound Skin Appearance Assessed ) Dry/Scaly -Color (Lyly-wound Skin Appearance) Assessed -Temperature (Lyly-wound Skin No Abnormality Appearance) (Pt Warm) -Tenderness on Palpation (Lyly-wound No Skin Appearance) -Ulcer Cleansing Rinsed/ Irrigated with Saline -Foul Odor after Cleansing No -Anesthetic Used 4% Lidocaine Solution [Edema Assessment] -Lower Limb Edema Present No WC - Nurse 2 - General Ulcer CM Notes Start: 01/04/19 12:31 Freq: Status: Active Protocol: Activity Type Activity Date Activity User E-Sign Co-Sign Detail Recorded Client Recorded Date Recorded By Document 01/10/19 09:22 LOIS [id number] 01/10/19 09:30 LOIS 01/10/19 09:22 Wound Center Nurse 2 [Procedure/Treatment] #3 Mid Abdominal Fold -Time 09:24 -Correct Patient Yes -Correct Side, Site, Position Yes -Correct Procedure Yes -Procedure Performed Yes -Type of Procedure Debridement -Clinical Debridement Subcutaneous -Post Debridement Size (cm) - Length 0.5 -Post Debridement Size (cm) - Width 2.5 -Post Debridement Size (cm) - Depth 0.2 -Total Square Cm 1.25 -Wound/Ulcer Outcome Not Healed -Ulcer Cleansing Rinsed/ Irrigated with Saline -Foul Odor after Cleansing No -Bioengineered Tissue No -Bleeding Controlled with Pressure -Offloading No -Treatment Response Procedure Tolerated Well #2 right pannus post-op -Time 09:24 -Correct Patient Yes -Correct Side, Site, Position Yes -Correct Procedure Yes -Procedure Performed Yes -Type of Procedure Debridement -Clinical Debridement Subcutaneous -Post Debridement Size (cm) - Length 8.7 -Post Debridement Size (cm) - Width 13.0 -Post Debridement Size (cm) - Depth 0.1 -Total Square Cm 113.10 -Wound/Ulcer Outcome Not Healed -Ulcer Cleansing Rinsed/ Irrigated with Saline -Foul Odor after Cleansing No -Bioengineered Tissue Yes -Type of bioengineered Tissue THERASKIN -Expiration Date 04/07/22 -Product Lot Number [id number] -Percent Used 100 -Saline Lot Number [id number] -Bleeding Controlled with Pressure -Other [id number]- 2nd graft applied. -Offloading No -Treatment Response Procedure Tolerated Well [See Physician Procedure note for Specifics] Pain Scale: 0-10 Numeric [Pain] -Is Patient Pain Free? Yes Musculoskeletal: No Tenderness to Palpation of Joints or Extremities Neurological: Neuro grossly intact Psych/Mental Status: Normal Affect, Appropriate Debridement Note Post-Debridement Measurements/Treatment WC - Nurse 2 - General Ulcer CM Notes Start: 01/04/19 12:31 Freq: Status: Active Protocol: Activity Type Activity Date Activity User E-Sign Co-Sign Detail Recorded Client Recorded Date Recorded By Document 01/04/19 12:58 [id number] 01/04/19 13:00 Document 01/10/19 09:22 [id number] 01/10/19 09:30 01/04/19 01/10/19 12:58 09:22 Wound Center Nurse 2 #3 Mid Abdominal Fold -Time 12:58 09:24 -Correct Patient Yes Yes -Correct Side, Site, Position Yes Yes -Correct Procedure Yes Yes -Procedure Performed Yes Yes -Type of Procedure Debridement Debridement -Clinical Debridement Subcutaneous Subcutaneous -Post Debridement Size (cm) - Length 0.6 0.5 -Post Debridement Size (cm) - Width 2.5 2.5 -Post Debridement Size (cm) - Depth 0.2 0.2 -Total Square Cm 1.50 1.25 -Wound/Ulcer Outcome Not Healed Not Healed -Ulcer Cleansing Rinsed/ Rinsed/ Irrigated with Irrigated with Saline Saline -Foul Odor after Cleansing No No -Bioengineered Tissue No No -Type of bioengineered Tissue THERASKIN -Bleeding Controlled with Pressure Pressure -Offloading No No -Treatment Response Procedure Procedure Tolerated Well Tolerated Well #2 right pannus post-op -Time 12:59 09:24 -Correct Patient Yes Yes -Correct Side, Site, Position Yes Yes -Correct Procedure Yes Yes -Procedure Performed Yes Yes -Type of Procedure Debridement Debridement -Clinical Debridement Subcutaneous Subcutaneous -Post Debridement Size (cm) - Length 9.4 8.7 -Post Debridement Size (cm) - Width 12.2 13.0 -Post Debridement Size (cm) - Depth 0.1 0.1 -Total Square Cm 114.68 113.10 -Wound/Ulcer Outcome Not Healed Not Healed -Ulcer Cleansing Rinsed/ Rinsed/ Irrigated with Irrigated with Saline Saline -Foul Odor after Cleansing No No -Bioengineered Tissue Yes Yes -Type of bioengineered Tissue THERASKIN THERASKIN -Expiration Date 07/04/22 04/07/22 -Product Lot Number [id number] -Percent Used 100 100 -Saline Lot Number [id number] -Bleeding Controlled with Pressure Pressure -Other id:[id number]- also used. 2nd graft applied. -Offloading No No -Treatment Response Procedure Procedure Tolerated Well Tolerated Well Pain Scale: 0-10 Numeric Is Patient Pain Free? Yes Yes Wound debrided: right abdominal ulcer Type of Debridement: Excisional debridement Anesthesia Used: 5% Lidocaine Gel Depth: Down to and including healthy tissue, in the subcutaneous layer Percentage of wound debrided: 50 - only the part of wound that was not covered by the theraskin was debrided. Instrument Used: 7mm curette Tissue Removed: Subcutaneous tissue and slough Severity: Fat Layer Exposed Amount of bleeding with debridement: Mild Bleeding Controlled with: Pressure Patient tolerated procedure well Assessment/Plan Active Problems (Last Reviewed 11/19/18 @ 10:25 by Angela Song) Erythema intertrigo (Chronic) abdominal wall skin crease intertrigo Panniculitis (Chronic) Skin ulcer of abdominal wall with fat layer exposed (Chronic) Obesity, Class III, BMI 40-49.9 (morbid obesity) (Chronic) Prediabetes (Chronic) Assessment: 1. Nonhealing ulcers right lateral abdominal wall and lower anterior abdominal wall in massive abdominal panniculus. 2. Massive abdominal panniculus with panniculitis. 3. Borderline diabetes. 4. Abdominal wall skin crease intertrigo. 5. Morbid obesity. 6. Incisional hernia. 7. s/p surgical preparation right lateral abdominal wall massive panniculus with excisional debridement skin and subcutaneous tissue for necrotizing soft tissue infection and panniculectomy (858 cm2). Plan: Dakin's dressing changes was stopped. The wound bed is looking much improved. Theraskin #2 application applied. Placed two theraskin, using 100% of the products. Secured with dermabond and steri strips. Covered with adaptic wound veil secured with steri strips. Patient tolerated the application well. The next surgery will take place in 6 months because of her blood pressure issues after the last surgery necessitating ICU admission and pressors and PRBC. She understands that multiple procedures will be necessary. Also the central portion would be excised last because of the presence of the hernia. At that time would need assistance from General Surgery for repair of the hernia. Her operative culture showed Staphylococcus simulans, Corynebacterium striatum, and Corynebacterium amycolatum, and Anaerobic cocci. She has been on Levaquin. Cleocin will be added for 10 days. Her Prealbumin from 09/22/18 was 12.0. Encourage nutritional supplementation with protein to help the healing process. She has been drinking KIWATCH protein supplement. She is home from [place]. She is doing well. Her mother is doing her dressing changes and is doing a good job with them. She states she has lost over 100 lbs since her surgery and is feeling well. She states she is able to move easier. She is now home. Followup one week. Code Visit 150xxx-152xx: 91620 Skin sub graft trnk/arm/leg Add On Codes: 91329 Skin sub graft t/a/l add-on - x3
[2019-01-18 12:55] VITALS: BP 149/89; PULSE 128; RESP 20; TEMP 36.7; BMI 78.4
--- NOTE | 2019-01-18 13:43 | WC ---
abd binder applied
--- NOTE | 2019-01-18 15:50 | PCM.WC.PN ---
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 Status: Chronic Current Visit: Yes Code(s): L98.492 - Non-pressure chronic ulcer of skin of other sites with fat layer exposed (2) Erythema intertrigo Status: Chronic Current Visit: Yes Code(s): L30.4 - Erythema intertrigo Comment: abdominal wall skin crease intertrigo (3) Panniculitis Status: Chronic Current Visit: Yes Code(s): M79.3 - Panniculitis, unspecified (4) Obesity, Class III, BMI 40-49.9 (morbid obesity) Status: Chronic Current Visit: Yes Code(s): E66.01 - Morbid (severe) obesity due to excess calories (5) Prediabetes Status: Chronic Current Visit: Yes Code(s): R73.03 - Prediabetes Type of Wound Date of Service: 01/18/19 Chief Complaint: Nonhealing ulcers right lateral abdominal wall and lower anterior abdominal wall. History of Wound: Surgery 09/21/18 - Surgical preparation right lateral abdominal wall massive panniculus with excisional debridement skin and subcutaneous tissue for necrotizing soft tissue infection and panniculectomy (858 cm2). Mid abdmonal ulcer is healed. Encouraged to continue to keep area dry to prevent maceration of the area and reopening of that ulcer. Wound care -Jean-Pierreaskin #3 applied today. Initially she had the VAC and had issues with it at the [facility]. Today denies any fever, chills or nausea. She states her appetite is good and she is supplementing with protein shakes. Operative culture - Staphylococcus simulans, Corynebacteriurm striatum, Corynebacterium amycolatum, and Anaerobic cocci. She was treated initially with Vancomycin and then was placed on Levaquin for the ECF. With the recent Anaerobic cocci, will add Cleocin. Prealbumin from 09/22/18 was 12.0. Encouraged nutritional supplementation with protein to help the healing process. Today she denies fever. Her appetite is ok. She is now home from the [facility]. Progress of Wound: Much improved. - Physical Exam Vital Signs Temp Pulse Resp BP 98.0 F 128 H 20 H 149/89 H 01/18/19 12:55 01/18/19 12:55 01/18/19 12:55 01/18/19 12:55 General: Alert, Oriented x3, Cooperative HEENT: Atraumatic Oral: Moist Mucosa Lungs: Normal air movement Cardiovascular: Regular rate Abdomen: Obese Extremities: Capillary Refill Less than 3 Seconds, Edema Skin: Ulcer/ Wound - Right abdomen ulcer. Mid abdominal ulcer healed today. Wound Measurements and Assessment WC - Nurse 1 - General Ulcer Measurement Start: 01/04/19 12:31 Freq: Status: Active Protocol: Activity Type Activity Date Activity User E-Sign Co-Sign Detail Recorded Client Recorded Date Recorded By Document 01/18/19 12:55 MW [id number] 01/18/19 13:02 MW 01/18/19 12:55 Wound Center Nurse 1 [Ulcer Assessment] #3 Mid Abdominal Fold -Combined with other wound No -Current Size (cm) - Length 0.1 -Current Size (cm) - Width 0.1 -Current Size (cm) - Depth 0.1 -Total Square Cm 0.01 -Photo Taken No -Epithelialization Small 1-33% -Tunneling No -Undermining/Tunneling No -Circular Undermining No -Exudate Amt None Present -Exudate Type Serosanguineous -Wound Margin Flat & Intact -Granulation Amt None Present (0 %) -Granulation Quality N/A -Slough/Fibrin Yes -Necrosis Amt Small (1-33%) -Necrotic Tissue Type Adherent Slough -Structure Exposed N/A -Texture (Lyly-wound Skin Appearance) Assessed Scarring -Moisture (Lyly-wound Skin Appearance No Abnormality ) Assessed -Color (Lyly-wound Skin Appearance) No Abnormality Assessed -Temperature (Lyly-wound Skin No Abnormality Appearance) (Pt Warm) -Tenderness on Palpation (Lyly-wound No Skin Appearance) -Ulcer Cleansing soap and water -Foul Odor after Cleansing No -Anesthetic Used 4% Lidocaine Solution #2 right pannus post-op -Combined with other wound No -Current Size (cm) - Length 8.1 -Current Size (cm) - Width 11.7 -Current Size (cm) - Depth 0.1 -Total Square Cm 94.77 -Photo Taken No -Epithelialization Medium 34-66% -Tunneling No -Undermining/Tunneling No -Circular Undermining No -Exudate Amt Medium -Exudate Type Serosanguineous -Wound Margin Flat & Intact -Granulation Amt Small (1-33%) -Granulation Quality Red -Slough/Fibrin Yes -Necrosis Amt Large (67-100%) -Necrotic Tissue Type Adherent Slough -Structure Exposed N/A -Texture (Lyly-wound Skin Appearance) Assessed Scarring -Moisture (Lyly-wound Skin Appearance No Abnormality ) Assessed -Color (Lyly-wound Skin Appearance) No Abnormality Assessed -Temperature (Lyly-wound Skin No Abnormality Appearance) (Pt Warm) -Tenderness on Palpation (Lyly-wound No Skin Appearance) -Ulcer Cleansing soap and water -Anesthetic Used 4% Lidocaine Solution [Edema Assessment] -Lower Limb Edema Present No WC - Nurse 2 - General Ulcer CM Notes Start: 01/04/19 12:31 Freq: Status: Active Protocol: Activity Type Activity Date Activity User E-Sign Co-Sign Detail Recorded Client Recorded Date Recorded By Document 01/18/19 13:20 LOIS [id number] 01/18/19 13:23 LOIS 01/18/19 13:20 Wound Center Nurse 2 [Procedure/Treatment] #3 Mid Abdominal Fold -Correct Patient No -Correct Side, Site, Position No -Correct Procedure No -Procedure Performed No -Post Debridement Size (cm) - Length 0 -Post Debridement Size (cm) - Width 0 -Post Debridement Size (cm) - Depth 0 -Total Square Cm 0 -Wound/Ulcer Outcome Healed- Epithelialized #2 right pannus post-op -Time 13:21 -Correct Patient Yes -Correct Side, Site, Position Yes -Correct Procedure Yes -Procedure Performed Yes -Type of Procedure Debridement -Clinical Debridement Subcutaneous -Post Debridement Size (cm) - Length 8 -Post Debridement Size (cm) - Width 11 -Post Debridement Size (cm) - Depth 0.1 -Total Square Cm 88 -Wound/Ulcer Outcome Not Healed -Ulcer Cleansing Rinsed/ Irrigated with Saline -Foul Odor after Cleansing No -Bioengineered Tissue Yes -Type of bioengineered Tissue THERASKIN -Expiration Date 07/17/22 -Product Lot Number [id number] -Percent Used 100 -Saline Lot Number [id number] -Bleeding Controlled with Pressure -Other 2nd theraskin-- id [id number] exp: 2021 -Offloading No -Treatment Response Procedure Tolerated Well [See Physician Procedure note for Specifics] Pain Scale: 0-10 Numeric [Pain] -Is Patient Pain Free? Yes Musculoskeletal: No Tenderness to Palpation of Joints or Extremities Neurological: Neuro grossly intact Psych/Mental Status: Normal Affect, Appropriate Debridement Note Post-Debridement Measurements/Treatment WC - Nurse 2 - General Ulcer CM Notes Start: 01/04/19 12:31 Freq: Status: Active Protocol: Activity Type Activity Date Activity User E-Sign Co-Sign Detail Recorded Client Recorded Date Recorded By Document 01/04/19 12:58 [id number] 01/04/19 13:00 Document 01/10/19 09:22 [id number] 01/10/19 09:30 Document 01/18/19 13:20 [id number] 01/18/19 13:23 01/04/19 01/10/19 01/18/19 12:58 09:22 13:20 Wound Center Nurse 2 #3 Mid Abdominal Fold -Time 12:58 09:24 -Correct Patient Yes Yes No -Correct Side, Site, Position Yes Yes No -Correct Procedure Yes Yes No -Procedure Performed Yes Yes No -Type of Procedure Debridement Debridement -Clinical Debridement Subcutaneous Subcutaneous -Post Debridement Size (cm) - Length 0.6 0.5 0 -Post Debridement Size (cm) - Width 2.5 2.5 0 -Post Debridement Size (cm) - Depth 0.2 0.2 0 -Total Square Cm 1.50 1.25 0 -Wound/Ulcer Outcome Not Healed Not Healed Healed- Epithelialized -Ulcer Cleansing Rinsed/ Rinsed/ Irrigated with Irrigated with Saline Saline -Foul Odor after Cleansing No No -Bioengineered Tissue No No -Type of bioengineered Tissue THERASKIN -Bleeding Controlled with Pressure Pressure -Offloading No No -Treatment Response Procedure Procedure Tolerated Well Tolerated Well #2 right pannus post-op -Time 12:59 09:24 13:21 -Correct Patient Yes Yes Yes -Correct Side, Site, Position Yes Yes Yes -Correct Procedure Yes Yes Yes -Procedure Performed Yes Yes Yes -Type of Procedure Debridement Debridement Debridement -Clinical Debridement Subcutaneous Subcutaneous Subcutaneous -Post Debridement Size (cm) - Length 9.4 8.7 8 -Post Debridement Size (cm) - Width 12.2 13.0 11 -Post Debridement Size (cm) - Depth 0.1 0.1 0.1 -Total Square Cm 114.68 113.10 88 -Wound/Ulcer Outcome Not Healed Not Healed Not Healed -Ulcer Cleansing Rinsed/ Rinsed/ Rinsed/ Irrigated with Irrigated with Irrigated with Saline Saline Saline -Foul Odor after Cleansing No No No -Bioengineered Tissue Yes Yes Yes -Type of bioengineered Tissue THERASKIN THERASKIN THERASKIN -Expiration Date 07/04/22 04/07/22 07/17/22 -Product Lot Number [id number] -Percent Used 100 100 100 -Saline Lot Number [id number] -Bleeding Controlled with Pressure Pressure Pressure -Other id:[id number]- 2nd theraskin-- also used. 2nd graft id [id number] applied. exp: 2021 -Offloading No No No -Treatment Response Procedure Procedure Procedure Tolerated Well Tolerated Well Tolerated Well Pain Scale: 0-10 Numeric Is Patient Pain Free? Yes Yes Yes Wound debrided: right abdomen Laterality: Right Type of Debridement: Excisional debridement Anesthesia Used: 4% Lidocaine Solution Depth: Down to and including healthy tissue, in the subcutaneous layer Percentage of wound debrided: 100 Instrument Used: 7mm curette Tissue Removed: Subcutaneous tissue and slough Severity: Fat Layer Exposed Amount of bleeding with debridement: Mild Bleeding Controlled with: Pressure, Compression and gauze Patient tolerated procedure well Assessment/Plan Active Problems (Last Reviewed 11/19/18 @ 10:25 by Angela Song) Erythema intertrigo (Chronic) abdominal wall skin crease intertrigo Panniculitis (Chronic) Skin ulcer of abdominal wall with fat layer exposed (Chronic) Obesity, Class III, BMI 40-49.9 (morbid obesity) (Chronic) Prediabetes (Chronic) Assessment: 1. Nonhealing ulcers right lateral abdominal wall and lower anterior abdominal wall in massive abdominal panniculus. 2. Massive abdominal panniculus with panniculitis. 3. Borderline diabetes. 4. Abdominal wall skin crease intertrigo. 5. Morbid obesity. 6. Incisional hernia. 7. s/p surgical preparation right lateral abdominal wall massive panniculus with excisional debridement skin and subcutaneous tissue for necrotizing soft tissue infection and panniculectomy (858 cm2). Plan: Dakin's dressing changes was stopped. The wound is looking much improved. Theraskin #3 application applied. Placed two theraskin, using 100% of the products. Secured with dermabond and steri strips. Covered with adaptic wound veil secured with steri strips. Patient tolerated the application well. The next surgery will take place in 6 months because of her blood pressure issues after the last surgery necessitating ICU admission and pressors and PRBC. She understands that multiple procedures will be necessary. Also the central portion would be excised last because of the presence of the hernia. At that time would need assistance from General Surgery for repair of the hernia. Her operative culture showed Staphylococcus simulans, Corynebacterium striatum, and Corynebacterium amycolatum, and Anaerobic cocci. She has been on Levaquin. Cleocin will be added for 10 days. Her Prealbumin from 09/22/18 was 12.0. Encourage nutritional supplementation with protein to help the healing process. She has been drinking Boost protein supplement. She is home from [place]. She is doing well. Her mother is doing her dressing changes and is doing a good job with them. She states she has lost over 100 lbs since her surgery and is feeling well. She states she is able to move easier. She is now home. Followup one week. Code Visit 150xxx-152xx: 46184 Skin sub graft trnk/arm/leg Add On Codes: 97922 Skin sub graft t/a/l add-on - x3
[2019-01-24 09:11] VITALS: BP 144/83; PULSE 115; RESP 22; TEMP 36.3; BMI 78.4
--- NOTE | 2019-01-24 13:05 | PCM.WC.PN ---
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 Status: Chronic Current Visit: Yes Code(s): L98.492 - Non-pressure chronic ulcer of skin of other sites with fat layer exposed (2) Erythema intertrigo Status: Chronic Current Visit: Yes Code(s): L30.4 - Erythema intertrigo Comment: abdominal wall skin crease intertrigo (3) Panniculitis Status: Chronic Current Visit: Yes Code(s): M79.3 - Panniculitis, unspecified (4) Obesity, Class III, BMI 40-49.9 (morbid obesity) Status: Chronic Current Visit: Yes Code(s): E66.01 - Morbid (severe) obesity due to excess calories (5) Prediabetes Status: Chronic Current Visit: Yes Code(s): R73.03 - Prediabetes Type of Wound Date of Service: 01/24/19 Chief Complaint: Nonhealing ulcers right lateral abdominal wall and lower anterior abdominal wall. History of Wound: Surgery 09/21/18 - Surgical preparation right lateral abdominal wall massive panniculus with excisional debridement skin and subcutaneous tissue for necrotizing soft tissue infection and panniculectomy (858 cm2). Mid abdmonal ulcer is healed. Encouraged to continue to keep area dry to prevent maceration of the area and reopening of that ulcer. Wound care -Jean-Pierreaskin #3 applied today. Initially she had the VAC and had issues with it at the [facility]. Today denies any fever, chills or nausea. She states her appetite is good and she is supplementing with protein shakes. Operative culture - Staphylococcus simulans, Corynebacteriurm striatum, Corynebacterium amycolatum, and Anaerobic cocci. She was treated initially with Vancomycin and then was placed on Levaquin for the ECF. With the recent Anaerobic cocci, will add Cleocin. Prealbumin from 09/22/18 was 12.0. Encouraged nutritional supplementation with protein to help the healing process. Today she denies fever. Her appetite is ok. She is now home from the [facility]. Progress of Wound: Much improved. - Physical Exam Vital Signs Temp Pulse Resp BP 97.3 F L 115 H 22 H 144/83 H 01/24/19 09:11 01/24/19 09:11 01/24/19 09:11 01/24/19 09:11 General: Alert, Oriented x3, Cooperative HEENT: Atraumatic Oral: Moist Mucosa Lungs: Normal air movement Cardiovascular: Regular rate Abdomen: Obese Extremities: Edema, Peripheral Pulses Normal Skin: Ulcer/ Wound - Right abdominal ulcer and right mid abdominal ulcer Wound Measurements and Assessment WC - Nurse 1 - General Ulcer Measurement Start: 01/04/19 12:31 Freq: Status: Active Protocol: Activity Type Activity Date Activity User E-Sign Co-Sign Detail Recorded Client Recorded Date Recorded By Document 01/24/19 09:11 DL [id number] 01/24/19 09:23 DL 01/24/19 09:11 Wound Center Nurse 1 [Ulcer Assessment] #4 Mid Abd Fold -Current Size (cm) - Length 0.4 -Current Size (cm) - Width 1.6 -Current Size (cm) - Depth 0.2 -Total Square Cm 0.64 -Photo Taken Yes -Exudate Amt Small -Exudate Type Serosanguineous -Wound Margin Distinct, Outline Attached -Granulation Amt Large (67-100%) -Granulation Quality Pale [place] -Necrosis Amt None Present (0 %) -Structure Exposed N/A -Texture (Lyly-wound Skin Appearance) Scarring -Moisture (Lyly-wound Skin Appearance No Abnormality ) -Color (Lyly-wound Skin Appearance) Rubor -Temperature (Lyly-wound Skin No Abnormality Appearance) (Pt Warm) -Tenderness on Palpation (Lyly-wound No Skin Appearance) -Ulcer Cleansing Wound Cleanser -Foul Odor after Cleansing No -Anesthetic Used 4% Lidocaine Solution #2 right pannus post-op -Current Size (cm) - Length 10 -Current Size (cm) - Width 7.4 -Current Size (cm) - Depth 0.1 -Total Square Cm 74.0 -Photo Taken No -Exudate Amt Small -Exudate Type Serosanguineous -Wound Margin Indistinct, Non -Visible -Structure Exposed N/A -Texture (Lyly-wound Skin Appearance) Scarring -Color (Lyly-wound Skin Appearance) No Abnormality -Temperature (Lyly-wound Skin No Abnormality Appearance) (Pt Warm) -Tenderness on Palpation (Lyly-wound No Skin Appearance) -Foul Odor after Cleansing Yes, Due to Product Use WC - Nurse 2 - General Ulcer CM Notes Start: 01/04/19 12:31 Freq: Status: Active Protocol: Activity Type Activity Date Activity User E-Sign Co-Sign Detail Recorded Client Recorded Date Recorded By Document 01/24/19 09:43 [id number] 01/24/19 09:49 01/24/19 09:43 Wound Center Nurse 2 [Procedure/Treatment] #4 Mid Abd Fold -Time 09:43 -Correct Patient Yes -Correct Side, Site, Position Yes -Correct Procedure Yes -Procedure Performed Yes -Type of Procedure Debridement -Clinical Debridement Subcutaneous -Post Debridement Size (cm) - Length 0.7 -Post Debridement Size (cm) - Width 2.3 -Post Debridement Size (cm) - Depth 0.3 -Total Square Cm 1.61 -Wound/Ulcer Outcome Not Healed -Ulcer Cleansing Rinsed/ Irrigated with Saline -Foul Odor after Cleansing No -Bioengineered Tissue No -Bleeding Controlled with Pressure -Offloading No -Treatment Response Procedure Tolerated Well #2 right pannus post-op -Time 09:44 -Correct Patient Yes -Correct Side, Site, Position Yes -Correct Procedure Yes -Procedure Performed Yes -Type of Procedure Debridement -Clinical Debridement Subcutaneous -Post Debridement Size (cm) - Length 7.8 -Post Debridement Size (cm) - Width 9.8 -Post Debridement Size (cm) - Depth 0.2 -Total Square Cm 76.44 -Wound/Ulcer Outcome Not Healed -Ulcer Cleansing Rinsed/ Irrigated with Saline -Foul Odor after Cleansing No -Bioengineered Tissue Yes -Type of bioengineered Tissue THERASKIN -Expiration Date 09/23/22 -Product Lot Number [id number] -Percent Used 100 -Saline Lot Number [id number] -Bleeding Controlled with Pressure -Other 2nd theraskin: [id number] -Offloading No -Treatment Response Procedure Tolerated Well [See Physician Procedure note for Specifics] Pain Scale: 0-10 Numeric [Pain] -Is Patient Pain Free? Yes Musculoskeletal: No Tenderness to Palpation of Joints or Extremities Neurological: Neuro grossly intact Psych/Mental Status: Normal Affect, Appropriate Debridement Note Post-Debridement Measurements/Treatment WC - Nurse 2 - General Ulcer CM Notes Start: 01/04/19 12:31 Freq: Status: Active Protocol: Activity Type Activity Date Activity User E-Sign Co-Sign Detail Recorded Client Recorded Date Recorded By Document 01/04/19 12:58 [id number] 01/04/19 13:00 Document 01/10/19 09:22 [id number] 01/10/19 09:30 Document 01/18/19 13:20 [id number] 01/18/19 13:23 Document 01/24/19 09:43 [id number] 01/24/19 09:49 01/04/19 01/10/19 01/18/19 12:58 09:22 13:20 Wound Center Nurse 2 #4 Mid Abd Fold -Time -Correct Patient -Correct Side, Site, Position -Correct Procedure -Procedure Performed -Type of Procedure -Clinical Debridement -Post Debridement Size (cm) - Length -Post Debridement Size (cm) - Width -Post Debridement Size (cm) - Depth -Total Square Cm -Wound/Ulcer Outcome -Ulcer Cleansing -Foul Odor after Cleansing -Bioengineered Tissue -Bleeding Controlled with -Offloading -Treatment Response #3 Mid Abdominal Fold -Time 12:58 09:24 -Correct Patient Yes Yes No -Correct Side, Site, Position Yes Yes No -Correct Procedure Yes Yes No -Procedure Performed Yes Yes No -Type of Procedure Debridement Debridement -Clinical Debridement Subcutaneous Subcutaneous -Post Debridement Size (cm) - Length 0.6 0.5 0 -Post Debridement Size (cm) - Width 2.5 2.5 0 -Post Debridement Size (cm) - Depth 0.2 0.2 0 -Total Square Cm 1.50 1.25 0 -Wound/Ulcer Outcome Not Healed Not Healed Healed- Epithelialized -Ulcer Cleansing Rinsed/ Rinsed/ Irrigated with Irrigated with Saline Saline -Foul Odor after Cleansing No No -Bioengineered Tissue No No -Type of bioengineered Tissue THERASKIN -Bleeding Controlled with Pressure Pressure -Offloading No No -Treatment Response Procedure Procedure Tolerated Well Tolerated Well #2 right pannus post-op -Time 12:59 09:24 13:21 -Correct Patient Yes Yes Yes -Correct Side, Site, Position Yes Yes Yes -Correct Procedure Yes Yes Yes -Procedure Performed Yes Yes Yes -Type of Procedure Debridement Debridement Debridement -Clinical Debridement Subcutaneous Subcutaneous Subcutaneous -Post Debridement Size (cm) - Length 9.4 8.7 8 -Post Debridement Size (cm) - Width 12.2 13.0 11 -Post Debridement Size (cm) - Depth 0.1 0.1 0.1 -Total Square Cm 114.68 113.10 88 -Wound/Ulcer Outcome Not Healed Not Healed Not Healed -Ulcer Cleansing Rinsed/ Rinsed/ Rinsed/ Irrigated with Irrigated with Irrigated with Saline Saline Saline -Foul Odor after Cleansing No No No -Bioengineered Tissue Yes Yes Yes -Type of bioengineered Tissue THERASKIN THERASKIN THERASKIN -Expiration Date 07/04/22 04/07/22 07/17/22 -Product Lot Number [id number] -Percent Used 100 100 100 -Saline Lot Number [id number] -Bleeding Controlled with Pressure Pressure Pressure -Other id:[id number]- 2nd theraskin-- also used. 2nd graft id [id number] applied. exp: 2021 -Offloading No No No -Treatment Response Procedure Procedure Procedure Tolerated Well Tolerated Well Tolerated Well Pain Scale: 0-10 Numeric Is Patient Pain Free? Yes Yes Yes 01/24/19 09:43 Wound Center Nurse 2 #4 Mid Abd Fold -Time 09:43 -Correct Patient Yes -Correct Side, Site, Position Yes -Correct Procedure Yes -Procedure Performed Yes -Type of Procedure Debridement -Clinical Debridement Subcutaneous -Post Debridement Size (cm) - Length 0.7 -Post Debridement Size (cm) - Width 2.3 -Post Debridement Size (cm) - Depth 0.3 -Total Square Cm 1.61 -Wound/Ulcer Outcome Not Healed -Ulcer Cleansing Rinsed/ Irrigated with Saline -Foul Odor after Cleansing No -Bioengineered Tissue No -Bleeding Controlled with Pressure -Offloading No -Treatment Response Procedure Tolerated Well #3 Mid Abdominal Fold -Time -Correct Patient -Correct Side, Site, Position -Correct Procedure -Procedure Performed -Type of Procedure -Clinical Debridement -Post Debridement Size (cm) - Length -Post Debridement Size (cm) - Width -Post Debridement Size (cm) - Depth -Total Square Cm -Wound/Ulcer Outcome -Ulcer Cleansing -Foul Odor after Cleansing -Bioengineered Tissue -Type of bioengineered Tissue -Bleeding Controlled with -Offloading -Treatment Response #2 right pannus post-op -Time 09:44 -Correct Patient Yes -Correct Side, Site, Position Yes -Correct Procedure Yes -Procedure Performed Yes -Type of Procedure Debridement -Clinical Debridement Subcutaneous -Post Debridement Size (cm) - Length 7.8 -Post Debridement Size (cm) - Width 9.8 -Post Debridement Size (cm) - Depth 0.2 -Total Square Cm 76.44 -Wound/Ulcer Outcome Not Healed -Ulcer Cleansing Rinsed/ Irrigated with Saline -Foul Odor after Cleansing No -Bioengineered Tissue Yes -Type of bioengineered Tissue THERASKIN -Expiration Date 09/23/22 -Product Lot Number [id number] -Percent Used 100 -Saline Lot Number [id number] -Bleeding Controlled with Pressure -Other 2nd theraskin: [id number] -Offloading No -Treatment Response Procedure Tolerated Well Pain Scale: 0-10 Numeric Is Patient Pain Free? Yes Wound debrided: Right abdominal ulcer Laterality: Right Type of Debridement: Excisional debridement Anesthesia Used: 4% Lidocaine Solution Depth: Down to and including healthy tissue, in the subcutaneous layer Percentage of wound debrided: 100 Instrument Used: 7mm curette Tissue Removed: Subcutaneous tissue and slough Severity: Limited To Skin Breakdown Amount of bleeding with debridement: Mild Bleeding Controlled with: Pressure Patient tolerated procedure well - Additional Wound Wound debrided: Right midabdominal ulcer-reopened this week Laterality: Right Type of Debridement: Excisional debridement Anesthesia Used: 4% Lidocaine Solution Depth: Down to and including healthy tissue Percentage of wound debrided: 100 Instrument Used: 3mm curette Tissue Removed: Subcutaneous tissue and slough Severity: Limited To Skin Breakdown Amount of bleeding with debridement: Mild Bleeding Controlled with: Pressure Patient tolerated procedure: Patient tolerated procedure well Assessment/Plan Active Problems (Last Reviewed 11/19/18 @ 10:25 by Angela Song) Erythema intertrigo (Chronic) abdominal wall skin crease intertrigo Panniculitis (Chronic) Skin ulcer of abdominal wall with fat layer exposed (Chronic) Obesity, Class III, BMI 40-49.9 (morbid obesity) (Chronic) Prediabetes (Chronic) Assessment: 1. Nonhealing ulcers right lateral abdominal wall and lower anterior abdominal wall in massive abdominal panniculus. 2. Massive abdominal panniculus with panniculitis. 3. Borderline diabetes. 4. Abdominal wall skin crease intertrigo. 5. Morbid obesity. 6. Incisional hernia. 7. s/p surgical preparation right lateral abdominal wall massive panniculus with excisional debridement skin and subcutaneous tissue for necrotizing soft tissue infection and panniculectomy (858 cm2). Plan: Dakin's dressing changes was stopped. The wound is looking much improved. Theraskin #4 application applied. Placed two theraskin, using 100% of the products. Secured with dermabond and steri strips. Covered with adaptic wound veil secured with steri strips. Patient tolerated the application well. The next surgery will take place in 6 months because of her blood pressure issues after the last surgery necessitating ICU admission and pressors and PRBC. She understands that multiple procedures will be necessary. Also the central portion would be excised last because of the presence of the hernia. At that time would need assistance from General Surgery for repair of the hernia. Her operative culture showed Staphylococcus simulans, Corynebacterium striatum, and Corynebacterium amycolatum, and Anaerobic cocci. She has been on Levaquin. Cleocin will be added for 10 days. Her Prealbumin from 09/22/18 was 12.0. Encourage nutritional supplementation with protein to help the healing process. She has been drinking Boost protein supplement. She is home from [place]. She is doing well. Her mother is doing her dressing changes and is doing a good job with them. She states she has lost over 100 lbs since her surgery and is feeling well. She states she is able to move easier. She is now home. Followup one week. Code Visit [id number]: 24003 Skin sub graft trnk/arm/leg Add On Codes: 26087 Skin sub graft t/a/l add-on - x3
[2019-01-31 11:38] VITALS: BP 136/93; PULSE 113; RESP 18; TEMP 36.9; BMI 78.4
--- NOTE | 2019-02-01 11:33 | PCM.WC.PN ---
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 Status: Chronic Code(s): L98.492 - Non-pressure chronic ulcer of skin of other sites with fat layer exposed (2) Erythema intertrigo Status: Chronic Code(s): L30.4 - Erythema intertrigo Comment: abdominal wall skin crease intertrigo (3) Panniculitis Status: Chronic Code(s): M79.3 - Panniculitis, unspecified (4) Obesity, Class III, BMI 40-49.9 (morbid obesity) Status: Chronic Code(s): E66.01 - Morbid (severe) obesity due to excess calories (5) Prediabetes Status: Chronic Code(s): R73.03 - Prediabetes Type of Wound Date of Service: 01/31/19 Chief Complaint: Nonhealing ulcers right lateral abdominal wall and lower anterior abdominal wall. History of Wound: Surgery 09/21/18 - Surgical preparation right lateral abdominal wall massive panniculus with excisional debridement skin and subcutaneous tissue for necrotizing soft tissue infection and panniculectomy (858 cm2). Mid abdmonal ulcer has reopened. Encouraged to continue to keep area dry to prevent maceration of the area and reopening of that ulcer. Wound care -Theraskin #5 applied today. Initially she had the VAC and had issues with it at the [facility]. Today denies any fever, chills or nausea. She states her appetite is good and she is supplementing with protein shakes. Operative culture - Staphylococcus simulans, Corynebacteriurm striatum, Corynebacterium amycolatum, and Anaerobic cocci. She was treated initially with Vancomycin and then was placed on Levaquin for the F. With the recent Anaerobic cocci, will add Cleocin. Prealbumin from 09/22/18 was 12.0. Encouraged nutritional supplementation with protein to help the healing process. Today she denies fever. Her appetite is ok. She is now home from the [facility]. Progress of Wound: Much improved. - Physical Exam Vital Signs Temp Pulse Resp BP 98.4 F 113 H 18 136/93 H 01/31/19 11:38 01/31/19 11:38 01/31/19 11:38 01/31/19 11:38 General: Alert, Oriented x3, Cooperative HEENT: Atraumatic Oral: Moist Mucosa Lungs: Normal air movement Cardiovascular: Regular rate Abdomen: Soft, Obese Extremities: Capillary Refill Less than 3 Seconds, Edema, Peripheral Pulses Normal Skin: Ulcer/ Wound - Right abdominal ulcer and mid abdominal ulcer Wound Measurements and Assessment WC - Nurse 1 - General Ulcer Measurement Start: 01/04/19 12:31 Freq: Status: Active Protocol: Activity Type Activity Date Activity User E-Sign Co-Sign Detail Recorded Client Recorded Date Recorded By Document 01/31/19 11:38 DV [id number] 01/31/19 11:48 DV 01/31/19 11:38 Wound Center Nurse 1 [Ulcer Assessment] #4 Mid Abd Fold -Combined with other wound No -Current Size (cm) - Length 0.5 -Current Size (cm) - Width 1.8 -Current Size (cm) - Depth 0.4 -Total Square Cm 0.90 -Photo Taken Yes -Tunneling No -Undermining/Tunneling No -Circular Undermining No -Exudate Amt Medium -Exudate Type Serosanguineous -Wound Margin Distinct, Outline Attached -Granulation Amt None Present (0 %) -Granulation Quality N/A -Slough/Fibrin No -Necrosis Amt Large (67-100%) -Necrotic Tissue Type Adherent Slough -Structure Exposed None/Limited to Skin Breakdown -Texture (Lyly-wound Skin Appearance) Assessed Scarring Rash -Moisture (Lyly-wound Skin Appearance Assessed ) Weeping -Color (Lyly-wound Skin Appearance) No Abnormality Assessed -Temperature (Lyly-wound Skin No Abnormality Appearance) (Pt Warm) -Tenderness on Palpation (Llyy-wound No Skin Appearance) -Ulcer Cleansing soap -Foul Odor after Cleansing No -Anesthetic Used 4% Lidocaine Solution #2 right pannus -Combined with other wound No -Current Size (cm) - Length 0.1 -Current Size (cm) - Width 0.1 -Current Size (cm) - Depth 0.1 -Total Square Cm 0.01 -Photo Taken No -Epithelialization Large 67-100% -Tunneling No -Undermining/Tunneling No -Circular Undermining No -Exudate Amt Medium -Exudate Type Serosanguineous -Wound Margin Indistinct, Non -Visible -Granulation Amt None Present (0 %) -Granulation Quality N/A -Slough/Fibrin No -Structure Exposed None/Limited to Skin Breakdown -Texture (Lyly-wound Skin Appearance) Assessed -Moisture (Lyly-wound Skin Appearance Assessed ) -Color (Lyly-wound Skin Appearance) Assessed -Temperature (Lyly-wound Skin No Abnormality Appearance) (Pt Warm) -Tenderness on Palpation (Lyly-wound No Skin Appearance) -Ulcer Cleansing soap -Anesthetic Used 4% Lidocaine Solution WC - Nurse 2 - General Ulcer CM Notes Start: 01/04/19 12:31 Freq: Status: Active Protocol: Activity Type Activity Date Activity User E-Sign Co-Sign Detail Recorded Client Recorded Date Recorded By Document 01/31/19 12:00 LOIS [id number] 01/31/19 16:02 LOIS 01/31/19 12:00 Wound Center Nurse 2 [Procedure/Treatment] #4 Mid Abd Fold -Time 15:58 -Correct Patient Yes -Correct Side, Site, Position Yes -Correct Procedure Yes -Procedure Performed Yes -Type of Procedure Debridement -Clinical Debridement Subcutaneous -Post Debridement Size (cm) - Length 0.6 -Post Debridement Size (cm) - Width 2.3 -Post Debridement Size (cm) - Depth 0.4 -Total Square Cm 1.38 -Wound/Ulcer Outcome Not Healed -Ulcer Cleansing Rinsed/ Irrigated with Saline -Foul Odor after Cleansing No -Bioengineered Tissue No -Bleeding Controlled with Pressure -Offloading No -Treatment Response Procedure Tolerated Well #2 right pannus -Time 15:58 -Correct Patient Yes -Correct Side, Site, Position Yes -Correct Procedure Yes -Procedure Performed Yes -Type of Procedure Debridement -Clinical Debridement Subcutaneous -Post Debridement Size (cm) - Length 6.4 -Post Debridement Size (cm) - Width 9.5 -Post Debridement Size (cm) - Depth 0.2 -Total Square Cm 60.80 -Wound/Ulcer Outcome Not Healed -Ulcer Cleansing Rinsed/ Irrigated with Saline -Foul Odor after Cleansing No -Bioengineered Tissue Yes -Type of bioengineered Tissue THERASKIN -Expiration Date 12/05/22 -Product Lot Number [id number] -Percent Used 100 -Saline Lot Number [id number] -Bleeding Controlled with Pressure -Other second theraskin applied: ID [id number] exp 12/04/2022 -Offloading No -Treatment Response Procedure Tolerated Well [See Physician Procedure note for Specifics] Pain Scale: 0-10 Numeric [Pain] -Is Patient Pain Free? Yes Musculoskeletal: No Tenderness to Palpation of Joints or Extremities Neurological: Neuro grossly intact Psych/Mental Status: Normal Affect, Appropriate Debridement Note Post-Debridement Measurements/Treatment WC - Nurse 2 - General Ulcer CM Notes Start: 01/04/19 12:31 Freq: Status: Active Protocol: Activity Type Activity Date Activity User E-Sign Co-Sign Detail Recorded Client Recorded Date Recorded By Document 01/04/19 12:58 [id number] 01/04/19 13:00 Document 01/10/19 09:22 [id number] 01/10/19 09:30 Document 01/18/19 13:20 [id number] 01/18/19 13:23 Document 01/24/19 09:43 [id number] 01/24/19 09:49 Document 01/31/19 12:00 [id number] 01/31/19 16:02 01/04/19 01/10/19 01/18/19 12:58 09:22 13:20 Wound Center Nurse 2 #4 Mid Abd Fold -Time -Correct Patient -Correct Side, Site, Position -Correct Procedure -Procedure Performed -Type of Procedure -Clinical Debridement -Post Debridement Size (cm) - Length -Post Debridement Size (cm) - Width -Post Debridement Size (cm) - Depth -Total Square Cm -Wound/Ulcer Outcome -Ulcer Cleansing -Foul Odor after Cleansing -Bioengineered Tissue -Bleeding Controlled with -Offloading -Treatment Response #3 Mid Abdominal Fold -Time 12:58 09:24 -Correct Patient Yes Yes No -Correct Side, Site, Position Yes Yes No -Correct Procedure Yes Yes No -Procedure Performed Yes Yes No -Type of Procedure Debridement Debridement -Clinical Debridement Subcutaneous Subcutaneous -Post Debridement Size (cm) - Length 0.6 0.5 0 -Post Debridement Size (cm) - Width 2.5 2.5 0 -Post Debridement Size (cm) - Depth 0.2 0.2 0 -Total Square Cm 1.50 1.25 0 -Wound/Ulcer Outcome Not Healed Not Healed Healed- Epithelialized -Ulcer Cleansing Rinsed/ Rinsed/ Irrigated with Irrigated with Saline Saline -Foul Odor after Cleansing No No -Bioengineered Tissue No No -Type of bioengineered Tissue THERASKIN -Bleeding Controlled with Pressure Pressure -Offloading No No -Treatment Response Procedure Procedure Tolerated Well Tolerated Well #2 right pannus -Time 12:59 09:24 13:21 -Correct Patient Yes Yes Yes -Correct Side, Site, Position Yes Yes Yes -Correct Procedure Yes Yes Yes -Procedure Performed Yes Yes Yes -Type of Procedure Debridement Debridement Debridement -Clinical Debridement Subcutaneous Subcutaneous Subcutaneous -Post Debridement Size (cm) - Length 9.4 8.7 8 -Post Debridement Size (cm) - Width 12.2 13.0 11 -Post Debridement Size (cm) - Depth 0.1 0.1 0.1 -Total Square Cm 114.68 113.10 88 -Wound/Ulcer Outcome Not Healed Not Healed Not Healed -Ulcer Cleansing Rinsed/ Rinsed/ Rinsed/ Irrigated with Irrigated with Irrigated with Saline Saline Saline -Foul Odor after Cleansing No No No -Bioengineered Tissue Yes Yes Yes -Type of bioengineered Tissue THERASKIN THERASKIN THERASKIN -Expiration Date 07/04/22 04/07/22 07/17/22 -Product Lot Number [id number] -Percent Used 100 100 100 -Saline Lot Number [id number] -Bleeding Controlled with Pressure Pressure Pressure -Other id:[id number] 2nd theraskin-- also used. 2nd graft id [id number] applied. exp: 2021 -Offloading No No No -Treatment Response Procedure Procedure Procedure Tolerated Well Tolerated Well Tolerated Well Pain Scale: 0-10 Numeric Is Patient Pain Free? Yes Yes Yes 01/24/19 01/31/19 09:43 12:00 Wound Center Nurse 2 #4 Mid Abd Fold -Time 09:43 15:58 -Correct Patient Yes Yes -Correct Side, Site, Position Yes Yes -Correct Procedure Yes Yes -Procedure Performed Yes Yes -Type of Procedure Debridement Debridement -Clinical Debridement Subcutaneous Subcutaneous -Post Debridement Size (cm) - Length 0.7 0.6 -Post Debridement Size (cm) - Width 2.3 2.3 -Post Debridement Size (cm) - Depth 0.3 0.4 -Total Square Cm 1.61 1.38 -Wound/Ulcer Outcome Not Healed Not Healed -Ulcer Cleansing Rinsed/ Rinsed/ Irrigated with Irrigated with Saline Saline -Foul Odor after Cleansing No No -Bioengineered Tissue No No -Bleeding Controlled with Pressure Pressure -Offloading No No -Treatment Response Procedure Procedure Tolerated Well Tolerated Well #3 Mid Abdominal Fold -Time -Correct Patient -Correct Side, Site, Position -Correct Procedure -Procedure Performed -Type of Procedure -Clinical Debridement -Post Debridement Size (cm) - Length -Post Debridement Size (cm) - Width -Post Debridement Size (cm) - Depth -Total Square Cm -Wound/Ulcer Outcome -Ulcer Cleansing -Foul Odor after Cleansing -Bioengineered Tissue -Type of bioengineered Tissue -Bleeding Controlled with -Offloading -Treatment Response #2 right pannus -Time 09:44 15:58 -Correct Patient Yes Yes -Correct Side, Site, Position Yes Yes -Correct Procedure Yes Yes -Procedure Performed Yes Yes -Type of Procedure Debridement Debridement -Clinical Debridement Subcutaneous Subcutaneous -Post Debridement Size (cm) - Length 7.8 6.4 -Post Debridement Size (cm) - Width 9.8 9.5 -Post Debridement Size (cm) - Depth 0.2 0.2 -Total Square Cm 76.44 60.80 -Wound/Ulcer Outcome Not Healed Not Healed -Ulcer Cleansing Rinsed/ Rinsed/ Irrigated with Irrigated with Saline Saline -Foul Odor after Cleansing No No -Bioengineered Tissue Yes Yes -Type of bioengineered Tissue THERASKIN THERASKIN -Expiration Date 09/23/22 12/05/22 -Product Lot Number [id number] -Percent Used 100 100 -Saline Lot Number [id number] -Bleeding Controlled with Pressure Pressure -Other 2nd theraskin: second [id number] theraskin applied: ID [id number] exp 12/04/2022 -Offloading No No -Treatment Response Procedure Procedure Tolerated Well Tolerated Well Pain Scale: 0-10 Numeric Is Patient Pain Free? Yes Yes Wound debrided: Right abdominal ulcer Laterality: Right Type of Debridement: Excisional debridement Anesthesia Used: 4% Lidocaine Solution Depth: Down to and including healthy tissue, in the subcutaneous layer Percentage of wound debrided: 100 Instrument Used: 7mm curette Tissue Removed: Subcutaneous tissue and slough Severity: Limited To Skin Breakdown Amount of bleeding with debridement: Mild Bleeding Controlled with: Pressure Patient tolerated procedure well - Additional Wound Wound debrided: midabdominal ulcer Type of Debridement: Excisional debridement Anesthesia Used: 4% Lidocaine Solution Depth: Down to and including healthy tissue, in the subcutaneous layer Percentage of wound debrided: 100 Instrument Used: 7mm curette Tissue Removed: Subcutaneous tissue and slough Severity: Limited To Skin Breakdown Amount of bleeding with debridement: Mild Bleeding Controlled with: Pressure Patient tolerated procedure: Patient tolerated procedure well Assessment/Plan Assessment: 1. Nonhealing ulcers right lateral abdominal wall and lower anterior abdominal wall in massive abdominal panniculus. 2. Massive abdominal panniculus with panniculitis. 3. Borderline diabetes. 4. Abdominal wall skin crease intertrigo. 5. Morbid obesity. 6. Incisional hernia. 7. s/p surgical preparation right lateral abdominal wall massive panniculus with excisional debridement skin and subcutaneous tissue for necrotizing soft tissue infection and panniculectomy (858 cm2). Plan: Dakin's dressing changes was stopped. The right abdominal ulcer is looking much improved. Theraskin #5 application applied. Placed two theraskin, using 100% of the products. Secured with dermabond and steri strips. Covered with adaptic wound veil secured with steri strips. Patient tolerated the application well. Mid abdominal ulcer has re opened. Will continue aquacel silver to this area and encouraged her to keep the area dry (it is in a skin fold which will be very difficult to keep dry and healed). The next surgery will take place in 6 months because of her blood pressure issues after the last surgery necessitating ICU admission and pressors and PRBC. She understands that multiple procedures will be necessary. Also the central portion would be excised last because of the presence of the hernia. At that time would need assistance from General Surgery for repair of the hernia. Her operative culture showed Staphylococcus simulans, Corynebacterium striatum, and Corynebacterium amycolatum, and Anaerobic cocci. She has been on Levaquin. Cleocin will be added for 10 days. Her Prealbumin from 09/22/18 was 12.0. Encourage nutritional supplementation with protein to help the healing process. She has been drinking Boost protein supplement. She is home from [place]. She is doing well. Her mother is doing her dressing changes and is doing a good job with them. She states she has lost over 100 lbs since her surgery and is feeling well. She states she is able to move easier. She is now home. Followup one week. Dr. Hendricks was able to stop in to see and discussed with patient what the next step would be surgically. Patient states that she continues to have the most discomfort and weight from her right pannus. He will plan on further surgical intervention in March or April after she has more time to heal. Code Visit [id number]: [id number] Skin sub graft trnk/arm/leg Add On Codes: 17386 Skin sub graft t/a/l add-on - x2
--- NOTE | 2019-02-01 11:37 | PN.PCM_ITS ---
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 Status: Chronic Code(s): L98.492 - Non-pressure chronic ulcer of skin of other sites with fat layer exposed (2) Erythema intertrigo Status: Chronic Code(s): L30.4 - Erythema intertrigo Comment: abdominal wall skin crease intertrigo (3) Panniculitis Status: Chronic Code(s): M79.3 - Panniculitis, unspecified (4) Obesity, Class III, BMI 40-49.9 (morbid obesity) Status: Chronic Code(s): E66.01 - Morbid (severe) obesity due to excess calories (5) Prediabetes Status: Chronic Code(s): R73.03 - Prediabetes Type of Wound Date of Service: 01/31/19 Chief Complaint: Nonhealing ulcers right lateral abdominal wall and lower anterior abdominal wall. History of Wound: Surgery 09/21/18 - Surgical preparation right lateral abdominal wall massive panniculus with excisional debridement skin and subcutaneous tissue for necrotizing soft tissue infection and panniculectomy (858 cm2). Mid abdmonal ulcer has reopened. Encouraged to continue to keep area dry to prevent maceration of the area and reopening of that ulcer. Wound care - Theraskin #5 applied today. Initially she had the VAC and had issues with it at the [facility]. Today denies any fever, chills or nausea. She states her appetite is good and she is supplementing with protein shakes. Operative culture - Staphylococcus simulans, Corynebacteriurm striatum, Corynebacterium amycolatum, and Anaerobic cocci. She was treated initially with Vancomycin and then was placed on Levaquin for the F. With the recent Anaerobic cocci, will add Cleocin. Prealbumin from 09/22/18 was 12.0. Encouraged nutritional supplementation with protein to help the healing process. Today she denies fever. Her appetite is ok. She is now home from the [facility]. Progress of Wound: Much improved. - Physical Exam Vital Signs Temp Pulse Resp BP 98.4 F 113 H 18 136/93 H 01/31/19 11:38 01/31/19 11:38 01/31/19 11:38 01/31/19 11:38 General: Alert, Oriented x3, Cooperative HEENT: Atraumatic Oral: Moist Mucosa Lungs: Normal air movement Cardiovascular: Regular rate Abdomen: Soft, Obese Extremities: Capillary Refill Less than 3 Seconds, Edema, Peripheral Pulses Normal Skin: Ulcer/ Wound - Right abdominal ulcer and mid abdominal ulcer Wound Measurements and Assessment WC - Nurse 1 - General Ulcer Measurement Start: 01/04/19 12:31 Freq: Status: Active Protocol: Activity Type Activity Date Activity User E-Sign Co-Sign Detail Recorded Client Recorded Date Recorded By Document 01/31/19 11:38 DV [id number] 01/31/19 11:48 DV 01/31/19 11:38 Wound Center Nurse 1 [Ulcer Assessment] #4 Mid Abd Fold -Combined with other wound No -Current Size (cm) - Length 0.5 -Current Size (cm) - Width 1.8 -Current Size (cm) - Depth 0.4 -Total Square Cm 0.90 -Photo Taken Yes -Tunneling No -Undermining/Tunneling No -Circular Undermining No -Exudate Amt Medium -Exudate Type Serosanguineous -Wound Margin Distinct, Outline Attached -Granulation Amt None Present (0 %) -Granulation Quality N/A -Slough/Fibrin No -Necrosis Amt Large (67-100%) -Necrotic Tissue Type Adherent Slough -Structure Exposed None/Limited to Skin Breakdown -Texture (Lyly-wound Skin Appearance) Assessed Scarring Rash -Moisture (Lyly-wound Skin Appearance Assessed ) Weeping -Color (Lyly-wound Skin Appearance) No Abnormality Assessed -Temperature (Lyly-wound Skin No Abnormality Appearance) (Pt Warm) -Tenderness on Palpation (Lyly-wound No Skin Appearance) -Ulcer Cleansing soap -Foul Odor after Cleansing No -Anesthetic Used 4% Lidocaine Solution #2 right pannus -Combined with other wound No -Current Size (cm) - Length 0.1 -Current Size (cm) - Width 0.1 -Current Size (cm) - Depth 0.1 -Total Square Cm 0.01 -Photo Taken No -Epithelialization Large 67-100% -Tunneling No -Undermining/Tunneling No -Circular Undermining No -Exudate Amt Medium -Exudate Type Serosanguineous -Wound Margin Indistinct, Non -Visible -Granulation Amt None Present (0 %) -Granulation Quality N/A -Slough/Fibrin No -Structure Exposed None/Limited to Skin Breakdown -Texture (Lyly-wound Skin Appearance) Assessed -Moisture (Lyly-wound Skin Appearance Assessed ) -Color (Lyly-wound Skin Appearance) Assessed -Temperature (Lyly-wound Skin No Abnormality Appearance) (Pt Warm) -Tenderness on Palpation (Lyly-wound No Skin Appearance) -Ulcer Cleansing soap -Anesthetic Used 4% Lidocaine Solution WC - Nurse 2 - General Ulcer CM Notes Start: 01/04/19 12:31 Freq: Status: Active Protocol: Activity Type Activity Date Activity User E-Sign Co-Sign Detail Recorded Client Recorded Date Recorded By Document 01/31/19 12:00 LOIS [id number] 01/31/19 16:02 LOIS 01/31/19 12:00 Wound Center Nurse 2 [Procedure/Treatment] #4 Mid Abd Fold -Time 15:58 -Correct Patient Yes -Correct Side, Site, Position Yes -Correct Procedure Yes -Procedure Performed Yes -Type of Procedure Debridement -Clinical Debridement Subcutaneous -Post Debridement Size (cm) - Length 0.6 -Post Debridement Size (cm) - Width 2.3 -Post Debridement Size (cm) - Depth 0.4 -Total Square Cm 1.38 -Wound/Ulcer Outcome Not Healed -Ulcer Cleansing Rinsed/ Irrigated with Saline -Foul Odor after Cleansing No -Bioengineered Tissue No -Bleeding Controlled with Pressure -Offloading No -Treatment Response Procedure Tolerated Well #2 right pannus -Time 15:58 -Correct Patient Yes -Correct Side, Site, Position Yes -Correct Procedure Yes -Procedure Performed Yes -Type of Procedure Debridement -Clinical Debridement Subcutaneous -Post Debridement Size (cm) - Length 6.4 -Post Debridement Size (cm) - Width 9.5 -Post Debridement Size (cm) - Depth 0.2 -Total Square Cm 60.80 -Wound/Ulcer Outcome Not Healed -Ulcer Cleansing Rinsed/ Irrigated with Saline -Foul Odor after Cleansing No -Bioengineered Tissue Yes -Type of bioengineered Tissue THERASKIN -Expiration Date 12/05/22 -Product Lot Number [id number] -Percent Used 100 -Saline Lot Number [id number] -Bleeding Controlled with Pressure -Other second theraskin applied: ID [id number] exp 12/04/2022 -Offloading No -Treatment Response Procedure Tolerated Well [See Physician Procedure note for Specifics] Pain Scale: 0-10 Numeric [Pain] -Is Patient Pain Free? Yes Musculoskeletal: No Tenderness to Palpation of Joints or Extremities Neurological: Neuro grossly intact Psych/Mental Status: Normal Affect, Appropriate Debridement Note Post-Debridement Measurements/Treatment WC - Nurse 2 - General Ulcer CM Notes Start: 01/04/19 12:31 Freq: Status: Active Protocol: Activity Type Activity Date Activity User E-Sign Co-Sign Detail Recorded Client Recorded Date Recorded By Document 01/04/19 12:58 [id number] 01/04/19 13:00 Document 01/10/19 09:22 [id number] 01/10/19 09:30 Document 01/18/19 13:20 [id number] 01/18/19 13:23 Document 01/24/19 09:43 [id number] 01/24/19 09:49 Document 01/31/19 12:00 [id number] 01/31/19 16:02 01/04/19 01/10/19 01/18/19 12:58 09:22 13:20 Wound Center Nurse 2 #4 Mid Abd Fold -Time -Correct Patient -Correct Side, Site, Position -Correct Procedure -Procedure Performed -Type of Procedure -Clinical Debridement -Post Debridement Size (cm) - Length -Post Debridement Size (cm) - Width -Post Debridement Size (cm) - Depth -Total Square Cm -Wound/Ulcer Outcome -Ulcer Cleansing -Foul Odor after Cleansing -Bioengineered Tissue -Bleeding Controlled with -Offloading -Treatment Response #3 Mid Abdominal Fold -Time 12:58 09:24 -Correct Patient Yes Yes No -Correct Side, Site, Position Yes Yes No -Correct Procedure Yes Yes No -Procedure Performed Yes Yes No -Type of Procedure Debridement Debridement -Clinical Debridement Subcutaneous Subcutaneous -Post Debridement Size (cm) - Length 0.6 0.5 0 -Post Debridement Size (cm) - Width 2.5 2.5 0 -Post Debridement Size (cm) - Depth 0.2 0.2 0 -Total Square Cm 1.50 1.25 0 -Wound/Ulcer Outcome Not Healed Not Healed Healed- Epithelialized -Ulcer Cleansing Rinsed/ Rinsed/ Irrigated with Irrigated with Saline Saline -Foul Odor after Cleansing No No -Bioengineered Tissue No No -Type of bioengineered Tissue THERASKIN -Bleeding Controlled with Pressure Pressure -Offloading No No -Treatment Response Procedure Procedure Tolerated Well Tolerated Well #2 right pannus -Time 12:59 09:24 13:21 -Correct Patient Yes Yes Yes -Correct Side, Site, Position Yes Yes Yes -Correct Procedure Yes Yes Yes -Procedure Performed Yes Yes Yes -Type of Procedure Debridement Debridement Debridement -Clinical Debridement Subcutaneous Subcutaneous Subcutaneous -Post Debridement Size (cm) - Length 9.4 8.7 8 -Post Debridement Size (cm) - Width 12.2 13.0 11 -Post Debridement Size (cm) - Depth 0.1 0.1 0.1 -Total Square Cm 114.68 113.10 88 -Wound/Ulcer Outcome Not Healed Not Healed Not Healed -Ulcer Cleansing Rinsed/ Rinsed/ Rinsed/ Irrigated with Irrigated with Irrigated with Saline Saline Saline -Foul Odor after Cleansing No No No -Bioengineered Tissue Yes Yes Yes -Type of bioengineered Tissue THERASKIN THERASKIN THERASKIN -Expiration Date 07/04/22 04/07/22 07/17/22 -Product Lot Number [id number] -Percent Used 100 100 100 -Saline Lot Number [id number] -Bleeding Controlled with Pressure Pressure Pressure -Other id:[id number]- 2nd theraskin-- also used. 2nd graft id [id number] applied. exp: 2021 -Offloading No No No -Treatment Response Procedure Procedure Procedure Tolerated Well Tolerated Well Tolerated Well Pain Scale: 0-10 Numeric Is Patient Pain Free? Yes Yes Yes 01/24/19 01/31/19 09:43 12:00 Wound Center Nurse 2 #4 Mid Abd Fold -Time 09:43 15:58 -Correct Patient Yes Yes -Correct Side, Site, Position Yes Yes -Correct Procedure Yes Yes -Procedure Performed Yes Yes -Type of Procedure Debridement Debridement -Clinical Debridement Subcutaneous Subcutaneous -Post Debridement Size (cm) - Length 0.7 0.6 -Post Debridement Size (cm) - Width 2.3 2.3 -Post Debridement Size (cm) - Depth 0.3 0.4 -Total Square Cm 1.61 1.38 -Wound/Ulcer Outcome Not Healed Not Healed -Ulcer Cleansing Rinsed/ Rinsed/ Irrigated with Irrigated with Saline Saline -Foul Odor after Cleansing No No -Bioengineered Tissue No No -Bleeding Controlled with Pressure Pressure -Offloading No No -Treatment Response Procedure Procedure Tolerated Well Tolerated Well #3 Mid Abdominal Fold -Time -Correct Patient -Correct Side, Site, Position -Correct Procedure -Procedure Performed -Type of Procedure -Clinical Debridement -Post Debridement Size (cm) - Length -Post Debridement Size (cm) - Width -Post Debridement Size (cm) - Depth -Total Square Cm -Wound/Ulcer Outcome -Ulcer Cleansing -Foul Odor after Cleansing -Bioengineered Tissue -Type of bioengineered Tissue -Bleeding Controlled with -Offloading -Treatment Response #2 right pannus -Time 09:44 15:58 -Correct Patient Yes Yes -Correct Side, Site, Position Yes Yes -Correct Procedure Yes Yes -Procedure Performed Yes Yes -Type of Procedure Debridement Debridement -Clinical Debridement Subcutaneous Subcutaneous -Post Debridement Size (cm) - Length 7.8 6.4 -Post Debridement Size (cm) - Width 9.8 9.5 -Post Debridement Size (cm) - Depth 0.2 0.2 -Total Square Cm 76.44 60.80 -Wound/Ulcer Outcome Not Healed Not Healed -Ulcer Cleansing Rinsed/ Rinsed/ Irrigated with Irrigated with Saline Saline -Foul Odor after Cleansing No No -Bioengineered Tissue Yes Yes -Type of bioengineered Tissue THERASKIN THERASKIN -Expiration Date 09/23/22 12/05/22 -Product Lot Number [id number] -Percent Used 100 100 -Saline Lot Number [id number] -Bleeding Controlled with Pressure Pressure -Other 2nd theraskin: second [id number] theraskin applied: ID [id number] exp 12/04/2022 -Offloading No No -Treatment Response Procedure Procedure Tolerated Well Tolerated Well Pain Scale: 0-10 Numeric Is Patient Pain Free? Yes Yes Wound debrided: Right abdominal ulcer Laterality: Right Type of Debridement: Excisional debridement Anesthesia Used: 4% Lidocaine Solution Depth: Down to and including healthy tissue, in the subcutaneous layer Percentage of wound debrided: 100 Instrument Used: 7mm curette Tissue Removed: Subcutaneous tissue and slough Severity: Limited To Skin Breakdown Amount of bleeding with debridement: Mild Bleeding Controlled with: Pressure Patient tolerated procedure well - Additional Wound Wound debrided: midabdominal ulcer Type of Debridement: Excisional debridement Anesthesia Used: 4% Lidocaine Solution Depth: Down to and including healthy tissue, in the subcutaneous layer Percentage of wound debrided: 100 Instrument Used: 7mm curette Tissue Removed: Subcutaneous tissue and slough Severity: Limited To Skin Breakdown Amount of bleeding with debridement: Mild Bleeding Controlled with: Pressure Patient tolerated procedure: Patient tolerated procedure well Assessment/Plan Assessment: 1. Nonhealing ulcers right lateral abdominal wall and lower anterior abdominal wall in massive abdominal panniculus. 2. Massive abdominal panniculus with panniculitis. 3. Borderline diabetes. 4. Abdominal wall skin crease intertrigo. 5. Morbid obesity. 6. Incisional hernia. 7. s/p surgical preparation right lateral abdominal wall massive panniculus with excisional debridement skin and subcutaneous tissue for necrotizing soft tissue infection and panniculectomy (858 cm2). Plan: Dakin's dressing changes was stopped. The right abdominal ulcer is looking much improved. Theraskin #5 application applied. Placed two theraskin, using 100% of the products. Secured with dermabond and steri strips. Covered with a daptic wound veil secured with steri strips. Patient tolerated the application well. Mid abdominal ulcer has re opened. Will continue aquacel silver to this area and encouraged her to keep the area dry (it is in a skin fold which will be very difficult to keep dry and healed). The next surgery will take place in 6 months because of her blood pressure issues after the last surgery necessitating ICU admission and pressors and PRBC. She understands that multiple procedures will be necessary. Also the central portion would be excised last because of the presence of the hernia. At that time would need assistance from General Surgery for repair of the hernia. Her operative culture showed Staphylococcus simulans, Corynebacterium striatum, and Corynebacterium amycolatum, and Anaerobic cocci. She has been on Levaquin. Cleocin will be added for 10 days. Her Prealbumin from 09/22/18 was 12.0. Encourage nutritional supplementation with protein to help the healing process. She has been drinking Boost protein supplement. She is home from [place]. She is doing well. Her mother is doing her dressing changes and is doing a good job with them. She states she has lost over 100 lbs since her surgery and is feeling well. She states she is able to move easier. She is now home. Followup one week. Dr. Hendricks was able to stop in to see and discussed with patient what the next step would be surgically. Patient states that she continues to have the most discomfort and weight from her right pannus. He will plan on further surgical intervention in March or April after she has more time to heal. Code Visit [id number]: [id number] Skin sub graft trnk/arm/leg Add On Codes: 68702 Skin sub graft t/a/l add-on - x2
== END 2019-02-01 23:59 ==
LOC: WC 11:15
PROVIDERS: Family Provider Student in an Organized Health Care Education/Training Program; PCP Student in an Organized Health Care Education/Training Program; Visit Provider Nurse Practitioner Family
DX: L98.492 Non-pressure chronic ulcer of skin of other sites with fat layer exposed (principal); E65 Localized adiposity; E66.01 Morbid (severe) obesity due to excess calories; Z71.3 Dietary counseling and surveillance; L30.4 Erythema intertrigo; R73.03 Prediabetes
CPT/HCPCS: 11042; 15271; 15272; Q4121

== ENCOUNTER 2019-03-01 12:30 | Outpatient (RCR) | payer MEDICAID, SELFPAY ==
[2019-02-02 01:15] VITALS: BP 136/93; PULSE 113; RESP 18; TEMP 36.9
[2019-02-07 09:54] VITALS: BP 141/97; PULSE 88; RESP 18; TEMP 36.4; BMI 78.4
--- NOTE | 2019-02-07 16:31 | PN.PCM_ITS ---
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 Status: Chronic Code(s): L98.492 - Non-pressure chronic ulcer of skin of other sites with fat layer exposed (2) Erythema intertrigo Status: Chronic Code(s): L30.4 - Erythema intertrigo Comment: abdominal wall skin crease intertrigo (3) Panniculitis Status: Chronic Code(s): M79.3 - Panniculitis, unspecified (4) Abdominal panniculus, symptomatic Status: Chronic Code(s): E65 - Localized adiposity (5) Obesity, Class III, BMI 40-49.9 (morbid obesity) Status: Chronic Code(s): E66.01 - Morbid (severe) obesity due to excess calories Type of Wound Date of Service: 02/07/19 Chief Complaint: Nonhealing ulcers right lateral abdominal wall and lower anterior abdominal wall. History of Wound: Surgery 09/21/18 - Surgical preparation right lateral abdominal wall massive panniculus with excisional debridement skin and subcutaneous tissue for necrotizing soft tissue infection and panniculectomy (858 cm2). Mid abdmonal ulcer has reopened. Encouraged to continue to keep area dry to prevent maceration of the area and reopening of that ulcer. Wound care - Theraskin #6 applied today. Initially she had the VAC and had issues with it at the [facility]. Today denies any fever, chills or nausea. She states her appetite is good and she is supplementing with protein shakes. Operative culture - Staphylococcus simulans, Corynebacteriurm striatum, Corynebacterium amycolatum, and Anaerobic cocci. She was treated initially with Vancomycin and then was placed on Levaquin for the F. With the recent Anaerobic cocci, will add Cleocin. Prealbumin from 09/22/18 was 12.0. Encouraged nutritional supplementation with protein to help the healing process. Today she denies fever. Her appetite is ok. She is now home from the [facility]. Progress of Wound: Much improved. - Physical Exam Vital Signs Temp Pulse Resp BP 97.5 F L 88 18 141/97 H 02/07/19 09:54 02/07/19 09:54 02/07/19 09:54 02/07/19 09:54 General: Alert, Oriented x3, Cooperative HEENT: Atraumatic Oral: Moist Mucosa Lungs: Normal air movement Cardiovascular: Regular rate Abdomen: Obese Extremities: Capillary Refill Less than 3 Seconds Skin: Ulcer/ Wound - Right abdominal and mid abdominal ulcer Wound Measurements and Assessment WC - Nurse 1 - General Ulcer Measurement Start: 02/07/19 09:50 Freq: Status: Active Protocol: Activity Type Activity Date Activity User E-Sign Co-Sign Detail Recorded Client Recorded Date Recorded By Document 02/07/19 09:54 AN [id number] 02/07/19 10:07 AN 02/07/19 09:54 Wound Center Nurse 1 [Ulcer Assessment] #4 Mid Abd Fold -Current Size (cm) - Length 0.2 -Current Size (cm) - Width 0.5 -Current Size (cm) - Depth 0.1 -Total Square Cm 0.10 -Exudate Amt Small -Exudate Type Serosanguineous -Wound Margin Distinct, Outline Attached -Granulation Amt Large (67-100%) -Granulation Quality Red -Slough/Fibrin Yes -Necrosis Amt Small (1-33%) -Necrotic Tissue Type Adherent Slough -Structure Exposed None/Limited to Skin Breakdown -Texture (Lyly-wound Skin Appearance) Assessed -Moisture (Lyly-wound Skin Appearance Assessed ) Maceration -Color (Lyly-wound Skin Appearance) Assessed -Temperature (Lyly-wound Skin No Abnormality Appearance) (Pt Warm) -Tenderness on Palpation (Lyly-wound No Skin Appearance) -Ulcer Cleansing Rinsed/ Irrigated with Saline -Foul Odor after Cleansing No -Anesthetic Used 4% Lidocaine Solution #2 right pannus -Current Size (cm) - Length 7.0 -Current Size (cm) - Width 9.0 -Current Size (cm) - Depth 0.1 -Total Square Cm 63.00 -Classification - Thickness Full Thickness without Exposed Support Structure -Exudate Amt Medium -Exudate Type Serosanguineous -Wound Margin Distinct, Outline Attached -Granulation Amt Large (67-100%) -Granulation Quality Red -Necrosis Amt Small (1-33%) -Necrotic Tissue Type Adherent Slough -Structure Exposed None/Limited to Skin Breakdown -Texture (Lyly-wound Skin Appearance) Assessed -Moisture (Lyly-wound Skin Appearance Assessed ) Maceration -Color (Lyly-wound Skin Appearance) Assessed -Temperature (Lyly-wound Skin No Abnormality Appearance) (Pt Warm) -Tenderness on Palpation (Lyly-wound No Skin Appearance) -Ulcer Cleansing Rinsed/ Irrigated with Saline -Foul Odor after Cleansing Yes, Due to Product Use -Anesthetic Used 4% Lidocaine Solution IRAIS - Nurse 2 - General Ulcer CM Notes Start: 02/07/19 09:50 Freq: Status: Active Protocol: Activity Type Activity Date Activity User E-Sign Co-Sign Detail Recorded Client Recorded Date Recorded By Document 02/07/19 11:22 LOIS [id number] 02/07/19 11:25 LOIS 02/07/19 11:22 Wound Center Nurse 2 [Procedure/Treatment] #4 Mid Abd Fold -Time 11:22 -Correct Patient Yes -Correct Side, Site, Position Yes -Correct Procedure Yes -Procedure Performed Yes -Type of Procedure Debridement -Clinical Debridement Subcutaneous -Post Debridement Size (cm) - Length 0.3 -Post Debridement Size (cm) - Width 1.0 -Post Debridement Size (cm) - Depth 0.3 -Total Square Cm 0.30 -Wound/Ulcer Outcome Not Healed -Ulcer Cleansing Rinsed/ Irrigated with Saline -Foul Odor after Cleansing No -Bioengineered Tissue No -Bleeding Controlled with Pressure -Offloading No -Treatment Response Procedure Tolerated Well #2 right pannus -Time 11:23 -Correct Patient Yes -Correct Side, Site, Position Yes -Correct Procedure Yes -Procedure Performed Yes -Type of Procedure Debridement -Clinical Debridement Subcutaneous -Post Debridement Size (cm) - Length 6.3 -Post Debridement Size (cm) - Width 9 -Post Debridement Size (cm) - Depth 0.2 -Total Square Cm 56.7 -Wound/Ulcer Outcome Not Healed -Ulcer Cleansing Rinsed/ Irrigated with Saline -Foul Odor after Cleansing No -Bioengineered Tissue Yes -Type of bioengineered Tissue THERASKIN -Expiration Date 01/25/23 -Product Lot Number [id number] -Percent Used 100 -Saline Lot Number [id number] -Bleeding Controlled with Pressure -Other 2nd-theraskin ID [id number] exp 03/30/2022 -Offloading No -Treatment Response Procedure Tolerated Well [See Physician Procedure note for Specifics] Pain Scale: 0-10 Numeric [Pain] -Is Patient Pain Free? Yes Neurological: Neuro grossly intact Psych/Mental Status: Normal Affect, Appropriate Debridement Note Post-Debridement Measurements/Treatment IRAIS - Nurse 2 - General Ulcer CM Notes Start: 02/07/19 09:50 Freq: Status: Active Protocol: Activity Type Activity Date Activity User E-Sign Co-Sign Detail Recorded Client Recorded Date Recorded By Document 02/07/19 11:22 LOIS [id number] 02/07/19 11:25 LOIS 02/07/19 11:22 Wound Center Nurse 2 #4 Mid Abd Fold -Time 11:22 -Correct Patient Yes -Correct Side, Site, Position Yes -Correct Procedure Yes -Procedure Performed Yes -Type of Procedure Debridement -Clinical Debridement Subcutaneous -Post Debridement Size (cm) - Length 0.3 -Post Debridement Size (cm) - Width 1.0 -Post Debridement Size (cm) - Depth 0.3 -Total Square Cm 0.30 -Wound/Ulcer Outcome Not Healed -Ulcer Cleansing Rinsed/ Irrigated with Saline -Foul Odor after Cleansing No -Bioengineered Tissue No -Bleeding Controlled with Pressure -Offloading No -Treatment Response Procedure Tolerated Well #2 right pannus -Time 11:23 -Correct Patient Yes -Correct Side, Site, Position Yes -Correct Procedure Yes -Procedure Performed Yes -Type of Procedure Debridement -Clinical Debridement Subcutaneous -Post Debridement Size (cm) - Length 6.3 -Post Debridement Size (cm) - Width 9 -Post Debridement Size (cm) - Depth 0.2 -Total Square Cm 56.7 -Wound/Ulcer Outcome Not Healed -Ulcer Cleansing Rinsed/ Irrigated with Saline -Foul Odor after Cleansing No -Bioengineered Tissue Yes -Type of bioengineered Tissue THERASKIN -Expiration Date 01/25/23 -Product Lot Number [id number] -Percent Used 100 -Saline Lot Number [id number] -Bleeding Controlled with Pressure -Other 2nd-theraskin ID [id number] exp 03/30/2022 -Offloading No -Treatment Response Procedure Tolerated Well Pain Scale: 0-10 Numeric Is Patient Pain Free? Yes Wound debrided: Right abdominal ulcer Laterality: Right Type of Debridement: Excisional debridement Anesthesia Used: 4% Lidocaine Solution Depth: Down to and including healthy tissue, in the subcutaneous layer Percentage of wound debrided: 100 Instrument Used: 7mm curette Tissue Removed: Subcutaneous tissue and slough Severity: Fat Layer Exposed Amount of bleeding with debridement: Mild Bleeding Controlled with: Compression and gauze Patient tolerated procedure well - Additional Wound Wound debrided: mid abdominal ulcer Type of Debridement: Excisional debridement Anesthesia Used: 4% Lidocaine Solution Depth: Down to and including healthy tissue, in the subcutaneous layer Percentage of wound debrided: 100 Instrument Used: #10 blade Tissue Removed: Subcutaneous tissue and slough Severity: Fat Layer Exposed Amount of bleeding with debridement: Mild Bleeding Controlled with: Pressure Patient tolerated procedure: Patient tolerated procedure well Assessment/Plan Assessment: 1. Nonhealing ulcers right lateral abdominal wall and lower anterior abdominal wall in massive abdominal panniculus. 2. Massive abdominal panniculus with panniculitis. 3. Borderline diabetes. 4. Abdominal wall skin crease intertrigo. 5. Morbid obesity. 6. Incisional hernia. 7. s/p surgical preparation right lateral abdominal wall massive panniculus with excisional debridement skin and subcutaneous tissue for necrotizing soft tissue infection and panniculectomy (858 cm2). Plan: Dakin's dressing changes was stopped. The right abdominal ulcer is looking much improved. Theraskin #6 application applied. Placed two theraskin, using 100% of the products. Secured with dermabond and steri strips. Covered with adaptic wound veil secured with steri strips. Patient tolerated the application well. Mid abdominal ulcer has re opened. Will continue aquacel silver to this area and encouraged her to keep the area dry (it is in a skin fold which will be very difficult to keep dry and healed). The next surgery will take place in 6 months because of her blood pressure issues after the last surgery necessitating ICU admission and pressors and PRBC. She understands that multiple procedures will be necessary. Also the central portion would be excised last because of the presence of the hernia. At that time would need assistance from General Surgery for repair of the hernia. Her operative culture showed Staphylococcus simulans, Corynebacterium striatum, and Corynebacterium amycolatum, and Anaerobic cocci. She has been on Levaquin. Cleocin will be added for 10 days. Her Prealbumin from 09/22/18 was 12.0. Encourage nutritional supplementation with protein to help the healing process. She has been drinking Boost protein supplement. She is home from [place]. She is doing well. Her mother is doing her dressing changes and is doing a good job with them. She states she has lost over 100 lbs since her surgery and is feeling well. She states she is able to move easier. She is now home. Followup one week. Code Visit 150xxx-152xx: 23381 Skin sub graft trnk/arm/leg Add On Codes: 44881 Skin sub graft t/a/l add-on - x2
[2019-02-14 11:55] VITALS: BP 154/95; PULSE 123; RESP 18; TEMP 36.4; BMI 78.4
--- NOTE | 2019-02-14 16:53 | PN.PCM_ITS ---
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 Status: Chronic Current Visit: Yes Code(s): L98.492 - Non-pressure chronic ulcer of skin of other sites with fat layer exposed (2) Erythema intertrigo Status: Chronic Current Visit: Yes Code(s): L30.4 - Erythema intertrigo Comment: abdominal wall skin crease intertrigo (3) Panniculitis Status: Chronic Current Visit: Yes Code(s): M79.3 - Panniculitis, unspecified (4) Abdominal panniculus, symptomatic Status: Chronic Current Visit: Yes Code(s): E65 - Localized adiposity (5) Obesity, Class III, BMI 40-49.9 (morbid obesity) Status: Chronic Current Visit: No Code(s): E66.01 - Morbid (severe) obesity due to excess calories Type of Wound Date of Service: 02/14/19 Chief Complaint: Nonhealing ulcers right lateral abdominal wall and lower anterior abdominal wall. History of Wound: Surgery 09/21/18 - Surgical preparation right lateral abdominal wall massive panniculus with excisional debridement skin and subcutaneous tissue for necrotizing soft tissue infection and panniculectomy (858 cm2). Mid abdmonal ulcer has reopened. Encouraged to continue to keep area dry to prevent maceration of the area and reopening of that ulcer. Wound care - Svetlanain #7 applied today. Initially she had the VAC and had issues with it at the [facility]. Today denies any fever, chills or nausea. She states her appetite is good and she is supplementing with protein shakes. Operative culture - Staphylococcus simulans, Corynebacteriurm striatum, Corynebacterium amycolatum, and Anaerobic cocci. She was treated initially with Vancomycin and then was pl aced on Levaquin for the ECF. With the recent Anaerobic cocci, will add Cleocin. Prealbumin from 09/22/18 was 12.0. Encouraged nutritional supplementation with protein to help the healing process. Today she denies fever. Her appetite is ok. She is now home from the [facility]. Progress of Wound: Much improved. - Physical Exam Vital Signs Temp Pulse Resp BP 97.5 F L 123 H 18 154/95 H 02/14/19 11:55 02/14/19 11:55 02/14/19 11:55 02/14/19 11:55 General: Alert, Oriented x3, Cooperative HEENT: Atraumatic, PERRLA Oral: Moist Mucosa Lungs: Normal air movement Cardiovascular: Regular rate Abdomen: Soft, Non Tender, Obese Skin: Ulcer/ Wound - Right abdominal ulcer. Mid abdominal ulcer is healed. Wound Measurements and Assessment WC - Nurse 1 - General Ulcer Measurement Start: 02/07/19 09:50 Freq: Status: Active Protocol: Activity Type Activity Date Activity User E-Sign Co-Sign Detail Recorded Client Recorded Date Recorded By Document 02/14/19 11:55 AN [id number] 02/14/19 12:04 AN 02/14/19 11:55 Wound Center Nurse 1 [Ulcer Assessment] #4 Mid Abd Fold -Current Size (cm) - Length 0.1 -Current Size (cm) - Width 0.1 -Current Size (cm) - Depth 0.1 -Total Square Cm 0.01 #2 right pannus -Current Size (cm) - Length 6.9 -Current Size (cm) - Width 6.5 -Current Size (cm) - Depth 0.1 -Total Square Cm 44.85 -Photo Taken No -Classification - Thickness Full Thickness without Exposed Support Structure -Exudate Amt Medium -Exudate Type Serosanguineous -Wound Margin Distinct, Outline Attached -Granulation Amt Large (67-100%) -Granulation Quality Red -Slough/Fibrin Yes -Necrosis Amt Small (1-33%) -Necrotic Tissue Type Adherent Slough -Texture (Lyly-wound Skin Appearance) Assessed -Moisture (Lyly-wound Skin Appearance Assessed ) -Color (Lyly-wound Skin Appearance) Assessed -Temperature (Lyly-wound Skin No Abnormality Appearance) (Pt Warm) -Tenderness on Palpation (Lyly-wound No Skin Appearance) -Ulcer Cleansing Rinsed/ Irrigated with Saline -Anesthetic Used 4% Lidocaine Solution WC - Nurse 2 - General Ulcer CM Notes Start: 02/07/19 09:50 Freq: Status: Active Protocol: Activity Type Activity Date Activity User E-Sign Co-Sign Detail Recorded Client Recorded Date Recorded By Document 02/14/19 12:17 AN [id number] 02/14/19 12:33 AN 02/14/19 12:17 Wound Center Nurse 2 [Procedure/Treatment] -Time 12:19 -Correct Patient Yes -Correct Side, Site, Position Yes -Correct Procedure Yes -Procedure Performed Yes -Type of Procedure Debridement -Clinical Debridement Subcutaneous -Post Debridement Size (cm) - Length 6 -Post Debridement Size (cm) - Width 7.5 -Post Debridement Size (cm) - Depth 0.2 -Total Square Cm 45.0 -Wound/Ulcer Outcome Not Healed -Ulcer Cleansing Rinsed/ Irrigated with Saline -Foul Odor after Cleansing No -Bioengineered Tissue Yes -Type of bioengineered Tissue THERASKIN -Expiration Date 03/31/22 -Product Lot Number [id number] -Percent Used 100 -Saline Lot Number [id number] -Bleeding Controlled with Pressure -Treatment Response Procedure Tolerated Well [See Physician Procedure note for Specifics] Pain Scale: 0-10 Numeric [Pain] -Is Patient Pain Free? Yes Musculoskeletal: No Tenderness to Palpation of Joints or Extremities Neurological: Neuro grossly intact Psych/Mental Status: Normal Affect, Appropriate Debridement Note Post-Debridement Measurements/Treatment WC - Nurse 2 - General Ulcer CM Notes Start: 02/07/19 09:50 Freq: Status: Active Protocol: Activity Type Activity Date Activity User E-Sign Co-Sign Detail Recorded Client Recorded Date Recorded By Document 02/07/19 11:22 [id number] 02/07/19 11:25 Document 02/14/19 12:17 AN [id number] 02/14/19 12:33 AN 02/07/19 02/14/19 11:22 12:17 Wound Center Nurse 2 #4 Mid Abd Fold -Time 11:22 -Correct Patient Yes -Correct Side, Site, Position Yes -Correct Procedure Yes -Procedure Performed Yes -Type of Procedure Debridement -Clinical Debridement Subcutaneous -Post Debridement Size (cm) - Length 0.3 -Post Debridement Size (cm) - Width 1.0 -Post Debridement Size (cm) - Depth 0.3 -Total Square Cm 0.30 -Wound/Ulcer Outcome Not Healed -Ulcer Cleansing Rinsed/ Irrigated with Saline -Foul Odor after Cleansing No -Bioengineered Tissue No -Bleeding Controlled with Pressure -Offloading No -Treatment Response Procedure Tolerated Well #2 right pannus -Time 11:23 12:19 -Correct Patient Yes Yes -Correct Side, Site, Position Yes Yes -Correct Procedure Yes Yes -Procedure Performed Yes Yes -Type of Procedure Debridement Debridement -Clinical Debridement Subcutaneous Subcutaneous -Post Debridement Size (cm) - Length 6.3 6 -Post Debridement Size (cm) - Width 9 7.5 -Post Debridement Size (cm) - Depth 0.2 0.2 -Total Square Cm 56.7 45.0 -Wound/Ulcer Outcome Not Healed Not Healed -Ulcer Cleansing Rinsed/ Rinsed/ Irrigated with Irrigated with Saline Saline -Foul Odor after Cleansing No No -Bioengineered Tissue Yes Yes -Type of bioengineered Tissue THERASKIN THERASKIN -Expiration Date 01/25/23 03/31/22 -Product Lot Number [id number] -Percent Used 100 100 -Saline Lot Number [id number] -Bleeding Controlled with Pressure Pressure -Other 2nd-theraskin ID [id number] exp 03/30/2022 -Offloading No -Treatment Response Procedure Procedure Tolerated Well Tolerated Well Pain Scale: 0-10 Numeric Is Patient Pain Free? Yes Yes Wound debrided: right abdominal Laterality: Right Type of Debridement: Excisional debridement Anesthesia Used: 4% Lidocaine Solution Depth: Down to and including healthy tissue, in the subcutaneous layer Percentage of wound debrided: 100 Instrument Used: 7mm curette Tissue Removed: Subcutaneous tissue and slough Severity: Fat Layer Exposed Amount of bleeding with debridement: Mild Bleeding Controlled with: Pressure Patient tolerated procedure well Assessment/Plan Active Problems (Last Reviewed 11/19/18 @ 10:25 by Angela Song) Erythema intertrigo (Chronic) abdominal wall skin crease intertrigo Panniculitis (Chronic) Abdominal panniculus, symptomatic (Chronic) Skin ulcer of abdominal wall with fat layer exposed (Chronic) Assessment: 1. Nonhealing ulcers right lateral abdominal wall and lower anterior abdominal wall in massive abdominal panniculus. 2. Massive abdominal panniculus with panniculitis. 3. Borderline diabetes. 4. Abdominal wall skin crease intertrigo. 5. Morbid obesity. 6. Incisional hernia. 7. s/p surgical preparation right lateral abdominal wall massive panniculus with excisional debridement skin and subcutaneous tissue for necrotizing soft tissue infection and panniculectomy (858 cm2). Plan: Dakin's dressing changes was stopped. The right abdominal ulcer is looking much improved. Theraskin #7 application applied. Placed two theraskin, using 100% of the products. Secured with dermabond and steri strips. Covered with adaptic wound veil secured with steri strips. Patient tolerated the application well. Mid abdominal ulcer is healed today. Instructed her that she has to keep the skin folds dry or that ulcer will re-open. The next surgery will take place in 6 months because of her blood pressure issues after the last surgery necessitating ICU admission and pressors and PRBC. She understands that multiple procedures will be necessary. Also the central portion would be excised last because of the presence of the hernia. At that time would need assistance from General Surgery for repair of the hernia. Her operative culture showed Staphylococcus simulans, Corynebacterium striatum, and Corynebacterium amycolatum, and Anaerobic cocci. She has been on Levaquin. Cleocin will be added for 10 days. Her Prealbumin from 09/22/18 was 12.0. Encourage nutritional supplementation with protein to help the healing process. She has been drinking Boost protein supplement. She is home from [place]. She is doing well. Her mother is doing her dressing changes and is doing a good job with them. She states she has lost over 100 lbs since her surgery and is feeling well. She states she is able to move easier. She is now home. Followup one week. Code Visit 150xxx-152xx: 73586 Skin sub graft trnk/arm/leg Add On Codes: 64245 Skin sub graft t/a/l add-on - x 2
[2019-02-21 11:51] VITALS: BP 148/98; PULSE 118; RESP 18; TEMP 36.2; BMI 78.4
--- NOTE | 2019-02-21 17:16 | PN.PCM_ITS ---
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 Status: Chronic Current Visit: Yes Code(s): L98.492 - Non-pressure chronic ulcer of skin of other sites with fat layer exposed (2) Erythema intertrigo Status: Chronic Current Visit: Yes Code(s): L30.4 - Erythema intertrigo Comment: abdominal wall skin crease intertrigo (3) Panniculitis Status: Chronic Current Visit: Yes Code(s): M79.3 - Panniculitis, unspecified (4) Abdominal panniculus, symptomatic Status: Chronic Current Visit: Yes Code(s): E65 - Localized adiposity (5) Obesity, Class III, BMI 40-49.9 (morbid obesity) Status: Chronic Current Visit: Yes Code(s): E66.01 - Morbid (severe) obesity due to excess calories Type of Wound Date of Service: 02/21/19 Chief Complaint: Nonhealing ulcers right lateral abdominal wall and lower anterior abdominal wall. History of Wound: Surgery 09/21/18 - Surgical preparation right lateral abdominal wall massive panniculus with excisional debridement skin and subcutaneous tissue for necrotizing soft tissue infection and panniculectomy (858 cm2). Mid abdmonal ulcer has reopened. Encouraged to continue to keep area dry to prevent maceration of the area and reopening of that ulcer. Wound care - Jean-Pierreaskin #8 applied today. Initially she had the VAC and had issues with it at the [facility]. Today denies any fever, chills or nausea. She states her appetite is good and she is supplementing with protein shakes. Operative culture - Staphylococcus simulans, Corynebacteriurm striatum, Corynebacterium amycolatum, and Anaerobic cocci. She was treated initially with Vancomycin and then was p laced on Levaquin for the ECF. With the recent Anaerobic cocci, will add Cleocin. Prealbumin from 09/22/18 was 12.0. Encouraged nutritional supplementation with protein to help the healing process. Today she denies fever. Her appetite is ok. She is now home from the [facility]. Progress of Wound: Much improved. - Physical Exam Vital Signs Temp Pulse Resp BP 97.1 F L 118 H 18 148/98 H 02/21/19 11:51 02/21/19 11:51 02/21/19 11:51 02/21/19 11:51 General: Alert, Oriented x3, Cooperative HEENT: Atraumatic, PERRLA Oral: Moist Mucosa Lungs: Normal air movement Cardiovascular: Regular rate Abdomen: Soft, Obese Extremities: Capillary Refill Less than 3 Seconds Skin: Ulcer/ Wound - Right abdominal Wound Measurements and Assessment - Nurse 1 - General Ulcer Measurement Start: 02/07/19 09:50 Freq: Status: Active Protocol: Activity Type Activity Date Activity User E-Sign Co-Sign Detail Recorded Client Recorded Date Recorded By Document 02/21/19 11:51 AN [id number] 02/21/19 11:56 AN 02/21/19 11:51 Wound Center Nurse 1 [Ulcer Assessment] #2 right pannus -Current Size (cm) - Length 4.7 -Current Size (cm) - Width 8.0 -Current Size (cm) - Depth 0.1 -Total Square Cm 37.60 -Photo Taken No -Classification - Thickness Full Thickness without Exposed Support Structure -Exudate Amt Medium -Exudate Type Serosanguineous -Wound Margin Distinct, Outline Attached -Granulation Amt Large (67-100%) -Granulation Quality Red -Slough/Fibrin Yes -Necrosis Amt Large (67-100%) -Necrotic Tissue Type Adherent Slough -Structure Exposed None/Limited to Skin Breakdown -Texture (Lyly-wound Skin Appearance) Assessed -Moisture (Lyly-wound Skin Appearance Assessed ) -Color (Lyly-wound Skin Appearance) Assessed -Temperature (Lyly-wound Skin No Abnormality Appearance) (Pt Warm) -Ulcer Cleansing Rinsed/ Irrigated with Saline -Foul Odor after Cleansing Yes, Due to Product Use -Anesthetic Used 4% Lidocaine Solution - Nurse 2 - General Ulcer CM Notes Start: 02/07/19 09:50 Freq: Status: Active Protocol: Activity Type Activity Date Activity User E-Sign Co-Sign Detail Recorded Client Recorded Date Recorded By Document 02/21/19 12:46 [id number] 02/21/19 12:48 02/21/19 12:46 Wound Center Nurse 2 [Procedure/Treatment] #4 Mid Abd Fold -Time 12:55 -Correct Patient Yes -Correct Side, Site, Position Yes -Correct Procedure Yes -Procedure Performed Yes -Type of Procedure Debridement -Clinical Debridement Subcutaneous -Post Debridement Size (cm) - Length 0.4 -Post Debridement Size (cm) - Width 0.5 -Post Debridement Size (cm) - Depth 0.1 -Total Square Cm 0.20 -Wound/Ulcer Outcome Not Healed -Ulcer Cleansing Rinsed/ Irrigated with Saline -Foul Odor after Cleansing No -Bioengineered Tissue No -Bleeding Controlled with Pressure -Offloading No -Treatment Response Procedure Tolerated Well #2 right pannus -Time 12:47 -Correct Patient Yes -Correct Side, Site, Position Yes -Correct Procedure Yes -Procedure Performed Yes -Type of Procedure Debridement -Clinical Debridement Subcutaneous -Post Debridement Size (cm) - Length 5.4 -Post Debridement Size (cm) - Width 7.8 -Post Debridement Size (cm) - Depth 0.2 -Total Square Cm 42.12 -Wound/Ulcer Outcome Not Healed -Ulcer Cleansing Rinsed/ Irrigated with Saline -Foul Odor after Cleansing No -Bioengineered Tissue Yes -Type of bioengineered Tissue THERASKIN -Expiration Date 04/18/23 -Product Lot Number [id number] -Percent Used 100 -Saline Lot Number [id number] -Bleeding Controlled with Pressure -Offloading No -Treatment Response Procedure Tolerated Well [See Physician Procedure note for Specifics] Pain Scale: 0-10 Numeric [Pain] -Is Patient Pain Free? No Musculoskeletal: No Tenderness to Palpation of Joints or Extremities Neurological: Neuro grossly intact Psych/Mental Status: Normal Affect, Appropriate Debridement Note Post-Debridement Measurements/Treatment WC - Nurse 2 - General Ulcer CM Notes Start: 02/07/19 09:50 Freq: Status: Active Protocol: Activity Type Activity Date Activity User E-Sign Co-Sign Detail Recorded Client Recorded Date Recorded By Document 02/07/19 11:22 [id number] 02/07/19 11:25 Document 02/14/19 12:17 AN [id number] 02/14/19 12:33 AN Document 02/21/19 12:46 [id number] 02/21/19 12:48 JF 02/07/19 02/14/19 02/21/19 11:22 12:17 12:46 Wound Center Nurse 2 #4 Mid Abd Fold -Time 11:22 12:55 -Correct Patient Yes Yes -Correct Side, Site, Position Yes Yes -Correct Procedure Yes Yes -Procedure Performed Yes Yes -Type of Procedure Debridement Debridement -Clinical Debridement Subcutaneous Subcutaneous -Post Debridement Size (cm) - Length 0.3 0.4 -Post Debridement Size (cm) - Width 1.0 0.5 -Post Debridement Size (cm) - Depth 0.3 0.1 -Total Square Cm 0.30 0.20 -Wound/Ulcer Outcome Not Healed Not Healed -Ulcer Cleansing Rinsed/ Rinsed/ Irrigated with Irrigated with Saline Saline -Foul Odor after Cleansing No No -Bioengineered Tissue No No -Bleeding Controlled with Pressure Pressure -Offloading No No -Treatment Response Procedure Procedure Tolerated Well Tolerated Well #2 right pannus -Time 11:23 12:19 12:47 -Correct Patient Yes Yes Yes -Correct Side, Site, Position Yes Yes Yes -Correct Procedure Yes Yes Yes -Procedure Performed Yes Yes Yes -Type of Procedure Debridement Debridement Debridement -Clinical Debridement Subcutaneous Subcutaneous Subcutaneous -Post Debridement Size (cm) - Length 6.3 6 5.4 -Post Debridement Size (cm) - Width 9 7.5 7.8 -Post Debridement Size (cm) - Depth 0.2 0.2 0.2 -Total Square Cm 56.7 45.0 42.12 -Wound/Ulcer Outcome Not Healed Not Healed Not Healed -Ulcer Cleansing Rinsed/ Rinsed/ Rinsed/ Irrigated with Irrigated with Irrigated with Saline Saline Saline -Foul Odor after Cleansing No No No -Bioengineered Tissue Yes Yes Yes -Type of bioengineered Tissue THERMAUREEN ALFAROAttivioIN -Expiration Date 01/25/23 03/31/22 04/18/23 -Product Lot Number [id number] -Percent Used 100 100 100 -Saline Lot Number [id number] -Bleeding Controlled with Pressure Pressure Pressure -Other 2nd-ther[employer]arus Therapeuticsin ID [id number] exp 03/30/2022 -Offloading No No -Treatment Response Procedure Procedure Procedure Tolerated Well Tolerated Well Tolerated Well Pain Scale: 0-10 Numeric Is Patient Pain Free? Yes Yes No Wound debrided: Right abdominal Laterality: Right Type of Debridement: Excisional debridement Anesthesia Used: 4% Lidocaine Solution Depth: Down to and including healthy tissue, in the subcutaneous layer Percentage of wound debrided: 100 Instrument Used: 7mm curette Tissue Removed: Subcutaneous tissue and slough Severity: Limited To Skin Breakdown Amount of bleeding with debridement: Mild Bleeding Controlled with: Pressure Patient tolerated procedure well - Additional Wound Wound debrided: mid abdominal ulcer Type of Debridement: Excisional debridement Anesthesia Used: 4% Lidocaine Solution Depth: Down to and including healthy tissue Percentage of wound debrided: 100 Instrument Used: 3mm curette Tissue Removed: Subcutaneous tissue and slough Severity: Limited To Skin Breakdown Amount of bleeding with debridement: Mild Bleeding Controlled with: Pressure Patient tolerated procedure: Patient tolerated procedure well Assessment/Plan Active Problems (Last Reviewed 11/19/18 @ 10:25 by Angela Song) Erythema intertrigo (Chronic) abdominal wall skin crease intertrigo Panniculitis (Chronic) Abdominal panniculus, symptomatic (Chronic) Skin ulcer of abdominal wall with fat layer exposed (Chronic) Obesity, Class III, BMI 40-49.9 (morbid obesity) (Chronic) Assessment: 1. Nonhealing ulcers right lateral abdominal wall and lower anterior abdominal wall in massive abdominal panniculus. 2. Massive abdominal panniculus with panniculitis. 3. Borderline diabetes. 4. Abdominal wall skin crease intertrigo. 5. Morbid obesity. 6. Incisional hernia. 7. s/p surgical preparation right lateral abdominal wall massive panniculus with excisional debridement skin and subcutaneous tissue for necrotizing soft tissue infection and panniculectomy (858 cm2). Plan: Dakin's dressing changes was stopped. The right abdominal ulcer is looking much improved. Theraskin #8 application applied, using 100% of the product. Secured with dermabond and steri strips. Covered with adaptic wound veil secured with steri strips. Patient tolerated the application well. Mid abdominal ulcer has reopened, will continue to use aquacel silver to the openeda area. . Instructed her that she has to keep the skin folds dry or that ulcer continue to close and then re-open. The next surgery will take place in 6 months from her last surgery, because of her blood pressure issues after the last surgery necessitating ICU admission and pressors and PRBC. She understands that multiple procedures will be necessary. Also the central portion would be excised last because of the presence of the hernia. At that time would need assistance from General Surgery for repair of the hernia. Her operative culture showed Staphylococcus simulans, Corynebacterium striatum, and Corynebacterium amycolatum, and Anaerobic cocci. She has been on Levaquin. Cleocin will be added for 10 days. Her Prealbumin from 09/22/18 was 12.0. Encourage nutritional supplementation with protein to help the healing process. She has been drinking Boost protein supplement. She is home from [place]. She is doing well. Her mother is doing her dressing changes and is doing a good job with them. She states she has lost over 100 lbs since her surgery and is feeling well. She states she is able to move easier. She is now home. Followup one week. Code Visit 111xxx-113xx: 47813 Josephine subq tissue 20 sq cm/< 150xxx-152xx: 86019 Skin sub graft trnk/arm/leg Add On Codes: 60625 Skin sub graft t/a/l add-on
[2019-03-01 12:42] VITALS: BP 144/85; PULSE 106; RESP 20; TEMP 36.8; BMI 78.4
--- NOTE | 2019-03-01 13:29 | WC ---
silver to mid abd healed wound/ photo take also of wound
--- NOTE | 2019-03-01 16:21 | PCM.WC.PN ---
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 Status: Chronic Current Visit: Yes Code(s): L98.492 - Non-pressure chronic ulcer of skin of other sites with fat layer exposed (2) Erythema intertrigo Status: Chronic Current Visit: Yes Code(s): L30.4 - Erythema intertrigo Comment: abdominal wall skin crease intertrigo (3) Panniculitis Status: Chronic Current Visit: Yes Code(s): M79.3 - Panniculitis, unspecified (4) Abdominal panniculus, symptomatic Status: Chronic Current Visit: Yes Code(s): E65 - Localized adiposity (5) Obesity, Class III, BMI 40-49.9 (morbid obesity) Status: Chronic Current Visit: Yes Code(s): E66.01 - Morbid (severe) obesity due to excess calories Type of Wound Date of Service: 03/01/19 Chief Complaint: Nonhealing ulcers right lateral abdominal wall and lower anterior abdominal wall. History of Wound: Surgery 09/21/18 - Surgical preparation right lateral abdominal wall massive panniculus with excisional debridement skin and subcutaneous tissue for necrotizing soft tissue infection and panniculectomy (858 cm2). Mid abdmonal ulcer has reopened. Encouraged to continue to keep area dry to prevent maceration of the area and reopening of that ulcer. Wound care -Jean-Pierreaskin #8 applied today. Initially she had the VAC and had issues with it at the [facility]. Today denies any fever, chills or nausea. She states her appetite is good and she is supplementing with protein shakes. Operative culture - Staphylococcus simulans, Corynebacteriurm striatum, Corynebacterium amycolatum, and Anaerobic cocci. She was treated initially with Vancomycin and then was placed on Levaquin for the ECF. With the recent Anaerobic cocci, will add Cleocin. Prealbumin from 09/22/18 was 12.0. Encouraged nutritional supplementation with protein to help the healing process. Today she denies fever. Her appetite is ok. She is now home from the [facility]. Progress of Wound: Much improved. - Physical Exam Vital Signs Temp Pulse Resp BP 98.2 F 106 H 20 H 144/85 H 03/01/19 12:42 03/01/19 12:42 03/01/19 12:42 03/01/19 12:42 General: Alert, Oriented x3, Cooperative HEENT: Atraumatic Oral: Moist Mucosa Lungs: Normal air movement Cardiovascular: Regular rate Abdomen: Soft, Obese Extremities: Capillary Refill Less than 3 Seconds, Peripheral Pulses Normal Skin: Ulcer/ Wound - Right abdominal pannus. Mid abdominal is healed today Wound Measurements and Assessment WC - Nurse 1 - General Ulcer Measurement Start: 02/07/19 09:50 Freq: Status: Active Protocol: Activity Type Activity Date Activity User E-Sign Co-Sign Detail Recorded Client Recorded Date Recorded By Document 03/01/19 12:42 DL [id number] 03/01/19 12:53 DL 03/01/19 12:42 Wound Center Nurse 1 [Ulcer Assessment] #4 Mid Abd Fold -Current Size (cm) - Length 0 -Current Size (cm) - Width 0 -Current Size (cm) - Depth 0 -Total Square Cm 0 -Photo Taken Yes -Exudate Amt None Present -Wound Margin Flat & Intact -Granulation Amt Large (67-100%) -Granulation Quality [place] -Necrosis Amt None Present (0 %) -Structure Exposed N/A -Texture (Lyly-wound Skin Appearance) Scarring -Moisture (Lyly-wound Skin Appearance No Abnormality ) -Color (Lyly-wound Skin Appearance) No Abnormality -Temperature (Lyly-wound Skin No Abnormality Appearance) (Pt Warm) -Tenderness on Palpation (Lyly-wound No Skin Appearance) -Ulcer Cleansing Wound Cleanser -Foul Odor after Cleansing No -Anesthetic Used 4% Lidocaine Solution #2 right pannus -Current Size (cm) - Length 4.1 -Current Size (cm) - Width 7 -Current Size (cm) - Depth 0.1 -Total Square Cm 28.7 -Photo Taken No -Exudate Amt Small -Exudate Type Serosanguineous -Wound Margin Distinct, Outline Attached -Granulation Amt Large (67-100%) -Granulation Quality [place] Red -Necrosis Amt Small (1-33%) -Necrotic Tissue Type Adherent Slough -Structure Exposed N/A -Texture (Lyly-wound Skin Appearance) Scarring -Moisture (Lyly-wound Skin Appearance Dry/Scaly ) -Color (Lyly-wound Skin Appearance) Rubor -Temperature (Lyly-wound Skin No Abnormality Appearance) (Pt Warm) -Tenderness on Palpation (Lyly-wound No Skin Appearance) -Ulcer Cleansing Wound Cleanser -Foul Odor after Cleansing No -Anesthetic Used 4% Lidocaine Solution WC - Nurse 2 - General Ulcer CM Notes Start: 02/07/19 09:50 Freq: Status: Active Protocol: Activity Type Activity Date Activity User E-Sign Co-Sign Detail Recorded Client Recorded Date Recorded By Document 03/01/19 13:10 JF [id number] 03/01/19 13:13 JF 03/01/19 13:10 Wound Center Nurse 2 [Procedure/Treatment] #4 Mid Abd Fold -Time 13:10 -Correct Patient No -Correct Side, Site, Position No -Correct Procedure No -Procedure Performed No -Post Debridement Size (cm) - Length 0 -Post Debridement Size (cm) - Width 0 -Post Debridement Size (cm) - Depth 0 -Total Square Cm 0 -Wound/Ulcer Outcome Healed- Epithelialized #2 right pannus -Time 13:11 -Correct Patient Yes -Correct Side, Site, Position Yes -Correct Procedure Yes -Procedure Performed Yes -Type of Procedure Debridement -Clinical Debridement Subcutaneous -Post Debridement Size (cm) - Length 4.3 -Post Debridement Size (cm) - Width 6.5 -Post Debridement Size (cm) - Depth 0.2 -Total Square Cm 27.95 -Wound/Ulcer Outcome Not Healed -Ulcer Cleansing Rinsed/ Irrigated with Saline -Foul Odor after Cleansing No -Bioengineered Tissue Yes -Type of bioengineered Tissue THERASKIN -Expiration Date 03/09/23 -Product Lot Number [id number] -Percent Used 100 -Saline Lot Number [id number] -Bleeding Controlled with Pressure -Offloading No -Treatment Response Procedure Tolerated Well [See Physician Procedure note for Specifics] Pain Scale: 0-10 Numeric [Pain] -Is Patient Pain Free? Yes Musculoskeletal: No Tenderness to Palpation of Joints or Extremities Neurological: Neuro grossly intact Psych/Mental Status: Normal Affect, Appropriate Debridement Note Post-Debridement Measurements/Treatment - Nurse 2 - General Ulcer CM Notes Start: 02/07/19 09:50 Freq: Status: Active Protocol: Activity Type Activity Date Activity User E-Sign Co-Sign Detail Recorded Client Recorded Date Recorded By Document 02/07/19 11:22 JF [id number] 02/07/19 11:25 JF Document 02/14/19 12:17 AN [id number] 02/14/19 12:33 AN Document 02/21/19 12:46 [id number] 02/21/19 12:48 JF Document 03/01/19 13:10 [id number] 03/01/19 13:13 02/07/19 02/14/19 02/21/19 11:22 12:17 12:46 Wound Center Nurse 2 #4 Mid Abd Fold -Time 11:22 12:55 -Correct Patient Yes Yes -Correct Side, Site, Position Yes Yes -Correct Procedure Yes Yes -Procedure Performed Yes Yes -Type of Procedure Debridement Debridement -Clinical Debridement Subcutaneous Subcutaneous -Post Debridement Size (cm) - Length 0.3 0.4 -Post Debridement Size (cm) - Width 1.0 0.5 -Post Debridement Size (cm) - Depth 0.3 0.1 -Total Square Cm 0.30 0.20 -Wound/Ulcer Outcome Not Healed Not Healed -Ulcer Cleansing Rinsed/ Rinsed/ Irrigated with Irrigated with Saline Saline -Foul Odor after Cleansing No No -Bioengineered Tissue No No -Bleeding Controlled with Pressure Pressure -Offloading No No -Treatment Response Procedure Procedure Tolerated Well Tolerated Well #2 right pannus -Time 11:23 12:19 12:47 -Correct Patient Yes Yes Yes -Correct Side, Site, Position Yes Yes Yes -Correct Procedure Yes Yes Yes -Procedure Performed Yes Yes Yes -Type of Procedure Debridement Debridement Debridement -Clinical Debridement Subcutaneous Subcutaneous Subcutaneous -Post Debridement Size (cm) - Length 6.3 6 5.4 -Post Debridement Size (cm) - Width 9 7.5 7.8 -Post Debridement Size (cm) - Depth 0.2 0.2 0.2 -Total Square Cm 56.7 45.0 42.12 -Wound/Ulcer Outcome Not Healed Not Healed Not Healed -Ulcer Cleansing Rinsed/ Rinsed/ Rinsed/ Irrigated with Irrigated with Irrigated with Saline Saline Saline -Foul Odor after Cleansing No No No -Bioengineered Tissue Yes Yes Yes -Type of bioengineered Tissue THERASKIN THERASKIN THERASKIN -Expiration Date 01/25/23 03/31/22 04/18/23 -Product Lot Number [id number] -Percent Used 100 100 100 -Saline Lot Number [id number] -Bleeding Controlled with Pressure Pressure Pressure -Other 2nd-theraskin ID [id number] exp 03/30/2022 -Offloading No No -Treatment Response Procedure Procedure Procedure Tolerated Well Tolerated Well Tolerated Well Pain Scale: 0-10 Numeric Is Patient Pain Free? Yes Yes No 03/01/19 13:10 Wound Center Nurse 2 #4 Mid Abd Fold -Time 13:10 -Correct Patient No -Correct Side, Site, Position No -Correct Procedure No -Procedure Performed No -Type of Procedure -Clinical Debridement -Post Debridement Size (cm) - Length 0 -Post Debridement Size (cm) - Width 0 -Post Debridement Size (cm) - Depth 0 -Total Square Cm 0 -Wound/Ulcer Outcome Healed- Epithelialized -Ulcer Cleansing -Foul Odor after Cleansing -Bioengineered Tissue -Bleeding Controlled with -Offloading -Treatment Response #2 right pannus -Time 13:11 -Correct Patient Yes -Correct Side, Site, Position Yes -Correct Procedure Yes -Procedure Performed Yes -Type of Procedure Debridement -Clinical Debridement Subcutaneous -Post Debridement Size (cm) - Length 4.3 -Post Debridement Size (cm) - Width 6.5 -Post Debridement Size (cm) - Depth 0.2 -Total Square Cm 27.95 -Wound/Ulcer Outcome Not Healed -Ulcer Cleansing Rinsed/ Irrigated with Saline -Foul Odor after Cleansing No -Bioengineered Tissue Yes -Type of bioengineered Tissue THERASKIN -Expiration Date 03/09/23 -Product Lot Number [id number] -Percent Used 100 -Saline Lot Number [id number] -Bleeding Controlled with Pressure -Other -Offloading No -Treatment Response Procedure Tolerated Well Pain Scale: 0-10 Numeric Is Patient Pain Free? Yes Wound debrided: Right abdominal Laterality: Right Type of Debridement: Excisional debridement Anesthesia Used: 4% Lidocaine Solution Depth: Down to and including healthy tissue, in the subcutaneous layer Percentage of wound debrided: 100 Instrument Used: 7mm curette Tissue Removed: Subcutaneous tissue and slough Severity: Fat Layer Exposed Amount of bleeding with debridement: Mild Bleeding Controlled with: Pressure Patient tolerated procedure well Assessment/Plan Active Problems (Last Reviewed 11/19/18 @ 10:25 by Angela Song) Erythema intertrigo (Chronic) abdominal wall skin crease intertrigo Panniculitis (Chronic) Abdominal panniculus, symptomatic (Chronic) Skin ulcer of abdominal wall with fat layer exposed (Chronic) Obesity, Class III, BMI 40-49.9 (morbid obesity) (Chronic) Assessment: 1. Nonhealing ulcers right lateral abdominal wall and lower anterior abdominal wall in massive abdominal panniculus. 2. Massive abdominal panniculus with panniculitis. 3. Borderline diabetes. 4. Abdominal wall skin crease intertrigo. 5. Morbid obesity. 6. Incisional hernia. 7. s/p surgical preparation right lateral abdominal wall massive panniculus with excisional debridement skin and subcutaneous tissue for necrotizing soft tissue infection and panniculectomy (858 cm2). Plan: Dakin's dressing changes was stopped. The right abdominal ulcer is looking much improved. Theraskin #9 application applied, using 100% of the product. Secured with dermabond and steri strips. Covered with adaptic wound veil secured with steri strips. Patient tolerated the application well. Mid abdominal ulcer has reopened, will continue to use aquacel silver to the openeda area. Instructed her that she has to keep the skin folds dry or that ulcer continue to close and then re-open. The next surgery will take place in 6 months from her last surgery, because of her blood pressure issues after the last surgery necessitating ICU admission and pressors and PRBC. She understands that multiple procedures will be necessary. Also the central portion would be excised last because of the presence of the hernia. At that time would need assistance from General Surgery for repair of the hernia. Her operative culture showed Staphylococcus simulans, Corynebacterium striatum, and Corynebacterium amycolatum, and Anaerobic cocci. She has been on Levaquin. Cleocin will be added for 10 days. Her Prealbumin from 09/22/18 was 12.0. Encourage nutritional supplementation with protein to help the healing process. She has been drinking Boost protein supplement. She is home from [place]. She is doing well. Her mother is doing her dressing changes and is doing a good job with them. She states she has lost over 100 lbs since her surgery and is feeling well. She states she is able to move easier. She is now home. Followup one week. Code Visit 150xxx-152xx: 57419 Skin sub graft trnk/arm/leg Add On Codes: 91674 Skin sub graft t/a/l add-on - x1
== END 2019-03-04 23:59 ==
LOC: WC 12:30
PROVIDERS: Family Provider Student in an Organized Health Care Education/Training Program; PCP Student in an Organized Health Care Education/Training Program; Visit Provider Nurse Practitioner Family
DX: L98.492 Non-pressure chronic ulcer of skin of other sites with fat layer exposed (principal); E65 Localized adiposity; E66.01 Morbid (severe) obesity due to excess calories; Z71.3 Dietary counseling and surveillance; L30.4 Erythema intertrigo; R73.03 Prediabetes; M79.3 Panniculitis, unspecified; Z86.19 Personal history of other infectious and parasitic diseases; L98.491 Non-pressure chronic ulcer of skin of other sites limited to breakdown of skin
CPT/HCPCS: 11042; 15271; 15272; 15275; Q4121

== ENCOUNTER 2019-03-22 13:00 | Outpatient (RCR) | payer MEDICAID, SELFPAY ==
[2019-03-05 00:51] VITALS: BP 144/85; PULSE 106; RESP 20; TEMP 36.8
[2019-03-08 12:36] VITALS: BP 147/94; PULSE 108; RESP 20; TEMP 36.3; BMI 78.4
--- NOTE | 2019-03-08 17:17 | PCM.WC.PN ---
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 Status: Chronic Code(s): L98.492 - Non-pressure chronic ulcer of skin of other sites with fat layer exposed (2) Panniculitis Status: Chronic Code(s): M79.3 - Panniculitis, unspecified (3) Abdominal panniculus, symptomatic Status: Chronic Code(s): E65 - Localized adiposity (4) Obesity, Class III, BMI 40-49.9 (morbid obesity) Status: Chronic Code(s): E66.01 - Morbid (severe) obesity due to excess calories Type of Wound Date of Service: 03/08/19 Chief Complaint: Nonhealing ulcers right lateral abdominal wall and lower anterior abdominal wall. History of Wound: Surgery 09/21/18 - Surgical preparation right lateral abdominal wall massive panniculus with excisional debridement skin and subcutaneous tissue for necrotizing soft tissue infection and panniculectomy (858 cm2). Mid abdmonal ulcer has reopened. Encouraged to continue to keep area dry to prevent maceration of the area and reopening of that ulcer. Wound care -Theraskin #10 applied today. Initially she had the VAC and had issues with it at the [facility]. Today denies any fever, chills or nausea. She states her appetite is good and she is supplementing with protein shakes. Operative culture - Staphylococcus simulans, Corynebacteriurm striatum, Corynebacterium amycolatum, and Anaerobic cocci. She was treated initially with Vancomycin and then was placed on Levaquin for the ECF. With the recent Anaerobic cocci, will add Cleocin. Prealbumin from 09/22/18 was 12.0. Encouraged nutritional supplementation with protein to help the healing process. Today she denies fever. Her appetite is ok. She is now home from the [facility]. She is doing very well. She has lost over 100 lbs since her surgery. Progress of Wound: Much improved. - Physical Exam Vital Signs Temp Pulse Resp BP 97.4 F L 108 H 20 H 147/94 H 03/08/19 12:36 03/08/19 12:36 03/08/19 12:36 03/08/19 12:36 General: Alert, Oriented x3, Cooperative HEENT: Atraumatic Oral: Moist Mucosa Lungs: Normal air movement Cardiovascular: Regular rate Extremities: Capillary Refill Less than 3 Seconds Skin: Ulcer/ Wound - right abdominal ulcer with improvement. Mid abdominal ulcer continues to remain healed Wound Measurements and Assessment WC - Nurse 1 - General Ulcer Measurement Start: 03/08/19 12:36 Freq: Status: Active Protocol: Activity Type Activity Date Activity User E-Sign Co-Sign Detail Recorded Client Recorded Date Recorded By Document 03/08/19 12:36 MICHAEL [id number] 03/08/19 12:47 MICHAEL 03/08/19 12:36 Wound Center Nurse 1 [Ulcer Assessment] #2 right pannus -Current Size (cm) - Length 3.3 -Current Size (cm) - Width 6.3 -Current Size (cm) - Depth 0.1 -Total Square Cm 20.79 -Photo Taken No -Exudate Amt Small -Exudate Type Serosanguineous -Wound Margin Distinct, Outline Attached -Granulation Amt Large (67-100%) -Granulation Quality [place]auxite -Necrosis Amt Small (1-33%) -Necrotic Tissue Type Adherent Slough -Structure Exposed N/A -Texture (Lyly-wound Skin Appearance) Scarring -Moisture (Lyly-wound Skin Appearance Dry/Scaly ) -Color (Lyly-wound Skin Appearance) Rubor -Temperature (Lyly-wound Skin No Abnormality Appearance) (Pt Warm) -Tenderness on Palpation (Lyly-wound No Skin Appearance) -Ulcer Cleansing Wound Cleanser -Foul Odor after Cleansing No -Anesthetic Used 4% Lidocaine Solution - Nurse 2 - General Ulcer CM Notes Start: 03/08/19 12:36 Freq: Status: Active Protocol: Activity Type Activity Date Activity User E-Sign Co-Sign Detail Recorded Client Recorded Date Recorded By Document 03/08/19 12:56 LOIS [id number] 03/08/19 13:02 LOIS 03/08/19 12:56 Wound Center Nurse 2 [Procedure/Treatment] -Time 12:56 -Correct Patient Yes -Correct Side, Site, Position Yes -Correct Procedure Yes -Procedure Performed Yes -Type of Procedure Debridement -Clinical Debridement Subcutaneous -Post Debridement Size (cm) - Length 3.5 -Post Debridement Size (cm) - Width 7 -Post Debridement Size (cm) - Depth 0.3 -Total Square Cm 24.5 -Wound/Ulcer Outcome Not Healed -Ulcer Cleansing Rinsed/ Irrigated with Saline -Foul Odor after Cleansing No -Bioengineered Tissue Yes -Type of bioengineered Tissue THERASKIN -Expiration Date 05/21/23 -Product Lot Number [id number] -Percent Used 100 -Saline Lot Number [id number] -Bleeding Controlled with Pressure -Offloading No -Treatment Response Procedure Tolerated Well [See Physician Procedure note for Specifics] Pain Scale: 0-10 Numeric [Pain] -Is Patient Pain Free? Yes Musculoskeletal: No Tenderness to Palpation of Joints or Extremities Neurological: Neuro grossly intact Psych/Mental Status: Normal Affect, Appropriate Debridement Note Post-Debridement Measurements/Treatment WC - Nurse 2 - General Ulcer CM Notes Start: 03/08/19 12:36 Freq: Status: Active Protocol: Activity Type Activity Date Activity User E-Sign Co-Sign Detail Recorded Client Recorded Date Recorded By Document 03/08/19 12:56 LOIS [id number] 03/08/19 13:02 LOIS 03/08/19 12:56 Wound Center Nurse 2 #2 right pannus -Time 12:56 -Correct Patient Yes -Correct Side, Site, Position Yes -Correct Procedure Yes -Procedure Performed Yes -Type of Procedure Debridement -Clinical Debridement Subcutaneous -Post Debridement Size (cm) - Length 3.5 -Post Debridement Size (cm) - Width 7 -Post Debridement Size (cm) - Depth 0.3 -Total Square Cm 24.5 -Wound/Ulcer Outcome Not Healed -Ulcer Cleansing Rinsed/ Irrigated with Saline -Foul Odor after Cleansing No -Bioengineered Tissue Yes -Type of bioengineered Tissue THERASKIN -Expiration Date 05/21/23 -Product Lot Number [id number] -Percent Used 100 -Saline Lot Number [id number] -Bleeding Controlled with Pressure -Offloading No -Treatment Response Procedure Tolerated Well Pain Scale: 0-10 Numeric Is Patient Pain Free? Yes Wound debrided: Abdominal ulcer Laterality: Right Type of Debridement: Excisional debridement Anesthesia Used: 4% Lidocaine Solution Depth: Down to and including healthy tissue, in the subcutaneous layer Percentage of wound debrided: 100 Instrument Used: 7mm curette Tissue Removed: Subcutaneous tissue and slough Severity: Fat Layer Exposed Amount of bleeding with debridement: Mild Bleeding Controlled with: Pressure Patient tolerated procedure well Assessment/Plan Assessment: 1. Nonhealing ulcers right lateral abdominal wall and lower anterior abdominal wall in massive abdominal panniculus. 2. Massive abdominal panniculus with panniculitis. 3. Borderline diabetes. 4. Abdominal wall skin crease intertrigo. 5. Morbid obesity. 6. Incisional hernia. 7. s/p surgical preparation right lateral abdominal wall massive panniculus with excisional debridement skin and subcutaneous tissue for necrotizing soft tissue infection and panniculectomy (858 cm2). Plan: Dakin's dressing changes was stopped. The right abdominal ulcer is looking much improved. Theraskin #10 application applied, using 100% of the product. Secured with dermabond and steri strips. Covered with adaptic wound veil secured with steri strips. Patient tolerated the application well. Mid abdominal ulcer has reopened, will continue to use aquacel silver to the openeda area. Instructed her that she has to keep the skin folds dry or that ulcer continue to close and then re-open. The next surgery will take place in 6 months from her last surgery, because of her blood pressure issues after the last surgery necessitating ICU admission and pressors and PRBC. She understands that multiple procedures will be necessary. Also the central portion would be excised last because of the presence of the hernia. At that time would need assistance from General Surgery for repair of the hernia. Her operative culture showed Staphylococcus simulans, Corynebacterium striatum, and Corynebacterium amycolatum, and Anaerobic cocci. She has been on Levaquin. Cleocin will be added for 10 days. Her Prealbumin from 09/22/18 was 12.0. Encourage nutritional supplementation with protein to help the healing process. She has been drinking Boost protein supplement. She is home from [place]. She is doing well. Her mother is doing her dressing changes and is doing a good job with them. She states she has lost over 100 lbs since her surgery and is feeling well. She states she is able to move easier. She is now home. Followup one week. Code Visit 150xxx-152xx: 24893 Skin sub graft trnk/arm/leg Add On Codes: 28055 Skin sub graft t/a/l add-on
[2019-03-22 13:00] VITALS: BP 163/87; PULSE 87; RESP 16; TEMP 36.6; BMI 78.4
--- NOTE | 2019-03-22 16:48 | PCM.WC.PN ---
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 History of Wound: Surgery 09/21/18 - Surgical preparation right lateral abdominal wall massive panniculus with excisional debridement skin and subcutaneous tissue for necrotizing soft tissue infection and panniculectomy (858 cm2). Mid abdmonal ulcer has reopened. Encouraged to continue to keep area dry to prevent maceration of the area and reopening of that ulcer. Wound care -Theraskin #11 applied today. She is receiving a donated theraskin in hopes that this will completely heal her ulcer. Initially she had the VAC and had issues with it at the [facility]. Today denies any fever, chills or nausea. She states her appetite is good and she is supplementing with protein shakes. Operative culture - Staphylococcus simulans, Corynebacteriurm striatum, Corynebacterium amycolatum, and Anaerobic cocci. She was treated initially with Vancomycin and then was placed on Levaquin for the ECF. With the recent Anaerobic cocci, will add Cleocin. Prealbumin from 09/22/18 was 12.0. Encouraged nutritional supplementation with protein to help the healing process. Today she denies fever. Her appetite is ok. She is now home from the [facility]. She is doing very well. She has lost over 100 lbs since her surgery. Progress of Wound: Much improved. - Physical Exam Vital Signs Temp Pulse Resp BP 97.8 F 87 16 163/87 H 03/22/19 13:00 03/22/19 13:00 03/22/19 13:00 03/22/19 13:00 General: Alert, Oriented x3, Cooperative HEENT: Atraumatic Oral: Moist Mucosa Lungs: Normal air movement Cardiovascular: Regular rate Abdomen: Soft, Non Tender, Obese Extremities: Capillary Refill Less than 3 Seconds, Edema Skin: Ulcer/ Wound - Right lower abdomen ulcer Wound Measurements and Assessment - Nurse 1 - General Ulcer Measurement Start: 03/08/19 12:36 Freq: Status: Active Protocol: Activity Type Activity Date Activity User E-Sign Co-Sign Detail Recorded Client Recorded Date Recorded By Document 03/22/19 13:00 [id number] 03/22/19 13:08 03/22/19 13:00 Wound Center Nurse 1 [Ulcer Assessment] #2 right pannus -Combined with other wound No -Current Size (cm) - Length 3.6 -Current Size (cm) - Width 6.4 -Current Size (cm) - Depth 0.2 -Total Square Cm 23.04 -Photo Taken No -Epithelialization Medium 34-66% -Tunneling No -Undermining/Tunneling No -Circular Undermining No -Exudate Amt Large -Exudate Type Serosanguineous -Wound Margin Flat & Intact -Granulation Amt Medium (34-66%) -Granulation Quality Red -Slough/Fibrin Yes -Necrosis Amt Small (1-33%) -Necrotic Tissue Type Adherent Slough -Structure Exposed N/A -Texture (Lyly-wound Skin Appearance) Assessed, Scarring -Moisture (Lyly-wound Skin Appearance Assessed,Dry/ ) Scaly -Color (Lyly-wound Skin Appearance) Assessed -Temperature (Lyly-wound Skin No Abnormality Appearance) (Pt Warm) -Ulcer Cleansing Wound Cleanser -Foul Odor after Cleansing No -Anesthetic Used 4% Lidocaine Solution,5% Lidocaine Gel [Edema Assessment] -Lower Limb Edema Present NA - Nurse 2 - General Ulcer CM Notes Start: 03/08/19 12:36 Freq: Status: Active Protocol: Activity Type Activity Date Activity User E-Sign Co-Sign Detail Recorded Client Recorded Date Recorded By Document 03/22/19 13:18 [id number] 03/22/19 13:25 03/22/19 13:18 Wound Center Nurse 2 [Procedure/Treatment] #2 right pannus -Time 13:18 -Correct Patient Yes -Correct Side, Site, Position Yes -Correct Procedure Yes -Procedure Performed Yes -Type of Procedure Debridement -Clinical Debridement Subcutaneous -Post Debridement Size (cm) - Length 3.8 -Post Debridement Size (cm) - Width 6.4 -Post Debridement Size (cm) - Depth 0.4 -Total Square Cm 24.32 -Wound/Ulcer Outcome Not Healed -Ulcer Cleansing Rinsed/ Irrigated with Saline -Foul Odor after Cleansing No -Bioengineered Tissue Yes -Type of bioengineered Tissue THERASKIN -Expiration Date 03/09/23 -Product Lot Number [id number] -Percent Used 100 -Saline Lot Number [id number] -Bleeding Controlled with Pressure -Offloading No -Treatment Response Procedure Tolerated Well [See Physician Procedure note for Specifics] Pain Scale: 0-10 Numeric [Pain] -Is Patient Pain Free? Yes Musculoskeletal: No Tenderness to Palpation of Joints or Extremities Neurological: Neuro grossly intact Psych/Mental Status: Normal Affect, Appropriate Debridement Note Post-Debridement Measurements/Treatment WC - Nurse 2 - General Ulcer CM Notes Start: 03/08/19 12:36 Freq: Status: Active Protocol: Activity Type Activity Date Activity User E-Sign Co-Sign Detail Recorded Client Recorded Date Recorded By Document 03/08/19 12:56 [id number] 03/08/19 13:02 Document 03/22/19 13:18 [id number] 03/22/19 13:25 03/08/19 03/22/19 12:56 13:18 Wound Center Nurse 2 #2 right pannus -Time 12:56 13:18 -Correct Patient Yes Yes -Correct Side, Site, Position Yes Yes -Correct Procedure Yes Yes -Procedure Performed Yes Yes -Type of Procedure Debridement Debridement -Clinical Debridement Subcutaneous Subcutaneous -Post Debridement Size (cm) - Length 3.5 3.8 -Post Debridement Size (cm) - Width 7 6.4 -Post Debridement Size (cm) - Depth 0.3 0.4 -Total Square Cm 24.5 24.32 -Wound/Ulcer Outcome Not Healed Not Healed -Ulcer Cleansing Rinsed/ Rinsed/ Irrigated with Irrigated with Saline Saline -Foul Odor after Cleansing No No -Bioengineered Tissue Yes Yes -Type of bioengineered Tissue THERASKIN THERASKIN -Expiration Date 05/21/23 03/09/23 -Product Lot Number [id number] -Percent Used 100 100 -Saline Lot Number [id number] -Bleeding Controlled with Pressure Pressure -Offloading No No -Treatment Response Procedure Procedure Tolerated Well Tolerated Well Pain Scale: 0-10 Numeric Is Patient Pain Free? Yes Yes Wound debrided: Right lower abdomen ulcer Type of Debridement: Excisional debridement Anesthesia Used: 4% Lidocaine Solution Depth: Down to and including healthy tissue, in the subcutaneous layer Percentage of wound debrided: 100 Instrument Used: 7mm curette Tissue Removed: Subcutaneous tissue and slough Severity: Fat Layer Exposed Amount of bleeding with debridement: Mild Bleeding Controlled with: Pressure Patient tolerated procedure well Assessment/Plan Assessment: 1. Nonhealing ulcers right lateral abdominal wall and lower anterior abdominal wall in massive abdominal panniculus. 2. Massive abdominal panniculus with panniculitis. 3. Borderline diabetes. 4. Abdominal wall skin crease intertrigo. 5. Morbid obesity. 6. Incisional hernia. 7. s/p surgical preparation right lateral abdominal wall massive panniculus with excisional debridement skin and subcutaneous tissue for necrotizing soft tissue infection and panniculectomy (858 cm2). Plan: Dakin's dressing changes was stopped. The right abdominal ulcer is looking much improved. She is receiving a donated TheraSkin from the [facility]. Theraskin #11 application applied, using 100% of the product. Secured with dermabond and steri strips. Covered with adaptic wound veil secured with steri strips. Patient tolerated the application well. Mid abdominal ulcer has reopened, will continue to use aquacel silver to the opened area. Instructed her that she has to keep the skin folds dry or that ulcer continue to close and then re-open. The next surgery will take place in 6 months from her last surgery, because of her blood pressure issues after the last surgery necessitating ICU admission and pressors and PRBC. She understands that multiple procedures will be necessary. Also the central portion would be excised last because of the presence of the hernia. At that time would need assistance from General Surgery for repair of the hernia. Her operative culture showed Staphylococcus simulans, Corynebacterium striatum, and Corynebacterium amycolatum, and Anaerobic cocci. She has been on Levaquin. Cleocin will be added for 10 days. Her Prealbumin from 09/22/18 was 12.0. Encourage nutritional supplementation with protein to help the healing process. She has been drinking Boost protein supplement. She is home from [place]. She is doing well. Her mother is doing her dressing changes and is doing a good job with them. She states she has lost over 100 lbs since her surgery and is feeling well. She states she is able to move easier. She is now home. Followup 2 weeks. Code Visit 111xxx-113xx: [id number] Josephine subq tissue 20 sq cm/< Add On Codes: 40717 Josephine subq tissue add-on
== END 2019-04-03 23:59 ==
LOC: WC 13:00
PROVIDERS: Family Provider Student in an Organized Health Care Education/Training Program; PCP Student in an Organized Health Care Education/Training Program; Visit Provider Nurse Practitioner Family
DX: L98.492 Non-pressure chronic ulcer of skin of other sites with fat layer exposed (principal); E65 Localized adiposity; E66.01 Morbid (severe) obesity due to excess calories; Z71.3 Dietary counseling and surveillance; L30.4 Erythema intertrigo; M79.3 Panniculitis, unspecified; R73.03 Prediabetes
CPT/HCPCS: 11042; 11045; 15271; 15272; Q4121

== ENCOUNTER 2019-05-04 11:30 | Outpatient (RCR) | payer MEDICAID, SELFPAY ==
[2019-04-04 00:36] VITALS: BP 163/87; PULSE 87; RESP 16; TEMP 36.6
[2019-04-05 13:24] VITALS: BP 141/91; PULSE 113; RESP 18; TEMP 36.7; BMI 78.4
--- NOTE | 2019-04-05 17:18 | PN.PCM_ITS ---
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 Status: Chronic Current Visit: Yes Code(s): L98.492 - Non-pressure chronic ulcer of skin of other sites with fat layer exposed (2) Abdominal panniculus, symptomatic Status: Chronic Current Visit: Yes Code(s): E65 - Localized adiposity (3) Obesity, Class III, BMI 40-49.9 (morbid obesity) Status: Chronic Current Visit: Yes Code(s): E66.01 - Morbid (severe) obesity due to excess calories Type of Wound Date of Service: 04/08/19 Chief Complaint: Nonhealing ulcers right lateral abdominal wall and lower anterior abdominal wall. History of Wound: Surgery 09/21/18 - Surgical preparation right lateral abdominal wall massive panniculus with excisional debridement skin and subcutaneous tissue for necrotizing soft tissue infection and panniculectomy (858 cm2). Mid abdmonal ulcer has reopened. Encouraged to continue to keep area dry to prevent maceration of the area and reopening of that ulcer. Wound care - Theraskin #12 applied today. She is receiving a donated theraskin in hopes that this will completely heal her ulcer. Initially she had the VAC and had issues with it at the [facility]. Today denies any fever, chills or nausea. She states her appetite is good and she is supplementing with protein shakes. Operative culture - Staphylococcus simulans, Corynebacteriurm striatum, Corynebacterium amycolatum, and Anaerobic cocci. She was treated initially with Vancomycin and then was placed on Levaquin for the ECF. With the recent Anaerobic cocci, will add Cleocin. Prealbumin from 09/22/18 was 12.0. Encouraged nutritional supplementation with protein to help the healing process. Today she denies fever. Her appetite is ok. She is now home from the [facility]. She is doing very well. She has lost over 100 lbs since her surgery. Progress of Wound: Much improved. - Physical Exam Vital Signs Temp Pulse Resp BP 98.0 F 113 H 18 141/91 H 04/05/19 13:24 04/05/19 13:24 04/05/19 13:24 04/05/19 13:24 General: Alert, Oriented x3, Cooperative HEENT: Atraumatic Oral: Moist Mucosa Lungs: Normal air movement Cardiovascular: Regular rate Abdomen: Obese Extremities: Capillary Refill Less than 3 Seconds, Edema, Peripheral Pulses Normal Skin: Ulcer/ Wound - right abdomen Wound Measurements and Assessment - Nurse 1 - General Ulcer Measurement Start: 04/05/19 13:24 Freq: Status: Active Protocol: Activity Type Activity Date Activity User E-Sign Co-Sign Detail Recorded Client Recorded Date Recorded By Document 04/05/19 13:24 [id number] 04/05/19 13:26 04/05/19 13:24 Wound Center Nurse 1 [Ulcer Assessment] #2 right pannus -Combined with other wound No -Current Size (cm) - Length 3.8 -Current Size (cm) - Width 6.2 -Current Size (cm) - Depth 0.3 -Total Square Cm 23.56 -Photo Taken No -Epithelialization Small 1-33% -Tunneling No -Undermining/Tunneling No -Circular Undermining No -Exudate Amt Medium -Exudate Type Serosanguineous -Wound Margin Flat & Intact -Granulation Amt Large (67-100%) -Granulation Quality Red -Slough/Fibrin Yes -Necrosis Amt Small (1-33%) -Necrotic Tissue Type Adherent Slough -Structure Exposed N/A -Texture (Lyly-wound Skin Appearance) Assessed, Scarring -Moisture (Lyly-wound Skin Appearance Assessed,Dry/ ) Scaly -Color (Lyly-wound Skin Appearance) Assessed -Temperature (Lyly-wound Skin No Abnormality Appearance) (Pt Warm) -Tenderness on Palpation (Lyly-wound No Skin Appearance) -Ulcer Cleansing Wound Cleanser -Foul Odor after Cleansing No -Anesthetic Used 4% Lidocaine Solution [Edema Assessment] -Lower Limb Edema Present NA - Nurse 2 - General Ulcer CM Notes Start: 04/05/19 13:24 Freq: Status: Active Protocol: Activity Type Activity Date Activity User E-Sign Co-Sign Detail Recorded Client Recorded Date Recorded By Document 04/05/19 13:26 [id number] 04/05/19 13:34 04/05/19 13:26 Wound Center Nurse 2 [Procedure/Treatment] #2 right pannus -Time 13:26 -Correct Patient Yes -Correct Side, Site, Position Yes -Correct Procedure Yes -Procedure Performed Yes -Type of Procedure Debridement -Clinical Debridement Subcutaneous -Post Debridement Size (cm) - Length 3.3 -Post Debridement Size (cm) - Width 6.3 -Post Debridement Size (cm) - Depth 0.3 -Total Square Cm 20.79 -Wound/Ulcer Outcome Not Healed -Ulcer Cleansing Rinsed/ Irrigated with Saline -Foul Odor after Cleansing No -Bioengineered Tissue Yes -Type of bioengineered Tissue THERASKIN -Expiration Date 08/06/23 -Product Lot Number [id number] -Percent Used 100 -Saline Lot Number [id number] -Bleeding Controlled with Pressure -Offloading No -Treatment Response Procedure Tolerated Well [See Physician Procedure note for Specifics] Pain Scale: 0-10 Numeric [Pain] -Is Patient Pain Free? Yes Musculoskeletal: No Tenderness to Palpation of Joints or Extremities Neurological: Neuro grossly intact Psych/Mental Status: Normal Affect, Appropriate Debridement Note Post-Debridement Measurements/Treatment WC - Nurse 2 - General Ulcer CM Notes Start: 04/05/19 13:24 Freq: Status: Active Protocol: Activity Type Activity Date Activity User E-Sign Co-Sign Detail Recorded Client Recorded Date Recorded By Document 04/05/19 13:26 [id number] 04/05/19 13:34 04/05/19 13:26 Wound Center Nurse 2 #2 right pannus -Time 13:26 -Correct Patient Yes -Correct Side, Site, Position Yes -Correct Procedure Yes -Procedure Performed Yes -Type of Procedure Debridement -Clinical Debridement Subcutaneous -Post Debridement Size (cm) - Length 3.3 -Post Debridement Size (cm) - Width 6.3 -Post Debridement Size (cm) - Depth 0.3 -Total Square Cm 20.79 -Wound/Ulcer Outcome Not Healed -Ulcer Cleansing Rinsed/ Irrigated with Saline -Foul Odor after Cleansing No -Bioengineered Tissue Yes -Type of bioengineered Tissue THERASKIN -Expiration Date 08/06/23 -Product Lot Number [id number] -Percent Used 100 -Saline Lot Number [id number] -Bleeding Controlled with Pressure -Offloading No -Treatment Response Procedure Tolerated Well Pain Scale: 0-10 Numeric Is Patient Pain Free? Yes Wound debrided: Right abdomen Laterality: Right Type of Debridement: Excisional debridement Anesthesia Used: 4% Lidocaine Solution Depth: Down to and including healthy tissue, in the subcutaneous layer Percentage of wound debrided: 100 Instrument Used: 7mm curette Tissue Removed: Subcutaneous tissue and slough Severity: Fat Layer Exposed Amount of bleeding with debridement: Mild Bleeding Controlled with: Pressure Patient tolerated procedure well Assessment/Plan Active Problems (Last Reviewed 11/19/18 @ 10:25 by Angela Song) Abdominal panniculus, symptomatic (Chronic) Skin ulcer of abdominal wall with fat layer exposed (Chronic) Obesity, Class III, BMI 40-49.9 (morbid obesity) (Chronic) Assessment: 1. Nonhealing ulcers right lateral abdominal wall and lower anterior abdominal wall in massive abdominal panniculus. 2. Massive abdominal panniculus with panniculitis. 3. Borderline diabetes. 4. Abdominal wall skin crease intertrigo. 5. Morbid obesity. 6. Incisional hernia. 7. s/p surgical preparation right lateral abdominal wall massive panniculus with excisional debridement skin and subcutaneous tissue for necrotizing soft tissue infection and panniculectomy (858 cm2). Plan: Dakin's dressing changes was stopped. The right abdominal ulcer is looking much improved. She is receiving a donated TheraSkin from the [employer]. Theraskin #12 application applied, using 100% of the product. Secured with dermabond and steri strips. Covered with adaptic wound veil secured with steri strips. Patient tolerated the application well. We will apply for Epifix to see if this will finish healing the ulcer. She would benefit from having another advanced product. Mid abdominal ulcer has healed, encouraged to keep area dry. Instructed her that she has to keep the skin folds dry or that ulcer continue to close and then re-open. The next surgery will take place in 6 months from her last surgery, because of her blood pressure issues after the last surgery necessitating ICU admission and pressors and PRBC. She understands that multi ple procedures will be necessary. Also the central portion would be excised last because of the presence of the hernia. At that time would need assistance from General Surgery for repair of the hernia. Her operative culture showed Staphylococcus simulans, Corynebacterium striatum, and Corynebacterium amycolatum, and Anaerobic cocci. She has been on Levaquin. Cleocin will be added for 10 days. Her Prealbumin from 09/22/18 was 12.0. Encourage nutritional supplementation with protein to help the healing process. She has been drinking Boost protein supplement. She is home from [place]. She is doing well. Her mother is doing her dressing changes and is doing a good job with them. She states she has lost over 100 lbs since her surgery and is feeling well. She states she is able to move easier. She is now home. Followup 1 week. Code Visit 111xxx-113xx: 49030 Josephine subq tissue 20 sq cm/< Add On Codes: 43981 Josephine subq tissue add-on
[2019-04-12 16:32] VITALS: BP 159/84; PULSE 92; RESP 18; TEMP 36.5; BMI 78.4
--- NOTE | 2019-04-12 17:29 | PN.PCM_ITS ---
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 Status: Chronic Current Visit: Yes Code(s): L98.492 - Non-pressure chronic ulcer of skin of other sites with fat layer exposed (2) Abdominal panniculus, symptomatic Status: Chronic Current Visit: Yes Code(s): E65 - Localized adiposity (3) Obesity, Class III, BMI 40-49.9 (morbid obesity) Status: Chronic Current Visit: Yes Code(s): E66.01 - Morbid (severe) obesity due to excess calories Type of Wound Date of Service: 04/12/19 Chief Complaint: Nonhealing ulcers right lateral abdominal wall and lower anterior abdominal wall. History of Wound: Surgery 09/21/18 - Surgical preparation right lateral abdominal wall massive panniculus with excisional debridement skin and subcutaneous tissue for necrotizing soft tissue infection and panniculectomy (858 cm2). Mid abdmonal ulcer has reopened. Encouraged to continue to keep area dry to prevent maceration of the area and reopening of that ulcer. Wound care - Theraskin #12 application. Epifix #1 applied today. She is receiving a donated theraskin in hopes that this will completely heal her ulcer. Initially she had the VAC and had issues with it at the [facility]. Today denies any fever, chills or nausea. She states her appetite is good and she is supplementing with protein shakes. Operative culture - Staphylococcus simulans, Corynebacteriurm striatum, Corynebacterium amycolatum, and Anaerobic cocci. She was treated initially with Vancomycin and then was placed on Levaquin for the ECF. With the recent Anaerobic cocci, will add Cleocin. Prealbumin from 09/22/18 was 12.0. Encouraged nutritional supplementation with protein to help the healing process. Today she denies fever. Her appetite is ok. She is now home from the [facility]. She is doing very well. She has lost over 100 lbs since her surgery. Progress of Wound: Much improved. - Physical Exam Vital Signs Temp Pulse Resp BP 97.7 F L 92 18 159/84 H 04/12/19 16:32 04/12/19 16:32 04/12/19 16:32 04/12/19 16:32 General: Alert, Oriented x3, Cooperative HEENT: Atraumatic Oral: Moist Mucosa Lungs: Normal air movement Cardiovascular: Regular rate Abdomen: Obese - Having some firm areas on her left pannus. She is having increased edema and pain in that area. Extremities: Capillary Refill Less than 3 Seconds, Edema, Peripheral Pulses Normal Skin: Ulcer/ Wound - Right abdominal ulcer Wound Measurements and Assessment WC - Nurse 1 - General Ulcer Measurement Start: 04/05/19 13:24 Freq: Status: Active Protocol: Activity Type Activity Date Activity User E-Sign Co-Sign Detail Recorded Client Recorded Date Recorded By Document 04/12/19 16:32 MW [id number] 04/12/19 16:40 MW 04/12/19 16:32 Wound Center Nurse 1 [Ulcer Assessment] #2 right pannus -Combined with other wound No -Current Size (cm) - Length 3.2 -Current Size (cm) - Width 6.5 -Current Size (cm) - Depth 0.1 -Total Square Cm 20.80 -Photo Taken No -Epithelialization Small 1-33% -Tunneling No -Undermining/Tunneling No -Circular Undermining No -Exudate Amt Small -Exudate Type Serous -Wound Margin Flat & Intact -Granulation Amt Small (1-33%) -Granulation Quality [place] -Slough/Fibrin Yes -Necrosis Amt Large (67-100%) -Necrotic Tissue Type Adherent Slough -Structure Exposed N/A -Texture (Lyly-wound Skin Appearance) Assessed, Scarring -Moisture (Lyly-wound Skin Appearance Assessed,Dry/ ) Scaly -Color (Lyly-wound Skin Appearance) No Abnormality, Assessed -Temperature (Lyly-wound Skin No Abnormality Appearance) (Pt Warm) -Tenderness on Palpation (Lyly-wound No Skin Appearance) -Ulcer Cleansing soap and water -Foul Odor after Cleansing No -Anesthetic Used 4% Lidocaine Solution,5% Lidocaine Gel [Edema Assessment] -Lower Limb Edema Present No WC - Nurse 2 - General Ulcer CM Notes Start: 04/05/19 13:24 Freq: Status: Active Protocol: Activity Type Activity Date Activity User E-Sign Co-Sign Detail Recorded Client Recorded Date Recorded By Document 04/12/19 16:44 MW [id number] 04/12/19 16:53 MW 04/12/19 16:44 Wound Center Nurse 2 [Procedure/Treatment] #2 right pannus -Time 16:45 -Correct Patient Yes -Correct Side, Site, Position Yes -Correct Procedure Yes -Procedure Performed Yes -Type of Procedure Debridement -Clinical Debridement Subcutaneous -Post Debridement Size (cm) - Length 3.2 -Post Debridement Size (cm) - Width 6.5 -Post Debridement Size (cm) - Depth 0.3 -Total Square Cm 20.80 -Wound/Ulcer Outcome Not Healed -Ulcer Cleansing Rinsed/ Irrigated with Saline -Foul Odor after Cleansing No -Bioengineered Tissue Yes -Type of bioengineered Tissue EPIFIX -Expiration Date 07/05/23 -Product Lot Number [id number] -Percent Used 100 -Saline Lot Number [id number] -Bleeding Controlled with Pressure -Offloading No -Treatment Response Procedure Tolerated Well [See Physician Procedure note for Specifics] Pain Scale: 0-10 Numeric [Pain] -Is Patient Pain Free? Yes Musculoskeletal: No Tenderness to Palpation of Joints or Extremities Neurological: Neuro grossly intact Psych/Mental Status: Normal Affect, Appropriate Debridement Note Post-Debridement Measurements/Treatment WC - Nurse 2 - General Ulcer CM Notes Start: 04/05/19 13:24 Freq: Status: Active Protocol: Activity Type Activity Date Activity User E-Sign Co-Sign Detail Recorded Client Recorded Date Recorded By Document 04/05/19 13:26 [id number] 04/05/19 13:34 Document 04/12/19 16:44 MW [id number] 04/12/19 16:53 MW 04/05/19 04/12/19 13:26 16:44 Wound Center Nurse 2 #2 right pannus -Time 13:26 16:45 -Correct Patient Yes Yes -Correct Side, Site, Position Yes Yes -Correct Procedure Yes Yes -Procedure Performed Yes Yes -Type of Procedure Debridement Debridement -Clinical Debridement Subcutaneous Subcutaneous -Post Debridement Size (cm) - Length 3.3 3.2 -Post Debridement Size (cm) - Width 6.3 6.5 -Post Debridement Size (cm) - Depth 0.3 0.3 -Total Square Cm 20.79 20.80 -Wound/Ulcer Outcome Not Healed Not Healed -Ulcer Cleansing Rinsed/ Rinsed/ Irrigated with Irrigated with Saline Saline -Foul Odor after Cleansing No No -Bioengineered Tissue Yes Yes -Type of bioengineered Tissue THERASKIN EPIFIX -Expiration Date 08/06/23 07/05/23 -Product Lot Number [id number] -Percent Used 100 100 -Saline Lot Number [id number] -Bleeding Controlled with Pressure Pressure -Offloading No No -Treatment Response Procedure Procedure Tolerated Well Tolerated Well Pain Scale: 0-10 Numeric Is Patient Pain Free? Yes Yes Wound debrided: Right abdominal ulcer Laterality: Right Type of Debridement: Excisional debridement Anesthesia Used: 5% Lidocaine Gel Depth: Down to and including healthy tissue, in the subcutaneous layer Percentage of wound debrided: 100 Instrument Used: 7mm curette Tissue Removed: Subcutaneous tissue and slough Severity: Fat Layer Exposed Amount of bleeding with debridement: Moderate Bleeding Controlled with: Pressure, Compression and gauze Patient tolerated procedure well Assessment/Plan Active Problems (Last Reviewed 11/19/18 @ 10:25 by Angela Song) Abdominal panniculus, symptomatic (Chronic) Skin ulcer of abdominal wall with fat layer exposed (Chronic) Obesity, Class III, BMI 40-49.9 (morbid obesity) (Chronic) Assessment: 1. Nonhealing ulcers right lateral abdominal wall and lower anterior abdominal wall in massive abdominal panniculus. 2. Massive abdominal panniculus with panniculitis. 3. Borderline diabetes. 4. Abdominal wall skin crease intertrigo. 5. Morbid obesity. 6. Incisional hernia. 7. s/p surgical preparation right lateral abdominal wall massive panniculus with excisional debridement skin and subcutaneous tissue for necrotizing soft tissue infection and panniculectomy (858 cm2). Plan: She received a donated TheraSkin from the [employer]. Theraskin #12 applications. It is medically necessary to get her wound to heal so she can have further surgery on her left pannus. She has been approved for Epifix. Epifix #1 applied today, 100% of the product was used, covered with adaptic wound veil secured with steri strips. Patient tolerated the application well. Mid ab dominal ulcer has healed, encouraged to keep area dry. Instructed her that she has to keep the skin folds dry or that ulcer continue to close and then re-open. The next surgery will take place in 6 months from her last surgery, because of her blood pressure issues after the last surgery necessitating ICU admission and pressors and PRBC. She understands that multiple procedures will be necessary. Also the central portion would be excised last because of the presence of the hernia. At that time would need assistance from General Surgery for repair of the hernia. Her operative culture showed Staphylococcus simulans, Corynebacterium striatum, and Corynebacterium amycolatum, and Anaerobic cocci. She has been on Levaquin. Cleocin will be added for 10 days. Her Prealbumin from 09/22/18 was 12.0. Encourage nutritional supplementation with protein to help the healing process. She has been drinking Boost protein supplement. She is home from [place]. She is doing well. Her mother is doing her dressing changes and is doing a good job with them. She states she has lost over 100 lbs since her surgery and is feeling well. She states she is able to move easier. She is now home. Followup 1 week. Code Visit 150xxx-152xx: 95103 Skin sub graft trnk/arm/leg
[2019-04-19 15:59] VITALS: BP 133/83; PULSE 90; RESP 16; TEMP 36.6; BMI 78.4
--- NOTE | 2019-04-19 17:03 | PCM.WC.PN ---
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 Status: Chronic Current Visit: Yes Code(s): L98.492 - Non-pressure chronic ulcer of skin of other sites with fat layer exposed (2) Abdominal panniculus, symptomatic Status: Chronic Current Visit: Yes Code(s): E65 - Localized adiposity (3) Obesity, Class III, BMI 40-49.9 (morbid obesity) Status: Chronic Current Visit: Yes Code(s): E66.01 - Morbid (severe) obesity due to excess calories Type of Wound Date of Service: 04/19/19 Chief Complaint: Nonhealing ulcers right lateral abdominal wall and lower anterior abdominal wall. History of Wound: Surgery 09/21/18 - Surgical preparation right lateral abdominal wall massive panniculus with excisional debridement skin and subcutaneous tissue for necrotizing soft tissue infection and panniculectomy (858 cm2). Mid abdmonal ulcer has reopened. Encouraged to continue to keep area dry to prevent maceration of the area and reopening of that ulcer. Wound care -Theraskin #12 application. Epifix #1 applied today. She is receiving a donated theraskin in hopes that this will completely heal her ulcer. Initially she had the VAC and had issues with it at the [facility]. Today denies any fever, chills or nausea. She states her appetite is good and she is supplementing with protein shakes. Operative culture - Staphylococcus simulans, Corynebacteriurm striatum, Corynebacterium amycolatum, and Anaerobic cocci. She was treated initially with Vancomycin and then was placed on Levaquin for the ECF. With the recent Anaerobic cocci, will add Cleocin. Prealbumin from 09/22/18 was 12.0. Encouraged nutritional supplementation with protein to help the healing process. Today she denies fever. Her appetite is ok. She is now home from the [facility]. She is doing very well. She has lost over 100 lbs since her surgery. Progress of Wound: Much improved. - Physical Exam Vital Signs Temp Pulse Resp BP 97.8 F 90 16 133/83 H 04/19/19 15:59 04/19/19 15:59 04/19/19 15:59 04/19/19 15:59 General: Alert, Oriented x3, Cooperative HEENT: Atraumatic Oral: Moist Mucosa Lungs: Normal air movement Cardiovascular: Regular rate Abdomen: Obese Extremities: Diminished Peripheral Pulses, Edema Skin: Ulcer/ Wound - Right abdomen ulcer Wound Measurements and Assessment WC - Nurse 1 - General Ulcer Measurement Start: 04/05/19 13:24 Freq: Status: Active Protocol: Activity Type Activity Date Activity User E-Sign Co-Sign Detail Recorded Client Recorded Date Recorded By Document 04/19/19 15:59 [facility] [id number] 04/19/19 16:05 [facility] 04/19/19 15:59 Wound Center Nurse 1 [Ulcer Assessment] #2 right pannus -Combined with other wound No -Current Size (cm) - Length 3.2 -Current Size (cm) - Width 6 -Current Size (cm) - Depth 0.2 -Total Square Cm 19.2 -Date of Last Picture (Recall this 04/19/19 field) -Photo Taken Yes -Epithelialization Small 1-33% -Tunneling No -Undermining/Tunneling No -Circular Undermining No -Exudate Amt Small -Exudate Type Serosanguineous -Wound Margin Distinct, Outline Attached -Granulation Amt Large (67-100%) -Granulation Quality Red -Slough/Fibrin No -Necrosis Amt None Present (0 %) -Texture (Lyly-wound Skin Appearance) Assessed, Scarring -Moisture (Lyly-wound Skin Appearance Assessed,Dry/ ) Scaly -Color (Ylly-wound Skin Appearance) Assessed -Temperature (Lyly-wound Skin No Abnormality Appearance) (Pt Warm) -Tenderness on Palpation (Lyly-wound No Skin Appearance) -Ulcer Cleansing Rinsed/ Irrigated with Saline -Foul Odor after Cleansing No -Anesthetic Used 4% Lidocaine Solution - Nurse 2 - General Ulcer CM Notes Start: 04/05/19 13:24 Freq: Status: Active Protocol: Activity Type Activity Date Activity User E-Sign Co-Sign Detail Recorded Client Recorded Date Recorded By Document 04/19/19 16:45 DV [id number] 04/19/19 16:53 DV 04/19/19 16:45 Wound Center Nurse 2 [Procedure/Treatment] -Time 16:46 -Correct Patient Yes -Correct Side, Site, Position Yes -Correct Procedure Yes -Procedure Performed Yes -Type of Procedure Debridement -Clinical Debridement Subcutaneous -Post Debridement Size (cm) - Length 3.3 -Post Debridement Size (cm) - Width 6.0 -Post Debridement Size (cm) - Depth 0.4 -Total Square Cm 19.80 -Wound/Ulcer Outcome Not Healed -Ulcer Cleansing Rinsed/ Irrigated with Saline -Foul Odor after Cleansing No -Bioengineered Tissue Yes -Type of bioengineered Tissue EPIFIX -Expiration Date 07/05/23 -Product Lot Number [id number] -Percent Used 100 -Saline Lot Number [id number] -Topical Lidocaine (%) 5 -Bleeding Controlled with Pressure -Offloading No -Treatment Response Procedure Tolerated Well [See Physician Procedure note for Specifics] Pain Scale: 0-10 Numeric [Pain] -Is Patient Pain Free? Yes Musculoskeletal: No Tenderness to Palpation of Joints or Extremities Neurological: Neuro grossly intact Psych/Mental Status: Normal Affect, Appropriate Debridement Note Post-Debridement Measurements/Treatment WC - Nurse 2 - General Ulcer CM Notes Start: 04/05/19 13:24 Freq: Status: Active Protocol: Activity Type Activity Date Activity User E-Sign Co-Sign Detail Recorded Client Recorded Date Recorded By Document 04/05/19 13:26 [id number] 04/05/19 13:34 Document 04/12/19 16:44 MW [id number] 04/12/19 16:53 MW Document 04/19/19 16:45 DV [id number] 04/19/19 16:53 DV 04/05/19 04/12/19 04/19/19 13:26 16:44 16:45 Wound Center Nurse 2 #2 right pannus -Time 13:26 16:45 16:46 -Correct Patient Yes Yes Yes -Correct Side, Site, Position Yes Yes Yes -Correct Procedure Yes Yes Yes -Procedure Performed Yes Yes Yes -Type of Procedure Debridement Debridement Debridement -Clinical Debridement Subcutaneous Subcutaneous Subcutaneous -Post Debridement Size (cm) - Length 3.3 3.2 3.3 -Post Debridement Size (cm) - Width 6.3 6.5 6.0 -Post Debridement Size (cm) - Depth 0.3 0.3 0.4 -Total Square Cm 20.79 20.80 19.80 -Wound/Ulcer Outcome Not Healed Not Healed Not Healed -Ulcer Cleansing Rinsed/ Rinsed/ Rinsed/ Irrigated with Irrigated with Irrigated with Saline Saline Saline -Foul Odor after Cleansing No No No -Bioengineered Tissue Yes Yes Yes -Type of bioengineered Tissue THERASKIN EPIFIX EPIFIX -Expiration Date 08/06/23 07/05/23 07/05/23 -Product Lot Number [id number] -Percent Used 100 100 100 -Saline Lot Number [id number] -Topical Lidocaine (%) 5 -Bleeding Controlled with Pressure Pressure Pressure -Offloading No No No -Treatment Response Procedure Procedure Procedure Tolerated Well Tolerated Well Tolerated Well Pain Scale: 0-10 Numeric Is Patient Pain Free? Yes Yes Yes Wound debrided: Right abdomen ulcer Laterality: Right Type of Debridement: Excisional debridement Anesthesia Used: 4% Lidocaine Solution Depth: Down to and including healthy tissue, in the subcutaneous layer Percentage of wound debrided: 100 Instrument Used: 7mm curette Tissue Removed: Subcutaneous tissue and slough Severity: Fat Layer Exposed Amount of bleeding with debridement: Mild Bleeding Controlled with: Compression and gauze Patient tolerated procedure well Assessment/Plan Active Problems (Last Reviewed 11/19/18 @ 10:25 by Angela Song) Abdominal panniculus, symptomatic (Chronic) Skin ulcer of abdominal wall with fat layer exposed (Chronic) Obesity, Class III, BMI 40-49.9 (morbid obesity) (Chronic) Assessment: 1. Nonhealing ulcers right lateral abdominal wall and lower anterior abdominal wall in massive abdominal panniculus. 2. Massive abdominal panniculus with panniculitis. 3. Borderline diabetes. 4. Abdominal wall skin crease intertrigo. 5. Morbid obesity. 6. Incisional hernia. 7. s/p surgical preparation right lateral abdominal wall massive panniculus with excisional debridement skin and subcutaneous tissue for necrotizing soft tissue infection and panniculectomy (858 cm2). Plan: She received a donated TheraSkin from the [employer] Theraskin #12 applications. It is medically necessary to get her wound to heal so she can have further surgery on her left pannus. She has been approved for Epifix. Epifix #2 applied today, 100% of the product was used, covered with adaptic wound veil secured with steri strips. Patient tolerated the application well. Mid abdominal ulcer has healed, encouraged to keep area dry. Instructed her that she has to keep the skin folds dry or that ulcer continue to close and then re-open. The next surgery will take place in 6 months from her last surgery, because of her blood pressure issues after the last surgery necessitating ICU admission and pressors and PRBC. She understands that multiple procedures will be necessary. Also the central portion would be excised last because of the presence of the hernia. At that time would need assistance from General Surgery for repair of the hernia. Her operative culture showed Staphylococcus simulans, Corynebacterium striatum, and Corynebacterium amycolatum, and Anaerobic cocci. She has been on Levaquin. Cleocin will be added for 10 days. Her Prealbumin from 09/22/18 was 12.0. Encourage nutritional supplementation with protein to help the healing process. She has been drinking Boost protein supplement. She is home from [place]. She is doing well. Her mother is doing her dressing changes and is doing a good job with them. She states she has lost over 100 lbs since her surgery and is feeling well. She states she is able to move easier. She is now home. Followup 1 week. Code Visit [id number]: [id number] Skin sub graft trnk/arm/leg
[2019-04-26 16:25] VITALS: BP 138/88; PULSE 104; RESP 18; TEMP 36.3; BMI 78.4
--- NOTE | 2019-04-26 17:59 | PCM.WC.PN ---
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 Status: Chronic Current Visit: Yes Code(s): L98.492 - Non-pressure chronic ulcer of skin of other sites with fat layer exposed (2) Abdominal panniculus, symptomatic Status: Chronic Current Visit: Yes Code(s): E65 - Localized adiposity (3) Obesity, Class III, BMI 40-49.9 (morbid obesity) Status: Chronic Current Visit: Yes Code(s): E66.01 - Morbid (severe) obesity due to excess calories Type of Wound Date of Service: 04/26/19 Chief Complaint: Nonhealing ulcers right lateral abdominal wall and lower anterior abdominal wall. History of Wound: Surgery 09/21/18 - Surgical preparation right lateral abdominal wall massive panniculus with excisional debridement skin and subcutaneous tissue for necrotizing soft tissue infection and panniculectomy (858 cm2). Mid abdmonal ulcer has reopened. Encouraged to continue to keep area dry to prevent maceration of the area and reopening of that ulcer. Wound care -Theraskin #12 application. Epifix #3 applied today. She received a donated theraskin in hopes that it would completely heal her ulcer. Initially she had the VAC and had issues with it at the [facility]. Today denies any fever, chills or nausea. She states her appetite is good and she is supplementing with protein shakes. Operative culture - Staphylococcus simulans, Corynebacteriurm striatum, Corynebacterium amycolatum, and Anaerobic cocci. She was treated initially with Vancomycin and then was placed on Levaquin for the ECF. With the recent Anaerobic cocci, will add Cleocin. Prealbumin from 09/22/18 was 12.0. Encouraged nutritional supplementation with protein to help the healing process. Today she denies fever. Her appetite is ok. She is now home from the [facility]. She is doing very well. She has lost over 100 lbs since her surgery. Progress of Wound: Much improved. - Physical Exam Vital Signs Temp Pulse Resp BP 97.3 F L 104 H 18 138/88 H 04/26/19 16:25 04/26/19 16:25 04/26/19 16:25 04/26/19 16:25 General: Alert, Oriented x3, Cooperative HEENT: Atraumatic Oral: Moist Mucosa Lungs: Normal air movement Cardiovascular: Regular rate Abdomen: Obese Extremities: Capillary Refill Less than 3 Seconds Skin: Ulcer/ Wound - right lower abdominal Wound Measurements and Assessment WC - Nurse 1 - General Ulcer Measurement Start: 04/05/19 13:24 Freq: Status: Active Protocol: Activity Type Activity Date Activity User E-Sign Co-Sign Detail Recorded Client Recorded Date Recorded By Document 04/26/19 16:25 RB [id number] 04/26/19 16:35 RB 04/26/19 16:25 Wound Center Nurse 1 [Ulcer Assessment] #2 right pannus -Combined with other wound No -Current Size (cm) - Length 3.4 -Current Size (cm) - Width 6 -Current Size (cm) - Depth 0.2 -Total Square Cm 20.4 -Photo Taken No -Tunneling No -Undermining/Tunneling No -Circular Undermining No -Exudate Amt Medium -Exudate Type Serosanguineous -Wound Margin Thickened -Granulation Amt Large (67-100%) -Granulation Quality [place] -Slough/Fibrin Yes -Necrosis Amt Large (67-100%) -Necrotic Tissue Type Adherent Slough -Structure Exposed N/A -Texture (Lyly-wound Skin Appearance) Assessed, Scarring -Moisture (Lyly-wound Skin Appearance Assessed ) -Color (Lyly-wound Skin Appearance) Assessed -Temperature (Lyly-wound Skin No Abnormality Appearance) (Pt Warm) -Ulcer Cleansing Wound Cleanser -Foul Odor after Cleansing No -Anesthetic Used 4% Lidocaine Solution - Nurse 2 - General Ulcer CM Notes Start: 04/05/19 13:24 Freq: Status: Active Protocol: Activity Type Activity Date Activity User E-Sign Co-Sign Detail Recorded Client Recorded Date Recorded By Document 04/26/19 17:25 MW [id number] 04/26/19 17:35 MW 04/26/19 17:25 Wound Center Nurse 2 [Procedure/Treatment] -Time 17:26 -Correct Patient Yes -Correct Side, Site, Position Yes -Correct Procedure Yes -Procedure Performed Yes -Type of Procedure Debridement -Clinical Debridement Subcutaneous -Post Debridement Size (cm) - Length 3.2 -Post Debridement Size (cm) - Width 6.2 -Post Debridement Size (cm) - Depth 0.4 -Total Square Cm 19.84 -Wound/Ulcer Outcome Not Healed -Ulcer Cleansing Rinsed/ Irrigated with Saline -Foul Odor after Cleansing No -Bioengineered Tissue Yes -Type of bioengineered Tissue EPIFIX -Expiration Date 07/05/23 -Product Lot Number [id number] -Percent Used 100 -Saline Lot Number [id number] -Bleeding Controlled with Pressure -Offloading No -Treatment Response Procedure Tolerated Well [See Physician Procedure note for Specifics] Pain Scale: 0-10 Numeric [Pain] -Is Patient Pain Free? Yes Musculoskeletal: No Tenderness to Palpation of Joints or Extremities Neurological: Neuro grossly intact Psych/Mental Status: Normal Affect, Appropriate Debridement Note Post-Debridement Measurements/Treatment WC - Nurse 2 - General Ulcer CM Notes Start: 04/05/19 13:24 Freq: Status: Active Protocol: Activity Type Activity Date Activity User E-Sign Co-Sign Detail Recorded Client Recorded Date Recorded By Document 04/05/19 13:26 JF [id number] 04/05/19 13:34 JF Document 04/12/19 16:44 MW [id number] 04/12/19 16:53 MW Document 04/19/19 16:45 DV [id number] 04/19/19 16:53 DV Document 04/26/19 17:25 MW [id number] 04/26/19 17:35 MW 04/05/19 04/12/19 04/19/19 13:26 16:44 16:45 Wound Center Nurse 2 #2 right pannus -Time 13:26 16:45 16:46 -Correct Patient Yes Yes Yes -Correct Side, Site, Position Yes Yes Yes -Correct Procedure Yes Yes Yes -Procedure Performed Yes Yes Yes -Type of Procedure Debridement Debridement Debridement -Clinical Debridement Subcutaneous Subcutaneous Subcutaneous -Post Debridement Size (cm) - Length 3.3 3.2 3.3 -Post Debridement Size (cm) - Width 6.3 6.5 6.0 -Post Debridement Size (cm) - Depth 0.3 0.3 0.4 -Total Square Cm 20.79 20.80 19.80 -Wound/Ulcer Outcome Not Healed Not Healed Not Healed -Ulcer Cleansing Rinsed/ Rinsed/ Rinsed/ Irrigated with Irrigated with Irrigated with Saline Saline Saline -Foul Odor after Cleansing No No No -Bioengineered Tissue Yes Yes Yes -Type of bioengineered Tissue THERASKIN EPIFIX EPIFIX -Expiration Date 08/06/23 07/05/23 07/05/23 -Product Lot Number [id number] -Percent Used 100 100 100 -Saline Lot Number [id number] -Topical Lidocaine (%) 5 -Bleeding Controlled with Pressure Pressure Pressure -Offloading No No No -Treatment Response Procedure Procedure Procedure Tolerated Well Tolerated Well Tolerated Well Pain Scale: 0-10 Numeric Is Patient Pain Free? Yes Yes Yes 04/26/19 17:25 Wound Center Nurse 2 #2 right pannus -Time 17:26 -Correct Patient Yes -Correct Side, Site, Position Yes -Correct Procedure Yes -Procedure Performed Yes -Type of Procedure Debridement -Clinical Debridement Subcutaneous -Post Debridement Size (cm) - Length 3.2 -Post Debridement Size (cm) - Width 6.2 -Post Debridement Size (cm) - Depth 0.4 -Total Square Cm 19.84 -Wound/Ulcer Outcome Not Healed -Ulcer Cleansing Rinsed/ Irrigated with Saline -Foul Odor after Cleansing No -Bioengineered Tissue Yes -Type of bioengineered Tissue EPIFIX -Expiration Date 07/05/23 -Product Lot Number [id number] -Percent Used 100 -Saline Lot Number [id number] -Topical Lidocaine (%) -Bleeding Controlled with Pressure -Offloading No -Treatment Response Procedure Tolerated Well Pain Scale: 0-10 Numeric Is Patient Pain Free? Yes Wound debrided: right lower abdominal Type of Debridement: Excisional debridement Anesthesia Used: 4% Lidocaine Solution Depth: Down to and including healthy tissue, in the subcutaneous layer Instrument Used: 7mm curette Tissue Removed: Subcutaneous tissue and slough Severity: Fat Layer Exposed Amount of bleeding with debridement: Mild Bleeding Controlled with: Compression and gauze Patient tolerated procedure well Assessment/Plan Active Problems (Last Reviewed 11/19/18 @ 10:25 by Angela Song) Abdominal panniculus, symptomatic (Chronic) Skin ulcer of abdominal wall with fat layer exposed (Chronic) Obesity, Class III, BMI 40-49.9 (morbid obesity) (Chronic) Assessment: 1. Nonhealing ulcers right lateral abdominal wall and lower anterior abdominal wall in massive abdominal panniculus. 2. Massive abdominal panniculus with panniculitis. 3. Borderline diabetes. 4. Abdominal wall skin crease intertrigo. 5. Morbid obesity. 6. Incisional hernia. 7. s/p surgical preparation right lateral abdominal wall massive panniculus with excisional debridement skin and subcutaneous tissue for necrotizing soft tissue infection and panniculectomy (858 cm2). Plan: She received a donated TheraSkin from the [employer]. Theraskin #12 applications. It is medically necessary to get her wound to heal so she can have further surgery on her left pannus. She has been approved for Epifix. Epifix #3 applied today, 100% of the product was used, covered with adaptic wound veil secured with steri strips. Patient tolerated the application well. Mid abdominal ulcer has healed, encouraged to keep area dry. Instructed her that she has to keep the skin folds dry or that ulcer continue to close and then re-open. The next surgery will take place in 6 months from her last surgery, because of her blood pressure issues after the last surgery necessitating ICU admission and pressors and PRBC. She understands that multiple procedures will be necessary. Also the central portion would be excised last because of the presence of the hernia. At that time would need assistance from General Surgery for repair of the hernia. Her operative culture showed Staphylococcus simulans, Corynebacterium striatum, and Corynebacterium amycolatum, and Anaerobic cocci. She has been on Levaquin. Cleocin will be added for 10 days. Her Prealbumin from 09/22/18 was 12.0. Encourage nutritional supplementation with protein to help the healing process. She has been drinking Boost protein supplement. She is home from [place]. She is doing well. Her mother is doing her dressing changes and is doing a good job with them. She states she has lost over 100 lbs since her surgery and is feeling well. She states she is able to move easier. She is now home. Followup 1 week. Code Visit [id number]: [id number] Skin sub graft trnk/arm/leg
[2019-05-04 11:47] VITALS: BP 169/91; PULSE 91; RESP 16; TEMP 36.4; BMI 78.4
--- NOTE | 2019-05-04 13:43 | PN.PCM_ITS ---
(1) Obesity, Class III, BMI 40-49.9 (morbid obesity) Status: Chronic Current Visit: Yes Code(s): E66.01 - Morbid (severe) obesity due to excess calories (2) Skin ulcer of abdominal wall with fat layer exposed Status: Chronic Current Visit: Yes Code(s): L98.492 - Non-pressure chronic ulcer of skin of other sites with fat layer exposed Type of Wound Date of Service: 05/04/19 Chief Complaint: Nonhealing ulcers right lateral abdominal wall and lower anterior abdominal wall. History of Wound: Surgery 09/21/18 - Surgical preparation right lateral abdominal wall massive panniculus with excisional debridement skin and subcutaneous tissue for necrotizing soft tissue infection and panniculectomy (858 cm2). Mid abdmonal ulcer has reopened. Encouraged to continue to keep area dry to prevent maceration of the area and reopening of that ulcer. Wound care - Theraskin #12 application. Epifix #3 applied today. She received a donated theraskin in hopes that it would completely heal her ulcer. Initially she had the VAC and had issues with it at the [facility]. Today denies any fever, chills or nausea. She states her appetite is good and she is supplementing with protein shakes. Operative culture - Staphylococcus simulans, Corynebacteriurm striatum, Corynebacterium amycolatum, and Anaerobic cocci. She was treated initially with Vancomycin and then was placed on Levaquin for the ECF. With the recent Anaerobic cocci, will add Cleocin. Prealbumin from 09/22/18 was 12.0. Encouraged nutritional supplementation with protein to help the healing process. Today she denies fever. Her appetite is ok. She is now home from the [facility]. She is doing very well. She has lost over 100 lbs since her surgery. Progress of Wound: Courtesy Visit. No new concerns at this time. Has had epi fix applied. - Physical Exam Vital Signs Temp Pulse Resp BP 97.5 F L 91 16 169/91 H 05/04/19 11:47 05/04/19 11:47 05/04/19 11:47 05/04/19 11:47 General: Alert, Oriented x3, Cooperative, No apparent distress HEENT: Atraumatic, Normocephalic Oral: Moist Mucosa Neck: Supple Lungs: Normal air movement Abdomen: Non Tender, Obese Extremities: No cyanosis Skin: Ulcer/ Wound Wound Measurements and Assessment WC - Nurse 1 - General Ulcer Measurement Start: 04/05/19 13:24 Freq: Status: Active Protocol: Activity Type Activity Date Activity User E-Sign Co-Sign Detail Recorded Client Recorded Date Recorded By Document 05/04/19 11:47 [id number] 05/04/19 11:54 05/04/19 11:47 Wound Center Nurse 1 [Ulcer Assessment] #2 right pannus -Combined with other wound No -Current Size (cm) - Length 2.7 -Current Size (cm) - Width 5.4 -Current Size (cm) - Depth 0.2 -Total Square Cm 14.58 -Photo Taken No -Epithelialization Small 1-33% -Tunneling No -Undermining/Tunneling No -Circular Undermining No -Exudate Amt Medium -Exudate Type Serosanguineous -Wound Margin Thickened -Granulation Amt Large (67-100%) -Granulation Quality [place] -Slough/Fibrin Yes -Necrosis Amt Medium (34-66%) -Necrotic Tissue Type Adherent Slough -Structure Exposed N/A -Texture (Lyly-wound Skin Appearance) Assessed, Scarring -Moisture (Lyly-wound Skin Appearance Assessed,Dry/ ) Scaly -Color (Lyly-wound Skin Appearance) Assessed -Temperature (Ylly-wound Skin No Abnormality Appearance) (Pt Warm) -Tenderness on Palpation (Lyly-wound No Skin Appearance) -Ulcer Cleansing Wound Cleanser -Foul Odor after Cleansing No -Anesthetic Used 4% Lidocaine Solution [Edema Assessment] -Lower Limb Edema Present NA WC - Nurse 2 - General Ulcer CM Notes Start: 04/05/19 13:24 Freq: Status: Active Protocol: Activity Type Activity Date Activity User E-Sign Co-Sign Detail Recorded Client Recorded Date Recorded By Document 05/04/19 12:19 MW [id number] 05/04/19 12:25 MW 05/04/19 12:19 Wound Center Nurse 2 [Procedure/Treatment] #2 right pannus -Time 12:20 -Correct Patient Yes -Correct Side, Site, Position Yes -Correct Procedure Yes -Procedure Performed Yes -Type of Procedure Debridement -Clinical Debridement Subcutaneous -Post Debridement Size (cm) - Length 2.5 -Post Debridement Size (cm) - Width 5.1 -Post Debridement Size (cm) - Depth 0.3 -Total Square Cm 12.75 -Wound/Ulcer Outcome Not Healed -Ulcer Cleansing Rinsed/ Irrigated with Saline -Foul Odor after Cleansing No -Bioengineered Tissue Yes -Type of bioengineered Tissue EPIFIX -Expiration Date 07/05/23 -Product Lot Number [id number] -Percent Used 100 -Saline Lot Number [id number] -Bleeding Controlled with Pressure -Offloading No -Treatment Response Procedure Tolerated Well [See Physician Procedure note for Specifics] Pain Scale: 0-10 Numeric [Pain] -Is Patient Pain Free? Yes Musculoskeletal: No Muscle Wasting Neurological: Cranial nerves II-XII grossly intact Psych/Mental Status: Normal Affect Debridement Note Post-Debridement Measurements/Treatment WC - Nurse 2 - General Ulcer CM Notes Start: 04/05/19 13:24 Freq: Status: Active Protocol: Activity Type Activity Date Activity User E-Sign Co-Sign Detail Recorded Client Recorded Date Recorded By Document 04/05/19 13:26 JF [id number] 04/05/19 13:34 JF Document 04/12/19 16:44 MW [id number] 04/12/19 16:53 MW Document 04/19/19 16:45 DV [id number] 04/19/19 16:53 DV Document 04/26/19 17:25 MW [id number] 04/26/19 17:35 MW Document 05/04/19 12:19 MW [id number] 05/04/19 12:25 MW 04/05/19 04/12/19 04/19/19 13:26 16:44 16:45 Wound Center Nurse 2 #2 right pannus -Time 13:26 16:45 16:46 -Correct Patient Yes Yes Yes -Correct Side, Site, Position Yes Yes Yes -Correct Procedure Yes Yes Yes -Procedure Performed Yes Yes Yes -Type of Procedure Debridement Debridement Debridement -Clinical Debridement Subcutaneous Subcutaneous Subcutaneous -Post Debridement Size (cm) - Length 3.3 3.2 3.3 -Post Debridement Size (cm) - Width 6.3 6.5 6.0 -Post Debridement Size (cm) - Depth 0.3 0.3 0.4 -Total Square Cm 20.79 20.80 19.80 -Wound/Ulcer Outcome Not Healed Not Healed Not Healed -Ulcer Cleansing Rinsed/ Rinsed/ Rinsed/ Irrigated with Irrigated with Irrigated with Saline Saline Saline -Foul Odor after Cleansing No No No -Bioengineered Tissue Yes Yes Yes -Type of bioengineered Tissue [place] EPIFIX EPIFIX -Expiration Date 08/06/23 07/05/23 07/05/23 -Product Lot Number [id number] -Percent Used 100 100 100 -Saline Lot Number [id number] -Topical Lidocaine (%) 5 -Bleeding Controlled with Pressure Pressure Pressure -Offloading No No No -Treatment Response Procedure Procedure Procedure Tolerated Well Tolerated Well Tolerated Well Pain Scale: 0-10 Numeric Is Patient Pain Free? Yes Yes Yes 04/26/19 05/04/19 17:25 12:19 Wound Center Nurse 2 #2 right pannus -Time 17:26 12:20 -Correct Patient Yes Yes -Correct Side, Site, Position Yes Yes -Correct Procedure Yes Yes -Procedure Performed Yes Yes -Type of Procedure Debridement Debridement -Clinical Debridement Subcutaneous Subcutaneous -Post Debridement Size (cm) - Length 3.2 2.5 -Post Debridement Size (cm) - Width 6.2 5.1 -Post Debridement Size (cm) - Depth 0.4 0.3 -Total Square Cm 19.84 12.75 -Wound/Ulcer Outcome Not Healed Not Healed -Ulcer Cleansing Rinsed/ Rinsed/ Irrigated with Irrigated with Saline Saline -Foul Odor after Cleansing No No -Bioengineered Tissue Yes Yes -Type of bioengineered Tissue EPIFIX EPIFIX -Expiration Date 07/05/23 07/05/23 -Product Lot Number [id number] -Percent Used 100 100 -Saline Lot Number [id number] -Topical Lidocaine (%) -Bleeding Controlled with Pressure Pressure -Offloading No No -Treatment Response Procedure Procedure Tolerated Well Tolerated Well Pain Scale: 0-10 Numeric Is Patient Pain Free? Yes Yes Wound debrided: Right lower abdomen Type of Debridement: Excisional debridement Anesthesia Used: 4% Lidocaine Solution Depth: Down to and including healthy tissue, in the subcutaneous layer Percentage of wound debrided: 100 Instrument Used: 5mm curette Tissue Removed: Devitalized tissue Severity: Fat Layer Exposed Amount of bleeding with debridement: Mild Bleeding Controlled with: Pressure Patient tolerated procedure well Assessment/Plan Active Problems (Last Reviewed 11/19/18 @ 10:25 by Angela Song) Abdominal panniculus, symptomatic (Chronic) Skin ulcer of abdominal wall with fat layer exposed (Chronic) Obesity, Class III, BMI 40-49.9 (morbid obesity) (Chronic) Assessment: 1. Nonhealing ulcers right lateral abdominal wall and lower anterior abdominal wall in massive abdominal panniculus. 2. Massive abdominal panniculus with panniculitis. 3. Borderline diabetes. 4. Abdominal wall skin crease intertrigo. 5. Morbid obesity. 6. Incisional hernia. 7. s/p surgical preparation right lateral abdominal wall massive panniculus with excisional debridement skin and subcutaneous tissue for necrotizing soft tissue infection and panniculectomy (858 cm2). Plan: Debridement done as documented above, procedure was well-tolerated. Epifix #4 applied today, 100% of the product was used, covered with wound veil and secured with steri strips. Patient tolerated the application well. Continue to increase protein intake and other abdominal pannus care. Questions were answered and she was advised to call with any further questions or concerns. Follow-up with Belinda Holbrook NP on Thursday. This note was generated with [facility] dictation software. It may contain incorrect words, spelling, and punctuation that were not noted in checking the note before signing.
== END 2019-05-04 23:59 ==
LOC: WC 11:30
PROVIDERS: Family Provider Student in an Organized Health Care Education/Training Program; PCP Student in an Organized Health Care Education/Training Program; Visit Provider Nurse Practitioner Family
DX: L98.492 Non-pressure chronic ulcer of skin of other sites with fat layer exposed (principal); E66.01 Morbid (severe) obesity due to excess calories; Z71.3 Dietary counseling and surveillance; E65 Localized adiposity
CPT/HCPCS: 11042; 11045; 15271; Q4186

== ENCOUNTER 2019-05-30 13:45 | Outpatient (RCR) | payer MEDICAID, SELFPAY ==
[2019-05-05 00:40] VITALS: BP 169/91; PULSE 91; RESP 16; TEMP 36.4
[2019-05-09 14:04] VITALS: BP 138/76; PULSE 91; RESP 16; TEMP 37.5; BMI 78.4
--- NOTE | 2019-05-09 14:52 | PCM.WC.PN ---
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 Status: Chronic Code(s): L98.492 - Non-pressure chronic ulcer of skin of other sites with fat layer exposed (2) Panniculitis Status: Chronic Code(s): M79.3 - Panniculitis, unspecified (3) Abdominal panniculus, symptomatic Status: Chronic Code(s): E65 - Localized adiposity (4) Super-super obese Status: Chronic Code(s): E66.9 - Obesity, unspecified Type of Wound Date of Service: 05/09/19 Chief Complaint: Nonhealing ulcers right lateral abdominal wall and lower anterior abdominal wall. History of Wound: Surgery 09/21/18 - Surgical preparation right lateral abdominal wall massive panniculus with excisional debridement skin and subcutaneous tissue for necrotizing soft tissue infection and panniculectomy (858 cm2). Mid abdmonal ulcer has reopened. Encouraged to continue to keep area dry to prevent maceration of the area and reopening of that ulcer. Wound care -Theraskin #12 application. She received a donated theraskin in hopes that it would completely heal her ulcer. Epifix #5 applied today. Initially she had the VAC and had issues with it at the [facility]. Today denies any fever, chills or nausea. She states her appetite is good and she is supplementing with protein shakes. Operative culture - Staphylococcus simulans, Corynebacteriurm striatum, Corynebacterium amycolatum, and Anaerobic cocci. She was treated initially with Vancomycin and then was placed on Levaquin for the ECF. With the recent Anaerobic cocci, will add Cleocin. Prealbumin from 09/22/18 was 12.0. Encouraged nutritional supplementation with protein to help the healing process. Today she denies fever. Her appetite is ok. She is now home from the [facility]. She is doing very well. She has lost over 100 lbs since her surgery. Progress of Wound: Improved. - Physical Exam Vital Signs Temp Pulse Resp BP 99.5 F H 91 16 138/76 H 05/09/19 14:04 05/09/19 14:04 05/09/19 14:04 05/09/19 14:04 General: Oriented x3, Cooperative HEENT: Atraumatic Oral: Moist Mucosa Lungs: Normal air movement Cardiovascular: Regular rate Abdomen: Obese - She is starting to increased pain and swelling of her left panus Skin: Ulcer/ Wound - right abdominal ulcer Wound Measurements and Assessment - Nurse 1 - General Ulcer Measurement Start: 05/09/19 14:04 Freq: Status: Active Protocol: Activity Type Activity Date Activity User E-Sign Co-Sign Detail Recorded Client Recorded Date Recorded By Document 05/09/19 14:04 LOIS [id number] 05/09/19 14:05 05/09/19 14:04 Wound Center Nurse 1 [Ulcer Assessment] #2 right pannus -Combined with other wound No -Current Size (cm) - Length 2.5 -Current Size (cm) - Width 5 -Current Size (cm) - Depth 0.2 -Total Square Cm 12.5 -Photo Taken No -Epithelialization Small 1-33% -Tunneling No -Undermining/Tunneling No -Circular Undermining No -Exudate Amt Small -Exudate Type Serosanguineous -Wound Margin Fibrotic Scar, Thickened Scar -Granulation Amt Large (67-100%) -Granulation Quality Red -Slough/Fibrin Yes -Necrosis Amt Medium (34-66%) -Necrotic Tissue Type Adherent Slough -Structure Exposed N/A -Texture (Lyly-wound Skin Appearance) Assessed, Excoriation, Scarring -Moisture (Lyly-wound Skin Appearance Assessed,Dry/ ) Scaly -Color (Lyly-wound Skin Appearance) Assessed -Temperature (Lyly-wound Skin No Abnormality Appearance) (Pt Warm) -Tenderness on Palpation (Lyly-wound No Skin Appearance) -Ulcer Cleansing Wound Cleanser -Foul Odor after Cleansing No -Anesthetic Used 4% Lidocaine Solution [Edema Assessment] -Lower Limb Edema Present NA - Nurse 2 - General Ulcer CM Notes Start: 05/09/19 14:04 Freq: Status: Active Protocol: Activity Type Activity Date Activity User E-Sign Co-Sign Detail Recorded Client Recorded Date Recorded By Document 05/09/19 14:09 LOIS [id number] 05/09/19 14:14 05/09/19 14:09 Wound Center Nurse 2 [Procedure/Treatment] #2 right pannus -Time 14:13 -Correct Patient Yes -Correct Side, Site, Position Yes -Correct Procedure Yes -Procedure Performed Yes -Type of Procedure Debridement -Clinical Debridement Subcutaneous -Post Debridement Size (cm) - Length 2.9 -Post Debridement Size (cm) - Width 5.0 -Post Debridement Size (cm) - Depth 0.3 -Total Square Cm 14.50 -Wound/Ulcer Outcome Not Healed -Ulcer Cleansing Rinsed/ Irrigated with Saline -Foul Odor after Cleansing No -Bioengineered Tissue Yes -Type of bioengineered Tissue EPIFIX -Expiration Date 07/05/23 -Product Lot Number [id number] -Percent Used 100 -Saline Lot Number [id number] -Bleeding Controlled with Pressure -Offloading No -Treatment Response Procedure Tolerated Well [See Physician Procedure note for Specifics] Pain Scale: 0-10 Numeric [Pain] -Is Patient Pain Free? Yes Musculoskeletal: No Tenderness to Palpation of Joints or Extremities Neurological: Neuro grossly intact Psych/Mental Status: Normal Affect, Appropriate Debridement Note Post-Debridement Measurements/Treatment WC - Nurse 2 - General Ulcer CM Notes Start: 05/09/19 14:04 Freq: Status: Active Protocol: Activity Type Activity Date Activity User E-Sign Co-Sign Detail Recorded Client Recorded Date Recorded By Document 05/09/19 14:09 LOIS [id number] 05/09/19 14:14 LOIS 05/09/19 14:09 Wound Center Nurse 2 #2 right pannus -Time 14:13 -Correct Patient Yes -Correct Side, Site, Position Yes -Correct Procedure Yes -Procedure Performed Yes -Type of Procedure Debridement -Clinical Debridement Subcutaneous -Post Debridement Size (cm) - Length 2.9 -Post Debridement Size (cm) - Width 5.0 -Post Debridement Size (cm) - Depth 0.3 -Total Square Cm 14.50 -Wound/Ulcer Outcome Not Healed -Ulcer Cleansing Rinsed/ Irrigated with Saline -Foul Odor after Cleansing No -Bioengineered Tissue Yes -Type of bioengineered Tissue EPIFIX -Expiration Date 07/05/23 -Product Lot Number [id number] -Percent Used 100 -Saline Lot Number [id number] -Bleeding Controlled with Pressure -Offloading No -Treatment Response Procedure Tolerated Well Pain Scale: 0-10 Numeric Is Patient Pain Free? Yes Wound debrided: Right abdominal ulcer Laterality: Right Type of Debridement: Excisional debridement Anesthesia Used: 4% Lidocaine Solution, 5% Lidocaine Gel Depth: Down to and including healthy tissue, in the subcutaneous layer Percentage of wound debrided: 100 Instrument Used: 7mm curette Tissue Removed: Subcutaneous tissue and slough Severity: Limited To Skin Breakdown Amount of bleeding with debridement: Mild Bleeding Controlled with: Compression and gauze Patient tolerated procedure well Assessment/Plan Assessment: 1. Nonhealing ulcers right lateral abdominal wall and lower anterior abdominal wall in massive abdominal panniculus. 2. Massive abdominal panniculus with panniculitis. 3. Borderline diabetes. 4. Abdominal wall skin crease intertrigo. 5. Morbid obesity. 6. Incisional hernia. 7. s/p surgical preparation right lateral abdominal wall massive panniculus with excisional debridement skin and subcutaneous tissue for necrotizing soft tissue infection and panniculectomy (858 cm2). Plan: Debridement done as documented above, procedure was well-tolerated. Epifix #5 applied today, 100% of the product was used, covered with wound veil and secured with steri strips. Patient tolerated the application well. Continue to increase protein intake and other abdominal pannus care. Questions were answered and she was advised to call with any further questions or concerns. She is starting to have issues with increase pain and edema of the left pannus. She is interested in having some of that removed. She will see Dr. Hendricks next week and she can discuss that then with him. Follow-up one week. Code Visit [id number]: [id number] Skin sub graft trnk/arm/leg
[2019-05-16 13:20] VITALS: BP 138/83; PULSE 87; RESP 16; TEMP 36.7; BMI 78.4
--- NOTE | 2019-05-16 23:46 | PN.PCM_ITS ---
Type of Wound Date of Service: 05/16/19 Chief Complaint: Nonhealing ulcer right lateral abdominal wall. History of Wound: Surgery 09/21/18 - Surgical preparation right lateral abdominal wall massive panniculus with excisional debridement skin and subcutaneous tissue for necrotizing soft tissue infection and panniculectomy (858 cm2). Wound care -Theraskin #12 application. She received a donated theraskin in hopes that it would completely heal her ulcer. Epifix #5 applications. Initially she had the VAC and had issues with it at the [facility]. Today denies any fever, chills or nausea. She states her appetite is good and she is supplementing with protein shakes. Operative culture - Staphylococcus simulans, Corynebacteriurm striatum, Corynebacterium amycolatum, and Anaerobic cocci. She was treated initially with Vancomycin and then was placed on Levaquin for the ECF. Also Cleocin was added for the Anaerobe. Prealbumin from 09/22/18 was 12.0. Encouraged nutritional supplementation with protein to help the healing process. Today she denies fever. Her appetite is ok. She is now home from the [facility]. She is doing very well. She has lost over 100 lbs since her surgery. With the right side of her abdomen improving, she has noticed the left abdominal wall developing increasing firmness and swelling and dependent edema. Progress of Wound: Improved. - Physical Exam Vital Signs Temp Pulse Resp BP 98.0 F 87 16 138/83 H 05/16/19 13:20 05/16/19 13:20 05/16/19 13:20 05/16/19 13:20 Wound Measurements and Assessment WC - Nurse 1 - General Ulcer Measurement Start: 05/09/19 14:04 Freq: Status: Active Protocol: Activity Type Activity Date Activity User E-Sign Co-Sign Detail Recorded Client Recorded Date Recorded By Document 05/16/19 13:20 LOIS [id number] 05/16/19 13:24 LOIS 05/16/19 13:20 Wound Center Nurse 1 [Ulcer Assessment] #2 right pannus -Combined with other wound No -Current Size (cm) - Length 2.4 -Current Size (cm) - Width 5.3 -Current Size (cm) - Depth 0.2 -Total Square Cm 12.72 -Photo Taken No -Epithelialization Medium 34-66% -Tunneling No -Undermining/Tunneling No -Circular Undermining No -Classification - Thickness Full Thickness without Exposed Support Structure -Exudate Type Serous -Wound Margin Flat & Intact -Granulation Amt Large (67-100%) -Granulation Quality [place] -Slough/Fibrin Yes -Necrosis Amt Small (1-33%) -Necrotic Tissue Type Adherent Slough -Structure Exposed None/Limited to Skin Breakdown -Texture (Lyly-wound Skin Appearance) Assessed, Scarring -Moisture (Lyly-wound Skin Appearance Assessed, ) Weeping -Color (Lyly-wound Skin Appearance) No Abnormality, Assessed -Temperature (Lyly-wound Skin No Abnormality Appearance) (Pt Warm) -Tenderness on Palpation (Lyly-wound No Skin Appearance) -Foul Odor after Cleansing No -Anesthetic Used 4% Lidocaine Solution WC - Nurse 2 - General Ulcer CM Notes Start: 05/09/19 14:04 Freq: Status: Active Protocol: Activity Type Activity Date Activity User E-Sign Co-Sign Detail Recorded Client Recorded Date Recorded By Document 05/16/19 13:33 LOIS [id number] 05/16/19 13:37 05/16/19 13:33 Wound Center Nurse 2 [Procedure/Treatment] -Time 13:37 -Correct Patient Yes -Correct Side, Site, Position Yes -Correct Procedure Yes -Procedure Performed Yes -Type of Procedure Debridement -Clinical Debridement Subcutaneous -Post Debridement Size (cm) - Length 2.5 -Post Debridement Size (cm) - Width 5.3 -Post Debridement Size (cm) - Depth 0.2 -Total Square Cm 13.25 -Wound/Ulcer Outcome Not Healed -Ulcer Cleansing Rinsed/ Irrigated with Saline -Foul Odor after Cleansing No -Bioengineered Tissue Yes -Type of bioengineered Tissue EPIFIX -Expiration Date 09/04/23 -Product Lot Number [id number] -Percent Used 100 -Bleeding Controlled with Pressure -Offloading No -Treatment Response Procedure Tolerated Well [See Physician Procedure note for Specifics] Pain Scale: 0-10 Numeric [Pain] -Is Patient Pain Free? Yes Debridement Note Post-Debridement Measurements/Treatment - Nurse 2 - General Ulcer CM Notes Start: 05/09/19 14:04 Freq: Status: Active Protocol: Activity Type Activity Date Activity User E-Sign Co-Sign Detail Recorded Client Recorded Date Recorded By Document 05/09/19 14:09 [id number] 05/09/19 14:14 Document 05/16/19 13:33 [id number] 05/16/19 13:37 05/09/19 05/16/19 14:09 13:33 Wound Center Nurse 2 #2 right pannus -Time 14:13 13:37 -Correct Patient Yes Yes -Correct Side, Site, Position Yes Yes -Correct Procedure Yes Yes -Procedure Performed Yes Yes -Type of Procedure Debridement Debridement -Clinical Debridement Subcutaneous Subcutaneous -Post Debridement Size (cm) - Length 2.9 2.5 -Post Debridement Size (cm) - Width 5.0 5.3 -Post Debridement Size (cm) - Depth 0.3 0.2 -Total Square Cm 14.50 13.25 -Wound/Ulcer Outcome Not Healed Not Healed -Ulcer Cleansing Rinsed/ Rinsed/ Irrigated with Irrigated with Saline Saline -Foul Odor after Cleansing No No -Bioengineered Tissue Yes Yes -Type of bioengineered Tissue EPIFIX EPIFIX #6 -Expiration Date 07/05/23 09/04/23 -Product Lot Number [id number] -Percent Used 100 100 -Saline Lot Number [id number] -Bleeding Controlled with Pressure Pressure -Offloading No No -Treatment Response Procedure Procedure Tolerated Well Tolerated Well Pain Scale: 0-10 Numeric Is Patient Pain Free? Yes Yes Wound debrided: #2 Right lateral abdominal wall. Laterality: Right Wound Grade/Stage: 3. Type of Debridement: Excisional debridement Anesthesia Used: 4% Lidocaine Solution Depth: Down to and including healthy tissue, in the subcutaneous layer Percentage of wound debrided: 100 Instrument Used: 7mm curette Tissue Removed: subcutaneous tissue. Severity: Fat Layer Exposed Amount of bleeding with debridement: Mild Bleeding Controlled with: Pressure Patient tolerated procedure well, - - I placed application #6 of Epifix today. Expiration date - 09/04/23. Lot Number - [id number]. Percent used - 100%. Assessment/Plan Assessment: 1. 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 2. Massive abdominal panniculus with panniculitis. 3. Borderline diabetes. 4. Abdominal wall skin crease intertrigo. 5. Morbid obesity. 6. Incisional hernia. 7. s/p surgical preparation right lateral abdominal wall massive panniculus with excisional debridement skin and subcutaneous tissue for necrotizing soft tissue infection and panniculectomy (858 cm2). Plan: Epifix #6 applied today, 100% of the product was used. It was covered with wound veil and secured with steri strips. Patient tolerated the applicati on well. Continue to increase protein intake and other abdominal pannus care. She is starting to have issues with increase pain and edema of the left pannus. She is interested in having some of that removed. Will schedule that surgery next month. Because of the difficulty we had with the last surgery with blood pressure, I will admit her the day before for IV hydration and to begin IV antibitiotics. Surgery will be under general anesthesia with a surgical observation overnight stay in the hospital. Because of issues with Home Health coverage, she may need to go to an [facility] initially for the VAC care along with IV antibiotics. Patient was informed of the risks and complications of the procedure including alternatives to surgery. These were discussed with her personally. She voices understanding and wishes to proceed. Follow-up one week.
[2019-05-23 13:08] VITALS: BP 128/89; PULSE 95; RESP 18; TEMP 36.3; BMI 78.4
--- NOTE | 2019-05-23 21:44 | PCM.WC.PN ---
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 Status: Chronic Code(s): L98.492 - Non-pressure chronic ulcer of skin of other sites with fat layer exposed (2) Panniculitis Status: Chronic Code(s): M79.3 - Panniculitis, unspecified (3) Abdominal panniculus, symptomatic Status: Chronic Code(s): E65 - Localized adiposity (4) Super-super obese Status: Chronic Code(s): E66.9 - Obesity, unspecified Type of Wound Date of Service: 05/23/19 Chief Complaint: Nonhealing ulcers right lateral abdominal wall and lower anterior abdominal wall. History of Wound: Surgery 09/21/18 - Surgical preparation right lateral abdominal wall massive panniculus with excisional debridement skin and subcutaneous tissue for necrotizing soft tissue infection and panniculectomy (858 cm2). Mid abdmonal ulcer has reopened. Encouraged to continue to keep area dry to prevent maceration of the area and reopening of that ulcer. Wound care -Theraskin #12 application. She received a donated theraskin in hopes that it would completely heal her ulcer. Epifix #7 applied today. Initially she had the VAC and had issues with it at the [facility]. Today denies any fever, chills or nausea. She states her appetite is good and she is supplementing with protein shakes. Operative culture - Staphylococcus simulans, Corynebacteriurm striatum, Corynebacterium amycolatum, and Anaerobic cocci. She was treated initially with Vancomycin and then was placed on Levaquin for the ECF. With the recent Anaerobic cocci, will add Cleocin. Prealbumin from 09/22/18 was 12.0. Encouraged nutritional supplementation with protein to help the healing process. Today she denies fever. Her appetite is ok. She is now home from the [facility]. She is doing very well. She has lost over 100 lbs since her surgery. Progress of Wound: Improved. - Physical Exam Vital Signs Temp Pulse Resp BP 97.3 F L 95 18 128/89 H 05/23/19 13:08 05/23/19 13:08 05/23/19 13:08 05/23/19 13:08 General: Alert, Oriented x3, Cooperative HEENT: Atraumatic, PERRLA Oral: Moist Mucosa Lungs: Normal air movement Cardiovascular: Regular rate Extremities: Capillary Refill Less than 3 Seconds Skin: Ulcer/ Wound - Right abdominal ulcer Wound Measurements and Assessment WC - Nurse 1 - General Ulcer Measurement Start: 05/09/19 14:04 Freq: Status: Active Protocol: Activity Type Activity Date Activity User E-Sign Co-Sign Detail Recorded Client Recorded Date Recorded By Document 05/23/19 13:08 MW [id number] 05/23/19 13:14 MW 05/23/19 13:08 Wound Center Nurse 1 [Ulcer Assessment] #2 right pannus -Combined with other wound No -Current Size (cm) - Length 2.5 -Current Size (cm) - Width 4.8 -Current Size (cm) - Depth 0.1 -Total Square Cm 12.00 -Photo Taken No -Epithelialization Medium 34-66% -Tunneling No -Undermining/Tunneling No -Circular Undermining No -Exudate Amt Medium -Exudate Type Serosanguineous -Wound Margin Flat & Intact -Granulation Amt Large (67-100%) -Granulation Quality [place] -Slough/Fibrin Yes -Necrosis Amt Small (1-33%) -Necrotic Tissue Type Adherent Slough -Structure Exposed N/A -Texture (Lyly-wound Skin Appearance) Assessed, Scarring -Moisture (Lyly-wound Skin Appearance Assessed,Dry/ ) Scaly -Color (Lyly-wound Skin Appearance) No Abnormality, Assessed -Temperature (Lyly-wound Skin No Abnormality Appearance) (Pt Warm) -Tenderness on Palpation (Lyly-wound No Skin Appearance) -Ulcer Cleansing soap and water -Foul Odor after Cleansing No -Anesthetic Used 5% Lidocaine Gel [Edema Assessment] -Lower Limb Edema Present No WC - Nurse 2 - General Ulcer CM Notes Start: 05/09/19 14:04 Freq: Status: Active Protocol: Activity Type Activity Date Activity User E-Sign Co-Sign Detail Recorded Client Recorded Date Recorded By Document 05/23/19 13:28 [id number] 05/23/19 13:38 05/23/19 13:28 Wound Center Nurse 2 [Procedure/Treatment] #2 right pannus -Time 13:31 -Correct Patient Yes -Correct Side, Site, Position Yes -Correct Procedure Yes -Procedure Performed Yes -Type of Procedure Debridement -Clinical Debridement Subcutaneous -Post Debridement Size (cm) - Length 3.0 -Post Debridement Size (cm) - Width 5 -Post Debridement Size (cm) - Depth 0.2 -Total Square Cm 15.0 -Wound/Ulcer Outcome Not Healed -Ulcer Cleansing Rinsed/ Irrigated with Saline -Foul Odor after Cleansing No -Bioengineered Tissue Yes -Type of bioengineered Tissue EPIFIX -Bleeding Controlled with Pressure -Offloading No -Treatment Response Procedure Tolerated Well [See Physician Procedure note for Specifics] Pain Scale: 0-10 Numeric [Pain] -Is Patient Pain Free? Yes Musculoskeletal: No Tenderness to Palpation of Joints or Extremities Neurological: Deep Tendon Reflexes 2+/4 and Symmetrical Psych/Mental Status: Normal Affect, Appropriate Debridement Note Post-Debridement Measurements/Treatment WC - Nurse 2 - General Ulcer CM Notes Start: 05/09/19 14:04 Freq: Status: Active Protocol: Activity Type Activity Date Activity User E-Sign Co-Sign Detail Recorded Client Recorded Date Recorded By Document 05/09/19 14:09 [id number] 05/09/19 14:14 Document 05/16/19 13:33 [id number] 05/16/19 13:37 Document 05/23/19 13:28 [id number] 05/23/19 13:38 05/09/19 05/16/19 05/23/19 14:09 13:33 13:28 Wound Center Nurse 2 #2 right pannus -Time 14:13 13:37 13:31 -Correct Patient Yes Yes Yes -Correct Side, Site, Position Yes Yes Yes -Correct Procedure Yes Yes Yes -Procedure Performed Yes Yes Yes -Type of Procedure Debridement Debridement Debridement -Clinical Debridement Subcutaneous Subcutaneous Subcutaneous -Post Debridement Size (cm) - Length 2.9 2.5 3.0 -Post Debridement Size (cm) - Width 5.0 5.3 5 -Post Debridement Size (cm) - Depth 0.3 0.2 0.2 -Total Square Cm 14.50 13.25 15.0 -Wound/Ulcer Outcome Not Healed Not Healed Not Healed -Ulcer Cleansing Rinsed/ Rinsed/ Rinsed/ Irrigated with Irrigated with Irrigated with Saline Saline Saline -Foul Odor after Cleansing No No No -Bioengineered Tissue Yes Yes Yes -Type of bioengineered Tissue EPIFIX EPIFIX EPIFIX -Expiration Date 07/05/23 09/04/23 -Product Lot Number [id number] -Percent Used 100 100 -Saline Lot Number [id number] -Bleeding Controlled with Pressure Pressure Pressure -Offloading No No No -Treatment Response Procedure Procedure Procedure Tolerated Well Tolerated Well Tolerated Well Pain Scale: 0-10 Numeric Is Patient Pain Free? Yes Yes Yes Wound debrided: Right abdominal ulcer Laterality: Right Type of Debridement: Excisional debridement Anesthesia Used: 4% Lidocaine Solution, 5% Lidocaine Gel Depth: Down to and including healthy tissue, in the subcutaneous layer Percentage of wound debrided: 100 Instrument Used: 7mm curette Tissue Removed: Subcutaneous tissue and slough Severity: Fat Layer Exposed Amount of bleeding with debridement: Moderate Bleeding Controlled with: Pressure, Compression and gauze Patient tolerated procedure well Assessment/Plan Assessment: 1. Nonhealing ulcers right lateral abdominal wall and lower anterior abdominal wall in massive abdominal panniculus. 2. Massive abdominal panniculus with panniculitis. 3. Borderline diabetes. 4. Abdominal wall skin crease intertrigo. 5. Morbid obesity. 6. Incisional hernia. 7. s/p surgical preparation right lateral abdominal wall massive panniculus with excisional debridement skin and subcutaneous tissue for necrotizing soft tissue infection and panniculectomy (858 cm2). Plan: Debridement done as documented above, procedure was well-tolerated. Epifix #7 applied today, 100% of the product was used, covered with wound veil and secured with steri strips. Patient tolerated the application well. Continue to increase protein intake and other abdominal pannus care. Questions were answered and she was advised to call with any further questions or concerns. She is starting to have issues with increase pain and edema of the left pannus. Follow-up one week. Code Visit [id number]: [id number] Skin sub graft trnk/arm/leg
[2019-05-30 13:36] VITALS: BP 136/69; PULSE 97; RESP 20; TEMP 36.9; BMI 78.4
--- NOTE | 2019-05-30 17:18 | PN.PCM_ITS ---
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 Status: Chronic Code(s): L98.492 - Non-pressure chronic ulcer of skin of other sites with fat layer exposed (2) Panniculitis Status: Chronic Code(s): M79.3 - Panniculitis, unspecified (3) Abdominal panniculus, symptomatic Status: Chronic Code(s): E65 - Localized adiposity (4) Super-super obese Status: Chronic Code(s): E66.9 - Obesity, unspecified Type of Wound Date of Service: 05/30/19 Chief Complaint: Nonhealing ulcer right lateral abdominal wall. History of Wound: Surgery 09/21/18 - Surgical preparation right lateral abdominal wall massive panniculus with excisional debridement skin and subcutaneous tissue for necrotizing soft tissue infection and panniculectomy (858 cm2). Wound care -Theraskin #12 application. She received a donated theraskin in hopes that it would completely heal her ulcer. Epifix #8 application today. Initially she had the VAC and had issues with it at the [facility]. Today denies any fever, chills or nausea. She states her appetite is good and she is supplementing with protein shakes. Operative culture - Staphylococcus simulans, Corynebacteriurm striatum, Corynebacterium amycolatum, and Anaerobic cocci. She was treated initially with Vancomycin and then was placed on Levaquin for the ECF. Also Cleocin was added for the Anaerobe. Prealbumin from 09/22/18 was 12.0. Encouraged nutritional supplementation with protein to help the healing process. Today she denies fever. Her appetite is ok. She is now home from the [facility]. She is doing very well. She has lost over 100 lbs since her surgery. With the right side of her abdomen improving, she has noticed the left abdominal wall developing increasing firmness and swelling and dependent edema. Progress of Wound: Improved. - Physical Exam Vital Signs Temp Pulse Resp BP 98.4 F 97 20 H 136/69 H 05/30/19 13:36 05/30/19 13:36 05/30/19 13:36 05/30/19 13:36 General: Alert, Oriented x3, Cooperative HEENT: Atraumatic Oral: Moist Mucosa Lungs: Normal air movement Cardiovascular: Regular rate Abdomen: Soft Extremities: Capillary Refill Less than 3 Seconds, No Calf Tenderness Skin: Ulcer/ Wound - Right lower abdomen ulcer Wound Measurements and Assessment - Nurse 1 - General Ulcer Measurement Start: 05/09/19 14:04 Freq: Status: Active Protocol: Activity Type Activity Date Activity User E-Sign Co-Sign Detail Recorded Client Recorded Date Recorded By Document 05/30/19 13:36 DL [id number] 05/30/19 13:44 DL 05/30/19 13:36 Wound Center Nurse 1 [Ulcer Assessment] #2 right pannus -Current Size (cm) - Length 2.6 -Current Size (cm) - Width 6.2 -Current Size (cm) - Depth 0.1 -Total Square Cm 16.12 -Photo Taken No -Exudate Amt Small -Exudate Type Serosanguineous -Wound Margin Distinct, Outline Attached -Granulation Amt Medium (34-66%) -Granulation Quality [place] -Necrosis Amt Medium (34-66%) -Necrotic Tissue Type Adherent Slough -Structure Exposed N/A -Texture (Lyly-wound Skin Appearance) Scarring -Moisture ([place]ly[place]-wound Skin Appearance Dry/Scaly ) -Color (Lyly-wound Skin Appearance) No Abnormality -Temperature (Lyly-wound Skin No Abnormality Appearance) (Pt Warm) -Tenderness on Palpation (Lyly-wound No Skin Appearance) -Ulcer Cleansing Wound Cleanser -Foul Odor after Cleansing No -Anesthetic Used 4% Lidocaine Solution - Nurse 2 - General Ulcer CM Notes Start: 05/09/19 14:04 Freq: Status: Active Protocol: Activity Type Activity Date Activity User E-Sign Co-Sign Detail Recorded Client Recorded Date Recorded By Document 05/30/19 14:22 [id number] 05/30/19 14:32 05/30/19 14:22 Wound Center Nurse 2 [Procedure/Treatment] -Time 14:30 -Correct Patient Yes -Correct Side, Site, Position Yes -Correct Procedure Yes -Procedure Performed Yes -Type of Procedure Debridement -Clinical Debridement Subcutaneous -Post Debridement Size (cm) - Length 2.5 -Post Debridement Size (cm) - Width 6.5 -Post Debridement Size (cm) - Depth 0.3 -Total Square Cm 16.25 -Wound/Ulcer Outcome Not Healed -Ulcer Cleansing Rinsed/ Irrigated with Saline -Foul Odor after Cleansing No -Bioengineered Tissue Yes -Type of bioengineered Tissue EPIFIX -Expiration Date 09/04/23 -Product Lot Number [id number] -Percent Used 100 -Saline Lot Number [id number] -Bleeding Controlled with Pressure -Offloading No -Treatment Response Procedure Tolerated Well [See Physician Procedure note for Specifics] Pain Scale: 0-10 Numeric [Pain] -Is Patient Pain Free? Yes Musculoskeletal: No Tenderness to Palpation of Joints or Extremities Neurological: Neuro grossly intact Psych/Mental Status: Normal Affect, Appropriate Debridement Note Post-Debridement Measurements/Treatment WC - Nurse 2 - General Ulcer CM Notes Start: 05/09/19 14:04 Freq: Status: Active Protocol: Activity Type Activity Date Activity User E-Sign Co-Sign Detail Recorded Client Recorded Date Recorded By Document 05/09/19 14:09 [id number] 05/09/19 14:14 Document 05/16/19 13:33 [id number] 05/16/19 13:37 Document 05/23/19 13:28 [id number] 05/23/19 13:38 Document 05/30/19 14:22 [id number] 05/30/19 14:32 05/09/19 05/16/19 05/23/19 14:09 13:33 13:28 Wound Center Nurse 2 #2 right pannus -Time 14:13 13:37 13:31 -Correct Patient Yes Yes Yes -Correct Side, Site, Position Yes Yes Yes -Correct Procedure Yes Yes Yes -Procedure Performed Yes Yes Yes -Type of Procedure Debridement Debridement Debridement -Clinical Debridement Subcutaneous Subcutaneous Subcutaneous -Post Debridement Size (cm) - Length 2.9 2.5 3.0 -Post Debridement Size (cm) - Width 5.0 5.3 5 -Post Debridement Size (cm) - Depth 0.3 0.2 0.2 -Total Square Cm 14.50 13.25 15.0 -Wound/Ulcer Outcome Not Healed Not Healed Not Healed -Ulcer Cleansing Rinsed/ Rinsed/ Rinsed/ Irrigated with Irrigated with Irrigated with Saline Saline Saline -Foul Odor after Cleansing No No No -Bioengineered Tissue Yes Yes Yes -Type of bioengineered Tissue EPIFIX EPIFIX EPIFIX -Expiration Date 07/05/23 09/04/23 -Product Lot Number [id number] -Percent Used 100 100 -Saline Lot Number [id number] -Bleeding Controlled with Pressure Pressure Pressure -Offloading No No No -Treatment Response Procedure Procedure Procedure Tolerated Well Tolerated Well Tolerated Well Pain Scale: 0-10 Numeric Is Patient Pain Free? Yes Yes Yes 05/30/19 14:22 Wound Center Nurse 2 #2 right pannus -Time 14:30 -Correct Patient Yes -Correct Side, Site, Position Yes -Correct Procedure Yes -Procedure Performed Yes -Type of Procedure Debridement -Clinical Debridement Subcutaneous -Post Debridement Size (cm) - Length 2.5 -Post Debridement Size (cm) - Width 6.5 -Post Debridement Size (cm) - Depth 0.3 -Total Square Cm 16.25 -Wound/Ulcer Outcome Not Healed -Ulcer Cleansing Rinsed/ Irrigated with Saline -Foul Odor after Cleansing No -Bioengineered Tissue Yes -Type of bioengineered Tissue EPIFIX -Expiration Date 09/04/23 -Product Lot Number [id number] -Percent Used 100 -Saline Lot Number [id number] -Bleeding Controlled with Pressure -Offloading No -Treatment Response Procedure Tolerated Well Pain Scale: 0-10 Numeric Is Patient Pain Free? Yes Wound debrided: Right lower abdomenal ulcer Type of Debridement: Excisional debridement Anesthesia Used: 4% Lidocaine Solution, 5% Lidocaine Gel Depth: Down to and including healthy tissue, in the subcutaneous layer Percentage of wound debrided: 100 Instrument Used: 7mm curette Tissue Removed: Subcutaneous tissue and slough Severity: Limited To Skin Breakdown Amount of bleeding with debridement: Mild Bleeding Controlled with: Pressure, Compression and gauze Patient tolerated procedure well Assessment/Plan Assessment: 1. 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 2. Massive abdominal panniculus with panniculitis. 3. Borderline diabetes. 4. Abdominal wall skin crease intertrigo. 5. Morbid obesity. 6. Incisional hernia. 7. s/p surgical preparation right lateral abdominal wall massive panniculus with excisional debridement skin and subcutaneous tissue for necrotizing soft tissue infection and panniculectomy (858 cm2). Plan: Epifix #8 applied today, 100% of the product was used. It was covered with wound veil and secured with steri strips. Patient tolerated the application well. Continue to increase protein intake and other abdominal pannus care. She is starting to have issues with increase pain and edema of the left pannus. She is interested in having some of that removed. Will schedule that surgery next month. Because of the difficulty we had with the last surgery with blood pressure, I will admit her the day before for IV hydration and to begin IV antibitiotics. Surgery will be under general anesthesia with a surgical observation overnight stay in the hospital. Because of issues with Home Health coverage, she may need to go to an F initially for the VAC care along with IV antibiotics. Patient was informed of the risks and complications of the procedure including alternatives to surgery. These were discussed with her personally. She voices understanding and wishes to proceed. Follow-up one week. Code Visit 150xxx-152xx: [id number] Skin sub graft trnk/arm/leg
== END 2019-06-04 23:59 ==
LOC: WC 13:45
PROVIDERS: Family Provider Student in an Organized Health Care Education/Training Program; PCP Student in an Organized Health Care Education/Training Program; Visit Provider Nurse Practitioner Family
DX: L98.492 Non-pressure chronic ulcer of skin of other sites with fat layer exposed (principal); E66.01 Morbid (severe) obesity due to excess calories; M79.3 Panniculitis, unspecified; L30.4 Erythema intertrigo; K43.2 Incisional hernia without obstruction or gangrene; R73.03 Prediabetes; E65 Localized adiposity
CPT/HCPCS: 15271; Q4186

== ENCOUNTER 2019-06-28 14:00 | Outpatient (RCR) | payer MEDICAID, SELFPAY ==
[2019-06-05 00:34] VITALS: BP 136/69; PULSE 97; RESP 20; TEMP 36.9
[2019-06-07 13:14] VITALS: BP 141/88; PULSE 78; RESP 18; TEMP 36.5; BMI 78.4
--- NOTE | 2019-06-07 17:14 | PCM.WC.PN ---
(1) Abdominal panniculus, symptomatic Status: Chronic Code(s): E65 - Localized adiposity (2) Skin ulcer of abdominal wall with fat layer exposed Status: Chronic Code(s): L98.492 - Non-pressure chronic ulcer of skin of other sites with fat layer exposed (3) Obesity, Class III, BMI 40-49.9 (morbid obesity) Status: Chronic Code(s): E66.01 - Morbid (severe) obesity due to excess calories (4) Prediabetes Status: Chronic Code(s): R73.03 - Prediabetes Type of Wound Date of Service: 06/07/19 Chief Complaint: Nonhealing ulcer right lateral abdominal wall. History of Wound: Surgery 09/21/18 - Surgical preparation right lateral abdominal wall massive panniculus with excisional debridement skin and subcutaneous tissue for necrotizing soft tissue infection and panniculectomy (858 cm2). Wound care -Theraskin #12 application. She received a donated theraskin in hopes that it would completely heal her ulcer. Epifix #8 applied last week. Will take a break from the Epifix this week due to availability and have her do daily silver dressing changes. She is allowed to shower and wash the ulcer daily with soap and water. Follow up in one week for Epifix application. Prealbumin from 09/22/18 was 12.0. Encouraged nutritional supplementation with protein to help the healing process. With the right side of her abdomen improving, she has noticed the left abdominal wall developing increasing firmness and swelling and dependent edema. Progress of Wound: Stable - Physical Exam Vital Signs Temp Pulse Resp BP 97.7 F L 78 18 141/88 H 06/07/19 13:14 06/07/19 13:14 06/07/19 13:14 06/07/19 13:14 Wound Measurements and Assessment WC - Nurse 1 - General Ulcer Measurement Start: 06/07/19 13:13 Freq: Status: Active Protocol: Activity Type Activity Date Activity User E-Sign Co-Sign Detail Recorded Client Recorded Date Recorded By Document 06/07/19 13:14 MW [id number] 06/07/19 13:22 MW 06/07/19 13:14 Wound Center Nurse 1 [Ulcer Assessment] #2 right pannus -Combined with other wound No -Current Size (cm) - Length 3.0 -Current Size (cm) - Width 6.0 -Current Size (cm) - Depth 0.1 -Total Square Cm 18.00 -Photo Taken No -Epithelialization Small 1-33% -Tunneling No -Undermining/Tunneling No -Circular Undermining No -Exudate Amt Large -Exudate Type Serosanguineous -Wound Margin Flat & Intact -Granulation Amt Large (67-100%) -Granulation Quality [place] -Slough/Fibrin Yes -Necrosis Amt Small (1-33%) -Necrotic Tissue Type Adherent Slough -Structure Exposed N/A -Texture (Lyly-wound Skin Appearance) Assessed, Localized Edema -Moisture (Lyly-wound Skin Appearance Assessed,Dry/ ) Scaly -Color (Lyly-wound Skin Appearance) No Abnormality, Assessed -Temperature (Lyly-wound Skin No Abnormality Appearance) (Pt Warm) -Tenderness on Palpation (Lyly-wound No Skin Appearance) -Ulcer Cleansing soap and water -Foul Odor after Cleansing No -Anesthetic Used 5% Lidocaine Gel [Edema Assessment] -Lower Limb Edema Present No WC - Nurse 2 - General Ulcer CM Notes Start: 06/07/19 13:13 Freq: Status: Active Protocol: Activity Type Activity Date Activity User E-Sign Co-Sign Detail Recorded Client Recorded Date Recorded By Document 06/07/19 13:40 [id number] 06/07/19 13:42 LOIS 06/07/19 13:40 Wound Center Nurse 2 [Procedure/Treatment] #2 right pannus -Time 13:40 -Correct Patient Yes -Correct Side, Site, Position Yes -Correct Procedure Yes -Procedure Performed Yes -Type of Procedure Debridement -Clinical Debridement Subcutaneous -Post Debridement Size (cm) - Length 2.5 -Post Debridement Size (cm) - Width 6 -Post Debridement Size (cm) - Depth 0.3 -Total Square Cm 15.0 -Wound/Ulcer Outcome Not Healed -Ulcer Cleansing Rinsed/ Irrigated with Saline -Foul Odor after Cleansing No -Bioengineered Tissue No -Bleeding Controlled with Pressure -Offloading No -Treatment Response Procedure Tolerated Well [See Physician Procedure note for Specifics] Pain Scale: 0-10 Numeric [Pain] -Is Patient Pain Free? Yes Debridement Note Post-Debridement Measurements/Treatment WC - Nurse 2 - General Ulcer CM Notes Start: 06/07/19 13:13 Freq: Status: Active Protocol: Activity Type Activity Date Activity User E-Sign Co-Sign Detail Recorded Client Recorded Date Recorded By Document 06/07/19 13:40 [id number] 06/07/19 13:42 OLIS 06/07/19 13:40 Wound Center Nurse 2 #2 right pannus -Time 13:40 -Correct Patient Yes -Correct Side, Site, Position Yes -Correct Procedure Yes -Procedure Performed Yes -Type of Procedure Debridement -Clinical Debridement Subcutaneous -Post Debridement Size (cm) - Length 2.5 -Post Debridement Size (cm) - Width 6 -Post Debridement Size (cm) - Depth 0.3 -Total Square Cm 15.0 -Wound/Ulcer Outcome Not Healed -Ulcer Cleansing Rinsed/ Irrigated with Saline -Foul Odor after Cleansing No -Bioengineered Tissue No -Bleeding Controlled with Pressure -Offloading No -Treatment Response Procedure Tolerated Well Pain Scale: 0-10 Numeric Is Patient Pain Free? Yes Assessment/Plan Assessment: 1. 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 2. Massive abdominal panniculus with panniculitis. 3. Borderline diabetes. 4. Abdominal wall skin crease intertrigo. 5. Morbid obesity. 6. Incisional hernia. 7. s/p surgical preparation right lateral abdominal wall massive panniculus with excisional debridement skin and subcutaneous tissue for necrotizing soft tissue infection and panniculectomy (858 cm2). Plan: Epifix #8 applied today, 100% of the product was used. It was covered with wound veil and secured with steri strips. Patient tolerated the application well. Continue to increase protein intake and other abdominal pannus care. She is starting to have issues with increase pain and edema of the left pannus. She is interested in having some of that removed. Will schedule that surgery next month. Because of the difficulty we had with the last surgery with blood pressure, I will admit her the day before for IV hydration and to begin IV antibitiotics. Surgery will be under general anesthesia with a surgical observation overnight stay in the hospital. Because of issues with Home Health coverage, she may need to go to an [facility] initially for the VAC care along with IV antibiotics. Patient was informed of the risks and complications of the procedure including alternatives to surgery. These were discussed with her personally. She voices understanding and wishes to proceed. Follow-up one week. Code Visit 111xxx-113xx: [id number] Josephine subq tissue 20 sq cm/<
[2019-06-14 12:58] VITALS: BP 160/94; PULSE 89; RESP 22; TEMP 36.8; BMI 78.4
--- NOTE | 2019-06-14 14:33 | PCM.WC.PN ---
(1) Abdominal panniculus, symptomatic Status: Chronic Code(s): E65 - Localized adiposity (2) Skin ulcer of abdominal wall with fat layer exposed Status: Chronic Code(s): L98.492 - Non-pressure chronic ulcer of skin of other sites with fat layer exposed (3) Obesity, Class III, BMI 40-49.9 (morbid obesity) Status: Chronic Code(s): E66.01 - Morbid (severe) obesity due to excess calories (4) Prediabetes Status: Chronic Code(s): R73.03 - Prediabetes Type of Wound Date of Service: 06/14/19 Chief Complaint: Nonhealing ulcer right lateral abdominal wall. History of Wound: Surgery 09/21/18 - Surgical preparation right lateral abdominal wall massive panniculus with excisional debridement skin and subcutaneous tissue for necrotizing soft tissue infection and panniculectomy (858 cm2). Wound care -Theraskin #12 application. She received a donated theraskin in hopes that it would completely heal her ulcer. Epifix #9 applied today. Prealbumin from 09/22/18 was 12.0. Encouraged nutritional supplementation with protein to help the healing process. With the right side of her abdomen improving, she has noticed the left abdominal wall developing increasing firmness and swelling and dependent edema. Progress of Wound: Stable - Physical Exam Vital Signs Temp Pulse Resp BP 98.2 F 89 22 H 160/94 H 06/14/19 12:58 06/14/19 12:58 06/14/19 12:58 06/14/19 12:58 General: Alert, Oriented x3, Cooperative HEENT: Atraumatic Oral: Moist Mucosa Lungs: Normal air movement Cardiovascular: Regular rate Extremities: Capillary Refill Less than 3 Seconds, Edema, Peripheral Pulses Normal Skin: Ulcer/ Wound - right abdominal ulcer Wound Measurements and Assessment WC - Nurse 1 - General Ulcer Measurement Start: 06/07/19 13:13 Freq: Status: Active Protocol: Activity Type Activity Date Activity User E-Sign Co-Sign Detail Recorded Client Recorded Date Recorded By Document 06/14/19 12:58 DL [id number] 06/14/19 13:04 DL 06/14/19 12:58 Wound Center Nurse 1 [Ulcer Assessment] #2 right pannus -Current Size (cm) - Length 2.5 -Current Size (cm) - Width 5.1 -Current Size (cm) - Depth 0.1 -Total Square Cm 12.75 -Photo Taken No -Exudate Amt Small -Exudate Type Serosanguineous -Wound Margin Thickened -Granulation Amt Large (67-100%) -Granulation Quality [place] -Necrosis Amt Small (1-33%) -Necrotic Tissue Type Adherent Slough -Structure Exposed N/A -Texture (Lyly-wound Skin Appearance) Scarring -Moisture (Lyly-wound Skin Appearance No Abnormality ) -Color (Lyly-wound Skin Appearance) No Abnormality -Temperature (Lyly-wound Skin No Abnormality Appearance) (Pt Warm) -Tenderness on Palpation (Lyly-wound No Skin Appearance) -Ulcer Cleansing Wound Cleanser -Foul Odor after Cleansing No -Anesthetic Used 5% Lidocaine Gel WC - Nurse 2 - General Ulcer CM Notes Start: 06/07/19 13:13 Freq: Status: Active Protocol: Activity Type Activity Date Activity User E-Sign Co-Sign Detail Recorded Client Recorded Date Recorded By Document 06/14/19 13:11 [id number] 06/14/19 13:19 06/14/19 13:11 Wound Center Nurse 2 [Procedure/Treatment] -Time 13:17 -Correct Patient Yes -Correct Side, Site, Position Yes -Correct Procedure Yes -Procedure Performed Yes -Type of Procedure Debridement -Clinical Debridement Subcutaneous -Post Debridement Size (cm) - Length 2.6 -Post Debridement Size (cm) - Width 5.4 -Post Debridement Size (cm) - Depth 0.3 -Total Square Cm 14.04 -Wound/Ulcer Outcome Not Healed -Ulcer Cleansing Rinsed/ Irrigated with Saline -Foul Odor after Cleansing No -Bioengineered Tissue Yes -Type of bioengineered Tissue EPIFIX -Expiration Date 11/05/23 -Product Lot Number [id number] -Percent Used 100 -Saline Lot Number [id number] -Bleeding Controlled with Pressure -Offloading No -Treatment Response Procedure Tolerated Well [See Physician Procedure note for Specifics] Pain Scale: 0-10 Numeric [Pain] -Is Patient Pain Free? Yes Musculoskeletal: No Tenderness to Palpation of Joints or Extremities Lymphatic: No Cervical, Supraclavicular, or Inguinal Adenopathy Neurological: Neuro grossly intact Psych/Mental Status: Normal Affect, Appropriate Debridement Note Post-Debridement Measurements/Treatment WC - Nurse 2 - General Ulcer CM Notes Start: 06/07/19 13:13 Freq: Status: Active Protocol: Activity Type Activity Date Activity User E-Sign Co-Sign Detail Recorded Client Recorded Date Recorded By Document 06/07/19 13:40 [id number] 06/07/19 13:42 Document 06/14/19 13:11 [id number] 06/14/19 13:19 06/07/19 06/14/19 13:40 13:11 Wound Center Nurse 2 #2 right pannus -Time 13:40 13:17 -Correct Patient Yes Yes -Correct Side, Site, Position Yes Yes -Correct Procedure Yes Yes -Procedure Performed Yes Yes -Type of Procedure Debridement Debridement -Clinical Debridement Subcutaneous Subcutaneous -Post Debridement Size (cm) - Length 2.5 2.6 -Post Debridement Size (cm) - Width 6 5.4 -Post Debridement Size (cm) - Depth 0.3 0.3 -Total Square Cm 15.0 14.04 -Wound/Ulcer Outcome Not Healed Not Healed -Ulcer Cleansing Rinsed/ Rinsed/ Irrigated with Irrigated with Saline Saline -Foul Odor after Cleansing No No -Bioengineered Tissue No Yes -Type of bioengineered Tissue EPIFIX -Expiration Date 11/05/23 -Product Lot Number [id number] -Percent Used 100 -Saline Lot Number [id number] -Bleeding Controlled with Pressure Pressure -Offloading No No -Treatment Response Procedure Procedure Tolerated Well Tolerated Well Pain Scale: 0-10 Numeric Is Patient Pain Free? Yes Yes Wound debrided: right abdominal ulcer Laterality: Right Type of Debridement: Excisional debridement Anesthesia Used: 4% Lidocaine Solution, 5% Lidocaine Gel Depth: Down to and including healthy tissue, in the subcutaneous layer Percentage of wound debrided: 100 Instrument Used: 7mm curette Tissue Removed: Subcutaneous tissue and slough Severity: Fat Layer Exposed Amount of bleeding with debridement: Mild Bleeding Controlled with: Pressure, Compression and gauze Patient tolerated procedure well Assessment/Plan Assessment: 1. 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 2. Massive abdominal panniculus with panniculitis. 3. Borderline diabetes. 4. Abdominal wall skin crease intertrigo. 5. Morbid obesity. 6. Incisional hernia. 7. s/p surgical preparation right lateral abdominal wall massive panniculus with excisional debridement skin and subcutaneous tissue for necrotizing soft tissue infection and panniculectomy (858 cm2). Plan: Epifix #9 applied today, 100% of the product was used. It was covered with wound veil and secured with steri strips. Patient tolerated the application well. Continue to increase protein intake and other abdominal pannus care. She is starting to have issues with increase pain and edema of the left pannus. She is interested in having some of that removed. Will schedule that surgery next month. Because of the difficulty we had with the last surgery with blood pressure, I will admit her the day before for IV hydration and to begin IV antibitiotics. Surgery will be under general anesthesia with a surgical observation overnight stay in the hospital. Because of issues with Home Health coverage, she may need to go to an [facility] initially for the VAC care along with IV antibiotics. Patient was informed of the risks and complications of the procedure including alternatives to surgery. These were discussed with her personally. She voices understanding and wishes to proceed. Follow-up one week. Code Visit 150xxx-152xx: [id number] Skin sub graft trnk/arm/leg
[2019-06-21 13:02] VITALS: BP 140/75; PULSE 68; RESP 18; TEMP 36.3; BMI 78.4
--- NOTE | 2019-06-21 14:28 | PN.PCM_ITS ---
(1) Abdominal panniculus, symptomatic Status: Chronic Current Visit: Yes Code(s): E65 - Localized adiposity (2) Skin ulcer of abdominal wall with fat layer exposed Status: Chronic Current Visit: Yes Code(s): L98.492 - Non-pressure chronic ulcer of skin of other sites with fat layer exposed (3) Obesity, Class III, BMI 40-49.9 (morbid obesity) Status: Chronic Current Visit: Yes Code(s): E66.01 - Morbid (severe) obesity due to excess calories (4) Prediabetes Status: Chronic Current Visit: Yes Code(s): R73.03 - Prediabetes Type of Wound Date of Service: 06/21/19 Chief Complaint: Nonhealing ulcer right lateral abdominal wall. History of Wound: Surgery 09/21/18 - Surgical preparation right lateral abdominal wall massive panniculus with excisional debridement skin and subcutaneous tissue for necrotizing soft tissue infection and panniculectomy (858 cm2). Wound care -Theraskin #12 application. She received a donated theraskin in hopes that it would completely heal her ulcer. Epifix #10 applied today. Prealbumin from 09/22/18 was 12.0. Encouraged nutritional supplementation with protein to help the healing process. With the right side of her abdomen improving, she has noticed the left abdominal wall developing increasing firmness and swelling and dependent edema. Progress of Wound: Stable - Physical Exam Vital Signs Temp Pulse Resp BP 97.3 F L 68 18 140/75 H 06/21/19 13:02 06/21/19 13:02 06/21/19 13:02 06/21/19 13:02 General: Alert, Oriented x3, Cooperative HEENT: Atraumatic Oral: Moist Mucosa Lungs: Normal air movement Cardiovascular: Regular rate Abdomen: Obese Extremities: Capillary Refill Less than 3 Seconds Skin: Ulcer/ Wound - Right abdominal ulcer Wound Measurements and Assessment WC - Nurse 1 - General Ulcer Measurement Start: 06/07/19 13:13 Freq: Status: Active Protocol: Activity Type Activity Date Activity User E-Sign Co-Sign Detail Recorded Client Recorded Date Recorded By Document 06/21/19 13:02 DL [id number] 06/21/19 13:08 DL 06/21/19 13:02 Wound Center Nurse 1 [Ulcer Assessment] #2 right pannus -Current Size (cm) - Length 2.3 -Current Size (cm) - Width 5.4 -Current Size (cm) - Depth 0.3 -Total Square Cm 12.42 -Photo Taken No -Exudate Amt Small -Exudate Type Serosanguineous -Wound Margin Thickened -Granulation Quality [place],Red -Necrosis Amt Small (1-33%) -Necrotic Tissue Type Adherent Slough -Structure Exposed N/A -Texture (Lyly-wound Skin Appearance) Excoriation, Scarring -Moisture (Lyly-wound Skin Appearance Dry/Scaly ) -Color (Lyly-wound Skin Appearance) No Abnormality -Temperature (Lyly-wound Skin No Abnormality Appearance) (Pt Warm) -Tenderness on Palpation (Lyly-wound No Skin Appearance) -Ulcer Cleansing Wound Cleanser -Foul Odor after Cleansing No -Anesthetic Used 4% Lidocaine Solution WC - Nurse 2 - General Ulcer CM Notes Start: 06/07/19 13:13 Freq: Status: Active Protocol: Activity Type Activity Date Activity User E-Sign Co-Sign Detail Recorded Client Recorded Date Recorded By Document 06/21/19 13:35 [id number] 06/21/19 13:36 06/21/19 13:35 Wound Center Nurse 2 [Procedure/Treatment] -Time 13:35 -Correct Patient Yes -Correct Side, Site, Position Yes -Correct Procedure Yes -Procedure Performed Yes -Type of Procedure Debridement -Clinical Debridement Subcutaneous -Post Debridement Size (cm) - Length 2.5 -Post Debridement Size (cm) - Width 5.5 -Post Debridement Size (cm) - Depth 0.3 -Total Square Cm 13.75 -Wound/Ulcer Outcome Not Healed -Ulcer Cleansing Rinsed/ Irrigated with Saline -Foul Odor after Cleansing No -Bioengineered Tissue Yes -Type of bioengineered Tissue EPIFIX -Expiration Date 11/05/23 -Product Lot Number [id number] -Percent Used 100 -Saline Lot Number [id number] -Bleeding Controlled with Pressure -Offloading No -Treatment Response Procedure Tolerated Well [See Physician Procedure note for Specifics] Pain Scale: 0-10 Numeric [Pain] -Is Patient Pain Free? Yes Musculoskeletal: No Tenderness to Palpation of Joints or Extremities Neurological: Neuro grossly intact Psych/Mental Status: Normal Affect, Appropriate Debridement Note Post-Debridement Measurements/Treatment WC - Nurse 2 - General Ulcer CM Notes Start: 06/07/19 13:13 Freq: Status: Active Protocol: Activity Type Activity Date Activity User E-Sign Co-Sign Detail Recorded Client Recorded Date Recorded By Document 06/07/19 13:40 [id number] 06/07/19 13:42 Document 06/14/19 13:11 [id number] 06/14/19 13:19 Document 06/21/19 13:35 [id number] 06/21/19 13:36 06/07/19 06/14/19 06/21/19 13:40 13:11 13:35 Wound Center Nurse 2 #2 right pannus -Time 13:40 13:17 13:35 -Correct Patient Yes Yes Yes -Correct Side, Site, Position Yes Yes Yes -Correct Procedure Yes Yes Yes -Procedure Performed Yes Yes Yes -Type of Procedure Debridement Debridement Debridement -Clinical Debridement Subcutaneous Subcutaneous Subcutaneous -Post Debridement Size (cm) - Length 2.5 2.6 2.5 -Post Debridement Size (cm) - Width 6 5.4 5.5 -Post Debridement Size (cm) - Depth 0.3 0.3 0.3 -Total Square Cm 15.0 14.04 13.75 -Wound/Ulcer Outcome Not Healed Not Healed Not Healed -Ulcer Cleansing Rinsed/ Rinsed/ Rinsed/ Irrigated with Irrigated with Irrigated with Saline Saline Saline -Foul Odor after Cleansing No No No -Bioengineered Tissue No Yes Yes -Type of bioengineered Tissue EPIFIX EPIFIX -Expiration Date 11/05/23 11/05/23 -Product Lot Number [id number] -Percent Used 100 100 -Saline Lot Number [id number] -Bleeding Controlled with Pressure Pressure Pressure -Offloading No No No -Treatment Response Procedure Procedure Procedure Tolerated Well Tolerated Well Tolerated Well Pain Scale: 0-10 Numeric Is Patient Pain Free? Yes Yes Yes Wound debrided: Abdominal ulcer Laterality: Right Type of Debridement: Excisional debridement Anesthesia Used: 4% Lidocaine Solution, 5% Lidocaine Gel Depth: Down to and including healthy tissue, in the subcutaneous layer Percentage of wound debrided: 100 Instrument Used: 7mm curette Tissue Removed: Subcutaneous tissue and slough Severity: Fat Layer Exposed Amount of bleeding with debridement: Moderate Bleeding Controlled with: Pressure, Compression and gauze Patient tolerated procedure well Assessment/Plan Active Problems (Last Reviewed 11/19/18 @ 10:25 by Angela Song) Abdominal panniculus, symptomatic (Chronic) Skin ulcer of abdominal wall with fat layer exposed (Chronic) Obesity, Class III, BMI 40-49.9 (morbid obesity) (Chronic) Prediabetes (Chronic) Assessment: 1. 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 2. Massive abdominal panniculus with panniculitis. 3. Borderline diabetes. 4. Abdominal wall skin crease intertrigo. 5. Morbid obesity. 6. Incisional hernia. 7. s/p surgical preparation right lateral abdominal wall massive panniculus with excisional debridement skin and subcutaneous tissue for necrotizing soft tissue infection and panniculectomy (858 cm2). Plan: Epifix #10 applied today, 100% of the product was used. It was covered with wound veil and secured with steri strips. Patient tolerated the application well. Continue to increase protein intake and other abdominal pannus care. She is starting to have issues with increase pain and edema of the left pannus. She is interested in having some of that removed. Will schedule that surgery next month. Because of the difficulty we had with the last surgery with blood pressure, I will admit her the day before for IV hydration and to begin IV antibitiotics. Surgery will be under general anesthesia with a surgical observation overnight stay in the hospital. Because of issues with Home Health coverage, she may need to go to an [facility] initially for the VAC care along with IV antibiotics. Patient was informed of the risks and complications of the procedure including alternatives to surgery. These were discussed with her personally. She voices understanding and wishes to proceed. Follow-up one week. Code Visit [id number]: [id number] Skin sub graft trnk/arm/leg
[2019-06-28 14:12] VITALS: BP 129/89; PULSE 84; RESP 18; TEMP 36.6; BMI 78.4
--- NOTE | 2019-06-28 15:12 | PCM.WC.PN ---
(1) Abdominal panniculus, symptomatic Status: Chronic Current Visit: Yes Code(s): E65 - Localized adiposity (2) Skin ulcer of abdominal wall with fat layer exposed Status: Chronic Current Visit: Yes Code(s): L98.492 - Non-pressure chronic ulcer of skin of other sites with fat layer exposed (3) Obesity, Class III, BMI 40-49.9 (morbid obesity) Status: Chronic Current Visit: Yes Code(s): E66.01 - Morbid (severe) obesity due to excess calories (4) Prediabetes Status: Chronic Current Visit: Yes Code(s): R73.03 - Prediabetes Type of Wound Date of Service: 06/28/19 Chief Complaint: Nonhealing ulcer right lateral abdominal wall. History of Wound: Surgery 09/21/18 - Surgical preparation right lateral abdominal wall massive panniculus with excisional debridement skin and subcutaneous tissue for necrotizing soft tissue infection and panniculectomy (858 cm2). Wound care -Theraskin #12 application. She received a donated theraskin in hopes that it would completely heal her ulcer. She has had Epifix #10 application. Will start Dakins solution 1/4 strength daily. Prealbumin from 09/22/18 was 12.0. Encouraged nutritional supplementation with protein to help the healing process. With the right side of her abdomen improving, she has noticed the left abdominal wall developing increasing firmness and swelling and dependent edema. Progress of Wound: Stable - Physical Exam Vital Signs Temp Pulse Resp BP 97.8 F 84 18 129/89 H 06/28/19 14:12 06/28/19 14:12 06/28/19 14:12 06/28/19 14:12 General: Alert, Oriented x3, Cooperative HEENT: Atraumatic Oral: Moist Mucosa Lungs: Normal air movement Cardiovascular: Regular rate Abdomen: Obese Extremities: Capillary Refill Less than 3 Seconds, Edema, Peripheral Pulses Normal Skin: Ulcer/ Wound - Right lower abdomen/pannus Wound Measurements and Assessment WC - Nurse 1 - General Ulcer Measurement Start: 06/07/19 13:13 Freq: Status: Active Protocol: Activity Type Activity Date Activity User E-Sign Co-Sign Detail Recorded Client Recorded Date Recorded By Document 06/28/19 14:12 [id number] 06/28/19 14:15 06/28/19 14:12 Wound Center Nurse 1 [Ulcer Assessment] #2 right pannus -Combined with other wound No -Current Size (cm) - Length 2.3 -Current Size (cm) - Width 5.4 -Current Size (cm) - Depth 0.2 -Total Square Cm 12.42 -Photo Taken No -Undermining/Tunneling No -Circular Undermining No -Classification - Thickness Partial Thickness -Change in Wound Grade/Stage No Query Text:If change please identify the Stage/Grade in the comment (ie. S2 G3) -Exudate Amt Large -Exudate Type Serous -Wound Margin Distinct, Outline Attached -Granulation Amt Medium (34-66%) -Granulation Quality [place] -Necrotic Tissue Type Adherent Slough -Structure Exposed None/Limited to Skin Breakdown -Texture (Lyly-wound Skin Appearance) Assessed,Callus -Moisture (Lyly-wound Skin Appearance No Abnormality, ) Assessed -Color (Lyly-wound Skin Appearance) Assessed, Erythema WC - Nurse 2 - General Ulcer CM Notes Start: 06/07/19 13:13 Freq: Status: Active Protocol: Activity Type Activity Date Activity User E-Sign Co-Sign Detail Recorded Client Recorded Date Recorded By Document 06/28/19 14:34 [id number] 06/28/19 14:40 06/28/19 14:34 Wound Center Nurse 2 [Procedure/Treatment] -Time 14:35 -Correct Patient Yes -Correct Side, Site, Position Yes -Correct Procedure Yes -Procedure Performed Yes -Type of Procedure Debridement -Clinical Debridement Subcutaneous -Post Debridement Size (cm) - Length 3.0 -Post Debridement Size (cm) - Width 5.5 -Post Debridement Size (cm) - Depth 0.3 -Total Square Cm 16.50 -Wound/Ulcer Outcome Not Healed -Ulcer Cleansing Rinsed/ Irrigated with Saline -Foul Odor after Cleansing No -Bioengineered Tissue No -Bleeding Controlled with Pressure -Offloading No -Treatment Response Procedure Tolerated Well [See Physician Procedure note for Specifics] Pain Scale: 0-10 Numeric [Pain] -Is Patient Pain Free? Yes Musculoskeletal: No Tenderness to Palpation of Joints or Extremities Neurological: Neuro grossly intact Psych/Mental Status: Normal Affect, Appropriate Debridement Note Post-Debridement Measurements/Treatment WC - Nurse 2 - General Ulcer CM Notes Start: 06/07/19 13:13 Freq: Status: Active Protocol: Activity Type Activity Date Activity User E-Sign Co-Sign Detail Recorded Client Recorded Date Recorded By Document 06/07/19 13:40 [id number] 06/07/19 13:42 Document 06/14/19 13:11 [id number] 06/14/19 13:19 Document 06/21/19 13:35 [id number] 06/21/19 13:36 Document 06/28/19 14:34 [id number] 06/28/19 14:40 06/07/19 06/14/19 06/21/19 13:40 13:11 13:35 Wound Center Nurse 2 #2 right pannus -Time 13:40 13:17 13:35 -Correct Patient Yes Yes Yes -Correct Side, Site, Position Yes Yes Yes -Correct Procedure Yes Yes Yes -Procedure Performed Yes Yes Yes -Type of Procedure Debridement Debridement Debridement -Clinical Debridement Subcutaneous Subcutaneous Subcutaneous -Post Debridement Size (cm) - Length 2.5 2.6 2.5 -Post Debridement Size (cm) - Width 6 5.4 5.5 -Post Debridement Size (cm) - Depth 0.3 0.3 0.3 -Total Square Cm 15.0 14.04 13.75 -Wound/Ulcer Outcome Not Healed Not Healed Not Healed -Ulcer Cleansing Rinsed/ Rinsed/ Rinsed/ Irrigated with Irrigated with Irrigated with Saline Saline Saline -Foul Odor after Cleansing No No No -Bioengineered Tissue No Yes Yes -Type of bioengineered Tissue EPIFIX EPIFIX -Expiration Date 11/05/23 11/05/23 -Product Lot Number [id number] -Percent Used 100 100 -Saline Lot Number [id number] -Bleeding Controlled with Pressure Pressure Pressure -Offloading No No No -Treatment Response Procedure Procedure Procedure Tolerated Well Tolerated Well Tolerated Well Pain Scale: 0-10 Numeric Is Patient Pain Free? Yes Yes Yes 06/28/19 14:34 Wound Center Nurse 2 #2 right pannus -Time 14:35 -Correct Patient Yes -Correct Side, Site, Position Yes -Correct Procedure Yes -Procedure Performed Yes -Type of Procedure Debridement -Clinical Debridement Subcutaneous -Post Debridement Size (cm) - Length 3.0 -Post Debridement Size (cm) - Width 5.5 -Post Debridement Size (cm) - Depth 0.3 -Total Square Cm 16.50 -Wound/Ulcer Outcome Not Healed -Ulcer Cleansing Rinsed/ Irrigated with Saline -Foul Odor after Cleansing No -Bioengineered Tissue No -Type of bioengineered Tissue -Expiration Date -Product Lot Number -Percent Used -Saline Lot Number -Bleeding Controlled with Pressure -Offloading No -Treatment Response Procedure Tolerated Well Pain Scale: 0-10 Numeric Is Patient Pain Free? Yes Wound debrided: lower abdomen Laterality: Right Type of Debridement: Excisional debridement Anesthesia Used: 4% Lidocaine Solution, 5% Lidocaine Gel Depth: Down to and including healthy tissue, in the subcutaneous layer Percentage of wound debrided: 100 Instrument Used: 7mm curette Tissue Removed: Subcutaneous tissue and slough Severity: Fat Layer Exposed Amount of bleeding with debridement: Moderate Bleeding Controlled with: Pressure, Compression and gauze Patient tolerated procedure well Edges have started to curve in, more aggressive debridement of the edges completed today. Assessment/Plan Active Problems (Last Reviewed 11/19/18 @ 10:25 by Angela Song) Abdominal panniculus, symptomatic (Chronic) Skin ulcer of abdominal wall with fat layer exposed (Chronic) Obesity, Class III, BMI 40-49.9 (morbid obesity) (Chronic) Prediabetes (Chronic) Assessment: 1. 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 2. Massive abdominal panniculus with panniculitis. 3. Borderline diabetes. 4. Abdominal wall skin crease intertrigo. 5. Morbid obesity. 6. Incisional hernia. 7. s/p surgical preparation right lateral abdominal wall massive panniculus with excisional debridement skin and subcutaneous tissue for necrotizing soft tissue infection and panniculectomy (858 cm2). Plan: Epifix #10 completed last week. Agressive debridement of the edges done today because they are curving in, this will hopefully help with the healing process. She will do daily Dakins 1/4 strength solution. Continue to increase protein intake and other abdominal pannus care. She is starting to have issues with increase pain and edema of the left pannus. She is interested in having some of that removed. Will schedule that surgery next month. Because of the difficulty we had with the last surgery with blood pressure, I will admit her the day before for IV hydration and to begin IV antibitiotics. Surgery will be under general anesthesia with a surgical observation overnight stay in the hospital. Because of issues with Home Health coverage, she may need to go to an ECF initially for the VAC care along with IV antibiotics. Patient was informed of the risks and complications of the procedure including alternatives to surgery. These were discussed with her personally. She voices understanding and wishes to proceed. Follow-up one week. Code Visit 111xxx-113xx: [id number] Josephine subq tissue 20 sq cm/<
== END 2019-07-04 23:59 ==
LOC: WC 14:00
PROVIDERS: Family Provider Student in an Organized Health Care Education/Training Program; PCP Student in an Organized Health Care Education/Training Program; Visit Provider Nurse Practitioner Family
DX: L98.492 Non-pressure chronic ulcer of skin of other sites with fat layer exposed (principal); R73.03 Prediabetes; E65 Localized adiposity; Z71.3 Dietary counseling and surveillance; E66.01 Morbid (severe) obesity due to excess calories; R60.0 Localized edema; L30.4 Erythema intertrigo; K43.2 Incisional hernia without obstruction or gangrene; M79.3 Panniculitis, unspecified
CPT/HCPCS: 11042; 15271; Q4186

== ENCOUNTER 2019-08-01 09:15 | Outpatient (RCR) | payer MEDICAID, SELFPAY ==
[2019-07-05 00:36] VITALS: BP 129/89; PULSE 84; RESP 18; TEMP 36.6
[2019-07-05 13:33] VITALS: BP 138/90; PULSE 92; RESP 16; TEMP 36.3; BMI 78.4
--- NOTE | 2019-07-05 14:31 | PN.PCM_ITS ---
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 Status: Chronic Current Visit: Yes Code(s): L98.492 - Non-pressure chronic ulcer of skin of other sites with fat layer exposed (2) Abdominal panniculus, symptomatic Status: Chronic Current Visit: Yes Code(s): E65 - Localized adiposity (3) Anxiety and depression Status: Chronic Current Visit: Yes Code(s): F41.9 - Anxiety disorder, unspecified; F32.9 - Major depressive disorder, single episode, unspecified (4) Obesity, Class III, BMI 40-49.9 (morbid obesity) Status: Chronic Current Visit: Yes Code(s): E66.01 - Morbid (severe) obesity due to excess calories Type of Wound Date of Service: 07/05/19 Chief Complaint: Nonhealing ulcer right lateral abdominal wall. History of Wound: Surgery 09/21/18 - Surgical preparation right lateral abdominal wall massive panniculus with excisional debridement skin and subcutaneous tissue for necrotizing soft tissue infection and panniculectomy (858 cm2). Wound care -Theraskin #12 application. She received a donated theraskin in hopes that it would completely heal her ulcer. She has had Epifix #10 application. Wound care now is Dakins solution 1/4 strength daily. Prealbumin from 09/22/18 was 12.0. Encouraged nutritional supplementation with protein to help the healing process. With the right side of her abdomen improving, she has noticed the left abdominal wall developing increasing firmness and swelling and dependent edema. Progress of Wound: Stable - Physical Exam Vital Signs Temp Pulse Resp BP 97.3 F L 92 16 138/90 H 07/05/19 13:33 07/05/19 13:33 07/05/19 13:33 07/05/19 13:33 General: Alert, Oriented x3, Cooperative HEENT: Atraumatic Oral: Moist Mucosa Lungs: Normal air movement Cardiovascular: Regular rate Abdomen: Soft, Obese Extremities: Capillary Refill Less than 3 Seconds, Edema Skin: Ulcer/ Wound - Right lower abdominal ulcer Wound Measurements and Assessment WC - Nurse 1 - General Ulcer Measurement Start: 07/05/19 13:32 Freq: Status: Active Protocol: Activity Type Activity Date Activity User E-Sign Co-Sign Detail Recorded Client Recorded Date Recorded By Document 07/05/19 13:33 [facility] [id number] 07/05/19 13:38 BMF 07/05/19 13:33 Wound Center Nurse 1 [Ulcer Assessment] #2 right pannus -Combined with other wound No -Current Size (cm) - Length 2.8 -Current Size (cm) - Width 5.5 -Current Size (cm) - Depth 0.3 -Total Square Cm 15.40 -Photo Taken No -Epithelialization Small 1-33% -Tunneling No -Undermining/Tunneling No -Circular Undermining No -Exudate Amt Small -Exudate Type Serous -Wound Margin Distinct, Outline Attached -Granulation Amt Large (67-100%) -Granulation Quality Red -Slough/Fibrin No -Necrosis Amt None Present (0 %) -Texture (Lyly-wound Skin Appearance) Assessed, Scarring -Moisture (Lyly-wound Skin Appearance Assessed ) -Color (Lyly-wound Skin Appearance) Assessed -Temperature (Lyly-wound Skin No Abnormality Appearance) (Pt Warm) -Tenderness on Palpation (Lyly-wound No Skin Appearance) -Ulcer Cleansing Rinsed/ Irrigated with Saline -Foul Odor after Cleansing No -Anesthetic Used 4% Lidocaine Solution WC - Nurse 2 - General Ulcer CM Notes Start: 07/05/19 13:32 Freq: Status: Active Protocol: Activity Type Activity Date Activity User E-Sign Co-Sign Detail Recorded Client Recorded Date Recorded By Document 07/05/19 14:14 LOIS [id number] 07/05/19 14:15 07/05/19 14:14 Wound Center Nurse 2 [Procedure/Treatment] -Time 14:15 -Correct Patient Yes -Correct Side, Site, Position Yes -Correct Procedure Yes -Procedure Performed Yes -Type of Procedure Debridement -Clinical Debridement Subcutaneous -Post Debridement Size (cm) - Length 3.0 -Post Debridement Size (cm) - Width 5.5 -Post Debridement Size (cm) - Depth 0.3 -Total Square Cm 16.50 -Wound/Ulcer Outcome Not Healed -Ulcer Cleansing Rinsed/ Irrigated with Saline -Foul Odor after Cleansing No -Bioengineered Tissue No -Bleeding Controlled with Pressure -Offloading No -Treatment Response Procedure Tolerated Well [See Physician Procedure note for Specifics] Pain Scale: 0-10 Numeric [Pain] -Is Patient Pain Free? Yes Musculoskeletal: No Tenderness to Palpation of Joints or Extremities Lymphatic: No Cervical, Supraclavicular, or Inguinal Adenopathy Neurological: Neuro grossly intact Psych/Mental Status: Normal Affect, Appropriate Debridement Note Post-Debridement Measurements/Treatment WC - Nurse 2 - General Ulcer CM Notes Start: 07/05/19 13:32 Freq: Status: Active Protocol: Activity Type Activity Date Activity User E-Sign Co-Sign Detail Recorded Client Recorded Date Recorded By Document 07/05/19 14:14 LOIS [id number] 07/05/19 14:15 LOIS 07/05/19 14:14 Wound Center Nurse 2 #2 right pannus -Time 14:15 -Correct Patient Yes -Correct Side, Site, Position Yes -Correct Procedure Yes -Procedure Performed Yes -Type of Procedure Debridement -Clinical Debridement Subcutaneous -Post Debridement Size (cm) - Length 3.0 -Post Debridement Size (cm) - Width 5.5 -Post Debridement Size (cm) - Depth 0.3 -Total Square Cm 16.50 -Wound/Ulcer Outcome Not Healed -Ulcer Cleansing Rinsed/ Irrigated with Saline -Foul Odor after Cleansing No -Bioengineered Tissue No -Bleeding Controlled with Pressure -Offloading No -Treatment Response Procedure Tolerated Well Pain Scale: 0-10 Numeric Is Patient Pain Free? Yes Wound debrided: Right lower abdominal ulcer Laterality: Right Type of Debridement: Excisional debridement Anesthesia Used: 4% Lidocaine Solution, 5% Lidocaine Gel Depth: Down to and including healthy tissue, in the subcutaneous layer Percentage of wound debrided: 100 Instrument Used: 7mm curette Tissue Removed: Subcutaneous tissue and slough Severity: Fat Layer Exposed Amount of bleeding with debridement: Moderate Bleeding Controlled with: Pressure, Compression and gauze Patient tolerated procedure well Assessment/Plan Active Problems (Last Reviewed 11/19/18 @ 10:25 by Angela Song) Abdominal panniculus, symptomatic (Chronic) Skin ulcer of abdominal wall with fat layer exposed (Chronic) Anxiety and depression (Chronic) Obesity, Class III, BMI 40-49.9 (morbid obesity) (Chronic) Assessment: 1. 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 2. Massive abdominal panniculus with panniculitis. 3. Borderline diabetes. 4. Abdominal wall skin crease intertrigo. 5. Morbid obesity. 6. Incisional hernia. 7. s/p surgical preparation right lateral abdominal wall massive panniculus with excisional debridement skin and subcutaneous tissue for necrotizing soft tissue infection and panniculectomy (858 cm2). Plan: Epifix #10. She will do daily Dakins 1/4 strength solution. Continue to increase protein intake and other abdominal pannus care. She is starting to have issues with increase pain and edema of the left pannus. She is interested in having some of that removed. Will schedule that surgery next month. Because of the difficulty we had with the last surgery with blood pressure, I will admit her the day before for IV hydration and to begin IV antibitiotics. Surgery will be under general anesthesia with a surgical observation overnight stay in the hospital. Because of issues with Home Health coverage, she may need to go to an [facility] initially for the VAC care along with IV antibiotics. Patient was informed of the risks and complications of the procedure including alternatives to surgery. These were discussed with her personally. She voices understanding and wishes to proceed. Follow-up one week. Code Visit 111xxx-113xx: [id number] Josephine subq tissue 20 sq cm/<
[2019-07-12 13:20] VITALS: BP 152/103; PULSE 110; RESP 18; TEMP 36.7; BMI 78.4
--- NOTE | 2019-07-12 15:33 | PCM.WC.PN ---
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 Status: Chronic Code(s): L98.492 - Non-pressure chronic ulcer of skin of other sites with fat layer exposed (2) Abdominal panniculus, symptomatic Status: Chronic Code(s): E65 - Localized adiposity (3) Anxiety and depression Status: Chronic Code(s): F41.9 - Anxiety disorder, unspecified; F32.9 - Major depressive disorder, single episode, unspecified (4) Obesity, Class III, BMI 40-49.9 (morbid obesity) Status: Chronic Code(s): E66.01 - Morbid (severe) obesity due to excess calories Type of Wound Date of Service: 07/12/19 Chief Complaint: Nonhealing ulcer right lateral abdominal wall. History of Wound: Surgery 09/21/18 - Surgical preparation right lateral abdominal wall massive panniculus with excisional debridement skin and subcutaneous tissue for necrotizing soft tissue infection and panniculectomy (858 cm2). Wound care -Theraskin #12 application. She received a donated theraskin in hopes that it would completely heal her ulcer. She has had Epifix #10 application. She was using Dakins solution for wound care. Wound care will start Caitlyn. Prealbumin from 09/22/18 was 12.0. Encouraged nutritional supplementation with protein to help the healing process. With the right side of her abdomen improving, she has noticed the left abdominal wall developing increasing firmness and swelling and dependent edema. Progress of Wound: Stable - Physical Exam Vital Signs Temp Pulse Resp BP 98.0 F 110 H 18 152/103 H 07/12/19 13:20 07/12/19 13:20 07/12/19 13:20 07/12/19 13:20 General: Alert, Oriented x3, Cooperative HEENT: Atraumatic Oral: Moist Mucosa Lungs: Normal air movement Cardiovascular: Regular rate Abdomen: Obese Extremities: Capillary Refill Less than 3 Seconds Skin: Ulcer/ Wound - right lower abdomen ulcer Wound Measurements and Assessment WC - Nurse 1 - General Ulcer Measurement Start: 07/05/19 13:32 Freq: Status: Active Protocol: Activity Type Activity Date Activity User E-Sign Co-Sign Detail Recorded Client Recorded Date Recorded By Document 07/12/19 13:20 MI [id number] 07/12/19 13:23 MT 07/12/19 13:20 Wound Center Nurse 1 [Ulcer Assessment] #2 right pannus -Current Size (cm) - Length 2.7 -Current Size (cm) - Width 5.5 -Current Size (cm) - Depth 0.3 -Total Square Cm 14.85 -Exudate Amt Small -Exudate Type Serosanguineous -Wound Margin Flat & Intact -Granulation Amt Large (67-100%) -Granulation Quality Pale,Mckenzie -Slough/Fibrin No -Texture (Lyly-wound Skin Appearance) Assessed -Moisture (Lyly-wound Skin Appearance Assessed, ) Maceration -Color (Lyly-wound Skin Appearance) Assessed -Temperature (Lyly-wound Skin No Abnormality Appearance) (Pt Warm) -Tenderness on Palpation (Lyly-wound No Skin Appearance) -Ulcer Cleansing Rinsed/ Irrigated with Saline -Foul Odor after Cleansing No -Anesthetic Used 4% Lidocaine Solution [Edema Assessment] -Lower Limb Edema Present NA WC - Nurse 2 - General Ulcer CM Notes Start: 07/05/19 13:32 Freq: Status: Active Protocol: Activity Type Activity Date Activity User E-Sign Co-Sign Detail Recorded Client Recorded Date Recorded By Document 07/12/19 13:41 [id number] 07/12/19 13:44 07/12/19 13:41 Wound Center Nurse 2 [Procedure/Treatment] #2 right pannus -Time 13:42 -Correct Patient Yes -Correct Side, Site, Position Yes -Correct Procedure Yes -Procedure Performed Yes -Type of Procedure Debridement -Clinical Debridement Subcutaneous -Post Debridement Size (cm) - Length 3.5 -Post Debridement Size (cm) - Width 5.7 -Post Debridement Size (cm) - Depth 0.3 -Total Square Cm 19.95 -Wound/Ulcer Outcome Not Healed -Ulcer Cleansing Rinsed/ Irrigated with Saline -Foul Odor after Cleansing No -Bioengineered Tissue No -Bleeding Controlled with Pressure -Offloading No -Treatment Response Procedure Tolerated Well [See Physician Procedure note for Specifics] Pain Scale: 0-10 Numeric [Pain] -Is Patient Pain Free? Yes Musculoskeletal: No Tenderness to Palpation of Joints or Extremities Neurological: Neuro grossly intact Psych/Mental Status: Normal Affect, Appropriate Debridement Note Post-Debridement Measurements/Treatment WC - Nurse 2 - General Ulcer CM Notes Start: 07/05/19 13:32 Freq: Status: Active Protocol: Activity Type Activity Date Activity User E-Sign Co-Sign Detail Recorded Client Recorded Date Recorded By Document 07/05/19 14:14 [id number] 07/05/19 14:15 Document 07/12/19 13:41 [id number] 07/12/19 13:44 07/05/19 07/12/19 14:14 13:41 Wound Center Nurse 2 #2 right pannus -Time 14:15 13:42 -Correct Patient Yes Yes -Correct Side, Site, Position Yes Yes -Correct Procedure Yes Yes -Procedure Performed Yes Yes -Type of Procedure Debridement Debridement -Clinical Debridement Subcutaneous Subcutaneous -Post Debridement Size (cm) - Length 3.0 3.5 -Post Debridement Size (cm) - Width 5.5 5.7 -Post Debridement Size (cm) - Depth 0.3 0.3 -Total Square Cm 16.50 19.95 -Wound/Ulcer Outcome Not Healed Not Healed -Ulcer Cleansing Rinsed/ Rinsed/ Irrigated with Irrigated with Saline Saline -Foul Odor after Cleansing No No -Bioengineered Tissue No No -Bleeding Controlled with Pressure Pressure -Offloading No No -Treatment Response Procedure Procedure Tolerated Well Tolerated Well Pain Scale: 0-10 Numeric Is Patient Pain Free? Yes Yes Wound debrided: lower abdomen ulcer Laterality: Right Type of Debridement: Excisional debridement Anesthesia Used: 4% Lidocaine Solution, 5% Lidocaine Gel Depth: Down to and including healthy tissue, in the subcutaneous layer Percentage of wound debrided: 100 Instrument Used: 7mm curette Tissue Removed: subcutaneous tissue and slough Severity: Fat Layer Exposed Amount of bleeding with debridement: Moderate Bleeding Controlled with: Pressure, Compression and gauze Patient tolerated procedure well Assessment/Plan Assessment: 1. 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 2. Massive abdominal panniculus with panniculitis. 3. Borderline diabetes. 4. Abdominal wall skin crease intertrigo. 5. Morbid obesity. 6. Incisional hernia. 7. s/p surgical preparation right lateral abdominal wall massive panniculus with excisional debridement skin and subcutaneous tissue for necrotizing soft tissue infection and panniculectomy (858 cm2). Plan: Epifix #10. Stop daily Dakins 1/4 strength solution. Start daily Caitlyn dressing changes. The base of ulcer is very fibrous even with debridement. Continue to increase protein intake and other abdominal pannus care. She is starting to have issues with increase pain and edema of the left pannus. She is interested in having some of that removed. Will schedule that surgery next month. Because of the difficulty we had with the last surgery with blood pressure, I will admit her the day before for IV hydration and to begin IV antibitiotics. Surgery will be under general anesthesia with a surgical observation overnight stay in the hospital. Because of issues with Home Health coverage, she may need to go to an [facility] initially for the VAC care along with IV antibiotics. Patient was informed of the risks and complications of the procedure including alternatives to surgery. These were discussed with her personally. She voices understanding and wishes to proceed only if she may go home after surgery. Follow-up one week. Code Visit 111xxx-113xx: [id number] Josephine subq tissue 20 sq cm/<
[2019-07-18 09:04] VITALS: BP 147/86; PULSE 78; RESP 18; TEMP 36.6; BMI 78.4
--- NOTE | 2019-07-18 09:28 | PN.PCM_ITS ---
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 Status: Chronic Code(s): L98.492 - Non-pressure chronic ulcer of skin of other sites with fat layer exposed (2) Abdominal panniculus, symptomatic Status: Chronic Code(s): E65 - Localized adiposity (3) Anxiety and depression Status: Chronic Code(s): F41.9 - Anxiety disorder, unspecified; F32.9 - Major depressive disorder, single episode, unspecified (4) Obesity, Class III, BMI 40-49.9 (morbid obesity) Status: Chronic Code(s): E66.01 - Morbid (severe) obesity due to excess calories Type of Wound Date of Service: 07/18/19 Chief Complaint: Nonhealing ulcer right lateral abdominal wall. History of Wound: Surgery 09/21/18 - Surgical preparation right lateral abdominal wall massive panniculus with excisional debridement skin and subcutaneous tissue for necrotizing soft tissue infection and panniculectomy (858 cm2). Wound care -Theraskin #12 application. She received a donated theraskin in hopes that it would completely heal her ulcer. She has had Epifix #10 application. She was using Dakins solution for wound care. Wound care will start Caitlyn (she hasn't received the Caitlyn so she has still been using the Dakins). Prealbumin from 09/22/18 was 12.0. Encouraged nutritional supplementation with protein to help the healing process. With the right side of her abdomen improving, she has noticed the left abdominal wall developing increasing firmness and swelling and dependent edema. Progress of Wound: Stable - Physical Exam Vital Signs Temp Pulse Resp BP 98 F 78 18 147/86 H 07/18/19 09:04 07/18/19 09:04 07/18/19 09:04 07/18/19 09:04 General: Alert, Oriented x3, Cooperative HEENT: Atraumatic Oral: Moist Mucosa Lungs: Normal air movement Cardiovascular: Regular rate Abdomen: Soft, Obese Extremities: Capillary Refill Less than 3 Seconds Skin: Ulcer/ Wound - Right abdomen ulcer Wound Measurements and Assessment WC - Nurse 1 - General Ulcer Measurement Start: 07/05/19 13:32 Freq: Status: Active Protocol: Activity Type Activity Date Activity User E-Sign Co-Sign Detail Recorded Client Recorded Date Recorded By Document 07/18/19 09:04 [facility] [id number] 07/18/19 09:08 [facility] 07/18/19 09:04 Wound Center Nurse 1 [Ulcer Assessment] #2 right pannus -Combined with other wound No -Current Size (cm) - Length 3.5 -Current Size (cm) - Width 5.5 -Current Size (cm) - Depth 0.6 -Total Square Cm 19.25 -Epithelialization Small 1-33% -Tunneling No -Undermining/Tunneling No -Circular Undermining No -Exudate Amt Small -Exudate Type Serosanguineous -Wound Margin Distinct, Outline Attached -Granulation Amt Large (67-100%) -Granulation Quality Pale,Red -Slough/Fibrin Yes -Necrosis Amt Small (1-33%) -Necrotic Tissue Type Adherent Slough -Texture (Lyly-wound Skin Appearance) Assessed, Scarring -Moisture (Lyly-wound Skin Appearance Assessed ) -Color (Lyly-wound Skin Appearance) Assessed -Temperature (Lyly-wound Skin No Abnormality Appearance) (Pt Warm) -Tenderness on Palpation (Lyly-wound No Skin Appearance) -Ulcer Cleansing Rinsed/ Irrigated with Saline -Foul Odor after Cleansing No -Anesthetic Used 4% Lidocaine Solution Musculoskeletal: No Tenderness to Palpation of Joints or Extremities Neurological: Neuro grossly intact Psych/Mental Status: Normal Affect, Appropriate Debridement Note Post-Debridement Measurements/Treatment WC - Nurse 2 - General Ulcer CM Notes Start: 07/05/19 13:32 Freq: Status: Active Protocol: Activity Type Activity Date Activity User E-Sign Co-Sign Detail Recorded Client Recorded Date Recorded By Document 07/05/19 14:14 [id number] 07/05/19 14:15 Document 07/12/19 13:41 [id number] 07/12/19 13:44 07/05/19 07/12/19 14:14 13:41 Wound Center Nurse 2 #2 right pannus -Time 14:15 13:42 -Correct Patient Yes Yes -Correct Side, Site, Position Yes Yes -Correct Procedure Yes Yes -Procedure Performed Yes Yes -Type of Procedure Debridement Debridement -Clinical Debridement Subcutaneous Subcutaneous -Post Debridement Size (cm) - Length 3.0 3.5 -Post Debridement Size (cm) - Width 5.5 5.7 -Post Debridement Size (cm) - Depth 0.3 0.3 -Total Square Cm 16.50 19.95 -Wound/Ulcer Outcome Not Healed Not Healed -Ulcer Cleansing Rinsed/ Rinsed/ Irrigated with Irrigated with Saline Saline -Foul Odor after Cleansing No No -Bioengineered Tissue No No -Bleeding Controlled with Pressure Pressure -Offloading No No -Treatment Response Procedure Procedure Tolerated Well Tolerated Well Pain Scale: 0-10 Numeric Is Patient Pain Free? Yes Yes Wound debrided: lower abdomen Laterality: Right Type of Debridement: Excisional debridement Anesthesia Used: 4% Lidocaine Solution, 5% Lidocaine Gel Depth: Down to and including healthy tissue, in the subcutaneous layer Percentage of wound debrided: 100 Instrument Used: 7mm curette Tissue Removed: Subcutaneous tissue and slough Severity: Fat Layer Exposed Amount of bleeding with debridement: Moderate Bleeding Controlled with: Pressure, Compression and gauze Patient tolerated procedure well Assessment/Plan Assessment: 1. 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 2. Massive abdominal panniculus with panniculitis. 3. Borderline diabetes. 4. Abdominal wall skin crease intertrigo. 5. Morbid obesity. 6. Incisional hernia. 7. s/p surgical preparation right lateral abdominal wall massive panniculus with excisional debridement skin and subcutaneous tissue for necrotizing soft tissue infection and panniculectomy (858 cm2). Plan: Epifix #10. Stop daily Dakins 1/4 strength solution. Start daily Caitlyn dressing changes (she has not received her Caitlyn and has been using the Dakins until she receives her shipment of Caitlyn). The base of ulcer is very fibrous even with debridement. Continue to increase protein intake and other abdominal pannus care. She is starting to have issues with increase pain and edema of the left pannus. She is interested in having some of that removed. Will schedule that surgery next month. Because of the difficulty we had with the last surgery with blood pressure, I will admit her the day before for IV hydration and to begin IV antibitiotics. Surgery will be under general anesthesia with a surgical observation overnight stay in the hospital. Because of issues with Home Health coverage, she may need to go to an [facility] initially for the VAC care along with IV antibiotics. Patient was informed of the risks and complications of the procedure including alternatives to surgery. These were discussed with her personally. She voices understanding and wishes to proceed only if she may go home after surgery. Follow-up one week. Code Visit 111xxx-113xx: [id number] Josephine subq tissue 20 sq cm/< Add On Codes: [id number] Josephine subq tissue add-on
[2019-07-25 09:14] VITALS: BP 154/86; PULSE 80; RESP 18; TEMP 36.2; BMI 78.4
--- NOTE | 2019-07-25 09:50 | PCM.WC.PN ---
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 Status: Chronic Current Visit: Yes Code(s): L98.492 - Non-pressure chronic ulcer of skin of other sites with fat layer exposed (2) Abdominal panniculus, symptomatic Status: Chronic Current Visit: Yes Code(s): E65 - Localized adiposity (3) Anxiety and depression Status: Chronic Current Visit: Yes Code(s): F41.9 - Anxiety disorder, unspecified; F32.9 - Major depressive disorder, single episode, unspecified (4) Obesity, Class III, BMI 40-49.9 (morbid obesity) Status: Chronic Current Visit: Yes Code(s): E66.01 - Morbid (severe) obesity due to excess calories Type of Wound Date of Service: 07/25/19 Chief Complaint: Nonhealing ulcer right lateral abdominal wall. History of Wound: Surgery 09/21/18 - Surgical preparation right lateral abdominal wall massive panniculus with excisional debridement skin and subcutaneous tissue for necrotizing soft tissue infection and panniculectomy (858 cm2). Wound care -Theraskin #12 application. She received a donated theraskin in hopes that it would completely heal her ulcer. She has had Epifix #10 application. She was using Dakins solution for wound care. Wound care now is Caitlyn. Prealbumin from 09/22/18 was 12.0. Encouraged nutritional supplementation with protein to help the healing process. With the right side of her abdomen improving, she has noticed the left abdominal wall developing increasing firmness and swelling and dependent edema. Progress of Wound: Stable - Physical Exam Vital Signs Temp Pulse Resp BP 97.1 F L 80 18 154/86 H 07/25/19 09:14 07/25/19 09:14 07/25/19 09:14 07/25/19 09:14 General: Alert, Oriented x3, Cooperative HEENT: Atraumatic Oral: Moist Mucosa Neck: Supple Lungs: Normal air movement Cardiovascular: Regular rate Abdomen: Obese Extremities: Capillary Refill Less than 3 Seconds Skin: Ulcer/ Wound - right abdominal ulcer Wound Measurements and Assessment WC - Nurse 1 - General Ulcer Measurement Start: 07/05/19 13:32 Freq: Status: Active Protocol: Activity Type Activity Date Activity User E-Sign Co-Sign Detail Recorded Client Recorded Date Recorded By Document 07/25/19 09:14 [id number] 07/25/19 09:20 MW 07/25/19 09:14 Wound Center Nurse 1 [Ulcer Assessment] #2 right pannus -Combined with other wound No -Current Size (cm) - Length 3.3 -Current Size (cm) - Width 5.5 -Current Size (cm) - Depth 0.2 -Total Square Cm 18.15 -Date of Last Picture (Recall this 07/25/19 field) -Photo Taken Yes -Epithelialization Small 1-33% -Tunneling No -Undermining/Tunneling No -Circular Undermining No -Exudate Amt Large -Exudate Type Serosanguineous -Wound Margin Distinct, Outline Attached -Granulation Amt Large (67-100%) -Granulation Quality [place] -Slough/Fibrin Yes -Necrosis Amt Small (1-33%) -Necrotic Tissue Type Adherent Slough -Structure Exposed N/A -Texture (Lyly-wound Skin Appearance) Assessed, Scarring -Moisture (Lyly-wound Skin Appearance Assessed,Dry/ ) Scaly -Color (Lyly-wound Skin Appearance) No Abnormality, Assessed -Temperature (Lyly-wound Skin No Abnormality Appearance) (Pt Warm) -Tenderness on Palpation (Lyly-wound No Skin Appearance) -Ulcer Cleansing Rinsed/ Irrigated with Saline -Foul Odor after Cleansing No -Anesthetic Used 4% Lidocaine Solution,5% Lidocaine Gel [Edema Assessment] -Lower Limb Edema Present No WC - Nurse 2 - General Ulcer CM Notes Start: 07/05/19 13:32 Freq: Status: Active Protocol: Activity Type Activity Date Activity User E-Sign Co-Sign Detail Recorded Client Recorded Date Recorded By Document 07/25/19 09:29 [id number] 07/25/19 09:31 07/25/19 09:29 Wound Center Nurse 2 [Procedure/Treatment] #2 right pannus -Time 09:30 -Correct Patient Yes -Correct Side, Site, Position Yes -Correct Procedure Yes -Procedure Performed Yes -Type of Procedure Debridement -Clinical Debridement Subcutaneous -Post Debridement Size (cm) - Length 3.4 -Post Debridement Size (cm) - Width 5.7 -Post Debridement Size (cm) - Depth 0.3 -Total Square Cm 19.38 -Wound/Ulcer Outcome Not Healed -Ulcer Cleansing Rinsed/ Irrigated with Saline -Foul Odor after Cleansing No -Bioengineered Tissue No -Bleeding Controlled with Pressure -Offloading No -Treatment Response Procedure Tolerated Well [See Physician Procedure note for Specifics] Pain Scale: 0-10 Numeric [Pain] -Is Patient Pain Free? Yes Musculoskeletal: No Tenderness to Palpation of Joints or Extremities Neurological: Neuro grossly intact Psych/Mental Status: Normal Affect, Appropriate Debridement Note Post-Debridement Measurements/Treatment WC - Nurse 2 - General Ulcer CM Notes Start: 07/05/19 13:32 Freq: Status: Active Protocol: Activity Type Activity Date Activity User E-Sign Co-Sign Detail Recorded Client Recorded Date Recorded By Document 07/05/19 14:14 [id number] 07/05/19 14:15 Document 07/12/19 13:41 [id number] 07/12/19 13:44 Document 07/18/19 09:32 [id number] 07/18/19 09:37 Document 07/25/19 09:29 [id number] 07/25/19 09:31 07/05/19 07/12/19 07/18/19 14:14 13:41 09:32 Wound Center Nurse 2 #2 right pannus -Time 14:15 13:42 09:32 -Correct Patient Yes Yes Yes -Correct Side, Site, Position Yes Yes Yes -Correct Procedure Yes Yes Yes -Procedure Performed Yes Yes Yes -Type of Procedure Debridement Debridement Debridement -Clinical Debridement Subcutaneous Subcutaneous Subcutaneous -Post Debridement Size (cm) - Length 3.0 3.5 3.7 -Post Debridement Size (cm) - Width 5.5 5.7 5.6 -Post Debridement Size (cm) - Depth 0.3 0.3 0.3 -Total Square Cm 16.50 19.95 20.72 -Wound/Ulcer Outcome Not Healed Not Healed Not Healed -Ulcer Cleansing Rinsed/ Rinsed/ Rinsed/ Irrigated with Irrigated with Irrigated with Saline Saline Saline -Foul Odor after Cleansing No No No -Bioengineered Tissue No No No -Bleeding Controlled with Pressure Pressure Pressure -Offloading No No No -Treatment Response Procedure Procedure Procedure Tolerated Well Tolerated Well Tolerated Well Pain Scale: 0-10 Numeric Is Patient Pain Free? Yes Yes Yes 07/25/19 09:29 Wound Center Nurse 2 #2 right pannus -Time 09:30 -Correct Patient Yes -Correct Side, Site, Position Yes -Correct Procedure Yes -Procedure Performed Yes -Type of Procedure Debridement -Clinical Debridement Subcutaneous -Post Debridement Size (cm) - Length 3.4 -Post Debridement Size (cm) - Width 5.7 -Post Debridement Size (cm) - Depth 0.3 -Total Square Cm 19.38 -Wound/Ulcer Outcome Not Healed -Ulcer Cleansing Rinsed/ Irrigated with Saline -Foul Odor after Cleansing No -Bioengineered Tissue No -Bleeding Controlled with Pressure -Offloading No -Treatment Response Procedure Tolerated Well Pain Scale: 0-10 Numeric Is Patient Pain Free? Yes Wound debrided: abdominal ulcer Laterality: Right Type of Debridement: Excisional debridement Anesthesia Used: 4% Lidocaine Solution, 5% Lidocaine Gel Depth: Down to and including healthy tissue, in the subcutaneous layer Percentage of wound debrided: 100 Instrument Used: 7mm curette Tissue Removed: Subcutaneous tissue and slough Severity: Fat Layer Exposed Amount of bleeding with debridement: Mild Bleeding Controlled with: Pressure, Compression and gauze Patient tolerated procedure well Assessment/Plan Active Problems (Last Reviewed 11/19/18 @ 10:25 by Angela Song) Abdominal panniculus, symptomatic (Chronic) Skin ulcer of abdominal wall with fat layer exposed (Chronic) Anxiety and depression (Chronic) Obesity, Class III, BMI 40-49.9 (morbid obesity) (Chronic) Assessment: 1. 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 2. Massive abdominal panniculus with panniculitis. 3. Borderline diabetes. 4. Abdominal wall skin crease intertrigo. 5. Morbid obesity. 6. Incisional hernia. 7. s/p surgical preparation right lateral abdominal wall massive panniculus with excisional debridement skin and subcutaneous tissue for necrotizing soft tissue infection and panniculectomy (858 cm2). Plan: Epifix #10. Stop daily Dakins 1/4 strength solution. Start daily Caitlyn dressing changes. The base of ulcer is very fibrous even with debridement. Continue to increase protein intake and other abdominal pannus care. She is starting to have issues with increase pain and edema of the left pannus. She is interested in having some of that removed. Will schedule that surgery next month. Because of the difficulty we had with the last surgery with blood pressure, I will admit her the day before for IV hydration and to begin IV antibitiotics. Surgery will be under general anesthesia with a surgical observation overnight stay in the hospital. Because of issues with Home Health coverage, she may need to go to an ECF initially for the VAC care along with IV antibiotics. Patient was informed of the risks and complications of the procedure including alternatives to surgery. These were discussed with her personally. She voices understanding and wishes to proceed only if she may go home after surgery. Follow-up one week. Code Visit [id number]: [id number] Josephine subq tissue 20 sq cm/<
[2019-08-01 09:05] VITALS: BP 142/90; PULSE 77; RESP 18; TEMP 36.6; BMI 78.4
--- NOTE | 2019-08-01 18:30 | PCM.WC.PN ---
Type of Wound Date of Service: 08/01/19 Chief Complaint: Nonhealing ulcer right lateral abdominal wall and left sided abdominal pannniculus with panniculitis. History of Wound: Surgery 09/21/18 - Surgical preparation right lateral abdominal wall massive panniculus with excisional debridement skin and subcutaneous tissue for necrotizing soft tissue infection and panniculectomy (858 cm2). Wound care - Caitlyn. Today denies any fever, chills or nausea. She states her appetite is good and she is supplementing with protein shakes. Operative culture - Staphylococcus simulans, Corynebacteriurm striatum, Corynebacterium amycolatum, and Anaerobic cocci. She was treated initially with Vancomycin and then was placed on Levaquin for the ECF. Also Cleocin was added for the Anaerobe. She has finished them. Prealbumin from 09/22/18 was 12.0. Encouraged nutritional supplementation with protein to help the healing process. Today she denies fever. Her appetite is ok. She has lost over 100 lbs since her surgery. With the right side of her abdomen improving, she has noticed the left abdominal wall developing increasing firmness and swelling and dependent edema. Progress of Wound: Stable. - Physical Exam Vital Signs Temp Pulse Resp BP 97.8 F 77 18 142/90 H 08/01/19 09:05 08/01/19 09:05 08/01/19 09:05 08/01/19 09:05 Wound Measurements and Assessment WC - Nurse 1 - General Ulcer Measurement Start: 07/05/19 13:32 Freq: Status: Active Protocol: Activity Type Activity Date Activity User E-Sign Co-Sign Detail Recorded Client Recorded Date Recorded By Document 08/01/19 09:05 DL [id number] 08/01/19 09:13 DL 08/01/19 09:05 Wound Center Nurse 1 [Ulcer Assessment] #2 right pannus -Current Size (cm) - Length 2.9 -Current Size (cm) - Width 5.2 -Current Size (cm) - Depth 0.6 -Total Square Cm 15.08 -Photo Taken No -Exudate Amt Small -Exudate Type Serosanguineous -Wound Margin Distinct, Outline Attached -Granulation Amt Large (67-100%) -Granulation Quality [place],Red -Necrosis Amt Small (1-33%) -Necrotic Tissue Type Adherent Slough -Structure Exposed N/A -Texture (Lyly-wound Skin Appearance) Scarring -Moisture (Lyly-wound Skin Appearance Dry/Scaly ) -Color (Lyly-wound Skin Appearance) No Abnormality -Temperature (Lyly-wound Skin No Abnormality Appearance) (Pt Warm) -Tenderness on Palpation (Lyly-wound No Skin Appearance) -Ulcer Cleansing Rinsed/ Irrigated with Saline -Foul Odor after Cleansing No -Anesthetic Used 4% Lidocaine Solution - Nurse 2 - General Ulcer CM Notes Start: 07/05/19 13:32 Freq: Status: Active Protocol: Activity Type Activity Date Activity User E-Sign Co-Sign Detail Recorded Client Recorded Date Recorded By Document 08/01/19 09:23 [id number] 08/01/19 09:24 08/01/19 09:23 Wound Center Nurse 2 [Procedure/Treatment] -Time 09:24 -Correct Patient Yes -Correct Side, Site, Position Yes -Correct Procedure Yes -Procedure Performed Yes -Type of Procedure Debridement -Clinical Debridement Subcutaneous -Post Debridement Size (cm) - Length 3.3 -Post Debridement Size (cm) - Width 5.3 -Post Debridement Size (cm) - Depth 0.4 -Total Square Cm 17.49 -Wound/Ulcer Outcome Not Healed -Ulcer Cleansing Rinsed/ Irrigated with Saline -Foul Odor after Cleansing No -Bioengineered Tissue No -Bleeding Controlled with Pressure -Offloading No -Treatment Response Procedure Tolerated Well [See Physician Procedure note for Specifics] Pain Scale: 0-10 Numeric [Pain] -Is Patient Pain Free? Yes Debridement Note Post-Debridement Measurements/Treatment - Nurse 2 - General Ulcer CM Notes Start: 07/05/19 13:32 Freq: Status: Active Protocol: Activity Type Activity Date Activity User E-Sign Co-Sign Detail Recorded Client Recorded Date Recorded By Document 07/05/19 14:14 [id number] 07/05/19 14:15 Document 07/12/19 13:41 [id number] 07/12/19 13:44 Document 07/18/19 09:32 [id number] 07/18/19 09:37 Document 07/25/19 09:29 [id number] 07/25/19 09:31 Document 08/01/19 09:23 [id number] 08/01/19 09:24 07/05/19 07/12/19 07/18/19 14:14 13:41 09:32 Wound Center Nurse 2 #2 right pannus -Time 14:15 13:42 09:32 -Correct Patient Yes Yes Yes -Correct Side, Site, Position Yes Yes Yes -Correct Procedure Yes Yes Yes -Procedure Performed Yes Yes Yes -Type of Procedure Debridement Debridement Debridement -Clinical Debridement Subcutaneous Subcutaneous Subcutaneous -Post Debridement Size (cm) - Length 3.0 3.5 3.7 -Post Debridement Size (cm) - Width 5.5 5.7 5.6 -Post Debridement Size (cm) - Depth 0.3 0.3 0.3 -Total Square Cm 16.50 19.95 20.72 -Wound/Ulcer Outcome Not Healed Not Healed Not Healed -Ulcer Cleansing Rinsed/ Rinsed/ Rinsed/ Irrigated with Irrigated with Irrigated with Saline Saline Saline -Foul Odor after Cleansing No No No -Bioengineered Tissue No No No -Bleeding Controlled with Pressure Pressure Pressure -Offloading No No No -Treatment Response Procedure Procedure Procedure Tolerated Well Tolerated Well Tolerated Well Pain Scale: 0-10 Numeric Is Patient Pain Free? Yes Yes Yes 07/25/19 08/01/19 09:29 09:23 Wound Center Nurse 2 #2 right pannus -Time 09:30 09:24 -Correct Patient Yes Yes -Correct Side, Site, Position Yes Yes -Correct Procedure Yes Yes -Procedure Performed Yes Yes -Type of Procedure Debridement Debridement -Clinical Debridement Subcutaneous Subcutaneous -Post Debridement Size (cm) - Length 3.4 3.3 -Post Debridement Size (cm) - Width 5.7 5.3 -Post Debridement Size (cm) - Depth 0.3 0.4 -Total Square Cm 19.38 17.49 -Wound/Ulcer Outcome Not Healed Not Healed -Ulcer Cleansing Rinsed/ Rinsed/ Irrigated with Irrigated with Saline Saline -Foul Odor after Cleansing No No -Bioengineered Tissue No No -Bleeding Controlled with Pressure Pressure -Offloading No No -Treatment Response Procedure Procedure Tolerated Well Tolerated Well Pain Scale: 0-10 Numeric Is Patient Pain Free? Yes Yes Wound debrided: #2 Right lateral abdominal wall. Laterality: Right Wound Grade/Stage: 3. Type of Debridement: Excisional debridement Anesthesia Used: 4% Lidocaine Solution Depth: Down to and including healthy tissue, in the subcutaneous layer Percentage of wound debrided: 100 Instrument Used: 7mm curette Tissue Removed: subcutaneous tissue. Severity: Fat Layer Exposed Amount of bleeding with debridement: Mild Bleeding Controlled with: Pressure Patient tolerated procedure well Assessment/Plan Active Problems (Last Reviewed 11/19/18 @ 10:25 by Angela Song) Abdominal panniculus, symptomatic (Chronic) Skin ulcer of abdominal wall with fat layer exposed (Chronic) Anxiety and depression (Chronic) Obesity, Class III, BMI 40-49.9 (morbid obesity) (Chronic) Assessment: 1. 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 2. Massive abdominal panniculus with panniculitis, worse on left side. 3. Borderline diabetes. 4. Abdominal wall skin crease intertrigo. 5. Morbid obesity. 6. Incisional hernia. 7. s/p surgical preparation right lateral abdominal wall massive panniculus with excisional debridement skin and subcutaneous tissue for necrotizing soft tissue infection and panniculectomy (858 cm2). Plan: Continue Caitlyn dressing changes to right abdominal wall ulcer. She is having more edema and symptomatic pain on the left side of her panniculus with panniculitis. Eventually she will need further excision on the right side, but she is more symptomatic on the left so will proceed with excisional debridement and panniculectomy. Because of the difficulty we had with the last surgery with blood pressure, I will admit her the day before for IV hydration and to begin IV antibitiotics. Surgery will be under general anesthesia with a surgical observation overnight stay in the hospital. Because of issues with Home Health coverage, she may need to go to an [facility] initially for the VAC care along with IV antibiotics. She voices understanding and wishes to proceed only if she may go home after surgery. Her mother states she can learn to do the VAC dressing changes. Patient was informed of the risks and complications of the procedure including alternatives to surgery. These were discussed with her personally. She voices understanding and wishes to proceed. Follow-up 2 weeks. Will schedule the surgery after . The right lateral abdominal wall ulcer is stable. With the weight of her panniculus, I anticipate the right lateral abdominal wall ulcer will not heal without further excisional surgery. After the left sided surgery, will then address the right side.
== END 2019-08-04 23:59 ==
LOC: WC 09:15
PROVIDERS: Family Provider Student in an Organized Health Care Education/Training Program; PCP Student in an Organized Health Care Education/Training Program; Visit Provider Nurse Practitioner Family
DX: L98.492 Non-pressure chronic ulcer of skin of other sites with fat layer exposed (principal); R73.03 Prediabetes; E65 Localized adiposity; Z71.3 Dietary counseling and surveillance; E66.01 Morbid (severe) obesity due to excess calories; R60.0 Localized edema
CPT/HCPCS: 11042; 11045

== ENCOUNTER → 2019-08-19 09:00 | Outpatient (CLI) | payer MEDICAID, SELFPAY ==
[2019-08-08 09:02] VITALS: BMI 78.4
[2019-09-08 10:24] LABS: Hematocrit 46.3 % (37-47); Hemoglobin 14.2 g/dL (12.0-15.0); Mean Corp Hgb Conc 30.7 g/dL (32-36); Mean Corpuscular Hgb 28.3 pg (27.0-32.0); Mean Corpuscular Volume 92.4 fL (81-99); Mean Platelet Vol. 10.9 fl (6.2-12.0); Platelet Count 277 K/mm3 (150-450); RBC Distribution Width CV 14.7 % (11.6-14.6); RBC Distribution Width SD 50.3 fl (35.1-43.9); Red Blood Count 5.01 M/mm3 (4.2-5.4); White Blood Count 8.4 K/mm3 (4.4-11.0)
[2019-09-08 11:01] LABS: Hemoglobin A1c 5.9 % (4.2-6.3)
[2019-09-08 11:59] LABS: Anion Gap 9 (5-15); BUN 12 mg/dL (7-18); Calcium,Total 8.8 mg/dL (8.5-10.1); Chloride 108 mmol/L (98-107); Creatinine, Serum 0.92 mg/dL (0.55-1.02); Glucose 83 mg/dL (74-106); Potassium 4.2 mmol/L (3.5-5.1); Sodium Level 140 mmol/L (136-145)
[2019-09-08 12:03] LABS: BUN/Creat Ratio 13.1 RATIO (10-20); EST Glomerular Filtration Rate 71 mL/min (>60); Est Glom Filt Rate - Afr Amer 85 mL/min (>60)
== END ==
PROVIDERS: Anesthesiology; Family Provider Student in an Organized Health Care Education/Training Program; PCP Student in an Organized Health Care Education/Training Program; Referring Provider Surgery; Visit Provider Surgery
DX: Z01.818 Encounter for other preprocedural examination (principal)
CPT/HCPCS: 36415; 80048; 83036; 84443; 85027

== ENCOUNTER 2019-08-23 12:30 | Outpatient (RCR) | payer MEDICAID, SELFPAY ==
[2019-08-05 00:38] VITALS: BP 142/90; PULSE 77; RESP 18; TEMP 36.6
[2019-08-08 09:02] VITALS: BP 151/94; PULSE 87; RESP 18; TEMP 36.6; BMI 78.4
--- NOTE | 2019-08-08 13:39 | PCM.WC.PN ---
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 Status: Chronic Code(s): L98.492 - Non-pressure chronic ulcer of skin of other sites with fat layer exposed (2) Abdominal panniculus, symptomatic Status: Chronic Code(s): E65 - Localized adiposity (3) Erythema intertrigo Status: Chronic Code(s): L30.4 - Erythema intertrigo Comment: abdominal wall skin crease intertrigo (4) Obesity, Class III, BMI 40-49.9 (morbid obesity) Status: Chronic Code(s): E66.01 - Morbid (severe) obesity due to excess calories Type of Wound Date of Service: 08/08/19 Chief Complaint: Nonhealing ulcer right lateral abdominal wall and left sided abdominal pannniculus with panniculitis. History of Wound: Surgery 09/21/18 - Surgical preparation right lateral abdominal wall massive panniculus with excisional debridement skin and subcutaneous tissue for necrotizing soft tissue infection and panniculectomy (858 cm2). Wound care - Caitlyn. Today denies any fever, chills or nausea. She states her appetite is good and she is supplementing with protein shakes. Operative culture - Staphylococcus simulans, Corynebacteriurm striatum, Corynebacterium amycolatum, and Anaerobic cocci. She was treated initially with Vancomycin and then was placed on Levaquin for the ECF. Also Cleocin was added for the Anaerobe. She has finished them. Prealbumin from 09/22/18 was 12.0. Encouraged nutritional supplementation with protein to help the healing process. Today she denies fever. Her appetite is ok. She has lost over 100 lbs since her surgery. With the right side of her abdomen improving, she has noticed the left abdominal wall developing increasing firmness and swelling and dependent edema. Progress of Wound: Stable. - Physical Exam Vital Signs Temp Pulse Resp BP 97.8 F 87 18 151/94 H 08/08/19 09:02 08/08/19 09:02 08/08/19 09:02 08/08/19 09:02 General: Alert, Oriented x3, Cooperative HEENT: Atraumatic Oral: Moist Mucosa Lungs: Normal air movement Cardiovascular: Regular rate Abdomen: Obese Extremities: Capillary Refill Less than 3 Seconds Skin: Ulcer/ Wound - right abdominal ulcer Wound Measurements and Assessment WC - Nurse 1 - General Ulcer Measurement Start: 08/08/19 09:02 Freq: Status: Active Protocol: Activity Type Activity Date Activity User E-Sign Co-Sign Detail Recorded Client Recorded Date Recorded By Document 08/08/19 09:02 MW [id number] 08/08/19 09:10 MW 08/08/19 09:02 Wound Center Nurse 1 [Ulcer Assessment] #2 right pannus -Combined with other wound No -Current Size (cm) - Length 2.9 -Current Size (cm) - Width 5.2 -Current Size (cm) - Depth 0.4 -Total Square Cm 15.08 -Photo Taken No -Epithelialization Small 1-33% -Tunneling No -Undermining/Tunneling No -Circular Undermining No -Exudate Amt Medium -Exudate Type Serosanguineous -Wound Margin Flat & Intact -Granulation Amt Large (67-100%) -Granulation Quality [place] -Slough/Fibrin Yes -Necrosis Amt Small (1-33%) -Necrotic Tissue Type Adherent Slough -Structure Exposed N/A -Texture (Lyly-wound Skin Appearance) Assessed, Scarring -Moisture (Lyly-wound Skin Appearance Assessed,Dry/ ) Scaly -Color (Lyly-wound Skin Appearance) No Abnormality, Assessed -Temperature (Lyly-wound Skin No Abnormality Appearance) (Pt Warm) -Tenderness on Palpation (Lyly-wound No Skin Appearance) -Ulcer Cleansing Rinsed/ Irrigated with Saline -Foul Odor after Cleansing No -Anesthetic Used 4% Lidocaine Solution [Edema Assessment] -Lower Limb Edema Present No WC - Nurse 2 - General Ulcer CM Notes Start: 08/08/19 09:02 Freq: Status: Active Protocol: Activity Type Activity Date Activity User E-Sign Co-Sign Detail Recorded Client Recorded Date Recorded By Document 08/08/19 09:18 [id number] 08/08/19 09:27 08/08/19 09:18 Wound Center Nurse 2 [Procedure/Treatment] #2 right pannus -Time 09:20 -Correct Patient Yes -Correct Side, Site, Position Yes -Correct Procedure Yes -Procedure Performed Yes -Type of Procedure Debridement -Clinical Debridement Subcutaneous -Post Debridement Size (cm) - Length 3.0 -Post Debridement Size (cm) - Width 5.3 -Post Debridement Size (cm) - Depth 0.5 -Total Square Cm 15.90 -Wound/Ulcer Outcome Not Healed -Ulcer Cleansing Rinsed/ Irrigated with Saline -Foul Odor after Cleansing No -Bioengineered Tissue No -Bleeding Controlled with Pressure -Offloading No -Treatment Response Procedure Tolerated Well [See Physician Procedure note for Specifics] Pain Scale: 0-10 Numeric [Pain] -Is Patient Pain Free? Yes Musculoskeletal: No Muscle Wasting Neurological: Neuro grossly intact Psych/Mental Status: Normal Affect, Appropriate Debridement Note Post-Debridement Measurements/Treatment WC - Nurse 2 - General Ulcer CM Notes Start: 08/08/19 09:02 Freq: Status: Active Protocol: Activity Type Activity Date Activity User E-Sign Co-Sign Detail Recorded Client Recorded Date Recorded By Document 08/08/19 09:18 [id number] 08/08/19 09:27 LOIS 08/08/19 09:18 Wound Center Nurse 2 #2 right pannus -Time 09:20 -Correct Patient Yes -Correct Side, Site, Position Yes -Correct Procedure Yes -Procedure Performed Yes -Type of Procedure Debridement -Clinical Debridement Subcutaneous -Post Debridement Size (cm) - Length 3.0 -Post Debridement Size (cm) - Width 5.3 -Post Debridement Size (cm) - Depth 0.5 -Total Square Cm 15.90 -Wound/Ulcer Outcome Not Healed -Ulcer Cleansing Rinsed/ Irrigated with Saline -Foul Odor after Cleansing No -Bioengineered Tissue No -Bleeding Controlled with Pressure -Offloading No -Treatment Response Procedure Tolerated Well Pain Scale: 0-10 Numeric Is Patient Pain Free? Yes Wound debrided: abdominal ulcer Laterality: Right Type of Debridement: Excisional debridement Anesthesia Used: 5% Lidocaine Gel Depth: Down to and including healthy tissue, in the subcutaneous layer Percentage of wound debrided: 100 Instrument Used: 5mm curette Tissue Removed: subcutaneous tissue and slough Severity: Limited To Skin Breakdown Amount of bleeding with debridement: Mild Bleeding Controlled with: Pressure, Compression and gauze Patient tolerated procedure well Assessment/Plan Assessment: 1. 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 2. Massive abdominal panniculus with panniculitis, worse on left side. 3. Borderline diabetes. 4. Abdominal wall skin crease intertrigo. 5. Morbid obesity. 6. Incisional hernia. 7. s/p surgical preparation right lateral abdominal wall massive panniculus with excisional debridement skin and subcutaneous tissue for necrotizing soft tissue infection and panniculectomy (858 cm2). Plan: Continue Caitlyn dressing changes to right abdominal wall ulcer. She is having more edema and symptomatic pain on the left side of her panniculus with panniculitis. Eventually she will need further excision on the right side, but she is more symptomatic on the left so will proceed with excisional debridement and panniculectomy. Because of the difficulty we had with the last surgery with blood pressure, I will admit her the day before for IV hydration and to begin IV antibitiotics. Surgery will be under general anesthesia with a surgical observation overnight stay in the hospital. Because of issues with Home Health coverage, she may need to go to an F initially for the VAC care along with IV antibiotics. She voices understanding and wishes to proceed only if she may go home after surgery. Her mother states she can learn to do the VAC dressing changes. Patient was informed of the risks and complications of the procedure including alternatives to surgery. These were discussed with her personally. She voices understanding and wishes to proceed. Follow-up 2 weeks. Surgery is scheduled after . The right lateral abdominal wall ulcer is stable. With the weight of her panniculus, I anticipate the right lateral abdominal wall ulcer will not heal without further excisional surgery. After the left sided surgery, will then address the right side. Code Visit [id number]: [id number] Josephine subq tissue 20 sq cm/<
[2019-08-23 12:22] VITALS: BP 155/90; PULSE 82; RESP 16; TEMP 36.6; BMI 78.4
--- NOTE | 2019-08-23 14:19 | PN.PCM_ITS ---
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 Status: Chronic Code(s): L98.492 - Non-pressure chronic ulcer of skin of other sites with fat layer exposed (2) Abdominal panniculus, symptomatic Status: Chronic Code(s): E65 - Localized adiposity (3) Erythema intertrigo Status: Chronic Code(s): L30.4 - Erythema intertrigo Comment: abdominal wall skin crease intertrigo (4) Obesity, Class III, BMI 40-49.9 (morbid obesity) Status: Chronic Code(s): E66.01 - Morbid (severe) obesity due to excess calories Type of Wound Date of Service: 08/23/19 Chief Complaint: Nonhealing ulcer right lateral abdominal wall and left sided abdominal pannniculus with panniculitis. History of Wound: Surgery 09/21/18 - Surgical preparation right lateral abdominal wall massive panniculus with excisional debridement skin and subcutaneous tissue for necrotizing soft tissue infection and panniculectomy (858 cm2). Wound care - Caitlyn. Today denies any fever, chills or nausea. She states her appetite is good and she is supplementing with protein shakes. Operative culture - Staphylococcus simulans, Corynebacteriurm striatum, Corynebacterium amycolatum, and Anaerobic cocci. She was treated initially with Vancomycin and then was placed on Levaquin for the ECF. Also Cleocin was added for the Anaerobe. She has finished them. Prealbumin from 09/22/18 was 12.0. Encouraged nutritional supplementation with protein to help the healing process. Today she denies fever. Her appetite is ok. She has lost over 100 lbs since her surgery. With the right side of her abdomen improving, she has noticed the left abdominal wall developing increasing firmness and swelling and dependent edema. Progress of Wound: Stable. - Physical Exam Vital Signs Temp Pulse Resp BP 98 F 82 16 155/90 H 08/23/19 12:22 08/23/19 12:22 08/23/19 12:22 08/23/19 12:22 General: Alert, Oriented x3, Cooperative HEENT: Atraumatic Oral: Moist Mucosa Lungs: Normal air movement Cardiovascular: Regular rate Abdomen: Soft, Obese Extremities: Capillary Refill Less than 3 Seconds Skin: Ulcer/ Wound - right abdomen Wound Measurements and Assessment WC - Nurse 1 - General Ulcer Measurement Start: 08/08/19 09:02 Freq: Status: Active Protocol: Activity Type Activity Date Activity User E-Sign Co-Sign Detail Recorded Client Recorded Date Recorded By Document 08/23/19 12:22 [facility] [id number] 08/23/19 12:29 [facility] 08/23/19 12:22 Wound Center Nurse 1 [Ulcer Assessment] #2 right pannus -Combined with other wound No -Current Size (cm) - Length 2.6 -Current Size (cm) - Width 4.3 -Current Size (cm) - Depth 0.3 -Total Square Cm 11.18 -Date of Last Picture (Recall this 08/23/19 field) -Photo Taken Yes -Epithelialization Small 1-33% -Tunneling No -Undermining/Tunneling No -Circular Undermining No -Exudate Amt Small -Exudate Type Serous -Wound Margin Thickened & Rolled Under -Granulation Amt Medium (34-66%) -Granulation Quality [place] -Slough/Fibrin Yes -Necrosis Amt Small (1-33%) -Necrotic Tissue Type Adherent Slough -Texture (Lyly-wound Skin Appearance) Assessed, Scarring,Rash -Moisture (Lyly-wound Skin Appearance Assessed ) -Color (Lyly-wound Skin Appearance) Assessed, Erythema -Temperature (Lyly-wound Skin No Abnormality Appearance) (Pt Warm) -Tenderness on Palpation (Lyly-wound No Skin Appearance) -Ulcer Cleansing Rinsed/ Irrigated with Saline -Foul Odor after Cleansing No -Anesthetic Used 5% Lidocaine Gel - Nurse 2 - General Ulcer CM Notes Start: 08/08/19 09:02 Freq: Status: Active Protocol: Activity Type Activity Date Activity User E-Sign Co-Sign Detail Recorded Client Recorded Date Recorded By Document 08/23/19 12:52 [id number] 08/23/19 12:58 08/23/19 12:52 Wound Center Nurse 2 [Procedure/Treatment] -Time 12:52 -Correct Patient Yes -Correct Side, Site, Position Yes -Correct Procedure Yes -Procedure Performed Yes -Type of Procedure Debridement -Clinical Debridement Subcutaneous -Post Debridement Size (cm) - Length 2.5 -Post Debridement Size (cm) - Width 4.5 -Post Debridement Size (cm) - Depth 0.4 -Total Square Cm 11.25 -Wound/Ulcer Outcome Not Healed -Ulcer Cleansing Rinsed/ Irrigated with Saline -Foul Odor after Cleansing No -Bioengineered Tissue No -Bleeding Controlled with Pressure -Offloading No -Treatment Response Procedure Tolerated Well [See Physician Procedure note for Specifics] Pain Scale: 0-10 Numeric [Pain] -Is Patient Pain Free? Yes Musculoskeletal: No Muscle Wasting Lymphatic: No Cervical, Supraclavicular, or Inguinal Adenopathy Debridement Note Post-Debridement Measurements/Treatment WC - Nurse 2 - General Ulcer CM Notes Start: 08/08/19 09:02 Freq: Status: Active Protocol: Activity Type Activity Date Activity User E-Sign Co-Sign Detail Recorded Client Recorded Date Recorded By Document 08/08/19 09:18 [id number] 08/08/19 09:27 Document 08/23/19 12:52 [id number] 08/23/19 12:58 08/08/19 08/23/19 09:18 12:52 Wound Center Nurse 2 #2 right pannus -Time 09:20 12:52 -Correct Patient Yes Yes -Correct Side, Site, Position Yes Yes -Correct Procedure Yes Yes -Procedure Performed Yes Yes -Type of Procedure Debridement Debridement -Clinical Debridement Subcutaneous Subcutaneous -Post Debridement Size (cm) - Length 3.0 2.5 -Post Debridement Size (cm) - Width 5.3 4.5 -Post Debridement Size (cm) - Depth 0.5 0.4 -Total Square Cm 15.90 11.25 -Wound/Ulcer Outcome Not Healed Not Healed -Ulcer Cleansing Rinsed/ Rinsed/ Irrigated with Irrigated with Saline Saline -Foul Odor after Cleansing No No -Bioengineered Tissue No No -Bleeding Controlled with Pressure Pressure -Offloading No No -Treatment Response Procedure Procedure Tolerated Well Tolerated Well Pain Scale: 0-10 Numeric Is Patient Pain Free? Yes Yes Wound debrided: abdomen ulcer Laterality: Right Type of Debridement: Excisional debridement Anesthesia Used: 5% Lidocaine Gel Depth: Down to and including healthy tissue, in the subcutaneous layer Percentage of wound debrided: 100 Instrument Used: 5mm curette Tissue Removed: Subcutaneous tissue and slough Severity: Fat Layer Exposed Amount of bleeding with debridement: Mild Bleeding Controlled with: Pressure, Compression and gauze Patient tolerated procedure well Assessment/Plan Assessment: 1. 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 2. Massive abdominal panniculus with panniculitis, worse on left side. 3. Borderline diabetes. 4. Abdominal wall skin crease intertrigo. 5. Morbid obesity. 6. Incisional hernia. 7. s/p surgical preparation right lateral abdominal wall massive panniculus with excisional debridement skin and subcutaneous tissue for necrotizing soft tissue infection and panniculectomy (858 cm2). Plan: Continue Caitlyn dressing changes to right abdominal wall ulcer. She is having more edema and symptomatic pain on the left side of her panniculus with panniculitis. Eventually she will need further excision on the right side, but she is more symptomatic on the left so will proceed with excisional debridement and panniculectomy. Because of the difficulty we had with the last surgery with blood pressure, I will admit her the day before for IV hydration and to begin IV antibitiotics. Surgery will be under general anesthesia with a surgical observation overnight stay in the hospital. Because of issues with Home Health coverage, she may need to go to an F initially for the VAC care along with IV antibiotics. She voices understanding and wishes to proceed only if she may go home after surgery. Her mother states she can learn to do the VAC dressing changes. Patient was informed of the risks and complications of the procedure including alternatives to surgery. These were discussed with her personally. She voices understanding and wishes to proceed. Surgery scheduled 09/13/19. Follow-up 2 weeks. Surgery is scheduled after . The right lateral abdominal wall ulcer is stable. With the weight of her panniculus, I anticipate the right lateral abdominal wall ulcer will not heal without further excisional surgery. After the left sided surgery, will then address the right side. Code Visit 111xxx-113xx: [id number] Josephine subq tissue 20 sq cm/<
== END 2019-09-03 23:59 ==
LOC: WC 12:30
PROVIDERS: Family Provider Student in an Organized Health Care Education/Training Program; PCP Student in an Organized Health Care Education/Training Program; Visit Provider Nurse Practitioner Family
DX: L98.492 Non-pressure chronic ulcer of skin of other sites with fat layer exposed (principal); R73.03 Prediabetes; L30.4 Erythema intertrigo; E66.01 Morbid (severe) obesity due to excess calories; Z71.3 Dietary counseling and surveillance; E65 Localized adiposity; R60.0 Localized edema
CPT/HCPCS: 11042

== ENCOUNTER 2019-09-26 10:00 | Outpatient (RCR) | payer MEDICAID, SELFPAY ==
[2019-09-04 00:31] VITALS: BP 155/90; PULSE 82; RESP 16; TEMP 36.6
[2019-09-06 12:38] VITALS: BP 150/97; PULSE 79; RESP 22; TEMP 36.9; BMI 78.4
--- NOTE | 2019-09-06 14:19 | PN.PCM_ITS ---
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 Status: Chronic Code(s): L98.492 - Non-pressure chronic ulcer of skin of other sites with fat layer exposed (2) Erythema intertrigo Status: Chronic Code(s): L30.4 - Erythema intertrigo Comment: abdominal wall skin crease intertrigo (3) Panniculitis Status: Chronic Code(s): M79.3 - Panniculitis, unspecified (4) Abdominal panniculus, symptomatic Status: Chronic Code(s): E65 - Localized adiposity (5) Super-super obese Status: Chronic Code(s): E66.9 - Obesity, unspecified (6) Prediabetes Status: Chronic Code(s): R73.03 - Prediabetes Type of Wound Date of Service: 09/06/19 Chief Complaint: Nonhealing ulcer right lateral abdominal wall and left sided abdominal pannniculus with panniculitis. History of Wound: Surgery 09/21/18 - Surgical preparation right lateral abdominal wall massive panniculus with excisional debridement skin and subcutaneous tissue for necrotizing soft tissue infection and panniculectomy (858 cm2). Wound care - Caitlyn. Today denies any fever, chills or nausea. She states her appetite is good and she is supplementing with protein shakes. Operative culture - Staphylococcus simulans, Corynebacteriurm striatum, Corynebacterium amycolatum, and Anaerobic cocci. She was treated initially with Vancomycin and then was placed on Levaquin for the ECF. Also Cleocin was added for the Anaerobe. She has finished them. Prealbumin from 09/22/18 was 12.0. Encouraged nutritional supplementation with protein to help the healing process. Today she denies fever. Her appetite is ok. She has lost over 100 lbs since her surgery. With the right side of her abdomen improving, she has noticed the left abdominal wall developing increasing firmness and swelling and dependent edema. Progress of Wound: Stable. - Physical Exam Vital Signs Temp Pulse Resp BP 98.5 F 79 22 H 150/97 H 09/06/19 12:38 09/06/19 12:38 09/06/19 12:38 09/06/19 12:38 General: Alert, Oriented x3, Cooperative HEENT: Atraumatic Oral: Moist Mucosa Lungs: Normal air movement Cardiovascular: Regular rate Abdomen: Obese Extremities: Capillary Refill Less than 3 Seconds Skin: Ulcer/ Wound - Right lower abdomen ulcer Wound Measurements and Assessment WC - Nurse 1 - General Ulcer Measurement Start: 09/06/19 12:36 Freq: Status: Active Protocol: Activity Type Activity Date Activity User E-Sign Co-Sign Detail Recorded Client Recorded Date Recorded By Document 09/06/19 12:38 MICHAEL [id number] 09/06/19 12:43 DL 09/06/19 12:38 Wound Center Nurse 1 [Ulcer Assessment] #2 right pannus -Current Size (cm) - Length 2 -Current Size (cm) - Width 3.8 -Current Size (cm) - Depth 0.5 -Total Square Cm 7.6 -Photo Taken No -Exudate Amt Small -Exudate Type Serosanguineous -Wound Margin Thickened -Granulation Amt Large (67-100%) -Granulation Quality [place],Red -Necrosis Amt Small (1-33%) -Necrotic Tissue Type Adherent Slough -Structure Exposed N/A -Texture (Lyly-wound Skin Appearance) Scarring -Moisture (Lyly-wound Skin Appearance Dry/Scaly ) -Color (Lyly-wound Skin Appearance) No Abnormality -Temperature (Lyly-wound Skin No Abnormality Appearance) (Pt Warm) -Tenderness on Palpation (Lyly-wound No Skin Appearance) -Ulcer Cleansing Rinsed/ Irrigated with Saline -Foul Odor after Cleansing No -Anesthetic Used 4% Lidocaine Solution - Nurse 2 - General Ulcer CM Notes Start: 09/06/19 12:36 Freq: Status: Active Protocol: Activity Type Activity Date Activity User E-Sign Co-Sign Detail Recorded Client Recorded Date Recorded By Document 09/06/19 12:57 LOIS [id number] 09/06/19 13:00 LOIS 09/06/19 12:57 Wound Center Nurse 2 [Procedure/Treatment] -Time 12:58 -Correct Patient Yes -Correct Side, Site, Position Yes -Correct Procedure Yes -Procedure Performed Yes -Type of Procedure Debridement -Clinical Debridement Subcutaneous -Post Debridement Size (cm) - Length 2.3 -Post Debridement Size (cm) - Width 3.6 -Post Debridement Size (cm) - Depth 0.5 -Total Square Cm 8.28 -Wound/Ulcer Outcome Not Healed -Ulcer Cleansing Rinsed/ Irrigated with Saline -Foul Odor after Cleansing No -Bioengineered Tissue No -Bleeding Controlled with Pressure -Offloading No -Treatment Response Procedure Tolerated Well [See Physician Procedure note for Specifics] Pain Scale: 0-10 Numeric [Pain] -Is Patient Pain Free? Yes Musculoskeletal: No Muscle Wasting Neurological: Neuro grossly intact Psych/Mental Status: Normal Affect, Appropriate Debridement Note Post-Debridement Measurements/Treatment WC - Nurse 2 - General Ulcer CM Notes Start: 09/06/19 12:36 Freq: Status: Active Protocol: Activity Type Activity Date Activity User E-Sign Co-Sign Detail Recorded Client Recorded Date Recorded By Document 09/06/19 12:57 [id number] 09/06/19 13:00 LOIS 09/06/19 12:57 Wound Center Nurse 2 #2 right pannus -Time 12:58 -Correct Patient Yes -Correct Side, Site, Position Yes -Correct Procedure Yes -Procedure Performed Yes -Type of Procedure Debridement -Clinical Debridement Subcutaneous -Post Debridement Size (cm) - Length 2.3 -Post Debridement Size (cm) - Width 3.6 -Post Debridement Size (cm) - Depth 0.5 -Total Square Cm 8.28 -Wound/Ulcer Outcome Not Healed -Ulcer Cleansing Rinsed/ Irrigated with Saline -Foul Odor after Cleansing No -Bioengineered Tissue No -Bleeding Controlled with Pressure -Offloading No -Treatment Response Procedure Tolerated Well Pain Scale: 0-10 Numeric Is Patient Pain Free? Yes Wound debrided: Lower abdomen Laterality: Right Type of Debridement: Excisional debridement Anesthesia Used: 5% Lidocaine Gel Depth: Down to and including healthy tissue, in the subcutaneous layer Percentage of wound debrided: 100 Instrument Used: 5mm curette Tissue Removed: Subcutaneous tissue and slough Severity: Fat Layer Exposed Amount of bleeding with debridement: Mild Bleeding Controlled with: Pressure Patient tolerated procedure well Assessment/Plan Assessment: 1. 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 2. Massive abdominal panniculus with panniculitis, worse on left side. 3. Borderline diabetes. 4. Abdominal wall skin crease intertrigo. 5. Morbid obesity. 6. Incisional hernia. 7. s/p surgical preparation right lateral abdominal wall massive panniculus with excisional debridement skin and subcutaneous tissue for necrotizing soft tissue infection and panniculectomy (858 cm2). Plan: Continue Caitlyn dressing changes to right abdominal wall ulcer. She is having more edema and symptomatic pain on the left side of her panniculus with panniculitis. Eventually she will need further excision on the right side, but she is more symptomatic on the left so will proceed with excisional debridement and panniculectomy. Because of the difficulty we had with the last surgery with blood pressure, I will admit her the day before for IV hydration and to begin IV antibitiotics. Surgery will be under general anesthesia with a surgical observation overnight stay in the hospital. Because of issues with Home Health coverage, she may need to go to an [facility] initially for the VAC care along with IV antibiotics. She voices understanding and wishes to proceed only if she may go home after surgery. Her mother states she can learn to do the VAC dressing changes. Patient was informed of the risks and complications of the procedure including alternatives to surgery. These were discussed with her personally. She voices understanding and wishes to proceed. Surgery scheduled 09/13/19. Follow-up 3 weeks. The right lateral abdominal wall ulcer is stable. With the weight of her panniculus, I anticipate the right lateral abdominal wall ulcer will not heal without further excisional surgery. After the left sided surgery, will then address the right side. Code Visit 111xxx-113xx: [id number] Josephine subq tissue 20 sq cm/<
[2019-09-26 10:01] VITALS: BP 152/85; PULSE 78; RESP 22; TEMP 36.3; BMI 78.4
--- NOTE | 2019-09-26 15:48 | PCM.WC.PN ---
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 Status: Chronic Code(s): L98.492 - Non-pressure chronic ulcer of skin of other sites with fat layer exposed (2) Erythema intertrigo Status: Chronic Code(s): L30.4 - Erythema intertrigo Comment: abdominal wall skin crease intertrigo (3) Panniculitis Status: Chronic Code(s): M79.3 - Panniculitis, unspecified (4) Abdominal panniculus, symptomatic Status: Chronic Code(s): E65 - Localized adiposity (5) Super-super obese Status: Chronic Code(s): E66.9 - Obesity, unspecified (6) Prediabetes Status: Chronic Code(s): R73.03 - Prediabetes Type of Wound Date of Service: 09/26/19 Chief Complaint: Nonhealing ulcer right lateral abdominal wall and left sided abdominal pannniculus with panniculitis. History of Wound: Surgery 09/21/18 - Surgical preparation right lateral abdominal wall massive panniculus with excisional debridement skin and subcutaneous tissue for necrotizing soft tissue infection and panniculectomy (858 cm2). Wound care - Caitlyn. Today denies any fever, chills or nausea. She states her appetite is good and she is supplementing with protein shakes. Operative culture - Staphylococcus simulans, Corynebacteriurm striatum, Corynebacterium amycolatum, and Anaerobic cocci. She was treated initially with Vancomycin and then was placed on Levaquin for the ECF. Also Cleocin was added for the Anaerobe. She has finished them. Prealbumin from 09/22/18 was 12.0. Encouraged nutritional supplementation with protein to help the healing process. Today she denies fever. Her appetite is ok. With the right side of her abdomen improving, she has noticed the left abdominal wall developing increasing firmness and swelling and dependent edema. She had been scheduled for surgery for the left abdominal wall for 09/13/19 but it was cancelled due to her TSH level of 102.5. Progress of Wound: Stable. - Physical Exam Vital Signs Temp Pulse Resp BP 97.3 F L 78 22 H 152/85 H 09/26/19 10:01 09/26/19 10:01 09/26/19 10:01 09/26/19 10:01 General: Alert, Oriented x3, Cooperative HEENT: Atraumatic Oral: Moist Mucosa Lungs: Normal air movement Cardiovascular: Regular rate Abdomen: Bowel Sounds Present Extremities: No edema Skin: Ulcer/ Wound - right lower abdominal ulcer Wound Measurements and Assessment - Nurse 1 - General Ulcer Measurement Start: 09/06/19 12:36 Freq: Status: Active Protocol: Activity Type Activity Date Activity User E-Sign Co-Sign Detail Recorded Client Recorded Date Recorded By Document 09/26/19 10:01 MICHAEL [id number] 09/26/19 10:05 MICHAEL 09/26/19 10:01 Wound Center Nurse 1 [Ulcer Assessment] #2 right pannus -Current Size (cm) - Length 1.6 -Current Size (cm) - Width 2.8 -Current Size (cm) - Depth 0.5 -Total Square Cm 4.48 -Photo Taken No -Exudate Amt Small -Exudate Type Serosanguineous -Wound Margin Thickened -Granulation Amt Large (67-100%) -Granulation Quality [place] -Necrosis Amt Small (1-33%) -Necrotic Tissue Type Adherent Slough -Structure Exposed N/A -Texture (Lyly-wound Skin Appearance) Scarring -Moisture (Lyly-wound Skin Appearance Dry/Scaly ) -Color (Lyly-wound Skin Appearance) No Abnormality -Temperature (Lyly-wound Skin No Abnormality Appearance) (Pt Warm) -Tenderness on Palpation (Lyly-wound No Skin Appearance) -Ulcer Cleansing Wound Cleanser -Foul Odor after Cleansing No -Anesthetic Used 4% Lidocaine Solution - Nurse 2 - General Ulcer CM Notes Start: 09/06/19 12:36 Freq: Status: Active Protocol: Activity Type Activity Date Activity User E-Sign Co-Sign Detail Recorded Client Recorded Date Recorded By Document 09/26/19 10:30 LOIS [id number] 09/26/19 10:32 LOIS 09/26/19 10:30 Wound Center Nurse 2 [Procedure/Treatment] -Time 10:30 -Correct Patient Yes -Correct Side, Site, Position Yes -Correct Procedure Yes -Procedure Performed Yes -Type of Procedure Debridement -Clinical Debridement Subcutaneous -Post Debridement Size (cm) - Length 2.5 -Post Debridement Size (cm) - Width 3.1 -Post Debridement Size (cm) - Depth 0.4 -Total Square Cm 7.75 -Wound/Ulcer Outcome Not Healed -Ulcer Cleansing Rinsed/ Irrigated with Saline -Foul Odor after Cleansing No -Bioengineered Tissue No -Bleeding Controlled with Pressure -Offloading No -Treatment Response Procedure Tolerated Well [See Physician Procedure note for Specifics] Pain Scale: 0-10 Numeric [Pain] -Is Patient Pain Free? Yes Musculoskeletal: No Muscle Wasting Neurological: Neuro grossly intact Psych/Mental Status: Normal Affect, Appropriate Debridement Note Post-Debridement Measurements/Treatment WC - Nurse 2 - General Ulcer CM Notes Start: 09/06/19 12:36 Freq: Status: Active Protocol: Activity Type Activity Date Activity User E-Sign Co-Sign Detail Recorded Client Recorded Date Recorded By Document 09/06/19 12:57 [id number] 09/06/19 13:00 Document 09/26/19 10:30 [id number] 09/26/19 10:32 09/06/19 09/26/19 12:57 10:30 Wound Center Nurse 2 #2 right pannus -Time 12:58 10:30 -Correct Patient Yes Yes -Correct Side, Site, Position Yes Yes -Correct Procedure Yes Yes -Procedure Performed Yes Yes -Type of Procedure Debridement Debridement -Clinical Debridement Subcutaneous Subcutaneous -Post Debridement Size (cm) - Length 2.3 2.5 -Post Debridement Size (cm) - Width 3.6 3.1 -Post Debridement Size (cm) - Depth 0.5 0.4 -Total Square Cm 8.28 7.75 -Wound/Ulcer Outcome Not Healed Not Healed -Ulcer Cleansing Rinsed/ Rinsed/ Irrigated with Irrigated with Saline Saline -Foul Odor after Cleansing No No -Bioengineered Tissue No No -Bleeding Controlled with Pressure Pressure -Offloading No No -Treatment Response Procedure Procedure Tolerated Well Tolerated Well Pain Scale: 0-10 Numeric Is Patient Pain Free? Yes Yes Wound debrided: lower abdominal ulcer Laterality: Right Type of Debridement: Excisional debridement Anesthesia Used: 5% Lidocaine Gel Depth: Down to and including healthy tissue, in the subcutaneous layer Percentage of wound debrided: 100 Instrument Used: 5mm curette Tissue Removed: Subcutaneous tissue and slough Severity: Fat Layer Exposed Amount of bleeding with debridement: Mild Bleeding Controlled with: Pressure Patient tolerated procedure well Assessment/Plan Assessment: 1. 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 2. Massive abdominal panniculus with panniculitis, worse on left side. 3. Borderline diabetes. 4. Abdominal wall skin crease intertrigo. 5. Morbid obesity. 6. Incisional hernia. 7. s/p surgical preparation right lateral abdominal wall massive panniculus with excisional debridement skin and subcutaneous tissue for necrotizing soft tissue infection and panniculectomy (858 cm2). Plan: Continue Caitlyn dressing changes to right abdominal wall ulcer. She is having more edema and symptomatic pain on the left side of her panniculus with panniculitis. Eventually she will need further excision on the right side, but she is more symptomatic on the left so will proceed with excisional debridement and panniculectomy. Because of the difficulty we had with the last surgery with blood pressure, I will admit her the day before for IV hydration and to begin IV antibitiotics. Surgery will be under general anesthesia with a surgical observation overnight stay in the hospital. Because of issues with Home Health coverage, she may need to go to an F initially for the VAC care along with IV antibiotics. She voices understanding and wishes to proceed only if she may go home after surgery. Her mother states she can learn to do the VAC dressing changes. Patient was informed of the risks and complications of the procedure including alternatives to surgery. These were discussed with her personally. She voices understanding and wishes to proceed. She had been scheduled for surgery for the left abdominal wall for 09/13/19 but it was cancelled due to her TSH level of 102.50. Her PCP is managing her thyroid medication. The right lateral abdominal wall ulcer is stable. With the weight of her panniculus, I anticipate the right lateral abdominal wall ulcer will not heal without further excisional surgery. After the left sided surgery, will then address the right side. Code Visit [id number]: [id number] Josephine subq tissue 20 sq cm/<
== END 2019-10-04 23:59 ==
LOC: WC 10:00
PROVIDERS: Family Provider Student in an Organized Health Care Education/Training Program; PCP Student in an Organized Health Care Education/Training Program; Visit Provider Nurse Practitioner Family
DX: L98.492 Non-pressure chronic ulcer of skin of other sites with fat layer exposed (principal); L30.4 Erythema intertrigo; M79.3 Panniculitis, unspecified; E65 Localized adiposity; E66.01 Morbid (severe) obesity due to excess calories; Z71.3 Dietary counseling and surveillance; R73.03 Prediabetes
CPT/HCPCS: 11042

== ENCOUNTER 2019-10-24 13:15 | Outpatient (RCR) | payer MEDICAID, SELFPAY ==
[2019-10-05 00:27] VITALS: BP 152/85; PULSE 78; RESP 22; TEMP 36.3
[2019-10-10 09:33] VITALS: BP 162/95; PULSE 88; RESP 20; TEMP 36.2; BMI 78.4
--- NOTE | 2019-10-10 14:45 | PCM.WC.PN ---
(1) Abdominal panniculus, symptomatic Status: Chronic Current Visit: Yes Code(s): E65 - Localized adiposity (2) Skin ulcer of abdominal wall with fat layer exposed Status: Chronic Current Visit: Yes Code(s): L98.492 - Non-pressure chronic ulcer of skin of other sites with fat layer exposed (3) Obesity, Class III, BMI 40-49.9 (morbid obesity) Status: Chronic Current Visit: Yes Code(s): E66.01 - Morbid (severe) obesity due to excess calories (4) Prediabetes Status: Chronic Current Visit: Yes Code(s): R73.03 - Prediabetes Type of Wound Date of Service: 10/10/19 Chief Complaint: Nonhealing ulcer right lateral abdominal wall and left sided abdominal pannniculus with panniculitis. History of Wound: Surgery 09/21/18 - Surgical preparation right lateral abdominal wall massive panniculus with excisional debridement skin and subcutaneous tissue for necrotizing soft tissue infection and panniculectomy (858 cm2). Wound care - Caitlyn. Today denies any fever, chills or nausea. She states her appetite is good and she is supplementing with protein shakes. Operative culture - Staphylococcus simulans, Corynebacteriurm striatum, Corynebacterium amycolatum, and Anaerobic cocci. She was treated initially with Vancomycin and then was placed on Levaquin for the ECF. Also Cleocin was added for the Anaerobe. She has finished them. Prealbumin from 09/22/18 was 12.0. Encouraged nutritional supplementation with protein to help the healing process. Today she denies fever. Her appetite is ok. With the right side of her abdomen improving, she has noticed the left abdominal wall developing increasing firmness and swelling and dependent edema. She had been scheduled for surgery for the left abdominal wall for 09/13/19 but it was cancelled due to her TSH level of 102.5. Progress of Wound: Stable. - Physical Exam Vital Signs Temp Pulse Resp BP 97.1 F L 88 20 H 162/95 H 10/10/19 09:33 10/10/19 09:33 10/10/19 09:33 10/10/19 09:33 General: Alert, Oriented x3, Cooperative HEENT: Atraumatic Oral: Moist Mucosa Lungs: Normal air movement Cardiovascular: Regular rate Extremities: Capillary Refill Less than 3 Seconds, Edema Skin: Ulcer/ Wound - Right lower abdominal ulcer Wound Measurements and Assessment WC - Nurse 1 - General Ulcer Measurement Start: 10/10/19 09:33 Freq: Status: Active Protocol: Activity Type Activity Date Activity User E-Sign Co-Sign Detail Recorded Client Recorded Date Recorded By Document 10/10/19 09:33 MW [id number] 10/10/19 09:37 MW 10/10/19 09:33 Wound Center Nurse 1 [Ulcer Assessment] #2 right pannus -Combined with other wound No -Current Size (cm) - Length 1.2 -Current Size (cm) - Width 2.5 -Current Size (cm) - Depth 0.3 -Total Square Cm 3.00 -Photo Taken No -Epithelialization Medium 34-66% -Tunneling No -Undermining/Tunneling No -Circular Undermining No -Exudate Amt Small -Exudate Type Serosanguineous -Wound Margin Flat & Intact -Granulation Amt Medium (34-66%) -Granulation Quality [place] -Slough/Fibrin Yes -Necrosis Amt Medium (34-66%) -Necrotic Tissue Type Adherent Slough -Structure Exposed N/A -Texture (Lyly-wound Skin Appearance) Assessed, Scarring -Moisture (Lyly-wound Skin Appearance Assessed,Dry/ ) Scaly -Color (Lyly-wound Skin Appearance) No Abnormality, Assessed -Temperature (Lyly-wound Skin No Abnormality Appearance) (Pt Warm) -Tenderness on Palpation (Lyly-wound No Skin Appearance) -Ulcer Cleansing Rinsed/ Irrigated with Saline -Foul Odor after Cleansing No -Anesthetic Used 4% Lidocaine Solution [Edema Assessment] -Lower Limb Edema Present No WC - Nurse 2 - General Ulcer CM Notes Start: 10/10/19 09:33 Freq: Status: Active Protocol: Activity Type Activity Date Activity User E-Sign Co-Sign Detail Recorded Client Recorded Date Recorded By Document 10/10/19 10:40 LOIS [id number] 10/10/19 10:41 LOIS 10/10/19 10:40 Wound Center Nurse 2 [Procedure/Treatment] #2 right pannus -Time 10:40 -Correct Patient Yes -Correct Side, Site, Position Yes -Correct Procedure Yes -Procedure Performed Yes -Type of Procedure Debridement -Clinical Debridement Subcutaneous -Post Debridement Size (cm) - Length 2.0 -Post Debridement Size (cm) - Width 5.0 -Post Debridement Size (cm) - Depth 0.4 -Total Square Cm 10.00 -Wound/Ulcer Outcome Not Healed -Ulcer Cleansing Rinsed/ Irrigated with Saline -Foul Odor after Cleansing No -Bioengineered Tissue No -Bleeding Controlled with Pressure -Offloading No -Treatment Response Procedure Tolerated Well [See Physician Procedure note for Specifics] Pain Scale: 0-10 Numeric [Pain] -Is Patient Pain Free? Yes Musculoskeletal: No Muscle Wasting Neurological: Neuro grossly intact Psych/Mental Status: Normal Affect, Appropriate Debridement Note Post-Debridement Measurements/Treatment WC - Nurse 2 - General Ulcer CM Notes Start: 10/10/19 09:33 Freq: Status: Active Protocol: Activity Type Activity Date Activity User E-Sign Co-Sign Detail Recorded Client Recorded Date Recorded By Document 10/10/19 10:40 LOIS [id number] 10/10/19 10:41 LOIS 10/10/19 10:40 Wound Center Nurse 2 #2 right pannus -Time 10:40 -Correct Patient Yes -Correct Side, Site, Position Yes -Correct Procedure Yes -Procedure Performed Yes -Type of Procedure Debridement -Clinical Debridement Subcutaneous -Post Debridement Size (cm) - Length 2.0 -Post Debridement Size (cm) - Width 5.0 -Post Debridement Size (cm) - Depth 0.4 -Total Square Cm 10.00 -Wound/Ulcer Outcome Not Healed -Ulcer Cleansing Rinsed/ Irrigated with Saline -Foul Odor after Cleansing No -Bioengineered Tissue No -Bleeding Controlled with Pressure -Offloading No -Treatment Response Procedure Tolerated Well Pain Scale: 0-10 Numeric Is Patient Pain Free? Yes Wound debrided: lower abdomen Laterality: Right Type of Debridement: Excisional debridement Anesthesia Used: 5% Lidocaine Gel Depth: Down to and including healthy tissue, in the subcutaneous layer Percentage of wound debrided: 100 Instrument Used: 5mm curette Tissue Removed: subcutaneous tissue and slough Severity: Fat Layer Exposed Amount of bleeding with debridement: Mild Bleeding Controlled with: Pressure Patient tolerated procedure well Assessment/Plan Active Problems (Last Reviewed 11/19/18 @ 10:25 by Angela Song) Abdominal panniculus, symptomatic (Chronic) Skin ulcer of abdominal wall with fat layer exposed (Chronic) Obesity, Class III, BMI 40-49.9 (morbid obesity) (Chronic) Prediabetes (Chronic) Assessment: 1. 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 2. Massive abdominal panniculus with panniculitis, worse on left side. 3. Borderline diabetes. 4. Abdominal wall skin crease intertrigo. 5. Morbid obesity. 6. Incisional hernia. 7. s/p surgical preparation right lateral abdominal wall massive panniculus with excisional debridement skin and subcutaneous tissue for necrotizing soft tissue infection and panniculectomy (858 cm2). Plan: Continue Caitlyn dressing changes to right abdominal wall ulcer. She is having more edema and symptomatic pain on the left side of her panniculus with panniculitis. Eventually she will need further excision on the right side, but she is more symptomatic on the left so will proceed with excisional debridement and panniculectomy. Because of the difficulty we had with the last surgery with blood pressure, I will admit her the day before for IV hydration and to begin IV antibitiotics. Surgery will be under general anesthesia with a surgical observation overnight stay in the hospital. Because of issues with Home Health coverage, she may need to go to an F initially for the VAC care along with IV antibiotics. She voices understanding and wishes to proceed only if she may go home after surgery. Her mother states she can learn to do the VAC dressing changes. Patient was informed of the risks and complications of the procedure including alternatives to surgery. These were discussed with her personally. She voices understanding and wishes to proceed. She had been scheduled for surgery for the left abdominal wall for 09/13/19 but it was cancelled due to her TSH level of 102.50. Her PCP is managing her thyroid medication. The right lateral abdominal wall ulcer is stable. With the weight of her panniculus, I anticipate the right lateral abdominal wall ulcer will not heal without further excisional surgery. After the left sided surgery, will then address the right side. Follow up in 2 weeks. Code Visit [id number]: [id number] Josephine subq tissue 20 sq cm/<
[2019-10-24 11:58] VITALS: BP 148/93; PULSE 97; RESP 18; TEMP 35.9; BMI 78.4
--- NOTE | 2019-10-24 16:24 | PCM.WC.PN ---
(1) Abdominal panniculus, symptomatic Status: Chronic Current Visit: Yes Code(s): E65 - Localized adiposity (2) Skin ulcer of abdominal wall with fat layer exposed Status: Chronic Current Visit: Yes Code(s): L98.492 - Non-pressure chronic ulcer of skin of other sites with fat layer exposed (3) Obesity, Class III, BMI 40-49.9 (morbid obesity) Status: Chronic Current Visit: Yes Code(s): E66.01 - Morbid (severe) obesity due to excess calories (4) Prediabetes Status: Chronic Current Visit: Yes Code(s): R73.03 - Prediabetes Type of Wound Date of Service: 10/24/19 Chief Complaint: Nonhealing ulcer right lateral abdominal wall and left sided abdominal pannniculus with panniculitis. History of Wound: Surgery 09/21/18 - Surgical preparation right lateral abdominal wall massive panniculus with excisional debridement skin and subcutaneous tissue for necrotizing soft tissue infection and panniculectomy (858 cm2). Wound care - Caitlyn. Today denies any fever, chills or nausea. She states her appetite is good and she is supplementing with protein shakes. Operative culture - Staphylococcus simulans, Corynebacteriurm striatum, Corynebacterium amycolatum, and Anaerobic cocci. She was treated initially with Vancomycin and then was placed on Levaquin for the ECF. Also Cleocin was added for the Anaerobe. She has finished them. Prealbumin from 09/22/18 was 12.0. Encouraged nutritional supplementation with protein to help the healing process. Today she denies fever. Her appetite is ok. With the right side of her abdomen improving, she has noticed the left abdominal wall developing increasing firmness and swelling and dependent edema. She had been scheduled for surgery for the left abdominal wall for 09/13/19 but it was cancelled due to her TSH level of 102.5. Progress of Wound: Stable. - Physical Exam Vital Signs Temp Pulse Resp BP 96.6 F L 97 18 148/93 H 10/24/19 11:58 10/24/19 11:58 10/24/19 11:58 10/24/19 11:58 General: Alert, Oriented x3, Cooperative HEENT: Atraumatic Oral: Moist Mucosa Lungs: Normal air movement Cardiovascular: Regular rate Extremities: Capillary Refill Less than 3 Seconds Skin: Ulcer/ Wound - Right lower abdominal ulcer Wound Measurements and Assessment WC - Nurse 1 - General Ulcer Measurement Start: 10/10/19 09:33 Freq: Status: Active Protocol: Activity Type Activity Date Activity User E-Sign Co-Sign Detail Recorded Client Recorded Date Recorded By Document 10/24/19 11:58 MW [id number] 10/24/19 12:01 MW 10/24/19 11:58 Wound Center Nurse 1 [Ulcer Assessment] #2 right pannus -Combined with other wound No -Current Size (cm) - Length 1.4 -Current Size (cm) - Width 2.0 -Current Size (cm) - Depth 0.2 -Total Square Cm 2.80 -Photo Taken No -Epithelialization None Present -Tunneling No -Undermining/Tunneling No -Circular Undermining No -Exudate Amt Small -Exudate Type Serosanguineous -Wound Margin Distinct, Outline Attached -Granulation Amt Medium (34-66%) -Granulation Quality [employer] -Slough/Fibrin Yes -Necrosis Amt Medium (34-66%) -Necrotic Tissue Type Adherent Slough -Structure Exposed N/A -Texture (Lyly-wound Skin Appearance) Assessed, Scarring -Moisture (Lyly-wound Skin Appearance Assessed,Dry/ ) Scaly -Color (Lyly-wound Skin Appearance) No Abnormality, Assessed -Temperature (Lyly-wound Skin No Abnormality Appearance) (Pt Warm) -Tenderness on Palpation (Lyly-wound No Skin Appearance) -Ulcer Cleansing Rinsed/ Irrigated with Saline -Foul Odor after Cleansing No -Anesthetic Used 5% Lidocaine Gel [Edema Assessment] -Lower Limb Edema Present No WC - Nurse 2 - General Ulcer CM Notes Start: 10/10/19 09:33 Freq: Status: Active Protocol: Activity Type Activity Date Activity User E-Sign Co-Sign Detail Recorded Client Recorded Date Recorded By Document 10/24/19 12:12 MW [id number] 10/24/19 12:15 MW 10/24/19 12:12 Wound Center Nurse 2 [Procedure/Treatment] #2 right pannus -Time 12:12 -Correct Patient Yes -Correct Side, Site, Position Yes -Correct Procedure Yes -Procedure Performed Yes -Type of Procedure Debridement -Clinical Debridement Subcutaneous -Post Debridement Size (cm) - Length 2.0 -Post Debridement Size (cm) - Width 3.6 -Post Debridement Size (cm) - Depth 0.5 -Total Square Cm 7.20 -Wound/Ulcer Outcome Not Healed -Ulcer Cleansing Rinsed/ Irrigated with Saline -Foul Odor after Cleansing No -Bioengineered Tissue No -Bleeding Controlled with Pressure -Offloading No -Treatment Response Procedure Tolerated Well [See Physician Procedure note for Specifics] Pain Scale: 0-10 Numeric [Pain] -Is Patient Pain Free? Yes Musculoskeletal: No Tenderness to Palpation of Joints or Extremities Neurological: Neuro grossly intact Psych/Mental Status: Normal Affect, Appropriate Debridement Note Post-Debridement Measurements/Treatment WC - Nurse 2 - General Ulcer CM Notes Start: 10/10/19 09:33 Freq: Status: Active Protocol: Activity Type Activity Date Activity User E-Sign Co-Sign Detail Recorded Client Recorded Date Recorded By Document 10/10/19 10:40 [id number] 10/10/19 10:41 Document 10/24/19 12:12 MW [id number] 10/24/19 12:15 MW 10/10/19 10/24/19 10:40 12:12 Wound Center Nurse 2 #2 right pannus -Time 10:40 12:12 -Correct Patient Yes Yes -Correct Side, Site, Position Yes Yes -Correct Procedure Yes Yes -Procedure Performed Yes Yes -Type of Procedure Debridement Debridement -Clinical Debridement Subcutaneous Subcutaneous -Post Debridement Size (cm) - Length 2.0 2.0 -Post Debridement Size (cm) - Width 5.0 3.6 -Post Debridement Size (cm) - Depth 0.4 0.5 -Total Square Cm 10.00 7.20 -Wound/Ulcer Outcome Not Healed Not Healed -Ulcer Cleansing Rinsed/ Rinsed/ Irrigated with Irrigated with Saline Saline -Foul Odor after Cleansing No No -Bioengineered Tissue No No -Bleeding Controlled with Pressure Pressure -Offloading No No -Treatment Response Procedure Procedure Tolerated Well Tolerated Well Pain Scale: 0-10 Numeric Is Patient Pain Free? Yes Yes Wound debrided: lower abdomen Laterality: Right Type of Debridement: Excisional debridement Anesthesia Used: 5% Lidocaine Gel Depth: Down to and including healthy tissue, in the subcutaneous layer Instrument Used: 5mm curette Tissue Removed: Subcutaneous tissue and slough Severity: Fat Layer Exposed Amount of bleeding with debridement: Mild Bleeding Controlled with: Pressure Patient tolerated procedure well Assessment/Plan Active Problems (Last Reviewed 11/19/18 @ 10:25 by Angela Song) Abdominal panniculus, symptomatic (Chronic) Skin ulcer of abdominal wall with fat layer exposed (Chronic) Obesity, Class III, BMI 40-49.9 (morbid obesity) (Chronic) Prediabetes (Chronic) Assessment: 1. 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 2. Massive abdominal panniculus with panniculitis, worse on left side. 3. Borderline diabetes. 4. Abdominal wall skin crease intertrigo. 5. Morbid obesity. 6. Incisional hernia. 7. s/p surgical preparation right lateral abdominal wall massive panniculus with excisional debridement skin and subcutaneous tissue for necrotizing soft tissue infection and panniculectomy (858 cm2). Plan: Continue Caitlyn dressing changes to right abdominal wall ulcer. She is having more edema and symptomatic pain on the left side of her panniculus with panniculitis. Eventually she will need further excision on the right side, but she is more symptomatic on the left so will proceed with excisional debridement and panniculectomy. Because of the difficulty we had with the last surgery with blood pressure, I will admit her the day before for IV hydration and to begin IV antibitiotics. Surgery will be under general anesthesia with a surgical observation overnight stay in the hospital. Because of issues with Home Health coverage, she may need to go to an [facility] initially for the VAC care along with IV antibiotics. She voices understanding and wishes to proceed only if she may go home after surgery. Her mother states she can learn to do the VAC dressing changes. Patient was informed of the risks and complications of the procedure including alternatives to surgery. These were discussed with her personally. She voices understanding and wishes to proceed. She had been scheduled for surgery for the left abdominal wall for 09/13/19 but it was cancelled due to her TSH level of 102.50. Her TSH recheck was last week 10/21/19 was down to 66. Her PCP is managing her thyroid medication. The right lateral abdominal wall ulcer is stable. With the weight of her panniculus, I anticipate the right lateral abdominal wall ulcer will not heal without further excisional surgery. After the left sided surgery, will then address the right side. She states she is having a lot of edema again more on the right side instead of the left side. Instructed her to try not to lay on the one side all the time, try to rotate back and forth. Follow up in 2 weeks. Code Visit [id number]: [id number] Josephine subq tissue 20 sq cm/<
== END 2019-11-04 23:59 ==
LOC: WC 13:15
PROVIDERS: Family Provider Student in an Organized Health Care Education/Training Program; PCP Student in an Organized Health Care Education/Training Program; Visit Provider Nurse Practitioner Family
DX: L98.492 Non-pressure chronic ulcer of skin of other sites with fat layer exposed (principal); L30.4 Erythema intertrigo; E66.01 Morbid (severe) obesity due to excess calories; Z71.3 Dietary counseling and surveillance; R73.03 Prediabetes; E65 Localized adiposity; M79.3 Panniculitis, unspecified
CPT/HCPCS: 11042

== ENCOUNTER 2019-11-28 09:30 | Outpatient (RCR) | payer MEDICAID, SELFPAY ==
[2019-11-05 00:31] VITALS: BP 148/93; PULSE 97; RESP 18; TEMP 35.9
[2019-11-07 09:46] VITALS: BP 150/88; PULSE 101; RESP 20; TEMP 36.3; BMI 78.4
--- NOTE | 2019-11-07 15:05 | PCM.WC.PN ---
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 Status: Chronic Code(s): L98.492 - Non-pressure chronic ulcer of skin of other sites with fat layer exposed (2) Abdominal panniculus, symptomatic Status: Chronic Code(s): E65 - Localized adiposity (3) Erythema intertrigo Status: Chronic Code(s): L30.4 - Erythema intertrigo Comment: abdominal wall skin crease intertrigo (4) Obesity, Class III, BMI 40-49.9 (morbid obesity) Status: Chronic Code(s): E66.01 - Morbid (severe) obesity due to excess calories (5) Prediabetes Status: Chronic Code(s): R73.03 - Prediabetes Type of Wound Date of Service: 11/07/19 Chief Complaint: Nonhealing ulcer right lateral abdominal wall and left sided abdominal pannniculus with panniculitis. History of Wound: Surgery 09/21/18 - Surgical preparation right lateral abdominal wall massive panniculus with excisional debridement skin and subcutaneous tissue for necrotizing soft tissue infection and panniculectomy (858 cm2). Wound care - Moistened Caitlyn. Today denies any fever, chills or nausea. She states her appetite is good and she is supplementing with protein shakes. Operative culture - Staphylococcus simulans, Corynebacteriurm striatum, Corynebacterium amycolatum, and Anaerobic cocci. She was treated initially with Vancomycin and then was placed on Levaquin for the ECF. Also Cleocin was added for the Anaerobe. She has finished them. Prealbumin from 09/22/18 was 12.0. Encouraged nutritional supplementation with protein to help the healing process. Today she denies fever. Her appetite is ok. With the right side of her abdomen improving, she has noticed the left abdominal wall developing increasing firmness and swelling and dependent edema. She had been scheduled for surgery for the left abdominal wall for 09/13/19 but it was cancelled due to her TSH level of 102.5. Progress of Wound: Mild improvement - Physical Exam Vital Signs Temp Pulse Resp BP 97.3 F L 101 H 20 H 150/88 H 11/07/19 09:46 11/07/19 09:46 11/07/19 09:46 11/07/19 09:46 General: Alert, Oriented x3, Cooperative HEENT: Atraumatic Oral: Moist Mucosa Lungs: Normal air movement Cardiovascular: Regular rate Abdomen: Obese Extremities: Capillary Refill Less than 3 Seconds Skin: Ulcer/ Wound - right abdominal Wound Measurements and Assessment WC - Nurse 1 - General Ulcer Measurement Start: 11/07/19 09:46 Freq: Status: Active Protocol: Activity Type Activity Date Activity User E-Sign Co-Sign Detail Recorded Client Recorded Date Recorded By Document 11/07/19 09:46 MW [id number] 11/07/19 09:52 MW 11/07/19 09:46 Wound Center Nurse 1 [Ulcer Assessment] #2 right pannus -Combined with other wound No -Current Size (cm) - Length 1.3 -Current Size (cm) - Width 2.2 -Current Size (cm) - Depth 0.3 -Total Square Cm 2.86 -Date of Last Picture (Recall this 11/07/19 field) -Photo Taken Yes -Epithelialization None Present -Tunneling No -Undermining/Tunneling No -Circular Undermining No -Exudate Amt Small -Exudate Type Serosanguineous -Wound Margin Flat & Intact -Granulation Amt Medium (34-66%) -Granulation Quality [place] -Slough/Fibrin Yes -Necrosis Amt Small (1-33%) -Necrotic Tissue Type Adherent Slough -Structure Exposed N/A -Texture (Lyly-wound Skin Appearance) Assessed, Scarring -Moisture (Lyly-wound Skin Appearance No Abnormality, ) Dry/Scaly -Color (Lyly-wound Skin Appearance) No Abnormality, Assessed -Temperature (Lyly-wound Skin No Abnormality Appearance) (Pt Warm) -Tenderness on Palpation (Lyly-wound No Skin Appearance) -Ulcer Cleansing Rinsed/ Irrigated with Saline -Foul Odor after Cleansing No -Anesthetic Used 5% Lidocaine Gel [Edema Assessment] -Lower Limb Edema Present No WC - Nurse 2 - General Ulcer CM Notes Start: 11/07/19 09:46 Freq: Status: Active Protocol: Activity Type Activity Date Activity User E-Sign Co-Sign Detail Recorded Client Recorded Date Recorded By Document 11/07/19 10:19 JF [id number] 11/07/19 10:22 JF 11/07/19 10:19 Wound Center Nurse 2 [Procedure/Treatment] #2 right pannus -Time 10:20 -Correct Patient Yes -Correct Side, Site, Position Yes -Correct Procedure Yes -Procedure Performed Yes -Type of Procedure Debridement -Clinical Debridement Subcutaneous -Post Debridement Size (cm) - Length 1.0 -Post Debridement Size (cm) - Width 2.2 -Post Debridement Size (cm) - Depth 0.3 -Total Square Cm 2.20 -Wound/Ulcer Outcome Not Healed -Ulcer Cleansing Rinsed/ Irrigated with Saline -Foul Odor after Cleansing No -Bioengineered Tissue No -Bleeding Controlled with Pressure -Offloading No -Treatment Response Procedure Tolerated Well [See Physician Procedure note for Specifics] Pain Scale: 0-10 Numeric [Pain] -Is Patient Pain Free? Yes Musculoskeletal: Tenderness Neurological: Neuro grossly intact Psych/Mental Status: Normal Affect, Appropriate Debridement Note Post-Debridement Measurements/Treatment WC - Nurse 2 - General Ulcer CM Notes Start: 11/07/19 09:46 Freq: Status: Active Protocol: Activity Type Activity Date Activity User E-Sign Co-Sign Detail Recorded Client Recorded Date Recorded By Document 11/07/19 10:19 LOIS [id number] 11/07/19 10:22 LOIS 11/07/19 10:19 Wound Center Nurse 2 #2 right pannus -Time 10:20 -Correct Patient Yes -Correct Side, Site, Position Yes -Correct Procedure Yes -Procedure Performed Yes -Type of Procedure Debridement -Clinical Debridement Subcutaneous -Post Debridement Size (cm) - Length 1.0 -Post Debridement Size (cm) - Width 2.2 -Post Debridement Size (cm) - Depth 0.3 -Total Square Cm 2.20 -Wound/Ulcer Outcome Not Healed -Ulcer Cleansing Rinsed/ Irrigated with Saline -Foul Odor after Cleansing No -Bioengineered Tissue No -Bleeding Controlled with Pressure -Offloading No -Treatment Response Procedure Tolerated Well Pain Scale: 0-10 Numeric Is Patient Pain Free? Yes Wound debrided: abdominal ulcer Laterality: Right Type of Debridement: Excisional debridement Anesthesia Used: 5% Lidocaine Gel Depth: Down to and including healthy tissue, in the subcutaneous layer Percentage of wound debrided: 100 Instrument Used: 5mm curette Tissue Removed: subcutaneous tissue and slough Severity: Fat Layer Exposed Amount of bleeding with debridement: Mild Bleeding Controlled with: Pressure Patient tolerated procedure well Assessment/Plan Assessment: 1. 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 2. Massive abdominal panniculus with panniculitis, worse on left side. 3. Borderline diabetes. 4. Abdominal wall skin crease intertrigo. 5. Morbid obesity. 6. Incisional hernia. 7. s/p surgical preparation right lateral abdominal wall massive panniculus with excisional debridement skin and subcutaneous tissue for necrotizing soft tissue infection and panniculectomy (858 cm2). Plan: Continue Moistened Caitlyn dressing changes to right abdominal wall ulcer. She is having more edema and symptomatic pain on the left side of her panniculus with panniculitis. Eventually she will need further excision on the right side, but she is more symptomatic on the left so will proceed with excisional debridement and panniculectomy. Because of the difficulty we had with the last surgery with blood pressure, I will admit her the day before for IV hydration and to begin IV antibitiotics. Surgery will be under general anesthesia with a surgical observation overnight stay in the hospital. Because of issues with Home Health coverage, she may need to go to an [facility] initially for the VAC care along with IV antibiotics. She voices understanding and wishes to proceed only if she may go home after surgery. Her mother states she can learn to do the VAC dressing changes. Patient was informed of the risks and complications of the procedure including alternatives to surgery. These were discussed with her personally. She voices understanding and wishes to proceed. She had been scheduled for surgery for the left abdominal wall for 09/13/19 but it was cancelled due to her TSH level of 102.50. Her TSH recheck was last week 10/21/19 was down to 66. Her PCP is managing her thyroid medication. The right lateral abdominal wall ulcer is stable. With the weight of her panniculus, I anticipate the right lateral abdominal wall ulcer will not heal without further excisional surgery. After the left sided surgery, will then address the right side. She states she is having a lot of edema again more on the right side instead of the left side. Instructed her to try not to lay on the one side all the time, try to rotate back and forth. Follow up in 3 weeks. Code Visit [id number]: [id number] Josephine subq tissue 20 sq cm/<
[2019-11-28 09:06] VITALS: BP 158/58; PULSE 91; RESP 18; TEMP 36.4; BMI 78.4
--- NOTE | 2019-11-28 10:14 | PCM.WC.PN ---
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 Status: Chronic Current Visit: Yes Code(s): L98.492 - Non-pressure chronic ulcer of skin of other sites with fat layer exposed (2) Abdominal panniculus, symptomatic Status: Chronic Current Visit: Yes Code(s): E65 - Localized adiposity (3) Erythema intertrigo Status: Chronic Current Visit: Yes Code(s): L30.4 - Erythema intertrigo Comment: abdominal wall skin crease intertrigo (4) Obesity, Class III, BMI 40-49.9 (morbid obesity) Status: Chronic Current Visit: Yes Code(s): E66.01 - Morbid (severe) obesity due to excess calories (5) Prediabetes Status: Chronic Current Visit: Yes Code(s): R73.03 - Prediabetes Type of Wound Date of Service: 11/28/19 Chief Complaint: Nonhealing ulcer right lateral abdominal wall and left sided abdominal pannniculus with panniculitis. History of Wound: Surgery 09/21/18 - Surgical preparation right lateral abdominal wall massive panniculus with excisional debridement skin and subcutaneous tissue for necrotizing soft tissue infection and panniculectomy (858 cm2). Wound care -Will start Metahoney daily. Today denies any fever, chills or nausea. She states her appetite is good and she is supplementing with protein shakes. Operative culture - Staphylococcus simulans, Corynebacteriurm striatum, Corynebacterium amycolatum, and Anaerobic cocci. She was treated initially with Vancomycin and then was placed on Levaquin for the ECF. Also Cleocin was added for the Anaerobe. She has finished them. Prealbumin from 09/22/18 was 12.0. Encouraged nutritional supplementation with protein to help the healing process. Today she denies fever. Her appetite is ok. With the right side of her abdomen improving, she has noticed the left abdominal wall developing increasing firmness and swelling and dependent edema. She had been scheduled for surgery for the left abdominal wall for 09/13/19 but it was cancelled due to her TSH level of 102.5. Progress of Wound: Stable. Increased thick dry skin around the opening of the ulcer - Physical Exam Vital Signs Temp Pulse Resp BP 97.6 F L 91 18 158/58 H 11/28/19 09:06 11/28/19 09:06 11/28/19 09:06 11/28/19 09:06 General: Alert, Oriented x3, Cooperative HEENT: Atraumatic Oral: Moist Mucosa Lungs: Normal air movement Cardiovascular: Regular rate Abdomen: Obese Extremities: Capillary Refill Less than 3 Seconds Skin: Ulcer/ Wound - right lower abdomen/panus area, there is increased dry, thickend skin around the opening of the ulcer Wound Measurements and Assessment WC - Nurse 1 - General Ulcer Measurement Start: 11/07/19 09:46 Freq: Status: Active Protocol: Activity Type Activity Date Activity User E-Sign Co-Sign Detail Recorded Client Recorded Date Recorded By Document 11/28/19 09:06 [facility] [id number] 11/28/19 09:10 [facility] 11/28/19 09:06 Wound Center Nurse 1 [Ulcer Assessment] #2 right pannus -Combined with other wound No -Current Size (cm) - Length 0.8 -Current Size (cm) - Width 1.7 -Current Size (cm) - Depth 0.3 -Total Square Cm 1.36 -Photo Taken No -Epithelialization Small 1-33% -Tunneling No -Undermining/Tunneling No -Circular Undermining No -Exudate Amt Small -Exudate Type Serous -Wound Margin Distinct, Outline Attached -Granulation Amt Large (67-100%) -Granulation Quality Pale,Red -Slough/Fibrin Yes -Necrosis Amt Small (1-33%) -Necrotic Tissue Type Adherent Slough -Texture (Lyly-wound Skin Appearance) Assessed, Scarring -Moisture (Lyly-wound Skin Appearance Assessed,Dry/ ) Scaly -Color (Lyly-wound Skin Appearance) Assessed -Temperature (Lyly-wound Skin No Abnormality Appearance) (Pt Warm) -Tenderness on Palpation (Lyly-wound No Skin Appearance) -Ulcer Cleansing Rinsed/ Irrigated with Saline -Foul Odor after Cleansing No -Anesthetic Used 5% Lidocaine Gel - Nurse 2 - General Ulcer CM Notes Start: 11/07/19 09:46 Freq: Status: Active Protocol: Activity Type Activity Date Activity User E-Sign Co-Sign Detail Recorded Client Recorded Date Recorded By Document 11/28/19 09:30 [id number] 11/28/19 09:31 11/28/19 09:30 Wound Center Nurse 2 [Procedure/Treatment] -Time 09:30 -Correct Patient Yes -Correct Side, Site, Position Yes -Correct Procedure Yes -Procedure Performed Yes -Type of Procedure Debridement -Clinical Debridement Subcutaneous -Post Debridement Size (cm) - Length 1.4 -Post Debridement Size (cm) - Width 3.4 -Post Debridement Size (cm) - Depth 0.3 -Total Square Cm 4.76 -Wound/Ulcer Outcome Not Healed -Ulcer Cleansing Rinsed/ Irrigated with Saline -Foul Odor after Cleansing No -Bioengineered Tissue No -Bleeding Controlled with Pressure -Offloading No -Treatment Response Procedure Tolerated Well [See Physician Procedure note for Specifics] Pain Scale: 0-10 Numeric [Pain] -Is Patient Pain Free? Yes Musculoskeletal: No Tenderness to Palpation of Joints or Extremities Neurological: Neuro grossly intact Psych/Mental Status: Normal Affect, Appropriate Debridement Note Post-Debridement Measurements/Treatment WC - Nurse 2 - General Ulcer CM Notes Start: 11/07/19 09:46 Freq: Status: Active Protocol: Activity Type Activity Date Activity User E-Sign Co-Sign Detail Recorded Client Recorded Date Recorded By Document 11/07/19 10:19 [id number] 11/07/19 10:22 Document 11/28/19 09:30 [id number] 11/28/19 09:31 11/07/19 11/28/19 10:19 09:30 Wound Center Nurse 2 #2 right pannus -Time 10:20 09:30 -Correct Patient Yes Yes -Correct Side, Site, Position Yes Yes -Correct Procedure Yes Yes -Procedure Performed Yes Yes -Type of Procedure Debridement Debridement -Clinical Debridement Subcutaneous Subcutaneous -Post Debridement Size (cm) - Length 1.0 1.4 -Post Debridement Size (cm) - Width 2.2 3.4 -Post Debridement Size (cm) - Depth 0.3 0.3 -Total Square Cm 2.20 4.76 -Wound/Ulcer Outcome Not Healed Not Healed -Ulcer Cleansing Rinsed/ Rinsed/ Irrigated with Irrigated with Saline Saline -Foul Odor after Cleansing No No -Bioengineered Tissue No No -Bleeding Controlled with Pressure Pressure -Offloading No No -Treatment Response Procedure Procedure Tolerated Well Tolerated Well Pain Scale: 0-10 Numeric Is Patient Pain Free? Yes Yes Wound debrided: Lower abdominal ulcer Laterality: Right Type of Debridement: Excisional debridement Anesthesia Used: 5% Lidocaine Gel Depth: Down to and including healthy tissue, in the subcutaneous layer Percentage of wound debrided: 100 Instrument Used: 5mm curette Tissue Removed: Subcutaneous tissue and slough Severity: Fat Layer Exposed Amount of bleeding with debridement: Moderate Bleeding Controlled with: Pressure, Compression and gauze Patient tolerated procedure well Assessment/Plan Active Problems (Last Reviewed 11/19/18 @ 10:25 by Angela Song) Erythema intertrigo (Chronic) abdominal wall skin crease intertrigo Abdominal panniculus, symptomatic (Chronic) Skin ulcer of abdominal wall with fat layer exposed (Chronic) Obesity, Class III, BMI 40-49.9 (morbid obesity) (Chronic) Prediabetes (Chronic) Assessment: 1. 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 2. Massive abdominal panniculus with panniculitis, worse on left side. 3. Borderline diabetes. 4. Abdominal wall skin crease intertrigo. 5. Morbid obesity. 6. Incisional hernia. 7. s/p surgical preparation right lateral abdominal wall massive panniculus with excisional debridement skin and subcutaneous tissue for necrotizing soft tissue infection and panniculectomy (858 cm2). Plan: Start Medihoney to the right abdominal wall ulcer daily. We will see if this will help keep some of the thickened, dry tissue from forming around the ulcer. She is having more edema and symptomatic pain on the left side of her panniculus with panniculitis. Eventually she will need further excision on the right side, but she is more symptomatic on the left so will proceed with excisional debridement and panniculectomy. Because of the difficulty we had with the last surgery with blood pressure, I will admit her the day before for IV hydration and to begin IV antibitiotics. Surgery will be under general anesthesia with a surgical observation overnight stay in the hospital. Because of issues with Home Health coverage, she may need to go to an ECF initially for the VAC care along with IV antibiotics. She voices understanding and wishes to proceed only if she may go home after surgery. Her mother states she can learn to do the VAC dressing changes. Patient was informed of the risks and complications of the procedure including alternatives to surgery. These were discussed with her personally. She voices understanding and wishes to proceed. She had been scheduled for surgery for the left abdominal wall for 09/13/19 but it was cancelled due to her TSH level of 102.50. Her TSH recheck was last week 10/21/19 was down to 66. Her PCP is managing her thyroid medication. The right lateral abdominal wall ulcer is stable. With the weight of her panniculus, I anticipate the right lateral abdominal wall ulcer will not heal without further excisional surgery. After the left sided surgery, will then address the right side. She states she is having a lot of edema again more on the right side instead of the left side. Instructed her to try not to lay on the one side all the time, try to rotate back and forth. Follow up in 1 week.
== END 2019-12-03 23:59 ==
LOC: WC 09:30
PROVIDERS: Family Provider Student in an Organized Health Care Education/Training Program; PCP Student in an Organized Health Care Education/Training Program; Visit Provider Nurse Practitioner Family
DX: L98.492 Non-pressure chronic ulcer of skin of other sites with fat layer exposed (principal); L30.4 Erythema intertrigo; R73.03 Prediabetes; E66.01 Morbid (severe) obesity due to excess calories; Z71.3 Dietary counseling and surveillance; E65 Localized adiposity; M79.3 Panniculitis, unspecified; K43.2 Incisional hernia without obstruction or gangrene
CPT/HCPCS: 11042

== ENCOUNTER 2019-12-19 09:30 | Outpatient (RCR) | payer MEDICAID, SELFPAY ==
[2019-12-04 00:26] VITALS: BP 158/58; PULSE 91; RESP 18; TEMP 36.4
[2019-12-05 09:37] VITALS: BP 163/91; PULSE 95; RESP 20; TEMP 36.4; BMI 78.4
--- NOTE | 2019-12-05 12:46 | PN.PCM_ITS ---
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 Status: Chronic Current Visit: Yes Code(s): L98.492 - Non-pressure chronic ulcer of skin of other sites with fat layer exposed (2) Abdominal panniculus, symptomatic Status: Chronic Current Visit: Yes Code(s): E65 - Localized adiposity (3) Hypothyroid Status: Chronic Current Visit: Yes Qualifiers: Hypothyroidism type: unspecified Qualified Code(s): E03.9 - Hypothyroidism, unspecified Code(s): E03.9 - Hypothyroidism, unspecified (4) Obesity, Class III, BMI 40-49.9 (morbid obesity) Status: Chronic Current Visit: Yes Code(s): E66.01 - Morbid (severe) obesity due to excess calories (5) Prediabetes Status: Chronic Current Visit: Yes Code(s): R73.03 - Prediabetes (6) Hypertension Status: Chronic Current Visit: Yes Qualifiers: Hypertension type: essential hypertension Qualified Code(s): I10 - Essential (primary) hypertension Code(s): I10 - Essential (primary) hypertension Type of Wound Date of Service: 12/05/19 Chief Complaint: Nonhealing ulcer right lateral abdominal wall and left sided abdominal pannniculus with panniculitis. History of Wound: Surgery 09/21/18 - Surgical preparation right lateral abdominal wall massive panniculus with excisional debridement skin and subcutaneous tissue for necrotizing soft tissue infection and panniculectomy (858 cm2). Wound care -Will stop Metahoney and restart moistened oliver daily. Today denies any fever, chills or nausea. She states her appetite is good and she is supplementing with protein shakes. Operative culture - Staphylococcus simulans, Corynebacteriurm striatum, Corynebacterium amycolatum, and Anaerobic cocci. She was treated initially with Vancomycin and then was placed on Levaquin for the ECF. Also Cleocin was added for the Anaerobe. She has finished them. Prealbumin from 09/22/18 was 12.0. Encouraged nutritional supplementation with protein to help the healing process. Today she denies fever. Her appetite is ok. With the right side of her abdomen improving, she has noticed the left abdominal wall developing increasing firmness and swelling and dependent edema. She had been scheduled for surgery for the left abdominal wall for 09/13/19 but it was cancelled due to her TSH level of 102.5. Progress of Wound: Stable. Increased thick dry skin around the opening of the ulcer - Physical Exam Vital Signs Temp Pulse Resp BP 97.5 F L 95 20 H 163/91 H 12/05/19 09:37 12/05/19 09:37 12/05/19 09:37 12/05/19 09:37 General: Alert, Oriented x3, Cooperative HEENT: Atraumatic Oral: Moist Mucosa Lungs: Normal air movement Cardiovascular: Regular rate Abdomen: Obese Extremities: Capillary Refill Less than 3 Seconds, Edema Skin: Ulcer/ Wound - right lower abdomen/pannus Wound Measurements and Assessment WC - Nurse 1 - General Ulcer Measurement Start: 12/05/19 09:36 Freq: Status: Active Protocol: Activity Type Activity Date Activity User E-Sign Co-Sign Detail Recorded Client Recorded Date Recorded By Document 12/05/19 09:37 [facility] [id number] 12/05/19 09:38 [facility] 12/05/19 09:37 Wound Center Nurse 1 [Ulcer Assessment] #2 right pannus -Current Size (cm) - Length 1 -Current Size (cm) - Width 3 -Current Size (cm) - Depth 0.4 -Total Square Cm 3 -Photo Taken No -Exudate Amt Small -Exudate Type Serosanguineous -Wound Margin Thickened -Granulation Amt Large (67-100%) -Granulation Quality [place],Red -Necrosis Amt Small (1-33%) -Necrotic Tissue Type Adherent Slough -Structure Exposed N/A -Texture (Lyly-wound Skin Appearance) Scarring -Moisture (Lyly-wound Skin Appearance Dry/Scaly ) -Color (Lyly-wound Skin Appearance) Rubor -Temperature (Lyly-wound Skin No Abnormality Appearance) (Pt Warm) -Ulcer Cleansing Wound Cleanser -Foul Odor after Cleansing No -Anesthetic Used 4% Lidocaine Solution WC - Nurse 2 - General Ulcer CM Notes Start: 12/05/19 09:36 Freq: Status: Active Protocol: Activity Type Activity Date Activity User E-Sign Co-Sign Detail Recorded Client Recorded Date Recorded By Document 12/05/19 10:09 [facility] [id number] 12/05/19 10:12 [facility] 12/05/19 10:09 Wound Center Nurse 2 [Procedure/Treatment] -Time 10:10 -Correct Patient Yes -Correct Side, Site, Position Yes -Correct Procedure Yes -Procedure Performed Yes -Type of Procedure Debridement -Clinical Debridement Subcutaneous -Post Debridement Size (cm) - Length 1.4 -Post Debridement Size (cm) - Width 3.0 -Post Debridement Size (cm) - Depth 0.3 -Total Square Cm 4.20 -Wound/Ulcer Outcome Not Healed -Ulcer Cleansing Rinsed/ Irrigated with Saline -Foul Odor after Cleansing No -Bioengineered Tissue No -Bleeding Controlled with Pressure -Offloading No -Treatment Response Procedure Tolerated Well [See Physician Procedure note for Specifics] Pain Scale: 0-10 Numeric [Pain] -Is Patient Pain Free? Yes Musculoskeletal: Tenderness Neurological: Neuro grossly intact Psych/Mental Status: Normal Affect, Appropriate Debridement Note Post-Debridement Measurements/Treatment WC - Nurse 2 - General Ulcer CM Notes Start: 12/05/19 09:36 Freq: Status: Active Protocol: Activity Type Activity Date Activity User E-Sign Co-Sign Detail Recorded Client Recorded Date Recorded By Document 12/05/19 10:09 LOIS [id number] 12/05/19 10:12 LOIS 12/05/19 10:09 Wound Center Nurse 2 #2 right pannus -Time 10:10 -Correct Patient Yes -Correct Side, Site, Position Yes -Correct Procedure Yes -Procedure Performed Yes -Type of Procedure Debridement -Clinical Debridement Subcutaneous -Post Debridement Size (cm) - Length 1.4 -Post Debridement Size (cm) - Width 3.0 -Post Debridement Size (cm) - Depth 0.3 -Total Square Cm 4.20 -Wound/Ulcer Outcome Not Healed -Ulcer Cleansing Rinsed/ Irrigated with Saline -Foul Odor after Cleansing No -Bioengineered Tissue No -Bleeding Controlled with Pressure -Offloading No -Treatment Response Procedure Tolerated Well Pain Scale: 0-10 Numeric Is Patient Pain Free? Yes Wound debrided: lower abdominal ulcer Laterality: Right Type of Debridement: Excisional debridement Anesthesia Used: 5% Lidocaine Gel Depth: Down to and including healthy tissue, in the subcutaneous layer Percentage of wound debrided: 100 Instrument Used: 3mm curette Tissue Removed: Subcutaneous tissue and slough Severity: Fat Layer Exposed Amount of bleeding with debridement: Mild Bleeding Controlled with: Pressure Patient tolerated procedure well Assessment/Plan Active Problems (Last Reviewed 11/19/18 @ 10:25 by Angela M Duncan) Abdominal panniculus, symptomatic (Chronic) Skin ulcer of abdominal wall with fat layer exposed (Chronic) Obesity, Class III, BMI 40-49.9 (morbid obesity) (Chronic) Prediabetes (Chronic) Hypertension (Chronic) Hypothyroid (Chronic) Assessment: 1. 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 2. Massive abdominal panniculus with panniculitis, worse on left side. 3. Borderline diabetes. 4. Abdominal wall skin crease intertrigo. 5. Morbid obesity. 6. Incisional hernia. 7. s/p surgical preparation right lateral abdominal wall massive panniculus with excisional debridement skin and subcutaneous tissue for necrotizing soft tissue infection and panniculectomy (858 cm2). Plan: Stop Medihoney and restart moistened [place] to the right abdominal wall ulcer daily. She is having more edema and symptomatic pain on the left side of her panniculus with panniculitis. Eventually she will need further excision on the right side, but she is more symptomatic on the left so will proceed with excisional debridement and panniculectomy. Because of the difficulty we had with the last surgery with blood pressure, I will admit her the day before for IV hydration and to begin IV antibitiotics. Surgery will be under general anesthesia with a surgical observation overnight stay in the hospital. Because of issues with Home Health coverage, she may need to go to an F initially for the VAC care along with IV antibiotics. She voices understanding and wishes to proceed only if she may go home after surgery. Her mother states she can learn to do the VAC dressing changes. Patient was informed of the risks and complications of the procedure including alternatives to surgery. These were discussed with her personally. She voices understanding and wishes to proceed. She had been scheduled for surgery for the left abdominal wall for 09/13/19 but it was cancelled due to her TSH level of 102.50. Her TSH recheck was last week 10/21/19 was down to 66. Her PCP is managing her thyroid medication. The right lateral abdominal wall ulcer is stable. With the weight of her panniculus, I anticipate the right lateral abdominal wall ulcer will not heal without further excisional surgery. After the left sided surgery, will then address the right side. She states she is having a lot of edema again more on the right side instead of the left side. Instructed her to try not to lay on the one side all the time, try to rotate back and forth. Follow up in 2 weeks. Code Visit [id number]: [id number] Josephine subq tissue 20 sq cm/<
[2019-12-19 09:55] VITALS: BP 155/93; PULSE 98; RESP 18; TEMP 36.4; BMI 78.4
--- NOTE | 2019-12-19 14:30 | PCM.WC.PN ---
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 Status: Chronic Code(s): L98.492 - Non-pressure chronic ulcer of skin of other sites with fat layer exposed (2) Abdominal panniculus, symptomatic Status: Chronic Code(s): E65 - Localized adiposity (3) Hypothyroid Status: Chronic Qualifiers: Hypothyroidism type: unspecified Qualified Code(s): E03.9 - Hypothyroidism, unspecified Code(s): E03.9 - Hypothyroidism, unspecified (4) Obesity, Class III, BMI 40-49.9 (morbid obesity) Status: Chronic Code(s): E66.01 - Morbid (severe) obesity due to excess calories (5) Prediabetes Status: Chronic Code(s): R73.03 - Prediabetes (6) Hypertension Status: Chronic Qualifiers: Hypertension type: essential hypertension Qualified Code(s): I10 - Essential (primary) hypertension Code(s): I10 - Essential (primary) hypertension Type of Wound Date of Service: 12/19/19 Chief Complaint: Nonhealing ulcer right lateral abdominal wall and left sided abdominal pannniculus with panniculitis. History of Wound: Surgery 09/21/18 - Surgical preparation right lateral abdominal wall massive panniculus with excisional debridement skin and subcutaneous tissue for necrotizing soft tissue infection and panniculectomy (858 cm2). Wound care - moistened caitlyn covered by Adaptic daily. Today denies any fever, chills or nausea. She states her appetite is good and she is supplementing with protein shakes. Operative culture - Staphylococcus simulans, Corynebacteriurm striatum, Corynebacterium amycolatum, and Anaerobic cocci. She was treated initially with Vancomycin and then was placed on Levaquin for the ECF. Also Cleocin was added for the Anaerobe. She has finished them. Prealbumin from 09/22/18 was 12.0. Encouraged nutritional supplementation with protein to help the healing process. Today she denies fever. Her appetite is ok. With the right side of her abdomen improving, she has noticed the left abdominal wall developing increasing firmness and swelling and dependent edema. She had been scheduled for surgery for the left abdominal wall for 09/13/19 but it was cancelled due to her TSH level of 102.5. Progress of Wound: Stable. Increased thick dry skin around the opening of the ulcer - Physical Exam Vital Signs Temp Pulse Resp BP 97.5 F L 98 18 155/93 H 12/19/19 09:55 12/19/19 09:55 12/19/19 09:55 12/19/19 09:55 General: Alert, Oriented x3, Cooperative HEENT: Atraumatic Oral: Moist Mucosa Lungs: Normal air movement Cardiovascular: Regular rate Abdomen: Obese Extremities: Capillary Refill Less than 3 Seconds Skin: Ulcer/ Wound - Right lower abdomin/pannus ulcer Wound Measurements and Assessment WC - Nurse 1 - General Ulcer Measurement Start: 12/05/19 09:36 Freq: Status: Active Protocol: Activity Type Activity Date Activity User E-Sign Co-Sign Detail Recorded Client Recorded Date Recorded By Document 12/19/19 09:55 MW [id number] 12/19/19 09:58 MW 12/19/19 09:55 Wound Center Nurse 1 [Ulcer Assessment] #2 right pannus -Combined with other wound No -Current Size (cm) - Length 1.0 -Current Size (cm) - Width 2.4 -Current Size (cm) - Depth 0.2 -Total Square Cm 2.40 -Photo Taken No -Epithelialization None Present -Tunneling No -Undermining/Tunneling No -Circular Undermining No -Exudate Amt Small -Exudate Type Serosanguineous -Wound Margin Thickened -Granulation Amt Large (67-100%) -Granulation Quality [facility] -Slough/Fibrin Yes -Necrosis Amt Small (1-33%) -Necrotic Tissue Type Adherent Slough -Structure Exposed N/A -Texture (Lyly-wound Skin Appearance) Assessed, Scarring -Moisture (Lyly-wound Skin Appearance Assessed,Dry/ ) Scaly -Color (Lyly-wound Skin Appearance) No Abnormality, Assessed -Temperature (Lyly-wound Skin No Abnormality Appearance) (Pt Warm) -Tenderness on Palpation (Lyly-wound No Skin Appearance) -Ulcer Cleansing Rinsed/ Irrigated with Saline -Foul Odor after Cleansing No -Anesthetic Used 5% Lidocaine Gel [Edema Assessment] -Lower Limb Edema Present No WC - Nurse 2 - General Ulcer CM Notes Start: 12/05/19 09:36 Freq: Status: Active Protocol: Activity Type Activity Date Activity User E-Sign Co-Sign Detail Recorded Client Recorded Date Recorded By Document 12/19/19 10:10 JF [email or web address] 12/19/19 10:15 12/19/19 10:10 Wound Center Nurse 2 [Procedure/Treatment] #2 right pannus -Time 10:11 -Correct Patient Yes -Correct Side, Site, Position Yes -Correct Procedure Yes -Procedure Performed Yes -Type of Procedure Debridement -Clinical Debridement Subcutaneous -Post Debridement Size (cm) - Length 1.3 -Post Debridement Size (cm) - Width 3.2 -Post Debridement Size (cm) - Depth 0.5 -Total Square Cm 4.16 -Wound/Ulcer Outcome Not Healed -Ulcer Cleansing Rinsed/ Irrigated with Saline -Foul Odor after Cleansing No -Bioengineered Tissue No -Bleeding Controlled with Pressure -Offloading No -Treatment Response Procedure Tolerated Well [See Physician Procedure note for Specifics] Pain Scale: 0-10 Numeric [Pain] -Is Patient Pain Free? Yes Musculoskeletal: No Tenderness to Palpation of Joints or Extremities Neurological: Neuro grossly intact Psych/Mental Status: Normal Affect, Appropriate Debridement Note Post-Debridement Measurements/Treatment WC - Nurse 2 - General Ulcer CM Notes Start: 12/05/19 09:36 Freq: Status: Active Protocol: Activity Type Activity Date Activity User E-Sign Co-Sign Detail Recorded Client Recorded Date Recorded By Document 12/05/19 10:09 [id number] 12/05/19 10:12 Document 12/19/19 10:10 [id number] 12/19/19 10:15 12/05/19 12/19/19 10:09 10:10 Wound Center Nurse 2 #2 right pannus -Time 10:10 10:11 -Correct Patient Yes Yes -Correct Side, Site, Position Yes Yes -Correct Procedure Yes Yes -Procedure Performed Yes Yes -Type of Procedure Debridement Debridement -Clinical Debridement Subcutaneous Subcutaneous -Post Debridement Size (cm) - Length 1.4 1.3 -Post Debridement Size (cm) - Width 3.0 3.2 -Post Debridement Size (cm) - Depth 0.3 0.5 -Total Square Cm 4.20 4.16 -Wound/Ulcer Outcome Not Healed Not Healed -Ulcer Cleansing Rinsed/ Rinsed/ Irrigated with Irrigated with Saline Saline -Foul Odor after Cleansing No No -Bioengineered Tissue No No -Bleeding Controlled with Pressure Pressure -Offloading No No -Treatment Response Procedure Procedure Tolerated Well Tolerated Well Pain Scale: 0-10 Numeric Is Patient Pain Free? Yes Yes Wound debrided: Lower abdomen/pannus ulcer Laterality: Right Type of Debridement: Excisional debridement Anesthesia Used: 5% Lidocaine Gel Depth: Down to and including healthy tissue, in the subcutaneous layer Percentage of wound debrided: 100 Instrument Used: 5mm curette Tissue Removed: Subcutaneous tissue and slough Severity: Limited To Skin Breakdown Amount of bleeding with debridement: Mild Bleeding Controlled with: Pressure Patient tolerated procedure well This area is mostly scar tissue and is very very thick, dense tissue. It is difficult to debride. Assessment/Plan Assessment: 1. 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 2. Massive abdominal panniculus with panniculitis, worse on left side. 3. Borderline diabetes. 4. Abdominal wall skin crease intertrigo. 5. Morbid obesity. 6. Incisional hernia. 7. s/p surgical preparation right lateral abdominal wall massive panniculus with excisional debridement skin and subcutaneous tissue for necrotizing soft tissue infection and panniculectomy (858 cm2). Plan: Wound care is moistened Caitlyn with Adaptic to the right abdominal wall ulcer daily. She is having more edema and symptomatic pain on the left side of her panniculus with panniculitis. Eventually she will need further excision on the right side, but she is more symptomatic on the left so will proceed with excisional debridement and panniculectomy. Because of the difficulty we had with the last surgery with blood pressure, I will admit her the day before for IV hydration and to begin IV antibitiotics. Surgery will be under general anesthesia with a surgical observation overnight stay in the hospital. Because of issues with Home Health coverage, she may need to go to an [facility] initially for the VAC care along with IV antibiotics. She voices understanding and wishes to proceed only if she may go home after surgery. Her mother states she can learn to do the VAC dressing changes. Patient was informed of the risks and complications of the procedure including alternatives to surgery. These were discussed with her personally. She voices understanding and wishes to proceed. She had been scheduled for surgery for the left abdominal wall for 09/13/19 but it was cancelled due to her TSH level of 102.50. Her TSH recheck was last week 10/21/19 was down to 66. Her PCP is managing her thyroid medication. The right lateral abdominal wall ulcer is stable. With the weight of her panniculus, I anticipate the right lateral abdominal wall ulcer will not heal without further excisional surgery. After the left sided surgery, will then address the right side. She states she is having a lot of edema again more on the right side instead of the left side. Instructed her to try not to lay on the one side all the time, try to rotate back and forth. Follow up in 3 weeks. [id number]: [id number] Josephine subq tissue 20 sq cm/<
== END 2020-01-03 23:59 ==
LOC: WC 09:30
PROVIDERS: Family Provider Student in an Organized Health Care Education/Training Program; PCP Student in an Organized Health Care Education/Training Program; Visit Provider Nurse Practitioner Family
DX: L98.492 Non-pressure chronic ulcer of skin of other sites with fat layer exposed (principal); L30.4 Erythema intertrigo; M79.3 Panniculitis, unspecified; E65 Localized adiposity; K43.2 Incisional hernia without obstruction or gangrene; R73.03 Prediabetes; I10 Essential (primary) hypertension; E03.9 Hypothyroidism, unspecified; E66.01 Morbid (severe) obesity due to excess calories; Z79.84 Long term (current) use of oral hypoglycemic drugs; Z79.899 Other long term (current) drug therapy
CPT/HCPCS: 11042

== ENCOUNTER 2020-01-30 09:30 | Outpatient (RCR) | payer MEDICAID, SELFPAY ==
[2020-01-04 00:23] VITALS: BP 155/93; PULSE 98; RESP 18; TEMP 36.4
[2020-01-09 09:40] VITALS: BP 148/93; PULSE 102; RESP 18; TEMP 36.1; BMI 78.4
--- NOTE | 2020-01-09 10:59 | PN.PCM_ITS ---
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 Status: Chronic Current Visit: Yes Code(s): L98.492 - Non-pressure chronic ulcer of skin of other sites with fat layer exposed (2) Abdominal panniculus, symptomatic Status: Chronic Current Visit: Yes Code(s): E65 - Localized adiposity (3) Obesity, Class III, BMI 40-49.9 (morbid obesity) Status: Chronic Current Visit: Yes Code(s): E66.01 - Morbid (severe) obesity due to excess calories (4) Prediabetes Status: Chronic Current Visit: Yes Code(s): R73.03 - Prediabetes Type of Wound Date of Service: 01/09/20 Chief Complaint: Nonhealing ulcer right lateral abdominal wall and left sided abdominal pannniculus with panniculitis. History of Wound: Surgery 09/21/18 - Surgical preparation right lateral abdominal wall massive panniculus with excisional debridement skin and subcutaneous tissue for necrotizing soft tissue infection and panniculectomy (858 cm2). Wound care - moistened oliver covered by Adaptic daily. Today denies any fever, chills or nausea. She states her appetite is good and she is supplementing with protein shakes. Operative culture - Staphylococcus simulans, Corynebacteriurm striatum, Corynebacterium amycolatum, and Anaerobic cocci. She was treated initially with Vancomycin and then was placed on Levaquin for the ECF. Also Cleocin was added for the Anaerobe. She has finished them. Prealbumin from 09/22/18 was 12.0. Encouraged nutritional supplementation with protein to help the healing process. Today she denies fever. Her appetite is ok. With the right side of her abdomen improving, she has noticed the left abdominal wall developing increasing firmness and swelling and dependent edema. She had been scheduled for surgery for the left abdominal wall for 09/13/19 but it was cancelled due to her TSH level of 102.5. Progress of Wound: Improved. - Physical Exam Vital Signs Temp Pulse Resp BP 96.9 F L 102 H 18 148/93 H 01/09/20 09:40 01/09/20 09:40 01/09/20 09:40 01/09/20 09:40 General: Alert, Oriented x3, Cooperative HEENT: Atraumatic Oral: Moist Mucosa Lungs: Normal air movement Cardiovascular: Regular rate Abdomen: Obese Extremities: Capillary Refill Less than 3 Seconds Skin: Ulcer/ Wound - Right lower abdominal ulcer Wound Measurements and Assessment WC - Nurse 1 - General Ulcer Measurement Start: 01/09/20 09:40 Freq: Status: Active Protocol: Activity Type Activity Date Activity User E-Sign Co-Sign Detail Recorded Client Recorded Date Recorded By Document 01/09/20 09:40 MW [id number] 01/09/20 09:42 MW 01/09/20 09:40 Wound Center Nurse 1 [Ulcer Assessment] #2 right pannus -Combined with other wound No -Current Size (cm) - Length 0.6 -Current Size (cm) - Width 1.6 -Current Size (cm) - Depth 0.2 -Total Square Cm 0.96 -Date of Last Picture (Recall this 01/09/20 field) -Photo Taken Yes -Epithelialization None Present -Tunneling No -Undermining/Tunneling No -Circular Undermining No -Exudate Amt Medium -Exudate Type Serosanguineous -Wound Margin Thickened -Granulation Amt Small (1-33%) -Granulation Quality Pale -Slough/Fibrin Yes -Necrosis Amt Large (67-100%) -Necrotic Tissue Type Adherent Slough -Structure Exposed N/A -Texture (Lyly-wound Skin Appearance) Assessed, Scarring -Moisture (Lyly-wound Skin Appearance Assessed,Dry/ ) Scaly -Color (Lyly-wound Skin Appearance) No Abnormality, Assessed -Temperature (Lyly-wound Skin No Abnormality Appearance) (Pt Warm) -Tenderness on Palpation (Lyly-wound Yes Skin Appearance) -Ulcer Cleansing Rinsed/ Irrigated with Saline -Foul Odor after Cleansing No -Anesthetic Used 5% Lidocaine Gel [Edema Assessment] -Lower Limb Edema Present No WC - Nurse 2 - General Ulcer CM Notes Start: 01/09/20 09:40 Freq: Status: Active Protocol: Activity Type Activity Date Activity User E-Sign Co-Sign Detail Recorded Client Recorded Date Recorded By Document 01/09/20 10:00 JF [id number] 01/09/20 10:03 JF 01/09/20 10:00 Wound Center Nurse 2 [Procedure/Treatment] #2 right pannus -Time 10:00 -Correct Patient Yes -Correct Side, Site, Position Yes -Correct Procedure Yes -Procedure Performed Yes -Type of Procedure Debridement -Clinical Debridement Subcutaneous -Post Debridement Size (cm) - Length 0.9 -Post Debridement Size (cm) - Width 1.2 -Post Debridement Size (cm) - Depth 0.3 -Total Square Cm 1.08 -Wound/Ulcer Outcome Not Healed -Ulcer Cleansing Rinsed/ Irrigated with Saline -Foul Odor after Cleansing No -Bioengineered Tissue No -Bleeding Controlled with Pressure -Offloading No -Treatment Response Procedure Tolerated Well [See Physician Procedure note for Specifics] Pain Scale: 0-10 Numeric [Pain] -Is Patient Pain Free? Yes Musculoskeletal: Tenderness Neurological: Neuro grossly intact Psych/Mental Status: Normal Affect, Appropriate Debridement Note Post-Debridement Measurements/Treatment WC - Nurse 2 - General Ulcer CM Notes Start: 01/09/20 09:40 Freq: Status: Active Protocol: Activity Type Activity Date Activity User E-Sign Co-Sign Detail Recorded Client Recorded Date Recorded By Document 01/09/20 10:00 LOIS [id number] 01/09/20 10:03 LOIS 01/09/20 10:00 Wound Center Nurse 2 #2 right pannus -Time 10:00 -Correct Patient Yes -Correct Side, Site, Position Yes -Correct Procedure Yes -Procedure Performed Yes -Type of Procedure Debridement -Clinical Debridement Subcutaneous -Post Debridement Size (cm) - Length 0.9 -Post Debridement Size (cm) - Width 1.2 -Post Debridement Size (cm) - Depth 0.3 -Total Square Cm 1.08 -Wound/Ulcer Outcome Not Healed -Ulcer Cleansing Rinsed/ Irrigated with Saline -Foul Odor after Cleansing No -Bioengineered Tissue No -Bleeding Controlled with Pressure -Offloading No -Treatment Response Procedure Tolerated Well Pain Scale: 0-10 Numeric Is Patient Pain Free? Yes Wound debrided: Lower abdomen Laterality: Right Type of Debridement: Excisional debridement Anesthesia Used: 5% Lidocaine Gel Depth: Down to and including healthy tissue, in the subcutaneous layer Percentage of wound debrided: 100 Instrument Used: 5mm curette Tissue Removed: Subcutaneous tissue and slough Severity: Fat Layer Exposed Amount of bleeding with debridement: Mild Bleeding Controlled with: Pressure Patient tolerated procedure well Assessment/Plan Active Problems (Last Reviewed 11/19/18 @ 10:25 by Angela Song) Abdominal panniculus, symptomatic (Chronic) Skin ulcer of abdominal wall with fat layer exposed (Chronic) Obesity, Class III, BMI 40-49.9 (morbid obesity) (Chronic) Prediabetes (Chronic) Assessment: 1. 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 2. Massive abdominal panniculus with panniculitis, worse on left side. 3. Borderline diabetes. 4. Abdominal wall skin crease intertrigo. 5. Morbid obesity. 6. Incisional hernia. 7. s/p surgical preparation right lateral abdominal wall massive panniculus with excisional debridement skin and subcutaneous tissue for necrotizing soft tissue infection and panniculectomy (858 cm2). Plan: Wound care is moistened Oliver with Adaptic to the right abdominal wall ulcer daily. She is having more edema and symptomatic pain on the left side of her panniculus with panniculitis. Eventually she will need further excision on the right side, but she is more symptomatic on the left so will proceed with excisional debridement and panniculectomy. Because of the difficulty we had with the last surgery with blood pressure, I will admit her the day before for IV hydration and to begin IV antibitiotics. Surgery will be under general anesthesia with a surgical observation overnight stay in the hospital. Because of issues with Home Health coverage, she may need to go to an [facility] initially for the VAC care along with IV antibiotics. She voices understanding and wishes to proceed only if she may go home after surgery. Her mother states she can learn to do the VAC dressing changes. Patient was informed of the risks and complications of the procedure including alternatives to surgery. These were discussed with her personally. She voices understanding and wishes to proceed. She had been scheduled for surgery for the left abdominal wall for 09/13/19 but it was cancelled due to her TSH level of 102.50. Her TSH recheck was last week 10/21/19 was down to 66. Her PCP is managing her thyroid medication. The right lateral abdominal wall ulcer is stable. With the weight of her panniculus, I anticipate the right lateral abdominal wall ulcer will not heal without further excisional surgery. After the left sided surgery, will then address the right side. She states she is having a lot of edema again more on the right side instead of the left side. Instructed her to try not to lay on the one side all the time, try to rotate back and forth. Follow up in 3 weeks. [id number]: [id number] Josephine subq tissue 20 sq cm/<
[2020-01-30 09:33] VITALS: BP 168/93; PULSE 81; RESP 18; TEMP 36.6; BMI 78.4
--- NOTE | 2020-01-30 11:44 | PN.PCM_ITS ---
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 Status: Chronic Code(s): L98.492 - Non-pressure chronic ulcer of skin of other sites with fat layer exposed (2) Abdominal panniculus, symptomatic Status: Chronic Code(s): E65 - Localized adiposity (3) Obesity, Class III, BMI 40-49.9 (morbid obesity) Status: Chronic Code(s): E66.01 - Morbid (severe) obesity due to excess calori es (4) Prediabetes Status: Chronic Code(s): R73.03 - Prediabetes Type of Wound Date of Service: 01/30/20 Chief Complaint: Nonhealing ulcer right lateral abdominal wall and left sided abdominal pannniculus with panniculitis. History of Wound: Surgery 09/21/18 - Surgical preparation right lateral abdominal wall massive panniculus with excisional debridement skin and subcutaneous tissue for necrotizing soft tissue infection and panniculectomy (858 cm2). Wound care - moistened oliver covered by Adaptic daily. Today denies any fever, chills or nausea. She states her appetite is good and she is supplementing with protein shakes. Operative culture - Staphylococcus simulans, Corynebacteriurm striatum, Corynebacterium amycolatum, and Anaerobic cocci. She was treated initially with Vancomycin and then was placed on Levaquin for the ECF. Also Cleocin was added for the Anaerobe. She has finished them. Prealbumin from 09/22/18 was 12.0. Encouraged nutritional supplementation with protein to help the healing process. Today she denies fever. Her appetite is ok. With the right side of her abdomen improving, she has noticed the left abdominal wall developing increasing firmness and swelling and dependent edema. She had been scheduled for surgery for the left abdominal wall for 09/13/19 but it was cancelled due to her TSH level of 102.5. She recently had another TSH level but she doesn't remember what it was but her doctor increased her medication. Progress of Wound: Improved. - Physical Exam Vital Signs Temp Pulse Resp BP 97.8 F 81 18 168/93 H 01/30/20 09:33 01/30/20 09:33 01/30/20 09:33 01/30/20 09:33 General: Alert, Oriented x3, Cooperative HEENT: Atraumatic Oral: Moist Mucosa Lungs: Normal air movement Cardiovascular: Regular rate Abdomen: Obese Extremities: Capillary Refill Less than 3 Seconds Skin: Ulcer/ Wound - Right lower abdominal ulcer Wound Measurements and Assessment WC - Nurse 1 - General Ulcer Measurement Start: 01/09/20 09:40 Freq: Status: Active Protocol: Activity Type Activity Date Activity User E-Sign Co-Sign Detail Recorded Client Recorded Date Recorded By Document 01/30/20 09:33 CARROLL [id number] 01/30/20 09:35 CARROLL 01/30/20 09:33 Wound Center Nurse 1 [Ulcer Assessment] #2 right pannus -Combined with other wound No -Current Size (cm) - Length 0.3 -Current Size (cm) - Width 1 -Current Size (cm) - Depth 0.1 -Total Square Cm 0.3 -Tunneling No -Undermining/Tunneling No -Circular Undermining No -Exudate Amt Small -Exudate Type Serosanguineous -Wound Margin Thickened -Granulation Amt Medium (34-66%) -Granulation Quality [place] -Slough/Fibrin Yes -Necrosis Amt Medium (34-66%) -Necrotic Tissue Type Adherent Slough -Structure Exposed N/A -Texture (Lyly-wound Skin Appearance) Scarring -Moisture (Lyly-wound Skin Appearance Dry/Scaly ) -Color (Lyly-wound Skin Appearance) Assessed -Temperature (Lyly-wound Skin No Abnormality Appearance) (Pt Warm) -Tenderness on Palpation (Lyly-wound No Skin Appearance) -Ulcer Cleansing Wound Cleanser -Foul Odor after Cleansing No -Anesthetic Used 4% Lidocaine Solution WC - Nurse 2 - General Ulcer CM Notes Start: 01/09/20 09:40 Freq: Status: Active Protocol: Activity Type Activity Date Activity User E-Sign Co-Sign Detail Recorded Client Recorded Date Recorded By Document 01/30/20 10:11 LOIS [id number] 01/30/20 10:16 LOIS 01/30/20 10:11 Wound Center Nurse 2 [Procedure/Treatment] -Time 10:12 -Correct Patient Yes -Correct Side, Site, Position Yes -Correct Procedure Yes -Procedure Performed Yes -Type of Procedure Debridement -Clinical Debridement Subcutaneous -Post Debridement Size (cm) - Length 0.7 -Post Debridement Size (cm) - Width 2.0 -Post Debridement Size (cm) - Depth 0.2 -Total Square Cm 1.40 -Wound/Ulcer Outcome Not Healed -Ulcer Cleansing Rinsed/ Irrigated with Saline -Foul Odor after Cleansing No -Bioengineered Tissue No -Bleeding Controlled with Pressure -Offloading No -Treatment Response Procedure Tolerated Well [See Physician Procedure note for Specifics] Pain Scale: 0-10 Numeric [Pain] -Is Patient Pain Free? Yes Musculoskeletal: No Tenderness to Palpation of Joints or Extremities Neurological: Neuro grossly intact Psych/Mental Status: Normal Affect, Appropriate Debridement Note Post-Debridement Measurements/Treatment WC - Nurse 2 - General Ulcer CM Notes Start: 01/09/20 09:40 Freq: Status: Active Protocol: Activity Type Activity Date Activity User E-Sign Co-Sign Detail Recorded Client Recorded Date Recorded By Document 01/09/20 10:00 [id number] 01/09/20 10:03 Document 01/30/20 10:11 [id number] 01/30/20 10:16 01/09/20 01/30/20 10:00 10:11 Wound Center Nurse 2 #2 right pannus -Time 10:00 10:12 -Correct Patient Yes Yes -Correct Side, Site, Position Yes Yes -Correct Procedure Yes Yes -Procedure Performed Yes Yes -Type of Procedure Debridement Debridement -Clinical Debridement Subcutaneous Subcutaneous -Post Debridement Size (cm) - Length 0.9 0.7 -Post Debridement Size (cm) - Width 1.2 2.0 -Post Debridement Size (cm) - Depth 0.3 0.2 -Total Square Cm 1.08 1.40 -Wound/Ulcer Outcome Not Healed Not Healed -Ulcer Cleansing Rinsed/ Rinsed/ Irrigated with Irrigated with Saline Saline -Foul Odor after Cleansing No No -Bioengineered Tissue No No -Bleeding Controlled with Pressure Pressure -Offloading No No -Treatment Response Procedure Procedure Tolerated Well Tolerated Well Pain Scale: 0-10 Numeric Is Patient Pain Free? Yes Yes Wound debrided: lower abdomen Laterality: Right Type of Debridement: Excisional debridement Anesthesia Used: 5% Lidocaine Gel Depth: Down to and including healthy tissue, in the subcutaneous layer Percentage of wound debrided: 100 Instrument Used: 5mm curette Tissue Removed: Subcutaneous tissue and slough Severity: Fat Layer Exposed Amount of bleeding with debridement: Mild Bleeding Controlled with: Pressure Patient tolerated procedure well Assessment/Plan Assessment: 1. 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 2. Massive abdominal panniculus with panniculitis, worse on left side. 3. Borderline diabetes. 4. Abdominal wall skin crease intertrigo. 5. Morbid obesity. 6. Incisional hernia. 7. s/p surgical preparation right lateral abdominal wall massive panniculus with excisional debridement skin and subcutaneous tissue for necrotizing soft tissue infection and panniculectomy (858 cm2). Plan: Wound care is moistened Oliver with Adaptic to the right abdominal wall ulcer daily. She is having more edema and symptomatic pain on the left side of her panniculus with panniculitis. Eventually she will need further excision on the right side, but she is more symptomatic on the left so will proceed with excisional debridement and panniculectomy. Because of the difficulty we had with the last surgery with blood pressure, I will admit her the day before for IV hydration and to begin IV antibitiotics. Surgery will be under general anesthesia with a surgical observation overnight stay in the hospital. Because of issues with Home Health coverage, she may need to go to an [facility] initially for the VAC care along with IV antibiotics. She voices understanding and wishes to proceed only if she may go home after surgery. Her mother states she can learn to do the VAC dressing changes. Patient was informed of the risks and complications of the procedure including alternatives to surgery. These were discussed with her personally. She voices understanding and wishes to proceed. She had been scheduled for surgery for the left abdominal wall for 09/13/19 but it was cancelled due to her TSH level of 102.50. Her TSH recheck was last week 10/21/19 was down to 66. She just recently had a repeat TSH but does not remember what it was, they did increase her medication. Her PCP is managing her thyroid medication. The right lateral abdominal wall ulcer is stable. With the weight of her panniculus, I anticipate the right lateral abdominal wall ulcer will not heal without further excisional surgery. After the left sided surgery, will then address the right side. She states she is having a lot of edema again more on the right side instead of the left side. Instructed her to try not to lay on the one side all the time, try to rotate back and forth. Follow up in 3 weeks. 111xxx-113xx: [id number] Josephine subq tissue 20 sq cm/<
== END 2020-02-02 23:59 ==
LOC: WC 09:30
PROVIDERS: Family Provider Student in an Organized Health Care Education/Training Program; PCP Student in an Organized Health Care Education/Training Program; Visit Provider Nurse Practitioner Family
DX: L98.492 Non-pressure chronic ulcer of skin of other sites with fat layer exposed (principal); E66.01 Morbid (severe) obesity due to excess calories; R73.03 Prediabetes; E65 Localized adiposity; M79.3 Panniculitis, unspecified; L30.4 Erythema intertrigo; K43.2 Incisional hernia without obstruction or gangrene
CPT/HCPCS: 11042

== ENCOUNTER 2020-02-20 08:13 | Outpatient (RCR) | payer MEDICAID, SELFPAY ==
[2020-02-03 00:08] VITALS: BP 168/93; PULSE 81; RESP 18; TEMP 36.6
[2020-02-20 09:29] VITALS: BP 149/101; PULSE 88; RESP 20; TEMP 36.4; BMI 78.4
--- NOTE | 2020-02-20 17:43 | PCM.WC.PN ---
Type of Wound Date of Service: 02/20/20 Chief Complaint: Nonhealing ulcer right lateral abdominal wall and left sided abdominal pannniculus with panniculitis. History of Wound: Surgery 09/21/18 - Surgical preparation right lateral abdominal wall massive panniculus with excisional debridement skin and subcutaneous tissue for necrotizing soft tissue infection and panniculectomy (858 cm2). Wound care - moistened caitlyn covered by Adaptic daily. Today denies any fever, chills or nausea. She states her appetite is good and she is supplementing with protein shakes. Operative culture - Staphylococcus simulans, Corynebacteriurm striatum, Corynebacterium amycolatum, and Anaerobic cocci. She was treated initially with Vancomycin and then was placed on Levaquin for the ECF. Also Cleocin was added for the Anaerobe. She has finished them. Prealbumin from 09/22/18 was 12.0. Encouraged nutritional supplementation with protein to help the healing process. Today she denies fever. Her appetite is ok. With the right side of her abdomen improving, she has noticed the left abdominal wall developing increasing firmness and swelling and dependent edema. She had been scheduled for surgery for the left abdominal wall for 09/13/19 but it was cancelled due to her TSH level of 102.5. She recently had another TSH level and it has decrased to 66. It needs to be less than 10 before proceeding with surgery. Progress of Wound: Improved. - Physical Exam Vital Signs Temp Pulse Resp BP 97.6 F L 88 20 H 149/101 H 02/20/20 09:29 02/20/20 09:29 02/20/20 09:29 02/20/20 09:29 Wound Measurements and Assessment WC - Nurse 1 - General Ulcer Measurement Start: 02/20/20 09:29 Freq: Status: Active Protocol: Activity Type Activity Date Activity User E-Sign Co-Sign Detail Recorded Client Recorded Date Recorded By Document 02/20/20 09:29 DL [id number] 02/20/20 09:38 DL 02/20/20 09:29 Wound Center Nurse 1 [Ulcer Assessment] #2 right pannus -Current Size (cm) - Length 0.5 -Current Size (cm) - Width 1.3 -Current Size (cm) - Depth 0.2 -Total Square Cm 0.65 -Photo Taken No -Exudate Amt None Present -Wound Margin Thickened -Granulation Amt Small (1-33%) -Granulation Quality [place] -Necrosis Amt Small (1-33%) -Necrotic Tissue Type Adherent Slough -Structure Exposed N/A -Texture (Ylly-wound Skin Appearance) Scarring -Moisture (Lyly-wound Skin Appearance Dry/Scaly ) -Color (Lyly-wound Skin Appearance) Rubor -Temperature (Lyly-wound Skin No Abnormality Appearance) (Pt Warm) -Tenderness on Palpation (Lyly-wound No Skin Appearance) -Ulcer Cleansing Rinsed/ Irrigated with Saline -Foul Odor after Cleansing No -Anesthetic Used 4% Lidocaine Solution - Nurse 2 - General Ulcer CM Notes Start: 02/20/20 09:29 Freq: Status: Active Protocol: Activity Type Activity Date Activity User E-Sign Co-Sign Detail Recorded Client Recorded Date Recorded By Document 02/20/20 09:51 DL [id number] 02/20/20 09:54 DL 02/20/20 09:51 Wound Center Nurse 2 [Procedure/Treatment] -Time 09:51 -Correct Patient Yes -Correct Side, Site, Position Yes -Correct Procedure Yes -Procedure Performed Yes -Type of Procedure Debridement -Clinical Debridement Subcutaneous -Post Debridement Size (cm) - Length 1.0 -Post Debridement Size (cm) - Width 1.5 -Post Debridement Size (cm) - Depth 0.2 -Total Square Cm 1.50 -Wound/Ulcer Outcome Not Healed -Ulcer Cleansing Rinsed/ Irrigated with Saline -Foul Odor after Cleansing No -Bioengineered Tissue No -Bleeding Controlled with Pressure -Offloading No -Treatment Response Procedure Tolerated Well [See Physician Procedure note for Specifics] Pain Scale: 0-10 Numeric [Pain] -Is Patient Pain Free? Yes Debridement Note Post-Debridement Measurements/Treatment - Nurse 2 - General Ulcer CM Notes Start: 02/20/20 09:29 Freq: Status: Active Protocol: Activity Type Activity Date Activity User E-Sign Co-Sign Detail Recorded Client Recorded Date Recorded By Document 02/20/20 09:51 DL [id number] 02/20/20 09:54 DL 02/20/20 09:51 Wound Center Nurse 2 #2 right pannus -Time 09:51 -Correct Patient Yes -Correct Side, Site, Position Yes -Correct Procedure Yes -Procedure Performed Yes -Type of Procedure Debridement -Clinical Debridement Subcutaneous -Post Debridement Size (cm) - Length 1.0 -Post Debridement Size (cm) - Width 1.5 -Post Debridement Size (cm) - Depth 0.2 -Total Square Cm 1.50 -Wound/Ulcer Outcome Not Healed -Ulcer Cleansing Rinsed/ Irrigated with Saline -Foul Odor after Cleansing No -Bioengineered Tissue No -Bleeding Controlled with Pressure -Offloading No -Treatment Response Procedure Tolerated Well Pain Scale: 0-10 Numeric Is Patient Pain Free? Yes Wound debrided: #2 Right lateral abdominal wall. Laterality: Right Wound Grade/Stage: 3. Type of Debridement: Excisional debridement Anesthesia Used: 4% Lidocaine Solution Depth: Down to and including healthy tissue, in the subcutaneous layer Percentage of wound debrided: 100 Instrument Used: 5mm curette Tissue Removed: subcutaneous tissue. Severity: Fat Layer Exposed Amount of bleeding with debridement: Mild Bleeding Controlled with: Pressure Patient tolerated procedure well Assessment/Plan Assessment: 1. 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 2. Massive abdominal panniculus with panniculitis, worse on left side. 3. Borderline diabetes. 4. Abdominal wall skin crease intertrigo. 5. Morbid obesity. 6. Incisional hernia. 7. s/p surgical preparation right lateral abdominal wall massive panniculus with excisional debridement skin and subcutaneous tissue for necrotizing soft tissue infection and panniculectomy (858 cm2). Plan: Wound care is moistened Caitlyn with Adaptic to the right abdominal wall ulcer daily. She is having more edema and symptomatic pain on the left side of her panniculus with panniculitis. Eventually she will need further excision on the right side, but she is more symptomatic on the left so will proceed with excisional debridement and panniculectomy. Because of the difficulty we had with the last surgery with blood pressure, I will admit her the day before for IV hydration and to begin IV antibitiotics. Surgery will be under general anesthesia with a surgical observation overnight stay in the hospital. Because of issues with Home Health coverage, she may need to go to an [facility] initially for the VAC care along with IV antibiotics. She voices understanding and wishes to proceed only if she may go home after surgery. Her mother states she can learn to do the VAC dressing changes. Patient was informed of the risks and complications of the procedure including alternatives to surgery. These were discussed with her personally. She voices understanding and wishes to proceed. She had been scheduled for surgery for the left abdominal wall for 09/13/19 but it was cancelled due to her TSH level of 102.50. Her TSH recheck was down to 66. It needs to be less than 10 before proceeding with surgery. Her PCP is managing her thyroid medication. The right lateral abdominal wall ulcer is stable. With the weight of her panniculus, I anticipate the right lateral abdominal wall ulcer will not heal without further excisional surgery. After the left sided surgery, will then address the right side. She states she is having a lot of edema again more on the right side instead of the left side. Instructed her to try not to lay on the one side all the time, try to rotate back and forth. Follow up in 3 weeks. 111xxx-113xx: [id number] Josephine subq tissue 20 sq cm/< - ICD-10 - L98.492, E65, E66.01, L30.4, K43.2, R73.03
== END 2020-03-04 23:59 ==
LOC: WC 08:13
PROVIDERS: Family Provider Student in an Organized Health Care Education/Training Program; PCP Student in an Organized Health Care Education/Training Program; Visit Provider Nurse Practitioner Family
DX: L98.492 Non-pressure chronic ulcer of skin of other sites with fat layer exposed (principal); L30.4 Erythema intertrigo; M79.3 Panniculitis, unspecified; E65 Localized adiposity; K43.2 Incisional hernia without obstruction or gangrene; R73.03 Prediabetes; E66.01 Morbid (severe) obesity due to excess calories
CPT/HCPCS: 11042

== ENCOUNTER 2020-04-02 09:30 | Outpatient (RCR) | payer MEDICAID, SELFPAY ==
[2020-03-05 00:20] VITALS: BP 149/101; PULSE 88; RESP 20; TEMP 36.4
[2020-03-12 09:22] VITALS: BP 174/95; PULSE 89; RESP 20; TEMP 35.8; BMI 78.4
--- NOTE | 2020-03-12 10:13 | PN.PCM_ITS ---
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 Status: Chronic Current Visit: Yes Code(s): L98.492 - Non-pressure chronic ulcer of skin of other sites with fat layer exposed (2) Panniculitis Status: Chronic Current Visit: Yes Code(s): M79.3 - Panniculitis, unspecified (3) Abdominal panniculus, symptomatic Status: Chronic Current Visit: Yes Code(s): E65 - Localized adiposity (4) Obesity, Class III, BMI 40-49.9 (morbid obesity) Status: Chronic Current Visit: Yes Code(s): E66.01 - Morbid (severe) obesity due to excess calories (5) Prediabetes Status: Chronic Current Visit: Yes Code(s): R73.03 - Prediabetes Type of Wound Date of Service: 03/12/20 Chief Complaint: Nonhealing ulcer right lateral abdominal wall and left sided abdominal pannniculus with panniculitis. History of Wound: Surgery 09/21/18 - Surgical preparation right lateral abdominal wall massive panniculus with excisional debridement skin and subcutaneous tissue for necrotizing soft tissue infection and panniculectomy (858 cm2). Wound care - Stop moistened oliver and start collagen hydrogel covered by Adaptic daily. Today denies any fever, chills or nausea. She states her appetite is good and she is supplementing with protein shakes. Operative culture - Staphylococcus simulans, Corynebacteriurm striatum, Corynebacterium amycolatum, and Anaerobic cocci. She was treated initially with Vancomycin and then was placed on Levaquin for the ECF. Also Cleocin was added for the Anaerobe. She has finished them. Prealbumin from 09/22/18 was 12.0. Encouraged nutritional supplementation with protein to help the healing process. Today she denies fever. Her appetite is ok. With the right side of her abdomen improving, she has noticed the left abdominal wall developing increasing firmness and swelling and dependent edema. She had been scheduled for surgery for the left abdominal wall for 09/13/19 but it was cancelled due to her TSH level of 102.5. She recently had another TSH level and it has decrased to 66. It needs to be less than 10 before proceeding with surgery. Progress of Wound: Stable. - Physical Exam Vital Signs Temp Pulse Resp BP 96.4 F L 89 20 H 174/95 H 03/12/20 09:22 03/12/20 09:22 03/12/20 09:22 03/12/20 09:22 General: Alert, Oriented x3, Cooperative HEENT: Atraumatic Oral: Moist Mucosa Lungs: Normal air movement Cardiovascular: Regular rate Abdomen: Obese Extremities: Capillary Refill Less than 3 Seconds Skin: Ulcer/ Wound - Right lower abdomen ulcer Wound Measurements and Assessment - Nurse 1 - General Ulcer Measurement Start: 03/12/20 09:21 Freq: Status: Active Protocol: Activity Type Activity Date Activity User E-Sign Co-Sign Detail Recorded Client Recorded Date Recorded By Document 03/12/20 09:22 [facility] [id number] 03/12/20 09:26 [facility] 03/12/20 09:22 Wound Center Nurse 1 [Ulcer Assessment] #2 right pannus -Combined with other wound No -Current Size (cm) - Length 0.3 -Current Size (cm) - Width 0.3 -Current Size (cm) - Depth 0.1 -Total Square Cm 0.09 -Photo Taken No -Epithelialization Medium 34-66% -Tunneling No -Undermining/Tunneling No -Circular Undermining No -Exudate Amt None Present -Wound Margin Distinct, Outline Attached -Granulation Amt Medium (34-66%) -Granulation Quality Red -Slough/Fibrin Yes -Necrosis Amt Medium (34-66%) -Necrotic Tissue Type Adherent Slough -Texture (Lyly-wound Skin Appearance) Assessed, Scarring -Moisture (Lyly-wound Skin Appearance Assessed,Dry/ ) Scaly -Color (Lyly-wound Skin Appearance) Assessed -Temperature (Lyly-wound Skin No Abnormality Appearance) (Pt Warm) -Tenderness on Palpation (Lyly-wound No Skin Appearance) -Ulcer Cleansing Rinsed/ Irrigated with Saline -Foul Odor after Cleansing No -Anesthetic Used 5% Lidocaine Gel - Nurse 2 - General Ulcer CM Notes Start: 03/12/20 09:21 Freq: Status: Active Protocol: Activity Type Activity Date Activity User E-Sign Co-Sign Detail Recorded Client Recorded Date Recorded By Document 03/12/20 09:38 [id number] 03/12/20 09:39 [facility] 03/12/20 09:38 Wound Center Nurse 2 [Procedure/Treatment] -Time 09:38 -Correct Patient Yes -Correct Side, Site, Position Yes -Correct Procedure Yes -Procedure Performed Yes -Type of Procedure Debridement -Clinical Debridement Subcutaneous -Post Debridement Size (cm) - Length 0.7 -Post Debridement Size (cm) - Width 3.0 -Post Debridement Size (cm) - Depth 0.3 -Total Square Cm 2.10 -Wound/Ulcer Outcome Not Healed -Ulcer Cleansing Rinsed/ Irrigated with Saline -Foul Odor after Cleansing No -Bioengineered Tissue No -Bleeding Controlled with Pressure -Offloading No -Treatment Response Procedure Tolerated Well [See Physician Procedure note for Specifics] Pain Scale: 0-10 Numeric [Pain] -Is Patient Pain Free? Yes Musculoskeletal: No Tenderness to Palpation of Joints or Extremities Neurological: Neuro grossly intact Psych/Mental Status: Normal Affect, Appropriate Debridement Note Post-Debridement Measurements/Treatment WC - Nurse 2 - General Ulcer CM Notes Start: 03/12/20 09:21 Freq: Status: Active Protocol: Activity Type Activity Date Activity User E-Sign Co-Sign Detail Recorded Client Recorded Date Recorded By Document 03/12/20 09:38 [id number] 03/12/20 09:39 [facility] 03/12/20 09:38 Wound Center Nurse 2 #2 right pannus -Time 09:38 -Correct Patient Yes -Correct Side, Site, Position Yes -Correct Procedure Yes -Procedure Performed Yes -Type of Procedure Debridement -Clinical Debridement Subcutaneous -Post Debridement Size (cm) - Length 0.7 -Post Debridement Size (cm) - Width 3.0 -Post Debridement Size (cm) - Depth 0.3 -Total Square Cm 2.10 -Wound/Ulcer Outcome Not Healed -Ulcer Cleansing Rinsed/ Irrigated with Saline -Foul Odor after Cleansing No -Bioengineered Tissue No -Bleeding Controlled with Pressure -Offloading No -Treatment Response Procedure Tolerated Well Pain Scale: 0-10 Numeric Is Patient Pain Free? Yes Wound debrided: Lower abdomen ulcer Laterality: Right Type of Debridement: Excisional debridement Anesthesia Used: 5% Lidocaine Gel Depth: Down to and including healthy tissue, in the subcutaneous layer Percentage of wound debrided: 100 Instrument Used: 5mm curette Tissue Removed: Subcutaneous tissue and slough Severity: Fat Layer Exposed Amount of bleeding with debridement: Mild Bleeding Controlled with: Pressure Patient tolerated procedure well Assessment/Plan Active Problems (Last Reviewed 11/19/18 @ 10:25 by Angela Song) Panniculitis (Chronic) Abdominal panniculus, symptomatic (Chronic) Skin ulcer of abdominal wall with fat layer exposed (Chronic) Obesity, Class III, BMI 40-49.9 (morbid obesity) (Chronic) Prediabetes (Chronic) Assessment: 1. 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 2. Massive abdominal panniculus with panniculitis, worse on left side. 3. Borderline diabetes. 4. Abdominal wall skin crease intertrigo. 5. Morbid obesity. 6. Incisional hernia. 7. s/p surgical preparation right lateral abdominal wall massive panniculus with excisional debridement skin and subcutaneous tissue for necrotizing soft tissue infection and panniculectomy (858 cm2). Plan: Wound care: Stop moistened Oliver and start Collagen Hydrogel covered with Adaptic to the right abdominal wall ulcer daily. She is having more edema and symptomatic pain on the left side of her panniculus with panniculitis. Eventually she will need further excision on the right side, but she is more symptomatic on the left so will proceed with excisional debridement and panniculectomy. Because of the difficulty we had with the last surgery with blood pressure, I will admit her the day before for IV hydration and to begin IV antibitiotics. Surgery will be under general anesthesia with a surgical obse rvation overnight stay in the hospital. Because of issues with Home Health coverage, she may need to go to an ECF initially for the VAC care along with IV antibiotics. She voices understanding and wishes to proceed only if she may go home after surgery. Her mother states she can learn to do the VAC dressing changes. Patient was informed of the risks and complications of the procedure including alternatives to surgery. These were discussed with her personally. She voices understanding and wishes to proceed. She had been scheduled for surgery for the left abdominal wall for 09/13/19 but it was cancelled due to her TSH level of 102.50. Her TSH recheck was down to 66. It needs to be less than 10 before proceeding with surgery. Her PCP is managing her thyroid medication. The right lateral abdominal wall ulcer is stable. With the weight of her panniculus, I anticipate the right lateral abdominal wall ulcer will not heal without further excisional surgery. After the left sided surgery, will then address the right side. She states she is having a lot of edema again more on the right side instead of the left side. Instructed her to try not to lay on the one side all the time, try to rotate back and forth. Follow up in 3 weeks. [id number]: [id number] Josephine subq tissue 20 sq cm/<
[2020-04-02 09:41] VITALS: BP 168/86; PULSE 113; RESP 18; TEMP 36.3; BMI 78.4
--- NOTE | 2020-04-02 15:43 | PN.PCM_ITS ---
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 Status: Chronic Code(s): L98.492 - Non-pressure chronic ulcer of skin of other sites with fat layer exposed (2) Panniculitis Status: Chronic Code(s): M79.3 - Panniculitis, unspecified (3) Abdominal panniculus, symptomatic Status: Chronic Code(s): E65 - Localized adiposity (4) Obesity, Class III, BMI 40-49.9 (morbid obesity) Status: Chronic Code(s): E66.01 - Morbid (severe) obesity due to excess calories (5) Prediabetes Status: Chronic Code(s): R73.03 - Prediabetes Type of Wound Date of Service: 04/02/20 Chief Complaint: Nonhealing ulcer right lateral abdominal wall and left sided abdominal pannniculus with panniculitis. History of Wound: Surgery 09/21/18 - Surgical preparation right lateral abdominal wall massive panniculus with excisional debridement skin and subcutaneous tissue for necrotizing soft tissue infection and panniculectomy (858 cm2). Wound care - Stop moistened oliver and start collagen hydrogel covered by Adaptic daily. Today denies any fever, chills or nausea. She states her appetite is good and she is supplementing with protein shakes. Operative culture - Staphylococcus simulans, Corynebacteriurm striatum, Corynebacterium amycolatum, and Anaerobic cocci. She was treated initially with Vancomycin and then was placed on Levaquin for the ECF. Also Cleocin was added for the Anaerobe. She has finished them. Prealbumin from 09/22/18 was 12.0. Encouraged nutritional supplementation with protein to help the healing process. Today she denies fever. Her appetite is ok. With the right side of her abdomen improving, she has noticed the left abdominal wall developing increasing firmness and swelling and dependent edema. She had been scheduled for surgery for the left abdominal wall for 09/13/19 but it was cancelled due to her TSH level of 102.5. She had another TSH level and it has decreased to 66. She is due to have another level checked. It needs to be less than 10 before proceeding with surgery. Progress of Wound: Improved. - Physical Exam Vital Signs Temp Pulse Resp BP 97.4 F L 113 H 18 168/86 H 04/02/20 09:41 04/02/20 09:41 04/02/20 09:41 04/02/20 09:41 General: Alert, Oriented x3, Cooperative HEENT: Atraumatic Oral: Moist Mucosa Lungs: Normal air movement Cardiovascular: Regular rate Abdomen: Obese Extremities: Capillary Refill Less than 3 Seconds Skin: Ulcer/ Wound - Right lower abdomen ulcer. Wound Measurements and Assessment - Nurse 1 - General Ulcer Measurement Start: 03/12/20 09:21 Freq: Status: Active Protocol: Activity Type Activity Date Activity User E-Sign Co-Sign Detail Recorded Client Recorded Date Recorded By Document 04/02/20 09:41 [facility] [id number] 04/02/20 09:43 [facility] 04/02/20 09:41 Wound Center Nurse 1 [Ulcer Assessment] #2 right pannus -Combined with other wound No -Current Size (cm) - Length 0.1 -Current Size (cm) - Width 0.1 -Current Size (cm) - Depth 0.1 -Total Square Cm 0.01 -Tunneling No -Undermining/Tunneling No -Circular Undermining No -Exudate Amt Small -Exudate Type Serosanguineous -Wound Margin Distinct, Outline Attached -Granulation Amt None Present (0 %) -Necrosis Amt Large (67-100%) -Necrotic Tissue Type Adherent Slough -Texture (Lyly-wound Skin Appearance) Assessed, Scarring -Moisture (Lyly-wound Skin Appearance Assessed,Dry/ ) Scaly -Color (Lyly-wound Skin Appearance) Assessed -Temperature (Lyly-wound Skin No Abnormality Appearance) (Pt Warm) -Tenderness on Palpation (Lyly-wound No Skin Appearance) -Ulcer Cleansing Rinsed/ Irrigated with Saline -Foul Odor after Cleansing No -Anesthetic Used 5% Lidocaine Gel - Nurse 2 - General Ulcer CM Notes Start: 03/12/20 09:21 Freq: Status: Active Protocol: Activity Type Activity Date Activity User E-Sign Co-Sign Detail Recorded Client Recorded Date Recorded By Document 04/02/20 10:18 [id number] 04/02/20 10:20 04/02/20 10:18 Wound Center Nurse 2 [Procedure/Treatment] -Time 10:19 -Correct Patient Yes -Correct Side, Site, Position Yes -Correct Procedure Yes -Procedure Performed Yes -Type of Procedure Debridement -Clinical Debridement Subcutaneous -Post Debridement Size (cm) - Length 1.0 -Post Debridement Size (cm) - Width 2.5 -Post Debridement Size (cm) - Depth 0.3 -Total Square Cm 2.50 -Wound/Ulcer Outcome Not Healed -Ulcer Cleansing Rinsed/ Irrigated with Saline -Foul Odor after Cleansing No -Bioengineered Tissue No -Bleeding Controlled with Pressure -Offloading No -Treatment Response Procedure Tolerated Well [See Physician Procedure note for Specifics] Pain Scale: 0-10 Numeric [Pain] -Is Patient Pain Free? Yes Musculoskeletal: No Muscle Wasting Neurological: Neuro grossly intact Psych/Mental Status: Normal Affect, Appropriate Debridement Note Post-Debridement Measurements/Treatment WC - Nurse 2 - General Ulcer CM Notes Start: 03/12/20 09:21 Freq: Status: Active Protocol: Activity Type Activity Date Activity User E-Sign Co-Sign Detail Recorded Client Recorded Date Recorded By Document 03/12/20 09:38 [id number] 03/12/20 09:39 Document 04/02/20 10:18 [id number] 04/02/20 10:20 03/12/20 04/02/20 09:38 10:18 Wound Center Nurse 2 #2 right pannus -Time 09:38 10:19 -Correct Patient Yes Yes -Correct Side, Site, Position Yes Yes -Correct Procedure Yes Yes -Procedure Performed Yes Yes -Type of Procedure Debridement Debridement -Clinical Debridement Subcutaneous Subcutaneous -Post Debridement Size (cm) - Length 0.7 1.0 -Post Debridement Size (cm) - Width 3.0 2.5 -Post Debridement Size (cm) - Depth 0.3 0.3 -Total Square Cm 2.10 2.50 -Wound/Ulcer Outcome Not Healed Not Healed -Ulcer Cleansing Rinsed/ Rinsed/ Irrigated with Irrigated with Saline Saline -Foul Odor after Cleansing No No -Bioengineered Tissue No No -Bleeding Controlled with Pressure Pressure -Offloading No No -Treatment Response Procedure Procedure Tolerated Well Tolerated Well Pain Scale: 0-10 Numeric Is Patient Pain Free? Yes Yes Wound debrided: Lower abdomen ulcer Laterality: Right Type of Debridement: Excisional debridement Anesthesia Used: 5% Lidocaine Gel Depth: Down to and including healthy tissue, in the subcutaneous layer Percentage of wound debrided: 100 Instrument Used: 3mm curette Tissue Removed: Subcutaneous tissue and slough Severity: Fat Layer Exposed Amount of bleeding with debridement: Mild Bleeding Controlled with: Pressure Patient tolerated procedure well Assessment/Plan Assessment: 1. 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 2. Massive abdominal panniculus with panniculitis, worse on left side. 3. Borderline diabetes. 4. Abdominal wall skin crease intertrigo. 5. Morbid obesity. 6. Incisional hernia. 7. s/p surgical prep aration right lateral abdominal wall massive panniculus with excisional debridement skin and subcutaneous tissue for necrotizing soft tissue infection and panniculectomy (858 cm2). Plan: Wound care: Collagen Hydrogel covered with Adaptic to the right abdominal wall ulcer daily. She is having more edema and symptomatic pain on the left side of her panniculus with panniculitis. Eventually she will need further excision on the right side, but she is more symptomatic on the left so will proceed with excisional debridement and panniculectomy. Because of the difficulty we had with the last surgery with blood pressure, I will admit her the day before for IV hydration and to begin IV antibitiotics. Surgery will be under general anesthesia with a surgical observation overnight stay in the hospital. Because of issues with Home Health coverage, she may need to go to an [facility] initially for the VAC care along with IV antibiotics. She voices understanding and wishes to proceed only if she may go home after surgery. Her mother states she can learn to do the VAC dressing changes. Patient was informed of the risks and complications of the procedure including alternatives to surgery. These were discussed with her personally. She voices understanding and wishes to proceed. She had been scheduled for surgery for the left abdominal wall for 09/13/19 but it was cancelled due to her TSH level of 102.50. Her TSH recheck was down to 66. It needs to be less than 10 before proceeding with surgery. Her PCP is managing her thyroid medication. The right lateral abdominal wall ulcer is stable. With the weight of her panniculus, I anticipate the right lateral abdominal wall ulcer will not heal without further excisional surgery. After the left sided surgery, will then address the right side. She states she is having a lot of edema again more on the right side instead of the left side. Instructed her to try not to lay on the one side all the time, try to rotate back and forth. Follow up in 4 weeks. 111xxx-113xx: [id number] Josephine subq tissue 20 sq cm/<
== END 2020-04-03 23:59 ==
LOC: WC 09:30
PROVIDERS: Family Provider Student in an Organized Health Care Education/Training Program; PCP Student in an Organized Health Care Education/Training Program; Visit Provider Nurse Practitioner Family
DX: L98.492 Non-pressure chronic ulcer of skin of other sites with fat layer exposed (principal); M79.3 Panniculitis, unspecified; E66.01 Morbid (severe) obesity due to excess calories; E65 Localized adiposity; R73.03 Prediabetes; L30.4 Erythema intertrigo
CPT/HCPCS: 11042

== ENCOUNTER 2020-04-30 10:00 | Outpatient (RCR) | payer MEDICAID, SELFPAY ==
[2020-04-04 00:21] VITALS: BP 168/86; PULSE 113; RESP 18; TEMP 36.3
[2020-04-30 10:09] VITALS: BP 172/88; PULSE 104; RESP 20; TEMP 35.8; BMI 78.4
--- NOTE | 2020-04-30 10:21 | PCM.WC.PN ---
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 Status: Chronic Code(s): L98.492 - Non-pressure chronic ulcer of skin of other sites with fat layer exposed (2) Panniculitis Status: Chronic Code(s): M79.3 - Panniculitis, unspecified (3) Obesity, Class III, BMI 40-49.9 (morbid obesity) Status: Chronic Code(s): E66.01 - Morbid (severe) obesity due to excess calories Type of Wound Date of Service: 04/30/20 Chief Complaint: Nonhealing ulcer right lateral abdominal wall and left sided abdominal pannniculus with panniculitis. History of Wound: Surgery 09/21/18 - Surgical preparation right lateral abdominal wall massive panniculus with excisional debridement skin and subcutaneous tissue for necrotizing soft tissue infection and panniculectomy (858 cm2). Operative culture - Staphylococcus simulans, Corynebacteriurm striatum, Corynebacterium amycolatum, and Anaerobic cocci. She was treated initially with Vancomycin and then was placed on Levaquin for the ECF. Also Cleocin was added for the Anaerobe. She has finished them. Prealbumin from 09/22/18 was 12.0. Encouraged nutritional supplementation with protein to help the healing process. Today she denies fever. Her appetite is ok. With the right side of her abdomen improving, she has noticed the left abdominal wall developing increasing firmness and swelling and dependent edema. She had been scheduled for surgery for the left abdominal wall for 09/13/19 but it was cancelled due to her TSH level of 102.5. She had another TSH level and it has decreased to 66. She is due to have another level checked. It needs to be less than 10 before proceeding with surgery. Today she is healed. Progress of Wound: Healed. - Physical Exam Vital Signs Temp Pulse Resp BP 96.5 F L 104 H 20 H 172/88 H 04/30/20 10:04/30/20 10:09 04/30/20 10:04/30/20 10:09 General: Alert, Oriented x3, Cooperative HEENT: Atraumatic Oral: Moist Mucosa Lungs: Clear to auscultation, Normal air movement Cardiovascular: Regular rate Abdomen: Obese Extremities: Capillary Refill Less than 3 Seconds Skin: Ulcer/ Wound - Right lower abdominal ulcer is healed today Wound Measurements and Assessment WC - Nurse 1 - General Ulcer Measurement Start: 04/30/20 10:09 Freq: Status: Active Protocol: Activity Type Activity Date Activity User E-Sign Co-Sign Detail Recorded Client Recorded Date Recorded By Document 04/30/20 10:09 [facility] [id number] 04/30/20 10:12 [facility] 04/30/20 10:09 Wound Center Nurse 1 [Ulcer Assessment] #2 right pannus -Combined with other wound No -Current Size (cm) - Length 0.1 -Current Size (cm) - Width 0.1 -Current Size (cm) - Depth 0.1 -Total Square Cm 0.01 -Photo Taken No -Epithelialization Large 67-100% -Tunneling No -Undermining/Tunneling No -Circular Undermining No -Exudate Amt None Present -Slough/Fibrin Yes -Necrosis Amt Small (1-33%) -Necrotic Tissue Type Adherent Slough -Texture (Lyly-wound Skin Appearance) Assessed, Scarring -Moisture (Lyly-wound Skin Appearance Assessed,Dry/ ) Scaly -Color (Lyly-wound Skin Appearance) Assessed -Temperature (Lyly-wound Skin No Abnormality Appearance) (Pt Warm) -Tenderness on Palpation (Lyly-wound No Skin Appearance) -Ulcer Cleansing Rinsed/ Irrigated with Saline -Foul Odor after Cleansing No -Anesthetic Used 5% Lidocaine Gel Musculoskeletal: No Tenderness to Palpation of Joints or Extremities Neurological: Cranial nerves II-XII grossly intact Psych/Mental Status: Normal Affect, Appropriate Debridement Note No debridement was completed today Assessment/Plan Assessment: 1. 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 2. Massive abdominal panniculus with panniculitis, worse on left side. 3. Borderline diabetes. 4. Abdominal wall skin crease intertrigo. 5. Morbid obesity. 6. Incisional hernia. 7. s/p surgical preparation right lateral abdominal wall massive panniculus with excisional debridement skin and subcutaneous tissue for necrotizing soft tissue infection and panniculectomy (858 cm2). Plan: Today she is healed. She is having more edema and symptomatic pain on the left side of her panniculus with panniculitis. Eventually she will need further excision on the right side, but she is more symptomatic on the left so will proceed with excisional debridement and panniculectomy. Because of the difficulty we had with the last surgery with blood pressure, I will admit her the day before for IV hydration and to begin IV antibitiotics. Surgery will be under general anesthesia with a surgical observation overnight stay in the hospital. Because of issues with Home Health coverage, she may need to go to an ECF initially for the VAC care along with IV antibiotics. She voices understanding and wishes to proceed only if she may go home after surgery. Her mother states she can learn to do the VAC dressing changes. Patient was informed of the risks and complications of the procedure including alternatives to surgery. These were discussed with her personally. She voices understanding and wishes to proceed. She had been scheduled for surgery for the left abdominal wall for 09/13/19 but it was cancelled due to her TSH level of 102.50. Her TSH recheck was down to 66. It needs to be less than 10 before proceeding with surgery. Her PCP is managing her thyroid medication. The right lateral abdominal wall ulcer is stable. With the weight of her panniculus, I anticipate the right lateral abdominal wall ulcer will not heal without further excisional surgery. After the left sided surgery, will then address the right side. She states she is having a lot of edema again more on the right side instead of the left side. Instructed her to try not to lay on the one side all the time, try to rotate back and forth. Follow up as needed or when TSH is under 10. Office Visits / Consults: [id number] OV L3 Est
== END 2020-05-04 23:59 ==
LOC: WC 10:00
PROVIDERS: Family Provider Student in an Organized Health Care Education/Training Program; PCP Student in an Organized Health Care Education/Training Program; Visit Provider Nurse Practitioner Family
DX: Z09 Encounter for follow-up examination after completed treatment for conditions other than malignant neoplasm (principal); E66.01 Morbid (severe) obesity due to excess calories; M79.3 Panniculitis, unspecified; L30.4 Erythema intertrigo; R73.03 Prediabetes; K43.2 Incisional hernia without obstruction or gangrene
CPT/HCPCS: 99212; G0463

== ENCOUNTER 2020-12-18 09:09 | Outpatient (RCR) | payer MEDICAID, SELFPAY ==
[2020-12-18] MEDS: COVID-19 VACC, MRNA(PFIZER)/PF 30 MCG/0.3 ML SYRINGE IM (18:00)
[2021-01-08] MEDS: COVID-19 VACC, MRNA(PFIZER)/PF 30 MCG/0.3 ML SYRINGE IM (17:53)
== END 2020-12-18 23:59 ==
LOC: IMMUN 09:09
PROVIDERS: PCP Student in an Organized Health Care Education/Training Program; Visit Provider Family Medicine
DX: Z23 Encounter for immunization (principal)
CPT/HCPCS: 0001A; 0002A; 91300

== ENCOUNTER 2021-05-20 08:05 | Emergency (ER) | payer MEDICAID, SELFPAY ==
[2021-05-20 08:06] VITALS: BP 134/97; PULSE 128; RESP 18; TEMP 36.4; O2SAT 100; BMI 100.3
--- NOTE | 2021-05-20 08:25 | EKG12_ITS ---
Test Reason : GENERAL ILLNESS Blood Pressure : / mmHG Vent. Rate : 121 BPM Atrial Rate : 121 BPM P-R Int : 156 ms QRS Dur : 084 ms QT Int : 300 ms P-R-T Axes : 065 001 097 degrees QTc Int : 426 ms Sinus tachycardia Low voltage QRS (Precordial Leads) Confirmed by GRACIE GILMORE, BROOKE ([id number]), state editor MALLORY ESCOBAR ([id number]) on 05/22/2021 9:59:38 AM Referred By: Confirmed By:BROOKE BOWMAN MD
--- NOTE | 2021-05-20 09:02 | EDS_ITS ---
HPI History of Present Illness Chief Complaint: General Illness Informant: patient Narrative Narrative: 45-year-old female presenting with chills and not feeling well. She states she woke up this morning feeling cold and shaky. She denies fever. She has received her Covid vaccine. She denies cough or shortness of breath. She denies abdominal pain. She states she has had mild diarrhea, denies vomiting. Denies chest pain. Prior similar symptoms: Yes Recent Illness/Hospitalization: No PFSH PFSH Medical History (Updated 05/20/21 @ 10:[address] Mercedes Bear MD) Abdominal panniculus, symptomatic Acid reflux Acute blood loss anemia Allergic rhinitis Anxiety Anxiety and depression Asthma Depression Difficulty swallowing Encounter for adjustment or management of vascular access device Erythema intertrigo H/O staphylococcal infection Hemorrhoids Hypertension Hypothyroid Incisional hernia Nausea & vomiting Necrotizing soft tissue infection Obesity, Class III, BMI 40-49.9 (morbid obesity) MARCE (obstructive sleep apnea) Panniculitis Prediabetes Severe sepsis Skin ulcer of abdominal wall with fat layer exposed Sleep apnea Super-super obese Home Medications montelukast 10 mg PO DAILY 03/08/18 [History Last Taken 05/05/18] sertraline 100 mg PO DAILY 03/08/18 [History Last Taken 05/05/18] naproxen sodium 440 mg PO Q12H PRN PRN 05/06/18 [History Last Taken 05/04/18] acetaminophen 650 mg PO Q6H PRN PRN tab 05/19/18 [Rx Last Taken Unknown] albuterol sulfate 2.5 mg INHALATION Q2H PRN PRN #1 box 05/19/18 [Rx Last Taken Unknown] hydrochlorothiazide 25 mg PO DAILY 08/02/18 [History Last Taken Unknown] promethazine 25 mg PO Q4H PRN PRN tab 09/26/18 [Rx Last Taken Unknown] levothyroxine 300 mcg tablet 200 mcg PO DAILY tab 11/19/18 [History Last Taken Unknown] oxycodone-acetaminophen 5 mg-325 mg tablet 1 tab PO Q6H PRN 11/19/18 [History Last Taken Unknown] [id number] [Royer - ORANGE FLAVOR] 1 packet PO BIDCM 11/29/18 [History Last Taken Unknown] ascorbic acid (vitamin C) 500 mg PO BID 11/29/18 [History Last Taken Unknown] nystatin [Nyamyc] 1 applic TOPICAL 4X/DAY 11/29/18 [History Last Taken Unknown] pantoprazole 40 mg PO DAILY 11/29/18 [History Last Taken Unknown] bupropion HCl 150 mg PO DAILY 08/19/19 [History Last Taken Unknown] metformin 500 mg PO BIDCM 08/19/19 [History Last Taken Unknown] potassium chloride 20 meq PO BIDCM 08/19/19 [History Last Taken Unknown] Allergy/AdvReac Type Severity Reaction Status Date / Time diphenhydramine HCl Allergy Hives Verified 08/19/19 09:04 [From Benadryl] metronidazole [From Flagyl] Allergy Rash Verified 08/19/19 09:04 venom-honey bee Allergy Anaphylaxis Verified 08/19/19 09:04 [bee venom (honey bee)] aspirin AdvReac Upset Verified 08/19/19 09:04 Stomach codeine AdvReac Other Verified 08/19/19 09:04 ibuprofen AdvReac Upset Verified 08/19/19 09:04 Stomach Penicillins AdvReac Nausea Verified 08/19/19 09:04 Family History Mother Asthma Arthritis Hypertension Thyroid disorder Ulcer Father Diabetes Arthritis Heart disease Hypertension Brother Diabetes Surgical History History of Hx of abdominal surgery Hx of cholecystectomy Hx of tonsillectomy Social History (Updated 11/26/18 @ 10:[address] Sveta Soria MD) Smoking Status: Never smoker second hand exposure: No alcohol intake: never substance use type: does not use caffeine: Yes what type of physical activity do you participate in: other details: OT and PT frequency: daily ROS ROS ED Constitutional Constitutional ED: Reports chills; Denies fever(s) Eyes Eyes: Denies change in vision ENT ENT ED: Denies rhinorrhea or sore throat Cardiovascular Cardiovascular: Denies chest pain or palpitations Respiratory/Chest Respiratory/Chest: Denies cough or dyspnea Gastrointestinal Gastrointestinal: Denies abdominal pain, diarrhea, nausea or vomiting Genitourinary Genitourinary ED: Denies dysuria Musculoskeletal Musculoskeletal: Denies myalgias Integumentary Denies rash Neurologic Neurologic: Denies headache(s) Psychiatric Psychiatric: Denies suicidal thoughts EXAM Physical Exam Const Vital Signs: 05/20/21 08:06 05/20/21 08:37 05/20/21 10:18 Temperature 97.6 F L Temperature Source Temporal Pulse Rate 128 H 88 Respiratory Rate 18 18 Respiratory Effort Normal Non-Labored Respiratory Pattern Normal Blood Pressure 134/97 H Blood Pressure Mean 109 Pulse Ox 100 95 Oxygen Delivery Method Room Air Room Air Positive well nourished and well developed General Appearance ED: well developed HEENT Reports normocephalic and head/scalp atraumatic Eyes PERRL and EOMs intact bilaterally Neck supple General: Negative for tenderness Chest Wall inspection of chest normal Resp normal respiratory effort and clear to auscultation bilaterally Cardio regular rhythm Rate: tachycardic GI non-tender and non-distended GI Narrative: Obese Palpation: soft; Negative for guarding or rebound tenderness present no CVA tenderness Extremity normal to inspection Neuro oriented x3 Sensorium / Orientation: alert Psych mental status grossly normal Skin no rashes or lesions noted MDM MDM MDM Narrative Medical decision making narrative: EKG is sinus tachycardia rate of 121. She was given IV fluids. Repeat heart rate 88. Pulse ox 93% on room air. CBC, chemistries unremarkable. Urinalysis positive for nitrites, 0 white blood cells. Urine culture was sent. On reevaluation, patient is resting comfortably. She is advised to follow-up with her primary care physician. Advised return to ED for worsening complaints. Lab Data Attestation: I reviewed the patient's lab results. Labs: Laboratory Results - last 24 hr 05/20/21 05/20/21 05/20/21 09:15 09:15 09:45 WBC 7.3 RBC 4.09 L Hgb 10.0 L Hct 35.1 L MCV 85.8 MCH 24.4 L MCHC 28.5 L RDW Std Deviation 52.1 H RDW Coeff of Nito 16.7 H Plt Count 222 MPV 10.2 Immature Gran % (Auto) 0.700 Neut % (Auto) 87.0 H Lymph % (Auto) 9.8 L [place] % (Auto) 1.0 Eos % (Auto) 1.1 Baso % (Auto) 0.4 Absolute Neuts (auto) 6.3 Absolute Lymphs (auto) 0.71 L Nucleated RBC % 0.3 Sodium 139 Potassium 3.6 Chloride 107 Carbon Dioxide 26.0 Anion Gap 6 BUN 10 Creatinine 0.82 Estim Creat Clear Calc 65.38 Est GFR (MDRD) Af Amer 96 Est GFR (MDRD) Non-Af 80 BUN/Creatinine Ratio 12.2 Glucose 118 H Calcium 8.4 L Troponin I High Sens 3.1 Urine Color Yellow Urine Clarity Sl. Cloudy Urine pH 5.0 Ur Specific [place] 1.015 Urine Protein Negative Urine Glucose (UA) Normal Urine Ketones Negative Urine Occult Blood 10 H Urine Nitrite Positive H Urine Bilirubin Negative Urine Urobilinogen Normal Ur Leukocyte Esterase Negative Urine RBC 0-5 SEEN Urine WBC 0 SEEN Ur Squamous Epith Cells 0-5 SEEN Urine Bacteria 2+ Urine Mucus 0 SEEN Radiography Chest X-Ray - ED: 1 View, Read by ED Physician and Read by Radiologist Diagnostic Testing: Radiology Impression Chest X-Ray 05/20/21 09:15 IMPRESSION: No acute abnormality is present. Borderline cardiomegaly. Electronically Signed: Michel Shannon MD at 10:09 EDT , Service support , EKG Initial EKG: Attestation: I personally reviewed and interpreted this EKG as follows: Interpretation: Sinus Tachycardia Discharge Plan Triage Chief Complaint: General Illness ED Provider: Mercedes Bear Dx/Rx/DC Orders Clinical Impression: Acute viral syndrome Instructions: ED Viral Syndrome (Adult) Prescriptions: No Action oxycodone-acetaminophen [Percocet] 5-325 mg tablet 1 tab PO Q6H PRN (Reason: Pain) RF: 0 sertraline 100 MG tablet 100 mg PO DAILY RF: 0 montelukast 10 MG tablet 10 mg PO DAILY RF: 0 naproxen sodium 220 MG tablet 440 mg PO Q12H PRN PRN (Reason: Headache) RF: 0 acetaminophen 325 MG tablet 650 mg PO Q6H PRN PRN (Reason: Mild Pain (scale 0-3)/T>100.7) RF: 0 albuterol sulfate 2.5 MG/3 ML solution for nebulization 2.5 mg Inhalation Q2H PRN PRN (Reason: dyspnea, wheezing) Qty: 1 RF: 0 levothyroxine 300 mcg tablet 200 mcg PO DAILY RF: 0 hydrochlorothiazide 25 MG tablet 25 mg PO DAILY RF: 0 promethazine 25 MG tablet 25 mg PO Q4H PRN PRN (Reason: Nausea/Vomiting) RF: 0 pantoprazole 40 MG tablet 40 mg PO DAILY RF: 0 ascorbic acid (vitamin C) 500 MG capsule 500 mg PO BID RF: 0 kqvvm-zfoc-GoDYK-ygwwrz-rm-obw [Royer (with collagen)] 1 PACKET Packet 1 packet PO BIDCM RF: 0 nystatin [Nyamyc] 1 APPLIC bottle 1 applic topical 4X/DAY RF: 0 metformin 500 MG tablet 500 mg PO BIDCM RF: 0 potassium chloride 20 MEQ tablet 20 meq PO BIDCM RF: 0 bupropion HCl 150 MG tablet extended release 24 hr 150 mg PO DAILY RF: 0 Primary Care Provider: Franco Bardales Referrals: Franco Bardales DO [Primary Care Provider] - Disposition Disposition: Home, Self Care
--- NOTE | 2021-05-20 09:15 | RAD_ITS ---
STUDY: X-RAY CHEST REASON FOR EXAM: Female, 45 years old. Sob TECHNIQUE: Single AP portable view of the chest. COMPARISON: Comparison is made with prior study dated 09/21/2018. FINDINGS: EKG electrodes are seen. The lungs are clear and expanded. There is no demonstrated pleural abnormality. There is borderline cardiomegaly. Normal mediastinum and donn. Normal visualized pulmonary arteries. There is atherosclerotic calcification of the aortic arch with tortuosity. Normal visualized thoracic spine. Normal visualized ribs, clavicles, and shoulders. There is no demonstrated abnormality of the visualized soft tissue structures of the upper abdomen. RAD/Chest 1 View (Portable) IMPRESSION: No acute abnormality is present. Borderline cardiomegaly. Electronically Signed: Michel Shannon MD at 10:09 EDT , Service support ,
[2021-05-20 09:23] LABS: Absolute Lymphocyte Count 0.71 X10^3/uL (0.83-4.51); Absolute Neutrophil Count 6.3 X10^3/uL (2.0-7.7); Basophil# 0.03 X10^3/uL; Basophil% 0.4 % (0-1); Eosinophil# 0.08 X10^3/uL; Eosinophils% 1.1 % (0-5); Hematocrit 35.1 % (37-47); Lymphocyte # 0.71 X10^3/ul (0.83-4.51); Lymphocyte % 9.8 % (19-41); Mean Corp Hgb Conc 28.5 g/dL (32-36); Mean Corpuscular Hgb 24.4 pg (27.0-32.0); Mean Corpuscular Volume 85.8 fL (81-99); Mean Platelet Vol. 10.2 fl (6.2-12.0); Monocyte# 0.07 X10^3/uL; NRBC Flagged by Analyzer 0.3 % (0-5); Neutrophil # 6.34 X10^3/uL (2.7-7.7); Platelet Count 222 K/mm3 (150-450); RBC Distribution Width CV 16.7 % (11.6-14.6); RBC Distribution Width SD 52.1 fl (35.1-43.9); Red Blood Count 4.09 M/mm3 (4.2-5.4); White Blood Count 7.3 K/mm3 (4.4-11.0)
[2021-05-20 09:41] LABS: Anion Gap 6 (5-15); BUN 10 mg/dL (7-18); BUN/Creat Ratio 12.2 RATIO (10-20); Calcium,Total 8.4 mg/dL (8.5-10.1); Chloride 107 mmol/L (98-107); Creatinine, Serum 0.82 mg/dL (0.55-1.02); EST Glomerular Filtration Rate 80 mL/min (>60); Est Glom Filt Rate - Afr Amer 96 mL/min (>60); Estimated Creatinine Clearance 65.38 ml/min; Glucose 118 mg/dL (74-106); Potassium 3.6 mmol/L (3.5-5.1); Sodium Level 139 mmol/L (136-145); Troponin-I HS 3.1 pg/mL (3.0-53.7)
[2021-05-20 09:48] LABS: Mucous, Urine 0 SEEN /hpf (<or=2+); White Blood Cells 0 SEEN /hpf (0-5)
[2021-05-20 09:52] LABS: Color, Urine Yellow (Yellow); Glucose, Dipstick Normal (Normal); Ketone-Dipstick Negative (Negative); Leukocyte Esterase-Dipstick Negative /ul (Negative); Nitrite-Dipstick Positive (Negative); Occult Blood-Urine 10 /ul (Negative); Protein-Dipstick Negative (Negative); Specific Gravity, Urine 1.015 (1.002-1.030); Urine Bilirubin Dipstick Negative (Negative); Urine Clarity Sl. Cloudy (Clear); Urine Urobilinogen Normal (Normal)
[2021-05-20 10:07] LABS: Bacteria 2+ /hpf (None Seen); Red Blood Cells-Urine 0-5 SEEN /hpf (0-5); Squamous Epithelial Cells - UA 0-5 SEEN /hpf (5-10)
[2021-05-20 10:18] VITALS: PULSE 88; RESP 18; O2SAT 95
[2021-05-20 11:11] VITALS: BP 150/86; PULSE 88; RESP 20; O2SAT 93
== END 2021-05-20 11:12 | disposition home or self-care (01) ==
PROVIDERS: Emergency Provider Emergency Medicine; PCP Student in an Organized Health Care Education/Training Program
DX: B34.9 Viral infection, unspecified (principal); R68.83 Chills (without fever); R19.7 Diarrhea, unspecified; I10 Essential (primary) hypertension; E03.9 Hypothyroidism, unspecified; E66.01 Morbid (severe) obesity due to excess calories; Z68.45 Body mass index [BMI] 70 or greater, adult; F32.9 Major depressive disorder, single episode, unspecified; F41.9 Anxiety disorder, unspecified; G47.33 Obstructive sleep apnea (adult) (pediatric); J45.909 Unspecified asthma, uncomplicated; K21.9 Gastro-esophageal reflux disease without esophagitis; R73.03 Prediabetes; Z86.2 Personal history of diseases of the blood and blood-forming organs and certain disorders involving the immune mechanism; Z87.19 Personal history of other diseases of the digestive system; Z79.82 Long term (current) use of aspirin; Z79.84 Long term (current) use of oral hypoglycemic drugs; Z79.899 Other long term (current) drug therapy
CPT/HCPCS: 51702; 71045; 80048; 81001; 84484; 85025; 87077; 87086; 87088; 87186; 87426; 93005; 99285

== ENCOUNTER 2021-10-08 11:24 | Inpatient (IN) | payer MEDICAID, SELFPAY ==
[2021-10-08] VITALS (13 sets, daily range): BP systolic 110–144; BP diastolic 65–104; PULSE 95–118; RESP 18–20; TEMP 35.9–36.7; O2SAT 97–100; BMI 75.5; BMI 92.9
--- NOTE | 2021-10-08 12:46 | ED.RN ---
PT YELLING AT STAFF AND TRYING TO PULL AT THEM.
--- NOTE | 2021-10-08 12:47 | ED.RN ---
PT NOT VERY COOPERATIVE WHEN ASKED QUESTIONS.
--- NOTE | 2021-10-08 13:15 | ED.VIS.FEGU ---
HPI HPI - Female History of Present Illness Chief Complaint: Vag Bleeding Informant: patient Bleeding Onset: Weeks (3) Timing: Continuous Current Severity: Heavy Maximum Severity: Heavy Associated Symptoms Associated Symptoms: Negative for Dysuria, Frequency, Urgency and Hematuria Narrative Narrative: 46-year-old female has had heavy vaginal bleeding with clots for the past 3 weeks. She is morbidly obese and sits in a recliner most of the time, she states instead of pads in her underwear or tampons, she is using puppy pads on the recliner that she is changing 3-4 times per day on average. States she has always had heavy menstrual cycles. She had her first Depo shot 3 months ago and was due for the next one today. States she was interested in a hysterectomy but was referred to [place] for that. Patient states she has been tired and lightheaded at times lately, she has had some near syncopal episodes but has had no syncope. Mild abdominal cramping at times it feels like menstrual cramping. [facility] Medical History (Updated 10/08/21 @ 17:[address] Perry Gill MD) Abdominal panniculus, symptomatic Acid reflux Acute blood loss anemia Allergic rhinitis Anxiety Anxiety and depression Asthma Depression Difficulty swallowing Encounter for adjustment or management of vascular access device Erythema intertrigo H/O staphylococcal infection Hemorrhoids Hypertension Hypothyroid Incisional hernia Nausea & vomiting Necrotizing soft tissue infection Obesity, Class III, BMI 40-49.9 (morbid obesity) MARCE (obstructive sleep apnea) Panniculitis Prediabetes Severe sepsis Skin ulcer of abdominal wall with fat layer exposed Sleep apnea Super-super obese Home Medications montelukast 10 mg PO DAILY 03/08/18 [History Last Taken 05/05/18] sertraline 100 mg PO DAILY 03/08/18 [History Last Taken 05/05/18] naproxen sodium 440 mg PO Q12H PRN PRN 05/06/18 [History Last Taken 05/04/18] acetaminophen 650 mg PO Q6H PRN PRN tab 05/19/18 [Rx Last Taken Unknown] albuterol sulfate 2.5 mg INHALATION Q2H PRN PRN #1 box 05/19/18 [Rx Last Taken Unknown] hydrochlorothiazide 25 mg PO DAILY 08/02/18 [History Last Taken Unknown] promethazine 25 mg PO Q4H PRN PRN tab 09/26/18 [Rx Last Taken Unknown] levothyroxine 300 mcg tablet 200 mcg PO DAILY tab 11/19/18 [History Last Taken Unknown] oxycodone-acetaminophen 5 mg-325 mg tablet 1 tab PO Q6H PRN 11/19/18 [History Last Taken Unknown] [id number]-bfld-EoIBF-lttkwx-vv-epy [Royer - ORANGE FLAVOR] 1 packet PO BIDCM 11/29/18 [History Last Taken Unknown] ascorbic acid (vitamin C) 500 mg PO BID 11/29/18 [History Last Taken Unknown] nystatin [Nyamyc] 1 applic TOPICAL 4X/DAY 11/29/18 [History Last Taken Unknown] pantoprazole 40 mg PO DAILY 11/29/18 [History Last Taken Unknown] bupropion HCl 150 mg PO DAILY 08/19/19 [History Last Taken Unknown] metformin 500 mg PO BIDCM 08/19/19 [History Last Taken Unknown] potassium chloride 20 meq PO BIDCM 08/19/19 [History Last Taken Unknown] Allergy/AdvReac Type Severity Reaction Status Date / Time diphenhydramine HCl Allergy Hives Verified 10/08/21 11:25 [From Benadryl] metronidazole [From Flagyl] Allergy Rash Verified 10/08/21 11:25 venom-honey bee Allergy Anaphylaxis Verified 10/08/21 11:25 [bee venom (honey bee)] aspirin AdvReac Upset Verified 10/08/21 11:25 Stomach codeine AdvReac Other Verified 10/08/21 11:25 ibuprofen AdvReac Upset Verified 10/08/21 11:25 Stomach Penicillins AdvReac Nausea Verified 10/08/21 11:25 Family History Mother Asthma Arthritis Hypertension Thyroid disorder Ulcer Father Diabetes Arthritis Heart disease Hypertension Brother Diabetes Surgical History History of Hx of abdominal surgery Hx of cholecystectomy Hx of tonsillectomy Social History Smoking Status: Never smoker second hand exposure: No alcohol intake: never substance use type: does not use caffeine: Yes what type of physical activity do you participate in: other details: OT and PT frequency: daily ROS ROS ED Constitutional Constitutional ED: Denies chills or fever(s) Eyes Eyes: Denies change in vision or diplopia ENT ENT ED: Denies rhinorrhea or sore throat Cardiovascular Cardiovascular: Denies chest pain or palpitations Respiratory/Chest Respiratory/Chest: Denies cough or dyspnea Gastrointestinal Gastrointestinal: Reports abdominal pain; Denies diarrhea, nausea or vomiting Genitourinary Genitourinary ED: Reports as per HPI; Denies dysuria or hematuria Musculoskeletal Musculoskeletal: Denies back pain or neck pain Integumentary Denies abscess or rash Neurologic Neurologic: Denies headache(s), paresthesias or weakness Psychiatric Psychiatric: Denies anxiety or suicidal thoughts EXAM Physical Exam Const Vital Signs: 10/08/21 11:26 10/08/21 15:22 10/08/21 17:23 Temperature 96.7 F L 98 F Temperature Source Temporal Temporal Pulse Rate 111 H 100 Respiratory Rate 18 20 H Blood Pressure 121/104 H 128/81 H 110/77 Blood Pressure Mean 109 96 88 Blood Pressure Source Monitor Blood Pressure Position Supine Blood Pressure Location Left Arm Pulse Ox 100 100 100 Oxygen Delivery Method Room Air Room Air Oxygen Flow Rate (L/min) 2 Positive well nourished and well developed General Appearance ED: well developed and NAD Nutritional Appearance: morbidly obese HEENT Reports moist mucous membranes normocephalic and atraumatic Eyes PERRL and EOMs intact bilaterally Neck full ROM and supple Resp normal respiratory effort and clear to auscultation bilaterally Cardio regular rate, regular rhythm and no murmurs GI non-tender and non-distended GI Narrative: Benign abdomen limited due to morbid obesity Auscultation: normoactive bowel sounds Palpation: soft Narrative: Deferred due to morbid obesity Back/Spine no CVA tenderness General Back: other FROM Extremity normal to inspection General Extremety ED: Negative for edema, pulses abnormal or tenderness General Extremity: Negative for edema or pulses abnormal Neuro oriented x3, CN's II-XII intact bilaterally and no sensory deficits noted Sensorium / Orientation: awake and alert Motor Exam: strength 5/5 throughout Skin no rashes or lesions noted and no wounds MDM MDM MDM Narrative Medical decision making narrative: Patient's hemoglobin is 4.0. I consented her for blood, she was amenable to a transfusion, it was started in the emergency department, I crossed her for 2 units for now. I discussed with Dr. Pool with gynecology, she requested an ultrasound which was done, she was monitored in the ER and did have mild vaginal bleeding but nothing actively severe, she remained hemodynamically stable and will be [facility] Lab Data Attestation: I reviewed the patient's lab results. Labs: Laboratory Results - last 24 hr 10/08/21 10/08/21 10/08/21 13:30 13:30 13:30 WBC 11.7 H RBC 1.93 L Hgb 4.0 L* Hct 14.5 L MCV 75.1 L MCH 20.7 L MCHC 27.6 L RDW Std Deviation 49.8 H RDW Coeff of Nito 18.2 H Plt Count 340 MPV 10.2 Immature Gran % (Auto) 0.900 Neut % (Auto) 67.1 Lymph % (Auto) 23.1 Gem % (Auto) 4.8 Eos % (Auto) 3.7 Baso % (Auto) 0.4 Absolute Neuts (auto) 7.8 H Absolute Lymphs (auto) 2.70 Nucleated RBC % 1.0 Differential Comment COMMENT Diff Path Review May foll Sodium 140 Potassium 4.0 Chloride 103 Carbon Dioxide 28.0 Anion Gap 9 BUN 7 Creatinine 0.75 Estim Creat Clear Calc 70.73 Est GFR (MDRD) Af Amer 106 Est GFR (MDRD) Non-Af 88 BUN/Creatinine Ratio 9.3 L Glucose 174 H Calcium 8.9 Serum , Qual Blood Type A POSITIVE Antibody Screen NEGATIVE Crossmatch 10/08/21 10/08/21 13:30 13:45 WBC RBC Hgb Hct MCV MCH MCHC RDW Std Deviation RDW Coeff of Niot Plt Count MPV Immature Gran % (Auto) Neut % (Auto) Lymph % (Auto) Gem % (Auto) Eos % (Auto) Baso % (Auto) Absolute Neuts (auto) Absolute Lymphs (auto) Nucleated RBC % Differential Comment Diff Path Review Sodium Potassium Chloride Carbon Dioxide Anion Gap BUN Creatinine Estim Creat Clear Calc Est GFR (MDRD) Af Amer Est GFR (MDRD) Non-Af BUN/Creatinine Ratio Glucose Calcium Serum , Qual NEGATIVE Blood Type Antibody Screen Crossmatch See Detail Critical Care Time Critical Care Time: Yes Critical care time (excluding procedures): 30-74 minutes (35 min), Including time spent:, Discussing w/Patient &/or Family/Crime Investigator Special Agent, Discussing w/Consultants, Arranging Admission or Transfer and Performing Direct Patient Care at Bedside Discharge Plan Dx/Rx/DC Orders Clinical Impression: Acute blood loss anemia, Vaginal hemorrhage Disposition Disposition: Acute Care [facility]
[2021-10-08] MEDS: 0.9% Normal Saline 1,000 ML 999 ML IV (13:46)
[2021-10-08 13:49] LABS: Absolute Neutrophil Count 7.8 X10^3/uL (2.0-7.7); Basophil# 0.05 X10^3/uL; Basophil% 0.4 % (0-1); Eosinophil# 0.43 X10^3/uL; Eosinophils% 3.7 % (0-5); Hematocrit 14.5 % (37-47); Lymphocyte % 23.1 % (19-41); Mean Corp Hgb Conc 27.6 g/dL (32-36); Mean Corpuscular Hgb 20.7 pg (27.0-32.0); Mean Corpuscular Volume 75.1 fL (81-99); Mean Platelet Vol. 10.2 fl (6.2-12.0); Monocyte# 0.56 X10^3/uL; Monocyte% 4.8 % (0-10); Neutrophil # 7.82 X10^3/uL (2.7-7.7); Neutrophil % 67.1 % (47-70); POSITIVE COUNT YES; Platelet Count 340 K/mm3 (150-450); RBC Distribution Width CV 18.2 % (11.6-14.6); RBC Distribution Width SD 49.8 fl (35.1-43.9); Red Blood Count 1.93 M/mm3 (4.2-5.4); White Blood Count 11.7 K/mm3 (4.4-11.0)
[2021-10-08 14:00] LABS: Differential Indicated SCAN CRITERIA MET
[2021-10-08 14:06] LABS: Anion Gap 9 (5-15); BUN 7 mg/dL (7-18); BUN/Creat Ratio 9.3 RATIO (10-20); Calcium,Total 8.9 mg/dL (8.5-10.1); Chloride 103 mmol/L (98-107); Creatinine, Serum 0.75 mg/dL (0.55-1.02); EST Glomerular Filtration Rate 88 mL/min (>60); Est Glom Filt Rate - Afr Amer 106 mL/min (>60); Estimated Creatinine Clearance 70.73 ml/min; Glucose 174 mg/dL (74-106); Sodium Level 140 mmol/L (136-145)
--- NOTE | 2021-10-08 14:31 | US_ITS ---
STUDY: ULTRASOUND OF THE FEMALE PELVIS - COMPLETE REASON FOR EXAM: Female, 46 years old. Heavy vaginal bleeding LMP: TECHNIQUE: Transabdominal and Transvaginal TECHNICAL QUALITY: Adequate. COMPARISON: 05/08/2018 FINDINGS: The uterus is anteverted and is in a midline position. The uterus measures 13.5 x 8.2 x 4.6 cm. Normal uterine cervix. The endometrium measures 17 mm in thickness, and is hyperechoic. There is no demonstrated endometrial mass. There is no demonstrated myometrial mass. I.U.D. - The patient does not have an I.U.D. The right ovary is non-visualized. The left ovary is non-visualized. There is no fluid in the cul-de-sac. US/Transvaginal Non- IMPRESSION: Examination is significantly limited by patient body habitus Prominent endometrium may be physiologic, and is nonspecific. Nonvisualization of the bilateral ovaries. Electronically Signed: Ilya Aguilar MD at 17:58 EST Tel , Service support ,
[2021-10-08 14:33] LABS: Internal QC Validated? YES +Cl - CLEAR BKGD; Pregnancy, Serum, hCG Quali. NEGATIVE Negative
--- NOTE | 2021-10-08 18:51 | EKG12_ITS ---
Test Reason : BLEEDING Blood Pressure : / mmHG Vent. Rate : 098 BPM Atrial Rate : 098 BPM P-R Int : 160 ms QRS Dur : 086 ms QT Int : 342 ms P-R-T Axes : 082 008 043 degrees QTc Int : 436 ms Normal sinus rhythm Normal ECG Confirmed by DARNELL WALLACE MD ([id number]), editor managing newspaper EMMANUEL SHANE ([id number]) on 10/11/2021 9:51:45 AM Referred By: BB Confirmed By:DARNELL WALLACE MD
--- NOTE | 2021-10-08 19:03 | PCM.HP.STD ---
HPI - General General Date of Admission: 10/08/21 HPI Narrative ROSALIE RUFF, is a 46 F who presents to the ED with increased heavy vaginal bleeding for the past 3 weeks. She sits in a recliner most of the time and is using puppy pads on the recliner. She is changing them 3-4 times per day on average. States she has always had heavy menstrual cycles. She had her first Depo shot 3 months ago and was hoping to get her next one today. Patient could not get into the office because of mobility issues so she presents to the ED. She has some mild abdominal cramps at times but otherwise denies pain. [facility] Medical History (Updated 10/08/21 @ 17:[address] Perry Gill MD) Abdominal panniculus, symptomatic Acid reflux Acute blood loss anemia Allergic rhinitis Anxiety Anxiety and depression Asthma Depression Difficulty swallowing Encounter for adjustment or management of vascular access device Erythema intertrigo H/O staphylococcal infection Hemorrhoids Hypertension Hypothyroid Incisional hernia Nausea & vomiting Necrotizing soft tissue infection Obesity, Class III, BMI 40-49.9 (morbid obesity) MARCE (obstructive sleep apnea) Panniculitis Prediabetes Severe sepsis Skin ulcer of abdominal wall with fat layer exposed Sleep apnea Super-super obese Home Medications montelukast 10 mg PO DAILY 03/08/18 [History Last Taken 05/05/18] sertraline 100 mg PO DAILY 03/08/18 [History Last Taken 05/05/18] naproxen sodium 440 mg PO Q12H PRN PRN 05/06/18 [History Last Taken 05/04/18] acetaminophen 650 mg PO Q6H PRN PRN tab 05/19/18 [Rx Last Taken Unknown] albuterol sulfate 2.5 mg INHALATION Q2H PRN PRN #1 box 05/19/18 [Rx Last Taken Unknown] promethazine 25 mg PO Q4H PRN PRN tab 09/26/18 [Rx Last Taken Unknown] levothyroxine 300 mcg tablet 200 mcg PO DAILY tab 11/19/18 [History Last Taken Unknown] nystatin [Nyamyc] 1 applic TOPICAL 4X/DAY 11/29/18 [History Last Taken Unknown] bupropion HCl 150 mg PO DAILY 08/19/19 [History Last Taken Unknown] metformin 500 mg PO BIDCM 08/19/19 [History Last Taken Unknown] medroxyprogesterone mg IM 10/08/21 [History Last Taken Unknown] pramipexole 0.5 mg PO QHS PRN PRN 10/08/21 [History Last Taken Unknown] Allergy/AdvReac Type Severity Reaction Status Date / Time diphenhydramine HCl Allergy Hives Verified 10/08/21 11:25 [From Benadryl] metronidazole [From Flagyl] Allergy Rash Verified 10/08/21 11:25 venom-honey bee Allergy Anaphylaxis Verified 10/08/21 11:25 [bee venom (honey bee)] aspirin AdvReac Upset Verified 10/08/21 11:25 Stomach codeine AdvReac Other Verified 10/08/21 11:25 ibuprofen AdvReac Upset Verified 10/08/21 11:25 Stomach Penicillins AdvReac Nausea Verified 10/08/21 11:25 Family History Mother Asthma Arthritis Hypertension Thyroid disorder Ulcer Father Diabetes Arthritis Heart disease Hypertension Brother Diabetes Surgical History History of Hx of abdominal surgery Hx of cholecystectomy Hx of tonsillectomy Social History Smoking Status: Never smoker second hand exposure: No alcohol intake: never substance use type: does not use caffeine: Yes what type of physical activity do you participate in: other details: OT and PT frequency: daily ROS Constitutional Constitutional: Reports chills and weakness Cardiovascular Cardiovascular: Denies chest pain, claudication, edema, orthopnea, palpitations, paroxysmal nocturnal dyspnea or syncope Respiratory/Chest Respiratory/Chest: Reports shortness of breath with exertion Vital Signs Vital Signs Vital Signs: 10/08/21 11:26 10/08/21 15:22 10/08/21 17:23 Temperature 96.7 F L 98 F Temperature Source Temporal Temporal Pulse Rate 111 H 100 Respiratory Rate 18 20 H Blood Pressure 121/104 H 128/81 H 110/77 Blood Pressure Mean 109 96 88 Blood Pressure Source Monitor Blood Pressure Position Supine Blood Pressure Location Left Arm Pulse Ox 100 100 100 Oxygen Delivery Method Room Air Room Air Oxygen Flow Rate (L/min) 2 10/08/21 17:38 10/08/21 17:41 10/08/21 18:47 Temperature 97.8 F 98 F Temperature Source Axillary Temporal Pulse Rate 98 102 H Respiratory Rate 18 20 H Blood Pressure 135/65 H 135/65 H 144/70 H Blood Pressure Mean 88 88 94 Blood Pressure Source Monitor Blood Pressure Position Supine Blood Pressure Location Right Arm Pulse Ox 100 99 99 Oxygen Delivery Method Room Air Room Air Room Air Oxygen Flow Rate (L/min) Weight Weight: 400 lb Body Mass Index (BMI) 75.5 Physical Exam Const alert and oriented x3 Resp normal respiratory effort GI soft to palpation GI Narrative: obese with pannus Palpation: hernia Extremity no calf tenderness General Extremity: edema Neuro CN's II-XII intact bilaterally Psych affect normal Results Lab / Micro Data Result Diagrams: 10/08/21 13:30 10/08/21 13:30 Labs: Laboratory Results - last 24 hr 10/08/21 13:30: WBC 11.7 H, RBC 1.93 L, Hgb 4.0 L*, Hct 14.5 L, MCV 75.1 L, MCH 20.7 L, MCHC 27.6 L, RDW Std Deviation 49.8 H, RDW Coeff of Nito 18.2 H, Plt Count 340, MPV 10.2, Immature Gran % (Auto) 0.900, Neut % (Auto) 67.1, Lymph % (Auto) 23.1, Jackson % (Auto) 4.8, Eos % (Auto) 3.7, Baso % (Auto) 0.4, Absolute Neuts (auto) 7.8 H, Absolute Lymphs (auto) 2.70, Nucleated RBC % 1.0, Differential Comment COMMENT, Diff Path Review February10/08/21 13:30: Sodium 140, Potassium 4.0, Chloride 103, Carbon Dioxide 28.0, Anion Gap 9, BUN 7, Creatinine 0.75, Estim Creat Clear Calc 70.73, Est GFR (MDRD) Af Amer 106, Est GFR (MDRD) Non-Af 88, BUN/Creatinine Ratio 9.3 L, Glucose 174 H, Calcium 8.9 10/08/21 13:30: Blood Type A POSITIVE, Antibody Screen NEGATIVE 10/08/21 13:30: Crossmatch See Detail 10/08/21 13:45: Serum , Qual NEGATIVE Radiology Impression Transvaginal US 10/08/21 14:31 IMPRESSION: Examination is significantly limited by patient body habitus Prominent endometrium may be physiologic, and is nonspecific. Nonvisualization of the bilateral ovaries. Electronically Signed: Ilya Aguilar MD at 17:58 EST Tel , Service support , Assessment & Plan Assessment/Plan (1) Acute blood loss anemia: PLAN: Hb 4 on admission to ED. Currently getting 2 units PRBC's. Plan to tranfuse a total of 3 units & repeat cbc in the AM. (2) Hypothyroid: QUALIFIERS: Hypothyroidism type: unspecified Qualified Code(s): E03.9 - Hypothyroidism, unspecified PLAN: Continue levothyroxine (3) Hypertension: QUALIFIERS: Hypertension type: essential hypertension Qualified Code(s): I10 - Essential (primary) hypertension PLAN: Continue HCTZ (4) Prediabetes: PLAN: Continue metformin (5) Asthma: QUALIFIERS: Asthma complication type: unspecified Asthma persistence: unspecified Asthma severity: unspecified severity Qualified Code(s): J45.909 - Unspecified asthma, uncomplicated PLAN: Continue albuterol PRN (6) Anxiety and depression: PLAN: Continue home meds (7) Vaginal hemorrhage: PLAN: Plan for dilated & curettage tomorrow to evaluate endometrium. Pelvic US reviewed & endometrial stripe is thickened at 17mm.
--- NOTE | 2021-10-08 22:37 | PCS.PANDOC ---
PANDEMIC DOCUMENTATION INITIATED: Date: 05/20/2021 Time: 190
--- NOTE | 2021-10-08 22:37 | NURSING ---
Pts vitals showing at 1945 were actually taken at 2145 prior to 2nd unit of blood being started.
[2021-10-08] MEDS: Nystatin Powder 15gm Bottle 1 APPLIC TOPICAL (22:58)
[2021-10-09] VITALS (19 sets, daily range): BP systolic 102–131; BP diastolic 53–75; PULSE 88–103; RESP 16–18; TEMP 36.1–36.8; O2SAT 92–99
--- NOTE | 2021-10-09 | EMB_PTH ---
PATIENT: ROSALIE RUFF LOC: PCU U#:[id number] AGE/SX: 46/F ROOM: [facility] RE10/08/[address]: Dr. Esme Pool MD : 1975 BED: 1 DIS: 10/10/2021 SPEC #: [id number] RECD: 10/09/21 14:18 STATUS: NIMISHA RESimeon #: [id number] TANA: 10/09/21 00:[address]: Kenisha Craroll DEPT: SURGICAL PATHOLOGY RECD BY: Yadiel Latham ENTERED: 10/10/21 10:40 SP TYPE: ENDOM BX/C OTHR DR: DO Dr. Esme Bridges MD Tissues: Endometrium, NOS Procedures: Surgery Specimen Level IV Comments: @ Ordering doctor for VIANEY edited from to @ by RGOOD at 10/10/21 1526 @ Submitting doctor edited from to @ by RGOOD at 10/10/21 1526 HEADER OPERATION: Hysteroscopy, dilation and curettage, IUD insertion PRE-OP DIAGNOSIS: Acute blood loss anemia; vaginal hemorrhage TISSUE SUBMITTED: Endometrial curettings MICROSCOPIC DIAGNOSIS Endometrium, curettings: Glandular and stromal breakdown consistent with perimenstrual endometrium. Strips of superficial benign endocervix. Chronic endometritis. Rare strips of benign superficial squamous mucosa. AM:jeromy 10/11/2021 MICROSCOPIC DESCRIPTION Slides are reviewed. GROSS DESCRIPTION Received in fixative is one container labeled with the patient's name and designated endometrial curettings. The specimen consists of multiple irregular fragments of red-luna soft tissue that in aggregate measure 4.5 x 3 x 0.2 cm. The specimen is totally submitted in two cassettes. / AM:jeromy 10/10/21 TC:3 CPT: 56294
[2021-10-09] MEDS: Acetaminophen 325 MG Tablet 650 MG PO (01:19)
[2021-10-09] MEDS: 0.9% Normal Saline 1,000 ML 125 ML IV (02:13)
[2021-10-09] MEDS: Levothyroxine 100 MCG Tablet 200 MCG PO (05:08)
[2021-10-09] MEDS: Estrogens,Conj. 25 MG Vial IV (06:22)
[2021-10-09 06:31] LABS: Absolute Lymphocyte Count 2.52 X10^3/uL (0.83-4.51); Absolute Neutrophil Count 6.4 X10^3/uL (2.0-7.7); Basophil# 0.05 X10^3/uL; Basophil% 0.5 % (0-1); Eosinophil# 0.42 X10^3/uL; Eosinophils% 4.2 % (0-5); Hematocrit 20.6 % (37-47); Lymphocyte # 2.52 X10^3/ul (0.83-4.51); Lymphocyte % 25.1 % (19-41); Mean Corp Hgb Conc 28.6 g/dL (32-36); Mean Corpuscular Hgb 22.5 pg (27.0-32.0); Mean Corpuscular Volume 78.6 fL (81-99); Mean Platelet Vol. 10.6 fl (6.2-12.0); Monocyte# 0.53 X10^3/uL; Monocyte% 5.3 % (0-10); NRBC Flagged by Analyzer 1.3 % (0-5); Neutrophil # 6.42 X10^3/uL (2.7-7.7); Neutrophil % 64.1 % (47-70); POSITIVE COUNT YES; Platelet Count 338 K/mm3 (150-450); RBC Distribution Width CV 17.8 % (11.6-14.6); Red Blood Count 2.62 M/mm3 (4.2-5.4)
[2021-10-09 06:31] LABS: Bedside Glucose 121 mg/dL (70-110)
[2021-10-09 06:39] LABS: Differential Indicated SCAN CRITERIA MET; Hemoglobin 5.9 g/dL (12.0-15.0); International Normalized Ratio 1.2; Partial Thromboplast Time 29.9 Seconds (24.1-36.2); Prothrombin Time (Protime)PT. 14.7 SECONDS (11.7-14.9)
[2021-10-09 06:59] LABS: Anisocytosis 2+; Differential Comment SCANNED; Hypochromasia 2+; Microcytosis 2+
[2021-10-09 07:07] LABS: Anion Gap 7 (5-15); BUN 6 mg/dL (7-18); Calcium,Total 8.4 mg/dL (8.5-10.1); Chloride 106 mmol/L (98-107); Creatinine, Serum 0.67 mg/dL (0.55-1.02); EST Glomerular Filtration Rate 101 mL/min (>60); Est Glom Filt Rate - Afr Amer 122 mL/min (>60); Estimated Creatinine Clearance 79.17 ml/min; Glucose 122 mg/dL (74-106); Potassium 3.9 mmol/L (3.5-5.1); Sodium Level 139 mmol/L (136-145)
[2021-10-09 07:48] LABS: Hemoglobin A1c 6.9 % (3.8-5.6)
--- NOTE | 2021-10-09 09:03 | PCM.PN.OB ---
Subjective Subjective Denies pain or CP. Still bleeding moderately. Objective Data Objective Data Awake, alert, NAD Vital Signs: Vital Signs Temp Pulse Resp BP Pulse Ox 98.1 F 92 18 121/66 H 97 10/09/21 08:40 10/09/21 08:40 10/09/21 08:40 10/09/21 08:40 10/09/21 08:40 Oxygen Flow Rate (L/min) 2 Oxygen Delivery Method Room Air Weight: 223.3 kg Body Mass Index (BMI) 92.9 Intake & Output: Intake and Output for Last 24 Hours 10/07/21 10/08/21 10/09/21 23:59 23:59 23:59 Intake Total 1800 / 1800 640 / 640 Output Total 350 / 350 350 / 350 Balance 1450 / 1450 290 / 290 Lab / Micro Data Result Diagrams: 10/09/21 05:28 10/09/21 05:25 Labs: Laboratory Results - last 24 hr 10/08/21 13:30: WBC 11.7 H, RBC 1.93 L, Hgb 4.0 L*, Hct 14.5 L, MCV 75.1 L, MCH 20.7 L, MCHC 27.6 L, RDW Std Deviation 49.8 H, RDW Coeff of Nito 18.2 H, Plt Count 340, MPV 10.2, Immature Gran % (Auto) 0.900, Neut % (Auto) 67.1, Lymph % (Auto) 23.1, Appling % (Auto) 4.8, Eos % (Auto) 3.7, Baso % (Auto) 0.4, Absolute Neuts (auto) 7.8 H, Absolute Lymphs (auto) 2.70, Nucleated RBC % 1.0, Differential Comment COMMENT, Diff Path Review February10/08/21 13:30: Sodium 140, Potassium 4.0, Chloride 103, Carbon Dioxide 28.0, Anion Gap 9, BUN 7, Creatinine 0.75, Estim Creat Clear Calc 70.73, Est GFR (MDRD) Af Amer 106, Est GFR (MDRD) Non-Af 88, BUN/Creatinine Ratio 9.3 L, Glucose 174 H, Calcium 8.9 10/08/21 13:30: Blood Type A POSITIVE, Antibody Screen NEGATIVE 10/08/21 13:30: Crossmatch See Detail 10/08/21 13:30: Crossmatch See Detail 10/08/21 13:30: Crossmatch See Detail 10/08/21 13:45: Serum , Qual NEGATIVE 10/09/21 05:25: Sodium 139, Potassium 3.9, Chloride 106, Carbon Dioxide 26.0, Anion Gap 7, BUN 6 L, Creatinine 0.67, Estim Creat Clear Calc 79.17, Est GFR (MDRD) Af Amer 122, Est GFR (MDRD) Non-Af 101, BUN/Creatinine Ratio 9.0 L, Glucose 122 H, Calcium 8.4 L, TSH 36.60 H 10/09/21 05:28: WBC 10.0, RBC 2.62 L, Hgb 5.9 L*, Hct 20.6 L, MCV 78.6 L, MCH 22.5 L, MCHC 28.6 L, RDW Std Deviation 51.0 H, RDW Coeff of Nito 17.8 H, Plt Count 338, MPV 10.6, Immature Gran % (Auto) 0.800, Neut % (Auto) 64.1, Lymph % (Auto) 25.1, Appling % (Auto) 5.3, Eos % (Auto) 4.2, Baso % (Auto) 0.5, Absolute Neuts (auto) 6.4, Absolute Lymphs (auto) 2.52, Nucleated RBC % 1.3, Differential Comment SCANNED, Diff Path Review May foll, Hypochromasia 2+, Anisocytosis 2+, Microcytosis 2+ 10/09/21 05:28: PT 14.7, INR 1.2, APTT 29.9 10/09/21 05:28: Hemoglobin A1c 6.9 H 10/09/21 06:21: POC Glucose 121 H Micro: Microbiology 10/08/21 20:45 Nasal Secretion SARS-CoV-2 Antigen (Rapid) - Final Radiography Diagnostic Testing: Radiology Impression Transvaginal US 10/08/21 14:31 IMPRESSION: Examination is significantly limited by patient body habitus Prominent endometrium may be physiologic, and is nonspecific. Nonvisualization of the bilateral ovaries. Electronically Signed: Ilya Aguilar MD at 17:58 EST Tel , Service support , Assessment & Plan (1) Acute blood loss anemia: (2) Super-super obese: (3) Vaginal hemorrhage: (4) Fe deficiency anemia: QUALIFIERS: Iron deficiency anemia type: chronic blood loss Qualified Code(s): D50.0 - Iron deficiency anemia secondary to blood loss (chronic) PLAN: Can't tolerate PO fe. Has tried in the past. encourage MVI. Will give IV fe dose before she leaves. Pelvic US reviewed. R/B/a to Hysteroscopy D&C with IUD insertion reviewed. If unable to do hysteroscopy due to super obesity will at least attempt to get EMB. Patients questions answered, she agrees to proceed. Consent signed (5) Iron malabsorption:
--- NOTE | 2021-10-09 10:45 | CASEMGMT ---
JENIFER SHAH assessment: Face to Face with patient for initial transition planning/care coordination assessment. RN PABLO introduced self and role at [facility], pt voices understanding and consents to assessment. Pt is sitting up in bed in no distress on room air. Pt is A/Ox4 and answers all questions appropriately. Pt's mother is at bedside during assessment. Care providers, pharmacy, and demographics verified. Presentation: Pt sent in by [facility] for vaginal bleeding x3 weeks with large clots-pt c/o nausea/dizziness Admitting dx: Acute blood loss anemia, vaginal bleeding PCP: Jeffy Specialists: Ruthie, plastics; kat Carroll Preferred Pharmacy: [facility] Insurance: RUST Prescription Benefit: RUST Living Will/HPOA: Pt does not have LW/HPOA and declines AD info. LNOK: Amna Benton, mother Living Arrangements: Pt lives with children(22yo and 13yo twins) in 1 story home with ramp entrance and states no concerns at home. Pt states is mostly independent with ADL's but per notes, lives sedentary lifestyle and does not get out of her chair much during day. Transportation: Pt states normally drives self but states her car is currently not working. Pt states no transportation concerns as her mother assists. DME/HHC: Pt has the following DME: walker, w/c, and shower chair. Pt states no need for any further DME. Pt states no hx of HHC but has been to [facility] in past s/p surgery. Pt states no concerns with going home at time of discharge. Pt is on disability. Pt states does not smoke cigarettes or drink ETOH. Pt states no further concerns/needs. CM to follow for any further discharge planning/needs. Advised pt to ask for CM if any further questions/concerns/needs arise, voices understanding. Pt Goal: Home Plan: [place] JENIFER SHAH
[2021-10-09 11:39] LABS: Hematocrit 22.9 % (37-47); Hemoglobin 6.8 g/dL (12.0-15.0); Mean Corp Hgb Conc 29.7 g/dL (32-36); Mean Corpuscular Hgb 23.4 pg (27.0-32.0); Mean Platelet Vol. 10.1 fl (6.2-12.0); Platelet Count 328 K/mm3 (150-450); RBC Distribution Width CV 18.4 % (11.6-14.6); RBC Distribution Width SD 53.2 fl (35.1-43.9); White Blood Count 9.9 K/mm3 (4.4-11.0)
[2021-10-09] MEDS: Levonorgestrel IUD (Liletta) 1 EACH INTRA-UTER (12:59)
[2021-10-09] MEDS: Lactated Ringers 1,000 ML 15 ML IV (13:00)
--- NOTE | 2021-10-09 13:21 | PCM.OPRPT ---
Problems Associated Problem List Diagnoses (1) Fe deficiency anemia: (2) Acute blood loss anemia: (3) Abnormal uterine bleeding (AUB): Report of Operation Date of Procedure: 10/09/21 Pre-Operative Diagnosis: abnormal uterine bleeding, chronic blood loss anemia due to abnormal uterine bleeding, enlarged uterus, morbid obesity Post-Operative Diagnosis: same Surgery/Procedure Performed:: Hysteroscopy D&C w/ Lilletta IUD insertion Description of Surgical Findings:: normal cervix and vagina. Endometrial cavity w/ lush endometrium, no discrete polyps Surgeon: Kenisha Carroll echocardiograph tech: Shalini Negron Type of Anesthesia: MAC Anesthesiologist: Aditya Paul Special Medications: none Specimen's removed: endometrial curettings Drains: none Estimated Blood Loss (mL): 20 Fluids Replaced: 500 Description of Procedure: The patient was taken to the OR where she was prepped and draped in dorsal lithotomy position. 3 right-angled retractors were placed in the vagina. Dr. Negron had to help provide tissue traction to assist with visualization of the cervix. Nazario straps were placed on the pannus. We were then able to visualize the cervix and the anterior lip of the cervix was grasped with a single-tooth tenaculum. The cervix was dilated serially with Hegar dilators. An endometrial Pipelle was used to vigorously obtain curettings as I was uncertain if I be able to place the hysteroscope and I went to make sure I got a sample of the uterine lining. The [5mm] hysteroscope was placed into the uterine cavity and the above findings were noted. Bilateral tubal ostia [were] identified. Sharp curettage was done to remove as much of the endometrial lining as possible. The instrument was then removed. The Liletta IUD was then inserted the usual sterile fashion and the strings were cut to 4 cm. The instruments were removed from the vagina. The specimen was handed off and sent to pathology. All sponge and needle counts were correct. Vaginal sweep was performed by me. The patient was awakened and taken to the recovery room in stable condition. Hysteroscopic ins: 150cc normal saline Hysteroscopic outs:100cc Grafts/Implants Used: Lilletta IUD Procedure Start Time: 12:47 Procedure Stop Time: 13:00 Complications none Admit VTE Documentation VTE Present on Admission: No VTE Mechan Device Prophylaxis: SCD's VTE Pharm Prophylaxis ordered?: No
[2021-10-09 13:25] LABS: Pathologist Review Reviewed
[2021-10-09] MEDS: Sodium Ferric Gluconat 250 MG in 0.9% Normal Saline 250 ML 135 MG IV ×2 (13:42→14:36)
[2021-10-09] MEDS: Nystatin Powder 15gm Bottle 1 APPLIC TOPICAL ×2 (14:38→21:33)
[2021-10-09] MEDS: Sertraline 100 MG Tablet PO (14:39)
[2021-10-09] MEDS: buPROPion (XL) 150 MG TABLET.XL PO (14:40)
[2021-10-09] MEDS: Pantoprazole Sodium 40 MG Tablet PO (14:40)
[2021-10-09] MEDS: hydroCHLOROthiazide 25 MG Tablet PO (14:40)
[2021-10-09] MEDS: Montelukast 10 MG Tablet PO (14:40)
[2021-10-09] MEDS: 0.9% Normal Saline 1,000 ML 30 ML IV (14:43)
[2021-10-09] MEDS: Ondansetron ODT 4 MG Tablet PO (15:05)
[2021-10-09 17:20] LABS: Bedside Glucose 115 mg/dL (70-110)
[2021-10-09] MEDS: Docusate Sodium 100 MG Capsule PO (21:32)
[2021-10-09] MEDS: Enoxaparin 40 MG/0.4 ML Syringe SC (21:33)
[2021-10-09] MEDS: Megestrol 40 MG Tablet PO (21:34)
[2021-10-09 21:46] LABS: Bedside Glucose 116 mg/dL (70-110)
[2021-10-10] VITALS (11 sets, daily range): BP systolic 119–144; BP diastolic 56–85; PULSE 89–100; RESP 16–20; TEMP 36.2–37.1; O2SAT 92–97
[2021-10-10] MEDS: Megestrol 40 MG Tablet PO ×2 (05:17→15:00)
[2021-10-10] MEDS: Levothyroxine 100 MCG Tablet 200 MCG PO (05:17)
[2021-10-10 06:50] LABS: Bedside Glucose 133 mg/dL (70-110)
[2021-10-10 07:20] LABS: Hematocrit 22.7 % (37-47); Hemoglobin 6.5 g/dL (12.0-15.0); Mean Corp Hgb Conc 28.6 g/dL (32-36); Mean Corpuscular Volume 80.5 fL (81-99); Mean Platelet Vol. 10.5 fl (6.2-12.0); Platelet Count 318 K/mm3 (150-450); Red Blood Count 2.82 M/mm3 (4.2-5.4); White Blood Count 13.2 K/mm3 (4.4-11.0)
--- NOTE | 2021-10-10 08:35 | PCM.PN.OB ---
Subjective Subjective Patient denies any pain. Minimal vaginal bleeding overnight. Denies palpitations, chest pain lightheadedness or dizziness. Feels much better than when she arrived to the hospital. She reports she feels much better than when she arrived to the hospital. Would like to go home today. Objective Data Objective Data Vital Signs: Vital Signs Temp Pulse Resp BP Pulse Ox 98.4 F 89 16 122/65 H 97 10/10/21 02:30 10/10/21 02:30 10/10/21 02:30 10/10/21 02:30 10/10/21 02:30 Oxygen Flow Rate (L/min) 2 Oxygen Delivery Method Room Air Weight: 223.3 kg Body Mass Index (BMI) 92.9 Intake & Output: Intake and Output for Last 24 Hours 10/08/21 10/09/21 10/10/21 23:59 23:59 23:59 Intake Total 1800 / 1800 2253.00 / 2253.00 0 / 0 Output Total 350 / 350 400 / 400 Balance 1450 / 1450 1853.00 / 1853.00 0 / 0 Lab / Micro Data Result Diagrams: 10/10/21 06:01 10/09/21 05:25 Labs: Laboratory Results - last 24 hr 10/08/21 13:30: Crossmatch See Detail 10/08/21 13:30: Crossmatch See Detail 10/08/21 13:30: Crossmatch See Detail 10/09/21 05:28: Diff Path Review Reviewed 10/09/21 11:28: WBC 9.9, RBC 2.90 L, Hgb 6.8 L, Hct 22.9 L, MCV 79.0 L, MCH 23.4 L, MCHC 29.7 L, RDW Std Deviation 53.2 H, RDW Coeff of Nito 18.4 H, Plt Count 328, MPV 10.1 10/09/21 17:16: POC Glucose 115 H 10/09/21 21:35: POC Glucose 116 H 10/10/21 06:01: WBC 13.2 H, RBC 2.82 L, Hgb 6.5 L, Hct 22.7 L, MCV 80.5 L, MCH 23.0 L, MCHC 28.6 L, RDW Std Deviation 55.0 H, RDW Coeff of Nito 19.0 H, Plt Count 318, MPV 10.5 10/10/21 06:41: POC Glucose 133 H Micro: Microbiology 10/08/21 20:45 Nasal Secretion SARS-CoV-2 Antigen (Rapid) - Final Physical Exam Narrative Awake, alert, no acute distress. Minimal vaginal bleeding on peripad Assessment & Plan (1) Abnormal uterine bleeding (AUB): (2) Fe deficiency anemia: QUALIFIERS: Iron deficiency anemia type: chronic blood loss Qualified Code(s): D50.0 - Iron deficiency anemia secondary to blood loss (chronic) (3) Acute blood loss anemia: PLAN: Patient has chronic with acute blood loss anemia. Status post transfusion of 4 units of packed red blood cells. Hemoglobin is still 6.5. Will transfer use 2 more units before discharge home. Minimal vaginal bleeding overnight. Discussed with the patient the importance of notifying my office immediately if vaginal bleeding becomes heavier than 1 normal peripad per hour. In addition, recommend that she take a multivitamin daily. Patient is receptive to this. Received IV iron transfusion yesterday. Push fluids the next few days. Awaiting pathology from D&C specimen. If benign, hopefully the levonorgestrel IUD will prevent patient from bleeding heavily in the future and requiring further intervention. Patient states understanding and agreement with the plan.
--- NOTE | 2021-10-10 08:38 | PCM.DC ---
Discharge Instructions Diet Discharge Diet: No restrictions Activity May resume sexual activity in: 2 weeks Lifting Restrictions: none Dressing / Incision Call your doctor if your incision/area has: Sudden Increased Bleeding and Foul Smelling Discharge Call your doctor if you observe: Fever of 101 or Higher and Using more than 1 pad per hour (for 2 hrs in a row) Follow Up Care Please Follow Up With: Kenisha Carroll MD When: 2-4 weeks or as needed. Call [phone] to make an appointment or with any concerns. Test Results: Test results from this visit will be discussed in further detail at your follow-up appointment, if applicable. Discharge Plan Admission Admit Date/Time: 10/08/21 18:51 Primary Reason for Your Visit: Anemia due to abnormal uterine bleeding Attending Provider: Esme Pool Primary Care Provider: Franco Bardales Discharge Orders/Prescriptions Prescriptions: Continued sertraline 100 MG tablet 100 mg PO DAILY RF: 0 montelukast 10 MG tablet 10 mg PO DAILY RF: 0 naproxen sodium 220 MG tablet 440 mg PO Q12H PRN PRN (Reason: Headache) RF: 0 acetaminophen 325 MG tablet 650 mg PO Q6H PRN PRN (Reason: Mild Pain (scale 0-3)/T>100.7) RF: 0 albuterol sulfate 2.5 MG/3 ML solution for nebulization 2.5 mg Inhalation Q2H PRN PRN (Reason: dyspnea, wheezing) Qty: 1 RF: 0 levothyroxine 300 mcg tablet 200 mcg PO DAILY RF: 0 promethazine 25 MG tablet 25 mg PO Q4H PRN PRN (Reason: Nausea/Vomiting) RF: 0 nystatin [Nyamyc] 1 APPLIC bottle 1 applic topical 4X/DAY RF: 0 metformin 500 MG tablet 250 mg PO BIDCM RF: 0 bupropion HCl 150 MG tablet extended release 24 hr 150 mg PO DAILY RF: 0 pramipexole 0.5 mg tablet 0.5 mg PO QHS PRN PRN (Reason: restless legs) RF: 0 Discontinued medroxyprogesterone 150 mg/mL suspension IM RF: 0 Referrals / Follow Up: Franco Bardales DO [Primary Care Provider] - Disposition Disposition (needs filled in before D/C Order can be placed): Home, Self Care
[2021-10-10] MEDS: Enoxaparin 40 MG/0.4 ML Syringe SC (08:57)
[2021-10-10] MEDS: Pantoprazole Sodium 40 MG Tablet PO (08:57)
[2021-10-10] MEDS: buPROPion (XL) 150 MG TABLET.XL PO (08:57)
[2021-10-10] MEDS: Nystatin Powder 15gm Bottle 1 APPLIC TOPICAL (08:57)
[2021-10-10] MEDS: Sertraline 100 MG Tablet PO (08:57)
[2021-10-10] MEDS: Montelukast 10 MG Tablet PO (08:57)
[2021-10-10] MEDS: hydroCHLOROthiazide 25 MG Tablet PO (08:57)
[2021-10-10] MEDS: Docusate Sodium 100 MG Capsule PO (08:57)
[2021-10-10] MEDS: 0.9% Saline Lock 10 ML Syringe IV ×2 (09:01→11:48)
--- NOTE | 2021-10-10 09:09 | CPS ---
Patient wore 2L NC H.S.
[2021-10-10] MEDS: Acetaminophen 325 MG Tablet 650 MG PO (10:08)
[2021-10-10] MEDS: Furosemide 20 MG/2 ML VIAL IV (11:37)
[2021-10-10] MEDS: Insulin Lispro 100 UNIT/ML INSULN.PEN SC (11:37)
[2021-10-10 11:55] LABS: Bedside Glucose 194 mg/dL (70-110)
[2021-10-11 09:49] LABS: Pathologist Review Reviewed
== END 2021-10-10 16:00 | disposition home or self-care (01) | DRG 952 ==
LOC: ED 17:19 → PCU 23:02
PROVIDERS: Anesthesiology; Obstetrics & Gynecology; Admitting Provider Obstetrics & Gynecology; Emergency Provider Emergency Medicine; PCP Student in an Organized Health Care Education/Training Program; Visit Provider Obstetrics & Gynecology
PROC: 0UDB8ZZ Extraction of Endometrium, Via Natural or Artificial Opening Endoscopic (ICD-10-PCS; CPT 58558; principal; 2021-10-09 11:50)
DX: D62 Acute posthemorrhagic anemia (principal); K90.9 Intestinal malabsorption, unspecified; E66.01 Morbid (severe) obesity due to excess calories; Z68.45 Body mass index [BMI] 70 or greater, adult; I10 Essential (primary) hypertension; E03.9 Hypothyroidism, unspecified; J45.909 Unspecified asthma, uncomplicated; K21.9 Gastro-esophageal reflux disease without esophagitis; G47.33 Obstructive sleep apnea (adult) (pediatric); F41.9 Anxiety disorder, unspecified; N93.9 Abnormal uterine and vaginal bleeding, unspecified; R73.03 Prediabetes; Z20.822 Contact with and (suspected) exposure to COVID-19; F32.A Depression, unspecified; Z79.84 Long term (current) use of oral hypoglycemic drugs; Z79.1 Long term (current) use of non-steroidal anti-inflammatories (NSAID); Z79.890 Hormone replacement therapy; Z79.899 Other long term (current) drug therapy
CPT/HCPCS: 36415; 76830; 80048; 82962; 83036; 84443; 84703; 85025; 85027; 85610; 85730; 86850; 86900; 86901; 86920; 86922; 87426; 88305; 93005; 94762; 99251; 99283; J7030; J7050; J7120; P9016; A4216; G0463; J1410; J1940; J2405; J2916

== ENCOUNTER 2021-12-31 16:48 | Observation (INO) | payer MEDICAID, SELFPAY ==
[2021-12-31 16:48] VITALS: BMI 92.2
--- NOTE | 2021-12-31 18:15 | PCM.HP.STD ---
HPI - General General Date of Admission: 12/31/21 HPI Narrative ROSALIE RUFF, is a 46 F who presents for increased vaginal bleeding. Patient was seen in the office by and was admitted in October for the same issue. On her prior admission the patient received 6 units of PRBC's, IV iron and had a hysteroscopy with D&C and Liletta IUD placement. Patient was doing better but then 2 days ago the bleeding started to increase. In the office today hb was 7.4. Patient reported feeling tired and somewhat SOB. She is unsure about the IUD possibly falling out and denies seeing it. Patient took 4 tabs of lysteda today and there has been no improvement in her bleeding. [facility] Medical History (Updated 12/31/21 @ 18:[address] Esme Polo MD) Abdominal panniculus, symptomatic Abnormal uterine bleeding (AUB) Acid reflux Acute blood loss anemia Allergic rhinitis Anemia Anxiety Anxiety Anxiety and depression Asthma Asthma Chronic blood loss anemia Depression Depression Diabetes Difficulty swallowing Encounter for adjustment or management of vascular access device Erythema intertrigo Former smoker H/O staphylococcal infection Hemorrhoids History of stress test Hypertension Hypothyroid Hypothyroidism Incisional hernia Nausea & vomiting Necrotizing soft tissue infection Obesity, Class III, BMI 40-49.9 (morbid obesity) MARCE (obstructive sleep apnea) Panniculitis Prediabetes Severe sepsis Skin ulcer of abdominal wall with fat layer exposed Sleep apnea Sleep apnea Super-super obese Home Medications montelukast 10 mg PO DAILY 03/08/18 [History Last Taken 12/31/21 10:00] sertraline 100 mg PO DAILY 03/08/18 [History Last Taken 12/31/21 10:00] naproxen sodium 440 mg PO Q12H PRN PRN 05/06/18 [History Last Taken 05/04/18] acetaminophen 650 mg PO Q6H PRN PRN tab 05/19/18 [Rx Last Taken Unknown] albuterol sulfate 2.5 mg INHALATION Q2H PRN PRN #1 box 05/19/18 [Rx Last Taken Unknown] promethazine 25 mg PO Q4H PRN PRN tab 09/26/18 [Rx Last Taken Unknown] levothyroxine 300 mcg tablet 200 mcg PO DAILY tab 11/19/18 [History Last Taken Unknown] nystatin [Nyamyc] 1 applic TOPICAL 4X/DAY 11/29/18 [History Last Taken Unknown] bupropion HCl 150 mg PO DAILY 08/19/19 [History Last Taken 12/30/21 10:00] metformin 250 mg PO BIDCM 08/19/19 [History Last Taken 12/31/21 08:00] pramipexole 0.5 mg PO QHS PRN PRN 10/08/21 [History Last Taken Unknown] Allergy/AdvReac Type Severity Reaction Status Date / Time diphenhydramine HCl Allergy Hives Verified 10/08/21 11:25 [From Benadryl] metronidazole [From Flagyl] Allergy Rash Verified 10/08/21 11:25 venom-honey bee Allergy Anaphylaxis Verified 10/08/21 11:25 [bee venom (honey bee)] aspirin AdvReac Upset Verified 10/08/21 11:25 Stomach codeine AdvReac Other Verified 10/08/21 11:25 ibuprofen AdvReac Upset Verified 10/08/21 11:25 Stomach Penicillins AdvReac Nausea Verified 10/08/21 11:25 Family History Mother Asthma Arthritis Hypertension Thyroid disorder Ulcer Father Diabetes Arthritis Heart disease Hypertension Brother Diabetes Surgical History History of History of cholecystectomy Hx of abdominal surgery Hx of cholecystectomy Hx of tonsillectomy Social History Smoking Status: Never smoker second hand exposure: No alcohol intake: never substance use type: does not use caffeine: Yes what type of physical activity do you participate in: other details: OT and PT frequency: daily Vital Signs Vital Signs Vital Signs: Weight Weight: 488 lb 5.182 oz Body Mass Index (BMI) 92.2 Physical Exam Narrative 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 Bright red bleeding from vagina with small clots. About 12 cm diameter pool of blood on chux when patient moved off her wheelchair. Exam very limited d/t body habitus. Unable to visualize cervix or IUD strings during office exam. TVUS in office was not able to locate the IUD. Const alert and oriented x3 Constitutional Narrative: in moderate distress GI GI Narrative: Large pannus noted, large ventral hernia noted. 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 Neuro CN's II-XII intact bilaterally Assessment & Plan Assessment/Plan (1) Chronic blood loss anemia: PLAN: Will admit for blood transfusion (2 units ordered) and megace (40mg 4x per day). Patient discussed with ([facility]) after visit with in office today. A follow up plan is in her [facility] note for when she is discharged from [facility]. (2) Abnormal uterine bleeding (AUB): PLAN: Plan as above. Will make NPO at midnight in case surgical intervention needed tomorrow. (3) Obesity, Class III, BMI 40-49.9 (morbid obesity): PLAN: Patient with multiple medical problems. Home medications continued.
[2021-12-31 18:30] VITALS: BP 112/49; PULSE 103; RESP 18; TEMP 36.9; O2SAT 93
[2021-12-31 18:49] LABS: Absolute Lymphocyte Count 3.36 X10^3/uL (0.83-4.51); Absolute Neutrophil Count 8.5 X10^3/uL (2.0-7.7); Basophil# 0.05 X10^3/uL; Basophil% 0.4 % (0-1); Hematocrit 23.1 % (37-47); Hemoglobin 6.7 g/dL (12.0-15.0); Lymphocyte # 3.36 X10^3/ul (0.83-4.51); Lymphocyte % 25.6 % (19-41); Mean Corpuscular Hgb 22.7 pg (27.0-32.0); Mean Corpuscular Volume 78.3 fL (81-99); Mean Platelet Vol. 9.9 fl (6.2-12.0); Monocyte# 0.68 X10^3/uL; Monocyte% 5.2 % (0-10); NRBC Flagged by Analyzer 0.5 % (0-5); Neutrophil % 64.7 % (47-70); Platelet Count 250 K/mm3 (150-450); RBC Distribution Width CV 18.8 % (11.6-14.6); Red Blood Count 2.95 M/mm3 (4.2-5.4); White Blood Count 13.1 K/mm3 (4.4-11.0)
[2021-12-31] MEDS: 0.9% Saline Lock 10 ML Syringe IV ×2 (18:58→21:19)
[2021-12-31 19:10] LABS: ALB/GLOB Ratio 0.8 RATIO (0.9-2.4); AST(SGOT) 14 U/L (15-37); Alanine Aminotransfer ALT/SGPT 18 U/L (13-56); Albumin, Serum 3.1 g/dL (3.2-5.0); Alkaline Phosphatase 40 U/L (45-117); Anion Gap 5 (5-15); BUN 8 mg/dL (7-18); BUN/Creat Ratio 9.7 RATIO (10-20); Calcium,Total 8.3 mg/dL (8.5-10.1); Chloride 104 mmol/L (98-107); Creatinine, Serum 0.82 mg/dL (0.55-1.02); EST Glomerular Filtration Rate 79 mL/min (>60); Est Glom Filt Rate - Afr Amer 96 mL/min (>60); Estimated Creatinine Clearance 64.69 ml/min; Globulin 3.7 g/dL (2.2-4.2); Glucose 177 mg/dL (74-106); Protein, Total 6.8 g/dL (6.4-8.2); Sodium Level 139 mmol/L (136-145)
[2021-12-31 21:01] VITALS: BP 108/60; PULSE 99; RESP 18; TEMP 37.3; O2SAT 97
[2021-12-31] MEDS: Nystatin Powder 15gm Bottle 1 APPLIC TOPICAL (21:18)
[2021-12-31] MEDS: Megestrol 40 MG Tablet PO (21:26)
[2021-12-31 21:30] VITALS: BP 124/47; PULSE 98; RESP 18; TEMP 36.6; O2SAT 95
[2021-12-31 22:03] VITALS: PULSE 102; RESP 16
[2021-12-31] MEDS: Albuterol 2.5 MG/3 ML VIAL.NEB. INHALATION (22:03)
[2021-12-31 22:26] VITALS: BP 105/60; PULSE 101; RESP 20; TEMP 36.3; O2SAT 94
[2021-12-31 23:28] VITALS: BP 109/62; PULSE 94; RESP 18; TEMP 37.1; O2SAT 95
[2022-01-01] VITALS (8 sets, daily range): BP systolic 102–134; BP diastolic 57–72; PULSE 88–100; RESP 18–20; TEMP 36.6–37.1; O2SAT 93–98
[2022-01-01] MEDS: 0.9% Saline Lock 10 ML Syringe IV ×2 (00:22→03:22)
[2022-01-01] MEDS: Levothyroxine 100 MCG Tablet 200 MCG PO (04:45)
[2022-01-01 05:25] LABS: Absolute Lymphocyte Count 3.46 X10^3/uL (0.83-4.51); Absolute Neutrophil Count 7.6 X10^3/uL (2.0-7.7); Basophil# 0.09 X10^3/uL; Basophil% 0.7 % (0-1); Eosinophil# 0.44 X10^3/uL; Eosinophils% 3.5 % (0-5); Hemoglobin 8.3 g/dL (12.0-15.0); Lymphocyte # 3.46 X10^3/ul (0.83-4.51); Lymphocyte % 27.8 % (19-41); Mean Corp Hgb Conc 30.7 g/dL (32-36); Mean Corpuscular Hgb 24.4 pg (27.0-32.0); Mean Corpuscular Volume 79.4 fL (81-99); Mean Platelet Vol. 10.7 fl (6.2-12.0); Monocyte# 0.69 X10^3/uL; Monocyte% 5.5 % (0-10); NRBC Flagged by Analyzer 0.9 % (0-5); Neutrophil % 61.2 % (47-70); Platelet Count 209 K/mm3 (150-450); RBC Distribution Width CV 17.9 % (11.6-14.6); RBC Distribution Width SD 51.2 fl (35.1-43.9); White Blood Count 12.4 K/mm3 (4.4-11.0)
--- NOTE | 2022-01-01 08:45 | PCM.PN.OB ---
Subjective Subjective Doing well this morning. Some lightheadedness with ambulation. She feels her bleeding has only minimally improved but has received 1 dose of Megace so far. Objective Data Objective Data Vital Signs: Vital Signs Temp Pulse Resp BP Pulse Ox 98 F 91 18 112/57 L 93 01/01/22 03:21 01/01/22 03:21 01/01/22 03:21 01/01/22 03:21 01/01/22 03:21 Oxygen Delivery Method Room Air Weight: 488 lb 5.182 oz Body Mass Index (BMI) 92.2 Intake & Output: Intake and Output for Last 24 Hours 12/30/21 12/31/21 01/01/22 23:59 23:59 23:59 Intake Total 0 / 500 1300 / 1300 Balance 0 / 500 1300 / 1300 Lab / Micro Data Result Diagrams: 01/01/22 04:45 12/31/21 18:35 Labs: Laboratory Results - last 24 hr 12/31/21 18:35: WBC 13.1 H, RBC 2.95 L, Hgb 6.7 L, Hct 23.1 L, MCV 78.3 L, MCH 22.7 L, MCHC 29.0 L, RDW Std Deviation 53.0 H, RDW Coeff of Nito 18.8 H, Plt Count 250, MPV 9.9, Immature Gran % (Auto) 1.100 H, Neut % (Auto) 64.7, Lymph % (Auto) 25.6, [place] % (Auto) 5.2, Eos % (Auto) 3.0, Baso % (Auto) 0.4, Absolute Neuts (auto) 8.5 H, Absolute Lymphs (auto) 3.36, Nucleated RBC % 0.5 12/31/21 18:35: Sodium 139, Potassium 4.0, Chloride 104, Carbon Dioxide 30.0, Anion Gap 5, BUN 8, Creatinine 0.82, Estim Creat Clear Calc 64.69, Est GFR (MDRD) Af Amer 96, Est GFR (MDRD) Non-Af 79, BUN/Creatinine Ratio 9.7 L, Glucose 177 H, Calcium 8.3 L, Total Bilirubin 0.40, AST 14 L, ALT 18, Alkaline Phosphatase 40 L, Total Protein 6.8, Albumin 3.1 L, Globulin 3.7, Albumin/Globulin Ratio 0.8 L 12/31/21 18:35: Blood Type A POSITIVE, Antibody Screen NEGATIVE, Crossmatch See Detail 01/01/22 04:45: WBC 12.4 H, RBC 3.40 L, Hgb 8.3 L, Hct 27.0 L, MCV 79.4 L, MCH 24.4 L, MCHC 30.7 L D, RDW Std Deviation 51.2 H, RDW Coeff of Nito 17.9 H, Plt Count 209, MPV 10.7, Immature Gran % (Auto) 1.300 H, Neut % (Auto) 61.2, Lymph % (Auto) 27.8, [place] % (Auto) 5.5, Eos % (Auto) 3.5, Baso % (Auto) 0.7, Absolute Neuts (auto) 7.6, Absolute Lymphs (auto) 3.46, Nucleated RBC % 0.9 Physical Exam Const no apparent distress General Appearance: comfortable Assessment & Plan (1) Abnormal uterine bleeding (AUB): PLAN: Appropriate rise in hemoglobin after 2 units of packed red blood cells. Bleeding only minimally improved per patient. We will continue to monitor bleeding today after additional doses of Megace. Keep n.p.o. for now and will check in around lunchtime on patient's bleeding. Will check a CBC later this evening. Possible discharge today if bleeding improves and repeat CBC stable. Discussed importance of weight loss with patient. Discussed resources available through the [facility] such as the bariatric [place]. (2) Acute blood loss anemia: (3) Chronic blood loss anemia: (4) Obesity, Class III, BMI 40-49.9 (morbid obesity):
--- NOTE | 2022-01-01 10:02 | NURSING ---
This nurse aware of morning Vital Signs recently done by Whitney Nguyen RN
[2022-01-01] MEDS: Megestrol 40 MG Tablet PO ×3 (10:07→17:32)
--- NOTE | 2022-01-01 12:26 | NURSING ---
This Nurse assisted pt to the Bathroom. Pt voided. No clots were noted. Lyly Pad changed for only a small amt of bright red drainage noted.
[2022-01-01 14:02] LABS: Bedside Glucose 124 mg/dL (74-106)
[2022-01-01 14:25] LABS: Hematocrit 26.3 % (37-47); Mean Corp Hgb Conc 30.4 g/dL (32-36); Mean Corpuscular Hgb 24.2 pg (27.0-32.0); Mean Corpuscular Volume 79.7 fL (81-99); Mean Platelet Vol. 9.7 fl (6.2-12.0); Platelet Count 258 K/mm3 (150-450); RBC Distribution Width CV 17.8 % (11.6-14.6); RBC Distribution Width SD 51.3 fl (35.1-43.9); White Blood Count 12.4 K/mm3 (4.4-11.0)
[2022-01-01] MEDS: metFORMIN HCl 500 MG Tablet 250 MG PO (17:31)
--- NOTE | 2022-01-01 17:40 | PCM.DC ---
Discharge Instructions Diet Discharge Diet: No restrictions Activity Discharge Activity: Return to Normal Activity Weight Bearing Status: Weight bearing as tolerated Lifting Restrictions: none Additional Activity Instructions:: Continue taking the Megace 4 times a day at home. Call our office tomorrow 01/02/22 with an update on your bleeding. If you are ever saturating 1 pad per hour for 2 hours or more, call or go to the ER. If you ever have lightheadedness or dizziness, also call or go to the ER. Dressing / Incision Call your doctor if you observe: Using more than 1 pad per hour, Dizziness, Fainting spells, Chest pain, Increased palpitations (irregular heartbeat) and Uncontrolled pain Follow Up Care Please Follow Up With: Kenisha Carroll MD When: 1 week Test Results: Test results from this visit will be discussed in further detail at your follow-up appointment, if applicable. Discharge Plan Admission Admit Date/Time: 12/31/21 16:48 Primary Reason for Your Visit: bleeding Attending Provider: Esme Pool Primary Care Provider: Franco Bardales Discharge Orders/Prescriptions Prescriptions: New megestrol 40 mg Tablet 40 mg PO 4X/DAY Qty: 100 RF: 2 Continued sertraline 100 MG tablet 100 mg PO DAILY RF: 0 montelukast 10 MG tablet 10 mg PO DAILY RF: 0 naproxen sodium 220 MG tablet 440 mg PO Q12H PRN PRN (Reason: Headache) RF: 0 acetaminophen 325 MG tablet 650 mg PO Q6H PRN PRN (Reason: Mild Pain (scale 0-3)/T>100.7) RF: 0 albuterol sulfate 2.5 MG/3 ML solution for nebulization 2.5 mg Inhalation Q2H PRN PRN (Reason: dyspnea, wheezing) Qty: 1 RF: 0 levothyroxine 300 mcg tablet 200 mcg PO DAILY RF: 0 promethazine 25 MG tablet 25 mg PO Q4H PRN PRN (Reason: Nausea/Vomiting) RF: 0 nystatin [Nyamyc] 1 APPLIC bottle 1 applic topical 4X/DAY RF: 0 metformin 500 MG tablet 250 mg PO BIDCM RF: 0 bupropion HCl 150 MG tablet extended release 24 hr 150 mg PO DAILY RF: 0 pramipexole 0.5 mg tablet 0.5 mg PO QHS PRN PRN (Reason: restless legs) RF: 0 Referrals / Follow Up: Franco Bardales DO [Primary Care Provider] - Disposition Disposition (needs filled in before D/C Order can be placed): Home, Self Care
== END 2022-01-01 19:10 | disposition home or self-care (01) ==
PROVIDERS: Obstetrics & Gynecology; Admitting Provider Obstetrics & Gynecology; PCP Student in an Organized Health Care Education/Training Program; Visit Provider Obstetrics & Gynecology
DX: N93.9 Abnormal uterine and vaginal bleeding, unspecified (principal); Z68.45 Body mass index [BMI] 70 or greater, adult; E11.9 Type 2 diabetes mellitus without complications; D50.0 Iron deficiency anemia secondary to blood loss (chronic); I10 Essential (primary) hypertension; R42 Dizziness and giddiness; J45.909 Unspecified asthma, uncomplicated; K21.9 Gastro-esophageal reflux disease without esophagitis; E03.9 Hypothyroidism, unspecified; F41.9 Anxiety disorder, unspecified; F32.A Depression, unspecified; Z79.899 Other long term (current) drug therapy; Z79.890 Hormone replacement therapy; Z79.84 Long term (current) use of oral hypoglycemic drugs; Z87.891 Personal history of nicotine dependence; E66.9 Obesity, unspecified; G47.33 Obstructive sleep apnea (adult) (pediatric)
CPT/HCPCS: G0379; 36415; 36430; 80053; 82962; 85025; 85027; 86644; 86850; 86900; 86901; 86920; 86922; 94640; 99218; J7040; P9016; P9040; A4216; G0378